=== PATIENT | male | born 1950 | race Caucasian/White ===

== ENCOUNTER → 2017-08-02 11:04 | Outpatient (CLI) | payer MEDICARE, OTHER, SELFPAY ==
--- NOTE | 2017-08-03 09:40 | PFT ---
INTRODUCTION: The patient is a 67-year-old male currently under the care of myself the presents for pulmonary function testing secondary to a diagnosis of COPD. Respiratory therapy reports good patient effort and reports no other concerns. Bronchodilators were used during testing. INTERPRETATION: Forced expiration spirometry demonstrates the presence of a mild large airways obstructive ventilatory defect. There was no significant response to aerosolized bronchodilators, based upon strict ATS criteria. Spirograms are of good quality and do not plateau indicating slow emptying of the lungs. Body plethysmography was performed and reveals lung volumes to be within normal limits. Diffusing capacity by single breath CO is within normal limits at 85% of predicted. There has been interval improvement in the patient's breathing test since they were last completed in 2016. IMPRESSION: These pulmonary function studies demonstrate the presence of an irreversible mild large airways obstructive ventilatory defect. There has been interval improvement the patient's PFTs since 2016.
== END ==
PROVIDERS: Family Provider Preventive Medicine Occupational Medicine; PCP Preventive Medicine Occupational Medicine; Visit Provider Internal Medicine Critical Care Medicine
DX: G47.33 Obstructive sleep apnea (adult) (pediatric) (principal); E66.9 Obesity, unspecified; J44.9 Chronic obstructive pulmonary disease, unspecified
CPT/HCPCS: 94060; 94726; 94729

== ENCOUNTER → 2017-08-30 09:55 | Outpatient (CLI) | payer MEDICARE, OTHER, SELFPAY ==
[2017-08-30 10:51] LABS: Microalbumin,Random Urine 24.4 mg/L (NO RANGE EST.)
[2017-08-30 10:56] LABS: Hemoglobin A1c 7.1 % (4.2-6.3)
[2017-08-30 11:10] LABS: ALB/GLOB Ratio 0.8 RATIO (0.9-2.4); AST(SGOT) 19 U/L (15-37); Alanine Aminotransfer ALT/SGPT 33 U/L (16-61); Albumin, Serum 3.4 g/dL (3.2-5.0); Alkaline Phosphatase 110 U/L (45-117); Anion Gap 11 (5-15); BUN 18 mg/dL (7-18); BUN/Creat Ratio 21.2 RATIO (10-20); Calcium,Total 8.6 mg/dL (8.5-10.1); Chloride 102 mmol/L (98-107); Cholesterol 87 mg/dL (200); Creatinine, Serum 0.85 mg/dL (0.70-1.30); EST Glomerular Filtration Rate 96 mL/min (>60); Est Glom Filt Rate - Afr Amer 116 mL/min (>60); Globulin 4.4 g/dL (2.2-4.2); Glucose 124 mg/dL (74-106); High Density Lipoprotein 33 mg/dL; Potassium 4.1 mmol/L (3.5-5.1); Protein, Total 7.8 g/dL (6.4-8.2); Sodium Level 140 mmol/L (136-145); Triglycerides 45 mg/dL; Very Low Density Lipoprotein 9 mg/dL (5-40)
== END ==
PROVIDERS: Family Provider Family Medicine; PCP Family Medicine; Visit Provider Internal Medicine Endocrinology, Diabetes & Metabolism
DX: E11.21 Type 2 diabetes mellitus with diabetic nephropathy (principal); E78.2 Mixed hyperlipidemia
CPT/HCPCS: 36415; 80053; 80061; 82043; 82570; 83036

== ENCOUNTER → 2017-12-07 09:43 | Outpatient (CLI) | payer MEDICARE, OTHER, SELFPAY ==
[2017-12-07 10:57] LABS: Hemoglobin A1c 6.6 % (4.2-6.3)
[2017-12-07 11:22] LABS: ALB/GLOB Ratio 0.7 RATIO (0.9-2.4); AST(SGOT) 20 U/L (15-37); Alanine Aminotransfer ALT/SGPT 36 U/L (16-61); Albumin, Serum 3.2 g/dL (3.2-5.0); Alkaline Phosphatase 99 U/L (45-117); Anion Gap 11 (5-15); BUN 21 mg/dL (7-18); BUN/Creat Ratio 23.3 RATIO (10-20); Calcium,Total 9.1 mg/dL (8.5-10.1); Chloride 101 mmol/L (98-107); EST Glomerular Filtration Rate 90 mL/min (>60); Est Glom Filt Rate - Afr Amer 108 mL/min (>60); Globulin 4.3 g/dL (2.2-4.2); Glucose 158 mg/dL (74-106); Protein, Total 7.5 g/dL (6.4-8.2); Sodium Level 140 mmol/L (136-145)
== END ==
PROVIDERS: Family Provider Family Medicine; PCP Family Medicine; Visit Provider Internal Medicine Endocrinology, Diabetes & Metabolism
DX: E11.42 Type 2 diabetes mellitus with diabetic polyneuropathy (principal)
CPT/HCPCS: 36415; 80053; 83036

== ENCOUNTER → 2018-01-10 12:32 | Outpatient (CLI) | payer MEDICARE, OTHER, SELFPAY ==
[2018-01-10 14:06] LABS: PSA,Total - Annual Screen 1.21 ng/mL (0.00-4.00)
== END ==
PROVIDERS: Family Provider Family Medicine; PCP Family Medicine; Visit Provider Family Medicine
DX: Z12.5 Encounter for screening for malignant neoplasm of prostate (principal); R39.11 Hesitancy of micturition
CPT/HCPCS: 36415; 84153; G0103

== ENCOUNTER → 2018-03-31 09:55 | Outpatient (CLI) | payer MEDICARE, OTHER, SELFPAY ==
[2018-02-20 14:47] VITALS: BMI 48.7
[2018-03-31 11:14] LABS: ALB/GLOB Ratio 0.8 RATIO (0.9-2.4); AST(SGOT) 20 U/L (15-37); Alanine Aminotransfer ALT/SGPT 42 U/L (16-61); Albumin, Serum 3.3 g/dL (3.2-5.0); Alkaline Phosphatase 118 U/L (45-117); Anion Gap 9 (5-15); BUN 18 mg/dL (7-18); BUN/Creat Ratio 18.4 RATIO (10-20); Calcium,Total 8.6 mg/dL (8.5-10.1); Chloride 101 mmol/L (98-107); Creatinine, Serum 0.98 mg/dL (0.70-1.30); EST Glomerular Filtration Rate 82 mL/min (>60); Est Glom Filt Rate - Afr Amer 99 mL/min (>60); Globulin 4.4 g/dL (2.2-4.2); Glucose 175 mg/dL (74-106); Protein, Total 7.7 g/dL (6.4-8.2); Sodium Level 137 mmol/L (136-145)
== END ==
PROVIDERS: Family Provider Family Medicine; PCP Family Medicine; Referring Provider Internal Medicine Endocrinology, Diabetes & Metabolism; Visit Provider Internal Medicine Endocrinology, Diabetes & Metabolism
DX: E11.21 Type 2 diabetes mellitus with diabetic nephropathy (principal)
CPT/HCPCS: 36415; 80053; 83036

== ENCOUNTER → 2018-06-29 09:50 | Outpatient (CLI) | payer MEDICARE, OTHER, SELFPAY ==
[2018-05-04 09:45] VITALS: BMI 48.9
[2018-06-29 11:06] LABS: ALB/GLOB Ratio 0.7 RATIO (0.9-2.4); AST(SGOT) 44 U/L (15-37); Alanine Aminotransfer ALT/SGPT 38 U/L (16-61); Albumin, Serum 3.1 g/dL (3.2-5.0); Alkaline Phosphatase 106 U/L (45-117); Anion Gap 5 (5-15); BUN 23 mg/dL (7-18); BUN/Creat Ratio 23.4 RATIO (10-20); Calcium,Total 8.6 mg/dL (8.5-10.1); Chloride 104 mmol/L (98-107); Creatinine, Serum 0.98 mg/dL (0.70-1.30); EST Glomerular Filtration Rate 81 mL/min (>60); Est Glom Filt Rate - Afr Amer 98 mL/min (>60); Globulin 4.7 g/dL (2.2-4.2); Glucose 167 mg/dL (74-106); Potassium 4.4 mmol/L (3.5-5.1); Protein, Total 7.8 g/dL (6.4-8.2); Sodium Level 134 mmol/L (136-145)
[2018-06-29 11:08] LABS: Hemoglobin A1c 7.8 % (4.2-6.3)
== END ==
PROVIDERS: Family Provider Family Medicine; PCP Family Medicine; Referring Provider Internal Medicine Endocrinology, Diabetes & Metabolism; Visit Provider Internal Medicine Endocrinology, Diabetes & Metabolism
DX: E11.21 Type 2 diabetes mellitus with diabetic nephropathy (principal)
CPT/HCPCS: 80053; 83036

== ENCOUNTER → 2018-07-03 16:07 | Outpatient (CLI) | payer MEDICARE, OTHER, SELFPAY ==
[2018-05-04 09:45] VITALS: BMI 48.9
--- NOTE | 2018-07-03 16:10 | MRI_ITS ---
STUDY: MRI RIGHT ANKLE WITHOUT CONTRAST REASON FOR EXAM: Chronic heel pain for years, evaluate for Achilles tendinitis. TECHNIQUE: Standardized fat and water weighted pulse sequences were obtained in all 3 orthogonal planes. COMPARISON: None. FINDINGS: There is edema in the subcutis adipose space. Normal posterior tibialis tendon. Normal flexor digitorum longus tendon. Normal flexor hallucis longus tendon. There is a longitudinal split of the perimalleolar peroneus brevis tendon (T1 axial images 13-17). Normal peroneus longus tendon. Normal tibialis anterior tendon. Normal extensor hallucis longus tendon. Normal extensor digitorum longus tendons. There is mild insertional Achilles tendinosis and a small low-grade partial tear of the anterior surface of the Achilles tendon insertion (inversion recovery sagittal images 13, 14) measuring 0.7 cm in length. There is very mild retrocalcaneal bursitis (inversion recovery axial series 10 image 20). There is a small posterior calcaneal enthesophyte (T1 sagittal image 13). Normal plantar fascia. There is a small plantar calcaneal enthesophyte. There is atrophy with fat replacement of the abductor digiti minimi muscle (T1 sagittal images 6-8). Normal distal tibiofibular syndesmotic ligamentous complex. There is a chronic tear of the anterior talofibular ligament (T2 axial image 15). Normal calcaneofibular and posterior talofibular ligaments. Normal subtalar ligaments and sinus tarsi. Normal deltoid ligamentous complexes. Normal plantar calcaneonavicular (spring) ligament. Normal tibiotalar articulation. Normal talar dome. Normal subtalar articulations. Normal talonavicular articulation. Normal calcaneocuboid articulation. Normal navicular-cuneiform articulations. There is a small subchondral cyst in the distal cuboid (inversion recovery sagittal image 8). MRI/Lower Ext Joint Only (Routine) IMPRESSION: Mild insertional Achilles tendinosis with small low-grade insertional Achilles tendon tear and very mild retrocalcaneal bursitis. Longitudinal split of the peroneus brevis tendon. Chronic tear of the anterior talofibular ligament. Atrophy of the abductor digiti minimi muscle. No calcaneal stress fracture. Electronically Signed: Eric Rey MD at 7:54 EDT Tel , Service support ,
== END ==
PROVIDERS: Family Provider Family Medicine; PCP Family Medicine; Referring Provider Podiatrist; Visit Provider Podiatrist
DX: M76.61 Achilles tendinitis, right leg (principal); M77.31 Calcaneal spur, right foot
CPT/HCPCS: 73721

== ENCOUNTER 2018-09-13 11:00 | Outpatient (RCR) | payer MEDICARE, OTHER, SELFPAY ==
[2018-05-04 09:45] VITALS: BMI 48.9
--- NOTE | 2018-08-16 14:02 | HP.PTEVAL ---
Patient's Visit Information CYN MARTINEZ Jr. is a 68 year old M referred to Physical Therapy by Alec Hicks DPM with a diagnosis of LEFT ACHILLLES ACHILLES TENDONITIS. Date of Evaluation: 08/16/18 Physical Therapist: Porfirio Sánchez PT, Cert MDT, OCS - Visit Plan Frequency: 2x /Week Duration: 4 Weeks Plan: INTERVENTIONS US /STM HAWK ,CALF STICK ,ESTIM/CP ,GRADED STRENGTHENING - Subjective Findings: This 68 y/o male presents to physical therapy left achilles tendonitis . Patient has had tendonitis several years. Patient had MRI showed spur ,partial teat. Patient tried PT in past. Patient also had EPAP 6 treatments.Patient location achilles tendon sharp pain. Aggraveting symptoms standing ,walking. Symptoms better with rest.Denies parathesia/ Patient has comorbities DM. Patient condition affects QOL. Patient symptoms worse with ADL'S and housework tasks. VOCATION: retired. SOCAIL: - Pain Left Ankle Pain Intensity (Out of 10): 8 Pain Intensity Range: 10 - Objective POSTURE: pes planus. NEURO: denies parathesia/tingling. PALAPTION: tender achilles tendon. GAIT: antalgic gait left side. AROM: DF 5 degrres,PF 65 degrees,inversion 45 degrees,10 eversion. MMT: anterior tibials 4/5 ,perneous/posterior tibials,4/5 G-S 4/5. PROPRIOCEPTION: impaired - Goals Goal 1:: Patient to be Independant with HEP Goal Time Frame: 4-6 Weeks Goal 2:: Patient to decrease lumbar pain by 50% or greater to improve function with walking. Goal Time Frame: 4-6 Weeks Goal 3:: Paatient improve LFES score 10 points to improve QOL. Goal Time Frame: 4-6 Weeks Goal 4:: Patient to increase strength G-S to 4/5 to improve gait. Goal Time Frame: 4-6 Weeks Goal 5:: Patient able to perform ADL'S and houswork tasks with min limitations with waalking/standing. Goal Time Frame: 4-6 Weeks - Rehabilitation Potential Physical Therapy Diagnosis: This patient has achilles tendon tendonitis impairs walking ,standing ,with weakness pain affect ADL'S and function . Rehabilitation Potential: Good - Anticipated Interventions Patient/Client Instruction: Educate patient on: Condition, Plan of Care For the Purpose of:: To decrease pain, To increase ROM, To improve muscle performance and motor function, To increase tolerance to activity/condition/position, To improve performance and independence with ADL's, To improve health of tissue, To decrease soft tissue restriction, To increase flexibility/ROM, To improve ability to perform tasks related to life management Therapeutic Exercise to Include: Strength training, Flexibilty training, Active ROM Comment: ANKLE For the Purpose of:: To decrease pain, To increase ROM, To improve muscle performance and motor function, To improve ability to perform ADL's, To increase tolerance to activity/condition/position, To improve ability of physical actions for home/community/work/leisure, To decrease soft tissue restriction, To increase flexibility/ROM, To improve endurance, To reduce risk of recurrence, To improve ability to perform tasks related to life management Manual Therapy Techniques to Include: Mobilization Comment: HAWK For the Purpose of:: To decrease pain, To increase ROM, To improve health of tissue, To decrease soft tissue restriction, To increase flexibility/ROM TENS: Yes IF ES: Yes Cryotherapy (ice pack, ice massage): Yes Thermo therapy (hot pack): Yes Ultrasound (thermal/non thermal): Yes For the Purpose of:: To decrease pain, To increase ROM, To improve nutrient delivery to tissue, To increase oxygenation perfusion Thank you for the opportunity to evaluate your patient. For Medicare and Medicare HMO plans, please review the plan of care and approve it. It will need to be FAXED BACK to us at [phone] for Medicare purposes. For Medicare only, by signing this I certify the plan of care. Please let me know if there are questions or concerns regarding this plan of care. Physician Signature: Date:
--- NOTE | 2018-09-13 11:34 | HP.PTDCSUM ---
HP - PT D/C Summary It has been my pleasure to treat CYN MARTINEZ Jr. under orders from Alec Hicks DPM, for the diagnosis of LEFT ACHILLLES ACHILLES TENDONITIS for a total of 8 visit(s). Discharge Date: Please see the following information for a summary of their discharge status. - Subjective Subjective: Doing alot better. walking and and ADL'S. Pain is less - Pain Left Ankle Pain Intensity (Out of 10): 1 back Pain Intensity (Out of 10): 0 - Overall Improvement % Improvement: 75 - Objective Objective/Function: POSTURE: MILD PES PLNAUS. PALPATION: unremarkable. AROM: ankle WFL. GAIT: normal austyn mild decrease stance time. MMT: 4/5 ankle - Goals Goal 1:: Patient to be Independant with HEP Goal Progress: Goal Met Goal 2:: Patient to decrease lumbar pain by 50% or greater to improve function with walking. Goal Progress: Goal Met Goal 3:: Paatient improve LFES score 10 points to improve QOL. Goal Progress: Goal Met Goal 4:: Patient to increase strength G-S to 4/5 to improve gait. Goal Progress: Goal Met Goal 5:: Patient able to perform ADL'S and houswork tasks with min limitations with waalking/standing. Goal Progress: Goal Met - Plan Plan: d/c to hep - D/C Information If there are questions or concerns regarding this patient's physical therapy, please feel free to call me at [phone]. Thank you for the referral of this patient. Sincerely, Porfirio Sánchez, PT, Cert MDT, OCS
== END 2018-09-13 19:00 | disposition home or self-care (01) ==
LOC: PT 11:00
PROVIDERS: Family Provider Family Medicine; PCP Family Medicine; Referring Provider Podiatrist; Visit Provider Podiatrist
DX: M76.62 Achilles tendinitis, left leg (principal)
CPT/HCPCS: 97035; 97110; 97140; 97162; 97530

== ENCOUNTER → 2018-09-27 09:12 | Outpatient (CLI) | payer MEDICARE, OTHER, SELFPAY ==
[2018-05-04 09:45] VITALS: BMI 48.9
[2018-09-27 11:00] LABS: Hemoglobin A1c 7.4 % (4.2-6.3)
[2018-09-27 11:05] LABS: Microalbumin,Random Urine 15.9 mg/L (NO RANGE EST.)
[2018-09-27 11:13] LABS: ALB/GLOB Ratio 0.7 RATIO (0.9-2.4); AST(SGOT) 21 U/L (15-37); Alanine Aminotransfer ALT/SGPT 35 U/L (16-61); Albumin, Serum 3.2 g/dL (3.2-5.0); Alkaline Phosphatase 112 U/L (45-117); Anion Gap 9 (5-15); BUN 17 mg/dL (7-18); BUN/Creat Ratio 17.8 RATIO (10-20); Calcium,Total 8.9 mg/dL (8.5-10.1); Chloride 101 mmol/L (98-107); Creatinine, Serum 0.96 mg/dL (0.70-1.30); EST Glomerular Filtration Rate 84 mL/min (>60); Est Glom Filt Rate - Afr Amer 101 mL/min (>60); Globulin 4.5 g/dL (2.2-4.2); Glucose 132 mg/dL (74-106); Potassium 3.7 mmol/L (3.5-5.1); Protein, Total 7.7 g/dL (6.4-8.2); Sodium Level 138 mmol/L (136-145)
== END ==
PROVIDERS: Family Provider Family Medicine; PCP Family Medicine; Referring Provider Internal Medicine Endocrinology, Diabetes & Metabolism; Visit Provider Internal Medicine Endocrinology, Diabetes & Metabolism
DX: E11.21 Type 2 diabetes mellitus with diabetic nephropathy (principal)
CPT/HCPCS: 36415; 80053; 82043; 82570; 83036

== ENCOUNTER → 2018-12-22 13:46 | Outpatient (CLI) | payer MEDICARE, OTHER, SELFPAY ==
[2018-10-31 06:35] VITALS: BMI 48.9
--- NOTE | 2018-12-22 13:55 | ECHOCS_ITS ---
Reason For Study: ABN EKG Procedure This was a 2D Doppler, Color Flow transthoracic echocardiogram. The study was technically difficult. Contrast injection was performed. Exam performed in department. Left Ventricle Normal LV size. 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 Left ventricular systolic function is normal. The estimated ejection fraction is 70 %. No evidence for diastolic dysfunction. No regional wall motion abnormalities noted. Right Ventricle Normal RV size. Normal systolic function. Atria The left atrium is mildly enlarged. No doppler evidence for ASD. Mitral Valve There is no mitral annular calcification. Normal mitral valve. Trivial mitral valve insufficiency. Tricuspid Valve Normal tricuspid valve. Trivial tricuspid valve insufficiency. Right ventricular systolic pressure estimated to be 22 mmHg. Aortic Valve Trisinus/trileaflet aortic valve. Mild focal aortic valve thickening. Mild focal aortic valve calcification. Pulmonic Valve The pulmonic valve is not well visualized. Great Vessels Normal sized aortic root. Pericardium/Pleural No pericardial effusion. Medication 22 gauge I.V. with prn adaptor inserted into right arm. Diluted definity 4ml given slow IV push to enhance endocardial definition. MMode/2D Measurements & Calculations RVDd: 4.3 cm LVOT diam: 2.2 cm Ao root diam: 3.6 cm LVOT area: 3.9 cm2 LAV(MOD-bp): 74.4 ml LA dimension(2D): 4.9 cm LA A4 area: 21.4 cm2 LAV(MOD-bp) Indexed: 29.2 ml/m2 LAV(MOD-sp2): 82.8 ml LAV(MOD-sp4): 58.2 ml RA A4 area: 18.4 cm2 Time Measurements MV dec time: 0.27 sec Doppler Measurements & Calculations MV E max brad: 84.6 cm/sec Lat Peak E' Brad: 17.2 cm/sec Med Peak E' Brad: 10.5 cm/sec MV A max brad: 107.6 cm/sec E/E' lat: 4.9 E/E' med: 8.0 MV E/A: 0.79 Ao V2 max: 210.7 cm/sec LV V1 max: 157.7 cm/sec SV(LVOT): 124.7 ml Ao max P.8 mmHg LV V1 max P.9 mmHg Ao V2 mean: 157.6 cm/sec LV V1 mean P.7 mmHg Ao mean P.9 mmHg LV V1 mean: 125.5 cm/sec Ao V2 VTI: 38.1 cm LV V1 VTI: 31.8 cm ANTWAN(I,D): 3.3 cm2 ANTWAN(V,D): 2.9 cm2 PA V2 max: 82.6 cm/sec TR max brad: 216.7 cm/sec TR max P.8 mmHg Interpretation Summary The study was technically difficult. Contrast injection was performed. 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 Left ventricular systolic function is normal. The estimated ejection fraction is 70 %. The left atrium is mildly enlarged. Trivial mitral valve insufficiency. Trivial tricuspid valve insufficiency. Mild focal aortic valve thickening. Mild focal aortic valve calcification. Right ventricular systolic pressure estimated to be 22 mmHg. No evidence for diastolic dysfunction. Ordering Physician: Leonel Booker Referring Physician: SOUMYA MCDANIEL Performed By: Kylie Johnson RDCS, RVT
== END ==
PROVIDERS: Family Provider Family Medicine; PCP Family Medicine; Referring Provider Internal Medicine Hematology & Oncology; Visit Provider Internal Medicine Hematology & Oncology
DX: R94.31 Abnormal electrocardiogram [ECG] [EKG] (principal); I42.9 Cardiomyopathy, unspecified
CPT/HCPCS: 93306; Q9957; A4216; C8929

== ENCOUNTER → 2019-01-20 09:11 | Outpatient (CLI) | payer MEDICARE, OTHER, SELFPAY ==
[2018-10-31 06:35] VITALS: BMI 48.9
[2019-01-20 10:57] LABS: Hemoglobin A1c 6.8 % (4.2-6.3)
[2019-01-20 11:15] LABS: ALB/GLOB Ratio 0.8 RATIO (0.9-2.4); AST(SGOT) 20 U/L (15-37); Alanine Aminotransfer ALT/SGPT 33 U/L (16-61); Albumin, Serum 3.3 g/dL (3.2-5.0); Alkaline Phosphatase 100 U/L (45-117); Anion Gap 8 (5-15); BUN 22 mg/dL (7-18); BUN/Creat Ratio 23.6 RATIO (10-20); Calcium,Total 8.7 mg/dL (8.5-10.1); Chloride 104 mmol/L (98-107); Cholesterol 86 mg/dL (200); Creatinine, Serum 0.93 mg/dL (0.70-1.30); EST Glomerular Filtration Rate 86 mL/min (>60); Est Glom Filt Rate - Afr Amer 104 mL/min (>60); Globulin 4.3 g/dL (2.2-4.2); Glucose 136 mg/dL (74-106); High Density Lipoprotein 32 mg/dL; Potassium 4.1 mmol/L (3.5-5.1); Protein, Total 7.6 g/dL (6.4-8.2); Sodium Level 140 mmol/L (136-145); Thyroid Stim Hormone (TSH) 1.33 uIU/mL (0.358-3.74); Triglycerides 56 mg/dL; Very Low Density Lipoprotein 11 mg/dL (5-40)
== END ==
PROVIDERS: Family Provider Family Medicine; PCP Family Medicine; Referring Provider Internal Medicine Endocrinology, Diabetes & Metabolism; Visit Provider Internal Medicine Endocrinology, Diabetes & Metabolism
DX: E11.21 Type 2 diabetes mellitus with diabetic nephropathy (principal); E78.2 Mixed hyperlipidemia; E04.9 Nontoxic goiter, unspecified
CPT/HCPCS: 36415; 80053; 80061; 83036; 84443

== ENCOUNTER → 2019-02-15 09:57 | Outpatient (CLI) | payer MEDICARE, OTHER, SELFPAY ==
[2018-10-31 06:35] VITALS: BMI 48.9
[2019-02-15 10:56] LABS: Anion Gap 6 (5-15); BUN 20 mg/dL (7-18); BUN/Creat Ratio 20.3 RATIO (10-20); Calcium,Total 8.9 mg/dL (8.5-10.1); Chloride 101 mmol/L (98-107); Creatinine, Serum 0.99 mg/dL (0.70-1.30); EST Glomerular Filtration Rate 80 mL/min (>60); Est Glom Filt Rate - Afr Amer 97 mL/min (>60); Glucose 134 mg/dL (74-106); Potassium 3.9 mmol/L (3.5-5.1); Sodium Level 137 mmol/L (136-145)
== END ==
PROVIDERS: Family Provider Family Medicine; PCP Family Medicine; Referring Provider Internal Medicine Endocrinology, Diabetes & Metabolism; Visit Provider Internal Medicine Endocrinology, Diabetes & Metabolism
DX: E11.42 Type 2 diabetes mellitus with diabetic polyneuropathy (principal)
CPT/HCPCS: 36415; 80048

== ENCOUNTER → 2019-04-30 11:11 | Outpatient (CLI) | payer MEDICARE, OTHER, SELFPAY ==
[2019-02-20 13:45] VITALS: BMI 47.4
[2019-04-30 13:23] LABS: Hemoglobin A1c 7.4 % (4.2-6.3)
[2019-04-30 13:25] LABS: ALB/GLOB Ratio 0.7 RATIO (0.9-2.4); AST(SGOT) 17 U/L (15-37); Alanine Aminotransfer ALT/SGPT 33 U/L (16-61); Albumin, Serum 3.3 g/dL (3.2-5.0); Alkaline Phosphatase 105 U/L (45-117); Anion Gap 4 (5-15); BUN 24 mg/dL (7-18); BUN/Creat Ratio 23.5 RATIO (10-20); Chloride 104 mmol/L (98-107); Creatinine, Serum 1.02 mg/dL (0.70-1.30); EST Glomerular Filtration Rate 77 mL/min (>60); Est Glom Filt Rate - Afr Amer 94 mL/min (>60); Globulin 4.5 g/dL (2.2-4.2); Glucose 119 mg/dL (74-106); Potassium 3.8 mmol/L (3.5-5.1); Protein, Total 7.8 g/dL (6.4-8.2); Sodium Level 137 mmol/L (136-145)
[2019-05-04 17:13] LABS: Thyroid Stim Hormone (TSH) 1.42 uIU/mL (0.358-3.74)
== END ==
PROVIDERS: Family Provider Family Medicine; PCP Family Medicine; Referring Provider Internal Medicine Endocrinology, Diabetes & Metabolism; Visit Provider Internal Medicine Endocrinology, Diabetes & Metabolism
DX: E11.42 Type 2 diabetes mellitus with diabetic polyneuropathy (principal)
CPT/HCPCS: 36415; 80053; 83036; 84443

== ENCOUNTER → 2019-05-04 15:30 | Outpatient (CLI) | payer MEDICARE, OTHER, SELFPAY ==
[2019-02-20 13:45] VITALS: BMI 47.4
== END ==
PROVIDERS: Family Provider Family Medicine; PCP Family Medicine
DX: E04.9 Nontoxic goiter, unspecified (principal)

== ENCOUNTER → 2019-05-23 15:36 | Outpatient (CLI) | payer MEDICARE, OTHER, SELFPAY ==
[2019-05-15 07:23] VITALS: BMI 47.7
--- NOTE | 2019-05-23 15:40 | RAD_ITS ---
STUDY: X-RAY - CERVICAL SPINE REASON FOR EXAM: Male, 69 years old. Chronic neck pain x 3 months. NKI. Shooting pain in Rt arm and numbness in Rt fingers. TECHNIQUE: 3 view(s) of the cervical spine were obtained. COMPARISON: None FINDINGS: Normal anterior atlantoaxial articulation. Normal odontoid process. There is reversal of the normal cervical lordosis. There is multi-level endplate spondylosis. There is multi-level degenerative disc disease with multilevel disc space narrowing. The soft tissue structures are unremarkable. There is no demonstrated fracture of the cervical spine. RAD/Cerv Spine 2 or 3 Views IMPRESSION: No acute abnormality. Multilevel moderate degenerative changes. Electronically Signed: Kelby To MD at 22:03 EST , Service support ,
--- NOTE | 2019-05-23 15:40 | RAD_ITS ---
STUDY: X-RAY - THORACIC SPINE REASON FOR EXAM: Male, 69 years old. Pain x 3 months. NKI. Shooting pain down Rt arm. TECHNIQUE: 3 view(s) of the thoracic spine were obtained. COMPARISON: None. FINDINGS: Normal kyphosis of the thoracic spine. There is mild levoconvex scoliosis. There is multilevel endplate spondylosis of the thoracic vertebrae. There is multilevel disc space narrowing of the thoracic spine. No fractures. No dislocations. The soft tissue structures are unremarkable. RAD/Thoracic Spine 3 Views IMPRESSION: Degenerative changes. No acute abnormality. Electronically Signed: Kelby To MD at 21:59 EST , Service support ,
== END ==
PROVIDERS: PCP Family Medicine; Referring Provider Nurse Practitioner Family; Visit Provider Nurse Practitioner Family
DX: M54.2 Cervicalgia (principal); M54.6 Pain in thoracic spine
CPT/HCPCS: 72040; 72072

== ENCOUNTER → 2019-06-05 16:12 | Outpatient (CLI) | payer MEDICARE, OTHER, SELFPAY ==
[2019-05-30 09:08] VITALS: BMI 47.7
--- NOTE | 2019-06-05 16:13 | MRI_ITS ---
STUDY: MRI CERVICAL SPINE WITHOUT CONTRAST REASON FOR EXAM: Male, 69 years old. Neck pain TECHNIQUE: Standardized fat and water weighted pulse sequences were obtained in the sagittal and axial planes. COMPARISON: 23 May 2019 FINDINGS: Examination is mildly degraded due to technical problems. There is severe elevation of image noise. Diagnostic information is available. Craniocervical junction is intact and aligned. There is mild reversal of cervical lordosis without subluxation. Marrow is normal. There is multilevel disc/endplate degenerative change. There is severe elevation of BMI and body habitus. There is focal accumulation subcutaneous fat in the dorsal cervical region. C2-C3 has right central disc osteophyte with mild right-sided cord compression. Foramina are patent bilaterally. C3-C4 has right central disc endplate osteophyte with mild right-sided cord compression. There is severe right foraminal stenosis with patent left foramen. C4-C5 has mild central spondylotic cord compression. Foramina are not seen. Remainder of the levels have patent thecal sac. Foramina are poorly evaluated. Spinal cord is normal in size and shape. Signal is not reliably evaluated. MRI/Spine Cervical (Routine) IMPRESSION: 1. Mild right sided cord compression at C2-C3, C3-C4, mild central compression at C4-C5. 2. Severe elevation of BMI. 3. Dorsal cervical lipodystrophy. This has a broad metabolic differential diagnosis and does not require further dedicated local imaging. Endocrinology referral is advised. Electronically Signed: Rukhsana Steward, at 17:59 EST Tel , Service support ,
== END ==
PROVIDERS: PCP Family Medicine; Referring Provider Family Medicine; Visit Provider Family Medicine
DX: M50.90 Cervical disc disorder, unspecified, unspecified cervical region (principal)
CPT/HCPCS: 72141

== ENCOUNTER 2019-07-09 13:00 | Outpatient (RCR) | payer MEDICARE, OTHER, SELFPAY ==
[2019-05-11 15:30] VITALS: BMI 47.4
[2019-05-15 07:23] VITALS: BMI 47.7
--- NOTE | 2019-05-21 15:12 | HP.PTEVAL ---
Patient's Visit Information CYN MARTINEZ Jr. is a 69 year old M referred to Physical Therapy by BLACK Knott with a diagnosis of LOW BACK PAIN. Date of Evaluation: 05/21/19 Physical Therapist: Kathi Duong, PT, Cert MDT - Visit Plan Frequency: 2-3x /Week Duration: 4-6 Weeks Plan: IF NEW ORDER REC'D FROM DR. MCDANIEL: CERVICAL ROM, STRENGTHENING AND ENDURANCE TRAINING. THORACIC ROM AND STRENGTHENING. POSTURE CORRECTION/STRENGTHENING, INSTRUCTION IN APPROPRIATE BODY MECHANICS AND ACTIVITY MODIFICATIONS. RUKHSANA UE ROM, STRETCHING AND STRENGTHENING. HEP INSTRUCTION. PATIENT IS AGREEABLE. - Subjective Findings: Work/Leisure: RETIRED. Disability: NO. Present symptoms: RIGHT NECK PAIN AND RIGHT MID BACK PAIN > LEFT. INTERMITTENT RIGHT RIB CAGE AREA PAIN. PATIENT DENIES RUKHSANA UE AND LE PAIN, NUMBNESS AND TINGLING. HE REPORTS HE DOES HAVE SOME LOW BACK PAIN BUT THE PAIN HE IS HERE FOR TODAY IS HIGHER UP. Present since: ABOUT 6 MONTHS AGO. Pain Scale: WORST 7/10, LEAST 5/10. Currently: 5/10 - WORSENING. Commenced as a result of: NO APPARENT REASON. Symptoms at onset: TIGHT BACK MUSCLES. Worse: LYING DOWN TO GO TO BED. GETTING IN AND OUT OF BED IS ABOUT THE WORST. STILL GOING TO [employer] AND WALKING ON [place] AND DOES OK. INCREASED PAIN WITH BIKE THOUGH. ALSO TOLERATING SOME LEG EX'S AT [employer]. 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 Disturbed sleep: YES. Previous history/Previous treatment: SEVERAL YEARS AGO WAS WORKING AT [employer] AND WENT THROUGH PT FOR LBP - WORKERS COMP. SEEMED TO RESLOLVE. FALL TEENAGER BUT RECOVERED. NO CHIRO. NO JOSSE'S. NO BACK SURGERY. Coughing/sneezing/straining: NEGATIVE. DEEP BREATHING: POSITIVE. Gait: NORMAL. Accidents: NO. AND PATIENT DENIES HAVING ANY FALLS. Unexplained weight loss: NO. Imaging: PATIENT REPORTS PET SCAN FOR CANCER DEC 2018 - NORMAL. FULL BODY X-RAYS - 20 + PICTURES - NORMAL. WAS HAVING PAIN BEFORE THE PET SCAN. PMH: DX OF SMOLDERING MYELOMA - ABNORMAL CELLS IN BONE MARROW BUT OTHER TESTING NEGATIVE SO FAR. FOLLOW UP WITH ONCOLOGIST PENDING MAY 2019. CURRENTLY DOES NOT HAVE A DX OF CANCER. IDDM. NEUROPATHY. COPD. SLEEP APNEA. HTN. Recent major surgery: NO - Objective GOES BY GRZEGORZ. Sitting/Standing Posture: POOR. FH AND ROUNDED SHOULDERS. NO TORTICOLLIS. Lordosis: REDUCED. Lateral shift: NO. Relevant shift: N/A. Active Correction of posture: BETTER. Other Observations: INDEP GAIT AND TRANSFERS. DECREASED CADANCE. Motor deficit: RUKHSANA UE'S AND LE'S WFL. Sensory deficit: RUKHSANA UE AND LE LIGHT TOUCH SENSATION IS SYMMETRICAL - NOT SPECIFICALLY TESTED FOR NEUROPATHY. ROM deficit: FULL RUKHSANA UE ROM AND ROM TESTING DOES NOT INCREASE PAIN. TIGHT RUKHSANA LE HS'S AND GASTROC SOLEUS COMPLEX'S. Reflexes: NT. Dural Signs: POSITIVE RIGHT UE. Lumbar/THORACIC mvmt loss. flex - MOD - GETS REAL TIGHT POINTING TO RIGHT MID BACK AND STATES LESS THAN LEFT. ext - MARIA TERESA - INCREASES MID BACK PAIN RIGHT > LEFT. R SG - MARIA TERESA - INCREASES MID BACK PAIN RIGHT > LEFT. L SG - MOD. THORACIC RIGHT ROT - MOD AND PAIN PROVOKING. THORACIC LEFT ROT - MOD AND PAIN PROVOKING. CERVICAL MVMT LOSS: FLEX - NIL. PRO - NIL. EXT - MOD - INCRASES RIGHT NECK AND RIGHT SCAP AREA PAIN. RET - MARIA TERESA - INCRASES RIGHT NECK AND RIGHT SCAP AREA PAIN. R ROT - MOD. L ROT - MOD AND PROVOKES RIGHT NECK PAIN. RIGHT SB - MOD. LEFT SB - MOD. Core strength: POOR. Palpation: NO ACUTE THORACIC OR LUMBAR REGION TENDERNESS. TREATMENT: NEUROMUSCULAR REEDUCATION - RETRAINING OF MVMT AND POSTURE FOR SITTING, LYING AND STANDING ACTIVITIES. THIS PT CALL DARRYN WONG CNP TO REQUEST AN ORDER TO EVALUATE AND TREAT THIS PATIENTS NECK AND UPPER BACK PAIN. - Goals Goal 1:: DECREASE C/O NECK AND MID BACK PAIN Goal Time Frame: 4-6 Weeks Goal 2:: IMPROVE PERSONAL CARE, LIFTING, BED TRANSFER, BED MOBILITY, AND HOMEMAKING (ESPECIALLY TWISTING) FUNCTION Goal Time Frame: 4-6 Weeks Goal 3:: INSTRUCT IN PROPHYLASIS Goal Time Frame: 4-6 Weeks - Rehabilitation Potential Rehabilitation Potential: Fair - Anticipated Interventions Patient/Client Instruction: Educate patient on: Condition, Plan of Care, Risk Factors, Benefits of Fitness Program For the Purpose of:: To improve self management Therapeutic Exercise to Include: Strength training, Endurance training, Body mechanics, Postural training, Flexibilty training, Dynamic Lumbar Stabilization, Scapular Strength/Stabilization For the Purpose of:: To decrease pain, To increase ROM, To improve muscle performance and motor function, To increase tolerance to activity/condition/position, To improve ability of physical actions for home/community/work/leisure Thank you for the opportunity to evaluate your patient. For Medicare and Medicare HMO plans, please review the plan of care and approve it. It will need to be FAXED BACK to us at [phone] for Medicare purposes. For Medicare only, by signing this I certify the plan of care. Please let me know if there are questions or concerns regarding this plan of care. Physician Signature: Date:
--- NOTE | 2019-07-02 13:58 | HP.PTREVAL_ITS ---
Baron Johnson, DARIUSZ-C, It has been my pleasure to treat CYN MARTINEZ Jr. over the last 5 visits for LOW BACK PAIN. Please see the progress note below for an update on the physical therapy plan of care! Subjective: PATIENT WAS REFERRED BACK TO PT 06/14/[address] MCDANIEL WITH A DX OF CERVICAL DISC DISORDER. PATIENT REPORTS HE WAS TOLD HE HAS A SLIPPED DISC AND A PINCHED NERVE. PATIENT REPORTS HE CONSULTED HIS SON - PA FOR A [facility]. PATIENT REPORTS THAT SINCE THE LAST TIME HE WAS HERE HIS ARM PAIN HAS GOT BETTER. HE HAS BEEN RESTING AND NOT DOING HIS HEP. PATIENT REPORTS HIS HAND KEEPS FEELING VERY VERY SWOLLEN THOUGH. THERE IS MORE PAIN IN THE MUSCLES IN THE FOREARM THOUGH BUT THE PAIN ISN'T INTENSE. PATIENT REPORTS DR. MCDANIEL DID NOT SAY ANYTHING TO HIM ABOUT WHEN TO FOLLOW BACK UP WITH HIM. PATIENT REPORTS THAT HIS UNDERSTANDING IS THAT IF PT DOESN'T WORK THEY WOULD SEND HIM TO TRY SHOTS. PATIENT REPORTS THAT HIS ARM AND HAND GET REALLY CRANKED/PAINFUL IN THE CAR WHETHER HE IS DRIVING OR NOT. THE PAIN COMES SPORATICALLY WHEN WORKING AROUND THE HOUSE. PATIENT REPORTS AT NIGHT HE HIS NECK GETS SORE ON THE LEFT AND HE GETS A STIFF NECK. MRI RESULTS: FINDINGS: Examination is mildly degraded due to technical problems. There is severe. elevation of image noise. Diagnostic information is available. Craniocervical junction is intact and aligned. There is mild reversal of. cervical lordosis without subluxation. Marrow is normal. There is. multilevel disc/endplate degenerative change. There is severe elevation of BMI and body habitus. There is focal. accumulation subcutaneous fat in the dorsal cervical region. C2-C3 has right central disc osteophyte with mild right-sided cord. compression. Foramina are patent bilaterally. C3-C4 has right central disc endplate osteophyte with mild right-sided cord. compression. There is severe right foraminal stenosis with patent left. foramen. C4-C5 has mild central spondylotic cord compression. Foramina are not. seen. Remainder of the levels have patent thecal sac. Foramina are poorly. evaluated. Spinal cord is normal in size and shape. Signal is not reliably evaluated. . MRI/Spine Cervical (Routine). IMPRESSION: 1. Mild right sided cord compression at C2-C3, C3-C4, mild central. compression at C4-C5. . 2. Severe elevation of BMI. . 3. Dorsal cervical lipodystrophy. This has a broad metabolic differential. diagnosis and does not require further dedicated local imaging. Endocrinology referral is advised. Objective/Function: PATIENT WAS SEEN TODAY FOR RE-ASSESSMENT OF PROGRESS TOWARD THE SET PT GOALS AND THE NEED FOR FURTHER PHYSICAL THERAPY VS READINESS FOR DISCHARGE. UPON EXAM TODAY: RUKHSANA UE LIGHT TOUCH SENSATION. THORACIC RIGHT ROT - MOD AND NO PAIN WITH TESTING BUT PULLING' RIGHT UE. THORACIC LEFT ROT - MOD AND PAIN PROVOKING. CERVICAL MVMT LOSS: FLEX - NIL. PRO - NIL. EXT - MARIA TERESA - INCRASES RIGHT NECK AND RIGHT SCAP AREA PAIN. RET - MARIA TERESA - INCRASES RIGHT NECK AND RIGHT SCAP AREA PAIN AND RIGHT UPPER ARM. R ROT - MOD - PROVOKES RIGHT SHLD, ARM AND FOREARM INCREASED PAIN. L ROT - MOD AND PROVOKES RIGHT NECK PAIN. RIGHT SB - MOD. LEFT SB - MOD. Postural Strength: POOR. 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 PATIENT TOLERATED EX WELL TODAY. EMPHASIZED INSTRUCTIONS TO PATIENT ABOUT AVOIDANCE OF PERIPHERALIZATION OF SX'S AND HOW HOW TO MONITOR FOR CORD COMPRESSION. Plan Plan: RESUME PT. TRIAL OF MECHANICAL CERVICAL TX. POSTURE CORRECTION/STRENGTHENING, INSTRUCTION IN APPROPRIATE BODY MECHANICS AND ACTIVITY MODIFICATIONS. RUKHSANA UE ROM, STRETCHING AND STRENGTHENING. HEP INSTRUCTION. Goals Goal 1:: DECREASE C/O NECK AND MID BACK PAIN Goal Time Frame: 4-6 Weeks Goal Progress: Progressing Goal 2:: IMPROVE PERSONAL CARE, LIFTING, BED TRANSFER, BED MOBILITY, AND HOMEMAKING (ESPECIALLY TWISTING) FUNCTION Goal Time Frame: 4-6 Weeks Goal Progress: Progressing Goal 3:: INSTRUCT IN PROPHYLASIS Goal Time Frame: 4-6 Weeks Goal Progress: Progressing Anticipated Interventions Patient/Client Instruction: Educate patient on: Condition, Plan of Care, Risk Factors, Benefits of Fitness Program For the Purpose of:: To improve self management Therapeutic Exercise to Include: Strength training, Endurance training, Body mechanics, Postural training, Flexibilty training, Dynamic Lumbar Stabilization, Scapular Strength/Stabilization For the Purpose of:: To decrease pain, To increase ROM, To improve muscle per formance and motor function, To increase tolerance to activity/condition/position, To improve ability of physical actions for home/community/work/leisure Please do not hesitate to contact me at [phone] by phone or if you have questions or concerns regarding this new plan of care! Sincerely, Kathi Duong, PT, Cert MDT
--- NOTE | 2019-11-06 13:31 | HP.PT.NRP ---
CYN HARRELLEMI De La Rosa was seen in my office for initial evaluation on 05/21/19. The following Plan of Care was established for this patient: Initial Frequency: 2-3x /Week Initial Duration: 4-6 Weeks Patient/Client Instruction: Educate patient on: Condition, Plan of Care, Risk Factors, Benefits of Fitness Program For the Purpose of:: To improve self management Therapeutic Exercise to Include: Strength training, Endurance training, Body mechanics, Postural training, Flexibilty training, Dynamic Lumbar Stabilization, Scapular Strength/Stabilization For the Purpose of:: To decrease pain, To increase ROM, To improve muscle performance and motor function, To increase tolerance to activity/condition/position, To improve ability of physical actions for home/community/work/leisure This patient was last seen in our office . Pertinent comments regarding their Physical therapy will appear below: This patient has not returned to Physical Therapy and is appropriate to return to MD for further follow-up as needed. At this point I will be discontinuing this patient from physical therapy. I would be happy to see this patient again in the future if found appropriate by the physician. Thank you! Kathi Duong, PT, Cert MDT
== END 2019-07-09 19:00 | disposition home or self-care (01) ==
LOC: PT 13:00
PROVIDERS: PCP Family Medicine; Visit Provider Nurse Practitioner Family
DX: M54.5 Low back pain (principal); G89.29 Other chronic pain; M50.90 Cervical disc disorder, unspecified, unspecified cervical region; M54.12 Radiculopathy, cervical region
CPT/HCPCS: 97012; 97110; 97112; 97162; 97164; 97530

== ENCOUNTER → 2020-01-04 10:50 | Outpatient (CLI) | payer MEDICARE, OTHER, SELFPAY ==
[2019-05-30 09:08] VITALS: BMI 47.7
[2020-01-04 11:31] LABS: Microalbumin,Random Urine 34.5 mg/L (NO RANGE EST.); Microalbumin:Creatinine Ratio 48.6 mg/g CRE (<30 mg/g CRE)
[2020-01-04 11:49] LABS: Hemoglobin A1c 7.5 % (3.8-5.6)
[2020-01-04 11:51] LABS: ALB/GLOB Ratio 0.8 RATIO (0.9-2.4); AST(SGOT) 20 U/L (15-37); Alanine Aminotransfer ALT/SGPT 39 U/L (16-61); Albumin, Serum 3.4 g/dL (3.2-5.0); Alkaline Phosphatase 120 U/L (45-117); Anion Gap 9 (5-15); BUN 21 mg/dL (7-18); Calcium,Total 8.9 mg/dL (8.5-10.1); Chloride 97 mmol/L (98-107); Cholesterol 103 mg/dL (200); EST Glomerular Filtration Rate 79 mL/min (>60); Est Glom Filt Rate - Afr Amer 96 mL/min (>60); Globulin 4.5 g/dL (2.2-4.2); Glucose 197 mg/dL (74-106); High Density Lipoprotein 32 mg/dL; Potassium 3.8 mmol/L (3.5-5.1); Protein, Total 7.9 g/dL (6.4-8.2); Sodium Level 135 mmol/L (136-145); Thyroid Stim Hormone (TSH) 1.19 uIU/mL (0.358-3.74); Triglycerides 76 mg/dL; Very Low Density Lipoprotein 15 mg/dL (5-40)
== END ==
PROVIDERS: PCP Family Medicine; Referring Provider Internal Medicine Endocrinology, Diabetes & Metabolism; Visit Provider Internal Medicine Endocrinology, Diabetes & Metabolism
DX: E11.65 Type 2 diabetes mellitus with hyperglycemia (principal); E78.2 Mixed hyperlipidemia; E04.9 Nontoxic goiter, unspecified
CPT/HCPCS: 36415; 80053; 80061; 82043; 82570; 83036; 84443

== ENCOUNTER → 2020-04-17 09:22 | Outpatient (CLI) | payer MEDICARE, OTHER, SELFPAY ==
[2020-01-08 16:34] VITALS: BMI 48.6
[2020-04-17 10:57] LABS: Microalbumin,Random Urine 62.7 mg/L (NO RANGE EST.); Microalbumin:Creatinine Ratio 65.7 mg/g CRE (<30 mg/g CRE)
[2020-04-17 10:58] LABS: Hemoglobin A1c 8.1 % (3.8-5.6)
[2020-04-17 11:07] LABS: ALB/GLOB Ratio 0.8 RATIO (0.9-2.4); AST(SGOT) 14 U/L (15-37); Alanine Aminotransfer ALT/SGPT 37 U/L (16-61); Albumin, Serum 3.3 g/dL (3.2-5.0); Alkaline Phosphatase 117 U/L (45-117); Anion Gap 5 (5-15); BUN 17 mg/dL (7-18); BUN/Creat Ratio 17.7 RATIO (10-20); Calcium,Total 8.8 mg/dL (8.5-10.1); Chloride 98 mmol/L (98-107); Creatinine, Serum 0.96 mg/dL (0.70-1.30); EST Glomerular Filtration Rate 83 mL/min (>60); Est Glom Filt Rate - Afr Amer 100 mL/min (>60); Globulin 4.2 g/dL (2.2-4.2); Glucose 183 mg/dL (74-106); Potassium 4.1 mmol/L (3.5-5.1); Protein, Total 7.5 g/dL (6.4-8.2); Sodium Level 134 mmol/L (136-145)
== END ==
PROVIDERS: PCP Family Medicine; Referring Provider Internal Medicine Endocrinology, Diabetes & Metabolism; Visit Provider Internal Medicine Endocrinology, Diabetes & Metabolism
DX: E11.65 Type 2 diabetes mellitus with hyperglycemia (principal)
CPT/HCPCS: 36415; 80053; 82043; 82570; 83036

== ENCOUNTER → 2020-05-29 10:23 | Outpatient (CLI) | payer MEDICARE, OTHER, SELFPAY ==
[2020-05-14 13:27] VITALS: BMI 47.7
[2020-05-29 11:38] LABS: Vitamin B12 642 pg/mL (211-911)
[2020-05-29 11:47] LABS: ALB/GLOB Ratio 0.8 RATIO (0.9-2.4); AST(SGOT) 22 U/L (15-37); Alanine Aminotransfer ALT/SGPT 42 U/L (16-61); Albumin, Serum 3.4 g/dL (3.2-5.0); Alkaline Phosphatase 122 U/L (45-117); Anion Gap 7 (5-15); BUN 22 mg/dL (7-18); BUN/Creat Ratio 20.2 RATIO (10-20); Calcium,Total 8.8 mg/dL (8.5-10.1); Chloride 100 mmol/L (98-107); Cholesterol 104 mg/dL (200); Creatinine, Serum 1.09 mg/dL (0.70-1.30); EST Glomerular Filtration Rate 72 mL/min (>60); Est Glom Filt Rate - Afr Amer 87 mL/min (>60); Globulin 4.1 g/dL (2.2-4.2); Glucose 167 mg/dL (74-106); High Density Lipoprotein 36 mg/dL; Potassium 3.7 mmol/L (3.5-5.1); Protein, Total 7.5 g/dL (6.4-8.2); Sodium Level 134 mmol/L (136-145); Triglycerides 83 mg/dL; Very Low Density Lipoprotein 17 mg/dL (5-40)
== END ==
PROVIDERS: PCP Family Medicine; Referring Provider Internal Medicine Endocrinology, Diabetes & Metabolism; Visit Provider Internal Medicine Endocrinology, Diabetes & Metabolism
DX: E11.65 Type 2 diabetes mellitus with hyperglycemia (principal); E78.2 Mixed hyperlipidemia; D51.3 Other dietary vitamin B12 deficiency anemia
CPT/HCPCS: 36415; 80053; 80061; 82607; 83036

== ENCOUNTER → 2020-06-12 14:30 | Outpatient (CLI) | payer MEDICARE, OTHER, SELFPAY ==
[2020-05-14 13:27] VITALS: BMI 47.7
== END ==
PROVIDERS: PCP Family Medicine; Referring Provider Nurse Practitioner Acute Care; Visit Provider Nurse Practitioner Acute Care
DX: R05 Cough (principal)
CPT/HCPCS: 87635; C9803; U0005; U0003

== ENCOUNTER 2020-06-17 11:58 | Outpatient (CLI) | payer MEDICARE, OTHER, SELFPAY ==
[2020-06-17 12:30] VITALS: BP 141/70; PULSE 79; RESP 16; TEMP 36.8; O2SAT 92; BMI 50.9
[2020-06-17 13:01] VITALS: BP 157/73; PULSE 77; RESP 18; TEMP 36.4; O2SAT 92
[2020-06-17 13:26] VITALS: BP 148/69; PULSE 78; RESP 16; TEMP 36.4; O2SAT 92
[2020-06-17 13:51] VITALS: BP 114/81; PULSE 82; RESP 16; TEMP 36.6; O2SAT 93
[2020-06-17 14:21] VITALS: BP 157/70; PULSE 77; RESP 16; TEMP 36.6; O2SAT 92
[2020-06-17 14:43] VITALS: PULSE 82; RESP 16; TEMP 36.8; O2SAT 93
== END 2020-06-17 15:15 | disposition home or self-care (01) ==
LOC: MS2OUT 11:59 → MS2 12:00
PROVIDERS: PCP Family Medicine; Referring Provider Nurse Practitioner Acute Care; Visit Provider Nurse Practitioner Acute Care
DX: U07.1 COVID-19 (principal)
CPT/HCPCS: J7050; M0239; Q0245

== ENCOUNTER → 2020-07-18 10:23 | Outpatient (CLI) | payer MEDICARE, OTHER, SELFPAY ==
[2020-07-18 11:29] LABS: ALB/GLOB Ratio 0.8 RATIO (0.9-2.4); AST(SGOT) 21 U/L (15-37); Alanine Aminotransfer ALT/SGPT 45 U/L (16-61); Albumin, Serum 3.3 g/dL (3.2-5.0); Alkaline Phosphatase 117 U/L (45-117); Anion Gap 7 (5-15); BUN 18 mg/dL (7-18); BUN/Creat Ratio 19.5 RATIO (10-20); Calcium,Total 8.7 mg/dL (8.5-10.1); Chloride 98 mmol/L (98-107); Cholesterol 104 mg/dL (200); Creatinine, Serum 0.92 mg/dL (0.70-1.30); EST Glomerular Filtration Rate 86 mL/min (>60); Est Glom Filt Rate - Afr Amer 105 mL/min (>60); Globulin 4.2 g/dL (2.2-4.2); Glucose 211 mg/dL (74-106); High Density Lipoprotein 33 mg/dL; PSA,Total- Diagnostic 1.07 ng/mL (0.0-4.0); Potassium 4.1 mmol/L (3.5-5.1); Protein, Total 7.5 g/dL (6.4-8.2); Sodium Level 134 mmol/L (136-145); Triglycerides 78 mg/dL; Very Low Density Lipoprotein 16 mg/dL (5-40)
[2020-07-18 11:33] LABS: Hemoglobin A1c 8.4 % (3.8-5.6)
== END ==
PROVIDERS: PCP Family Medicine; Referring Provider Internal Medicine Endocrinology, Diabetes & Metabolism; Visit Provider Internal Medicine Endocrinology, Diabetes & Metabolism
DX: E11.65 Type 2 diabetes mellitus with hyperglycemia (principal); E78.2 Mixed hyperlipidemia; N42.9 Disorder of prostate, unspecified
CPT/HCPCS: 36415; 80053; 80061; 83036; 84153

== ENCOUNTER → 2020-09-01 09:37 | Outpatient (CLI) | payer MEDICARE, OTHER, SELFPAY ==
[2020-09-01 10:56] LABS: Hemoglobin A1c 7.7 % (3.8-5.6)
[2020-09-01 11:02] LABS: ALB/GLOB Ratio 0.7 RATIO (0.9-2.4); AST(SGOT) 22 U/L (15-37); Alanine Aminotransfer ALT/SGPT 42 U/L (16-61); Albumin, Serum 3.2 g/dL (3.2-5.0); Alkaline Phosphatase 110 U/L (45-117); Anion Gap 5 (5-15); BUN 19 mg/dL (7-18); BUN/Creat Ratio 21.6 RATIO (10-20); Calcium,Total 8.5 mg/dL (8.5-10.1); Chloride 100 mmol/L (98-107); Creatinine, Serum 0.88 mg/dL (0.70-1.30); EST Glomerular Filtration Rate 91 mL/min (>60); Est Glom Filt Rate - Afr Amer 111 mL/min (>60); Globulin 4.5 g/dL (2.2-4.2); Glucose 195 mg/dL (74-106); Protein, Total 7.7 g/dL (6.4-8.2); Sodium Level 134 mmol/L (136-145); Thyroid Stim Hormone (TSH) 1.39 uIU/mL (0.358-3.74)
== END ==
PROVIDERS: PCP Family Medicine; Referring Provider Physician Assistant; Visit Provider Physician Assistant
DX: E11.65 Type 2 diabetes mellitus with hyperglycemia (principal); E04.9 Nontoxic goiter, unspecified
CPT/HCPCS: 36415; 80053; 83036; 84443

== ENCOUNTER 2020-09-18 09:33 | Outpatient (RCR) | payer MEDICARE, OTHER, SELFPAY | END 2020-10-23 23:59 | LOC: IMMUN 09:33 | PROVIDERS: PCP Family Medicine; Referring Provider Family Medicine; Visit Provider Family Medicine | DX: Z23 Encounter for immunization (principal) | CPT/HCPCS: 0001A; 0002A; 91300 ==

== ENCOUNTER → 2020-11-10 10:31 | Outpatient (CLI) | payer MEDICARE, OTHER, SELFPAY ==
[2020-11-10 12:01] LABS: ALB/GLOB Ratio 0.8 RATIO (0.9-2.4); AST(SGOT) 23 U/L (15-37); Alanine Aminotransfer ALT/SGPT 36 U/L (16-61); Albumin, Serum 3.1 g/dL (3.2-5.0); Alkaline Phosphatase 109 U/L (45-117); Anion Gap 6 (5-15); BUN 19 mg/dL (7-18); BUN/Creat Ratio 21.5 RATIO (10-20); Calcium,Total 8.2 mg/dL (8.5-10.1); Chloride 102 mmol/L (98-107); Creatinine, Serum 0.88 mg/dL (0.70-1.30); EST Glomerular Filtration Rate 91 mL/min (>60); Est Glom Filt Rate - Afr Amer 110 mL/min (>60); Globulin 4.1 g/dL (2.2-4.2); Glucose 197 mg/dL (74-106); Protein, Total 7.2 g/dL (6.4-8.2); Sodium Level 136 mmol/L (136-145)
[2020-11-10 12:15] LABS: Hemoglobin A1c 8.6 % (3.8-5.6)
== END ==
PROVIDERS: PCP Family Medicine; Referring Provider Internal Medicine Endocrinology, Diabetes & Metabolism; Visit Provider Internal Medicine Endocrinology, Diabetes & Metabolism
DX: E11.65 Type 2 diabetes mellitus with hyperglycemia (principal)
CPT/HCPCS: 36415; 80053; 83036

== ENCOUNTER → 2021-01-09 08:38 | Outpatient (CLI) | payer MEDICARE, OTHER, SELFPAY ==
[2021-01-09 12:29] LABS: ALB/GLOB Ratio 0.7 RATIO (0.9-2.4); AST(SGOT) 15 U/L (15-37); Alanine Aminotransfer ALT/SGPT 38 U/L (16-61); Alkaline Phosphatase 102 U/L (45-117); Anion Gap 5 (5-15); BUN 15 mg/dL (7-18); BUN/Creat Ratio 16.8 RATIO (10-20); Calcium,Total 8.3 mg/dL (8.5-10.1); Chloride 102 mmol/L (98-107); Creatinine, Serum 0.89 mg/dL (0.70-1.30); EST Glomerular Filtration Rate 90 mL/min (>60); Est Glom Filt Rate - Afr Amer 109 mL/min (>60); Globulin 4.5 g/dL (2.2-4.2); Glucose 205 mg/dL (74-106); Protein, Total 7.5 g/dL (6.4-8.2); Sodium Level 137 mmol/L (136-145)
== END ==
PROVIDERS: PCP Family Medicine; Referring Provider Internal Medicine Endocrinology, Diabetes & Metabolism; Visit Provider Internal Medicine Endocrinology, Diabetes & Metabolism
DX: E11.65 Type 2 diabetes mellitus with hyperglycemia (principal)
CPT/HCPCS: 36415; 80053

== ENCOUNTER → 2021-03-25 08:16 | Outpatient (CLI) | payer MEDICARE, OTHER, SELFPAY ==
[2021-03-25 10:52] LABS: Hemoglobin A1c 8.6 % (3.8-5.6)
[2021-03-25 10:57] LABS: Microalbumin,Random Urine 45.1 mg/L (NO RANGE EST.); Microalbumin:Creatinine Ratio 56.4 mg/g CRE (<30 mg/g CRE)
[2021-03-25 11:01] LABS: ALB/GLOB Ratio 0.7 RATIO (0.9-2.4); AST(SGOT) 18 U/L (15-37); Alanine Aminotransfer ALT/SGPT 35 U/L (16-61); Albumin, Serum 3.1 g/dL (3.2-5.0); Alkaline Phosphatase 118 U/L (45-117); Anion Gap 8 (5-15); BUN 20 mg/dL (7-18); BUN/Creat Ratio 21.3 RATIO (10-20); Calcium,Total 9.5 mg/dL (8.5-10.1); Chloride 97 mmol/L (98-107); Creatinine, Serum 0.94 mg/dL (0.70-1.30); EST Glomerular Filtration Rate 85 mL/min (>60); Est Glom Filt Rate - Afr Amer 103 mL/min (>60); Globulin 4.7 g/dL (2.2-4.2); Glucose 205 mg/dL (74-106); Potassium 3.6 mmol/L (3.5-5.1); Protein, Total 7.8 g/dL (6.4-8.2); Sodium Level 134 mmol/L (136-145)
== END ==
PROVIDERS: PCP Family Medicine; Referring Provider Internal Medicine Endocrinology, Diabetes & Metabolism; Visit Provider Internal Medicine Endocrinology, Diabetes & Metabolism
DX: E11.65 Type 2 diabetes mellitus with hyperglycemia (principal)
CPT/HCPCS: 36415; 80053; 82043; 82570; 83036

== ENCOUNTER → 2021-04-03 14:00 | Outpatient (CLI) | payer MEDICARE, OTHER, SELFPAY | PROVIDERS: PCP Family Medicine; Referring Provider Internal Medicine Critical Care Medicine; Visit Provider Internal Medicine Critical Care Medicine | DX: R06.02 Shortness of breath (principal) | CPT/HCPCS: 87633; 87798; C9803 ==

== ENCOUNTER 2021-06-09 10:39 | Outpatient (CLI) | payer MEDICARE, OTHER, SELFPAY ==
--- NOTE | 2021-06-09 12:49 | PFTCOMP_ITS ---
COMPLETE PULMONARY FUNCTION TEST INTERPRETATION Brief HPI: Patient is a 71 year old male, currently under the care of Dr. Lane, who presents to [facility] for complete pulmonary function tests secondary to diagnosis of COPD. Respiratory therapist reports good effort and reproducible results. Interpretation: Forced expiration spirometry shows a mild large airways obstructive ventilatory defect with an FEV1 of 80% predicted. There is a significant bronchodilator response in FEV1 by strict ATS criteria. Spirograms are of good quality and plateau slowly, indicating slowly emptying areas of the lungs. The respiratory flow volume loop shows decreased expiratory flow rates at all lung volumes consistent with airway obstruction. Lung volumes by body plethysmography show an elevated total lung capacity at 7.58 L, 121% predicted. FRC and RV are elevated out of proportion. Lung volume measurements are consistent with hyperinflation and air-trapping. Diffusion capacity by carbon monoxide is normal at 93% predicted. The airway resistance is normal. Compared to previous pulmonary function tests from 08/02/2017, there has been significant reduction in spirometric values with associated air trapping and hyperinflation. Impression: Partially reversible mild large airways obstructive ventilatory defect resulting in air trapping with hyperinflation, that has progressed since 2018
== END 2021-06-09 23:59 | disposition home or self-care (01) ==
PROVIDERS: PCP Family Medicine; Referring Provider Nurse Practitioner Acute Care; Visit Provider Nurse Practitioner Acute Care
DX: J44.9 Chronic obstructive pulmonary disease, unspecified (principal)
CPT/HCPCS: 94060; 94726; 94729

== ENCOUNTER 2021-07-01 08:28 | Outpatient (CLI) | payer MEDICARE, OTHER, SELFPAY ==
[2021-07-01 10:26] LABS: Hemoglobin A1c 7.7 % (3.8-5.6)
[2021-07-01 10:36] LABS: ALB/GLOB Ratio 0.7 RATIO (0.9-2.4); AST(SGOT) 14 U/L (15-37); Alanine Aminotransfer ALT/SGPT 29 U/L (16-61); Albumin, Serum 3.1 g/dL (3.2-5.0); Alkaline Phosphatase 99 U/L (45-117); Anion Gap 6 (5-15); BUN 21 mg/dL (7-18); BUN/Creat Ratio 23.1 RATIO (10-20); Calcium,Total 8.8 mg/dL (8.5-10.1); Chloride 97 mmol/L (98-107); Cholesterol 94 mg/dL (200); Creatinine, Serum 0.91 mg/dL (0.70-1.30); EST Glomerular Filtration Rate 88 mL/min (>60); Est Glom Filt Rate - Afr Amer 106 mL/min (>60); Globulin 4.4 g/dL (2.2-4.2); Glucose 136 mg/dL (74-106); High Density Lipoprotein 34 mg/dL; Potassium 3.9 mmol/L (3.5-5.1); Protein, Total 7.5 g/dL (6.4-8.2); Sodium Level 134 mmol/L (136-145); Triglycerides 53 mg/dL; Very Low Density Lipoprotein 11 mg/dL (5-40)
== END 2021-07-01 23:59 | disposition home or self-care (01) ==
LOC: BIMLAB 08:29
PROVIDERS: PCP Family Medicine; Referring Provider Internal Medicine Endocrinology, Diabetes & Metabolism; Visit Provider Internal Medicine Endocrinology, Diabetes & Metabolism
DX: E11.65 Type 2 diabetes mellitus with hyperglycemia (principal); E78.2 Mixed hyperlipidemia
CPT/HCPCS: 36415; 80053; 80061; 83036

== ENCOUNTER → 2021-10-01 | Outpatient (CLI) | payer MEDICARE, OTHER, SELFPAY ==
[2021-10-01 13:01] LABS: ALB/GLOB Ratio 0.7 RATIO (0.9-2.4); AST(SGOT) 19 U/L (15-37); Alanine Aminotransfer ALT/SGPT 31 U/L (16-61); Alkaline Phosphatase 105 U/L (45-117); Anion Gap 5 (5-15); BUN 18 mg/dL (7-18); BUN/Creat Ratio 21.1 RATIO (10-20); Chloride 102 mmol/L (98-107); Cholesterol 89 mg/dL (200); Creatinine, Serum 0.85 mg/dL (0.70-1.30); EST Glomerular Filtration Rate 95 mL/min (>60); Est Glom Filt Rate - Afr Amer 114 mL/min (>60); Globulin 4.3 g/dL (2.2-4.2); Glucose 117 mg/dL (74-106); High Density Lipoprotein 35 mg/dL; Protein, Total 7.3 g/dL (6.4-8.2); Sodium Level 135 mmol/L (136-145); Triglycerides 44 mg/dL
[2021-10-01 13:02] LABS: Thyroid Stim Hormone (TSH) 1.69 uIU/mL (0.358-3.74); Very Low Density Lipoprotein 9 mg/dL (5-40)
[2021-10-01 13:18] LABS: Hemoglobin A1c 6.9 % (3.8-5.6)
== END | disposition home or self-care (01) ==
LOC: BIMLAB 10:24
PROVIDERS: PCP Family Medicine; Visit Provider Internal Medicine Endocrinology, Diabetes & Metabolism
DX: E11.65 Type 2 diabetes mellitus with hyperglycemia (principal); E78.2 Mixed hyperlipidemia; E04.9 Nontoxic goiter, unspecified
CPT/HCPCS: 36415; 80053; 80061; 82043; 82570; 83036; 84443

== ENCOUNTER → 2021-12-18 | Outpatient (CLI) | payer MEDICARE, OTHER, SELFPAY ==
[2021-12-18 12:35] LABS: ALB/GLOB Ratio 0.6 RATIO (0.9-2.4); AST(SGOT) 21 U/L (15-37); Alanine Aminotransfer ALT/SGPT 28 U/L (16-61); Alkaline Phosphatase 99 U/L (45-117); Anion Gap 4 (5-15); BUN 23 mg/dL (7-18); BUN/Creat Ratio 23.4 RATIO (10-20); Calcium,Total 8.9 mg/dL (8.5-10.1); Chloride 101 mmol/L (98-107); Creatinine, Serum 0.98 mg/dL (0.70-1.30); EST Glomerular Filtration Rate 80 mL/min (>60); Est Glom Filt Rate - Afr Amer 97 mL/min (>60); Globulin 4.7 g/dL (2.2-4.2); Glucose 181 mg/dL (74-106); Potassium 4.3 mmol/L (3.5-5.1); Protein, Total 7.7 g/dL (6.4-8.2); Sodium Level 134 mmol/L (136-145)
[2021-12-18 13:01] LABS: Hemoglobin A1c 6.8 % (3.8-5.6)
== END | disposition home or self-care (01) ==
PROVIDERS: PCP Family Medicine; Referring Provider Internal Medicine Endocrinology, Diabetes & Metabolism; Visit Provider Internal Medicine Endocrinology, Diabetes & Metabolism
DX: E11.65 Type 2 diabetes mellitus with hyperglycemia (principal)
CPT/HCPCS: 36415; 80053; 83036

== ENCOUNTER → 2022-03-11 | Outpatient (CLI) | payer MEDICARE, OTHER, SELFPAY ==
[2022-03-11 12:52] LABS: ALB/GLOB Ratio 0.7 RATIO (0.9-2.4); AST(SGOT) 15 U/L (15-37); Alanine Aminotransfer ALT/SGPT 32 U/L (16-61); Alkaline Phosphatase 105 U/L (45-117); Anion Gap 5 (5-15); BUN 18 mg/dL (7-18); BUN/Creat Ratio 20.4 RATIO (10-20); Calcium,Total 8.8 mg/dL (8.5-10.1); Chloride 101 mmol/L (98-107); Cholesterol 89 mg/dL (200); Creatinine, Serum 0.88 mg/dL (0.70-1.30); EST Glomerular Filtration Rate 91 mL/min (>60); Est Glom Filt Rate - Afr Amer 110 mL/min (>60); Globulin 4.4 g/dL (2.2-4.2); Glucose 191 mg/dL (74-106); High Density Lipoprotein 39 mg/dL; Potassium 4.7 mmol/L (3.5-5.1); Protein, Total 7.4 g/dL (6.4-8.2); Sodium Level 136 mmol/L (136-145); Triglycerides 38 mg/dL; Very Low Density Lipoprotein 8 mg/dL (5-40)
[2022-03-11 14:53] LABS: Vitamin D,25 Hydroxy 28.6 ng/mL
== END | disposition home or self-care (01) ==
LOC: BIMLAB 08:54
PROVIDERS: PCP Family Medicine; Referring Provider Internal Medicine Endocrinology, Diabetes & Metabolism; Visit Provider Internal Medicine Endocrinology, Diabetes & Metabolism
DX: E11.42 Type 2 diabetes mellitus with diabetic polyneuropathy (principal); E78.2 Mixed hyperlipidemia; E55.9 Vitamin D deficiency, unspecified
CPT/HCPCS: 36415; 80053; 80061; 82306; 83036

== ENCOUNTER → 2022-05-11 | Outpatient (CLI) | payer MEDICARE, OTHER, SELFPAY ==
[2022-05-11 11:28] VITALS: PULSE 78; PULSE 80; PULSE 86; PULSE 89; PULSE 90; PULSE 93; O2SAT 88; O2SAT 89; O2SAT 90; O2SAT 91; O2SAT 92; O2SAT 93; O2SAT 94; O2SAT 95
--- NOTE | 2022-05-11 11:37 | CPS ---
Patient walked about 350ft in the first 3 minutes, SpO2 88% at the 3rd minute. Placed patient on 2 lpm O2 at that time, SpO2 recovered to 94%. Patient walked the remaining 3 minutes on 2 lpm O2 with an SpO2 92% or greater. Patient was also able to walk just under 500ft in the remaining 3 minutes.
--- NOTE | 2022-05-11 14:06 | PCM.PSN.6M ---
PSN 6 Minute Walk Test 6 Minute Walk Test 6 Minute Walk Test: 6 Minute Walk Test PSN:6-Minute Walk Test Start: 05/11/22 11:28 Freq: Status: Active Protocol: [id number].6MINW Document 05/11/22 11:28 NONAYANNI (Rec: 05/11/22 11:40 PEGGY [id number]) 6 Minute Walk Test Date Performed 05/11/22 Time Performed 11:00 Height 5 ft 9 in Weight: 136.078 kg Weight in Pounds 300.[address]: Tessy Trinh [employer] Assistive device used: None Pre-test Oxygen Delivery Method Room Air Pulse Ox (%) 91 Pulse Rate (60-100 beats/min) 78 Dyspnea Boris Scale (0-10) 0 Exertion Boris Scale (6-20) 6 1st minute Oxygen Delivery Method Room Air Pulse Ox (%) 90 Pulse Rate (60-100 beats/min) 86 2nd minute Oxygen Delivery Method Room Air Pulse Ox (%) 89 Pulse Rate (60-100 beats/min) 90 3rd minute Oxygen Delivery Method Room Air Pulse Ox (%) 88 Pulse Rate (60-100 beats/min) 93 Dyspnea Boris Scale (0-10) 3 4th minute Oxygen Flow Rate (L/min) (L/min) 2 Oxygen Delivery Method Nasal Cannula Pulse Ox (%) 94 Pulse Rate (60-100 beats/min) 89 5th minute Oxygen Flow Rate (L/min) (L/min) 2 Oxygen Delivery Method Nasal Cannula Pulse Ox (%) 93 Pulse Rate (60-100 beats/min) 90 6th minute Oxygen Flow Rate (L/min) (L/min) 2 Oxygen Delivery Method Nasal Cannula Pulse Ox (%) 92 Pulse Rate (60-100 beats/min) 93 Dyspnea Boris Scale (0-10) 1 Exertion Boris Scale (6-20) 12 Post-test Oxygen Flow Rate (L/min) (L/min) 2 Oxygen Delivery Method Nasal Cannula Pulse Ox (%) 95 Pulse Rate (60-100 beats/min) 80 Full Laps Walked 14 Partial Lap, Number of Tiles Walked 10 Total Distance Walked (ft) 836 05/11/22 11:37 Cardiopulmonary Services by Terrie Wang Patient walked about 350ft in the first 3 minutes, SpO2 88% at the 3rd minute. Placed patient on 2 lpm O2 at that time, SpO2 recovered to 94%. Patient walked the remaining 3 minutes on 2 lpm O2 with an SpO2 92% or greater. Patient was also able to walk just under 500ft in the remaining 3 minutes. Initialized on 05/11/22 11:37 - END OF NOTE Interpretation Interpretation: The patient was noted to be 91% on room air at rest. The patient did not begin ambulated and desaturated to 88% in the third minute. The patient was placed on 2 L nasal cannula with improvement to 94% and was able to maintain saturations throughout testing. No significant tachycardia was noted. In total, the patient traveled 836 feet over the course of 6 minutes with no assistive devices and 1 break. These findings are consistent with a respiratory limitation exercise tolerance. Recommendations Recommendations: The patient requires no supplemental oxygen at rest, but should be using 2 L nasal cannula with any exertion.
== END | disposition home or self-care (01) ==
LOC: PSN 10:53
PROVIDERS: PCP Family Medicine; Visit Provider Nurse Practitioner Acute Care
DX: J44.9 Chronic obstructive pulmonary disease, unspecified (principal)
CPT/HCPCS: 94618

== ENCOUNTER → 2022-05-28 | Outpatient (CLI) | payer MEDICARE, OTHER, SELFPAY | END | disposition home or self-care (01) | LOC: PSN 14:05 | PROVIDERS: PCP Family Medicine; Visit Provider Internal Medicine Cardiovascular Disease | DX: R94.31 Abnormal electrocardiogram [ECG] [EKG] (principal); I25.10 Atherosclerotic heart disease of native coronary artery without angina pectoris; I10 Essential (primary) hypertension; E78.2 Mixed hyperlipidemia | CPT/HCPCS: 93225; 93226 ==

== ENCOUNTER → 2022-06-01 | Outpatient (CLI) | payer MEDICARE, OTHER, SELFPAY ==
[2022-06-01 13:26] LABS: ALB/GLOB Ratio 0.7 RATIO (0.9-2.4); AST(SGOT) 18 U/L (15-37); Alanine Aminotransfer ALT/SGPT 27 U/L (16-61); Albumin, Serum 3.1 g/dL (3.2-5.0); Alkaline Phosphatase 104 U/L (45-117); Anion Gap 7 (5-15); BUN 20 mg/dL (7-18); BUN/Creat Ratio 23.5 RATIO (10-20); Calcium,Total 8.9 mg/dL (8.5-10.1); Chloride 101 mmol/L (98-107); Cholesterol 99 mg/dL (200); Creatinine, Serum 0.85 mg/dL (0.70-1.30); EST Glomerular Filtration Rate 95 mL/min (>60); Est Glom Filt Rate - Afr Amer 114 mL/min (>60); Globulin 4.4 g/dL (2.2-4.2); Glucose 176 mg/dL (74-106); High Density Lipoprotein 40 mg/dL; Potassium 4.9 mmol/L (3.5-5.1); Protein, Total 7.5 g/dL (6.4-8.2); Sodium Level 136 mmol/L (136-145); Thyroid Stim Hormone (TSH) 1.67 uIU/mL (0.358-3.74); Triglycerides 54 mg/dL; Very Low Density Lipoprotein 11 mg/dL (5-40)
[2022-06-01 14:10] LABS: Hemoglobin A1c 8.1 % (3.8-5.6)
== END | disposition home or self-care (01) ==
PROVIDERS: PCP Family Medicine; Referring Provider Internal Medicine Endocrinology, Diabetes & Metabolism; Visit Provider Internal Medicine Endocrinology, Diabetes & Metabolism
DX: E11.42 Type 2 diabetes mellitus with diabetic polyneuropathy (principal); E78.2 Mixed hyperlipidemia; E04.9 Nontoxic goiter, unspecified
CPT/HCPCS: 36415; 80053; 80061; 83036; 84443

== ENCOUNTER → 2022-06-10 | Outpatient (CLI) | payer MEDICARE, OTHER, SELFPAY ==
--- NOTE | 2022-06-10 07:29 | ECHOD_ITS ---
Reason For Study: ARRYTHMIA Procedure This was a 2D Doppler, Color Flow transthoracic echocardiogram. The study was technically difficult. Contrast injection was performed. Exam performed in department. Left Ventricle Normal LV size. Sigmoid septum. Left ventricular systolic function is hyperdynamic. The estimated ejection fraction is 75 %. Diastolic function is indeterminate. No regional wall motion abnormalities noted. Right Ventricle Normal RV size. Normal systolic function. Atria The left atrium is mildly enlarged. Normal right atrium. No doppler evidence for ASD. Mitral Valve There is no mitral annular calcification. Normal mitral valve. Mild (1+) mitral valve insufficiency. Tricuspid Valve Normal tricuspid valve. Mild tricuspid valve insufficiency. Right ventricular systolic pressure estimated to be 45 mmHg. Aortic Valve The aortic valve is not well visualized. Mild focal aortic valve thickening. Trivial aortic valve insufficiency. Pulmonic Valve The pulmonic valve is not well visualized. Great Vessels The aortic root is not well visualized. Pericardium/Pleural No pericardial effusion. Medication Diluted definity 2ml given slow IV push to enhance endocardial definition. MMode/2D Measurements & Calculations RVDd: 4.4 cm LAV(MOD-sp4): 113.9 ml LA A4 area: 31.1 cm2 LA dimension(2D): 5.0 cm RA A4 area: 19.7 cm2 Time Measurements MV dec time: 0.18 sec Doppler Measurements & Calculations MV E max favio: 89.1 cm/sec MV V2 max: 112.0 cm/sec MV A max favio: 113.9 cm/sec MV max P.0 mmHg MV dec slope: 500.9 cm/sec2 MV E/A: 0.78 MV V2 mean: 72.7 cm/sec MV mean P.4 mmHg MV V2 VTI: 29.5 cm Ao V2 max: 246.6 cm/sec TR max favio: 324.3 cm/sec Ao max P.3 mmHg TR max P.1 mmHg Ao V2 mean: 164.2 cm/sec Ao mean P.8 mmHg Ao V2 VTI: 45.4 cm ECHO/Echo Complete W/ Contrast Interpretation Summary The study was technically difficult. Contrast injection was performed. Left ventricular systolic function is hyperdynamic. The estimated ejection fraction is 75 %. Sigmoid septum. The left atrium is mildly enlarged. Mild (1+) mitral valve insufficiency. Mild tricuspid valve insufficiency. Mild focal aortic valve thickening. Trivial aortic valve insufficiency. Right ventricular systolic pressure estimated to be 45 mmHg. Diastolic function is indeterminate. Ordering Physician: Leonel Mae Referring Physician: Leonel Mae Performed By: Odalys Bustos RCS
--- NOTE | 2022-06-10 18:49 | STRESSREP ---
Stress Test Report Date: 06-10-2022 Procedure: Exercise tolerance test/imaging study Indications: Shortness of breath/dyspnea on exertion; CAD; cardiac ectopy/PACs/PVCs Consent: Per the patient Procedure: The patient exercised on a Demetri protocol for 4 minutes and 15 sec completing Stage I and 1 minute and 15 seconds of Stage II achieving a peak heart rate of 122 bpm (81% predicted maximal heart rate) with resting blood pressure of 150/66 mmHg and a peak blood pressure 184/60 mmHg and a peak MET capacity of 7 METs. The baseline ECG demonstrated normal sinus rhythm; first-degree AV block; poor R wave progression; T wave abnormality: Consider myocardial ischemia. The peak exercise ECG demonstrated no obvious ECG changes. There was a rare to occasional PVC during recovery. The functional capacity was considered decreased. There was no complaint of chest discomfort during exercise or recovery. The examination was discontinued secondary to dyspnea. Impression: 1. Technically inadequate (percent predicted maximal heart rate less than 85%) exercise tolerance test 2. Peak exercise ECG with no obvious ECG changes 3. There was a rare to occasional PVC during recovery 4. Nuclear images pending Myocardial perfusion imaging study: Technique: The patient was injected with 15.0 mCi of technetium 99m Cardiolite and subsequently rest SPECT Cardiolite nuclear imaging was obtained in the horizontal long, vertical long, and short axis views. The patient exercised on a Demetri protocol for 4 minutes and 15 sec completing Stage I and 1 minute and 15 seconds of Stage II achieving a peak heart rate of 122 bpm (81% predicted maximal heart rate) with resting blood pressure of 150/66 mmHg and a peak blood pressure 184/60 mmHg and a peak MET capacity of 7 METs. The patient was injected with 44.6 mCi of technetium 99m Cardiolite and subsequently stress SPECT Cardiolite nuclear imaging was obtained in the horizontal long, vertical long, and short axis views. A gated Cardiolite study at peak stress was obtained. Interpretation: Rest and stress SPECT Cardiolite nuclear imaging status post realignment, normalization, and attenuation correction, demonstrates the appearance of relative uniform tracer uptake and myocardial perfusion appearing within normal limits. There is end systolic thickening and brightening. The gated Cardiolite study demonstrates myocardial thickening and inward wall motion. The reported LVEF is 54%. Impression: 1. Rest and stress SPECT Cardiolite nuclear imaging demonstrate relative uniform tracer uptake and myocardial perfusion appearing within normal limits. 2. The gated Cardiolite study reports an LVEF of 54%. Comment: The patient was noted to have an O2 saturation on room air of 92% prior to initiation of exercise tolerance test. The patient was subsequently placed on 2 L nasal cannula. At peak exercise it appeared the patient's O2 saturation decreased to 89%. In recovery the patient's O2 saturation returned to 92% on 2 L nasal cannula. This note was generated with PowerMessage dictation software. It may contain incorrect words, spelling, and punctuation that were not noted in checking the note before signing.
== END | disposition home or self-care (01) ==
LOC: CVS 07:26
PROVIDERS: PCP Family Medicine; Referring Provider Internal Medicine Cardiovascular Disease; Visit Provider Internal Medicine Cardiovascular Disease
DX: I25.10 Atherosclerotic heart disease of native coronary artery without angina pectoris (principal); I10 Essential (primary) hypertension; E78.2 Mixed hyperlipidemia; R94.31 Abnormal electrocardiogram [ECG] [EKG]; G47.33 Obstructive sleep apnea (adult) (pediatric)
CPT/HCPCS: 78452; 93017; 93306; A9500; Q9957; A4216; C8929

== ENCOUNTER → 2022-08-03 | Outpatient (CLI) | payer MEDICARE, OTHER, SELFPAY ==
[2022-08-03 11:13] LABS: Absolute Lymphocyte Count 1.46 X10^3/uL (0.83-4.51); Absolute Neutrophil Count 7.8 X10^3/uL (2.0-7.7); Basophil# 0.07 X10^3/uL; Basophil% 0.7 % (0-1); Eosinophil# 0.23 X10^3/uL; Eosinophils% 2.2 % (0-5); Hematocrit 42.2 % (40-54); Lymphocyte # 1.46 X10^3/ul (0.83-4.51); Lymphocyte % 13.8 % (19-41); Mean Corp Hgb Conc 30.8 g/dL (32-36); Mean Corpuscular Hgb 25.4 pg (27.0-32.0); Mean Corpuscular Volume 82.4 fL (80-94); Mean Platelet Vol. 9.7 fl (6.2-12.0); Monocyte# 0.92 X10^3/uL; Monocyte% 8.7 % (0-10); NRBC Flagged by Analyzer 0 % (0-5); Neutrophil % 73.9 % (47-70); Platelet Count 393 K/mm3 (150-450); RBC Distribution Width CV 15.2 % (11.6-14.6); RBC Distribution Width SD 45.5 fl (35.1-43.9); Red Blood Count 5.12 M/mm3 (4.6-6.2); White Blood Count 10.6 K/mm3 (4.4-11.0)
[2022-08-05 19:07] LABS: Alternaria alternata <0.10 kU/L (Class 0); Bermuda Grass <0.10 kU/L (Class 0); Bluegrass, Kentucky <0.10 kU/L (Class 0); Cat Hair/Dander, Standard <0.10 kU/L (Class 0); D farinae Mite <0.10 kU/L (Class 0); D pteronyssinus <0.10 kU/L (Class 0); Dog Epithelia <0.10 kU/L (Class 0); Elm, American White <0.10 kU/L (Class 0); Oak, White <0.10 kU/L (Class 0); Plantain, English <0.10 kU/L (Class 0); Ragweed, Short/Common <0.10 kU/L (Class 0)
[2022-08-05 21:16] LABS: Mouse Urine <0.10 kU/L (Class 0)
[2022-08-06 18:07] LABS: Aspirgillus flavus Negative (Neg:<1:1); Aspirgillus fumigatus Negative (Neg:<1:1); Aspirgillus niger Negative (Neg:<1:1); Cytoplasmic Ab (C-ANCA) <1:20 titer (Neg:<1:20)
[2022-08-06 20:12] LABS: Immunoglobulin E 26 IU/mL (6-495); Perinuclear Ab (P-ANCA) <1:20 titer (Neg:<1:20)
== END | disposition home or self-care (01) ==
PROVIDERS: PCP Family Medicine; Referring Provider Nurse Practitioner Acute Care; Visit Provider Nurse Practitioner Acute Care
DX: R05.9 Cough, unspecified (principal); G47.33 Obstructive sleep apnea (adult) (pediatric)
CPT/HCPCS: 36415; 82785; 85025; 86003; 86256; 86606

== ENCOUNTER → 2022-09-01 | Outpatient (CLI) | payer MEDICARE, OTHER, SELFPAY ==
[2022-09-01 12:45] LABS: ALB/GLOB Ratio 0.6 RATIO (0.9-2.4); AST(SGOT) 18 U/L (15-37); Alanine Aminotransfer ALT/SGPT 27 U/L (16-61); Albumin, Serum 2.9 g/dL (3.2-5.0); Alkaline Phosphatase 113 U/L (45-117); Anion Gap 7 (5-15); BUN 19 mg/dL (7-18); BUN/Creat Ratio 22.2 RATIO (10-20); Calcium,Total 8.8 mg/dL (8.5-10.1); Chloride 102 mmol/L (98-107); Creatinine, Serum 0.86 mg/dL (0.70-1.30); EST Glomerular Filtration Rate 94 mL/min (>60); Est Glom Filt Rate - Afr Amer 114 mL/min (>60); Globulin 4.7 g/dL (2.2-4.2); Glucose 210 mg/dL (74-106); Potassium 4.6 mmol/L (3.5-5.1); Protein, Total 7.6 g/dL (6.4-8.2); Sodium Level 138 mmol/L (136-145)
[2022-09-01 13:12] LABS: Microalbumin:Creatinine Ratio 95.9 mg/g CRE (<30 mg/g CRE)
[2022-09-01 13:20] LABS: Hemoglobin A1c 7.7 % (3.8-5.6)
== END | disposition home or self-care (01) ==
LOC: BIMLAB 09:49
PROVIDERS: PCP Family Medicine; Referring Provider Family Medicine; Visit Provider Family Medicine
DX: E11.42 Type 2 diabetes mellitus with diabetic polyneuropathy (principal)
CPT/HCPCS: 36415; 80053; 82043; 82570; 83036

== ENCOUNTER → 2022-09-06 | Outpatient (CLI) | payer MEDICARE, OTHER, SELFPAY ==
--- NOTE | 2022-09-06 14:30 | PET_ITS ---
EXAMINATION: FDG PET-CT ? Head to Toe INDICATIONS: A 72-year-old male with history of multiple myeloma presenting for apparent initial staging examination. COMPARISON EXAMINATION: None available INDEX LESION SIZE SUV INTERPRETATION Axial skeleton, multifocal 4.2 (max) Fulfills quantitative criteria for viable neoplasm TECHNIQUE: Following the intravenous administration of 12.41 mCi of F-18 deoxyglucose via the right antecubital fossa, multiplanar image acquisitions of the head, neck, chest, abdomen and pelvis, lower extremities to the level of the bilateral feet, obtained at one hour post radiopharmaceutical administration contemporaneously interpreted with the current CT of the head, neck, chest, abdomen and pelvis, lower extremities to the level of the bilateral feet, dated 09/06/22 via coregistration reveals: BLOOD GLUCOSE LEVEL:?? 132 mg/dl?HEIGHT:?70 inches?WEIGHT: 334 lbs. FINDINGS: Head/Neck: There is no evidence of abnormal increased glucose metabolism in the pharyngeal mucosal space, parapharyngeal space, bilateral-lateral and anterior neck, hypopharynx and distribution of the laryngeal structures. Symmetric glucose metabolism is evident in the occipital, frontal, parietal and temporal lobes of the cerebral cortex, as well as normal visualization of the basal ganglia and cerebellar hemispheres. CHEST: There is no quantitative scintigraphic evidence of abnormal increased glucose metabolism within the context of the bilateral hemithorax pulmonary parenchyma, right and left hemithorax pleural interface, mediastinal structures and right-left thoracic perihilum. Pertinent chest CT findings are as follows. There is atherosclerotic calcification defined in the thoracic aorta without evidence of dilatation-aneurysm formation. Coronary arterial calcification is observed. Mediastinal and bilateral axillary soft tissue densities are ametabolic. There are no parenchymal densities-nodules defined in the right and left hemithorax with quantitatively significant increased FDG uptake. Abdomen/Pelvis: Normal physiologic distribution of the radiopharmaceutical is apparent in the hepatic (3.6) and splenic parenchyma, both renal units, bladder and visualized intestinal tract. Diffuse radiopharmaceutical concentration is noted in all four quadrants of the abdomen and pelvis. Pertinent abdomen and pelvis CT findings are as follows. There is atherosclerotic calcification defined in the abdominal aorta without evidence of dilatation-aneurysm formation. Pelvic arterial calcification is observed. Abdominal retroperitoneal soft tissue densities are non-glucose avid. Fat containing left inguinal hernia is noted. Right and left inguinal soft tissue densities are ametabolic. Skeletal: Scattered increased radiopharmaceutical concentration is noted in the thoracic and lumbar spine, the right iliac wing, posterior ilium, the left acetabulum. The calculated maximal standard uptake value is 4.2. PET/PET/CT Tumor WB Initial IMPRESSION: 1. ABNORMAL EXAMINATION INDICATIVE OF MALIGNANT VIABLE NEOPLASM. 2. Increased radiopharmaceutical concentration multifocally apparent in the axial skeletal structures fulfills quantitative criteria for viable osseous neoplasm. (Keily et al, Clinical Nuclear Medicine, 29:161, 2004). Electronic Signature Marcus Messina D.O. Accurate Quantification of SUVs for this report are calculated using the exclusive [employer]. ([place] Patent No. [id number] B2 [phone] [place] patent [phone]). Standardization and correction of the FDG SUV metric via [employer] technology allow for vendor non-specific objective quantitative examination comparison and optimization of the sensitivity and specificity of the FDG PET-CT examination. Electronically Signed: Marcus Msesina, at 22:47 EDT ,
== END | disposition home or self-care (01) ==
PROVIDERS: PCP Family Medicine; Referring Provider Internal Medicine Hematology & Oncology; Visit Provider Internal Medicine Hematology & Oncology
DX: C90.00 Multiple myeloma not having achieved remission (principal)
CPT/HCPCS: 78816; A9552

== ENCOUNTER 2022-11-02 15:50 | Emergency (ER) | payer MEDICARE, OTHER, SELFPAY ==
[2022-11-02 15:51] VITALS: BP 191/74; PULSE 88; RESP 16; TEMP 36.4; O2SAT 94; BMI 45.0
[2022-11-02 16:06] VITALS: O2SAT 94
--- NOTE | 2022-11-02 17:13 | CT_ITS ---
STUDY: CTA CHEST REASON FOR EXAM: Male, 72 years old. dypnea RADIATION DOSAGE (If Supplied By Facility): CTDIvol = ( 45.12 ) mGy, DLP = ( 837.30 ) mGycm TECHNIQUE: The examination was performed with the intravenous administration of IV 100mL Isovue-370. Post-processing of the angiographic images was performed, with multiplanar reformation and 3D reconstruction. Individualized dose optimization techniques were used for this CT. COMPARISON: PET scan 09/06/2022. FINDINGS: Normal enhancement of the main pulmonary artery and right and left pulmonary arteries. Normal enhancement of the bilateral peripheral pulmonary arteries. There is no demonstrated pulmonary embolism. Normal thoracic aorta and visualized great vessels. There is no demonstrated aortic dissection. Normal heart and pericardium. There are calcifications of the coronary arteries. Normal mediastinum. Normal hilar regions. Normal visualized trachea and bronchi. The lungs are hyper expanded, with flattening of the hemidiaphragms. Streaky densities suggestive of subsegmental atelectasis or scarring in both lower lobes worse on the right. No definite focal infiltrates. No effusions. 4 cm epididymal cyst in the anterior left thoracic wall. There are degenerative changes of thoracic spine. Normal visualized upper abdomen. CT/CTA Chest W/WO Contrast IMPRESSION: Normal CTA chest examination, without a demonstrated pulmonary embolism or arterial dissection. Probable chronic pulmonary disease. No definite acute chest disease. Electronically Signed: Kelby To MD at 19:34 EDT ,
--- NOTE | 2022-11-02 17:15 | EKG12_ITS ---
Test Reason : COUGH Blood Pressure : / mmHG Vent. Rate : 063 BPM Atrial Rate : 000 BPM P-R Int : 000 ms QRS Dur : 118 ms QT Int : 410 ms P-R-T Axes : 000 -16 197 degrees QTc Int : 419 ms Atrial fibrillation with a competing junctional pacemaker with premature ventricular or aberrantly co nducted complexes Septal infarct , age undetermined ST & T wave abnormality, consider inferolateral ischemia Abnormal ECG Confirmed by JUAN CARLOS BROWN, GOSIA ([id number]), marketing editor TATI PARKER ([id number]) on 11/03/2022 10:25:40 AM Referred By: Confirmed By:GOSIA RANGEL MD
--- NOTE | 2022-11-02 17:16 | EDS_ITS ---
HPI HPI - URI History of Present Illness Chief Complaint: Cough Narrative Narrative: 72-year-old male with history of multiple myeloma on chemotherapy with Dr. Booker. Patient states Dr. Booker sentiment to have a CTA of the chest because he is having shortness of breath and a cough. He denies any chest pain but has been having some upper back pain. No history of DVT/PE. Patient states he has no known cardiac disease that he knows of. He has hypertension, hyperlipidemia, obesity, COPD, CONCHA. No fevers or chills. He states his cough is actually better today. He feels well. ROS ROS ED Constitutional Constitutional ED: Denies chills, fever(s) or sweats Eyes Eyes: Denies blurry vision or change in vision ENT ENT ED: Denies ear pain or sore throat Cardiovascular Cardiovascular: Denies chest pain, palpitations or racing heartbeat Respiratory/Chest Respiratory/Chest: Reports cough; Denies dyspnea or sputum Gastrointestinal Gastrointestinal: Denies abdominal pain, constipation, diarrhea, nausea or vomiting Genitourinary Genitourinary ED: Denies dysuria, hematuria or urinary frequency Musculoskeletal Musculoskeletal: Reports back pain; Denies arthralgias, myalgias or neck pain Integumentary Denies abscess, Abrasions or rash Neurologic Neurologic: Denies headache(s), paresthesias or weakness Psychiatric Psychiatric: Denies anxiety, depression, suicidal ideation or suicidal thoughts Endocrine Endocrinology: Denies polydipsia or polyuria [facility] Medical History Abnormal electrocardiogram Atherosclerotic heart disease of [place] coronary artery without angina pectoris Chest pain Chicken pox COPD (chronic obstructive pulmonary disease) MESA (dyspnea on exertion) Erectile dysfunction Essential hypertension History of left heart catheterization (LHC) (~01/27/11) Measles Mixed hyperlipidemia Multiple myeloma Murmur Obesity CONCHA (obstructive sleep apnea) Palpitations Smoldering multiple myeloma SOB (shortness of breath) Type 2 diabetes mellitus Home Medications aspirin 81 mg tablet,delayed release (Adult Aspirin Regimen) 81 mg PO QDAY 08/19/17 [History Last Taken 06/17/20 10:00] atorvastatin 20 mg tablet (Lipitor) 20 mg PO QDAY 08/19/17 [History Last Taken 06/17/20 10:00] calcium carbonate 600 mg-vitamin D3 5 mcg (200 unit) tablet (Calcium 600 with Vitamin D3) 1 tab PO QDAY 08/19/17 [History Last Taken 06/17/20 10:00] magnesium 250 mg tablet 250 mg PO QDAY 08/19/17 [History Last Taken 06/17/20 10:00] metformin 1,000 mg tablet (Glucophage) 1,000 mg PO BID 08/19/17 [History Last Taken 06/17/20] multivitamin (Multiple Vitamins tablet) 1 tab PO QDAY 08/19/17 [History Last Taken 06/17/20 10:00] omega-3 fatty acids 1,000 mg capsule 1,000 mg PO QDAY 08/19/17 [History Last Taken 06/17/20 10:00] levomefolate Ca 3 mg-B6 35 mg-meB12 2 mg-algal oil 90.314 mg capsule (Metanx (algal oil)) 1 cap PO DAILY 12/16/17 [History Last Taken 06/17/20] albuterol sulfate 90 mcg/actuation aerosol inhaler (Ventolin HFA) 2 puff inhalation Q4H #18 grams 02/18/20 [Rx Last Taken Unknown] cholecalciferol (vitamin D3) 50 mcg (2,000 unit) tablet 50 mcg PO DAILY 05/14/22 [History Last Taken Unknown] diltiazem HCl 180 mg capsule,extended release 24 hr 180 mg PO DAILY 05/14/22 [History Last Taken Unknown] hydrochlorothiazide 25 mg tablet 25 mg PO DAILY 05/14/22 [History Last Taken Unknown] fluticasone fur. 200 mcg-umeclid 62.5 mcg-vilant 25 mcg inhalat.powder (Trelegy Ellipta) 1 inh inhalation DAILY #3 ea 06/25/22 [Rx Last Taken Unknown] dexamethasone 4 mg tablet 40 mg PO MONTHLY 10/12/22 [History Last Taken Unknown] Lactobacillus acidophilus 10 mg PO DAILY 10/14/22 [History Last Taken Unknown] acyclovir 400 mg tablet 400 mg PO BID 10/14/22 [History Last Taken Unknown] insulin aspart U-100 100 unit/mL (3 mL) subcutaneous pen (Novolog FlexPen U-100 Insulin aspart) 45 unit subcut QACDINNER 10/14/22 [History Last Taken Unknown] insulin aspart U-100 100 unit/mL (3 mL) subcutaneous pen (Novolog FlexPen U-100 Insulin aspart) 54 unit subcut QACLUNCH 10/14/22 [History Last Taken Unknown] insulin aspart U-100 [Novolog FlexPen U-100 Insulin] 34 unit subcut QACBREAK 10/14/22 [History Last Taken Unknown] insulin detemir U-100 [Levemir FlexTouch U100 Insulin] 78 unit subcut TIDWMEAL 10/14/22 [History Last Taken Unknown] irbesartan 300 mg-hydrochlorothiazide 12.5 mg tablet 1 tab PO DAILY 10/14/22 [History Last Taken Unknown] lenalidomide 25 mg capsule 25 mg PO .COMPLEX 10/14/22 [History Last Taken Unknown] omeprazole 40 mg capsule,delayed release 40 mg PO DAILY 10/14/22 [History Last Taken Unknown] ondansetron 8 mg disintegrating tablet 8 mg PO Q8H PRN nausea and vomiting 10/14/22 [History Last Taken Unknown] Allergy/AdvReac Type Severity Reaction Status Date / Time Penicillins Allergy Mild Rash Verified 11/02/22 16:06 Family History Father Myocardial infarction Mother Breast cancer Surgical History Bone spur removal History of cataract extraction Social History Smoking Status: Former smoker quit date: 04/25/02 pack-years: 31 alcohol intake: current alcohol intake frequency: holidays/special occasions only substance use type: does not use caffeine: Yes Type: coffee Number of servings: 5 EXAM Physical Exam Const Vital Signs: 11/02/22 15:51 11/02/22 16:06 11/02/22 17:47 Temperature 97.5 F L Temperature Source Temporal Pulse Rate 88 Respiratory Rate 16 Respiratory Effort Normal Non-Labored Respiratory Depth Normal Respiratory Pattern Normal Blood Pressure 191/74 H Blood Pressure Mean 113 Pulse Ox 94 91 Oxygen Delivery Method Room Air Room Air Room Air 11/02/22 19:55 11/02/22 19:55 Temperature Temperature Source Pulse Rate 75 75 Respiratory Rate 23 H 24 H Respiratory Effort Respiratory Depth Respiratory Pattern Blood Pressure 169/81 H 169/81 H Blood Pressure Mean 110 Pulse Ox 91 90 Oxygen Delivery Method Room Air Positive well nourished General Appearance ED: NAD HEENT Reports moist mucous membranes normocephalic and atraumatic Eyes PERRL and EOMs intact bilaterally Resp normal respiratory effort and clear to auscultation bilaterally Cardio Rate: regular rate Rhythm: regular rhythm GI non-tender Neuro oriented x3 and CN's II-XII intact bilaterally Sensorium / Orientation: alert Motor Exam: strength 5/5 throughout Psych mental status grossly normal Skin General Skin Exam: Negative for jaundice MDM MDM MDM Narrative Medical decision making narrative: 72-year-old male presenting for evaluation. He was told to come get a CTA of the chest by Dr. Booker out of concern for PE. Patient does have a history of PE or DVT. He states he had a cough which is actually improving. No fevers or chills. He does have a history of multiple myeloma and is on chemo. He is having some upper back pain which I believe was a concern for PE. No sharp pleuritic pain. CBC was obtained to assess white blood cell count, hemoglobin, platelets, differential. BMP to assess renal function and electrolytes. High-s ensitivity troponin and EKG to rule out cardiac ischemia. BNP to assess for CHF. Patient declined analgesia or antiemetics. CBC showed a leukocytosis of 12.7. Hemoglobin hematocrit are stable. Platelets normal at 323. Renal function and electrolytes unremarkable. High-sensitivity troponin 37. To 82.9. Chest x-ray was not obtained because he was getting his CTA. CTA was negative for PE or dissection and other acute process. Patient counseled on findings and I think she stable for discharge. Return precautions were discussed. Impression: 1. Upper back pain 2. Cough 3. Concern for PE Lab Data Labs: Laboratory Results - last 24 hr 11/02/22 17:45 WBC 12.7 H RBC 4.85 Hgb 11.9 L Hct 39.1 L MCV 80.6 MCH 24.5 L MCHC 30.4 L RDW Std Deviation 45.7 H RDW Coeff of Kavya 15.6 H Plt Count 323 MPV 10.5 Immature Gran % (Auto) 0.900 Neut % (Auto) 81.1 H Lymph % (Auto) 9.7 L [place] % (Auto) 5.7 Eos % (Auto) 2.4 Baso % (Auto) 0.2 Absolute Neuts (auto) 10.3 H Absolute Lymphs (auto) 1.24 Nucleated RBC % 0 Sodium 132 L Potassium 3.5 Chloride 95 L Carbon Dioxide 32.0 Anion Gap 5 BUN 14 Creatinine 0.92 Estim Creat Clear Calc 77.14 Est GFR (MDRD) Af Amer 105 Est GFR (MDRD) Non-Af 87 BUN/Creatinine Ratio 15.3 Glucose 118 H Calcium 8.6 Troponin I High Sens 37 B-Natriuretic Peptide 282.9 H Radiography Diagnostic Testing: Clinical Impression(s) from Imaging Studies Chest CTA 11/02/22 17:13 IMPRESSION: Normal CTA chest examination, without a demonstrated pulmonary embolism or arterial dissection. Probable chronic pulmonary disease. No definite acute chest disease. Electronically Signed: Kelby To MD at 19:34 EDT , Chest X-Ray 11/02/22 17:31 IMPRESSION: Possible mild atelectasis or infiltrate in the right lung base. Consider further evaluation with CT scan. Electronically Signed: Kelby To MD at 17:52 EDT , Discharge Plan Triage Chief Complaint: Cough ED Provider: Cesar Matos Dx/Rx/DC Orders Prescriptions: No Action calcium carbonate-vitamin D3 [Calcium 600 with Vitamin D3] 600 mg(1,500mg) - 200 unit tablet 1 tab PO QDAY magnesium 250 mg tablet 250 mg PO QDAY omega-3 fatty acids 1,000 mg capsule 1,000 mg PO QDAY multivitamin [Multiple Vitamins] tablet 1 tab PO QDAY aspirin [Adult Aspirin Regimen] 81 mg tablet,delayed release (DR/EC) 81 mg PO QDAY atorvastatin [Lipitor] 20 mg tablet 20 mg PO QDAY metformin [Glucophage] 1,000 mg tablet 1,000 mg PO BID insulin detemir U-100 [Levemir FlexTouch U100 Insulin] 78 unit SC TIDWMEAL insulin aspart U-100 [Novolog FlexPen U-100 Insulin] 34 unit SC QACBREAK [id number]-algal oil [Metanx (algal oil)] 3 mg-35 mg-2 mg -90.314 mg capsule 1 cap PO DAILY diltiazem HCl 180 mg capsule,extended release 24hr 180 mg PO DAILY hydrochlorothiazide 25 mg tablet 25 mg PO DAILY cholecalciferol (vitamin D3) 50 mcg (2,000 unit) tablet 50 mcg PO DAILY insulin aspart U-100 [Novolog FlexPen U-100 Insulin] 100 unit/mL (3 mL) insulin pen 54 unit subcut QACLUNCH insulin aspart U-100 [Novolog FlexPen U-100 Insulin] 100 unit/mL (3 mL) insulin pen 45 unit subcut QACDINNER acyclovir 400 mg tablet 400 mg PO BID irbesartan-hydrochlorothiazide 300-12.5 mg tablet 1 tab PO DAILY lenalidomide 25 mg capsule 25 mg PO .COMPLEX Rx Instructions: 25 mg orally; swallow whole with glass of water; do not open, crush, chew , break, or dissolve omeprazole 40 mg capsule,delayed release(DR/EC) 40 mg PO DAILY Lactobacillus acidophilus Capsule 10 mg PO DAILY dexamethasone 4 mg tablet 40 mg PO MONTHLY Rx Instructions: take 4 tabs with breakfast on day 22 of each cycle. ondansetron 8 mg tablet,disintegrating 8 mg PO Q8H PRN (Reason: nausea and vomiting) Ventolin HFA 90 mcg/actuation HFA aerosol inhaler 2 puff INHALATION Q4H Qty: 18 0RF Rx Instructions: administer with spacer Trelegy Ellipta 200-62.5-25 mcg blister with device 1 inh inhalation DAILY Qty: 3 3RF Primary Care Provider: Krishna Lane Referrals: Krishna Lane DO [Primary Care Provider] - Disposition Disposition: Home, Self Care Discharge Date/Time: 11/02/22 20:16
--- NOTE | 2022-11-02 17:20 | NURSING ---
NO OLD EKGS
--- NOTE | 2022-11-02 17:31 | RAD_ITS ---
STUDY: X-RAY CHEST REASON FOR EXAM: Male, 72 years old. chest pain TECHNIQUE: Single AP portable view of the chest. COMPARISON: None. FINDINGS: Normal lung volumes. Possible mild atelectasis or infiltrate in the right lung base. Consider further evaluation with CT scan. No gross effusions. Normal size heart. Normal mediastinum and mikhail. Normal visualized pulmonary arteries. Normal visualized aortic arch and descending thoracic aorta. There are diffuse degenerative changes of the visualized thoracic spine. Normal visualized ribs, clavicles, and shoulders. There is no demonstrated abnormality of the visualized soft tissue structures of the upper abdomen. RAD/Chest 1 View (Portable) IMPRESSION: Possible mild atelectasis or infiltrate in the right lung base. Consider further evaluation with CT scan. Electronically Signed: Kelby To MD at 17:52 EDT ,
[2022-11-02 17:47] VITALS: O2SAT 91
[2022-11-02 17:55] LABS: Absolute Lymphocyte Count 1.24 X10^3/uL (0.83-4.51); Absolute Neutrophil Count 10.3 X10^3/uL (2.0-7.7); Basophil# 0.03 X10^3/uL; Basophil% 0.2 % (0-1); Eosinophils% 2.4 % (0-5); Hematocrit 39.1 % (40-54); Hemoglobin 11.9 g/dL (13.0-16.5); Lymphocyte # 1.24 X10^3/ul (0.83-4.51); Lymphocyte % 9.7 % (19-41); Mean Corp Hgb Conc 30.4 g/dL (32-36); Mean Corpuscular Hgb 24.5 pg (27.0-32.0); Mean Corpuscular Volume 80.6 fL (80-94); Mean Platelet Vol. 10.5 fl (6.2-12.0); Monocyte# 0.72 X10^3/uL; Monocyte% 5.7 % (0-10); NRBC Flagged by Analyzer 0 % (0-5); Neutrophil # 10.31 X10^3/uL (2.7-7.7); Neutrophil % 81.1 % (47-70); Platelet Count 323 K/mm3 (150-450); RBC Distribution Width CV 15.6 % (11.6-14.6); RBC Distribution Width SD 45.7 fl (35.1-43.9); Red Blood Count 4.85 M/mm3 (4.6-6.2); White Blood Count 12.7 K/mm3 (4.4-11.0)
[2022-11-02 18:13] LABS: Anion Gap 5 (5-15); BUN 14 mg/dL (7-18); BUN/Creat Ratio 15.3 RATIO (10-20); Calcium,Total 8.6 mg/dL (8.5-10.1); Chloride 95 mmol/L (98-107); Creatinine, Serum 0.92 mg/dL (0.70-1.30); EST Glomerular Filtration Rate 87 mL/min (>60); Est Glom Filt Rate - Afr Amer 105 mL/min (>60); Estimated Creatinine Clearance 77.14 ml/min; Glucose 118 mg/dL (74-106); Potassium 3.5 mmol/L (3.5-5.1); Sodium Level 132 mmol/L (136-145); Troponin-I HS 37 pg/mL (3.0-78.0)
[2022-11-02 18:16] LABS: BNP,B-Type NATRIURETIC PEPTIDE 282.9 pg/mL (0-100)
[2022-11-02 19:55] VITALS: BP 169/81; PULSE 75; RESP 23; RESP 24; O2SAT 90; O2SAT 91
== END 2022-11-02 20:16 | disposition home or self-care (01) ==
PROVIDERS: Emergency Provider Student in an Organized Health Care Education/Training Program; PCP Family Medicine; Visit Provider Student in an Organized Health Care Education/Training Program
DX: M54.9 Dorsalgia, unspecified (principal); R05.9 Cough, unspecified; I25.10 Atherosclerotic heart disease of native coronary artery without angina pectoris; E66.9 Obesity, unspecified; G47.33 Obstructive sleep apnea (adult) (pediatric); Z87.891 Personal history of nicotine dependence
CPT/HCPCS: 71045; 71275; 80048; 83880; 84484; 85025; 93005; 99283; Q9967; A4216

== ENCOUNTER → 2022-12-01 | Outpatient (CLI) | payer MEDICARE, OTHER, SELFPAY ==
[2022-12-01 12:48] LABS: ALB/GLOB Ratio 0.6 RATIO (0.9-2.4); AST(SGOT) 12 U/L (15-37); Alanine Aminotransfer ALT/SGPT 36 U/L (16-61); Albumin, Serum 2.5 g/dL (3.2-5.0); Alkaline Phosphatase 97 U/L (45-117); Anion Gap 3 (5-15); BUN 13 mg/dL (7-18); BUN/Creat Ratio 17.3 RATIO (10-20); Calcium,Total 8.3 mg/dL (8.5-10.1); Chloride 99 mmol/L (98-107); Cholesterol 93 mg/dL (200); Creatinine, Serum 0.75 mg/dL (0.70-1.30); EST Glomerular Filtration Rate 109 mL/min (>60); Est Glom Filt Rate - Afr Amer 132 mL/min (>60); Globulin 4.1 g/dL (2.2-4.2); Glucose 71 mg/dL (74-106); High Density Lipoprotein 51 mg/dL; Potassium 4.2 mmol/L (3.5-5.1); Protein, Total 6.6 g/dL (6.4-8.2); Sodium Level 134 mmol/L (136-145); Triglycerides 53 mg/dL; Very Low Density Lipoprotein 11 mg/dL (5-40)
[2022-12-01 12:49] LABS: Hemoglobin A1c 8.5 % (3.8-5.6)
== END | disposition home or self-care (01) ==
LOC: BIMLAB 09:46
PROVIDERS: PCP Family Medicine; Referring Provider Internal Medicine Endocrinology, Diabetes & Metabolism; Visit Provider Internal Medicine Endocrinology, Diabetes & Metabolism
DX: E11.42 Type 2 diabetes mellitus with diabetic polyneuropathy (principal); E78.2 Mixed hyperlipidemia
CPT/HCPCS: 36415; 80053; 80061; 83036

== ENCOUNTER 2022-12-16 18:16 | Inpatient (IN) | payer MEDICARE, OTHER, SELFPAY ==
[2022-12-16 18:18] VITALS: BP 167/49; PULSE 85; RESP 22; TEMP 36.6; O2SAT 92; BMI 46.9
[2022-12-16 18:22] VITALS: BP 167/49; PULSE 78; RESP 22; TEMP 36.6; O2SAT 92
[2022-12-16 18:25] VITALS: O2SAT 92
--- NOTE | 2022-12-16 18:42 | ED.VIS.DYS ---
HPI History of Present Illness Chief Complaint: Shortness of Breath Informant: patient and spouse/S.O. Narrative Narrative: Patient presents with dyspnea. The patient has had progressive dyspnea over the last 2 weeks. He just got really bad today. They were going to drive in but he did not feel like he could walk from the car into the hospital. He does have a history of COPD. He has been given oxygen for some time but just to be used on as needed basis. But normally he has not used it. Over the last 2 weeks he has been starting to use it and uses it all day now. He does well at night but he states he puts CPAP on at night and that helps his breathing. He is also noticed a little bit of bilateral lower extremity edema which is not typical for him. But it does go away when he sleeps and elevates his legs. He is on some hydrochlorothiazide but no real history of congestive heart failure. He also is being treated from a myeloma. He has never had a PE or DVT. No family history. No travel. No asymmetry of leg swelling but both halves been swelling. He does see Dr. Lane for pulmonology and Dr. Booker for his multiple myeloma. He does not have much of a cough. No sputum production or blood. He is not having chest pain or pressure at any time. [facility] Medical History Abnormal electrocardiogram Atherosclerotic heart disease of [place] coronary artery without angina pectoris Chest pain Chicken pox COPD (chronic obstructive pulmonary disease) MESA (dyspnea on exertion) Erectile dysfunction Essential hypertension History of left heart catheterization (LHC) (~01/27/11) Measles Mixed hyperlipidemia Multiple myeloma Murmur Obesity CONCHA (obstructive sleep apnea) Palpitations Smoldering multiple myeloma SOB (shortness of breath) Type 2 diabetes mellitus Home Medications aspirin 81 mg tablet,delayed release (Adult Aspirin Regimen) 81 mg PO QDAY 08/19/17 [History Last Taken 06/17/20 10:00] atorvastatin 20 mg tablet (Lipitor) 20 mg PO QDAY 08/19/17 [History Last Taken 06/17/20 10:00] calcium carbonate 600 mg-vitamin D3 5 mcg (200 unit) tablet (Calcium 600 with Vitamin D3) 1 tab PO QDAY 08/19/17 [History Last Taken 06/17/20 10:00] magnesium 250 mg tablet 250 mg PO QDAY 08/19/17 [History Last Taken 06/17/20 10:00] metformin 1,000 mg tablet (Glucophage) 1,000 mg PO BID 08/19/17 [History Last Taken 06/17/20] multivitamin (Multiple Vitamins tablet) 1 tab PO QDAY 08/19/17 [History Last Taken 06/17/20 10:00] omega-3 fatty acids 1,000 mg capsule 1,000 mg PO QDAY 08/19/17 [History Last Taken 06/17/20 10:00] levomefolate Ca 3 mg-B6 35 mg-meB12 2 mg-algal oil 90.314 mg capsule (Metanx (algal oil)) 1 cap PO DAILY 12/16/17 [History Last Taken 06/17/20] cholecalciferol (vitamin D3) 50 mcg (2,000 unit) tablet 50 mcg PO DAILY 05/14/22 [History Last Taken Unknown] diltiazem HCl 180 mg capsule,extended release 24 hr 180 mg PO DAILY 05/14/22 [History Last Taken Unknown] hydrochlorothiazide 25 mg tablet 25 mg PO DAILY 05/14/22 [History Last Taken Unknown] dexamethasone 4 mg tablet 40 mg PO MONTHLY 10/12/22 [History Last Taken Unknown] Lactobacillus acidophilus 10 mg PO DAILY 10/14/22 [History Last Taken Unknown] acyclovir 400 mg tablet 400 mg PO BID 10/14/22 [History Last Taken Unknown] insulin aspart U-100 100 unit/mL (3 mL) subcutaneous pen (Novolog FlexPen U-100 Insulin aspart) 45 unit subcut QACDINNER 10/14/22 [History Last Taken Unknown] insulin aspart U-100 100 unit/mL (3 mL) subcutaneous pen (Novolog FlexPen U-100 Insulin aspart) 54 unit subcut QACLUNCH 10/14/22 [History Last Taken Unknown] insulin aspart U-100 [Novolog FlexPen U-100 Insulin] 34 unit subcut QACBREAK 10/14/22 [History Last Taken Unknown] insulin detemir U-100 [Levemir FlexTouch U100 Insulin] 78 unit subcut TIDWMEAL 10/14/22 [History Last Taken Unknown] irbesartan 300 mg-hydrochlorothiazide 12.5 mg tablet 1 tab PO DAILY 10/14/22 [History Last Taken Unknown] lenalidomide 25 mg capsule 25 mg PO .COMPLEX 10/14/22 [History Last Taken Unknown] omeprazole 40 mg capsule,delayed release 40 mg PO DAILY 10/14/22 [History Last Taken Unknown] ondansetron 8 mg disintegrating tablet 8 mg PO Q8H PRN nausea and vomiting 10/14/22 [History Last Taken Unknown] albuterol sulfate 90 mcg/actuation aerosol inhaler (Ventolin HFA) 2 puff inhalation Q4H #18 grams 12/07/22 [Rx Last Taken Unknown] umeclidinium 62.5 mcg-vilanterol 25 mcg/actuation powdr for inhalation (Anoro Ellipta) 1 inh inhalation QDAY #60 ea 12/09/22 [Rx Last Taken Unknown] Allergy/AdvReac Type Severity Reaction Status Date / Time Penicillins Allergy Mild Rash Verified 12/16/22 18:21 Family History Father Myocardial infarction Mother Breast cancer Surgical History Bone spur removal History of cataract extraction Social History Smoking Status: Former smoker quit date: 04/25/02 pack-years: 31 alcohol intake: current alcohol intake frequency: holidays/special occasions only substance use type: does not use caffeine: Yes Type: coffee Number of servings: 5 ROS ROS ED ROS Narrative A complete review of systems was performed and is negative except as documented in the history of present illness. Some specific details below. Constitutional: No recent fevers or chills. No real malaise but his energy level is down because he gets dyspneic. EYE: No discharge no change in vision. ENT: No difficulty swallowing. No swelling. No pain. No reflux symptoms. CV: Denies chest pain. He does state he has a history of an irregular heartbeat and that is longstanding and chronic for him. Respiratory: See history of present illness. GI: No abdominal pain. No nausea vomiting diarrhea. No blood in stool. : No frequency dysuria or hematuria. Musculoskeletal: No recent trauma. No pains. He has had new swelling over the last week or 2 in both legs. Skin: No rash. Nondiaphoretic. Neuro: No weakness or numbness. Endocrine: No polyuria or polydipsia. EXAM Physical Exam Narrative Exam Narrative: CONSTITUTIONAL: Patient is awake alert and appropriate. But he does have increased work of breathing. Not at all sleepy or lethargic though. HEENT: No notable trauma. Mucous membranes moist. EYES: No conjunctival injection. No pallor. NECK:No JVD. No stridor. CARDIOVASCULAR: Regular rate. Regular rhythm. No notable murmur. No JVD. Overall his rate is generally regular. But he does have extrasystoles. RESPIRATORY: Respiratory effort is increased. But I do not hear him cough while I am in the room. I do not hear rales or rhonchi. I really do not hear significant wheezing. He does appear to be moving air. But he does have a thick chest wall that does somewhat limit exam. But his auscultatory findings seem less than his symptoms. GASTROINTESTINAL: Obese but not distended. Bowel sounds are normal. No tenderness. No guarding. No rebound. No palpable mass. No bruit is heard. GENITOURINARY: No tenderness over the bladder. No CVA tenderness. MUSCULOSKELETAL: Atraumatic. He does have bilateral +1?2 pretibial edema. But no cord. No asymmetry. No distended veins. NEUROLOGICAL: Patient is alert and appropriate. No focal deficit noted. He is not sleepy or lethargic. No indication of CO2 retention clinically SKIN: No noted rashes. No diaphoresis. PSYCHIATRIC: Patient is calm. Mood is appropriate. Const Vital Signs: 12/16/22 18:18 12/16/22 18:22 12/16/22 18:25 Temperature 98 F 98 F Temperature Source Temporal Temporal Pulse Rate 85 78 Respiratory Rate 22 H 22 H Respiratory Effort Short of Breath Respiratory Depth Shallow Respiratory Pattern Tachypnea Blood Pressure 167/49 H 167/49 H Blood Pressure Mean 88 88 Pulse Ox 92 92 Oxygen Delivery Method Nasal Cannula Nasal Cannula Nasal Cannula Oxygen Flow Rate (L/min) 5 5 5 12/16/22 18:45 Temperature Temperature Source Pulse Rate 87 Respiratory Rate 18 Respiratory Effort Respiratory Depth Respiratory Pattern Normal Blood Pressure Blood Pressure Mean Pulse Ox Oxygen Delivery Method Oxygen Flow Rate (L/min) MDM MDM MDM Narrative Medical decision making narrative: I reviewed prior outpatient echocardiogram from June 10 of this year that showed an ejection fraction of 75%. After we get some results back patient's does now state that he had a rash that developed over the last couple days but seem to be getting better. It is lacy red blanches mostly across the lower abdomen a little bit on the right arm. Not vesicular. Not petechial or purpura. Patient CBC shows a mildly low hemoglobin but normal white count and platelets. Patient's electrolytes show no marked abnormalities. Patient's glucose was up a little bit at 224. His lactate is high at 3.5 likely due to hypoxia. He states even on oxygen sitting still he has been running 88 and 89 at home. Patient's troponin is negative at 30. Patient's BNP is elevated at 373. His CT a of the chest shows effusions. No definitive PE that I see. Final reading is similar. They do show some compressive atelectasis also. Patient's recheck. He does feel a little better with breathing treatment but he still not wheezing. He is moving good air. This patient has some low hemoglobin, low sodium, increased peripheral edema, bilateral effusions. I think this is likely pulmonary edema as a source of his symptoms. I am not seeing good indication of infectious etiology. With the rash I will send off viral studies. We will send off procalcitonin also. I think the patient's lactic acidosis is likely due to hypoxia but not infectious sepsis. He is not given IV fluids and antibiotics at this time as I think this would hurt the patient more than help. We discussed all these issues with the hospitalist. She plans to likely put the patient on a Lasix drip. We will hold off individual dosing now pending that. Lab Data Attestation: I reviewed the patient's lab results. Labs: Laboratory Results - last 24 hr 12/16/22 18:43 WBC 9.2 RBC 3.59 L Hgb 9.0 L Hct 29.0 L MCV 80.8 MCH 25.1 L MCHC 31.0 L RDW Std Deviation 58.4 H RDW Coeff of Kavya 20.6 H Plt Count 307 MPV 11.8 Immature Gran % (Auto) 2.700 H Neut % (Auto) 89.3 H Lymph % (Auto) 5.3 L [place] % (Auto) 1.9 Eos % (Auto) 0.5 Baso % (Auto) 0.3 Absolute Neuts (auto) 8.2 H Absolute Lymphs (auto) 0.49 L Nucleated RBC % 0 Differential Comment SEE COMMENT Platelet Estimate ADEQUATE RBC Morphology N CHROM Hypochromasia 1+ Anisocytosis 1+ Microcytosis 1+ Sodium 128 L Potassium 4.7 Chloride 93 L Carbon Dioxide 27.0 Anion Gap 8 BUN 28 H Creatinine 1.14 Estim Creat Clear Calc 62.26 Est GFR (MDRD) Af Amer 82 Est GFR (MDRD) Non-Af 67 BUN/Creatinine Ratio 24.6 H Glucose 224 H Lactic Acid 3.5 H* Calcium 8.2 L Troponin I High Sens 30 B-Natriuretic Peptide 373.4 H Radiography Diagnostic Testing: Clinical Impression(s) from Imaging Studies Chest CTA 12/16/22 20:00 IMPRESSION: No major central embolism but smaller peripheral emboli cannot be excluded due to bolus timing. Coronary artery disease and aortic valve disease. New moderate bilateral pleural effusions and bibasilar airspace disease. Electronically Signed: Aleks Vitale MD at 20:47 EDT Reading Location ID and State: [facility] / [place] Tel , Service support , EKG Initial EKG: Comments: My independent her potation the patient's EKG shows sinus with what does appear to be second-degree block. Occasional fusion beats. No acute ST elevation or depression. Overall rate is 78. DC interval varies. QRS duration is high normal at 07/24/2017 and QTc is long at 519 ms. But this EKG does look similar to a prior. Discharge Plan Dx/Rx/DC Orders Clinical Impression: Pulmonary edema, Acidosis, lactic, Respiratory failure with hypoxia, Hx of multiple myeloma, Acute hyponatremia Disposition Disposition: Acute Care [facility]
[2022-12-16 18:45] VITALS: PULSE 87; RESP 18
[2022-12-16] MEDS: Ipratropium/Albuterol Sulfate 3 ML AMPUL.NEB INHALATION (18:45)
[2022-12-16 18:55] LABS: Absolute Lymphocyte Count 0.49 X10^3/uL (0.83-4.51); Absolute Neutrophil Count 8.2 X10^3/uL (2.0-7.7); Basophil# 0.03 X10^3/uL; Basophil% 0.3 % (0-1); Eosinophil# 0.05 X10^3/uL; Eosinophils% 0.5 % (0-5); Lymphocyte # 0.49 X10^3/ul (0.83-4.51); Lymphocyte % 5.3 % (19-41); Mean Corpuscular Hgb 25.1 pg (27.0-32.0); Mean Corpuscular Volume 80.8 fL (80-94); Mean Platelet Vol. 11.8 fl (6.2-12.0); Monocyte# 0.18 X10^3/uL; Monocyte% 1.9 % (0-10); NRBC Flagged by Analyzer 0 % (0-5); Neutrophil # 8.24 X10^3/uL (2.7-7.7); Neutrophil % 89.3 % (47-70); POSITIVE DIFFERENTIAL YES; POSITIVE MORPHOLOGY YES; Platelet Count 307 K/mm3 (150-450); RBC Distribution Width CV 20.6 % (11.6-14.6); RBC Distribution Width SD 58.4 fl (35.1-43.9); Red Blood Count 3.59 M/mm3 (4.6-6.2); White Blood Count 9.2 K/mm3 (4.4-11.0)
[2022-12-16 19:23] LABS: Differential Indicated SCAN CRITERIA MET
[2022-12-16 19:25] LABS: Anisocytosis 1+; Hypochromasia 1+; Microcytosis 1+; Platelet Estimate ADEQUATE (ADEQ); Red Cell Morphology N CHROM NORMAL (NORM C&C)
[2022-12-16 19:33] LABS: Anion Gap 8 (5-15); BUN 28 mg/dL (7-18); BUN/Creat Ratio 24.6 RATIO (10-20); Calcium,Total 8.2 mg/dL (8.5-10.1); Chloride 93 mmol/L (98-107); Creatinine, Serum 1.14 mg/dL (0.70-1.30); EST Glomerular Filtration Rate 67 mL/min (>60); Est Glom Filt Rate - Afr Amer 82 mL/min (>60); Estimated Creatinine Clearance 62.26 ml/min; Glucose 224 mg/dL (74-106); Potassium 4.7 mmol/L (3.5-5.1); Sodium Level 128 mmol/L (136-145); Troponin-I HS 30 pg/mL (3.0-78.0)
[2022-12-16 19:38] LABS: BNP,B-Type NATRIURETIC PEPTIDE 373.4 pg/mL (0-100)
[2022-12-16 19:40] LABS: Lactic Acid 3.5 mmol/L (0.4-1.9)
--- NOTE | 2022-12-16 20:00 | CT_ITS ---
STUDY: CTA CHEST REASON FOR EXAM: Male, 72 years old. PE RADIATION DOSAGE (If Supplied By Facility): CTDIvol = ( 25.72 ) mGy, DLP = ( 580.22 ) mGycm TECHNIQUE: The examination was performed with the intravenous administration of IV 100mL Isovue-370. Post-processing of the angiographic images was performed, with multiplanar reformation and 3D reconstruction. Individualized dose optimization techniques were used for this CT. COMPARISON: CT chest November 02, 2022. Chest x-ray November 02, 2022.. FINDINGS: Normal enhancement of the main pulmonary artery and right and left pulmonary arteries. There is limited enhancement of the bilateral peripheral pulmonary arteries. No major central embolism but smaller peripheral emboli cannot be excluded due to poor opacification. Normal thoracic aorta and visualized great vessels. There is no demonstrated aortic dissection. Calcific coronary artery disease and calcific aortic valve disease. Borderline nonspecific mediastinal lymphadenopathy. Normal hilar regions. Normal visualized trachea and bronchi. Moderate bilateral pleural effusions and bibasilar airspace disease. Normal pulmonary parenchyma. Normal pleura. Well-circumscribed incidental 4 cm stable cystic lesion subcutaneous tissues left breast. Spondylosis. Normal visualized upper abdomen. CT/CTA Chest W/WO Contrast IMPRESSION: No major central embolism but smaller peripheral emboli cannot be excluded due to bolus timing. Coronary artery disease and aortic valve disease. New moderate bilateral pleural effusions and bibasilar airspace disease. Electronically Signed: Aleks Vitale MD at 20:47 EDT ,
--- NOTE | 2022-12-16 21:43 | HP.PCM.HOS_ITS ---
HPI - General General Date of Admission: 12/16/22 Date of Service: 12/16/22 Chief Complaint: Shortness of breath HPI Narrative CYN MARTINEZ, is a 72 M who presented to department at [facility] on 12/17/2022 with shortness of breath. The patient has had progressive dyspnea and lower extremity edema that has progressively gotten worse over the last 2 weeks. He has oxygen to utilize as needed at home but typically does not re quire oxygen however over the last 2 weeks he has been using it regularly throughout the day. He does wear CPAP at night and states that this helps his breathing. He also reports that he has had increased lower extremity edema that is worsening. Currently he has pitting edema up to his knees. He stated typically had been going away with elevation however recently it has not been. He is on hydrochlorothiazide at baseline but no Lasix and has no real history of congestive heart failure. He is being treated for myeloma at baseline and follows with Dr. Booker. He has a bit of a chronic cough but no change in his chronic cough and no sputum production. He has had no fever or chills and den ied any chest pain. Patient also reports that he is developed a mildly pruritic rash located on his abdomen/flank/back and arms. Vital signs on presentation showed a temperature of 98, blood pressure 167/49, respiratory rate was 22 and oxygen saturation was 92% on 5 L nasal cannula. Pulse ox on room air was not obtained however as noted above he does not typically wear oxygen. His CBC shows a acute on chronic anemia with a drop in his hemoglobin from 11.2-9.0 but normal white count and normal platelet count. He does have a bit of a left shift. His sodium is low at 128. BUN is 28 and serum creatinine is 1.14. His serum creatinine is very slightly above his baseline of 0.7-1.0. His glucose was 224. Initial lactate was 3.5 and I suspect this is related to his hypoxia. Initial troponin was 30. His BNP was markedly elevated at 373.7. Procalcitonin was low at 0.06. With his history of myeloma a CTA of his chest was performed and showed no central PE however contrast bolus was not great and peripheral emboli cannot be excluded. He also had new moderate bilateral effusions and bilateral compressive atelectasis. In the emergency department he was treated with antibiotics as there was some concern for pneumonia however with no cough, fever and a low procalcitonin with bilateral compressive atelectasis I think the risk for infection is low. He was also treated with diuresis. 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 Chest pain Chicken pox COPD (chronic obstructive pulmonary disease) MESA (dyspnea on exertion) Erectile dysfunction Essential hypertension History of left heart catheterization (LHC) (~01/27/11) Measles Mixed hyperlipidemia Multiple myeloma Murmur Obesity CONCHA (obstructive sleep apnea) Palpitations Smoldering multiple myeloma SOB (shortness of breath) Type 2 diabetes mellitus Home Medications aspirin 81 mg tablet,delayed release (Adult Aspirin Regimen) 81 mg PO QDAY 08/19/17 [History Last Taken 06/17/20 10:00] atorvastatin 20 mg tablet (Lipitor) 20 mg PO QDAY 08/19/17 [History Last Taken 06/17/20 10:00] calcium carbonate 600 mg-vitamin D3 5 mcg (200 unit) tablet (Calcium 600 with Vitamin D3) 1 tab PO QDAY 08/19/17 [History Last Taken 06/17/20 10:00] magnesium 250 mg tablet 250 mg PO QDAY 08/19/17 [History Last Taken 06/17/20 10:00] metformin 1,000 mg tablet (Glucophage) 1,000 mg PO BID 08/19/17 [History Last Taken 06/17/20] omega-3 fatty acids 1,000 mg capsule 1,000 mg PO QDAY 08/19/17 [History Last Taken 06/17/20 10:00] levomefolate Ca 3 mg-B6 35 mg-meB12 2 mg-algal oil 90.314 mg capsule (Metanx (algal oil)) 1 cap PO DAILY 12/16/17 [History Last Taken 06/17/20] cholecalciferol (vitamin D3) 50 mcg (2,000 unit) tablet 50 mcg PO DAILY 05/14/22 [History Last Taken Unknown] diltiazem HCl 180 mg capsule,extended release 24 hr 180 mg PO DAILY 05/14/22 [History Last Taken Unknown] hydrochlorothiazide 25 mg tablet 25 mg PO DAILY 05/14/22 [History Last Taken Unknown] dexamethasone 4 mg tablet 40 mg PO .weekly 10/12/22 [History Last Taken Unknown] acyclovir 400 mg tablet 400 mg PO BID 10/14/22 [History Last Taken Unknown] insulin aspart U-100 100 unit/mL (3 mL) subcutaneous pen (Novolog FlexPen U-100 Insulin aspart) 45 unit subcut QACDINNER 10/14/22 [History Last Taken Unknown] insulin aspart U-100 100 unit/mL (3 mL) subcutaneous pen (Novolog FlexPen U-100 Insulin aspart) 54 unit subcut QACLUNCH 10/14/22 [History Last Taken Unknown] insulin aspart U-100 [Novolog FlexPen U-100 Insulin] 34 unit subcut QACBREAK 10/14/22 [History Last Taken Unknown] insulin detemir U-100 [Levemir FlexTouch U100 Insulin] 78 unit subcut TIDWMEAL 10/14/22 [History Last Taken Unknown] irbesartan 300 mg-hydrochlorothiazide 12.5 mg tablet 1 tab PO DAILY 10/14/22 [History Last Taken Unknown] lenalidomide 25 mg capsule 25 mg PO .COMPLEX 10/14/22 [History Last Taken Unknown] omeprazole 40 mg capsule,delayed release 40 mg PO DAILY PRN nause 10/14/22 [History Last Taken Unknown] ondansetron 8 mg disintegrating tablet 8 mg PO Q8H PRN nausea and vomiting 10/14/22 [History Last Taken Unknown] albuterol sulfate 90 mcg/actuation aerosol inhaler (Ventolin HFA) 2 puff inhalation Q4H #18 grams 12/07/22 [Rx Last Taken Unknown] umeclidinium 62.5 mcg-vilanterol 25 mcg/actuation powdr for inhalation (Anoro Ellipta) 1 inh inhalation QDAY #60 ea 12/09/22 [Rx Last Taken Unknown] insulin aspart U-100 100 unit/mL subcutaneous solution (Novolog U-100 Insulin aspart) 45 unit subcut QHS diabetes 12/17/22 [History Last Taken Unknown] Allergy/AdvReac Type Severity Reaction Status Date / Time Penicillins Allergy Mild Rash Verified 12/16/22 18:21 Family History Father Myocardial infarction Mother Breast cancer Surgical History Bone spur removal History of cataract extraction Social History Smoking Status: Former smoker quit date: 04/25/02 pack-years: 31 alcohol intake: current alcohol intake frequency: holidays/special occasions only substance use type: does not use caffeine: Yes Type: coffee Number of servings: 5 ROS Constitutional Constitutional: Denies anorexia, change in weight, chills, fatigue, fever(s), malaise, night sweats, weakness or other Eyes Eyes: Denies blurry vision, change in eye color, change in vision, discharge from eye(s), double vision, erythema, eye pain, loss of vision or other ENT HEENT: Denies abnormal hearing, dysphagia, ear pain, epistaxis, headache(s), hearing loss, nasal congestion, nasal discharge, post nasal drip, sinus pressure, sore throat or other Cardiovascular Cardiovascular: Reports dyspnea on exertion and edema; Denies chest pain, cla udication, lightheadedness, orthopnea, palpitations, paroxysmal nocturnal dyspnea, rapid heart rate, syncope or other Respiratory/Chest Respiratory/Chest: Reports dyspnea, shortness of breath at rest and shortness of breath with exertion; Denies cough, excessive phlegm production, hemoptysis, productive cough, wheezing or other Gastrointestinal Gastrointestinal: Denies abdominal pain, coffee ground emesis, constipation, diarrhea, dyspepsia, hematemesis, hematochezia, loose stools, melena, nausea, vomiting or other Genitourinary Genitourinary: Denies burning urination, difficulty urinating, dysuria, hematuria, nocturia, urinary frequency, urinary hesitancy, urinary incontinence, urinary urgency or other Musculoskeletal Musculoskeletal: Denies arthralgias, back pain, joint pain, joint stiffness, joint swelling, myalgias, neck pain or other Neurologic Neurologic: Denies abnormal gait, abnormal speech, confusion, disequilibrium, dizziness, focal weakness, headache(s), numbness, paresthesias, seizure-like activity, seizures, syncope, tingling, tremor(s) or other Psychiatric Psychiatric: Denies anxiety, depression, homicidal ideation, suicidal ideation or other Endocrine Endocrinology: Denies change in body appearance, cold intolerance, excessive sweating, heat intolerance, polydipsia, polyuria or other Hematologic/Lymphatic Hematologic/Lymphatic: Denies anemia, easy bleeding, easy bruising, lymphadenopathy or other Allergic/Immunologic Allergic/Immunologic: Denies rhinitis, hives, eczemia, asthma or other Vital Signs Vital Signs Vital Signs: 12/16/22 18:18 12/16/22 18:22 12/16/22 18:25 Temperature 98 F 98 F Temperature Source Temporal Temporal Pulse Rate 85 78 Respiratory Rate 22 H 22 H Respiratory Effort Short of Breath Respiratory Depth Shallow Respiratory Pattern Tachypnea Blood Pressure 167/49 H 167/49 H Blood Pressure Mean 88 88 Pulse Ox 92 92 Oxygen Delivery Method Nasal Cannula Nasal Cannula Nasal Cannula Oxygen Flow Rate (L/min) 5 5 5 12/16/22 18:45 Temperature Temperature Source Pulse Rate 87 Respiratory Rate 18 Respiratory Effort Respiratory Depth Respiratory Pattern Normal Blood Pressure Blood Pressure Mean Pulse Ox Oxygen Delivery Method Oxygen Flow Rate (L/min) Weight Weight: 148.325 kg Body Mass Index (BMI) 46.9 Physical Exam Const alert, oriented x3 and no apparent distress Constitutional Narrative: Morbidly obese, pleasant, white male, sitting up in bed in the emergency department, at bedside, appears nontoxic, somewhat tachypneic with conversation however no signs of respiratory extremis General Appearance: cooperative HEENT normocephalic, head/scalp atraumatic, hearing grossly normal bilaterally and moist oral mucous membranes HEENT Narrative: Mallampati 3-4, no thrush Eyes PERRL, EOMs intact bilaterally and conjunctivae normal Eyes Narrative: No scleral icterus Neck supple Neck Narrative: Neck is short and thick, JVD present, trachea midline Resp no retractions, no use of accessory muscles and No clear to auscultation b ilaterally Resp Narrative: Diffusely diminished with few scattered end expiratory crackles at bilateral bases, mild tachypnea, exam is somewhat limited by body habitus Auscultation: crackles; Negative for rhonchi or wheezes Cardio regular rate, regular rhythm, S1 normal heart sound, S2 normal heart sound, no murmurs, no rub, no gallops and no clicks Cardio Narrative: Distant due to body habitus GI normal to inspection, nondistended, normoactive bowel sounds, soft to palpation and non-tender GI Narrative: Edema noted at distal abdomen with some pitting Extremity Extremity Narrative: 2+ bilateral lower extremity pitting edema that extends up to just below his knee joint, no clubbing or cyanosis Skin No no rashes or lesions noted, no wounds, skin turgor normal, no jaundice, no petechiae and no mottling Skin Narrative: Reticular rash noted on lower abdomen and back, upper bilateral arms Neuro oriented x3, CN's II-XII intact bilaterally, moves all extremities and no focal motor deficits Speech: speech normal Psych affect normal Psych Narrative: Extremely pleasant Results Lab / Micro Data 12/16/22 18:43 12/16/22 18:43 Labs: Laboratory Results - last 24 hr 12/16/22 18:43: WBC 9.2, RBC 3.59 L, Hgb 9.0 L, Hct 29.0 L, MCV 80.8, MCH 25.1 L , MCHC 31.0 L, RDW Std Deviation 58.4 H, RDW Coeff of Kavya 20.6 H, Plt Count 307, MPV 11.8, Immature Gran % (Auto) 2.700 H, Neut % (Auto) 89.3 H, Lymph % (Auto) 5.3 L, [place] % (Auto) 1.9, Eos % (Auto) 0.5, Baso % (Auto) 0.3, Absolute Neuts (auto) 8.2 H, Absolute Lymphs (auto) 0.49 L, Nucleated RBC % 0, Differential Comment SEE COMMENT, Platelet Estimate ADEQUATE, RBC Morphology N CHROM, Hypochromasia 1+, Anisocytosis 1+, Microcytosis 1+, Sodium 128 L, Potassium 4.7, Chloride 93 L, Carbon Dioxide 27.0, Anion Gap 8, BUN 28 H, Creatinine 1.14, Estim Creat Clear Calc 62.26, Est GFR (MDRD) Af Amer 82, Est GFR (MDRD) Non-Af 67, BUN/Creatinine Ratio 24.6 H, Glucose 224 H, Lactic Acid 3.5 H*, Calcium 8.2 L, Troponin I High Sens 30, B-Natriuretic Peptide 373.4 H Radiology Impression Chest CTA 12/16/22 20:00 IMPRESSION: No major central embolism but smaller peripheral emboli cannot be excluded due to bolus timing. Coronary artery disease and aortic valve disease. New moderate bilateral pleural effusions and bibasilar airspace disease. Electronically Signed: Aleks Vitale MD at 20:47 EDT , Assessment & Plan Assessment/Plan (1) Acute respiratory failure with hypoxia: (2) Hyponatremia: (3) Lactic acidosis: (4) Acute on chronic heart failure with preserved ejection fraction: (5) Bilateral pleural effusion: (6) Rash: PLAN: Plan Acute hypoxic respiratory failure secondary to acute on chronic heart failure with preserved ejection fraction -Last echo on 06/10/2022 shows EF of 75% with indeterminate diastolic function, sigmoid septum, mild left atrial enlargement, mild mitral valve and tricuspid valve insufficiency, trivial aortic valve insufficiency and right ventricular systolic pressure 45 mmHg. -We will repeat echocardiogram given new issues -Lasix drip -1500 cc fluid restriction -Daily weights -Sodium restriction -Cycle cardiac enzymes -Procalcitonin is low -Check respiratory viral panel especially given reticular rash -Check strep pneumo and Legionella antigens -We will hold off on empiric antibiotics for right now as I do feel that this is likely not infectious related -Continue supplemental oxygen currently requiring 6 L -Wean as tolerated Bilateral pleural effusions -Compression atelectasis noted bilaterally which is likely contributing to his hypoxia -Incentive spirometry ordered -Diuresis as above -Consider follow-up chest x-ray if respiratory status does not improve Lactic acidosis -Doubt acute infection or sepsis -Likely related to hypoxia -Repeat per protocol but I do anticipate that this will improve with continuously supplemental oxygen Acute hyponatremia -Likely related to volume overload -Start diuresis as noted above -Repeat BMP in a.m. -If does not improve with volume removal may need to consider further work-up Pulmonary hypertension -This seems to be worsening compared to previous echo -Repeat echo pending -Suspect who group 3 Rash -Patient and family state that it is overall improving -Respiratory viral panel is pending -As needed Benadryl and continue to monitor CONCHA -Continue CPAP 13 cm of water -At home unit Multiple myeloma -Continue home medication -Continue outpatient follow-up with Dr. Booker -Continue acyclovir DM-2 -Continue home insulin regimen -Patient takes odd dosing of basal insulin and I did confirm that this is accurate -Hold home metformin -Carb controlled diet -Monitor sugars on current regimen and add SSI if sugars are elevated -Continue outpatient endocrinology follow-up Vitamin D deficiency -Continue home supplement Hypertension -Hold hydrochlorothiazide -Continue verapamil -Patient is also documented to be on irbesartan/HCTZ--> will need to verify and if so hold HCTZ component and discontinue at discharge as he would then be on 2 separate doses and pills with HCTZ GERD -Continue PPI History of COPD -Continue home inhalers Morbid obesity -BMI is 48.4 -Recommend weight loss -Complicates treatment, prognosis, outcomes DVT prophylaxis -Lovenox 40 twice daily CODE STATUS -Full code is verified on admission Charges/Coding Visit Charges Inpatient E&M: 30318 Init Hosp L3
[2022-12-16 22:29] VITALS: BP 133/56; PULSE 73; RESP 24; TEMP 37.1; O2SAT 94
[2022-12-16 22:51] LABS: Reflex Lactate? Y
--- NOTE | 2022-12-16 23:27 | ECHOCS_ITS ---
Reason For Study: CHF Procedure This was a 2D Doppler, Color Flow transthoracic echocardiogram. The study was technically difficult. Contrast injection was performed. Exam performed portable in patient room. Left Ventricle Normal LV size. Left ventricular systolic function is hyperdynamic. The left ventricular ejection fraction is 70 %. Diastolic function is indeterminate. Right Ventricle The right ventricle is not well visualized. Atria The left atrium is severely enlarged. Normal right atrium. Mitral Valve Mild-Moderate (1-2+) mitral valve insufficiency. Tricuspid Valve The tricuspid valve is not well visualized. Trivial tricuspid valve insufficiency. Right ventricular systolic pressure estimated to be 53 mmHg. Aortic Valve The aortic valve is not well visualized. Mild aortic stenosis. Pulmonic Valve The pulmonic valve is not well visualized. Great Vessels The aortic root is not well visualized. Pericardium/Pleural No pericardial effusion. Medication Diluted definity 3ml given slow IV push to enhance endocardial definition. MMode/2D Measurements & Calculations RVDd: 5.1 cm LVOT diam: 2.0 cm Ao root diam: 3.6 cm LA dimension: 5.0 cm LVOT area: 3.1 cm2 LAV(MOD-bp): 119.0 ml LA A4 area: 26.3 cm2 RA A4 area: 22.3 cm2 LAV(MOD-bp) Indexed: 46.3 ml/m2 LAV(MOD-sp2): 114.4 ml LAV(MOD-sp4): 93.0 ml TAPSE: 2.2 cm Time Measurements MV dec time: 0.24 sec Doppler Measurements & Calculations MV E max brad: 130.5 cm/sec Lat Peak E' Brad: 12.7 cm/sec Med Peak E' Brad: 10.8 cm/sec MV A max brad: 128.2 cm/sec E/E' lat: 10.3 E/E' med: 12.1 MV E/A: 1.0 MV V2 max: 129.6 cm/sec MV P1/2t max brad: 127.5 cm/sec Ao V2 max: 270.1 cm/sec MV max P.8 mmHg MV P1/2t: 100.8 msec Ao max P.3 mmHg MV V2 mean: 82.2 cm/sec MV dec slope: 370.6 cm/sec2 Ao V2 mean: 192.6 cm/sec MV mean P.2 mmHg Ao mean P.2 mmHg MV V2 VTI: 32.8 cm MVA(P1/2t): 2.2 cm2 Ao V2 VTI: 52.5 cm MVA(VTI): 3.0 cm2 AV (velocity ratio): 0.62 ANTWAN(I,D): 1.9 cm2 ANTWAN(V,D): 1.6 cm2 LV V1 max: 143.7 cm/sec MR max brad: 523.0 cm/sec SV(LVOT): 99.8 ml LV V1 max P.3 mmHg MR max P.4 mmHg LV V1 mean P.7 mmHg MR mean brad: 404.6 cm/sec LV V1 mean: 113.2 cm/sec MR mean P.0 mmHg LV V1 VTI: 32.5 cm MR VTI: 139.1 cm PA V2 max: 105.1 cm/sec TR max brad: 308.8 cm/sec TR max P.2 mmHg ECHO/Echo Complete W/ Contrast Interpretation Summary The left ventricular ejection fraction is 70 %. Diastolic function is indeterminate. The left atrium is severely enlarged. Mild-Moderate (1-2+) mitral valve insufficiency. Right ventricular systolic pressure estimated to be 53 mmHg. Mild aortic stenosis. The study was technically difficult. Ordering Physician: Fernanda Staples Performed By: Reinier Rey RCS
[2022-12-16 23:42] VITALS: BP 158/73; PULSE 76; RESP 16; TEMP 36.5; O2SAT 98; BMI 48.4
[2022-12-17] VITALS (10 sets, daily range): BP systolic 141–172; BP diastolic 43–65; PULSE 78–90; RESP 16–22; TEMP 36.5–37.1; O2SAT 93–98; BMI 48.2
[2022-12-17] MEDS: Enoxaparin 40 MG/0.4 ML Syringe SC ×3 (00:15→20:14)
[2022-12-17] MEDS: Furosemide 40 MG/4 ML Vial IV (00:30)
[2022-12-17] MEDS: Furosemide 500 MG in Empty Viaflex 50 mL 1 EACH CONT INF (00:30)
[2022-12-17 00:39] LABS: Troponin-I HS 33 pg/mL (3.0-78.0)
[2022-12-17 00:44] LABS: Lactic Acid 2.2 mmol/L (0.4-1.9)
[2022-12-17 00:46] LABS: Procalcitonin 0.06 ng/mL (0.00-0.09)
[2022-12-17 00:55] LABS: Bedside Glucose 248 mg/dL (74-106)
[2022-12-17] MEDS: Insulin Lispro 100 UNIT/ML INSULN.PEN 45 UNIT SC ×4 (01:55→20:21)
[2022-12-17 02:33] LABS: Troponin-I HS 35 pg/mL (3.0-78.0)
[2022-12-17] MEDS: DiphenhydrAMINE 25 MG Capsule PO (02:38)
--- NOTE | 2022-12-17 03:33 | CPS ---
Pt brought own cpap in. Bled in 6L o2, ready for pt use.
[2022-12-17 05:38] LABS: Absolute Lymphocyte Count 0.44 X10^3/uL (0.83-4.51); Absolute Neutrophil Count 8.4 X10^3/uL (2.0-7.7); Basophil# 0.02 X10^3/uL; Basophil% 0.2 % (0-1); Eosinophil# 0.01 X10^3/uL; Eosinophils% 0.1 % (0-5); Hematocrit 27.3 % (40-54); Hemoglobin 8.5 g/dL (13.0-16.5); Lymphocyte # 0.44 X10^3/ul (0.83-4.51); Lymphocyte % 4.6 % (19-41); Mean Corp Hgb Conc 31.1 g/dL (32-36); Mean Corpuscular Hgb 25.2 pg (27.0-32.0); Mean Platelet Vol. 11.3 fl (6.2-12.0); Monocyte# 0.46 X10^3/uL; Monocyte% 4.8 % (0-10); NRBC Flagged by Analyzer 0 % (0-5); Neutrophil % 88.1 % (47-70); POSITIVE DIFFERENTIAL YES; POSITIVE MORPHOLOGY YES; Platelet Count 348 K/mm3 (150-450); RBC Distribution Width CV 20.8 % (11.6-14.6); RBC Distribution Width SD 59.6 fl (35.1-43.9); Red Blood Count 3.37 M/mm3 (4.6-6.2); White Blood Count 9.5 K/mm3 (4.4-11.0)
[2022-12-17 06:08] LABS: Differential Indicated SCAN CRITERIA MET
[2022-12-17 06:14] LABS: ALB/GLOB Ratio 0.7 RATIO (0.9-2.4); AST(SGOT) 10 U/L (15-37); Alanine Aminotransfer ALT/SGPT 44 U/L (16-61); Albumin, Serum 2.6 g/dL (3.2-5.0); Alkaline Phosphatase 102 U/L (45-117); Anion Gap 10 (5-15); BUN 26 mg/dL (7-18); BUN/Creat Ratio 22.4 RATIO (10-20); Calcium,Total 7.8 mg/dL (8.5-10.1); Chloride 94 mmol/L (98-107); Creatinine, Serum 1.16 mg/dL (0.70-1.30); EST Glomerular Filtration Rate 66 mL/min (>60); Est Glom Filt Rate - Afr Amer 80 mL/min (>60); Estimated Creatinine Clearance 59.26 ml/min; Globulin 3.9 g/dL (2.2-4.2); Glucose 209 mg/dL (74-106); Phosphorus 3.1 mg/dL (2.5-4.9); Potassium 3.9 mmol/L (3.5-5.1); Protein, Total 6.5 g/dL (6.4-8.2); Sodium Level 132 mmol/L (136-145); Thyroid Stim Hormone (TSH) 0.34 uIU/mL (0.358-3.74); Troponin-I HS 44 pg/mL (3.0-78.0)
--- NOTE | 2022-12-17 06:18 | PCM.HOSP.N ---
Hospitalist Note Hemoglobin dropped again from 9-8.5 despite diuresis. I am unclear how much she is diuresed however he is on a Lasix drip. We will check iron studies and guaiac stool.
[2022-12-17 06:22] LABS: Anisocytosis 2+; Basophilic Stippling 1+; Differential Comment SCANNED; Ovalocyte 1+; Platelet Morphology LARGE
[2022-12-17 07:08] LABS: Ferritin 183 ng/mL (26-388); Iron 53 ug/dL (65-175); Iron Binding Capacity,Total 322 ug/dL (250-450); PERCENT IRON SATURATION 16.5 % (15.0-55.0); T4 Free Direct 1.46 ng/dL (0.76-1.46)
[2022-12-17] MEDS: Budesonide Respules 0.5 MG/2 ML AMPUL.NEB. INHALATION ×2 (07:11→20:20)
[2022-12-17] MEDS: Albuterol 2.5 MG/3 ML VIAL.NEB. INHALATION ×3 (07:11→20:20)
[2022-12-17] MEDS: Insulin Lispro 100 UNIT/ML INSULN.PEN 34 UNIT SC (08:05)
[2022-12-17] MEDS: Glucerna Shake 120 ML LIQUID PO ×3 (08:11→16:34)
[2022-12-17] MEDS: Insulin Glargine-YFGN 100 UNIT/ML Pen 78 UNIT SC ×3 (08:11→16:36)
[2022-12-17 08:32] LABS: Bedside Glucose 273 mg/dL (74-106)
--- NOTE | 2022-12-17 08:48 | PCM.PN.HOSP ---
Reason for Visit Reason for Visit: Diagnoses Hypo-osmolality and hyponatremia (12/16/22) Acidosis, unspecified (12/16/22) Acute on chronic diastolic (congestive) heart failure (12/16/22) Pleural effusion, not elsewhere classified (12/16/22) Acute respiratory failure with hypoxia (12/16/22) Rash and other nonspecific skin eruption (12/16/22) Subjective Subjective Patient is a 72-year-old male admitted with progressive shortness of breath Objective Data Objective Data Vital Signs: Vital Signs Temp Pulse Resp BP Pulse Ox O2 Del Method O2 Flow Rate 98.8 F 82 18 141/59 H 95 Nasal Cannula 4 12/17/22 06:40 12/17/22 07:11 12/17/22 07:11 12/17/22 06:40 12/17/22 07:11 12/17/22 07:52 12/17/22 07:52 Oxygen Flow Rate (L/min) 4 Oxygen Delivery Method Nasal Cannula Weight: 147.6 kg Body Mass Index (BMI) 48.2 Intake & Output: Intake and Output for Last 24 Hours 12/15/22 12/16/22 12/17/22 23:59 23:59 23:59 Intake Total 250 / 250 Output Total 2200 / 2200 Balance -1950 / -1950 Lab / Micro Data 12/17/22 05:18 12/17/22 05:18 Labs: Laboratory Results - last 24 hr 12/16/22 18:43: WBC 9.2, RBC 3.59 L, Hgb 9.0 L, Hct 29.0 L, MCV 80.8, MCH 25.1 L, MCHC 31.0 L, RDW Std Deviation 58.4 H, RDW Coeff of Kavya 20.6 H, Plt Count 307, MPV 11.8, Immature Gran % (Auto) 2.700 H, Neut % (Auto) 89.3 H, Lymph % (Auto) 5.3 L, Mathews % (Auto) 1.9, Eos % (Auto) 0.5, Baso % (Auto) 0.3, Absolute Neuts (auto) 8.2 H, Absolute Lymphs (auto) 0.49 L, Nucleated RBC % 0, Differential Comment SEE COMMENT, Platelet Estimate ADEQUATE, RBC Morphology N CHROM, Hypochromasia 1+, Anisocytosis 1+, Microcytosis 1+, Sodium 128 L, Potassium 4.7, Chloride 93 L, Carbon Dioxide 27.0, Anion Gap 8, BUN 28 H, Creatinine 1.14, Estim Creat Clear Calc 62.26, Est GFR (MDRD) Af Amer 82, Est GFR (MDRD) Non-Af 67, BUN/Creatinine Ratio 24.6 H, Glucose 224 H, Lactic Acid 3.5 H*, Calcium 8.2 L, Troponin I High Sens 30, B-Natriuretic Peptide 373.4 H 12/17/22 00:05: Lactic Acid 2.2 H*, Troponin I High Sens 33, Procalcitonin 0.06 12/17/22 00:20: POC Glucose 248 H 12/17/22 02:05: Troponin I High Sens 35 12/17/22 05:18: WBC 9.5, RBC 3.37 L, Hgb 8.5 L, Hct 27.3 L, MCV 81.0, MCH 25.2 L, MCHC 31.1 L, RDW Std Deviation 59.6 H, RDW Coeff of Kavya 20.8 H, Plt Count 348, MPV 11.3, Immature Gran % (Auto) 2.200 H, Neut % (Auto) 88.1 H, Lymph % (Auto) 4.6 L, Mathews % (Auto) 4.8, Eos % (Auto) 0.1, Baso % (Auto) 0.2, Absolute Neuts (auto) 8.4 H, Absolute Lymphs (auto) 0.44 L, Nucleated RBC % 0, Differential Comment SCANNED, Plt Morphology Comment LARGE, Basophilic Stippling 1+, Anisocytosis 2+, Ovalocytes 1+, Sodium 132 L, Potassium 3.9, Chloride 94 L, Carbon Dioxide 28.0, Anion Gap 10, BUN 26 H, Creatinine 1.16, Estim Creat Clear Calc 59.26, Est GFR (MDRD) Af Amer 80, Est GFR (MDRD) Non-Af 66, BUN/Creatinine Ratio 22.4 H, Glucose 209 H, Calcium 7.8 L, Phosphorus 3.1, Magnesium 2.0, Iron 53 L, TIBC 322, Iron Saturation 16.5, Ferritin 183, Total Bilirubin 0.60, AST 10 L, ALT 44, Alkaline Phosphatase 102, Troponin I High Sens 44, Total Protein 6.5, Albumin 2.6 L, Globulin 3.9, Albumin/Globulin Ratio 0.7 L, TSH 0.34 L, Free T4 1.46 12/17/22 08:03: POC Glucose 273 H Micro: Microbiology 12/16/22 22:38 Mucosa - Nose Respiratory Panel (PCR) - Final 12/16/22 22:36 Urine, Clean Catch Legionella Antigen - Final 12/16/22 22:36 Urine, Clean Catch Streptococcus pneumoniae Antigen (M - Final Radiography Diagnostic Testing: Radiology Impression Chest CTA 12/16/22 20:00 IMPRESSION: No major central embolism but smaller peripheral emboli cannot be excluded due to bolus timing. Coronary artery disease and aortic valve disease. New moderate bilateral pleural effusions and bibasilar airspace disease. Electronically Signed: Aleks Vitale MD at 20:47 EDT Reading Location ID and State: [facility] / [place] Tel , Service support , Physical Exam Narrative GENERAL: cooperative HEENT: Atraumatic; normocephalic EYES; Anicteric, Normal Conjunctiva NECK; supple, normal thyroid, RESPIRATORY: Diminished to auscultation CARDIOVASCULAR: Regular S1 S2, GI: soft, normoactive bowel sounds, : No Renal angle tenderness; EXTREMITIES: edema, no clubbing, MUSCULOSKELETAL: no muscle wasting NEURO: Awake; no lateralizing signs. SKIN: No Rash PSYCH; Flat affect Assessment & Plan Assessment/Plan (1) Acute on chronic heart failure with preserved ejection fraction: PLAN: Plan Patient is a 72-year-old male admitted with progressive shortness of breath 1. Acute hypoxia ? Secondary to acute on chronic congestive heart failure with preserved ejection fraction, pulmonary hypertension, COPD as well as obstructive sleep apnea admitted to the regular nursing floor with treatment of underlying clinical condition with supplemental oxygen titrated to keep saturation greater than 90 2. Acute on chronic congestive heart failure with preserved ejection fraction ? Patient admitted to a monitored bed started on Lasix drip placed on fluid restriction, low-sodium diet, daily weights. Patient progressed being monitored with daily basic metabolic panel 3. Bilateral pleural effusion ? Secondary to above do expect improvement with diuresis 4. Lactic acidosis ? Secondary to increased work of breathing no evidence of infection or sepsis at this point 5. Hyponatremia ? Secondary to fluid overload status as well as patient being on HCTZ. Do expect improvement with diuresis 6. Class III obesity with BMI of 48.1 ? Complicating care weight loss advised 7. Anemia - Secondary to chronic disorder monitoring H&H and transfuse if patient becomes symptomatic or hemoglobin falls below 7 8. Dyslipidemia -Patient is on statin therapy, continued at home dose 9. Diabetes mellitus type 2 ? Patient is on long-acting insulin did continue home doses in addition to Accu-Cheks before meals and at bedtime with sliding scale coverage 10. Multiple myeloma ? Patient is on lenalidomide; outpatient follow-up with Dr. Booker 11. Obstructive sleep apnea ? Consistent use of CPAP encouraged 12. GERD ? On PPI 13. Vitamin B-12 deficiency ? Patient is on home supplement did continue 14. COPD ? Aerosol treatments as needed 15. DVT prophylaxis ? Lovenox 40 mg SC every 12 Time spent in the patient's overall evaluation,decision-making process, review of diagnostic data, adjustment of management, discussion with other providers, nursing nursing and ancillary staff involved in patient's care documentation, 50 Minutes Charges/Coding Visit Charges Inpatient E&M: 87839 Subs Hosp L3
[2022-12-17 10:09] LABS: Bedside Glucose 282 mg/dL (74-106)
[2022-12-17] MEDS: Acyclovir 200 MG Capsule 400 MG PO ×2 (10:26→20:15)
[2022-12-17] MEDS: Magnesium Chloride 64 MG Delay Rel.Tablet PO (10:26)
[2022-12-17] MEDS: Calcium Carb/Vitamin D 1 TABLET Tablet PO (10:26)
[2022-12-17] MEDS: dilTIAZem CD 180 MG Capsule PO (10:26)
[2022-12-17] MEDS: Cholecalciferol (VIT D3) 25 MCG TABLET (1,000 UNITS) 50 MCG PO (10:27)
[2022-12-17] MEDS: Aspirin E.C. 81 MG Tablet PO (10:27)
--- NOTE | 2022-12-17 11:38 | NURSING ---
Pt reports his blood sugar as 337 per pt's home shirin equipment.
--- NOTE | 2022-12-17 11:40 | CASEMGMT ---
RN SHEKHAR Face to Face with patient for initial transition planning/care coordination assessment. RN CM introduced self and role at [facility]. Patient sitting in chair, alert and oriented, at bedside. Patient willing to participate in assessment and is able to answer all questions appropriately. Care providers, pharmacy, and demographics verified. Patient wishes to discharge home, denies need for home health at this time. Patient states he has no further needs or concerns at this time. CM to follow for discharge planning needs that may arise. PCP: Domingo Specialists: Jhony, oncologist; Jahaira Lane, vp corporate development; Silvia, endocringologist; Jose, machine tender Preferred Pharmacy: [facility] Insurance: [facility], MMO Prescription Benefit: yes Living Will/HPOA: yes, Sheila James LNOK: Living Arrangements: Patient lives with in a 2 story home with bed and bath on first floor. Patient states he is independent at home. Transportation: DME/HHC: Patient has shower chair, raised toilet, grab bars, walker, cpap, pulse ox, glucometer, cpap, and home oxygen with portability through [facility] at 2lpm with exertion. Disposition Plan: Patient to discharge home with family support and follow-up plans in place. Eva DOZIER, RN, CM
[2022-12-17] MEDS: Insulin Lispro 100 UNIT/ML INSULN.PEN 54 UNIT SC (11:42)
[2022-12-17] MEDS: Atorvastatin Calcium 20 MG Tablet PO (20:14)
[2022-12-17] MEDS: Potassium Chloride Oral Tablet 20 MEQ 40 MEQ PO (20:44)
--- NOTE | 2022-12-17 22:14 | PCM.HOSP.N ---
Hospitalist Note Patient with hemoglobin drop overnight per previous note. We did obtain iron studies and his TIBC was normal at 322, iron saturation was 16.5, ferritin was 183. We did get a guaiac which was resulted positive this evening. We will discontinue subcu enoxaparin. Hold aspirin. Start Protonix IV twice daily and consult gastroenterology.--> Dr. Cid notified
[2022-12-18] VITALS (11 sets, daily range): BP systolic 119–156; BP diastolic 44–66; PULSE 66–86; RESP 16–20; TEMP 35.9–37.1; O2SAT 93–96; BMI 47.5
[2022-12-18] MEDS: Budesonide Respules 0.5 MG/2 ML AMPUL.NEB. INHALATION ×2 (07:31→19:57)
[2022-12-18] MEDS: Albuterol 2.5 MG/3 ML VIAL.NEB. INHALATION ×3 (07:31→19:57)
--- NOTE | 2022-12-18 08:03 | EX.PCM.CON.G ---
HPI Consult Data Date of Consult: 12/18/22 HPI Narrative Reason for Consultation: Anemia HPI Narrative: CYN MARTINEZ, is a 72 M who presented to [facility] with shortness of breath. The patient has had progressive dyspnea and lower extremity edema that has progressively gotten worse over the last 2 weeks. He has oxygen to utilize as needed at home , but typically does not require oxygen. He does wear CPAP at night and states that this helps his breathing. He also reports that he has had increased lower extremity edema that is worsening. Currently he has pitting edema up to his knees. He is being treated for myeloma at baseline and follows with Dr. Booker. Vital signs on presentation showed a temperature of 98, blood pressure 167/49, respiratory rate was 22 and oxygen saturation was 92% on 5 L nasal cannula. Pulse ox on room air was not obtained however as noted above he does not typically wear oxygen. His CBC shows a acute on chronic anemia with a drop in his hemoglobin from 11.2-9.0 but normal white count and normal platelet count. He does have a bit of a left shift. His sodium is low at 128. BUN is 28 and serum creatinine is 1.14. His serum creatinine is very slightly above his baseline of 0.7-1.0. His glucose was 224. Initial troponin was 30. His BNP was markedly elevated at 373.7. Procalcitonin was low at 0.06. With his history of myeloma a CTA of his chest was performed and showed no central PE however contrast bolus was not great and peripheral emboli cannot be excluded. He also had new moderate bilateral effusions and bilateral compressive atelectasis. I was consulted due to his decrease in hemoglobin along with his elevated BUN to creatinine ratio ,possibly indicating upper GI bleed. [facility] Medical History Abnormal electrocardiogram Atherosclerotic heart disease of [place] coronary artery without angina pectoris Chest pain Chicken pox COPD (chronic obstructive pulmonary disease) MESA (dyspnea on exertion) Erectile dysfunction Essential hypertension History of left heart catheterization (LHC) (~01/27/11) Measles Mixed hyperlipidemia Multiple myeloma Murmur Obesity CONCHA (obstructive sleep apnea) Palpitations Smoldering multiple myeloma SOB (shortness of breath) Type 2 diabetes mellitus Home Medications aspirin 81 mg tablet,delayed release (Adult Aspirin Regimen) 81 mg PO QDAY 08/19/17 [History Last Taken 06/17/20 10:00] atorvastatin 20 mg tablet (Lipitor) 20 mg PO QDAY 08/19/17 [History Last Taken 06/17/20 10:00] calcium carbonate 600 mg-vitamin D3 5 mcg (200 unit) tablet (Calcium 600 with Vitamin D3) 1 tab PO QDAY 08/19/17 [History Last Taken 06/17/20 10:00] magnesium 250 mg tablet 250 mg PO QDAY 08/19/17 [History Last Taken 06/17/20 10:00] metformin 1,000 mg tablet (Glucophage) 1,000 mg PO BID 08/19/17 [History Last Taken 06/17/20] omega-3 fatty acids 1,000 mg capsule 1,000 mg PO QDAY 08/19/17 [History Last Taken 06/17/20 10:00] levomefolate Ca 3 mg-B6 35 mg-meB12 2 mg-algal oil 90.314 mg capsule (Metanx (algal oil)) 1 cap PO DAILY 12/16/17 [History Last Taken 06/17/20] cholecalciferol (vitamin D3) 50 mcg (2,000 unit) tablet 50 mcg PO DAILY 05/14/22 [History Last Taken Unknown] diltiazem HCl 180 mg capsule,extended release 24 hr 180 mg PO DAILY 05/14/22 [History Last Taken Unknown] hydrochlorothiazide 25 mg tablet 25 mg PO DAILY 05/14/22 [History Last Taken Unknown] dexamethasone 4 mg tablet 40 mg PO .weekly 10/12/22 [History Last Taken Unknown] acyclovir 400 mg tablet 400 mg PO BID 10/14/22 [History Last Taken Unknown] insulin aspart U-100 100 unit/mL (3 mL) subcutaneous pen (Novolog FlexPen U-100 Insulin aspart) 45 unit subcut QACDINNER 10/14/22 [History Last Taken Unknown] insulin aspart U-100 100 unit/mL (3 mL) subcutaneous pen (Novolog FlexPen U-100 Insulin aspart) 54 unit subcut QACLUNCH 10/14/22 [History Last Taken Unknown] insulin aspart U-100 [Novolog FlexPen U-100 Insulin] 34 unit subcut QACBREAK 10/14/22 [History Last Taken Unknown] insulin detemir U-100 [Levemir FlexTouch U100 Insulin] 78 unit subcut TIDWMEAL 10/14/22 [History Last Taken Unknown] irbesartan 300 mg-hydrochlorothiazide 12.5 mg tablet 1 tab PO DAILY 10/14/22 [History Last Taken Unknown] lenalidomide 25 mg capsule 25 mg PO .COMPLEX 10/14/22 [History Last Taken Unknown] omeprazole 40 mg capsule,delayed release 40 mg PO DAILY PRN nause 10/14/22 [History Last Taken Unknown] ondansetron 8 mg disintegrating tablet 8 mg PO Q8H PRN nausea and vomiting 10/14/22 [History Last Taken Unknown] albuterol sulfate 90 mcg/actuation aerosol inhaler (Ventolin HFA) 2 puff inhalation Q4H #18 grams 12/07/22 [Rx Last Taken Unknown] umeclidinium 62.5 mcg-vilanterol 25 mcg/actuation powdr for inhalation (Anoro Ellipta) 1 inh inhalation QDAY #60 ea 12/09/22 [Rx Last Taken Unknown] ferrous sulfate 550 mg PO .every other day hgb 12/17/22 [History Last Taken Unknown] insulin aspart U-100 100 unit/mL subcutaneous solution (Novolog U-100 Insulin aspart) 45 unit subcut QHS diabetes 12/17/22 [History Last Taken Unknown] Allergy/AdvReac Type Severity Reaction Status Date / Time Penicillins Allergy Mild Rash Verified 12/16/22 18:21 Family History Father Myocardial infarction Mother Breast cancer Surgical History Bone spur removal History of cataract extraction Social History Smoking Status: Former smoker quit date: 04/25/02 pack-years: 31 alcohol intake: current alcohol intake frequency: holidays/special occasions only substance use type: does not use caffeine: Yes Type: coffee Number of servings: 5 ROS Constitutional Constitutional: Denies anorexia, change in weight, chills, fatigue, fever(s), malaise, night sweats, weakness or other Eyes Eyes: Denies blurry vision, change in eye color, change in vision, discharge from eye(s), double vision, erythema, eye pain, loss of vision or other ENT HEENT: Denies abnormal hearing, dysphagia, ear pain, epistaxis, headache(s), hearing loss, nasal congestion, nasal discharge, post nasal drip, sinus pressure, sore throat or other Cardiovascular Cardiovascular: Reports dyspnea on exertion and edema; Denies chest pain, claudication, lightheadedness, orthopnea, palpitations, paroxysmal nocturnal dyspnea, rapid heart rate, syncope or other Respiratory/Chest Respiratory/Chest: Reports dyspnea, shortness of breath at rest and shortness of breath with exertion; Denies cough, excessive phlegm production, hemoptysis, productive cough, wheezing or other Gastrointestinal Gastrointestinal: Denies abdominal pain, coffee ground emesis, constipation, diarrhea, dyspepsia, hematemesis, hematochezia, loose stools, melena, nausea, vomiting or other Genitourinary Genitourinary: Denies burning urination, difficulty urinating, dysuria, hematuria, nocturia, urinary frequency, urinary hesitancy, urinary incontinence, urinary urgency or other Musculoskeletal Musculoskeletal: Denies arthralgias, back pain, joint pain, joint stiffness, joint swelling, myalgias, neck pain or other Neurologic Neurologic: Denies abnormal gait, abnormal speech, confusion, disequilibrium, dizziness, focal weakness, headache(s), numbness, paresthesias, seizure-like activity, seizures, syncope, tingling, tremor(s) or other Psychiatric Psychiatric: Denies anxiety, depression, homicidal ideation, suicidal ideation or other Endocrine Endocrinology: Denies change in body appearance, cold intolerance, excessive sweating, heat intolerance, polydipsia, polyuria or other Hematologic/Lymphatic Hematologic/Lymphatic: Denies anemia, easy bleeding, easy bruising, lymphadenopathy or other Allergic/Immunologic Allergic/Immunologic: Denies rhinitis, hives, eczemia, asthma or other Physical Exam Narrative GENERAL: cooperative HEENT: Atraumatic; normocephalic EYES; Anicteric, Normal Conjunctiva NECK; supple, normal thyroid, RESPIRATORY: Diminished to auscultation CARDIOVASCULAR: Regular S1 S2, GI: soft, normoactive bowel sounds, : No Renal angle tenderness; EXTREMITIES: edema, no clubbing, MUSCULOSKELETAL: no muscle wasting NEURO: Awake; no lateralizing signs. SKIN: No Rash PSYCH; Flat affect Lab / Micro Data 12/18/22 07:30 12/18/22 07:30 Labs: Laboratory Results - last 24 hr 12/18/22 07:30: WBC 11.2 H, RBC 3.45 L, Hgb 8.6 L, Hct 27.7 L, MCV 80.3, MCH 24.9 L, MCHC 31.0 L, RDW Std Deviation 59.6 H, RDW Coeff of Kavya 21.0 H, Plt Count 410, MPV 11.4, Immature Gran % (Auto) 1.000 H, Neut % (Auto) 77.1 H, Lymph % (Auto) 5.7 L, [place] % (Auto) 15.6 H, Eos % (Auto) 0.4, Baso % (Auto) 0.2, Absolute Neuts (auto) 8.6 H, Absolute Lymphs (auto) 0.64 L, Nucleated RBC % 0, Differential Comment SCANNED, Diff Path Review May foll, Hypochromasia 1+, Poikilocytosis 1+, Anisocytosis 2+, Microcytosis 1+, Macrocytosis 1+, Ovalocytes 1+, Sodium 136, Potassium 3.2 L, Chloride 94 L, Carbon Dioxide 32.0, Anion Gap 10, BUN 32 H, Creatinine 1.04, Estim Creat Clear Calc 66.09, Est GFR (MDRD) Af Amer 91, Est GFR (MDRD) Non-Af 75, BUN/Creatinine Ratio 30.8 H, Glucose 43 L*, Calcium 7.5 L, Phosphorus 5.2 H, Magnesium 1.9 Assessment & Plan Assessment/Plan (1) Acute on chronic anemia: PLAN: Differential diagnosis was acute on chronic anemia could be worsening of his multiple myeloma, acute GI bleed, chronic GI, bone marrow suppression. He does have imaging possibly suggesting nonalcoholic steatohepatitis which could result in angiodysplasia, angiectasia and gastric antral vascular ectasia. He would benefit from an upper endoscopy now to be stable from a respiratory standpoint currently not requiring any supplemental oxygen. He was explained alternatives, risk, benefits include not withstanding bleeding, infection, sepsis, perforation, need for emergent surgery . He will have an ASA of 3. Charges/Coding Visit Charges Inpatient E&M: 94865 Init Hosp L3
[2022-12-18 08:17] LABS: Absolute Lymphocyte Count 0.64 X10^3/uL (0.83-4.51); Absolute Neutrophil Count 8.6 X10^3/uL (2.0-7.7); Basophil# 0.02 X10^3/uL; Basophil% 0.2 % (0-1); Eosinophil# 0.05 X10^3/uL; Eosinophils% 0.4 % (0-5); Hematocrit 27.7 % (40-54); Hemoglobin 8.6 g/dL (13.0-16.5); Lymphocyte # 0.64 X10^3/ul (0.83-4.51); Lymphocyte % 5.7 % (19-41); Mean Corpuscular Hgb 24.9 pg (27.0-32.0); Mean Corpuscular Volume 80.3 fL (80-94); Mean Platelet Vol. 11.4 fl (6.2-12.0); Monocyte# 1.74 X10^3/uL; Monocyte% 15.6 % (0-10); NRBC Flagged by Analyzer 0 % (0-5); Neutrophil # 8.59 X10^3/uL (2.7-7.7); Neutrophil % 77.1 % (47-70); POSITIVE DIFFERENTIAL YES; POSITIVE MORPHOLOGY YES; Platelet Count 410 K/mm3 (150-450); RBC Distribution Width SD 59.6 fl (35.1-43.9); Red Blood Count 3.45 M/mm3 (4.6-6.2); White Blood Count 11.2 K/mm3 (4.4-11.0)
[2022-12-18 08:23] LABS: Differential Indicated SCAN CRITERIA MET
--- NOTE | 2022-12-18 08:29 | PN.HOSP_ITS ---
Reason for Visit Reason for Visit: Diagnoses Hypo-osmolality and hyponatremia (12/16/22) Acidosis, unspecified (12/16/22) Acute on chronic diastolic (congestive) heart failure (12/16/22) Pleural effusion, not elsewhere classified (12/16/22) Acute respiratory failure with hypoxia (12/16/22) Rash and other nonspecific skin eruption (12/16/22) Subjective Subjective The echo demonstrated EF of 70%. Patient had a slight drop in hemoglobin level. Was apparently guaiac positive. Potassium down to 3.2. Patient had an episode of hypoglycemia this a.m. after he was kept n.p.o. Objective Data Objective Data Vital Signs: Vital Signs Temp Pulse Resp BP Pulse Ox O2 Del Method O2 Flow Rate 97.6 F L 80 18 156/66 H 94 Nasal Cannula 4 12/18/22 03:00 12/18/22 07:32 12/18/22 07:32 12/18/22 03:00 12/18/22 07:32 12/18/22 07:32 12/18/22 07:32 Oxygen Flow Rate (L/min) 4 Oxygen Delivery Method Nasal Cannula Weight: 146.1 kg Body Mass Index (BMI) 47.5 Intake & Output: Intake and Output for Last 24 Hours 12/16/22 12/17/22 12/18/22 23:59 23:59 23:59 Intake Total 1690 / 1690 0 / 0 Output Total 6075 / 6875 800 / 800 Balance -4385 / -5185 -800 / -800 Lab / Micro Data 12/18/22 07:30 12/18/22 07:30 Labs: Laboratory Results - last 24 hr 12/17/22 01:54: POC Glucose 282 H 12/17/22 08:03: POC Glucose 273 H 12/18/22 07:30: WBC 11.2 H, RBC 3.45 L, Hgb 8.6 L, Hct 27.7 L, MCV 80.3, MCH 24.9 L, MCHC 31.0 L, RDW Std Deviation 59.6 H, RDW Coeff of Kavya 21.0 H, Plt Count 410, MPV 11.4, Immature Gran % (Auto) 1.000 H, Neut % (Auto) 77.1 H, Lymph % (Auto) 5.7 L, [place] % (Auto) 15.6 H, Eos % (Auto) 0.4, Baso % (Auto) 0.2, Absolute Neuts (auto) 8.6 H, Absolute Lymphs (auto) 0.64 L, Nucleated RBC % 0 Micro: Microbiology 12/17/22 Unknown Stool Stool Occult Blood (NANCY) - Final Occult Blood Positive 12/16/22 22:38 Mucosa - Nose Respiratory Panel (PCR) - Final 12/16/22 22:36 Urine, Clean Catch Legionella Antigen - Final 12/16/22 22:36 Urine, Clean Catch Streptococcus pneumoniae Antigen (M - Final Radiography Diagnostic Testing: Radiology Impression Echocardiogram 12/16/22 23:27 Interpretation Summary The left ventricular ejection fraction is 70 %. Diastolic function is indeterminate. The left atrium is severely enlarged. Mild-Moderate (1-2+) mitral valve insufficiency. Right ventricular systolic pressure estimated to be 53 mmHg. Mild aortic stenosis. The study was technically difficult. Ordering Physician: Fernanda Staples Performed By: Reinier Rey RCS Physical Exam Narrative GENERAL: cooperative HEENT: Atraumatic; normocephalic EYES; Anicteric, Normal Conjunctiva NECK; supple, normal thyroid, RESPIRATORY: Diminished to auscultation CARDIOVASCULAR: Regular S1 S2, GI: soft, normoactive bowel sounds, : No Renal angle tenderness; EXTREMITIES: edema, no clubbing, MUSCULOSKELETAL: no muscle wasting NEURO: Awake; no lateralizing signs. SKIN: No Rash PSYCH; Flat affect Const alert, oriented x3 and no apparent distress Constitutional Narrative: Morbidly obese, pleasant, white male, sitting up in bed in the emergency department, at bedside, appears nontoxic, somewhat tachypneic with conversation however no signs of respiratory extremis General Appearance: cooperative HEENT normocephalic, head/scalp atraumatic, hearing grossly normal bilaterally and moist oral mucous membranes Eyes PERRL, EOMs intact bilaterally and conjunctivae normal Eyes Narrative: No scleral icterus Neck supple Neck Narrative: Neck is short and thick, JVD present, trachea midline Resp no retractions, no use of accessory muscles and No clear to auscultation bilaterally Resp Narrative: Diffusely diminished with few scattered end expiratory crackles at bilateral bases, mild tachypnea, exam is somewhat limited by body habitus Auscultation: crackles; Negative for rhonchi or wheezes Cardio regular rate, regular rhythm, S1 normal heart sound, S2 normal heart sound, no murmurs, no rub, no gallops and no clicks Cardio Narrative: Distant due to body habitus GI normal to inspection, nondistended, normoactive bowel sounds, soft to palpation and non-tender GI Narrative: Edema noted at distal abdomen with some pitting Extremity Extremity Narrative: 2+ bilateral lower extremity pitting edema that extends up to just below his knee joint, no clubbing or cyanosis Skin No no rashes or lesions noted, no wounds, skin turgor normal, no jaundice, no petechiae and no mottling Skin Narrative: Reticular rash noted on lower abdomen and back, upper bilateral arms Neuro oriented x3, CN's II-XII intact bilaterally, moves all extremities and no focal motor deficits Speech: speech normal Psych affect normal Psych Narrative: Extremely pleasant Assessment & Plan Assessment/Plan (1) Acute on chronic heart failure with preserved ejection fraction: PLAN: Plan Patient is a 72-year-old male admitted with progressive shortness of breath 1. Acute hypoxia ? Secondary to acute on chronic congestive heart failure with preserved ejection fraction, pulmonary hypertension, COPD as well as obstructive sleep apnea admitted to the regular nursing floor with treatment of underlying clinical condition with supplemental oxygen titrated to keep saturation greater than 90 2. Acute on chronic congestive heart failure with preserved ejection fraction ? Patient admitted to a monitored bed started on Lasix drip placed on fluid restriction, low-sodium diet, daily weights. Patient progressed being monitored with daily basic metabolic panel ? 12/18/2022; 2D echo demonstrated EF of 70%. 2019 negative fluid balance of 3.2 L. 3. Bilateral pleural effusion ? Secondary to above do expect improvement with diuresis 4. Lactic acidosis ? Secondary to increased work of breathing no evidence of infection or sepsis at this point 5. Hyponatremia ? Secondary to fluid overload status as well as patient being on HCTZ. Do expect improvement with diuresis ? 12/18/2022 sodium levels up to 136 6. Class III obesity with BMI of 48.1 ? Complicating care weight loss advised 7. Anemia - Secondary to chronic disorder monitoring H&H and transfuse if patient becomes symptomatic or hemoglobin falls below 7 ? Slight drop in hemoglobin level to 8.6. Patient was noted to be guaiac positive. Consult placed to GI 8. Dyslipidemia -Patient is on statin therapy, continued at home dose 9. Diabetes mellitus type 2 ? Patient is on long-acting insulin did continue home doses in addition to Accu- Cheks before meals and at bedtime with sliding scale coverage ? 12/18/2022. Patient did develop hypoglycemia after he was kept NPO. Subsequent adjustment made to his insulin regimen both long and short acting 10. Multiple myeloma ? Patient is on lenalidomide; outpatient follow-up with Dr. Booker 11. Obstructive sleep apnea ? Consistent use of CPAP encouraged 12. GERD ? On PPI 13. Vitamin B-12 deficiency ? Patient is on home supplement did continue 14. COPD ? Aerosol treatments as needed 15. DVT prophylaxis ? Lovenox 40 mg SC every 12 16. Hypokalemia -Corrected per protocol Time spent in the patient's overall evaluation,decision-making process, review of diagnostic data, adjustment of management, discussion with other providers, nursing nursing and ancillary staff involved in patient's care documentation, 50 Minutes Charges/Coding Visit Charges Inpatient E&M: 35884 Subs Hosp L3
--- NOTE | 2022-12-18 08:30 | NURSING ---
Patient glucose, per patients Brett, was 57 and symptomatic at 0830. Patient admits to feeling shaky. Dr. Carson notified, 1 amp D50 given. Repeat glucose 141 at 0910.
[2022-12-18 08:35] LABS: Anion Gap 10 (5-15); BUN 32 mg/dL (7-18); BUN/Creat Ratio 30.8 RATIO (10-20); Calcium,Total 7.5 mg/dL (8.5-10.1); Chloride 94 mmol/L (98-107); Creatinine, Serum 1.04 mg/dL (0.70-1.30); EST Glomerular Filtration Rate 75 mL/min (>60); Est Glom Filt Rate - Afr Amer 91 mL/min (>60); Estimated Creatinine Clearance 66.09 ml/min; Glucose 43 mg/dL (74-106); Magnesium 1.9 mg/dL (1.6-2.6); Phosphorus 5.2 mg/dL (2.5-4.9); Potassium 3.2 mmol/L (3.5-5.1); Sodium Level 136 mmol/L (136-145)
[2022-12-18] MEDS: Dextrose 50%-Water 25 GM/50 ML DISP.SYRIN IV (08:45)
[2022-12-18] MEDS: Furosemide 500 MG in Empty Viaflex 50 mL 1 EACH CONT INF (09:00)
[2022-12-18 11:08] LABS: Anisocytosis 2+; Differential Comment SCANNED; Hypochromasia 1+; Macrocytosis 1+; Microcytosis 1+; Ovalocyte 1+; Poikilocytosis 1+
[2022-12-18] MEDS: dilTIAZem CD 180 MG Capsule PO (12:56)
[2022-12-18] MEDS: Ferrous Sulfate 325 MG Tablet PO (12:56)
[2022-12-18] MEDS: Potassium Chloride Oral Tablet 20 MEQ PO ×2 (12:57→17:28)
--- NOTE | 2022-12-18 13:00 | NURSING ---
Blood glucose 75- per patients Brett glucose monitor
[2022-12-18] MEDS: Glucerna Shake 120 ML LIQUID PO ×2 (13:04→17:33)
--- NOTE | 2022-12-18 13:30 | NURSING ---
Patient blood sugar 78 after eating lunch, lispro [address] Carson notified.
--- NOTE | 2022-12-18 17:00 | NURSING ---
Per patients Brett, glucose 221 before dinner. Insulin given as ordered.
[2022-12-18] MEDS: Insulin Lispro 100 UNIT/ML INSULN.PEN SC (17:21)
[2022-12-18] MEDS: Insulin Lispro 100 UNIT/ML INSULN.PEN 20 UNIT SC (17:21)
[2022-12-18] MEDS: Insulin Glargine-YFGN 100 UNIT/ML Pen 50 UNIT SC (17:24)
[2022-12-18] MEDS: Acyclovir 200 MG Capsule 400 MG PO (21:40)
[2022-12-18] MEDS: Atorvastatin Calcium 20 MG Tablet PO (21:40)
[2022-12-19] VITALS (15 sets, daily range): BP systolic 116–148; BP diastolic 49–70; PULSE 67–92; RESP 16–18; TEMP 36.3–36.9; O2SAT 93–98
--- NOTE | 2022-12-19 06:10 | IMM_PTH ---
PATIENT: CYN MARTINEZ Jr. LOC: [facility] U#:[id number] AGE/SX: 72/M ROOM: [facility] RE12/16/[address]: Dr. Jackie Rose MD : 1950 BED: 1 DIS: 12/20/2022 SPEC #: [id number] RECD: 12/20/22 14:31 STATUS: KRISTI REQ #: [id number] LISBET: 12/19/22 06:[address]: Dudley Cid DEPT: IMMUNOHISTOCHEMISTRY RECD BY: Ioana Sinclair ENTERED: 12/20/22 14:32 SP TYPE: IMMUNO OTHR DR: DO Dr. Raj Garcia MD Dr. Kathryn Lee, DO Dr. Jackie Rose MD Tissues: A - Stomach, NOS Procedures: H Pylori (initial) PHYSICIAN & INSTITUTION [place] [id number] SPECIMEN INFORMATION: Tissue Source: A - Gastric body Clinical Info: GI bleed Specimen Number: [id number] CPT code: 88693 METHODOLOGY: Deparaffinized sections of prefer/formalin-fixed tissue or PAP/DQ stained slides are incubated with monoclonal/polyclonal antibodies/oligonucleotide probes. Localization is made via biotin free immunoperoxidase method. Appropriate controls are performed and reacted as expected. Results on target cell population are indicated in the following table: RESULTS: ANTIBODY / CLONE RESULT Block A H Pylori (polyclonal) negative These tests were developed and their performance characteristics determined by [facility]. They may not have been cleared or approved by the U.S. Food and Drug Administration. The FDA has determined that such clearance or approval is not necessary. The above immunohistochemical/dualISH markers are ordered and reviewed by the Pathologist. INTERPRETATION: A. Gastric body, biopsy: Negative for Helicobacter pylori organisms. SJ:osbaldo 12/21/2022
--- NOTE | 2022-12-19 06:10 | EGD_PTH ---
PATIENT: CYN MARTINEZ Jr. LOC: [facility] U#:[id number] AGE/SX: 72/M ROOM: [facility] RE12/16/[address]: Dr. Jackie Rose MD : 1950 BED: 1 DIS: 12/20/2022 SPEC #: [id number] RECD: 12/20/22 08:13 STATUS: KRISTI REAurelio #: [id number] LISBET: 12/19/22 06:[address]: Dudley Cid DEPT: SURGICAL PATHOLOGY RECD BY: Tracee Aguilar ENTERED: 12/20/22 11:12 SP TYPE: EGD BIOPSY OTHR DR: Dr. Krishna Lane, MD Dr. Fernanda Salinas Dr., DO Dr. Jackie Rose MD Tissues: A - Gastric mucous membrane B - Duodenum, NOS Procedures: Surgery Specimen Level IV Comments: @ Ordering doctor for SUIV edited from to @ by DIXONOD at 12/21/22 08 @ Submitting doctor edited from to @ by RGOOD at 12/21/22 08 HEADER OPERATION: EGD with biopsies PRE-OP DIAGNOSIS: GI bleed TISSUE SUBMITTED: A - Gastric body biopsy, B - Duodenum biopsy MICROSCOPIC DIAGNOSIS A. Gastric body, biopsy: Mild gastritis. See microscopic description and comment. B. Duodenum, biopsy: Fragments of duodenal mucosa, no pathologic diagnosis. SJ:osbaldo 12/21/2022 COMMENT A. The results of immunohistochemistry for Helicobacter pylori will be reported separately ([id number]). MICROSCOPIC DESCRIPTION Slides are reviewed. A. The specimen shows fragments of gastric mucosa with chronic inflammatory cell infiltrates in the lamina propria consisting of lymphocytes and plasma cells, consistent with mild chronic gastritis. GROSS DESCRIPTION A - Received in fixative is one container labeled with the patient's name and designated gastric body biopsy. The specimen consists of two irregular fragments of light vaughn soft tissue that in aggregate measure 0.6 x 0.4 x 0.1 cm. The specimen is totally submitted in one cassette. B - Received in fixative is one container labeled with the patient's name and designated duodenum biopsy. The specimen consists of multiple irregular fragments of light vaughn soft tissue that in aggregate measure 0.6 x 0.5 x 0.1 cm. The specimen is totally submitted in one cassette. / SJ:rg 12/20/2022 TC:3 CPT: 91237 x2
[2022-12-19] MEDS: Budesonide Respules 0.5 MG/2 ML AMPUL.NEB. INHALATION ×2 (07:19→21:32)
[2022-12-19] MEDS: Albuterol 2.5 MG/3 ML VIAL.NEB. INHALATION ×3 (07:19→21:32)
[2022-12-19] MEDS: Dextrose 50%-Water 25 GM/50 ML DISP.SYRIN IV (07:44)
[2022-12-19] MEDS: 0.9% Saline Lock 10 ML Syringe IV ×3 (07:45→21:48)
--- NOTE | 2022-12-19 07:47 | PCM.PN.HOSP ---
Reason for Visit Reason for Visit: Diagnoses Hypo-osmolality and hyponatremia (12/16/22) Acidosis, unspecified (12/16/22) Acute on chronic diastolic (congestive) heart failure (12/16/22) Pleural effusion, not elsewhere classified (12/16/22) Acute respiratory failure with hypoxia (12/16/22) Rash and other nonspecific skin eruption (12/16/22) Objective Data Objective Data Vital Signs: Vital Signs Temp Pulse Resp BP Pulse Ox O2 Del Method O2 Flow Rate 97.7 F L 67 18 148/51 H 97 Nasal Cannula 4 12/19/22 07:43 12/19/22 07:43 12/19/22 07:43 12/19/22 07:43 12/19/22 07:43 12/19/22 07:43 12/19/22 07:43 Oxygen Flow Rate (L/min) 4 Oxygen Delivery Method Nasal Cannula Weight: 146.1 kg Body Mass Index (BMI) 47.5 Intake & Output: Intake and Output for Last 24 Hours 12/17/22 12/18/22 12/19/22 23:59 23:59 23:59 Intake Total 1690 / 1690 452.5 / 452.5 220 / 220 Output Total 6075 / 6875 4800 / 4800 600 / 600 Balance -4385 / -5185 -4347.5 / -4347.5 -380 / -380 Lab / Micro Data 12/18/22 07:30 12/18/22 07:30 Labs: Laboratory Results - last 24 hr 12/18/22 07:30: WBC 11.2 H, RBC 3.45 L, Hgb 8.6 L, Hct 27.7 L, MCV 80.3, MCH 24.9 L, MCHC 31.0 L, RDW Std Deviation 59.6 H, RDW Coeff of Kavya 21.0 H, Plt Count 410, MPV 11.4, Immature Gran % (Auto) 1.000 H, Neut % (Auto) 77.1 H, Lymph % (Auto) 5.7 L, [place] % (Auto) 15.6 H, Eos % (Auto) 0.4, Baso % (Auto) 0.2, Absolute Neuts (auto) 8.6 H, Absolute Lymphs (auto) 0.64 L, Nucleated RBC % 0, Differential Comment SCANNED, Diff Path Review May foll, Hypochromasia 1+, Poikilocytosis 1+, Anisocytosis 2+, Microcytosis 1+, Macrocytosis 1+, Ovalocytes 1+, Sodium 136, Potassium 3.2 L, Chloride 94 L, Carbon Dioxide 32.0, Anion Gap 10, BUN 32 H, Creatinine 1.04, Estim Creat Clear Calc 66.09, Est GFR (MDRD) Af Amer 91, Est GFR (MDRD) Non-Af 75, BUN/Creatinine Ratio 30.8 H, Glucose 43 L*, Calcium 7.5 L, Phosphorus 5.2 H, Magnesium 1.9 Micro: Microbiology 12/17/22 Unknown Stool Stool Occult Blood (NANCY) - Final Occult Blood Positive 12/16/22 22:38 Mucosa - Nose Respiratory Panel (PCR) - Final 12/16/22 22:36 Urine, Clean Catch Legionella Antigen - Final 12/16/22 22:36 Urine, Clean Catch Streptococcus pneumoniae Antigen (M - Final Physical Exam Narrative GENERAL: cooperative HEENT: Atraumatic; normocephalic EYES; Anicteric, Normal Conjunctiva NECK; supple, normal thyroid, RESPIRATORY: Diminished to auscultation CARDIOVASCULAR: Regular S1 S2, GI: soft, normoactive bowel sounds, : No Renal angle tenderness; EXTREMITIES: edema, no clubbing, MUSCULOSKELETAL: no muscle wasting NEURO: Awake; no lateralizing signs. SKIN: No Rash PSYCH; Flat affect Assessment & Plan Assessment/Plan (1) Acute on chronic heart failure with preserved ejection fraction: PLAN: Plan Patient is a 72-year-old male admitted with progressive shortness of breath 1. Acute hypoxia ? Secondary to acute on chronic congestive heart failure with preserved ejection fraction, pulmonary hypertension, COPD as well as obstructive sleep apnea admitted to the regular nursing floor with treatment of underlying clinical condition with supplemental oxygen titrated to keep saturation greater than 90 2. Acute on chronic congestive heart failure with preserved ejection fraction ? Patient admitted to a monitored bed started on Lasix drip placed on fluid restriction, low-sodium diet, daily weights. Patient progressed being monitored with daily basic metabolic panel ? 12/18/2022; 2D echo demonstrated EF of 70%. Patient in negative fluid balance of 3.2 L. ? 12/20/2019; patient Lasix drip discontinued. 3. Bilateral pleural effusion ? Secondary to above do expect improvement with diuresis 4. Lactic acidosis ? Secondary to increased work of breathing no evidence of infection or sepsis at this point 5. Hyponatremia ? Secondary to fluid overload status as well as patient being on HCTZ. Do expect improvement with diuresis ? 12/18/2022 sodium levels up to 136 6. Class III obesity with BMI of 48.1 ? Complicating care weight loss advised 7. Anemia - Secondary to chronic disorder monitoring H&H and transfuse if patient becomes symptomatic or hemoglobin falls below 7 ? Slight drop in hemoglobin level to 8.6. Patient was noted to be guaiac positive. Consult placed to GI ?12/19/2022; patient underwent EGD by Dr. Cid recommendations and Findings as below -Impression: - Normal esophagus. - Erythematous mucosa in the gastric body. Biopsied. - Two bleeding angiodysplastic lesions in the stomach. Treated with a heater probe. - Duodenitis. Biopsied. Recommendation: - [facility]. - Resume regular diet. - Use Protonix (pantoprazole) 40 mg PO BID. - Check celiac disease labs - Continue present medications. 8. Dyslipidemia -Patient is on statin therapy, continued at home dose 9. Diabetes mellitus type 2 ? Patient is on long-acting insulin did continue home doses in addition to Accu-Cheks before meals and at bedtime with sliding scale coverage ? 12/18/2022. Patient did develop hypoglycemia after he was kept NPO. Subsequent adjustment made to his insulin regimen both long and short acting 10. Multiple myeloma ? Patient is on lenalidomide; outpatient follow-up with Dr. Booker 11. Obstructive sleep apnea ? Consistent use of CPAP encouraged 12. GERD ? On PPI 13. Vitamin B-12 deficiency ? Patient is on home supplement did continue 14. COPD ? Aerosol treatments as needed 15. DVT prophylaxis ? Lovenox 40 mg SC every 12 ? 12/19/2022 Lovenox discontinued given above findings 16. Hypokalemia -Corrected per protocol Time spent in the patient's overall evaluation,decision-making process, review of diagnostic data, adjustment of management, discussion with other providers, nursing nursing and ancillary staff involved in patient's care documentation, 50 Minutes Charges/Coding Visit Charges Inpatient E&M: 90325 Subs Hosp L3
--- NOTE | 2022-12-19 08:27 | OP.EGD_ITS ---
Patient Name: Chacorta James Procedure Date: 12/19/2022 7:45 AM Date of : 1950 Age: 72 Procedure: Upper GI endoscopy Indications: Iron deficiency anemia Providers: Dudley Cid DO Medicines: Monitored Anesthesia Care Patient Profile: This is a 72 year old male. Refer to note in patient chart for documentation of history and physical. Patient has symptoms of acute cough and acute nausea. Complications: No immediate complications. Procedure: Pre-Anesthesia Assessment: - Prior to the procedure, a History and Physical was performed, and patient medications and allergies were reviewed. The risks and benefits of the procedure and the sedation options and risks were discussed with the patient. All questions were answered and informed consent was obtained. Patient identification and proposed procedure were verified by the physician in the pre-procedure area. Mental Status Examination: alert and oriented. Airway Examination: normal oropharyngeal airway and neck mobility. Respiratory Examination: clear to auscultation. CV Examination: normal. Prophylactic Antibiotics: The patient does not require prophylactic antibiotics. Prior Anticoagulants: The patient has taken no anticoagulant or antiplatelet agents. ASA Grade Assessment: III - A patient with severe systemic disease. After reviewing the risks and benefits, the patient was deemed in satisfactory condition to undergo the procedure. The anesthesia plan was to use monitored anesthesia care (MAC). Immediately prior to administration of medications, the patient was re-assessed for adequacy to receive sedatives. The heart rate, respiratory rate, oxygen saturations, blood pressure, adequacy of pulmonary ventilation, and response to care were monitored throughout the procedure. The physical status of the patient was re-assessed after the procedure. After obtaining informed consent, the endoscope was passed under direct vision. Throughout the procedure, the patient's blood pressure, pulse, and oxygen saturations were monitored continuously. The gastroscope was introduced through the mouth, and advanced to the second part of duodenum. The upper GI endoscopy was accomplished without difficulty. The patient tolerated the procedure well. Scope In: 8:13:59 AM Scope Out: 8:17:12 AM Total Procedure Duration Time 0 hours 3 minutes 13 seconds Findings: The examined esophagus was normal. Patchy mildly erythematous mucosa without bleeding was found in the gastric body. Biopsies were taken with a cold forceps for Helicobacter pylori testing. Verification of patient identification for the specimen was done. Estimated blood loss was minimal. Two 5 mm angiodysplastic lesions with bleeding were found on the greater curvature of the stomach. Coagulation for hemostasis using heater probe was successful. Estimated blood loss was minimal. Patchy moderate inflammation characterized by congestion (edema) and erosions was found in the duodenal bulb, in the first portion of the duodenum and in the second portion of the duodenum. Biopsies for histology were taken with a cold forceps for evaluation of celiac disease. Verification of patient identification for the specimen was done. Biopsies were taken with a cold forceps for Helicobacter pylori testing. Verification of patient identification for the specimen was done. Estimated blood loss was minimal. Impression: - Normal esophagus. - Erythematous mucosa in the gastric body. Biopsied. - Two bleeding angiodysplastic lesions in the stomach. Treated with a heater probe. - Duodenitis. Biopsied. Recommendation: - [facility]. - Resume regular diet. - Use Protonix (pantoprazole) 40 mg PO BID. - Check celiac disease labs - Continue present medications. Procedure Code(s): --- Professional --- 47195, 59, Esophagogastroduodenoscopy, flexible, transoral; with control of bleeding, any method 86287, 51, Esophagogastroduodenoscopy, flexible, transoral; with biopsy, single or multiple CPT copyright 2021 [employer]. All rights reserved. The codes documented in this report are preliminary and upon enrollment management manager review may be revised to meet current compliance requirements. Dudley Cid DO 12/19/2022 8:26:28 AM This report has been signed electronically. Number of Addenda: 0 Note Initiated On: 12/19/2022 7:45 AM
--- NOTE | 2022-12-19 08:27 | OP.CCLET_ITS ---
12/19/[address] Re : Upper GI endoscopy procedure for Chacorta Jamse Dear Dr. Lane This procedure was performed on Monday, December 19, 2022. My impressions and recommendations are as follows: Impressions : - Normal esophagus. - Erythematous mucosa in the gastric body. Biopsied. - Two bleeding angiodysplastic lesions in the stomach. Treated with a heater probe. - Duodenitis. Biopsied. Recommendations : - [facility] to [facility]. - Resume regular diet. - Use Protonix (pantoprazole) 40 mg PO BID. - Check celiac disease labs - Continue present medications. My findings are described in the full procedure note, which is enclosed. If I can be of further assistance, please feel free to contact me at . Sincerely, Dudley Cid, 12/19/2022 8:26:28 AM This report has been signed electronically.
[2022-12-19 09:07] LABS: Bedside Glucose 91 mg/dL (74-106)
[2022-12-19] MEDS: Cholecalciferol (VIT D3) 25 MCG TABLET (1,000 UNITS) 50 MCG PO (09:47)
[2022-12-19] MEDS: Potassium Chloride Oral Tablet 20 MEQ PO ×2 (09:48→17:14)
[2022-12-19] MEDS: Calcium Carb/Vitamin D 1 TABLET Tablet PO (09:48)
[2022-12-19] MEDS: dilTIAZem CD 180 MG Capsule PO (09:49)
[2022-12-19] MEDS: Acyclovir 200 MG Capsule 400 MG PO ×2 (09:49→21:49)
[2022-12-19] MEDS: Magnesium Chloride 64 MG Delay Rel.Tablet PO (09:49)
[2022-12-19 10:51] LABS: Anion Gap 9 (5-15); BUN 26 mg/dL (7-18); BUN/Creat Ratio 22.2 RATIO (10-20); Calcium,Total 7.4 mg/dL (8.5-10.1); Chloride 90 mmol/L (98-107); Creatinine, Serum 1.17 mg/dL (0.70-1.30); EST Glomerular Filtration Rate 65 mL/min (>60); Est Glom Filt Rate - Afr Amer 79 mL/min (>60); Estimated Creatinine Clearance 58.75 ml/min; Glucose 83 mg/dL (74-106); Magnesium 1.9 mg/dL (1.6-2.6); Phosphorus 4.9 mg/dL (2.5-4.9); Potassium 3.1 mmol/L (3.5-5.1); Sodium Level 137 mmol/L (136-145)
[2022-12-19 10:52] LABS: Absolute Lymphocyte Count 1.01 X10^3/uL (0.83-4.51); Absolute Neutrophil Count 7.3 X10^3/uL (2.0-7.7); Basophil# 0.02 X10^3/uL; Basophil% 0.2 % (0-1); Eosinophil# 0.36 X10^3/uL; Eosinophils% 3.4 % (0-5); Hematocrit 30.5 % (40-54); Hemoglobin 9.5 g/dL (13.0-16.5); Lymphocyte # 1.01 X10^3/ul (0.83-4.51); Lymphocyte % 9.4 % (19-41); Mean Corp Hgb Conc 31.1 g/dL (32-36); Mean Corpuscular Hgb 25.7 pg (27.0-32.0); Mean Corpuscular Volume 82.4 fL (80-94); Mean Platelet Vol. 10.4 fl (6.2-12.0); Monocyte# 1.94 X10^3/uL; Monocyte% 18.1 % (0-10); NRBC Flagged by Analyzer 0 % (0-5); Neutrophil # 7.33 X10^3/uL (2.7-7.7); Neutrophil % 68.2 % (47-70); POSITIVE DIFFERENTIAL YES; POSITIVE MORPHOLOGY YES; Platelet Count 500 K/mm3 (150-450); RBC Distribution Width SD 61.8 fl (35.1-43.9); White Blood Count 10.7 K/mm3 (4.4-11.0)
[2022-12-19 10:55] LABS: Differential Indicated SCAN CRITERIA MET
[2022-12-19 11:39] LABS: Differential Comment SCANNED
[2022-12-19 11:40] LABS: Anisocytosis 2+; Macrocytosis 1+; Microcytosis 1+
[2022-12-19] MEDS: Glucerna Shake 120 ML LIQUID PO ×2 (12:00→17:12)
[2022-12-19] MEDS: BENZOCAINE/MENTHOL 1 LOZENGE 2 LOZENGE MUCOUS MEM (12:02)
[2022-12-19] MEDS: Insulin Lispro 100 UNIT/ML INSULN.PEN 20 UNIT SC (12:03)
[2022-12-19] MEDS: Furosemide 100 MG/10 ML Vial 60 MG IV ×2 (15:06→21:49)
[2022-12-19] MEDS: Insulin Glargine-YFGN 100 UNIT/ML Pen 50 UNIT SC (17:12)
--- NOTE | 2022-12-19 21:40 | NURSING ---
BS 185 tonight per pt own nilton machine.
[2022-12-19] MEDS: Insulin Lispro 100 UNIT/ML INSULN.PEN SC (21:48)
[2022-12-19] MEDS: Senna/Docusate Sodium 1 Tablet 2 TABLET PO (21:49)
[2022-12-19] MEDS: Atorvastatin Calcium 20 MG Tablet PO (21:50)
[2022-12-20 03:38] VITALS: BP 126/54; PULSE 61; RESP 18; TEMP 36.4; O2SAT 95
[2022-12-20 05:34] VITALS: BP 130/59; PULSE 70
[2022-12-20] MEDS: Furosemide 100 MG/10 ML Vial 60 MG IV (05:37)
[2022-12-20] MEDS: 0.9% Saline Lock 10 ML Syringe IV ×2 (05:37→11:19)
[2022-12-20 06:27] LABS: Hematocrit 28.3 % (40-54); Hemoglobin 8.8 g/dL (13.0-16.5); Mean Corp Hgb Conc 31.1 g/dL (32-36); Mean Corpuscular Hgb 25.6 pg (27.0-32.0); Mean Corpuscular Volume 82.3 fL (80-94); Mean Platelet Vol. 10.2 fl (6.2-12.0); POSITIVE MORPHOLOGY YES; Platelet Count 460 K/mm3 (150-450); RBC Distribution Width CV 20.8 % (11.6-14.6); RBC Distribution Width SD 61.2 fl (35.1-43.9); Red Blood Count 3.44 M/mm3 (4.6-6.2); White Blood Count 9.6 K/mm3 (4.4-11.0)
[2022-12-20 06:59] LABS: Anion Gap 6 (5-15); BUN 28 mg/dL (7-18); BUN/Creat Ratio 26.7 RATIO (10-20); Calcium,Total 7.3 mg/dL (8.5-10.1); Chloride 90 mmol/L (98-107); Creatinine, Serum 1.05 mg/dL (0.70-1.30); EST Glomerular Filtration Rate 74 mL/min (>60); Est Glom Filt Rate - Afr Amer 90 mL/min (>60); Estimated Creatinine Clearance 65.46 ml/min; Glucose 108 mg/dL (74-106); Potassium 2.9 mmol/L (3.5-5.1); Sodium Level 134 mmol/L (136-145)
[2022-12-20 07:02] LABS: Scan Indicated on CBC? Y/N YES- FLAGS NOTED
[2022-12-20] MEDS: Albuterol 2.5 MG/3 ML VIAL.NEB. INHALATION (08:00)
[2022-12-20 08:05] VITALS: PULSE 60; RESP 18; O2SAT 96
[2022-12-20] MEDS: Budesonide Respules 0.5 MG/2 ML AMPUL.NEB. INHALATION (08:15)
[2022-12-20 09:33] VITALS: BP 125/42; PULSE 76; RESP 17; TEMP 36.7; O2SAT 94
[2022-12-20] MEDS: Glucerna Shake 120 ML LIQUID PO (09:36)
[2022-12-20] MEDS: Insulin Glargine-YFGN 100 UNIT/ML Pen 50 UNIT SC (09:36)
[2022-12-20] MEDS: Calcium Carb/Vitamin D 1 TABLET Tablet PO (09:38)
[2022-12-20] MEDS: Potassium Chloride Oral Tablet 20 MEQ PO (09:38)
[2022-12-20] MEDS: dilTIAZem CD 180 MG Capsule PO (09:39)
[2022-12-20] MEDS: Magnesium Chloride 64 MG Delay Rel.Tablet PO (09:39)
[2022-12-20] MEDS: Cholecalciferol (VIT D3) 25 MCG TABLET (1,000 UNITS) 50 MCG PO (09:39)
[2022-12-20] MEDS: Acyclovir 200 MG Capsule 400 MG PO (09:40)
[2022-12-20] MEDS: Potassium Chloride 10mEq/100mL 10 MEQ/100 ML IV.SOLN. 100 MEQ IV BOLUS (09:44)
[2022-12-20] MEDS: Potassium Chloride Oral Tablet 20 MEQ 60 MEQ PO (11:19)
[2022-12-20] MEDS: Ferrous Sulfate 325 MG Tablet PO (11:20)
[2022-12-20 12:04] VITALS: O2SAT 88; O2SAT 91; O2SAT 94
[2022-12-20] MEDS: Insulin Lispro 100 UNIT/ML INSULN.PEN SC (13:44)
[2022-12-20] MEDS: Insulin Lispro 100 UNIT/ML INSULN.PEN 20 UNIT SC (13:45)
[2022-12-20 14:21] LABS: Potassium 3.6 mmol/L (3.5-5.1)
[2022-12-20 15:56] VITALS: BP 122/58; PULSE 78; RESP 17; TEMP 36.7; O2SAT 94
--- NOTE | 2022-12-20 16:48 | CASEMGMT ---
RN CM notified that patient with need 2lpm continuous with home oxygen. Script received. Updated script sent to Jennifer via 2sms. CHUCHO CM in to update patient and . Patient denied further needs at this time. Patient had no further questions or concerns at this time.
--- NOTE | 2022-12-20 16:51 | DS.PCM_ITS ---
Providers Date of Admission: 12/16/22 Date of Discharge: 12/20/22 Primary Care Physician: Dr. Krishna Lane, DO Consultations 12/17/22 22:16 Consult: Gastroenterology Routine Consulting Provider: Mikaela G[facility] Reason for Consult: anemia with heme + stool EMERGENT Consult: No MD Notified: Yes Date Notified: 12/17/22 Time Notified: 22:16 Method of Notification: Text Reason For Visit: ACUTE HYPOXIC RESPIRATORY FAILURE/CHRONIC Diagnosis Discharge Diagnosis (1) Acute on chronic heart failure with preserved ejection fraction: Status: Acute Code(s): I50.33 - Acute on chronic diastolic (congestive) heart failure Medications at Discharge Home Medications aspirin 81 mg tablet,delayed release (Adult Aspirin Regimen) 81 mg PO QDAY heart health 08/19/17 atorvastatin 20 mg tablet (Lipitor) 20 mg PO QDAY cholesterol 08/19/17 calcium carbonate 600 mg-vitamin D3 5 mcg (200 unit) tablet (Calcium 600 with Vitamin D3) 1 tab PO QDAY supplement 08/19/17 magnesium 250 mg tablet 250 mg PO QDAY supplement 08/19/17 metformin 1,000 mg tablet (Glucophage) 1,000 mg PO BID diabetes 08/19/17 omega-3 fatty acids 1,000 mg capsule 1,000 mg PO QDAY supplement 08/19/17 levomefolate Ca 3 mg-B6 35 mg-meB12 2 mg-algal oil 90.314 mg capsule (Metanx (algal oil)) 1 cap PO DAILY 12/16/17 cholecalciferol (vitamin D3) 50 mcg (2,000 unit) tablet 50 mcg PO DAILY supplement 05/14/22 diltiazem HCl 180 mg capsule,extended release 24 hr 180 mg PO DAILY heart rate 05/14/22 dexamethasone 4 mg tablet 40 mg PO .weekly inflammation 10/12/22 acyclovir 400 mg tablet 400 mg PO BID anti viral 10/14/22 insulin aspart U-100 34 unit subcut QACBREAK diabetes 10/14/22 insulin aspart U-100 100 unit/mL (3 mL) subcutaneous pen (Novolog FlexPen U-100 Insulin aspart) 45 unit subcut QACDINNER diabetes 10/14/22 insulin aspart U-100 100 unit/mL (3 mL) subcutaneous pen (Novolog FlexPen U-100 Insulin aspart) 54 unit subcut QACLUNCH diabetes 10/14/22 insulin detemir U-100 78 unit subcut TIDWMEAL diabetes 10/14/22 lenalidomide 25 mg capsule 25 mg PO .COMPLEX 10/14/22 ondansetron 8 mg disintegrating tablet 8 mg PO Q8H PRN nausea and vomiting 10/14 albuterol sulfate 90 mcg/actuation aerosol inhaler (Ventolin HFA) 2 puff inhalation Q4H breathing #18 grams 12/07/22 umeclidinium 62.5 mcg-vilanterol 25 mcg/actuation powdr for inhalation (Anoro Ellipta) 1 inh inhalation QDAY breathing #60 ea 12/09/22 ferrous sulfate 550 mg PO .every other day supplement 12/17/22 insulin aspart U-100 100 unit/mL subcutaneous solution (Novolog U-100 Insulin aspart) 45 unit subcut QHS diabetes 12/17/22 furosemide 40 mg tablet 40 mg PO DAILY #30 tabs 12/20/22 losartan 50 mg tablet 50 mg PO DAILY #30 tabs 12/20/22 pantoprazole 40 mg tablet,delayed release 40 mg PO BID #60 tabs 12/20/22 potassium chloride 20 mEq tablet,extended release 20 meq PO DAILY #30 tabs 12/20/22 Hospital Course Operations None Procedures 2-D Echocardiogram and EGD Summary of Care Provided Minutes Spent on Discharge: 45 Hospital Course: Patient is a 72-year-old male with a past medical history as outlined who was admitted through the ED on 12/16/2022 with a complaint of shortness of breath which have been going on for about 2 weeks and worsening. He had assisted lower extremity edema. He had oxygen that he used at home with 2 L with exertion. However he had been using it more regularly during the day. Patient was not on Lasix but had been taking hydrochlorothiazide. On admission BNP was elevated at 373.7. Lactic acid was initially also elevated. He was saturating at 92% on [address] of the chest done showed no evidence of PE. He was also noted to have new moderate bilateral effusions and bilateral compressive atelectasis. He was admitted and managed for acute hypoxic respiratory failure due to acute on chronic heart failure preserved ejection fraction. Was placed on Lasix drip initially. Urine for strep and Legionella were negative. Respiratory panel was also negative. 2D echo done showed EF of 70%. His shortness of breath improved and was weaned down on oxygen. Patient was noted to be anemic and stool for occult blood was positive. He had EGD which showed severe erosive gastritis and 2 bleeding angiodysplastic lesions in the stomach which were treated with a he ater probe. He also had duodenitis which was biopsied. He was placed on p.o. pantoprazole 40 mg twice daily. Shortness of breath improved and he was weaned down to 2 L of oxygen. He remained stable and was discharged home on 12/20/2022. He was discharged on p.o. Lasix as well as p.o. potassium as well as p.o. pantoprazole 40 mg twice daily. He is follow-up with his primary care doctor and is follow-up with GI. Patient seen and examined prior to discharge. He had no complaints and had an u neventful night. Review of systems otherwise negative. Potassium was 2.9 and was replaced and had come up to 3.6 prior to discharge. Physical Exam Const General Appearance: cooperative, comfortable and well kempt HEENT normocephalic, head/scalp atraumatic, hearing grossly normal bilaterally, moist oral mucous membranes and oropharynx normal Mouth: oral and palatal mucosa normal Eyes PERRL, EOMs intact bilaterally and conjunctivae normal Neck no lymphadenopathy and supple Resp Resp Narrative: Mildly diminished breath sounds bibasally. No wheezes or crackles. On 2 L of oxygen by nasal cannula. Cardio regular rate, regular rhythm, S1 normal heart sound, S2 normal heart sound and no murmurs GI normal to inspection, nondistended, normoactive bowel sounds, soft to palpation, non-tender and non-distended Extremity normal to inspection, full ROM and no clubbing, cyanosis or edema Skin no rashes or lesions noted, no wounds and skin turgor normal Neuro oriented x3, CN's II-XII intact bilaterally, moves all extremities and no focal motor deficits Sensorium / Orientation: awake and alert Motor Exam: strength 5/5 throughout Psych affect normal Weight / BMI Weight Weight: 322 lb 1.526 oz Body Mass Index (BMI) 47.5 ABG / Lab / Microbiology Data 12/20/22 05:30 12/20/22 13:53 Laboratory: Laboratory Results - last 24 hr 12/20/22 05:30: WBC 9.6, RBC 3.44 L, Hgb 8.8 L, Hct 28.3 L, MCV 82.3, MCH 25.6 L , MCHC 31.1 L, RDW Std Deviation 61.2 H, RDW Coeff of Kavya 20.8 H, Plt Count 460 H, MPV 10.2, Sodium 134 L, Potassium 2.9 L, Chloride 90 L, Carbon Dioxide 38.0 H , Anion Gap 6, BUN 28 H, Creatinine 1.05, Estim Creat Clear Calc 65.46, Est GFR (MDRD) Af Amer 90, Est GFR (MDRD) Non-Af 74, BUN/Creatinine Ratio 26.7 H, Glucose 108 H, Calcium 7.3 L 12/20/22 13:53: Potassium 3.6 Microbiology: Microbiology 12/17/22 Unknown Stool Stool Occult Blood (NANCY) - Final Occult Blood Positive 12/16/22 22:38 Mucosa - Nose Respiratory Panel (PCR) - Final 12/16/22 22:36 Urine, Clean Catch Legionella Antigen - Final 12/16/22 22:36 Urine, Clean Catch Streptococcus pneumoniae Antigen (M - F inal D/C Instructions Discharge Diet: Low fat / Low cholesterol Discharge Activity: Return to Normal Activity Weight Bearing Status: Weight bearing as tolerated Call your doctor if you observe: Fever of 101 or Higher, Shortness of breath, Dizziness, Swelling in the ankles and Chest pain Meaningful Use Info Meaningful Use Diagnoses (Choose all that apply): CHF CHF GLENNA/ARB ordered at discharge?: No Reason GLENNA/ARB not ordered?: Not indicated Documented LVEF (%): 70 Discharge Plan Admission Admit Date/Time: 12/16/22 21:47 Primary Reason for Your Visit: acute on chronic HFpEF Attending Provider: Jackie Rose Primary Care Provider: Krishna Lane Consulting Providers: Fernanda Staples; Raj Carson Instructions Patient Instructions: Anemia, Coping with Heart Failure Discharge Orders/Prescriptions Prescriptions: New pantoprazole 40 mg tablet,delayed release (DR/EC) 40 mg PO BID Qty: 60 2RF furosemide 40 mg tablet 40 mg PO DAILY Qty: 30 2RF potassium chloride 20 mEq tablet extended release 20 meq PO DAILY Qty: 30 2RF losartan 50 mg tablet 50 mg PO DAILY Qty: 30 2RF Continued calcium carbonate-vitamin D3 [Calcium 600 with Vitamin D3] 600 mg(1,500mg) - 200 unit tablet 1 tab PO QDAY magnesium 250 mg tablet 250 mg PO QDAY omega-3 fatty acids 1,000 mg capsule 1,000 mg PO QDAY aspirin [Adult Aspirin Regimen] 81 mg tablet,delayed release (DR/EC) 81 mg PO QDAY atorvastatin [Lipitor] 20 mg tablet 20 mg PO QDAY metformin [Glucophage] 1,000 mg tablet 1,000 mg PO BID insulin detemir U-100 [Levemir FlexTouch U100 Insulin] 78 unit SC TIDWMEAL insulin aspart U-100 [Novolog FlexPen U-100 Insulin] 34 unit SC QACBREAK [id number]-algal oil [Metanx (algal oil)] 3 mg-35 mg-2 mg -90.314 mg capsule 1 cap PO DAILY diltiazem HCl 180 mg capsule,extended release 24hr 180 mg PO DAILY cholecalciferol (vitamin D3) 50 mcg (2,000 unit) tablet 50 mcg PO DAILY insulin aspart U-100 [Novolog FlexPen U-100 Insulin] 100 unit/mL (3 mL) insulin pen 54 unit subcut QACLUNCH insulin aspart U-100 [Novolog FlexPen U-100 Insulin] 100 unit/mL (3 mL) insulin pen 45 unit subcut QACDINNER acyclovir 400 mg tablet 400 mg PO BID lenalidomide 25 mg capsule 25 mg PO .COMPLEX Rx Instructions: 25 mg orally; swallow whole with glass of water; do not open, crush, chew , break, or dissolve dexamethasone 4 mg tablet 40 mg PO .weekly Rx Instructions: every ondansetron 8 mg tablet,disintegrating 8 mg PO Q8H PRN (Reason: nausea and vomiting) insulin aspart U-100 [Novolog U-100 Insulin aspart] 100 unit/mL solution 45 unit subcut QHS ferrous sulfate [Iron (ferrous sulfate)] 550 mg PO .every other day albuterol sulfate [Ventolin HFA] 90 mcg/actuation HFA aerosol inhaler 2 puff INHALATION Q4H Qty: 18 11RF Rx Instructions: administer with spacer Anoro Ellipta 62.5-25 mcg/actuation blister with device 1 inh inhalation QDAY Qty: 60 11RF Discontinued hydrochlorothiazide 25 mg tablet 25 mg PO DAILY irbesartan-hydrochlorothiazide 300-12.5 mg tablet 1 tab PO DAILY omeprazole 40 mg capsule,delayed release(DR/EC) 40 mg PO DAILY PRN (Reason: nause) Referrals / Follow Up: Krishna Lane DO [Primary Care Provider] - 01/18/23 11:30 am FriendDudley DO [Med Staff - Active Staff] - 06/14/23 10:15 am (This was the first appt the office had available if they have any sooner appts become available the office will call you. ) Disposition Disposition (needs filled in before D/C Order can be placed): Home, Self Care Charges/Coding Visit Charges Inpatient E&M: 53943 Disch Hosp >30min
[2022-12-21 12:29] LABS: Pathologist Review Reviewed
[2022-12-21 16:09] LABS: Deamidated Gliadin IgA 6 units (0-19); Deamidated Gliadin IgG 2 units (0-19); Endomysial Antibody IgA Negative (Negative); Immunoglobulin A 266 mg/dL (61-437); t-Transglutaminase IgA 4 U/mL (0-3)
== END 2022-12-20 17:26 | disposition home or self-care (01) | DRG 291 ==
LOC: ED 22:05 → PCU 23:05
PROVIDERS: Internal Medicine; Internal Medicine Gastroenterology; Admitting Provider Internal Medicine; Emergency Provider Emergency Medicine; PCP Family Medicine; Visit Provider Student in an Organized Health Care Education/Training Program
PROC: 0DJ08ZZ Inspection of Upper Intestinal Tract, Via Natural or Artificial Opening Endoscopic (ICD-10-PCS; CPT 43235; principal; 2022-12-19 06:05)
DX: I11.0 Hypertensive heart disease with heart failure (principal); I50.33 Acute on chronic diastolic (congestive) heart failure; K31.811 Angiodysplasia of stomach and duodenum with bleeding; K29.71 Gastritis, unspecified, with bleeding; K29.81 Duodenitis with bleeding; E87.1 Hypo-osmolality and hyponatremia; C90.00 Multiple myeloma not having achieved remission; Z68.42 Body mass index [BMI] 45.0-49.9, adult; J90 Pleural effusion, not elsewhere classified; E11.649 Type 2 diabetes mellitus with hypoglycemia without coma; K21.9 Gastro-esophageal reflux disease without esophagitis; I27.20 Pulmonary hypertension, unspecified; J44.9 Chronic obstructive pulmonary disease, unspecified; Z79.4 Long term (current) use of insulin; E66.01 Morbid (severe) obesity due to excess calories; D50.9 Iron deficiency anemia, unspecified; E78.2 Mixed hyperlipidemia; G47.33 Obstructive sleep apnea (adult) (pediatric); E55.9 Vitamin D deficiency, unspecified; E87.6 Hypokalemia; I25.10 Atherosclerotic heart disease of native coronary artery without angina pectoris; R09.02 Hypoxemia; R21 Rash and other nonspecific skin eruption; Z79.82 Long term (current) use of aspirin; Z79.84 Long term (current) use of oral hypoglycemic drugs; Z79.899 Other long term (current) drug therapy; Z87.891 Personal history of nicotine dependence
CPT/HCPCS: 36415; 71275; 80048; 80053; 82274; 82728; 82784; 82962; 83516; 83540; 83550; 83605; 83735; 83880; 84100; 84132; 84145; 84439; 84443; 84484; 85025; 85027; 86255; 87449; 87633; 88305; 88342; 93005; 93306; 94640; 97116; 97162; 97530; 97802; 99252; 99285; Q9957; Q9967; A4216; C8929; G0463; J1940

== ENCOUNTER 2022-12-24 11:46 | Emergency (ER) | payer MEDICARE, OTHER, SELFPAY ==
[2022-12-24 11:46] VITALS: BP 166/62; PULSE 94; RESP 20; TEMP 36.2; O2SAT 94; BMI 47.2
[2022-12-24 13:00] LABS: Bacteria 0 SEEN /hpf (None Seen); Mucous, Urine 0 SEEN /hpf (<or=2+); Red Blood Cells-Urine 0 SEEN /hpf (0-5); Squamous Epithelial Cells - UA 0 SEEN /hpf (0-5); White Blood Cells 0 SEEN /hpf (0-5)
[2022-12-24 13:12] LABS: Color, Urine Yellow (Yellow); Glucose, Dipstick 250 mg/dl (Normal); Ketone-Dipstick Negative (Negative); Leukocyte Esterase-Dipstick Negative /ul (Negative); Nitrite-Dipstick Negative (Negative); Occult Blood-Urine Negative /ul (Negative); Protein-Dipstick 15 mg/dl (Negative); Urine Bilirubin Dipstick Negative (Negative); Urine Clarity Clear (Clear); Urine Urobilinogen 1 mg/dl (Normal)
--- NOTE | 2022-12-24 15:24 | EX.ED.DYSGE1 ---
HPI History of Present Illness Chief Complaint: Complaint Informant: patient and spouse/S.O. Narrative Narrative: 9-year-old male presenting to the emergency room difficulty urinating. Patient was recently admitted for congestive heart failure and while he was in the hospital had an EGD performed. He is unsure of what type of anesthesia he had. He states that since Tuesday he has had difficulty urinating. He notes he is able to get small amounts at a time but feels a lot of pressure and discomfort in the pelvis/penis. He denies any new bigf-tyf-iehzhbo medications. He states he did have some new medications while in the hospital but did not bring his list with him. He denies any known prostate issues. No fever. [facility] Medical History Abnormal electrocardiogram Atherosclerotic heart disease of [place] coronary artery without angina pectoris Chest pain Chicken pox COPD (chronic obstructive pulmonary disease) MESA (dyspnea on exertion) Erectile dysfunction Essential hypertension History of left heart catheterization (LHC) (~01/27/11) Measles Mixed hyperlipidemia Multiple myeloma Murmur Obesity CONCHA (obstructive sleep apnea) Palpitations Smoldering multiple myeloma SOB (shortness of breath) Type 2 diabetes mellitus Home Medications aspirin 81 mg tablet,delayed release (Adult Aspirin Regimen) 81 mg PO QDAY heart health 08/19/17 [History Last Taken 06/17/20 10:00] atorvastatin 20 mg tablet (Lipitor) 20 mg PO QDAY cholesterol 08/19/17 [History Last Taken 06/17/20 10:00] calcium carbonate 600 mg-vitamin D3 5 mcg (200 unit) tablet (Calcium 600 with Vitamin D3) 1 tab PO QDAY supplement 08/19/17 [History Last Taken 06/17/20 10:00] magnesium 250 mg tablet 250 mg PO QDAY supplement 08/19/17 [History Last Taken 06/17/20 10:00] metformin 1,000 mg tablet (Glucophage) 1,000 mg PO BID diabetes 08/19/17 [History Last Taken 06/17/20] omega-3 fatty acids 1,000 mg capsule 1,000 mg PO QDAY supplement 08/19/17 [History Last Taken 06/17/20 10:00] levomefolate Ca 3 mg-B6 35 mg-meB12 2 mg-algal oil 90.314 mg capsule (Metanx (algal oil)) 1 cap PO DAILY 12/16/17 [History Last Taken 06/17/20] cholecalciferol (vitamin D3) 50 mcg (2,000 unit) tablet 50 mcg PO DAILY supplement 05/14/22 [History Last Taken Unknown] diltiazem HCl 180 mg capsule,extended release 24 hr 180 mg PO DAILY heart rate 05/14/22 [History Last Taken Unknown] dexamethasone 4 mg tablet 40 mg PO .weekly inflammation 10/12/22 [History Last Taken Unknown] acyclovir 400 mg tablet 400 mg PO BID anti viral 10/14/22 [History Last Taken Unknown] insulin aspart U-100 34 unit subcut QACBREAK diabetes 10/14/22 [History Last Taken Unknown] insulin aspart U-100 100 unit/mL (3 mL) subcutaneous pen (Novolog FlexPen U-100 Insulin aspart) 45 unit subcut QACDINNER diabetes 10/14/22 [History Last Taken Unknown] insulin aspart U-100 100 unit/mL (3 mL) subcutaneous pen (Novolog FlexPen U-100 Insulin aspart) 54 unit subcut QACLUNCH diabetes 10/14/22 [History Last Taken Unknown] insulin detemir U-100 78 unit subcut TIDWMEAL diabetes 10/14/22 [History Last Taken Unknown] lenalidomide 25 mg capsule 25 mg PO .COMPLEX 10/14/22 [History Last Taken Unknown] ondansetron 8 mg disintegrating tablet 8 mg PO Q8H PRN nausea and vomiting 10/14/22 [History Last Taken Unknown] albuterol sulfate 90 mcg/actuation aerosol inhaler (Ventolin HFA) 2 puff inhalation Q4H breathing #18 grams 12/07/22 [Rx Last Taken Unknown] umeclidinium 62.5 mcg-vilanterol 25 mcg/actuation powdr for inhalation (Anoro Ellipta) 1 inh inhalation QDAY breathing #60 ea 12/09/22 [Rx Last Taken Unknown] ferrous sulfate 550 mg PO .every other day supplement 12/17/22 [History Last Taken Unknown] insulin aspart U-100 100 unit/mL subcutaneous solution (Novolog U-100 Insulin aspart) 45 unit subcut QHS diabetes 12/17/22 [History Last Taken Unknown] furosemide 40 mg tablet 40 mg PO DAILY #30 tabs 12/20/22 [Rx Last Taken Unknown] losartan 50 mg tablet 50 mg PO DAILY #30 tabs 12/20/22 [Rx Last Taken Unknown] pantoprazole 40 mg tablet,delayed release 40 mg PO BID #60 tabs 12/20/22 [Rx Last Taken Unknown] potassium chloride 20 mEq tablet,extended release 20 meq PO DAILY #30 tabs 12/20/22 [Rx Last Taken Unknown] Allergy/AdvReac Type Severity Reaction Status Date / Time Penicillins Allergy Mild Rash Verified 12/24/22 11:48 Family History Father Myocardial infarction Mother Breast cancer Surgical History Bone spur removal History of cataract extraction Social History Smoking Status: Former smoker quit date: 04/25/02 pack-years: 31 alcohol intake: current alcohol intake frequency: holidays/special occasions only substance use type: does not use caffeine: Yes Type: coffee Number of servings: 5 ROS ROS ED Constitutional Constitutional ED: Denies chills or weight loss Eyes Eyes: Denies change in vision or diplopia ENT ENT ED: Denies ear pain, rhinorrhea or sore throat Cardiovascular Cardiovascular: Denies chest pain, orthopnea, palpitations or racing heartbeat Respiratory/Chest Respiratory/Chest: Denies cough, dyspnea or orthopnea Gastrointestinal Gastrointestinal: Denies abdominal pain, diarrhea, nausea or vomiting Genitourinary Genitourinary ED: Reports other Details: Urinary frequency with small amounts. Pelvic pressure. ; Denies dysuria, hematuria or urinary frequency Musculoskeletal Musculoskeletal: Denies arthralgias or myalgias Integumentary Denies abscess or rash Neurologic Neurologic: Denies headache(s) or weakness Psychiatric Psychiatric: Denies anxiety, depression, suicidal ideation or suicidal thoughts Endocrine Endocrinology: Denies polydipsia, polyphagia or polyuria Allergic/Immunologic Allergic/Immunologic ED: Denies mouth swelling, tongue swelling or urticaria EXAM Physical Exam Const Vital Signs: 12/24/22 11:46 Temperature 97.1 F L Temperature Source Temporal Pulse Rate 94 Respiratory Rate 20 H Blood Pressure 166/62 H Blood Pressure Mean 96 Pulse Ox 94 Oxygen Delivery Method Nasal Cannula Oxygen Flow Rate (L/min) 2 Positive well nourished, well developed and obese General Appearance ED: well developed Nutritional Appearance: obese HEENT Reports normocephalic, head/scalp atraumatic and moist mucous membranes Eyes PERRL and EOMs intact bilaterally Neck no lymphadenopathy, supple and no JVD Resp normal respiratory effort and clear to auscultation bilaterally Cardio regular rate, regular rhythm and no murmurs GI normal to inspection, nondistended, normoactive bowel sounds and non-tender GI Narrative: Full cough and examination limited by body habitus Palpation: soft Narrative: There is a palpable distended bladder. Back/Spine no CVA tenderness and normal ROM Extremity normal to inspection General Extremety ED: Negative for edema General Extremity: Negative for edema Neuro oriented x3 and CN's II-XII intact bilaterally Sensorium / Orientation: alert Motor Exam: strength 5/5 throughout Psych mental status grossly normal Mood & Affect: Negative for depressed or tearful Skin no rashes or lesions noted and no wounds MDM MDM MDM Narrative Medical decision making narrative: Bedside ultrasound performed by this physician demonstrates a distended bladder of greater than 1500 cc. Mckeon catheter was placed with 1800+ cc removed. Nursing notes that there was no difficulty passing Mckeon past prostate. Patient was observed no blood clots or bleeding noted. Urinalysis shows no overt infection. Today is Tuesday on holiday weekend we will have the patient follow-up with urology next week. Should he not be able to follow-up with urology he should call his primary care provider. If need be he can return to the emergency department. Home care fully discussed. Lab Data Labs: Laboratory Results - last 24 hr 12/24/22 12:40 Urine Color Yellow Urine Clarity Clear Urine pH 7.0 Ur Specific [place] 1.010 Urine Protein 15 H Urine Glucose (UA) 250 H Urine Ketones Negative Urine Occult Blood Negative Urine Nitrite Negative Urine Bilirubin Negative Urine Urobilinogen 1 H Ur Leukocyte Esterase Negative Urine RBC 0 SEEN Urine WBC 0 SEEN Ur Squamous Epith Cells 0 SEEN Urine Bacteria 0 SEEN Urine Mucus 0 SEEN Discharge Plan Triage Chief Complaint: Complaint ED Provider: Jus Ramon Dx/Rx/DC Orders Clinical Impression: Acute urinary retention Instructions: ED Mckeon Catheter, Care, ED Urinary Retention, Male Prescriptions: No Action calcium carbonate-vitamin D3 [Calcium 600 with Vitamin D3] 600 mg(1,500mg) -200 unit tablet 1 tab PO QDAY magnesium 250 mg tablet 250 mg PO QDAY omega-3 fatty acids 1,000 mg capsule 1,000 mg PO QDAY aspirin [Adult Aspirin Regimen] 81 mg tablet,delayed release (DR/EC) 81 mg PO QDAY atorvastatin [Lipitor] 20 mg tablet 20 mg PO QDAY metformin [Glucophage] 1,000 mg tablet 1,000 mg PO BID insulin detemir U-100 [Levemir FlexTouch U100 Insulin] 78 unit SC TIDWMEAL insulin aspart U-100 [Novolog FlexPen U-100 Insulin] 34 unit SC QACBREAK [id number]-algal oil [Metanx (algal oil)] 3 mg-35 mg-2 mg -90.314 mg capsule 1 cap PO DAILY diltiazem HCl 180 mg capsule,extended release 24hr 180 mg PO DAILY cholecalciferol (vitamin D3) 50 mcg (2,000 unit) tablet 50 mcg PO DAILY insulin aspart U-100 [Novolog FlexPen U-100 Insulin] 100 unit/mL (3 mL) insulin pen 54 unit subcut QACLUNCH insulin aspart U-100 [Novolog FlexPen U-100 Insulin] 100 unit/mL (3 mL) insulin pen 45 unit subcut QACDINNER acyclovir 400 mg tablet 400 mg PO BID lenalidomide 25 mg capsule 25 mg PO .COMPLEX Rx Instructions: 25 mg orally; swallow whole with glass of water; do not open, crush, chew , break, or dissolve dexamethasone 4 mg tablet 40 mg PO .weekly Rx Instructions: every ondansetron 8 mg tablet,disintegrating 8 mg PO Q8H PRN (Reason: nausea and vomiting) insulin aspart U-100 [Novolog U-100 Insulin aspart] 100 unit/mL solution 45 unit subcut QHS ferrous sulfate [Iron (ferrous sulfate)] 550 mg PO .every other day pantoprazole 40 mg tablet,delayed release (DR/EC) 40 mg PO BID Qty: 60 2RF furosemide 40 mg tablet 40 mg PO DAILY Qty: 30 2RF potassium chloride 20 mEq tablet extended release 20 meq PO DAILY Qty: 30 2RF losartan 50 mg tablet 50 mg PO DAILY Qty: 30 2RF albuterol sulfate [Ventolin HFA] 90 mcg/actuation HFA aerosol inhaler 2 puff INHALATION Q4H Qty: 18 11RF Rx Instructions: administer with spacer Anoro Ellipta 62.5-25 mcg/actuation blister with device 1 inh inhalation QDAY Qty: 60 11RF Primary Care Provider: Krishna Lane Referrals: Krishna Lane, [Primary Care Provider] - Arvind Haynes MD [Med Staff - Active Staff] - As soon as possible Disposition Disposition: Home, Self Care
== END 2022-12-24 15:56 | disposition home or self-care (01) ==
PROVIDERS: Emergency Provider Emergency Medicine; PCP Family Medicine; Visit Provider Emergency Medicine
DX: R33.9 Retention of urine, unspecified (principal); I25.10 Atherosclerotic heart disease of native coronary artery without angina pectoris; Z87.891 Personal history of nicotine dependence
CPT/HCPCS: 51702; 81001; 99283

== ENCOUNTER → 2023-01-03 | Outpatient (CLI) | payer MEDICARE, OTHER, SELFPAY | END | disposition home or self-care (01) | PROVIDERS: PCP Family Medicine; Referring Provider Nurse Practitioner; Visit Provider Urology | DX: R31.9 Hematuria, unspecified (principal); Z12.5 Encounter for screening for malignant neoplasm of prostate | CPT/HCPCS: 36415; 84153; 87086; 87186; G0103 ==

== ENCOUNTER → 2023-02-01 | Outpatient (CLI) | payer MEDICARE, OTHER, SELFPAY ==
[2023-02-01 15:35] LABS: Hematocrit 34.2 % (40-54); Hemoglobin 10.1 g/dL (13.0-16.5); Mean Corp Hgb Conc 29.5 g/dL (32-36); Mean Corpuscular Hgb 25.9 pg (27.0-32.0); Mean Corpuscular Volume 87.7 fL (80-94); Mean Platelet Vol. 10.2 fl (6.2-12.0); Platelet Count 412 K/mm3 (150-450); RBC Distribution Width CV 19.1 % (11.6-14.6); RBC Distribution Width SD 61.4 fl (35.1-43.9); White Blood Count 12.6 K/mm3 (4.4-11.0)
[2023-02-01 16:03] LABS: Anion Gap 8 (5-15); BUN 13 mg/dL (7-18); BUN/Creat Ratio 13.2 RATIO (10-20); Calcium,Total 8.8 mg/dL (8.5-10.1); Chloride 100 mmol/L (98-107); Creatinine, Serum 0.99 mg/dL (0.70-1.30); EST Glomerular Filtration Rate 79 mL/min (>60); Est Glom Filt Rate - Afr Amer 96 mL/min (>60); Glucose 214 mg/dL (74-106); Potassium 3.5 mmol/L (3.5-5.1); Sodium Level 135 mmol/L (136-145)
[2023-02-01 16:13] LABS: Hemoglobin A1c 6.9 % (3.8-5.6)
== END | disposition home or self-care (01) ==
LOC: BIMLAB 13:20
PROVIDERS: PCP Family Medicine; Visit Provider Anesthesiology
DX: Z01.818 Encounter for other preprocedural examination (principal); E11.9 Type 2 diabetes mellitus without complications
CPT/HCPCS: 36415; 80048; 83036; 85027

== ENCOUNTER 2023-02-02 11:33 | Observation (INO) | payer MEDICARE, OTHER, SELFPAY ==
[2023-02-02] VITALS (11 sets, daily range): BP systolic 132–177; BP diastolic 47–89; PULSE 72–91; RESP 16–30; TEMP 36.6–37.2; O2SAT 92–97; BMI 44.2; BMI 46.0
[2023-02-02] MEDS: Lactated Ringers 1,000 ML 15 ML IV (09:37)
[2023-02-02 10:08] LABS: Bedside Glucose 259 mg/dL (74-106)
--- NOTE | 2023-02-02 11:05 | HP.PCM_ITS ---
HPI - General General Date of Admission: 02/02/23 Chief Complaint: Retention of urine HPI Narrative CYN MARTINEZ, is a 72 M who presents for transurethral resection of the prostate for retention of urine patient is understand that unfortunate there is no guarantees that surgery will work and that he will be able to urinate afterwards in the normal fashion there was a risk of incontinence and bleeding with the surgery this was explained to the patient but he wishes to proceed to improve his chances of being able to urinate normally without a catheter [facility] Medical History (Updated 02/01/23 @ 09:44 by Isamar Garcia) Abnormal electrocardiogram Alcohol use Anemia Atherosclerotic heart disease of [place] coronary artery without angina pectoris Cancer Cardiology follow-up encounter Chest pain Chicken pox COPD (chronic obstructive pulmonary disease) CPAP (continuous positive airway pressure) dependence MESA (dyspnea on exertion) Erectile dysfunction Essential hypertension Former smoker High cholesterol History of atrial fibrillation History of CHF (congestive heart failure) History of echocardiogram History of edema History of Holter monitoring History of irregular heartbeat History of left heart catheterization (LHC) (~01/27/11) History of steroid therapy History of stress test Hx of multiple myeloma Insulin dependent diabetes mellitus Measles Mixed hyperlipidemia Multiple myeloma Murmur Obesity On home oxygen therapy CONCHA (obstructive sleep apnea) Palpitations Rash Shortness of breath on exertion Sleep apnea Smoldering multiple myeloma SOB (shortness of breath) Type 2 diabetes mellitus Wears glasses Wears hearing aid Home Medications atorvastatin 20 mg tablet (Lipitor) 20 mg PO QDAY cholesterol 08/19/17 [History Last Taken 02/01/23] calcium carbonate 600 mg-vitamin D3 5 mcg (200 unit) tablet (Calcium 600 with Vitamin D3) 1 tab PO QDAY supplement 08/19/17 [History Last Taken 06/17/20 10:00] magnesium 250 mg tablet 500 mg PO QDAY supplement 08/19/17 [History Last Taken 02/01/23] metformin 1,000 mg tablet (Glucophage) 1,000 mg PO BID diabetes 08/19/17 [History Last Taken 02/01/23] omega-3 fatty acids 1,000 mg capsule 1,000 mg PO QDAY supplement 08/19/17 [History Last Taken 01/25/23] levomefolate Ca 3 mg-B6 35 mg-meB12 2 mg-algal oil 90.314 mg capsule (Metanx (algal oil)) 1 cap PO BID 12/16/17 [History Last Taken 02/01/23] cholecalciferol (vitamin D3) 50 mcg (2,000 unit) tablet 50 mcg PO DAILY supplement 05/14/22 [History Last Taken Unknown] diltiazem HCl 180 mg capsule,extended release 24 hr 180 mg PO DAILY heart rate 05/14/22 [History Last Taken 02/02/23 07:45] acyclovir 400 mg tablet 400 mg PO BID anti viral 10/14/22 [History Last Taken 02/01/23] insulin aspart U-100 34 unit subcut QACBREAK diabetes 10/14/22 [History Last Taken 02/01/23] insulin aspart U-100 100 unit/mL (3 mL) subcutaneous pen (Novolog FlexPen U-100 Insulin aspart) 50 unit subcut QACDINNER diabetes 10/14/22 [History Last Taken 02/01/23] insulin aspart U-100 100 unit/mL (3 mL) subcutaneous pen (Novolog FlexPen U-100 Insulin aspart) 58 unit subcut QACLUNCH diabetes 10/14/22 [History Last Taken 02/01/23] insulin detemir U-100 78 unit subcut TIDWMEAL diabetes 10/14/22 [History Last Taken 02/01/23] ondansetron 8 mg disintegrating tablet 8 mg PO Q8H PRN nausea and vomiting 10/14/22 [History Last Taken Unknown] albuterol sulfate 90 mcg/actuation aerosol inhaler (Ventolin HFA) 2 puff inhalation Q4H breathing #18 grams 12/07/22 [Rx Last Taken 02/01/23] insulin aspart U-100 100 unit/mL subcutaneous solution (Novolog U-100 Insulin aspart) 45 unit subcut QHS diabetes 12/17/22 [History Last Taken 02/01/23] handicap placard #1 ea 01/18/23 [Rx Last Taken Unknown] losartan 50 mg tablet 50 mg PO DAILY #90 tabs 01/18/23 [Rx Last Taken 02/01/23] pantoprazole 40 mg tablet,delayed release 40 mg PO BID #60 tabs 01/18/23 [Rx Last Taken 02/02/23] tamsulosin 0.4 mg capsule 0.4 mg PO DAILY 01/18/23 [History Last Taken 02/02/23] torsemide 10 mg tablet 10 mg PO QAM #30 tabs 01/18/23 [Rx Last Taken 02/01/23] fluticasone fur. 200 mcg-umeclid 62.5 mcg-vilant 25 mcg inhalat.powder (Trelegy Ellipta) 1 inh inhalation DAILY 02/01/23 [History Last Taken 02/02/23] Allergy/AdvReac Type Severity Reaction Status Date / Time Penicillins Allergy Mild Rash Verified 02/02/23 09:24 Family History Father Myocardial infarction Mother Breast cancer Surgical History (Updated 02/01/23 @ 09:44 by Isamar Garcia) Bone spur removal History of cataract extraction Hx of bilateral cataract extraction Hx of esophagogastroduodenoscopy Social History Smoking Status: Former smoker quit date: 04/25/02 pack-years: 31 alcohol intake: current alcohol intake frequency: holidays/special occasions only substance use type: does not use caffeine: Yes Type: coffee Number of servings: 5 Vital Signs Vital Signs Vital Signs: 02/02/23 09:29 02/02/23 09:29 Temperature 98.9 F Temperature Source Temporal Pulse Rate 91 Respiratory Rate 16 Respiratory Pattern Normal Blood Pressure 165/75 H Blood Pressure Mean 105 Blood Pressure Source Monitor Blood Pressure Position Semi-Fowlers Blood Pressure Location Left Arm Pulse Ox 92 Oxygen Delivery Method Nasal Cannula Oxygen Flow Rate (L/min) 2 Weight Weight: 136 kg Body Mass Index (BMI) 44.2 Results Lab / Micro Data Labs: Laboratory Results - last 24 hr 02/02/23 09:33: POC Glucose 259 H
--- NOTE | 2023-02-02 11:15 | PROS_PTH ---
PATIENT: CYN MARTINEZ Jr. LOC: [facility] [place] U#:[id number] AGE/SX: 72/M ROOM: [facility] RE02/02/[address]: Dr. Arvind Haynes MD : 1950 BED: 1 DIS: 02/03/2023 SPEC #: [id number] RECD: 02/02/23 15:13 STATUS: KRISTI LYAurelio #: [id number] LISBET: 02/02/23 11:[address]: Arvind Haynes DEPT: SURGICAL PATHOLOGY RECD BY: Tracee Aguilar ENTERED: 02/03/23 08:45 SP TYPE: TURP OTHR DR: DO Dr. Krishna Mathur DO Tissues: Prostate, NOS Procedures: Surgery Specimen Level IV HEADER OPERATION: Transurethral resection of prostate with Olympus PRE-OP DIAGNOSIS: BPH with obstruction TISSUE SUBMITTED: Prostate tissue MICROSCOPIC DIAGNOSIS Prostate, transurethral resection: Benign nodular hyperplasia, glandular and stromal types. Chronic inflammation. AM:osbaldo 02/04/2023 MICROSCOPIC DESCRIPTION Slides are reviewed. GROSS DESCRIPTION Received is one container labeled with the patient's name and designated prostate tissue. The specimen consists of multiple irregular fragments of pink-vaughn, rubbery, soft tissue that in aggregate weigh 9.2 gm and measure in aggregate 8.5 x 5.5 x 0.2 cm. The entire specimen is submitted in six cassettes. / AM:osbaldo 02/03/2023 TC:3 CPT: 48317
[2023-02-02] MEDS: Cefazolin 2 GM in 0.9% Normal Saline (100mL Bag) 100 ML IV (11:25)
--- NOTE | 2023-02-02 12:26 | DCINST_ITS ---
Discharge Instructions Diet Discharge Diet: No restrictions Activity Discharge Activity: Return to Normal Activity and May Not Drive (while taking narcotic pain medications.) Dressing / Incision Call your doctor if you observe: Fever of 101 or Higher Follow Up Care Please Follow Up With: Arvnid Haynes MD When: Call [phone] for an appointment Test Results: Test results from this visit will be discussed in further detail at your follow- up appointment, if applicable. Discharge Plan Admission Primary Reason for Your Visit: turp Attending Provider: Arvind Haynes Primary Care Provider: Krishna Lane Discharge Orders/Prescriptions Prescriptions: New finasteride [Proscar] 5 mg tablet 5 mg PO DAILY Qty: 90 3RF ciprofloxacin HCl 500 mg tablet 500 mg PO BID Qty: 10 0RF Continued calcium carbonate-vitamin D3 [Calcium 600 with Vitamin D3] 600 mg(1,500mg) - 200 unit tablet 1 tab PO QDAY magnesium 250 mg tablet 500 mg PO QDAY omega-3 fatty acids 1,000 mg capsule 1,000 mg PO QDAY atorvastatin [Lipitor] 20 mg tablet 20 mg PO QDAY metformin [Glucophage] 1,000 mg tablet 1,000 mg PO BID insulin detemir U-100 [Levemir FlexTouch U100 Insulin] 78 unit SC TIDWMEAL insulin aspart U-100 [Novolog FlexPen U-100 Insulin] 34 unit SC QACBREAK [id number] oil [Metanx (algal oil)] 3 mg-35 mg-2 mg -90.314 mg capsule 1 cap PO BID diltiazem HCl 180 mg capsule,extended release 24hr 180 mg PO DAILY cholecalciferol (vitamin D3) 50 mcg (2,000 unit) tablet 50 mcg PO DAILY insulin aspart U-100 [Novolog FlexPen U-100 Insulin] 100 unit/mL (3 mL) insulin pen 58 unit subcut QACLUNCH insulin aspart U-100 [Novolog FlexPen U-100 Insulin] 100 unit/mL (3 mL) insulin pen 50 unit subcut QACDINNER acyclovir 400 mg tablet 400 mg PO BID ondansetron 8 mg tablet,disintegrating 8 mg PO Q8H PRN (Reason: nausea and vomiting) tamsulosin 0.4 mg capsule 0.4 mg PO DAILY Patient Comments: TAKE 1 CAPSULE BY MOUTH EVERYDAY AT BEDTIME pantoprazole 40 mg tablet,delayed release (DR/EC) 40 mg PO BID Qty: 60 2RF losartan 50 mg tablet 50 mg PO DAILY Qty: 90 2RF torsemide 10 mg tablet 10 mg PO QAM Qty: 30 2RF (DME) handicap placard See Rx Instructions .Route .MEDSUPPLY Qty: 1 0RF Rx Instructions: Duration for 5 years Trelegy Ellipta 200-62.5-25 mcg blister with device 1 inh inhalation DAILY insulin aspart U-100 [Novolog U-100 Insulin aspart] 100 unit/mL solution 45 unit subcut QHS albuterol sulfate [Ventolin HFA] 90 mcg/actuation HFA aerosol inhaler 2 puff INHALATION Q4H Qty: 18 11RF Rx Instructions: administer with spacer Referrals / Follow Up: Krishna Lane DO [Primary Care Provider] - Arvind Haynes MD [Med Staff - Active Staff] - Disposition Disposition (needs filled in before D/C Order can be placed): Home, Self Care
--- NOTE | 2023-02-02 12:26 | PCM.OPRPT ---
Report of Operation Date of Procedure: 02/02/23 Pre-Operative Diagnosis: BPH with a obstruction retention of urine Post-Operative Diagnosis: The same Surgery/Procedure Performed:: Transurethral section of prostate Description of Surgical Findings:: Patient was taken back to the operating room at the smooth induction of general anesthesia he was placed in dorsolithotomy position the penis and testicles were prepped and draped in usual fashion the Mckeon had been removed. Then after general anesthesia was secured I went into the bladder with a 26 Yoruba continuous-flow Olympus resectoscope I marked out the length of the resection he had a short length but obstructive channel with bilateral hypertrophy and a median lobe I then marked out in front of the verumontanum at the 6:00 3:00 and 12 o'clock position in the prostatic urethra I then started resection at the 12 o'clock position to resect the anterior apical tissue first and then once I got the nicely resected then I worked my way laterally down from the top down start going first from the 12:00 to 3:00 and then the 12:00 to the 9:00 in the prostate and then finally I did from the 3:00 to 6:00 and the 9:00 to the 6:00 on the prostate laterally on the left and right side I then resected down back down to the verumontanum resected the median lobe got all the chips Ellik out I then switched over to the button and smooth out the resection we did a flow test had a nice wide open flow sphincter looked nice and intact resection was wide open I think he will get good results from what I see today cauterized extensively got good hemostasis patient's anesthetic was reversed and taken back to the PACU in good condition with continuous bladder irrigation we placed a 22 Yoruba three-way catheter in the bladder. At the end of the case I inspected the bladder and the left and right ureteral orifice were intact and uninjured. Surgeon: Arvind Haynes Type of Anesthesia: General Drains: 22fr [address] way Admit VTE Documentation VTE Present on Admission: No VTE Mechan Device Prophylaxis: SCD's VTE Pharm Prophylaxis ordered?: No
[2023-02-02 13:09] LABS: Bedside Glucose 256 mg/dL (74-106)
[2023-02-02] MEDS: HYDROcodone Bitartrate/Apap 5/325 Tablet PO (15:42)
[2023-02-02] MEDS: 0.9% Normal Saline (1000mL) 1,000 ML 125 ML IV (15:46)
[2023-02-02 15:56] LABS: Bedside Glucose 239 mg/dL (74-106)
[2023-02-02] MEDS: Insulin Lispro 100 UNIT/ML INSULN.PEN 50 UNIT SC (17:10)
[2023-02-02] MEDS: Insulin Glargine-YFGN 100 UNIT/ML Pen 74 UNIT SC (17:11)
--- NOTE | 2023-02-02 18:11 | PCM.PN.HOSP ---
Subjective Subjective 72 old male with hypertension and type II diet presents to the hospital with an elective transurethral prostate resection. He is doing well postoperatively with the continuous bladder irrigation. He says that his medical history is stable at the moment with no recent medication changes Objective Data Objective Data Vital Signs: Vital Signs Temp Pulse Resp BP Pulse Ox O2 Del Method O2 Flow Rate 98.4 F 75 18 154/76 H 94 Nasal Cannula 2 02/02/23 16:57 02/02/23 16:57 02/02/23 16:57 02/02/23 16:57 02/02/23 16:57 02/02/23 16:57 02/02/23 16:57 Oxygen Flow Rate (L/min) 2 Oxygen Delivery Method Nasal Cannula Weight: 312 lb Body Mass Index (BMI) 46.0 Intake & Output: Intake and Output for Last 24 Hours 02/01/23 02/02/23 02/03/23 03:59 03:59 03:59 Intake Total 110 / 110 Output Total 6100 / 6100 Balance -5990 / -5990 Lab / Micro Data Labs: Laboratory Results - last 24 hr 02/02/23 09:33: POC Glucose 259 H 02/02/23 12:49: POC Glucose 256 H 02/02/23 15:07: POC Glucose 239 H Physical Exam Const alert, oriented x3 and no apparent distress General Appearance: cooperative HEENT normocephalic and moist oral mucous membranes Eyes PERRL, EOMs intact bilaterally and conjunctivae normal Neck supple and no JVD Resp normal respiratory effort, no retractions, no use of accessory muscles and clear to auscultation bilaterally Auscultation: Negative for crackles, rales, rhonchi or wheezes Cardio regular rate, regular rhythm, S1 normal heart sound, S2 normal heart sound and no murmurs GI soft to palpation, non-tender and non-distended; Negative for hepatosplenomegaly Extremity no clubbing, cyanosis or edema Skin no rashes or lesions noted Neuro no focal motor deficits and no sensory deficits noted Psych affect normal Appearance: appropriate Assessment & Plan Assessment/Plan (1) Status post recent transurethral resection of prostate: PLAN: Plan 1. Status post transurethral resection of prostate on 02/02/2023 ? Pain management per primary ? Continue with continuous bladder irrigation ? Discharge planning per primary 2. HTN/HLD/diastolic CHF with pulmonary hypertension with chronic respiratory failure compounded by obstructive sleep apnea ? Continue with his home blood pressure medications, will monitor and make adjustments as necessary ? He is on chronic 2 L of oxygen during the day and wears CPAP at night I requested that his bring in his CPAP for tonight ? We will recheck labs in the morning ? She is on IV fluids postprocedure this appears to be only for 1 L with should be okay with his pulmonary hypertension and diastolic CHF can resume Lasix in the morning 3. IDDM 2 ? We will resume all of his home insulin ? Accu-Cheks ACHS ? We will monitor and make adjustments as necessary 4. GERD ? Stable ? Continue with PPI DVT: Ambulation Charges/Coding Visit Charges Office Visits / Consults: 44352 OV L3 New
[2023-02-02] MEDS: Ketorolac 15 MG/ML Vial IV (18:52)
[2023-02-02] MEDS: Budesonide Respules 0.5 MG/2 ML AMPUL.NEB. INHALATION (19:14)
[2023-02-02] MEDS: Ipratropium/Albuterol Sulfate 3 ML AMPUL.NEB INHALATION (19:14)
[2023-02-02] MEDS: Docusate Sodium 100 MG Capsule 200 MG PO (21:35)
[2023-02-02] MEDS: Pantoprazole Sodium 40 MG Tablet PO (21:37)
[2023-02-02] MEDS: Acyclovir 200 MG Capsule 400 MG PO (21:37)
[2023-02-02] MEDS: Insulin Lispro 100 UNIT/ML INSULN.PEN 45 UNIT SC (21:38)
[2023-02-02] MEDS: Ciprofloxacin 400 MG/200 ML BAG 200 MG IV (21:50)
[2023-02-02 22:03] LABS: Bedside Glucose 218 mg/dL (74-106)
[2023-02-03] MEDS: 0.9% Normal Saline (1000mL) 1,000 ML 125 ML IV (00:22)
[2023-02-03] MEDS: Ketorolac 15 MG/ML Vial IV (01:04)
[2023-02-03 03:00] VITALS: PULSE 68; RESP 18; O2SAT 92
[2023-02-03 04:07] VITALS: BP 136/58; PULSE 68; RESP 18; TEMP 36.7; O2SAT 92
[2023-02-03 06:45] LABS: Absolute Lymphocyte Count 1.11 X10^3/uL (0.83-4.51); Absolute Neutrophil Count 11.8 X10^3/uL (2.0-7.7); Basophil# 0.02 X10^3/uL; Basophil% 0.1 % (0-1); Eosinophil# 0.04 X10^3/uL; Eosinophils% 0.3 % (0-5); Hematocrit 30.5 % (40-54); Hemoglobin 9.2 g/dL (13.0-16.5); Lymphocyte # 1.11 X10^3/ul (0.83-4.51); Mean Corp Hgb Conc 30.2 g/dL (32-36); Mean Corpuscular Hgb 26.5 pg (27.0-32.0); Mean Corpuscular Volume 87.9 fL (80-94); Mean Platelet Vol. 9.9 fl (6.2-12.0); Monocyte# 0.93 X10^3/uL; Monocyte% 6.7 % (0-10); NRBC Flagged by Analyzer 0 % (0-5); Neutrophil # 11.78 X10^3/uL (2.7-7.7); Neutrophil % 84.3 % (47-70); Platelet Count 336 K/mm3 (150-450); RBC Distribution Width CV 18.2 % (11.6-14.6); Red Blood Count 3.47 M/mm3 (4.6-6.2)
--- NOTE | 2023-02-03 06:55 | PN.URO_ITS ---
Subjective Subjective Status post transurethral section of the prostate, we can remove the catheter this morning patient can go home after he voids Objective Data Objective Data Vital Signs: Vital Signs Temp Pulse Resp BP Pulse Ox O2 Del Method O2 Flow Rate 98.0 F 68 18 136/58 H 92 Room Air 2 02/03/23 04:07 02/03/23 04:07 02/03/23 04:07 02/03/23 04:07 02/03/23 04:07 02/03/23 04:07 02/02/23 22:11 Oxygen Flow Rate (L/min) 2 Oxygen Delivery Method Room Air Weight: 141.521 kg Body Mass Index (BMI) 46.0 Intake & Output: Intake and Output for Last 24 Hours 02/01/23 02/02/23 02/03/23 23:59 23:59 23:59 Intake Total 310 / 310 1000 / 1000 Output Total 9650 / 9650 6000 / 6000 Balance -9340 / -9340 -5000 / -5000 Lab / Micro Data 02/03/23 06:24 02/03/23 06:24 Labs: Laboratory Results - last 24 hr 02/02/23 09:33: POC Glucose 259 H 02/02/23 12:49: POC Glucose 256 H 02/02/23 15:07: POC Glucose 239 H 02/02/23 21:42: POC Glucose 218 H 02/03/23 06:24: WBC 14.0 H, RBC 3.47 L, Hgb 9.2 L, Hct 30.5 L, MCV 87.9, MCH 26.5 L, MCHC 30.2 L, RDW Std Deviation 59.0 H, RDW Coeff of Kavya 18.2 H, Plt Count 336, MPV 9.9, Immature Gran % (Auto) 0.600, Neut % (Auto) 84.3 H, Lymph % (Auto) 8.0 L, [place] % (Auto) 6.7, Eos % (Auto) 0.3, Baso % (Auto) 0.1, Absolute Neuts (auto) 11.8 H, Absolute Lymphs (auto) 1.11, Nucleated RBC % 0
[2023-02-03 07:17] LABS: Anion Gap 5 (5-15); BUN 14 mg/dL (7-18); BUN/Creat Ratio 17.2 RATIO (10-20); Calcium,Total 8.2 mg/dL (8.5-10.1); Chloride 102 mmol/L (98-107); Creatinine, Serum 0.82 mg/dL (0.70-1.30); EST Glomerular Filtration Rate 99 mL/min (>60); Est Glom Filt Rate - Afr Amer 120 mL/min (>60); Estimated Creatinine Clearance 83.82 ml/min; Glucose 123 mg/dL (74-106); Potassium 3.8 mmol/L (3.5-5.1); Sodium Level 134 mmol/L (136-145)
[2023-02-03] MEDS: Budesonide Respules 0.5 MG/2 ML AMPUL.NEB. INHALATION (07:51)
[2023-02-03 07:52] VITALS: PULSE 75; RESP 18
[2023-02-03] MEDS: Ipratropium/Albuterol Sulfate 3 ML AMPUL.NEB INHALATION (07:52)
[2023-02-03] MEDS: Insulin Glargine-YFGN 100 UNIT/ML Pen 74 UNIT SC (08:21)
[2023-02-03] MEDS: Magnesium Chloride 64 MG Delay Rel.Tablet 128 MG PO (08:24)
[2023-02-03] MEDS: Acyclovir 200 MG Capsule 400 MG PO (08:24)
[2023-02-03] MEDS: Atorvastatin Calcium 20 MG Tablet PO (08:24)
[2023-02-03] MEDS: Losartan Potassium 50 MG Tablet PO (08:24)
[2023-02-03] MEDS: dilTIAZem CD 180 MG Capsule PO (08:25)
[2023-02-03] MEDS: Pantoprazole Sodium 40 MG Tablet PO (08:25)
[2023-02-03] MEDS: Furosemide 20 MG Tablet PO (08:25)
[2023-02-03] MEDS: Tamsulosin HCl 0.4 MG Capsule PO (08:25)
[2023-02-03 08:48] LABS: Bedside Glucose 150 mg/dL (74-106)
[2023-02-03 10:00] VITALS: BP 136/69; PULSE 82; RESP 16; TEMP 36.6; O2SAT 96
--- NOTE | 2023-02-03 10:14 | PN.HOSP_ITS ---
Reason for Visit Reason for Visit: Diagnoses Encounter for other preprocedural examination (02/02/23) Other specified postprocedural states (02/02/23) Subjective Subjective Feels well. Catheter removed this AM. Objective Data Objective Data Vital Signs: Vital Signs Temp Pulse Resp BP Pulse Ox O2 Del Method O2 Flow Rate 36.6 C 82 16 136/69 H 96 Nasal Cannula 2 02/03/23 10:00 02/03/23 10:00 02/03/23 10:00 02/03/23 10:00 02/03/23 10:00 02/03/23 10:00 02/03/23 10:00 Oxygen Flow Rate (L/min) 2 Oxygen Delivery Method Nasal Cannula Weight: 141.521 kg Body Mass Index (BMI) 46.0 Intake & Output: Intake and Output for Last 24 Hours 02/01/23 02/02/23 02/03/23 23:59 23:59 23:59 Intake Total 310 / 310 2000 / 2000 Output Total 9650 / 9650 6000 / 6000 Balance -9340 / -9340 -4000 / -4000 Lab / Micro Data 02/03/23 06:24 02/03/23 06:24 Labs: Laboratory Results - last 24 hr 02/02/23 12:49: POC Glucose 256 H 02/02/23 15:07: POC Glucose 239 H 02/02/23 21:42: POC Glucose 218 H 02/03/23 06:24: WBC 14.0 H, RBC 3.47 L, Hgb 9.2 L, Hct 30.5 L, MCV 87.9, MCH 26.5 L, MCHC 30.2 L, RDW Std Deviation 59.0 H, RDW Coeff of Kavya 18.2 H, Plt Count 336, MPV 9.9, Immature Gran % (Auto) 0.600, Neut % (Auto) 84.3 H, Lymph % (Auto) 8.0 L, [place] % (Auto) 6.7, Eos % (Auto) 0.3, Baso % (Auto) 0.1, Absolute Neuts (auto) 11.8 H, Absolute Lymphs (auto) 1.11, Nucleated RBC % 0, Sodium 134 L, Potassium 3.8, Chloride 102, Carbon Dioxide 27.0, Anion Gap 5, BUN 14, Creatinine 0.82, Estim Creat Clear Calc 83.82, Est GFR (MDRD) Af Amer 120, Est GFR (MDRD) Non-Af 99, BUN/Creatinine Ratio 17.2, Glucose 123 H, Calcium 8.2 L 02/03/23 08:19: POC Glucose 150 H Physical Exam Const alert and no apparent distress HEENT head/scalp atraumatic and moist oral mucous membranes Neuro Sensorium / Orientation: awake and alert Psych affect normal Assessment & Plan Assessment/Plan (1) Status post recent transurethral resection of prostate: PLAN: Plan S/P TURP on 02/02 Catheter removed Mgmt per HTN: Stable Continue losartan DM2: Insulin-dependent On Metformin, continue basal and prandial insulin. GERD: continue pantoprazole HFpEF chronic. stable. continue torsemide, losartan medically stable for discharge. Charges/Coding Visit Charges Inpatient E&M: 06338 Subs Hosp L1
--- NOTE | 2023-02-03 11:30 | PHA.DC_ITS ---
Pharmacy [facility] has performed discharge medication reconciliation and counseling for this patient. The patient was counseled on the following discharge medications and changes in medications for homegoing were reviewed. 1. FINASTERIDE 2. CIPROFLOXACIN The Reason for Use, instructions for use, and potential side effects were r eviewed for all new medications. The patient's questions regarding all of their medications were answered. The patient was able to verbally demonstrate an understanding of their discharge medications. The patient's discharge medication list was reviewed for discrepancies and discrepancies were resolved. Medications at Discharge Home Medications atorvastatin 20 mg tablet (Lipitor) 20 mg PO QDAY cholesterol 08/19/17 calcium carbonate 600 mg-vitamin D3 5 mcg (200 unit) tablet (Calcium 600 with Vitamin D3) 1 tab PO QDAY supplement 08/19/17 magnesium 250 mg tablet 500 mg PO QDAY supplement 08/19/17 metformin 1,000 mg tablet (Glucophage) 1,000 mg PO BID diabetes 08/19/17 omega-3 fatty acids 1,000 mg capsule 1,000 mg PO QDAY supplement 08/19/17 levomefolate Ca 3 mg-B6 35 mg-meB12 2 mg-algal oil 90.314 mg capsule (Metanx (algal oil)) 1 cap PO BID 12/16/17 cholecalciferol (vitamin D3) 50 mcg (2,000 unit) tablet 50 mcg PO DAILY supplement 05/14/22 diltiazem HCl 180 mg capsule,extended release 24 hr 180 mg PO DAILY heart rate 05/14/22 acyclovir 400 mg tablet 400 mg PO BID anti viral 10/14/22 insulin aspart U-100 34 unit subcut QACBREAK diabetes 10/14/22 insulin aspart U-100 100 unit/mL (3 mL) subcutaneous pen (Novolog FlexPen U-100 Insulin aspart) 50 unit subcut QACDINNER diabetes 10/14/22 insulin aspart U-100 100 unit/mL (3 mL) subcutaneous pen (Novolog FlexPen U-100 Insulin aspart) 58 unit subcut QACLUNCH diabetes 10/14/22 insulin detemir U-100 78 unit subcut TIDWMEAL diabetes 10/14/22 ondansetron 8 mg disintegrating tablet 8 mg PO Q8H PRN nausea and vomiting 10/14/22 albuterol sulfate 90 mcg/actuation aerosol inhaler (Ventolin HFA) 2 puff inhalation Q4H breathing #18 grams 12/07/22 insulin aspart U-100 100 unit/mL subcutaneous solution (Novolog U-100 Insulin aspart) 45 unit subcut QHS diabetes 12/17/22 handicap placard #1 ea 01/18/23 losartan 50 mg tablet 50 mg PO DAILY #90 tabs 01/18/23 pantoprazole 40 mg tablet,delayed release 40 mg PO BID #60 tabs 01/18/23 tamsulosin 0.4 mg capsule 0.4 mg PO DAILY 01/18/23 torsemide 10 mg tablet 10 mg PO QAM #30 tabs 01/18/23 fluticasone fur. 200 mcg-umeclid 62.5 mcg-vilant 25 mcg inhalat.powder (Trelegy Ellipta) 1 inh inhalation DAILY 02/01/23 ciprofloxacin HCl 500 mg tablet 500 mg PO BID #10 tabs 02/02/23 finasteride 5 mg tablet (Proscar) 5 mg PO DAILY #90 tabs 02/02/23
== END 2023-02-03 11:27 | disposition home or self-care (01) ==
LOC: SDC 12:56 → MS3 12:56
PROVIDERS: Family Medicine; Admitting Provider Urology; PCP Family Medicine; Referring Provider Urology; Visit Provider Urology
PROC: (CPT 52601; principal; 2023-02-02 11:05)
DX: I11.0 Hypertensive heart disease with heart failure (principal); J44.9 Chronic obstructive pulmonary disease, unspecified; I50.9 Heart failure, unspecified; I48.91 Unspecified atrial fibrillation; Z79.4 Long term (current) use of insulin; E11.9 Type 2 diabetes mellitus without complications; Z79.51 Long term (current) use of inhaled steroids; E78.2 Mixed hyperlipidemia; Z87.891 Personal history of nicotine dependence; R33.8 Other retention of urine; Z79.84 Long term (current) use of oral hypoglycemic drugs; I25.10 Atherosclerotic heart disease of native coronary artery without angina pectoris; N40.1 Benign prostatic hyperplasia with lower urinary tract symptoms; Z79.899 Other long term (current) drug therapy
CPT/HCPCS: 52601; 00914; 36415; 80048; 82962; 85025; 88305; 94640; 94668; 94762; 96361; 96365; 96366; 96375; 96376; 99221; J7030; J7120; G0378; J0744; J2405

== ENCOUNTER 2023-02-25 11:10 | Emergency (ER) | payer MEDICARE, OTHER, SELFPAY ==
[2023-02-25 11:11] VITALS: BP 188/84; PULSE 79; RESP 16; TEMP 36.6; O2SAT 95
--- NOTE | 2023-02-25 11:54 | CT_ITS ---
STUDY: CT ABDOMEN AND PELVIS WITHOUT CONTRAST REASON FOR EXAM: Male, 72 years old. Right-sided flank pain RADIATION DOSAGE (If Supplied By Facility): CTDIvol = ( 22.95 ) mGy, DLP = ( 1181.09 ) mGycm TECHNIQUE: Transaxial images were obtained from the dome of the diaphragm to the symphysis pubis without oral contrast, and without intravenous contrast. Sagittal and coronal images were reconstructed. Individualized dose optimization techniques were used for this CT. COMPARISON: None. FINDINGS: Stable 4.1 cm x 2.6 cm cystic nodule in the subcutaneous fat along the anterior lower chest wall. This is unchanged. Increased markings at the right lung base with bronchiectasis. Since prior examination, the right pleural effusion and right basilar consolidation has almost completely cleared. Minimal residual changes persist in the posterior medial segment of the right lower lobe. Coronary artery calcification. Normal liver. Normal gallbladder and extrahepatic biliary system. Normal spleen. Normal pancreas. Normal bilateral adrenal glands. Normal right kidney. Normal left kidney. No ureteral obstruction is seen. Normal visualized stomach. Normal small intestine. There is a 6.2 cm x 4.6 cm soft tissue mass in the region of the sigmoid colon. A neoplastic process should be ruled out. Scattered sigmoid diverticula. The appendix is visualized and appears normal. There is scattered atherosclerotic calcification of the abdominal aorta, without a demonstrated aneurysm. Normal inferior vena cava. Normal retroperitoneum. Normal urinary bladder. Mild enlargement of the prostate gland. Normal abdominal wall. There are diffuse degenerative changes of the visualized lumbar spine. CT/Abdomen/Pelvis without Cont IMPRESSION: 6.2 cm x 4.6 cm soft tissue mass in the region of the sigmoid colon. A neoplastic process should be ruled out. No evidence of ureteral obstruction. Mild enlargement of the prostate gland. Electronically Signed: Adán Espinosa MD at 13:30 EDT ,
--- NOTE | 2023-02-25 12:01 | EDS_ITS ---
HPI History of Present Illness Chief Complaint: Complaint Informant: patient Narrative Narrative: Patient was referred in here for positive urine culture with Pseudomonas only sensitive to IV antibiotics. This patient was having some pain in his back about 4 weeks ago. But he states now it is in a different spot. It is in his upper lumbar area. It is more on the right than the left. It does go down to the lower lumbar area. There is some motion component to it but no trauma or injury. He denies any significant urinary symptoms to me. He states when he urinates he gets a slight burning at the very end only. But he is urinating normal amounts. He is drinking more water as he was told to do. He does not have fevers or chills. No abdominal pain. He states he actually feels pretty well. This patient has history of multiple myeloma. He also had a TURP about 3 weeks ago. He states he has done well with that. He was placed on Bactrim afterwards. But he only took this for about 5 days because it was causing diarrhea. The diarrhea has since resolved. But the concern is that this patient does have some immune suppression with a resistant bacteria. But he is having minimal urinary symptoms. The question is is the back pain a stone py elonephritis or mechanical. He was sent in here for further evaluation. [facility] Medical History Abnormal electrocardiogram Alcohol use Anemia Atherosclerotic heart disease of jena coronary artery without angina pectoris Cancer Cardiology follow-up encounter Chest pain Chicken pox COPD (chronic obstructive pulmonary disease) CPAP (continuous positive airway pressure) dependence MESA (dyspnea on exertion) Erectile dysfunction Essential hypertension Former smoker High cholesterol History of atrial fibrillation History of CHF (congestive heart failure) History of echocardiogram History of edema History of Holter monitoring History of irregular heartbeat History of left heart catheterization (LHC) (~01/27/11) History of steroid therapy History of stress test Hx of multiple myeloma Insulin dependent diabetes mellitus Measles Mixed hyperlipidemia Multiple myeloma Murmur Obesity On home oxygen therapy CONCHA (obstructive sleep apnea) Palpitations Rash Shortness of breath on exertion Sleep apnea Smoldering multiple myeloma SOB (shortness of breath) Type 2 diabetes mellitus Wears glasses Wears hearing aid Home Medications atorvastatin 20 mg tablet (Lipitor) 20 mg PO QDAY cholesterol 08/19/17 [History Last Taken 02/01/23] calcium carbonate 600 mg-vitamin D3 5 mcg (200 unit) tablet (Calcium 600 with Vitamin D3) 1 tab PO QDAY supplement 08/19/17 [History Last Taken 06/17/20 10:00] magnesium 250 mg tablet 500 mg PO QDAY supplement 08/19/17 [History Last Taken 02/01/23] metformin 1,000 mg tablet (Glucophage) 1,000 mg PO BID diabetes 08/19/17 [History Last Taken 02/01/23] omega-3 fatty acids 1,000 mg capsule 1,000 mg PO QDAY supplement 08/19/17 [History Last Taken 01/25/23] levomefolate Ca 3 mg-B6 35 mg-meB12 2 mg-algal oil 90.314 mg capsule (Metanx (algal oil)) 1 cap PO BID 12/16/17 [History Last Taken 02/01/23] cholecalciferol (vitamin D3) 50 mcg (2,000 unit) tablet 50 mcg PO DAILY supplement 05/14/22 [History Last Taken Unknown] diltiazem HCl 180 mg capsule,extended release 24 hr 180 mg PO DAILY heart rate 05/14/22 [History Last Taken 02/02/23 07:45] acyclovir 400 mg tablet 400 mg PO BID anti viral 10/14/22 [History Last Taken 02/01/23] ondansetron 8 mg disintegrating tablet 8 mg PO Q8H PRN nausea and vomiting 10/14/22 [History Last Taken Unknown] albuterol sulfate 90 mcg/actuation aerosol inhaler (Ventolin HFA) 2 puff inhalation Q4H breathing #18 grams 12/07/22 [Rx Last Taken 02/01/23] handicap placard #1 ea 01/18/23 [Rx Last Taken Unknown] losartan 50 mg tablet 50 mg PO DAILY #90 tabs 01/18/23 [Rx Last Taken 02/01/23] torsemide 10 mg tablet 10 mg PO QAM #30 tabs 01/18/23 [Rx Last Taken 02/01/23] fluticasone fur. 200 mcg-umeclid 62.5 mcg-vilant 25 mcg inhalat.powder (Trelegy Ellipta) 1 inh inhalation DAILY 02/01/23 [History Last Taken 02/02/23] dexamethasone 4 mg tablet 8 mg PO .QTHURS 02/23/23 [History Last Taken Unknown] empagliflozin 10 mg tablet (Jardiance) 10 mg PO DAILY 02/23/23 [History Last Taken Unknown] insulin aspart U-100 100 unit/mL (3 mL) subcutaneous pen (Novolog FlexPen U-100 Insulin aspart) 46 unit subcut QACDINNER diabetes 02/23/23 [History Last Taken Unknown] insulin aspart U-100 100 unit/mL (3 mL) subcutaneous pen (Novolog FlexPen U-100 Insulin aspart) 52 unit subcut QACLUNCH diabetes 02/23/23 [History Last Taken Unknown] insulin aspart U-100 [Novolog FlexPen U-100 Insulin] 32 unit subcut QACBREAK diabetes 02/23/23 [History Last Taken Unknown] insulin detemir U-100 [Levemir FlexTouch U100 Insulin] 74 unit subcut TIDWMEAL diabetes 02/23/23 [History Last Taken Unknown] lenalidomide 15 mg capsule 15 mg PO DAILY 02/23/23 [History Last Taken Unknown] pantoprazole 40 mg tablet,delayed release 40 mg PO QAM #60 tabs 02/23/23 [Rx Last Taken Unknown] Allergy/AdvReac Type Severity Reaction Status Date / Time Penicillins Allergy Mild Rash Verified 02/25/23 11:21 Family History Father Myocardial infarction Mother Breast cancer Surgical History Bone spur removal History of cataract extraction Hx of bilateral cataract extraction Hx of esophagogastroduodenoscopy Status post recent transurethral resection of prostate Social History Smoking Status: Former smoker quit date: 04/25/02 pack-years: 31 alcohol intake: current alcohol intake frequency: holidays/special occasions only substance use type: does not use caffeine: Yes Type: coffee Number of servings: 5 ROS ROS ED Constitutional Constitutional ED: Denies chills, fever(s), subjective or sweats Eyes Eyes: Denies change in vision Cardiovascular Cardiovascular: Denies chest pain or palpitations Respiratory/Chest Respiratory/Chest: Denies cough or dyspnea Gastrointestinal Gastrointestinal: Denies abdominal pain, diarrhea, nausea or vomiting Genitourinary Genitourinary ED: Reports dysuria; Denies hematuria or urinary frequency Musculoskeletal Musculoskeletal: Reports back pain; Denies arthralgias, myalgias or neck pain Integumentary Denies rash Neurologic Neurologic: Denies headache(s) Endocrine Endocrinology: Denies polydipsia or polyuria Allergic/Immunologic Allergic/Immunologic ED: Denies urticaria EXAM Physical Exam Narrative Exam Narrative: CONSTITUTIONAL: Patient is nontoxic in appearance. The patient looks comfortable. He is very nontoxic in appearance. HEENT: No notable trauma. Mucous membranes moist. EYES: No conjunctival injection. CARDIOVASCULAR: Regular rate. Regular rhythm. No notable murmur. No JVD. RESPIRATORY: No respiratory distress. Breathing is unlabored. No wheezes. No rhonchi. No rales. No pain with a deep breath. GASTROINTESTINAL: His abdomen is obese but not distended. Bowel sounds are normal. No tenderness. No guarding. No rebound. No palpable mass. No bruit. Overall abdomen is quite benign. GENITOURINARY: No tenderness over the bladder. He does have some tenderness along the right paraspinal muscles and some very mild CVA tenderness. But this is hard to separate if this is truly CVA or just muscular tenderness. I do not see any skin changes there. I still feel no mass. He really does not have symptoms on the left on exam. MUSCULOSKELETAL: Atraumatic. NEUROLOGICAL: Patient is alert and appropriate. No focal deficit noted. SKIN: No noted rashes. No diaphoresis. PSYCHIATRIC: Patient is calm. Mood is appropriate. Const Vital Signs: 02/25/23 11:11 Temperature 97.8 F Temperature Source Temporal Pulse Rate 79 Respiratory Rate 16 Blood Pressure 188/84 H Blood Pressure Mean 118 Pulse Ox 95 Oxygen Delivery Method Room Air MDM MDM MDM Narrative Medical decision making narrative: Patient CBC shows mild elevation white count of 13.3. Mild anemia. Platelets were asked dated adequate. Patient's glucose is slightly up at 249 but remainder of electrolytes are overall normal. Patient's urine does show 25-50 white cells and positive leukocyte Estrace. 1+ bacteria. My independent interpretation of the patient's CT of the abdomen shows no acute bony lesion. Kidneys look normal. There is a mass noted in the sigmoid colon that was also noted by radiology read. I talked with the patient about this. He states he has had some soreness down in that area off and on for a while. He was set to have a colonoscopy last year or so. But this was before he was on oxygen. He went to have the test and his oxygen level was lower than 95% so they could not do the colonoscopy and it just has not occurred again. I I was able to discuss the case also with Dr. Booker. He will make sure the mass in the colon is followed up. I was trying to write for outpatient antibiotics for this patient. We then called the infusion center. They states that an ER physician cannot do this. It has to go through outpatient physician. We called back Dr. Haynes and he will help set up outpatient therapy but will probably not be until Tuesday because we are over the weekend. We will give her ertapenem here as its once a day. I am recommending that the patient comes back each day to get IV therapy here. He feels well and really does not want to come in the hospital. I think this is the best solution to a challenging problem. Lab Data Attestation: I reviewed the patient's lab results. Labs: Laboratory Results - last 24 hr 02/25/23 02/25/23 12:10 12:17 WBC 13.3 H RBC 3.90 L Hgb 10.3 L Hct 34.4 L MCV 88.2 MCH 26.4 L MCHC 29.9 L RDW Std Deviation 52.6 H RDW Coeff of Kavya 16.4 H Plt Count Immature Gran % (Auto) 1.300 H Neut % (Auto) 81.0 H Lymph % (Auto) 10.2 L [place] % (Auto) 7.2 Eos % (Auto) 0.1 Baso % (Auto) 0.2 Absolute Neuts (auto) 10.7 H Absolute Lymphs (auto) 1.35 Nucleated RBC % 0 Differential Comment SCANNED Platelet Estimate ADEQUATE Sodium 139 Potassium 4.2 Chloride 105 Carbon Dioxide 28.0 Anion Gap 6 BUN 21 H Creatinine 0.85 Est GFR (MDRD) Af Amer 115 Est GFR (MDRD) Non-Af 95 BUN/Creatinine Ratio 24.8 H Glucose 249 H Calcium 9.3 Urine Color Yellow Urine Clarity Clear Urine pH 6.0 Ur Specific [place] 1.010 Urine Protein 30 H Urine Glucose (UA) 1000 H Urine Ketones Negative Urine Occult Blood 150 H Urine Nitrite Negative Urine Bilirubin Negative Urine Urobilinogen Normal Ur Leukocyte Esterase 500 H Urine RBC 0 SEEN Urine WBC 25-50 SEEN Ur Squamous Epith Cells 0 SEEN Urine Bacteria 1+ Urine Mucus 0 SEEN Radiography Diagnostic Testing: Clinical Impression(s) from Imaging Studies Abdomen/Pelvis CT 02/25/23 11:54 IMPRESSION: 6.2 cm x 4.6 cm soft tissue mass in the region of the sigmoid colon. A neoplastic process should be ruled out. No evidence of ureteral obstruction. Mild enlargement of the prostate gland. Electronically Signed: Adán Espinosa MD at 13:30 EDT , Discharge Plan Triage Chief Complaint: Complaint ED Provider: Dru Mayfield Dx/Rx/DC Orders Clinical Impression: Colonic mass, Agent resistant to multiple antibiotics, Acute UTI Instructions: Urinary Tract Infections in Men Prescriptions: No Action calcium carbonate-vitamin D3 [Calcium 600 with Vitamin D3] 600 mg(1,500mg) - 200 unit tablet 1 tab PO QDAY magnesium 250 mg tablet 500 mg PO QDAY omega-3 fatty acids 1,000 mg capsule 1,000 mg PO QDAY atorvastatin [Lipitor] 20 mg tablet 20 mg PO QDAY metformin [Glucophage] 1,000 mg tablet 1,000 mg PO BID insulin detemir U-100 [Levemir FlexTouch U100 Insulin] 74 unit SC TIDWMEAL insulin aspart U-100 [Novolog FlexPen U-100 Insulin] 32 unit SC QACBREAK [id number]-algal oil [Metanx (algal oil)] 3 mg-35 mg-2 mg -90.314 mg capsule 1 cap PO BID diltiazem HCl 180 mg capsule,extended release 24hr 180 mg PO DAILY cholecalciferol (vitamin D3) 50 mcg (2,000 unit) tablet 50 mcg PO DAILY insulin aspart U-100 [Novolog FlexPen U-100 Insulin] 100 unit/mL (3 mL) insulin pen 52 unit subcut QACLUNCH insulin aspart U-100 [Novolog FlexPen U-100 Insulin] 100 unit/mL (3 mL) insulin pen 46 unit subcut QACDINNER acyclovir 400 mg tablet 400 mg PO BID ondansetron 8 mg tablet,disintegrating 8 mg PO Q8H PRN (Reason: nausea and vomiting) losartan 50 mg tablet 50 mg PO DAILY Qty: 90 2RF torsemide 10 mg tablet 10 mg PO QAM Qty: 30 2RF (DME) handicap placard See Rx Instructions .Route .MEDSUPPLY Qty: 1 0RF Rx Instructions: Duration for 5 years dexamethasone 4 mg tablet 8 mg PO .QTHURS lenalidomide 15 mg capsule 15 mg PO DAILY Rx Instructions: swallow whole with glass of water; do not open, crush, chew , break, or dissolve TAKE DAILY FOR 21 DAYS, THEN OFF 7 DAYS; REPEAT Jardiance 10 mg tablet 10 mg PO DAILY pantoprazole 40 mg tablet,delayed release (DR/EC) 40 mg PO QAM Qty: 60 2RF Trelegy Ellipta 200-62.5-25 mcg blister with device 1 inh inhalation DAILY albuterol sulfate [Ventolin HFA] 90 mcg/actuation HFA aerosol inhaler 2 puff INHALATION Q4H Qty: 18 11RF Rx Instructions: administer with spacer Primary Care Provider: Krishna Lane Referrals: Krishna Lane DO [Primary Care Provider] - Arvind Haynes MD [Med Staff - Active Staff] - 2 Days (Call first thing Tuesday morning to arrange further IV therapy.) Leonel Booker DO [Med Staff - Active Staff] - As soon as possible Activity Restrictions/Additional Instructions: Read turn to ED Tuesday and Tuesday at approximately this time for repeat doses of ertapenem antibiotic Disposition Disposition: Home, Self Care
[2023-02-25 12:38] LABS: Mucous, Urine 0 SEEN /hpf (<or=2+); Red Blood Cells-Urine 0 SEEN /hpf (0-5); Squamous Epithelial Cells - UA 0 SEEN /hpf (0-5)
[2023-02-25 12:49] LABS: Absolute Lymphocyte Count 1.35 X10^3/uL (0.83-4.51); Absolute Neutrophil Count 10.7 X10^3/uL (2.0-7.7); Basophil# 0.02 X10^3/uL; Basophil% 0.2 % (0-1); Eosinophil# 0.01 X10^3/uL; Eosinophils% 0.1 % (0-5); Hematocrit 34.4 % (40-54); Hemoglobin 10.3 g/dL (13.0-16.5); Lymphocyte # 1.35 X10^3/ul (0.83-4.51); Lymphocyte % 10.2 % (19-41); Mean Corp Hgb Conc 29.9 g/dL (32-36); Mean Corpuscular Hgb 26.4 pg (27.0-32.0); Mean Corpuscular Volume 88.2 fL (80-94); Monocyte# 0.96 X10^3/uL; Monocyte% 7.2 % (0-10); NRBC Flagged by Analyzer 0 % (0-5); Neutrophil # 10.74 X10^3/uL (2.7-7.7); POSITIVE COUNT YES; RBC Distribution Width CV 16.4 % (11.6-14.6); RBC Distribution Width SD 52.6 fl (35.1-43.9); White Blood Count 13.3 K/mm3 (4.4-11.0)
[2023-02-25 12:57] LABS: Anion Gap 6 (5-15); BUN 21 mg/dL (7-18); BUN/Creat Ratio 24.8 RATIO (10-20); Calcium,Total 9.3 mg/dL (8.5-10.1); Chloride 105 mmol/L (98-107); Creatinine, Serum 0.85 mg/dL (0.70-1.30); EST Glomerular Filtration Rate 95 mL/min (>60); Est Glom Filt Rate - Afr Amer 115 mL/min (>60); Glucose 249 mg/dL (74-106); Potassium 4.2 mmol/L (3.5-5.1); Sodium Level 139 mmol/L (136-145)
[2023-02-25 13:09] LABS: Color, Urine Yellow (Yellow); Glucose, Dipstick 1000 mg/dl (Normal); Ketone-Dipstick Negative (Negative); Leukocyte Esterase-Dipstick 500 /ul (Negative); Nitrite-Dipstick Negative (Negative); Occult Blood-Urine 150 /ul (Negative); Protein-Dipstick 30 mg/dl (Negative); Urine Bilirubin Dipstick Negative (Negative); Urine Clarity Clear (Clear); Urine Urobilinogen Normal (Normal)
[2023-02-25 13:22] LABS: Differential Indicated SCAN CRITERIA MET
[2023-02-25 13:23] LABS: Differential Comment SCANNED; Platelet Estimate ADEQUATE (ADEQ)
[2023-02-25 13:27] LABS: Bacteria 1+ /hpf (None Seen); White Blood Cells 25-50 SEEN /hpf (0-5)
[2023-02-25 15:10] VITALS: BP 144/73; PULSE 73; RESP 14; O2SAT 97
[2023-02-25] MEDS: FOSFOMYCIN TROMETHAMINE 3 GM PACKET PO (16:42)
== END 2023-02-25 16:54 | disposition home or self-care (01) ==
PROVIDERS: Emergency Provider Emergency Medicine; PCP Family Medicine; Visit Provider Emergency Medicine
DX: K63.9 Disease of intestine, unspecified (principal); I50.9 Heart failure, unspecified; E11.9 Type 2 diabetes mellitus without complications; N39.0 Urinary tract infection, site not specified; I25.10 Atherosclerotic heart disease of native coronary artery without angina pectoris; G47.33 Obstructive sleep apnea (adult) (pediatric); Z99.81 Dependence on supplemental oxygen; Z87.891 Personal history of nicotine dependence; Z16.24 Resistance to multiple antibiotics
CPT/HCPCS: 74176; 80048; 81001; 85025; 87077; 87086; 87088; 87186; 99282

== ENCOUNTER → 2023-03-08 | Outpatient (CLI) | payer MEDICARE, OTHER, SELFPAY | END | disposition home or self-care (01) | LOC: LABSPEC 12:43 | PROVIDERS: PCP Family Medicine; Referring Provider Internal Medicine Hematology & Oncology; Visit Provider Internal Medicine Hematology & Oncology | DX: C90.00 Multiple myeloma not having achieved remission (principal) | CPT/HCPCS: 86850; 86900; 86901 ==

== ENCOUNTER → 2023-03-18 | Outpatient (CLI) | payer MEDICARE, OTHER, SELFPAY ==
[2023-03-18 15:27] LABS: Microalbumin,Random Urine 37.3 mg/L (NO RANGE EST.); Microalbumin:Creatinine Ratio 173.5 mg/g CRE (<30 mg/g CRE)
[2023-03-18 15:30] LABS: ALB/GLOB Ratio 0.7 RATIO (0.9-2.4); AST(SGOT) 12 U/L (15-37); Alanine Aminotransfer ALT/SGPT 21 U/L (16-61); Albumin, Serum 2.9 g/dL (3.2-5.0); Alkaline Phosphatase 106 U/L (45-117); Anion Gap 7 (5-15); BUN 15 mg/dL (7-18); BUN/Creat Ratio 18.6 RATIO (10-20); Calcium,Total 8.6 mg/dL (8.5-10.1); Chloride 101 mmol/L (98-107); Creatinine, Serum 0.81 mg/dL (0.70-1.30); EST Glomerular Filtration Rate 100 mL/min (>60); Est Glom Filt Rate - Afr Amer 121 mL/min (>60); Globulin 3.9 g/dL (2.2-4.2); Glucose 128 mg/dL (74-106); Protein, Total 6.8 g/dL (6.4-8.2); Sodium Level 139 mmol/L (136-145)
[2023-03-18 15:32] LABS: Hemoglobin A1c 7.4 % (3.8-5.6)
== END | disposition home or self-care (01) ==
LOC: LAB 14:18
PROVIDERS: PCP Family Medicine; Visit Provider Internal Medicine Endocrinology, Diabetes & Metabolism
DX: E11.65 Type 2 diabetes mellitus with hyperglycemia (principal)
CPT/HCPCS: 36415; 80053; 82043; 82570; 83036

== ENCOUNTER → 2023-03-21 | Outpatient (CLI) | payer MEDICARE, OTHER, SELFPAY ==
[2023-03-21 13:54] LABS: Anion Gap 4 (5-15); BUN 12 mg/dL (7-18); BUN/Creat Ratio 13.3 RATIO (10-20); Calcium,Total 8.6 mg/dL (8.5-10.1); Chloride 100 mmol/L (98-107); EST Glomerular Filtration Rate 89 mL/min (>60); Est Glom Filt Rate - Afr Amer 107 mL/min (>60); Glucose 179 mg/dL (74-106); Potassium 3.2 mmol/L (3.5-5.1); Sodium Level 136 mmol/L (136-145)
[2023-03-24 15:07] LABS: PROEL- Alpha-1 Globulin 0.4 g/dL (0.0-0.4); PROEL- Gamma Globulin 0.7 g/dL (0.4-1.8); PROEL- Globulin, Total 3.1 g/dL (2.2-3.9); PROEL- TOTAL PROTEIN 6.1 g/dL (6.0-8.5); PROEL-M-Spike Comment: g/dL (Not Observed); PROELU- Albumin, Urine 27.6 % (.); PROELU- Alpha-1-Globulin,Ur 11.8 % (.); PROELU- Alpha-2-Globulin,Ur 19.3 % (.); PROELU- Beta Globulin, Ur 28.2 % (.); PROELU- Gamma Globulin, Ur 13.1 % (.); Total Protein, Ur 11.1 mg/dL (Not Estab.)
== END | disposition home or self-care (01) ==
PROVIDERS: PCP Family Medicine; Referring Provider Internal Medicine Endocrinology, Diabetes & Metabolism; Visit Provider Internal Medicine Endocrinology, Diabetes & Metabolism
DX: E11.65 Type 2 diabetes mellitus with hyperglycemia (principal)
CPT/HCPCS: 36415; 80048; 84165; 84166

== ENCOUNTER → 2023-06-06 | Outpatient (CLI) | payer MEDICARE, OTHER, SELFPAY ==
[2023-06-06 14:54] LABS: Anion Gap 6 (5-15); BUN 12 mg/dL (7-18); BUN/Creat Ratio 15.5 RATIO (10-20); Calcium,Total 9.7 mg/dL (8.5-10.1); Chloride 105 mmol/L (98-107); Creatinine, Serum 0.78 mg/dL (0.70-1.30); EST Glomerular Filtration Rate 105 mL/min (>60); Est Glom Filt Rate - Afr Amer 127 mL/min (>60); Glucose 77 mg/dL (74-106); PSA,Total- Diagnostic 3.27 ng/mL (0.0-4.0); Sodium Level 140 mmol/L (136-145)
== END | disposition home or self-care (01) ==
LOC: LAB 13:31
PROVIDERS: Nurse Practitioner; PCP Family Medicine; Referring Provider Nurse Practitioner; Visit Provider Nurse Practitioner
DX: R97.20 Elevated prostate specific antigen [PSA] (principal)
CPT/HCPCS: 36415; 80048; 84153

== ENCOUNTER → 2023-06-22 | Outpatient (CLI) | payer MEDICARE, OTHER, SELFPAY ==
[2023-06-22 12:45] LABS: Microalbumin,Random Urine 40.3 mg/L (NO RANGE EST.); Microalbumin:Creatinine Ratio 42.3 mg/g CRE (<30 mg/g CRE)
[2023-06-22 13:09] LABS: ALB/GLOB Ratio 1.1 RATIO (0.9-2.4); AST(SGOT) 14 U/L (15-37); Alanine Aminotransfer ALT/SGPT 20 U/L (16-61); Albumin, Serum 3.5 g/dL (3.2-5.0); Alkaline Phosphatase 145 U/L (45-117); Anion Gap 9 (5-15); BUN 18 mg/dL (7-18); Calcium,Total 8.9 mg/dL (8.5-10.1); Chloride 102 mmol/L (98-107); Cholesterol 144 mg/dL (200); EST Glomerular Filtration Rate 88 mL/min (>60); Est Glom Filt Rate - Afr Amer 107 mL/min (>60); Globulin 3.3 g/dL (2.2-4.2); Glucose 137 mg/dL (74-106); High Density Lipoprotein 48 mg/dL; Potassium 4.3 mmol/L (3.5-5.1); Protein, Total 6.8 g/dL (6.4-8.2); Sodium Level 137 mmol/L (136-145); Thyroid Stim Hormone (TSH) 1.28 uIU/mL (0.358-3.74); Triglycerides 85 mg/dL; Very Low Density Lipoprotein 17 mg/dL (5-40)
[2023-06-22 13:12] LABS: Hemoglobin A1c 6.4 % (3.8-5.6)
== END | disposition home or self-care (01) ==
LOC: BIMLAB 11:11
PROVIDERS: PCP Family Medicine; Referring Provider Internal Medicine Endocrinology, Diabetes & Metabolism; Visit Provider Internal Medicine Endocrinology, Diabetes & Metabolism
DX: E11.65 Type 2 diabetes mellitus with hyperglycemia (principal); E78.2 Mixed hyperlipidemia; E04.2 Nontoxic multinodular goiter
CPT/HCPCS: 36415; 80053; 80061; 82043; 82570; 83036; 84443

== ENCOUNTER → 2023-09-27 | Outpatient (CLI) | payer MEDICARE, OTHER, SELFPAY ==
[2023-09-27 16:18] LABS: ALB/GLOB Ratio 0.9 RATIO (0.9-2.4); AST(SGOT) 17 U/L (15-37); Alanine Aminotransfer ALT/SGPT 23 U/L (16-61); Albumin, Serum 3.1 g/dL (3.2-5.0); Alkaline Phosphatase 116 U/L (45-117); Anion Gap 8 (5-15); BUN 18 mg/dL (7-18); BUN/Creat Ratio 22.4 RATIO (10-20); Calcium,Total 9.2 mg/dL (8.5-10.1); Chloride 104 mmol/L (98-107); EST Glomerular Filtration Rate 101 mL/min (>60); Est Glom Filt Rate - Afr Amer 122 mL/min (>60); Globulin 3.6 g/dL (2.2-4.2); Glucose 167 mg/dL (74-106); Potassium 4.6 mmol/L (3.5-5.1); Protein, Total 6.7 g/dL (6.4-8.2); Sodium Level 138 mmol/L (136-145)
[2023-09-27 17:06] LABS: Vitamin D,25 Hydroxy 33.7 ng/mL
[2023-09-27 17:18] LABS: Hemoglobin A1c 7.9 % (3.8-5.6)
== END | disposition home or self-care (01) ==
LOC: BIMLAB 11:30
PROVIDERS: PCP Family Medicine; Referring Provider Family Medicine; Visit Provider Family Medicine
DX: E11.65 Type 2 diabetes mellitus with hyperglycemia (principal); E55.9 Vitamin D deficiency, unspecified
CPT/HCPCS: 36415; 80053; 82306; 83036

== ENCOUNTER 2023-10-13 14:00 | Outpatient (RCR) | payer MEDICARE, OTHER, SELFPAY ==
--- NOTE | 2023-09-08 11:53 | HP.PTEVAL_ITS ---
Patient's Visit Information Visit Information Visit Information: CYN MARTINEZ Jr. is a 73 year old M referred to Physical Therapy by Dr. Krishna Lane DO with a diagnosis of Chronic low back pain, M54.50. Date of Evaluation: 09/08/23 Physical Therapist: Janes Britton Visit Plan Frequency: 2x /Week Duration: 6 Weeks Plan: Continue with improving LE flexibility especially hamstring flexibility, core, and back strengthening. Educate on proper lifting mechanics. Use manual therapy and modalities as needed for pain control. Subjective Subjective: Pt. is a 73 y.o. male who has been having back pain for several of years but has had increased in the last month after he fell when he tripped on the edge of the door and landed on his right side. He has not had any recent imaging. Pt. denies any radicular symptoms in his legs. He will occasionally have some numbness in his feet due to diabetic neuropathy. Pt. denies any unexplained weight loss. He has difficulty with going from sit to stand, walking, lifting things, pushing/pulling, bowling, housework, and yard work. Pt. is retired and worked at [employer] previously. His goal with physical therapy is to decrease his back pain. He has had previous physical therapy for his neck and ankle. Pt. denies any back pain currently, at worst 10/10 and describes the pain as pulling and tight. His PMH includes diabetes, multiple myeloma, colon surgery, TURP procedure, and left foot surgery. Pt. lives with his in a two story home. His hobbies include fishing and bowling. Objective Objective: Observation- Good posture in standing Palpation- No tenderness to palpation Lumbar AROM flexion- min restriction and no pain, extension- mod restriction and mild low back pain; SB to left- WNL and no pain; SB to right- WNL and no pain; lumbar rotation- WNL and no pain Hip PROM- WNL bilaterally Mild tight hamstrings bilaterally Core strength- 4/5 Left LE strength grossly 5/5 for all motions Right LE strength grossly 5/5 for all motions Special tests- Straight leg raise [-], Well's leg raise [-] Gait- Pt. ambulates with no gait deviations. Balance/Special Test Scores Oswestry Low Back Score: 8 Goals Goal 1:: Pt. will be independent home exercise program. Goal Time Frame: 4-6 Weeks Goal 2:: Pt. will have no back pain with sit to stand transition. Goal Time Frame: 4-6 Weeks Goal 3:: Pt. will be able to lift at least 30# with proper body mechanics and no back pain. Goal Time Frame: 4-6 Weeks Goal 4:: Pt. will be able to walk at least 15 minutes with back pain < 3/10. Goal Time Frame: 4-6 Weeks Goal 5:: Pt. will rate back pain at worst at 3/10 with ADL's. Goal Time Frame: 4-6 Weeks Goal 6:: Pt. will improve modified Oswestry disability index < 10% disability in order to improve ADL's. Goal Time Frame: 4-6 Weeks Rehabilitation Potential Physical Therapy Diagnosis: Core/back weakness, difficulty walking, and pain Rehabilitation Potential: Good Anticipated Interventions Patient/Client Instruction: Educate patient on: Condition, Plan of Care and Benefits of Fitness Program For the Purpose of:: To decrease pain, To improve ability to perform ADL's, To improve performance and independence with ADL's, To increase flexibility/ROM and To improve tolerance to ADL's Therapeutic Exercise to Include: Strength training, Body mechanics, Flexibilty training, Active ROM, Dynamic Lumbar Stabilization and Chuy Exercises Comment: Continue to work on improving LE flexibility especially hamstring flexibility, core, and back strength. Educate on proper lifting mechanics. For the Purpose of:: To decrease pain, To improve ability to perform ADL's, To improve performance and independence with ADL's, To increase flexibility/ROM, To assume or resume ADL's and To improve tolerance to ADL's Functional Training to Include: ADL Training and Functional home training For the Purpose of:: To decrease pain, To improve ability to perform ADL's, To improve performance and independence with ADL's, To increase flexibility/ROM, To assume or resume ADL's and To improve tolerance to ADL's Manual Therapy Techniques to Include: Mobilization and Soft tissue mobilization For the Purpose of:: To decrease pain, To decrease swelling/inflammation, To increase ROM, To improve ability to perform ADL's, To improve performance and independence with ADL's, To increase flexibility/ROM and To improve tolerance to ADL's TENS: Yes IF ES: Yes Cryotherapy (ice pack, ice massage): Yes Thermo therapy (hot pack): Yes For the Purpose of:: To decrease pain, To increase ROM, To improve ability to perform ADL's, To improve performance and independence with ADL's, To increase flexibility/ROM, To assume or resume ADL's and To improve tolerance to ADL's Text: Thank you for the opportunity to evaluate your patient. For Medicare and Medicare HMO plans, please review the plan of care and approve it. It will need to be FAXED BACK to us at [phone] for Medicare purposes. For Medicare only, by signing this I certify the plan of care. Please let me know if there are questions or concerns regarding this plan of care. Physician Signature: Date:
--- NOTE | 2023-10-13 16:19 | HP.PTDCSUM_ITS ---
Discharge Summary D/C summary: It has been my pleasure to treat CYN MARTINEZ Jr. referred by Dr. Krishna Lane DO, with the diagnosis of Chronic low back pain, M54.50 for a total of 11 visit(s). Discharge Date: Please see the following information for a summary of their discharge status. Subjective Subjective: Patient reports that he saw his PCP yesterday who thinks that he should go see Dr. Rhodes. He still has the pain that catches him when he rolls over. He does not feel that the pain has decreased in intensity. Pain Bilateral Back: Pain Intensity (Out of 10): 7 Overall Improvement % Improvement: 5 Objective Objective/Function: No significant changes since IE- appropriate to follow PCP p long to see debt collection specialist. Goals Goal 1:: Pt. will be independent home exercise program. Goal Progress: Goal Met Goal 2:: Pt. will have no back pain with sit to stand transition. Goal Progress: Not Progressing Goal 3:: Pt. will be able to lift at least 30# with proper body mechanics and no back pain. Goal Progress: Not Progressing Goal 4:: Pt. will be able to walk at least 15 minutes with back pain < 3/10. Goal Progress: Not Progressing Goal 5:: Pt. will rate back pain at worst at 3/10 with ADL's. Goal Progress: Not Progressing Goal 6:: Pt. will improve modified Oswestry disability index < 10% disability in order to improve ADL's. Plan Plan: Discharge to follow up with debt collection specialist D/C Information d/c sentence: If there are questions or concerns regarding this patient's physical therapy, please feel free to call me at [phone]. Thank you for the referral of this patient. Sincerely, Olga Hendrix, DPT Balance/Gait/Functional tests Balance/Special Test Scores Oswestry Low Back Score: 27 Improvement % Improvement: 5
== END 2023-10-13 19:00 | disposition home or self-care (01) ==
LOC: PT 14:00
PROVIDERS: PCP Family Medicine; Referring Provider Family Medicine; Visit Provider Family Medicine
DX: M54.50 Low back pain, unspecified (principal); G89.29 Other chronic pain
CPT/HCPCS: 97110; 97161

== ENCOUNTER → 2023-10-13 | Outpatient (CLI) | payer MEDICARE, OTHER, SELFPAY | END | disposition home or self-care (01) | LOC: BIMLAB 07:45 | PROVIDERS: PCP Family Medicine; Referring Provider Family Medicine; Visit Provider Family Medicine | DX: R30.0 Dysuria (principal) | CPT/HCPCS: 87077; 87086; 87088; 87186 ==

== ENCOUNTER → 2023-11-30 | Outpatient (CLI) | payer MEDICARE, OTHER, SELFPAY ==
[2023-11-30 12:54] LABS: AST(SGOT) 13 U/L (15-37); Alanine Aminotransfer ALT/SGPT 23 U/L (16-61); Albumin, Serum 3.2 g/dL (3.2-5.0); Alkaline Phosphatase 121 U/L (45-117); Anion Gap 5 (5-15); BUN 18 mg/dL (7-18); BUN/Creat Ratio 22.4 RATIO (10-20); Calcium,Total 8.8 mg/dL (8.5-10.1); Chloride 108 mmol/L (98-107); Cholesterol 127 mg/dL (200); EST Glomerular Filtration Rate 101 mL/min (>60); Est Glom Filt Rate - Afr Amer 122 mL/min (>60); Globulin 3.1 g/dL (2.2-4.2); Glucose 106 mg/dL (74-106); High Density Lipoprotein 46 mg/dL; Potassium 4.1 mmol/L (3.5-5.1); Protein, Total 6.3 g/dL (6.4-8.2); Sodium Level 141 mmol/L (136-145); Triglycerides 46 mg/dL; Very Low Density Lipoprotein 9 mg/dL (5-40)
[2023-11-30 13:00] LABS: Microalbumin,Random Urine 21.8 mg/L (NO RANGE EST.); Microalbumin:Creatinine Ratio 26.2 mg/g CRE (<30 mg/g CRE)
[2023-11-30 13:25] LABS: Hemoglobin A1c 6.6 % (3.8-5.6)
== END | disposition home or self-care (01) ==
LOC: BIMLAB 10:12
PROVIDERS: PCP Family Medicine; Referring Provider Internal Medicine Endocrinology, Diabetes & Metabolism; Visit Provider Internal Medicine Endocrinology, Diabetes & Metabolism
DX: E11.65 Type 2 diabetes mellitus with hyperglycemia (principal); E78.2 Mixed hyperlipidemia
CPT/HCPCS: 36415; 80053; 80061; 82043; 82570; 83036

== ENCOUNTER → 2024-02-02 | Outpatient (CLI) | payer MEDICARE, OTHER, SELFPAY ==
[2024-02-02 12:49] LABS: Microalbumin:Creatinine Ratio 68.8 mg/g CRE (<30 mg/g CRE)
[2024-02-02 12:54] LABS: ALB/GLOB Ratio 1.1 RATIO (0.9-2.4); AST(SGOT) 16 U/L (15-37); Alanine Aminotransfer ALT/SGPT 28 U/L (16-61); Albumin, Serum 3.3 g/dL (3.2-5.0); Alkaline Phosphatase 120 U/L (45-117); Anion Gap 3 (5-15); BUN 16 mg/dL (7-18); BUN/Creat Ratio 23.3 RATIO (10-20); Calcium,Total 8.9 mg/dL (8.5-10.1); Chloride 105 mmol/L (98-107); Cholesterol 123 mg/dL (200); Creatinine, Serum 0.69 mg/dL (0.70-1.30); EST Glomerular Filtration Rate 120 mL/min (>60); Est Glom Filt Rate - Afr Amer 146 mL/min (>60); Globulin 3.1 g/dL (2.2-4.2); Glucose 135 mg/dL (74-106); High Density Lipoprotein 46 mg/dL; Potassium 4.1 mmol/L (3.5-5.1); Protein, Total 6.4 g/dL (6.4-8.2); Sodium Level 138 mmol/L (136-145); Triglycerides 69 mg/dL; Very Low Density Lipoprotein 14 mg/dL (5-40)
[2024-02-02 13:38] LABS: Hemoglobin A1c 6.9 % (3.8-5.6)
== END | disposition home or self-care (01) ==
LOC: BIMLAB 09:17
PROVIDERS: PCP Family Medicine; Referring Provider Internal Medicine Endocrinology, Diabetes & Metabolism; Visit Provider Internal Medicine Endocrinology, Diabetes & Metabolism
DX: E11.65 Type 2 diabetes mellitus with hyperglycemia (principal); E78.2 Mixed hyperlipidemia
CPT/HCPCS: 36415; 80053; 80061; 82043; 82570; 83036

== ENCOUNTER → 2024-05-01 | Outpatient (CLI) | payer MEDICARE, OTHER, SELFPAY ==
[2024-05-01 12:25] LABS: Vitamin B12 615 pg/mL (211-911)
[2024-05-01 12:32] LABS: AST(SGOT) 8 U/L (15-37); Alanine Aminotransfer ALT/SGPT 20 U/L (16-61); Albumin, Serum 3.3 g/dL (3.2-5.0); Alkaline Phosphatase 121 U/L (45-117); Anion Gap 3 (5-15); BUN 18 mg/dL (7-18); BUN/Creat Ratio 23.2 RATIO (10-20); Calcium,Total 9.3 mg/dL (8.5-10.1); Chloride 108 mmol/L (98-107); Creatinine, Serum 0.78 mg/dL (0.70-1.30); EST Glomerular Filtration Rate 105 mL/min (>60); Est Glom Filt Rate - Afr Amer 127 mL/min (>60); Globulin 3.2 g/dL (2.2-4.2); Glucose 78 mg/dL (74-106); Potassium 4.1 mmol/L (3.5-5.1); Protein, Total 6.5 g/dL (6.4-8.2); Sodium Level 141 mmol/L (136-145)
[2024-05-01 12:34] LABS: Hemoglobin A1c 7.2 % (3.8-5.6)
== END | disposition home or self-care (01) ==
PROVIDERS: PCP Family Medicine; Referring Provider Physician Assistant; Visit Provider Physician Assistant
DX: E11.21 Type 2 diabetes mellitus with diabetic nephropathy (principal); E04.9 Nontoxic goiter, unspecified; D51.3 Other dietary vitamin B12 deficiency anemia
CPT/HCPCS: 36415; 80053; 82607; 83036; 84443

== ENCOUNTER 2024-05-17 13:06 | Inpatient (IN) | payer MEDICARE, OTHER, SELFPAY ==
[2024-05-17] VITALS (12 sets, daily range): BP systolic 124–169; BP diastolic 51–88; PULSE 65–81; RESP 14–24; TEMP 36.4–37.1; O2SAT 88–98; BMI 45.8
--- NOTE | 2024-05-17 13:20 | EKG12_ITS ---
Test Reason : SOB Blood Pressure : */* mmHG Vent. Rate : 69 BPM Atrial Rate : * BPM P-R Int : * ms QRS Dur : 114 ms QT Int : 416 ms P-R-T Axes : * 6 167 degrees QTcB Int : 445 ms Atrial fibrillation with premature ventricular or aberrantly conducted complexes Septal infarct (cited on or before 02-Nov-2022) ST & T wave abnormality, consider lateral ischemia Abnormal ECG Confirmed by KETTY BROWN, ELIZABETH ([id number]), research editor RONNY HENDERSON ([id number]) on 05/22/2024 7:14:31 AM Referred By: Brian Sanchez Confirmed By: ELIZABETH HDEZ MD
--- NOTE | 2024-05-17 13:30 | RAD_ITS ---
STUDY: X-RAY CHEST REASON FOR EXAM: Male, 74 years old. Shortness of breath. TECHNIQUE: Single AP portable view of the chest. COMPARISON: None. FINDINGS: EKG electrodes are seen. Breast congestion and CHF. Blunting of the left costophrenic angle with atelectasis and/or infiltrate at the left lung base. There is moderate cardiac enlargement. Normal mediastinum and mikhail. Normal visualized pulmonary arteries. Normal visualized aortic arch and descending thoracic aorta. Normal visualized thoracic spine. Normal visualized ribs, clavicles, and shoulders. There is no demonstrated abnormality of the visualized soft tissue structures of the upper abdomen. RAD/Chest 1 View (Portable) IMPRESSION: Cardiomegaly. CHF with blunting of the left costophrenic angle and left basilar atelectasis and/or infiltrate. Electronically Signed: Adán Espinosa MD at 13:48 EST ,
[2024-05-17 13:47] LABS: Absolute Neutrophil Count 10.5 X10^3/uL (2.0-7.7); Basophil# 0.02 X10^3/uL; Basophil% 0.2 % (0-1); Eosinophil# 0.11 X10^3/uL; Eosinophils% 0.8 % (0-5); Hemoglobin 11.2 g/dL (13.0-16.5); Lymphocyte % 6.8 % (19-41); Mean Corp Hgb Conc 30.3 g/dL (32-36); Mean Corpuscular Hgb 23.8 pg (27.0-32.0); Mean Corpuscular Volume 78.6 fL (80-94); Mean Platelet Vol. 10.3 fl (6.2-12.0); Monocyte# 1.58 X10^3/uL; Neutrophil # 10.54 X10^3/uL (2.7-7.7); Neutrophil % 79.7 % (47-70); Platelet Count 372 K/mm3 (150-450); RBC Distribution Width CV 16.6 % (11.6-14.6); RBC Distribution Width SD 47.5 fl (35.1-43.9); Red Blood Count 4.71 M/mm3 (4.6-6.2); White Blood Count 13.2 K/mm3 (4.4-11.0)
[2024-05-17 14:07] LABS: ALB/GLOB Ratio 0.8 RATIO (0.9-2.4); AST(SGOT) 10 U/L (15-37); Alanine Aminotransfer ALT/SGPT 22 U/L (16-61); Albumin, Serum 2.9 g/dL (3.2-5.0); Alkaline Phosphatase 123 U/L (45-117); Anion Gap 4 (5-15); BUN 15 mg/dL (7-18); BUN/Creat Ratio 18.9 RATIO (10-20); Calcium,Total 8.6 mg/dL (8.5-10.1); Chloride 109 mmol/L (98-107); EST Glomerular Filtration Rate 102 mL/min (>60); Est Glom Filt Rate - Afr Amer 123 mL/min (>60); Globulin 3.5 g/dL (2.2-4.2); Glucose 80 mg/dL (74-106); Potassium 3.7 mmol/L (3.5-5.1); Protein, Total 6.4 g/dL (6.4-8.2); Sodium Level 140 mmol/L (136-145)
[2024-05-17 14:12] LABS: Platelet Estimate ADEQUATE (ADEQ); Red Cell Morphology NORM C+C NORMAL (NORM C&C)
[2024-05-17 14:13] LABS: POSITIVE DIFFERENTIAL NO
[2024-05-17 14:15] LABS: BNP,B-Type NATRIURETIC PEPTIDE 199.6 pg/mL (0-100)
[2024-05-17 14:16] LABS: D-Dimer Quantitative (DVT/PE) 1.08 FEU/ug/m (0.27-0.49)
--- NOTE | 2024-05-17 14:21 | CT_ITS ---
STUDY: CTA CHEST REASON FOR EXAM: Male, 74 years old. sob, elevated dimer, multiple myeloma RADIATION DOSAGE (If Supplied By Facility): CTDIvol = ( 20.89 ) mGy, DLP = ( 591.4 ) mGycm TECHNIQUE: The examination was performed with the intravenous administration of IV 100mL Isovue-370. Post-processing of the angiographic images was performed, with multiplanar reformation and 3D reconstruction. Individualized dose optimization techniques were used for this CT. COMPARISON: Prior study dated: 05/03/2023 FINDINGS: PULMONARY ARTERIES: Normal enhancement of the main pulmonary artery and right and left pulmonary arteries. Normal enhancement of the bilateral peripheral pulmonary arteries. There is no demonstrated pulmonary embolism. AORTA: Normal thoracic aorta and visualized great vessels. There is no demonstrated aortic dissection. MEDIASTINUM: Normal heart and pericardium. Coronary artery calcifications are seen. No mediastinal lymphadenopathy. Normal hilar regions. LUNGS/PLEURA: The central airways are patent. Bronchial wall thickening noted. Small bilateral pleural effusions with atelectasis. Mild patchy tree-in-bud nodular opacities of the left upper lobe. Additional patchy opacities in the left lower lobe. These findings are new from prior imaging. No pulmonary mass. No pneumothorax. CHEST WALL: Unchanged 4.3 cm subcutaneous cyst in the left chest wall anteriorly. No axillary lymphadenopathy. UPPER ABDOMEN: Normal visualized upper abdomen. OSSEOUS STRUCTURES: No acute or suspicious osseous abnormality. Multilevel degenerative changes of the spine. CT/CTA Chest W/WO Contrast IMPRESSION: No pulmonary embolism. Bronchial wall thickening can be seen with a small airways process such as asthma or atypical/viral infection. Associated infectious/inflammatory process of the left upper and lower lobes. Small bilateral pleural effusions. Electronically Signed: Skinny Viera MD at 15:42 EST ,
--- NOTE | 2024-05-17 14:25 | ED.VIS.DYS ---
HPI History of Present Illness Chief Complaint: Shortness of Breath Informant: patient and spouse/S.O. Narrative Narrative: Presents by private vehicle with spouse increasing dyspnea for the last 5 days productive sputum starting yesterday. No fevers or chills. No myalgias. History of COPD and sleep apnea. He wears a CPAP at night with no oxygen at night. He states he stopped needing oxygen last spring. Remote tobacco. He states for last 5 days has placed himself back on oxygen of 3 L due to worsening dyspnea. Denies chest tightness. Denies pain. Intermittent wheezing. History of diabetes. Denies any coronary disease history. Heart failure history preserved ejection fraction. History of multiple myeloma currently on treatment. No history of PE or DVT. Prior similar symptoms: Yes PFSH FOR[facility]LY [facility] Medical History Colon cancer Wears hearing aid Wears glasses Cancer Alcohol use History of steroid therapy Insulin dependent diabetes mellitus Anemia High cholesterol Former smoker CPAP (continuous positive airway pressure) dependence Sleep apnea On home oxygen therapy Shortness of breath on exertion History of edema History of Holter monitoring History of echocardiogram History of stress test Cardiology follow-up encounter History of CHF (congestive heart failure) History of atrial fibrillation History of irregular heartbeat Rash Hx of multiple myeloma Multiple myeloma Type 2 diabetes mellitus History of left heart catheterization (LHC) (~01/27/11) Mixed hyperlipidemia Essential hypertension Smoldering multiple myeloma Measles Chicken pox Erectile dysfunction Palpitations Murmur Chest pain Abnormal electrocardiogram Atherosclerotic heart disease of [place] coronary artery without angina pectoris SOB (shortness of breath) COPD (chronic obstructive pulmonary disease) Obesity MESA (dyspnea on exertion) CONCHA (obstructive sleep apnea) Home Medications ?Medication ?Instructions ?Recorded ?Last Taken ?Type atorvastatin 20 mg tablet (Lipitor) 20 mg PO QDAY cholesterol 08/19/17 05/17/24 History magnesium 250 mg tablet 250 mg PO QDAY supplement 08/19/17 05/17/24 History omega-3 fatty acids 1,000 mg 1,000 mg PO QDAY supplement 08/19/17 05/17/24 History capsule cholecalciferol (vitamin D3) 50 50 mcg PO DAILY supplement 05/14/22 05/17/24 History mcg (2,000 unit) tablet handicap placard #1 ea 01/18/23 Unknown Rx losartan 50 mg tablet 50 mg PO DAILY #90 tabs 01/18/23 05/17/24 Rx empagliflozin 10 mg tablet 10 mg PO DAILY 02/23/23 05/17/24 History (Jardiance) daratumumab 20 mg/mL intravenous mg .Route 12/06/23 05/09/24 History solution (Darzalex) potassium chloride 20 mEq 20 meq PO DAILY 12/06/23 05/17/24 History tablet,extended release semaglutide 0.25 mg or 0.5 mg (2 0.25 mg subcut WE 12/06/23 05/16/24 History mg/3 mL) subcutaneous pen injector (Ozempic) acyclovir 400 mg tablet 400 mg PO BID 12/12/23 05/17/24 History dexamethasone 4 mg tablet 4 mg PO DAILY 12/12/23 05/09/24 History insulin aspart U-100 100 unit/mL 36 unit subcut QACLUNCH diabetes 12/12/23 05/16/24 History (3 mL) subcutaneous pen (Novolog FlexPen U-100 Insulin aspart) insulin aspart U-100 100 unit/mL 54 unit subcut QACDINNER diabetes 12/12/23 05/16/24 History (3 mL) subcutaneous pen (Novolog FlexPen U-100 Insulin aspart) pantoprazole 40 mg tablet,delayed 40 mg PO QAM #90 tabs 01/04/24 05/17/24 Rx release fluticasone fur. 200 mcg-umeclid 1 inh inhalation DAILY #90 days 02/09/24 05/17/24 Rx 62.5 mcg-vilant 25 mcg inhalat.powder (Trelegy Ellipta) albuterol sulfate 90 mcg/actuation 2 puff inhalation Q4H PRN breathing 02/28/24 Unknown History aerosol inhaler (Ventolin HFA) insulin degludec 100 unit/mL 60 unit subcut DAILY 02/28/24 05/17/24 History subcutaneous solution (Tresiba U-100 Insulin) ondansetron HCl 8 mg tablet 8 mg PO Q8H PRN nausea and vomiting 02/28/24 Unknown History diltiazem HCl 240 mg 240 mg PO DAILY 05/17/24 05/17/24 History capsule,extended release 24 hr insulin aspart U-100 100 unit/mL 22 unit subcut DAILY 05/17/24 05/17/24 History (3 mL) subcutaneous pen (Novolog FlexPen U-100 Insulin aspart) insulin degludec 100 unit/mL (3 42 unit subcut DINNER 05/17/24 05/16/24 History mL) subcutaneous pen (Tresiba FlexTouch U-100 insulin) insulin degludec 100 unit/mL (3 60 unit subcut 1200 05/17/24 05/16/24 History mL) subcutaneous pen (Tresiba FlexTouch U-100 insulin) metformin 1,000 mg tablet 1,000 mg PO BIDAC 05/17/24 05/17/24 History naproxen 375 mg tablet 375 mg PO BID 05/17/24 05/17/24 History tizanidine 4 mg tablet 4 - 6 mg PO TID PRN muscle 05/17/24 Unknown History spasticity Allergy/AdvReac Type Severity Reaction Status Date / Time Penicillins Allergy Mild Rash Verified 02/28/24 13:02 Family History Father Myocardial infarction Mother Breast cancer Surgical History Status post recent transurethral resection of prostate (~02/02/23) Hx of bilateral cataract extraction Hx of esophagogastroduodenoscopy History of cataract extraction Bone spur removal Social History Smoking Status: Former smoker quit date: 04/25/02 pack-years: 31 alcohol intake: current alcohol intake frequency: holidays/special occasions only substance use type: does not use caffeine: Yes Type: coffee Number of servings: 5 ROS ROS ED Constitutional Constitutional ED: Denies chills, fever(s) or sweats ENT ENT ED: Denies sore throat Cardiovascular Cardiovascular: Reports leg edema; Denies chest pain, palpitations or racing heartbeat Respiratory/Chest Respiratory/Chest: Reports cough and dyspnea; Denies dyspnea on exertion Gastrointestinal Gastrointestinal: Denies abdominal pain, diarrhea, nausea or vomiting Genitourinary Genitourinary ED: Denies dysuria, hematuria or urinary frequency Musculoskeletal Musculoskeletal: Denies back pain, extremity pain or neck pain Integumentary Denies rash or wounds Neurologic Neurologic: Denies headache(s), paresthesias or weakness EXAM Physical Exam Const Vital Signs: 05/17/24 13:06 05/17/24 13:08 05/17/24 13:08 Temperature 97.8 F 98 F Temperature Source Temporal Oral Pulse Rate 81 78 Respiratory Rate 24 H 18 Respiratory Effort Respiratory Depth Respiratory Pattern Blood Pressure 149/59 H 159/61 H Blood Pressure Mean 89 93 Pulse Ox 88 94 93 Oxygen Delivery Method Nasal Cannula Nasal Cannula Nasal Cannula Oxygen Flow Rate (L/min) 3 3 4 05/17/24 13:20 05/17/24 13:50 05/17/24 14:08 Temperature 97.6 F L Temperature Source Oral Pulse Rate 71 Respiratory Rate 15 Respiratory Effort Short of Breath Respiratory Depth Normal Respiratory Pattern Normal Blood Pressure 139/88 H Blood Pressure Mean 105 Pulse Ox 98 Oxygen Delivery Method Nasal Cannula Room Air Oxygen Flow Rate (L/min) 3 05/17/24 14:09 05/17/24 15:00 Temperature 97.6 F L Temperature Source Oral Pulse Rate 65 71 Respiratory Rate 19 H 16 Respiratory Effort Respiratory Depth Respiratory Pattern Blood Pressure 139/51 H 139/88 H Blood Pressure Mean 80 105 Pulse Ox 94 96 Oxygen Delivery Method Nasal Cannula Oxygen Flow Rate (L/min) 4 Positive well nourished and well developed Constitutional Narrative: 4 L nasal cannula, no respiratory distress speaking in full sentences. General Appearance ED: well developed and NAD HEENT Reports moist mucous membranes normocephalic and atraumatic Eyes General Eye ED: Yes normal appearance of both eyes Neck full ROM Chest Wall Chest: Negative for tenderness Resp normal respiratory effort and normal air movement Effort and Inspection: symmetric chest movement; Negative for respiratory distress Cardio regular rate and no murmurs Rhythm: abnormal rhythm Peripheral Pulses: pulses 2+ throughout GI normal to inspection, nondistended, normoactive bowel sounds and non-tender Palpation: Negative for guarding or rebound tenderness present Extremity normal to inspection Extremity Narrative: Minimal lower extremity edema no calf tenderness. General Extremety ED: Yes edema; Negative for tenderness General Extremity: edema Neuro oriented x3 and no sensory deficits noted Sensorium / Orientation: awake and alert MDM MDM MDM Narrative Medical decision making narrative: Interventions / MDM: Differential diagnosis: Diagnosis considered but do not suspect: N/A My EKG interpretation: Narrow complex irregular rhythm with PVCs. No ST changes. Heart rate 69, return for possible atrial fibrillation.. Previous EKG November 2022 concerns for second-degree AV block however in October 2022 reported atrial fibrillation. Imaging independently reviewed and interpreted by myself: 1 view chest x-ray: Blunting left costal angle. CTA chest: No PE, pleural effusions with infiltrates. Also read by radiology. External documents reviewed: November 2022: Echocardiogram EF of 70%. Test considered but not ordered:N/A ED course: Patient requiring oxygen again the last 5 days he is on 4 L no respiratory distress. Coughing started yesterday. Minimal lower extremity edema. Will check chest x-ray labs including BNP. D-dimer with his history of multiple myeloma history current treatment and dyspnea. 1430: D-dimer elevated. Chest x-ray blunting left costophrenic angle. Questionable infiltrate per radiology. White count 13.2. Hemoglobin 9.2. Creatinine is 0.8. BNP 199. CT angiogram chest ordered for further evaluation. 1600: CT negative for PE pleural effusions with infiltrates. He is currently on 4 L 91% on room air. Rocephin and Zithromax ordered. Will discuss with hospitalist for admission. I discussed with hospitalist Dr. Casey for admission. Re-evaluation: stable Disposition discussed with patient/family/significant other: Patient and family Case discussed with consulting clinician: Hospitalist This note was generated with 3VR dictation software. It may contain incorrect words, spelling, and punctuation that were not noted in checking the note before signing. Lab Data Attestation: I reviewed the patient's lab results. Labs: Laboratory Results - last 24 hr 05/17/24 13:26 WBC 13.2 H RBC 4.71 Hgb 11.2 L Hct 37.0 L MCV 78.6 L MCH 23.8 L MCHC 30.3 L RDW Std Deviation 47.5 H RDW Coeff of Kavya 16.6 H Plt Count 372 MPV 10.3 Immature Gran % (Auto) 0.500 Neut % (Auto) 79.7 H Lymph % (Auto) 6.8 L [place] % (Auto) 12.0 H Eos % (Auto) 0.8 Baso % (Auto) 0.2 Absolute Neuts (auto) 10.5 H Absolute Lymphs (auto) 0.90 Diff Path Review May foll Platelet Estimate ADEQUATE RBC Morphology NORM C+C D-Dimer Quant (PE/DVT) 1.08 H* Sodium 140 Potassium 3.7 Chloride 109 H Carbon Dioxide 27.0 Anion Gap 4 L BUN 15 Creatinine 0.80 Est GFR (MDRD) Af Amer 123 Est GFR (MDRD) Non-Af 102 BUN/Creatinine Ratio 18.9 Glucose 80 Calcium 8.6 Total Bilirubin 0.90 AST 10 L ALT 22 Alkaline Phosphatase 123 H B-Natriuretic Peptide 199.6 H Total Protein 6.4 Albumin 2.9 L Globulin 3.5 Albumin/Globulin Ratio 0.8 L Radiography Diagnostic Testing: Clinical Impression(s) from Imaging Studies Chest X-Ray 05/17/24 13:30 IMPRESSION: Cardiomegaly. CHF with blunting of the left costophrenic angle and left basilar atelectasis and/or infiltrate. Electronically Signed: Adán Espinosa MD at 13:48 EST , Chest CTA 05/17/24 14:21 IMPRESSION: No pulmonary embolism. Bronchial wall thickening can be seen with a small airways process such as asthma or atypical/viral infection. Associated infectious/inflammatory process of the left upper and lower lobes. Small bilateral pleural effusions. Electronically Signed: Skinny Viera MD at 15:42 EST , Discharge Plan Dx/Rx/DC Orders Clinical Impression: Community acquired pneumonia, Multiple myeloma, COPD (chronic obstructive pulmonary disease), Hypoxia, Pleural effusion, bilateral Disposition Disposition: Acute Care [facility]
[2024-05-17] MEDS: Ceftriaxone 1 GM/50 ML BAG IV (16:07)
--- NOTE | 2024-05-17 16:18 | PCM.HP.STD ---
[facility] - General General Date of Admission: 05/17/24 Date of Service: 05/17/24 Chief Complaint: Shortness of breath HPI Narrative CYN MARTINEZ, is a 74 M with a significant history of hypertension; type 2 diabetes mellitus on insulin; COPD; colon cancer status post colectomy; and multiple myeloma on monthly treatments who presents with 5-day history of progressively worsening shortness of breath. Associated with his symptom is a dry cough. Also patient reports intermittent wheezing. Although he has stopped using home oxygen with his recent symptoms he put himself back on 3 L nasal cannula oxygen. In emergency department patient required 4 L nasal [place] to maintain appropriate oxygenation. Imaging of the emergency department showed infiltrates. BNP was mildly elevated. FORMERLY [facility] Medical History Colon cancer Wears hearing aid Wears glasses Cancer Alcohol use History of steroid therapy Insulin dependent diabetes mellitus Anemia High cholesterol Former smoker CPAP (continuous positive airway pressure) dependence Sleep apnea On home oxygen therapy Shortness of breath on exertion History of edema History of Holter monitoring History of echocardiogram History of stress test Cardiology follow-up encounter History of CHF (congestive heart failure) History of atrial fibrillation History of irregular heartbeat Rash Hx of multiple myeloma Multiple myeloma Type 2 diabetes mellitus History of left heart catheterization (LHC) (~01/27/11) Mixed hyperlipidemia Essential hypertension Smoldering multiple myeloma Measles Chicken pox Erectile dysfunction Palpitations Murmur Chest pain Abnormal electrocardiogram Atherosclerotic heart disease of [place] coronary artery without angina pectoris SOB (shortness of breath) COPD (chronic obstructive pulmonary disease) Obesity MESA (dyspnea on exertion) CONCHA (obstructive sleep apnea) Home Medications ?Medication ?Instructions ?Recorded ?Last Taken ?Type atorvastatin 20 mg tablet (Lipitor) 20 mg PO QDAY cholesterol 08/19/17 05/17/24 History magnesium 250 mg tablet 250 mg PO QDAY supplement 08/19/17 05/17/24 History omega-3 fatty acids 1,000 mg 1,000 mg PO QDAY supplement 08/19/17 05/17/24 History capsule cholecalciferol (vitamin D3) 50 50 mcg PO DAILY supplement 05/14/22 05/17/24 History mcg (2,000 unit) tablet handicap placard #1 ea 01/18/23 Unknown Rx losartan 50 mg tablet 50 mg PO DAILY #90 tabs 01/18/23 05/17/24 Rx empagliflozin 10 mg tablet 10 mg PO DAILY 02/23/23 05/17/24 History (Jardiance) daratumumab 20 mg/mL intravenous mg .Route 12/06/23 05/09/24 History solution (Darzalex) potassium chloride 20 mEq 20 meq PO DAILY 12/06/23 05/17/24 History tablet,extended release semaglutide 0.25 mg or 0.5 mg (2 0.25 mg subcut WE 12/06/23 05/16/24 History mg/3 mL) subcutaneous pen injector (Ozempic) acyclovir 400 mg tablet 400 mg PO BID 12/12/23 05/17/24 History dexamethasone 4 mg tablet 4 mg PO DAILY 12/12/23 05/09/24 History insulin aspart U-100 100 unit/mL 36 unit subcut QACLUNCH diabetes 12/12/23 05/16/24 History (3 mL) subcutaneous pen (Novolog FlexPen U-100 Insulin aspart) insulin aspart U-100 100 unit/mL 54 unit subcut QACDINNER diabetes 12/12/23 05/16/24 History (3 mL) subcutaneous pen (Novolog FlexPen U-100 Insulin aspart) pantoprazole 40 mg tablet,delayed 40 mg PO QAM #90 tabs 01/04/24 05/17/24 Rx release fluticasone fur. 200 mcg-umeclid 1 inh inhalation DAILY #90 days 02/09/24 05/17/24 Rx 62.5 mcg-vilant 25 mcg inhalat.powder (Trelegy Ellipta) albuterol sulfate 90 mcg/actuation 2 puff inhalation Q4H PRN breathing 02/28/24 Unknown History aerosol inhaler (Ventolin HFA) insulin degludec 100 unit/mL 60 unit subcut DAILY 02/28/24 05/17/24 History subcutaneous solution (Tresiba U-100 Insulin) ondansetron HCl 8 mg tablet 8 mg PO Q8H PRN nausea and vomiting 02/28/24 Unknown History diltiazem HCl 240 mg 240 mg PO DAILY 05/17/24 05/17/24 History capsule,extended release 24 hr insulin aspart U-100 100 unit/mL 22 unit subcut DAILY 05/17/24 05/17/24 History (3 mL) subcutaneous pen (Novolog FlexPen U-100 Insulin aspart) insulin degludec 100 unit/mL (3 42 unit subcut DINNER 05/17/24 05/16/24 History mL) subcutaneous pen (Tresiba FlexTouch U-100 insulin) insulin degludec 100 unit/mL (3 60 unit subcut 1200 05/17/24 05/16/24 History mL) subcutaneous pen (Tresiba FlexTouch U-100 insulin) metformin 1,000 mg tablet 1,000 mg PO BIDAC 05/17/24 05/17/24 History naproxen 375 mg tablet 375 mg PO BID 05/17/24 05/17/24 History tizanidine 4 mg tablet 4 - 6 mg PO TID PRN muscle 05/17/24 Unknown History spasticity Allergy/AdvReac Type Severity Reaction Status Date / Time Penicillins Allergy Mild Rash Verified 02/28/24 13:02 Family History Father Myocardial infarction Mother Breast cancer Surgical History Status post recent transurethral resection of prostate (~02/02/23) Hx of bilateral cataract extraction Hx of esophagogastroduodenoscopy History of cataract extraction Bone spur removal Social History Smoking Status: Former smoker quit date: 04/25/02 pack-years: 31 alcohol intake: current alcohol intake frequency: holidays/special occasions only substance use type: does not use caffeine: Yes Type: coffee Number of servings: 5 ROS ROS Narrative Complete review of system is negative except as stated in HPI Vital Signs Vital Signs Vital Signs: 05/17/24 13:06 05/17/24 13:08 05/17/24 13:08 Temperature 97.8 F 98 F Temperature Source Temporal Oral Pulse Rate 81 78 Respiratory Rate 24 H 18 Respiratory Effort Respiratory Depth Respiratory Pattern Blood Pressure 149/59 H 159/61 H Blood Pressure Mean 89 93 Pulse Ox 88 94 93 Oxygen Delivery Method Nasal Cannula Nasal Cannula Nasal Cannula Oxygen Flow Rate (L/min) 3 3 4 05/17/24 13:20 05/17/24 13:50 05/17/24 14:08 Temperature 97.6 F L Temperature Source Oral Pulse Rate 71 Respiratory Rate 15 Respiratory Effort Short of Breath Respiratory Depth Normal Respiratory Pattern Normal Blood Pressure 139/88 H Blood Pressure Mean 105 Pulse Ox 98 Oxygen Delivery Method Nasal Cannula Room Air Oxygen Flow Rate (L/min) 3 05/17/24 14:09 05/17/24 15:00 Temperature 97.6 F L Temperature Source Oral Pulse Rate 65 71 Respiratory Rate 19 H 16 Respiratory Effort Respiratory Depth Respiratory Pattern Blood Pressure 139/51 H 139/88 H Blood Pressure Mean 80 105 Pulse Ox 94 96 Oxygen Delivery Method Nasal Cannula Oxygen Flow Rate (L/min) 4 Physical Exam Narrative Physical exam: General: Well-nourished, well-developed. Head: Normocephalic, atraumatic, no tenderness Eyes: Vision is grossly intact. EOMI ENT, no trauma, moist mucous membranes, no rhinorrhea Neck: Nontender, No thyromegaly. CVS: Irregularly irregular rate and rhythm; murmur (reportedly chronic); S1-S2 present Respiratory : clear to auscultation bilaterally, chest wall nontender; faint wheeze right posterior lower lung feels Abdomen: Soft, nontender, nondistended, normal bowel sounds, no masses : Deferred Back: Nontender, no CVA tenderness, no midline spinal tenderness, deformities, step-offs Extremities: Nontender full range of motion, no trauma Skin: Normal color, no trauma, abrasions Neuro: Alert, oriented, cranial nerves II through XII grossly intact. Psychiatry: Normal mood. Normal affect. Not depressed. Not anxious. Results Lab / Micro Data 05/17/24 13:26 05/17/24 13:26 Labs: Laboratory Results - last 24 hr 05/17/24 13:26: WBC 13.2 H, RBC 4.71, Hgb 11.2 L, Hct 37.0 L, MCV 78.6 L, MCH 23.8 L, MCHC 30.3 L, RDW Std Deviation 47.5 H, RDW Coeff of Kavya 16.6 H, Plt Count 372, MPV 10.3, Immature Gran % (Auto) 0.500, Neut % (Auto) 79.7 H, Lymph % (Auto) 6.8 L, [place] % (Auto) 12.0 H, Eos % (Auto) 0.8, Baso % (Auto) 0.2, Absolute Neuts (auto) 10.5 H, Absolute Lymphs (auto) 0.90, Diff Path Review May foll, Platelet Estimate ADEQUATE, RBC Morphology NORM C+C, D-Dimer Quant (PE/DVT) 1.08 H*, Sodium 140, Potassium 3.7, Chloride 109 H, Carbon Dioxide 27.0, Anion Gap 4 L, BUN 15, Creatinine 0.80, Est GFR (MDRD) Af Amer 123, Est GFR (MDRD) Non-Af 102, BUN/Creatinine Ratio 18.9, Glucose 80, Calcium 8.6, Total Bilirubin 0.90, AST 10 L, ALT 22, Alkaline Phosphatase 123 H, B-Natriuretic Peptide 199.6 H, Total Protein 6.4, Albumin 2.9 L, Globulin 3.5, Albumin/Globulin Ratio 0.8 L Micro: Microbiology 05/17/24 13:26 Mucosa - Nose SARS-CoV-2, Influenza & RSV (PCR) - Final Imaging Radiology Impression Chest X-Ray 05/17/24 13:30 IMPRESSION: Cardiomegaly. CHF with blunting of the left costophrenic angle and left basilar atelectasis and/or infiltrate. Electronically Signed: Adán Espinosa MD at 13:48 EST , Chest CTA 05/17/24 14:21 IMPRESSION: No pulmonary embolism. Bronchial wall thickening can be seen with a small airways process such as asthma or atypical/viral infection. Associated infectious/inflammatory process of the left upper and lower lobes. Small bilateral pleural effusions. Electronically Signed: Skinny Viera MD at 15:42 EST , Assessment & Plan Assessment/Plan (1) COPD (chronic obstructive pulmonary disease): QUALIFIERS: COPD type: COPD with acute exacerbation Qualified Code(s): J44.1 - Chronic obstructive pulmonary disease with (acute) exacerbation (2) Hypoxia: (3) Community acquired pneumonia: QUALIFIERS: Laterality: left Lung location: unspecified part of lung Qualified Code(s): J18.9 - Pneumonia, unspecified organism (4) Pleural effusion, bilateral: (5) Chronic low back pain: QUALIFIERS: Back pain laterality: unspecified Sciatica presence: unspecified whether sciatica present Qualified Code(s): M54.50 - Low back pain, unspecified; G89.29 - Other chronic pain (6) Type 2 diabetes mellitus: QUALIFIERS: Diabetes mellitus complication status: without complication Diabetes mellitus care home insulin use: with care home use Qualified Code(s): E11.9 - Type 2 diabetes mellitus without complications; Z79.4 - intermediate (current) use of insulin (7) Atrial fibrillation: QUALIFIERS: Atrial fibrillation type: paroxysmal Qualified Code(s): I48.0 - Paroxysmal atrial fibrillation (8) Bilateral lower extremity edema: PLAN: Plan Pneumonia??DuoNeb scheduled. Albuterol as needed Legionella antigen screen and Strep antigen ordered Ceftriaxone and azithromycin ordered prnTessalon Perles ordered Newly diagnosed A-fib?controlled rate. [id number] 2 score is high. Get echocardiogram. Check magnesium and TSH level Blood glucose is soft at 80. Hold home basal and prandial insulin. Accu-Chek correction scale insulin ordered. COPD with mild agitation?hold off steroids at this time. Scheduled DuoNeb and as needed albuterol ordered. Obstructive sleep apnea?previously with oxygen bled in but oxygen later weaned off. With any shortness of breath a pressure put him back on oxygen. CPAP ordered. Please oxygenation as necessary. Chronic back pain?Home tizanidine as needed continue. Adjust as necessary. Offload at home patient is on 4 to 6 mg ordered but reportedly takes 4 mg as needed. Bilateral lower extremity edema?echocardiogram as above. Elevate bilateral lower extremities. Advance care plan Advance care planning: Discussed with patient and family advanced directives as well as CODE STATUS. Explained various CODE STATUS: FULL CODE, DNR CCA, DNR CCA with no intubation, and DNR CC- and what each meant. Patient elected to be a full code with CPR and intubation if warranted. Patient's is surrogate decision maker. Order was placed. Time spent on discussion 16 minutes. Time spent in the patient's overall evaluation,decision-making process, review of diagnostic data, adjustment of management, discussion with other providers, nursing and ancillary staff involved in patient's care documentation, 60 minutes.
[2024-05-17] MEDS: Azithromycin 500 MG in 0.9% Normal Saline (250mL Bag) 250 ML 255 MG IV (16:58)
--- NOTE | 2024-05-17 17:28 | ECHOCS_ITS ---
Reason For Study: AFIB Procedure This was a 2D Doppler, Color Flow transthoracic echocardiogram. The study was technically difficult. Contrast injection was performed. Exam performed portable in patient room. Left Ventricle Normal LV size. The estimated ejection fraction is 70 %. Unable to assess diastolic dysfunction. No regional wall motion abnormalities noted. Right Ventricle Normal RV size. Normal systolic function. Atria The left atrium is mildly enlarged. Normal right atrium. No doppler evidence for ASD. Mitral Valve There is no mitral valve stenosis. Mild (1+) mitral valve insufficiency. Tricuspid Valve There is no tricuspid stenosis. Mild tricuspid valve insufficiency. Unable to estimate RV systolic pressure due to insufficient tricuspid regurgitant envelope. Aortic Valve Moderate diffuse aortic valve thickening. Mild to moderate aortic stenosis. Mild (1+) aortic valve insufficiency. Pulmonic Valve There is no pulmonic valvular stenosis. No pulmonic valve insufficiency. Great Vessels Normal aortic root. Pericardium/Pleural No pericardial effusion. Medication Diluted definity 2ml given slow IV push to enhance endocardial definition. MMode/2D Measurements & Calculations RVDd: 4.8 cm LAV(MOD-sp4): 148.9 ml LA A4 area: 36.6 cm2 LA dimension(2D): 4.7 cm RA A4 area: 20.7 cm2 Doppler Measurements & Calculations MV E max favio: 126.7 cm/sec Ao V2 max: 294.0 cm/sec LV V1 max: 150.5 cm/sec Ao max P.6 mmHg LV V1 max P.1 mmHg Ao V2 mean: 221.7 cm/sec LV V1 mean P.0 mmHg Ao mean P.7 mmHg LV V1 mean: 116.3 cm/sec Ao V2 VTI: 59.3 cm LV V1 VTI: 34.3 cm AV (velocity ratio): 0.58 PA V2 max: 115.6 cm/sec TR max favio: 385.0 cm/sec PA V2 mean: 82.0 cm/sec TR max P.3 mmHg ECHO/Echo Complete W/ Contrast Interpretation Summary The estimated ejection fraction is 70 %. The left atrium is mildly enlarged. Mild (1+) mitral valve insufficiency. Mild to moderate aortic stenosis. Mild (1+) aortic valve insufficiency. Ordering Physician: Jose Casey Referring Physician: Brian Sanchez Performed By: Odalys Bustos RCS
[2024-05-17] MEDS: NYSTATIN 500,000 UNIT/5 ML UDC 500000 UNIT PO ×2 (18:49→21:41)
[2024-05-17] MEDS: Enoxaparin 150 MG/ML Syringe 140 MG SC (18:49)
[2024-05-17] MEDS: Budesonide Respules 0.5 MG/2 ML AMPUL.NEB. INHALATION (21:17)
[2024-05-17] MEDS: Ipratropium/Albuterol Sulfate 3 ML AMPUL.NEB INHALATION (21:17)
[2024-05-17] MEDS: Naproxen 375 MG Tablet PO (21:41)
[2024-05-17] MEDS: Acyclovir 200 MG Capsule 400 MG PO (21:42)
[2024-05-17 23:42] LABS: Bedside Glucose 104 mg/dL (74-106)
[2024-05-18] VITALS (9 sets, daily range): BP systolic 142–165; BP diastolic 56–76; PULSE 65–90; RESP 16–20; TEMP 36.6–37.2; O2SAT 91–95
[2024-05-18 05:48] LABS: Absolute Lymphocyte Count 0.94 X10^3/uL (0.83-4.51); Absolute Neutrophil Count 8.9 X10^3/uL (2.0-7.7); Basophil# 0.06 X10^3/uL; Basophil% 0.5 % (0-1); Eosinophil# 0.13 X10^3/uL; Eosinophils% 1.1 % (0-5); Lymphocyte # 0.94 X10^3/ul (0.83-4.51); Lymphocyte % 8.1 % (19-41); Mean Corp Hgb Conc 28.9 g/dL (32-36); Mean Corpuscular Hgb 23.2 pg (27.0-32.0); Monocyte# 1.49 X10^3/uL; Monocyte% 12.8 % (0-10); NRBC Flagged by Analyzer 0 % (0-5); Neutrophil # 8.93 X10^3/uL (2.7-7.7); Neutrophil % 76.8 % (47-70); Platelet Count 345 K/mm3 (150-450); RBC Distribution Width CV 16.5 % (11.6-14.6); Red Blood Count 4.75 M/mm3 (4.6-6.2); White Blood Count 11.6 K/mm3 (4.4-11.0)
[2024-05-18] MEDS: Enoxaparin 150 MG/ML Syringe 140 MG SC (06:35)
[2024-05-18 06:44] LABS: Bedside Glucose 81 mg/dL (74-106)
[2024-05-18 06:45] LABS: Anion Gap 7 (5-15); BUN 16 mg/dL (7-18); BUN/Creat Ratio 21.9 RATIO (10-20); Calcium,Total 8.5 mg/dL (8.5-10.1); Chloride 107 mmol/L (98-107); Creatinine, Serum 0.73 mg/dL (0.70-1.30); EST Glomerular Filtration Rate 112 mL/min (>60); Est Glom Filt Rate - Afr Amer 136 mL/min (>60); Estimated Creatinine Clearance 116.48 ml/min; Glucose 83 mg/dL (74-106); Potassium 3.8 mmol/L (3.5-5.1); Sodium Level 138 mmol/L (136-145); Thyroid Stim Hormone (TSH) 0.602 uIU/mL (0.358-3.740)
[2024-05-18] MEDS: Budesonide Respules 0.5 MG/2 ML AMPUL.NEB. INHALATION ×2 (07:28→19:22)
[2024-05-18] MEDS: Ipratropium/Albuterol Sulfate 3 ML AMPUL.NEB INHALATION ×4 (07:28→19:22)
[2024-05-18] MEDS: Naproxen 375 MG Tablet PO ×2 (07:59→21:31)
[2024-05-18 10:21] LABS: Hemoglobin A1c 6.8 % (3.8-5.6)
[2024-05-18] MEDS: dilTIAZem CD 240 MG Capsule PO (10:47)
[2024-05-18] MEDS: Empagliflozin 10 MG Tablet PO (10:48)
[2024-05-18] MEDS: Pantoprazole Sodium 40 MG Tablet PO (10:48)
[2024-05-18] MEDS: NYSTATIN 500,000 UNIT/5 ML UDC 500000 UNIT PO ×4 (10:48→21:32)
[2024-05-18] MEDS: Potassium Chloride Oral Tablet 20 MEQ PO (10:48)
[2024-05-18] MEDS: Atorvastatin Calcium 20 MG Tablet PO (10:48)
[2024-05-18] MEDS: Omega-3 Acid Ethyl Esters 1 GM Capsule PO (10:48)
[2024-05-18] MEDS: Magnesium Chloride 64 MG Delay Rel.Tablet PO (10:48)
[2024-05-18] MEDS: Losartan Potassium 50 MG Tablet PO (10:48)
[2024-05-18] MEDS: Acyclovir 200 MG Capsule 400 MG PO ×2 (10:49→21:32)
[2024-05-18] MEDS: Cholecalciferol (VIT D3) 25 MCG TABLET (1,000 UNITS) 50 MCG PO (10:49)
[2024-05-18] MEDS: Azithromycin 500 MG in 0.9% Normal Saline (250mL Bag) 250 ML 255 MG IV (10:55)
--- NOTE | 2024-05-18 12:06 | CPS ---
CPAP machine set-up for use [employer]. Machine set at 13 as at home and O2 bleed in at 4lpm (not at home).
[2024-05-18] MEDS: Ceftriaxone 1 GM/50 ML BAG IV (12:15)
[2024-05-18 12:36] LABS: Bedside Glucose 133 mg/dL (74-106)
--- NOTE | 2024-05-18 13:00 | CASEMGMT ---
CHUCHO CORRIGAN Assessment: RN CM to room to meet with patient for initial transition planning/care coordination assessment. RN CM introduced self and role at [facility]. Patient sitting in chair, alert and oriented. Daughter, Louann, at bedside and pt agreeable to her being present during assessment. Patient willing to participate in assessment and is able to answer all questions appropriately. Care providers, pharmacy, and demographics verified. PCP: Dr Krishna Lane Specialists: Dr Booker, oncologist; Dr Kristian Lane, daycare teacher; Dr Vega, endocringologist; Dr Garcia, cat hooker; Dr Oconnor, pain mgnt [facility] Insurance: [employer], [employer] Prescription Benefit: yes LNOK: , Sheila. Dtr, Louann. Pt has 3 other children. Living Arrangements: Patient lives with in a 2 story home with bed and bath on first floor and 1 threshold step to enter. Patient states he is independent at home w/ADL's. Pt and share home mgnt tasks. Transportation: DME: Patient has a built-in shower seat, raised toilet, grab bars, walker, CPAP, pulse ox, functioning glucometer w/supplies, CGM/Brett 2 (not currently using), and home oxygen with portability through [facility] at 2lpm with exertion, although he has not worn it for awhile until recent illness. Pt has a portable O2 in his room @ [facility] that he can go home on. Pt states he has all needed insulin and needles @ home. He has a walker available, but does not use it. HHC/SNF: No hx of either. He has done OP therapy @ [facility] in the past. Pt denies need for HHC or OP therapy. Also discussed [facility], but he is not interested in this, either. Patient wishes to discharge home, denies need for home health at this time. Patient states he has no further needs or concerns at this time. CM to follow for discharge planning needs that may arise. Plan: Home w/family support and discharge plans in place. Follow for possible increase in home O2 needs. Home amb O2 testing to be completed prior to discharge. Green sheet placed on chart w/instructions. Veronika DOZIER RN, CM
--- NOTE | 2024-05-18 13:53 | PN_ITS ---
Subjective Subjective Patient seen and examined. He complained of coughing still. He denies any chest pain, palpitations, dizziness, nausea, vomiting or any other symptoms. Review of systems is otherwise negative. He is on 4L of oxygen by nasal canula. He says he usually wears 2-3L at home. Review of systems is otherwise negative. Objective Data Objective Data Vital Signs: Vital Signs Temp Pulse Resp BP Pulse Ox O2 Del Method O2 Flow Rate 98.2 F 71 18 151/56 H 94 Nasal Cannula 4 05/18/24 10:45 05/18/24 10:45 05/18/24 10:45 05/18/24 12:25 05/18/24 12:25 05/18/24 12:05/18/24 12:25 Oxygen Flow Rate (L/min) 4 Oxygen Delivery Method Nasal Cannula Weight: 310 lb Body Mass Index (BMI) 45.8 Intake & Output: Intake and Output for Last 24 Hours 05/16/24 05/17/24 05/18/24 23:59 23:59 23:59 Intake Total 305 / 605 555 / 555 Output Total 1000 / 1000 Balance 305 / -195 -445 / -445 Lab / Micro Data 05/18/24 05:16 05/18/24 05:16 Labs: Laboratory Results - last 24 hr 05/17/24 13:26: WBC 13.2 H, RBC 4.71, Hgb 11.2 L, Hct 37.0 L, MCV 78.6 L, MCH 23.8 L, MCHC 30.3 L, RDW Std Deviation 47.5 H, RDW Coeff of Kavya 16.6 H, Plt Count 372, MPV 10.3, Immature Gran % (Auto) 0.500, Neut % (Auto) 79.7 H, Lymph % (Auto) 6.8 L, [place] % (Auto) 12.0 H, Eos % (Auto) 0.8, Baso % (Auto) 0.2, A bsolute Neuts (auto) 10.5 H, Absolute Lymphs (auto) 0.90, Diff Path Review August, Platelet Estimate ADEQUATE, RBC Morphology NORM C+C, D-Dimer Quant (PE/DVT) 1.08 H*, Sodium 140, Potassium 3.7, Chloride 109 H, Carbon Dioxide 27.0, Anion Gap 4 L, BUN 15, Creatinine 0.80, Est GFR (MDRD) Af Amer 123, Est GFR (MDRD) Non-Af 102, BUN/Creatinine Ratio 18.9, Glucose 80, Calcium 8.6, Total Bilirubin 0.90, AST 10 L, ALT 22, Alkaline Phosphatase 123 H, B-Natriuretic Peptide 199.6 H, Total Protein 6.4, Albumin 2.9 L, Globulin 3.5, A lbumin/Globulin Ratio 0.8 L 05/17/24 19:41: Magnesium 2.0 05/17/24 23:21: POC Glucose 104 05/18/24 05:16: WBC 11.6 H, RBC 4.75, Hgb 11.0 L, Hct 38.0 L, MCV 80.0, MCH 23.2 L, MCHC 28.9 L, RDW Std Deviation 48.0 H, RDW Coeff of Kavya 16.5 H, Plt Count 345, MPV 10.0, Immature Gran % (Auto) 0.700, Neut % (Auto) 76.8 H, Lymph % (Auto) 8.1 L, [place] % (Auto) 12.8 H, Eos % (Auto) 1.1, Baso % (Auto) 0.5, A bsolute Neuts (auto) 8.9 H, Absolute Lymphs (auto) 0.94, Nucleated RBC % 0, Sodium 138, Potassium 3.8, Chloride 107, Carbon Dioxide 24.0, Anion Gap 7, BUN 16, Creatinine 0.73, Estim Creat Clear Calc 116.48, Est GFR (MDRD) Af Amer 136, Est GFR (MDRD) Non-Af 112, BUN/Creatinine Ratio 21.9 H, Glucose 83, Hemoglobin A1c 6.8 H, Calcium 8.5, TSH 0.602 05/18/24 06:26: POC Glucose 81 05/18/24 12:05: POC Glucose 133 H Micro: Microbiology 05/18/24 02:20 Urine, Clean Catch Legionella Antigen - Final 05/18/24 02:20 Urine, Clean Catch Streptococcus pneumoniae Antigen (M - Final 05/17/24 13:26 Mucosa - Nose SARS-CoV-2, Influenza & RSV (PCR) - Final Radiography Diagnostic Testing: Radiology Impression Chest CTA 05/17/24 14:21 IMPRESSION: No pulmonary embolism. Bronchial wall thickening can be seen with a small airways process such as asthma or atypical/viral infection. Associated infectious/inflammatory process of the left upper and lower lobes. Small bilateral pleural effusions. Electronically Signed: Skinny Viera MD at 15:42 EST , Echocardiogram 05/17/24 17:28 Interpretation Summary The estimated ejection fraction is 70 %. The left atrium is mildly enlarged. Mild (1+) mitral valve insufficiency. Mild to moderate aortic stenosis. Mild (1+) aortic valve insufficiency. Ordering Physician: Jose Casey Referring Physician: Brian Sanchez Performed By: Odalys Bustos RCS Physical Exam Const alert, oriented x3 and no apparent distress Constitutional Narrative: obese General Appearance: cooperative HEENT normocephalic, head/scalp atraumatic and moist oral mucous membranes Eyes PERRL and EOMs intact bilaterally Neck no lymphadenopathy and supple Lymph Lymphatic: no lymphadenopathy noted and no lymphedema noted Resp Resp Narrative: diminished breath sounds bibasally, bilateral crackles. On 4L of oxygen by nasal canula. Cardio regular rate, regular rhythm, S1 normal heart sound, S2 normal heart sound and no murmurs GI normal to inspection, nondistended, normoactive bowel sounds, soft to palpation, non-tender and non-distended Extremity normal capillary refill, no clubbing, cyanosis or edema and no calf tenderness General Extremity: no tenderness to palpation of joints or extremities Skin General Skin Exam: no breakdown Neuro CN's II-XII intact bilaterally, no focal motor deficits and no sensory deficits noted Motor Exam: strength 5/5 throughout and general weakness Psych thought process normal and cooperative Appearance: appropriate Assessment & Plan Assessment/Plan (1) Atrial fibrillation: QUALIFIERS: Atrial fibrillation type: paroxysmal Qualified Code(s): I48.0 - Paroxysmal atrial fibrillation (2) Pleural effusion, bilateral: (3) Bilateral lower extremity edema: (4) Hypoxia: PLAN: Plan #Hypoxia due to COPD exacerbation and community acquired pneumonia * on 4L of oxygen * On IV ceftriaxone and azithromycin. * breathing treatment with bronchodilators. * urine for strep and legionella * CTA chest showed no evidence of PE and showed bronchial wall thickening and small bilateral pleural effusions. * #New onset afib * rate controlled. * * echocardiogram ordered. * TSH pending. * magnesium WNL * On Cardizem and therapeutic Lovenox. Will switch to Eliquis 5 mg twice daily * #Diabetes mellitus * blood sugar was low. Lantus and prandial insulin on hold due to hypoglycemia * ISS. Accuchecks ACHS * A1C is 6.8. continue holding lantus * #Heart failure preserved ejection fraction * 2D echo shows EF of 70% with left atrium mildly enlarged and mild to moderate aortic stenosis and unable to assess diastolic dysfunction. No regional wall motion abnormalities noted. * Will start on Lasix as he has lower extremity edema. * BNP was 199.6. He is morbidly obese with a BMI of 45.8 so this may cause falsely low BNP * #COPD: on breathing treatment with bronchodilators. 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
[2024-05-18 14:28] LABS: Pathologist Review Reviewed
--- NOTE | 2024-05-18 14:46 | CHAPLAIN ---
Type of Pastoral Visit _x__ Initial Visit ___ Follow-up Visit ___ On-call Visit ___ General Patient Visit ___ Spiritual Assessment ___ Family Conference ___ Bereavement ___ Rapid Response ___ Code Blue ___ Other (describe below) Pastoral Care Referral From _x__ Patient ___ Family ___ Nurse ___ Physician ___ Fermentation Manager ___ Planning Associate ___ Other (describe below) Sacrament/Intervention _x__ Active listening ___ Anointing ___ Jewish ___ Bereavement ___ Communion _x__ Batsheva exploration ___ _x__ Life review _x__ Prayer ___ Reconciliation ___ Sacrament of Sick _x__ Supportive presence ___ Wedding ___ Other (describe below) Pastoral Comments patient is very welcoming and identifies self as a believer and active druze attender; daughter is in the room; pt gives explanation of his health need and speaks of not being afraid of ; pt has had a daughter twenty years ago; pt speaks of family and also of his batsheva beliefs and practices; pt is open to presence and prayer for support today; no other needs identified
[2024-05-18] MEDS: Furosemide 40 MG/4 ML Vial IV (15:06)
[2024-05-18] MEDS: Insulin Lispro 100 UNIT/ML INSULN.PEN SC ×2 (16:35→21:27)
[2024-05-18 16:57] LABS: Bedside Glucose 181 mg/dL (74-106)
[2024-05-18] MEDS: APIXABAN 5 MG TABLET PO (21:31)
[2024-05-19] VITALS (15 sets, daily range): BP systolic 154–166; BP diastolic 49–73; PULSE 60–86; RESP 18–22; TEMP 36.6–36.9; O2SAT 91–95; BMI 45.8
[2024-05-19 00:50] LABS: Bedside Glucose 190 mg/dL (74-106)
[2024-05-19 06:48] LABS: Bedside Glucose 122 mg/dL (74-106)
[2024-05-19] MEDS: Ipratropium/Albuterol Sulfate 3 ML AMPUL.NEB INHALATION ×4 (07:06→18:40)
[2024-05-19] MEDS: Budesonide Respules 0.5 MG/2 ML AMPUL.NEB. INHALATION ×2 (07:06→18:40)
[2024-05-19 07:17] LABS: Absolute Lymphocyte Count 0.81 X10^3/uL (0.83-4.51); Absolute Neutrophil Count 8.3 X10^3/uL (2.0-7.7); Basophil# 0.05 X10^3/uL; Basophil% 0.5 % (0-1); Eosinophil# 0.12 X10^3/uL; Eosinophils% 1.1 % (0-5); Hematocrit 38.1 % (40-54); Hemoglobin 11.2 g/dL (13.0-16.5); Lymphocyte # 0.81 X10^3/ul (0.83-4.51); Lymphocyte % 7.7 % (19-41); Mean Corp Hgb Conc 29.4 g/dL (32-36); Mean Corpuscular Hgb 23.1 pg (27.0-32.0); Mean Corpuscular Volume 78.7 fL (80-94); Mean Platelet Vol. 10.1 fl (6.2-12.0); Monocyte# 1.17 X10^3/uL; Monocyte% 11.1 % (0-10); NRBC Flagged by Analyzer 0 % (0-5); Neutrophil # 8.28 X10^3/uL (2.7-7.7); Neutrophil % 78.8 % (47-70); Platelet Count 371 K/mm3 (150-450); RBC Distribution Width CV 16.5 % (11.6-14.6); RBC Distribution Width SD 47.2 fl (35.1-43.9); Red Blood Count 4.84 M/mm3 (4.6-6.2); White Blood Count 10.5 K/mm3 (4.4-11.0)
[2024-05-19 09:39] LABS: Anion Gap 8 (5-15); BUN 17 mg/dL (7-18); BUN/Creat Ratio 26.2 RATIO (10-20); Calcium,Total 8.8 mg/dL (8.5-10.1); Chloride 105 mmol/L (98-107); Creatinine, Serum 0.65 mg/dL (0.70-1.30); EST Glomerular Filtration Rate 129 mL/min (>60); Est Glom Filt Rate - Afr Amer 156 mL/min (>60); Estimated Creatinine Clearance 116.47 ml/min; Glucose 134 mg/dL (74-106); Potassium 3.9 mmol/L (3.5-5.1); Sodium Level 138 mmol/L (136-145)
[2024-05-19] MEDS: Losartan Potassium 50 MG Tablet PO (11:04)
[2024-05-19] MEDS: Furosemide 40 MG/4 ML Vial IV (11:04)
[2024-05-19] MEDS: NYSTATIN 500,000 UNIT/5 ML UDC 500000 UNIT PO ×4 (11:05→21:02)
[2024-05-19] MEDS: Pantoprazole Sodium 40 MG Tablet PO (11:05)
[2024-05-19] MEDS: Potassium Chloride Oral Tablet 20 MEQ PO (11:05)
[2024-05-19] MEDS: Cholecalciferol (VIT D3) 25 MCG TABLET (1,000 UNITS) 50 MCG PO (11:05)
[2024-05-19] MEDS: dilTIAZem CD 240 MG Capsule PO (11:06)
[2024-05-19] MEDS: APIXABAN 5 MG TABLET PO ×2 (11:06→21:02)
[2024-05-19] MEDS: Magnesium Chloride 64 MG Delay Rel.Tablet PO (11:06)
[2024-05-19] MEDS: Naproxen 375 MG Tablet PO ×2 (11:06→21:02)
[2024-05-19] MEDS: Acyclovir 200 MG Capsule 400 MG PO ×2 (11:06→21:02)
[2024-05-19] MEDS: Omega-3 Acid Ethyl Esters 1 GM Capsule PO (11:07)
[2024-05-19] MEDS: Atorvastatin Calcium 20 MG Tablet PO (11:07)
[2024-05-19] MEDS: Empagliflozin 10 MG Tablet PO (11:09)
[2024-05-19] MEDS: Ceftriaxone 1 GM/50 ML BAG IV (11:33)
--- NOTE | 2024-05-19 12:10 | PN_ITS ---
Subjective Subjective Patient seen and examined. He had no complaints and said he felt much better. He had an uneventful night. He feels his breathing has improved. Review of systems otherwise negative. Objective Data Objective Data Vital Signs: Vital Signs Temp Pulse Resp BP Pulse Ox O2 Del Method O2 Flow Rate 98.0 F 78 20 H 160/54 H 95 Nasal Cannula 4 05/19/24 08:50 05/19/24 11:08 05/19/24 11:08 05/19/24 08:50 05/19/24 08:50 05/19/24 09:44 05/19/24 09:44 Oxygen Flow Rate (L/min) 4 Oxygen Delivery Method Nasal Cannula Weight: 309 lb 15.519 oz Body Mass Index (BMI) 45.8 Intake & Output: Intake and Output for Last 24 Hours 05/17/24 05/18/24 05/19/24 23:59 23:59 23:59 Intake Total 305 / 605 605 / 805 1100 / 1100 Output Total 2650 / 3250 1400 / 1400 Balance 305 / -195 -2045 / -2445 -300 / -300 Lab / Micro Data 05/19/24 07:06 05/19/24 07:06 Labs: Laboratory Results - last 24 hr 05/17/24 13:26: Diff Path Review Reviewed 05/18/24 12:05: POC Glucose 133 H 05/18/24 16:32: POC Glucose 181 H 05/18/24 21:26: POC Glucose 190 H 05/19/24 06:14: POC Glucose 122 H 05/19/24 07:06: WBC 10.5, RBC 4.84, Hgb 11.2 L, Hct 38.1 L, MCV 78.7 L, MCH 23.1 L, MCHC 29.4 L, RDW Std Deviation 47.2 H, RDW Coeff of Kavya 16.5 H, Plt Count 371, MPV 10.1, Immature Gran % (Auto) 0.800, Neut % (Auto) 78.8 H, Lymph % (Auto) 7.7 L, [place] % (Auto) 11.1 H, Eos % (Auto) 1.1, Baso % (Auto) 0.5, A bsolute Neuts (auto) 8.3 H, Absolute Lymphs (auto) 0.81 L, Nucleated RBC % 0, Sodium 138, Potassium 3.9, Chloride 105, Carbon Dioxide 25.0, Anion Gap 8, BUN 17, Creatinine 0.65 L, Estim Creat Clear Calc 116.47, Est GFR (MDRD) Af Amer 156, Est GFR (MDRD) Non-Af 129, BUN/Creatinine Ratio 26.2 H, Glucose 134 H, Calcium 8.8 Micro: Microbiology 05/18/24 02:20 Urine, Clean Catch Legionella Antigen - Final 05/18/24 02:20 Urine, Clean Catch Streptococcus pneumoniae Antigen (M - Final 05/17/24 13:26 Mucosa - Nose SARS-CoV-2, Influenza & RSV (PCR) - Final Radiography Diagnostic Testing: Radiology Impression Echocardiogram 05/17/24 17:28 Interpretation Summary The estimated ejection fraction is 70 %. The left atrium is mildly enlarged. Mild (1+) mitral valve insufficiency. Mild to moderate aortic stenosis. Mild (1+) aortic valve insufficiency. Ordering Physician: Jose Casey Referring Physician: Brian Sanchez Performed By: Odalys Bustos RCS Physical Exam Const alert, oriented x3 and no apparent distress Constitutional Narrative: obese General Appearance: cooperative and well developed HEENT normocephalic, head/scalp atraumatic and moist oral mucous membranes Eyes PERRL and EOMs intact bilaterally Neck no lymphadenopathy and supple Lymph Lymphatic: no lymphadenopathy noted and no lymphedema noted Resp Resp Narrative: diminished breath sounds bibasally, bilateral crackles. On 4L of oxygen by nasal canula. Cardio regular rate, regular rhythm, S1 normal heart sound, S2 normal heart sound and no murmurs GI normal to inspection, nondistended, normoactive bowel sounds, soft to palpation, non-tender and non-distended Extremity normal capillary refill, no clubbing, cyanosis or edema and no calf tenderness General Extremity: no tenderness to palpation of joints or extremities Skin General Skin Exam: no breakdown Neuro CN's II-XII intact bilaterally, no focal motor deficits and no sensory deficits noted Motor Exam: strength 5/5 throughout and general weakness Psych thought process normal and cooperative Appearance: appropriate Assessment & Plan Assessment/Plan (1) Atrial fibrillation: QUALIFIERS: Atrial fibrillation type: paroxysmal Qualified Code(s): I48.0 - Paroxysmal atrial fibrillation (2) Pleural effusion, bilateral: (3) Bilateral lower extremity edema: (4) Hypoxia: PLAN: Plan #Hypoxia due to COPD exacerbation and community acquired pneumonia * still on 4L of oxygen * On IV ceftriaxone and azithromycin. * breathing treatment with bronchodilators. * urine for strep and legionella * CTA chest showed no evidence of PE and showed bronchial wall thickening and small bilateral pleural effusions. * #New onset afib * rate controlled. * echocardiogram showed EF of 70% and unable to assess diastolic dysfunction with no regional wall motion abnormalities noted. Mild to moderate aortic valve stenosis and mild mitral and aortic valve insufficiency.. * TSH is normal at 0.602. * magnesium WNL * On Eliquis 5 mg twice daily * On Cardizem * #Diabetes mellitus * blood sugar was low. Lantus and prandial insulin on hold due to hypoglycemia * ISS. Accuchecks ACHS * A1C is 6.8. continue holding lantus * #Heart failure preserved ejection fraction * 2D echo shows EF of 70% with left atrium mildly enlarged and mild to moderate aortic stenosis and unable to assess diastolic dysfunction. No regional wall motion abnormalities noted. * Started on IV Lasix yesterday. Patient requesting switch from IV Lasix to p.o. Lasix to IV Lasix drip as he states that IV Lasix push makes him urinate more frequently. Will switch patient to p.o. Lasix 40 mg daily. * BNP was 199.6. He is morbidly obese with a BMI of 45.8 so this may cause falsely low BNP * #COPD: on breathing treatment with bronchodilators. 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
[2024-05-19] MEDS: Azithromycin 500 MG in 0.9% Normal Saline (250mL Bag) 250 ML 255 MG IV (12:19)
[2024-05-19] MEDS: Insulin Lispro 100 UNIT/ML INSULN.PEN SC ×3 (12:20→21:03)
[2024-05-19 13:47] LABS: Bedside Glucose 199 mg/dL (74-106)
[2024-05-19 13:50] LABS: Magnesium 2.1 mg/dL (1.6-2.6)
[2024-05-19] MEDS: Potassium Chloride Oral Tablet 20 MEQ 40 MEQ PO (14:38)
[2024-05-19 16:48] LABS: Bedside Glucose 150 mg/dL (74-106)
[2024-05-20] VITALS (15 sets, daily range): BP systolic 140–177; BP diastolic 52–64; PULSE 62–89; RESP 18–22; TEMP 36.6–36.8; O2SAT 87–97
[2024-05-20] LABS: Bedside Glucose 209 mg/dL (74-106)
[2024-05-20] MEDS: Insulin Lispro 100 UNIT/ML INSULN.PEN SC ×4 (06:44→21:27)
[2024-05-20] MEDS: Budesonide Respules 0.5 MG/2 ML AMPUL.NEB. INHALATION ×2 (06:55→19:19)
[2024-05-20] MEDS: Ipratropium/Albuterol Sulfate 3 ML AMPUL.NEB INHALATION ×4 (06:55→19:19)
[2024-05-20 07:04] LABS: Bedside Glucose 154 mg/dL (74-106)
[2024-05-20 07:31] LABS: Absolute Lymphocyte Count 0.93 X10^3/uL (0.83-4.51); Absolute Neutrophil Count 8.7 X10^3/uL (2.0-7.7); Basophil# 0.07 X10^3/uL; Basophil% 0.6 % (0-1); Eosinophil# 0.13 X10^3/uL; Eosinophils% 1.2 % (0-5); Hematocrit 39.2 % (40-54); Hemoglobin 11.5 g/dL (13.0-16.5); Lymphocyte # 0.93 X10^3/ul (0.83-4.51); Lymphocyte % 8.4 % (19-41); Mean Corp Hgb Conc 29.3 g/dL (32-36); Mean Corpuscular Hgb 23.1 pg (27.0-32.0); Mean Corpuscular Volume 78.9 fL (80-94); Mean Platelet Vol. 10.1 fl (6.2-12.0); Monocyte# 1.13 X10^3/uL; Monocyte% 10.2 % (0-10); NRBC Flagged by Analyzer 0 % (0-5); Neutrophil # 8.68 X10^3/uL (2.7-7.7); Neutrophil % 78.3 % (47-70); Platelet Count 385 K/mm3 (150-450); RBC Distribution Width CV 16.4 % (11.6-14.6); RBC Distribution Width SD 46.7 fl (35.1-43.9); Red Blood Count 4.97 M/mm3 (4.6-6.2); White Blood Count 11.1 K/mm3 (4.4-11.0)
[2024-05-20 07:58] LABS: Anion Gap 6 (5-15); BUN 17 mg/dL (7-18); Calcium,Total 8.7 mg/dL (8.5-10.1); Chloride 102 mmol/L (98-107); Creatinine, Serum 0.71 mg/dL (0.70-1.30); EST Glomerular Filtration Rate 116 mL/min (>60); Est Glom Filt Rate - Afr Amer 140 mL/min (>60); Estimated Creatinine Clearance 116.47 ml/min; Glucose 153 mg/dL (74-106); Sodium Level 138 mmol/L (136-145)
[2024-05-20] MEDS: Furosemide 40 MG Tablet PO (10:06)
[2024-05-20] MEDS: NYSTATIN 500,000 UNIT/5 ML UDC 500000 UNIT PO ×4 (10:06→21:26)
[2024-05-20] MEDS: Cholecalciferol (VIT D3) 25 MCG TABLET (1,000 UNITS) 50 MCG PO (10:07)
[2024-05-20] MEDS: Pantoprazole Sodium 40 MG Tablet PO (10:07)
[2024-05-20] MEDS: Naproxen 375 MG Tablet PO ×2 (10:07→21:26)
[2024-05-20] MEDS: Acyclovir 200 MG Capsule 400 MG PO ×2 (10:07→21:26)
[2024-05-20] MEDS: APIXABAN 5 MG TABLET PO ×2 (10:08→21:27)
[2024-05-20] MEDS: Losartan Potassium 50 MG Tablet PO (10:08)
[2024-05-20] MEDS: Magnesium Chloride 64 MG Delay Rel.Tablet PO (10:08)
[2024-05-20] MEDS: Empagliflozin 10 MG Tablet PO (10:08)
[2024-05-20] MEDS: Potassium Chloride Oral Tablet 20 MEQ PO (10:08)
[2024-05-20] MEDS: Omega-3 Acid Ethyl Esters 1 GM Capsule PO (10:08)
[2024-05-20] MEDS: Atorvastatin Calcium 20 MG Tablet PO (10:08)
[2024-05-20] MEDS: dilTIAZem CD 240 MG Capsule PO (10:08)
[2024-05-20] MEDS: Ceftriaxone 1 GM/50 ML BAG IV (11:14)
[2024-05-20 11:28] LABS: Bedside Glucose 211 mg/dL (74-106)
[2024-05-20] MEDS: Azithromycin 500 MG in 0.9% Normal Saline (250mL Bag) 250 ML 255 MG IV (11:58)
--- NOTE | 2024-05-20 14:04 | PN_ITS ---
Subjective Subjective Patient seen and examined. He said he felt better today and had no complaints. He was hoping for discharge. Review of symptoms otherwise negative. However he had walking pulse ox which showed that he had increased oxygen requirements up to 3 L. He does not even wear oxygen at home. The decision therefore made to keep patient 1 more day. Review systems otherwise negative. Objective Data Objective Data Vital Signs: Vital Signs Temp Pulse Resp BP Pulse Ox O2 Del Method O2 Flow Rate 98.3 F 88 20 H 177/52 H 93 Nasal Cannula 2 05/20/24 09:00 05/20/24 11:03 05/20/24 11:03 05/20/24 09:00 05/20/24 09:00 05/20/24 09:00 05/20/24 09:00 Oxygen Flow Rate (L/min) 2 Oxygen Delivery Method Nasal Cannula Weight: 309 lb 15.519 oz Body Mass Index (BMI) 45.8 Intake & Output: Intake and Output for Last 24 Hours 05/18/24 05/19/24 05/20/24 23:59 23:59 23:59 Intake Total 605 / 805 3605 / 3605 350 / 350 Output Total 2650 / 3250 3225 / 3225 525 / 525 Balance -2045 / -2445 380 / 380 -175 / -175 Lab / Micro Data 05/20/24 06:54 05/20/24 06:54 Labs: Laboratory Results - last 24 hr 05/19/24 16:27: POC Glucose 150 H 05/19/24 20:58: POC Glucose 209 H 05/20/24 06:42: POC Glucose 154 H 05/20/24 06:54: WBC 11.1 H, RBC 4.97, Hgb 11.5 L, Hct 39.2 L, MCV 78.9 L, MCH 23.1 L, MCHC 29.3 L, RDW Std Deviation 46.7 H, RDW Coeff of Kavya 16.4 H, Plt Count 385, MPV 10.1, Immature Gran % (Auto) 1.300 H, Neut % (Auto) 78.3 H, Lymph % (Auto) 8.4 L, [place] % (Auto) 10.2 H, Eos % (Auto) 1.2, Baso % (Auto) 0.6, A bsolute Neuts (auto) 8.7 H, Absolute Lymphs (auto) 0.93, Nucleated RBC % 0, Sodium 138, Potassium 4.0, Chloride 102, Carbon Dioxide 31.0, Anion Gap 6, BUN 17, Creatinine 0.71, Estim Creat Clear Calc 116.47, Est GFR (MDRD) Af Amer 140, Est GFR (MDRD) Non-Af 116, BUN/Creatinine Ratio 24.0 H, Glucose 153 H, Calcium 8.7 05/20/24 11:07: POC Glucose 211 H Micro: Microbiology 05/18/24 02:20 Urine, Clean Catch Legionella Antigen - Final 05/18/24 02:20 Urine, Clean Catch Streptococcus pneumoniae Antigen (M - Final 05/17/24 13:26 Mucosa - Nose SARS-CoV-2, Influenza & RSV (PCR) - Final Physical Exam Const alert, oriented x3 and no apparent distress Constitutional Narrative: obese General Appearance: cooperative and well developed HEENT normocephalic, head/scalp atraumatic and moist oral mucous membranes Eyes PERRL and EOMs intact bilaterally Neck no lymphadenopathy and supple Lymph Lymphatic: no lymphadenopathy noted and no lymphedema noted Resp Resp Narrative: diminished breath sounds bibasally, bilateral crackles. On 2L of oxygen by nasal canula. Cardio regular rate, regular rhythm, S1 normal heart sound, S2 normal heart sound and no murmurs GI normal to inspection, nondistended, normoactive bowel sounds, soft to palpation, non-tender and non-distended Extremity normal capillary refill, no clubbing, cyanosis or edema and no calf tenderness General Extremity: no tenderness to palpation of joints or extremities Skin General Skin Exam: no breakdown Neuro CN's II-XII intact bilaterally, no focal motor deficits and no sensory deficits noted Motor Exam: strength 5/5 throughout and general weakness Psych thought process normal and cooperative Appearance: appropriate Assessment & Plan Assessment/Plan (1) Atrial fibrillation: QUALIFIERS: Atrial fibrillation type: paroxysmal Qualified Code(s): I48.0 - Paroxysmal atrial fibrillation (2) Pleural effusion, bilateral: (3) Bilateral lower extremity edema: (4) Hypoxia: PLAN: Plan #Hypoxia due to COPD exacerbation and community acquired pneumonia * Now on 2 L of oxygen. However he desaturated with walking pulse ox this morning and required 3 L of oxygen. He does not even wear oxygen at home. * On IV ceftriaxone and azithromycin. * breathing treatment with bronchodilators. * urine for strep and legionella * CTA chest showed no evidence of PE and showed bronchial wall thickening and small bilateral pleural effusions. * Will watch 1 more day to further optimize him. * #Afib * rate controlled. * echocardiogram showed EF of 70% and unable to assess diastolic dysfunction with no regional wall motion abnormalities noted. Mild to moderate aortic valve stenosis and mild mitral and aortic valve insufficiency.. * TSH is normal at 0.602. * magnesium WNL * On Eliquis 5 mg twice daily * On Cardizem * #Diabetes mellitus * blood sugar was low. Lantus and prandial insulin on hold due to hypoglycemia * ISS. Accuchecks ACHS * A1C is 6.8. continue holding lantus * #Mild exacerbation of Heart failure preserved ejection fraction * 2D echo shows EF of 70% with left atrium mildly enlarged and mild to moderate aortic stenosis and unable to assess diastolic dysfunction. No regional wall motion abnormalities noted. * now on PO lasix 40mg daily * BNP was 199.6. He is morbidly obese with a BMI of 45.8 so this may cause falsely low BNP * #COPD: on breathing treatment with bronchodilators. Titrate oxygen to maintain sats> 90% #Bilateral lower extremity edema * on lasix * #Hypertension: On losartan and Cardizem. 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 Charges/Coding Visit Charges Inpatient E&M: 38259 Subs Hosp L2
[2024-05-20 16:37] LABS: Bedside Glucose 158 mg/dL (74-106)
[2024-05-20] MEDS: hydrALAZINE 20 MG/ML Vial 10 MG IV (20:01)
[2024-05-20] MEDS: tiZANidine HCl 2 MG Tablet 4 MG PO (21:35)
[2024-05-20 21:49] LABS: Bedside Glucose 172 mg/dL (74-106)
[2024-05-21] VITALS (10 sets, daily range): BP systolic 155–158; BP diastolic 55–71; PULSE 66–71; RESP 17–20; TEMP 36.1–36.8; O2SAT 87–99
[2024-05-21 06:04] LABS: Absolute Lymphocyte Count 0.88 X10^3/uL (0.83-4.51); Basophil# 0.06 X10^3/uL; Basophil% 0.6 % (0-1); Eosinophil# 0.12 X10^3/uL; Eosinophils% 1.2 % (0-5); Hematocrit 37.5 % (40-54); Hemoglobin 11.2 g/dL (13.0-16.5); Lymphocyte # 0.88 X10^3/ul (0.83-4.51); Lymphocyte % 8.7 % (19-41); Mean Corp Hgb Conc 29.9 g/dL (32-36); Mean Corpuscular Hgb 23.3 pg (27.0-32.0); Mean Corpuscular Volume 78.1 fL (80-94); Mean Platelet Vol. 9.9 fl (6.2-12.0); Monocyte# 0.88 X10^3/uL; Monocyte% 8.7 % (0-10); NRBC Flagged by Analyzer 0 % (0-5); Neutrophil % 79.5 % (47-70); Platelet Count 373 K/mm3 (150-450); RBC Distribution Width CV 16.4 % (11.6-14.6); RBC Distribution Width SD 46.2 fl (35.1-43.9); White Blood Count 10.1 K/mm3 (4.4-11.0)
[2024-05-21 06:32] LABS: Anion Gap 7 (5-15); BUN 15 mg/dL (7-18); BUN/Creat Ratio 24.1 RATIO (10-20); Calcium,Total 8.7 mg/dL (8.5-10.1); Chloride 101 mmol/L (98-107); Creatinine, Serum 0.62 mg/dL (0.70-1.30); EST Glomerular Filtration Rate 135 mL/min (>60); Est Glom Filt Rate - Afr Amer 163 mL/min (>60); Estimated Creatinine Clearance 116.47 ml/min; Glucose 154 mg/dL (74-106); Potassium 3.8 mmol/L (3.5-5.1); Sodium Level 135 mmol/L (136-145)
[2024-05-21] MEDS: Ipratropium/Albuterol Sulfate 3 ML AMPUL.NEB INHALATION ×2 (07:15→11:30)
[2024-05-21] MEDS: Budesonide Respules 0.5 MG/2 ML AMPUL.NEB. INHALATION (07:15)
[2024-05-21] MEDS: NYSTATIN 500,000 UNIT/5 ML UDC 500000 UNIT PO (09:28)
[2024-05-21] MEDS: APIXABAN 5 MG TABLET PO (09:29)
[2024-05-21] MEDS: Furosemide 40 MG Tablet PO (09:29)
[2024-05-21] MEDS: dilTIAZem CD 240 MG Capsule PO (09:29)
[2024-05-21] MEDS: Empagliflozin 10 MG Tablet PO (09:29)
[2024-05-21] MEDS: Omega-3 Acid Ethyl Esters 1 GM Capsule PO (09:29)
[2024-05-21] MEDS: Naproxen 375 MG Tablet PO (09:29)
[2024-05-21] MEDS: Acyclovir 200 MG Capsule 400 MG PO (09:29)
[2024-05-21] MEDS: Magnesium Chloride 64 MG Delay Rel.Tablet PO (09:29)
[2024-05-21] MEDS: Atorvastatin Calcium 20 MG Tablet PO (09:29)
[2024-05-21] MEDS: Pantoprazole Sodium 40 MG Tablet PO (09:29)
[2024-05-21] MEDS: Potassium Chloride Oral Tablet 20 MEQ PO (09:29)
[2024-05-21] MEDS: Losartan Potassium 50 MG Tablet PO (09:29)
[2024-05-21] MEDS: Cholecalciferol (VIT D3) 25 MCG TABLET (1,000 UNITS) 50 MCG PO (09:29)
[2024-05-21] MEDS: Benzonatate 100 MG Capsule PO (09:37)
[2024-05-21] MEDS: Ceftriaxone 1 GM/50 ML BAG IV (09:41)
[2024-05-21] MEDS: Azithromycin 500 MG in 0.9% Normal Saline (250mL Bag) 250 ML 255 MG IV (10:22)
--- NOTE | 2024-05-21 11:06 | DCINST_ITS ---
Discharge Instructions Diet Discharge Diet: 1800 Calorie Control Diet DC O2, CPAP, BIPAP needs RN Home O2 Qualification: Home O2 Qualification: Is the patient on home oxygen No 05/21/24 12:15 Home O2 Qualification: AT REST 1- Pulse Ox at rest 88 05/21/24 12:15 2- Pulse Ox at rest 94 05/21/24 12:15 2- Oxygen Flow Rate at rest 2 05/21/24 12:15 Home O2 Qualification: WITH AMBULATION 1- Pulse Ox with ambulation 90 05/21/24 12:15 1- Oxygen Flow Rate with 2 05/21/24 12:15 ambulation 2- Pulse Ox with ambulation 92 05/20/24 10:15 2- Oxygen Flow Rate with 3 05/20/24 10:15 ambulation Home O2 Discharge instructions: Yes Type of respiratory needs?: Oxygen Oxygen frequency: Continuous Continuous oxygen liters per minute: 2 L Dressing / Incision Discharge Activity: Return to Normal Activity Weight Bearing Status: Full weight bearing Follow Up Care Test Results: Test results from this visit will be discussed in further detail at your follow- up appointment, if applicable. Discharge Plan Admission Admit Date/Time: 05/17/24 16:07 Primary Reason for Your Visit: exacerbation of COPD, pneumonia Attending Provider: Baron Dhillon Primary Care Provider: Krishna Lane Consulting Providers: Jose Casey; Jackie Rose Instructions Additional Instructions / Restrictions: Do not take Alleve, Ibuprofen, or Naprosyn Take Tylenol only for pain Discharge Orders/Prescriptions Prescriptions: New furosemide 40 mg Tablet 40 mg PO DAILY Qty: 30 0RF Eliquis 5 mg Tablet 5 mg PO BID Qty: 60 0RF levofloxacin 500 mg tablet 500 mg PO DAILY Qty: 3 0RF Rx Instructions: start on 05/22/23 Continued magnesium 250 mg tablet 250 mg PO QDAY omega-3 fatty acids 1,000 mg capsule 1,000 mg PO QDAY atorvastatin [Lipitor] 20 mg tablet 20 mg PO QDAY cholecalciferol (vitamin D3) 50 mcg (2,000 unit) tablet 50 mcg PO DAILY insulin aspart U-100 [Novolog FlexPen U-100 Insulin] 100 unit/mL (3 mL) insulin pen 36 unit subcut QACLUNCH insulin aspart U-100 [Novolog FlexPen U-100 Insulin] 100 unit/mL (3 mL) insulin pen 54 unit subcut QACDINNER potassium chloride 20 mEq tablet extended release 20 meq PO DAILY Ozempic 0.25 mg or 0.5 mg (2 mg/3 mL) pen injector 0.25 mg subcut WE Rx Instructions: for 4 weeks Darzalex 20 mg/mL solution .Route Rx Instructions: Given at [facility] once a month acyclovir 400 mg tablet 400 mg PO BID losartan 50 mg tablet 50 mg PO DAILY Qty: 90 2RF (DME) handicap placard See Rx Instructions .Route .MEDSUPPLY Qty: 1 0RF Rx Instructions: Duration for 5 years Jardiance 10 mg tablet 10 mg PO DAILY albuterol sulfate [Ventolin HFA] 90 mcg/actuation HFA aerosol inhaler 2 puff INHALATION Q4H PRN (Reason: breathing) Rx Instructions: administer with spacer insulin degludec [Tresiba U-100 Insulin] 100 unit/mL solution 60 unit subcut DAILY ondansetron HCl 8 mg tablet 8 mg PO Q8H PRN (Reason: nausea and vomiting) diltiazem HCl 240 mg capsule,extended release 24hr 240 mg PO DAILY insulin aspart U-100 [Novolog FlexPen U-100 Insulin] 100 unit/mL (3 mL) insulin pen 22 unit subcut DAILY insulin degludec [Tresiba FlexTouch U-100] 100 unit/mL (3 mL) insulin pen 60 unit subcut 1200 insulin degludec [Tresiba FlexTouch U-100] 100 unit/mL (3 mL) insulin pen 42 unit subcut DINNER metformin 1,000 mg tablet 1,000 mg PO BIDAC tizanidine 4 mg tablet 4 - 6 mg PO TID PRN (Reason: muscle spasticity) Patient Comments: [NO ORIGINAL SIG] pantoprazole 40 mg tablet,delayed release (DR/EC) 40 mg PO QAM Qty: 90 1RF Trelegy Ellipta 200-62.5-25 mcg blister with device 1 inh inhalation DAILY Qty: 90 3RF Discontinued dexamethasone 4 mg tablet 4 mg PO DAILY Patient Comments: TAKE 2 TABLETS MORNING OF DAZALEX TREATMENT naproxen 375 mg tablet 375 mg PO BID Referrals / Follow Up: Krishna Lane DO [Primary Care Provider] - Within 2 Weeks Disposition Disposition (needs filled in before D/C Order can be placed): Home, Self Care
[2024-05-21] MEDS: Insulin Lispro 100 UNIT/ML INSULN.PEN SC (11:31)
[2024-05-21 11:51] LABS: Bedside Glucose 161 mg/dL (74-106)
--- NOTE | 2024-05-21 13:36 | DS.PCM_ITS ---
Providers Date of Admission: 05/17/24 Date of Discharge: 05/21/24 Primary Care Physician: Dr. Krishna Lane DO Reason For Visit: PNEUMONIA, UNSPECIFIED ORGANISM Diagnosis Discharge Diagnosis (1) Atrial fibrillation: Status: Acute Code(s): I48.91 - Unspecified atrial fibrillation Qualifiers: Atrial fibrillation type: paroxysmal Qualified Code(s): I48.0 - Paroxysmal atrial fibrillation (2) Pleural effusion, bilateral: Status: Acute Code(s): J90 - Pleural effusion, not elsewhere classified (3) Bilateral lower extremity edema: Status: Acute Code(s): R60.0 - Localized edema (4) Hypoxia: Status: Acute Code(s): R09.02 - Hypoxemia Plan 1. Acute exacerbation of COPD #2 community-acquired pneumonia-felt to be bacterial in nature #3 new onset atrial fibrillation #4 type 2 diabetes #5 hypoxia secondary to #1 #6 acute on chronic congestive heart failure with preserved ejection fraction Medications at Discharge Home Medications atorvastatin 20 mg tablet (Lipitor) 20 mg PO QDAY cholesterol 08/19/17 magnesium 250 mg tablet 250 mg PO QDAY supplement 08/19/17 omega-3 fatty acids 1,000 mg capsule 1,000 mg PO QDAY supplement 08/19/17 cholecalciferol (vitamin D3) 50 mcg (2,000 unit) tablet 50 mcg PO DAILY supplement 05/14/22 handicap placard #1 ea 01/18/23 losartan 50 mg tablet 50 mg PO DAILY #90 tabs 01/18/23 empagliflozin 10 mg tablet (Jardiance) 10 mg PO DAILY 02/23/23 daratumumab 20 mg/mL intravenous solution (Darzalex) mg .Route 12/06/23 potassium chloride 20 mEq tablet,extended release 20 meq PO DAILY 12/06/23 semaglutide 0.25 mg or 0.5 mg (2 mg/3 mL) subcutaneous pen injector (Ozempic) 0.25 mg subcut WE 12/06/23 acyclovir 400 mg tablet 400 mg PO BID 12/12/23 insulin aspart U-100 100 unit/mL (3 mL) subcutaneous pen (Novolog FlexPen U-100 Insulin aspart) 36 unit subcut QACLUNCH diabetes 12/12/23 insulin aspart U-100 100 unit/mL (3 mL) subcutaneous pen (Novolog FlexPen U-100 Insulin aspart) 54 unit subcut QACDINNER diabetes 12/12/23 pantoprazole 40 mg tablet,delayed release 40 mg PO QAM #90 tabs 01/04/24 fluticasone fur. 200 mcg-umeclid 62.5 mcg-vilant 25 mcg inhalat.powder (Trelegy Ellipta) 1 inh inhalation DAILY #90 days 02/09/24 albuterol sulfate 90 mcg/actuation aerosol inhaler (Ventolin HFA) 2 puff inhalation Q4H PRN breathing 02/28/24 insulin degludec 100 unit/mL subcutaneous solution (Tresiba U-100 Insulin) 60 unit subcut DAILY 02/28/24 ondansetron HCl 8 mg tablet 8 mg PO Q8H PRN nausea and vomiting 02/28/24 diltiazem HCl 240 mg capsule,extended release 24 hr 240 mg PO DAILY 05/17/24 insulin aspart U-100 100 unit/mL (3 mL) subcutaneous pen (Novolog FlexPen U-100 Insulin aspart) 22 unit subcut DAILY 05/17/24 insulin degludec 100 unit/mL (3 mL) subcutaneous pen (Tresiba FlexTouch U-100 insulin) 42 unit subcut DINNER 05/17/24 insulin degludec 100 unit/mL (3 mL) subcutaneous pen (Tresiba FlexTouch U-100 insulin) 60 unit subcut 1200 05/17/24 metformin 1,000 mg tablet 1,000 mg PO BIDAC 05/17/24 tizanidine 4 mg tablet 4 - 6 mg PO TID PRN muscle spasticity 05/17/24 apixaban 5 mg tablet (Eliquis) 5 mg PO BID #60 tabs 05/21/24 furosemide 40 mg tablet 40 mg PO DAILY #30 tabs 05/21/24 levofloxacin 500 mg tablet 500 mg PO DAILY #3 tabs 05/21/24 Hospital Course Operations None Procedures 2-D Echocardiogram Summary of Care Provided Minutes Spent on Discharge: 31 Hospital Course: This 74-year-old white male was seen in the emergency room at [facility] with complaints of increasing dyspnea for 5 days. He also complained of discolored sputum production over the past several days. Patient had an oxygen concentrator at home and had been using it over the last several days due to worsening dyspnea, patient stated he was taken off oxygen last year. Workup in the emergency room included an EKG which showed an irregular rhythm with PVCs. CBC showed an elevated white blood cell count at 13.2, hemoglobin was 11.2, chemistry panel was unremarkable, beta natruretic peptide was elevated at 199.6. Chest x-ray showed cardiomegaly with congestive heart failure and blunting of the left costophrenic angle and left basilar atelectasis and/or infiltrate, chest CTA was performed which showed no pulmonary embolism, there was noted to be bronchial wall thickening indicative of possible asthma or atypical/viral infection with associated infectious/inflammatory process of the left upper and lower lobes. Patient was admitted to PCU, he was placed on IV antibiotics and given diuretics for CHF, echocardiogram was obtained which showed a normal ejection fraction and mild to moderate aortic stenosis. Patient required supplemental oxygen during his hospital stay and at the time of discharge home, he required oxygen at 2 L/min during ambulation and at rest. Patient was placed on Eliquis. On 05/21/2024, patient was seen and examined: On examination he appeared in good health and spirits. Vital signs as documented. Skin warm and dry and without overt rashes. Neck without JVD, neck was supple, trachea midline, thyroid was normal. Lungs clear bilaterally, normal air movement was noted. Heart exam notable for irregular rhythm, normal sounds and absence of murmurs, rubs or gallops. Abdomen unremarkable and without evidence of organomegaly, masses, or abdominal aortic enlargement. Bowel sounds are present, abdomen is not distended. Extremities nonedematous, no cyanosis was noted, no clubbing was noted. Neuro: Cranial nerves II through XII are grossly intact, no focal motor deficits were noted, sensation to light touch and pinprick intact, motor exam 5/5 throughout. Psych: Patient is alert and oriented x3, he does not appear anxious or depressed, he does not appear agitated. Weight / BMI Weight Weight: 140.6 kg Body Mass Index (BMI) 45.8 ABG / Lab / Microbiology Data 05/21/24 05:41 05/21/24 05:41 Laboratory: Laboratory Results - last 24 hr 05/20/24 21:25: POC Glucose 172 H 05/21/24 05:41: WBC 10.1, RBC 4.80, Hgb 11.2 L, Hct 37.5 L, MCV 78.1 L, MCH 23.3 L, MCHC 29.9 L, RDW Std Deviation 46.2 H, RDW Coeff of Kavya 16.4 H, Plt Count 373, MPV 9.9, Immature Gran % (Auto) 1.300 H, Neut % (Auto) 79.5 H, Lymph % (Auto) 8.7 L, Karnes % (Auto) 8.7, Eos % (Auto) 1.2, Baso % (Auto) 0.6, Absolute Neuts (auto) 8.0 H, Absolute Lymphs (auto) 0.88, Nucleated RBC % 0, Sodium 135 L , Potassium 3.8, Chloride 101, Carbon Dioxide 27.0, Anion Gap 7, BUN 15, C reatinine 0.62 L, Estim Creat Clear Calc 116.47, Est GFR (MDRD) Af Amer 163, Est GFR (MDRD) Non-Af 135, BUN/Creatinine Ratio 24.1 H, Glucose 154 H, Calcium 8.7 05/21/24 11:28: POC Glucose 161 H Microbiology: Microbiology 05/18/24 02:20 Urine, Clean Catch Legionella Antigen - Final 05/18/24 02:20 Urine, Clean Catch Streptococcus pneumoniae Antigen (M - Final 05/17/24 13:26 Mucosa - Nose SARS-CoV-2, Influenza & RSV (PCR) - Final D/C Instructions Discharge Diet: 1800 Calorie Control Diet Weight Bearing Status: Full weight bearing DC O2, CPAP, BIPAP Needs RN Home O2 Qualification: Home O2 Qualification: Is the patient on home oxygen No 05/21/24 12:15 Home O2 Qualification: AT REST 1- Pulse Ox at rest 88 05/21/24 12:15 2- Pulse Ox at rest 94 05/21/24 12:15 2- Oxygen Flow Rate at rest 2 05/21/24 12:15 Home O2 Qualification: WITH AMBULATION 1- Pulse Ox with ambulation 90 05/21/24 12:15 1- Oxygen Flow Rate with 2 05/21/24 12:15 ambulation 2- Pulse Ox with ambulation 92 05/20/24 10:15 2- Oxygen Flow Rate with 3 05/20/24 10:15 ambulation PSN CPAP & BiPAP: BiPAP & CPAP Settings per PSN Mode CPAP 05/21/24 02:00 Bipap Delivery Device Nasal Pillows 05/21/24 02:00 BiPAP Expiratory Pressure 13 05/21/24 02:00 Total Flow Rate 4 05/21/24 02:00 Home O2 Discharge instructions: Yes Type of respiratory needs?: Oxygen Oxygen frequency: Continuous Continuous oxygen liters per minute: 2 L DC home with Oxygen: Yes Home O2 MD Review: I have reviewed the oxygen testing, and the patient qualifies for home oxygen equipment and portability. The patient is mobile in the home and the community. Meaningful Use Info Meaningful Use Meaningful Use Diagnoses (Choose all that apply): CHF CHF GLENNA/ARB ordered at discharge?: Yes Documented LVEF (%): 70 Ischemic Stroke Statin Dosing Therapy Reference: STATIN DOSE THERAPY REFERENCE: * Patients > 75 years receive moderate or high dose statin therapy. * Patients 75 years or YOUNGER should receive HIGH intensity statin dose unless contraindicated. You will be required to document reason for non-treatment if statin daily dose does not meet guidelines. HIGH DOSE STATIN THERAPY DAILY Atorvastatin > than or = to 40 mg Rosuvastatin > than or = to 20 mg Amlodipine + Atorvastatin > than or = to 2.5/40 mg Ezetimibe + Simvastatin 10/80 mg Simvastatin 80mg Discharge Plan Admission Admit Date/Time: 05/17/24 16:07 Primary Reason for Your Visit: exacerbation of COPD, pneumonia Attending Provider: Baron Dhillon Primary Care Provider: Krishna Lane Consulting Providers: Jose Casey; Jackie Rose Instructions Additional Instructions / Restrictions: Do not take Alleve, Ibuprofen, or Naprosyn Take Tylenol only for pain Discharge Orders/Prescriptions Prescriptions: New furosemide 40 mg Tablet 40 mg PO DAILY Qty: 30 0RF Eliquis 5 mg Tablet 5 mg PO BID Qty: 60 0RF levofloxacin 500 mg tablet 500 mg PO DAILY Qty: 3 0RF Rx Instructions: start on 05/22/23 Continued magnesium 250 mg tablet 250 mg PO QDAY omega-3 fatty acids 1,000 mg capsule 1,000 mg PO QDAY atorvastatin [Lipitor] 20 mg tablet 20 mg PO QDAY cholecalciferol (vitamin D3) 50 mcg (2,000 unit) tablet 50 mcg PO DAILY insulin aspart U-100 [Novolog FlexPen U-100 Insulin] 100 unit/mL (3 mL) insulin pen 36 unit subcut QACLUNCH insulin aspart U-100 [Novolog FlexPen U-100 Insulin] 100 unit/mL (3 mL) insulin pen 54 unit subcut QACDINNER potassium chloride 20 mEq tablet extended release 20 meq PO DAILY Ozempic 0.25 mg or 0.5 mg (2 mg/3 mL) pen injector 0.25 mg subcut WE Rx Instructions: for 4 weeks Darzalex 20 mg/mL solution .Route Rx Instructions: Given at [facility] once a month acyclovir 400 mg tablet 400 mg PO BID losartan 50 mg tablet 50 mg PO DAILY Qty: 90 2RF (DME) handicap placard See Rx Instructions .Route .MEDSUPPLY Qty: 1 0RF Rx Instructions: Duration for 5 years Jardiance 10 mg tablet 10 mg PO DAILY albuterol sulfate [Ventolin HFA] 90 mcg/actuation HFA aerosol inhaler 2 puff INHALATION Q4H PRN (Reason: breathing) Rx Instructions: administer with spacer insulin degludec [Tresiba U-100 Insulin] 100 unit/mL solution 60 unit subcut DAILY ondansetron HCl 8 mg tablet 8 mg PO Q8H PRN (Reason: nausea and vomiting) diltiazem HCl 240 mg capsule,extended release 24hr 240 mg PO DAILY insulin aspart U-100 [Novolog FlexPen U-100 Insulin] 100 unit/mL (3 mL) insulin pen 22 unit subcut DAILY insulin degludec [Tresiba FlexTouch U-100] 100 unit/mL (3 mL) insulin pen 60 unit subcut 1200 insulin degludec [Tresiba FlexTouch U-100] 100 unit/mL (3 mL) insulin pen 42 unit subcut DINNER metformin 1,000 mg tablet 1,000 mg PO BIDAC tizanidine 4 mg tablet 4 - 6 mg PO TID PRN (Reason: muscle spasticity) Patient Comments: [NO ORIGINAL SIG] pantoprazole 40 mg tablet,delayed release (DR/EC) 40 mg PO QAM Qty: 90 1RF Trelegy Ellipta 200-62.5-25 mcg blister with device 1 inh inhalation DAILY Qty: 90 3RF Discontinued dexamethasone 4 mg tablet 4 mg PO DAILY Patient Comments: TAKE 2 TABLETS MORNING OF DAZALEX TREATMENT naproxen 375 mg tablet 375 mg PO BID Referrals / Follow Up: Krishna Lane DO [Primary Care Provider] - 06/01/24 12:30 pm Disposition Disposition (needs filled in before D/C Order can be placed): Home, Self Care Charges/Coding Visit Charges Inpatient E&M: 79360 Disch Hosp >30min
--- NOTE | 2024-05-21 14:12 | CASEMGMT ---
Patient has order for discharge. Patient is requiring increase in home oxygen. Script received and referral sent to [facility] via [facility]. Patient is discharging on Eliquis, [employer] called [facility], copay is $523.54. RN CM in to discuss needs at discharge, at bedside. RN CM updated patient regarding Eliquis copay, patient has deductible to meet. RN CM provided patient with Eliquis 30day savings card. RN CM updated patient regarding increase in home oxygen, patient has oxygen tank for at discharge. Patient denies needs or help at discharge. Patient had no further questions or concerns. Discharge plan updated.
--- NOTE | 2024-05-21 14:50 | PHA.DC_ITS ---
Pharmacy [facility] has performed discharge medication reconciliation and counseling for this patient. 1. APIXABAN 5MG PO BID 2. FUROSEMIDE 40MG PO DAILY 3. LEVOFLOXACIN 500MG PO DAILY X 3 DAYS The patient's discharge medication list was reviewed for discrepancies and discrepancies were resolved. The patient was counseled on the following discharge medications and changes in medications for homegoing were reviewed. The Reason for Use, instructions for use, and potential side effects were reviewed for all new medications. The patient's questions regarding all of their medications were answered. The patient was able to verbally demonstrate an understanding of their discharge medications. Medications at Discharge Home Medications atorvastatin 20 mg tablet (Lipitor) 20 mg PO QDAY cholesterol 08/19/17 magnesium 250 mg tablet 250 mg PO QDAY supplement 08/19/17 omega-3 fatty acids 1,000 mg capsule 1,000 mg PO QDAY supplement 08/19/17 cholecalciferol (vitamin D3) 50 mcg (2,000 unit) tablet 50 mcg PO DAILY supplement 05/14/22 handicap placard #1 ea 01/18/23 losartan 50 mg tablet 50 mg PO DAILY #90 tabs 01/18/23 empagliflozin 10 mg tablet (Jardiance) 10 mg PO DAILY 02/23/23 daratumumab 20 mg/mL intravenous solution (Darzalex) mg .Route 12/06/23 potassium chloride 20 mEq tablet,extended release 20 meq PO DAILY 12/06/23 semaglutide 0.25 mg or 0.5 mg (2 mg/3 mL) subcutaneous pen injector (Ozempic) 0.25 mg subcut WE 12/06/23 acyclovir 400 mg tablet 400 mg PO BID 12/12/23 insulin aspart U-100 100 unit/mL (3 mL) subcutaneous pen (Novolog FlexPen U-100 Insulin aspart) 36 unit subcut QACLUNCH diabetes 12/12/23 insulin aspart U-100 100 unit/mL (3 mL) subcutaneous pen (Novolog FlexPen U-100 Insulin aspart) 54 unit subcut QACDINNER diabetes 12/12/23 pantoprazole 40 mg tablet,delayed release 40 mg PO QAM #90 tabs 01/04/24 fluticasone fur. 200 mcg-umeclid 62.5 mcg-vilant 25 mcg inhalat.powder (Trelegy Ellipta) 1 inh inhalation DAILY #90 days 02/09/24 albuterol sulfate 90 mcg/actuation aerosol inhaler (Ventolin HFA) 2 puff inhalation Q4H PRN breathing 02/28/24 insulin degludec 100 unit/mL subcutaneous solution (Tresiba U-100 Insulin) 60 unit subcut DAILY 02/28/24 ondansetron HCl 8 mg tablet 8 mg PO Q8H PRN nausea and vomiting 02/28/24 diltiazem HCl 240 mg capsule,extended release 24 hr 240 mg PO DAILY 05/17/24 insulin aspart U-100 100 unit/mL (3 mL) subcutaneous pen (Novolog FlexPen U-100 Insulin aspart) 22 unit subcut DAILY 05/17/24 insulin degludec 100 unit/mL (3 mL) subcutaneous pen (Tresiba FlexTouch U-100 insulin) 42 unit subcut DINNER 05/17/24 insulin degludec 100 unit/mL (3 mL) subcutaneous pen (Tresiba FlexTouch U-100 insulin) 60 unit subcut 1200 05/17/24 metformin 1,000 mg tablet 1,000 mg PO BIDAC 05/17/24 tizanidine 4 mg tablet 4 - 6 mg PO TID PRN muscle spasticity 05/17/24 apixaban 5 mg tablet (Eliquis) 5 mg PO BID #60 tabs 05/21/24 furosemide 40 mg tablet 40 mg PO DAILY #30 tabs 05/21/24 levofloxacin 500 mg tablet 500 mg PO DAILY #3 tabs 05/21/24
--- NOTE | 2024-05-21 17:16 | PCM.HOSP.N ---
Hospitalist Note Oxygen testing reviewed, patient is ambulatory in the home and community and requires home oxygen with portability
== END 2024-05-21 15:36 | disposition home or self-care (01) | DRG 193 ==
LOC: ED 16:09 → PCU 16:48
PROVIDERS: Student in an Organized Health Care Education/Training Program; Admitting Provider Hospitalist; Emergency Provider Emergency Medicine; PCP Family Medicine; Referring Provider Emergency Medicine; Visit Provider Internal Medicine
DX: J18.9 Pneumonia, unspecified organism (principal); I50.33 Acute on chronic diastolic (congestive) heart failure; C90.00 Multiple myeloma not having achieved remission; J44.0 Chronic obstructive pulmonary disease with (acute) lower respiratory infection; Z68.42 Body mass index [BMI] 45.0-49.9, adult; J44.1 Chronic obstructive pulmonary disease with (acute) exacerbation; E11.9 Type 2 diabetes mellitus without complications; I11.0 Hypertensive heart disease with heart failure; I35.0 Nonrheumatic aortic (valve) stenosis; I48.0 Paroxysmal atrial fibrillation; Z79.4 Long term (current) use of insulin; E66.01 Morbid (severe) obesity due to excess calories; I25.10 Atherosclerotic heart disease of native coronary artery without angina pectoris; G47.33 Obstructive sleep apnea (adult) (pediatric); Z79.84 Long term (current) use of oral hypoglycemic drugs; Z79.85 Long-term (current) use of injectable non-insulin antidiabetic drugs; Z79.51 Long term (current) use of inhaled steroids; Z87.891 Personal history of nicotine dependence; Z79.899 Other long term (current) drug therapy
CPT/HCPCS: 36415; 71045; 71275; 80048; 80053; 82962; 83036; 83735; 83880; 84443; 85025; 85379; 87449; 87631; 93005; 93306; 94640; 94660; 94668; 99285; Q9957; Q9967; A4216; C8929; J1940

== ENCOUNTER → 2024-05-28 | Outpatient (CLI) | payer MEDICARE, OTHER, SELFPAY ==
--- NOTE | 2024-05-28 11:30 | RAD_ITS ---
EXAM: XR Thoracic Spine, 2 Views CLINICAL INDICATION: TECHNIQUE: Frontal and lateral views of the thoracic spine. COMPARISON: No relevant prior studies available. FINDINGS: VERTEBRAE: Unremarkable. No acute fracture. Normal alignment. DISC SPACES: No acute findings. No significant narrowing. SOFT TISSUES: Unremarkable. RAD/Thoracic Spine 2 Views IMPRESSION: No acute fracture. Reading [facility]
== END | disposition home or self-care (01) ==
PROVIDERS: PCP Family Medicine; Referring Provider Anesthesiology; Visit Provider Anesthesiology
DX: M47.9 Spondylosis, unspecified (principal)
CPT/HCPCS: 72070

== ENCOUNTER → 2024-06-20 | Outpatient (CLI) | payer MEDICARE, OTHER, SELFPAY | END | disposition home or self-care (01) | LOC: PSN 11:54 | PROVIDERS: PCP Family Medicine; Referring Provider Physician Assistant Medical; Visit Provider Physician Assistant Medical | DX: I48.0 Paroxysmal atrial fibrillation (principal) | CPT/HCPCS: 93225; 93226 ==

== ENCOUNTER → 2024-06-25 | Outpatient (CLI) | payer MEDICARE, OTHER, SELFPAY | END | disposition home or self-care (01) | LOC: SL 20:15 | PROVIDERS: PCP Family Medicine; Visit Provider Nurse Practitioner Acute Care | DX: G47.33 Obstructive sleep apnea (adult) (pediatric) (principal) | CPT/HCPCS: 95811 ==

== ENCOUNTER → 2024-07-03 | Outpatient (CLI) | payer MEDICARE, OTHER, SELFPAY ==
--- NOTE | 2024-07-03 | PET_ITS ---
EXAM: PET/CT TUMOR BASE -THIGH SUBS CLINICAL HISTORY: HEMATOLOGIC MALIGNANCY; MONITOR COMPARISON: PET-CT of 09/06/2022. TECHNIQUE: F-18 FDG PET-CT, from the skull base to the mid thighs. Dose: 13.89 mCi F-18 FDG intravenous. FINDINGS: Neck: No focus of abnormal hypermetabolic activity is seen. Chest: Small bilateral pleural effusions are noted. Compressive atelectasis adjacent to the right pleural effusion is seen, dependent. Abdomen pelvis: No concerning area of abnormal hypermetabolic activity is seen. Bones: No concerning area of abnormal hypermetabolic activity is seen. Additional: Prominent degenerative changes of the spine are seen. PET/PET/CT Tumor Base -Thigh Subs IMPRESSION: 1. Small bilateral pleural effusions, with compressive atelectasis adjacent to the right pleural fluid collection. 2. No concerning area of abnormal hypermetabolic activity is seen. Reading Location: [address]
== END | disposition home or self-care (01) ==
LOC: ONC 08:41
PROVIDERS: PCP Family Medicine; Referring Provider Internal Medicine Hematology & Oncology; Visit Provider Internal Medicine Hematology & Oncology
DX: C18.7 Malignant neoplasm of sigmoid colon (principal); C90.00 Multiple myeloma not having achieved remission; R07.81 Pleurodynia
CPT/HCPCS: 78815; A9552

== ENCOUNTER → 2024-07-06 | Outpatient (CLI) | payer MEDICARE, OTHER, SELFPAY | END | disposition home or self-care (01) | LOC: PSN 10:45 | PROVIDERS: PCP Family Medicine; Referring Provider Nurse Practitioner Acute Care; Visit Provider Nurse Practitioner Acute Care | DX: J44.9 Chronic obstructive pulmonary disease, unspecified (principal) | CPT/HCPCS: 94060; 94726; 94729 ==

== ENCOUNTER → 2024-07-27 | Outpatient (CLI) | payer MEDICARE, OTHER, SELFPAY ==
[2024-07-27 12:49] LABS: Hemoglobin A1c 6.7 % (<=5.6)
[2024-07-27 13:20] LABS: ALB/GLOB Ratio 1.6 RATIO (0.9-2.4); AST(SGOT) 17 U/L (<=37); Alanine Aminotransfer ALT/SGPT 11 U/L (<=46); Albumin, Serum 4.1 g/dL (3.4-4.8); Alkaline Phosphatase 127 U/L (40-129); Anion Gap 12 (5-15); BUN 14 mg/dL (4-19); BUN/Creat Ratio 17.5 RATIO (10-20); Calcium,Total 9.1 mg/dL (7.6-11.0); Carbon Dioxide 26.7 mmol/L (21.0-32.0); Chloride 104 mmol/L (98-108); Cholesterol 113 mg/dL (<=200); Creatinine, Serum 0.77 mg/dL (0.70-1.20); EST Glomerular Filtration Rate 95 (>60); Globulin 2.5 g/dL (2.2-4.2); Glucose 124 mg/dL (70-99); High Density Lipoprotein 39 mg/dL; Low Density Lipoprotein Calc. 61 mg/dL; Potassium 4.6 mmol/L (3.3-5.1); Protein, Total 6.6 g/dL (5.9-8.4); Sodium Level 142 mmol/L (133-145); Total Bilirubin 0.75 mg/dL (0.00-1.30); Triglycerides 62 mg/dL; Very Low Density Lipoprotein 12 mg/dL (5-40); cholesterol:hdl ratio screen 2.88
== END | disposition home or self-care (01) ==
LOC: BIMLAB 11:24
PROVIDERS: PCP Family Medicine; Referring Provider Physician Assistant; Visit Provider Physician Assistant
DX: E11.65 Type 2 diabetes mellitus with hyperglycemia (principal); E78.2 Mixed hyperlipidemia
CPT/HCPCS: 36415; 80053; 80061; 83036

== ENCOUNTER 2024-08-01 11:40 | Inpatient (IN) | payer MEDICARE, OTHER, SELFPAY ==
[2024-08-01] VITALS (12 sets, daily range): BP systolic 120–174; BP diastolic 49–110; PULSE 71–96; RESP 16–20; TEMP 36.6–37.2; O2SAT 79–98; BMI 39.7; BMI 39.9
--- NOTE | 2024-08-01 11:57 | ED.VIS.DYS ---
HPI History of Present Illness Chief Complaint: Shortness of Breath Informant: patient Onset/Context/Timing Onset: Days Context: gradual Timing: Continuous Quality: Positive for Dyspnea on exertion Current Severity: Mild Maximum Severity: Mild Worsened by: Exertion Relieved by: Oxygen Associated Symptoms Negative for cough Chest Pain: Positive for None Narrative Narrative: 74-year-old male complaining shortness of breath. Constantly on 3 L of oxygen at home. History of COPD, A-fib on Eliquis, anemia, CHF, diabetes and multiple myeloma. Today was seen by his oncologist and sent to the emergency department due to shortness of breath. He denies any chest pain. He denies any fever. He denies any new cough. PE Risk Factors: Positive for Cancer and Prior DVT or PE; Negative for Recent immobilization, Recent surgery or Recent travel Prior similar symptoms: Yes Recent Illness/Hospitalization: No PFSH PFSH Medical History Hypoxia PAF (paroxysmal atrial fibrillation) Bilateral lower extremity edema Atrial fibrillation Pleural effusion, bilateral Colon cancer Wears hearing aid Wears glasses Cancer Alcohol use History of steroid therapy Insulin dependent diabetes mellitus Anemia High cholesterol Former smoker CPAP (continuous positive airway pressure) dependence Sleep apnea On home oxygen therapy Shortness of breath on exertion History of edema History of Holter monitoring History of echocardiogram History of stress test Cardiology follow-up encounter History of CHF (congestive heart failure) History of atrial fibrillation History of irregular heartbeat Rash Hx of multiple myeloma Multiple myeloma Type 2 diabetes mellitus History of left heart catheterization (LHC) (~01/27/11) Mixed hyperlipidemia Essential hypertension Smoldering multiple myeloma Measles Chicken pox Erectile dysfunction Palpitations Murmur Chest pain Abnormal electrocardiogram Atherosclerotic heart disease of [place] coronary artery without angina pectoris SOB (shortness of breath) COPD (chronic obstructive pulmonary disease) Obesity MESA (dyspnea on exertion) CONCHA (obstructive sleep apnea) Home Medications ?Medication ?Instructions ?Recorded ?Last Taken ?Type atorvastatin 20 mg tablet (Lipitor) 20 mg PO QDAY cholesterol 08/19/17 07/31/24 History magnesium 250 mg tablet 250 mg PO QDAY supplement 08/19/17 07/31/24 History omega-3 fatty acids 1,000 mg 1,000 mg PO QDAY supplement 08/19/17 07/31/24 History capsule cholecalciferol (vitamin D3) 50 50 mcg PO DAILY supplement 05/14/22 07/31/24 History mcg (2,000 unit) tablet handicap placard #1 ea 01/18/23 Unknown Rx losartan 50 mg tablet 50 mg PO DAILY #90 tabs 01/18/23 07/31/24 Rx empagliflozin 10 mg tablet 10 mg PO DAILY 02/23/23 07/31/24 History (Jardiance) daratumumab 20 mg/mL intravenous mg .Route QMONTH 12/06/23 07/02/24 History solution (Darzalex) potassium chloride 20 mEq 20 meq PO DAILY 12/06/23 07/31/24 History tablet,extended release acyclovir 400 mg tablet 400 mg PO BID 12/12/23 07/31/24 History insulin aspart U-100 100 unit/mL 36 unit subcut QACLUNCH diabetes 12/12/23 07/31/24 History (3 mL) subcutaneous pen (Novolog FlexPen U-100 Insulin aspart) insulin aspart U-100 100 unit/mL 54 unit subcut QACDINNER diabetes 12/12/23 07/31/24 History (3 mL) subcutaneous pen (Novolog FlexPen U-100 Insulin aspart) fluticasone fur. 200 mcg-umeclid 1 inh inhalation DAILY #90 days 02/09/24 07/31/24 Rx 62.5 mcg-vilant 25 mcg inhalat.powder (Trelegy Ellipta) insulin degludec 100 unit/mL 60 unit subcut DAILY 02/28/24 07/31/24 History subcutaneous solution (Tresiba U-100 Insulin) ondansetron HCl 8 mg tablet 8 mg PO Q8H PRN nausea and vomiting 02/28/24 08/01/24 History insulin aspart U-100 100 unit/mL 22 unit subcut DAILY 05/17/24 07/31/24 History (3 mL) subcutaneous pen (Novolog FlexPen U-100 Insulin aspart) insulin degludec 100 unit/mL (3 54 unit subcut DINNER 05/17/24 07/31/24 History mL) subcutaneous pen (Tresiba FlexTouch U-100 insulin) insulin degludec 100 unit/mL (3 60 unit subcut 1200 05/17/24 07/31/24 History mL) subcutaneous pen (Tresiba FlexTouch U-100 insulin) metformin 1,000 mg tablet 1,000 mg PO BIDAC 05/17/24 07/31/24 History tizanidine 4 mg tablet 4 - 6 mg PO TID PRN muscle 05/17/24 Unknown History spasticity zoledronic acid 4 mg/5 mL See Rx Instructions .Route .COMPLEX 06/01/24 06/25/24 History intravenous solution dexamethasone 4 mg tablet 8 mg PO .COMPLEX 06/07/24 08/01/24 History apixaban 5 mg tablet (Eliquis) 5 mg PO BID #180 tabs 06/19/24 07/31/24 Rx torsemide 10 mg tablet 10 mg PO QAM #30 tabs 06/20/24 07/31/24 Rx diltiazem HCl 240 mg 240 mg PO DAILY #90 caps 06/26/24 07/31/24 Rx capsule,extended release 24 hr albuterol sulfate 90 mcg/actuation 1 puff inhalation Q4H PRN 06/28/24 07/31/24 Rx aerosol inhaler (Ventolin HFA) breathing #8.5 grams pantoprazole 40 mg tablet,delayed 40 mg PO QAM #90 tabs 07/24/24 07/31/24 Rx release acetaminophen 500 mg capsule 500 mg PO Q6H PRN fever or pain 08/01/24 08/01/24 History diphenhydramine HCl 25 mg capsule 25 mg PO .COMPLEX 08/01/24 08/01/24 History (Aler-Cap) famotidine 20 mg tablet (Acid 20 mg PO DAILY 08/01/24 08/01/24 History Controller) Allergy/AdvReac Type Severity Reaction Status Date / Time Penicillins Allergy Mild Rash Verified 08/01/24 11:42 Family History Father Myocardial infarction Mother Breast cancer Surgical History Status post recent transurethral resection of prostate (~02/02/23) Hx of bilateral cataract extraction Hx of esophagogastroduodenoscopy History of cataract extraction Bone spur removal Social History Smoking Status: Former smoker quit date: 04/25/02 pack-years: 31 alcohol intake: current alcohol intake frequency: holidays/special occasions only substance use type: does not use caffeine: Yes Type: coffee Number of servings: 5 ROS ROS ED ROS Narrative Shortness of breath. Constitutional Constitutional ED: Denies chills or fever(s) Eyes Eyes: Denies blurry vision ENT ENT ED: Denies ear pain Cardiovascular Cardiovascular: Denies chest pain Respiratory/Chest Respiratory/Chest: Reports dyspnea and dyspnea on exertion Gastrointestinal Gastrointestinal: Denies abdominal pain Genitourinary Genitourinary ED: Denies dysuria or hematuria Musculoskeletal Musculoskeletal: Denies arthralgias Integumentary Denies abscess Neurologic Neurologic: Denies headache(s) Psychiatric Psychiatric: Denies anxiety or depression Endocrine Endocrinology: Denies cold intolerance Hematologic/Lymphatic Hematologic/Lymphatic: Denies easy bleeding, easy bruising or lymphadenopathy Allergic/Immunologic Allergic/Immunologic ED: Denies mouth swelling, tongue swelling or urticaria EXAM Physical Exam Narrative Exam Narrative: 74-year-old male vital signs are stable. On 3 L of oxygen his pulse ox is in the low 80s. He does not look septic or toxic. He is sitting upright in bed. present in the room. H EENT exam pupils round reactive light. Moist mucous membranes. Neck nontender no JVD. No lymphadenopathy. Lungs clear to auscultation bilaterally. Heart A-fib rate in the 70s. Abdomen soft nontender. Moving all 4 extremities. 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 Dorsi plantarflexion intact. Normal strength. Calves are nontender without edema or cords. Back nontender. Neurologically is awake alert answering questions and following commands. Const Vital Signs: 08/01/24 11:41 08/01/24 11:43 08/01/24 11:44 Temperature 98.7 F 98.7 F Temperature Source Oral Oral Pulse Rate 73 73 Respiratory Rate 20 H 20 H Respiratory Effort Respiratory Pattern Blood Pressure 161/64 H 161/64 H Blood Pressure Mean 96 96 Pulse Ox 79 90 79 Oxygen Delivery Method Nasal Cannula Nasal Cannula Nasal Cannula Oxygen Flow Rate (L/min) 3 6 3 08/01/24 12:05 08/01/24 12:08 08/01/24 12:09 Temperature Temperature Source Pulse Rate 71 Respiratory Rate 16 Respiratory Effort Short of Breath Respiratory Pattern Normal Tachypnea Blood Pressure Blood Pressure Mean Pulse Ox 90 Oxygen Delivery Method Nasal Cannula Oxygen Flow Rate (L/min) 6 08/01/24 12:44 08/01/24 12:44 Temperature 98.6 F Temperature Source Oral Pulse Rate 96 89 Respiratory Rate 18 16 Respiratory Effort Respiratory Pattern Blood Pressure 144/49 H 120/86 H Blood Pressure Mean 80 97 Pulse Ox 93 98 Oxygen Delivery Method Room Air Room Air Oxygen Flow Rate (L/min) Positive well nourished and well developed; Negative for cachectic, contractures or unkempt General Appearance ED: well developed and NAD; Negative for unkempt, cachectic, contractures or pallor Nutritional Appearance: Negative for cachectic HEENT Reports moist mucous membranes atraumatic; Negative for trauma or tenderness Eyes PERRL and EOMs intact bilaterally Neck no lymphadenopathy, supple, no meningeal signs and no JVD General: Negative for tenderness Lymph Lymphatic: Negative for other Resp normal respiratory effort and clear to auscultation bilaterally Auscultation: Negative for rales, rhonchi, wheezes or diminished lung sounds Cardio regular rate, S1 normal heart sound, S2 normal heart sound and no murmurs; Negative for regular rhythm Cardio Narrative: A-fib rate in the 70s. Rhythm: abnormal rhythm GI non-tender, non-distended and no masses Palpation: soft; Negative for tender, guarding or rebound tenderness present Back/Spine no CVA tenderness and normal to inspection Extremity normal to inspection General Extremety ED: Negative for edema or tenderness General Extremity: Negative for edema Neuro oriented x3 and CN's II-XII intact bilaterally Sensorium / Orientation: alert, oriented to person, oriented to place and oriented to time; Negative for orientation impaired, confused, lethargic or stuporous Speech: speech normal Sensory Exam: sensory level loss detected Motor Exam: strength 5/5 throughout Psych mental status grossly normal Appearance: Negative for unkempt Attitude: No agitated Mood & Affect: Negative for depressed, anxious or tearful Thought Process: normal thought process Skin no wounds and skin turgor normal General Skin Exam: Negative for jaundice or pallor Lesions: no lesions Rashes: no rashes Trauma: Negative for abrasion, laceration or puncture MDM MDM MDM Narrative Medical decision making narrative: 74-year-old male with shortness of breath. Chronically on 3 L at home. No cough. No fever. No chest pain. Known history of A-fib on the blood thinner Eliquis. Known history of COPD currently not wheezing. Differential would include COPD rule pneumonia ruled CHF versus other etiologies. Cardiac workup with a BNP and a chest x-ray. He had labs done recently at the [facility] which he showed me works are pretty much his baseline. Repeat exam patient is doing well at 1:05 PM. Given his chest x-ray and his labs I think is secondary to pulmonary edema. Patient be given Lasix. Clinically he has pneumonia. No fever. No cough. I will discuss with the hospitalist about admission. History & Record Review Discussion w/independent historian: Patient and Family Additional record(s) reviewed:: Prior inpatient record, Prior outpatient record, Prior ED visit and Prior labs Lab Data Attestation: I reviewed the patient's lab results. Lab results narrative: CBC shows white count 13.4. H&H 10.1 and 34.5. Platelets 395. Chemistries show a gap of 11. Normal BUN of 14 creatinine 0.73. Glucose 168. Initial troponin 39. BT REINSTATEMENT CLERK is 1,468. Chest x-ray is consistent with CHF. Labs: Laboratory Results - last 24 hr 08/01/24 12:04 WBC 13.4 H RBC 4.49 L Hgb 10.1 L Hct 34.5 L MCV 76.8 L MCH 22.5 L MCHC 29.3 L RDW Std Deviation 48.9 H RDW Coeff of Kavya 17.8 H Plt Count 395 MPV 10.2 Immature Gran % (Auto) 0.800 Neut % (Auto) 92.2 H Lymph % (Auto) 3.3 L [place] % (Auto) 2.5 Eos % (Auto) 0.7 Baso % (Auto) 0.5 Absolute Neuts (auto) 12.3 H Absolute Lymphs (auto) 0.44 L Nucleated RBC % 0 Sodium 139 Potassium 4.5 Chloride 104 Carbon Dioxide 24.3 Anion Gap 11 BUN 14 Creatinine 0.73 Est GFR (MDRD) Non-Af 97 BUN/Creatinine Ratio 19.1 Glucose 168 H Calcium 8.8 Troponin T High Sens 39 H NT pro BNP II 1468 H Radiography Chest X-Ray - ED: 2 View, Read by ED Physician and Read by Radiologist Diagnostic Testing: Clinical Impression(s) from Imaging Studies Chest X-Ray 08/01/24 12:18 IMPRESSION: Suspicion of left lower lobe infiltrate. Mild cardiac enlargement. Blunting of the lateral costophrenic angles due to pleural fluid and or thickening. Reading Location: [place] [address] Chest x-ray, 2 views, AP and lateral, interpreted by myself and the radiologist. I see bilateral vascular congestion consistent with CHF and with his history. And exam. Radiologist is concerned for a possible left lower lobe infiltrate. Patient has no fever and no cough. Rhythm Strip Rhythm Strip: A-fib Rate: 63 Ectopy: None EKG Initial EKG: Attestation: I personally reviewed and interpreted this EKG as follows: Interpretation: Atrial Fibrillation Comments: A-fib rate is 63. No acute ST elevation or pression. Inverted T waves in V4 through V6. Discharge Plan Dx/Rx/DC Orders Clinical Impression: Acute dyspnea, Hypoxia, CHF (congestive heart failure), History of COPD, Elevated troponin, Chronic a-fib, Chronic anticoagulation, History of multiple myeloma Disposition Disposition: [facility]
--- NOTE | 2024-08-01 12:00 | EKG12_ITS ---
Test Reason : SOB Blood Pressure : */* mmHG Vent. Rate : 63 BPM Atrial Rate : * BPM P-R Int : * ms QRS Dur : 106 ms QT Int : 424 ms P-R-T Axes : * 4 164 degrees QTcB Int : 433 ms Atrial fibrillation Septal infarct , age undetermined T wave abnormality, consider lateral ischemia Abnormal ECG Confirmed by JUAN CARLOS BROWN, GOSIA ([id number]), editorial specialist TATI PARKER ([id number]) on 08/02/2024 8:36:57 AM Referred By: Confirmed By: GOSIA RANGEL MD
[2024-08-01] MEDS: Ipratropium/Albuterol Sulfate 3 ML AMPUL.NEB INHALATION (12:02)
[2024-08-01 12:12] LABS: Absolute Lymphocyte Count 0.44 X10^3/uL (0.83-4.51); Absolute Neutrophil Count 12.3 X10^3/uL (2.0-7.7); Basophil# 0.07 X10^3/uL; Basophil% 0.5 % (0-1); Eosinophil# 0.09 X10^3/uL; Eosinophils% 0.7 % (0-5); Hematocrit 34.5 % (40-54); Hemoglobin 10.1 g/dL (13.0-16.5); Lymphocyte # 0.44 X10^3/ul (0.83-4.51); Lymphocyte % 3.3 % (19-41); Mean Corp Hgb Conc 29.3 g/dL (32-36); Mean Corpuscular Hgb 22.5 pg (27.0-32.0); Mean Corpuscular Volume 76.8 fL (80-94); Mean Platelet Vol. 10.2 fl (6.2-12.0); Monocyte# 0.34 X10^3/uL; Monocyte% 2.5 % (0-10); NRBC Flagged by Analyzer 0 % (0-5); Neutrophil # 12.34 X10^3/uL (2.7-7.7); Neutrophil % 92.2 % (47-70); POSITIVE DIFFERENTIAL YES; Platelet Count 395 K/mm3 (150-450); RBC Distribution Width CV 17.8 % (11.6-14.6); RBC Distribution Width SD 48.9 fl (35.1-43.9); Red Blood Count 4.49 M/mm3 (4.6-6.2); White Blood Count 13.4 K/mm3 (4.4-11.0)
--- NOTE | 2024-08-01 12:18 | RAD_ITS ---
PROCEDURE: CHEST PA AND LATERAL 08/01/2024 REASON FOR EXAM: CHEST PAIN TECHNIQUE: Frontal and lateral views of the chest. COMPARISON: CT chest dated 05/17/2024 FINDINGS: Lungs: Prominent markings in the left lower lobe concerning for infiltrate. Pleura: Blunting of the lateral costophrenic angles. Heart: Mild cardiac enlargement Mediastinum/Ana: Unremarkable. Great vessels: Atherosclerotic aorta Bones/soft tissues: Multilevel spondylosis. Cardiac monitoring leads overlie the chest wall RAD/Chest PA and Lateral IMPRESSION: Suspicion of left lower lobe infiltrate. Mild cardiac enlargement. Blunting of the lateral costophrenic angles due to pleural fluid and or thicken ing. Reading Location: [place] [address]
[2024-08-01 12:38] LABS: Pro- Brain NATRIURETIC PEPTIDE 1468 pg/mL (<=900); Troponin T High Sensitivity 39 ng/L (<=22)
[2024-08-01 12:43] LABS: Anion Gap 11 (5-15); Calcium,Total 8.8 mg/dL (7.6-11.0); Carbon Dioxide 24.3 mmol/L (21.0-32.0); Chloride 104 mmol/L (98-108); Creatinine, Serum 0.73 mg/dL (0.70-1.20); EST Glomerular Filtration Rate 97 (>60); Glucose 168 mg/dL (70-99); Potassium 4.5 mmol/L (3.3-5.1); Sodium Level 139 mmol/L (133-145)
[2024-08-01 12:56] LABS: BUN 14 mg/dL (4-19); BUN/Creat Ratio 19.1 RATIO (10-20)
[2024-08-01] MEDS: Furosemide 20 MG/2 ML VIAL IV (13:38)
--- NOTE | 2024-08-01 14:24 | PCM.HP.STD ---
[facility] - General General Date of Admission: 08/01/24 HPI Narrative CYN MARTINEZ, is a 74 M who presents to the hospital from his oncologist office with acute on chronic hypoxic respiratory insufficiency. Since his episode of pneumonia in April he has been wearing 2 L of oxygen continuously. Though he was told that if he was feeling short of breath he could bump it up to 3 which is what has been wearing for the last couple of weeks because he did not see a reason to go back down. He receives monthly chemo infusions for his multiple myeloma and was at his oncologist office today when he was in the 70s on his normal oxygen requirement. He denies any weight gain, no fevers, no chills, no productive cough. Chest x-ray shows fluffy infiltrates and there was a concern for left lower lobe consolidation and he does have a leukocytosis of 13.4 but no other signs of pneumonia. His BNP elevated in the setting of his chronic diastolic CHF. He did have an echo back in April 2024 with an EF of 70% and mild to moderate aortic stenosis. He was given a dose of Lasix in the ER. He does state that he has not been taking his torsemide regularly because he has been watching his great [employer] and they only have 1 bathroom in the house, also while he does follow a low-sodium diet he has not been following any kind of fluid restriction. [facility] Medical History Hypoxia PAF (paroxysmal atrial fibrillation) Bilateral lower extremity edema Atrial fibrillation Pleural effusion, bilateral Colon cancer Wears hearing aid Wears glasses Cancer Alcohol use History of steroid therapy Insulin dependent diabetes mellitus Anemia High cholesterol Former smoker CPAP (continuous positive airway pressure) dependence Sleep apnea On home oxygen therapy Shortness of breath on exertion History of edema History of Holter monitoring History of echocardiogram History of stress test Cardiology follow-up encounter History of CHF (congestive heart failure) History of atrial fibrillation History of irregular heartbeat Rash Hx of multiple myeloma Multiple myeloma Type 2 diabetes mellitus History of left heart catheterization (LHC) (~01/27/11) Mixed hyperlipidemia Essential hypertension Smoldering multiple myeloma Measles Chicken pox Erectile dysfunction Palpitations Murmur Chest pain Abnormal electrocardiogram Atherosclerotic heart disease of [place] coronary artery without angina pectoris SOB (shortness of breath) COPD (chronic obstructive pulmonary disease) Obesity MESA (dyspnea on exertion) CONCHA (obstructive sleep apnea) Home Medications ?Medication ?Instructions ?Recorded ?Last Taken ?Type atorvastatin 20 mg tablet (Lipitor) 20 mg PO QDAY cholesterol 08/19/17 07/31/24 History magnesium 250 mg tablet 250 mg PO QDAY supplement 08/19/17 07/31/24 History omega-3 fatty acids 1,000 mg 1,000 mg PO QDAY supplement 08/19/17 07/31/24 History capsule cholecalciferol (vitamin D3) 50 50 mcg PO DAILY supplement 05/14/22 07/31/24 History mcg (2,000 unit) tablet handicap placard #1 ea 01/18/23 Unknown Rx losartan 50 mg tablet 50 mg PO DAILY #90 tabs 01/18/23 07/31/24 Rx empagliflozin 10 mg tablet 10 mg PO DAILY 02/23/23 07/31/24 History (Jardiance) daratumumab 20 mg/mL intravenous mg .Route QMONTH 12/06/23 07/02/24 History solution (Darzalex) potassium chloride 20 mEq 20 meq PO DAILY 12/06/23 07/31/24 History tablet,extended release acyclovir 400 mg tablet 400 mg PO BID 12/12/23 07/31/24 History insulin aspart U-100 100 unit/mL 36 unit subcut QACLUNCH diabetes 12/12/23 07/31/24 History (3 mL) subcutaneous pen (Novolog FlexPen U-100 Insulin aspart) insulin aspart U-100 100 unit/mL 54 unit subcut QACDINNER diabetes 12/12/23 07/31/24 History (3 mL) subcutaneous pen (Novolog FlexPen U-100 Insulin aspart) fluticasone fur. 200 mcg-umeclid 1 inh inhalation DAILY #90 days 02/09/24 07/31/24 Rx 62.5 mcg-vilant 25 mcg inhalat.powder (Trelegy Ellipta) insulin degludec 100 unit/mL 60 unit subcut DAILY 02/28/24 07/31/24 History subcutaneous solution (Tresiba U-100 Insulin) ondansetron HCl 8 mg tablet 8 mg PO Q8H PRN nausea and vomiting 02/28/24 08/01/24 History insulin aspart U-100 100 unit/mL 22 unit subcut DAILY 05/17/24 07/31/24 History (3 mL) subcutaneous pen (Novolog FlexPen U-100 Insulin aspart) insulin degludec 100 unit/mL (3 54 unit subcut DINNER 05/17/24 07/31/24 History mL) subcutaneous pen (Tresiba FlexTouch U-100 insulin) insulin degludec 100 unit/mL (3 60 unit subcut 1200 05/17/24 07/31/24 History mL) subcutaneous pen (Tresiba FlexTouch U-100 insulin) metformin 1,000 mg tablet 1,000 mg PO BIDAC 05/17/24 07/31/24 History tizanidine 4 mg tablet 4 - 6 mg PO TID PRN muscle 05/17/24 Unknown History spasticity zoledronic acid 4 mg/5 mL See Rx Instructions .Route .COMPLEX 06/01/24 06/25/24 History intravenous solution dexamethasone 4 mg tablet 8 mg PO .COMPLEX 06/07/24 08/01/24 History apixaban 5 mg tablet (Eliquis) 5 mg PO BID #180 tabs 06/19/24 07/31/24 Rx torsemide 10 mg tablet 10 mg PO QAM #30 tabs 06/20/24 07/31/24 Rx diltiazem HCl 240 mg 240 mg PO DAILY #90 caps 06/26/24 07/31/24 Rx capsule,extended release 24 hr albuterol sulfate 90 mcg/actuation 1 puff inhalation Q4H PRN 06/28/24 07/31/24 Rx aerosol inhaler (Ventolin HFA) breathing #8.5 grams pantoprazole 40 mg tablet,delayed 40 mg PO QAM #90 tabs 07/24/24 07/31/24 Rx release acetaminophen 500 mg capsule 500 mg PO Q6H PRN fever or pain 08/01/24 08/01/24 History diphenhydramine HCl 25 mg capsule 25 mg PO .COMPLEX 08/01/24 08/01/24 History (Aler-Cap) famotidine 20 mg tablet (Acid 20 mg PO DAILY 08/01/24 08/01/24 History Controller) Allergy/AdvReac Type Severity Reaction Status Date / Time Penicillins Allergy Mild Rash Verified 08/01/24 11:42 Family History Father Myocardial infarction Mother Breast cancer Surgical History Status post recent transurethral resection of prostate (~02/02/23) Hx of bilateral cataract extraction Hx of esophagogastroduodenoscopy History of cataract extraction Bone spur removal Social History Smoking Status: Former smoker quit date: 04/25/02 pack-years: 31 alcohol intake: current alcohol intake frequency: holidays/special occasions only substance use type: does not use caffeine: Yes Type: coffee Number of servings: 5 ROS Constitutional Constitutional: Denies chills, fatigue, fever(s) or malaise Eyes Eyes: Denies blurry vision ENT HEENT: Denies headache(s) or nasal discharge Cardiovascular Cardiovascular: Reports edema; Denies chest pain, dyspnea on exertion, orthopnea or syncope Respiratory/Chest Respiratory/Chest: Reports shortness of breath at rest and shortness of breath with exertion; Denies cough Gastrointestinal Gastrointestinal: Denies constipation, diarrhea, nausea or vomiting Genitourinary Genitourinary: Denies dysuria Neurologic Neurologic: Denies focal weakness, numbness or tremor(s) Psychiatric Psychiatric: Denies anxiety or depression Vital Signs Vital Signs Vital Signs: 08/01/24 11:41 08/01/24 11:43 08/01/24 11:44 Temperature 98.7 F 98.7 F Temperature Source Oral Oral Pulse Rate 73 73 Respiratory Rate 20 H 20 H Respiratory Effort Respiratory Pattern Blood Pressure 161/64 H 161/64 H Blood Pressure Mean 96 96 Pulse Ox 79 90 79 Oxygen Delivery Method Nasal Cannula Nasal Cannula Nasal Cannula Oxygen Flow Rate (L/min) 3 6 3 08/01/24 12:05 08/01/24 12:08 08/01/24 12:09 Temperature Temperature Source Pulse Rate 71 Respiratory Rate 16 Respiratory Effort Short of Breath Respiratory Pattern Normal Tachypnea Blood Pressure Blood Pressure Mean Pulse Ox 90 Oxygen Delivery Method Nasal Cannula Oxygen Flow Rate (L/min) 6 08/01/24 12:44 08/01/24 12:44 08/01/24 14:00 Temperature 98.6 F 98.9 F Temperature Source Oral Oral Pulse Rate 96 89 89 Respiratory Rate 18 16 16 Respiratory Effort Respiratory Pattern Blood Pressure 144/49 H 120/86 H 156/75 H Blood Pressure Mean 80 97 102 Pulse Ox 93 98 94 Oxygen Delivery Method Room Air Room Air Nasal Cannula Oxygen Flow Rate (L/min) 2 Physical Exam Narrative General: Alert, Oriented x3, Cooperative, No apparent distress HEENT: Atraumatic, PERRLA, EOMI, Normocephalic Oral: Moist Mucosa Neck: Supple, No JVD Lungs: Diminished, Normal air movement, No rhonchi, No wheeze, No rales Cardiovascular: Regular rate, Regular Rhythm, Normal S1, Normal S2, No murmurs Abdomen: Soft, Non Tender, Non-Distended, No Hepato-splenomegaly Extremities: Edema, Capillary Refill Less than 3 Seconds Skin: No rashes, No breakdown Musculoskeletal: No Tenderness to Palpation of Joints or Extremities Neurological: No focal neurological deficits, Motor Exam 5/5 strength throughout, Sensory exam intact to light touch and pain Psych/Mental Status: Normal Affect, Appropriate Results Lab / Micro Data 08/01/24 12:04 08/01/24 12:04 Labs: Laboratory Results - last 24 hr 08/01/24 12:04: WBC 13.4 H, RBC 4.49 L, Hgb 10.1 L, Hct 34.5 L, MCV 76.8 L, MCH 22.5 L, MCHC 29.3 L, RDW Std Deviation 48.9 H, RDW Coeff of Kavya 17.8 H, Plt Count 395, MPV 10.2, Immature Gran % (Auto) 0.800, Neut % (Auto) 92.2 H, Lymph % (Auto) 3.3 L, [place] % (Auto) 2.5, Eos % (Auto) 0.7, Baso % (Auto) 0.5, Absolute Neuts (auto) 12.3 H, Absolute Lymphs (auto) 0.44 L, Nucleated RBC % 0, Sodium 139, Potassium 4.5, Chloride 104, Carbon Dioxide 24.3, Anion Gap 11, BUN 14, Creatinine 0.73, Est GFR (MDRD) Non-Af 97, BUN/Creatinine Ratio 19.1, Glucose 168 H, Calcium 8.8, Troponin T High Sens 39 H, NT pro BNP II 1468 H Rhythm Strip Rhythm Strip: A-fib Rate: 63 Ectopy: None Imaging Radiology Impression Chest X-Ray 08/01/24 12:18 IMPRESSION: Suspicion of left lower lobe infiltrate. Mild cardiac enlargement. Blunting of the lateral costophrenic angles due to pleural fluid and or thickening. Reading Location: [place] [address] Assessment & Plan Assessment/Plan (1) Hypoxia: PLAN: Plan 1. Acute on chronic hypoxic respiratory insufficiency secondary to acute on chronic diastolic CHF/A-fib/HLD/essential HTN/leukocytosis ? Will continue with diuresis ? Wean his oxygen as able back to his 2 L at baseline ? Will provide him with an 1800 cc fluid restriction and daily weights ? Unclear if he has pneumonia or not given his lack of symptoms other than his elevated white blood cell count, will monitor and if it worsens can start him on antibiotics then ? Can resume his Eliquis and his home blood pressure medications ? Continue with Lipitor 2. DM2 ? Unclear as to what his insulin regimen is based on fill dates in the computer ? Continue with this on his home insulin ? Accu-Cheks ACHS ? Will monitor and make adjustments as necessary ? Continue with Jardiance but hold metformin 3. Multiple myeloma with a history of right-sided colon cancer ? PET scan recently was negative for any metastatic illness and he states that he had significant lymph nodes removed during his partial colectomy which were negative ? He was supposed to get chemotherapy for his multiple myeloma today, this can be rescheduled 4. GERD ? Stable ? Continue with PPI DVT: Eliquis 75 minutes was spent on direct patient care, including documentation as well as chart review and collaboration with colleagues Charges/Coding Visit Charges Inpatient E&M: 88182 Init Hosp L3
[2024-08-01] MEDS: 0.9% Saline Lock 10 ML Syringe IV ×2 (18:01→21:24)
[2024-08-01] MEDS: Furosemide 40 MG/4 ML Vial IV (18:01)
[2024-08-01] MEDS: Insulin Glargine-YFGN 100 UNIT/ML Pen 27 UNIT SC (18:07)
[2024-08-01] MEDS: Insulin Lispro 100 UNIT/ML INSULN.PEN 54 UNIT SC (18:11)
[2024-08-01 18:42] LABS: Bedside Glucose 233 mg/dL (74-106)
[2024-08-01] MEDS: APIXABAN 5 MG TABLET PO (21:21)
[2024-08-01] MEDS: Acyclovir 200 MG Capsule 400 MG PO (21:22)
[2024-08-01 22:42] LABS: Bedside Glucose 265 mg/dL (74-106)
[2024-08-02] VITALS (10 sets, daily range): BP systolic 124–144; BP diastolic 52–64; PULSE 56–65; RESP 14–18; TEMP 36.5–36.8; O2SAT 90–97; BMI 42.7
--- NOTE | 2024-08-02 07:14 | PN.HOSP_ITS ---
Reason for Visit Reason for Visit: Shortness of breath Subjective Subjective Patient states he is feeling a lot better than yesterday. Does wear 3 L of oxygen at baseline and is back to his baseline. Asks if we think we will be able to discharge him tomorrow and I did tell him that that would be likely as long as he continues to do well. We discussed diet, fluid intake and checking his daily weights with the option for increasing his diuretics. Objective Data Objective Data Vital Signs: Vital Signs Temp Pulse Resp BP Pulse Ox O2 Del Method O2 Flow Rate 98.3 F 64 17 136/52 H 96 Nasal Cannula 6 08/02/24 03:52 08/02/24 03:52 08/02/24 03:52 08/02/24 03:52 08/02/24 03:52 08/02/24 03:55 08/02/24 03:55 Oxygen Flow Rate (L/min) 6 Oxygen Delivery Method Nasal Cannula Weight: 131 kg Body Mass Index (BMI) 42.7 Intake & Output: Intake and Output for Last 24 Hours 07/31/24 08/01/24 08/02/24 23:59 23:59 23:59 Intake Total 450 / 450 800 / 800 Output Total 800 / 800 3000 / 3000 Balance -350 / -350 -2200 / -2200 Lab / Micro Data 08/02/24 07:10 08/02/24 07:10 Labs: Laboratory Results - last 24 hr 08/01/24 12:04: WBC 13.4 H, RBC 4.49 L, Hgb 10.1 L, Hct 34.5 L, MCV 76.8 L, MCH 22.5 L, MCHC 29.3 L, RDW Std Deviation 48.9 H, RDW Coeff of Kavya 17.8 H, Plt Count 395, MPV 10.2, Immature Gran % (Auto) 0.800, Neut % (Auto) 92.2 H, Lymph % (Auto) 3.3 L, [place] % (Auto) 2.5, Eos % (Auto) 0.7, Baso % (Auto) 0.5, Absolute Neuts (auto) 12.3 H, Absolute Lymphs (auto) 0.44 L, Nucleated RBC % 0, Sodium 139, Potassium 4.5, Chloride 104, Carbon Dioxide 24.3, Anion Gap 11, BUN 14, Creatinine 0.73, Est GFR (MDRD) Non-Af 97, BUN/Creatinine Ratio 19.1, Glucose 168 H, Calcium 8.8, Troponin T High Sens 39 H, NT pro BNP II 1468 H 08/01/24 18:04: POC Glucose 233 H 08/01/24 21:17: POC Glucose 265 H Radiography Diagnostic Testing: Radiology Impression Chest X-Ray 08/01/24 12:18 IMPRESSION: Suspicion of left lower lobe infiltrate. Mild cardiac enlargement. Blunting of the lateral costophrenic angles due to pleural fluid and or thickening. Reading Location: [place] [address] Rhythm Strip Rhythm Strip: A-fib Rate: 63 Ectopy: None Physical Exam Const alert, oriented x3, no apparent distress and well nourished; Negative for average body habitus or healthy appearing Constitutional Narrative: Older, morbidly obese, white male, sitting up in a chair at the bedside watching television, appears comfortable, nontoxic HEENT head/scalp atraumatic and moist oral mucous membranes Head and Scalp: normocephalic Resp normal respiratory effort, no retractions, no use of accessory muscles and clear to auscultation bilaterally Resp Narrative: Diminished but clear Auscultation: Negative for rales, rhonchi or wheezes Cardio regular rate, regular rhythm, S1 normal heart sound, S2 normal heart sound, no murmurs, no rub, no gallops and no clicks GI normal to inspection, nondistended, normoactive bowel sounds, soft to palpation and non-tender Extremity no clubbing, cyanosis or edema Extremity Narrative: Pedal and radial pulses are 2+ Neuro oriented x3, moves all extremities and no focal motor deficits Speech: speech normal Psych affect normal Psych Narrative: Very pleasant, interacts appropriately Assessment & Plan Assessment/Plan (1) Hypoxia: (2) Acute on chronic heart failure with preserved ejection fraction: (3) Leukocytosis: (4) Microcytic anemia: PLAN: Plan Acute on chronic hypoxic respiratory failure secondary to acute on chronic heart failure with preserved ejection fraction -at baseline patient wears 3 L continuously- -Continue fluid restriction -Continue sodium restriction -We discussed pursuing daily weights at discharge -Patient is only on torsemide 10 mg a day and he is not taking it consistently at home due to some social issues currently -Will check ambulatory pulse ox prior to discharge however I do anticipate patient will be ready tomorrow -CT of the chest was performed patient does not have PE which I did not anticipate with him being on Eliquis and there is pleural effusions with no consolidation -COVID and respiratory viral panel are negative Microcytic anemia -No signs of bleeding -Patient is anticoagulated chronically -Will monitor -Repeat CBC in a.m. DM-2 -Will continue current insulin regimen -Continue Accu-Cheks as ordered -Continue Jardiance for heart failure and diabetes -Can restart metformin at discharge History of multiple myeloma -Chemotherapy was to be performed on the day of admission and currently is on hold until discharge -Patient plans to reschedule after discharge History of right-sided colon cancer -Had surgical care Leukocytosis -Suspect reactive -Patient with no signs of infectious etiology and clinically much better -Viral etiologies were ruled out GERD -Continue home PPI PAF -Continue home diltiazem -Continue home Eliquis COPD -Restart home inhalers -Does not seem to be an acute flare at this time CONCHA -Continue home CPAP at discharge -Patient declined CPAP while he is hospitalized Morbid obesity -BMI is 42.6 -Recommend weight loss -complicates treatment, prognosis, outcomes DVT prophylaxis -Continue apixaban CODE STATUS Full code is verified Charges/Coding Visit Charges Inpatient E&M: 60751 Subs Hosp L2
[2024-08-02 07:45] LABS: Absolute Neutrophil Count 8.5 X10^3/uL (2.0-7.7); Basophil# 0.01 X10^3/uL; Basophil% 0.1 % (0-1); Hematocrit 34.2 % (40-54); Hemoglobin 9.8 g/dL (13.0-16.5); Lymphocyte % 6.9 % (19-41); Mean Corp Hgb Conc 28.7 g/dL (32-36); Mean Corpuscular Hgb 21.9 pg (27.0-32.0); Mean Corpuscular Volume 76.5 fL (80-94); Mean Platelet Vol. 10.6 fl (6.2-12.0); Monocyte% 8.9 % (0-10); NRBC Flagged by Analyzer 0 % (0-5); Neutrophil % 83.6 % (47-70); Platelet Count 421 K/mm3 (150-450); RBC Distribution Width CV 17.4 % (11.6-14.6); RBC Distribution Width SD 48.2 fl (35.1-43.9); Red Blood Count 4.47 M/mm3 (4.6-6.2); White Blood Count 10.2 K/mm3 (4.4-11.0)
[2024-08-02 08:27] LABS: Anion Gap 13 (5-15); BUN 20 mg/dL (4-19); BUN/Creat Ratio 23.9 RATIO (10-20); Calcium,Total 8.8 mg/dL (7.6-11.0); Carbon Dioxide 26.2 mmol/L (21.0-32.0); Chloride 100 mmol/L (98-108); Creatinine, Serum 0.85 mg/dL (0.70-1.20); EST Glomerular Filtration Rate 92 (>60); Estimated Creatinine Clearance 105.36 ml/min (50-250); Glucose 158 mg/dL (70-99); Sodium Level 139 mmol/L (133-145)
--- NOTE | 2024-08-02 09:11 | CT_ITS ---
EXAM: CT Angiography Chest Without and With Intravenous Contrast CLINICAL INDICATION: HYPOXIA TECHNIQUE: Axial computed tomographic angiography images of the chest without and with intravenous contrast. This CT exam was performed using one or more of the following dose reduction techniques: automated exposure control, adjustment of the mA and/or kV according to patient size, and/or use of iterative reconstruction technique. MIP reconstructed images were created and reviewed. COMPARISON: No relevant prior studies available. FINDINGS: LIMITATIONS: Suboptimal opacification of the pulmonary arteries. PULMONARY ARTERIES: No pulmonary embolism is identified. Some of the distal pulmonary arteries cannot be evaluated due to suboptimal opacification. AORTA: No acute findings. No thoracic aortic aneurysm. LUNGS AND PLEURAL SPACES: Bilateral pleural effusions with compressive atelectasis. No mass. No pneumothorax. HEART: Unremarkable. No cardiomegaly. No significant pericardial effusion. No evidence of RV dysfunction. BONES/JOINTS: No acute fracture. No dislocation. SOFT TISSUES: Unremarkable. LYMPH NODES: Unremarkable. No enlarged lymph nodes. CT/CTA Chest W/WO Contrast IMPRESSION: 1. No pulmonary embolism is identified. Some of the distal pulmonary arteries cannot be evaluated due to suboptimal opacification. 2. Bilateral pleural effusions with compressive atelectasis. Reading Location: [facility]
[2024-08-02] MEDS: Atorvastatin Calcium 20 MG Tablet PO (09:17)
[2024-08-02] MEDS: Acyclovir 200 MG Capsule 400 MG PO ×2 (09:17→21:54)
[2024-08-02] MEDS: dilTIAZem CD 240 MG Capsule PO (09:17)
[2024-08-02] MEDS: Pantoprazole Sodium 40 MG Tablet PO (09:18)
[2024-08-02] MEDS: APIXABAN 5 MG TABLET PO ×2 (09:18→21:54)
[2024-08-02] MEDS: Empagliflozin 10 MG Tablet PO (09:18)
[2024-08-02] MEDS: Losartan Potassium 50 MG Tablet PO (09:18)
[2024-08-02] MEDS: Insulin Lispro 100 UNIT/ML INSULN.PEN 22 UNIT SC (09:19)
[2024-08-02] MEDS: Furosemide 40 MG/4 ML Vial IV ×2 (09:59→18:53)
[2024-08-02] MEDS: 0.9% Saline Lock 10 ML Syringe IV ×3 (10:00→21:55)
--- NOTE | 2024-08-02 11:45 | CASEMGMT ---
RN CM Face to Face with patient for initial transition planning/care coordination assessment. RN CM introduced self and role at [facility]. Patient sitting in chair, alert and oriented. Patient willing to participate in assessment and is able to answer all questions appropriately. Care providers, pharmacy, and demographics verified. Strata: 3 PCP: Krishna Lane Specialists: Silvia, Construction Management Instructor; Jhony, oncologist; Jose, pordiatrist; Jahaira Lane, gypsum calciner; YAHAIRA, learning and development administrator; Preferred Pharmacy: [facility] Insurance: [facility], [facility] Prescription Benefit: yes Living Will/HPOA: yes, Sheila James LNOK: Living Arrangements: Patient lives with in a 2 story home with bed and bath on first floor, 2-3 steps to enter the home. Patient is independent and able to ambulate stairs. Transportation: DME/HHC: Patient has shower chair, raised toilet, cane, walker, grab bars, cpap, pulse ox, glucometer, and home oxygen with portability through [facility]. No previous HHC or SNF Patient wishes to discharge home, denies need for home health at this time. Patient states he has no further needs or concerns at this time. CM to follow for discharge planning needs that may arise. Disposition Plan: Patient to discharge home with family support and follow-up plans in place. Eva DOZIER, RN, CM
[2024-08-02 12:35] LABS: Bedside Glucose 191 mg/dL (74-106)
[2024-08-02] MEDS: Insulin Lispro 100 UNIT/ML INSULN.PEN 36 UNIT SC (13:16)
[2024-08-02 17:12] LABS: Bedside Glucose 66 mg/dL (74-106)
[2024-08-02] MEDS: Insulin Glargine-YFGN 100 UNIT/ML Pen 27 UNIT SC (18:54)
[2024-08-02] MEDS: Ipratropium/Albuterol Sulfate 3 ML AMPUL.NEB INHALATION (20:50)
[2024-08-02] MEDS: Budesonide Respules 0.5 MG/2 ML AMPUL.NEB. INHALATION (20:50)
[2024-08-03 00:01] LABS: Bedside Glucose 174 mg/dL (74-106)
[2024-08-03 03:45] VITALS: BP 133/67; PULSE 57; RESP 18; TEMP 36.8; O2SAT 94
[2024-08-03 06:00] VITALS: BMI 44.2
[2024-08-03 06:04] LABS: Hematocrit 33.8 % (40-54); Hemoglobin 9.8 g/dL (13.0-16.5); Mean Corpuscular Hgb 22.2 pg (27.0-32.0); Mean Corpuscular Volume 76.5 fL (80-94); Mean Platelet Vol. 10.5 fl (6.2-12.0); Platelet Count 403 K/mm3 (150-450); RBC Distribution Width CV 17.5 % (11.6-14.6); RBC Distribution Width SD 48.4 fl (35.1-43.9); Red Blood Count 4.42 M/mm3 (4.6-6.2)
[2024-08-03 06:23] LABS: Anion Gap 14 (5-15); BUN 24 mg/dL (4-19); BUN/Creat Ratio 27.9 RATIO (10-20); Calcium,Total 8.5 mg/dL (7.6-11.0); Carbon Dioxide 27.7 mmol/L (21.0-32.0); Chloride 98 mmol/L (98-108); Creatinine, Serum 0.87 mg/dL (0.70-1.20); EST Glomerular Filtration Rate 92 (>60); Estimated Creatinine Clearance 102.93 ml/min (50-250); Glucose 133 mg/dL (70-99); Magnesium 2.2 mg/dL (1.5-2.2); Phosphorus 5.1 mg/dL (2.7-4.5); Potassium 3.6 mmol/L (3.3-5.1); Sodium Level 140 mmol/L (133-145)
[2024-08-03 07:08] VITALS: PULSE 59; RESP 20; O2SAT 95
[2024-08-03] MEDS: Ipratropium/Albuterol Sulfate 3 ML AMPUL.NEB INHALATION (07:08)
[2024-08-03] MEDS: Budesonide Respules 0.5 MG/2 ML AMPUL.NEB. INHALATION (07:08)
[2024-08-03] MEDS: Losartan Potassium 50 MG Tablet PO (08:47)
[2024-08-03] MEDS: Empagliflozin 10 MG Tablet PO (08:47)
[2024-08-03] MEDS: APIXABAN 5 MG TABLET PO (08:47)
[2024-08-03] MEDS: dilTIAZem CD 240 MG Capsule PO (08:47)
[2024-08-03] MEDS: Furosemide 40 MG/4 ML Vial IV (08:48)
[2024-08-03] MEDS: Atorvastatin Calcium 20 MG Tablet PO (08:48)
[2024-08-03] MEDS: Pantoprazole Sodium 40 MG Tablet PO (08:48)
[2024-08-03] MEDS: Acyclovir 200 MG Capsule 400 MG PO (08:48)
[2024-08-03] MEDS: Cholecalciferol (VIT D3) 25 MCG TABLET (1,000 UNITS) 50 MCG PO (08:50)
[2024-08-03] MEDS: 0.9% Saline Lock 10 ML Syringe IV (08:52)
[2024-08-03] MEDS: Insulin Lispro 100 UNIT/ML INSULN.PEN 22 UNIT SC (08:52)
[2024-08-03 09:01] VITALS: BP 142/62; PULSE 66; RESP 18; TEMP 36.7; O2SAT 96
[2024-08-03 09:20] LABS: Bedside Glucose 156 mg/dL (74-106)
[2024-08-03 11:43] VITALS: O2SAT 89; O2SAT 95
--- NOTE | 2024-08-03 12:11 | PCM.DC.SUM ---
Providers Date of Admission: 08/01/24 Date of Discharge: 08/03/24 Primary Care Physician: Dr. Krishna Lane DO Reason For Visit: CHF EXACERBATION Diagnosis Discharge Diagnosis (1) Hypoxia: Status: Acute Code(s): R09.02 - Hypoxemia (2) Acute on chronic heart failure with preserved ejection fraction: Status: Acute Code(s): I50.33 - Acute on chronic diastolic (congestive) heart failure (3) Leukocytosis: Status: Acute Code(s): D72.829 - Elevated white blood cell count, unspecified (4) Microcytic anemia: Status: Acute Code(s): D50.9 - Iron deficiency anemia, unspecified Medications at Discharge Home Medications atorvastatin 20 mg tablet (Lipitor) 20 mg PO QDAY cholesterol 08/19/17 magnesium 250 mg tablet 250 mg PO QDAY supplement 08/19/17 omega-3 fatty acids 1,000 mg capsule 1,000 mg PO QDAY supplement 08/19/17 cholecalciferol (vitamin D3) 50 mcg (2,000 unit) tablet 50 mcg PO DAILY supplement 05/14/22 handicap placard #1 ea 01/18/23 losartan 50 mg tablet 50 mg PO DAILY blood pressure #90 tabs 01/18/23 empagliflozin 10 mg tablet (Jardiance) 10 mg PO DAILY diabetes 02/23/23 daratumumab 20 mg/mL intravenous solution (Darzalex) 20 mg IV QMONTH chemo 12/06/23 potassium chloride 20 mEq tablet,extended release 20 meq PO DAILY supplimnet 12/06/23 acyclovir 400 mg tablet 400 mg PO BID infection 12/12/23 insulin aspart U-100 100 unit/mL (3 mL) subcutaneous pen (Novolog FlexPen U-100 Insulin aspart) 36 unit subcut QACLUNCH diabetes 12/12/23 insulin aspart U-100 100 unit/mL (3 mL) subcutaneous pen (Novolog FlexPen U-100 Insulin aspart) 54 unit subcut QACDINNER diabetes 12/12/23 fluticasone fur. 200 mcg-umeclid 62.5 mcg-vilant 25 mcg inhalat.powder (Trelegy Ellipta) 1 inh inhalation DAILY copd #90 days 02/09/24 insulin degludec 100 unit/mL subcutaneous solution (Tresiba U-100 Insulin) 60 unit subcut BREAKFAST diabetes 02/28/24 ondansetron HCl 8 mg tablet 8 mg PO Q8H PRN nausea and vomiting 02/28/24 insulin aspart U-100 100 unit/mL (3 mL) subcutaneous pen (Novolog FlexPen U-100 Insulin aspart) 22 unit subcut DAILY 05/17/24 insulin degludec 100 unit/mL (3 mL) subcutaneous pen (Tresiba FlexTouch U-100 insulin) 54 unit subcut DINNER 05/17/24 insulin degludec 100 unit/mL (3 mL) subcutaneous pen (Tresiba FlexTouch U-100 insulin) 60 unit subcut 1200 05/17/24 metformin 1,000 mg tablet 1,000 mg PO BIDAC diabetes 05/17/24 tizanidine 4 mg tablet 4 - 6 mg PO TID PRN muscle spasticity 05/17/24 zoledronic acid 4 mg/5 mL intravenous solution See Rx Instructions .Route .COMPLEX bones 06/01/24 dexamethasone 4 mg tablet 8 mg PO .COMPLEX steroid 06/07/24 apixaban 5 mg tablet (Eliquis) 5 mg PO BID blood thinner #180 tabs 06/19/24 torsemide 10 mg tablet 10 mg PO QAM chf #30 tabs 06/20/24 diltiazem HCl 240 mg capsule,extended release 24 hr 240 mg PO DAILY heart #90 caps 06/26/24 albuterol sulfate 90 mcg/actuation aerosol inhaler (Ventolin HFA) 1 puff inhalation Q4H PRN breathing #8.5 grams 06/28/24 pantoprazole 40 mg tablet,delayed release 40 mg PO QAM stomach #90 tabs 07/24/24 acetaminophen 500 mg capsule 500 mg PO Q6H PRN fever or pain 08/01/24 diphenhydramine HCl 25 mg capsule (Aler-Cap) 25 mg PO .COMPLEX 08/01/24 famotidine 20 mg tablet (Acid Controller) 20 mg PO PRN stomach 08/01/24 Hospital Course Operations None Procedures EKG and - (Chest x-ray/CTA chest) Summary of Care Provided Minutes Spent on Discharge: 38 Hospital Course: Patient is a 74-year-old white male with a history of chronic hypoxic respiratory failure on 2 L of oxygen with ambulation who presented to the emergency department at [facility] on 08/01/2024 with a chief complaint of shortness of breath. Patient reported that since his episode of pneumonia he been wearing 2 L of oxygen continuously but then told me 3 L. He reported that if he was feeling short of breath he could bump it up to 3 L which he had been doing. He is on chemo for multiple myeloma and was at his oncologist office on the day of presentation when oxygen saturation was found to be 70% on his normal oxygen requirement. Patient denied weight gain, fever, chills, cough but chest x-ray on presentation showed fluffy bilateral infiltrates versus airspace disease. He does have a known history of heart failure with preserved ejection fraction. Vital signs on presentation showed temperature of 98.7, heart rate 73, respiratory rate 20, blood pressure was 161/64 pulse ox was 79% on 3 L nasal cannula so oxygen was increased to 6 L nasal cannula which improved his sats to about 90%. CBC showed a leukocytosis with a white count of 13.4, chronic stable anemia and he did have a left shift which appears to be chronic for him. Chemistry panel was overtly unremarkable other than hyperglycemia with a blood sugar of 168. Patient did indicate he just took his steroids for his chemo. His troponin was 39 and a BNP was 1468. Patient had no chest pain. He had a recent echocardiogram which showed an EF of 70%, mildly enlarged left atrium and mild mitral valve insufficiency with mild to moderate aortic valve stenosis with 1+ aortic valve insufficiency. That study was done in April 2024. We did obtain a CTA of his chest which showed no PE, and bilateral pleural effusions with compressive atelectasis. He was admitted and place on fluid restriction, sodium restriction, and IV diuretics. He quickly improved and we were able to wean his oxygen to 3 L in 24 hrs and then the following day we were able to wean him from 3 L to RA at rest and he needed 3 L with exertion. Ambulatory pulse ox did reveal that he will need 3 L with exertion only but no oxygen at rest. He is to continue to wear his PAP at night. We did discuss diet with regards to fluid intake and sodium restriction. We also discussed that he needs to weigh himself on a daily basis. He will maintain his baseline torsemide but we did instruct him to weigh himself in the morning without close on and if he gains more than 2 to 3 pounds in 24 hours he is to take an extra dose of his torsemide. He had some issues with compliance at the time of admission as he had family in town and there was only 1 bathroom to utilize so he not been taking his medication consistently. Given this, we did not increase his dose at the time of discharge. Discharge diagnoses: Acute on chronic hypoxic respiratory failure secondary to acute on chronic heart failure with preserved ejection fraction Troponin elevation-secondary to acute decompensated heart failure Microcytic anemia-stable DM-2 History of multiple myeloma History of right-sided colon cancer Leukocytosis-patient was just given steroids for his chemo GERD PAF COPD CONCHA Morbid obesity Physical Exam Const alert, oriented x3, no apparent distress, no limitations and well nourished; Negative for average body habitus or healthy appearing Constitutional Narrative: Older, morbidly obese, white male, sitting up in a chair at the bedside, appears comfortable, nontoxic, at bedside General Appearance: cooperative, comfortable, well kempt and well developed Exam Limitations: no limitations Nutritional Appearance: morbidly obese HEENT normocephalic, head/scalp atraumatic and moist oral mucous membranes HEENT Narrative: Mallampati 3, no thrush Eyes EOMs intact bilaterally and conjunctivae normal Eyes Narrative: no scleral icterus Neck no lymphadenopathy and supple Neck Narrative: neck is short and thick Resp normal respiratory effort, no retractions, no use of accessory muscles and clear to auscultation bilaterally Resp Narrative: Diminished but clear Auscultation: Negative for rales, rhonchi or wheezes Cardio regular rate, regular rhythm, S1 normal heart sound, S2 normal heart sound, no murmurs, no rub, no gallops and no clicks GI normal to inspection, nondistended, normoactive bowel sounds, soft to palpation and non-tender Extremity no clubbing, cyanosis or edema Extremity Narrative: Pedal and radial pulses are 2+ Skin skin turgor normal, no jaundice, no petechiae and no mottling Neuro oriented x3, CN's II-XII intact bilaterally, moves all extremities and no focal motor deficits Speech: speech normal Psych affect normal Psych Narrative: Very pleasant, interacts appropriately Weight / BMI Weight Weight: 135.896 kg Body Mass Index (BMI) 44.2 ABG / Lab / Microbiology Data 08/03/24 05:38 08/03/24 05:38 Laboratory: Laboratory Results - last 24 hr 08/02/24 16:50: POC Glucose 66 L 08/02/24 21:50: POC Glucose 174 H 08/03/24 05:38: WBC 14.0 H, RBC 4.42 L, Hgb 9.8 L, Hct 33.8 L, MCV 76.5 L, MCH 22.2 L, MCHC 29.0 L, RDW Std Deviation 48.4 H, RDW Coeff of Kavya 17.5 H, Plt Count 403, MPV 10.5, Sodium 140, Potassium 3.6, Chloride 98, Carbon Dioxide 27.7, Anion Gap 14, BUN 24 H, Creatinine 0.87, Estim Creat Clear Calc 102.93, Est GFR (MDRD) Non-Af 92, BUN/Creatinine Ratio 27.9 H, Glucose 133 H, Calcium 8.5, Phosphorus 5.1 H, Magnesium 2.2 08/03/24 08:51: POC Glucose 156 H 08/03/24 12:16: POC Glucose 154 H Microbiology: Microbiology 08/02/24 10:40 Mucosa - Nasopharyngeal Respiratory Panel (PCR) - Final 08/02/24 10:15 Mucosa - Nose Coronavirus COVID-19 PCR - Final D/C Instructions Discharge Diet: Low fat / Low cholesterol (Sodium restrictions 2 to 3 g daily/fluid restriction 2 L daily) and 1800 Calorie Control Diet Discharge Activity: Return to Normal Activity DC O2, CPAP, BIPAP Needs Home O2 Discharge instructions: Yes Type of respiratory needs?: Oxygen Oxygen frequency: At rest and With Ambulation Oxygen liters per minute during Ambulation: 3 DC home with Oxygen: Yes Home O2 MD Review: I have reviewed the oxygen testing, and the patient qualifies for home oxygen equipment and portability. The patient is mobile in the home and the community. Meaningful Use Info Meaningful Use Meaningful Use Diagnoses (Choose all that apply): None applicable Ischemic Stroke Statin Dosing Therapy Reference: STATIN DOSE THERAPY REFERENCE: * Patients > 75 years receive moderate or high dose statin therapy. * Patients 75 years or YOUNGER should receive HIGH intensity statin dose unless contraindicated. You will be required to document reason for non-treatment if statin daily dose does not meet guidelines. HIGH DOSE STATIN THERAPY DAILY Atorvastatin > than or = to 40 mg Rosuvastatin > than or = to 20 mg Amlodipine + Atorvastatin > than or = to 2.5/40 mg Ezetimibe + Simvastatin 10/80 mg Simvastatin 80mg Discharge Plan Admission Admit Date/Time: 08/01/24 14:07 Primary Reason for Your Visit: Shortness of breath Attending Provider: Fernanda Staples Primary Care Provider: Krishna Lane Consulting Providers: Janes Pennington Instructions Additional Instructions / Restrictions: 1. Please weigh yourself daily in the morning without close on on the same scale and keep track. If you gain more than 2 to 3 pounds in a 24-hour period please take an extra dose of your torsemide. 2. Please limit your salt intake to no more than 3 g daily 3. Please limit your fluid intake to about 2 L a day Discharge Orders/Prescriptions Prescriptions: Continued magnesium 250 mg tablet 250 mg PO QDAY omega-3 fatty acids 1,000 mg capsule 1,000 mg PO QDAY atorvastatin [Lipitor] 20 mg tablet 20 mg PO QDAY cholecalciferol (vitamin D3) 50 mcg (2,000 unit) tablet 50 mcg PO DAILY insulin aspart U-100 [Novolog FlexPen U-100 Insulin] 100 unit/mL (3 mL) insulin pen 36 unit subcut QACLUNCH insulin aspart U-100 [Novolog FlexPen U-100 Insulin] 100 unit/mL (3 mL) insulin pen 54 unit subcut QACDINNER potassium chloride 20 mEq tablet extended release 20 meq PO DAILY Darzalex 20 mg/mL solution 20 mg IV QMONTH Patient Comments: not sure of dosing Rx Instructions: intravenously every month; Given at [facility] once a month acyclovir 400 mg tablet 400 mg PO BID losartan 50 mg tablet 50 mg PO DAILY Qty: 90 2RF (DME) handicap placard See Rx Instructions .Route .MEDSUPPLY Qty: 1 0RF Rx Instructions: Duration for 5 years Jardiance 10 mg tablet 10 mg PO DAILY insulin degludec [Tresiba U-100 Insulin] 100 unit/mL solution 60 unit subcut BREAKFAST ondansetron HCl 8 mg tablet 8 mg PO Q8H PRN (Reason: nausea and vomiting) zoledronic acid 4 mg/5 mL solution See Rx Instructions .ROUTE .COMPLEX Rx Instructions: every 3 months; once monthly dexamethasone 4 mg tablet 8 mg PO .COMPLEX Patient Comments: [NO ORIGINAL SIG] Rx Instructions: 8 mg orally prior to chemo; insulin aspart U-100 [Novolog FlexPen U-100 Insulin] 100 unit/mL (3 mL) insulin pen 22 unit subcut DAILY Rx Instructions: am insulin degludec [Tresiba FlexTouch U-100] 100 unit/mL (3 mL) insulin pen 60 unit subcut 1200 insulin degludec [Tresiba FlexTouch U-100] 100 unit/mL (3 mL) insulin pen 54 unit subcut DINNER metformin 1,000 mg tablet 1,000 mg PO BIDAC tizanidine 4 mg tablet 4 - 6 mg PO TID PRN (Reason: muscle spasticity) Patient Comments: [NO ORIGINAL SIG] famotidine [Acid Controller] 20 mg tablet 20 mg PO PRN Patient Comments: takes prior to chemo diphenhydramine HCl [Aler-Cap] 25 mg capsule 25 mg PO .COMPLEX Rx Instructions: 25 mg orally prior to chemo; acetaminophen 500 mg capsule 500 mg PO Q6H PRN (Reason: fever or pain) Trelegy Ellipta 200-62.5-25 mcg blister with device 1 inh inhalation DAILY Qty: 90 3RF Eliquis 5 mg tablet 5 mg PO BID Qty: 180 3RF torsemide 10 mg tablet 10 mg PO QAM Qty: 30 2RF diltiazem HCl 240 mg capsule,extended release 24hr 240 mg PO DAILY Qty: 90 1RF albuterol sulfate [Ventolin HFA] 90 mcg/actuation HFA aerosol inhaler 1 puff INHALATION Q4H PRN (Reason: breathing) Qty: 8.5 11RF Rx Instructions: administer with spacer pantoprazole 40 mg tablet,delayed release (DR/EC) 40 mg PO QAM Qty: 90 1RF Referrals / Follow Up: Krishna Lane DO [Primary Care Provider] - In 1 Week Disposition Disposition (needs filled in before D/C Order can be placed): Home, Self Care Charges/Coding Visit Charges Inpatient E&M: 20503 Disch Hosp >30min
[2024-08-03 12:12] VITALS: O2SAT 84; O2SAT 87; O2SAT 89; O2SAT 92
[2024-08-03] MEDS: Insulin Lispro 100 UNIT/ML INSULN.PEN 36 UNIT SC (12:17)
[2024-08-03 12:38] LABS: Bedside Glucose 154 mg/dL (74-106)
[2024-08-03 13:13] VITALS: BP 150/55; PULSE 63; RESP 18; TEMP 36.3; O2SAT 94
--- NOTE | 2024-08-03 13:42 | PHA.DC.MR.R ---
Pharmacy [place] Med Reconciliation Pharmacy Service has performed discharge medication reconciliation for this patient. The patient's discharge medication list was reviewed for discrepancies and discrepancies were resolved. Medications at Discharge Home Medications atorvastatin 20 mg tablet (Lipitor) 20 mg PO QDAY cholesterol 08/19/17 magnesium 250 mg tablet 250 mg PO QDAY supplement 08/19/17 omega-3 fatty acids 1,000 mg capsule 1,000 mg PO QDAY supplement 08/19/17 cholecalciferol (vitamin D3) 50 mcg (2,000 unit) tablet 50 mcg PO DAILY supplement 05/14/22 handicap placard #1 ea 01/18/23 losartan 50 mg tablet 50 mg PO DAILY blood pressure #90 tabs 01/18/23 empagliflozin 10 mg tablet (Jardiance) 10 mg PO DAILY diabetes 02/23/23 daratumumab 20 mg/mL intravenous solution (Darzalex) 20 mg IV QMONTH chemo 12/06/23 potassium chloride 20 mEq tablet,extended release 20 meq PO DAILY supplimnet 12/06/23 acyclovir 400 mg tablet 400 mg PO BID infection 12/12/23 insulin aspart U-100 100 unit/mL (3 mL) subcutaneous pen (Novolog FlexPen U-100 Insulin aspart) 36 unit subcut QACLUNCH diabetes 12/12/23 insulin aspart U-100 100 unit/mL (3 mL) subcutaneous pen (Novolog FlexPen U-100 Insulin aspart) 54 unit subcut QACDINNER diabetes 12/12/23 fluticasone fur. 200 mcg-umeclid 62.5 mcg-vilant 25 mcg inhalat.powder (Trelegy Ellipta) 1 inh inhalation DAILY copd #90 days 02/09/24 insulin degludec 100 unit/mL subcutaneous solution (Tresiba U-100 Insulin) 60 unit subcut BREAKFAST diabetes 02/28/24 ondansetron HCl 8 mg tablet 8 mg PO Q8H PRN nausea and vomiting 02/28/24 insulin aspart U-100 100 unit/mL (3 mL) subcutaneous pen (Novolog FlexPen U-100 Insulin aspart) 22 unit subcut DAILY 05/17/24 insulin degludec 100 unit/mL (3 mL) subcutaneous pen (Tresiba FlexTouch U-100 insulin) 54 unit subcut DINNER 05/17/24 insulin degludec 100 unit/mL (3 mL) subcutaneous pen (Tresiba FlexTouch U-100 insulin) 60 unit subcut 1200 05/17/24 metformin 1,000 mg tablet 1,000 mg PO BIDAC diabetes 05/17/24 tizanidine 4 mg tablet 4 - 6 mg PO TID PRN muscle spasticity 05/17/24 zoledronic acid 4 mg/5 mL intravenous solution See Rx Instructions .Route .COMPLEX bones 06/01/24 dexamethasone 4 mg tablet 8 mg PO .COMPLEX steroid 06/07/24 apixaban 5 mg tablet (Eliquis) 5 mg PO BID blood thinner #180 tabs 06/19/24 torsemide 10 mg tablet 10 mg PO QAM chf #30 tabs 06/20/24 diltiazem HCl 240 mg capsule,extended release 24 hr 240 mg PO DAILY heart #90 caps 06/26/24 albuterol sulfate 90 mcg/actuation aerosol inhaler (Ventolin HFA) 1 puff inhalation Q4H PRN breathing #8.5 grams 06/28/24 pantoprazole 40 mg tablet,delayed release 40 mg PO QAM stomach #90 tabs 07/24/24 acetaminophen 500 mg capsule 500 mg PO Q6H PRN fever or pain 08/01/24 diphenhydramine HCl 25 mg capsule (Aler-Cap) 25 mg PO .COMPLEX 08/01/24 famotidine 20 mg tablet (Acid Controller) 20 mg PO PRN stomach 08/01/24
--- NOTE | 2024-08-03 14:29 | CASEMGMT ---
Patient has order for discharge. Patient is requiring increase in home oxygen, updated script received. RN CM updated discharge plan and [facility] RN CM in to discuss needs at discharge. Patient has portable tank for at discharge. Patient denies needs or help at discharge. Patient had no further questions or concerns.
== END 2024-08-03 15:56 | disposition home or self-care (01) | DRG 291 ==
LOC: ED 14:02 → PCU 14:34
PROVIDERS: Admitting Provider Family Medicine; Emergency Provider Emergency Medicine; PCP Family Medicine; Visit Provider Internal Medicine
DX: I11.0 Hypertensive heart disease with heart failure (principal); I50.33 Acute on chronic diastolic (congestive) heart failure; J96.21 Acute and chronic respiratory failure with hypoxia; C90.00 Multiple myeloma not having achieved remission; Z68.41 Body mass index [BMI] 40.0-44.9, adult; E11.9 Type 2 diabetes mellitus without complications; D50.9 Iron deficiency anemia, unspecified; E66.01 Morbid (severe) obesity due to excess calories; Z79.01 Long term (current) use of anticoagulants; J44.9 Chronic obstructive pulmonary disease, unspecified; I48.0 Paroxysmal atrial fibrillation; I25.10 Atherosclerotic heart disease of native coronary artery without angina pectoris; K21.9 Gastro-esophageal reflux disease without esophagitis; G47.33 Obstructive sleep apnea (adult) (pediatric); Z79.84 Long term (current) use of oral hypoglycemic drugs; Z87.891 Personal history of nicotine dependence; Z79.51 Long term (current) use of inhaled steroids; Z79.899 Other long term (current) drug therapy
CPT/HCPCS: 36415; 71046; 71275; 80048; 82962; 83735; 83880; 84100; 84484; 85025; 85027; 87633; 87635; 93005; 94640; 97802; 99285; Q9967; A4216; J1940

== ENCOUNTER → 2024-08-14 | Outpatient (CLI) | payer MEDICARE, OTHER, SELFPAY ==
[2024-08-14 16:32] LABS: Pro- Brain NATRIURETIC PEPTIDE 1092 pg/mL (<=900)
== END | disposition home or self-care (01) ==
LOC: BIMLAB 14:12
PROVIDERS: PCP Family Medicine; Referring Provider Family Medicine; Visit Provider Family Medicine
DX: I50.30 Unspecified diastolic (congestive) heart failure (principal)
CPT/HCPCS: 36415; 83880

== ENCOUNTER → 2024-09-04 | Outpatient (CLI) | payer MEDICARE, OTHER, SELFPAY ==
--- NOTE | 2024-09-04 13:49 | RAD_ITS ---
PROCEDURE: CHEST PA AND LATERAL 09/04/2024 REASON FOR EXAM: SHORTNESS OF BREATH TECHNIQUE: Frontal and lateral views of the chest. COMPARISON: 08/01/2024 FINDINGS: Small bilateral pleural effusions and basilar atelectasis again noted. Pulmonary vascularity not significantly changed in appearance. The cardiac and mediastinal contours appear unchanged. Atherosclerotic change of the aortic arch again noted. The visualized osseous structures appear within limits. RAD/Chest PA and Lateral IMPRESSION: No significant interval change in appearance of the chest. Small bilateral ple ural effusions and basilar atelectasis again noted. Mild pulmonary vascular congestion again suggested. Reading Location: [id number]
[2024-09-04 15:49] LABS: Anion Gap 10 (5-15); BUN 18 mg/dL (4-19); BUN/Creat Ratio 21.6 RATIO (10-20); Calcium,Total 9.8 mg/dL (7.6-11.0); Carbon Dioxide 28.7 mmol/L (21.0-32.0); Chloride 101 mmol/L (98-108); Creatinine, Serum 0.82 mg/dL (0.70-1.20); EST Glomerular Filtration Rate 93 (>60); Glucose 119 mg/dL (70-99); Potassium 4.3 mmol/L (3.3-5.1); Pro- Brain NATRIURETIC PEPTIDE 2705 pg/mL (<=900); Sodium Level 140 mmol/L (133-145)
== END | disposition home or self-care (01) ==
LOC: RAD 13:34
PROVIDERS: PCP Family Medicine; Referring Provider Nurse Practitioner Acute Care; Visit Provider Nurse Practitioner Acute Care
DX: R06.09 Other forms of dyspnea (principal)
CPT/HCPCS: 71046; 80048; 83880

== ENCOUNTER → 2024-09-18 | Outpatient (CLI) | payer MEDICARE, OTHER, SELFPAY ==
[2024-09-18 17:26] LABS: Anion Gap 13 (5-15); BUN 15 mg/dL (4-19); BUN/Creat Ratio 16.1 RATIO (10-20); Calcium,Total 9.1 mg/dL (7.6-11.0); Carbon Dioxide 26.3 mmol/L (21.0-32.0); Chloride 103 mmol/L (98-108); Creatinine, Serum 0.91 mg/dL (0.70-1.20); EST Glomerular Filtration Rate 90 (>60); Glucose 169 mg/dL (70-99); Potassium 3.9 mmol/L (3.3-5.1); Sodium Level 142 mmol/L (133-145)
== END | disposition home or self-care (01) ==
LOC: BIMLAB 14:54
PROVIDERS: PCP Family Medicine; Referring Provider Student in an Organized Health Care Education/Training Program; Visit Provider Student in an Organized Health Care Education/Training Program
DX: Z51.81 Encounter for therapeutic drug level monitoring (principal); Z79.899 Other long term (current) drug therapy
CPT/HCPCS: 36415; 80048

== ENCOUNTER → 2024-10-04 | Outpatient (CLI) | payer MEDICARE, OTHER, SELFPAY ==
[2024-10-04 15:56] LABS: Absolute Lymphocyte Count 1.05 X10^3/uL (0.83-4.51); Absolute Neutrophil Count 9.2 X10^3/uL (2.0-7.7); Basophil# 0.05 X10^3/uL; Basophil% 0.4 % (0-1); Eosinophils% 0.9 % (0-5); Hematocrit 37.5 % (40-54); Hemoglobin 10.8 g/dL (13.0-16.5); Lymphocyte # 1.05 X10^3/ul (0.83-4.51); Mean Corp Hgb Conc 28.8 g/dL (32-36); Mean Corpuscular Hgb 22.5 pg (27.0-32.0); Mean Platelet Vol. 10.7 fl (6.2-12.0); Monocyte% 10.3 % (0-10); NRBC Flagged by Analyzer 0 % (0-5); Neutrophil # 9.23 X10^3/uL (2.7-7.7); POSITIVE MORPHOLOGY YES; Platelet Count 372 K/mm3 (150-450); RBC Distribution Width CV 24.2 % (11.6-14.6); RBC Distribution Width SD 66.7 fl (35.1-43.9); Red Blood Count 4.81 M/mm3 (4.6-6.2); White Blood Count 11.7 K/mm3 (4.4-11.0)
[2024-10-04 16:06] LABS: Differential Indicated SCAN CRITERIA MET
[2024-10-04 16:09] LABS: Anion Gap 12 (5-15); BUN 18 mg/dL (4-19); BUN/Creat Ratio 22.8 RATIO (10-20); Calcium,Total 9.2 mg/dL (7.6-11.0); Carbon Dioxide 25.7 mmol/L (21.0-32.0); Chloride 103 mmol/L (98-108); Creatinine, Serum 0.79 mg/dL (0.70-1.20); EST Glomerular Filtration Rate 95 (>60); Glucose 85 mg/dL (70-99); Potassium 4.1 mmol/L (3.3-5.1); Sodium Level 141 mmol/L (133-145)
[2024-10-04 19:02] LABS: Differential Comment SCANNED; Platelet Estimate ADEQUATE (ADEQ)
[2024-10-04 19:03] LABS: Anisocytosis 1+; Polychromasia 1+
== END | disposition home or self-care (01) ==
LOC: BIMLAB 13:04
PROVIDERS: PCP Family Medicine; Referring Provider Student in an Organized Health Care Education/Training Program; Visit Provider Student in an Organized Health Care Education/Training Program
DX: I48.0 Paroxysmal atrial fibrillation (principal); I10 Essential (primary) hypertension; Z51.81 Encounter for therapeutic drug level monitoring; Z79.899 Other long term (current) drug therapy
CPT/HCPCS: 36415; 80048; 85025

== ENCOUNTER → 2024-10-22 | Outpatient (CLI) | payer MEDICARE, OTHER, SELFPAY ==
[2024-10-22 15:12] LABS: Absolute Neutrophil Count 7.8 X10^3/uL (2.0-7.7); Basophil# 0.04 X10^3/uL; Basophil% 0.4 % (0-1); Hematocrit 37.9 % (40-54); Hemoglobin 11.1 g/dL (13.0-16.5); Mean Corp Hgb Conc 29.3 g/dL (32-36); Mean Corpuscular Hgb 23.1 pg (27.0-32.0); Mean Corpuscular Volume 78.8 fL (80-94); Mean Platelet Vol. 10.2 fl (6.2-12.0); Monocyte# 1.07 X10^3/uL; Monocyte% 10.7 % (0-10); NRBC Flagged by Analyzer 0 % (0-5); Neutrophil # 7.76 X10^3/uL (2.7-7.7); Neutrophil % 77.6 % (47-70); POSITIVE MORPHOLOGY YES; Platelet Count 340 K/mm3 (150-450); RBC Distribution Width CV 22.5 % (11.6-14.6); RBC Distribution Width SD 62.9 fl (35.1-43.9); Red Blood Count 4.81 M/mm3 (4.6-6.2)
[2024-10-22 15:14] LABS: Differential Indicated SCAN CRITERIA MET
[2024-10-22 15:55] LABS: Anion Gap 12 (5-15); BUN 14 mg/dL (4-19); BUN/Creat Ratio 16.5 RATIO (10-20); Calcium,Total 9.4 mg/dL (7.6-11.0); Carbon Dioxide 26.1 mmol/L (21.0-32.0); Chloride 105 mmol/L (98-108); Creatinine, Serum 0.88 mg/dL (0.70-1.20); EST Glomerular Filtration Rate 92 (>60); Glucose 121 mg/dL (70-99); Magnesium 1.8 mg/dL (1.5-2.2); Potassium 4.2 mmol/L (3.3-5.1); Sodium Level 142 mmol/L (133-145); Thyroid Stim Hormone (TSH) 0.978 uIU/mL (0.300-4.200)
[2024-10-22 17:17] LABS: Anisocytosis 2+; Differential Comment SCANNED; Hypochromasia 1+; Ovalocyte 1+
== END | disposition home or self-care (01) ==
LOC: LAB 14:30
PROVIDERS: PCP Family Medicine; Referring Provider Student in an Organized Health Care Education/Training Program; Visit Provider Student in an Organized Health Care Education/Training Program
DX: D64.9 Anemia, unspecified (principal); I48.0 Paroxysmal atrial fibrillation; Z51.81 Encounter for therapeutic drug level monitoring; Z79.899 Other long term (current) drug therapy
CPT/HCPCS: 36415; 80048; 83735; 84443; 85025

== ENCOUNTER → 2024-10-31 | Outpatient (CLI) | payer MEDICARE, OTHER, SELFPAY ==
[2024-10-31 13:30] LABS: AST(SGOT) 14 U/L (<=37); Alanine Aminotransfer ALT/SGPT 14 U/L (<=46); Albumin, Serum 3.8 g/dL (3.4-4.8); Alkaline Phosphatase 129 U/L (40-129); Anion Gap 11 (5-15); BUN 18 mg/dL (4-19); BUN/Creat Ratio 21.3 RATIO (10-20); Calcium,Total 8.8 mg/dL (7.6-11.0); Carbon Dioxide 25.8 mmol/L (21.0-32.0); Chloride 105 mmol/L (98-108); Globulin 2.2 g/dL (2.2-4.2); Glucose 114 mg/dL (70-99); Potassium 4.0 mmol/L (3.3-5.1)
[2024-10-31 17:06] LABS: Creatinine, Urine (random) 53.70 mg/dL (39.00-259.00)
[2024-10-31 17:10] LABS: Microalbumin,Random Urine 86.6 mg/L (NO RANGE EST.)
== END | disposition home or self-care (01) ==
LOC: BIMLAB 10:59
PROVIDERS: PCP Family Medicine; Referring Provider Nurse Practitioner Adult Health; Visit Provider Nurse Practitioner Adult Health
DX: E11.65 Type 2 diabetes mellitus with hyperglycemia (principal)
CPT/HCPCS: 36415; 80053; 82043; 82570; 83036

== ENCOUNTER → 2024-11-20 | Outpatient (CLI) | payer MEDICARE, OTHER, SELFPAY ==
--- NOTE | 2024-11-20 07:11 | ECHOD_ITS ---
Reason For Study Reason For Study: CHF, Fluid Overload, Procedure This was a 2D Doppler, Color Flow transthoracic echocardiogram. Myocardial strain analysis was performed in this exam to aid in the assessment of cardiac function. Exam performed in department. Left Ventricle Normal LV size. Moderate concentric left ventricular hypertrophy. The global longitudinal strain = -15% (abnormal). The LV ejection fraction is 70 %. At least grade 2 diastolic dysfunction. Right Ventricle Normal right ventricle. Atria There is severe biatrial dilatation. Mitral Valve Mild-Moderate (1-2+) mitral valve insufficiency. Tricuspid Valve Mild tricuspid valve insufficiency. RVSP estimated at 95 mmHg. Severe pulmonary hypertension. Aortic Valve Mild to moderately calcified aortic valve. Mild aortic valve stenosis with mean peak gradient 15 mmHg. Mild to moderate aortic valve regurgitation. Pulmonic Valve The pulmonic valve is not well visualized. Trivial pulmonic valve insufficiency. Great Vessels Normal sized aortic root. Pericardium/Pleural No pericardial effusion. MMode/2D Measurements & Calculations LVIDd: 5.4 cm IVSd: 1.6 cm LVOT diam: 2.0 cm LVIDs: 3.1 cm LVPWd: 1.6 cm LVOT area: 3.3 cm2 RVDd: 5.4 cm FS: 42.0 % Ao root diam: 3.5 cm LAV(MOD-bp): 119.8 ml LVAd ap4: 34.1 cm2 LA dimension: 5.7 cm LAV(MOD-bp) Indexed: 49.2 ml/m2 LVLd ap4: 8.4 cm LAV(MOD-sp2): 104.5 ml EDV(MOD-sp4): 116.6 ml LAV(MOD-sp4): 128.0 ml EDV(sp4-el): 117.8 ml LVAs ap4: 15.4 cm2 LVLs ap4: 6.5 cm ESV(MOD-sp4): 31.5 ml ESV(sp4-el): 30.9 ml EF(MOD-sp4): 73.0 % EF(sp4-el): 73.8 % SV(MOD-sp4): 85.1 ml SV(sp4-el): 86.9 ml LA A4 area: 33.9 cm2 SI(MOD-sp4): 35.0 ml/m2 LA dimension(2D): 5.7 cm RA A4 area: 21.8 cm2 TAPSE: 2.7 cm Doppler Measurements & Calculations MV E max brad: 120.7 cm/sec Lat Peak E' Brad: 10.2 cm/sec Med Peak E' Brad: 6.6 cm/sec E/E' lat: 11.8 E/E' med: 18.4 Ao V2 max: 262.6 cm/sec AI max brad: 340.6 cm/sec LV V1 max: 150.4 cm/sec Ao max P.9 mmHg AI max P.7 mmHg LV V1 max P.1 mmHg Ao V2 mean: 182.5 cm/sec LV V1 mean P.9 mmHg Ao mean P.5 mmHg AI dec slope: 126.8 cm/sec2 LV V1 mean: 117.1 cm/sec Ao V2 VTI: 54.8 cm AI P1/2t: 786.8 msec LV V1 VTI: 33.9 cm AV (velocity ratio): 0.62 ANTWAN(I,D): 2.0 cm2 ANTWAN(V,D): 1.9 cm2 SV(LVOT): 111.0 ml PA V2 max: 105.5 cm/sec TR max brad: 447.7 cm/sec TR max P.2 mmHg ECHO/Echo Complete Interpretation Summary Moderate concentric left ventricular hypertrophy. The LV ejection fraction is 70 %. The global longitudinal strain = -15% (abnormal). At least grade 2 diastolic dysfunction. There is severe biatrial dilatation. Mild-Moderate (1-2+) mitral valve insufficiency. Mild tricuspid valve insufficiency. RVSP estimated at 95 mmHg. Severe pulmonary hypertension. Mild to moderately calcified aortic valve. Mild aortic valve stenosis with mean peak gradient 15 mmHg. Mild to moderate aortic valve regurgitation. Ordering Physician: Zeus Swanson Referring Physician: Krishna Lane Performed By: Blanca Louise, ERROL, RVT
--- OUTSIDE RECORDS SUMMARY | 2024-11-20 07:27 | XMS RPT_ITS | CCD ---
Author Organization [facility] Care Team Providers Care Cruise Coordinator Name Role Phone Lisette Wright LPN Unavailable Unavaila ble Krishna Mcdaniel DO Primary Care Provider Dr. Krishna Mcdaniel Primary Care Provider [phone] Gayathri EDUCATIONAL PARAPROFESSIONAL, EDUCATIONAL PARAPROFESSIONAL-C Tessy Referring Provider Gayathri EDUCATIONAL PARAPROFESSIONAL, EDUCATIONAL PARAPROFESSIONAL-C Tessy Other Provider Dr. Demetri Cisse Attending Provider Dr. Krishna Mcdaniel Referring Provider [phone] Dr. Kristian Mcdaniel Attending Provider [phone] Gayathri EDUCATIONAL PARAPROFESSIONAL, EDUCATIONAL PARAPROFESSIONAL-C Tessy Attending Provider [phone] Krishna Mcdaniel DO Primary Care Provider Krishna Mcdaniel DO Primary Care Provider KATEY BOOKER Referring Unavailable KRISHNA MCDANIEL Primary Care Unavailable Dr. Krishna Mcdaniel Primary Care Provider [phone] Dr. Krishna Mcdaniel Referring Provider Dr. Kristian Mcdaniel Attending Provider Gayathri EDUCATIONAL PARAPROFESSIONAL, EDUCATIONAL PARAPROFESSIONAL-C Tessy Attending Provider [phone] Gayathri EDUCATIONAL PARAPROFESSIONAL, EDUCATIONAL PARAPROFESSIONAL-C Tessy Referring Provider [phone] Gayathri EDUCATIONAL PARAPROFESSIONAL, EDUCATIONAL PARAPROFESSIONAL-C Tessy Other Provider Dr. Demetri Cisse Attending Provider Liliana Ng Attending Provider Unavailable Dr. Katey Mae Attending Provider Dr. Krishna Mcdaniel Primary Care Provider [phone] Dr. Krishna Mcdaniel Referring Provider Krishna Mcdaniel DO Primary Care Provider Dr. Krishna Mcdaniel Primary Care Provider Dr. Krishna Mcdaniel Referring Provider Gayathri EDUCATIONAL PARAPROFESSIONAL, EDUCATIONAL PARAPROFESSIONAL-C Tessy Attending Provider Gayathri EDUCATIONAL PARAPROFESSIONAL, EDUCATIONAL PARAPROFESSIONAL-C Tessy Referring Provider Gayathri EDUCATIONAL PARAPROFESSIONAL, EDUCATIONAL PARAPROFESSIONAL-C Tessy Other Provider Dr. Demerti Cisse Attending Provider Liliana Ng Attending Provider Unavailable Dr. Katey Mae Attending Provider Dr. Katey Mae Referring Provider Cha Bautista RN Unavailable Unavailable Dr. Krishna Mcdaniel Primary Care Provider Dr. Krishna Mcdaniel Referring Provider Gayathri EDUCATIONAL PARAPROFESSIONAL, EDUCATIONAL PARAPROFESSIONAL-C Tessy Attending Provider Dr. Kristian Mcdaniel Attending Provider Roof EDUCATIONAL PARAPROFESSIONAL, EDUCATIONAL PARAPROFESSIONAL-C Skyler Acosta Attending Provider Katey Booker DO Unavailable Dr. Krishna Mcdaniel Primary Care Provider Dr. Krishna Mcdaniel Referring Provider Gayathri EDUCATIONAL PARAPROFESSIONAL, EDUCATIONAL PARAPROFESSIONAL-C Tessy Attending Provider [phone] Cha Bautista RN Unavailable Unavailable Dr. Dru Mayfield Emergency Provider Dr. Fernanda Staples Admit Provider Dr. Fernanda Staples Attending Provider Dr. Fernanda Staples Other Provider Dr. Makenna Kerr Attending Provider Dr. Preston Carson Other Provider Unavailable Dr. Dudley Cid Attending Provider Dr. Preston Carson Attending Provider Unavailable Dr. Jackie Rose Attending Provider Dr. Jackie Rose Other Provider Kristian Mcdaniel Unavailable Skyler Louise Unavailable Dr. Preston Carson Attending Provider Unavailable Cirilo, Dr. Mensah Referring Provider Arvind Haynes MD Unavailable Dr. Krishna Mcdaniel Primary Care Provider Dr. Krishna Mcdaniel Referring Provider Dr. Jackie Rose Referring Provider Dr. Krishna Mcdaniel Attending Provider [place] EDUCATIONAL PARAPROFESSIONAL, EDUCATIONAL PARAPROFESSIONAL-C Skyler Acosta Attending Provider Dr. Arvind Haynes Admit Provider Dr. Arvind Haynes Referring Provider Dr. Arvind Haynes Other Provider Dr. Janes Pennington Attending Provider Dr. Janes Pennington Other Provider Dr. Clif Everett Other Provider Dr. Rafat Everett Attending Provider Dr. Krishna Mcdaniel Primary Care Provider Dr. Krishna Mcdaniel Referring Provider Gayathri EDUCATIONAL PARAPROFESSIONAL, EDUCATIONAL PARAPROFESSIONAL-Truong Still Attending Provider Dr. Dru Mayfield Emergency Provider Dr. Fernanda Staples Admit Provider Dr. Fernanda Staples Other Provider Dr. Preston Carson Attending Provider Unavailable Cirilo, Dr. Mensah Attending Provider Dr. Makenna Kerr Referring Provider Dr. Preston Carson Other Provider Unavailable Dr. Dudley Cid Attending Provider Rose, Dr. Jackie Burroughs Referring Provider Rose, Dr. Jackie Burroughs Attending Provider Koram, Dr. Jackie Burroughs Other Provider Dr. Krishna Mcdaniel Attending Provider [facility] EDUCATIONAL PARAPROFESSIONAL, EDUCATIONAL PARAPROFESSIONAL-C Skyler Acosta Attending Provider [place], Dr. Arvind Molina Admit Provider [place], Dr. Arvind Molina Referring Provider [place], Dr. Arvind Molina Other Provider Dr. Janes Pennington Attending Provider Dr. Janes Pennington Other Provider Dr. Clif Everett Other Provider Dr. Rafat Everett Attending Provider JOEL VALIENTE DO Primary Care Physician DR MANFRED LO MD Attending Unavailabl e JOEL VALIENTE DO Primary Care Unavailable Manfred Lo MD Unavailable Dr. Krishna Mcdaniel Primary Care Provider Dr. Krishna Mcdaniel Referring Provider [facility] EDUCATIONAL PARAPROFESSIONAL, EDUCATIONAL PARAPROFESSIONAL-C Tessy Attending Provider Dr. Dru Mayfield Emergency Provider Dr. Fernanda Staples Admit Provider Dr. Fernanda Staples Other Provider Dr. Preston Carson Attending Provider Unavailable Dr. Makenna Kerr Attending Provider Dr. Makenna Kerr Referring Provider Dr. Preston Carson Other Provider Unavailable Dr. Dudley Cid Attending Provider [phone] Rose, Dr. Jackie Burroughs Referring Provider Dr. Jackie Rose Attending Provider Rose, Dr. Jackie Burroughs Other Provider Dr. Krishna Mcdaniel Attending Provider Roof EDUCATIONAL PARAPROFESSIONAL, EDUCATIONAL PARAPROFESSIONAL-C Skyler Acosta Attending Provider [place], Dr. Arvind Molina Admit Provider [place], Dr. Arvind Molina Referring Provider [place], Dr. Arvind Molina Other Provider Dr. Janes Pennington Attending Provider Dr. Janes Pennington Other Provider Dr. Clif Everett Other Provider Dr. Rafat Everett Attending Provider Dolores BROWN, Trina Unavailable Dr. Krishna Mcdaniel Primary Care Provider Dr. Krishna Mcdaniel Attending Provider Dr. Krishna Mcdaniel Referring Provider Roof EDUCATIONAL PARAPROFESSIONAL, EDUCATIONAL PARAPROFESSIONAL-Truong Acosta Attending Provider Roof PEDIATRIC SOCIAL WORKER.Skyler CAMACHO Unavailable Dr. Krishna Mcdaniel Primary Care Provider Dr. Krishna Mcdaniel Referring Provider Krishna Mcdaniel DO Primary Care Provider Roof PEDIATRIC SOCIAL WORKER.Skyler CAMACHO Unavailable Dolores BROWN, Trina Matt Unavailable Dr. Krishna Mcdaniel DO Primary Care Provider Jessenia Flores Attending Provider Jessenia Flores Referring Provider Dr. Brian Sanchez DO Referring Provider [phone] Brian Sanchez DO Emergency Provider [phone] Carmela BROWN, Dr. Garcia Admit Provider Carmela BROWN, Dr. Garcia Other Provider Alejo SCOTT, Dr. Draper Attending Provider Rose BROWN, Dr. Jackie Burroughs Other Provider Carmela BROWN, Dr. Garcia Attending Provider Bharat BROWN, Dr. Colon Attending Provider Rose BROWN, Dr. Jackie Burroughs Attending Provider Alejo SCOTT, Dr. Draper Other Provider Elvin BROWN, Dr. Marrero Attending Provider Elvin BROWN, Dr. Marrero Referring Provider Dr. Krishna Mcdaniel DO Referring Provider Liliana Reyes Attending Provider Gayathri ARZOLA-CTessy Attending Provider Joaquin Deluna Attending Provider Liliana Reyes Referring Provider Dr. Blair Maza MD Attending Provider Dr. Katey Booker DO Attending Provider Jhony SCOTT, Dr. Castaneda Referring Provider Gayathri ARZOLA-CTessy Referring Provider Dr. Krishna Mcdaniel DO Attending Provider Manuel BROWN, Dr. Vazquez Emergency Provider [phone] Manuel BROWN, Dr. aVzquez Emergency Provider Aditi BROWN, Dr. Janes Jaime Admit Provider Aditi BROWN, Dr. Janes Jaime Attending Provider Aditi BROWN, Dr. Janes Jaime Other Provider Dr. Krishna Mcdaniel DO Primary Care Provider Jessenia Flores Attending Provider Jessenia Flores Referring Provider Laura SCOTT, Dr. Torres Referring Provider Laura SCOTT, Dr. Torres Emergency Provider Carmela BROWN, Dr. Garcia Admit Provider Carmela BROWN, Dr. Garcia Other Provider Alejo SCOTT, Dr. Draper Attending Provider Rose BROWN, Dr. Jackie Burroughs Other Provider Carmela BROWN, Dr. Garcia Attending Provider [phone] Bharat BROWN, Dr. Colon Attending Provider Rose BROWN, Dr. Jackie Burroughs Attending Provider Alejo SCOTT, Dr. Draper Other Provider Elvin BROWN, Dr. Marrero Attending Provider Elvin BROWN, Dr. Marrero Referring Provider Dr. Krishna Mcdaniel DO Referring Provider [phone] Liliana Reyes Attending Provider Gayathri ARZOLA-CTessy Attending Provider Joaquin Deluna Attending Provider Liliana Reyes Referring Provider Dr. Blair Maza MD Attending Provider Dr. Katey Booker DO Attending Provider [phone] Katey Booker DO Referring Provider [phone] Tessy Gabriel Referring Provider Dr. Krishna Mcdaniel DO Attending Provider [phone] Manuel BROWN, Dr. Vazquez Emergency Provider [phone] Aditi BROWN, Dr. Janes Jaime Admit Provider Aditi BROWN, Dr. Janes Jaime Other Provider Dr. Fernanda Staples DO Attending Provider Aditi BROWN, Dr. Janes Jaime Attending Provider Dr. Fernanda Staples DO Other Provider Dr. Krishna Mcdaniel DO Primary Care Provider Paresh KWON, Jessenia Attending Provider Paresh KWON, Jessenia Referring Provider Dr. Krishna Mcdaniel DO Primary Care Provider Paresh KWON, Jessenia Attending Provider Paresh KWON, Jessenia Referring Provider Aditi BROWN, Dr. Janes Jaime Other Provider Jhoan SCOTT, Dr. Michael Attending Provider Aditi BROWN, Dr. Janes Jamie Attending Provider Jhoan SCOTT, Dr. Michael Other Provider Zeus Beckett Attending Provider Zeus Beckett Referring Provider Dr. Krishna Mcdaniel DO Primary Care Provider [phone] Dr. Krishna Mcdaniel DO Referring Provider Liliana Reyes Attending Provider Gayathri ARZOLA-Tessy Guerin Attending Provider LYN RAYGOAZ Attending Unavailable JOSEPHINE SUTTON Referring Unavailable KRISHNA MCDANIEL Primary Care Unavailable Dr. Krishna Mcdaniel DO Primary Care Provider [phone] Dr. Kristian Mcdaniel DO Attending Provider Dr. Krishna Mcdaniel DO Referring Provider [phone] Dr. Krishna Mcdaniel DO Primary Care Provider [phone] Tessy Gabriel Attending Provider Dr. Kristian Mcdaniel DO Attending Provider Dr. Krishna Mcdaniel DO Referring Provider [phone] Zeus Beckett Attending Provider Zeus Beckett Referring Provider MASCI, KATEY Buckley Referring Unavailable BROWN, KRISHNA R Primary Care Unavailable MASCI, KATEY Buckley Referring Unavailable BROWN, KRISHNA R Primary Care Unavailable MASCI, KATEY Buckley Referring Unavailable BROWN, KRISHNA R Primary Care Unavailable MASCI, KATEY Buckley Attending Unavailable MASCI, KATEY Buckley Referring Unavailable BROWN, KRISHNA R Primary Care Unavailable MASCI, KATEY Buckley Referring Unavailable BROWN, KRISHNA R Primary Care Unavailable MASCI, KATEY Buckley Attending Unavailable MASCI, KATEY Buckley Referring Unavailable BROWN, KRISHNA R Primary Care Unavailable MASCI, KATEY Buckley Referring Unavailable BROWN, KRISHNA R Primary Care Unavailable MASCI, KATEY Buckley Referring Unavailable BROWN, KRISHNA R Primary Care Unavailable MASCI, KATEY Buckley Referring Unavailable BROWN, KRISHNA R Primary Care Unavailable MASCI, KATEY Buckley Referring Unavailable BROWN, KRISHNA R Primary Care Unavailable MASCI, KATEY Buckley Referring Unavailable BROWN, KRISHNA R Primary Care Unavailable MASCI, KATEY Buckley Referring Unavailable BROWN, KRISHNA R Primary Care Unavailable MASCI, KATEY Buckley Attending Unavailable MASCI, KATEY Buckley Referring Unavailable BROWN, KRISHNA R Primary Care Unavailable DAVID MCKINNEY Referring Unavailable BROWN, KRISHNA R Primary Care Unavailable MASCI, KATEY Buckley Referring Unavailable BROWN, KRISHNA R Primary Care Unavailable MASCI, KATEY Buckley Attending Unavailable MASCI, KATEY Buckley Referring Unavailable BROWN, KRISHNA R Primary Care Unavailable MASCI, KATEY Buckley Referring Unavailable BROWN, KRISHNA R Primary Care Unavailable MASCI, KATEY Buckley Referring Unavailable BROWN, KRISHNA R Primary Care Unavailable MASCI, KATEY Buckley Referring Unavailable BROWN, KRISHNA R Primary Care Unavailable MASCI, KATEY Buckley Referring Unavailable BROWN, KRISHNA R Primary Care Unavailable MASCI, KATEY Buckley Referring Unavailable BROWN, KRISHNA R Primary Care Unavailable MASCI, KATEY Buckley Referring Unavailable BROWN, KRISHNA R Primary Care Unavailable MASCI, KATEY Buckley Referring Unavailable BROWN, KRISHNA R Primary Care Unavailable BROWN, KRISHNA R Primary Care Unavailable ALEC VILLELA Referring Unavailable BROWN, KRISHNA R Primary Care Unavailable MASCI, KATEY Buckley Referring Unavailable BROWN, KRISHNA R Primary Care Unavailable MASCI, KATEY Buckley Attending Unavailable MASCI, KATEY Buckley Referring Unavailable BROWN, KRISHNA R Primary Care Unavailable MASCI, KATEY Buckley Referring Unavailable BROWN, KRISHNA R Primary Care Unavailable MASCI, KATEY Buckley Attending Unavailable MASCI, KATEY Buckley Referring Unavailable BROWN, KRISHNA R Primary Care Unavailable MASCI, KATEY Buckley Referring Unavailable BROWN, KRISHNA R Primary Care Unavailable MCKINNEY, DAVID Referring Unavailable BROWN, KRISHNA R Primary Care Unavailable MASCI, KATEY Buckley Attending Unavailable MASCI, KATEY Buckley Referring Unavailable BROWN, KRISHNA R Primary Care Unavailable JOSEPHINE SUTTON Attending Unavailable MASCI, KATEY Buckley Referring Unavailable BROWN, KRISHNA R Primary Care Unavailable MASCI, KATEY Buckley Referring Unavailable BROWN, KRISHNA R Primary Care Unavailable MCKINNEY, DAVID Referring Unavailable BROWN, KRISHNA R Primary Care Unavailable SUSAN AGUSTIN Attending Unavailable MASCI, KATEY Buckley Referring Unavailable BROWN, KRISHNA R Primary Care Unavailable JOSEPHINE SUTTON Referring Unavailable BROWN, KRISHNA R Primary Care Unavailable MASCI, KATEY Buckley Referring Unavailable BROWN, KRISHNA R Primary Care Unavailable MASCI, KATEY Buckley Referring Unavailable BROWN, KRISHNA R Primary Care Unavailable MASCI, KATEY Buckley Referring Unavailable BROWN, KRISHNA R Primary Care Unavailable TIARRA, DAVID Attending Unavailable MASCI, KATEY Buckley Referring Unavailable BROWN, KRISHNA R Primary Care Unavailable MASCI, KATEY Buckley Referring Unavailable BROWN, KRISHNA R Primary Care Unavailable BROWN, KRISHNA R Primary Care Unavailable MASCI, KATEY Buckley Referring Unavailable BROWN, KRISHNA R Primary Care Unavailable TIARRA, DAVID Attending Unavailable MASCI, KATEY Buckley Referring Unavailable BROWN, KRISHNA R Primary Care Unavailable MASCI, KATEY Buckley Referring Unavailable BROWN, KRISHNA R Primary Care Unavailable MASCI, KATEY Buckley Attending Unavailable MASCI, KATEY Buckley Referring Unavailable BROWN, KRISHNA R Primary Care Unavailable MASCI, KATEY Buckley Referring Unavailable BROWN, KRISHNA R Primary Care Unavailable MASCI, KATEY Buckley Referring Unavailable BROWN, KRISHNA R Primary Care Unavailable MASCI, KATEY Buckley Referring Unavailable BROWN, KRISHNA R Primary Care Unavailable MASCI, KATEY Buckley Referring Unavailable BROWN, KRISHNA R Primary Care Unavailable MCKINNEY, DAVID Attending Unavailable MASCI, KATEY Buckley Referring Unavailable BROWN, KRISHNA R Primary Care Unavailable MASCI, KATEY Buckley Referring Unavailable BROWN, KRISHNA R Primary Care Unavailable MASCI, KATEY Buckley Attending Unavailable MASCI, KATEY Buckley Referring Unavailable BROWN, KRISHNA R Primary Care Unavailable MASCI, KATEY Buckley Referring Unavailable BROWN, KRISHNA R Primary Care Unavailable MASCI, KATEY Buckley Referring Unavailable BROWN, KRISHNA R Primary Care Unavailable MASCI, KATEY Buckley Referring Unavailable BROWN, KRISHNA R Primary Care Unavailable ISABELLA TRAORE Referring Unavailable BROWN, KRISHNA R Primary Care Unavailable MASCI, KATEY Buckley Referring Unavailable BROWN, KRISHNA R Primary Care Unavailable Dr. Krishna Mcdaniel DO Primary Care Provider Gayathri EDUCATIONAL PARAPROFESSIONAL-C, Tessy Attending Provider Gayathri EDUCATIONAL PARAPROFESSIONAL-C, Tessy Referring Provider SHELLEY EDUCATIONAL PARAPROFESSIONAL-C, DANGELO Attending Provider SHELLEY EDUCATIONAL PARAPROFESSIONAL-C, DANGELO Referring Provider Makenna Kerr Attending Unavailable Demiter, Zeus Referring Unavailable Brown, Krishna R Primary Care Unavailable Jessenia Flores Attending Unavailable Jessenia Flores Referring Unavailable Brown, Krishna R Primary Care Unavailable Demiter, Zeus Attending Unavailable Demiter, Zeus Referring Unavailable Brown, Krishna R Primary Care Unavailable Gayathri EDUCATIONAL PARAPROFESSIONALTessy Attending Unavailable Gayathri EDUCATIONAL PARAPROFESSIONAL, Tessy Referring Unavailable Brown, Krishna R Primary Care Unavailable DANGELO ROSA Attending Unavailable SHELLEY, DANGELO Referring Unavailable Brown, Krishna R Primary Care Unavailable Aleks Vega Attending Unavailable Aleks Vega Referring Unavailable Brown, Krishna R Primary Care Unavailable Demiter, Zeus Attending Unavailable Demiter, Zeus Referring Unavailable Brown, Krishna R Primary Care Unavailable Brown, Krishna R Primary Care Unavailable Brian Sanchez Referring Unavailable Jose Casey Admitting Unavailable Jose Casey Consulting Unavailable Baron Dhillon Attending Unavailable Jackie Rose Consulting Unavailable Demiter, Zeus Attending Unavailable Demiter, Zeus Referring Unavailable Brown, Krishna R Primary Care Unavailable Liliana Reyes Attending Unavail able Liliana Reyes Referring Unavail able Brown, Krishna R Primary Care Unavailable Tessy Trinh NP Attending Unavailable Brown, Krishna R Primary Care Unavailable Janes Oconnor Attending Unavailable Janes Oconnor Referring Unavailable Brown, Krishna R Primary Care Unavailable Jessenia Flores Attending Unavailable Jessenia Flores Referring Unavailable Brown, Krishna R Primary Care Unavailable Brown, Krishna R Attending Unavailable Brown, Krishna R Referring Unavailable Brown, Krishna R Primary Care Unavailable Gayathri EDUCATIONAL PARAPROFESSIONALTessy Attending Unavailable Gayathri EDUCATIONAL PARAPROFESSIONAL, Tessy Referring Unavailable Brown, Krishna R Primary Care Unavailable Katey Booker Attending Unavailable Katey Booker Referring Unavailable Brown, Krishna R Primary Care Unavailable Aleks Vega Attending Unavailable Aleks Vega Referring Unavailable Brown, Krishna R Primary Care Unavailable Zeus Swanson Attending Unavailable Brown, Krishna R Referring Unavailable Brown, Krishna R Primary Care Unavailable Gayathri ARZOLA, Tessy Attending Unavailable Brown, Krishna R Referring Unavailable Brown, Krishna R Primary Care Unavailable Brown, Krishna R Attending Unavailable Brown, Krishna R Referring Unavailable Brown, Krishna R Primary Care Unavailable Brown, Krishna R Primary Care Unavailable Janes Pennington Admitting Unavailable Fernanda Staples Attending Unavailable Janes Pennington Consulting Unavailable Zeus Swanson Attending Unavailable Demiter, Zeus Referring Unavailable Brown, Krishna R Primary Care Unavailable Brown, Krishna R Attending Unavailable Brown, Krishna R Referring Unavailable Brown, Krishna R Primary Care Unavailable DemZeus davis Attending Unavailable Demiter, Zeus Referring Unavailable Brown, Krishna R Primary Care Unavailable Gayathri ARZOLA, Tessy Attending Unavailable Brown, Krishna R Referring Unavailable Brown, Krishna R Primary Care Unavailable Liliana Reyes Attending Unavail able Brown, Krishna R Referring Unavailable Brown, Krishna R Primary Care Unavailable Isaiah Nicholson Attending Unavailabl e Brown, Krishna R Primary Care Unavailable Blair Mzaa Attending Unavailable Liliana Reyes Referring Unavail able Brown, Krishna R Primary Care Unavailable Kristian Mcdaniel Attending Unavailable Tessy Trinh NP Referring Unavailable Brown, Krishna R Primary Care Unavailable Janes Pennington Admitting Unavailable Fernanda Staples Attending Unavailable Brown, Krishna R Primary Care Unavailable Janes Pennington Consulting Unavailable Fernanda Staples Consulting Unavailable Jose Casey Admitting Unavailable Jose Casey Attending Unavailable Brian Sanchez Referring Unavailable Brown, Krishna R Primary Care Unavailable Jose Casey Consulting Unavailable Jackie Rose Attending Unavailable Jackie Rose Consulting Unavailable Baron Dhillon Attending Unavailable Baron Dhillon Consulting Unavailable Janes Pennington Attending Unavailable Joaquin Deluna Attending Unavailable Brown, Krishna R Referring Unavailable Brown, Krishna R Primary Care Unavailable Tessy Trinh NP Attending Unavailable Brown, Krishna R Referring Unavailable Brown, Krishna R Primary Care Unavailable Brown, Krishna R Attending Unavailable Brown, Krishna R Referring Unavailable Brown, Krishna R Primary Care Unavailable Tavia Veloz NP Attending Unavailable Brown, Krishna R Referring Unavailable Domingo Krishna R Primary Care Unavailable Zeus Swanson Attending Unavailable Krishna Mcdaniel R Referring Unavailable Krishna Mcdaniel R Primary Care Unavailable Tessy Trinh NP Attending Unavailable Krishna Mcdaniel R Referring Unavailable Krishna Mcdaniel R Primary Care Unavailable Allergies Allergy Classification Reported Allergen(s) Allergy Type Date of Onset Reaction(s) Facility Penicillins (antibiotic) (2 sources) Penicillins Drug Allergy 5 Rash, Swelling [facility] (2 sources) penicillin; 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: [Penicillin -class of antibiotic- (substance)] Drug Allergy 2 Weal (disorder) [facility] Work Phone: (1 source) penicillin v Drug Allergy 2 Rash Pulmonary Medicine [facility] Work Phone: (11 sources) Penicillins; 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: [PENICILLINS] Drug Allergy 5 Rash, Swelling [facility] (20 sources) Penicillins Allergy to substance 2 Rash [facility] (20 sources) Penicillins Drug Allergy 5 Rash, Swelling [facility] (18 sources) Penicillins Drug Allergy 5 Rash, Swelling [facility] (1 source) Penicillins Drug allergy (disorder) 5 [facility] Repository Medications Current Medications Medication Drug Class(es) Dates Sig (Normalized) Sig (Original) atorvastatin 20 mg oral tablet (20 sources) HMG-CoA Reductase Inhibitor Start: 05-28-2014 Comment on above: Take 20 mg by mouth once daily. benzonatate 100 mg oral capsule (20 sources) Non-narcotic Antitussive Start: 03-21-2024 End: 03-28-2024 take 1 capsule by mouth every eight hours as needed benzonatate (TESSALON PERLE) 100 mg capsule Take 1 capsule by mouth three times a day as needed for cough for up to 7 days. 21 capsule 03/21/2024 03/28/2024 Active Start: 06-20-2020 End: 05-14-2022 Calcium Carbonate / vitamin D3 (20 sources) take 1 tablet by eddi th once daily calcium carbonate/vitamin D3 (CALCIUM + D ORAL) Take 1 tablet by mouth once daily. Active take 1 tablet by mouth once judit y CALCIUM CARBONATE/VITAMIN D3 (CALCIUM + D ORAL) Take 1 tablet by mouth once daily. 0 Active Comment on above: Take 1 tablet by [facility] once daily. cholecalciferol 0.05 mg oral tablet (20 sources) Vitamin D Start: 05-14-2022 take 1 tablet by mouth once judit y cholecalciferol (VITAMIN D-3) 50 mcg (2,000 unit) tablet Take 2,000 Units by mouth once daily. Active Comment on above: Take 2,000 Units by mouth once daily. clindamycin 300 mg oral capsule (3 sources) Lincosamide Antibacterial Start: 07-08-19 End: 07-18-19 take 1 capsule by mouth three times daily clindamycin (CLEOCIN) 300 mg capsule Take 1 capsule by mouth three times a day for 10 days. 30 capsule 0 07/08/2023 07/18/2023 Active Comment on above: Take 1 capsule by [facility] three times a day for 10 days. 5 ml daratumumab 20 mg/ml injection (15 sources) [id number] Cytolytic Antibody Start: 12-06-19 DilTIAZem (Eqv-Cardizem CD) 180 mg/24 hours oral capsule, extended release (1 source) Start: 03-14-20 DilTIAZem (Eqv-Cardizem CD) 180 mg/24 hours oral capsule, extended release 0 Refill(s) Start Date: 03/14/23 Status: Ordered doxycycline hyclate 100 mg oral tablet (6 sources) Tetracycline-class Drug Start: 03-12-20 End: 03-19-20 take 1 tablet by mouth twice daily doxycycline (VIBRA-TABS) 100 mg tablet Indications: Rhinosinusitis Take 1 tablet by mouth two times a day for 7 days. 14 tablet 03/12/2024 03/19/2024 Active Start: 11-11-2022 End: 11-21-2022 take 1 capsule by mouth twice daily doxycycline monohydrate (MONODOX) 100 mg capsule Take 1 capsule by mouth twice daily for 10 days. 20 capsule 0 11/11/2022 11/21/2022 Comment on above: Take 1 capsule by [facility] twice daily for 10 days. empagliflozin 10 mg oral tablet (20 sources) Sodium-Glucose Cotransporter 2 Inhibitor Start: 02-23-2023 Comment on above: Take 10 mg by mouth once daily. enteric contrast (will be provided with radiology test) (20 sources) Start: 05-09-2024 End: 05-10-2024 enteric contrast (will be provided with radiology test) Indications: Malignant neoplasm of sigmoid colon (HCC) For CT CHESTABD/PEL W IVCON Routine order Administer, As Directed One Time Only, via Oral, Rectal, both Oral and Rectal, Enteric Tube, Stoma or Indwelling Catheter, Enteric Contrast as designated per enteric contrast guidelines 1 Each 05/09/2024 05/10/2024 Active Start: 11-23-[address] (will be provided with radiology test) Indications: Multiple myeloma not having achieved remission (HCC) , Cancer of sigmoid colon (HCC) For CT ABD/PEL W IVCON Routine order Administer, As Directed One Time Only, via Oral, Rectal, both Oral and Rectal, Enteric Tube, Stoma or Indwelling Catheter, Enteric Contrast as designated per enteric contrast guidelines 1 Each 11/23/2023 Active Start: 11-23-[address] (will be provided with radiology test) Indications: Multiple myeloma not having achieved remission (HCC) , Cancer of sigmoid colon (HCC) For CT ABD/PEL W IVCON Routine order Administer, As Directed One Time Only, via Oral, Rectal, both Oral and Rectal, Enteric Tube, Stoma or Indwelling Catheter, Enteric Contrast as designated per enteric contrast guidelines 1 Each 0 11/23/2023 Active Start: 03-23-2023 End: 03-24-2023 enteric contrast (will be pr ovided with radiology test) For CT CHESTABD/PEL W IVCON Routine order Administer, As Directed One Time Only, via Oral, Rectal, both Oral and Rectal, Enteric Tube, Stoma or Indwelling Catheter, Enteric Contrast as designated per enteric contrast guidelines 1 Each 0 03/23/2023 03/24/2023 Active Comment on above: For CT CHESTABD/PEL W IVCON Routine order Administer, As Directed One Time Only, via Oral, Rectal, both Oral and Rectal, Enteric Tube, Stoma or Indwelling Catheter, Enteric Contrast as designated per enteric contrast guidelines famotidine 20 mg oral tablet (17 sources) Histamine-2 Receptor Antagonist Start: 08-01-2024 End: 09-26-2024 Start: 12-07-2023 End: 12-07-2023 famotidine 20 mg tab(s) (PEP MELONIE) Start: 08-31-2023 End: 08-31-2023 famotidine 20 mg tab(s) (PEP MELONIE) Start: 08-24-2023 End: 08-24-2023 famotidine 20 mg tab(s) (PEP MELONIE) Start: 08-17-2023 End: 08-17-2023 famotidine 20 mg tab(s) (PEP MELONIE) ferrous sulfate (2 sources) Start: 12-17-2022 take 550 mg by mouth every other day ferrous sulfate Active 550 MG PO .every other day December 17, 2022 12:00am Fluticasone-Umeclidin- Vilanter (20 sources) Start: 02-09-2024 Fluticasone-Um eclidin-Vi lanter (Trelegy Ellipta) 200-62.5-25 mcg blister with device Active 1 NMA INHALATION DAILY February 09, 2024 10:02am copd Start: 02-09-2024 Start: 02-09-2024 Fluticasone-Um eclidin-Vilanter (Trelegy Ellipta) 200-62.5-25 mcg blister with device Active 1 NMA INHALATION DAILY February 09, 2024 10:02am Start: 02-01-2023 End: 02-09-2024 Start: 02-01-2023 End: 02-09-2024 Almduhtlpcp-Zvxxqflbn-Spuhqa er (Trelegy Ellipta) 200-62.5-25 mcg blister with device Discontinued 1 NMA INHALATION DAILY February 01, 2023 12:00am February 09, 2024 10:04am Start: 02-01-2023 Start: 02-01-2023 Fluticasone-Um eclidin-Vilanter (Trelegy Ellipta) 200-62.5-25 mcg blister with device Active 1 INH INHALATION DAILY January 31, 2023 11:00pm Start: 02-01-2023 Fluticasone-Um eclidin-Vilanter (Trelegy Ellipta) 200-62.5-25 mcg blister with device Active 1 INH INHALATION DAILY February 01, 2023 12:00am Start: 06-25-2022 End: 11-24-2022 Byvcqgfutnj-Tibziufjw-Fxvwpq er (Trelegy Ellipta) 200-62.5-25 mcg blister with device Discontinued 1 NMA INHALATION DAILY 3 June 25, 2022 3:37pm November 24, 2022 2:10pm Start: 06-25-2022 End: 11-24-2022 Emxiqiamvyc-Etniqykna-Nfqcjc er (Trelegy Ellipta) 200-62.5-25 mcg blister with device Discontinued 1 NMA INHALATION DAILY June 25, 2022 3:37pm November 24, 2022 2:10pm Start: 06-25-2022 End: 11-24-2022 Start: 06-25-2022 End: 11-24-2022 Jbqueqtorkl-Fdhamkgng-Rzhvjo er (Trelegy Ellipta) 200-62.5-25 mcg blister with device Discontinued 1 INH INHALATION DAILY June 25, 2022 2:37pm November 24, 2022 1:10pm Start: 06-25-2022 End: 11-24-2022 Mmdmgqdnirv-Mtzdzqpud-Zckulo er (Trelegy Ellipta) 200-62.5-25 mcg blister with device Discontinued 1 INH INHALATION DAILY June 25, 2022 3:37pm November 24, 2022 2:10pm Start: 06-25-2022 Fluticasone-Um eclidin-Vilanter (Trelegy Ellipta) 200-62.5-25 mcg blister with device Active 1 INH INHALATION DAILY June 25, 2022 3:37pm Start: 08-07-2021 Fluticasone-Um eclidin-Vilanter (Trelegy Ellipta) 200-62.5-25 mcg blister with device Active 1 INH INHALATION DAILY August 07, 2021 10:37am Start: 08-07-2021 End: 06-25-2022 Kavxuismqqa-Lyjyrhspq-Qgahqu er (Trelegy Ellipta) 200-62.5-25 mcg blister with device Discontinued 1 NMA INHALATION DAILY 3 August 07, 2021 12:00am June 25, 2022 3:37pm Start: 08-07-2021 End: 06-25-2022 Znodceblyly-Gcyakhuoi-Mqznyw er (Trelegy Ellipta) 200-62.5-25 mcg blister with device Discontinued 1 NMA INHALATION DAILY August 07, 2021 12:00am June 25, 2022 3:37pm Start: 08-07-2021 End: 06-25-2022 Start: 08-07-2021 End: 06-25-2022 Vsfxlqeswyn-Tzdlxphgh-Rdxdxi er (Trelegy Ellipta) 200-62.5-25 mcg blister with device Discontinued 1 INH INHALATION DAILY August 06, 2021 11:00pm June 25, 2022 2:37pm Start: 08-07-2021 End: 06-25-2022 Woeevohlfao-Drelstdpy-Ihozxh er (Trelegy Ellipta) 200-62.5-25 mcg blister with device Discontinued 1 INH INHALATION DAILY August 07, 2021 12:00am June 25, 2022 3:37pm Start: 08-07-2021 Fluticasone-Um eclidin-Vilanter (Trelegy Ellipta) 200-62.5-25 mcg blister with device Active 1 INH INHALATION DAILY August 06, 2021 11:00pm Start: 08-07-2021 Fluticasone-Um eclidin-Vilanter (Trelegy Ellipta) 200-62.5-25 mcg blister with device Active 1 INH INHALATION DAILY August 07, 2021 12:00am wsiiayayoel-apesffbcu-jrmfyg er (TRELEGY ELLIPTA) 200-62.5-25 mcg inhalation powder (20 sources) take 1 puff(s) by inhalation once daily trikageunzs-pmlhumjry-zqdlbkyq (TRELEGY ELLIPTA) 200-62.5-25 mcg inhalation powder Inhale 1 Puff as instructed once daily. Active End: 08-03-2023 take 1 puff(s) by inhalation once daily feyswmhzcka-probeebxe-ubhzdgkq (TRELEGY ELLIPTA) 200-62.5-25 mcg inhalation powder Inhale 1 Puff as instructed once daily. 0 08/03/2023 Discontinued take 1 puff(s) by inhalation once daily kyljfwgvxnh-rsjfdcmqs-rvawbwjl (TRELEGY ELLIPTA) 200-62.5-25 mcg inhalation powder Inhale 1 Puff as instructed once daily. 0 Active Comment on above: Inhale 1 Puff as ins tructed once daily. 12 hr guaiFENesin 600 mg extended release oral tablet (20 sources) Start: End: take 1 tablet by mouth twice daily as needed guaiFENesin (MUCINEX) 600 mg 12 hr tablet Take 1 tablet by mouth two times a day as needed for cold/allergy symptoms (cough) for up to 7 days. 14 tablet 03/21/2024 03/28/2024 Active Start: 07-05-2022 End: 10-14-2022 handicap placard (20 sources) Start: 01-18-[address] Active 0 .Route .MEDSUPPLY 1 0 January 18, 2023 12:10pm CHF with PEF Duration for 5 years Start: 01-18-[address] Active 0 .Route .MEDSUPPLY January 18, 2023 11:10am Duration for 5 years Start: 01-18-[address] Active 0 .Route .MEDSUPPLY 1 January 18, 2023 12:10pm Duration for 5 years Start: 01-18-2023 End: 01-18-2023 handicap placard Discontinue d 0 .Route .MEDSUPPLY 1 0 January 18, 2023 12:00am January 18, 2023 12:10pm CHF with PEF Duration for 5 years Start: 01-18-2023 End: 01-18-2023 handicap placard Discontinue d 0 .Route .MEDSUPPLY 1 January 17, 2023 11:00pm January 18, 2023 11:10am Duration for 5 years Start: 01-18-2023 End: 01-18-2023 [address] placard Discontinue d 0 .Route .MEDSUPPLY 1 January 18, 2023 12:00am January 18, 2023 12:10pm Duration for 5 years homatropine methylbromide 0.3 mg/ml / HYDROcodone bitartrate 1 mg/ml oral solution (1 source) Opioid Agonist, Cholinergic Muscarinic Agonist Start: 03-13-2024 End: 03-18-2024 HYDROcodone-homatropine (HYCODAN) 5-1.5 mg/5 mL (5 mL) oral liquid Indications: Multiple myeloma not having achieved remission (HCC) , Acute bronchitis due to Rhinovirus Take 5 mL by mouth every 6 hours as needed (for cough) for up to 5 days. 100 mL 03/13/2024 03/18/2024 Active Insulin Degludec (Tresiba Flextouch U-100) 100 unit/mL (3 mL) insulin pen (18 sources) Start: 05-17-2024 Insulin Degludec (Tresiba Flextouch U-100) 100 unit/mL (3 mL) insulin pen Active 54 U SC WITH DINNER May 17, 2024 1:00am Start: 05-17-2024 Insulin Deglud ec (Tresiba Flextouch U-100) 100 unit/mL (3 mL) insulin pen Active 60 U SC 1200 May 17, 2024 1:00am Start: 05-17-2024 Insulin Deglud ec (Tresiba Flextouch U-100) 100 unit/mL (3 mL) insulin pen Active 42 U SC WITH DINNER May 17, 2024 1:00am Insulin Degludec (Tresiba U- 100 Insulin) 100 unit/mL solution (9 sources) Start: 02-28-2024 Insulin Deglud ec (Tresiba U-100 Insulin) 100 unit/mL solution Active 60 U SC WITH BREAKFAST February 28, 2024 2:04pm diabetes Start: 02-28-2024 Insulin Deglud ec (Tresiba U-100 Insulin) 100 unit/mL solution Active 60 U SC WITH BREAKFAST February 28, 2024 2:04pm Start: 02-28-2024 Insulin Deglud ec (Tresiba U-100 Insulin) 100 unit/mL solution Active 60 U SC DAILY February 28, 2024 2:04pm insulin glargine,hum.rec.anlog (BASAGLAR KWIKPEN U-100 INSULIN SUBCUTANEOUS) (20 sources) inject 60 [IU] by subcutaneous injection at breakfast insulin glargine,hum.rec.anlog (BASAGLAR KWIKPEN U-100 INSULIN SUBCUTANEOUS) Inject subcutaneously. 60 units with breakfast 60 units with dinner 42 units at bedtime Active 3 ml insulin lispro 100 unt/ml pen injector (20 sources) Insulin Analog Star t: 10-08-12 HUMALOG KWIKPEN INSULIN 100 unit/mL 28 units with breakfast, 34 units with lunch, 46 units with dinner. 02/16/2024 Active Start: 05-28-2014 HumaLOG 100 un its/mL subcutaneous solution Subcutaneous, TIDAC Start Date: 05/28/14 Status: Ordered 3 ml insulin aspart, human 100 unt/ml pen injector (20 sources) Insulin Analogue Start: 09-21-2024 Insulin Aspar t U-100 (Novolog Flexpen U-100 Insulin) 100 unit/mL (3 mL) insulin pen Active 20 U SC DAILY September 21, 2024 2:06pm am Start: 05-17-2024 End: 09-21-2024 Insulin Aspart U-100 (Novolo g Flexpen U-100 Insulin) 100 unit/mL (3 mL) insulin pen Discontinued 22 U SC DAILY May 17, 2024 1:00am September 21, 2024 2:09pm am Start: 02-28-2024 End: 05-17-2024 insulin aspart U-100 (Novolo g FlexPen U-100 Insulin) Discontinued 28 U SC once daily before breakfast February 28, 2024 2:03pm May 17, 2024 4:12pm diabetes Start: 02-28-2024 End: 05-17-2024 insulin aspart U-100 (Novolo g FlexPen U-100 Insulin) Discontinued 28 U SC once daily before breakfast February 28, 2024 2:03pm May 17, 2024 4:12pm Start: 12-12-2023 Insulin Aspart U-100 (Novolog Flexpen U-100 Insulin) 100 unit/mL (3 mL) insulin pen Active 54 U SC once daily before dinner December 12, 2023 1:55pm diabetes Start: 12-12-2023 Insulin Aspart U-100 (Novolog Flexpen U-100 Insulin) 100 unit/mL (3 mL) insulin pen Active 36 U SC once daily before lunch December 12, 2023 1:54pm diabetes Start: 12-12-2023 End: 02-28-2024 insulin aspart U-100 (Novolo g FlexPen U-100 Insulin) Discontinued 30 U SC once daily before breakfast December 12, 2023 1:54pm February 28, 2024 2:05pm diabetes Start: 12-12-2023 End: 02-28-2024 insulin aspart U-100 (Novolo g FlexPen U-100 Insulin) Discontinued 30 U SC once daily before breakfast December 12, 2023 1:54pm February 28, 2024 2:05pm Start: 11-18-2023 End: 09-26-2024 FIASP FLEXTOUCH U-100 INSULI N 100 unit/mL (3 mL) pen 22 units with breakfast, 36 units with lunch, 54 units with dinner. 11/18/2023 09/26/2024 Discontinued (Other) Start: 11-18-2023 FIASP FLEXTOUC H U-100 INSULIN 100 unit/mL (3 mL) pen 28 units with breakfast, 34 units with lunch, 46 units with dinner. 11/18/2023 Active Start: 11-18-2023 FIASP FLEXTOUC H U-100 INSULIN 100 unit/mL (3 mL) pen 30 units with breakfast, 42 units with lunch, 50 units with dinner. 11/18/2023 Active Start: 02-23-2023 End: 12-12-2023 Insulin Aspart U-100 (Novolo g Flexpen U-100 Insulin) 100 unit/mL (3 mL) insulin pen Discontinued 46 U SC once daily before dinner February 23, 2023 1:33pm December 12, 2023 1:58pm diabetes Start: 02-23-2023 End: 12-12-2023 Insulin Aspart U-100 (Novolo g Flexpen U-100 Insulin) 100 unit/mL (3 mL) insulin pen Discontinued 52 U SC once daily before lunch February 23, 2023 1:33pm December 12, 2023 1:58pm diabetes Start: 02-23-2023 End: 12-12-2023 insulin aspart U-100 (Novolo g FlexPen U-100 Insulin) Discontinued 32 U SC once daily before breakfast February 23, 2023 1:33pm December 12, 2023 1:58pm diabetes Start: 02-23-2023 End: 12-12-2023 insulin aspart U-100 (Novolo g FlexPen U-100 Insulin) Discontinued 32 U SC once daily before breakfast February 23, 2023 1:33pm December 12, 2023 1:58pm Start: 02-23-2023 insulin aspart U-100 (Novolog FlexPen U-100 Insulin) Active 32 UNIT SC once daily before breakfast February 23, 2023 12:33pm Start: 02-23-2023 insulin aspart U-100 (Novolog FlexPen U-100 Insulin) Active 32 UNIT SC once daily before breakfast February 23, 2023 1:33pm Start: 12-17-2022 End: 02-23-2023 Start: 12-17-2022 End: 02-23-2023 Insulin Aspart U-100 (Novolo g U-100 Insulin Aspart) 100 unit/mL solution Discontinued 45 U SC AT BEDTIME December 17, 2022 12:00am February 23, 2023 1:34pm diabetes Start: 12-17-2022 End: 02-23-2023 Start: 10-14-2022 End: 02-23-2023 Insulin Aspart U-100 (Novolo g Flexpen U-100 Insulin) 100 unit/mL (3 mL) insulin pen Discontinued 50 U SC once daily before dinner October 14, 2022 10:17am February 23, 2023 1:36pm diabetes Start: 10-14-2022 Insulin Aspart U-100 (Novolog Flexpen U-100 Insulin) 100 unit/mL (3 mL) insulin pen Active 45 UNIT SC once daily before dinner October 14, 2022 10:17am Start: 10-14-2022 End: 02-23-2023 Insulin Aspart U-100 (Novolo g Flexpen U-100 Insulin) 100 unit/mL (3 mL) insulin pen Discontinued 58 U SC once daily before lunch October 14, 2022 10:16am February 23, 2023 1:36pm diabetes Start: 10-14-2022 Insulin Aspart U-100 (Novolog Flexpen U-100 Insulin) 100 unit/mL (3 mL) insulin pen Active 54 UNIT SC once daily before lunch October 14, 2022 10:16am Start: 10-14-2022 End: 02-23-2023 insulin aspart U-100 Discont inued 34 U SC once daily before breakfast October 14, 2022 10:16am February 23, 2023 1:36pm diabetes Start: 10-14-2022 End: 02-23-2023 insulin aspart U-100 Discont inued 34 U SC once daily before breakfast October 14, 2022 10:16am February 23, 2023 1:36pm Start: 10-14-2022 End: 02-23-2023 insulin aspart U-100 Discont inued 34 UNIT SC once daily before breakfast October 14, 2022 9:16am February 23, 2023 12:36pm Start: 10-14-2022 End: 02-23-2023 insulin aspart U-100 Discont inued 34 UNIT SC once daily before breakfast October 14, 2022 10:16am February 23, 2023 1:36pm Start: 10-14-2022 insulin aspart U-100 Active 34 UNIT SC once daily before breakfast October 14, 2022 10:16am Start: 10-14-2022 insulin aspart U-100 (Novolog FlexPen U-100 Insulin) Active 34 UNIT SC once daily before breakfast October 14, 2022 10:16am Start: 05-14-2022 End: 10-14-2022 insulin aspart U-100 (Novolo g FlexPen U-100 Insulin) Discontinued 32 U SC once daily before breakfast May 14, 2022 2:03pm October 14, 2022 10:19am Start: 05-14-2022 End: 10-14-2022 insulin aspart U-100 (Novolo g FlexPen U-100 Insulin) Discontinued 32 UNIT SC once daily before breakfast May 14, 2022 1:03pm October 14, 2022 9:19am Start: 05-14-2022 End: 10-14-2022 insulin aspart U-100 (Novolo g FlexPen U-100 Insulin) Discontinued 32 UNIT SC once daily before breakfast May 14, 2022 2:03pm October 14, 2022 10:19am Start: 05-14-2022 insulin aspart U-100 (Novolog FlexPen U-100 Insulin) Active 32 UNIT SC once daily before breakfast May 14, 2022 2:03pm Start: 05-14-2022 insulin aspart U-100 (Novolog FlexPen U-100 Insulin) Active 32 UNIT SC once daily before breakfast May 14, 2022 1:03pm Start: 05-14-2022 End: 09-21-2024 Start: 05-14-2022 End: 10-14-2022 Insulin Aspart U-100 (Novolo g Flexpen U-100 Insulin) 100 unit/mL (3 mL) insulin pen Discontinued 64 U SC once daily before lunch May 14, 2022 1:00am October 14, 2022 10:19am Start: 05-14-2022 End: 02-23-2023 Start: 08-19-2017 insulin aspart U-100 (Novolog Flexpen U-100 Insulin) Active [place] August 19, 2017 8:09am Start: 08-19-2017 End: 05-14-2022 insulin aspart U-100 (Novolo g FlexPen U-100 Insulin) Discontinued [place] August 19, 2017 12:00am May 14, 2022 2:10pm Start: 08-19-2017 End: 05-14-2022 insulin aspart U-100 (Novolo g FlexPen U-100 Insulin) Discontinued [place] August 18, 2017 11:00pm May 14, 2022 1:10pm Start: 08-19-2017 insulin aspart U-100 (Novolog Flexpen U-100 Insulin) Active [place] August 18, 2017 11:00pm Start: 08-19-2017 insulin aspart U-100 (Novolog Flexpen U-100 Insulin) Active [place] August 19, 2017 12:00am Start: 06-14-2011 NOVOLOG 100 UN IT/ML SOLN take as directed INSULIN ASPART [id number] Myrna Casillas End: 09-26-2024 insulin aspart U-100 (NOVOLO G U-100 INSULIN ASPART) 100 unit/mL soln Indications: IgA monoclonal gammopathy Take 26 units with breakfast, 42 units at lunch, 46 units at dinner, zero at bedtime 09/26/2024 Discontinued (Other) insulin aspart U -100 (NOVOLOG U-100 INSULIN ASPART) 100 unit/mL soln Indications: IgA monoclonal gammopathy Take 28 units with breakfast, 50 units at lunch, 48 units at dinner, 48 units at bedtime. 0 Active insulin aspart U -100 (NOVOLOG U-100 INSULIN ASPART) 100 unit/mL soln Indications: IgA monoclonal gammopathy Take 32 units with breakfast, 52 units at lunch, 46 units at dinner, 45 units at bedtime. 0 Active insulin aspart U -100 (NOVOLOG U-100 INSULIN ASPART) 100 unit/mL soln Indications: IgA monoclonal gammopathy Takes 34 units with breakfast, 58 units at lunch, 50 units at dinner, 45 units before bed. 0 Active insulin aspart U -100 (NOVOLOG U-100 INSULIN ASPART) 100 unit/mL soln Indications: IgA monoclonal gammopathy Takes 22 units with breakfast, 40 units at lunch, 38 units at dinner, 38 units before bed. 0 Active Comment on above: Takes 22 units with breakfast, 40 units at lunch, 38 units at dinner, 38 units before bed. Takes 34 units with breakfast, 58 units at lunch, 50 units at dinner, 45 units before bed. Takes 32 units with breakfast, 54 units at lunch, 45 units at dinner, 45 units before bed. Takes 34 units with breakfast, 54 units at lunch, 45 units at dinner, 45 units before bed. Take 32 units with b reakfast, 52 units at lunch, 46 units at dinner, 45 units at bedtime. Take 28 units with b reakfast, 50 units at lunch, 48 units at dinner, 48 units at bedtime. Take 26 units with b reakfast, 48 units at lunch, 45 units at dinner iv contrast (will be provided with radiology test) (20 sources) Start: 05-09-2024 End: 05-10-2024 iv contrast (will be provided with radiology test) Indications: Malignant neoplasm of sigmoid colon (HCC) CT Chest ABD/PEL-Inject, intravenously, once for 1 dose.No IV access, insert saline lock prior to the beginning of sedation, infusion, injection of imaging exam. Discontinue saline lock post exam. If Pt. has a central line or IVAD, may access for administration according to line specific nursing protocol. Once exam is complete flush line and de-access according to line specific nursing protocol in the CT contrast administration guidelines link. 1 Each 05/09/2024 05/10/2024 Active Start: 11-23-2023 iv contrast (w ill be provided with radiology test) Indications: Multiple myeloma not having achieved remission (HCC) , Cancer of sigmoid colon (HCC) CT Chest W -Inject, intravenously, once for 1 dose.No IV access, insert saline lock prior to the beginning of sedation, infusion, injection of imaging exam. Discontinue saline lock post exam. If Pt. has a central line or IVAD, may access for administration according to line specific nursing protocol. Once exam is complete flush line and de-access according to line specific nursing protocol in the CT contrast administration guidelines link. 1 Each 11/23/2023 Active Start: 11-23-2023 iv contrast (w ill be provided with radiology test) Indications: Multiple myeloma not having achieved remission (HCC) , Cancer of sigmoid colon (HCC) CT ABD/PEL -Inject, intravenously, once for 1 dose.No IV access, insert saline lock prior to the beginning of sedation, infusion, injection of imaging exam. Discontinue saline lock post exam. If Pt. has a central line or IVAD, may access for administration according to line specific nursing protocol. Once exam is complete flush line and de-access according to line specific nursing protocol in the CT contrast administration guidelines link. 1 Each 11/23/2023 Active Start: 11-23-2023 iv contrast (w ill be provided with radiology test) Indications: Multiple myeloma not having achieved remission (HCC) , Cancer of sigmoid colon (HCC) CT Chest W -Inject, intravenously, once for 1 dose.No IV access, insert saline lock prior to the beginning of sedation, infusion, injection of imaging exam. Discontinue saline lock post exam. If Pt. has a central line or IVAD, may access for administration according to line specific nursing protocol. Once exam is complete flush line and de-access according to line specific nursing protocol in the CT contrast administration guidelines link. 1 Each 0 11/23/2023 Active Start: 11-23-2023 iv contrast (w ill be provided with radiology test) Indications: Multiple myeloma not having achieved remission (HCC) , Cancer of sigmoid colon (HCC) CT ABD/PEL -Inject, intravenously, once for 1 dose.No IV access, insert saline lock prior to the beginning of sedation, infusion, injection of imaging exam. Discontinue saline lock post exam. If Pt. has a central line or IVAD, may access for administration according to line specific nursing protocol. Once exam is complete flush line and de-access according to line specific nursing protocol in the CT contrast administration guidelines link. 1 Each 0 11/23/2023 Active Start: 09-28-2023 End: 09-29-2023 iv contrast (will be provide d with radiology test) Indications: Acute low back pain, unspecified back pain laterality, unspecified whether sciatica present , Multiple myeloma not having achieved remission (HCC) MRI LSP Inject, intravenously, once for 1 dose. No IV access, insert saline lock prior to the beginning of sedation, infusion, injection of imaging exam. Discontinue saline lock post exam. If Pt. has a central line or IVAD, may access for administration according to line specific nursing protocol. Once exam is complete flush line and de-access according to line specific nursing protocol in the MR contrast administration guidelines link. 1 Each 0 09/28/2023 09/29/2023 Active Start: 03-23-2023 End: 03-24-2023 iv contrast (will be provide d with radiology test) CT Chest ABD/PEL-Inject, intravenously, once for 1 dose.No IV access, insert saline lock prior to the beginning of sedation, infusion, injection of imaging exam. Discontinue saline lock post exam. If Pt. has a central line or IVAD, may access for administration according to line specific nursing protocol. Once exam is complete flush line and de-access according to line specific nursing protocol in the CT contrast administration guidelines link. 1 Each 0 03/23/2023 03/24/2023 Active Comment on above: CT Chest ABD/PEL-Inj ect, intravenously, once for 1 dose.No IV access, insert saline lock prior to the beginning of sedation, infusion, injection of imaging exam. Discontinue saline lock post exam. If Pt. has a central line or IVAD, may access for administration according to line specific nursing protocol. Once exam is complete flush line and de-access according to line specific nursing protocol in the [place] contrast administration guidelines link. Smptemjmf-[id number] 2-Algal Oil (Metanx (Algal Oil)) 3 mg-35 mg-2 mg -90.314 mg capsule (20 sources) Start: 12-16-2017 take 1 capsule by mouth once daily Wcnqdlxgz-D5-Hnr 12-Algal Oil (Metanx (Algal Oil)) 3 mg-35 mg-2 mg -90.314 mg capsule Active 1 CAP PO DAILY December 16, 2017 3:57pm Start: 12-16-2017 End: 08-30-2023 take 1 capsule by mouth twice daily Esbdlilbj-W0-Fxz81-Algal Oil (Metanx (Algal Oil)) 3 mg-35 mg-2 mg -90.314 mg capsule Discontinued 1 NMA PO TWICE A DAY 0 December 16, 2017 12:00am August 30, 2023 1:06pm Start: 12-16-2017 End: 08-30-2023 take 1 capsule by mouth twice daily Wynnhyzoa-Q7-Tda45-Algal Oil (Metanx (Algal Oil)) 3 mg-35 mg-2 mg -90.314 mg capsule Discontinued 1 NMA PO TWICE A DAY December 16, 2017 12:00am August 30, 2023 1:06pm Start: 12-16-2017 take 1 capsule by mo uth twice daily Sbkbwjggb-P8-Scq05-Algal Oil (Metanx (Algal Oil)) 3 mg-35 mg-2 mg -90.314 mg capsule Active 1 CAP PO TWICE A DAY December 15, 2017 11:00pm Start: 12-16-2017 take 1 capsule by mo uth twice daily Oxmvtbuun-B5-Qky06-Algal Oil (Metanx (Algal Oil)) 3 mg-35 mg-2 mg -90.314 mg capsule Active 1 CAP PO TWICE A DAY December 16, 2017 12:00am Start: 12-16-2017 take 1 capsule by mo uth once daily Celaxepwd-E6-Yij85-Algal Oil (Metanx (Algal Oil)) 3 mg-35 mg-2 mg -90.314 mg capsule Active 1 CAP PO DAILY December 15, 2017 11:00pm Start: 12-16-2017 take 1 capsule by mo uth once daily Zayfjvknn-U0-Vkn87-Algal Oil (Metanx (Algal Oil)) 3 mg-35 mg-2 mg -90.314 mg capsule Active 1 CAP PO DAILY December 16, 2017 12:00am losartan potassium 50 mg ora l tablet (20 sources) Angiotensin 2 Receptor Malick Start: 12-20-2022 End: 01-18-2023 Start: 05-28-2014 losartan 100 m g oral tablet (NF) Dose : 100 mg = 1 tab(s), Oral, qDay, # 30 tab(s) Start Date: 05/28/14 Status: Ordered Comment on above: Take 50 mg by mouth once daily. magnesium (20 sources) Start: 08-19-2017 take 250 mg by mouth once daily Magnesium Active 250 MG PO daily August 19, 2017 8:06am Start: 08-19-2017 End: 09-21-2024 take 1 tablet by mouth once daily Magnesium 250 mg tablet Discontinued 250 mg PO daily August 19, 2017 12:00am September 21, 2024 2:07pm supplement Start: 08-19-2017 End: 09-21-2024 take 1 tablet by mouth once daily Magnesium 250 mg tablet Discontinued 250 mg PO daily August 19, 2017 12:00am September 21, 2024 2:07pm Start: 08-19-2017 take 1 tablet by eddi th once daily Magnesium 250 mg tablet Active 250 mg PO daily August 19, 2017 12:00am Start: 08-19-2017 take 500 mg by mouth once judit y Magnesium Active 500 MG PO daily August 18, 2017 11:00pm Start: 08-19-2017 take 500 mg by mouth once judit y Magnesium Active 500 MG PO daily August 19, 2017 12:00am Start: 08-19-2017 take 250 mg by mouth once judit y Magnesium Active 250 MG PO daily August 18, 2017 11:00pm Start: 08-19-2017 take 250 mg by mouth once judit y Magnesium Active 250 MG PO daily August 19, 2017 12:00am Start: 01-15-2016 take 1 tablet by eddi th once daily MAGNESIUM CAPS One tablet by mouth daily MAGNESIUM CAPS [id number] Katey Mae MD magnesium oxide 500 mg oral tablet (8 sources) Start: 09-21-2024 Start: 06-14-2011 End: 01-15-2016 take 1 tablet by mouth once daily MAGNESIUM OXIDE 400 MG TABS One tablet by mouth daily MAGNESIUM OXIDE [id number] Katey Mae MD Magnesium Oxide-Mg Amino Aci d Chelate 300 mg cap (20 sources) Start: 01-15-2016 Magnesium Oxid e-Mg Amino Acid Chelate 300 mg cap Take 250 mg by mouth two times a day. 0 01/15/2016 Active Start: 01-15-2016 Magnesium Oxid e-Mg Amino Acid Chelate 300 mg cap Take 250 mg by mouth once daily. 0 01/15/2016 Active Start: 01-15-2016 take 1 capsule by mo [facility] once daily Magnesium Oxide-Mg Amino Acid Chelate 300 mg cap Take 1 capsule by mouth once daily. 0 01/15/2016 Active Comment on above: Take 1 capsule by mo [facility] once daily. Take 250 mg by mouth once daily. Take 250 mg by mouth two times a day. magnesium oxide/magnesium (MAGNESIUM OXIDE-MG AA CHELATE ORAL) (20 sources) Start: 01-15-2016 take 250 mg by mouth once daily magnesium oxide/magnesium (MAGNESIUM OXIDE-MG AA CHELATE ORAL) Take 250 mg by mouth once daily. 01/15/2016 Active Start: 01-15-2016 take 500 mg by mouth once daily magnesium oxide/magnesium (MAGNESIUM OXIDE-MG AA CHELATE ORAL) Take 500 mg by mouth once daily. 01/15/2016 Active Start: 01-15-2016 take 500 mg by mouth once daily magnesium oxide/magnesium (MAGNESIUM OXIDE-MG AA CHELATE ORAL) Take 500 mg by mouth once daily. 0 01/15/2016 Active Start: 01-15-2016 take 500 mg by mouth once daily at bedtime magnesium oxide/magnesium (MAGNESIUM OXIDE-MG AA CHELATE ORAL) Take 500 mg by mouth once daily. At bedtime 0 01/15/2016 Active Multivitamin (Multiple Vitamins) tablet (20 sources) Start: 08-19-2017 take 1 tablet by mouth once daily Multivitamin (Multiple Vitamins) tablet Active 1 TABLET PO daily August 19, 2017 8:07am Start: 08-19-2017 End: 12-16-2022 Multivitamin (Multiple Vitam ins) tablet Discontinued 1 {tbl} PO daily August 19, 2017 12:00am December 16, 2022 10:27pm Start: 08-19-2017 End: 12-16-2022 take 1 tablet by mouth once daily Multivitamin (Multiple Vitamins) tablet Discontinued 1 TABLET PO daily August 18, 2017 11:00pm December 16, 2022 9:27pm Start: 08-19-2017 End: 12-16-2022 take 1 tablet by mouth once daily Multivitamin (Multiple Vitamins) tablet Discontinued 1 TABLET PO daily August 19, 2017 12:00am December 16, 2022 10:27pm Start: 08-19-2017 take 1 tablet by eddi th once daily Multivitamin (Multiple Vitamins) tablet Active 1 TABLET PO daily August 18, 2017 11:00pm Start: 08-19-2017 take 1 tablet by eddi th once daily Multivitamin (Multiple Vitamins) tablet Active 1 TABLET PO daily August 19, 2017 12:00am nitrofurantoin, macrocrystals 25 mg / nitrofurantoin, monohydrate 75 mg oral capsule (4 sources) Nitrofuran Antibacterial Start: 10-13-2023 End: 10-18-2023 take 1 capsule by mouth twice daily nitrofurantoin monohydrate and macrocrystal (MACROBID) 100 mg capsule Take 1 capsule by mouth two times a day for 5 days. 10 capsule 0 10/13/2023 10/18/2023 Active Start: 12-21-2022 End: 12-28-2022 take 1 capsule by mouth twice daily nitrofurantoin monohydrate and macrocrystal (MACROBID) 100 mg capsule Take 1 capsule by mouth twice daily for 7 days. 14 capsule 0 12/21/2022 12/28/2022 Active Comment on above: Take 1 capsule by mo [facility] twice daily for 7 days. Edison-3 Fatty Acids (18 sources) Start: 08-19-2017 take 1000 mg by mouth once daily Edison-3 Fatty Acids Active 1000 MG PO daily August 19, 2017 8:06am Start: 08-19-2017 take 1000 mg by mouth once juliocesar ly Edison-3 Fatty Acids Active 1000 MG PO daily August 18, 2017 11:00pm Start: 08-19-2017 take 1000 mg by mouth once juliocesar ly Edison-3 Fatty Acids Active 1000 MG PO daily August 19, 2017 12:00am Edison-3 Fatty Acids 1,000 mg capsule (9 sources) Start: 08-19-2017 take 1 capsule by mouth once daily Edison-3 Fatty Acids 1,000 mg capsule Active 1000 mg PO daily August 19, 2017 12:00am supplement Start: 08-19-2017 take 1 capsule by mouth once d aily Edison-3 Fatty Acids 1,000 mg capsule Active 1000 mg PO daily August 19, 2017 12:00am OMEGA-3 FATTY ACIDS ORAL (20 sources) Start: 08-19-2017 take 1 tablet by mouth once daily OMEGA-3 FATTY ACIDS ORAL Take 1 tablet by mouth once daily. 08/19/2017 Active Start: 08-19-2017 [facility] OMEGA-3 FATTY ACIDS ORAL Take 1 tablet by mouth once daily. 0 08/19/2017 Active Start: 08-19-2017 take 1 capsule by mo [facility] once daily OMEGA-3 FATTY ACIDS ORAL Take 1 capsule by mouth once daily. 0 08/19/2017 Active Start: 08-19-2017 take 1 capsule by mo [facility] once daily OMEGA-3 FATTY ACIDS ORAL 1 capsule once daily. 0 08/19/2017 Active Comment on above: 1 capsule once daily . Take 1 capsule by mo [facility] once daily. Take 1 tablet by eddi once daily. spironolactone 25 mg oral ta blet (20 sources) Aldosterone Antagonist Start: 09-21-2024 Start: 01-18-2023 End: 01-18-2023 sulfamethoxazole 800 mg / trimethoprim 160 mg oral tablet (8 sources) Dihydrofolate Reductase Inhibitor Antibacterial, Sulfonamide Antimicrobial Start: 06-13-2023 End: 06-20-2023 take 1 tablet by mouth twice daily sulfamethoxazole-trimethoprim (BACTRIM DS) 800-160 mg per tablet Take 1 tablet by mouth two times a day for 7 days. 14 tablet 0 06/13/2023 06/20/2023 Active Start: 05-27-2023 End: 06-03-2023 take 1 tablet by mouth twice daily sulfamethoxazole-trimethoprim (BACTRIM D S) 800-160 mg per tablet Take 1 tablet by mouth two times a day for 7 days. 14 tablet 0 05/27/2023 06/03/2023 Active Comment on above: Take 1 tablet by eddi two times a day for 7 days. tamsulosin hydrochloride 0.4 mg oral capsule (20 sources) alpha-Adrenergic Malick Start: 03-14-2023 tamsulosin 0.4 mg oral capsule Dose : 0.4 mg = 1 cap(s), 0 Refill(s) Start Date: 03/14/23 Status: Ordered Start: 01-18-2023 End: 02-23-2023 Comment on above: Take 0.4 mg by mouth once daily. tiZANidine 4 mg oral tablet (20 sources) Central alpha-2 Adrenergic Agonist Start: 05-17-2024 Start: 05-07-2024 take 1 tablet by eddi every eight hours as needed tiZANidine (ZANAFLEX) 4 mg tablet Take 4 mg by mouth every 8 hours as needed. 05/07/2024 Active torsemide 20 mg oral tablet (20 sources) Loop Diuretic Start: 09-21-2024 Start: 06-20-2024 End: 10-22-2024 Start: 06-20-2024 End: 09-21-2024 take 1 tablet by mouth once daily in the morning Torsemide 10 mg tablet Discontinued 10 mg PO EVERY MORNING 30 2 August 28, 2024 8:12am September 21, 2024 3:04pm chf Start: 12-06-2023 End: 05-17-2024 Start: 12-06-2023 End: 05-17-2024 take 1 tablet by mouth once daily Torsemide 10 mg tablet Discontinued 10 mg PO DAILY December 06, 2023 12:00am May 17, 2024 4:18pm Start: 01-18-2023 End: 08-30-2023 Start: 01-18-2023 End: 08-30-2023 take 1 tablet by mouth once daily in the morning Torsemide 10 mg tablet Discontinued 10 mg PO EVERY MORNING 90 0 May 16, 2023 5:54pm August 30, 2023 1:05pm Comment on above: Take 10 mg by mouth once daily. Completed/Discontinued Medications Medication Drug Class(es) Dates Sig (Normalized) Sig (Original) acetaminophen 500 mg oral tablet (20 sources) Start: 09-26-2024 End: 09-26-2024 take 1 dose by mouth once, then take 4000 mg by mouth once daily 1,000 mg, ORAL, ONCE, 1 dose, On Tue09/26/24 at 1230, No more than 4000 mg of acetaminophen should be given per day (FROM ALL SOURCES) Start: 08-01-2024 Start: 12-07-2023 End: 12-07-2023 acetaminophen 1,000 mg tab(s ) (TYLENOL) take 3 tablets by mo [facility] every eight hours as needed acetaminophen (TYLENOL EXTRA STRENGTH) 500 mg tablet Take 1,500 mg by mouth every 8 hours as needed. Active Comment on above: Take 1,500 mg by eddi every 8 hours as needed. acyclovir 400 mg oral tablet (20 sources) Herpesvirus Nucleoside Analog DNA Polymerase Inhibitor, Herpes Simplex Virus Nucleoside Analog DNA Polymerase Inhibitor, Herpes Zoster Virus Nucleoside Analog DNA Polymerase Inhibitor Start: 09-25-2022 End: 08-20-2024 Comment on above: Take 1 tablet by eddi th twice daily. Take 1 tablet by eddi th two times a day. [id number] 200 actuat albuter ol 0.09 mg/actuat metered dose inhaler (20 sources) beta2-Adrenergic Agonist Start: 02-18-2020 End: 06-28-2024 Start: 02-18-2020 End: 06-28-2024 Albuterol Sulfate (Ventolin Hfa) 90 mcg/actuation HFA aerosol inhaler Discontinued 2 NMA INHALATION Q4H 18 December 07, 2022 9:35am February 28, 2024 2:05pm breathing administer with spacer Start: 02-18-2020 End: 12-07-2022 take 1 puff(s) by inhalation every four hours Albuterol Sulfate (Ventolin Hfa) 90 mcg/actuation HFA aerosol inhaler Active 2 PUFF INHALATION Q4H December 07, 2022 8:35am administer with spacer Start: 02-18-2020 End: 12-07-2022 Start: 02-20-2018 End: 02-18-2020 take 1 puff(s) by inhalation every four hours Albuterol Sulfate (Ventolin Hfa) 90 mcg/actuation HFA aerosol inhaler Discontinued 2 PUFF INHALATION Q4H February 20, 2018 3:10pm February 18, 2020 8:10am administer with spacer Start: 02-20-2018 End: 02-20-2018 take 1 puff(s) by inhalation every four hours Albuterol Sulfate (Ventolin Hfa) 90 mcg/actuation HFA aerosol inhaler Discontinued 2 PUFF INHALATION Q4H February 20, 2018 3:02pm February 20, 2018 3:12pm administer with spacer Start: 02-20-2018 End: 05-04-2018 take 1 puff(s) by inhalation every four hours Albuterol Sulfate (Proair Hfa) 90 mcg/actuation HFA aerosol inhaler Discontinued 2 PUFF INHALATION Q4H February 20, 2018 2:52pm May 04, 2018 10:49am Start: 02-20-2018 End: 05-04-2018 Start: 02-20-2018 End: 02-18-2020 Start: 02-20-2018 End: 05-04-2018 Albuterol Sulfate (Proair Hf a) 90 mcg/actuation HFA aerosol inhaler Discontinued 2 NMA INHALATION Q4H as needed February 20, 2018 12:00am May 04, 2018 10:49am Start: 02-20-2018 End: 02-18-2020 Albuterol Sulfate (Ventolin Hfa) 90 mcg/actuation HFA aerosol inhaler Discontinued 2 NMA INHALATION Q4H 18 0 February 20, 2018 3:10pm February 18, 2020 8:10am administer with spacer Start: 02-20-2018 End: 05-04-2018 take 1 puff(s) by inhalation every four hours Albuterol Sulfate (Proair Hfa) 90 mcg/actuation HFA aerosol inhaler Discontinued 2 PUFF INHALATION Q4H February 19, 2018 11:00pm May 04, 2018 9:49am Start: 02-20-2018 End: 02-18-2020 take 1 puff(s) by inhalation every four hours Albuterol Sulfate (Ventolin Hfa) 90 mcg/actuation HFA aerosol inhaler Discontinued 2 PUFF INHALATION Q4H 18 February 20, 2018 2:10pm February 18, 2020 7:10am administer with spacer Start: 02-20-2018 End: 05-04-2018 Start: 02-20-2018 End: 02-18-2020 Start: 08-19-2017 End: 12-16-2017 Start: 08-19-2017 End: 12-16-2017 Albuterol Sulfate (Proair Hf a) 90 mcg/actuation HFA aerosol inhaler Discontinued 2 NMA INHALATION EVERY 6 HOURS as needed August 19, 2017 12:00am December 16, 2017 3:54pm Start: 08-19-2017 End: 12-16-2017 take 1 puff(s) by inhalation every six hours Albuterol Sulfate (Proair Hfa) 90 mcg/actuation HFA aerosol inhaler Discontinued 2 PUFF INHALATION EVERY 6 HOURS August 18, 2017 11:00pm December 16, 2017 2:54pm Start: 08-19-2017 End: 12-16-2017 Start: 02-23-2016 take 2 puff(s) by in halation every four to six hours as needed PROAIR HFA 108 (90 Base) MCG/ACT AERS 2 puffs INH q 4-6 hours PRN SOB ALBUTEROL SULFATE [id number] Kristian Mcdaniel DO albuterol HFA (P ROVENTIL HFA, VENTOLIN HFA) 90 mcg/actuation inhaler Inhale 1 Puff as instructed as needed. Active Comment on above: Inhale 1 Puff as ins tructed as needed. Albuterol-Budesonide (Airsupra) 90-80 mcg/actuation HFA aerosol inhaler (6 sources) Start: 07-18-2024 End: 08-01-2024 Albuterol-Budesonide (Airsupra) 90-80 mcg/actuation HFA aerosol inhaler Discontinued 2 NMA INHALATION ONCE 10.7 0 July 18, 2024 12:00am August 01, 2024 1:07pm as a single dose; may repeat up to 6 doses per day (12 inhalations) Start: 07-18-2024 End: 08-01-2024 Albuterol-Budesonide (Airsup ra) 90-80 mcg/actuation HFA aerosol inhaler Discontinued 2 NMA INHALATION ONCE 10.July 18, 2024 12:00am August 01, 2024 1:07pm as a single dose; may repeat up to 6 doses per day (12 inhalations) apixaban 5 mg oral tablet (20 sources) Factor Xa Inhibitor Start: 05-21-2024 End: 06-19-2024 ascorbic acid 500 mg oral ca psule (20 sources) Start: 08-19-2017 End: 10-14-2022 Start: 01-15-2016 End: 10-21-2022 take 1 tablet by mouth once daily VITAMIN C 500 MG TABS One tablet by mouth daily ASCORBIC ACID [id number] Katey Mae MD Comment on above: Take 500 mg by mouth once daily. aspirin 81 mg delayed releas e oral tablet (20 sources) Nonsteroidal Anti-inflammatory Drug Start: 01-15-2016 End: 01-18-2023 Comment on above: Take 81 mg by mouth once daily. azithromycin 250 mg oral tab let (20 sources) Macrolide Antimicrobial Start: 08-03-2022 End: 10-12-2022 Start: 04-01-2021 End: 05-25-2021 Start: 02-20-2018 End: 05-04-2018 B-complex with vitamin C (VITAMIN B COMPLEX-C ORAL) (20 sources) take 1 tablet by mouth once daily B-complex with vitamin C (VITAMIN B COMPLEX-C ORAL) Take 1 tablet by mouth once daily. 0 Active Comment on above: Take 1 tablet by eddi once daily. calcium carbonate 1500 mg / cholecalciferol 200 unt oral tablet (20 sources) Vitamin D Start: 08-19-2017 End: 03-04-2023 Start: 08-19-2017 End: 03-04-2023 take 1 tablet by mouth once daily Calcium Carbonate-Vitamin D3 (Calcium 600 With Vitamin D3) 600 mg(1,500mg) -200 unit tablet Discontinued 1 TABLET PO daily August 18, 2017 11:00pm March 04, 2023 10:20am calcium chloride 0.0014 meq/ml / potassium chloride 0.004 meq/ml / sodium chloride 0.103 meq/ml / sodium lactate 0.028 meq/ml injectable solution (1 source) Start: 10-17-2024 End: 10-17-2024 take 30 mL intravenously every hour 30 mL/hr, INTRAVENOUS, CONTINUOUS, Starting on Tue10/17/24 at 1000, Until Tue10/17/24 at 1058, Preprocedure calcium citrate (1 source) Start: 01-15-2016 take 1 tablet by mouth once daily CALCIUM CITRATE + D TABS One tablet by mouth daily CALCIUM CITRATE-VITAMIN D TABS [id number] Katey Mae MD capecitabine 500 mg oral tablet (4 sources) Nucleoside Metabolic Inhibitor Start: 06-21-2023 End: 06-29-2023 capecitabine (XELODA) 500 mg tablet Indications: Cancer of sigmoid colon (HCC) Take 5 tablets (2,500 mg) by mouth two times a day. for 14 days. Then off 1 week. 140 tablet 5 06/21/2023 06/29/2023 Discontinued Comment on above: Take 5 tablets (2,50 0 mg) by mouth two times a day. for 14 days. Then off 1 week. ciprofloxacin 500 mg oral tablet (20 sources) Quinolone Antimicrobial Start: 10-15-2023 End: 12-06-2023 Start: 03-04-2023 End: 08-30-2023 Start: 03-04-2023 End: 08-30-2023 take 1 tablet by mouth twice daily Ciprofloxacin Hcl 500 mg tablet Discontinued 500 mg PO TWICE A DAY March 04, 2023 1:00am August 30, 2023 1:01pm Start: 02-24-2023 End: 03-03-2023 take 1 tablet by mouth twice daily ciprofloxacin HCl (CIPRO) 250 mg tablet Take 1 tablet by mouth two times a day for 7 days. 14 tablet 0 02/24/2023 03/03/2023 Active Start: 02-02-2023 End: 02-23-2023 Start: 02-02-2023 End: 02-23-2023 take 1 tablet by mouth twice daily Ciprofloxacin Hcl 500 mg tablet Discontinued 500 mg PO TWICE A DAY February 02, 2023 12:00am February 23, 2023 1:35pm Comment on above: Take 1 tablet by eddi two times a day for 7 days. cyclobenzaprine hydrochlorid e 10 mg oral tablet (20 sources) Muscle Relaxant Start: 09-28-2023 End: 06-06-2024 Start: 02-20-2019 End: 01-08-2020 15 ml daratumumab-fihj 120 mg/ml / hyaluronidase-fihj 2000 unt/ml injection (20 sources) Endoglycosidase, [id number] Cytolytic Antibody Start: 10-24-2024 End: 10-24-2024 1,800 mg, SUBCUTANEOUS, ONCE, 1 dose, On Tue10/24/24 at 1030, ++FOR SUBCUTANEOUS ADMINISTRATION ONLY++ Expires: 10/28/24 @ 1030 EXP: Protect From Light. Inject subcutaneously into subcutaneous tissue on the abdomen approximately 3 inches to the right or left of the navel over 3 to 5 minutes. Start: 09-26-2024 End: 09-26-2024 1,800 mg, SUBCUTANEOUS, ONCE , 1 dose, On Tue09/26/24 at 1200, ++FOR SUBCUTANEOUS ADMINISTRATION ONLY++ exp 92910/05/24 (refrigerated) EXP: Protect From Light. Inject subcutaneously into subcutaneous tissue on the abdomen approximately 3 inches to the right or left of the navel over 3 to 5 minutes. Start: 08-29-2024 End: 08-29-2024 1,800 mg, SUBCUTANEOUS, ONCE , 1 dose, On Tue08/29/24 at 1100, ++FOR SUBCUTANEOUS ADMINISTRATION ONLY++ Expires: 09/02/24 @ 1040 EXP: Protect From Light. Inject subcutaneously into subcutaneous tissue on the abdomen approximately 3 inches to the right or left of the navel over 3 to 5 minutes. Start: 07-04-2024 End: 07-04-2024 1,800 mg, SUBCUTANEOUS, ONCE , 1 dose, On Tue07/04/24 at 1030, ++FOR SUBCUTANEOUS ADMINISTRATION ONLY++ exp 0907/14/24 (refrigerated) EXP: Protect From Light. Inject subcutaneously into subcutaneous tissue on the abdomen approximately 3 inches to the right or left of the navel over 3 to 5 minutes. Start: 06-06-2024 End: 06-06-2024 1,800 mg, SUBCUTANEOUS, ONCE , 1 dose, On Tue06/06/24 at 1030, ++FOR SUBCUTANEOUS ADMINISTRATION ONLY++ exp 89906/16/24 (refrigerated) EXP: Protect From Light. Inject subcutaneously into subcutaneous tissue on the abdomen approximately 3 inches to the right or left of the navel over 3 to 5 minutes. Start: 05-09-2024 End: 05-09-2024 1,800 mg, SUBCUTANEOUS, ONCE , 1 dose, On Tue05/09/24 at 1100, ++FOR SUBCUTANEOUS ADMINISTRATION ONLY++ EXP: Protect From Light. Inject subcutaneously into subcutaneous tissue on the abdomen approximately 3 inches to the right or left of the navel over 3 to 5 minutes. Start: 04-11-2024 End: 04-11-2024 1,800 mg, SUBCUTANEOUS, ONCE , 1 dose, On Tue04/11/24 at 1130, ++FOR SUBCUTANEOUS ADMINISTRATION ONLY++ EXP: Protect From Light. Inject subcutaneously into subcutaneous tissue on the abdomen approximately 3 inches to the right or left of the navel over 3 to 5 minutes. Start: 03-13-2024 End: 03-13-2024 1,800 mg, SUBCUTANEOUS, ONCE , 1 dose, On Tu03/13/24 at 1130, ++FOR SUBCUTANEOUS ADMINISTRATION ONLY++ Expires: 03/23/24 @ (refrigerated and protect from light) EXP: Protect From Light. Inject subcutaneously into subcutaneous tissue on the abdomen approximately 3 inches to the right or left of the navel over 3 to 5 minutes. Start: 02-15-2024 End: 02-15-2024 1,800 mg, SUBCUTANEOUS, ONCE , 1 dose, On Tue02/15/24 at 1130, ++FOR SUBCUTANEOUS ADMINISTRATION ONLY++ EXP 02/25/24 (Fridge) EXP: Protect From Light. Inject subcutaneously into subcutaneous tissue on the abdomen approximately 3 inches to the right or left of the navel over 3 to 5 minutes. Start: 01-18-2024 End: 01-18-2024 1,800 mg, SUBCUTANEOUS, ONCE , 1 dose, On Tue01/18/24 at 1130, ++FOR SUBCUTANEOUS ADMINISTRATION ONLY++ exp 89901/27/24 (refrigerated) EXP: Protect From Light. Inject subcutaneously into subcutaneous tissue on the abdomen approximately 3 inches to the right or left of the navel over 3 to 5 minutes. Start: 12-21-2023 End: 12-21-2023 1,800 mg, SUBCUTANEOUS, ONCE , 1 dose, On Tue12/21/23 at 1130, ++FOR SUBCUTANEOUS ADMINISTRATION ONLY++ Expires: 12/22/23 @ 1130 EXP: Protect From Light. Inject subcutaneously into subcutaneous tissue on the abdomen approximately 3 inches to the right or left of the navel over 3 to 5 minutes. Start: 12-07-2023 End: 12-07-2023 daratumumab 1,800 mg - hyalu ronidase-fihj 30,000 units 1,800 mg injection (DARZALEX FASPRO) Start: 11-23-2023 End: 11-23-2023 daratumumab 1,800 mg - hyalu ronidase-fihj 30,000 units 1,800 mg injection (DARZALEX FASPRO) Start: 11-09-2023 End: 11-09-2023 daratumumab 1,800 mg - hyalu ronidase-fihj 30,000 units 1,800 mg injection (DARZALEX FASPRO) Start: 10-26-2023 End: 10-26-2023 daratumumab 1,800 mg - hyalu ronidase-fihj 30,000 units 1,800 mg injection (DARZALEX FASPRO) Start: 10-12-2023 End: 10-12-2023 daratumumab 1,800 mg - hyalu ronidase-fihj 30,000 units 1,800 mg injection (DARZALEX FASPRO) Start: 09-28-2023 End: 09-28-2023 daratumumab 1,800 mg - hyalu ronidase-fihj 30,000 units 1,800 mg injection (DARZALEX FASPRO) Start: 09-14-2023 End: 09-14-2023 daratumumab 1,800 mg - hyalu ronidase-fihj 30,000 units 1,800 mg injection (DARZALEX FASPRO) Start: 08-31-2023 End: 08-31-2023 daratumumab 1,800 mg - hyalu ronidase-fihj 30,000 units 1,800 mg injection (DARZALEX FASPRO) Start: 08-24-2023 End: 08-24-2023 daratumumab 1,800 mg - hyalu ronidase-fihj 30,000 units 1,800 mg injection (DARZALEX FASPRO) Start: 08-17-2023 End: 08-17-2023 daratumumab 1,800 mg - hyalu ronidase-fihj 30,000 units 1,800 mg injection (DARZALEX FASPRO) dexamethasone 4 mg oral tablet (20 sources) Corticosteroid Start: 09-26-2024 End: 09-26-2024 take 1 dose by mouth once 12 mg, ORAL, ONCE, 1 dose, On Tue09/26/24 at 1230 Start: 06-07-2024 Start: 06-07-2024 Dexamethasone 4 mg tablet Active 8 mg PO .COMPLEX June 07, 2024 1:00am steroid 8 mg orally prior to chemo; Start: 03-13-2024 End: 03-13-2024 take 1 dose by mouth once 8 mg, ORAL, ONCE, 1 dose, On Tue03/13/24 at 1130 Start: 12-12-2023 End: 05-21-2024 Start: 12-07-2023 End: 12-07-2023 dexAMETHasone 20 mg tab(s) ( DECADRON) Start: 03-04-2023 Dexamethasone Active [facility] March 04, 2023 10:17am Start: 02-23-2023 End: 08-30-2023 Start: 02-23-2023 End: 08-30-2023 dexAMETHasone (DECADRON) 4 m g tablet Take 5 tablets with breakfast on day of each daratumuamb treatment. 60 tablet 2 06/29/2023 Active Start: 02-23-2023 End: 03-04-2023 Dexamethasone 4 mg tablet Discontinued 8 mg PO .QTRS February 23, 2023 12:00am March 04, 2023 11:21am Start: 02-23-2023 End: 03-04-2023 Dex[facility] February 22, 2023 11:00pm March 04, 2023 10:21am Start: 10-12-2022 End: 01-18-2023 Start: 10-12-2022 End: 01-18-2023 Dexamethasone 4 mg tablet Discontinued 40 mg PO .weekly October 12, 2022 12:00am January 18, 2023 11:36am inflammation every Start: 10-12-2022 End: 01-18-2023 take 40 mg by mouth every week Dexamethasone Discontin ued 40 MG PO .weekly October 11, 2022 11:00pm January 18, 2023 10:36am every Start: 10-12-2022 Dexamethasone Active 40 MG PO MONTHLY October 12, 2022 12:00am take 4 tabs with breakfast on day 22 of each cycle. Start: 09-25-2022 End: 12-22-2022 take 1 tablet by mouth every week dexAMETHasone (DECADRON) 4 mg tablet Take 1 tablet by mouth one time a week. 5 tablets with breakfast on day 22 of each cycle 0 12/22/2022 Active Start: 09-25-2022 End: 09-25-2022 dexAMETHasone (DECADRON) 4 m g tablet Take 10 tablets by mouth one time only for 1 dose. with breakfast on day 22 of each cycle of therapy. 40 tablet 5 09/25/2022 09/25/2022 Active Comment on above: Take 10 tablets by m outh one time only for 1 dose. with breakfast on day 22 of each cycle of therapy. Take 4 mg by mouth. 10 tablets with breakfast on day 22 of each cycle Take 1 tablet by [facility] one time a week. 5 tablets with breakfast on day 22 of each cycle Take 5 tablets with breakfast on day of each daratumuamb treatment. diclofenac sodium 75 mg onur yed release oral tablet (20 sources) Nonsteroidal Anti-inflammatory Drug Start: 05-30-2019 End: 05-14-2022 dicyclomine hydrochloride 20 mg oral tablet (20 sources) Anticholinergic Start: 01-08-2020 End: 05-14-2022 24 hr dilTIAZem hydrochlorid e 240 mg extended release oral capsule (20 sources) Calcium Channel Malick Start: 05-03-2023 End: 06-26-2024 Start: 05-14-2022 End: 05-17-2024 Start: 01-15-2016 End: 05-14-2022 Comment on above: Take 180 mg by mouth once daily. Take 240 mg by mouth once daily. Take 1 capsule by [facility] once daily. diphenhydrAMINE hydrochlorid e 25 mg oral capsule (14 sources) Histamine-1 Receptor Antagonist Start: 09-26-2024 End: 09-26-2024 50 mg, ORAL, NOW, 1 dose, On Tue09/26/24 at 1300 Start: 08-01-2024 Start: 08-01-2024 Diphenhydramin e Hcl (Aler-Cap) 25 mg capsule Active 25 mg PO .COMPLEX August 01, 2024 12:00am 25 mg orally prior to chemo; Start: 12-07-2023 End: 12-07-2023 diphenhydrAMINE 50 mg capsul e (BENADRYL) DULoxetine 60 mg delayed release oral capsule (2 sources) Serotonin and Norepinephrine Reuptake Inhibitor Start: 06-14-2011 End: 01-15-2016 take 1 tablet by mouth once daily as needed CYMBALTA 60 MG CPEP One tablet by mouth daily as needed DULOXETINE HCL [id number] Katey Mae MD finasteride 5 mg oral tablet (20 sources) 5-alpha Reductase Inhibitor Start: 02-02-2023 End: 02-23-2023 fluticasone propionate 0.05 mg/actuat metered dose nasal spray (20 sources) Corticosteroid Start: 02-28-2024 End: 05-17-2024 fluticasone/umecl idin/vilanter (TRELEGY ELLIPTA INHALATION) (20 sources) End: 08-03-2023 take 1 puff(s) by inhalation once daily fluticasone/umecl idin/vilanter (TRELEGY ELLIPTA INHALATION) Inhale 1 Puff as instructed once daily. 0 08/03/2023 Discontinued take 1 puff(s) by in halation once daily fluticasone/umeclidin/vilanter (TRELEGY ELLIPTA INHALATION) Inhale 1 Puff as instructed once daily. 0 Active Comment on above: Inhale 1 Puff as ins tructed once daily. fosfomycin 3000 mg powder fo r oral solution (20 sources) Start: 02-25-2023 End: 10-15-2023 Start: 02-25-2023 End: 10-15-2023 Fosfomycin Tromethamine 3 gr am packet Discontinued 1 NMA PO EVERY OTHER DAY 2 February 25, 2023 12:00am October 15, 2023 5:47pm Take 1 dose Tuesday afternoon (eb) and a second dose afternoon (9 ). Start: 02-25-2023 Fosfomycin Tro methamine Active 1 PACKET PO EVERY OTHER DAY February 24, 2023 11:00pm Take 1 dose Tuesday afternoon () and a second dose afternoon (9 ). furosemide 40 mg oral tablet (20 sources) Loop Diuretic Start: 05-21-2024 End: 08-29-2024 Start: 12-20-2022 End: 01-18-2023 Comment on above: Take 40 mg by mouth once daily. gabapentin 300 mg oral capsu le (20 sources) Anti-epileptic Agent Start: 12-12-2023 End: 06-06-2024 hydroCHLOROthiazide 25 mg or al tablet (20 sources) Thiazide Diuretic Start: 06-18-2020 End: 12-22-2022 Comment on above: 1 tablet once daily. Take 25 mg by mouth once daily. hydroCHLOROthiazide 12.5 mg / irbesartan 300 mg oral tablet (20 sources) Thiazide Diuretic, Angiotensin 2 Receptor Malick Start: 10-14-2022 End: 12-20-2022 Start: 10-14-2022 End: 12-22-2022 Irbesartan-Hydrochlorothiazi de 300-12.5 mg tablet Discontinued 1 {tbl} PO DAILY October 14, 2022 12:00am December 20, 2022 4:58pm blood pressure Start: 10-14-2022 End: 12-20-2022 take 1 tablet by mouth once daily Irbesartan-Hydrochlorothiazide Discontin ued 1 TABLET PO DAILY October 13, 2022 11:00pm December 20, 2022 3:58pm Start: 10-14-2022 End: 12-20-2022 take 1 tablet by eddi th once daily Irbesartan-Hydrochlorothiazide 150-12.5 mg per tablet Take 1 tablet by mouth once daily. 0 Active Comment on above: Take 1 tablet by eddi th once daily. hydroCHLOROthiazide 25 mg / losartan potassium 100 mg oral tablet (20 sources) Thiazide Diuretic, Angiotensin 2 Receptor Malick Start: 08-19-2017 End: 05-14-2022 Start: 08-19-2017 End: 05-14-2022 Start: 01-15-2016 End: 12-22-2022 Losartan-Hydrochlorothiazide (Hyzaar) 100-25 mg tablet Discontinued 1 {tbl} PO daily August 19, 2017 12:00am May 14, 2022 2:08pm Comment on above: Take 1 tablet by eddi th once daily. ibuprofen 200 mg oral capsule (20 sources) Nonsteroidal Anti-inflammatory Drug End: 08-30-2023 Ibuprofen 200 mg cap Take by mouth every 6 hours as needed. 0 08/30/2023 Discontinued Comment on above: Take by mouth every 6 hours as needed. insulin degludec 100 unt/ml injectable solution (20 sources) Insulin Analog Start: 12-12-2023 End: 02-28-2024 Start: 12-12-2023 End: 02-28-2024 Insulin Degludec (Tresiba U- 100 Insulin) 100 unit/mL solution Discontinued 0 SC .COMPLEX December 12, 2023 12:00am February 28, 2024 2:05pm subcutaneously; 70 units breakfast, 66 dinner, 60 @ HS Start: 11-18-2023 End: 08-29-2024 TRESIBA U-100 INSULIN 100 un it/mL injection 60 units with breakfast, 60 units with dinner, 54 units at bedtime. 11/18/2023 08/29/2024 Discontinued Start: 11-18-2023 TRESIBA U-100 INSULIN 100 unit/mL injection 66 units with breakfast, 66 units with dinner, 64 units at bedtime. 11/18/2023 Active Start: 11-18-2023 TRESIBA U-100 INSULIN 100 unit/mL injection 70 units with breakfast, 60 units with dinner, 54 units at bedtime. 11/18/2023 Active insulin detemir (20 sources) Insulin Analogue Start: 12-06-2023 End: 02-28-2024 insulin detemir U-100 (Levem ir FlexTouch U100 Insulin) Discontinued 74 U SC 3 times per day with meals December 06, 2023 2:44pm February 28, 2024 2:05pm diabetes 70 units at break, 60 units at lunch, 60 units at HS Start: 12-06-2023 End: 02-28-2024 insulin detemir U-100 (Levem ir FlexTouch U100 Insulin) Discontinued 74 U SC 3 times per day with meals December 06, 2023 2:44pm February 28, 2024 2:05pm 70 units at break, 60 units at lunch, 60 units at HS Start: 02-23-2023 End: 12-06-2023 insulin detemir U-100 (Levem ir FlexTouch U100 Insulin) Discontinued 74 U SC 3 times per day with meals February 23, 2023 1:32pm December 06, 2023 2:46pm diabetes Start: 02-23-2023 End: 12-06-2023 insulin detemir U-100 (Levem ir FlexTouch U100 Insulin) Discontinued 74 U SC 3 times per day with meals February 23, 2023 1:32pm December 06, 2023 2:46pm Start: 02-23-2023 insulin detemi r U-100 (Levemir FlexTouch U100 Insulin) Active 74 UNIT SC 3 times per day with meals February 23, 2023 12:32pm Start: 02-23-2023 insulin detemi r U-100 (Levemir FlexTouch U100 Insulin) Active 74 UNIT SC 3 times per day with meals February 23, 2023 1:32pm Start: 10-14-2022 End: 02-23-2023 insulin detemir U-100 Discon tinued 78 U SC 3 times per day with meals October 14, 2022 10:12am February 23, 2023 1:36pm diabetes Start: 10-14-2022 End: 02-23-2023 insulin detemir U-100 Discon tinued 78 U SC 3 times per day with meals October 14, 2022 10:12am February 23, 2023 1:36pm Start: 10-14-2022 End: 02-23-2023 insulin detemir U-100 Discon tinued 78 UNIT SC 3 times per day with meals October 14, 2022 9:12am February 23, 2023 12:36pm Start: 10-14-2022 End: 02-23-2023 insulin detemir U-100 Discon tinued 78 UNIT SC 3 times per day with meals October 14, 2022 10:12am February 23, 2023 1:36pm Start: 10-14-2022 insulin detemi r U-100 Active 78 UNIT SC 3 times per day with meals October 14, 2022 10:12am Start: 10-14-2022 insulin detemi r U-100 (Levemir FlexTouch U100 Insulin) Active 78 UNIT SC 3 times per day with meals October 14, 2022 10:12am Start: 05-14-2022 End: 10-14-2022 insulin detemir U-100 (Levem ir FlexTouch U100 Insulin) Discontinued 84 U SC 3 times per day with meals May 14, 2022 2:05pm October 14, 2022 10:19am Start: 05-14-2022 End: 10-14-2022 insulin detemir U-100 (Levem ir FlexTouch U100 Insulin) Discontinued 84 UNIT SC 3 times per day with meals May 14, 2022 1:05pm October 14, 2022 9:19am Start: 05-14-2022 End: 10-14-2022 insulin detemir U-100 (Levem ir FlexTouch U100 Insulin) Discontinued 84 UNIT SC 3 times per day with meals May 14, 2022 2:05pm October 14, 2022 10:19am Start: 05-14-2022 insulin detemi r U-100 (Levemir FlexTouch U100 Insulin) Active 84 UNIT SC 3 times per day with meals May 14, 2022 2:05pm Start: 05-14-2022 insulin detemi r U-100 (Levemir FlexTouch U-100 Insuln) Active 84 UNIT SC 3 times per day with meals May 14, 2022 2:05pm Start: 05-14-2022 insulin detemi r U-100 (Levemir FlexTouch U-100 Insuln) Active 84 UNIT SC 3 times per day with meals May 14, 2022 1:05pm Start: 08-19-2017 insulin detemi r U-100 (Levemir FlexTouch U-100 Insuln) Active [place] August 19, 2017 8:09am Start: 08-19-2017 End: 05-14-2022 insulin detemir U-100 (Levem ir FlexTouch U100 Insulin) Discontinued [place] August 18, 2017 11:00pm May 14, 2022 1:10pm Start: 08-19-2017 End: 05-14-2022 insulin detemir U-100 (Levem ir FlexTouch U100 Insulin) Discontinued [place] August 19, 2017 12:00am May 14, 2022 2:10pm Start: 08-19-2017 End: 05-14-2022 insulin detemir U-100 (Levem ir FlexTouch U-100 Insuln) Discontinued [place] August 19, 2017 12:00am May 14, 2022 2:10pm Start: 08-19-2017 End: 05-14-2022 insulin detemir U-100 (Levem ir FlexTouch U-100 Insuln) Discontinued [place] August 18, 2017 11:00pm May 14, 2022 1:10pm Start: 08-19-2017 insulin detemi r U-100 (Levemir FlexTouch U-100 Insuln) Active [place] August 18, 2017 11:00pm Start: 08-19-2017 insulin detemi r U-100 (Levemir FlexTouch U-100 Insuln) Active [place] August 19, 2017 12:00am Start: 05-28-2014 Levemir Subcut aneous, BID Start Date: 05/28/14 Status: Ordered Start: 06-14-2011 End: 09-26-2024 LEVEMIR 100 UNIT/ML SOLN Mike e as directed INSULIN DETEMIR [id number] Myrna Casillas inject 74 [IU] by solorzano bcutaneous injection three times daily insulin detemir U-100 (LEVEMIR) 100 unit/mL injection Indications: IgA monoclonal gammopathy Inject 74 Units subcutaneously three times a day. 0 Active insulin detemir U-100 (LEVEMIR) 100 unit/mL injection Indications: IgA monoclonal gammopathy Injects 84 units at breakfast, 84 units at dinner, 84 units at bedtime. 0 Active Comment on above: Injects 84 units at breakfast, 84 units at dinner, 84 units at bedtime. Inject 78 Units subc utaneously three times daily. Injects 78 units Inject 74 Units subc utaneously three times a day. 70 breakfast, 70 evelyn ch, and 74 bedtime. irbesartan 300 mg oral tablet (20 sources) Angiotensin 2 Receptor Malick Start: 05-14-2022 End: 10-14-2022 10 ml iron sucrose 20 mg/ml injection (3 sources) Parenteral Iron Replacement Start: 09-19-2024 End: 09-19-2024 200 mg, INTRAVENOUS, ONCE, 1 dose, On Tue09/19/24 at 0930, Please conduct a 30 minute post dose observation. Start: 09-10-2024 End: 09-10-2024 200 mg, INTRAVENOUS, ONCE, 1 dose, On 09/10/24 at 1000, Please conduct a 30 minute post dose observation. Start: 09-06-2024 End: 09-06-2024 200 mg, INTRAVENOUS, ONCE, 1 dose, On Bhavana 09/06/24 at 1530, Please conduct a 30 minute post dose observation. L.acidophilus-L.rhamnosus (PROBIOTIC) 15 billion cell capsule (20 sources) take 1 capsule by mouth once daily L.acidophilus-L.rhamnosus (PROBIOTIC) 15 billion cell capsule Take 1 capsule by mouth once daily. 0 Active Comment on above: Take 1 capsule by [facility] once daily. lactobacillus acidophilus 10 mg oral tablet (18 sources) Sta rt: 3 End : 3 take 1 capsule by mouth once daily Lactobacillus Acidophilus capsule Discontinued 10 mg PO DAILY October 14, 2022 12:00am December 16, 2022 10:26pm lenalidomide 15 mg oral capsule (20 sources) Thalidomide Analog Sta rt: 3 End : 4 Lenalidomide 15 mg capsule Discontinued 15 mg PO DAILY February 23, 2023 12:00am December 06, 2023 2:32pm swallow whole with glass of water; do not open, crush, chew , break, or dissolve TAKE DAILY FOR 21 DAYS, THEN OFF 7 DAYS; REPEAT Start: 01-26-2023 End: 02-21-2023 lenalidomide (REVLIMID) 15 m g capsule Indications: Multiple myeloma not having achieved remission (HCC) TAKE 1 CAPSULE BY MOUTH 1 TIME A DAY FOR 21 DAYS ON THEN 7 DAYS OFF 21 capsule 0 02/21/2023 Active Start: 09-24-2022 End: 01-26-2023 Lenalidomide 25 mg capsule D iscontinued 25 mg PO .COMPLEX October 14, 2022 12:00am January 20, 2023 1:52pm 25 mg orally; swallow whole with glass of water; do not open, crush, chew , break, or dissolve Comment on above: Take 1 capsule by mo [facility] once daily. for 21 days. Then off 1 week. TAKE 1 CAPSULE BY MO RUST 1 TIME A DAY FOR 21 DAYS ON THEN 7 DAYS OFF Take 1 capsule by mo [facility] once daily. For 21 days then off 1 week. levoFLOXacin 500 mg oral tablet (15 sources) Quinolone Antimicrobial Start: 05-21-19 End: 06-01-19 25 lisinopril 10 mg oral tablet (2 sources) Angiotensin Converting Enzyme Inhibitor Start: 06-14-19 12 End: 01-15-20 16 take 1 tablet by mouth once daily LISINOPRIL 10 MG TABS One tablet by mouth daily LISINOPRIL [id number] Katey Mae MD Magnesium Oxide-Mg Amino Acid Chelate (MAGNESIUM) 300 mg cap (3 sources) Start: 01-15-20 16 take 1 capsule by mouth once daily Magnesium Oxide-Mg Amino Acid Chelate (MAGNESIUM) 300 mg cap Take 1 capsule by mouth once daily. 0 01/15/2016 Active Comment on above: Take 1 capsule by mo ut once daily. mecobalamin/L-mefolat e/B6 phos (METANX ORAL) (20 sources) End: 04-10-20 24 take 1 tablet by mouth twice daily mecobalamin/L-mefola te/B6 phos (METANX ORAL) Take 1 tablet by mouth two times a day. 0 08/03/2023 Discontinued take 1 tablet by eddi th twice daily mecobalamin/L-mefolate/B6 phos (METANX O RAL) Take 1 tablet by mouth two times a day. 0 Active take 1 tablet by eddi th twice daily mecobalamin/L-mefolate/B6 phos (METANX O RAL) Take 1 tablet by mouth twice daily. 0 Active Comment on above: Take 1 tablet by eddi th twice daily. Take 1 tablet by eddi th two times a day. metaxalone 800 mg oral tablet (2 sources) Start: 2023 End: 2023 take 1 tablet by mouth every eight hours as needed metaxalone (SKELAXIN) 800 mg tablet Take 1 tablet by mouth three times a day as needed (Back spasms.). 90 tablet 0 09/28/2023 09/28/2023 Discontinued metFORMIN hydrochloride 1000 mg oral tablet (20 sources) Biguanide Start: 2011 End: 2024 Comment on above: Take 1,000 mg by eddi th twice daily with meals. Methylprednisolone (20 sources) Corticosteroid Start: 2018 End: 2019 take 1 tablet by mouth once Methylprednisolone (Medrol (Jarad)) 4 mg tablets,dose pack Discontinued 0 PO per package directions 21 February 20, 2019 12:00am May 11, 2019 3:34pm PO PER PKG DIR Start: 02-20-2019 End: 05-11-2019 milk thistle extract 250 mg oral capsule (2 sources) Start: 01-15-2016 End: 06-17-2016 take 1 tablet by mouth once daily MILK THISTLE 250 MG CAPS One tablet by mouth daily MILK THISTLE [id number] Lisette Wright LPN MULTIPLE VITAMIN (1 source) Start: 01-15-2016 take 1 tablet by mouth once daily MULTIVITAMINS TABS One tablet by mouth daily MULTIPLE VITAMIN Katey Mae MD Multivitamin capsule (20 sources) take 1 capsule by mouth once daily Multivitamin capsule Indications: IgA monoclonal gammopathy Take 1 capsule by mouth once daily. 0 Active Comment on above: Take 1 capsule by [facility] once daily. naproxen 375 mg oral tablet (15 sources) Nonsteroidal Anti-inflammatory Drug Start: 05-17-2024 End: 05-21-2024 Tiotropium-Olodater ol (20 sources) Anticholinergic, beta2-Adrenergic Agonist Start: 08-19-2017 End: 12-16-2017 Start: 08-19-2017 End: 12-16-2017 Tiotropium-Olodaterol (Stiol to Respimat) 2.5-2.5 mcg/actuation mist Discontinued 2 NMA INHALATION Q24H August 19, 2017 12:00am December 16, 2017 3:56pm Start: 08-19-2017 End: 12-16-2017 Tiotropium-Olodaterol (Stiol to Respimat) 2.5-2.5 mcg/actuation mist Discontinued 2 PUFF INHALATION Q24H August 18, 2017 11:00pm December 16, 2017 2:56pm Start: 08-19-2017 End: 12-16-2017 Start: 03-26-2016 STIOLTO RESPIM AT 2.5-2.5 MCG/ACT AERS 2 puffs daily TIOTROPIUM BROMIDE-OLODATEROL [id number] Tessy Trinh CNP OMEGA-3 FATTY ACIDS CPDR (1 source) Start: 01-15-2016 take 1 tablet by mouth once daily OMEGA 3 CPDR One tablet by mouth daily OMEGA-3 FATTY ACIDS CPDR [id number] Katey Mae MD omeprazole 40 mg delayed release oral capsule (20 sources) Proton Pump Inhibitor Start: 09-25-2022 End: 12-20-2022 Comment on above: Take 1 capsule by [facility] once daily. ondansetron 8 mg disintegrating oral tablet (20 sources) Serotonin-3 Receptor Antagonist Start: 09-26-2024 End: 09-26-2024 8 mg, ORAL, NOW, 1 dose, On Tue09/26/24 at 1230, Place tablet on tongue and allow to dissolve; do not chew. Open packaging using dry hands; do not push tablet through packaging. Start: 12-12-2023 End: 02-28-2024 Start: 10-12-2022 End: 08-30-2023 Start: 10-12-2022 End: 08-30-2023 take 1 tablet by mouth every eight hours as needed for nausea and vomiting Ondansetron 8 mg tablet,disintegrating Discontinued 8 mg PO Q8H as needed for nausea and vomiting October 14, 2022 10:17am August 30, 2023 1:01pm Start: 09-25-2022 End: 02-28-2024 take 1 tablet by mouth every eight hours as needed for nausea ondansetron (ZOFRAN) 8 mg tablet Indications: Multiple myeloma not having achieved remission (HCC) Take 1 tablet by mouth every 8 hours as needed for nausea/vomiting. 30 tablet 2 05/26/2023 Active Comment on above: Take 1 tablet by eddi th every 8 hours as needed for nausea/vomiting. OTC PRODUCT (20 sources) OTC PRODUCT Take by mouth once daily. Prost-metto 0 Active Comment on above: Take by mouth once d aily. Prost-metto OXYGEN, HOME THERAPY, (20 sources) End: 08-30-2023 OXYGEN, HOME THERAPY, 2 L/min by Nasal Cannula route as directed. 0 08/30/2023 Discontinued OXYGEN, HOME THE RAPY, 2 L/min by Nasal Cannula route as directed. 0 Active OXYGEN, HOME THE RAPY, by Nasal Cannula route as directed. 0 Active Comment on above: by Nasal Cannula rou te as directed. 2 L/min by Nasal Can nula route as directed. pantoprazole 40 mg delayed release oral tablet (20 sources) Proton Pump Inhibitor Start: 12-20-2022 End: 07-24-2024 Start: 12-20-2022 End: 02-23-2023 take 1 tablet by mouth twice daily Pantoprazole 40 mg tablet,delayed release (DR/EC) Discontinued 40 mg PO TWICE A DAY 60 2 January 18, 2023 11:44am February 23, 2023 1:52pm Comment on above: Take 40 mg by mouth twice daily. polyethylene glycol 3350 [id number] mg / potassium chloride 2970 mg / sodium bicarbonate 6740 mg / sodium chloride 5860 mg / sodium sulfate 08448 mg powder for oral solution (2 sources) Osmotic Laxative Start: 07-17-19 End: 07-17-19 peg 3350-Electrolytes (GOLYTELY) 236-22.74-6.74 -5.86 gram suspension Indications: History of colon cancer Take 4,000 mL by mouth one time only for 1 dose. Refer to printed prep instructions from your provider. 4000 mL 07/16/2024 07/16/2024 microencapsulated potassium chloride 20 meq extended release oral tablet (20 sources) Start: 01-23-20 End: 08-07-19 take 1 tablet by mouth once daily potassium chloride ER (KLOR-CON) 20 mEq tablet Indications: Hypokalemia Take 1 tablet by mouth once daily. 90 tablet 1 01/23/2024 08/06/2024 Discontinued Start: 12-06-2023 End: 09-21-2024 Start: 05-30-2023 End: 01-23-2024 take 1 tablet by mouth twice daily potassium chloride ER (KLOR-CON) 20 mEq tablet Indications: Hypokalemia Take 1 tablet by mouth two times a day. 60 tablet 2 05/30/2023 01/23/2024 Discontinued Start: 03-15-2023 End: 05-30-2023 take 15 mL by mouth twice daily potassium chloride 20 mEq/15 mL solution Indications: Multiple myeloma not having achieved remission (HCC) Take 15 mL by mouth two times a day. 2838 mL 1 05/26/2023 05/30/2023 Discontinued Start: 12-20-2022 End: 01-18-2023 Start: 12-16-2022 End: 03-15-2023 take 1 tablet by mouth once daily KLOR-CON M20 20 mEq tablet take 1 tablet by mouth every day 30 tablet 2 01/11/2023 03/15/2023 Discontinued Comment on above: Take 1 tablet by eddi th once daily. Take 20 mEq by mouth once daily. take 1 tablet by eddi th every day Take 15 mL by mouth two times a day. Take 1 tablet by edid th two times a day. pravastatin sodium 10 mg oral tablet (2 sources) HMG-CoA Reductase Inhibitor Start: 2 End: 6 take 1 tablet by mouth at bedtime PRAVASTATIN SODIUM 10 MG TABS One tablet by mouth at bedtime. PRAVASTATIN SODIUM [id number] Katey Mae MD predniSONE 20 mg oral tablet (20 sources) Start: 3 End: 3 take 2 tablets by mouth once daily, then take 1 tablet by mouth once daily, then take 0.5 tablet by mouth once daily predniSONE (DELTASONE) 20 mg tablet Take 2 tablets by mouth once daily for 3 days, THEN 1 tablet once daily for 3 days, THEN 0.5 tablets once daily for 3 days. 11 tablet 0 11/11/2022 11/20/2022 Start: 03-21-2022 End: 03-31-2022 Start: 04-01-2021 End: 04-06-2021 Start: 04-01-2021 End: 04-06-2021 take 40 mg by mouth once daily Prednisone Discontinued 40 MG PO DAILY 01 27April 01, 2021 12:00am April 06, 2021 12:01am Start: 05-11-2019 End: 05-14-2020 Comment on above: Take 2 tablets by mo uth once daily for 3 days, THEN 1 tablet once daily for 3 days, THEN 0.5 tablets once daily for 3 days. 0.25 mg, 0.5 mg dose 1.5 ml semaglutide 1.34 mg/ml pen injector (20 sources) End: 09-19-2024 INV SEMAGLUTIDE, OZEMPIC,, 2 MG/1.5 ML, PEN (IRB 20-853) Inject 0.5 mg subcutaneously one time a week. For Investigation Drug Use Only. PI: Dr. Aleks Finn 09/19/2024 Discontinued INV SEMAGLUTIDE, OZEMPIC,, 2 MG/1.5 ML, PEN (IRB 20-853) Inject 0.25 mg subcutaneously one time a week. For Investigation Drug Use Only. PI: Dr. Aleks Finn 0 Active Semaglutide (20 sources) Start: 06-01-2024 End: 08-01-2024 Start: 06-01-2024 End: 08-01-2024 Semaglutide (Ozempic) 0.25 m g or 0.5 mg (2 mg/3 mL) pen injector Discontinued 0.5 mg SC WE June 01, 2024 4:37pm August 01, 2024 1:11pm for 4 weeks Start: 06-01-2024 Semaglutide (O zempic) 0.25 mg or 0.5 mg (2 mg/3 mL) pen injector Active 0.5 mg SC WE June 01, 2024 4:37pm for 4 weeks Start: 12-06-2023 End: 06-01-2024 Start: 12-06-2023 End: 06-01-2024 Semaglutide (Ozempic) 0.25 m g or 0.5 mg (2 mg/3 mL) pen injector Discontinued 0.25 mg SC December 06, 2023 12:00am June 01, 2024 4:39pm for 4 weeks sucralfate 1000 mg oral tablet (3 sources) Aluminum Complex Start: 07-22-2023 End: 08-03-2023 take 1 tablet by mouth four times daily sucralfate (CARAFATE) 1 gram tablet Take 1 tablet by mouth four times daily. (mixed with a little bit of water to make a slurry). 120 tablet 5 07/22/2023 08/03/2023 Discontinued Comment on above: Take 1 tablet by eddi four times daily. (mixed with a little bit of water to make a slurry). Sulfamethoxazole (7 sources) Sulfonamide Antimicrobial End: 02-24-2023 SULFAMETHOXAZOLE ORAL Take by mouth two times a day. 0 02/24/2023 Discontinued SULFAMETHOXAZOLE ORAL Take by mouth two times a day. 0 Active Comment on above: Take by mouth two ti mes a day. traMADol hydrochloride 50 mg oral tablet (20 sources) Opioid Agonist Start: 05-25-2019 End: 01-08-2020 7 actuat umeclidinium 0.0625 mg/actuat / vilanterol 0.025 mg/actuat dry powder inhaler (20 sources) Anticholinergic, beta2-Adrenergic Agonist Start: 07-15-2023 End: 12-12-2023 Start: 07-15-2023 End: 12-12-2023 Umeclidinium-Vilanterol (Ano ro Ellipta) 62.5-25 mcg/actuation blister with device Discontinued 1 NMA INHALATION daily 60 3 July 15, 2023 12:00am December 12, 2023 1:56pm Start: 12-09-2022 Umeclidinium-V ilanterol (Anoro Ellipta) 62.5-25 mcg/actuation blister with device Active 1 INH INHALATION daily 60 December 09, 2022 12:00am Start: 04-01-2021 End: 08-07-2021 Umeclidinium-Vilanterol (Ano ro Ellipta) 62.5-25 mcg/actuation blister with device Discontinued 1 INH INHALATION Q24H 60 April 01, 2021 3:41pm August 07, 2021 10:38am Start: 04-01-2021 End: 08-07-2021 Umeclidinium-Vilanterol (Ano ro Ellipta) 62.5-25 mcg/actuation blister with device Discontinued 1 NMA INHALATION Q24H 60 3 April 01, 2021 1:00am August 07, 2021 10:38am Start: 04-01-2021 End: 08-07-2021 Umeclidinium-Vilanterol (Ano ro Ellipta) 62.5-25 mcg/actuation blister with device Discontinued 1 NMA INHALATION Q24H 60 April 01, 2021 1:00am August 07, 2021 10:38am Start: 04-01-2021 End: 08-07-2021 Start: 04-01-2021 End: 08-07-2021 Umeclidinium-Vilanterol (Ano ro Ellipta) 62.5-25 mcg/actuation blister with device Discontinued 1 INH INHALATION Q24H 60 April 01, 2021 12:00am August 07, 2021 9:38am Start: 04-01-2021 End: 08-07-2021 Umeclidinium-Vilanterol (Ano ro Ellipta) 62.5-25 mcg/actuation blister with device Discontinued 1 INH INHALATION Q24H 60 April 01, 2021 1:00am August 07, 2021 10:38am Start: 11-01-2018 End: 08-30-2023 take 1 puff(s) by inhalation once daily as needed ANORO ELLIPTA 62.5-25 mcg/actuation inhaler Inhale 1 Puff as instructed once daily as needed. 0 11/01/2018 02/17/2022 Discontinued Start: 05-04-2018 End: 02-18-2020 Start: 05-04-2018 End: 02-18-2020 Umeclidinium-Vilanterol (Ano ro Ellipta) 62.5-25 mcg/actuation blister with device Discontinued 1 NMA INHALATION Q24H 3 3 October 31, 2018 12:00am February 18, 2020 8:11am Start: 05-04-2018 End: 02-18-2020 Umeclidinium-Vilanterol (Ano ro Ellipta) 62.5-25 mcg/actuation blister with device Discontinued 1 INH INHALATION Q24H 3 October 30, 2018 11:00pm February 18, 2020 7:11am Start: 05-04-2018 End: 02-18-2020 Start: 11-03-2017 End: 02-20-2018 Start: 11-03-2017 End: 02-20-2018 Umeclidinium-Vilanterol (Ano ro Ellipta) 62.5-25 mcg/actuation blister with device Discontinued 1 NMA INHALATION Q24H 3 3 November 03, 2017 1:26pm February 20, 2018 3:03pm Chronic obstructive pulmonary disease, unspecified Start: 11-03-2017 End: 02-20-2018 Umeclidinium-Vilanterol (Ano ro Ellipta) 62.5-25 mcg/actuation blister with device Discontinued 1 INH INHALATION Q24H 3 November 03, 2017 12:26pm February 20, 2018 2:03pm Start: 11-03-2017 End: 02-20-2018 Start: 03-25-2016 End: 06-17-2016 take 1 puff(s) by inhalation once daily ANORO ELLIPTA 62.5-25 MCG/INH AEPB 1 puff INH daily UMECLIDINIUM-VILANTEROL [id number] Lisette Wright LPN Comment on above: Inhale 1 Puff as ins tructed once daily as needed. Inhale 1 Puff as ins tructed once daily. vardenafil 10 mg oral tablet (2 sources) Phosphodiesterase 5 Inhibitor Start: 06-14-2011 End: 01-15-2016 LEVITRA 10 MG TABS Take as directed VARDENAFIL HCL [id number] Myrna Casillas vitamin b12 0.5 mg oral tablet (20 sources) Vitamin B12 Start: 08-19-2017 End: 12-16-2017 Start: 01-15-2016 take 1 tablet by eddi th once daily B-12 1000 MCG CR-TABS One half tablet by mouth daily CYANOCOBALAMIN [id number] Katey Mae MD 100 ml zoledronic acid 0.04 mg/ml injection (20 sources) Bisphosphonate Start: 09-26-2024 End: 09-26-2024 4 mg, INTRAVENOUS, Administer over 15 Minutes, ONCE, 1 dose, On Tue09/26/24 at 1230, Hazardous Potential Reproductive Risk Drug: Use appropriate PPE. Start: 07-04-2024 End: 07-04-2024 4 mg, INTRAVENOUS, Administe r over 15 Minutes, ONCE, 1 dose, On Tue07/04/24 at 1130, Hazardous Potential Reproductive Risk Drug: Use appropriate PPE. Start: 06-01-2024 Start: 06-01-2024 Zoledronic Aci d 4 mg/5 mL solution Active 0 mg .ROUTE .COMPLEX June 01, 2024 1:00am bones every 3 months; once monthly Start: 06-01-2024 Zoledronic Aci d 4 mg/5 mL solution Active mg .Route June 01, 2024 1:00am once monthly Start: 04-11-2024 End: 04-11-2024 4 mg, INTRAVENOUS, Administe r over 15 Minutes, ONCE, 1 dose, On Tue04/11/24 at 1130, Hazardous Potential Reproductive Risk Drug: Use appropriate PPE. Start: 03-13-2024 End: 03-13-2024 4 mg, INTRAVENOUS, Administe r over 15 Minutes, ONCE, 1 dose, On Tue03/13/24 at 1130, Hazardous Potential Reproductive Risk Drug: Use appropriate PPE. Start: 01-18-2024 End: 01-18-2024 4 mg, INTRAVENOUS, Administe r over 15 Minutes, ONCE, 1 dose, On Tue01/18/24 at 1200, Hazardous Potential Reproductive Risk Drug: Use appropriate PPE. Start: 12-07-2023 End: 12-07-2023 zoledronic kz-neytifmv-5.9Na Cl 4 mg iv piggyback 100 mL (ZOMETA) Start: 11-09-2023 End: 11-09-2023 zoledronic ks-cbktmpyw-5.9Na Cl 4 mg iv piggyback 100 mL (ZOMETA) Start: 09-14-2023 End: 09-14-2023 zoledronic vp-zjglftif-6.9Na Cl 4 mg iv piggyback 100 mL (ZOMETA) (20 sources) Start: 07-18-2024 End: 08-01-2024 Start: 05-17-2024 Start: 02-28-2024 Start: 02-28-2024 End: 05-17-2024 Start: 12-12-2023 End: 02-28-2024 Start: 12-06-2023 End: 02-28-2024 Start: 02-23-2023 End: 12-12-2023 Start: 02-23-2023 Start: 02-23-2023 End: 12-06-2023 Start: 02-23-2023 Start: 02-23-2023 End: 12-06-2023 Start: 02-23-2023 Start: 01-18-2023 Start: 01-18-2023 End: 01-18-2023 Start: 10-14-2022 End: 02-23-2023 Start: 10-14-2022 End: 02-23-2023 Start: 10-14-2022 End: 01-20-2023 Start: 10-14-2022 End: 12-16-2022 Start: 05-14-2022 End: 10-14-2022 Start: 05-14-2022 End: 10-14-2022 Start: 12-16-2017 End: 08-30-2023 Start: 12-16-2017 Start: 08-19-2017 End: 09-21-2024 Start: 08-19-2017 Start: 08-19-2017 End: 12-16-2022 Start: 08-19-2017 End: 05-14-2022 Problems Active Problems Problem Classification Problem Date Documented Da te Episodic/Chronic Abdominal pain (1 source) Flank pain; 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: [Unspecified abdominal pain] 02-23-2023 Episodic Acute bronchitis (1 source) Acute bronchitis due to rhinovirus; 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: [Acute bronchitis due to rhinovirus] 03-13-2024 Episodic Administrative/social admission (1 source) Patient encounter status; 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: [Counseling, unspecified] Episodic Bacterial infection; unspecified site (20 sources) Drug resistance to antibacterial agent; 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: [Resistance to multiple antibiotics] 02-25-2023 Episodic Cancer of colon (20 sources) Malignant tumor of ascending colon; 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: [Malignant neoplasm of ascending colon] Onset: 4 03-16-2023 Chronic Cancer of prostate (1 source) Malignant tumor of prostate; 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: [Malignant neoplasm of prostate] 03-01-2023 Chronic Cardiac dysrhythmias (20 sources) Cardiac rhythm AND/OR rate finding; 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: [Atrial fibrillation] Onset: 5 05-11-2022 Chronic Cardiac dysrhythmias (20 sources) Palpitations; 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: [Palpitations] Onset: 2 06-14-2011 Episodic Chronic obstructive pulmonary disease and bronchiectasis (20 sources) Chronic obstructive lung disease; 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: [Chronic obstructive pulmonary disease, unspecified] Onset: 6 02-23-2016 Chronic Comment on above: mild, 94% FEV1 moderate FEV 70% and not reversible. Congestive heart failure; nonhypertensive (20 sources) Acute exacerbation of chronic congestive heart failure; 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: [Acute on chronic diastolic (congestive) heart failure] Onset: 4 12-16-2022 Chronic Coronary atherosclerosis and other heart disease (20 sources) Atherosclerotic heart disease of [place] coronary artery without angina pectoris; 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: [Coronary arteriosclerosis] Onset: 6 04-09-2016 Chronic Deficiency and other anemia (20 sources) Iron deficiency anemia due to blood loss; 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: [Iron deficiency anemia secondary to blood loss (chronic)] Onset: 3 12-30-2022 Chronic Deficiency and other anemia (1 source) Iron deficiency anemia secondary to blood loss (chronic); 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: [Iron deficiency anemia due to chronic blood loss] Onset: 3 Chronic Deficiency and other anemia (20 sources) Chronic anemia; 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: [Anemia, unspecified] 12-19-2022 Episodic Deficiency and other anemia (7 sources) Anemia, unspecified; 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: [Anemia, unspecified] Onset: 5 12-20-2022 Episodic Deficiency and other anemia (20 sources) Microcytic anemia; 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: [Iron deficiency anemia, unspecified] 08-02-2024 Episodic Deficiency and other anemia (2 sources) Iron deficiency anemia; 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: [Iron deficiency anemia, unspecified] 10-17-2024 Episodic Diabetes mellitus with complications (2 sources) Type 2 diabetes mellitus with hyperglycemia; 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: [Type 2 diabetes mellitus with diabetic nephropathy] Onset: 5 Chronic Diabetes mellitus without complication (20 sources) Type 1 diabetes mellitus without complications; 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: [Diabetes mellitus] Onset: 2 06-14-2011 Chronic Comment on above: He has diabetes is b eing managed by endocrinology. Diseases of white blood cells (20 sources) Leukocytosis; 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: [Elevated white blood cell count, unspecified] Onset: 4 05-03-2023 Chronic Disorders of lipid metabolism (20 sources) Hyperlipidemia; 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: [Hyperlipidemia, unspecified] Onset: 2 06-14-2011 Chronic Esophageal disorders (20 sources) Gastroesophageal reflux disease; 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: [Gastro-esophageal reflux disease without esophagitis] Onset: 4 05-12-2023 Chronic Essential hypertension (20 sources) Hypertensive disorder; 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: [Essential (primary) hypertension] Onset: 2 06-14-2011 Chronic Fluid and electrolyte disorders (20 sources) Hyponatremia; 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: [Hypo-osmolality and hyponatremia] Onset: 4 Resolved: 4 12-16-2022 Episodic Genitourinary symptoms and ill-defined conditions (15 sources) Urge incontinence of urine; 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: [Urge incontinence] 08-30-2023 Chronic Genitourinary symptoms and ill-defined conditions (20 sources) Delay when starting to pass urine; 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: [Hesitancy of micturition] Onset: 4 12-16-2017 Episodic Heart valve disorders (20 sources) Heart murmur; 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: [Cardiac murmur, unspecified] Onset: 2 06-14-2011 Episodic Hyperplasia of prostate (20 sources) Benign prostatic hyperplasia; 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: [Benign prostatic hyperplasia without lower urinary tract symptoms] 01-18-2023 Chronic Hypertension with complications and secondary hypertension (1 source) Hypertensive heart disease with heart failure; 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: [Hypertensive heart disease with heart failure] Onset: 5 Chronic Multiple myeloma (20 sources) Multiple myeloma; 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: [Multiple myeloma not having achieved remission] Onset: 2 Chronic Neoplasms of unspecified nature or uncertain behavior (20 sources) Smoldering myeloma; 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] Onset: 5 Chronic Non-Hodgkin`s lymphoma (20 sources) History of multiple myeloma; 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: [Personal history of other malignant neoplasms of lymphoid, hematopoietic and related tissues] 12-16-2022 Episodic Nonspecific chest pain (20 sources) Chest pain, unspecified; 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: [Chest pain] Onset: 2 06-14-2011 Episodic Open wounds of head; neck; and trunk (3 sources) Open wound of abdomen; 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: [Unspecified open wound of abdominal wall, unspecified quadrant without penetration into peritoneal cavity, initial encounter] 05-26-2023 Episodic Other acquired deformities (20 sources) Lumbar spondylolisthesis; 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: [Spondylolisthesis, lumbar region] 11-15-2023 Episodic Other aftercare (3 sources) Surgical follow-up; 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: [Encounter for follow-up examination after completed treatment for conditions other than malignant neoplasm] 05-27-2023 Episodic Other aftercare (20 sources) Long-term current use of anticoagulant; 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: [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] 08-01-2024 Episodic Other aftercare (7 sources) Long-term current use of diuretic; 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: [Encounter for therapeutic drug level monitoring] 09-12-2024 Episodic Other aftercare (1 source) Encounter for therapeutic drug level monitoring; 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: [Encounter for therapeutic drug level monitoring] Onset: 5 Episodic Other aftercare (1 source) Other assisted (current) drug therapy; 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: [Other assisted (current) drug therapy] Onset: 5 Episodic Other connective tissue disease (1 source) Swelling of lower limb; 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: [Other specified soft tissue disorders] 01-26-2023 Episodic Other gastrointestinal disorders (20 sources) Malabsorption - iron; 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: [Intestinal malabsorption, unspecified] Onset: 3 12-30-2022 Chronic Other gastrointestinal disorders (1 source) Intestinal malabsorption, unspecified; 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: [Iron malabsorption (HCC)] Onset: 3 Chronic Other gastrointestinal disorders (1 source) Diarrhea of presumed infectious origin; 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: [Diarrhea, unspecified] 02-23-2023 Episodic Other gastrointestinal disorders (20 sources) Mass of colon; 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: [Other specified diseases of intestine] 02-25-2023 Episodic Other gastrointestinal disorders (2 sources) Disease of intestine, unspecified; 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: [Disease of intestine, unspecified] Onset: 3 Episodic Other gastrointestinal disorders (6 sources) History of gastritis; 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: [Personal history of other diseases of the digestive system] Onset: 5 10-04-2024 Episodic Other gastrointestinal disorders (2 sources) Occult blood in stools; 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: [Other fecal abnormalities] 10-17-2024 Episodic Other gastrointestinal disorders (1 source) Other fecal abnormalities; 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: [Occult blood positive stool] Onset: 5 Episodic Other lower respiratory disease (20 sources) Pulmonary edema; 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: [Chronic pulmonary edema] 12-16-2022 Chronic Other lower respiratory disease (7 sources) Chronic pulmonary edema; 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: [Pulmonary congestion and hypostasis] 12-16-2022 Chronic Other lower respiratory disease (20 sources) Dyspnea on exertion; 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: [Dyspnea] Onset: 6 02-23-2016 Episodic Other lower respiratory disease (20 sources) Dyspnea; 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: [Shortness of breath] 04-01-2021 Episodic Other lower respiratory disease (12 sources) Other forms of dyspnea; 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: [Other respiratory abnormalities] Onset: 5 05-14-2022 Episodic Other lower respiratory disease (11 sources) Cough; 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: [Cough] 07-05-2022 Episodic Other lower respiratory disease (20 sources) Hypoxia; 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: [Hypoxemia] 08-03-2022 Episodic Other lower respiratory disease (10 sources) Shortness of breath; 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: [Shortness of breath] Onset: 5 11-24-2022 Episodic Other lower respiratory disease (4 sources) Cough; 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: [Acute cough] 03-12-2024 Episodic Other lower respiratory disease (3 sources) Rib pain; 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: [Pleurodynia] 06-06-2024 Episodic Other lower respiratory disease (20 sources) History of chronic obstructive airway disease; 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: [Personal history of other diseases of the respiratory system] 08-01-2024 Episodic Other lower respiratory disease (10 sources) Wheezing; 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: [Wheezing] 09-04-2024 Episodic Other lower respiratory disease (1 source) Wheezing; 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: [Wheezing] Onset: 5 Episodic Other male genital disorders (20 sources) Male erectile dysfunction, unspecified; 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: [Erectile dysfunction] 02-20-2019 Chronic Other nervous system disorders (1 source) Other chronic pain; 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: [Other chronic pain] Onset: 5 Chronic Other nutritional; endocrine; and metabolic disorders (20 sources) Obesity; 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: [Obesity, unspecified] Onset: 6 02-23-2016 Chronic Other nutritional; endocrine; and metabolic disorders (17 sources) Obesity, unspecified; 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: [Obesity, unspecified] Chronic Other nutritional; endocrine; and metabolic disorders (20 sources) Body mass index 40+ - severely obese; 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: [Morbid (severe) obesity due to excess calories] Onset: 4 05-12-2023 Chronic Other nutritional; endocrine; and metabolic disorders (1 source) Morbid obesity; 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: [Morbid (severe) obesity due to excess calories] 07-16-2024 Chronic Other nutritional; endocrine; and metabolic disorders (1 source) Morbid (severe) obesity due to excess calories; 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: [Morbid obesity (HCC)] Onset: 5 Chronic Other skin disorders (20 sources) Eruption; 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: [Rash and other nonspecific skin eruption] 12-16-2022 Episodic Other skin disorders (2 sources) Rash and other nonspecific skin eruption; 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: [Rash and other nonspecific skin eruption] 12-16-2022 Episodic Other upper respiratory infections (1 source) Chronic sinusitis, unspecified; 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: [Unspecified sinusitis (chronic)] 03-12-2024 Chronic Otitis media and related conditions (15 sources) Acute non-suppurative otitis media - serous; 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: [Acute serous otitis media, left ear] 02-28-2024 Episodic Residual codes; unclassified (14 sources) Obstructive sleep apnea (adult) (pediatric); 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: [Obstructive sleep apnea (adult)(pediatric)] Onset: 5 Chronic Residual codes; unclassified (4 sources) Other specified postprocedural states; 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: [Other postprocedural status] Onset: 3 02-03-2023 Episodic Residual codes; unclassified (20 sources) Bilateral lower limb edema; 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: [Localized edema] 05-29-2024 Episodic Respiratory failure; insufficiency; arrest (adult) (20 sources) Dependence on supplemental oxygen; 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: [Dependence on supplemental oxygen] Onset: 4 05-12-2023 Chronic Comment on above: CONT O2 @ 2L Respiratory failure; insufficiency; arrest (adult) (20 sources) Hypoxemic respiratory failure; 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: [Respiratory failure, unspecified with hypoxia] 12-16-2022 Episodic Spondylosis; intervertebral disc disorders; other back problems (20 sources) Cervical disc disorder; 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: [Cervical disc disorder, unspecified, unspecified cervical region] Onset: 5 05-30-2019 Chronic Spondylosis; intervertebral disc disorders; other back problems (20 sources) Acute low back pain; 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: [Acute low back pain, unspecified back pain laterality, unspecified whether sciatica present] 09-28-2023 Episodic Unclassified (20 sources) Obstructive sleep apnea syndrome; 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: [Obstructive sleep apnea (adult) (pediatric)] Onset: 6 02-23-2016 Chronic Comment on above: CPAP 11 cm of water 2 L/min supplemental oxygen bleed Unclassified (20 sources) Electrocardiogram abnormal; 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: [Abnormal electrocardiogram [ECG] [EKG]] Onset: 2 06-14-2011 Episodic Unclassified (20 sources) Cardiac rhythm AND/OR rate finding; 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: [Regular cardiac rate and rhythm] 05-11-2022 Unclassified (1 source) Cholesterol (substance) 05-28-2014 Unclassified (4 sources) Earliest they could get patient in is 08/14 Unclassified (1 source) Consult Onset: 5 Unclassified (1 source) Acute cough; 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: [Acute cough] Onset: 4 Unclassified (1 source) Low back pain, unspecified; 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: [Low back pain, unspecified] Onset: 5 Urinary tract infections (20 sources) Acute urinary tract infection; 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: [Urinary tract infection, site not specified] 02-25-2023 Episodic Viral infection (20 sources) Measles; 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: [Measles without complication] 05-13-2022 Episodic Past or Other Problems Problem Classification Problem Date Documented Date Episodic/Chronic Cancer of colon (6 sources) History of malignant neoplasm of colon; 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: [Personal history of other malignant neoplasm of large intestine] Onset: 07-16-2024 07-17-2024 Episodic Deficiency and other anemia (20 sources) Anemia; 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: [Anemia, unspecified] Onset: 05-03-2023 03-25-2023 Episodic Deficiency and other anemia (2 sources) Iron deficiency anemia, unspecified; 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: [Iron deficiency anemia, unspecified iron deficiency anemia type] Onset: 05-11-2023 Episodic Immunizations and screening for infectious disease (20 sources) Blood group antibody titer - finding; 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: [Other specified abnormal immunological findings in serum] Onset: 05-04-2023 05-04-2023 Episodic Other aftercare (1 source) 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; 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: [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] Onset: 05-21-2024 Episodic Other lower respiratory disease (5 sources) Hypoxemia; 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: [Hypoxemia] Onset: 08-07-2024 08-03-2022 Episodic Other nervous system disorders (20 sources) Postoperative pain ; 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: [Other acute postprocedural pain] Onset: 05-03-2023 05-12-2023 Episodic Other nutritional; endocrine; and metabolic disorders (20 sources) Hypomagnesemia; 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: [Hypomagnesemia] Onset: 05-11-2023 Resolved: 05-12-2023 05-12-2023 Chronic Other nutritional; endocrine; and metabolic disorders (20 sources) Hypophosphatemia; 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: [Other disorders of phosphorus metabolism] Onset: 05-12-2023 Resolved: 05-12-2023 05-12-2023 Chronic Pleurisy; pneumothorax; pulmonary collapse (20 sources) Bilateral pleural effusion; 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: [Pleural effusion, not elsewhere classified] Onset: 05-21-2024 12-16-2022 Episodic Pneumonia (except that caused by tuberculosis or sexually transmitted disease) (20 sources) Community acquired pneumonia; 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: [Pneumonia, unspecified organism] Onset: 05-21-2024 05-17-2024 Episodic Residual codes; unclassified (20 sources) History of cardiac catheterization; 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: [Other specified postprocedural states] Onset: 01-23-2011 05-13-2022 Episodic Comment on above: Minimal Atherosclero tic Disease per cardiac cath Dr. Mae 01/27/11 Residual codes; unclassified (1 source) Localized edema; 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: [Localized edema] Onset: 05-21-2024 Episodic Substance-related disorders (20 sources) Marijuana user; 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: [Cannabis use, unspecified, uncomplicated] Onset: 05-03-2023 05-03-2023 Episodic Unclassified (1 source) Family history of ischemic heart disease; 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: [Family history of ischemic heart disease and other diseases of the circulatory system] Onset: 06-14-2011 06-14-2011 Episodic Unclassified (20 sources) Bone spur removal 05-13-2022 Comment on above: L heel Results Test Name Value Interpretation Reference Range Facility Pulmonary Visit Reporton Pulmonary Visit Report Normal [facility] Anion gap in Serum or Plasma Ordered By: DANGELO ROSA on 10-31-2024 Anion gap [Moles/Vol] 11 mmol/L 5-15 [facility] BUN/creatinine ratioOrdered By: DANGELO ROSA on 10-31-2024 Urea nitrogen/Creatinine [Mass ratio] 21.3 mg/mg High 10-20 [facility] Bilirubin, totalOrdered By: DANGELO ROSA on 10-31-2024 Bilirubin [Mass/Vol] 0.73 mg/dL Normal 0.00-1.30 [facility] Comment on above: Performed By: #### L [id number], [id number] ####[facility] [id number] [place], [address] Carbon dioxide, total [Moles /volume] in Central venous bloodOrdered By: DANGELO ROSA on 10-31-2024 CO2 [Moles/Vol] 25.8 mmol/L Normal 21.0-32.0 [facility] Comment on above: Performed By: #### L [id number], [id number] ####[facility] [id number] [place], [address] Chloride assayOrdered By: ME ROBBIE ROSA on 10-31-2024 Chloride [Moles/Vol] 105 mmol/L Normal 98-108 [facility] Comment on above: Performed By: #### L [id number], [id number] ####[facility] [id number] [place], [address] Comprehensive Metabolic Prof rafa 10-31-2024 ALK PHOS 129 U/L Normal 40-129 [facility] Comment on above: Performed By: #### L [id number], [id number] ####[facility] [id number] [place], [address] AST [Catalytic activity/Vol] 14 U/L Normal <=37 [facility] Comment on above: Performed By: #### L [id number], [id number] ####[facility] [id number] [place], [address] BUN/CRE 21.3 RATIO High 10-20 [facility] Comment on above: Performed By: #### L [id number], [id number] ####[facility] [id number] [place], [address] GAP 11 Normal 5-15 [facility] Comment on above: Performed By: #### L [id number], [id number] ####[facility] [address] [place], [address] Potassium [Moles/Vol] 4.0 mmol/L Normal 3.3-5.1 [facility] Comment on above: Performed By: #### L 501.9985, L500.4050 ####[facility] [address] [place], [address] T PROT 6.0 g/dL Normal 5.9-8.4 [facility] Comment on above: Performed By: #### L 501.9985, L500.4050 ####[facility] [address] [place], [address] Glomerular filtration rate ( GFR) estimation/1.73 sq m using serum, plasma, or whole bOrdered By: DANGELO ROSA on 10-31-2024 GFR/1.73 sq M.predicted among non-blacks MDRD (S/P/Bld) [Vol rate/Area] 93 mL/min/{1.73_m2} Normal >60 [facility] Comment on above: Result Comment: mL/m in/1.73m2 CKD-EPI Creatinine Equation (2020) Performed By: #### L 501.9985, L500.4050 ####[facility] [address] [place], [address] Hemoglobin A1c percentageOrd ered By: DANGELO ROSA on 10-31-2024 HbA1c (Bld) [Mass fraction] 6.9 % High <=5.6 [facility] Comment on above: Result Comment: Norm al < 5.7 % Prediabetic 5.7 - 6.4 % Diabetic >or= 6.5 % Please note range changes. Performed By: #### L 501.9985, L500.4050 ####[facility] [address] [place], [address] Microalb:Creat Ratio,Random URon 10-31-2024 MALB:CREAT 161.3 mg/g CRE Normal [facility] Comment on above: Performed By: #### L 502.0250 ####[facility] [address] [place], [address] MICROALBUMIN,UR 86.6 mg/L Normal NO RANGE EST. [facility] Comment on above: Performed By: #### L 502.0250 ####[facility] [address] [place], [address] No Panel InformationOrdered By: DANGELO ROSA on 10-31-2024 14 U/L <38 [facility] Potassium measurement (mass/ volume)Ordered By: DANGELO ROSA on 10-31-2024 Potassium (Unsp spec) [Mass/Vol] 4.0 mmol/L 3.3-5.1 [facility] Random urine creatinine yvonne urement (mass/volume)Ordered By: DANGELONINOSKA ROSA on 10-31-2024 Creatinine Unsp time (U) [Mass/Vol] 53.70 mg/dL 39.00-259.0 0 [facility] Serum creatinine measurement (mass/volume)Ordered By: DANGELO SHELLEY on 10-31-2024 Creatinine [Mass/Vol] 0.84 mg/dL Normal 0.70-1.20 [facility] Comment on above: Performed By: #### L 501.9985, L500.4050 ####[facility] [address] [place], [address] Serum globulin measurementOr dered By: DANGELO ROSA on 10-31-2024 Globulin (S) [Mass/Vol] 2.2 g/dL Normal 2.2-4.2 [facility] Comment on above: Performed By: #### L 501.9985, L500.4050 ####[facility] [address] [place], [address] Serum glucose measurement (m ass/volume)Ordered By: DANGELO ROSA on 10-31-2024 Glucose [Mass/Vol] 114 mg/dL High 70-99 [facility] Comment on above: Performed By: #### L 501.9985, L500.4050 ####[facility] [address] [place] [place], [address] Serum or plasma alanine blank otransferase (ALT) measurementOrdered By: DANGELO ROSA on 10-31-2024 ALT [Catalytic activity/Vol] 14 U/L Normal <=46 [facility] Comment on above: Performed By: #### L 501.9985, L500.4050 ####[facility] [address] [place], [address] Serum or plasma albumin yvonne urement (mass/volume)Ordered By: DANGELO ROSA on 10-31-2024 Albumin [Mass/Vol] 3.8 g/dL Normal 3.4-4.8 [facility] Comment on above: Performed By: #### L 501.9985, L500.4050 ####[facility] [address] [place], [address] Serum or plasma albumin/glob ulin mass ratioOrdered By: DANGELO ROSA on 10-31-2024 Albumin/Globulin [Mass ratio] 1.8 {ratio} Normal 0.9-2.4 [facility] Comment on above: Performed By: #### L 501.9985, L500.4050 ####[facility] [address] [place], [address] Serum or plasma alkaline page sphatase measurementOrdered By: DANGELO ROSA on 10-31-2024 ALP [Catalytic activity/Vol] 129 U/L 40-129 [facility] Serum or plasma calcium yvonne urement (mass/volume)Ordered By: DANGELO ROSA on 10-31-2024 Calcium [Mass/Vol] 8.8 mg/dL Normal 7.6-11.0 [facility] Comment on above: Performed By: #### L 501.9985, L500.4050 ####[facility] [address] [place], [address] Serum or plasma urea nitroge n measurement (mass/volume)Ordered By: DANGELO ROSA on 10-31-2024 Urea nitrogen [Mass/Vol] 18 mg/dL Normal 4-19 [facility] Comment on above: Performed By: #### L 501.9985, L500.4050 ####[facility] [address] [place], [address] Sodium levelOrdered By: KEKE ROSA on 10-31-2024 Sodium [Moles/Vol] 142 mmol/L Normal 133-145 [facility] Comment on above: Performed By: #### L 501.9985, L500.4050 ####[facility] [address] [place], [address] Total proteinOrdered By: GUNNAR ROSA on 10-31-2024 Protein [Mass/Vol] 6.0 g/dL 5.9-8.4 [facility] Urine albumin measurement [facility] detection limit of 20 mg/L or less (mass/volume)Ordered By: DANGELO ROSA on 10-31-2024 Albumin DL <= 20 mg/L (U) [Mass/Vol] 86.6 mg/L NO RANGE EST. [facility] B2 Microglob SerPl-mCncon Kpdt-2-Qifhcqgmrqvrn [Mass/Vol] 2.9 ug/mL Normal <3.1 [facility] Comment on above: Order Comment: Speci men Type: BLOOD SPECIMENOrdering Facility: [facility] Address: [address] [place] [address] Result Comment: Beta -2 Microglobulin test is performed using the [employer] immunoturbidimetric method. Results obtained with different methods or kits cannot be used interchangeably. Performed By: #### 1 952-1, 2885-2 ####[facility] LABCLIA [id number] [place] [address] [place] CBC W Auto Differential pane l (Bld)on 10-24-2024 Basophils (Bld) [#/Vol] 0.05 10*3/uL Normal <0.11 [facility] Comment on above: Order Comment: Speci men Type: BLOOD SPECIMENOrdering Facility: [facility] Address: [address] [place] [address] Performed By: #### 5 7021-8 ####[facility] [id number] [place] [address] [place] Basophils/100 WBC (Bld) 0.5 % Normal [facility] Comment on above: Order Comment: Speci men Type: BLOOD SPECIMENOrdering Facility: [facility] Address: [address] [place] [address] Performed By: #### 5 7021-8 ####[facility] [id number] [place] [address] [place] Differential cell count method Nom (Bld) Auto Normal [facility] Comment on above: Order Comment: Speci men Type: BLOOD SPECIMENOrdering Facility: [facility] Address: [address] [place] [address] Performed By: #### 5 7021-8 ####[facility] [id number] [place] [address] [place] Eosinophils (Bld) [#/Vol] 0.07 10*3/uL Normal <0.46 [facility] Comment on above: Order Comment: Speci men Type: BLOOD SPECIMENOrdering Facility: [facility] Address: [address] [place] [address] Performed By: #### 5 7021-8 ####[facility] [id number] [place] [address] [place] Eosinophils/100 WBC (Bld) 0.7 % Normal [facility] Comment on above: Order Comment: Speci men Type: BLOOD SPECIMENOrdering Facility: [facility] Address: [address] [place] [address] Performed By: #### 5 7021-8 ####[facility] [id number] [place] [address] [place] Erythrocyte distribution width (RBC) [Ratio] 22.3 % High 11.5-15.0 [facility] Comment on above: Order Comment: Speci men Type: BLOOD SPECIMENOrdering Facility: [facility] Address: [address] [place] [address] Performed By: #### 5 7021-8 ####[facility] [id number] [place] [address] [place] Hematocrit (Bld) [Volume fraction] 38.1 % Low 39.0-51.0 [facility] Comment on above: Order Comment: Speci men Type: BLOOD SPECIMENOrdering Facility: [facility] Address: [address] [place] [address] Performed By: #### 5 7021-8 ####[facility]TON[facility] BEACHWNCLIA [id number] [place] [address] [place] Hemoglobin (Bld) [Mass/Vol] 11.4 g/dL Low 13.0-17.0 [facility] Comment on above: Order Comment: Speci men Type: BLOOD SPECIMENOrdering Facility: [facility] Address: [address] [place] [address] Performed By: #### 5 7021-8 ####[facility]CL[facility] [id number] [place] [address] [place] Immature granulocytes (Bld) [#/Vol] 10*3/uL Normal <0.10 [facility] Comment on above: Order Comment: Speci men Type: BLOOD SPECIMENOrdering Facility: [facility] Address: [address] [place] [address] Performed By: #### 5 7021-8 ####[facility]ITALLIA [id number] [place] [address] [place] Immature granulocytes/100 WBC (Bld) 0.2 % Normal [facility] Comment on above: Order Comment: Speci men Type: BLOOD SPECIMENOrdering Facility: [facility] Address: [address] [place] [address] Performed By: #### 5 7021-8 ####[facility]ITALL[facility] [id number] [place] [address] [place] Lymphocytes (Bld) [#/Vol] 0.43 10*3/uL Low 1.00-4.0 0 [facility] Comment on above: Order Comment: Speci men Type: BLOOD SPECIMENOrdering Facility: [facility] Address: [address] [place] [address] Performed By: #### 5 7021-8 ####[facility] [id number] [place] [address] [place] Lymphocytes/100 WBC (Bld) 4.1 % Normal [facility] Comment on above: Order Comment: Speci men Type: BLOOD SPECIMENOrdering Facility: [facility] Address: [address] [place] [address] Performed By: #### 5 7021-8 ####[facility]IALEL[facility] [id number] [place] [address] [place] MCH (RBC) [Entitic mass] 23.3 pg Low 26.0-34.0 [facility] Comment on above: Order Comment: Speci men Type: BLOOD SPECIMENOrdering Facility: [facility] Address: [address] [place] [address] Performed By: #### 5 7021-8 ####[facility] [id number] [place] [address] [place] MCHC (RBC) [Mass/Vol] 29.9 g/dL Low 30.5-36.0 [facility] Comment on above: Order Comment: Speci men Type: BLOOD SPECIMENOrdering Facility: [facility] Address: [address] [place] [address] Performed By: #### 5 7021-8 ####[facility] [id number] [place] [address] [place] MCV (RBC) [Entitic vol] 77.8 fL Low 80.0-100.0 [facility] Comment on above: Order Comment: Speci men Type: BLOOD SPECIMENOrdering Facility: [facility] Address: [address] [place] [address] Performed By: #### 5 7021-8 ####[facility] HOSPITALFARAZ [id number] [place] [address] [place] Monocytes (Bld) [#/Vol] 0.36 10*3/uL Normal <0.87 [facility] Comment on above: Order Comment: Speci men Type: BLOOD SPECIMENOrdering Facility: [facility] Address: [address] [place] [address] Performed By: #### 5 7021-8 ####[facility]ITALL[facility] [id number] [place] [address] [place] Monocytes/100 WBC (Bld) 3.4 % Normal [facility] Comment on above: Order Comment: Speci men Type: BLOOD SPECIMENOrdering Facility: [facility] Address: [address] [place] [address] Performed By: #### 5 7021-8 ####[facility] [id number] [place] [address] [place] Neutrophils (Bld) [#/Vol] 9.56 10*3/uL High 1.45-7.5 0 [facility] Comment on above: Order Comment: Speci men Type: BLOOD SPECIMENOrdering Facility: [facility] Address: [address] [place] [address] Performed By: #### 5 7021-8 ####[facility] [id number] [place] [address] [place] Neutrophils/100 WBC (Bld) 91.1 % Normal [facility] Comment on above: Order Comment: Speci men Type: BLOOD SPECIMENOrdering Facility: [facility] Address: [address] [place] [address] Performed By: #### 5 7021-8 ####[facility] [id number] [place] [address] [place] Nucleated RBC (Bld) [#/Vol] 10*3/uL Normal <0.01 [facility] Comment on above: Order Comment: Speci men Type: BLOOD SPECIMENOrdering Facility: [facility] Address: [address] [place] [address] Performed By: #### 5 7021-8 ####[facility] BONCLIA [id number] [place] [address] [place] Nucleated RBC/100 WBC (Bld) [Ratio] 0.0 /100 WBC Normal [facility] Comment on above: Order Comment: Speci men Type: BLOOD SPECIMENOrdering Facility: [facility] Address: [address] [place] [address] Performed By: #### 5 7021-8 ####[facility]IALNCLIA [id number] [place] [address] [place] Platelet mean volume (Bld) [Entitic vol] 9.6 fL Normal 9.0-12.7 [facility] Comment on above: Order Comment: Speci men Type: BLOOD SPECIMENOrdering Facility: [facility] Address: [address] [place] [address] Performed By: #### 5 7021-8 ####[facility]IALNCLIA [id number] [place] [address] [place] Platelets (Bld) [#/Vol] 303 10*3/uL Normal 150-400 [facility] Comment on above: Order Comment: Speci men Type: BLOOD SPECIMENOrdering Facility: [facility] Address: [address] [place] [address] Performed By: #### 5 7021-8 ####[facility]IALNCL[facility] [id number] [place] [address] [place] RBC (Bld) [#/Vol] 4.90 10*6/uL Normal 4.20-6.00 [facility] Comment on above: Order Comment: Speci men Type: BLOOD SPECIMENOrdering Facility: [facility] Address: [address] [place] [address] Performed By: #### 5 7021-8 ####[facility]NCRIV[facility] [id number] [place] [address] [place] WBC (Bld) [#/Vol] 10.49 10*3/uL Normal 3.70-11.00 [facility] Comment on above: Order Comment: Speci men Type: BLOOD SPECIMENOrdering Facility: [facility] Address: [address] [place] [address] Performed By: #### 5 7021-8 ####[facility]ITALLIA [id number] [place] [address] [place] Comprehensive metabolic 2000 panelon 10-24-2024 Albumin [Mass/Vol] 4.1 g/dL Normal 3.9-4.9 [facility] Comment on above: Order Comment: Speci men Type: BLOOD SPECIMENOrdering Facility: [facility] Address: [address] [place] [address] Performed By: #### 2 4323-8, 2532-0 ####[facility] [id number] [place] [address] [place] ALP [Catalytic activity/Vol] 146 U/L High 38-113 [facility] Comment on above: Order Comment: Speci men Type: BLOOD SPECIMENOrdering Facility: [facility] Address: [address] [place] [address] Performed By: #### 2 4323-8, 2532-0 ####[facility]ALL[facility] [id number] [place] [address] [place] ALT [Catalytic activity/Vol] 10 U/L Normal 10-54 [facility] Comment on above: Order Comment: Speci men Type: BLOOD SPECIMENOrdering Facility: [facility] Address: [address] [place] [address] Performed By: #### 2 4323-8, 2532-0 ####[facility]IALNCSUMI [id number] [place] [address] [place] Anion gap [Moles/Vol] 13 mmol/L Normal 8-15 [facility] Comment on above: Order Comment: Speci men Type: BLOOD SPECIMENOrdering Facility: [facility] Address: [address] [place] [address] Performed By: #### 2 4323-8, 2532-0 ####[facility] MILLTOWRONAKLIA [id number] [place] [address] [place] AST [Catalytic activity/Vol] 12 U/L Low 14-40 [facility] Comment on above: Order Comment: Speci men Type: BLOOD SPECIMENOrdering Facility: [facility] Address: [address] [place] [address] Performed By: #### 2 4323-8, 2-0 ####[facility]IALRONAKLIA [id number] [place] [address] [place] Bilirubin [Mass/Vol] 0.6 mg/dL Normal 0.2-1.3 [facility] Comment on above: Order Comment: Speci men Type: BLOOD SPECIMENOrdering Facility: [facility] Address: [address] [place] [address] Performed By: #### 2 4323-8, 2532-0 ####[facility] BEACHWRONAKLIA [id number] [place] [address] [place] Calcium [Mass/Vol] 9.0 mg/dL Normal 8.5-10.2 [facility] Comment on above: Order Comment: Speci men Type: BLOOD SPECIMENOrdering Facility: [facility] Address: [address] [place] [address] Performed By: #### 2 4323-8, 2532-0 ####[facility] BEACHWNCLIA [id number] [place] [address] [place] Chloride [Moles/Vol] 103 mmol/L Normal 98-107 [facility] Comment on above: Order Comment: Speci men Type: BLOOD SPECIMENOrdering Facility: [facility] Address: [address] [place] [address] Performed By: #### 2 4323-8, 2531-0 ####[facility] [id number] [place] [address] [place] CO2 [Moles/Vol] 25 mmol/L Normal 22-30 [facility] Comment on above: Order Comment: Speci men Type: BLOOD SPECIMENOrdering Facility: [facility] Address: [address] [place] [address] Performed By: #### 2 4323-8, 2531-0 ####[facility] [id number] [place] [address] [place] Creatinine [Mass/Vol] 0.88 mg/dL Normal 0.73-1.22 [facility] Comment on above: Order Comment: Speci men Type: BLOOD SPECIMENOrdering Facility: [facility] Address: [address] [place] [address] Performed By: #### 2 4323-8, 0 ####[facility] [id number] [address] STATES OF [facility] Creatinine and Glomerular filtration rate.predicted panel (S/P/Bld) 91 mL/min/1.73m??? Normal >=60 [facility] Comment on above: Order Comment: Speci men Type: BLOOD SPECIMENOrdering Facility: [facility] Address: [address] [place] [address] Result Comment: Kimberley mated Glomerular Filtration Rate (eGFR) is calculated using the 2020 CKD-EPI creatinine equation. This equation utilizes serum creatinine, sex, and age as parameters. The creatinine assay has traceable calibration to isotope dilution-mass spectrometry. Refer to KDIGO guidelines for clinical interpretation. In patients with unstable renal function, e.g. those with acute kidney injury, the eGFR may not accurately reflect actual GFR. Performed By: #### 2 4323-8, 0 ####[facility] BEACHWNCLIA [id number] [place] [address] [place] Glucose [Mass/Vol] 118 mg/dL High 74-99 [facility] Comment on above: Order Comment: Speci men Type: BLOOD SPECIMENOrdering Facility: [facility] Address: [address] [place] [address] Result Comment: The [place] [employer] (ADA) provides guidance for cutoff values for fasting glucose and random glucose. The ADA defines fasting as no caloric intake for at least 8 hours. Fasting plasma glucose results between 100 to 125 mg/dL indicate increased risk for diabetes (prediabetes).Fasting plasma glucose results greater than or equal to 126 mg/dL meet the criteria for diagnosis of diabetes. In the absence of unequivocal hyperglycemia, results should be confirmed by repeat testing. In a patient with classic symptoms of hyperglycemia or hyperglycemic crisis, random plasma glucose results greater than or equal to 200 mg/dL meet the criteria for diagnosis of diabetes.Reference: Standards of Medical Care in Diabetes 2016, [place] [employer]. Diabetes Care. 2016.39(Suppl 1). Performed By: #### 2 4323-8, ####[facility] [id number] [place] [address] [place] Potassium [Moles/Vol] 4.0 mmol/L Normal 3.7-5.1 [facility] Comment on above: Order Comment: Speci men Type: BLOOD SPECIMENOrdering Facility: [facility] Address: [address] [place] [address] Performed By: #### 2 4323-8, 0 ####[facility]IALNCA [id number] [place] [address] [place] Protein [Mass/Vol] 6.1 g/dL Low 6.3-8.0 [facility] Comment on above: Order Comment: Speci men Type: BLOOD SPECIMENOrdering Facility: [facility] Address: [address] [place] [id number] Performed By: #### 2 4323-8, 2532-0 ####[facility]IALNCLIA [id number] [address] Sodium [Moles/Vol] 141 mmol/L Normal 136-144 [facility] Comment on above: Order Comment: Speci men Type: BLOOD SPECIMENOrdering Facility: [facility] Address: [address] [place] [address] Performed By: #### 2 4323-8, 2-0 ####[facility]IALNCLIA [id number] [address] [place] Urea nitrogen [Mass/Vol] 21 mg/dL Normal 9-24 [facility] Comment on above: Order Comment: Speci men Type: BLOOD SPECIMENOrdering Facility: [facility] Address: [address] [place] [address] Performed By: #### 2 4323-8, 2531-0 ####[facility] HOSPITALLIA [id number] [address] IMMUNOFIXATION SCREEN, SERUM on 10-24-2024 MPA RESULT No M protein is identified. Normal No M protein is identified. [facility] Comment on above: Order Comment: Speci men Type: BLOOD SPECIMENOrdering Facility: [facility] Address: [address] [place] [address] Performed By: #### I FESC ####[facility] LABCLIA [id number] [address] [place] STAFF REVIEW (MPA) Reviewed by Bianka Rdz MD [facility] Comment on above: Order Comment: Speci men Type: BLOOD SPECIMENOrdering Facility: [facility] Address: [address] [place] [address] Performed By: #### I FESC ####[facility] LABCLIA [id number] [place] [address] [place] IMMUNOGLOBULINS,IGG,IGA,IGMo n 10-24-2024 IgA [Mass/Vol] 60 mg/dL Low 70-400 [facility] Comment on above: Order Comment: Speci men Type: BLOOD SPECIMENOrdering Facility: [facility] Address: [address] [place] [address] Performed By: #### S ERIMM ####[facility] LABCLIA [id number] [place] [address] [place] IgG [Mass/Vol] 620 mg/dL Low 700-1600 [facility] Comment on above: Order Comment: Speci men Type: BLOOD SPECIMENOrdering Facility: [facility] Address: [address] [place] [address] Performed By: #### S ERIMM ####[facility] [facility] [id number] [place] IgM [Mass/Vol] 17 mg/dL Low 40-230 [facility] Comment on above: Order Comment: Speci men Type: BLOOD SPECIMENOrdering Facility: [facility] Address: [address] [place] [address] Performed By: #### S ERIMM ####[facility] LABCLIA [id number] [place] [address] [place] KAPPA/RAMIREZ,FREE,SERon 2024 Immunoglobulin light chains.kappa.free (S) [Mass/Vol] 7.2 mg/L Normal 3.3-19.4 [facility] Comment on above: Order Comment: Speci men Type: BLOOD SPECIMENOrdering Facility: [facility] Address: [address] [place] [address] Result Comment: Rare ly, increased serum free light chains levels may not be detected or accurately quantified due to prozone phenomenon or in high viscosity samples using this immunoturbidimetric assay. Correlation with other laboratory results and clinical findings is recommended.The [place] Free Light Chain was performed using the Binding Site Optilite immunoturbidimetric method. Result obtained with different assay methods or kits cannot be used interchangeably. Performed By: #### K LFRS ####[facility] LABIA [id number] [place] [address] [place] Immunoglobulin light chains.kappa/Immunoglobuli n light chains.lambda (S) [Mass ratio] 1.18 Normal 0.26-1.65 [facility] Comment on above: Order Comment: Speci men Type: BLOOD SPECIMENOrdering Facility: [facility] Address: [address] [place] [address] Performed By: #### K LFRS ####[facility] [id number] [place] [address] [place] Immunoglobulin light chains.lambda.free [Mass/Vol] 6.1 mg/L Normal 5.7-26.3 [facility] Comment on above: Order Comment: Speci men Type: BLOOD SPECIMENOrdering Facility: [facility] Address: [address] [place] [address] Result Comment: Rare ly, increased serum free light chains levels may not be detected or accurately quantified due to prozone phenomenon or in high viscosity samples using this immunoturbidimetric assay. Correlation with other laboratory results and clinical findings is recommended.The Lambda Free Light Chain was performed using the Binding Site Optilite immunoturbidimetric method. Result obtained with different assay methods or kits cannot be used interchangeably. Performed By: #### K LFRS ####[facility] LABIA [id number] [place] [address] [place] LDH SerPl-cCncon 10-24-2024 LDH [Catalytic activity/Vol] 192 U/L Normal 135-225 [facility] Comment on above: Order Comment: Speci men Type: BLOOD SPECIMENOrdering Facility: [facility] Address: [address] [place] [address] Performed By: #### 2 4323-8, 2532-0 ####[facility] M[facility]OWN[facility] [id number] [place] [address] [place] MONOCLONAL PROT UR W/INTERPo n 10-24-2024 STAFF REVIEW ([facility]) Reviewed by Bianka Rdz MD [facility] Comment on above: Order Comment: Speci men Type: URINE SPECIMENOrdering Facility: [facility] Address: [address] [place] [address] Performed By: #### U RMPA ####[facility] [id number] [address] [place] UMPA RESULT No M protein is identified. Normal No M protein is identified. [facility] Comment on above: Order Comment: Speci men Type: URINE SPECIMENOrdering Facility: [facility] Address: [address] [place] [address] Performed By: #### U RMPA ####[facility] [id number] [address] [facility] PROTEIN ELECTROPHORESIS SERU M (P)on 10-24-2024 Albumin [Mass/Vol] 3.83 g/dL Normal 3.43-5.41 [facility] Comment on above: Order Comment: Speci men Type: BLOOD SPECIMENOrdering Facility: [facility] Address: [address] [place] [address] Performed By: #### L [id number] ####[facility] LABIA [id number] [place] [address] [place] Alpha 1 globulin Elph [Mass/Vol] 0.32 g/dL Normal 0.18-0.43 [facility] Comment on above: Order Comment: Speci men Type: BLOOD SPECIMENOrdering Facility: [facility] Address: [address] [place] [address] Performed By: #### L [id number] ####[facility] LABIA [id number] [place] [address] [place] Alpha 2 globulin Elph [Mass/Vol] 0.71 g/dL Normal 0.42-0.98 [facility] Comment on above: Order Comment: Speci men Type: BLOOD SPECIMENOrdering Facility: [facility] Address: [address] [place] [address] Performed By: #### L [id number] ####[facility] LABCLIA [id number] [place] [address] [place] Beta globulin Elph [Mass/Vol] 0.65 g/dL Normal 0.61-1.17 [facility] Comment on above: Order Comment: Speci men Type: BLOOD SPECIMENOrdering Facility: [facility] Address: [address] [place] [address] Performed By: #### L [id number] ####[facility] LABIA [id number] [place] [address] [place] Gamma globulin Elph [Mass/Vol] 0.47 g/dL Low 0.53-1.51 [facility] Comment on above: Order Comment: Speci men Type: BLOOD SPECIMENOrdering Facility: [facility] Address: [address] [place] [address] Performed By: #### L [id number] ####[facility] LABIA [id number] [place] [address] [place] INTERPRETATION COMMENT FOR PROTEIN ELECTROPHORESIS Hypogammaglobulinemia is present, which can be seen in the setting of monoclonal gammopathy. If clinically indicated, monoclonal protein analysis and serum free light chain analysis are suggested to evaluate further for monoclonal gammopathy. Normal [facility] Comment on above: Order Comment: Speci men Type: BLOOD SPECIMENOrdering Facility: [facility] Address: [address] [place] [address] Performed By: #### L [id number] ####[facility] LABIA [id number] [place] [id number] [place] M-PROTEIN LOCATION Normal [facility] Comment on above: Order Comment: Speci men Type: BLOOD SPECIMENOrdering Facility: [facility] Address: [address] [place] [address] Result Comment: Not Applicable. Performed By: #### L [id number] ####[facility] [id number] [address] [address] [place] Protein Fractions [Interp] No definitive M protein is identified on protein electrophoresis. Normal No definitive M protein is identified on protein electrophor esis. [facility] Comment on above: Order Comment: Speci men Type: BLOOD SPECIMENOrdering Facility: [facility] Address: [address] [place] [address] Performed By: #### L [id number] ####[facility] [id number] [place] [address] [place] Protein.monoclonal Elph [Mass/Vol] 0.00 g/dL Normal <=0.00 [facility] Comment on above: Order Comment: Speci men Type: BLOOD SPECIMENOrdering Facility: [facility] Address: [address] [place] [address] Performed By: #### L [id number] ####[facility] [id number] [place] [address] [place] SPE STAFF REVIEW Reviewed by Bianka Rdz MD [facility] Comment on above: Order Comment: Speci men Type: BLOOD SPECIMENOrdering Facility: [facility] Address: [address] [place] [address] Performed By: #### L [id number] ####[facility] [id number] [place] [id number] [place] Prot SerPl-mCncon 10-24-2024 Protein [Mass/Vol] 6.0 g/dL Low 6.3-8.0 [facility] Comment on above: Order Comment: Speci men Type: BLOOD SPECIMENOrdering Facility: [facility] Address: [address] [place] [address] Performed By: #### 1 952-1, 2885-2 ####[facility] LABIA [id number] [place] [address] [place] Prot Ur-mCncon 10-24-2024 Protein (U) [Mass/Vol] 62 mg/dL High 0-20 [facility] Comment on above: Order Comment: Speci men Type: URINE SPECIMENOrdering Facility: [facility] Address: [address] [place] [address] Performed By: #### 2 888-6 ####[facility] LABIA [id number] [place] [address] [place] URINE PROTEIN ELECTROPHORESI S RANDOM (P)on 10-24-2024 Albumin Elph (U) [Mass fraction] 69.44 % Normal [facility] Comment on above: Order Comment: Speci men Type: URINE SPECIMENOrdering Facility: [facility] Address: [address] [place] [address] Performed By: #### L [id number] ####[facility] LABIA [id number] [place] [address] [place] Alpha 1 globulin Elph (U) [Mass fraction] 2.27 % Normal [facility] Comment on above: Order Comment: Speci men Type: URINE SPECIMENOrdering Facility: [facility] Address: [address] [place] [address] Performed By: #### L [id number] ####[facility] LABIA [id number] [place] [address] [place] Alpha 2 globulin Elph (U) [Mass fraction] 10.63 % Normal [facility] Comment on above: Order Comment: Speci men Type: URINE SPECIMENOrdering Facility: [facility] Address: [address] [place] [address] Performed By: #### L [id number] ####[facility] LABIA [id number] [place] [id number] [place] Beta globulin Elph (U) [Mass fraction] 9.98 % Normal [facility] Comment on above: Order Comment: Speci men Type: URINE SPECIMENOrdering Facility: [facility] Address: [address] [place] [address] Performed By: #### L [id number] ####[facility] LABCLIA [id number] [place] [address] [place] Gamma globulin Elph (U) [Mass fraction] 7.68 % Normal [facility] Comment on above: Order Comment: Speci men Type: URINE SPECIMENOrdering Facility: [facility] Address: [address] [place] [address] Performed By: #### L [id number] ####[facility] LABCLIA [id number] [place] [address] [place] Protein Fractions Elph Shalom (U) [Interp] No definitive M protein is identified on protein electrophoresis. Normal No definitive M protein is identified on protein electrophor esis. [facility] Comment on above: Order Comment: Speci men Type: URINE SPECIMENOrdering Facility: [facility] Address: [address] [place] [address] Performed By: #### L [id number] ####[facility] LABCLIA [id number] [place] [address] [place] STAFF REVIEW (URINE ELECTRO) Reviewed by Bianka Rdz MD Normal [facility] Comment on above: Order Comment: Speci men Type: URINE SPECIMENOrdering Facility: [facility] Address: [address] [place] [address] Performed By: #### L [id number] ####[facility] LABCLIA [id number] [place] [address] [place] Absolute lymphocyte countOrd ered By: Zeus Swanson on 10-22-2024 Lymphocytes Auto (Unsp spec) [#/Vol] 1.00 10*3/uL 0.83-4.51 [facility] Anion gap in Serum or Plasma Ordered By: Zeus Swanson on 10-22-2024 Anion gap [Moles/Vol] 12 mmol/L 5-15 [facility] Automated lymphocyte count a s percentage of total leukocytesOrdered By: Zeus Swanson on 10-22-2024 Lymphocytes/100 WBC Auto (Unsp spec) 10.0 % Low 19-41 [facility] BUN/creatinine ratioOrdered By: Zeus Swanson on 10-22-2024 Urea nitrogen/Creatinine [Mass ratio] 16.5 mg/mg - [facility] Basic Metabolic Profile (BMP )on 10-22-2024 BUN/CRE 16.5 RATIO Normal - [facility] Comment on above: Performed By: #### L 501.9520, L500.2500, L501.5200, L100.0100 ####[facility] [address] [place], [address] Calcium [Mass/Vol] 9.4 mg/dL Normal 7.6-11.0 [facility] Comment on above: Performed By: #### L 501.9520, L500.2500, L501.5200, L100.0100 ####[facility] [address] [place], [address] Chloride [Moles/Vol] 105 mmol/L Normal 98-108 [facility] Comment on above: Performed By: #### L 501.9520, L500.2500, L501.5200, L100.0100 ####[facility] [address] [place], [address] CO2 [Moles/Vol] 26.1 mmol/L Normal 21.0-32.0 [facility] Comment on above: Performed By: #### L 501.9520, L500.2500, L501.5200, L100.0100 ####[facility] [address] [place], [address] Creatinine [Mass/Vol] 0.88 mg/dL Normal 0.70-1.20 [facility] Comment on above: Performed By: #### L 501.9520, L500.2500, L501.5200, L100.0100 ####[facility] [address] [place], [address] GAP 12 Normal 5-15 [facility] Comment on above: Performed By: #### L 501.9520, L500.2500, L501.5200, L100.0100 ####[facility] [address] [place], [address] GFR/1.73 sq M.predicted among non-blacks MDRD (S/P/Bld) [Vol rate/Area] 92 mL/min/{1.73_m2} Normal >60 [facility] Comment on above: Result Comment: mL/m in/1.73m2 CKD-EPI Creatinine Equation (2020) Performed By: #### L 501.9520, L500.2500, L501.5200, L100.0100 ####[facility] [address] [place], [address] Glucose [Mass/Vol] 121 mg/dL High 70-99 [facility] Comment on above: Performed By: #### L 501.9520, L500.2500, L501.5200, L100.0100 ####[facility] [address] [place], [address] Potassium [Moles/Vol] 4.2 mmol/L Normal 3.3-5.1 [facility] Comment on above: Performed By: #### L 501.9520, L500.2500, L501.5200, L100.0100 ####[facility] [address] [place], [address] Sodium [Moles/Vol] 142 mmol/L Normal 133-145 [facility] Comment on above: Performed By: #### L 501.9520, L500.2500, L501.5200, L100.0100 ####[facility] [address] [place], [address] Urea nitrogen [Mass/Vol] 14 mg/dL Normal 4-19 [facility] Comment on above: Performed By: #### L 501.9520, L500.2500, L501.5200, L100.0100 ####[facility] [address] [place], [address] Basophil percentageOrdered B y: Zeus Swanson on 10-22-2024 Basophils/100 WBC (Bld) 0.4 % 0-1 [facility] Blood manual differential co mment interpretation (narrative result)Ordered By: Zeus Swanson on 10-22-2024 Manual differential comment Shalom (Bld) [Interp] SCANNED [facility] CBC W/Diff, Automatedon 09-25 Anisocytosis Ql (Bld) 2+ Normal [facility] Comment on above: Performed By: #### L 501.9520, L500.2500, L501.5200, L100.0100 ####[facility] [address] [place], [address] HYPOCHROMASIA 1+ Normal [facility] Comment on above: Performed By: #### L 501.9520, L500.2500, L501.5200, L100.0100 ####[facility] [address] [place], [address] OVALOCYTE 1+ Normal [facility] Comment on above: Performed By: #### L 501.9520, L500.2500, L501.5200, L100.0100 ####[facility] [address] [place], [address] SMEAR COMMENT SCANNED Normal [facility] Comment on above: Performed By: #### L 501.9520, L500.2500, L501.5200, L100.0100 ####[facility] [address] [place], [address] Carbon dioxide, total [Moles /volume] in Central venous bloodOrdered By: Zeus Swanson on 10-22-2024 CO2 [Moles/Vol] 26.1 mmol/L 21.0-32.0 [facility] Cardiology Visit Reporton Cardiology Visit Report Normal [facility] Chloride assayOrdered By: Flakita Swanson on 10-22-2024 Chloride [Moles/Vol] 105 mmol/L 98-108 [facility] Eosinophil percentageOrdered By: Zeus Swanson on 10-22-2024 Eosinophils/100 WBC (Bld) 1.0 % 0-5 [facility] Erythrocyte distribution wid th ratioOrdered By: Zeus Swanson on 10-22-2024 Erythrocyte distribution width (RBC) [Ratio] 22.5 % High 11.6-14.6 [facility] Erythrocyte distribution wid th standard deviationOrdered By: Zeus Swanson on 10-22-2024 Erythrocyte distribution width (RBC) [Ratio] 62.9 fl High 35.1-43.9 [facility] Glomerular filtration rate ( GFR) estimation/1.73 sq m using serum, plasma, or whole bOrdered By: Zeus Swanson on 10-22-2024 GFR/1.73 sq M.predicted among non-blacks MDRD (S/P/Bld) [Vol rate/Area] 92 mL/min/{1.73_m2} >60 [facility] Hematocrit Auto (Bld) [Volum e fraction]Ordered By: Zeus Swanson on 10-22-2024 Hematocrit (Bld) [Volume fraction] 37.9 % Low 40-54 [facility] Hemoglobin measurementOrdere d By: Zeus Swanson on 10-22-2024 Hemoglobin (Bld) [Mass/Vol] 11.1 g/dL Low 13.0-16.5 [facility] Hypochromatic red blood cell detectionOrdered By: Zeus Swanson on 10-22-2024 Hypochromia Ql (Bld) 1+ [facility] Immature granulocytes/100 WB C Auto (Bld)Ordered By: Zeus Swanson on 10-22-2024 Immature granulocytes/100 WBC (Bld) 0.300 % 0.0-0.9 [facility] MCV (mean corpuscular volume ) determinationOrdered By: Zeus Swanson on 10-22-2024 MCV (RBC) [Entitic vol] 78.8 fL Low 80-94 [facility] Magnesiumon 10-22-2024 Magnesium [Mass/Vol] 1.8 mg/dL Normal 1.5-2.2 [facility] Comment on above: Performed By: #### L 501.9520, L500.2500, L501.5200, L100.0100 ####[facility] [address] [place], [place], [id number] Magnesium measurement (mass/ volume)Ordered By: Zeus Swanson on 10-22-2024 Magnesium (Unsp spec) [Mass/Vol] 1.8 mg/dL 1.5-2.2 [facility] Mean corpuscular hemoglobin (MCH) determinationOrdered By: Zeus Swanson on 10-22-2024 MCH (RBC) [Entitic mass] 23.1 pg Low 27.0-32.0 [facility] Monocyte percentageOrdered B y: Zeus Swanson on 10-22-2024 Monocytes/100 WBC (Bld) 10.7 % High 0-10 [facility] Neutrophil percentageOrdered By: Zeus Swanson on 10-22-2024 Neutrophils/100 WBC (Bld) 77.6 % High 47-70 [facility] No Panel InformationOrdered By: Zeus Swanson on 10-22-2024 2+ [facility] Ovalocyte detectionOrdered B y: Zeus Swanson on 10-22-2024 Ovalocytes LM Ql (Bld) 1+ [facility] Platelet countOrdered By: Flakita Swanson on 10-22-2024 Platelets (Bld) [#/Vol] 340 10*3/uL 150-450 [facility] Potassium measurement (mass/ volume)Ordered By: Zeus Swanson on 10-22-2024 Potassium (Unsp spec) [Mass/Vol] 4.2 mmol/L 3.3-5.1 [facility] RBC Auto (Bld) [#/Vol]Ordere d By: Zeus Swanson on 10-22-2024 RBC (Bld) [#/Vol] 4.81 10*6/uL 4.6-6.[address] [facility] Serum creatinine measurement (mass/volume)Ordered By: Zeuslata Swanson on 10-22-2024 Creatinine [Mass/Vol] 0.88 mg/dL 0.70-1.20 [facility] Serum glucose measurement (m ass/volume)Ordered By: Zeuslata Swanson on 10-22-2024 Glucose [Mass/Vol] 121 mg/dL High 70-99 [facility] Serum or plasma calcium yvonne urement (mass/volume)Ordered By: [facility] Kiki on 10-22-2024 Calcium [Mass/Vol] 9.4 mg/dL 7.6-11.0 [facility] Serum or plasma urea nitroge n measurement (mass/volume)Ordered By: Zeus Kiki on 10-22-2024 Urea nitrogen [Mass/Vol] 14 mg/dL 4-19 [facility] Sodium levelOrdered By: [facility] Kiki on 10-22-2024 Sodium [Moles/Vol] 142 mmol/L 133-145 [facility] TSH DL <= 0.005 mIU/L QnOrde red By: Zeus Swanson on 10-22-2024 TSH Qn 0.978 uIU/mL 0.300-4.200 [facility] Thyroid Stim Hormone (TSH)on 10-22-2024 TSH 0.978 uIU/mL Normal 0.300-4.200 [facility] Comment on above: Performed By: #### L 501.9520, L500.2500, L501.5200, L100.0100 ####[facility] [address] [place], [place], [id number] White blood cell (WBC) count Ordered By: Zeus Swanson on 10-22-2024 WBC (Bld) [#/Vol] 10.0 10*3/uL 4.4-11.[address] [facility] ANES POSTPROC EVALon 025 ANES POSTPROC EVAL HNO ID: [id number] Author: LYN RAYGOZA DO Service: Anesthesiology Author Type: Anesthesiologist Type: Anesthesia Postprocedure Evaluation Filed: 10/17/2024 12:10 Note Text: POST ANESTHESIA EVALUATION NOTE : 1950 Procedure Summary Date: 10/17/24 Room / Location: [facility] Endoscopy Anesthesia Start: 1011 Anesthesia Stop: 1057 Procedures: COLONOSCOPY SCREENING EGD DIAGNOSTIC Diagnosis: History of colon cancer Iron deficiency anemia, unspecified iron deficiency anemia type Occult blood positive stool Gastroesophageal reflux disease, unspecified whether esophagitis present (High risk colon cancer surveillance: Personal history of colon cancer) (Iron deficiency anemia) Scheduled Providers: Josephine Sutton MD; Hina Rousseau APRN.[employer]NAGER [employer]ET[employer]; Lyn Raygoza DO Responsible Provider: Lyn Raygoza DO Anesthesia Type: MAC ASA Status: 4 Anesthesia Type: MAC Last Vitals Vitals Value Taken Time BP 141/65 10/17/24 1200 Temp 36.6 ?C (97.9 ?F) 10/17/24 1100 Pulse 56 10/17/24 1200 Resp 18 10/17/24 1200 SpO2 93 % 10/17/24 1200 Post Anesthesia Patient Status Patient Evaluation: PACU. PACU/ICU Patient Condition: stable. Anticipated Disposition: phase 2 then home. Neurological Status: aware and responsive. Pulmonary Status: breathing comfortably on room air Airway Control: returned to baseline unsupported. Cardiovascular Status: stable. Pain Management: clinically adequate Postoperative Hydration: acceptable. Intraoperative Events: no significant anesthesia events Post Operative Nausea/Vomiting Status: no significant post operative nausea or vomiting Recommendation: continue current plan of care and further care per PACU/ICU/floor team. Anesthesia Observations No Documentation SIGNATURE: Lyn Raygoza DO PATIENT NAME: Cyn James JR DATE: October 17, 2024 TIME: 12:10 PM CSN: [id number] Normal [facility] ANES PRE-OPon 10-17-2024 ANES PRE-OP HNO ID: [id number] Author: LYN RAYGOZA DO Service: Anesthesiology Author Type: Anesthesiologist Type: Anesthesia Preprocedure Evaluation Filed: 10/17/2024 10:01 Note Text: ANESTHESIOLOGY DAY OF SURGERY NOTE : 1950 Procedure Information Date/Time: 10/17/24 1045 Scheduled providers: Josephine Sutton MD; Hina Rousseau APRN.[employer]; Lyn Raygoza DO Procedures: COLONOSCOPY SCREENING EGD DIAGNOSTIC Location: [facility] Endoscopy Estimated body mass index is 45.71 kg/m? as calculated from the following: Height as of 10/04/24: 172.7 cm (5' 8). Weight as of 10/04/24: 136.4 kg (300 lb 9.6 oz). Most recent hematocrit and potassium results: Hematocrit 37.5 09/26/2024 Potassium 4.0 09/26/2024 Relevant Problems ANESTHESIA (+) CONCHA (obstructive sleep apnea) CARDIO (+) CHF (congestive heart failure) (HCC) (+) HTN (hypertension) (+) Paroxysmal A-fib (HCC) ENDO (+) Diabetes mellitus, type 2 (HCC) GI (+) GERD (gastroesophageal reflux disease) NEURO-PSYCH (+) History of gastritis PULMONARY (+) COPD (chronic obstructive pulmonary disease) (HCC) (+) CONCHA (obstructive sleep apnea) I - PHYSICAL EVALUATION AIRWAY Patient intubated: No. Tracheostomy tube not present Mallampati: II. TM distance: >3 FB. Neck ROM: full ROM without neurological symptoms. Mouth opening: adequate. Short neck: no. Thick neck: no DENTAL Dental findings: teeth intact. II - ANESTHESIA PLAN ASA Score: 4 Anesthetic Plan: MAC NPO Status: adequate Beta Malick Monitoring Plan Monitoring plan: standard ASA. Post Procedure Analgesic Plan Postoperative analgesic plan: parenteral or oral opioids. Informed Consent Anesthetic risks, benefits, alternatives, personnel and consent discussed: yes. Patient / Responsible Green Party agrees to proceed: yes Patient / Surrogate agrees to blood products: Yes DNR status not reviewed with patient and/or family prior to surgery. Significant changes in the patient condition since the History and Physical, not otherwise documented in primary service progress note: no. Potential Anesthesia issues that may suggest increased risk of complications or contraindication to planned procedure: none. Vitals Value Taken Time BP 165/70 10/17/24 0938 Pulse Resp 18 10/17/24 0938 Temp 36.7 ?C (98.1 ?F) 10/17/24 0938 SpO2 94 % 10/17/24 0938 Outpatient Medications as of 10/17/2024 Medication Sig acyclovir (ZOVIRAX) 400 mg tablet Take 1 tablet by mouth two times a day. tiZANidine (ZANAFLEX) 4 mg tablet Take 4 mg by mouth every 8 hours as needed. insulin glargine,hum.rec.anlog (BASAGLAR KWIKPEN U-100 INSULIN SUBCUTANEOUS) Inject subcutaneously. 60 units with breakfast 60 units with dinner 42 units at bedtime HUMALOG KWIKPEN INSULIN 100 unit/mL 28 units with breakfast, 34 units with lunch, 46 units with dinner. fluticasone-umeclidin- vilanter (TRELEGY ELLIPTA) 200-62.5-25 mcg inhalation powder Inhale 1 Puff as instructed once daily. dilTIAZem CD (CARDIZEM CD, CARTIA XT) 240 mg 24 hr capsule Take 1 capsule by mouth once daily. acetaminophen (TYLENOL EXTRA STRENGTH) 500 mg tablet Take 1,500 mg by mouth every 8 hours as needed. torsemide (DEMADEX) 10 mg tablet Take 10 mg by mouth once daily as needed. losartan (COZAAR) 50 mg tablet Take 50 mg by mouth once daily. pantoprazole DR (PROTONIX) 40 mg tablet Take 40 mg by mouth once daily. metFORMIN (GLUCOPHAGE) 1,000 mg tablet Take 1,000 mg by mouth twice daily with meals. atorvastatin (LIPITOR) 20 mg tablet Take 20 mg by mouth once daily. potassium chloride ER (KLOR-CON) 20 mEq tablet Take 1 tablet by mouth once daily. apixaban (ELIQUIS) 5 mg tab(s) Take 5 mg by mouth two times a day. calcium carbonate/vitamin D3 (CALCIUM + D ORAL) Take 1 tablet by mouth once daily. iv contrast (will be provided with radiology test) CT Chest W -Inject, intravenously, once for 1 dose.No IV access, insert saline lock prior to the beginning of sedation, infusion, injection of imaging exam. Discontinue saline lock post exam. If Pt. has a central line or IVAD, may access for administration according to line specific nursing protocol. Once exam is complete flush line and de-access according to line specific nursing protocol in the CT contrast administration guidelines link. iv contrast (will be provided with radiology test) CT ABD/PEL -Inject, intravenously, once for 1 dose.No IV access, insert saline lock prior to the beginning of sedation, infusion, injection of imaging exam. Discontinue saline lock post exam. If Pt. has a central line or IVAD, may access for administration according to line specific nursing protocol. Once exam is complete flush line and de-access according to line specific nursing protocol in the CT contrast administration guidelines link. enteric contrast (will be provided with radiology test) For CT ABD/PEL W IVCON Routine order Administer, As Directed One Time Only, via (more content not included)... Normal [facility] Colonoscopyon 10-17-2024 Colonoscopy [facility] Gastrointestinal Endoscopy Patient Name: Cyn James Procedure Date: 10/17/2024 10:23 AM Date of : 1950 Admit Type: Outpatient Age: 74 Room: [facility] Room B Gender: Male Note Status: Finalized Attending MD: Josephine Sutton MD, [id number] Procedure: Colonoscopy - screening high risk Indications: High risk colon cancer surveillance: Personal history of colon cancer s/p colectomy Providers: Josephine Sutton MD Patient Profile: Refer to note in patient chart for documentation of history and physical. Last Colonoscopy: 2023. Referring Physician: Medicines: See the Anesthesia note for documentation of the administered medications Complications: No immediate complications. Requesting Provider: Procedure: Pre-Anesthesia Assessment: - Monitored anesthesia care under the supervision of a MANAGER MARKETING was determined to be medically necessary for this procedure based on review of the patient's medical history, medications, and prior anesthesia history. After I obtained informed consent, the scope was passed under direct vision. Throughout the procedure, the patient's blood pressure, pulse, and oxygen saturations were monitored continuously. The Colonoscope was introduced through the anus and advanced to the cecum, identified by the appendiceal orifice, ileocecal valve and palpation. The colonoscopy was performed without difficulty. The patient tolerated the procedure well. The quality of the bowel preparation was adequate. The appendiceal orifice was photographed. Scope Withdrawal Time: 0 hours 14 minutes 36 seconds Moderate Sedation: MAC anesthesia was administered by the anesthesia team. Total Procedure Duration: 0 hours 19 minutes 58 seconds Findings: The perianal and digital rectal examinations were normal. Non-bleeding external and internal hemorrhoids were found during retroflexion. A 3 to 6 mm polyp was found in the hepatic flexure. The polyp was sessile. The polyp was removed with a hot snare. Resection and retrieval were complete. Verification of patient identification for the specimen was done by the nurse. Estimated blood loss was minimal. A 4 to 6 mm polyp was found in the sigmoid colon. The polyp was sessile. The polyp was removed with a hot snare. Resection and retrieval were complete. Verification of patient identification for the specimen was done by the nurse. Estimated blood loss was minimal. An 8 to 11 mm polyp was found in the rectum. The polyp was sessile. The polyp was removed with a hot snare. Resection and retrieval were complete. Verification of patient identification for the specimen was done by the nurse. Estimated blood loss was minimal. Impression: - Non-bleeding external and internal hemorrhoids. - One 3 to 6 mm polyp at the hepatic flexure, removed with a hot snare. Resected and retrieved. - One 4 to 6 mm polyp in the sigmoid colon, removed with a hot snare. Resected and retrieved. - One 8 to 11 mm polyp in the rectum, removed with a hot snare. Resected and retrieved. Recommendation: - Repeat colonoscopy in 1 - 2 year for surveillance. - Return to primary care physician PRN. - Await pathology results. - - Follow up with Kamilla Hathaway NP, , may be via televisit for discussion of pathology results and determination of timing of future endoscopies - Patient has a contact number available for emergencies. The signs and symptoms of potential delayed complications were discussed with the patient. Return to normal activities tomorrow. Written discharge instructions were provided to the patient. - Continue present medications. - Resume previous diet. Procedure Code(s): --- Professional --- 45845, Colonoscopy, flexible; with removal of tumor(s), polyp(s), or other lesion(s) by snare technique Diagnosis Code(s): --- Professional --- D12.8, Benign neoplasm of rectum D12.5, Benign neoplasm of sigmoid colon D12.3, Benign neoplasm of transverse colon (hepatic flexure or splenic flexure) K64.8, Other hemorrhoids Z85.038, Personal history of other malignant neoplasm of large intestine Z12.11, Encounter for screening for malignant neoplasm of colon CPT copyright 2020 [employer]. All rights reserved. The codes documented in this report are preliminary and upon machine operator picker review may be revised to meet current compliance requirements. Attending Participation: I personally performed the entire procedure. Scope In: 10:27:15 AM Scope Out: 10:47:13 AM MD Josephine Wilhelm MD 10/17/2024 10:51:40 AM This report has been signed electronically by Josephine Sutton MD Number of Addenda: 0 Note Initiated On: 10/17/2024 10:23 AM Estimated Blood Loss: Estimated blood loss was minimal. Normal [facility] Colonoscopy Study observatio non 10-17-2024 [facility] Gastrointestinal Endoscopy Patient Name: Cyn James Procedure Date: 10/17/2024 10:23 AM Date of : 1950 Admit Type: Outpatient Age: 74 Room: [facility] Room B Gender: Male Note Status: Finalized Attending MD: Josephine Sutton MD, [id number] Procedure: Colonoscopy - screening high risk Indications: High risk colon cancer surveillance: Personal history of colon cancer s/p colectomy Providers: Josephine Sutton MD Patient Profile: Refer to note in patient chart for documentation of history and physical. Last Colonoscopy: 2023. Referring Physician: Medicines: See the Anesthesia note for documentation of the administered medications Complications: No immediate complications. Requesting Provider: Procedure: Pre-Anesthesia Assessment: - Monitored anesthesia care under the supervision of a MANAGER MARKETING was determined to be medically necessary for this procedure based on review of the patient's medical history, medications, and prior anesthesia history. After I obtained informed consent, the scope was passed under direct vision. Throughout the procedure, the patient's blood pressure, pulse, and oxygen saturations were monitored continuously. The Colonoscope was introduced through the anus and advanced to the cecum, identified by the appendiceal orifice, ileocecal valve and palpation. The colonoscopy was performed without difficulty. The patient tolerated the procedure well. The quality of the bowel preparation was adequate. The appendiceal orifice was photographed. Scope Withdrawal Time: 0 hours 14 minutes 36 seconds Moderate Sedation: MAC anesthesia was administered by the anesthesia team. Total Procedure Duration: 0 hours 19 minutes 58 seconds Findings: The perianal and digital rectal examinations were normal. Non-bleeding external and internal hemorrhoids were found during retroflexion. A 3 to 6 mm polyp was found in the hepatic flexure. The polyp was sessile. The polyp was removed with a hot snare. Resection and retrieval were complete. Verification of patient identification for the specimen was done by the nurse. Estimated blood loss was minimal. A 4 to 6 mm polyp was found in the sigmoid colon. The polyp was sessile. The polyp was removed with a hot snare. Resection and retrieval were complete. Verification of patient identification for the specimen was done by the nurse. Estimated blood loss was minimal. An 8 to 11 mm polyp was found in the rectum. The polyp was sessile. The polyp was removed with a hot snare. Resection and retrieval were complete. Verification of patient identification for the specimen was done by the nurse. Estimated blood loss was minimal. Impression: - Non-bleeding external and internal hemorrhoids. - One 3 to 6 mm polyp at the hepatic flexure, removed with a hot snare. Resected and retrieved. - One 4 to 6 mm polyp in the sigmoid colon, removed with a hot snare. Resected and retrieved. - One 8 to 11 mm polyp in the rectum, removed with a hot snare. Resected and retrieved. Recommendation: - Repeat colonoscopy in 1 - 2 year for surveillance. - Return to primary care physician PRN. - Await pathology results. - - Follow up with Kamilla Hathaway NP, , may be via televisit for discussion of pathology results and determination of timing of future endoscopies - Patient has a contact number available for emergencies. The signs and symptoms of potential delayed complications were discussed with the patient. Return to normal activities tomorrow. Written discharge instructions were provided to the patient. - Continue present medications. - Resume previous diet. Procedure Code(s): --- Professional --- 32797, Colonoscopy, flexible; with removal of tumor(s), polyp(s), or other lesion(s) by snare technique Diag (more content not included)... [facility] [place] [facility] Radiology Study observation (narrative) [facility] EGD Study observation Narrat noah 10-17-2024 [facility] Gastrointestinal Endoscopy Patient Name: Cyn James Procedure Date: 10/17/2024 10:01 AM Date of : 1950 Admit Type: Outpatient Age: 74 Room: [facility] Room B Gender: Male Note Status: Finalized Attending MD: Josephine Sutton MD, [id number] Procedure: Upper GI endoscopy Indications: Iron deficiency anemia Providers: Josephine Sutton MD Patient Profile: Refer to note in patient chart for documentation of history and physical. Referring Physician: Medicines: See the Anesthesia note for documentation of the administered medications Complications: No immediate complications. Requesting Provider: Procedure: Pre-Anesthesia Assessment: - Monitored anesthesia care under the supervision of a MANAGER MARKETING was determined to be medically necessary for this procedure based on review of the patient's medical history, medications, and prior anesthesia history. After obtaining informed consent, the endoscope was passed under direct vision. Throughout the procedure, the patient's blood pressure, pulse, and oxygen saturations were monitored continuously. The was introduced through the mouth, and advanced to the second part of duodenum. The upper GI endoscopy was accomplished without difficulty. The patient tolerated the procedure well. Moderate Sedation: MAC anesthesia was administered by the anesthesia team. Total Procedure Duration: 0 hours 5 minutes 18 seconds Findings: The duodenal bulb, first portion of the duodenum and second portion of the duodenum were normal. Localized mildly radial erythematous mucosa without bleeding was found in the gastric antrum. Retained bile noted in stomach. Biopsies were taken with a cold forceps for Helicobacter pylori testing. Verification of patient identification for the specimen was done by the nurse. Estimated blood loss was minimal. The examined esophagus was normal, no hiatal hernia noted. Impression: - Normal duodenal bulb, first portion of the duodenum and second portion of the duodenum. - Erythematous mucosa in the antrum. Biopsied. - Normal esophagus. Recommendation: - Discharge patient to home (ambulatory). - Resume previous diet. - Continue present medications. - Await pathology results. - - Follow up with Kamilla Hathaway NP, , may be via televisit for discussion of pathology results Procedure Code(s): --- Professional --- 84141, Esophagogastroduodenos copy, flexible, transoral; with biopsy, single or multiple Diagnosis Code(s): --- Professional --- D50.9, Iron deficiency anemia, unspecified K31.89, Other diseases of stomach and duodenum CPT copyright 2020 [employer]. All rights reserved. The codes documented in this report are preliminary and upon machine operator picker review may be revised to meet current compliance requirements. Attending Participation: I personally performed the entire procedure. Scope In: 10:17:30 AM Scope Out: 10:22:48 AM MD Josephine Wilhelm MD 10/17/2024 10:26:25 AM This report has been signed electronically by Josephine Sutton MD Number of Addenda: 0 Note Initiated On: 10/17/2024 10:01 AM Estimated Blood Loss: Estimated blood loss was minimal. [facility] [place] [facility] Radiology Study observation (narrative) [facility] GLUCOSE, BLOOD (POC)on 10-17 Glucose [Mass/Vol] 124 mg/dL Abnormal 74 - 99 mg/dL [facility] [place] [facility] Comment on above: Location:[facility], [facility] [place], [place], [facility] The Accu-Chek Inform II glucose meter has not been approved for testing on patients receiving intensive medical intervention or therapy and results from this point of care glucose test should not be used for patient management decisions in these cases. Inaccurate results may also occur from other interfering factors, such as N-acetylcysteine (blood concentrations of greater than 5mg/dL), galactose, extremes of hematocrit (<10 or >65), or high doses of ascorbic acid (vitamin C) greater than 3mg/dL. Consider alternate testing mechanisms (e.g. core lab, blood gas instrument) in the above situations. Interpretation and review of laboratory results Abnormal [facility] Glucose [Mass/Vol] 128 mg/dL Abnormal 74 - 99 mg/dL [facility] [place] [facility] Comment on above: Location:[facility], [facility] [place], [place], [facility] The Accu-Chek Inform II glucose meter has not been approved for testing on patients receiving intensive medical intervention or therapy and results from this point of care glucose test should not be used for patient management decisions in these cases. Inaccurate results may also occur from other interfering factors, such as N-acetylcysteine (blood concentrations of greater than 5mg/dL), galactose, extremes of hematocrit (<10 or >65), or high doses of ascorbic acid (vitamin C) greater than 3mg/dL. Consider alternate testing mechanisms (e.g. core lab, blood gas instrument) in the above situations. Interpretation and review of laboratory results Abnormal [facility] HISTORY PHYSICALon HISTORY PHYSICAL HNO ID: [id number] Author: JOSEPHINE SUTTON MD Service: General Surgery Author Type: Physician Type: H&P Filed: 10/17/2024 09:05 Note Text: HISTORY AND PHYSICAL Cyn James 1950 REFERRING PHYSICIAN: Katey Bokoer DO CHIEF COMPLAINT: Consult (colonoscopy with history of colon cancer) HPI: The patient is a 74 year old male referred for endoscopy. Cyn notes history of colon cancer. 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 He had presented to [facility] and diagnosed with pneumonia and discharged on home supplemental oxygen. He denies blood in his stools. He denies chronic abdominal pain. He denies chest pain; denies history of [place]. Found to have anemia. 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 Leukocytosis 05/03/2023 Marijuana user 05/03/2023 Mixed hyperlipidemia Morbid obesity (HCC) 05/03/2023 Multiple myeloma not having achieved remission ([facility]) 09/24/2022 On home O2 05/03/2023 CONCHA (obstructive sleep apnea) 05/03/2023 Peripheral sensory neuropathy Psoriasis 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 tiZANidine (ZANAFLEX) 4 mg tablet Take 4 mg by mouth every 8 hours as needed. apixaban (ELIQUIS) 5 mg tab(s) Take 5 mg by mouth two times a day. insulin glargine,hum.rec.anlog (BASAGLAR KWIKPEN U-100 INSULIN SUBCUTANEOUS) Inject subcutaneously. 60 units with breakfast 60 units with dinner 42 units at bedtime HUMALOG KWIKPEN INSULIN 100 unit/mL 28 units with breakfast, 34 units with lunch, 46 units with dinner. calcium carbonate/vitamin D3 (CALCIUM + D ORAL) Take 1 tablet by mouth once daily. potassium chloride ER (KLOR-CON) 20 mEq tablet Take 1 tablet by mouth once daily. fluticasone-umeclidin- vilanter (TRELEGY ELLIPTA) 200-62.5-25 mcg inhalation powder Inhale 1 Puff as instructed once daily. dexAMETHasone (DECADRON) 4 mg tablet Take 5 tablets with breakfast on day of each daratumuamb treatment. ondansetron (ZOFRAN) 8 mg tablet Take 1 tablet by mouth every 8 hours as needed for nausea/vomiting. dilTIAZem CD (CARDIZEM CD, CARTIA XT) 240 mg 24 hr capsule Take 1 capsule by mouth once daily. empagliflozin (JARDIANCE) 10 mg tablet Take 10 mg by mouth once daily. acetaminophen (TYLENOL EXTRA STRENGTH) 500 mg tablet Take 1,500 mg by mouth every 8 hours as needed. torsemide (DEMADEX) 10 mg tablet Take 10 mg by mouth once daily as needed. losartan (COZAAR) 50 mg tablet Take 50 mg by mouth once daily. pantoprazole DR (PROTONIX) 40 mg tablet Take 40 mg by mouth once daily. cholecalciferol (VITAMIN D-3) 50 mcg (2,000 unit) tablet Take 2,000 Units by mouth once daily. OMEGA-3 FATTY ACIDS ORAL Take 1 tablet by mouth once daily. magnesium oxide/magnesium (MAGNESIUM OXIDE-MG AA CHELATE ORAL) Take 250 mg by mouth once daily. albuterol HFA (PROVENTIL HFA, VENTOLIN HFA) 90 mcg/actuation inhaler Inhale 1 Puff as instructed as needed. metFORMIN (GLUCOPHAGE) 1,000 mg tablet Take 1,000 mg by mouth twice daily with meals. atorvastatin (LIPITOR) 20 mg tablet Take 20 mg by mouth once daily. furosemide (LASIX) 40 mg tablet Take 40 mg by mouth once daily. (Patient not taking: Reported on 07/04/2024) FIASP FLEXTOUCH U-100 INSULIN 100 unit/mL (3 mL) pen 22 units with breakfast, 36 units with lunch, 54 units with dinner. TRESIBA U-100 INSULIN 100 unit/mL injection 60 units with breakfast, 60 units with dinner, 54 units at bedtime. (Patient not taking: Reported on 06/06/2024) iv contrast (will be provided with radiology test) CT Chest W -Inject, intravenously, once for 1 dose.No IV access, insert saline lock prior to the beginning of sedation, infusion, injection of imaging exam. Discontinue saline lock post exam. If Pt. has a central line or IVAD, may access for administration according to line specific nursing protocol. Once exam is complete flush line and de-access according to line specific nursing protocol in the CT contrast administration guidelines link. iv contrast (will be provided with radiology test) CT ABD/PEL - (more content not included)... [facility] Pathology biopsy report Shalom (Tiss)on 10-17-2024 AP DISCLAIMER [facility] Comment on above: Order Comment: Speci men Type: TISSUE SPECIMEN Ordering Facility: [facility] Address: [address] [place] [address] Result Comment: January hernández Developed Test (LDT) Disclaimer: Performance characteristics of immunohistochemical, immunofluorescent, and chromogenic in-situ hybridization tests have been determined by the performing laboratory within [facility] [place] [facility]'s [facility] Pathology and Laboratory Medicine Department ([facility], [facility], [facility], [facility], [facility], [facility], or [facility]) in a manner consistent with CLIA requirements. One or more of these tests may not have been cleared or approved by the FDA. [facility] is regulated under CLIA as qualified to perform high-complexity testing. These tests are used for clinical purposes. These should not be regarded as investigational or for research. Positive and negative controls stain appropriately. Performed By: #### 6 6121-5 #### [facility] CLIA [id number] [address] [place] [address] [place] [address] [place] CASE REPORT Normal [facility] Comment on above: Order Comment: Speci men Type: TISSUE SPECIMEN Ordering Facility: [facility] Address: [address] [place] [address] Result Comment: Surg ical Pathology Report Case: [id number] Authorizing Provider: Josephine Sutton MD Collected: 10/17/2024 10:20 AM Ordering Location: [facility] Endoscopy Received: 10/17/2024 11:06 AM Pathologist: Luis Manuel Allan MD, PhD Specimens: A) - Stomach, Biopsy, hp B) - Colon, Hepatic Flexure, Polyp C) - Colon, Sigmoid, Polyp D) - Rectum, Polyp Performed By: #### 6 6121-5 #### [facility] CLIA [id number] [address] [place] [address] FINAL DIAGNOSIS Normal [facility] Comment on above: Order Comment: Speci men Type: TISSUE SPECIMEN Ordering Facility: [facility] Address: [address] [place] [address] Result Comment: A. S tomach, Biopsy: - Minimal chronic inactive gastritis and reactive change in antral mucosa. - Negative for intestinal metaplasia or dysplasia. - No H. pylori on routine stain. B. Colon, Hepatic Flexure, Polyp, polypectomy: - Inflammatory-type polyp. C. Colon, Sigmoid, Polyp, polypectomy: - Tubular adenoma. D. Rectum, Polyp, polypectomy: - Tubular adenoma. at 1402 EDT Performed By: #### 6 6121-5 #### [facility] CLIA [id number] [address] [place] [address] FINAL PERFORMING LAB Normal [facility] Comment on above: Order Comment: Speci men Type: TISSUE SPECIMEN Ordering Facility: [facility] Address: [address] [place] [address] Result Comment: Diag nostic interpretation performed at: [facility], [address] [place] [address] CLIA# [id number] Cutter Aluminum Sheet: Bc Bhakta MD Performed By: #### 6 6121-5 #### [facility] CLIA [id number] [address] [place] [address] STATES OF [facility] GROSS DESCRIPTION Normal [facility] Comment on above: Order Comment: Speci men Type: TISSUE SPECIMEN Ordering Facility: [facility] Address: [address] [place] [address] Result Comment: A. S tomach, Biopsy Received in formalin is one piece of vaughn, soft tissue measuring 0.3 x 0.3 x 0.1 cm. Totally submitted in one cassette. B. Colon, Hepatic Flexure, Polyp Received in formalin is one piece of vaughn-red, soft tissue measuring 0.4 x 0.3 x 0.2 cm. Totally submitted in one cassette. C. Colon, Sigmoid, Polyp Received in formalin is one piece of vauhgn, soft tissue measuring 0.5 x 0.3 x 0.3 cm. Totally submitted in one cassette. AJB October 17, 2024 2:50 PM Gross examination performed at [facility], [address] [place] [address] D. Rectum, Polyp Received in formalin is a pink polypoid segment of tissue measuring 0.6 x 0.5 x 0.4 cm. No stalk is noted. The apparent line of resection is noted. The specimen is bisected. Totally submitted in one cassette. CL October 17, 2024 3:29 PM Gross examination performed at [facility], [address] [place] [address] Performed By: #### 6 6121-5 #### [facility] CLIA [id number] [address] [place] [address] [place] Upper GI endoscopy 06-25-2 025 Upper GI endoscopy [facility] Gastrointestinal Endoscopy Patient Name: Cyn James Procedure Date: 10/17/2024 10:01 AM Date of : 1950 Admit Type: Outpatient Age: 74 Room: [facility] Room B Gender: Male Note Status: Finalized Attending MD: Josephine Sutton MD, [id number] Procedure: Upper GI endoscopy Indications: Iron deficiency anemia Providers: Josephine Sutton MD Patient Profile: Refer to note in patient chart for documentation of history and physical. Referring Physician: Medicines: See the Anesthesia note for documentation of the administered medications Complications: No immediate complications. Requesting Provider: Procedure: Pre-Anesthesia Assessment: - Monitored anesthesia care under the supervision of a MANAGER MARKETING was determined to be medically necessary for this procedure based on review of the patient's medical history, medications, and prior anesthesia history. After obtaining informed consent, the endoscope was passed under direct vision. Throughout the procedure, the patient's blood pressure, pulse, and oxygen saturations were monitored continuously. The was introduced through the mouth, and advanced to the second part of duodenum. The upper GI endoscopy was accomplished without difficulty. The patient tolerated the procedure well. Moderate Sedation: MAC anesthesia was administered by the anesthesia team. Total Procedure Duration: 0 hours 5 minutes 18 seconds Findings: The duodenal bulb, first portion of the duodenum and second portion of the duodenum were normal. Localized mildly radial erythematous mucosa without bleeding was found in the gastric antrum. Retained bile noted in stomach. Biopsies were taken with a cold forceps for Helicobacter pylori testing. Verification of patient identification for the specimen was done by the nurse. Estimated blood loss was minimal. The examined esophagus was normal, no hiatal hernia noted. Impression: - Normal duodenal bulb, first portion of the duodenum and second portion of the duodenum. - Erythematous mucosa in the antrum. Biopsied. - Normal esophagus. Recommendation: - Discharge patient to home (ambulatory). - Resume previous diet. - Continue present medications. - Await pathology results. - - Follow up with Kamilla Hathaway NP, , may be via televisit for discussion of pathology results Procedure Code(s): --- Professional --- 56790, Esophagogastroduodenos copy, flexible, transoral; with biopsy, single or multiple Diagnosis Code(s): --- Professional --- D50.9, Iron deficiency anemia, unspecified K31.89, Other diseases of stomach and duodenum CPT copyright 2020 [employer]. All rights reserved. The codes documented in this report are preliminary and upon machine operator picker review may be revised to meet current compliance requirements. Attending Participation: I personally performed the entire procedure. Scope In: 10:17:30 AM Scope Out: 10:22:48 AM MD Josephine Wilhelm MD 10/17/2024 10:26:25 AM This report has been signed electronically by Josephine Sutton MD Number of Addenda: 0 Note Initiated On: 10/17/2024 10:01 AM Estimated Blood Loss: Estimated blood loss was minimal. Normal [facility] Absolute lymphocyte countOrd ered By: Zeus Swanson on 10-04-2024 Lymphocytes Auto (Unsp spec) [#/Vol] 1.05 10*3/uL 0.83-4.51 [facility] Absolute neutrophil countOrd ered By: Zeus Swanson on 10-04-2024 Neutrophils (Bld) [#/Vol] 9.2 10*3/uL High 2.0-7.7 [facility] Anion gap in Serum or Plasma Ordered By: Zeuslata Swanson on 10-04-2024 Anion gap [Moles/Vol] 12 mmol/L 5-15 [facility] Automated lymphocyte count a s percentage of total leukocytesOrdered By: Zeus Swanson on 10-04-2024 Lymphocytes/100 WBC Auto (Unsp spec) 9.0 % Low 19-41 [facility] BUN/creatinine ratioOrdered By: Zeuslata Swanson on 10-04-2024 Urea nitrogen/Creatinine [Mass ratio] 22.8 mg/mg High 10-20 [facility] Basic Metabolic Profile (BMP )on 10-04-2024 BUN/CRE 22.8 RATIO High 10-20 [facility] Comment on above: Performed By: #### L 500.2500, L100.0100 ####[facility] [address] [place], [address] Calcium [Mass/Vol] 9.2 mg/dL Normal 7.6-11.0 [facility] Comment on above: Performed By: #### L 500.2500, L100.0100 ####[facility] [address] [place], [address] Chloride [Moles/Vol] 103 mmol/L Normal 98-108 [facility] Comment on above: Performed By: #### L 500.2500, L100.0100 ####[facility] [address] [place], [address] CO2 [Moles/Vol] 25.7 mmol/L Normal 21.0-32.0 [facility] Comment on above: Performed By: #### L 500.2500, L100.0100 ####[facility] [address] [place], [address] Creatinine [Mass/Vol] 0.79 mg/dL Normal 0.70-1.20 [facility] Comment on above: Performed By: #### L 500.2500, L100.0100 ####[facility] [address] [place], [address] GAP 12 Normal 5-15 [facility] Comment on above: Performed By: #### L 500.2500, L100.0100 ####[facility] [address] [place], [address] GFR/1.73 sq M.predicted among non-blacks MDRD (S/P/Bld) [Vol rate/Area] 95 mL/min/{1.73_m2} Normal >60 [facility] Comment on above: Result Comment: mL/m in/1.73m2 CKD-EPI Creatinine Equation (2020) Performed By: #### L 500.2500, L100.0100 ####[facility] [address] [place], [address] Glucose [Mass/Vol] 85 mg/dL Normal 70-99 [facility] Comment on above: Performed By: #### L 500.2500, L100.0100 ####[facility] [address] [place], [address] Potassium [Moles/Vol] 4.1 mmol/L Normal 3.3-5.1 [facility] Comment on above: Performed By: #### L 500.2500, L100.0100 ####[facility] [address] [place], [address] Sodium [Moles/Vol] 141 mmol/L Normal 133-145 [facility] Comment on above: Performed By: #### L 500.2500, L100.0100 ####[facility] [address] [place], [address] Urea nitrogen [Mass/Vol] 18 mg/dL Normal 4-19 [facility] Comment on above: Performed By: #### L 500.2500, L100.0100 ####[facility] [address] [place], [address] Basophil percentageOrdered B y: Zeus Lingiter on 10-04-2024 Basophils/100 WBC (Bld) 0.4 % 0-1 [facility] Blood manual differential co mment interpretation (narrative result)Ordered By: Zeus Kiki on 10-04-2024 Manual differential comment Shalom (Bld) [Interp] SCANNED [facility] Blood polychromasia detectio n by light microscopyOrdered By: Zeus Swanson on 10-04-2024 Polychromasia LM Ql (Bld) 1+ [facility] CBC W/Diff, Automatedon 09-23 Anisocytosis Ql (Bld) 1+ Normal [facility] Comment on above: Performed By: #### L 500.2500, L100.0100 ####[facility] [address] [place], [address] POLYCHROMASIA 1+ Normal [facility] Comment on above: Performed By: #### L 500.2500, L100.0100 ####[facility] [address] [place], [address] PLT EST ADEQUATE Normal ADEQ [facility] Comment on above: Performed By: #### L 500.2500, L100.0100 ####[facility] [address] [place], [address] SMEAR COMMENT SCANNED Normal [facility] Comment on above: Performed By: #### L 500.2500, L100.0100 ####[facility] [address] [place], [address] Carbon dioxide, total [Moles /volume] in Central venous bloodOrdered By: Zeus Swanson on 10-04-2024 CO2 [Moles/Vol] 25.7 mmol/L 21.0-32.0 [facility] Chloride assayOrdered By: Flakita Swanson on 10-04-2024 Chloride [Moles/Vol] 103 mmol/L 98-108 [facility] Eosinophil percentageOrdered By: Zeus Swanson on 10-04-2024 Eosinophils/100 WBC (Bld) 0.9 % 0-5 [facility] Erythrocyte distribution wid th ratioOrdered By: Zeus Swanson on 10-04-2024 Erythrocyte distribution width (RBC) [Ratio] 24.2 % High 11.6-14.6 [facility] Erythrocyte distribution wid th standard deviationOrdered By: Zeus Swanson on 10-04-2024 Erythrocyte distribution width (RBC) [Ratio] 66.7 fl High 35.1-43.9 [facility] Glomerular filtration rate ( GFR) estimation/1.73 sq m using serum, plasma, or whole bOrdered By: Zeus Swanson on 10-04-2024 GFR/1.73 sq M.predicted among non-blacks MDRD (S/P/Bld) [Vol rate/Area] 95 mL/min/{1.73_m2} >60 [facility] Comment on above: mL/min/1.73m2 CKD-EP I Creatinine Equation (2020) HISTORY PHYSICALon HISTORY PHYSICAL Normal [facility] Hematocrit Auto (Bld) [Volum e fraction]Ordered By: Zeus Swanson on 10-04-2024 Hematocrit (Bld) [Volume fraction] 37.5 % Low 40-54 [facility] Hemoglobin measurementOrdere d By: Zeus Swanson on 10-04-2024 Hemoglobin (Bld) [Mass/Vol] 10.8 g/dL Low 13.0-16.5 [facility] Immature granulocytes/100 WB C Auto (Bld)Ordered By: Zeus Swanson on 10-04-2024 Immature granulocytes/100 WBC (Bld) 0.400 % 0.0-0.9 [facility] Comment on above: IG% - Immature Granu locytes (promyelocytes, myelocytes and metamyelocytes) > 1% indicates that a LEFT SHIFT is Present. Laboratory - Hematology and Cell countsOrdered By: Zeus Swanson on 10-04-2024 Anisocytosis Ql (Bld) 1+ [facility] MCV (mean corpuscular volume ) determinationOrdered By: Zeus Swanson on 10-04-2024 MCV (RBC) [Entitic vol] 78.0 fL Low 80-94 [facility] Mean corpuscular hemoglobin (MCH) determinationOrdered By: Zeus Swanson on 10-04-2024 MCH (RBC) [Entitic mass] 22.5 pg Low 27.0-32.0 [facility] Mean corpuscular hemoglobin concentration (MCHC) determinationOrdered By: Zeus Swanson on 10-04-2024 MCHC (RBC) [Mass/Vol] 28.8 g/dL Low 32-36 [facility] Mean platelet volume determi nationOrdered By: Zeus Swanson on 10-04-2024 Platelet mean volume (Bld) [Entitic vol] 10.7 fL 6.2-12.0 [facility] Monocyte percentageOrdered B y: Zeus Swanson on 10-04-2024 Monocytes/100 WBC (Bld) 10.3 % High 0-10 [facility] Neutrophil percentageOrdered By: Zeus Swanson on 10-04-2024 Neutrophils/100 WBC (Bld) 79.0 % High 47-70 [facility] No Panel InformationOrdered By: Zeus Swanson on 10-04-2024 1+ [facility] Nucleated red blood cell per centageOrdered By: Zeus Swanson on 10-04-2024 Nucleated RBC/100 WBC (Bld) [Ratio] 0 % 0-5 [facility] Platelet countOrdered By: Flakita Swanson on 10-04-2024 Platelets (Bld) [#/Vol] 372 10*3/uL 150-450 [facility] Platelet estimateOrdered By: Zeus Swanson on 10-04-2024 Platelets LM Ql (Bld) ADEQUATE ADEQ [facility] Potassium measurement (mass/ volume)Ordered By: Zeus Swanson on 10-04-2024 Potassium (Unsp spec) [Mass/Vol] 4.1 mmol/L 3.3-5.1 [facility] RBC Auto (Bld) [#/Vol]Ordere d By: Zeus Swanson on 10-04-2024 RBC (Bld) [#/Vol] 4.81 10*6/uL 4.6-6.[address] [facility] Serum creatinine measurement (mass/volume)Ordered By: Zeus Swanson on 10-04-2024 Creatinine [Mass/Vol] 0.79 mg/dL 0.70-1.20 [facility] Serum glucose measurement (m ass/volume)Ordered By: Zeus Swanson on 10-04-2024 Glucose [Mass/Vol] 85 mg/dL 70-99 [facility] Serum or plasma calcium yvonne urement (mass/volume)Ordered By: Zeuslata Swanson on 10-04-2024 Calcium [Mass/Vol] 9.2 mg/dL 7.6-11.0 [facility] Serum or plasma urea nitroge n measurement (mass/volume)Ordered By: Zeuslata Swanson on 10-04-2024 Urea nitrogen [Mass/Vol] 18 mg/dL 4-19 [facility] Sodium levelOrdered By: [facility] Kiki on 10-04-2024 Sodium [Moles/Vol] 141 mmol/L 133-145 [facility] White blood cell (WBC) count Ordered By: Zeus Swanson on 10-04-2024 WBC (Bld) [#/Vol] 11.7 10*3/uL High 4.4-11.[address] [facility] CNPNon 10-02-2024 JANICEN Telephone (MEPRAD) CYN JAMES JR ([id number]) 1950 M Date Time Provider Department 10/02/24 ROSALBA MIX During your visit today, we recorded the following information about you: Rosalba Mix PA-C 10/02/2024 5:34 PM Signed TELEPHONE ENCOUNTER Cyn James JR's medication list was reviewed and patient was noted to be taking Jardiance per patient chart. The patient was contacted via telephone and it was discussed that the patient hold their medication 3 day(s) prior to their date of surgery. Patient confirmed understanding. Patient was also informed to reach out to their surgeon's office if they have any further questions or concerns, patient indicated understanding. SIGNATURE: Rosalba Mix PA-C PATIENT NAME: Cyn James JR DATE: October 02, 2024 Allergies As of Date: 10/02/2024 Noted Allergy Reaction PENICILLINS 10/30/2014 2 - Rash 7 - Swelling Date Reviewed: 09/26/2024 Reviewed by: Zulay Rasmussen RN - Fully Assessed Prescriptions as of 10/02/2024 - acyclovir (ZOVIRAX) 400 mg tablet Take 1 tablet by mouth two times a day. - potassium chloride ER (KLOR-CON) 20 mEq tablet Take 1 tablet by mouth once daily. - tiZANidine (ZANAFLEX) 4 mg tablet Take 4 mg by mouth every 8 hours as needed. - apixaban (ELIQUIS) 5 mg tab(s) Take 5 mg by mouth two times a day. - insulin glargine,hum.rec.anlog (BASAGLAR KWIKPEN U-100 INSULIN SUBCUTANEOUS) Inject subcutaneously. 60 units with breakfast 60 units with dinner 42 units at bedtime - HUMALOG KWIKPEN INSULIN 100 unit/mL 28 units with breakfast, 34 units with lunch, 46 units with dinner. - calcium carbonate/vitamin D3 (CALCIUM + D ORAL) Take 1 tablet by mouth once daily. - iv contrast (will be provided with radiology test) CT Chest W -Inject, intravenously, once for 1 dose.No IV access, insert saline lock prior to the beginning of sedation, infusion, injection of imaging exam. Discontinue saline lock post exam. If Pt. has a central line or IVAD, may access for administration according to line specific nursing protocol. Once exam is complete flush line and de-access according to line specific nursing protocol in the CT contrast administration guidelines link. - iv contrast (will be provided with radiology test) CT ABD/PEL -Inject, intravenously, once for 1 dose.No IV access, insert saline lock prior to the beginning of sedation, infusion, injection of imaging exam. Discontinue saline lock post exam. If Pt. has a central line or IVAD, may access for administration according to line specific nursing protocol. Once exam is complete flush line and de-access according to line specific nursing protocol in the CT contrast administration guidelines link. - enteric contrast (will be provided with radiology test) For CT ABD/PEL W IVCON Routine order Administer, As Directed One Time Only, via Oral, Rectal, both Oral and Rectal, Enteric Tube, Stoma or Indwelling Catheter, Enteric Contrast as designated per enteric contrast guidelines - fluticasone-umeclidin- vilanter (TRELEGY ELLIPTA) 200-62.5-25 mcg inhalation powder Inhale 1 Puff as instructed once daily. - dexAMETHasone (DECADRON) 4 mg tablet Take 5 tablets with breakfast on day of each daratumuamb treatment. - ondansetron (ZOFRAN) 8 mg tablet Take 1 tablet by mouth every 8 hours as needed for nausea/vomiting. - dilTIAZem CD (CARDIZEM CD, CARTIA XT) 240 mg 24 hr capsule Take 1 capsule by mouth once daily. - empagliflozin (JARDIANCE) 10 mg tablet Take 10 mg by mouth once daily. - acetaminophen (TYLENOL EXTRA STRENGTH) 500 mg tablet Take 1,500 mg by mouth every 8 hours as needed. - torsemide (DEMADEX) 10 mg tablet Take 10 mg by mouth once daily as needed. - losartan (COZAAR) 50 mg tablet Take 50 mg by mouth once daily. - pantoprazole DR (PROTONIX) 40 mg tablet Take 40 mg by mouth once daily. - cholecalciferol (VITAMIN D-3) 50 mcg (2,000 unit) tablet Take 2,000 Units by mouth once daily. - OMEGA-3 FATTY ACIDS ORAL Take 1 tablet by mouth once daily. - magnesium oxide/magnesium (MAGNESIUM OXIDE-MG AA CHELATE ORAL) Take 250 mg by mouth once daily. - albuterol HFA (PROVENTIL HFA, VENTOLIN HFA) 90 mcg/actuation inhaler Inhale 1 Puff as instructed as needed. - metFORMIN (GLUCOPHAGE) 1,000 mg tablet Take 1,000 mg by mouth twice daily with meals. - atorvastatin (LIPITOR) 20 mg tablet Take 20 mg by mouth once daily. 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 Normal [facility] B2 Microglob [facility] Igva-1-Hdjmxxdnncxah [Mass/Vol] 2.8 ug/mL Normal <3.1 [facility] Comment on above: Order Comment: Speccipriano pichardo Type: BLOOD SPECIMENOrdering Facility: [facility] Address: [address] [place] [address] Result Comment: Beta -2 Microglobulin test is performed using the [employer] immunoturbidimetric method. Results obtained with different methods or kits cannot be used interchangeably. Performed By: #### 1 952-1, 2885-2 ####[facility] LABCLIA [id number] [place] [address] [place] CBC W Auto Differential pane l (Bld)on 09-26-2024 Basophils (Bld) [#/Vol] 0.05 10*3/uL Normal <0.11 [facility] Comment on above: Order Comment: Mila pichardo Type: BLOOD SPECIMENOrdering Facility: [facility] Address: [address] [place] [address] Performed By: #### 5 7021-8 ####[facility] H[facility]PITALMarcio [id number] [place] [address] [place] Basophils/100 WBC (Bld) 0.5 % Normal [facility] Comment on above: Order Comment: Citlalyi marino Type: BLOOD SPECIMENOrdering Facility: [facility] Address: [address] [place] [address] Performed By: #### 5 7021-8 ####[facility] YANDELEATONNCLIA [id number] [place] [address] [place] Differential cell count method Nom (Bld) Auto Normal [facility] Comment on above: Order Comment: Speci men Type: BLOOD SPECIMENOrdering Facility: [facility] Address: [address] [place] [address] Performed By: #### 5 7021-8 ####[facility] [id number] [place] [address] [place] Eosinophils (Bld) [#/Vol] 0.08 10*3/uL Normal <0.46 [facility] Comment on above: Order Comment: Speci men Type: BLOOD SPECIMENOrdering Facility: [facility] Address: [address] [place] [address] Performed By: #### 5 7021-8 ####[facility] [id number] [place] [address] [place] Eosinophils/100 WBC (Bld) 0.9 % Normal [facility] Comment on above: Order Comment: Speci men Type: BLOOD SPECIMENOrdering Facility: [facility] Address: [address] [place] [address] Performed By: #### 5 7021-8 ####[facility]IT[facility] [id number] [place] [address] [place] Erythrocyte distribution width (RBC) [Ratio] 24.3 % High 11.5-15.0 [facility] Comment on above: Order Comment: Speci men Type: BLOOD SPECIMENOrdering Facility: [facility] Address: [address] [place] [address] Performed By: #### 5 7021-8 ####[facility] [id number] [place] [address] [place] Hematocrit (Bld) [Volume fraction] 37.5 % Low 39.0-51.0 [facility] Comment on above: Order Comment: Speci men Type: BLOOD SPECIMENOrdering Facility: [facility] Address: [address] [place] [address] Performed By: #### 5 7021-8 ####[facility] [id number] [place] [address] [place] Hemoglobin (Bld) [Mass/Vol] 10.7 g/dL Low 13.0-17.0 [facility] Comment on above: Order Comment: Speci men Type: BLOOD SPECIMENOrdering Facility: [facility] Address: [address] [place] [address] Performed By: #### 5 7021-8 ####[facility] [id number] [place] [address] [place] Immature granulocytes (Bld) [#/Vol] 10*3/uL Normal <0.10 [facility] Comment on above: Order Comment: Speci men Type: BLOOD SPECIMENOrdering Facility: [facility] Address: [address] [place] [address] Performed By: #### 5 7021-8 ####[facility] HOSPITALSUMI [id number] [place] [address] [place] Immature granulocytes/100 WBC (Bld) 0.2 % Normal [facility] Comment on above: Order Comment: Speci men Type: BLOOD SPECIMENOrdering Facility: [facility] Address: [address] [place] [address] Performed By: #### 5 7021-8 ####[facility] [id number] [place] [address] [place] Lymphocytes (Bld) [#/Vol] 0.83 10*3/uL Low 1.00-4.0 0 [facility] Comment on above: Order Comment: Speci men Type: BLOOD SPECIMENOrdering Facility: [facility] Address: [address] [place] [address] Performed By: #### 5 7021-8 ####[facility] [id number] [place] [address] [place] Lymphocytes/100 WBC (Bld) 9.1 % Normal [facility] Comment on above: Order Comment: Speci men Type: BLOOD SPECIMENOrdering Facility: [facility] Address: [address] [place] [address] Performed By: #### 5 7021-8 ####[facility] [id number] [place] [address] [place] MCH (RBC) [Entitic mass] 22.3 pg Low 26.0-34.0 [facility] Comment on above: Order Comment: Speci men Type: BLOOD SPECIMENOrdering Facility: [facility] Address: [address] [place] [address] Performed By: #### 5 7021-8 ####[facility] [id number] [place] [address] [place] MCHC (RBC) [Mass/Vol] 28.5 g/dL Low 30.5-36.0 [facility] Comment on above: Order Comment: Speci men Type: BLOOD SPECIMENOrdering Facility: [facility] Address: [address] [place] [address] Performed By: #### 5 7021-8 ####[facility] [id number] [place] [address] [place] MCV (RBC) [Entitic vol] 78.3 fL Low 80.0-100.0 [facility] Comment on above: Order Comment: Speci men Type: BLOOD SPECIMENOrdering Facility: [facility] Address: [address] [place] [address] Performed By: #### 5 7021-8 ####[facility] MILLWNCLIA [id number] [place] [address] [place] Monocytes (Bld) [#/Vol] 0.92 10*3/uL High <0.87 [facility] Comment on above: Order Comment: Speci men Type: BLOOD SPECIMENOrdering Facility: [facility] Address: [address] [place] [address] Performed By: #### 5 7021-8 ####[facility] BEACHWNCLIA [id number] [place] [address] [place] Monocytes/100 WBC (Bld) 10.1 % Normal [facility] Comment on above: Order Comment: Speci men Type: BLOOD SPECIMENOrdering Facility: [facility] Address: [address] [place] [address] Performed By: #### 5 7021-8 ####[facility]IAL[facility]CL[facility] [id number] [place] [address] [place] Neutrophils (Bld) [#/Vol] 7.22 10*3/uL Normal 1.45-7.5 0 [facility] Comment on above: Order Comment: Speci men Type: BLOOD SPECIMENOrdering Facility: [facility] Address: [address] [place] [address] Performed By: #### 5 7021-8 ####[facility] MILLWNCLIA [id number] [place] [address] [place] Neutrophils/100 WBC (Bld) 79.2 % Normal [facility] Comment on above: Order Comment: Speci men Type: BLOOD SPECIMENOrdering Facility: [facility] Address: [address] [place] [address] Performed By: #### 5 7021-8 ####[facility] MILLST. VINCENT JENNINGS HOSPITALLIA [id number] [place] [address] [place] Nucleated RBC (Bld) [#/Vol] 10*3/uL Normal <0.01 [facility] Comment on above: Order Comment: Speci men Type: BLOOD SPECIMENOrdering Facility: [facility] Address: [address] [place] [address] Performed By: #### 5 7021-8 ####[facility] YANDELEATONELSI [id number] [place] [address] [place] Nucleated RBC/100 WBC (Bld) [Ratio] 0.0 /100 WBC Normal [facility] Comment on above: Order Comment: Speci men Type: BLOOD SPECIMENOrdering Facility: [facility] Address: [address] [place] [address] Performed By: #### 5 7021-8 ####[facility]IALNCFARAZ [id number] [place] [address] [place] Platelet mean volume (Bld) [Entitic vol] 9.9 fL Normal 9.0-12.7 [facility] Comment on above: Order Comment: Speci men Type: BLOOD SPECIMENOrdering Facility: [facility] Address: [address] [place] [address] Performed By: #### 5 7021-8 ####[facility] MEMORIALMARCEMarcio [id number] [place] [address] [place] Platelets (Bld) [#/Vol] 406 10*3/uL High 150-400 [facility] Comment on above: Order Comment: Speci men Type: BLOOD SPECIMENOrdering Facility: [facility] Address: [address] [place] [address] Performed By: #### 5 7021-8 ####[facility]IALNCLIA [id number] [place] [address] [place] RBC (Bld) [#/Vol] 4.79 10*6/uL Normal 4.20-6.00 [facility] Comment on above: Order Comment: Speci men Type: BLOOD SPECIMENOrdering Facility: [facility] Address: [address] [place] [address] Performed By: #### 5 7021-8 ####[facility] MILLVIRGINIAWNCLIA [id number] [place] [address] [place] WBC (Bld) [#/Vol] 9.12 10*3/uL Normal 3.70-11.00 [facility] Comment on above: Order Comment: Speci men Type: BLOOD SPECIMENOrdering Facility: [facility] Address: [address] [place] [address] Performed By: #### 5 7021-8 ####[facility] MEMORIALMARCEA [id number] [place] [address] [place] CNOVSPon 09-26-2024 CNOVSP Normal [facility] CNPNon 09-26-2024 CNPN Normal [facility] Comprehensive metabolic 2000 panelon 09-26-2024 Albumin [Mass/Vol] 4.0 g/dL Normal 3.9-4.9 [facility] Comment on above: Order Comment: Speci men Type: BLOOD SPECIMENOrdering Facility: [facility] Address: [address] [place] [address] Performed By: #### 2 532-0, 74111-6 ####[facility]IALMARCEA [id number] [place] [address] [place] ALP [Catalytic activity/Vol] 145 U/L High 38-113 [facility] Comment on above: Order Comment: Speci men Type: BLOOD SPECIMENOrdering Facility: [facility] Address: [address] [place] [address] Performed By: #### 2 532-0, 89653-3 ####[facility]STONNCF[facility] [id number] [place] [address] [place] ALT [Catalytic activity/Vol] 15 U/L Normal 10-54 [facility] Comment on above: Order Comment: Speci men Type: BLOOD SPECIMENOrdering Facility: [facility] Address: [address] [place] [address] Performed By: #### 2 532-0, 93213-0 ####[facility] MILLTOWNCLIA [id number] [place] [address] [place] Anion gap [Moles/Vol] 12 mmol/L Normal 8-15 [facility] Comment on above: Order Comment: Speci men Type: BLOOD SPECIMENOrdering Facility: [facility] Address: [address] [place] [address] Performed By: #### 2 532-0, 02941-2 ####[facility] MILLWNCLIA [id number] [place] [address] [place] AST [Catalytic activity/Vol] 19 U/L Normal 14-40 [facility] Comment on above: Order Comment: Speci men Type: BLOOD SPECIMENOrdering Facility: [facility] Address: [address] [place] [address] Performed By: #### 2 532-0, 33983-5 ####[facility]IALNCLIA [id number] [place] [address] [place] Bilirubin [Mass/Vol] 0.7 mg/dL Normal 0.2-1.3 [facility] Comment on above: Order Comment: Speci men Type: BLOOD SPECIMENOrdering Facility: [facility] Address: [address] [place] [address] Performed By: #### 2 532-0, 91977-6 ####[facility] MILLTOWNCLIA [id number] [place] [address] [place] Calcium [Mass/Vol] 9.2 mg/dL Normal 8.5-10.2 [facility] Comment on above: Order Comment: Speci men Type: BLOOD SPECIMENOrdering Facility: [facility] Address: [address] [place] [address] Performed By: #### 2 532-0, 63863-1 ####[facility] YANDELJaylenNCFARAZ [id number] [place] [address] [place] Chloride [Moles/Vol] 99 mmol/L Normal 98-107 [facility] Comment on above: Order Comment: Speci men Type: BLOOD SPECIMENOrdering Facility: [facility] Address: [address] [place] [address] Performed By: #### 2 532-0, 72142-3 ####[facility] MEM[facility]IALNCFARAZ [id number] [place] [address] [place] CO2 [Moles/Vol] 26 mmol/L Normal 22-30 [facility] Comment on above: Order Comment: Speci men Type: BLOOD SPECIMENOrdering Facility: [facility] Address: [address] [place] [address] Performed By: #### 2 532-0, 61218-1 ####[facility] MEMORIALNCSUMIA [id number] [place] [address] [place] Creatinine [Mass/Vol] 0.83 mg/dL Normal 0.73-1.22 [facility] Comment on above: Order Comment: Speci men Type: BLOOD SPECIMENOrdering Facility: [facility] Address: [address] [place] [address] Performed By: #### 2 532-0, 59014-5 ####[facility] MEMORIALNCLIA [id number] [place] [address] [place] Creatinine and Glomerular filtration rate.predicted panel (S/P/Bld) 93 mL/min/1.73m??? Normal >=60 [facility] Comment on above: Order Comment: Speci men Type: BLOOD SPECIMENOrdering Facility: [facility] Address: [address] [place] [address] Result Comment: Kimberley mated Glomerular Filtration Rate (eGFR) is calculated using the 2020 CKD-EPI creatinine equation. This equation utilizes serum creatinine, sex, and age as parameters. The creatinine assay has traceable calibration to isotope dilution-mass spectrometry. Refer to KDIGO guidelines for clinical interpretation. In patients with unstable renal function, e.g. those with acute kidney injury, the eGFR may not accurately reflect actual GFR. Performed By: #### 2 532-0, 28496-2 ####[facility] [id number] [place] [address] [place] Glucose [Mass/Vol] 181 mg/dL High 74-99 [facility] Comment on above: Order Comment: Speccipriano men Type: BLOOD SPECIMENOrdering Facility: [facility] Address: [address] [place] [address] Result Comment: The [place] [employer] Association (ADA) provides guidance for cutoff values for fasting glucose and random glucose. The ADA defines fasting as no caloric intake for at least 8 hours. Fasting plasma glucose results between 100 to 125 mg/dL indicate increased risk for diabetes (prediabetes).Fasting plasma glucose results greater than or equal to 126 mg/dL meet the criteria for diagnosis of diabetes. In the absence of unequivocal hyperglycemia, results should be confirmed by repeat testing. In a patient with classic symptoms of hyperglycemia or hyperglycemic crisis, random plasma glucose results greater than or equal to 200 mg/dL meet the criteria for diagnosis of diabetes.Reference: Standards of Medical Care in Diabetes 2016, [place] [employer]. Diabetes Care. 2016.39(Suppl 1). Performed By: #### 2 532-0, 75038-2 ####[facility] [id number] [place] [address] [place] Potassium [Moles/Vol] 4.0 mmol/L Normal 3.7-5.1 [facility] Comment on above: Order Comment: Speccipriano men Type: BLOOD SPECIMENOrdering Facility: [facility] Address: [address] [place] [address] Performed By: #### 2 532-0, 94704-3 ####[facility] MILLTOWNCLIA [id number] [place] [address] [place] Protein [Mass/Vol] 6.3 g/dL Normal 6.3-8.0 [facility] Comment on above: Order Comment: Speci men Type: BLOOD SPECIMENOrdering Facility: [facility] Address: [address] [place] [address] Performed By: #### 2 532-0, 51090-3 ####[facility] MEMORIALNCLIA [id number] [place] [address] [place] Sodium [Moles/Vol] 137 mmol/L Normal 136-144 [facility] Comment on above: Order Comment: Speci men Type: BLOOD SPECIMENOrdering Facility: [facility] Address: [address] [place] [address] Performed By: #### 2 532-0, 01621-7 ####[facility]IALNCLIA [id number] [place] [address] [place] Urea nitrogen [Mass/Vol] 18 mg/dL Normal 9-24 [facility] Comment on above: Order Comment: Speci men Type: BLOOD SPECIMENOrdering Facility: [facility] Address: [address] [place] [address] Performed By: #### 2 532-0, 25253-2 ####[facility] MEMORIALNCLIA [id number] [place] [address] [place] IMMUNOFIXATION SCREEN, SERUM on 09-26-2024 MPA RESULT No M protein is identified. Normal No M protein is identified. [facility] Comment on above: Order Comment: Speci men Type: BLOOD SPECIMENOrdering Facility: [facility] Address: [address] [place] [address] Performed By: #### I [facility] ####[facility] LABCLIA [id number] [place] STAFF REVIEW ([facility]) Reviewed by Venkata Schrader MD, Ph.D ([id number]) Normal [facility] Comment on above: Order Comment: Speci men Type: BLOOD SPECIMENOrdering Facility: [facility] Address: [address] [place] [address] Performed By: #### I FES ####[facility] LABCLIA [id number] [place] [address] [place] IMMUNOGLOBULINS,IGG,IGA,IGMo n 09-26-2024 IgA [Mass/Vol] 68 mg/dL Low 70-400 [facility] Comment on above: Order Comment: Speci men Type: BLOOD SPECIMENOrdering Facility: [facility] Address: [address] [place] [address] Performed By: #### S ERIMM ####[facility] LABIA [id number] [address] [place] IgG [Mass/Vol] 582 mg/dL Low 700-1600 [facility] Comment on above: Order Comment: Speci men Type: BLOOD SPECIMENOrdering Facility: [facility] Address: [address] [place] [address] Performed By: #### S ERIMM ####[facility] LABCLIA [id number] [address] [place] IgM [Mass/Vol] 20 mg/dL Low 40-230 [facility] Comment on above: Order Comment: Speci men Type: BLOOD SPECIMENOrdering Facility: [facility] Address: [address] [place] [address] Performed By: #### S ERIMM ####[facility] LABCLIA [id number] [place] [address] [place] KAPPA/RAMIREZ,FREE,SERon 2024 Immunoglobulin light chains.kappa.free (S) [Mass/Vol] 9.7 mg/L Normal 3.3-19.4 [facility] Comment on above: Order Comment: Speci men Type: BLOOD SPECIMENOrdering Facility: [facility] Address: [address] [place] [address] Result Comment: Rare ly, increased serum free light chains levels may not be detected or accurately quantified due to prozone phenomenon or in high viscosity samples using this immunoturbidimetric assay. Correlation with other laboratory results and clinical findings is recommended.The [place] Free Light Chain was performed using the Binding Site Optilite immunoturbidimetric method. Result obtained with different assay methods or kits cannot be used interchangeably. Performed By: #### K LFRS ####[facility] LABCLIA [id number] [place] [address] [place] Immunoglobulin light chains.kappa/Immunoglobuli n light chains.lambda (S) [Mass ratio] 1.33 Normal 0.26-1.65 [facility] Comment on above: Order Comment: Speci men Type: BLOOD SPECIMENOrdering Facility: [facility] Address: [address] [place] [address] Performed By: #### K LFRS ####[facility] LABCLIA [id number] [place] [address] [place] Immunoglobulin light chains.lambda.free [Mass/Vol] 7.3 mg/L Normal 5.7-26.3 [facility] Comment on above: Order Comment: Speci men Type: BLOOD SPECIMENOrdering Facility: [facility] Address: [address] [place] [address] Result Comment: Rare ly, increased serum free light chains levels may not be detected or accurately quantified due to prozone phenomenon or in high viscosity samples using this immunoturbidimetric assay. Correlation with other laboratory results and clinical findings is recommended.The Lambda Free Light Chain was performed using the Binding Site Optilite immunoturbidimetric method. Result obtained with different assay methods or kits cannot be used interchangeably. Performed By: #### K LFRS ####[facility] LABCLIA [id number] [place] [address] [place] LDH SerPl-cCncon 09-26-2024 LDH [Catalytic activity/Vol] 202 U/L Normal 135-225 [facility] Comment on above: Order Comment: Speci men Type: BLOOD SPECIMENOrdering Facility: [facility] Address: [address] [place] [address] Performed By: #### 2 532-0, 47175-0 ####[facility] [id number] [place] [address] [place] MONOCLONAL PROT UR W/INTERPo n 09-26-2024 STAFF REVIEW ([facility]) Reviewed by Venkata Schrader MD, Ph.D ([id number]) Normal [facility] Comment on above: Order Comment: Speci men Type: URINE SPECIMENOrdering Facility: [facility] Address: [address] [place] [address] Performed By: #### U RMPA ####[facility] LABIA [id number] [place] [address] [place] UMPA RESULT No M protein is identified. Normal No M protein is identified. [facility] Comment on above: Order Comment: Speci men Type: URINE SPECIMENOrdering Facility: [facility] Address: [address] [place] [address] Performed By: #### U RMPA ####[facility] LABCLIA [id number] [place] [address] [place] PROTEIN ELECTROPHORESIS SERU M (P)on 09-26-2024 Albumin [Mass/Vol] 3.75 g/dL Normal 3.43-5.41 [facility] Comment on above: Order Comment: Speci men Type: BLOOD SPECIMENOrdering Facility: [facility] Address: [address] [place] [address] Performed By: #### L [id number] ####[facility] LABCLIA [id number] [place] [address] [place] Alpha 1 globulin Elph [Mass/Vol] 0.36 g/dL Normal 0.18-0.43 [facility] Comment on above: Order Comment: Speci men Type: BLOOD SPECIMENOrdering Facility: [facility] Address: [address] [place] [address] Performed By: #### L [id number] ####[facility] LABIA [id number] [place] [address] [place] Alpha 2 globulin Elph [Mass/Vol] 0.78 g/dL Normal 0.42-0.98 [facility] Comment on above: Order Comment: Speci men Type: BLOOD SPECIMENOrdering Facility: [facility] Address: [address] [place] [address] Performed By: #### L [id number] ####[facility] LABIA [id number] [place] Beta globulin Elph [Mass/Vol] 0.67 g/dL Normal 0.61-1.17 [facility] Comment on above: Order Comment: Speci men Type: BLOOD SPECIMENOrdering Facility: [facility] Address: [address] [place] [address] Performed By: #### L [id number] ####[facility] LABIA [id number] [place] [address] [place] Gamma globulin Elph [Mass/Vol] 0.44 g/dL Low 0.53-1.51 [facility] Comment on above: Order Comment: Speci men Type: BLOOD SPECIMENOrdering Facility: [facility] Address: [address] [place] [address] Performed By: #### L [id number] ####[facility] LABIA [id number] [place] [address] [place] INTERPRETATION COMMENT FOR PROTEIN ELECTROPHORESIS Hypogammaglobulinemia is present, which can be seen in the setting of monoclonal gammopathy. If clinically indicated, monoclonal protein analysis and serum free light chain analysis are suggested to evaluate further for monoclonal gammopathy. Normal [facility] Comment on above: Order Comment: Speci men Type: BLOOD SPECIMENOrdering Facility: [facility] Address: [address] [place] [address] Performed By: #### L [id number] ####[facility] LABIA [id number] [place] [id number] [place] M-PROTEIN LOCATION Normal [facility] Comment on above: Order Comment: Speci men Type: BLOOD SPECIMENOrdering Facility: [facility] Address: [address] [place] [address] Result Comment: Not Applicable. Performed By: #### L [id number] ####[facility] LABIA [id number] [place] [address] [place] Protein Fractions [Interp] No definitive M protein is identified on protein electrophoresis. Normal No definitive M protein is identified on protein electrophor esis. [facility] Comment on above: Order Comment: Speci men Type: BLOOD SPECIMENOrdering Facility: [facility] Address: [address] [place] [address] Performed By: #### L [id number] ####[facility] LABIA [id number] [place] [address] [place] Protein.monoclonal Elph [Mass/Vol] 0.00 g/dL Normal <=0.00 [facility] Comment on above: Order Comment: Speci men Type: BLOOD SPECIMENOrdering Facility: [facility] Address: [address] [place] [address] Performed By: #### L [id number] ####[facility] LABIA [id number] [place] [id number] [place] SPE STAFF REVIEW Reviewed by Venkata Schrader MD, Ph.D ([id number]) Normal [facility] Comment on above: Order Comment: Speci men Type: BLOOD SPECIMENOrdering Facility: [facility] Address: [address] [place] [address] Performed By: #### L [id number] ####[facility] LABIA [id number] [place] [address] [place] Prot SerPl-mCncon 09-26-2024 Protein [Mass/Vol] 6.0 g/dL Low 6.3-8.0 [facility] Comment on above: Order Comment: Speci men Type: BLOOD SPECIMENOrdering Facility: [facility] Address: [address] [place] [address] Performed By: #### 1 952-1, 2885-2 ####[facility] [facility] [id number] [place] [address] [place] Prot Ur-mCncon 09-26-2024 Protein (U) [Mass/Vol] 12 mg/dL Normal 0-[address] [facility] Comment on above: Order Comment: Speci men Type: URINE SPECIMENOrdering Facility: [facility] Address: [address] [place] [address] Performed By: #### 2 888-6 ####[facility] [id number] [place] [address] [place] URINE PROTEIN ELECTROPHORESI S RANDOM (P)on 09-26-2024 Albumin Elph (U) [Mass fraction] 54.73 % Normal [facility] Comment on above: Order Comment: Speci men Type: URINE SPECIMENOrdering Facility: [facility] Address: [address] [place] [address] Performed By: #### L [id number] ####[facility] LABIA [id number] [place] [address] [place] Alpha 1 globulin Elph (U) [Mass fraction] 6.59 % Normal [facility] Comment on above: Order Comment: Speci men Type: URINE SPECIMENOrdering Facility: [facility] Address: [address] [place] [address] Performed By: #### L [id number] ####[facility] LABCLIA [id number] [address] [place] [address] [place] Alpha 2 globulin Elph (U) [Mass fraction] 15.87 % Normal [facility] Comment on above: Order Comment: Speci men Type: URINE SPECIMENOrdering Facility: [facility] Address: [address] [place] [address] Performed By: #### L [id number] ####[facility] LABCLIA [id number] [address] [place] [address] [place] Beta globulin Elph (U) [Mass fraction] 17.30 % Normal [facility] Comment on above: Order Comment: Speci men Type: URINE SPECIMENOrdering Facility: [facility] Address: [address] [place] [address] Performed By: #### L [id number] ####[facility] LABIA [id number] [address] [place] Gamma globulin Elph (U) [Mass fraction] 5.51 % Normal [facility] Comment on above: Order Comment: Speci men Type: URINE SPECIMENOrdering Facility: [facility] Address: [address] [place] [address] Performed By: #### L [id number] ####[facility] LABCLIA [id number] [address], [facility]95 [place] Protein Fractions Elph Shalom (U) [Interp] No definitive M protein is identified on protein electrophoresis. Normal No definitive M protein is identified on protein electrophor esis. [facility] Comment on above: Order Comment: Speci men Type: URINE SPECIMENOrdering Facility: [facility] Address: [address] [place] [address] Performed By: #### L [id number] ####[facility] LABCLIA [id number] [address], [facility]95 [place] STAFF REVIEW (URINE ELECTRO) Reviewed by Venkata Schrader MD, Ph.D ([id number]) Normal [facility] Comment on above: Order Comment: Speci men Type: URINE SPECIMENOrdering Facility: [facility] Address: [address] [place] [address] Performed By: #### L [id number] ####[facility] LABCLIA [id number] [address] [id number], [place] [address] [place] Cardiology Visit Reporton Cardiology Visit Report Normal [facility] CNPNon 09-19-2024 CNPN Normal [facility] Anion gap in Serum or Plasma Ordered By: Zeus Swanson on 09-18-2024 Anion gap [Moles/Vol] 13 mmol/L 09-06 [facility] BUN/creatinine ratioOrdered By: Zeus Swanson on 09-18-2024 Urea nitrogen/Creatinine [Mass ratio] 16.1 mg/mg 02-11 [facility] Basic Metabolic Profile (BMP )on 09-18-2024 BUN/CRE 16.1 RATIO Normal 02-11 [facility] Comment on above: Performed By: #### L 500.2500 ####[facility] [address] [place], [address] Calcium [Mass/Vol] 9.1 mg/dL Normal 7.6-11.0 [facility] Comment on above: Performed By: #### L 500.2500 ####[facility] [address] [place], [address] Chloride [Moles/Vol] 103 mmol/L Normal 98-108 [facility] Comment on above: Performed By: #### L 500.2500 ####[facility] [address] [place], [address] CO2 [Moles/Vol] 26.3 mmol/L Normal 21.0-32.0 [facility] Comment on above: Performed By: #### L 500.2500 ####[facility] [address] [place], [address] Creatinine [Mass/Vol] 0.91 mg/dL Normal 0.70-1.20 [facility] Comment on above: Performed By: #### L 500.2500 ####[facility] [address] [place], [address] GAP 13 Normal 5-15 [facility] Comment on above: Performed By: #### L 500.2500 ####[facility] [address] [place], [address] GFR/1.73 sq M.predicted among non-blacks MDRD (S/P/Bld) [Vol rate/Area] 90 mL/min/{1.73_m2} Normal >60 [facility] Comment on above: Result Comment: mL/m in/1.73m2 CKD-EPI Creatinine Equation (2020) Performed By: #### L 500.2500 ####[facility] [address] [place], [address] Glucose [Mass/Vol] 169 mg/dL High 70-99 [facility] Comment on above: Performed By: #### L 500.2500 ####[facility] [address] [place], [address] Potassium [Moles/Vol] 3.9 mmol/L Normal 3.3-5.1 [facility] Comment on above: Performed By: #### L 500.2500 ####[facility] [address] [place], [address] Sodium [Moles/Vol] 142 mmol/L Normal 133-145 [facility] Comment on above: Performed By: #### L 500.2500 ####[facility] [address] [place], [address] Urea nitrogen [Mass/Vol] 15 mg/dL Normal 4-19 [facility] Comment on above: Performed By: #### L 500.2500 ####[facility] [address] [place], [address] Carbon dioxide, total [Moles /volume] in Central venous bloodOrdered By: Zeus Swanson on 09-18-2024 CO2 [Moles/Vol] 26.3 mmol/L 21.0-32.0 [facility] Chloride assayOrdered By: Flakita Swanson on 09-18-2024 Chloride [Moles/Vol] 103 mmol/L 98-108 [facility] Glomerular filtration rate ( GFR) estimation/1.73 sq m using serum, plasma, or whole bOrdered By: Zeus Swanson on 09-18-2024 GFR/1.73 sq M.predicted among non-blacks MDRD (S/P/Bld) [Vol rate/Area] 90 mL/min/{1.73_m2} >60 [facility] Comment on above: mL/min/1.73m2 CKD-EP I Creatinine Equation (2020) Potassium measurement (mass/ volume)Ordered By: Zeus Swanson on 09-18-2024 Potassium (Unsp spec) [Mass/Vol] 3.9 mmol/L 3.3-5.1 [facility] Serum creatinine measurement (mass/volume)Ordered By: Zeus Swanson on 09-18-2024 Creatinine [Mass/Vol] 0.91 mg/dL 0.70-1.20 [facility] Serum glucose measurement (m ass/volume)Ordered By: Zeus Swanson on 09-18-2024 Glucose [Mass/Vol] 169 mg/dL High 70-99 [facility] Serum or plasma calcium yvonne urement (mass/volume)Ordered By: Zeus Swanson on 09-18-2024 Calcium [Mass/Vol] 9.1 mg/dL 7.6-11.0 [facility] Serum or plasma urea nitroge n measurement (mass/volume)Ordered By: Zeus Swanson on 09-18-2024 Urea nitrogen [Mass/Vol] 15 mg/dL 4-19 [facility] Sodium levelOrdered By: Julien Swanson on 09-18-2024 Sodium [Moles/Vol] 142 mmol/L 133-145 [facility] OCCULT BLD EXAM-DIAGon 09-17 OCCULT BLD EXAM-DIAG Positive [facility] Comment on above: Performed By: #### O BDX ####[facility] LABCLIA [id number] [address] [address] [place] OCCULT BLD EXAM-DIAG Negative Normal [facility] Comment on above: Performed By: #### O BDX ####[facility] LABCLIA [id number] [address] [address] [place] CNPNon 09-10-2024 CNPN Normal [facility] Anion gap in Serum or Plasma Ordered By: Tessy Trinh on 09-04-2024 Anion gap [Moles/Vol] 10 mmol/L - [facility] BUN/creatinine ratioOrdered By: Tessy Trinh on 09-04-2024 Urea nitrogen/Creatinine [Mass ratio] 21.6 mg/mg High - [facility] Basic Metabolic Profile (BMP )on 09-04-2024 BUN/CRE 21.6 RATIO High 02-11 [facility] Comment on above: Performed By: #### L 503.7505, L500.2500 ####[facility] [address] [place], [address] Calcium [Mass/Vol] 9.8 mg/dL Normal 7.6-11.0 [facility] Comment on above: Performed By: #### L 503.7505, L500.2500 ####[facility] [address] [place], [address] Chloride [Moles/Vol] 101 mmol/L Normal 98-108 [facility] Comment on above: Performed By: #### L 503.7505, L500.2500 ####[facility] [address] [place], [address] CO2 [Moles/Vol] 28.7 mmol/L Normal 21.0-32.0 [facility] Comment on above: Performed By: #### L 503.7505, L500.2500 ####[facility] [address] [place], [address] Creatinine [Mass/Vol] 0.82 mg/dL Normal 0.70-1.20 [facility] Comment on above: Performed By: #### L 503.7505, L500.2500 ####[facility] [address] [place], [address] GAP 10 Normal 5-15 [facility] Comment on above: Performed By: #### L 503.7505, L500.2500 ####[facility] [address] [place], [address] GFR/1.73 sq M.predicted among non-blacks MDRD (S/P/Bld) [Vol rate/Area] 93 mL/min/{1.73_m2} Normal >60 [facility] Comment on above: Result Comment: mL/m in/1.73m2 CKD-EPI Creatinine Equation (2020) Performed By: #### L 503.7505, L500.2500 ####[facility] [address] [place], [address] Glucose [Mass/Vol] 119 mg/dL High 70-99 [facility] Comment on above: Performed By: #### L 503.7505, L500.2500 ####[facility] [address] [place], [address] Potassium [Moles/Vol] 4.3 mmol/L Normal 3.3-5.1 [facility] Comment on above: Performed By: #### L 503.7505, L500.2500 ####[facility] [address] [place], [address] Sodium [Moles/Vol] 140 mmol/L Normal 133-145 [facility] Comment on above: Performed By: #### L 503.7505, L500.2500 ####[facility] [address] [place], [address] Urea nitrogen [Mass/Vol] 18 mg/dL Normal 4-19 [facility] Comment on above: Performed By: #### L 503.7505, L500.2500 ####[facility] [address] [place], [place], [address] Carbon dioxide, total [Moles /volume] in Central venous bloodOrdered By: Tessy Trinh on 09-04-2024 CO2 [Moles/Vol] 28.7 mmol/L 21.0-32.0 [facility] Chest PA and Lateralon 09-04 Chest PA and Lateral Normal [facility] Chloride assayOrdered By: Arben Trinh on 09-04-2024 Chloride [Moles/Vol] 101 mmol/L 98-108 [facility] Glomerular filtration rate ( GFR) estimation/1.73 sq m using serum, plasma, or whole bOrdered By: Tessy Trinh on 09-04-2024 GFR/1.73 sq M.predicted among non-blacks MDRD (S/P/Bld) [Vol rate/Area] 93 mL/min/{1.73_m2} >60 [facility] Comment on above: mL/min/1.73m2 CKD-EP I Creatinine Equation (2020) L503.7505on 09-04-2024 Natriuretic peptide B (Bld) [Mass/Vol] 2705 pg/mL High <=900 [facility] Comment on above: Result Comment: Hear t Failure Unlikely: < 300 pg/mLHeart Failure Likely< 50 Years: > 450 pg/mL50-75 Years: > 900 pg/mL>75 Years: > 1800 pg/mL Performed By: #### L 503.7505, L500.2500 ####[facility] [address] [place], [place], [address] Natriuretic peptide.B prohor lor N-Terminal [Mass/volume] in Serum or PlasmaOrdered By: Tessy Trinh on 09-04-2024 Natriuretic peptide.B prohormone N-Terminal [Mass/Vol] 2705 pg/mL High <900 [facility] Comment on above: Heart Failure Unlike ly: < 300 pg/mLHeart Failure Likely< 50 Years: > 450 pg/mL50-75 Years: > 900 pg/mL>75 Years: > 1800 pg/mL Potassium measurement (mass/ volume)Ordered By: Tessy Trinh on 09-04-2024 Potassium (Unsp spec) [Mass/Vol] 4.3 mmol/L 3.3-5.1 [facility] Pulmonary Visit Reporton Pulmonary Visit Report Normal [facility] Serum creatinine measurement (mass/volume)Ordered By: Tessy Trinh on 09-04-2024 Creatinine [Mass/Vol] 0.82 mg/dL 0.70-1.20 [facility] Serum glucose measurement (m ass/volume)Ordered By: Tessy Trinh on 09-04-2024 Glucose [Mass/Vol] 119 mg/dL High 70-99 [facility] Serum or plasma calcium yvonne urement (mass/volume)Ordered By: Tessy Trinh on 09-04-2024 Calcium [Mass/Vol] 9.8 mg/dL 7.6-11.0 [facility] Serum or plasma urea nitroge n measurement (mass/volume)Ordered By: Tessy Trinh on 09-04-2024 Urea nitrogen [Mass/Vol] 18 mg/dL 4-19 [facility] Sodium levelOrdered By: Belinda Trinh on 09-04-2024 Sodium [Moles/Vol] 140 mmol/L 133-145 [facility] CBC W Auto Differential pane l (Bld)on 08-29-2024 Basophils (Bld) [#/Vol] 0.06 10*3/uL Normal <0.11 [facility] Comment on above: Order Comment: Speci men Type: BLOOD SPECIMENOrdering Facility: [facility] Address: [address] [place] [address] Performed By: #### 5 7021-8 ####[facility] [id number] [place] [address] [place] Basophils/100 WBC (Bld) 0.4 % [facility] Comment on above: Order Comment: Speci men Type: BLOOD SPECIMENOrdering Facility: [facility] Address: [address] [place] [address] Performed By: #### 5 7021-8 ####[facility] [id number] [place] [address] [place] Differential cell count method Nom (Bld) Auto Normal [facility] Comment on above: Order Comment: Speci men Type: BLOOD SPECIMENOrdering Facility: [facility] Address: [address] [place] [address] Performed By: #### 5 7021-8 ####[facility] [id number] [place] [address] [place] Eosinophils (Bld) [#/Vol] 0.11 10*3/uL Normal <0.46 [facility] Comment on above: Order Comment: Speci men Type: BLOOD SPECIMENOrdering Facility: [facility] Address: [address] [place] [address] Performed By: #### 5 7021-8 ####[facility] [id number] [place] [address] [place] Eosinophils/100 WBC (Bld) 0.8 % Normal [facility] Comment on above: Order Comment: Speci men Type: BLOOD SPECIMENOrdering Facility: [facility] Address: [address] [place] [address] Performed By: #### 5 7021-8 ####[facility] [id number] [place] [address] [place] Erythrocyte distribution width (RBC) [Ratio] 17.7 % High 11.5-15.0 [facility] Comment on above: Order Comment: Speci men Type: BLOOD SPECIMENOrdering Facility: [facility] Address: [address] [place] [address] Performed By: #### 5 7021-8 ####[facility] [id number] [place] [address] [place] Hematocrit (Bld) [Volume fraction] 34.3 % Low 39.0-51.0 [facility] Comment on above: Order Comment: Speci men Type: BLOOD SPECIMENOrdering Facility: [facility] Address: [address] [place] [address] Performed By: #### 5 7021-8 ####[facility] [id number] [place] [address] [place] Hemoglobin (Bld) [Mass/Vol] 9.9 g/dL Low 13.0-17.0 [facility] Comment on above: Order Comment: Speci men Type: BLOOD SPECIMENOrdering Facility: [facility] Address: [address] [place] [address] Performed By: #### 5 7021-8 ####[facility] [id number] [place] [address] [place] Immature granulocytes (Bld) [#/Vol] 0.06 10*3/uL Normal <0.10 [facility] Comment on above: Order Comment: Speci men Type: BLOOD SPECIMENOrdering Facility: [facility] Address: [address] [place] [address] Performed By: #### 5 7021-8 ####[facility] [id number] [place] [address] [place] Immature granulocytes/100 WBC (Bld) 0.4 % Normal [facility] Comment on above: Order Comment: Speci men Type: BLOOD SPECIMENOrdering Facility: [facility] Address: [address] [place] [address] Performed By: #### 5 7021-8 ####[facility] [id number] [place] [address] [place] Lymphocytes (Bld) [#/Vol] 0.83 10*3/uL Low 1.00-4.0 0 [facility] Comment on above: Order Comment: Speci men Type: BLOOD SPECIMENOrdering Facility: [facility] Address: [address] [place] [address] Performed By: #### 5 7021-8 ####[facility] YANDELSTEWART [id number] [place] [address] [place] Lymphocytes/100 WBC (Bld) 6.0 % Normal [facility] Comment on above: Order Comment: Speci men Type: BLOOD SPECIMENOrdering Facility: [facility] Address: [address] [place] [address] Performed By: #### 5 7021-8 ####[facility]IALNCSUMI [id number] [place] [address] [place] MCH (RBC) [Entitic mass] 21.2 pg Low 26.0-34.0 [facility] Comment on above: Order Comment: Speci men Type: BLOOD SPECIMENOrdering Facility: [facility] Address: [address] [place] [address] Performed By: #### 5 7021-8 ####[facility]CL[facility] [id number] [place] [address] [place] MCHC (RBC) [Mass/Vol] 28.9 g/dL Low 30.5-36.0 [facility] Comment on above: Order Comment: Speci men Type: BLOOD SPECIMENOrdering Facility: [facility] Address: [address] [place] [address] Performed By: #### 5 7021-8 ####[facility]IALNCLI [id number] [place] [address] [place] MCV (RBC) [Entitic vol] 73.3 fL Low 80.0-100.0 [facility] Comment on above: Order Comment: Speci men Type: BLOOD SPECIMENOrdering Facility: [facility] Address: [address] [place] [address] Performed By: #### 5 7021-8 ####[facility] MILLTOWNCLIA [id number] [place] [address] [place] Monocytes (Bld) [#/Vol] 0.77 10*3/uL Normal <0.87 [facility] Comment on above: Order Comment: Speci men Type: BLOOD SPECIMENOrdering Facility: [facility] Address: [address] [place] [address] Performed By: #### 5 7021-8 ####[facility]TONA BEACHWNCLIA [id number] [place] [address] [place] Monocytes/100 WBC (Bld) 5.6 % Normal [facility] Comment on above: Order Comment: Speci men Type: BLOOD SPECIMENOrdering Facility: [facility] Address: [address] [place] [address] Performed By: #### 5 7021-8 ####[facility]CL[facility] [id number] [place] [address] [place] Neutrophils (Bld) [#/Vol] 11.89 10*3/uL High 1.45-7. 50 [facility] Comment on above: Order Comment: Speci men Type: BLOOD SPECIMENOrdering Facility: [facility] Address: [address] [place] [address] Performed By: #### 5 7021-8 ####[facility]CL[facility] [id number] [place] [address] [place] Neutrophils/100 WBC (Bld) 86.8 % Normal [facility] Comment on above: Order Comment: Speci men Type: BLOOD SPECIMENOrdering Facility: [facility] Address: [address] [place] [address] Performed By: #### 5 7021-8 ####[facility]CL[facility] [id number] [place] [address] [place] Nucleated RBC (Bld) [#/Vol] 10*3/uL Normal <0.01 [facility] Comment on above: Order Comment: Speci men Type: BLOOD SPECIMENOrdering Facility: [facility] Address: [address] [place] [address] Performed By: #### 5 7021-8 ####[facility] [id number] [place] [address] [place] Nucleated RBC/100 WBC (Bld) [Ratio] 0.0 /100 WBC Normal [facility] Comment on above: Order Comment: Speci men Type: BLOOD SPECIMENOrdering Facility: [facility] Address: [address] [place] [address] Performed By: #### 5 7021-8 ####[facility] [id number] [place] [address] [place] Platelet mean volume (Bld) [Entitic vol] 10.0 fL Normal 9.0-12.7 [facility] Comment on above: Order Comment: Speci men Type: BLOOD SPECIMENOrdering Facility: [facility] Address: [address] [place] [address] Performed By: #### 5 7021-8 ####[facility] [id number] [place] [address] [place] Platelets (Bld) [#/Vol] 428 10*3/uL High 150-400 [facility] Comment on above: Order Comment: Speci men Type: BLOOD SPECIMENOrdering Facility: [facility] Address: [address] [place] [address] Performed By: #### 5 7021-8 ####[facility]IALNCL[facility] [id number] [place] [address] [place] RBC (Bld) [#/Vol] 4.68 10*6/uL Normal 4.20-6.00 [facility] Comment on above: Order Comment: Speci men Type: BLOOD SPECIMENOrdering Facility: [facility] Address: [address] [place] [address] Performed By: #### 5 7021-8 ####[facility] BEACHWNCLIA [id number] [place] [address] [place] WBC (Bld) [#/Vol] 13.72 10*3/uL High 3.70-11.00 [facility] Comment on above: Order Comment: Speci men Type: BLOOD SPECIMENOrdering Facility: [facility] Address: [address] [place] [address] Performed By: #### 5 7021-8 ####[facility]CL[facility] [id number] [place] [address] [place] CNOVSPon 08-29-2024 CNOVSP Normal [facility] Comprehensive metabolic 2000 panelon 08-29-2024 Albumin [Mass/Vol] 3.8 g/dL Low 3.9-4.9 [facility] Comment on above: Order Comment: Speci men Type: BLOOD SPECIMENOrdering Facility: [facility] Address: [address] [place] [address] Performed By: #### 2 4323-8 ####[facility]IALNCLIA [id number] [place] [address] [place] ALP [Catalytic activity/Vol] 131 U/L High 38-113 [facility] Comment on above: Order Comment: Speci men Type: BLOOD SPECIMENOrdering Facility: [facility] Address: [address] [place] [address] Performed By: #### 2 4323-8 ####[facility]IAL[facility]CL[facility] [id number] [place] [address] [place] ALT [Catalytic activity/Vol] 12 U/L Normal 10-54 [facility] Comment on above: Order Comment: Speci men Type: BLOOD SPECIMENOrdering Facility: [facility] Address: [address] [place] [address] Performed By: #### 2 4323-8 ####[facility] MILLTOWNCLIA [id number] [place] [address] [place] Anion gap [Moles/Vol] 8 mmol/L Normal 8-15 [facility] Comment on above: Order Comment: Speci men Type: BLOOD SPECIMENOrdering Facility: [facility] Address: [address] [place] [address] Performed By: #### 2 4323-8 ####[facility] MILLWNCLIA [id number] [place] [address] [place] AST [Catalytic activity/Vol] 17 U/L Normal 14-40 [facility] Comment on above: Order Comment: Speci men Type: BLOOD SPECIMENOrdering Facility: [facility] Address: [address] [place] [address] Performed By: #### 2 4323-8 ####[facility] MILLWNCLIA [id number] [place] [address] [place] Bilirubin [Mass/Vol] 0.6 mg/dL Normal 0.2-1.3 [facility] Comment on above: Order Comment: Speci men Type: BLOOD SPECIMENOrdering Facility: [facility] Address: [address] [place] [address] Performed By: #### 2 4323-8 ####[facility] MILLTOWNCLIA [id number] [place] [address] [place] Calcium [Mass/Vol] 8.9 mg/dL Normal 8.5-10.2 [facility] Comment on above: Order Comment: Speci men Type: BLOOD SPECIMENOrdering Facility: [facility] Address: [address] [place] [address] Performed By: #### 2 4323-8 ####[facility] [id number] [place] [address] [place] Chloride [Moles/Vol] 102 mmol/L Normal 98-107 [facility] Comment on above: Order Comment: Speci men Type: BLOOD SPECIMENOrdering Facility: [facility] Address: [address] [place] [address] Performed By: #### 2 4323-8 ####[facility]ITALLIA [id number] [place] [address] [place] CO2 [Moles/Vol] 28 mmol/L Normal 22-30 [facility] Comment on above: Order Comment: Speci men Type: BLOOD SPECIMENOrdering Facility: [facility] Address: [address] [place] [address] Performed By: #### 2 4323-8 ####[facility] [id number] [place] [address] [place] Creatinine [Mass/Vol] 0.83 mg/dL Normal 0.73-1.22 [facility] Comment on above: Order Comment: Speci men Type: BLOOD SPECIMENOrdering Facility: [facility] Address: [address] [place] [address] Performed By: #### 2 4323-8 ####[facility]OSPITALLIA [id number] [place] [address] [place] [facility] Creatinine and Glomerular filtration rate.predicted panel (S/P/Bld) 93 mL/min/1.73m??? Normal >=60 [facility] Comment on above: Order Comment: Speci men Type: BLOOD SPECIMENOrdering Facility: [facility] Address: [address] [place] [address] Result Comment: Kimberley mated Glomerular Filtration Rate (eGFR) is calculated using the 2020 CKD-EPI creatinine equation. This equation utilizes serum creatinine, sex, and age as parameters. The creatinine assay has traceable calibration to isotope dilution-mass spectrometry. Refer to KDIGO guidelines for clinical interpretation. In patients with unstable renal function, e.g. those with acute kidney injury, the eGFR may not accurately reflect actual GFR. Performed By: #### 2 4323-8 ####[facility]IALNCLI [id number] [place] [address] [place] Glucose [Mass/Vol] 151 mg/dL High 74-99 [facility] Comment on above: Order Comment: Speci men Type: BLOOD SPECIMENOrdering Facility: [facility] Address: [address] [place] [id number] Result Comment: The [place] [employer] (ADA) provides guidance for cutoff values for fasting glucose and random glucose. The ADA defines fasting as no caloric intake for at least 8 hours. Fasting plasma glucose results between 100 to 125 mg/dL indicate increased risk for diabetes (prediabetes).Fasting plasma glucose results greater than or equal to 126 mg/dL meet the criteria for diagnosis of diabetes. In the absence of unequivocal hyperglycemia, results should be confirmed by repeat testing. In a patient with classic symptoms of hyperglycemia or hyperglycemic crisis, random plasma glucose results greater than or equal to 200 mg/dL meet the criteria for diagnosis of diabetes.Reference: Standards of Medical Care in Diabetes 2016, [place] [employer]. Diabetes Care. 2016.39(Suppl 1). Performed By: #### 2 4323-8 ####[facility] [id number] [place] [address] [place] Potassium [Moles/Vol] 4.1 mmol/L Normal 3.7-5.1 [facility] Comment on above: Order Comment: Speci men Type: BLOOD SPECIMENOrdering Facility: [facility] Address: [address] [place] [address] Performed By: #### 2 4323-8 ####[facility] [id number] [place] [address] [place] Protein [Mass/Vol] 6.2 g/dL Low 6.3-8.0 [facility] Comment on above: Order Comment: Speci men Type: BLOOD SPECIMENOrdering Facility: [facility] Address: [address] [place], [place] [id number] Performed By: #### 2 4323-8 ####[facility] YANDELWNCLIA [id number] [address] [place] Sodium [Moles/Vol] 138 mmol/L Normal 136-144 [facility] Comment on above: Order Comment: Speci men Type: BLOOD SPECIMENOrdering Facility: [facility] Address: [address] [place] [address] Performed By: #### 2 4323-8 ####[facility]IAL[facility]CL[facility] [id number] [address] [place] Urea nitrogen [Mass/Vol] 17 mg/dL Normal 9-24 [facility] Comment on above: Order Comment: Speci men Type: BLOOD SPECIMENOrdering Facility: [facility] Address: [address] [place] [address] Performed By: #### 2 4323-8 ####[facility] YANDELWNCLIA [id number] [place] [address] [place] Internal Medicine Office Vis iton 08-14-2024 Internal Medicine Office Visit Normal [facility] Natriuretic peptide.B prohor lor N-Terminal [Mass/volume] in Serum or PlasmaOrdered By: Krishna Mcdaniel on 08-14-2024 Natriuretic peptide.B prohormone N-Terminal [Mass/Vol] 1092 pg/mL High <900 [facility] Comment on above: Heart Failure Unlike ly: < 300 pg/mLHeart Failure Likely< 50 Years: > 450 pg/mL50-75 Years: > 900 pg/mL>75 Years: > 1800 pg/mL CNPNon 08-06-2024 CNPN Normal [facility] Anion gap [Moles/Vol]Ordered By: Fernanda Staples on 08-03-2024 Anion gap in Serum or Plasma 14 5-15 [facility] Anion gap in Serum or Plasma Ordered By: Fernanda Staples on 08-03-2024 Anion gap [Moles/Vol] 14 mmol/L 5-15 [facility] BUN/creatinine ratioOrdered By: Fernanda Staples on 08-03-2024 Urea nitrogen/Creatinine [Mass ratio] 27.9 mg/mg High 10-20 [facility] BUN/creatinine ratio 27.9 RATIO High 10-20 [facility] Basic Metabolic Profile (BMP )on 08-03-2024 BUN/CRE 27.9 RATIO High 10-20 [facility] Comment on above: Performed By: #### L 501.5200, L501.2300, L500.2500, L100.0500 ####[facility] [address] [place], [address] Calcium [Mass/Vol] 8.5 mg/dL Normal 7.6-11.0 [facility] Comment on above: Performed By: #### L 501.5200, L501.2300, L500.2500, L100.0500 ####[facility] [address] [place], [address] Chloride [Moles/Vol] 98 mmol/L Normal 98-108 [facility] Comment on above: Performed By: #### L 501.5200, L501.2300, L500.2500, L100.0500 ####[facility] [address] [place], [address] CO2 [Moles/Vol] 27.7 mmol/L Normal 21.0-32.0 [facility] Comment on above: Performed By: #### L 501.5200, L501.2300, L500.2500, L100.0500 ####[facility] [address] [place], [address] Creatinine [Mass/Vol] 0.87 mg/dL Normal 0.70-1.20 [facility] Comment on above: Performed By: #### L 501.5200, L501.2300, L500.2500, L100.0500 ####[facility] [address] [place], [address] ECRCL 102.93 ml/min Normal 50-250 [facility] Comment on above: Performed By: #### L 501.5200, L501.2300, L500.2500, L100.0500 ####[facility] [address] [place], [address] GAP 14 Normal 5-15 [facility] Comment on above: Performed By: #### L 501.5200, L501.2300, L500.2500, L100.0500 ####[facility] [address] [place], [address] GFR/1.73 sq M.predicted among non-blacks MDRD (S/P/Bld) [Vol rate/Area] 92 mL/min/{1.73_m2} Normal >60 [facility] Comment on above: Result Comment: mL/m in/1.73m2 CKD-EPI Creatinine Equation (2020) Performed By: #### L 501.5200, L501.2300, L500.2500, L100.0500 ####[facility] [address] [place], [address] Glucose [Mass/Vol] 133 mg/dL High 70-99 [facility] Comment on above: Performed By: #### L 501.5200, L501.2300, L500.2500, L100.0500 ####[facility] [address] [place], [address] Potassium [Moles/Vol] 3.6 mmol/L Normal 3.3-5.1 [facility] Comment on above: Performed By: #### L 501.5200, L501.2300, L500.2500, L100.0500 ####[facility] [address] [place], [address] Sodium [Moles/Vol] 140 mmol/L Normal 133-145 [facility] Comment on above: Performed By: #### L 501.5200, L501.2300, L500.2500, L100.0500 ####[facility] [address] [place], [address] Urea nitrogen [Mass/Vol] 24 mg/dL High 4-19 [facility] Comment on above: Performed By: #### L 501.5200, L501.2300, L500.2500, L100.0500 ####[facility] [address] [place], [address] Bedside Glucoseon 08-03-2024 FINGERSTICK GLU 154 mg/dL High 74-106 [facility] Comment on above: Result Comment: JOYCE GEMENT OF PATIENT CARE PER NURSING PROTOCOL Performed By: #### L 501.080 ####[facility] [address] [place], [address] FINGERSTICK GLU 156 mg/dL High 74-106 [facility] Comment on above: Result Comment: JOYCE GEMENT OF PATIENT CARE PER NURSING PROTOCOL Performed By: #### L 501.080 ####[facility] [address] [place], [address] FINGERSTICK GLU 174 mg/dL High 74-106 [facility] Comment on above: Result Comment: JOYCE GEMENT OF PATIENT CARE PER NURSING PROTOCOL Performed By: #### L 501.080 ####[facility] [address] [place], [address] CBC-Complete Blood Cnt No Di ffon 08-03-2024 Erythrocyte distribution width (RBC) [Ratio] 17.5 % High 11.6-14.6 [facility] Comment on above: Performed By: #### L 501.5200, L501.2300, L500.2500, L100.0500 ####[facility] [address] [place], [address] Hematocrit (Bld) [Volume fraction] 33.8 % Low 40-54 [facility] Comment on above: Performed By: #### L 501.5200, L501.2300, L500.2500, L100.0500 ####[facility] [address] [place], [address] Hemoglobin (Bld) [Mass/Vol] 9.8 g/dL Low 13.0-16.5 [facility] Comment on above: Performed By: #### L 501.5200, L501.2300, L500.2500, L100.0500 ####[facility] [address] [place], [address] MCH (RBC) [Entitic mass] 22.2 pg Low 27.0-32.0 [facility] Comment on above: Performed By: #### L 501.5200, L501.2300, L500.2500, L100.0500 ####[facility] [address] [place], [address] MCHC (RBC) [Mass/Vol] 29.0 g/dL Low 32-36 [facility] Comment on above: Performed By: #### L 501.5200, L501.2300, L500.2500, L100.0500 ####[facility] [address] [place], [address] MCV (RBC) [Entitic vol] 76.5 fL Low 80-94 [facility] Comment on above: Performed By: #### L 501.5200, L501.2300, L500.2500, L100.0500 ####[facility] [address] [place], [address] Platelet mean volume (Bld) [Entitic vol] 10.5 fL Normal 6.2-12.0 [facility] Comment on above: Performed By: #### L 501.5200, L501.2300, L500.2500, L100.0500 ####[facility] [address] [place], [address] Platelets (Bld) [#/Vol] 403 10*3/uL Normal 150-450 [facility] Comment on above: Performed By: #### L 501.5200, L501.2300, L500.2500, L100.0500 ####[facility] [address] [place], [address] RBC (Bld) [#/Vol] 4.42 10*6/uL Low 4.6-6.[address] [facility] Comment on above: Performed By: #### L 501.5200, L501.2300, L500.2500, L100.0500 ####[facility] [address] [place], [address] RDW SD 48.4 fl High 35.1-43.9 [facility] Comment on above: Performed By: #### L 501.5200, L501.2300, L500.2500, L100.0500 ####[facility] [address] [place], [address] WBC (Bld) [#/Vol] 14.0 10*3/uL High 4.4-11.[address] [facility] Comment on above: Performed By: #### L 501.5200, L501.2300, L500.2500, L100.0500 ####[facility] [address] [place], [address] Calcium [Mass/Vol]Ordered By : Fernanda Staples on 08-03-2024 Serum or plasma calcium measurement (mass/volume) 8.5 mg/dL 7.6-11.0 [facility] Carbon dioxide, total [Moles /volume] in Central venous bloodOrdered By: Fernanda Staples on 08-03-2024 CO2 [Moles/Vol] 27.7 mmol/L 21.0-32.0 [facility] Carbon dioxide, total [Moles/volume] in Central venous blood 27.7 mmol/L 21.0-32.0 [facility] Chloride assayOrdered By: Reynaldo Staples on 08-03-2024 Chloride [Moles/Vol] 98 mmol/L 98-108 [facility] Chloride assay 98 mmol/L 98-108 [facility] Creatinine [Mass/Vol]Ordered By: Fernanda Staples on 08-03-2024 Serum creatinine measurement (mass/volume) 0.87 mg/dL 0.70-1.20 [facility] Erythrocyte distribution wid th (RBC) [Ratio]Ordered By: Fernanda Staples on 08-03-2024 Erythrocyte distribution width ratio 17.5 % High 11.6-14.6 [facility] Erythrocyte distribution width standard deviation 48.4 fl High 35.1-43.9 [facility] Erythrocyte distribution wid th ratioOrdered By: Fernanda Staples on 08-03-2024 Erythrocyte distribution width (RBC) [Ratio] 17.5 % High 11.6-14.6 [facility] Erythrocyte distribution wid th standard deviationOrdered By: Fernanda Staples on 08-03-2024 Erythrocyte distribution width (RBC) [Ratio] 48.4 fl High 35.1-43.9 [facility] Estimation of creatinine peyman aranceOrdered By: Fernanda Staples on 08-03-2024 Estimation of creatinine clearance 102.93 ml/min 50-250 [facility] GFR/1.73 sq M.predicted anibal g non-blacks MDRD (S/P/Bld) [Vol rate/Area]Ordered By: Fernanda Staples on 08-03-2024 Glomerular filtration rate (GFR) estimation/1.73 sq m using serum, plasma, or whole b 92 >60 [facility] Glomerular filtration rate ( GFR) estimation/1.73 sq m using serum, plasma, or whole bOrdered By: Fernanda Staples on 08-03-2024 GFR/1.73 sq M.predicted among non-blacks MDRD (S/P/Bld) [Vol rate/Area] 92 mL/min/{1.73_m2} >60 [facility] Comment on above: mL/min/1.73m2 CKD-EP I Creatinine Equation (2020) Glucose [Mass/Vol]Ordered By : Fernanda Staples on 08-03-2024 Serum glucose measurement (mass/volume) 133 mg/dL High 70-99 [facility] Glucose measurement at bedsi deOrdered By: Fernanda Staples on 08-03-2024 Glucose [Mass/Vol] 154 mg/dL High 74-106 [facility] Comment on above: MANAGEMENT OF PATIEN T CARE PER NURSING PROTOCOL Glucose measurement at bedside 154 mg/dL High 74-106 [facility] Hematocrit Auto (Bld) [Volum e fraction]Ordered By: Fernanda Staples on 08-03-2024 Hematocrit (Bld) [Volume fraction] 33.8 % Low 40-54 [facility] Automated blood hematocrit (percentage) 33.8 % Low 40-54 [facility] Hemoglobin measurementOrdere d By: Fernanda Staples on 08-03-2024 Hemoglobin (Bld) [Mass/Vol] 9.8 g/dL Low 13.0-16.5 [facility] Hemoglobin measurement 9.8 g/dL Low 13.0-16.5 [facility] MCV (RBC) [Entitic vol]Order ed By: Fernanda Staples on 08-03-2024 MCV (mean corpuscular volume) determination 76.5 fL Low 80-94 [facility] MCV (mean corpuscular volume ) determinationOrdered By: Fernanda Staples on 08-03-2024 MCV (RBC) [Entitic vol] 76.5 fL Low 80-94 [facility] Magnesiumon 08-03-2024 Magnesium [Mass/Vol] 2.2 mg/dL Normal 1.5-2.2 [facility] Comment on above: Performed By: #### L 501.5200, L501.2300, L500.2500, L100.0500 ####[facility] [address] [facility] [place], [address] Magnesium (Unsp spec) [Mass/ Vol]Ordered By: Fernanda Staples on 08-03-2024 Magnesium measurement (mass/volume) 2.2 mg/dL 1.5-2.2 [facility] Magnesium measurement (mass/ volume)Ordered By: Fernanda Staples on 08-03-2024 Magnesium (Unsp spec) [Mass/Vol] 2.2 mg/dL 1.5-2.2 [facility] Mean corpuscular hemoglobin (MCH) determinationOrdered By: Fernanda Staples on 08-03-2024 MCH (RBC) [Entitic mass] 22.2 pg Low 27.0-32.0 [facility] Mean corpuscular hemoglobin (MCH) determination 22.2 pg Low 27.0-32.0 [facility] Mean corpuscular hemoglobin concentration (MCHC) determinationOrdered By: Fernanda Staples on 08-03-2024 MCHC (RBC) [Mass/Vol] 29.0 g/dL Low 32-36 [facility] Mean corpuscular hemoglobin concentration (MCHC) determination 29.0 g/dL Low 32-36 [facility] Mean platelet volume determi nationOrdered By: Fernanda Staples on 08-03-2024 Platelet mean volume (Bld) [Entitic vol] 10.5 fL 6.2-12.0 [facility] Mean platelet volume determination 10.5 fl 6.2-12.0 [facility] Phosphoruson 08-03-2024 Phosphate [Mass/Vol] 5.1 mg/dL High 2.7-4.5 [facility] Comment on above: Performed By: #### L 501.5200, L501.2300, L500.2500, L100.0500 ####[facility] [address] [place], [address] Platelet countOrdered By: Reynaldo Staples on 08-03-2024 Platelets (Bld) [#/Vol] 403 10*3/uL 150-450 [facility] Platelet count 403 K/mm3 150-450 [facility] Potassium (Unsp spec) [Mass/ Vol]Ordered By: Fernanda Staples on 08-03-2024 Potassium measurement (mass/volume) 3.6 mmol/L 3.3-5.1 [facility] Potassium measurement (mass/ volume)Ordered By: Fernanda Staples on 08-03-2024 Potassium (Unsp spec) [Mass/Vol] 3.6 mmol/L 3.3-5.1 [facility] RBC Auto (Bld) [#/Vol]Ordere d By: Fernanda Staples on 08-03-2024 RBC (Bld) [#/Vol] 4.42 10*6/uL Low 4.6-6.[address] [facility] Automated blood erythrocyte count 4.42 M/mm3 Low 4.6-6.2 [facility] Serum creatinine measurement (mass/volume)Ordered By: Fernanda Staples on 08-03-2024 Creatinine [Mass/Vol] 0.87 mg/dL 0.70-1.20 [facility] Serum glucose measurement (m ass/volume)Ordered By: Fernanda Staples on 08-03-2024 Glucose [Mass/Vol] 133 mg/dL High 70-99 [facility] Serum or plasma calcium yvonne urement (mass/volume)Ordered By: Fernanda Staples on 08-03-2024 Calcium [Mass/Vol] 8.5 mg/dL 7.6-11.0 [facility] Serum or plasma urea nitroge n measurement (mass/volume)Ordered By: Fernanda Staples on 08-03-2024 Urea nitrogen [Mass/Vol] 24 mg/dL High 4-19 [facility] Serum phosphorus measurement Ordered By: Fernanda Staples on 08-03-2024 Serum phosphorus measurement 5.1 mg/dL High 2.7-4.5 [facility] Sodium levelOrdered By: Nelia Staples on 08-03-2024 Sodium [Moles/Vol] 140 mmol/L 133-145 [facility] Sodium level 140 mmol/L 133-145 [facility] Urea nitrogen [Mass/Vol]Orde red By: Fernanda Staples on 08-03-2024 Serum or plasma urea nitrogen measurement (mass/volume) 24 mg/dL High 4-19 [facility] White blood cell (WBC) count Ordered By: Fernanda Staples on 08-03-2024 WBC (Bld) [#/Vol] 14.0 10*3/uL High 4.4-11.[address] [facility] White blood cell (WBC) count 14.0 K/mm3 High 4.4-11.0 [facility] Absolute lymphocyte countOrd ered By: Janes Pennington on 08-02-2024 Lymphocytes Auto (Unsp spec) [#/Vol] 0.70 10*3/uL Low 0.83-4.51 [facility] Absolute neutrophil countOrd ered By: Janes Pennington on 08-02-2024 Neutrophils (Bld) [#/Vol] 8.5 10*3/uL High 2.0-7.7 [facility] Absolute neutrophil count 8.5 X10^3/uL High 2.0-7.7 [facility] Automated lymphocyte count a s percentage of total leukocytesOrdered By: Janes Pennington on 08-02-2024 Lymphocytes/100 WBC Auto (Unsp spec) 6.9 % Low 19-41 [facility] Basic Metabolic Profile (BMP )on 08-02-2024 BUN/CRE 23.9 RATIO High 10-20 [facility] Comment on above: Performed By: #### L 100.0100, L500.2500 ####[facility] [address] [place], [address] Calcium [Mass/Vol] 8.8 mg/dL Normal 7.6-11.0 [facility] Comment on above: Performed By: #### L 100.0100, L500.2500 ####[facility] [address] [place], [address] Chloride [Moles/Vol] 100 mmol/L Normal 98-108 [facility] Comment on above: Performed By: #### L 100.0100, L500.2500 ####[facility] [address] [place], [address] CO2 [Moles/Vol] 26.2 mmol/L Normal 21.0-32.0 [facility] Comment on above: Performed By: #### L 100.0100, L500.2500 ####[facility] [address] [place], [address] Creatinine [Mass/Vol] 0.85 mg/dL Normal 0.70-1.20 [facility] Comment on above: Performed By: #### L 100.0100, L500.2500 ####[facility] [address] [place], [address] ECRCL 105.36 ml/min Normal 50-250 [facility] Comment on above: Performed By: #### L 100.0100, L500.2500 ####[facility] [address] [place], [address] GAP 13 Normal 5-15 [facility] Comment on above: Performed By: #### L 100.0100, L500.2500 ####[facility] [address] [place], [address] GFR/1.73 sq M.predicted among non-blacks MDRD (S/P/Bld) [Vol rate/Area] 92 mL/min/{1.73_m2} Normal >60 [facility] Comment on above: Result Comment: mL/m in/1.73m2 CKD-EPI Creatinine Equation (2020) Performed By: #### L 100.0100, L500.2500 ####[facility] [address] [place], [address] Glucose [Mass/Vol] 158 mg/dL High 70-99 [facility] Comment on above: Performed By: #### L 100.0100, L500.2500 ####[facility] [address] [place], [address] Potassium [Moles/Vol] 4.0 mmol/L Normal 3.3-5.1 [facility] Comment on above: Performed By: #### L 100.0100, L500.2500 ####[facility] [address] [place], [address] Sodium [Moles/Vol] 139 mmol/L Normal 133-145 [facility] Comment on above: Performed By: #### L 100.0100, L500.2500 ####[facility] [address] [place], [address] Urea nitrogen [Mass/Vol] 20 mg/dL High 4-19 [facility] Comment on above: Performed By: #### L 100.0100, L500.2500 ####[facility] [address] [place], [address] Basophil percentageOrdered B y: Janes Pennington on 08-02-2024 Basophils/100 WBC (Bld) 0.1 % 0-1 [facility] Basophil percentage 0.1 % 0-[address] [facility] Bedside Glucoseon 08-02-2024 FINGERSTICK GLU 66 mg/dL Low 74-106 [facility] Comment on above: Result Comment: JOYCE GEMENT OF PATIENT CARE PER NURSING PROTOCOL Performed By: #### L 501.080 ####[facility] [address] [place], [address] FINGERSTICK GLU 191 mg/dL High 74-106 [facility] Comment on above: Result Comment: JOYCE GEMENT OF PATIENT CARE PER NURSING PROTOCOL Performed By: #### L 501.080 ####[facility] [address] [place], [address] CBC W/Diff, Automatedon 07-24 Absolute Lymph 0.70 X10 3/uL Low 0.83-4.51 [facility] Comment on above: Performed By: #### L 100.0100, L500.2500 ####[facility] [address] [place], [address] Absolute Neut 8.5 X10 3/uL High 2.0-7.7 [facility] Comment on above: Performed By: #### L 100.0100, L500.2500 ####[facility] [address] [place], [address] Basophils/100 WBC (Bld) 0.1 % Normal 0-1 [facility] Comment on above: Performed By: #### L 100.0100, L500.2500 ####[facility] [address] [place], [address] Eosinophils/100 WBC (Bld) 0.0 % Normal 0-5 [facility] Comment on above: Performed By: #### L 100.0100, L500.2500 ####[facility] [address] [place], [address] Erythrocyte distribution width (RBC) [Ratio] 17.4 % High 11.6-14.6 [facility] Comment on above: Performed By: #### L 100.0100, L500.2500 ####[facility] [address] [place], [address] Hematocrit (Bld) [Volume fraction] 34.2 % Low 40-54 [facility] Comment on above: Performed By: #### L 100.0100, L500.2500 ####[facility] [address] [place], [address] Hemoglobin (Bld) [Mass/Vol] 9.8 g/dL Low 13.0-16.5 [facility] Comment on above: Performed By: #### L 100.0100, L500.2500 ####[facility] [address] [place], [address] IG% 0.500 Normal 0.0-0.9 [facility] Comment on above: Result Comment: IG% - Immature Granulocytes (promyelocytes, myelocytes andmetamyelocytes) > 1% indicates that a LEFT SHIFT is Present. Performed By: #### L 100.0100, L500.2500 ####[facility] [address] [place], [address] Lymphocytes/100 WBC (Bld) 6.9 % Low 19-41 [facility] Comment on above: Performed By: #### L 100.0100, L500.2500 ####[facility] [address] [place], [address] MCH (RBC) [Entitic mass] 21.9 pg Low 27.0-32.0 [facility] Comment on above: Performed By: #### L 100.0100, L500.2500 ####[facility] [address] [place], [address] MCHC (RBC) [Mass/Vol] 28.7 g/dL Low 32-36 [facility] Comment on above: Performed By: #### L 100.0100, L500.2500 ####[facility] [address] [place], [address] MCV (RBC) [Entitic vol] 76.5 fL Low 80-94 [facility] Comment on above: Performed By: #### L 100.0100, L500.2500 ####[facility] [address] [place], [address] Monocytes/100 WBC (Bld) 8.9 % Normal 0-10 [facility] Comment on above: Performed By: #### L 100.0100, L500.2500 ####[facility] [address] [place], [address] Neutrophils/100 WBC (Bld) 83.6 % High 47-70 [facility] Comment on above: Performed By: #### L 100.0100, L500.2500 ####[facility] [address] [place], [address] Nucleated RBC (Bld) [#/Vol] 0 10*3/uL Normal 0-5 [facility] Comment on above: Performed By: #### L 100.0100, L500.2500 ####[facility] [address] [place], [address] Platelet mean volume (Bld) [Entitic vol] 10.6 fL Normal 6.2-12.0 [facility] Comment on above: Performed By: #### L 100.0100, L500.2500 ####[facility] [address] [place], [address] Platelets (Bld) [#/Vol] 421 10*3/uL Normal 150-450 [facility] Comment on above: Performed By: #### L 100.0100, L500.2500 ####[facility] [address] [place], [address] RBC (Bld) [#/Vol] 4.47 10*6/uL Low 4.6-6.[address] [facility] Comment on above: Performed By: #### L 100.0100, L500.2500 ####[facility] [address] [place], [address] RDW SD 48.2 fl High 35.1-43.9 [facility] Comment on above: Performed By: #### L 100.0100, L500.2500 ####[facility] [address] [place], [address] WBC (Bld) [#/Vol] 10.2 10*3/uL Normal 4.4-11.[address] [facility] Comment on above: Performed By: #### L 100.0100, L500.2500 ####[facility] [address] [place], [address] CTA Chest W/WO Contraston CTA Chest W/WO Contrast Normal [facility] Electrocardiogram reportOrde red By: Shree Palomares on 08-02-2024 EKG study [facility] Other Phone: Eosinophil percentageOrdered By: Janes Pennington on 08-02-2024 Eosinophils/100 WBC (Bld) 0.0 % 0-5 [facility] Eosinophil percentage 0.0 % 0-5 [facility] Immature granulocytes/100 WB C Auto (Bld)Ordered By: Janes Pennington on 08-02-2024 Immature granulocytes/100 WBC (Bld) 0.500 % 0.0-0.9 [facility] Comment on above: IG% - Immature Granu locytes (promyelocytes, myelocytes and metamyelocytes) > 1% indicates that a LEFT SHIFT is Present. Automated immature granulocyte percentage 0.500 % 0.0-0.9 [facility] Lymphocytes Auto (Unsp spec) [#/Vol]Ordered By: Janes Pennington on 08-02-2024 Absolute lymphocyte count 0.70 X10^3/uL Low 0.83-4. 51 [facility] Lymphocytes/100 WBC Auto (Un sp spec)Ordered By: Janes Pennington on 08-02-2024 Automated lymphocyte count as percentage of total leukocytes 6.9 % Low 19-41 [facility] M100.019on 08-02-2024 M100.019 Negative Normal [facility] Comment on above: Performed By: #### M 100.019 ####[facility] [address] [facility] [place], [place], [address] Monocyte percentageOrdered B y: Janes Pennington on 08-02-2024 Monocytes/100 WBC (Bld) 8.9 % 0-10 [facility] Monocyte percentage 8.9 % 0-[address] [facility] Neutrophil percentageOrdered By: Janes Pennington on 08-02-2024 Neutrophils/100 WBC (Bld) 83.6 % High 47-70 [facility] Neutrophil percentage 83.6 % High 47-70 [facility] Nucleated red blood cell per centageOrdered By: Janes Pennington on 08-02-2024 Nucleated RBC/100 WBC (Bld) [Ratio] 0 % 0-5 [facility] Nucleated red blood cell percentage 0 % 0-5 [facility] RESPIRATORY PANEL MOLECULARo n 08-02-2024 RP PANEL Normal [facility] Comment on above: Performed By: #### M 100.638 ####[facility] [address] [facility] [place], [place], [id number] Respiratory pathogens detect ion panel by molecular detection methodOrdered By: Fernanda Staples on 08-02-2024 Respiratory pathogens DNA and RNA panel ARYAN+probe (Resp) [facility] Suai-bcf-1Ltwlthw By: Kelsey Staples on 08-02-2024 SARS-CoV-2 (COVID-19) RNA ARYAN+probe Ql (Unsp spec) [facility] 12 Lead EKGon 08-01-2024 12 Lead EKG Normal [facility] Absolute neutrophil countOrd ered By: George Jackson on 08-01-2024 Neutrophils (Bld) [#/Vol] 12.3 10*3/uL High 2.0-7.7 [facility] Anion gap in Serum or Plasma Ordered By: George Jackson on 08-01-2024 Anion gap [Moles/Vol] 11 mmol/L - [facility] BUN/creatinine ratioOrdered By: George Jackson on 08-01-2024 Urea nitrogen/Creatinine [Mass ratio] 19.1 mg/mg - [facility] Basic Metabolic Profile (BMP )on 08-01-2024 BUN/CRE 19.1 RATIO Normal 02-11 [facility] Comment on above: Performed By: #### L 500.2500, L503.7505, L100.0100, L501.4021 ####[facility] [address] [place], [address] Urea nitrogen [Mass/Vol] 14 mg/dL Normal 08-11 [facility] Comment on above: Performed By: #### L 500.2500, L503.7505, L100.0100, L501.4021 ####[facility] [address] [place], [address] Basophil percentageOrdered B y: George Jackson on 08-01-2024 Basophils/100 WBC (Bld) 0.5 % 0-1 [facility] Bedside Glucoseon 08-01-2024 FINGERSTICK GLU 265 mg/dL High 74-106 [facility] Comment on above: Result Comment: JOYCE NARAYAN OF PATIENT CARE PER NURSING PROTOCOL Performed By: #### L 501.080 ####[facility] [address] [place], [address] FINGERSTICK GLU 233 mg/dL High 74-106 [facility] Comment on above: Result Comment: JOYCE NARAYAN OF PATIENT CARE PER NURSING PROTOCOL Performed By: #### L 501.080 ####[facility] [address] [place], [address] CBC W Auto Differential pane l (Bld)on 08-01-2024 Basophils (Bld) [#/Vol] 0.05 10*3/uL Normal <0.11 [facility] Comment on above: Order Comment: Speci men Type: BLOOD SPECIMENOrdering Facility: [facility] Address: [address] [place] [address] Performed By: #### 5 7021-8 ####[facility] MILLWRONAKLIA [id number] [place] [address] [place] Basophils/100 WBC (Bld) 0.4 % Normal [facility] Comment on above: Order Comment: Speci men Type: BLOOD SPECIMENOrdering Facility: [facility] Address: [address] [place] [address] Performed By: #### 5 7021-8 ####[facility] BEACHWRONAKLIA [id number] [place] [address] [place] Differential cell count method Nom (Bld) Auto Normal [facility] Comment on above: Order Comment: Speci men Type: BLOOD SPECIMENOrdering Facility: [facility] Address: [address] [place] [address] Performed By: #### 5 7021-8 ####[facility] MILLWNCLIA [id number] [place] [address] [place] Eosinophils (Bld) [#/Vol] 0.16 10*3/uL Normal <0.46 [facility] Comment on above: Order Comment: Speci men Type: BLOOD SPECIMENOrdering Facility: [facility] Address: [address] [place] [address] Performed By: #### 5 7021-8 ####[facility] MILLTOWNCLIA [id number] [place] [address] [place] Eosinophils/100 WBC (Bld) 1.3 % Normal [facility] Comment on above: Order Comment: Speci men Type: BLOOD SPECIMENOrdering Facility: [facility] Address: [address] [place] [address] Performed By: #### 5 7021-8 ####[facility] [id number] [place] [address] [place] Erythrocyte distribution width (RBC) [Ratio] 17.8 % High 11.5-15.0 [facility] Comment on above: Order Comment: Speci men Type: BLOOD SPECIMENOrdering Facility: [facility] Address: [address] [place] [address] Performed By: #### 5 7021-8 ####[facility]RONAKMarcio [id number] [place] [address] [place] Hematocrit (Bld) [Volume fraction] 35.3 % Low 39.0-51.0 [facility] Comment on above: Order Comment: Speci men Type: BLOOD SPECIMENOrdering Facility: [facility] Address: [address] [place] [address] Performed By: #### 5 7021-8 ####[facility]IALELSI [id number] [place] [address] [place] Hemoglobin (Bld) [Mass/Vol] 10.1 g/dL Low 13.0-17.0 [facility] Comment on above: Order Comment: Speci men Type: BLOOD SPECIMENOrdering Facility: [facility] Address: [address] [place] [address] Performed By: #### 5 7021-8 ####[facility]IALNCLI [id number] [place] [address] [place] Immature granulocytes (Bld) [#/Vol] 0.06 10*3/uL Normal <0.10 [facility] Comment on above: Order Comment: Speci men Type: BLOOD SPECIMENOrdering Facility: [facility] Address: [address] [place] [address] Performed By: #### 5 7021-8 ####[facility] [id number] [place] [address] [place] Immature granulocytes/100 WBC (Bld) 0.5 % Normal [facility] Comment on above: Order Comment: Speci men Type: BLOOD SPECIMENOrdering Facility: [facility] Address: [address] [place] [address] Performed By: #### 5 7021-8 ####[facility] [id number] [place] [address] [place] Lymphocytes (Bld) [#/Vol] 0.95 10*3/uL Low 1.00-4.0 0 [facility] Comment on above: Order Comment: Speci men Type: BLOOD SPECIMENOrdering Facility: [facility] Address: [address] [place] [address] Performed By: #### 5 7021-8 ####[facility] [id number] [place] [address] [place] Lymphocytes/100 WBC (Bld) 7.7 % Normal [facility] Comment on above: Order Comment: Speci men Type: BLOOD SPECIMENOrdering Facility: [facility] Address: [address] [place] [address] Performed By: #### 5 7021-8 ####[facility] [id number] [place] [address] [place] MCH (RBC) [Entitic mass] 21.8 pg Low 26.0-34.0 [facility] Comment on above: Order Comment: Speci men Type: BLOOD SPECIMENOrdering Facility: [facility] Address: [address] [place], [place] [address] Performed By: #### 5 7021-8 ####[facility]IALNCLIA [id number] [place] [address] [place] MCHC (RBC) [Mass/Vol] 28.6 g/dL Low 30.5-36.0 [facility] Comment on above: Order Comment: Speci men Type: BLOOD SPECIMENOrdering Facility: [facility] Address: [address] [place] [address] Performed By: #### 5 7021-8 ####[facility] MEMORIALNCA [id number] [place] [address] [place] MCV (RBC) [Entitic vol] 76.2 fL Low 80.0-100.0 C [facility] Comment on above: Order Comment: Speci men Type: BLOOD SPECIMENOrdering Facility: [facility] Address: [address] [place] [address] Performed By: #### 5 7021-8 ####[facility] [id number] [place] [address] [place] Monocytes (Bld) [#/Vol] 0.98 10*3/uL High <0.87 [facility] Comment on above: Order Comment: Speci men Type: BLOOD SPECIMENOrdering Facility: [facility] Address: [address] [place] [address] Performed By: #### 5 7021-8 ####[facility] HOSPITALLIA [id number] [place] [address] [place] Monocytes/100 WBC (Bld) 7.9 % Normal C [facility] Comment on above: Order Comment: Speci men Type: BLOOD SPECIMENOrdering Facility: [facility] Address: [address] [place] [address] Performed By: #### 5 7021-8 ####[facility] [id number] [place] [address] [place] Neutrophils (Bld) [#/Vol] 10.19 10*3/uL High 1.45-7. 50 [facility] Comment on above: Order Comment: Speci men Type: BLOOD SPECIMENOrdering Facility: [facility] Address: [address] [place] [address] Performed By: #### 5 7021-8 ####[facility] [id number] [place] [address] [place] Neutrophils/100 WBC (Bld) 82.2 % Normal [facility] Comment on above: Order Comment: Speci men Type: BLOOD SPECIMENOrdering Facility: [facility] Address: [address] [place] [address] Performed By: #### 5 7021-8 ####[facility] [id number] [place] [address] [place] Nucleated RBC (Bld) [#/Vol] 10*3/uL Normal <0.01 [facility] Comment on above: Order Comment: Speci men Type: BLOOD SPECIMENOrdering Facility: [facility] Address: [address] [place] [address] Performed By: #### 5 7021-8 ####[facility]IALNCLI [id number] [place] [address] [place] Nucleated RBC/100 WBC (Bld) [Ratio] 0.0 /100 WBC Normal [facility] Comment on above: Order Comment: Speci men Type: BLOOD SPECIMENOrdering Facility: [facility] Address: [address] [place] [address] Performed By: #### 5 7021-8 ####[facility]CL[facility] [id number] [place] [address] [place] Platelet mean volume (Bld) [Entitic vol] 9.5 fL Normal 9.0-12.7 [facility] Comment on above: Order Comment: Speci men Type: BLOOD SPECIMENOrdering Facility: [facility] Address: [address] [place] [address] Performed By: #### 5 7021-8 ####[facility] MEMORIALNCSUMIA [id number] [place] [address] [place] Platelets (Bld) [#/Vol] 377 10*3/uL Normal 150-400 [facility] Comment on above: Order Comment: Speci men Type: BLOOD SPECIMENOrdering Facility: [facility] Address: [address] [place] [address] Performed By: #### 5 7021-8 ####[facility] [id number] [place] [address] [place] RBC (Bld) [#/Vol] 4.63 10*6/uL Normal 4.20-6.00 [facility] Comment on above: Order Comment: Speci men Type: BLOOD SPECIMENOrdering Facility: [facility] Address: [address] [place] [address] Performed By: #### 5 7021-8 ####[facility] MEMORIALNCA [id number] [place] [address] [place] WBC (Bld) [#/Vol] 12.39 10*3/uL High 3.70-11.00 [facility] Comment on above: Order Comment: Speci men Type: BLOOD SPECIMENOrdering Facility: [facility] Address: [address] [place] [address] Performed By: #### 5 7021-8 ####[facility] HOS[facility]ITALLIA [id number] [place] [address] [place] CBC W/Diff, Automatedon 04-0 -2024 Absolute Lymph 0.44 X10 3/uL Low 0.83-4.51 [facility] Comment on above: Performed By: #### L 500.2500, L503.7505, L100.0100, L501.4021 ####[facility] [address] [place], [address] Absolute Neut 12.3 X10 3/uL High 2.0-7.7 [facility] Comment on above: Performed By: #### L 500.2500, L503.7505, L100.0100, L501.4021 ####[facility] [address] [place], [address] Basophils/100 WBC (Bld) 0.5 % Normal 0-1 [facility] Comment on above: Performed By: #### L 500.2500, L503.7505, L100.0100, L501.4021 ####[facility] [address] [place], [address] Eosinophils/100 WBC (Bld) 0.7 % Normal 0-5 [facility] Comment on above: Performed By: #### L 500.2500, L503.7505, L100.0100, L501.4021 ####[facility] [address] [place], [address] Erythrocyte distribution width (RBC) [Ratio] 17.8 % High 11.6-14.6 [facility] Comment on above: Performed By: #### L 500.2500, L503.7505, L100.0100, L501.4021 ####[facility] [address] [place], [address] Hematocrit (Bld) [Volume fraction] 34.5 % Low 40-54 [facility] Comment on above: Performed By: #### L 500.2500, L503.7505, L100.0100, L501.4021 ####[facility] [address] [place], [address] Hemoglobin (Bld) [Mass/Vol] 10.1 g/dL Low 13.0-16.5 [facility] Comment on above: Performed By: #### L 500.2500, L503.7505, L100.0100, L501.4021 ####[facility] [address] [place], [address] IG% 0.800 Normal 0.0-0.9 [facility] Comment on above: Result Comment: IG% - Immature Granulocytes (promyelocytes, myelocytes andmetamyelocytes) > 1% indicates that a LEFT SHIFT is Present. Performed By: #### L 500.2500, L503.7505, L100.0100, L501.4021 ####[facility] [address] [place], [address] Lymphocytes/100 WBC (Bld) 3.3 % Low 19-41 [facility] Comment on above: Performed By: #### L 500.2500, L503.7505, L100.0100, L501.4021 ####[facility] [address] [place], [address] MCH (RBC) [Entitic mass] 22.5 pg Low 27.0-32.0 [facility] Comment on above: Performed By: #### L 500.2500, L503.7505, L100.0100, L501.4021 ####[facility] [address] [place], [address] MCHC (RBC) [Mass/Vol] 29.3 g/dL Low 32-36 [facility] Comment on above: Performed By: #### L 500.2500, L503.7505, L100.0100, L501.4021 ####[facility] [address] [place], [address] MCV (RBC) [Entitic vol] 76.8 fL Low 80-94 [facility] Comment on above: Performed By: #### L 500.2500, L503.7505, L100.0100, L501.4021 ####[facility] [address] [place], [address] Monocytes/100 WBC (Bld) 2.5 % Normal 0-10 [facility] Comment on above: Performed By: #### L 500.2500, L503.7505, L100.0100, L501.4021 ####[facility] [address] [place], [address] Neutrophils/100 WBC (Bld) 92.2 % High 47-70 [facility] Comment on above: Performed By: #### L 500.2500, L503.7505, L100.0100, L501.4021 ####[facility] [address] [place], [address] Nucleated RBC (Bld) [#/Vol] 0 10*3/uL Normal 0-5 [facility] Comment on above: Performed By: #### L 500.2500, L503.7505, L100.0100, L501.4021 ####[facility] [address] [place], [address] Platelet mean volume (Bld) [Entitic vol] 10.2 fL Normal 6.2-12.0 [facility] Comment on above: Performed By: #### L 500.2500, L503.7505, L100.0100, L501.4021 ####[facility] [address] [place], [address] Platelets (Bld) [#/Vol] 395 10*3/uL Normal 150-450 [facility] Comment on above: Performed By: #### L 500.2500, L503.7505, L100.0100, L501.4021 ####[facility] [address] [place], [address] RBC (Bld) [#/Vol] 4.49 10*6/uL Low 4.6-6.[address] [facility] Comment on above: Performed By: #### L 500.2500, L503.7505, L100.0100, L501.4021 ####[facility] [address] [place], [address] RDW SD 48.9 fl High 35.1-43.9 [facility] Comment on above: Performed By: #### L 500.2500, L503.7505, L100.0100, L501.4021 ####[facility] [address] [place], [address] WBC (Bld) [#/Vol] 13.4 10*3/uL High 4.4-11.[address] [facility] Comment on above: Performed By: #### L 500.2500, L503.7505, L100.0100, L501.4021 ####[facility] [address] [place], [address] CNOVSPon 08-01-2024 CNOVSP Normal [facility] Carbon dioxide, total [Moles /volume] in Central venous bloodOrdered By: George Jackson on 08-01-2024 CO2 [Moles/Vol] 24.3 mmol/L 21.0-32.0 [facility] Chest PA and Lateralon 08-01 Chest PA and Lateral Normal [facility] Chloride assayOrdered By: Edmundo Jackson on 08-01-2024 Chloride [Moles/Vol] 104 mmol/L 98-108 [facility] Comprehensive metabolic 2000 panelon 08-01-2024 Albumin [Mass/Vol] 4.1 g/dL Normal 3.9-4.9 [facility] Comment on above: Order Comment: Speci men Type: BLOOD SPECIMENOrdering Facility: [facility] Address: [address] [place] [address] Performed By: #### 2 4323-8 ####[facility] [id number] [place] [address] [place] ALP [Catalytic activity/Vol] 133 U/L High 38-113 [facility] Comment on above: Order Comment: Speci men Type: BLOOD SPECIMENOrdering Facility: [facility] Address: [address] [place] [address] Performed By: #### 2 4323-8 ####[facility] [id number] [place] [address] [place] ALT [Catalytic activity/Vol] 11 U/L Normal 10-54 [facility] Comment on above: Order Comment: Speci men Type: BLOOD SPECIMENOrdering Facility: [facility] Address: [address] [place] [address] Performed By: #### 2 4323-8 ####[facility] [id number] [place] [address] [place] Anion gap [Moles/Vol] 8 mmol/L Normal 8-15 [facility] Comment on above: Order Comment: Speci men Type: BLOOD SPECIMENOrdering Facility: [facility] Address: [address] [place] [address] Performed By: #### 2 4323-8 ####[facility] [id number] [place] [address] [place] AST [Catalytic activity/Vol] 11 U/L Low 14-40 [facility] Comment on above: Order Comment: Speci men Type: BLOOD SPECIMENOrdering Facility: [facility] Address: [address] [place] [address] Performed By: #### 2 4323-8 ####[facility] [id number] [place] [address] [place] Bilirubin [Mass/Vol] 0.8 mg/dL Normal 0.2-1.3 [facility] Comment on above: Order Comment: Speci men Type: BLOOD SPECIMENOrdering Facility: [facility] Address: [address] [id number] Performed By: #### 2 4323-8 ####[facility] MILLTOWNCLIA [id number] [place] [address] [place] Calcium [Mass/Vol] 9.4 mg/dL Normal 8.5-10.2 [facility] Comment on above: Order Comment: Speci men Type: BLOOD SPECIMENOrdering Facility: [facility] Address: [address] [place] [address] Performed By: #### 2 4323-8 ####[facility] MILLTOWNCLIA [id number] [place] [address] [place] Chloride [Moles/Vol] 103 mmol/L Normal 98-107 [facility] Comment on above: Order Comment: Speci men Type: BLOOD SPECIMENOrdering Facility: [facility] Address: [address] [place] [address] Performed By: #### 2 4323-8 ####[facility] MILLWNCLIA [id number] [place] [address] [place] CO2 [Moles/Vol] 28 mmol/L Normal 22-30 [facility] Comment on above: Order Comment: Speci men Type: BLOOD SPECIMENOrdering Facility: [facility] Address: [address] [place] [address] Performed By: #### 2 4323-8 ####[facility] MILLTOWNCLIA [id number] [place] [address] [place] Creatinine [Mass/Vol] 0.81 mg/dL Normal 0.73-1.22 [facility] Comment on above: Order Comment: Speci men Type: BLOOD SPECIMENOrdering Facility: [facility] Address: [address] [place] [address] Performed By: #### 2 4323-8 ####[facility] MILLTOWNCLIA [id number] [place] [address] [place] Creatinine and Glomerular filtration rate.predicted panel (S/P/Bld) 94 mL/min/1.73m??? Normal >=60 [facility] Comment on above: Order Comment: Mila pichardo Type: BLOOD SPECIMENOrdering Facility: [facility] Address: [address] [place] [address] Result Comment: Kimberley mated Glomerular Filtration Rate (eGFR) is calculated using the 2020 CKD-EPI creatinine equation. This equation utilizes serum creatinine, sex, and age as parameters. The creatinine assay has traceable calibration to isotope dilution-mass spectrometry. Refer to KDIGO guidelines for clinical interpretation. In patients with unstable renal function, e.g. those with acute kidney injury, the eGFR may not accurately reflect actual GFR. Performed By: #### 2 4323-8 ####[facility] [id number] [place] [address] [place] Glucose [Mass/Vol] 164 mg/dL High 74-99 [facility] Comment on above: Order Comment: Mila pichardo Type: BLOOD SPECIMENOrdering Facility: [facility] Address: [address] [place] [address] Result Comment: The [place] Diabetes Association (ADA) provides guidance for cutoff values for fasting glucose and random glucose. The ADA defines fasting as no caloric intake for at least 8 hours. Fasting plasma glucose results between 100 to 125 mg/dL indicate increased risk for diabetes (prediabetes).Fasting plasma glucose results greater than or equal to 126 mg/dL meet the criteria for diagnosis of diabetes. In the absence of unequivocal hyperglycemia, results should be confirmed by repeat testing. In a patient with classic symptoms of hyperglycemia or hyperglycemic crisis, random plasma glucose results greater than or equal to 200 mg/dL meet the criteria for diagnosis of diabetes.Reference: Standards of Medical Care in Diabetes 2016, [place] [employer]. Diabetes Care. 2016.39(Suppl 1). Performed By: #### 2 4323-8 ####[facility] [id number] [place] [address] [place] Potassium [Moles/Vol] 4.0 mmol/L Normal 3.7-5.1 [facility] Comment on above: Order Comment: Speci men Type: BLOOD SPECIMENOrdering Facility: [facility] Address: [address] [place] [address] Performed By: #### 2 4323-8 ####[facility] BEACHWNCLIA [id number] [place] [address] [place] Protein [Mass/Vol] 6.3 g/dL Normal 6.3-8.0 [facility] Comment on above: Order Comment: Speci men Type: BLOOD SPECIMENOrdering Facility: [facility] Address: [address] [place] [address] Performed By: #### 2 4323-8 ####[facility] [id number] [place] [address] [place] Sodium [Moles/Vol] 139 mmol/L Normal 136-144 [facility] Comment on above: Order Comment: Speci men Type: BLOOD SPECIMENOrdering Facility: [facility] Address: [address] [place] [address] Performed By: #### 2 4323-8 ####[facility] [id number] [place] [address] [place] Urea nitrogen [Mass/Vol] 14 mg/dL Normal 9-24 [facility] Comment on above: Order Comment: Speci men Type: BLOOD SPECIMENOrdering Facility: [facility] Address: [address] [place] [address] Performed By: #### 2 4323-8 ####[facility] [id number] [place] [address] [place] Emergency Department Summary on 08-01-2024 Emergency Department Summary Normal [facility] Eosinophil percentageOrdered By: George Jackson on 08-01-2024 Eosinophils/100 WBC (Bld) 0.7 % 0-5 [facility] Erythrocyte distribution wid th (RBC) [Ratio]Ordered By: George Jackson on 08-01-2024 Erythrocyte distribution width (RBC) [Entitic vol] 48.9 fL High 35.1-43.9 [facility] Erythrocyte distribution wid th ratioOrdered By: George Jackson on 08-01-2024 Erythrocyte distribution width (RBC) [Ratio] 17.8 % High 11.6-14.6 [facility] GFR/1.73 sq M.predicted anibal g non-blacks MDRD (S/P/Bld) [Vol rate/Area]Ordered By: George Jackson on 08-01-2024 Estimated GFR (MDRD) Non-Af Amer 97 >60 [facility] Comment on above: mL/min/1.73m2 CKD-EP I Creatinine Equation (2020) H AND P Exam - Hospitaliston 08-01-2024 H&P Exam - Hospitalist Normal [facility] Hematocrit Auto (Bld) [Volum e fraction]Ordered By: George Jackson on 08-01-2024 Hematocrit (Bld) [Volume fraction] 34.5 % Low 40-54 [facility] Hemoglobin measurementOrdere d By: George Jackson on 08-01-2024 Hemoglobin (Bld) [Mass/Vol] 10.1 g/dL Low 13.0-16.5 [facility] Immature granulocytes/100 WB C Auto (Bld)Ordered By: George Jackson on 08-01-2024 Immature granulocytes/100 WBC (Bld) 0.800 % 0.0-0.9 [facility] Comment on above: IG% - Immature Granu locytes (promyelocytes, myelocytes and metamyelocytes) > 1% indicates that a LEFT SHIFT is Present. L501.4021on 08-01-2024 Trop T High Sen 39 ng/L High <=22 [facility] Comment on above: Performed By: #### L 500.2500, L503.7505, L100.0100, L501.4021 ####[facility] [address] [place], [address] L503.7505on 08-01-2024 Natriuretic peptide B (Bld) [Mass/Vol] 1468 pg/mL High <=900 [facility] Comment on above: Result Comment: Hear t Failure Unlikely: < 300 pg/mLHeart Failure Likely< 50 Years: > 450 pg/mL50-75 Years: > 900 pg/mL>75 Years: > 1800 pg/mL Performed By: #### L 500.2500, L503.7505, L100.0100, L501.4021 ####[facility] [address] [place], [address] Lymphocytes Auto (Unsp spec) [#/Vol]Ordered By: George Jackson on 08-01-2024 Lymphocytes (Bld) [#/Vol] 0.44 10*3/uL Low 0.83-4.5 1 [facility] Lymphocytes/100 WBC Auto (Un sp spec)Ordered By: George Jackson on 08-01-2024 Lymphocytes/100 WBC (Bld) 3.3 % Low 19-41 [facility] MCV (mean corpuscular volume ) determinationOrdered By: George Jackson on 08-01-2024 MCV (RBC) [Entitic vol] 76.8 fL Low 80-94 [facility] Mean corpuscular hemoglobin (MCH) determinationOrdered By: George Jackson on 08-01-2024 MCH (RBC) [Entitic mass] 22.5 pg Low 27.0-32.0 [facility] Mean corpuscular hemoglobin concentration (MCHC) determinationOrdered By: George Jackson on 08-01-2024 MCHC (RBC) [Mass/Vol] 29.3 g/dL Low 32-36 [facility] Mean platelet volume determi nationOrdered By: George Jackson on 08-01-2024 Platelet mean volume (Bld) [Entitic vol] 10.2 fL 6.2-12.0 [facility] Monocyte percentageOrdered B y: George Jackson on 08-01-2024 Monocytes/100 WBC (Bld) 2.5 % 0-10 [facility] Natriuretic peptide.B prohor lor N-Terminal [Mass/Vol]Ordered By: George Jackson on 08-01-2024 Natriuretic peptide B (Bld) [Mass/Vol] 1468 pg/mL High <900 [facility] Comment on above: Heart Failure Unlike ly: < 300 pg/mLHeart Failure Likely< 50 Years: > 450 pg/mL50-75 Years: > 900 pg/mL>75 Years: > 1800 pg/mL Natriuretic peptide.B prohormone N-Terminal [Mass/volume] in Serum or Plasma 1468 pg/mL High <900 [facility] Natriuretic peptide.B prohor lor N-Terminal [Mass/volume] in Serum or PlasmaOrdered By: George Jackson on 08-01-2024 Natriuretic peptide.B prohormone N-Terminal [Mass/Vol] 1468 pg/mL High <900 [facility] Comment on above: Heart Failure Unlike ly: < 300 pg/mLHeart Failure Likely< 50 Years: > 450 pg/mL50-75 Years: > 900 pg/mL>75 Years: > 1800 pg/mL Neutrophil percentageOrdered By: George Jackson on 08-01-2024 Neutrophils/100 WBC (Bld) 92.2 % High 47-70 [facility] Nucleated red blood cell per centageOrdered By: George Jackson on 08-01-2024 Nucleated RBC/100 WBC (Bld) [Ratio] 0 % 0-5 [facility] Platelet countOrdered By: Edmundo Jackson on 08-01-2024 Platelets (Bld) [#/Vol] 395 10*3/uL 150-450 [facility] Potassium (Unsp spec) [Mass/ Vol]Ordered By: George Jackson on 08-01-2024 Potassium [Moles/Vol] 4.5 mmol/L 3.3-5.1 [facility] RBC Auto (Bld) [#/Vol]Ordere d By: George Jackson on 08-01-2024 RBC (Bld) [#/Vol] 4.49 10*6/uL Low 4.6-6.[address] [facility] Serum creatinine measurement (mass/volume)Ordered By: George Jackson on 08-01-2024 Creatinine [Mass/Vol] 0.73 mg/dL 0.70-1.20 [facility] Serum glucose measurement (m ass/volume)Ordered By: George Jackson on 08-01-2024 Glucose [Mass/Vol] 168 mg/dL High 70-99 [facility] Serum or plasma calcium yvonne urement (mass/volume)Ordered By: George Jackson on 08-01-2024 Calcium [Mass/Vol] 8.8 mg/dL 7.6-11.0 [facility] Serum or plasma urea nitroge n measurement (mass/volume)Ordered By: George Jackson on 08-01-2024 Urea nitrogen [Mass/Vol] 14 mg/dL 4-19 [facility] Sodium levelOrdered By: George Jackson on 08-01-2024 Sodium [Moles/Vol] 139 mmol/L 133-145 [facility] Troponin T.cardiac High sens itivity method [Mass/Vol]Ordered By: George Jackson on 08-01-2024 Troponin T High Sensitivity 39 ng/L High <22 [facility] Troponin T.cardiac [Mass/volume] in Serum or Plasma by High sensitivity method 39 ng/L High <22 [facility] Troponin T.cardiac [Mass/vol ume] in Serum or Plasma by High sensitivity methodOrdered By: George Jackson on 08-01-2024 Troponin T.cardiac High sensitivity method [Mass/Vol] 39 ng/L High <22 [facility] White blood cell (WBC) count Ordered By: George Jackson on 08-01-2024 WBC (Bld) [#/Vol] 13.4 10*3/uL High 4.4-11.[address] [facility] XR CHEST 2V FRONTAL/LATon XR CHEST 2V FRONTAL/LAT Normal [facility] XR Chest PA and Lateralon IMPRESSION: Interval development of bilateral pleural fluid collections and basal atelectasis Probable developing left lower lobe pneumonia Cardiomegaly. Follow-up recommended Wheel Adjuster: AWAIS Transcribe Date/Time: Aug 01 2024 3:01P Dictated by : KAMI THOMAS MD This examination was interpreted and the report reviewed and electronically signed by: KAMI THOMAS MD on Aug 01 2024 3:03PM [facility] DIVISION OF RADIOLOGY * * *Final Report* * * DATE OF EXAM: Aug 01 2024 10:55AM [id number] - XR CHEST 2V FRONTAL/LAT / PROCEDURE REASON: Multiple myeloma not having achieved remission (HCC) * * * * Physician Interpretation * * * * EXAMINATION: CHEST RADIOGRAPH (2 VIEW FRONTAL & LATERAL) CLINICAL HISTORY: Multiple myeloma not having achieved remission (HCC) MQ: XC2_6 EXAM DATE/TIME: 08/01/2024 10:55 AM COMPARISON: 03/11/2024 RESULT: Lines, tubes, and devices: None. Lungs and pleura: Mild prominence of the central bronchovascular markings. Interval development of small bilateral pleural fluid collections and basal atelectasis. Retrocardiac density on the left likely represents developing left lower lobe pneumonia. No pneumothorax. No significant collapse. Cardiomediastinal silhouette: Mildly enlarged cardiomediastinal silhouette. Bones and soft tissues: Unremarkable. DIVISION [facility] RADIOLOGY [facility] * * *Final Report* * * DATE OF EXAM: Aug 01 2024 10:55AM [id number] - XR CHEST 2V FRONTAL/LAT / PROCEDURE REASON: Multiple myeloma not having achieved remission (HCC) * * * * Physician Interpretation * * * * EXAMINATION: CHEST RADIOGRAPH (2 VIEW FRONTAL & LATERAL) CLINICAL HISTORY: Multiple myeloma not having achieved remission (HCC) MQ: XC2_6 EXAM DATE/TIME: 08/01/2024 10:55 AM COMPARISON: 03/11/2024 RESULT: Lines, tubes, and devices: None. Lungs and pleura: Mild prominence of the central bronchovascular markings. Interval development of small bilateral pleural fluid collections and basal atelectasis. Retrocardiac density on the left likely represents developing left lower lobe pneumonia. No pneumothorax. No significant collapse. Cardiomediastinal silhouette: Mildly enlarged cardiomediastinal silhouette. Bones and soft tissues: Unremarkable. IMPRESSION IMPRESSION: Interval development of bilateral pleural fluid collections and basal atelectasis Probable developing left lower lobe pneumonia Cardiomegaly. Follow-up recommended Wheel Adjuster: PSCB Transcribe Date/Time: Aug 01 2024 3:01P Dictated by : KAMI THOMAS MD This examination was interpreted and the report reviewed and electronically signed by: KAMI THOMAS MD on Aug 01 2024 3:03PM EST [facility] Radiology Study observation (narrative) Natalie Damon XR Chest PA and LateralOrder ed By: [facility] Provider on 08-01-2024 [facility] ALP [Catalytic activity/Vol] Ordered By: Jessenia Yoder on 07-27-2024 Serum or plasma alkaline phosphatase measurement 127 U/L 40-129 [facility] ALT [Catalytic activity/Vol] Ordered By: Jessenia Yoder on 07-27-2024 Serum or plasma alanine aminotransferase (ALT) measurement 11 U/L <47 [facility] Albumin [Mass/Vol]Ordered By : Jessenia Yoder on 07-27-2024 Serum or plasma albumin measurement (mass/volume) 4.1 g/dL 3.4-4.8 [facility] Albumin/Globulin [Mass ratio ]Ordered By: Jessenia Yoder 07-27-2024 Serum or plasma albumin/globulin mass ratio 1.6 RATIO 0.9-2.4 [facility] Anion gap [Moles/Vol]Ordered By: Jessenia Yoder 07-27-2024 Anion gap in Serum or Plasma 12 5-15 [facility] Anion gap in Serum or Plasma Ordered By: Jessenia Yoder 07-27-2024 Anion gap [Moles/Vol] 12 mmol/L 5- [facility] BUN/creatinine ratioOrdered By: Jessenia Yoder 07-27-2024 Urea nitrogen/Creatinine [Mass ratio] 17.5 mg/mg 10-20 [facility] BUN/creatinine ratio 17.5 RATIO 10-20 [facility] Bilirubin, totalOrdered By: Jessenia Yoder 07-27-2024 Bilirubin [Mass/Vol] 0.75 mg/dL 0.00-1.30 [facility] Bilirubin, total 0.75 mg/dL 0.00-1.30 [facility] Calcium [Mass/Vol]Ordered By : Jessenia Yoder 07-27-2024 Serum or plasma calcium measurement (mass/volume) 9.1 mg/dL 7.6-11.0 [facility] Calculated very low density lipoprotein (VLDL) cholesterol measurementOrdered By: Jessenia Yoder 07-27-2024 Calculated very low density lipoprotein (VLDL) cholesterol measurement 12 mg/dL - [facility] VLDL Cholesterol 12 mg/dL -40 [facility] Calculated very low density lipoprotein (VLDL) cholesterol measurement 12 mg/dL [facility] Carbon dioxide, total [Moles /volume] in Central venous bloodOrdered By: Jessenia Yoder 07-27-2024 CO2 [Moles/Vol] 26.7 mmol/L 21.0-32.0 [facility] Carbon dioxide, total [Moles/volume] in Central venous blood 26.7 mmol/L 21.0-32.0 [facility] Chloride assayOrdered By: Amanda Yoder on 07-27-2024 Chloride [Moles/Vol] 104 mmol/L 98-108 [facility] Chloride assay 104 mmol/L 98-108 [facility] Cholesterol [Mass/Vol]Ordere d By: Jessenia Yoder on 07-27-2024 Serum or plasma cholesterol measurement (mass/volume) 113 mg/dL <201 [facility] Cholesterol in HDL [Mass/Vol ]Ordered By: Jessenia Yoder on 07-27-2024 Serum or plasma cholesterol in HDL measurement (mass/volume) 39 mg/dL Low >40 [facility] Comprehensive Metabolic Prof ilon 07-27-2024 Albumin [Mass/Vol] 4.1 g/dL Normal 3.4-4.8 [facility] Comment on above: Performed By: #### L 500.4050, L501.9985, L500.4100 ####[facility] [address] [place], [address] Albumin/Globulin [Mass ratio] 1.6 {ratio} Normal 0.9-2.4 [facility] Comment on above: Performed By: #### L 500.4050, L501.9985, L500.4100 ####[facility] [address] [place], [address] ALK PHOS 127 U/L Normal 40-129 [facility] Comment on above: Performed By: #### L 500.4050, L501.9985, L500.4100 ####[facility] [address] [place], [address] ALT [Catalytic activity/Vol] 11 U/L Normal <=46 [facility] Comment on above: Performed By: #### L 500.4050, L501.9985, L500.4100 ####[facility] [address] [place], [address] AST [Catalytic activity/Vol] 17 U/L Normal <=37 [facility] Comment on above: Performed By: #### L 500.4050, L501.9985, L500.4100 ####[facility] [address] [place], [address] Bilirubin [Mass/Vol] 0.75 mg/dL Normal 0.00-1.30 [facility] Comment on above: Performed By: #### L 500.4050, L501.9985, L500.4100 ####[facility] [address] [place], [address] BUN/CRE 17.5 RATIO Normal 10-20 [facility] Comment on above: Performed By: #### L 500.4050, L501.9985, L500.4100 ####[facility] [address] [place], [address] Calcium [Mass/Vol] 9.1 mg/dL Normal 7.6-11.0 [facility] Comment on above: Performed By: #### L 500.4050, L501.9985, L500.4100 ####[facility] [address] [place], [address] Chloride [Moles/Vol] 104 mmol/L Normal 98-108 [facility] Comment on above: Performed By: #### L 500.4050, L501.9985, L500.4100 ####[facility] [address] [place], [address] CO2 [Moles/Vol] 26.7 mmol/L Normal 21.0-32.0 [facility] Comment on above: Performed By: #### L 500.4050, L501.9985, L500.4100 ####[facility] [address] [place], [address] Creatinine [Mass/Vol] 0.77 mg/dL Normal 0.70-1.20 [facility] Comment on above: Performed By: #### L 500.4050, L501.9985, L500.4100 ####[facility] [address] [place], [address] GAP 12 Normal 5-15 [facility] Comment on above: Performed By: #### L 500.4050, L501.9985, L500.4100 ####[facility] [address] [place], [address] GFR/1.73 sq M.predicted among non-blacks MDRD (S/P/Bld) [Vol rate/Area] 95 mL/min/{1.73_m2} Normal >60 [facility] Comment on above: Result Comment: mL/m in/1.73m2 CKD-EPI Creatinine Equation (2020) Performed By: #### L 500.4050, L501.9985, L500.4100 ####[facility] [address] [place], [address] Globulin (S) [Mass/Vol] 2.5 g/dL Normal 2.2-4.2 [facility] Comment on above: Performed By: #### L 500.4050, L501.9985, L500.4100 ####[facility] [address] [place], [address] Glucose [Mass/Vol] 124 mg/dL High 70-99 [facility] Comment on above: Performed By: #### L 500.4050, L501.9985, L500.4100 ####[facility] [address] [place], [address] Potassium [Moles/Vol] 4.6 mmol/L Normal 3.3-5.1 [facility] Comment on above: Performed By: #### L 500.4050, L501.9985, L500.4100 ####[facility] [address] [place], [address] Sodium [Moles/Vol] 142 mmol/L Normal 133-145 [facility] Comment on above: Performed By: #### L 500.4050, L501.9985, L500.4100 ####[facility] [address] [place], [address] T PROT 6.6 g/dL Normal 5.9-8.4 [facility] Comment on above: Performed By: #### L 500.4050, L501.9985, L500.4100 ####[facility] [address] [place], [address] Urea nitrogen [Mass/Vol] 14 mg/dL Normal 4-19 [facility] Comment on above: Performed By: #### L 500.4050, L501.9985, L500.4100 ####[facility] [address] [place], [address] Creatinine [Mass/Vol]Ordered By: Jessenia Yoder on 07-27-2024 Serum creatinine measurement (mass/volume) 0.77 mg/dL 0.70-1.20 [facility] GFR/1.73 sq M.predicted anibal g non-blacks MDRD (S/P/Bld) [Vol rate/Area]Ordered By: Jessenia Yoder on 07-27-2024 Estimated GFR (MDRD) Non-Af Amer 95 >60 [facility] Comment on above: mL/min/1.73m2 CKD-EP I Creatinine Equation (2020) Glomerular filtration rate (GFR) estimation/1.73 sq m using serum, plasma, or whole b 95 >60 [facility] Glomerular filtration rate ( GFR) estimation/1.73 sq m using serum, plasma, or whole bOrdered By: Jessenia Yoder on 07-27-2024 GFR/1.73 sq M.predicted among non-blacks MDRD (S/P/Bld) [Vol rate/Area] 95 mL/min/{1.73_m2} >60 [facility] Comment on above: mL/min/1.73m2 CKD-EP I Creatinine Equation (2020) Glucose [Mass/Vol]Ordered By : Jessenia Yoder on 07-27-2024 Serum glucose measurement (mass/volume) 124 mg/dL High 70-99 [facility] HbA1c (Bld) [Mass fraction]O rdered By: Jessenia Yoder on 07-27-2024 Hemoglobin A1c percentage 6.7 % >5.7 [facility] Hemoglobin A1con 07-27-2024 HbA1c (Bld) [Mass fraction] 6.7 % Normal <=5.6 [facility] Comment on above: Performed By: #### L 500.4050, L501.9985, L500.4100 ####[facility] [address] [place], [address] Hemoglobin A1c percentageOrd ered By: Jessenia Yoder on 07-27-2024 HbA1c (Bld) [Mass fraction] 6.7 % >5.7 [facility] LDL calc ser/plasOrdered By: Jessenia Yoder on 07-27-2024 Cholesterol in LDL [Mass/Vol] 61 mg/dL [facility] Comment on above: Goaqhnuffz=674-167 m g/dL & Higher Byyg=798 mg/dL or greater LDL Cholesterol, Calculated 61 mg/dL [facility] Comment on above: Vpcugxcwyt=912-678 m g/dL & Higher Ckbu=614 mg/dL or greater LDL calc ser/plas 61 mg/dL [facility] Laboratory - Chemistry and C hemistry - challengeOrdered By: Jessenia Yoder on 07-27-2024 AST [Catalytic activity/Vol] 17 U/L <38 [facility] Lipid Profileon 07-27-2024 CHOL:HDL 2.88 Normal [facility] Comment on above: Performed By: #### L 500.4050, L501.9985, L500.4100 ####[facility] [address] [place], [address] Cholesterol [Mass/Vol] 113 mg/dL Normal <=200 [facility] Comment on above: Result Comment: Chol esterol level, Desirable <200 mg/dLBorderline high cholesterol 200-239 mg/dLHigh cholesterol >=240 mg/dLRecommendations of the NCEP Adult Treatment Panel for thefollowing risk-cutoff thresholds for the [place] [facility]. Performed By: #### L 500.4050, L501.9985, L500.4100 ####[facility] [address] [place], [address] Cholesterol in HDL [Mass/Vol] 39 mg/dL Low [facility] Comment on above: Result Comment: Rachna onal Cholesterol Education Program (NCEP) guidelines:<40 mg/dL: Low HDL-cholesterol (major risk factor for CHD)>= 60 mg/dL: High HDL-cholesterol (negative risk factor forCHD)HDL-cholesterol is affected by a number of factors, e.g.smoking, exercise, hormones, sex and age. Performed By: #### L 500.4050, L501.9985, L500.4100 ####[facility] [address] [place], [address] Cholesterol in LDL [Mass/Vol] 61 mg/dL Normal [facility] Comment on above: Result Comment: Bord nzhyvv=181-218 mg/dL Higher Smes=496 mg/dL or greater Performed By: #### L 500.4050, L501.9985, L500.4100 ####[facility] [address] [place], [address] Cholesterol in VLDL [Mass/Vol] 12 mg/dL Normal 5-40 [facility] Comment on above: Performed By: #### L 500.4050, L501.9985, L500.4100 ####[facility] [address] [place], [address] Triglyceride [Mass/Vol] 62 mg/dL Normal [facility] Comment on above: Result Comment: The drugs N-Acetylcysteine and Metamizole may falselydepress this assay.Normal range: <150 mg/dLBorderline High: 150-199 mg/dLHigh: 200-499 mg/dLVery High: >500 mg/dL Performed By: #### L 500.4050, L501.9985, L500.4100 ####[facility] [address] [place], [address] No Panel InformationOrdered By: Jessenia Yoder on 07-27-2024 17 U/L <38 [facility] Potassium (Unsp spec) [Mass/ Vol]Ordered By: Jessenia Yoder on 07-27-2024 Potassium [Moles/Vol] 4.6 mmol/L 3.3-5.1 [facility] Potassium measurement (mass/volume) 4.6 mmol/L 3.3-5.1 [facility] Potassium measurement (mass/ volume)Ordered By: Jessenia Yoder on 07-27-2024 Potassium (Unsp spec) [Mass/Vol] 4.6 mmol/L 3.3-5.1 [facility] Screening total cholesterol/ high density lipoprotein (HDL) cholesterol ratioOrdered By: Jessenia Yoder on 07-27-2024 Cholesterol.total/Choleste rol in HDL [Mass ratio] 2.88 {ratio} [facility] Screening total cholesterol/high density lipoprotein (HDL) cholesterol ratio 2.88 [facility] Serum creatinine measurement (mass/volume)Ordered By: Jessenia Yoder on 07-27-2024 Creatinine [Mass/Vol] 0.77 mg/dL 0.70-1.20 [facility] Serum globulin measurementOr dered By: Jessenia Yoder on 07-27-2024 Globulin (S) [Mass/Vol] 2.5 g/dL 2.2-4.2 [facility] Serum globulin measurement 2.5 g/dL 2.2-4.2 [facility] Serum glucose measurement (m ass/volume)Ordered By: Jessenia Yoder on 07-27-2024 Glucose [Mass/Vol] 124 mg/dL High 70-99 [facility] Serum or plasma alanine blank otransferase (ALT) measurementOrdered By: Jessenia Yoder 07-27-2024 ALT [Catalytic activity/Vol] 11 U/L <47 [facility] Serum or plasma albumin yvonne urement (mass/volume)Ordered By: Jessenia Yoder 07-27-2024 Albumin [Mass/Vol] 4.1 g/dL 3.4-4.8 [facility] Serum or plasma albumin/glob ulin mass ratioOrdered By: Jessenia Yoder 07-27-2024 Albumin/Globulin [Mass ratio] 1.6 {ratio} 0.9-2.4 [facility] Serum or plasma alkaline page sphatase measurementOrdered By: Jessenia Yoder on 07-27-2024 ALP [Catalytic activity/Vol] 127 U/L 40-129 [facility] Serum or plasma calcium yvonne urement (mass/volume)Ordered By: Jessenia Yoder 07-27-2024 Calcium [Mass/Vol] 9.1 mg/dL 7.6-11.0 [facility] Serum or plasma cholesterol in HDL measurement (mass/volume)Ordered By: Jessenia Yoder on 07-27-2024 Cholesterol in HDL [Mass/Vol] 39 mg/dL Low >40 [facility] Comment on above: National Cholesterol Education Program (NCEP) guidelines:<40 mg/dL: Low HDL-cholesterol (major risk factor for CHD)>= 60 mg/dL: High HDL-cholesterol (negative risk factor for CHD)HDL-cholesterol is affected by a number of factors, e.g. smoking, exercise, hormones, sex and age. Serum or plasma cholesterol measurement (mass/volume)Ordered By: Jessenia Yoder on 07-27-2024 Cholesterol [Mass/Vol] 113 mg/dL <201 [facility] Comment on above: Cholesterol level, D esirable <200 mg/dLBorderline high cholesterol 200-239 mg/dLHigh cholesterol >=240 mg/dLRecommendations of the NCEP Adult Treatment Panel for the following risk-cutoff thresholds for the [place] population. Serum or plasma urea nitroge n measurement (mass/volume)Ordered By: Jessenia Yoder 07-27-2024 Urea nitrogen [Mass/Vol] 14 mg/dL 4-19 [facility] Sodium levelOrdered By: Anh Yoder on 07-27-2024 Sodium [Moles/Vol] 142 mmol/L 133-145 [facility] Sodium level 142 mmol/L 133-145 [facility] Total proteinOrdered By: Carina Yoder on 07-27-2024 Protein [Mass/Vol] 6.6 g/dL 5.9-8.4 [facility] Total protein 6.6 g/dL 5.9-8.4 [facility] Triglycerides measurementOrd ered By: Jessenia Yoder on 07-27-2024 Triglyceride [Mass/Vol] 62 mg/dL <199 [facility] Comment on above: The drugs N-Acetylcy steine and Metamizole may falsely depress this assay. Normal range: <150 mg/dLBorderline High: 150-199 mg/dLHigh: 200-499 mg/dLVery High: >500 mg/dL Triglycerides measurement 62 mg/dL <199 [facility] Urea nitrogen [Mass/Vol]Orde red By: Jessenia Yoder on 07-27-2024 Serum or plasma urea nitrogen measurement (mass/volume) 14 mg/dL 08-11 [facility] Internal Medicine Office Vis iton 07-18-2024 Internal Medicine Office Visit Normal [facility] CNOVon 07-16-2024 CNOV Normal [facility] CNPNon 07-16-2024 CNPN Normal [facility] Positron emission tomography scan reportOrdered By: Preston Hung on 07-05-2024 PT Unspecified body region [facility] [address] [place], [place] [address] PET/CT Tumor Base -Thigh Subs MR#: [id number] Acct: [id number] Name: CYN JAMES JrShannon Rep #: [id number] : 1950 M 74 From: Karthik Hung MD PCP: Dr. Krishna Mcdaniel, DO Status: RE G CLI Study:PET/CT Tumor Base -Thigh Subs Date of E xam: 07/03/24 Exam# [id number] Ordering Dr: Cher Booker DO EXAM: PET/CT TUMOR BASE -THIGH SUBS CLINICAL HISTORY: HEMATOLOGIC MALIGNANCY; MONITOR COMPARISON: PET-CT of 09/06/2022. TECHNIQUE: F-18 FDG PET-CT, from the skull base to the mid thighs. Dose: 13.89 mCi F-18 FDG intravenous. FINDINGS: Neck: No focus of abnormal hypermetabolic activity is seen. Chest: Small bilateral pleural effusions are noted. Compressive atelectasis adjacent to the right pleural effusion is seen, dependent. Abdomen pelvis: No concerning area of abnormal hypermetabolic activity is seen. Bones: No concerning area of abnormal hypermetabolic activity is seen. Additional: Prominent degenerative changes of the spine are seen. PET/PET/CT Tumor Base -Thigh Subs IMPRESSION: 1. Small bilateral pleural effusions, with compressive atelectasis adjacent to the right pleural fluid collection. 2. No concerning area of abnormal hypermetabolic activity is seen. Reading Location: [address] CC: Dr. Krishna Mcdaniel, DO; Dr. Katey Booker, DO ~ Wheel Adjuster: Signed [facility] B2 Microglob SerPl-mCncon Ppbs-5-Uvpajugsnalrn [Mass/Vol] 2.8 ug/mL Normal <3.1 [facility] Comment on above: Order Comment: Speci men Type: BLOOD SPECIMENOrdering Facility: [facility] Address: [address] [place] [address] Result Comment: Beta -2 Microglobulin test is performed using the [employer] immunoturbidimetric method. Results obtained with different methods or kits cannot be used interchangeably. Performed By: #### 1 952-1, 2885-2 ####[facility] LABCLIA [id number] [place] [address] [place] CBC W Auto Differential pane l (Bld)on 07-04-2024 Basophils (Bld) [#/Vol] 0.06 10*3/uL Normal <0.11 [facility] Comment on above: Order Comment: Speci men Type: BLOOD SPECIMENOrdering Facility: [facility] Address: [address] [place] [address] Performed By: #### 5 7021-8 ####[facility] [id number] [place] [address] [place] Basophils/100 WBC (Bld) 0.5 % Normal [facility] Comment on above: Order Comment: Speci men Type: BLOOD SPECIMENOrdering Facility: [facility] Address: [address] [place] [address] Performed By: #### 5 7021-8 ####[facility] [id number] [place] [address] [place] Differential cell count method Nom (Bld) Auto Normal [facility] Comment on above: Order Comment: Speci men Type: BLOOD SPECIMENOrdering Facility: [facility] Address: [address] [place] [address] Performed By: #### 5 7021-8 ####[facility] [id number] [place] [address] [place] Eosinophils (Bld) [#/Vol] 0.10 10*3/uL Normal <0.46 [facility] Comment on above: Order Comment: Speci men Type: BLOOD SPECIMENOrdering Facility: [facility] Address: [address] [place] [address] Performed By: #### 5 7021-8 ####[facility] [id number] [place] [address] [place] Eosinophils/100 WBC (Bld) 0.8 % Normal [facility] Comment on above: Order Comment: Speci men Type: BLOOD SPECIMENOrdering Facility: [facility] Address: [address] [place] [address] Performed By: #### 5 7021-8 ####[facility] [id number] [place] [address] [place] Erythrocyte distribution width (RBC) [Ratio] 17.5 % High 11.5-15.0 [facility] Comment on above: Order Comment: Speci men Type: BLOOD SPECIMENOrdering Facility: [facility] Address: [address] [place] [address] Performed By: #### 5 7021-8 ####[facility] [id number] [place] [address] [place] Hematocrit (Bld) [Volume fraction] 38.3 % Low 39.0-51.0 [facility] Comment on above: Order Comment: Speci men Type: BLOOD SPECIMENOrdering Facility: [facility] Address: [address] [place] [address] Performed By: #### 5 7021-8 ####[facility] [id number] [place] [address] [place] Hemoglobin (Bld) [Mass/Vol] 11.3 g/dL Low 13.0-17.0 [facility] Comment on above: Order Comment: Speci men Type: BLOOD SPECIMENOrdering Facility: [facility] Address: [address] [place] [address] Performed By: #### 5 7021-8 ####[facility] [id number] [place] [address] [place] Immature granulocytes (Bld) [#/Vol] 0.06 10*3/uL Normal <0.10 [facility] Comment on above: Order Comment: Speci men Type: BLOOD SPECIMENOrdering Facility: [facility] Address: [address] [place] [address] Performed By: #### 5 7021-8 ####[facility] [id number] [place] [address] [place] Immature granulocytes/100 WBC (Bld) 0.5 % Normal [facility] Comment on above: Order Comment: Speci men Type: BLOOD SPECIMENOrdering Facility: [facility] Address: [address] [place] [address] Performed By: #### 5 7021-8 ####[facility] [id number] [place] [address] [place] Lymphocytes (Bld) [#/Vol] 0.63 10*3/uL Low 1.00-4.0 0 [facility] Comment on above: Order Comment: Speci men Type: BLOOD SPECIMENOrdering Facility: [facility] Address: [address] [place] [address] Performed By: #### 5 7021-8 ####[facility] [id number] [place] [address] [place] Lymphocytes/100 WBC (Bld) 4.8 % Normal [facility] Comment on above: Order Comment: Speci men Type: BLOOD SPECIMENOrdering Facility: [facility] Address: [address] [place] [address] Performed By: #### 5 7021-8 ####[facility]ALSUMI [id number] [place] [address] [place] MCH (RBC) [Entitic mass] 23.3 pg Low 26.0-34.0 [facility] Comment on above: Order Comment: Speci men Type: BLOOD SPECIMENOrdering Facility: [facility] Address: [address] [place] [address] Performed By: #### 5 7021-8 ####[facility] [id number] [place] [address] [place] MCHC (RBC) [Mass/Vol] 29.5 g/dL Low 30.5-36.0 [facility] Comment on above: Order Comment: Speci men Type: BLOOD SPECIMENOrdering Facility: [facility] Address: [address] [place] [address] Performed By: #### 5 7021-8 ####[facility] [id number] [place] [address] [place] MCV (RBC) [Entitic vol] 79.0 fL Low 80.0-100.0 [facility] Comment on above: Order Comment: Speci men Type: BLOOD SPECIMENOrdering Facility: [facility] Address: [address] [place], [place] [address] Performed By: #### 5 7021-8 ####[facility] [id number] [place] [address] [place] Monocytes (Bld) [#/Vol] 0.61 10*3/uL Normal <0.87 [facility] Comment on above: Order Comment: Speci men Type: BLOOD SPECIMENOrdering Facility: [facility] Address: [address] [place] [address] Performed By: #### 5 7021-8 ####[facility] [id number] [place] [address] [place] Monocytes/100 WBC (Bld) 4.7 % Normal [facility] Comment on above: Order Comment: Speci men Type: BLOOD SPECIMENOrdering Facility: [facility] Address: [address] [place] [address] Performed By: #### 5 7021-8 ####[facility] [id number] [place] [address] [place] Neutrophils (Bld) [#/Vol] 11.54 10*3/uL High 1.45-7. 50 [facility] Comment on above: Order Comment: Speci men Type: BLOOD SPECIMENOrdering Facility: [facility] Address: [address] [place] [address] Performed By: #### 5 7021-8 ####[facility] [id number] [place] [address] [place] Neutrophils/100 WBC (Bld) 88.7 % Normal [facility] Comment on above: Order Comment: Speci men Type: BLOOD SPECIMENOrdering Facility: [facility] Address: [address] [place] [address] Performed By: #### 5 7021-8 ####[facility] [id number] [place] [address] [place] Nucleated RBC (Bld) [#/Vol] 10*3/uL Normal <0.01 [facility] Comment on above: Order Comment: Speci men Type: BLOOD SPECIMENOrdering Facility: [facility] Address: [address] [place] [address] Performed By: #### 5 7021-8 ####[facility] JENIFER [id number] [place] [address] [place] Nucleated RBC/100 WBC (Bld) [Ratio] 0.0 /100 WBC Normal [facility] Comment on above: Order Comment: Speci men Type: BLOOD SPECIMENOrdering Facility: [facility] Address: [address] [place] [address] Performed By: #### 5 7021-8 ####[facility] YANDELJaylenNCFARAZ [id number] [place] [address] [place] Platelet mean volume (Bld) [Entitic vol] 10.0 fL Normal 9.0-12.7 [facility] Comment on above: Order Comment: Speci men Type: BLOOD SPECIMENOrdering Facility: [facility] Address: [address] [place] [address] Performed By: #### 5 7021-8 ####[facility] YANDELEATONELSI [id number] [place] [address] [place] Platelets (Bld) [#/Vol] 468 10*3/uL High 150-400 [facility] Comment on above: Order Comment: Speci men Type: BLOOD SPECIMENOrdering Facility: [facility] Address: [address] [place] [address] Performed By: #### 5 7021-8 ####[facility] [id number] [place] [address] [place] RBC (Bld) [#/Vol] 4.85 10*6/uL Normal 4.20-6.00 [facility] Comment on above: Order Comment: Speci men Type: BLOOD SPECIMENOrdering Facility: [facility] Address: [address] [place] [address] Performed By: #### 5 7021-8 ####[facility]TON[facility] BEACHWNCLIA [id number] [place] [address] [place] WBC (Bld) [#/Vol] 13.00 10*3/uL High 3.70-11.00 [facility] Comment on above: Order Comment: Speci men Type: BLOOD SPECIMENOrdering Facility: [facility] Address: [address] [place] [address] Performed By: #### 5 7021-8 ####[facility] [id number] [place] [address] [place] CNOVSPon 07-04-2024 CNOVSP Normal [facility] CNPNon 07-04-2024 CNPN Normal [facility] Comprehensive metabolic 2000 panelon 07-04-2024 Albumin [Mass/Vol] 4.3 g/dL Normal 3.9-4.9 [facility] Comment on above: Order Comment: Speci men Type: BLOOD SPECIMENOrdering Facility: [facility] Address: [address] [place] [address] Performed By: #### 2 4323-8, 2532-0 ####[facility] [id number] [place] [address] [place]#### 47246-7, 2276-4 ####[facility] LABCLIA [id number] [place] [address] [place] ALP [Catalytic activity/Vol] 131 U/L High 38-113 [facility] Comment on above: Order Comment: Speci men Type: BLOOD SPECIMENOrdering Facility: [facility] Address: [address] [place] [address] Performed By: #### 2 4323-8, 2532-0 ####[facility]IAL[facility] [id number] [address] [place]#### 87141-3, 2275-4 ####[facility] LABCLIA [id number] [place] [address] [place] ALT [Catalytic activity/Vol] 12 U/L Normal 10-54 [facility] Comment on above: Order Comment: Speci men Type: BLOOD SPECIMENOrdering Facility: [facility] Address: [facility] [place] [address] Performed By: #### 2 4323-8, 2-0 ####[facility] MILLTOWNCLIA [id number] [place] [address] [place]#### 77909-9, 2275- ####[facility] LABCLIA [id number] [place] [id number] [place] Anion gap [Moles/Vol] 10 mmol/L Normal 8-15 [facility] Comment on above: Order Comment: Speci men Type: BLOOD SPECIMENOrdering Facility: [facility] Address: [address] [place] [address] Performed By: #### 2 4323-8, 2531-0 ####[facility] MILLTOWNCLIA [id number] [place] [address] [place]#### 50574-3, 2275- ####[facility] LABCLIA [id number] [place] [id number] [place] AST [Catalytic activity/Vol] 14 U/L Normal 14-40 [facility] Comment on above: Order Comment: Speci men Type: BLOOD SPECIMENOrdering Facility: [facility] Address: [address] [place] [address] Performed By: #### 2 4323-8, 2532-0 ####[facility] MILLTOWNCLIA [id number] [place] [address] [place]#### 00255-8, 2275-4 ####[facility] LABCLIA [id number] [place] [address] [place] Bilirubin [Mass/Vol] 0.8 mg/dL Normal 0.2-1.3 [facility] Comment on above: Order Comment: Speci men Type: BLOOD SPECIMENOrdering Facility: [facility] Address: [address] [place] [address] Performed By: #### 2 4323-8, 2531-0 ####[facility] MILLTOWNCLIA [id number] [place] [address] [place]#### 71795-1, 2275-07 ####[facility] LABCLIA [id number] [place] [id number] [place] Calcium [Mass/Vol] 9.3 mg/dL Normal 8.5-10.2 [facility] Comment on above: Order Comment: Speci men Type: BLOOD SPECIMENOrdering Facility: [facility] Address: [address] [place], [place] [address] Performed By: #### 2 432-8, 2531-0 ####[facility]IAL[facility]CL[facility] [id number] [place] [address] [place]#### 49847-5, 2275-07 ####[facility] LABCLIA [id number] [place] [id number] [place] [place] Chloride [Moles/Vol] 100 mmol/L Normal 98-107 [facility] Comment on above: Order Comment: Speci men Type: BLOOD SPECIMENOrdering Facility: [facility] Address: [address] [id number] Performed By: #### 2 4323-8, 2-0 ####[facility] MILLTOWNCLIA [id number] [place] [address] [place]#### 95375-3, 2275-4 ####[facility] LABCLIA [id number] [place] [address] [place] CO2 [Moles/Vol] 28 mmol/L Normal 22-30 [facility] Comment on above: Order Comment: Speci men Type: BLOOD SPECIMENOrdering Facility: [facility] Address: [address] [place] [address] Performed By: #### 2 4323-8, 2532-0 ####[facility] [id number] [place] [address] [place]#### 65924-5, 2275-4 ####[facility] LABIA [id number] [place] [address] [place] Creatinine [Mass/Vol] 0.82 mg/dL Normal 0.73-1.22 [facility] Comment on above: Order Comment: Speci men Type: BLOOD SPECIMENOrdering Facility: [facility] Address: [address] [place] [address] Performed By: #### 2 4323-8, 2532-0 ####[facility] [id number] [place] [address] [place] [facility] OF [place]#### 32901-7, 2275-4 ####[facility] LABIA [id number] [address] [place] Creatinine and Glomerular filtration rate.predicted panel (S/P/Bld) 93 mL/min/1.73m??? Normal >=60 [facility] Comment on above: Order Comment: Speci men Type: BLOOD SPECIMENOrdering Facility: [facility] Address: [address] [place] [address] Result Comment: Kimberley mated Glomerular Filtration Rate (eGFR) is calculated using the 2020 CKD-EPI creatinine equation. This equation utilizes serum creatinine, sex, and age as parameters. The creatinine assay has traceable calibration to isotope dilution-mass spectrometry. Refer to KDIGO guidelines for clinical interpretation. In patients with unstable renal function, e.g. those with acute kidney injury, the eGFR may not accurately reflect actual GFR. Performed By: #### 2 4323-8, 2531-0 ####[facility] [id number] [place] [address] [place]#### 78197-4, 2275-4 ####[facility] LABIA [id number] [place] [address] [place] Glucose [Mass/Vol] 162 mg/dL High 74-99 [facility] Comment on above: Order Comment: Speci men Type: BLOOD SPECIMENOrdering Facility: [facility] Address: [address] [place] [address] Result Comment: The [place] Diabetes Association (ADA) provides guidance for cutoff values for fasting glucose and random glucose. The ADA defines fasting as no caloric intake for at least 8 hours. Fasting plasma glucose results between 100 to 125 mg/dL indicate increased risk for diabetes (prediabetes).Fasting plasma glucose results greater than or equal to 126 mg/dL meet the criteria for diagnosis of diabetes. In the absence of unequivocal hyperglycemia, results should be confirmed by repeat testing. In a patient with classic symptoms of hyperglycemia or hyperglycemic crisis, random plasma glucose results greater than or equal to 200 mg/dL meet the criteria for diagnosis of diabetes.Reference: Standards of Medical Care in Diabetes 2016, [place] [employer] Association. Diabetes Care. 2016.39(Suppl 1). Performed By: #### 2 43238, 0 ####[facility] [id number] [place] [address] [place]#### 57890-9, 2275-07 ####[facility] LABIA [id number] [address] [address] [place] Potassium [Moles/Vol] 3.9 mmol/L Normal 3.7-5.1 [facility] Comment on above: Order Comment: Speci men Type: BLOOD SPECIMENOrdering Facility: [facility] Address: [facility] [place] [address] Performed By: #### 2 4323-8, 2-0 ####[facility] BEACHWNCLIA [id number] [place] [address] [place]#### 00386-2, 2275-4 ####[facility] LABCLIA [id number] [address] [address] [place] Protein [Mass/Vol] 6.8 g/dL Normal 6.3-8.0 [facility] Comment on above: Order Comment: Speci men Type: BLOOD SPECIMENOrdering Facility: [facility] Address: [address] [place] [address] Performed By: #### 2 4323-8, 2531-0 ####[facility] [id number] [place] [address] [place]#### 59799-3, 2275-07 ####[facility] LABCLIA [id number] [address] [address] [place] Sodium [Moles/Vol] 138 mmol/L Normal 136-144 [facility] Comment on above: Order Comment: Speci men Type: BLOOD SPECIMENOrdering Facility: [facility] Address: [address] [place], [place] [address] Performed By: #### 2 4323-8, 2531-0 ####[facility] MILLWNCLIA [id number] [place] [address] [place]#### 16420-2, 2275- ####[facility] LABCLIA [id number] [address] [address] [place] Urea nitrogen [Mass/Vol] 25 mg/dL High 9-24 [facility] Comment on above: Order Comment: Speci men Type: BLOOD SPECIMENOrdering Facility: [facility] Address: [address] [place] [address] Performed By: #### 2 4323-8, 2532-0 ####[facility] [id number] [place] [address] [place]#### 42491-0, 6-4 ####[facility] LABCLIA [id number] [address] [address] [place] Ferritin SerPl-mCncon 2024 Ferritin [Mass/Vol] 32.9 ng/mL Normal 30.3-565.7 [facility] Comment on above: Order Comment: Speci men Type: BLOOD SPECIMENOrdering Facility: [facility] Address: [address] [place] [address] Performed By: #### 2 4323-8, 2532-0 ####[facility] [id number] [place] [address] [place]#### 78814-1, 6-4 ####[facility] LABCLIA [id number] [address] [address] [place] IMMUNOFIXATION SCREEN, SERUM on 07-04-2024 INTERPRETATION (MPA) Normal [facility] Comment on above: Order Comment: Speci men Type: BLOOD SPECIMENOrdering Facility: [facility] Address: [address] [place] [address] Performed By: #### I [facility] ####[facility] LABCLIA [id number] [address] [address] [place] MPA RESULT M protein is present. Abnormal No M protein is identified. [facility] Comment on above: Order Comment: Speci men Type: BLOOD SPECIMENOrdering Facility: [facility] Address: [address] [place] [address] Performed By: #### I FESC ####[facility] LABCLIA [id number] [address] OF [facility] STAFF REVIEW (MPA) Reviewed by Leonila Olmedo MD Normal [facility] Comment on above: Order Comment: Speci men Type: BLOOD SPECIMENOrdering Facility: [facility] Address: [address] [place] [address] Performed By: #### I FESC ####[facility] LABCLIA [id number] [place] [address] [place] IMMUNOGLOBULINS,IGG,IGA,IGMo n 07-04-2024 IgA [Mass/Vol] 56 mg/dL Low 70-400 [facility] Comment on above: Order Comment: Speci men Type: BLOOD SPECIMENOrdering Facility: [facility] Address: [address] [place] [address] Performed By: #### S ERIMM ####[facility] LABIA [id number] [place] [address] [place] IgG [Mass/Vol] 509 mg/dL Low 700-1600 [facility] Comment on above: Order Comment: Speci men Type: BLOOD SPECIMENOrdering Facility: [facility] Address: [address] [place] [address] Performed By: #### S ERIMM ####[facility] LABCLIA [id number] [place] [address] [place] IgM [Mass/Vol] 19 mg/dL Low 40-230 [facility] Comment on above: Order Comment: Speci men Type: BLOOD SPECIMENOrdering Facility: [facility] Address: [address] [place] [address] Performed By: #### S ERIMM ####[facility] LABCLIA [id number] [address] [address] [place] Iron and Iron binding capaci ty panelon 07-04-2024 Iron [Mass/Vol] 30 ug/dL Low 41-186 [facility] Comment on above: Order Comment: Speci men Type: BLOOD SPECIMENOrdering Facility: [facility] Address: [address] [place] [address] Performed By: #### 2 4323-8, 2-0 ####[facility] MILLTOWNCLIA [id number] [place] [address] [place]#### 18027-3, 2275- ####[facility] LABCLIA [id number] [place] [address] [place] Iron binding capacity [Mass/Vol] 403 ug/dL High 232-386 [facility] Comment on above: Order Comment: Speci men Type: BLOOD SPECIMENOrdering Facility: [facility] Address: [address] [place] [address] Performed By: #### 2 4323-8, 2531-0 ####[facility] MILLWNCLIA [id number] [place] [address] [place]#### 76415-5, 2275-07 ####[facility] LABCLIA [id number] [place] [address] [place] Iron/TIBC [Molar ratio] 7.4 % Low 15.0-57.0 [facility] Comment on above: Order Comment: Speci men Type: BLOOD SPECIMENOrdering Facility: [facility] Address: [address] [place] [address] Performed By: #### 2 4323-8, 2531-0 ####[facility] MILLTOWNCLIA [id number] [place] [address] [place]#### 18149-6, 2275- ####[facility] LABCLIA [id number] [place] [address] [place] KAPPA/RAMIREZ,FREE,SERon 2024 Immunoglobulin light chains.kappa.free (S) [Mass/Vol] 7.6 mg/L Normal 3.3-19.4 [facility] Comment on above: Order Comment: Speci men Type: BLOOD SPECIMENOrdering Facility: [facility] Address: [address] [place] [address] Result Comment: Rare ly, increased serum free light chains levels may not be detected or accurately quantified due to prozone phenomenon or in high viscosity samples using this immunoturbidimetric assay. Correlation with other laboratory results and clinical findings is recommended.The [place] Free Light Chain was performed using the Binding Site [employer] immunoturbidimetric method. Result obtained with different assay methods or kits cannot be used interchangeably. Performed By: #### K LFRS ####[facility] LABCLIA [id number] [place] [address] [place] Immunoglobulin light chains.kappa/Immunoglobuli n light chains.lambda (S) [Mass ratio] 1.31 Normal 0.26-1.65 [facility] Comment on above: Order Comment: Speci men Type: BLOOD SPECIMENOrdering Facility: [facility] Address: [address] [place] [address] Performed By: #### K LFRS ####[facility] [id number] [place] [address] [place] Immunoglobulin light chains.lambda.free [Mass/Vol] 5.8 mg/L Normal 5.7-26.3 [facility] Comment on above: Order Comment: Speci men Type: BLOOD SPECIMENOrdering Facility: [facility] Address: [address] [place] [address] Result Comment: Rare ly, increased serum free light chains levels may not be detected or accurately quantified due to prozone phenomenon or in high viscosity samples using this immunoturbidimetric assay. Correlation with other laboratory results and clinical findings is recommended.The Lambda Free Light Chain was performed using the Binding Site [employer]il[employer] immunoturbidimetric method. Result obtained with different assay methods or kits cannot be used interchangeably. Performed By: #### K LFRS ####[facility] LABCLIA [id number] [address] [id number] [place] LDH SerPl-cCncon 07-04-2024 LDH [Catalytic activity/Vol] 209 U/L Normal 135-225 [facility] Comment on above: Order Comment: Speci men Type: BLOOD SPECIMENOrdering Facility: [facility] Address: [address] [place] [address] Performed By: #### 2 4323-8, 2532-0 ####[facility] [id number] [place] [address] [place]#### 55762-6, 2276-4 ####[facility] LABIA [id number] [place] [address] [place] MONOCLONAL PROT UR W/INTERPo n 07-04-2024 STAFF REVIEW (UMPA) Reviewed by Leonila Olmedo MD [facility] Comment on above: Order Comment: Speci men Type: URINE SPECIMENOrdering Facility: [facility] Address: [address] [place] [address] Performed By: #### U RMPA ####[facility] [id number] [address] [place] UMPA RESULT No M protein is identified. Normal No M protein is identified. [facility] Comment on above: Order Comment: Speci men Type: URINE SPECIMENOrdering Facility: [facility] Address: [address] [place] [address] Performed By: #### U RMPA ####[facility] LABIA [id number] [address] [id number] [place] [facility] PROTEIN ELECTROPHORESIS SERU M (P)on 07-04-2024 Albumin [Mass/Vol] 3.98 g/dL Normal 3.43-5.41 [facility] Comment on above: Order Comment: Speci men Type: BLOOD SPECIMENOrdering Facility: [facility] Address: [address] [place] [address] Performed By: #### L [id number] ####[facility] LABIA [id number] [place] [address] [place] Alpha 1 globulin Elph [Mass/Vol] 0.38 g/dL Normal 0.18-0.43 [facility] Comment on above: Order Comment: Speci men Type: BLOOD SPECIMENOrdering Facility: [facility] Address: [address] [place] [address] Performed By: #### L [id number] ####[facility] [id number] [place] [address] [place] Alpha 2 globulin Elph [Mass/Vol] 0.90 g/dL Normal 0.42-0.98 [facility] Comment on above: Order Comment: Speci men Type: BLOOD SPECIMENOrdering Facility: [facility] Address: [address] [place] [address] Performed By: #### L [id number] ####[facility] [id number] [place] [address] [place] Beta globulin Elph [Mass/Vol] 0.73 g/dL Normal 0.61-1.17 [facility] Comment on above: Order Comment: Speci men Type: BLOOD SPECIMENOrdering Facility: [facility] Address: [address] [place] [address] Performed By: #### L [id number] ####[facility] LABIA [id number] [place] [address] [place] Gamma globulin Elph [Mass/Vol] 0.41 g/dL Low 0.53-1.51 [facility] Comment on above: Order Comment: Speci men Type: BLOOD SPECIMENOrdering Facility: [facility] Address: [address] [place] [address] Performed By: #### L [id number] ####[facility] LABCLIA [id number] [address] [address] [place] INTERPRETATION COMMENT FOR PROTEIN ELECTROPHORESIS Normal [facility] Comment on above: Order Comment: Speci men Type: BLOOD SPECIMENOrdering Facility: [facility] Address: [address] [place] [address] Performed By: #### L [id number] ####[facility] LABCLIA [id number] [address] [address] [place] M-PROTEIN LOCATION Normal [facility] Comment on above: Order Comment: Speci men Type: BLOOD SPECIMENOrdering Facility: [facility] Address: [address] [place] [address] Result Comment: Not Applicable. Performed By: #### L [id number] ####[facility] LABCLIA [id number] [place] [address] [place] Protein Fractions [Interp] An atypical r egion of restricted mobility is identified on protein electrophoresis. Abnormal No definitive M protein is identified on protein electrophor esis. [facility] Comment on above: Order Comment: Speci men Type: BLOOD SPECIMENOrdering Facility: [facility] Address: [address] [place] [address] Performed By: #### L [id number] ####[facility] LABCLIA [id number] [place] [address] [place] Protein.monoclonal Elph [Mass/Vol] 0.00 g/dL Normal <=0.00 [facility] Comment on above: Order Comment: Speci men Type: BLOOD SPECIMENOrdering Facility: [facility] Address: [address] [place] [address] Performed By: #### L [id number] ####[facility] LABCLIA [id number] [address] [address] [place] SPE STAFF REVIEW Reviewed by Leonila Olmedo MD Normal [facility] Comment on above: Order Comment: Speci men Type: BLOOD SPECIMENOrdering Facility: [facility] Address: [address] [place] [address] Performed By: #### L [id number] ####[facility] [id number] [place] [address] [place] Prot SerPl-mCncon 07-04-2024 Protein [Mass/Vol] 6.4 g/dL Normal 6.3-8.0 [facility] Comment on above: Order Comment: Speci men Type: BLOOD SPECIMENOrdering Facility: [facility] Address: [address] [place] [address] Performed By: #### 1 952-1, 2885-2 ####[facility] [id number] [place] [address] [place] Prot Ur-mCncon 07-04-2024 Protein (U) [Mass/Vol] 44 mg/dL High 0-20 Cl [facility] Comment on above: Order Comment: Speci men Type: URINE SPECIMENOrdering Facility: [facility] Address: [address] [place] [address] Performed By: #### 2 888-6 ####[facility] [id number] [place] [address] [place] URINE PROTEIN ELECTROPHORESI S RANDOM (P)on 07-04-2024 Albumin Elph (U) [Mass fraction] 68.14 % Normal [facility] Comment on above: Order Comment: Speci men Type: URINE SPECIMENOrdering Facility: [facility] Address: [address] [place] [address] Performed By: #### L [id number] ####[facility] [id number] [place] [address] [place] Alpha 1 globulin Elph (U) [Mass fraction] 2.53 % Normal [facility] Comment on above: Order Comment: Speci men Type: URINE SPECIMENOrdering Facility: [facility] Address: [address] [place] [address] Performed By: #### L [id number] ####[facility] LABCLIA [id number] [address] [address] [place] Alpha 2 globulin Elph (U) [Mass fraction] 12.72 % Normal [facility] Comment on above: Order Comment: Speci men Type: URINE SPECIMENOrdering Facility: [facility] Address: [address] [place] [address] Performed By: #### L [id number] ####[facility] LABIA [id number] [place] [address] [place] Beta globulin Elph (U) [Mass fraction] 12.73 % Normal [facility] Comment on above: Order Comment: Speci men Type: URINE SPECIMENOrdering Facility: [facility] Address: [address] [place] [address] Performed By: #### L [id number] ####[facility] LABIA [id number] [address] [address] [place] Gamma globulin Elph (U) [Mass fraction] 3.88 % Normal [facility] Comment on above: Order Comment: Speci men Type: URINE SPECIMENOrdering Facility: [facility] Address: [address] [place] [address] Performed By: #### L [id number] ####[facility] LABCLIA [id number] [address] [place] [address] [place] Protein Fractions Elph Shalom (U) [Interp] No definitive M protein is identified on protein electrophoresis. Normal No definitive M protein is identified on protein electrophor esis. [facility] Comment on above: Order Comment: Speci men Type: URINE SPECIMENOrdering Facility: [facility] Address: [address] [place] [address] Performed By: #### L [id number] ####[facility] LABCLIA [id number] [place] [address] [place] STAFF REVIEW (URINE ELECTRO) Reviewed by Leonila Olmedo MD Normal [facility] Comment on above: Order Comment: Speci men Type: URINE SPECIMENOrdering Facility: [facility] Address: [address] [place] [address] Performed By: #### L [id number] ####[facility] LABIA [id number] [place] [address] [place] PET/CT Tumor Base -Thigh Sub son 07-03-2024 PET/CT Tumor Base -Thigh Subs Normal [facility] CNPNon 06-21-2024 CNPN Normal [facility] Internal Medicine Office Vis iton 06-13-2024 Internal Medicine Office Visit Normal [facility] CT ABD/PEL W IVCONon 025 CT ABD/PEL W IVCON Normal [facility] Pulmonary Visit Reporton Pulmonary Visit Report Normal [facility] B2 Microglob SerPl-mCncon Ohgl-7-Hyrtujstzdbpe [Mass/Vol] 2.8 ug/mL Normal <3.1 [facility] Comment on above: Order Comment: Speci men Type: BLOOD SPECIMENOrdering Facility: [facility] Address: [address] [place] [address] Result Comment: Beta -2 Microglobulin test is performed using the [employer] immunoturbidimetric method. Results obtained with different methods or kits cannot be used interchangeably. Performed By: #### 1 952-1, 2885-2 ####[facility] LABCLIA [id number] [place] [address] [place] CBC W Auto Differential pane l (Bld)on 06-06-2024 Basophils (Bld) [#/Vol] 0.04 10*3/uL Normal <0.11 [facility] Comment on above: Order Comment: Speci men Type: BLOOD SPECIMENOrdering Facility: [facility] Address: [address] [place] [address] Performed By: #### 5 7021-8 ####[facility] YANDELWNCLIA [id number] [place] [address] [place] Basophils/100 WBC (Bld) 0.3 % Normal [facility] Comment on above: Order Comment: Speci men Type: BLOOD SPECIMENOrdering Facility: [facility] Address: [address] [place] [address] Performed By: #### 5 7021-8 ####[facility] [id number] [place] [address] [place] Differential cell count method Nom (Bld) Auto Normal [facility] Comment on above: Order Comment: Speci men Type: BLOOD SPECIMENOrdering Facility: [facility] Address: [address] [place] [address] Performed By: #### 5 7021-8 ####[facility] [id number] [place] [address] [place] Eosinophils (Bld) [#/Vol] 0.12 10*3/uL Normal <0.46 [facility] Comment on above: Order Comment: Speci men Type: BLOOD SPECIMENOrdering Facility: [facility] Address: [address] [place] [address] Performed By: #### 5 7021-8 ####[facility] [id number] [address] STATES OF [place] Eosinophils/100 WBC (Bld) 0.9 % Normal [facility] Comment on above: Order Comment: Speci men Type: BLOOD SPECIMENOrdering Facility: [facility] Address: [address] [place] [address] Performed By: #### 5 7021-8 ####[facility] [id number] [place] [address] [place] Erythrocyte distribution width (RBC) [Ratio] 17.2 % High 11.5-15.0 [facility] Comment on above: Order Comment: Speci men Type: BLOOD SPECIMENOrdering Facility: [facility] Address: [address] [place] [address] Performed By: #### 5 7021-8 ####[facility] [id number] [place] [address] [place] Hematocrit (Bld) [Volume fraction] 37.8 % Low 39.0-51.0 [facility] Comment on above: Order Comment: Speci men Type: BLOOD SPECIMENOrdering Facility: [facility] Address: [address] [place] [address] Performed By: #### 5 7021-8 ####[facility] [id number] [place] [address] [place] Hemoglobin (Bld) [Mass/Vol] 11.3 g/dL Low 13.0-17.0 [facility] Comment on above: Order Comment: Speci men Type: BLOOD SPECIMENOrdering Facility: [facility] Address: [address] [place] [address] Performed By: #### 5 7021-8 ####[facility] [id number] [place] [address] [place] Immature granulocytes (Bld) [#/Vol] 0.07 10*3/uL Normal <0.10 [facility] Comment on above: Order Comment: Speci men Type: BLOOD SPECIMENOrdering Facility: [facility] Address: [address] [place] [address] Performed By: #### 5 7021-8 ####[facility] [id number] [place] [address] [place] Immature granulocytes/100 WBC (Bld) 0.5 % Normal [facility] Comment on above: Order Comment: Speci men Type: BLOOD SPECIMENOrdering Facility: [facility] Address: [address] [place] [address] Performed By: #### 5 7021-8 ####[facility]IAL[facility]CL[facility] [id number] [place] [address] [place] Lymphocytes (Bld) [#/Vol] 0.91 10*3/uL Low 1.00-4.0 0 [facility] Comment on above: Order Comment: Speci men Type: BLOOD SPECIMENOrdering Facility: [facility] Address: [address] [place] [address] Performed By: #### 5 7021-8 ####[facility] [id number] [place] [address] [place] Lymphocytes/100 WBC (Bld) 6.9 % Normal [facility] Comment on above: Order Comment: Speci men Type: BLOOD SPECIMENOrdering Facility: [facility] Address: [address] [place] [address] Performed By: #### 5 7021-8 ####[facility] [id number] [place] [address] [place] MCH (RBC) [Entitic mass] 23.6 pg Low 26.0-34.0 [facility] Comment on above: Order Comment: Speci men Type: BLOOD SPECIMENOrdering Facility: [facility] Address: [address] [place] [address] Performed By: #### 5 7021-8 ####[facility]IAL[facility]CL[facility] [id number] [place] [address] [place] MCHC (RBC) [Mass/Vol] 29.9 g/dL Low 30.5-36.0 [facility] Comment on above: Order Comment: Speci men Type: BLOOD SPECIMENOrdering Facility: [facility] Address: [address] [place] [address] Performed By: #### 5 7021-8 ####[facility] [id number] [place] [address] [place] MCV (RBC) [Entitic vol] 79.1 fL Low 80.0-100.0 [facility] Comment on above: Order Comment: Speci men Type: BLOOD SPECIMENOrdering Facility: [facility] Address: [address] [place] [address] Performed By: #### 5 7021-8 ####[facility] [id number] [place] [address] [place] Monocytes (Bld) [#/Vol] 0.94 10*3/uL High <0.87 [facility] Comment on above: Order Comment: Speci men Type: BLOOD SPECIMENOrdering Facility: [facility] Address: [address] [place] [address] Performed By: #### 5 7021-8 ####[facility] [id number] [place] [address] [place] Monocytes/100 WBC (Bld) 7.1 % [facility] Comment on above: Order Comment: Speci men Type: BLOOD SPECIMENOrdering Facility: [facility] Address: [address] [place] [address] Performed By: #### 5 7021-8 ####[facility] [id number] [place] [address] [place] Neutrophils (Bld) [#/Vol] 11.10 10*3/uL High 1.45-7. 50 [facility] Comment on above: Order Comment: Speci men Type: BLOOD SPECIMENOrdering Facility: [facility] Address: [address] [place] [address] Performed By: #### 5 7021-8 ####[facility]IALNCLI [id number] [place] [address] [place] Neutrophils/100 WBC (Bld) 84.3 % Normal [facility] Comment on above: Order Comment: Speci men Type: BLOOD SPECIMENOrdering Facility: [facility] Address: [address] [place] [address] Performed By: #### 5 7021-8 ####[facility] [id number] [place] [address] [place] Nucleated RBC (Bld) [#/Vol] 10*3/uL Normal <0.01 [facility] Comment on above: Order Comment: Speci men Type: BLOOD SPECIMENOrdering Facility: [facility] Address: [address] [place] [address] Performed By: #### 5 7021-8 ####[facility] [id number] [place] [address] [place] Nucleated RBC/100 WBC (Bld) [Ratio] 0.0 /100 WBC Normal [facility] Comment on above: Order Comment: Speci men Type: BLOOD SPECIMENOrdering Facility: [facility] Address: [address] [place] [address] Performed By: #### 5 7021-8 ####[facility] [id number] [place] [address] [place] Platelet mean volume (Bld) [Entitic vol] 9.3 fL Normal 9.0-12.7 [facility] Comment on above: Order Comment: Speci men Type: BLOOD SPECIMENOrdering Facility: [facility] Address: [address] [place] [address] Performed By: #### 5 7021-8 ####[facility] [id number] [place] [address] [place] Platelets (Bld) [#/Vol] 423 10*3/uL High 150-400 [facility] Comment on above: Order Comment: Speci men Type: BLOOD SPECIMENOrdering Facility: [facility] Address: [address] [place], [place] [address] Performed By: #### 5 7021-8 ####[facility] SORIANOMARCEMarcio [id number] [place] [address] [place] RBC (Bld) [#/Vol] 4.78 10*6/uL Normal 4.20-6.00 [facility] Comment on above: Order Comment: Speci men Type: BLOOD SPECIMENOrdering Facility: [facility] Address: [address] [place] [address] Performed By: #### 5 7021-8 ####[facility] DAYTONA BEACHJaylenELSI [id number] [place] [address] [place] WBC (Bld) [#/Vol] 13.18 10*3/uL High 3.70-11.00 [facility] Comment on above: Order Comment: Speci men Type: BLOOD SPECIMENOrdering Facility: [facility] Address: [address] [place] [address] Performed By: #### 5 7021-8 ####[facility]IALMARCEA [id number] [place] [address] [place] CNOVSPon 06-06-2024 CNOVSP Normal [facility] Comprehensive metabolic 2000 panelon 06-06-2024 Albumin [Mass/Vol] 4.1 g/dL Normal 3.9-4.9 [facility] Comment on above: Order Comment: Speci men Type: BLOOD SPECIMENOrdering Facility: [facility] Address: [address] [place] [address] Performed By: #### 2 4323-8, 2532-0 ####[facility]IALNCLIA [id number] [place] [address] [place] ALP [Catalytic activity/Vol] 134 U/L High 38-113 [facility] Comment on above: Order Comment: Speci men Type: BLOOD SPECIMENOrdering Facility: [facility] Address: [address] [place], [place] [address] Performed By: #### 2 4323-8, 2531-0 ####[facility] YANDELSTEWART [id number] [place] [address] [place] ALT [Catalytic activity/Vol] 12 U/L Normal 10-54 [facility] Comment on above: Order Comment: Speci men Type: BLOOD SPECIMENOrdering Facility: [facility] Address: [address] [place] [address] Performed By: #### 2 4323-8, 2-0 ####[facility] YANDELEATONMARCEMarcio [id number] [place] [address] [place] Anion gap [Moles/Vol] 8 mmol/L Normal 8-15 [facility] Comment on above: Order Comment: Speci men Type: BLOOD SPECIMENOrdering Facility: [facility] Address: [address] [place] [address] Performed By: #### 2 4323-8, 2531-0 ####[facility]IALRONAKA [id number] [place] [address] [place] AST [Catalytic activity/Vol] 12 U/L Low 14-40 [facility] Comment on above: Order Comment: Speci men Type: BLOOD SPECIMENOrdering Facility: [facility] Address: [address] [place] [address] Performed By: #### 2 4323-8, 2-0 ####[facility]IALNCL[facility] [id number] [place] [address] [place] Bilirubin [Mass/Vol] 0.6 mg/dL Normal 0.2-1.3 [facility] Comment on above: Order Comment: Speci men Type: BLOOD SPECIMENOrdering Facility: [facility] Address: [address] [place] [address] Performed By: #### 2 4328, 2531-0 ####[facility] MILLTOWNCLIA [id number] [place] [address] [place] Calcium [Mass/Vol] 9.2 mg/dL Normal 8.5-10.2 [facility] Comment on above: Order Comment: Speci men Type: BLOOD SPECIMENOrdering Facility: [facility] Address: [address] [place] [address] Performed By: #### 2 4328, 2531-0 ####[facility] MILLTOWNCLIA [id number] [place] [address] [place] Chloride [Moles/Vol] 103 mmol/L Normal 98-107 [facility] Comment on above: Order Comment: Speci men Type: BLOOD SPECIMENOrdering Facility: [facility] Address: [address] [place] [address] Performed By: #### 2 4328, 0 ####[facility] MILLWNCLIA [id number] [place] [address] [place] CO2 [Moles/Vol] 28 mmol/L Normal 22-30 [facility] Comment on above: Order Comment: Speci men Type: BLOOD SPECIMENOrdering Facility: [facility] Address: [address] [place] [address] Performed By: #### 2 4328, 0 ####[facility] MILLTOWNCLIA [id number] [place] [address] [place] Creatinine [Mass/Vol] 0.72 mg/dL Low 0.73-1.22 [facility] Comment on above: Order Comment: Speci men Type: BLOOD SPECIMENOrdering Facility: [facility] Address: [address] [place] [address] Performed By: #### 2 43238, 2531-0 ####[facility] MILLTOWNCLIA [id number] [place] [address] [place] Creatinine and Glomerular filtration rate.predicted panel (S/P/Bld) 97 mL/min/1.73m??? Normal >=60 [facility] Comment on above: Order Comment: Mila pichardo Type: BLOOD SPECIMENOrdering Facility: [facility] Address: [address] [place] [address] Result Comment: Kimberley mated Glomerular Filtration Rate (eGFR) is calculated using the 2020 CKD-EPI creatinine equation. This equation utilizes serum creatinine, sex, and age as parameters. The creatinine assay has traceable calibration to isotope dilution-mass spectrometry. Refer to KDIGO guidelines for clinical interpretation. In patients with unstable renal function, e.g. those with acute kidney injury, the eGFR may not accurately reflect actual GFR. Performed By: #### 2 4323-8, 2532-0 ####[facility] [id number] [place] [address] [place] Glucose [Mass/Vol] 165 mg/dL High 74-99 [facility] Comment on above: Order Comment: Mila pichardo Type: BLOOD SPECIMENOrdering Facility: [facility] Address: [address] [place] [address] Result Comment: The [place] Diabetes Association (ADA) provides guidance for cutoff values for fasting glucose and random glucose. The ADA defines fasting as no caloric intake for at least 8 hours. Fasting plasma glucose results between 100 to 125 mg/dL indicate increased risk for diabetes (prediabetes).Fasting plasma glucose results greater than or equal to 126 mg/dL meet the criteria for diagnosis of diabetes. In the absence of unequivocal hyperglycemia, results should be confirmed by repeat testing. In a patient with classic symptoms of hyperglycemia or hyperglycemic crisis, random plasma glucose results greater than or equal to 200 mg/dL meet the criteria for diagnosis of diabetes.Reference: Standards of Medical Care in Diabetes 2016, [place] [employer]. Diabetes Care. 2016.39(Suppl 1). Performed By: #### 2 4323-8, 2532-0 ####[facility] HOSPITALLIA [id number] [place] [address] [place] Potassium [Moles/Vol] 4.1 mmol/L Normal 3.7-5.1 [facility] Comment on above: Order Comment: Speci men Type: BLOOD SPECIMENOrdering Facility: [facility] Address: [address] [place] [address] Performed By: #### 2 4323-8, 2532-0 ####[facility] MILLVIRGINIAWRONAKLIA [id number] [place] [address] [place] Protein [Mass/Vol] 6.4 g/dL Normal 6.3-8.0 [facility] Comment on above: Order Comment: Speci men Type: BLOOD SPECIMENOrdering Facility: [facility] Address: [address] [place] [address] Performed By: #### 2 4323-8, 2532-0 ####[facility] BEACHSTEWART [id number] [place] [address] [place] Sodium [Moles/Vol] 139 mmol/L Normal 136-144 [facility] Comment on above: Order Comment: Speci men Type: BLOOD SPECIMENOrdering Facility: [facility] Address: [address] [place] [address] Performed By: #### 2 4323-8, 2532-0 ####[facility] BEACHCARINEA [id number] [place] [address] [place] Urea nitrogen [Mass/Vol] 17 mg/dL Normal 9-24 [facility] Comment on above: Order Comment: Speci men Type: BLOOD SPECIMENOrdering Facility: [facility] Address: [address] [place] [address] Performed By: #### 2 4323-8, 2532-0 ####[facility]IALNCLIA [id number] [place] [address] [place] IMMUNOFIXATION SCREEN, SERUM on 06-06-2024 MPA RESULT No M protein is identified. Normal No M protein is identified. [facility] Comment on above: Order Comment: Speci men Type: BLOOD SPECIMENOrdering Facility: [facility] Address: [address] [place] [address] Performed By: #### I FESC ####[facility] LABCLIA [id number] [place] [id number] [place] STAFF REVIEW (MPA) Reviewed by Bianka Rdz MD [facility] Comment on above: Order Comment: Speci men Type: BLOOD SPECIMENOrdering Facility: [facility] Address: [address] [place] [address] Performed By: #### I FES ####[facility] LABIA [id number] [place] [address] [place] IMMUNOGLOBULINS,IGG,IGA,IGMo n 06-06-2024 IgA [Mass/Vol] 57 mg/dL Low 70-400 [facility] Comment on above: Order Comment: Speci men Type: BLOOD SPECIMENOrdering Facility: [facility] Address: [address] [place] [address] Performed By: #### S ERIMM ####[facility] LABIA [id number] [place] [address] [place] IgG [Mass/Vol] 470 mg/dL Low 700-1600 [facility] Comment on above: Order Comment: Speci men Type: BLOOD SPECIMENOrdering Facility: [facility] Address: [address] [place] [address] Performed By: #### S ERIMM ####[facility] LABCLIA [id number] [place] [id number] [place] IgM [Mass/Vol] 21 mg/dL Low 40-230 [facility] Comment on above: Order Comment: Speci men Type: BLOOD SPECIMENOrdering Facility: [facility] Address: [address] [place] [address] Performed By: #### S ERIMM ####[facility] LABCLIA [id number] [place] [address] [place] KAPPA/RAMIREZ,FREE,SERon 2024 Immunoglobulin light chains.kappa.free (S) [Mass/Vol] 7.8 mg/L Normal 3.3-19.4 [facility] Comment on above: Order Comment: Speci men Type: BLOOD SPECIMENOrdering Facility: [facility] Address: [address] [place] [address] Result Comment: Rare ly, increased serum free light chains levels may not be detected or accurately quantified due to prozone phenomenon or in high viscosity samples using this immunoturbidimetric assay. Correlation with other laboratory results and clinical findings is recommended.The [place] Free Light Chain was performed using the Binding Site Optilite immunoturbidimetric method. Result obtained with different assay methods or kits cannot be used interchangeably. Performed By: #### K LFRS ####[facility] LABIA [id number] [place] [address] [place] Immunoglobulin light chains.kappa/Immunoglobuli n light chains.lambda (S) [Mass ratio] 1.39 Normal 0.26-1.65 [facility] Comment on above: Order Comment: Speci men Type: BLOOD SPECIMENOrdering Facility: [facility] Address: [address] [place] [address] Performed By: #### K LFRS ####[facility] LABIA [id number] [place] [address] [place] Immunoglobulin light chains.lambda.free [Mass/Vol] 5.6 mg/L Low 5.7-26.3 [facility] Comment on above: Order Comment: Speci men Type: BLOOD SPECIMENOrdering Facility: [facility] Address: [address] [place] [address] Result Comment: Rare ly, increased serum free light chains levels may not be detected or accurately quantified due to prozone phenomenon or in high viscosity samples using this immunoturbidimetric assay. Correlation with other laboratory results and clinical findings is recommended.The Lambda Free Light Chain was performed using the Binding Site Optilite immunoturbidimetric method. Result obtained with different assay methods or kits cannot be used interchangeably. Performed By: #### K LFRS ####[facility] LABCLIA [id number] [place] [address] [place] LDH SerPl-cCncon 06-06-2024 LDH [Catalytic activity/Vol] 195 U/L Normal 135-225 [facility] Comment on above: Order Comment: Speci men Type: BLOOD SPECIMENOrdering Facility: [facility] Address: [address] [place] [address] Performed By: #### 2 4323-8, 2532-0 ####[facility] [id number] [place] [address] [place] MONOCLONAL PROT UR W/INTERPo n 06-06-2024 STAFF REVIEW (UMPA) Reviewed by Bianka Rdz MD Normal [facility] Comment on above: Order Comment: Speci men Type: URINE SPECIMENOrdering Facility: [facility] Address: [address] [place] [address] Performed By: #### U RMPA ####[facility]PITALIA [id number] [address] [place] UMPA RESULT No M protein is identified. Normal No M protein is identified. [facility] Comment on above: Order Comment: Speci men Type: URINE SPECIMENOrdering Facility: [facility] Address: [address] [place] [address] Performed By: #### U RMPA ####[facility] LABIA [id number] [place] [address] [place] PROTEIN ELECTROPHORESIS SERU M (P)on 06-06-2024 Albumin [Mass/Vol] 3.64 g/dL Normal 3.43-5.41 [facility] Comment on above: Order Comment: Speci men Type: BLOOD SPECIMENOrdering Facility: [facility] Address: [address] [place] [address] Performed By: #### L [id number] ####[facility] LABCLIA [id number] [place] [address] [place] Alpha 1 globulin Elph [Mass/Vol] 0.38 g/dL Normal 0.18-0.43 [facility] Comment on above: Order Comment: Speci men Type: BLOOD SPECIMENOrdering Facility: [facility] Address: [address] [place] [address] Performed By: #### L [id number] ####[facility] LABIA [id number] [place] [address] [place] Alpha 2 globulin Elph [Mass/Vol] 0.87 g/dL Normal 0.42-0.98 [facility] Comment on above: Order Comment: Speci men Type: BLOOD SPECIMENOrdering Facility: [facility] Address: [address] [place] [address] Performed By: #### L [id number] ####[facility] LABIA [id number] [place] [address] [place] Beta globulin Elph [Mass/Vol] 0.74 g/dL Normal 0.61-1.17 [facility] Comment on above: Order Comment: Speci men Type: BLOOD SPECIMENOrdering Facility: [facility] Address: [address] [place] [address] Performed By: #### L [id number] ####[facility] LABCLIA [id number] [place] [address] [place] Gamma globulin Elph [Mass/Vol] 0.37 g/dL Low 0.53-1.51 [facility] Comment on above: Order Comment: Speci men Type: BLOOD SPECIMENOrdering Facility: [facility] Address: [address] [place] [address] Performed By: #### L [id number] ####[facility] LABCLIA [id number] [address] [place] INTERPRETATION COMMENT FOR PROTEIN ELECTROPHORESIS Hypogammaglobulinemia is present, which can be seen in the setting of monoclonal gammopathy. If clinically indicated, monoclonal protein analysis and serum free light chain analysis are suggested to evaluate further for monoclonal gammopathy. Normal [facility] Comment on above: Order Comment: Speci men Type: BLOOD SPECIMENOrdering Facility: [facility] Address: [address] [place] [address] Performed By: #### L [id number] ####[facility] LABIA [id number] [address] [place] M-PROTEIN LOCATION Normal [facility] Comment on above: Order Comment: Citlalyi marino Type: BLOOD SPECIMENOrdering Facility: [facility] Address: [address] [place] [address] Result Comment: Not Applicable. Performed By: #### L [id number] ####[facility] LABIA [id number] [address] [place] Protein Fractions [Interp] No definitive M protein is identified on protein electrophoresis. Normal No definitive M protein is identified on protein electrophor esis. [facility] Comment on above: Order Comment: Citlalyi marino Type: BLOOD SPECIMENOrdering Facility: [facility] Address: [address] [place] [address] Performed By: #### L [id number] ####[facility] LABCLIA [id number] [address] [place] Protein.monoclonal Elph [Mass/Vol] 0.00 g/dL Normal <=0.00 [facility] Comment on above: Order Comment: Speci men Type: BLOOD SPECIMENOrdering Facility: [facility] Address: [address] [place] [address] Performed By: #### L [id number] ####[facility] LABCLIA [id number] [place] [address] [place] SPE STAFF REVIEW Reviewed by Bianka Rdz MD Normal [facility] Comment on above: Order Comment: Speci men Type: BLOOD SPECIMENOrdering Facility: [facility] Address: [address] [place] [address] Performed By: #### L [id number] ####[facility] LABIA [id number] [place] [address] [place] Prot SerPl-mCncon 06-06-2024 Protein [Mass/Vol] 6.0 g/dL Low 6.3-8.0 [facility] Comment on above: Order Comment: Speci men Type: BLOOD SPECIMENOrdering Facility: [facility] Address: [address] [place] [address] Performed By: #### 1 952-1, 2885-2 ####[facility] [id number] [place] [address] [place] Prot Ur-mCncon 06-06-2024 Protein (U) [Mass/Vol] 22 mg/dL High 0-[address] [facility] Comment on above: Order Comment: Speci men Type: URINE SPECIMENOrdering Facility: [facility] Address: [address] [place] [address] Performed By: #### 2 888-6 ####[facility] [id number] [place] [address] [place] URINE PROTEIN ELECTROPHORESI S RANDOM (P)on 06-06-2024 Albumin Elph (U) [Mass fraction] 61.05 % Normal [facility] Comment on above: Order Comment: Speci men Type: URINE SPECIMENOrdering Facility: [facility] Address: [address] [place] [address] Performed By: #### L [id number] ####[facility] LABIA [id number] [place] [address] [place] Alpha 1 globulin Elph (U) [Mass fraction] 4.87 % Normal [facility] Comment on above: Order Comment: Speci men Type: URINE SPECIMENOrdering Facility: [facility] Address: [address] [place] [address] Performed By: #### L [id number] ####[facility] LABCLIA [id number] [place] [address] [place] Alpha 2 globulin Elph (U) [Mass fraction] 12.30 % Normal [facility] Comment on above: Order Comment: Speci men Type: URINE SPECIMENOrdering Facility: [facility] Address: [address] [place] [address] Performed By: #### L [id number] ####[facility] LABIA [id number] [place] [address] [place] Beta globulin Elph (U) [Mass fraction] 16.14 % Normal [facility] Comment on above: Order Comment: Speci men Type: URINE SPECIMENOrdering Facility: [facility] Address: [address] [place] [address] Performed By: #### L [id number] ####[facility] LABIA [id number] [place] [address] [place] Gamma globulin Elph (U) [Mass fraction] 5.65 % Normal [facility] Comment on above: Order Comment: Speci men Type: URINE SPECIMENOrdering Facility: [facility] Address: [address] [place] [address] Performed By: #### L [id number] ####[facility] LABCLIA [id number] [place] [id number] [place] Protein Fractions Elph Shalom (U) [Interp] No definitive M protein is identified on protein electrophoresis. Normal No definitive M protein is identified on protein electrophor esis. [facility] Comment on above: Order Comment: Speci men Type: URINE SPECIMENOrdering Facility: [facility] Address: [address] [place] [address] Performed By: #### L [id number] ####[facility] LABCLIA [id number] [address] [address] [facility] OF [place] STAFF REVIEW (URINE ELECTRO) Reviewed by Bianka Rdz MD Normal [facility] Comment on above: Order Comment: Speci men Type: URINE SPECIMENOrdering Facility: [facility] Address: [address] [place] [address] Performed By: #### L [id number] ####[facility] LABCLIA [id number] [address] [address] [place] Cardiology Visit Reporton Cardiology Visit Report Normal [facility] Thoracic Spine 2 Viewson Thoracic Spine [address] [facility] Basic Metabolic Profile (BMP )on 05-26-2024 BUN Normal 7-18 [facility] Comment on above: Result Comment: Canc elled via OM: Order cancelled - Patient discharged Performed By: #### L 500.2500, L100.0100 ####[facility] [address] [place], [address] BUN/CRE Normal 10-20 [facility] Comment on above: Result Comment: Canc elled via OM: Order cancelled - Patient discharged Performed By: #### L 500.2500, L100.0100 ####[facility] [address] [place], [address] [place],Total Normal 8.5-10.1 [facility] Comment on above: Result Comment: Canc elled via OM: Order cancelled - Patient discharged Performed By: #### L 500.2500, L100.0100 ####[facility] [address] [place], [address] CL Normal 98-107 [facility] Comment on above: Result Comment: Canc elled via OM: Order cancelled - Patient discharged Performed By: #### L 500.2500, L100.0100 ####[facility] [address] [place], [address] CO2 Normal 21.0-32.0 [facility] Comment on above: Result Comment: Canc elled via OM: Order cancelled - Patient discharged Performed By: #### L 500.2500, L100.0100 ####[facility] [address] [place], [address] CREAT,SERUM Normal 0.70-1.30 [facility] Comment on above: Result Comment: Canc elled via OM: Order cancelled - Patient discharged Performed By: #### L 500.2500, L100.0100 ####[facility] [address] [place], [address] EST GFR Normal >60 [facility] Comment on above: Result Comment: Canc elled via OM: Order cancelled - Patient discharged Performed By: #### L 500.2500, L100.0100 ####[facility] [address] [place], [address] EST GFR - AA Normal >60 [facility] Comment on above: Result Comment: Canc elled via OM: Order cancelled - Patient discharged Performed By: #### L 500.2500, L100.0100 ####[facility] [address] [place], [address] GAP Normal 5-15 [facility] Comment on above: Result Comment: Canc elled via OM: Order cancelled - Patient discharged Performed By: #### L 500.2500, L100.0100 ####[facility] [address] [place], [address] GLU Normal 74-106 [facility] Comment on above: Result Comment: Canc elled via OM: Order cancelled - Patient discharged Performed By: #### L 500.2500, L100.0100 ####[facility] [address] [place], [address] Potassium Normal 3.5-5.1 [facility] Comment on above: Result Comment: Canc elled via OM: Order cancelled - Patient discharged Performed By: #### L 500.2500, L100.0100 ####[facility] [address] [place], [address] Basic Metabolic Profile (BMP) Normal 136-145 [facility] Comment on above: Result Comment: Canc elled via OM: Order cancelled - Patient discharged Performed By: #### L 500.2500, L100.0100 ####[facility] [address] [place], [address] CBC W/Diff, Automatedon 02-0 Absolute Neut Normal 2.0-7.7 [facility] Comment on above: Result Comment: Canc elled via OM: Order cancelled - Patient discharged Performed By: #### L 500.2500, L100.0100 ####[facility] [address] [place], [address] HCT Normal 40-54 [facility] Comment on above: Result Comment: Canc elled via OM: Order cancelled - Patient discharged Performed By: #### L 500.2500, L100.0100 ####[facility] [address] [place], [address] HGB Normal 13.0-16.5 [facility] Comment on above: Result Comment: Canc elled via OM: Order cancelled - Patient discharged Performed By: #### L 500.2500, L100.0100 ####[facility] [address] [place], [address] MCH Normal 27.0-32.0 [facility] Comment on above: Result Comment: Canc elled via OM: Order cancelled - Patient discharged Performed By: #### L 500.2500, L100.0100 ####[facility] [address] [place], [address] MCHC Normal 32-36 [facility] Comment on above: Result Comment: Canc elled via OM: Order cancelled - Patient discharged Performed By: #### L 500.2500, L100.0100 ####[facility] [address] [place], [address] MCV Normal 80-94 [facility] Comment on above: Result Comment: Canc elled via OM: Order cancelled - Patient discharged Performed By: #### L 500.2500, L100.0100 ####[facility] [address] [place], [address] NEUT% Normal 47-70 [facility] Comment on above: Result Comment: Canc elled via OM: Order cancelled - Patient discharged Performed By: #### L 500.2500, L100.0100 ####[facility] [address] [place], [address] PLT Normal 150-450 [facility] Comment on above: Result Comment: Canc elled via OM: Order cancelled - Patient discharged Performed By: #### L 500.2500, L100.0100 ####[facility] [address] [place], [address] RBC Normal 4.6-6.2 [facility] Comment on above: Result Comment: Canc elled via OM: Order cancelled - Patient discharged Performed By: #### L 500.2500, L100.0100 ####[facility] [address] [place], [address] RDW CV Normal 11.6-14.6 [facility] Comment on above: Result Comment: Canc elled via OM: Order cancelled - Patient discharged Performed By: #### L 500.2500, L100.0100 ####[facility] [address] [place], [address] RDW SD Normal 35.1-43.9 [facility] Comment on above: Result Comment: Canc elled via OM: Order cancelled - Patient discharged Performed By: #### L 500.2500, L100.0100 ####[facility] [address] [place], [address] WBC Normal 4.4-11.0 [facility] Comment on above: Result Comment: Canc elled via OM: Order cancelled - Patient discharged Performed By: #### L 500.2500, L100.0100 ####[facility] [address] [place], [address] Basic Metabolic Profile (BMP )on 05-25-2024 BUN Normal 7-18 [facility] Comment on above: Result Comment: Canc elled via OM: Order cancelled - Patient discharged Performed By: #### L 100.0100, L500.2500 ####[facility] [address] [place], [address] BUN/CRE Normal 10-20 [facility] Comment on above: Result Comment: Canc elled via OM: Order cancelled - Patient discharged Performed By: #### L 100.0100, L500.2500 ####[facility] [address] [place], [address] CA,Total Normal 8.5-10.1 [facility] Comment on above: Result Comment: Canc elled via OM: Order cancelled - Patient discharged Performed By: #### L 100.0100, L500.2500 ####[facility] [address] [place], [address] CL Normal 98-107 [facility] Comment on above: Result Comment: Canc elled via OM: Order cancelled - Patient discharged Performed By: #### L 100.0100, L500.2500 ####[facility] [address] [place], [address] CO2 Normal 21.0-32.0 [facility] Comment on above: Result Comment: Canc elled via OM: Order cancelled - Patient discharged Performed By: #### L 100.0100, L500.2500 ####[facility] [address] [place], [address] CREAT,SERUM Normal 0.70-1.30 [facility] Comment on above: Result Comment: Canc elled via OM: Order cancelled - Patient discharged Performed By: #### L 100.0100, L500.2500 ####[facility] [address] [place], [address] EST GFR Normal >60 [facility] Comment on above: Result Comment: Canc elled via OM: Order cancelled - Patient discharged Performed By: #### L 100.0100, L500.2500 ####[facility] [address] [place], [address] EST GFR - AA Normal >60 [facility] Comment on above: Result Comment: Canc elled via OM: Order cancelled - Patient discharged Performed By: #### L 100.0100, L500.2500 ####[facility] [address] [place], [address] GAP Normal 5-15 [facility] Comment on above: Result Comment: Canc elled via OM: Order cancelled - Patient discharged Performed By: #### L 100.0100, L500.2500 ####[facility] [address] [place], [address] GLU Normal 74-106 [facility] Comment on above: Result Comment: Canc elled via OM: Order cancelled - Patient discharged Performed By: #### L 100.0100, L500.2500 ####[facility] [address] [place], [address] Potassium Normal 3.5-5.1 [facility] Comment on above: Result Comment: Canc elled via OM: Order cancelled - Patient discharged Performed By: #### L 100.0100, L500.2500 ####[facility] [address] [place], [address] Basic Metabolic Profile (BMP) Normal 136-145 [facility] Comment on above: Result Comment: Canc elled via OM: Order cancelled - Patient discharged Performed By: #### L 100.0100, L500.2500 ####[facility] [address] [place], [address] CBC W/Diff, Automatedon 01-3 Absolute Neut Normal 2.0-7.7 [facility] Comment on above: Result Comment: Canc elled via OM: Order cancelled - Patient discharged Performed By: #### L 100.0100, L500.2500 ####[facility] [address] [place], [address] HCT Normal 40-54 [facility] Comment on above: Result Comment: Canc elled via OM: Order cancelled - Patient discharged Performed By: #### L 100.0100, L500.2500 ####[facility] [address] [place], [address] HGB Normal 13.0-16.5 [facility] Comment on above: Result Comment: Canc elled via OM: Order cancelled - Patient discharged Performed By: #### L 100.0100, L500.2500 ####[facility] [address] [place], [address] MCH Normal 27.0-32.0 [facility] Comment on above: Result Comment: Canc elled via OM: Order cancelled - Patient discharged Performed By: #### L 100.0100, L500.2500 ####[facility] [address] [place], [address] MCHC Normal 32-36 [facility] Comment on above: Result Comment: Canc elled via OM: Order cancelled - Patient discharged Performed By: #### L 100.0100, L500.2500 ####[facility] [address] [place], [address] MCV Normal 80-94 [facility] Comment on above: Result Comment: Canc elled via OM: Order cancelled - Patient discharged Performed By: #### L 100.0100, L500.2500 ####[facility] [address] [place], [address] NEUT% Normal 47-70 [facility] Comment on above: Result Comment: Canc elled via OM: Order cancelled - Patient discharged Performed By: #### L 100.0100, L500.2500 ####[facility] [address] [place], [address] PLT Normal 150-450 [facility] Comment on above: Result Comment: Canc elled via OM: Order cancelled - Patient discharged Performed By: #### L 100.0100, L500.2500 ####[facility] [address] [place], [address] RBC Normal 4.6-6.2 [facility] Comment on above: Result Comment: Canc elled via OM: Order cancelled - Patient discharged Performed By: #### L 100.0100, L500.2500 ####[facility] [address] [place], [address] RDW CV Normal 11.6-14.6 [facility] Comment on above: Result Comment: Canc elled via OM: Order cancelled - Patient discharged Performed By: #### L 100.0100, L500.2500 ####[facility] [address] [place], [address] RDW SD Normal 35.1-43.9 [facility] Comment on above: Result Comment: Canc elled via OM: Order cancelled - Patient discharged Performed By: #### L 100.0100, L500.2500 ####[facility] [address] [place], [address] WBC Normal 4.4-11.0 [facility] Comment on above: Result Comment: Canc elled via OM: Order cancelled - Patient discharged Performed By: #### L 100.0100, L500.2500 ####[facility] [address] [place], [address] Basic Metabolic Profile (BMP )on 05-24-2024 BUN Normal 7-18 [facility] Comment on above: Result Comment: Canc elled via OM: Order cancelled - Patient discharged Performed By: #### L 500.2500, L100.0100 ####[facility] [address] [place], [address] BUN/CRE Normal 10-20 [facility] Comment on above: Result Comment: Canc elled via OM: Order cancelled - Patient discharged Performed By: #### L 500.2500, L100.0100 ####[facility] [address] [place], [address] CA,Total Normal 8.5-10.1 [facility] Comment on above: Result Comment: Canc elled via OM: Order cancelled - Patient discharged Performed By: #### L 500.2500, L100.0100 ####[facility] [address] [place], [address] CL Normal 98-107 [facility] Comment on above: Result Comment: Canc elled via OM: Order cancelled - Patient discharged Performed By: #### L 500.2500, L100.0100 ####[facility] [address] [place], [address] CO2 Normal 21.0-32.0 [facility] Comment on above: Result Comment: Canc elled via OM: Order cancelled - Patient discharged Performed By: #### L 500.2500, L100.0100 ####[facility] [address] [place], [address] CREAT,SERUM Normal 0.70-1.30 [facility] Comment on above: Result Comment: Canc elled via OM: Order cancelled - Patient discharged Performed By: #### L 500.2500, L100.0100 ####[facility] [address] [place], [address] EST GFR Normal >60 [facility] Comment on above: Result Comment: Canc elled via OM: Order cancelled - Patient discharged Performed By: #### L 500.2500, L100.0100 ####[facility] [address] [place], [address] EST GFR - AA Normal >60 [facility] Comment on above: Result Comment: Canc elled via OM: Order cancelled - Patient discharged Performed By: #### L 500.2500, L100.0100 ####[facility] [address] [place], [address] GAP Normal 5-15 [facility] Comment on above: Result Comment: Canc elled via OM: Order cancelled - Patient discharged Performed By: #### L 500.2500, L100.0100 ####[facility] [address] [place], [address] GLU Normal 74-106 [facility] Comment on above: Result Comment: Canc elled via OM: Order cancelled - Patient discharged Performed By: #### L 500.2500, L100.0100 ####[facility] [address] [place], [address] Potassium Normal 3.5-5.1 [facility] Comment on above: Result Comment: Canc elled via OM: Order cancelled - Patient discharged Performed By: #### L 500.2500, L100.0100 ####[facility] [address] [place], [address] Basic Metabolic Profile (BMP) Normal 136-145 [facility] Comment on above: Result Comment: Canc elled via OM: Order cancelled - Patient discharged Performed By: #### L 500.2500, L100.0100 ####[facility] [address] [place], [address] CBC W/Diff, Automatedon 01-3 0-2024 Absolute Neut Normal 2.0-7.7 [facility] Comment on above: Result Comment: Canc elled via OM: Order cancelled - Patient discharged Performed By: #### L 500.2500, L100.0100 ####[facility] [address] [place], [address] HCT Normal 40-54 [facility] Comment on above: Result Comment: Canc elled via OM: Order cancelled - Patient discharged Performed By: #### L 500.2500, L100.0100 ####[facility] [address] [place], [address] HGB Normal 13.0-16.5 [facility] Comment on above: Result Comment: Canc elled via OM: Order cancelled - Patient discharged Performed By: #### L 500.2500, L100.0100 ####[facility] [address] [place], [address] MCH Normal 27.0-32.0 [facility] Comment on above: Result Comment: Canc elled via OM: Order cancelled - Patient discharged Performed By: #### L 500.2500, L100.0100 ####[facility] [address] [place], [address] MCHC Normal 32-36 [facility] Comment on above: Result Comment: Canc elled via OM: Order cancelled - Patient discharged Performed By: #### L 500.2500, L100.0100 ####[facility] [address] [place], [address] MCV Normal 80-94 [facility] Comment on above: Result Comment: Canc elled via OM: Order cancelled - Patient discharged Performed By: #### L 500.2500, L100.0100 ####[facility] [address] [place], [address] NEUT% Normal 47-70 [facility] Comment on above: Result Comment: Canc elled via OM: Order cancelled - Patient discharged Performed By: #### L 500.2500, L100.0100 ####[facility] [address] [place], [address] PLT Normal 150-450 [facility] Comment on above: Result Comment: Canc elled via OM: Order cancelled - Patient discharged Performed By: #### L 500.2500, L100.0100 ####[facility] [address] [place], [address] RBC Normal 4.6-6.2 [facility] Comment on above: Result Comment: Canc elled via OM: Order cancelled - Patient discharged Performed By: #### L 500.2500, L100.0100 ####[facility] [address] [place], [address] RDW CV Normal 11.6-14.6 [facility] Comment on above: Result Comment: Canc elled via OM: Order cancelled - Patient discharged Performed By: #### L 500.2500, L100.0100 ####[facility] [address] [place], [address] RDW SD Normal 35.1-43.9 [facility] Comment on above: Result Comment: Canc elled via OM: Order cancelled - Patient discharged Performed By: #### L 500.2500, L100.0100 ####[facility] [address] [place], [address] WBC Normal 4.4-11.0 [facility] Comment on above: Result Comment: Canc elled via OM: Order cancelled - Patient discharged Performed By: #### L 500.2500, L100.0100 ####[facility] [address] [place], [address] Basic Metabolic Profile (BMP )on 05-23-2024 BUN Normal 7-18 [facility] Comment on above: Result Comment: Canc elled via OM: Order cancelled - Patient discharged Performed By: #### L 500.2500, L100.0100 ####[facility] [address] [place], [address] BUN/CRE Normal 10-20 [facility] Comment on above: Result Comment: Canc elled via OM: Order cancelled - Patient discharged Performed By: #### L 500.2500, L100.0100 ####[facility] [address] [place], [address] CA,Total Normal 8.5-10.1 [facility] Comment on above: Result Comment: Canc elled via OM: Order cancelled - Patient discharged Performed By: #### L 500.2500, L100.0100 ####[facility] [address] [place], [address] CL Normal 98-107 [facility] Comment on above: Result Comment: Canc elled via OM: Order cancelled - Patient discharged Performed By: #### L 500.2500, L100.0100 ####[facility] [address] [place], [address] CO2 Normal 21.0-32.0 [facility] Comment on above: Result Comment: Canc elled via OM: Order cancelled - Patient discharged Performed By: #### L 500.2500, L100.0100 ####[facility] [address] [place], [address] CREAT,SERUM Normal 0.70-1.30 [facility] Comment on above: Result Comment: Canc elled via OM: Order cancelled - Patient discharged Performed By: #### L 500.2500, L100.0100 ####[facility] [address] [place], [address] EST GFR Normal >60 [facility] Comment on above: Result Comment: Canc elled via OM: Order cancelled - Patient discharged Performed By: #### L 500.2500, L100.0100 ####[facility] [address] [place], [address] EST GFR - AA Normal >60 [facility] Comment on above: Result Comment: Canc elled via OM: Order cancelled - Patient discharged Performed By: #### L 500.2500, L100.0100 ####[facility] [address] [place], [address] GAP Normal 5-15 [facility] Comment on above: Result Comment: Canc elled via OM: Order cancelled - Patient discharged Performed By: #### L 500.2500, L100.0100 ####[facility] [address] [place], [address] GLU Normal 74-106 [facility] Comment on above: Result Comment: Canc elled via OM: Order cancelled - Patient discharged Performed By: #### L 500.2500, L100.0100 ####[facility] [address] [place], [address] Potassium Normal 3.5-5.1 [facility] Comment on above: Result Comment: Canc elled via OM: Order cancelled - Patient discharged Performed By: #### L 500.2500, L100.0100 ####[facility] [address] [place], [address] Basic Metabolic Profile (BMP) Normal 136-145 [facility] Comment on above: Result Comment: Canc elled via OM: Order cancelled - Patient discharged Performed By: #### L 500.2500, L100.0100 ####[facility] [address] [place], [address] CBC W/Diff, Automatedon 01-2 Absolute Neut Normal 2.0-7.7 [facility] Comment on above: Result Comment: Canc elled via OM: Order cancelled - Patient discharged Performed By: #### L 500.2500, L100.0100 ####[facility] [address] [place], [address] HCT Normal 40-54 [facility] Comment on above: Result Comment: Canc elled via OM: Order cancelled - Patient discharged Performed By: #### L 500.2500, L100.0100 ####[facility] [address] [place], [address] HGB Normal 13.0-16.5 [facility] Comment on above: Result Comment: Canc elled via OM: Order cancelled - Patient discharged Performed By: #### L 500.2500, L100.0100 ####[facility] [address] [place], [address] MCH Normal 27.0-32.0 [facility] Comment on above: Result Comment: Canc elled via OM: Order cancelled - Patient discharged Performed By: #### L 500.2500, L100.0100 ####[facility] [address] [place], [address] MCHC Normal 32-36 [facility] Comment on above: Result Comment: Canc elled via OM: Order cancelled - Patient discharged Performed By: #### L 500.2500, L100.0100 ####[facility] [address] [place], [address] MCV Normal 80-94 [facility] Comment on above: Result Comment: Canc elled via OM: Order cancelled - Patient discharged Performed By: #### L 500.2500, L100.0100 ####[facility] [address] [place], [address] NEUT% Normal 47-70 [facility] Comment on above: Result Comment: Canc elled via OM: Order cancelled - Patient discharged Performed By: #### L 500.2500, L100.0100 ####[facility] [address] [place], [address] PLT Normal 150-450 [facility] Comment on above: Result Comment: Canc elled via OM: Order cancelled - Patient discharged Performed By: #### L 500.2500, L100.0100 ####[facility] [address] [place], [address] RBC Normal 4.6-6.2 [facility] Comment on above: Result Comment: Canc elled via OM: Order cancelled - Patient discharged Performed By: #### L 500.2500, L100.0100 ####[facility] [address] [place], [address] RDW CV Normal 11.6-14.6 [facility] Comment on above: Result Comment: Canc elled via OM: Order cancelled - Patient discharged Performed By: #### L 500.2500, L100.0100 ####[facility] [address] [place], [address] RDW SD Normal 35.1-43.9 [facility] Comment on above: Result Comment: Canc elled via OM: Order cancelled - Patient discharged Performed By: #### L 500.2500, L100.0100 ####[facility] [address] [place], [address] WBC Normal 4.4-11.0 [facility] Comment on above: Result Comment: Canc elled via OM: Order cancelled - Patient discharged Performed By: #### L 500.2500, L100.0100 ####[facility] [address] [place], [address] CNPNon 05-23-2024 CNPN Normal [facility] Basic Metabolic Profile (BMP )on 05-22-2024 BUN Normal 7-18 [facility] Comment on above: Result Comment: Canc elled via OM: Order cancelled - Patient discharged Performed By: #### L 100.0100, L500.2500 ####[facility] [address] [place], [address] BUN/CRE Normal 10-20 [facility] Comment on above: Result Comment: Canc elled via OM: Order cancelled - Patient discharged Performed By: #### L 100.0100, L500.2500 ####[facility] [address] [place], [address] CA,Total Normal 8.5-10.1 [facility] Comment on above: Result Comment: Canc elled via OM: Order cancelled - Patient discharged Performed By: #### L 100.0100, L500.2500 ####[facility] [address] [place], [address] CL Normal 98-107 [facility] Comment on above: Result Comment: Canc elled via OM: Order cancelled - Patient discharged Performed By: #### L 100.0100, L500.2500 ####[facility] [address] [place], [address] CO2 Normal 21.0-32.0 [facility] Comment on above: Result Comment: Canc elled via OM: Order cancelled - Patient discharged Performed By: #### L 100.0100, L500.2500 ####[facility] [address] [place], [address] CREAT,SERUM Normal 0.70-1.30 [facility] Comment on above: Result Comment: Canc elled via OM: Order cancelled - Patient discharged Performed By: #### L 100.0100, L500.2500 ####[facility] [address] [place], [address] EST GFR Normal >60 [facility] Comment on above: Result Comment: Canc elled via OM: Order cancelled - Patient discharged Performed By: #### L 100.0100, L500.2500 ####[facility] [address] [place], [address] EST GFR - AA Normal >60 [facility] Comment on above: Result Comment: Canc elled via OM: Order cancelled - Patient discharged Performed By: #### L 100.0100, L500.2500 ####[facility] [address] [place], [address] GAP Normal 5-15 [facility] Comment on above: Result Comment: Canc elled via OM: Order cancelled - Patient discharged Performed By: #### L 100.0100, L500.2500 ####[facility] [address] [place], [address] GLU Normal 74-106 [facility] Comment on above: Result Comment: Canc elled via OM: Order cancelled - Patient discharged Performed By: #### L 100.0100, L500.2500 ####[facility] [address] [place], [address] Potassium Normal 3.5-5.1 [facility] Comment on above: Result Comment: Canc elled via OM: Order cancelled - Patient discharged Performed By: #### L 100.0100, L500.2500 ####[facility] [address] [place], [address] Basic Metabolic Profile (BMP) Normal 136-145 [facility] Comment on above: Result Comment: Canc elled via OM: Order cancelled - Patient discharged Performed By: #### L 100.0100, L500.2500 ####[facility] [address] [place], [address] CBC W/Diff, Automatedon -2 Absolute Neut Normal 2.0-7.7 [facility] Comment on above: Result Comment: Canc elled via OM: Order cancelled - Patient discharged Performed By: #### L 100.0100, L500.2500 ####[facility] [address] [place], [address] HCT Normal 40-54 [facility] Comment on above: Result Comment: Canc elled via OM: Order cancelled - Patient discharged Performed By: #### L 100.0100, L500.2500 ####[facility] [address] [place], [address] HGB Normal 13.0-16.5 [facility] Comment on above: Result Comment: Canc elled via OM: Order cancelled - Patient discharged Performed By: #### L 100.0100, L500.2500 ####[facility] [address] [place], [address] MCH Normal 27.0-32.0 [facility] Comment on above: Result Comment: Canc elled via OM: Order cancelled - Patient discharged Performed By: #### L 100.0100, L500.2500 ####[facility] [address] [place], [address] MCHC Normal 32-36 [facility] Comment on above: Result Comment: Canc elled via OM: Order cancelled - Patient discharged Performed By: #### L 100.0100, L500.2500 ####[facility] [address] [place], [address] MCV Normal 80-94 [facility] Comment on above: Result Comment: Canc elled via OM: Order cancelled - Patient discharged Performed By: #### L 100.0100, L500.2500 ####[facility] [address] [place], [address] NEUT% Normal 47-70 [facility] Comment on above: Result Comment: Canc elled via OM: Order cancelled - Patient discharged Performed By: #### L 100.0100, L500.2500 ####[facility] [address] [place], [address] PLT Normal 150-450 [facility] Comment on above: Result Comment: Canc elled via OM: Order cancelled - Patient discharged Performed By: #### L 100.0100, L500.2500 ####[facility] [address] [place], [address] RBC Normal 4.6-6.2 [facility] Comment on above: Result Comment: Canc elled via OM: Order cancelled - Patient discharged Performed By: #### L 100.0100, L500.2500 ####[facility] [address] [place], [address] RDW CV Normal 11.6-14.6 [facility] Comment on above: Result Comment: Canc elled via OM: Order cancelled - Patient discharged Performed By: #### L 100.0100, L500.2500 ####[facility] [address] [place], [address] RDW SD Normal 35.1-43.9 [facility] Comment on above: Result Comment: Canc elled via OM: Order cancelled - Patient discharged Performed By: #### L 100.0100, L500.2500 ####[facility] [address] [place], [address] WBC Normal 4.4-11.0 [facility] Comment on above: Result Comment: Canc elled via OM: Order cancelled - Patient discharged Performed By: #### L 100.0100, L500.2500 ####[facility] [address] [place], [address] Absolute lymphocyte countOrd ered By: Jackie Rose on 05-21-2024 Lymphocytes Auto (Unsp spec) [#/Vol] 0.88 10*3/uL 0.83-4.51 [facility] Absolute neutrophil countOrd ered By: Jackie Rose on 05-21-2024 Neutrophils (Bld) [#/Vol] 8.0 10*3/uL High 2.0-7.7 [facility] Absolute neutrophil count 8.0 X10^3/uL High 2.0-7.7 [facility] Automated lymphocyte count a s percentage of total leukocytesOrdered By: Jackie Rose on 05-21-2024 Lymphocytes/100 WBC Auto (Unsp spec) 8.7 % Low 19-41 [facility] Automated lymphocyte count as percentage of total leukocytes 8.7 % 0-10 [facility] Basic Metabolic Profile (BMP )on 05-21-2024 BUN/CRE 24.1 RATIO High 10-20 [facility] Comment on above: Performed By: #### L 100.0100, L500.2500 ####[facility] [address] [place], [address] CA,Total 8.7 mg/dL Normal 8.5-10.1 [facility] Comment on above: Performed By: #### L 100.0100, L500.2500 ####[facility] [address] [place], [address] Chloride [Moles/Vol] 101 mmol/L Normal 98-107 [facility] Comment on above: Performed By: #### L 100.0100, L500.2500 ####[facility] [address] [place], [address] CO2 [Moles/Vol] 27.0 mmol/L Normal 21.0-32.0 [facility] Comment on above: Performed By: #### L 100.0100, L500.2500 ####[facility] [address] [place], [address] Creatinine [Mass/Vol] 0.62 mg/dL Low 0.70-1.30 [facility] Comment on above: Result Comment: The validity of the calculated GFR GFRAA in patients over70 years has not been determined. Clinical correlation isessential. Performed By: #### L 100.0100, L500.2500 ####[facility] [address] [place], [address] ECRCL 116.47 ml/min Normal [facility] Comment on above: Performed By: #### L 100.0100, L500.2500 ####[facility] [address] [place], [address] EST GFR - AA 163 mL/min Normal >60 [facility] Comment on above: Result Comment: Afri can [place] GFR Calc Performed By: #### L 100.0100, L500.2500 ####[facility] [address] [place], [address] GAP 7 Normal 5-15 [facility] Comment on above: Performed By: #### L 100.0100, L500.2500 ####[facility] [address] [place], [address] GFR/1.73 sq M.predicted among non-blacks MDRD (S/P/Bld) [Vol rate/Area] 135 mL/min/{1.73_m2} Normal >60 [facility] Comment on above: Result Comment: Non- GFR Calc Performed By: #### L 100.0100, L500.2500 ####[facility] [address] [place], [address] Glucose [Mass/Vol] 154 mg/dL High 74-106 [facility] Comment on above: Result Comment: Fast ing Glucose result greater than or equal to 126 mg/dLsuggests DIABETES MELLITUS per A.D.A. criteria. Performed By: #### L 100.0100, L500.2500 ####[facility] [address] [place], [address] Potassium [Moles/Vol] 3.8 mmol/L Normal 3.5-5.1 [facility] Comment on above: Performed By: #### L 100.0100, L500.2500 ####[facility] [address] [place], [address] Sodium [Moles/Vol] 135 mmol/L Low 136-145 [facility] Comment on above: Performed By: #### L 100.0100, L500.2500 ####[facility] [address] [place], [address] Urea nitrogen [Mass/Vol] 15 mg/dL Normal 7-18 [facility] Comment on above: Performed By: #### L 100.0100, L500.2500 ####[facility] [address] [place], [address] Basophil percentageOrdered B y: Jackie Hammhéctor on 05-21-2024 Basophils/100 WBC (Bld) 0.6 % 0-1 [facility] Basophil percentage 0.6 % 0-[address] [facility] Bedside Glucoseon 05-21-2024 FINGERSTICK GLU 161 mg/dL High 74-106 [facility] Comment on above: Result Comment: JOYCE NARAYAN OF PATIENT CARE PER NURSING PROTOCOL Performed By: #### L 501.080 ####[facility] [address] [place], [address] Blood urea nitrogen (BUN)/cr eatinine ratioOrdered By: Jackie Rose on 05-21-2024 Urea nitrogen/Creatinine [Mass ratio] 24.1 mg/mg High 10-20 [facility] Blood urea nitrogen (BUN)/creatinine ratio 24.1 RATIO High 10-20 [facility] CBC W/Diff, Automatedon 04-26 Absolute Lymph 0.88 X10 3/uL Normal 0.83-4.51 [facility] Comment on above: Performed By: #### L 100.0100, L500.2500 ####[facility] [address] [place], [address] Absolute Neut 8.0 X10 3/uL High 2.0-7.7 [facility] Comment on above: Performed By: #### L 100.0100, L500.2500 ####[facility] [address] [place], [address] Basophils/100 WBC (Bld) 0.6 % Normal 0-1 [facility] Comment on above: Performed By: #### L 100.0100, L500.2500 ####[facility] [address] [place], [address] Eosinophils/100 WBC (Bld) 1.2 % Normal 0-5 [facility] Comment on above: Performed By: #### L 100.0100, L500.2500 ####[facility] [address] [place], [address] Erythrocyte distribution width (RBC) [Ratio] 16.4 % High 11.6-14.6 [facility] Comment on above: Performed By: #### L 100.0100, L500.2500 ####[facility] [address] [place], [address] Hematocrit (Bld) [Volume fraction] 37.5 % Low 40-54 [facility] Comment on above: Performed By: #### L 100.0100, L500.2500 ####[facility] [address] [place], [address] Hemoglobin (Bld) [Mass/Vol] 11.2 g/dL Low 13.0-16.5 [facility] Comment on above: Performed By: #### L 100.0100, L500.2500 ####[facility] [address] [place], [address] IG% 1.300 High 0.0-0.9 [facility] Comment on above: Result Comment: IG% - Immature Granulocytes (promyelocytes, myelocytes andmetamyelocytes) > 1% indicates that a LEFT SHIFT is Present. Performed By: #### L 100.0100, L500.2500 ####[facility] [address] [place], [address] Lymphocytes/100 WBC (Bld) 8.7 % Low 19-41 [facility] Comment on above: Performed By: #### L 100.0100, L500.2500 ####[facility] [address] [place], [address] MCH (RBC) [Entitic mass] 23.3 pg Low 27.0-32.0 [facility] Comment on above: Performed By: #### L 100.0100, L500.2500 ####[facility] [address] [place], [address] MCHC (RBC) [Mass/Vol] 29.9 g/dL Low 32-36 [facility] Comment on above: Performed By: #### L 100.0100, L500.2500 ####[facility] [address] [place], [address] MCV (RBC) [Entitic vol] 78.1 fL Low 80-94 [facility] Comment on above: Performed By: #### L 100.0100, L500.2500 ####[facility] [address] [place], [address] Monocytes/100 WBC (Bld) 8.7 % Normal 0-10 [facility] Comment on above: Performed By: #### L 100.0100, L500.2500 ####[facility] [address] [place], [address] Neutrophils/100 WBC (Bld) 79.5 % High 47-70 [facility] Comment on above: Performed By: #### L 100.0100, L500.2500 ####[facility] [address] [place], [address] Nucleated RBC (Bld) [#/Vol] 0 10*3/uL Normal 0-5 [facility] Comment on above: Performed By: #### L 100.0100, L500.2500 ####[facility] [address] [place], [address] Platelet mean volume (Bld) [Entitic vol] 9.9 fL Normal 6.2-12.0 [facility] Comment on above: Performed By: #### L 100.0100, L500.2500 ####[facility] [address] [place], [address] Platelets (Bld) [#/Vol] 373 10*3/uL Normal 150-450 [facility] Comment on above: Performed By: #### L 100.0100, L500.2500 ####[facility] [address] [place], [address] RBC (Bld) [#/Vol] 4.80 10*6/uL Normal 4.6-6.[address] [facility] Comment on above: Performed By: #### L 100.0100, L500.2500 ####[facility] [address] [place], [address] RDW SD 46.2 fl High 35.1-43.9 [facility] Comment on above: Performed By: #### L 100.0100, L500.2500 ####[facility] [address] [place], [address] WBC (Bld) [#/Vol] 10.1 10*3/uL Normal 4.4-11.[address] [facility] Comment on above: Performed By: #### L 100.0100, L500.2500 ####[facility] [address] [place], [address] Calcium [Mass/Vol]Ordered By : Jackie Rose on 05-21-2024 Serum or plasma calcium measurement (mass/volume) 8.7 mg/dL 8.5-10.1 [facility] Carbon dioxide measurementOr dered By: Jackie Rose on 05-21-2024 CO2 [Moles/Vol] 27.0 mmol/L 21.0-32.0 [facility] Carbon dioxide measurement 27.0 mmol/L 21.0-32. 0 [facility] Chloride measurementOrdered By: Jackie Rose on 05-21-2024 Chloride [Moles/Vol] 101 mmol/L 98-107 [facility] Chloride measurement 101 mmol/L 98-107 [facility] Creatinine [Mass/Vol]Ordered By: Jackie Rose on 05-21-2024 Serum or plasma creatinine measurement (mass/volume) 0.62 mg/dL Low 0.70-1.30 [facility] Discharge Instructionon 04-26 Discharge Instruction Normal [facility] Eosinophil percentageOrdered By: Jackie Rose on 05-21-2024 Eosinophils/100 WBC (Bld) 1.2 % 0-5 [facility] Eosinophil percentage 1.2 % 0-5 [facility] Erythrocyte distribution wid th (RBC) [Ratio]Ordered By: Jackie Rose on 05-21-2024 Erythrocyte distribution width ratio 16.4 % High 11.6-14.6 [facility] Erythrocyte distribution width standard deviation 46.2 fl High 35.1-43.9 [facility] Erythrocyte distribution wid th ratioOrdered By: Jackie Rose on 05-21-2024 Erythrocyte distribution width (RBC) [Ratio] 16.4 % High 11.6-14.6 [facility] Erythrocyte distribution wid th standard deviationOrdered By: Jackie Rose on 05-21-2024 Erythrocyte distribution width (RBC) [Entitic vol] 46.2 fL High 35.1-43.9 [facility] Erythrocyte distribution width (RBC) [Ratio] 46.2 fl High 35.1-43.9 [facility] Estimated glomerular filtrat ion rate (GFR) AmericanOrdered By: Jackie Rose on 05-21-2024 Estimated GFR (MDRD) Amer 163 mL/min >60 [facility] Comment on above: GFR Calc Estimated glomerular filtration rate (GFR) 163 mL/min >60 [facility] Estimation of creatinine peyman aranceOrdered By: Jackie Rose on 05-21-2024 Estimated Creatinine Clearance Calc 116.47 ml/min [facility] Estimation of creatinine clearance 116.47 ml/min [facility] Glomerular filtration rate ( GFR) estimationOrdered By: Jackie Rose on 05-21-2024 Estimated GFR (MDRD) Non-Af Amer 135 mL/min >60 [facility] Comment on above: Non- GFR Calc GFR/1.73 sq M.predicted among non-blacks MDRD (S/P/Bld) [Vol rate/Area] 135 mL/min/{1.73_m2} >60 [facility] Glomerular filtration rate (GFR) estimation 135 mL/min >60 [facility] Glucose measurementOrdered B y: Jackie Rose on 05-21-2024 Glucose [Mass/Vol] 154 mg/dL High 74-106 [facility] Comment on above: Fasting Glucose resu lt greater than or equal to 126 mg/dL suggests DIABETES MELLITUS per A.D.A. criteria. Glucose measurement 154 mg/dL [address] [facility] deOrdered By: Baron Dhillon on 05-21-2024 Bedside Glucose (Misc Panel) 161 mg/dL [place] [address] [facility] Comment on above: MANAGEMENT OF PATIEN T CARE PER NURSING PROTOCOL Glucose [Mass/Vol] 161 mg/dL High 74-106 [facility] Glucose measurement at bedside 161 mg/dL [place] [address] [facility] Hematocrit Auto (Bld) [Volum e fraction]Ordered By: Jackie Rose on 05-21-2024 Hematocrit (Bld) [Volume fraction] 37.5 % Low 40-54 [facility] Automated blood hematocrit (percentage) 37.5 % Low 40-54 [facility] Hemoglobin measurementOrdere d By: Jackie Rose on 05-21-2024 Hemoglobin (Bld) [Mass/Vol] 11.2 g/dL Low 13.0-16.5 [facility] Hemoglobin measurement 11.2 g/dL Low 13.0-16.5 [facility] Immature granulocytes/100 WB C Auto (Bld)Ordered By: Jackie Rose on 05-21-2024 Immature granulocytes/100 WBC (Bld) 1.300 % High 0.0-0.9 [facility] Comment on above: IG% - Immature Granu locytes (promyelocytes, myelocytes and metamyelocytes) > 1% indicates that a LEFT SHIFT is Present. Automated immature granulocyte percentage 1.300 % High 0.0-0.9 [facility] Lymphocytes Auto (Unsp spec) [#/Vol]Ordered By: Jackie Rose on 05-21-2024 Lymphocytes (Bld) [#/Vol] 0.88 10*3/uL 0.83-4.5 1 [facility] Absolute lymphocyte count 0.88 X10^3/uL 0.83-4. 51 [facility] Lymphocytes/100 WBC Auto (Un sp spec)Ordered By: Jackie Rose on 05-21-2024 Lymphocytes/100 WBC (Bld) 8.7 % Low 19-41 [facility] MCV (RBC) [Entitic vol]Order ed By: Jackie Rose on 05-21-2024 MCV (mean corpuscular volume) determination 78.1 fL Low 80-94 [facility] MCV (mean corpuscular volume ) determinationOrdered By: Jackie Rose on 05-21-2024 MCV (RBC) [Entitic vol] 78.1 fL Low 80-94 [facility] Mean corpuscular hemoglobin (MCH) determinationOrdered By: Jackie Rose on 05-21-2024 MCH (RBC) [Entitic mass] 23.3 pg Low 27.0-32.0 [facility] Mean corpuscular hemoglobin (MCH) determination 23.3 pg Low 27.0-32.0 [facility] Mean corpuscular hemoglobin concentration (MCHC) determinationOrdered By: Jackie Rose on 05-21-2024 MCHC (RBC) [Mass/Vol] 29.9 g/dL Low 32-36 [facility] Mean corpuscular hemoglobin concentration (MCHC) determination 29.9 g/dL Low 32-36 [facility] Mean platelet volume determi nationOrdered By: Jackie Rose on 05-21-2024 Platelet mean volume (Bld) [Entitic vol] 9.9 fL 6.2-12.0 [facility] Mean platelet volume determination 9.9 fl 6.2-12.0 [facility] Monocyte percentageOrdered B y: Jackie Rose on 05-21-2024 Monocytes/100 WBC (Bld) 8.7 % 0-10 [facility] Neutrophil percentageOrdered By: Jackie Rose on 05-21-2024 Neutrophils/100 WBC (Bld) 79.5 % High 47-70 [facility] Neutrophil percentage 79.5 % High 47-70 [facility] Nucleated red blood cell per centageOrdered By: Jackie Rose on 05-21-2024 Nucleated RBC/100 WBC (Bld) [Ratio] 0 % 0-5 [facility] Nucleated red blood cell percentage 0 % 0-5 [facility] Platelet countOrdered By: Ngozi Rose on 05-21-2024 Platelets (Bld) [#/Vol] 373 10*3/uL 150-450 [facility] Platelet count 373 K/mm3 150-450 [facility] Potassium measurementOrdered By: Jackie Rose on 05-21-2024 Potassium [Moles/Vol] 3.8 mmol/L 3.5-5.1 [facility] Potassium measurement 3.8 mmol/L 3.5-5.1 [facility] RBC Auto (Bld) [#/Vol]Ordere d By: Jackie Rose on 05-21-2024 RBC (Bld) [#/Vol] 4.80 10*6/uL 4.6-6.[address] [facility] Automated blood erythrocyte count 4.80 M/mm3 4.6-6.2 [facility] Serum anion gap measurementO rdered By: Jackie Rose on 05-21-2024 Anion gap [Moles/Vol] 7 mmol/L 5-15 [facility] Serum anion gap measurement 7 5-15 [facility] Serum or plasma calcium yvonne urement (mass/volume)Ordered By: Jackie Rose on 05-21-2024 Calcium [Mass/Vol] 8.7 mg/dL 8.5-10.1 [facility] Serum or plasma creatinine m easurement (mass/volume)Ordered By: Jackie Rose on 05-21-2024 Creatinine [Mass/Vol] 0.62 mg/dL Low 0.70-1.30 [facility] Comment on above: The validity of the calculated GFR & GFRAA in patients over 70 years has not been determined. Clinical correlation is essential. Serum or plasma urea nitroge n measurement (mass/volume)Ordered By: Jackie Rose on 05-21-2024 Urea nitrogen [Mass/Vol] 15 mg/dL 7-18 [facility] Sodium levelOrdered By: Jackie Rose on 05-21-2024 Sodium [Moles/Vol] 135 mmol/L Low 136-145 [facility] Sodium level 135 mmol/L Low 136-145 [facility] Urea nitrogen [Mass/Vol]Orde red By: Jackie Rose on 05-21-2024 Serum or plasma urea nitrogen measurement (mass/volume) 15 mg/dL 7-18 [facility] White blood cell (WBC) count Ordered By: Jackie Rose on 05-21-2024 WBC (Bld) [#/Vol] 10.1 10*3/uL 4.4-11.[address] [facility] White blood cell (WBC) count 10.1 K/mm3 4.4-11.0 [facility] Basic Metabolic Profile (BMP )on 05-20-2024 BUN/CRE 24.0 RATIO High 10-20 [facility] Comment on above: Performed By: #### L 500.2500, L100.0100 ####[facility] [address] [place], [address] CA,Total 8.7 mg/dL Normal 8.5-10.1 [facility] Comment on above: Performed By: #### L 500.2500, L100.0100 ####[facility] [address] [place], [address] Chloride [Moles/Vol] 102 mmol/L Normal 98-107 [facility] Comment on above: Performed By: #### L 500.2500, L100.0100 ####[facility] [address] [place], [address] CO2 [Moles/Vol] 31.0 mmol/L Normal 21.0-32.0 [facility] Comment on above: Performed By: #### L 500.2500, L100.0100 ####[facility] [address] [place], [address] Creatinine [Mass/Vol] 0.71 mg/dL Normal 0.70-1.30 [facility] Comment on above: Result Comment: The validity of the calculated GFR GFRAA in patients over70 years has not been determined. Clinical correlation isessential. Performed By: #### L 500.2500, L100.0100 ####[facility] [address] [place], [address] ECRCL 116.47 ml/min Normal [facility] Comment on above: Performed By: #### L 500.2500, L100.0100 ####[facility] [address] [place], [address] EST GFR - AA 140 mL/min Normal >60 [facility] Comment on above: Result Comment: Afri can [place]ican GFR Calc Performed By: #### L 500.2500, L100.0100 ####[facility] [address] [place], [address] GAP 6 Normal 5-15 [facility] Comment on above: Performed By: #### L 500.2500, L100.0100 ####[facility] [address] [place], [address] GFR/1.73 sq M.predicted among non-blacks MDRD (S/P/Bld) [Vol rate/Area] 116 mL/min/{1.73_m2} Normal >60 [facility] Comment on above: Result Comment: Non- GFR Calc Performed By: #### L 500.2500, L100.0100 ####[facility] [address] [place], [address] Glucose [Mass/Vol] 153 mg/dL High 74-106 [facility] Comment on above: Result Comment: Fast ing Glucose result greater than or equal to 126 mg/dLsuggests DIABETES MELLITUS per A.D.A. criteria. Performed By: #### L 500.2500, L100.0100 ####[facility] [address] [place], [address] Potassium [Moles/Vol] 4.0 mmol/L Normal 3.5-5.1 [facility] Comment on above: Performed By: #### L 500.2500, L100.0100 ####[facility] [address] [place], [address] Sodium [Moles/Vol] 138 mmol/L Normal 136-145 [facility] Comment on above: Performed By: #### L 500.2500, L100.0100 ####[facility] [address] [place], [address] Urea nitrogen [Mass/Vol] 17 mg/dL Normal 7-18 [facility] Comment on above: Performed By: #### L 500.2500, L100.0100 ####[facility] [address] [place], [address] Bedside Glucoseon 05-20-2024 FINGERSTICK GLU 172 mg/dL High 74-106 [facility] Comment on above: Result Comment: JOYCE GEMENT OF PATIENT CARE PER NURSING PROTOCOL Performed By: #### L 501.080 ####[facility] [address] [place], [address] FINGERSTICK GLU 158 mg/dL High 74-106 [facility] Comment on above: Result Comment: JOYCE GEMENT OF PATIENT CARE PER NURSING PROTOCOL Performed By: #### L 501.080 ####[facility] [address] [place], [address] FINGERSTICK GLU 211 mg/dL High 74-106 [facility] Comment on above: Result Comment: JOYCE GEMENT OF PATIENT CARE PER NURSING PROTOCOL Performed By: #### L 501.080 ####[facility] [address] [place], [address] FINGERSTICK GLU 154 mg/dL High 74-106 [facility] Comment on above: Result Comment: JOYCE GEMENT OF PATIENT CARE PER NURSING PROTOCOL Performed By: #### L 501.080 ####[facility] [address] [place], [address] FINGERSTICK GLU 209 mg/dL High 74-106 [facility] Comment on above: Result Comment: JOYCE NARAYAN OF PATIENT CARE PER NURSING PROTOCOL Performed By: #### L 501.080 ####[facility] [address] [place], [address] CBC W/Diff, Automatedon 04-26 Absolute Lymph 0.93 X10 3/uL Normal 0.83-4.51 [facility] Comment on above: Performed By: #### L 500.2500, L100.0100 ####[facility] [address] [place], [address] Absolute Neut 8.7 X10 3/uL High 2.0-7.7 [facility] Comment on above: Performed By: #### L 500.2500, L100.0100 ####[facility] [address] [place], [address] Basophils/100 WBC (Bld) 0.6 % Normal 0-1 [facility] Comment on above: Performed By: #### L 500.2500, L100.0100 ####[facility] [address] [place], [address] Eosinophils/100 WBC (Bld) 1.2 % Normal 0-5 [facility] Comment on above: Performed By: #### L 500.2500, L100.0100 ####[facility] [address] [place], [address] Erythrocyte distribution width (RBC) [Ratio] 16.4 % High 11.6-14.6 [facility] Comment on above: Performed By: #### L 500.2500, L100.0100 ####[facility] [address] [place], [address] Hematocrit (Bld) [Volume fraction] 39.2 % Low 40-54 [facility] Comment on above: Performed By: #### L 500.2500, L100.0100 ####[facility] [address] [place], [address] Hemoglobin (Bld) [Mass/Vol] 11.5 g/dL Low 13.0-16.5 [facility] Comment on above: Performed By: #### L 500.2500, L100.0100 ####[facility] [address] [place], [address] IG% 1.300 High 0.0-0.9 [facility] Comment on above: Result Comment: IG% - Immature Granulocytes (promyelocytes, myelocytes andmetamyelocytes) > 1% indicates that a LEFT SHIFT is Present. Performed By: #### L 500.2500, L100.0100 ####[facility] [address] [place], [address] Lymphocytes/100 WBC (Bld) 8.4 % Low 19-41 [facility] Comment on above: Performed By: #### L 500.2500, L100.0100 ####[facility] [address] [place], [address] MCH (RBC) [Entitic mass] 23.1 pg Low 27.0-32.0 [facility] Comment on above: Performed By: #### L 500.2500, L100.0100 ####[facility] [address] [place], [address] MCHC (RBC) [Mass/Vol] 29.3 g/dL Low 32-36 [facility] Comment on above: Performed By: #### L 500.2500, L100.0100 ####[facility] [address] [place], [address] MCV (RBC) [Entitic vol] 78.9 fL Low 80-94 [facility] Comment on above: Performed By: #### L 500.2500, L100.0100 ####[facility] [address] [place], [address] Monocytes/100 WBC (Bld) 10.2 % High 0-10 [facility] Comment on above: Performed By: #### L 500.2500, L100.0100 ####[facility] [address] [place], [address] Neutrophils/100 WBC (Bld) 78.3 % High 47-70 [facility] Comment on above: Performed By: #### L 500.2500, L100.0100 ####[facility] [address] [place], [address] Nucleated RBC (Bld) [#/Vol] 0 10*3/uL Normal 0-5 [facility] Comment on above: Performed By: #### L 500.2500, L100.0100 ####[facility] [address] [place], [address] Platelet mean volume (Bld) [Entitic vol] 10.1 fL Normal 6.2-12.0 [facility] Comment on above: Performed By: #### L 500.2500, L100.0100 ####[facility] [address] [place], [address] Platelets (Bld) [#/Vol] 385 10*3/uL Normal 150-450 [facility] Comment on above: Performed By: #### L 500.2500, L100.0100 ####[facility] [address] [place], [address] RBC (Bld) [#/Vol] 4.97 10*6/uL Normal 4.6-6.[address] [facility] Comment on above: Performed By: #### L 500.2500, L100.0100 ####[facility] [address] [place], [address] RDW SD 46.7 fl High 35.1-43.9 [facility] Comment on above: Performed By: #### L 500.2500, L100.0100 ####[facility] [address] [place], [address] WBC (Bld) [#/Vol] 11.1 10*3/uL High 4.4-11.[address] [facility] Comment on above: Performed By: #### L 500.2500, L100.0100 ####[facility] [address] [place], [address] Basic Metabolic Profile (BMP )on 05-19-2024 BUN/CRE 26.2 RATIO High 10-20 [facility] Comment on above: Performed By: #### L 100.0100, L500.2500 ####[facility] [address] [place], [address] CA,Total 8.8 mg/dL Normal 8.5-10.1 [facility] Comment on above: Performed By: #### L 100.0100, L500.2500 ####[facility] [address] [place], [address] Chloride [Moles/Vol] 105 mmol/L Normal 98-107 [facility] Comment on above: Performed By: #### L 100.0100, L500.2500 ####[facility] [address] [place], [address] CO2 [Moles/Vol] 25.0 mmol/L Normal 21.0-32.0 [facility] Comment on above: Performed By: #### L 100.0100, L500.2500 ####[facility] [address] [place], [address] Creatinine [Mass/Vol] 0.65 mg/dL Low 0.70-1.30 [facility] Comment on above: Result Comment: The validity of the calculated GFR GFRAA in patients over70 years has not been determined. Clinical correlation isessential. Performed By: #### L 100.0100, L500.2500 ####[facility] [address] [place], [address] ECRCL 116.47 ml/min Normal [facility] Comment on above: Performed By: #### L 100.0100, L500.2500 ####[facility] [address] [place], [address] EST GFR - AA 156 mL/min Normal >60 [facility] Comment on above: Result Comment: Afri can [place] GFR Calc Performed By: #### L 100.0100, L500.2500 ####[facility] [address] [place], [address] GAP 8 Normal 5-15 [facility] Comment on above: Performed By: #### L 100.0100, L500.2500 ####[facility] [address] [place], [address] GFR/1.73 sq M.predicted among non-blacks MDRD (S/P/Bld) [Vol rate/Area] 129 mL/min/{1.73_m2} Normal >60 [facility] Comment on above: Result Comment: Non- GFR Calc Performed By: #### L 100.0100, L500.2500 ####[facility] [address] [place], [address] Glucose [Mass/Vol] 134 mg/dL High 74-106 [facility] Comment on above: Result Comment: Fast ing Glucose result greater than or equal to 126 mg/dLsuggests DIABETES MELLITUS per A.D.A. criteria. Performed By: #### L 100.0100, L500.2500 ####[facility] [address] [place], [address] Potassium [Moles/Vol] 3.9 mmol/L Normal 3.5-5.1 [facility] Comment on above: Performed By: #### L 100.0100, L500.2500 ####[facility] [address] [place], [address] Sodium [Moles/Vol] 138 mmol/L Normal 136-145 [facility] Comment on above: Performed By: #### L 100.0100, L500.2500 ####[facility] [address] [place], [address] Urea nitrogen [Mass/Vol] 17 mg/dL Normal 7-18 [facility] Comment on above: Performed By: #### L 100.0100, L500.2500 ####[facility] [address] [place], [address] Bedside Glucoseon 05-19-2024 FINGERSTICK GLU 150 mg/dL High [address] [place] [address] Comment on above: Result Comment: JOYCE GEMENT OF PATIENT CARE PER NURSING PROTOCOL Performed By: #### L 501.080 ####[facility] [address] [place], [address] FINGERSTICK GLU 199 mg/dL High [facility]106 [facility] Comment on above: Result Comment: JOYCE GEMENT OF PATIENT CARE PER NURSING PROTOCOL Performed By: #### L 501.080 ####[facility] [address] [place], [address] FINGERSTICK GLU 122 mg/dL High -[address] [place] [address] Comment on above: Result Comment: JOYCE GEMENT OF PATIENT CARE PER NURSING PROTOCOL Performed By: #### L 501.080 ####[facility] [address] [place], [address] FINGERSTICK GLU 190 mg/dL High -[address] [place] [address] Comment on above: Result Comment: JOYCE GEMENT OF PATIENT CARE PER NURSING PROTOCOL Performed By: #### L 501.080 ####[facility] [address] [place], [address] CBC W/Diff, Automatedon 01-2 5-2024 Absolute Lymph 0.81 X10 3/uL Low 0.83-4.51 [facility] Comment on above: Performed By: #### L 100.0100, L500.2500 ####[facility] [address] [place], [address] Absolute Neut 8.3 X10 3/uL High 2.0-7.7 [facility] Comment on above: Performed By: #### L 100.0100, L500.2500 ####[facility] [address] [place], [address] Basophils/100 WBC (Bld) 0.5 % Normal 0-1 [facility] Comment on above: Performed By: #### L 100.0100, L500.2500 ####[facility] [address] [place], [address] Eosinophils/100 WBC (Bld) 1.1 % Normal 0-5 [facility] Comment on above: Performed By: #### L 100.0100, L500.2500 ####[facility] [address] [place], [address] Erythrocyte distribution width (RBC) [Ratio] 16.5 % High 11.6-14.6 [facility] Comment on above: Performed By: #### L 100.0100, L500.2500 ####[facility] [address] [place], [address] Hematocrit (Bld) [Volume fraction] 38.1 % Low 40-54 [facility] Comment on above: Performed By: #### L 100.0100, L500.2500 ####[facility] [address] [place], [address] Hemoglobin (Bld) [Mass/Vol] 11.2 g/dL Low 13.0-16.5 [facility] Comment on above: Performed By: #### L 100.0100, L500.2500 ####[facility] [address] [place], [address] IG% 0.800 Normal 0.0-0.9 [facility] Comment on above: Result Comment: IG% - Immature Granulocytes (promyelocytes, myelocytes andmetamyelocytes) > 1% indicates that a LEFT SHIFT is Present. Performed By: #### L 100.0100, L500.2500 ####[facility] [address] [place], [address] Lymphocytes/100 WBC (Bld) 7.7 % Low 19-41 [facility] Comment on above: Performed By: #### L 100.0100, L500.2500 ####[facility] [address] [place], [address] MCH (RBC) [Entitic mass] 23.1 pg Low 27.0-32.0 [facility] Comment on above: Performed By: #### L 100.0100, L500.2500 ####[facility] [address] [place], [address] MCHC (RBC) [Mass/Vol] 29.4 g/dL Low 32-36 [facility] Comment on above: Performed By: #### L 100.0100, L500.2500 ####[facility] [address] [place], [address] MCV (RBC) [Entitic vol] 78.7 fL Low 80-94 [facility] Comment on above: Performed By: #### L 100.0100, L500.2500 ####[facility] [address] [place], [address] Monocytes/100 WBC (Bld) 11.1 % High 0-10 [facility] Comment on above: Performed By: #### L 100.0100, L500.2500 ####[facility] [address] [place], [address] Neutrophils/100 WBC (Bld) 78.8 % High 47-70 [facility] Comment on above: Performed By: #### L 100.0100, L500.2500 ####[facility] [address] [place], [address] Nucleated RBC (Bld) [#/Vol] 0 10*3/uL Normal 0-5 [facility] Comment on above: Performed By: #### L 100.0100, L500.2500 ####[facility] [address] [place], [address] Platelet mean volume (Bld) [Entitic vol] 10.1 fL Normal 6.2-12.0 [facility] Comment on above: Performed By: #### L 100.0100, L500.2500 ####[facility] [address] [place], [address] Platelets (Bld) [#/Vol] 371 10*3/uL Normal 150-450 [facility] Comment on above: Performed By: #### L 100.0100, L500.2500 ####[facility] [address] [place], [address] RBC (Bld) [#/Vol] 4.84 10*6/uL Normal 4.6-6.[address] [facility] Comment on above: Performed By: #### L 100.0100, L500.2500 ####[facility] [address] [place], [address] RDW SD 47.2 fl High 35.1-43.9 [facility] Comment on above: Performed By: #### L 100.0100, L500.2500 ####[facility] [address] [place], [address] WBC (Bld) [#/Vol] 10.5 10*3/uL Normal 4.4-11.[address] [facility] Comment on above: Performed By: #### L 100.0100, L500.2500 ####[facility] [address] [place], [address] Magnesiumon 05-19-2024 Magnesium [Mass/Vol] 2.1 mg/dL Normal 1.6-2.6 [facility] Comment on above: Performed By: #### L 501.5200 ####[facility] [address] [place], [address] Magnesium measurementOrdered By: Jackie Rose on 05-19-2024 Magnesium [Mass/Vol] 2.1 mg/dL 1.6-2.6 [facility] Magnesium measurement 2.1 mg/dL 1.6-2.6 [facility] Basic Metabolic Profile (BMP )on 05-18-2024 BUN/CRE 21.9 RATIO High 10-20 [facility] Comment on above: Performed By: #### L 501.9520, L500.2500, L501.9985, L100.0100 ####[facility] [address] [place], [address] CA,Total 8.5 mg/dL Normal 8.5-10.1 [facility] Comment on above: Performed By: #### L 501.9520, L500.2500, L501.9985, L100.0100 ####[facility] [address] [place], [address] Chloride [Moles/Vol] 107 mmol/L Normal 98-107 [facility] Comment on above: Performed By: #### L 501.9520, L500.2500, L501.9985, L100.0100 ####[facility] [address] [place], [address] CO2 [Moles/Vol] 24.0 mmol/L Normal 21.0-32.0 [facility] Comment on above: Performed By: #### L 501.9520, L500.2500, L501.9985, L100.0100 ####[facility] [address] [place], [address] Creatinine [Mass/Vol] 0.73 mg/dL Normal 0.70-1.30 [facility] Comment on above: Result Comment: The validity of the calculated GFR GFRAA in patients over70 years has not been determined. Clinical correlation isessential. Performed By: #### L 501.9520, L500.2500, L501.9985, L100.0100 ####[facility] [address] [place], [address] ECRCL 116.48 ml/min Normal [facility] Comment on above: Performed By: #### L 501.9520, L500.2500, L501.9985, L100.0100 ####[facility] [address] [place], [address] EST GFR - AA 136 mL/min Normal >60 [facility] Comment on above: Result Comment: Afri can [place] GFR Calc Performed By: #### L 501.9520, L500.2500, L501.9985, L100.0100 ####[facility] [address] [place], [address] GAP 7 Normal 5-15 [facility] Comment on above: Performed By: #### L 501.9520, L500.2500, L501.9985, L100.0100 ####[facility] [address] [place], [address] GFR/1.73 sq M.predicted among non-blacks MDRD (S/P/Bld) [Vol rate/Area] 112 mL/min/{1.73_m2} Normal >60 [facility] Comment on above: Result Comment: Non- GFR Calc Performed By: #### L 501.9520, L500.2500, L501.9985, L100.0100 ####[facility] [address] [place], [address] Glucose [Mass/Vol] 83 mg/dL Normal 74-106 [facility] Comment on above: Performed By: #### L 501.9520, L500.2500, L501.9985, L100.0100 ####[facility] [address] [place], [address] Potassium [Moles/Vol] 3.8 mmol/L Normal 3.5-5.1 [facility] Comment on above: Performed By: #### L 501.9520, L500.2500, L501.9985, L100.0100 ####[facility] [address] [place], [address] Sodium [Moles/Vol] 138 mmol/L Normal 136-145 [facility] Comment on above: Performed By: #### L 501.9520, L500.2500, L501.9985, L100.0100 ####[facility] [address] [place], [address] Urea nitrogen [Mass/Vol] 16 mg/dL Normal 7-18 [facility] Comment on above: Performed By: #### L 501.9520, L500.2500, L501.9985, L100.0100 ####[facility] [address] [place], [address] Bedside Glucoseon 05-18-2024 FINGERSTICK GLU 181 mg/dL High 74-106 [facility] Comment on above: Result Comment: JOYCE GEMENT OF PATIENT CARE PER NURSING PROTOCOL Performed By: #### L 501.080 ####[facility] [address] [place], [address] FINGERSTICK GLU 133 mg/dL High 74-106 [facility] Comment on above: Result Comment: JOYCE GEMENT OF PATIENT CARE PER NURSING PROTOCOL Performed By: #### L 501.080 ####[facility] [address] [place], [address] FINGERSTICK GLU 81 mg/dL Normal 74-106 [facility] Comment on above: Result Comment: JOYCE NARAYAN OF PATIENT CARE PER NURSING PROTOCOL Performed By: #### L 501.080 ####[facility] [address] [place], [address] CBC W/Diff, Automatedon 04-26 PATH REV Reviewed Normal [facility] Comment on above: Result Comment: Neut rophilic leukocytosis.Microcytic anemia.Clinical correlation necessary.John Ludwig M.D. 05/18/24 AMENDED REPORT 05/18/24 1428 PATH REV previously reported as: August Performed By: #### L 503.6620, L300.8000, L500.4050, L100.0100 ####[facility] [address] [place], [address] Absolute Lymph 0.94 X10 3/uL Normal 0.83-4.51 [facility] Comment on above: Performed By: #### L 501.9520, L500.2500, L501.9985, L100.0100 ####[facility] [address] [place], [address] Absolute Neut 8.9 X10 3/uL High 2.0-7.7 [facility] Comment on above: Performed By: #### L 501.9520, L500.2500, L501.9985, L100.0100 ####[facility] [address] [place], [address] Basophils/100 WBC (Bld) 0.5 % Normal 0-1 [facility] Comment on above: Performed By: #### L 501.9520, L500.2500, L501.9985, L100.0100 ####[facility] [address] [place], [address] Eosinophils/100 WBC (Bld) 1.1 % Normal 0-5 [facility] Comment on above: Performed By: #### L 501.9520, L500.2500, L501.9985, L100.0100 ####[facility] [address] [place], [address] Erythrocyte distribution width (RBC) [Ratio] 16.5 % High 11.6-14.6 [facility] Comment on above: Performed By: #### L 501.9520, L500.2500, L501.9985, L100.0100 ####[facility] [address] [place], [address] Hematocrit (Bld) [Volume fraction] 38.0 % Low 40-54 [facility] Comment on above: Performed By: #### L 501.9520, L500.2500, L501.9985, L100.0100 ####[facility] [address] [place], [address] Hemoglobin (Bld) [Mass/Vol] 11.0 g/dL Low 13.0-16.5 [facility] Comment on above: Performed By: #### L 501.9520, L500.2500, L501.9985, L100.0100 ####[facility] [address] [place], [address] IG% 0.700 Normal 0.0-0.9 [facility] Comment on above: Result Comment: IG% - Immature Granulocytes (promyelocytes, myelocytes andmetamyelocytes) > 1% indicates that a LEFT SHIFT is Present. Performed By: #### L 501.9520, L500.2500, L501.9985, L100.0100 ####[facility] [address] [place], [address] Lymphocytes/100 WBC (Bld) 8.1 % Low 19-41 [facility] Comment on above: Performed By: #### L 501.9520, L500.2500, L501.9985, L100.0100 ####[facility] [address] [place], [address] MCH (RBC) [Entitic mass] 23.2 pg Low 27.0-32.0 [facility] Comment on above: Performed By: #### L 501.9520, L500.2500, L501.9985, L100.0100 ####[facility] [address] [place], [address] MCHC (RBC) [Mass/Vol] 28.9 g/dL Low 32-36 [facility] Comment on above: Performed By: #### L 501.9520, L500.2500, L501.9985, L100.0100 ####[facility] [address] [place], [address] MCV (RBC) [Entitic vol] 80.0 fL Normal 80-94 [facility] Comment on above: Performed By: #### L 501.9520, L500.2500, L501.9985, L100.0100 ####[facility] [address] [place], [address] Monocytes/100 WBC (Bld) 12.8 % High 0-10 [facility] Comment on above: Performed By: #### L 501.9520, L500.2500, L501.9985, L100.0100 ####[facility] [address] [place], [address] Neutrophils/100 WBC (Bld) 76.8 % High 47-70 [facility] Comment on above: Performed By: #### L 501.9520, L500.2500, L501.9985, L100.0100 ####[facility] [address] [place], [address] Nucleated RBC (Bld) [#/Vol] 0 10*3/uL Normal 0-5 [facility] Comment on above: Performed By: #### L 501.9520, L500.2500, L501.9985, L100.0100 ####[facility] [address] [place], [address] Platelet mean volume (Bld) [Entitic vol] 10.0 fL Normal 6.2-12.0 [facility] Comment on above: Performed By: #### L 501.9520, L500.2500, L501.9985, L100.0100 ####[facility] [address] [place], [address] Platelets (Bld) [#/Vol] 345 10*3/uL Normal 150-450 [facility] Comment on above: Performed By: #### L 501.9520, L500.2500, L501.9985, L100.0100 ####[facility] [address] [place], [address] RBC (Bld) [#/Vol] 4.75 10*6/uL Normal 4.6-6.[address] [facility] Comment on above: Performed By: #### L 501.9520, L500.2500, L501.9985, L100.0100 ####[facility] [address] [place], [address] RDW SD 48.0 fl High 35.1-43.9 [facility] Comment on above: Performed By: #### L 501.9520, L500.2500, L501.9985, L100.0100 ####[facility] [address] [place], [address] WBC (Bld) [#/Vol] 11.6 10*3/uL High 4.4-11.[address] [facility] Comment on above: Performed By: #### L 501.9520, L500.2500, L501.9985, L100.0100 ####[facility] [address] [place], [place], [address] HbA1c (Bld) [Mass fraction]O rdered By: Jose Casey on 05-18-2024 Hemoglobin A1c percentage 6.8 % High 3.8-5.6 [facility] Hemoglobin A1con 05-18-2024 HbA1c (Bld) [Mass fraction] 6.8 % High 3.8-5.6 [facility] Comment on above: Result Comment: Norm al < 5.7 % Prediabetic 5.7 - 6.4 % Diabetic >or= 6.5 % Please note range changes. Performed By: #### L 501.9520, L500.2500, L501.9985, L100.0100 ####[facility] [address] [place], [place], [address] Hemoglobin A1c percentageOrd ered By: Jose Casey on 05-18-2024 HbA1c (Bld) [Mass fraction] 6.8 % High 3.8-5.6 [facility] Comment on above: Normal < 5.7 % Predi abetic 5.7 - 6.4 % Diabetic >or= 6.5 % Please note range changes. L. pneumophila Ag Ql (U)Orde red By: Jose Casey on 05-18-2024 Legionella Antigen [facility] Legionella Antigen Urineon 0 05-18-2024 LEGU Normal [facility] Comment on above: Performed By: #### M 300.4600, M300.4500 ####[facility] [address] [place], [place], [address] Serum or plasma thyroid stim ulating hormone (TSH) measurement (units/volume)Ordered By: Jose Casey on 05-18-2024 TSH Qn 0.602 uIU/mL 0.358-3.740 [facility] Strep pneumoniae Antig(UR,CS F)on 05-18-2024 STPAG Normal [facility] Comment on above: Performed By: #### M 300.4600, M300.4500 ####[facility] [address] [place], [place], [address] Streptococcus pneumoniae ant igen assayOrdered By: Jose Casey on 05-18-2024 Streptococcus pneumoniae Antigen (M [facility] TSH QnOrdered By: Jose de los santos on 05-18-2024 Thyroid Stimulating Hormone (TSH) 0.602 uIU/mL 0.358-3.740 [facility] Serum or plasma thyroid stimulating hormone (TSH) measurement (units/volume) 0.602 uIU/mL 0.358-3.[address] [facility] Thyroid Stim Hormone (TSH)on 05-18-2024 TSH 0.602 uIU/mL Normal 0.358-3.740 [facility] Comment on above: Performed By: #### L 501.9520, L500.2500, L501.9985, L100.0100 ####[facility] [address] [place], [place], [id number] Urine Legionella pneumophila antigen detectionOrdered By: Jose Casey on 05-18-2024 L. pneumophila Ag Ql (U) [facility] 12 Lead EKGon 05-17-2024 12 Lead EKG Normal [facility] ALP [Catalytic activity/Vol] Ordered By: Brian Sanchez on 05-17-2024 Serum or plasma alkaline phosphatase measurement 123 U/L High 45-117 [facility] ALT [Catalytic activity/Vol] Ordered By: Brian Sanchez on 05-17-2024 Serum or plasma alanine aminotransferase (ALT) measurement 22 U/L 16-61 [facility] Albumin [Mass/Vol]Ordered By : Brian Sanchez on 05-17-2024 Serum or plasma albumin measurement (mass/volume) 2.9 g/dL Low 3.2-5.0 [facility] Albumin to globulin ratioOrd ered By: Brian Sanchez on 05-17-2024 Albumin/Globulin [Mass ratio] 0.8 {ratio} Low 0.9-2.4 [facility] Albumin to globulin ratio 0.8 RATIO Low 0.9-2.4 [facility] BNP (brain natriuretic pepti de measurement)Ordered By: Brian Sanchez on 05-17-2024 Natriuretic peptide B (Bld) [Mass/Vol] 199.6 pg/mL High 0-100 [facility] BNP (brain natriuretic peptide measurement) 199.6 pg/mL High 0-100 [facility] BNP,B-Type NATRIURETIC PEPTI Soheila 05-17-2024 Natriuretic peptide B (Bld) [Mass/Vol] 199.6 pg/mL High 0-100 [facility] Comment on above: Performed By: #### L 503.6620, L300.8000, L500.4050, L100.0100 ####[facility] [address] [place], [address] Bedside Glucoseon 05-17-2024 FINGERSTICK GLU 104 mg/dL Normal 74-106 [facility] Comment on above: Result Comment: JOYCE NARAYAN OF PATIENT CARE PER NURSING PROTOCOL Performed By: #### L 501.080 ####[facility] [address] [place], [address] Bilirubin, totalOrdered By: Brian Sanchez on 05-17-2024 Bilirubin [Mass/Vol] 0.90 mg/dL 0.20-1.00 [facility] Comment on above: For patients on eltr ombopag therapy, use of Dimension [place] TBIL is not recommended. Bilirubin, total 0.90 mg/dL 0.20-1.00 [facility] CTA Chest W/WO Contraston CTA Chest W/WO Contrast Normal [facility] Chest 1 View (Portable)on Chest 1 View (Portable) Normal [facility] Comprehensive Metabolic Prof ilon 05-17-2024 Albumin [Mass/Vol] 2.9 g/dL Low 3.2-5.0 [facility] Comment on above: Performed By: #### L 503.6620, L300.8000, L500.4050, L100.0100 ####[facility] [address] [place], [address] Albumin/Globulin [Mass ratio] 0.8 {ratio} Low 0.9-2.4 [facility] Comment on above: Performed By: #### L 503.6620, L300.8000, L500.4050, L100.0100 ####[facility] [address] [place], [address] ALK P 123 U/L High 45-117 [facility] Comment on above: Performed By: #### L 503.6620, L300.8000, L500.4050, L100.0100 ####[facility] [address] [place], [address] ALT [Catalytic activity/Vol] 22 U/L Normal 16-61 [facility] Comment on above: Performed By: #### L 503.6620, L300.8000, L500.4050, L100.0100 ####[facility] [address] [place], [address] AST [Catalytic activity/Vol] 10 U/L Low 15-37 [facility] Comment on above: Performed By: #### L 503.6620, L300.8000, L500.4050, L100.0100 ####[facility] [address] [place], [address] Bilirubin [Mass/Vol] 0.90 mg/dL Normal 0.20-1.00 [facility] Comment on above: Result Comment: For patients on eltrombopag therapy, use of Dimension [place] TBIL is not recommended. Performed By: #### L 503.6620, L300.8000, L500.4050, L100.0100 ####[facility] [address] [place], [address] BUN/CRE 18.9 RATIO Normal 10-20 [facility] Comment on above: Performed By: #### L 503.6620, L300.8000, L500.4050, L100.0100 ####[facility] [address] [place], [address] CA,Total 8.6 mg/dL Normal 8.5-10.1 [facility] Comment on above: Performed By: #### L 503.6620, L300.8000, L500.4050, L100.0100 ####[facility] [address] [place], [address] Chloride [Moles/Vol] 109 mmol/L High 98-107 [facility] Comment on above: Performed By: #### L 503.6620, L300.8000, L500.4050, L100.0100 ####[facility] [address] [place], [address] CO2 [Moles/Vol] 27.0 mmol/L Normal 21.0-32.0 [facility] Comment on above: Performed By: #### L 503.6620, L300.8000, L500.4050, L100.0100 ####[facility] [address] [place], [address] Creatinine [Mass/Vol] 0.80 mg/dL Normal 0.70-1.30 [facility] Comment on above: Result Comment: The validity of the calculated GFR GFRAA in patients over70 years has not been determined. Clinical correlation isessential. Performed By: #### L 503.6620, L300.8000, L500.4050, L100.0100 ####[facility] [address] [place], [address] EST GFR - AA 123 mL/min Normal >60 [facility] Comment on above: Result Comment: Afri can [place] GFR Calc Performed By: #### L 503.6620, L300.8000, L500.4050, L100.0100 ####[facility] [address] [place], [address] GAP 4 Low 5-15 [facility] Comment on above: Performed By: #### L 503.6620, L300.8000, L500.4050, L100.0100 ####[facility] [address] [place], [address] GFR/1.73 sq M.predicted among non-blacks MDRD (S/P/Bld) [Vol rate/Area] 102 mL/min/{1.73_m2} Normal >60 [facility] Comment on above: Result Comment: Non- GFR Calc Performed By: #### L 503.6620, L300.8000, L500.4050, L100.0100 ####[facility] [address] [place], [address] Globulin (S) [Mass/Vol] 3.5 g/dL Normal 2.2-4.2 [facility] Comment on above: Performed By: #### L 503.6620, L300.8000, L500.4050, L100.0100 ####[facility] [address] [place], [address] Glucose [Mass/Vol] 80 mg/dL Normal 74-106 [facility] Comment on above: Performed By: #### L 503.6620, L300.8000, L500.4050, L100.0100 ####[facility] [address] [place], [address] Potassium [Moles/Vol] 3.7 mmol/L Normal 3.5-5.1 [facility] Comment on above: Performed By: #### L 503.6620, L300.8000, L500.4050, L100.0100 ####[facility] [address] [place], [address] Sodium [Moles/Vol] 140 mmol/L Normal 136-145 [facility] Comment on above: Performed By: #### L 503.6620, L300.8000, L500.4050, L100.0100 ####[facility] [address] [place], [address] T PROT 6.4 g/dL Normal 6.4-8.2 [facility] Comment on above: Performed By: #### L 503.6620, L300.8000, L500.4050, L100.0100 ####[facility] [address] [place], [address] Urea nitrogen [Mass/Vol] 15 mg/dL Normal 7-18 [facility] Comment on above: Performed By: #### L 503.6620, L300.8000, L500.4050, L100.0100 ####[facility] [address] [place], [address] D-Dimer Quantitative (DVT/PE )on 05-17-2024 D-DIMER QUANT 1.08 FEU/ug/m Invalid Interpretation Code 0.27-0.49 [facility] Comment on above: Order Comment: CRITI DALTON VALUE CALLED TO ALFREDA SIDDIQUI05/17/24 Diomedes Barahona.RESULTS READ BACK BY SAME. Result Comment: D-Di constantin ELEVATED (>0.49): Additional studies and clinicalassessments are indicated to conclude diagnosis of:Deep Vein Thrombosis (DVT) or Pulmonary Embolism (PE) Performed By: #### L 503.6620, L300.8000, L500.4050, L100.0100 ####[facility] [address] [place], [place], [address] D-dimer measurement for deep venous thrombosisOrdered By: Brian Sanchez on 05-17-2024 D-Dimer Quantitative (PE/DVT) 1.08 FEU/ug/m High 0.27-0.49 [facility] Comment on above: D-Dimer ELEVATED (>0 .49): Additional studies and clinicalassessments are indicated to conclude diagnosis of:Deep Vein Thrombosis (DVT) or Pulmonary Embolism (PE) D-dimer measurement for deep venous thrombosis 1.08 FEU/ug/m High 0.27-0.49 [facility] Echo Complete W/ Contraston 05-17-2024 Echo Complete W/ Contrast Normal [facility] Emergency Department Summary on 05-17-2024 Emergency Department Summary Normal [facility] Erythrocyte morphology asses smentOrdered By: Brian Sanchez on 05-17-2024 RBC morphology finding Nom (Bld) NORM C+C NORMAL NORM C&C [facility] H AND P Exam - Hospitaliston 05-17-2024 H&P Exam - Hospitalist Normal [facility] Influenza virus A and B and SARS-CoV-2 (COVID-19) and Respiratory syncytial virus RNAOrdered By: Brian Sanchez on 05-17-2024 SARS-CoV-2 (COVID-19) RNA ARYAN+probe Ql (Unsp spec) [facility] Laboratory - Chemistry and C hemistry - challengeOrdered By: Brian Sanchez on 05-17-2024 AST [Catalytic activity/Vol] 10 U/L Low [facility] M100.678on 05-17-2024 M100.678 Pending SARS-CoV-2 (COVID 19) Negative INFLUENZA A Negative INFLUENZA B Negative RSV PCR Negative Normal [facility] Comment on above: Performed By: #### M 100.678 ####[facility] [address] [place], [place], [address] Magnesiumon 05-17-2024 Magnesium [Mass/Vol] 2.0 mg/dL Normal 1.6-2.6 [facility] Comment on above: Order Comment: Comme nts: Add on lab Performed By: #### L 501.5200 ####[facility] [address] [place], [address] No Panel InformationOrdered By: Brian Sanchez on 05-17-2024 10 U/L Low [address] [place] [address] Pathologist review Shalom (Unsp spec) [Interp]Ordered By: Brian Sanchez on 05-17-2024 Differential Pathologist's Review Reviewed [facility] Comment on above: Previous reported re sult: Sammie zayas Edited by: SUNDAY on 05/18/24:1428Neutrophilic leukocytosis.Microcytic anemia.Clinical correlation necessary.John Ludwig M.D. 05/18/24 AMENDED REPORT 05/18/24 1428 PATH REV previously reported as: Sammie zayas Review by pathologist Reviewed [facility] Platelet estimateOrdered By: Brian Sanchez on 05-17-2024 Platelets LM Ql (Bld) ADEQUATE ADEQ [facility] Platelets LM Ql (Bld)Ordered By: Brian Sanchez on 05-17-2024 Platelet Estimate ADEQUATE ADEQ [facility] Platelet estimate ADEQUATE ADEQ [facility] RBC morphology finding Nom ( Bld)Ordered By: Brian Sanchez on 05-17-2024 Red Blood Cell Morphology NORM C+C NORMAL NORM C&C [facility] Erythrocyte morphology assessment NORM C+C NORMAL NORM C&C [facility] Review by pathologistOrdered By: Brian Sanchez on 05-17-2024 Pathologist review Shalom (Unsp spec) [Interp] Reviewed [facility] Serum globulin measurementOr dered By: Brian Sanchez on 05-17-2024 Globulin (S) [Mass/Vol] 3.5 g/dL 2.2-4.2 [facility] Serum globulin measurement 3.5 g/dL 2.2-4.2 [facility] Serum or plasma alanine blank otransferase (ALT) measurementOrdered By: Brian Sanchez on 05-17-2024 ALT [Catalytic activity/Vol] 22 U/L 16-61 [facility] Serum or plasma albumin yvonne urement (mass/volume)Ordered By: Brian Sanchez on 05-17-2024 Albumin [Mass/Vol] 2.9 g/dL Low 3.2-5.0 [facility] Serum or plasma alkaline page sphatase measurementOrdered By: Brian Sanchez on 05-17-2024 ALP [Catalytic activity/Vol] 123 U/L High 45-117 [facility] Total proteinOrdered By: Madhu Sanchez on 05-17-2024 Protein [Mass/Vol] 6.4 g/dL 6.4-8.2 [facility] Total protein 6.4 g/dL 6.4-8.2 [facility] B2 Microglob SerPl-mCncon Shkc-6-Vrneryxutkjje [Mass/Vol] 2.4 ug/mL Normal <3.1 [facility] Comment on above: Order Comment: Speci men Type: BLOOD SPECIMENOrdering Facility: [facility] Address: [address] [place] [address] Result Comment: Beta -2 Microglobulin test is performed using the [employer] immunoturbidimetric method. Results obtained with different methods or kits cannot be used interchangeably. Performed By: #### 2 885-2, 19505-26 ####[facility] LABCLIA [id number] [facility] [id number] [place] [address] [place] CBC W Auto Differential pane l (Bld)on 05-09-2024 Basophils (Bld) [#/Vol] 0.06 10*3/uL Normal <0.11 [facility] Comment on above: Order Comment: Speci men Type: BLOOD SPECIMENOrdering Facility: [facility] Address: [address] [place] [address] Performed By: #### 5 7021-8 ####[facility] [id number] [place] [address] [place] Basophils/100 WBC (Bld) 0.5 % Normal [facility] Comment on above: Order Comment: Speci men Type: BLOOD SPECIMENOrdering Facility: [facility] Address: [address] [place] [address] Performed By: #### 5 7021-8 ####[facility] [id number] [place] [address] [place] Differential cell count method Nom (Bld) Auto Normal [facility] Comment on above: Order Comment: Speci men Type: BLOOD SPECIMENOrdering Facility: [facility] Address: [address] [place] [address] Performed By: #### 5 7021-8 ####[facility] [id number] [place] [address] [place] Eosinophils (Bld) [#/Vol] 0.18 10*3/uL Normal <0.46 [facility] Comment on above: Order Comment: Speci men Type: BLOOD SPECIMENOrdering Facility: [facility] Address: [address] [place] [address] Performed By: #### 5 7021-8 ####[facility] MILLVIRGINIAWNCLIA [id number] [place] [address] [place] Eosinophils/100 WBC (Bld) 1.4 % Normal [facility] Comment on above: Order Comment: Speci men Type: BLOOD SPECIMENOrdering Facility: [facility] Address: [address] [place] [address] Performed By: #### 5 7021-8 ####[facility] YANDELWNCLIA [id number] [place] [address] [place] Erythrocyte distribution width (RBC) [Ratio] 16.9 % High 11.5-15.0 [facility] Comment on above: Order Comment: Speci men Type: BLOOD SPECIMENOrdering Facility: [facility] Address: [address] [place] [address] Performed By: #### 5 7021-8 ####[facility]IALNCLIA [id number] [place] [address] [place] Hematocrit (Bld) [Volume fraction] 43.1 % Normal 39.0-51.0 [facility] Comment on above: Order Comment: Speci men Type: BLOOD SPECIMENOrdering Facility: [facility] Address: [address] [place] [address] Performed By: #### 5 7021-8 ####[facility] YANDELWNCLIA [id number] [place] [address] [place] Hemoglobin (Bld) [Mass/Vol] 13.0 g/dL Normal 13.0-17.0 [facility] Comment on above: Order Comment: Speci men Type: BLOOD SPECIMENOrdering Facility: [facility] Address: [address] [place] [address] Performed By: #### 5 7021-8 ####[facility]IALRONAKLIA [id number] [place] [address] [place] Immature granulocytes (Bld) [#/Vol] 0.03 10*3/uL Normal <0.10 [facility] Comment on above: Order Comment: Speci men Type: BLOOD SPECIMENOrdering Facility: [facility] Address: [address] [place] [address] Performed By: #### 5 7021-8 ####[facility] [id number] [place] [address] [place] Immature granulocytes/100 WBC (Bld) 0.2 % Normal [facility] Comment on above: Order Comment: Speci men Type: BLOOD SPECIMENOrdering Facility: [facility] Address: [address] [place] [address] Performed By: #### 5 7021-8 ####[facility] [id number] [place] [address] [place] Lymphocytes (Bld) [#/Vol] 1.36 10*3/uL Normal 1.00-4.0 0 [facility] Comment on above: Order Comment: Speci men Type: BLOOD SPECIMENOrdering Facility: [facility] Address: [address] [place] [address] Performed By: #### 5 7021-8 ####[facility] [id number] [place] [address] [place] Lymphocytes/100 WBC (Bld) 10.8 % Normal [facility] Comment on above: Order Comment: Speci men Type: BLOOD SPECIMENOrdering Facility: [facility] Address: [address] [place] [address] Performed By: #### 5 7021-8 ####[facility] HOSPITALLI [id number] [place] [address] [place] MCH (RBC) [Entitic mass] 24.1 pg Low 26.0-34.0 [facility] Comment on above: Order Comment: Speci men Type: BLOOD SPECIMENOrdering Facility: [facility] Address: [address] [place] [address] Performed By: #### 5 7021-8 ####[facility] [id number] [place] [address] [place] MCHC (RBC) [Mass/Vol] 30.2 g/dL Low 30.5-36.0 [facility] Comment on above: Order Comment: Speci men Type: BLOOD SPECIMENOrdering Facility: [facility] Address: [address] [place] [address] Performed By: #### 5 7021-8 ####[facility] [id number] [place] [address] [place] MCV (RBC) [Entitic vol] 80.0 fL Normal 80.0-100.0 [facility] Comment on above: Order Comment: Speci men Type: BLOOD SPECIMENOrdering Facility: [facility] Address: [address] [place] [address] Performed By: #### 5 7021-8 ####[facility] [id number] [place] [address] [place] Monocytes (Bld) [#/Vol] 1.07 10*3/uL High <0.87 [facility] Comment on above: Order Comment: Speci men Type: BLOOD SPECIMENOrdering Facility: [facility] Address: [address] [place] [address] Performed By: #### 5 7021-8 ####[facility] [id number] [place] [address] [place] Monocytes/100 WBC (Bld) 8.5 % Normal [facility] Comment on above: Order Comment: Speci men Type: BLOOD SPECIMENOrdering Facility: [facility] Address: [address] [place] [address] Performed By: #### 5 7021-8 ####[facility] MILLTOWNCLIA [id number] [place] [address] [place] Neutrophils (Bld) [#/Vol] 9.90 10*3/uL High 1.45-7.5 0 [facility] Comment on above: Order Comment: Speci men Type: BLOOD SPECIMENOrdering Facility: [facility] Address: [address] [place] [address] Performed By: #### 5 7021-8 ####[facility] MILLWNCLIA [id number] [place] [address] [place] Neutrophils/100 WBC (Bld) 78.6 % Normal [facility] Comment on above: Order Comment: Speci men Type: BLOOD SPECIMENOrdering Facility: [facility] Address: [address] [place] [address] Performed By: #### 5 7021-8 ####[facility]IALNCLIA [id number] [place] [address] [place] Nucleated RBC (Bld) [#/Vol] 10*3/uL Normal <0.01 [facility] Comment on above: Order Comment: Speci men Type: BLOOD SPECIMENOrdering Facility: [facility] Address: [address] [place] [address] Performed By: #### 5 7021-8 ####[facility] MILLTOWNCLIA [id number] [place] [address] [place] Nucleated RBC/100 WBC (Bld) [Ratio] 0.0 /100 WBC Normal [facility] Comment on above: Order Comment: Speci men Type: BLOOD SPECIMENOrdering Facility: [facility] Address: [address] [place] [address] Performed By: #### 5 7021-8 ####[facility] MILLEATONNCLIA [id number] [place] [address] [place] Platelet mean volume (Bld) [Entitic vol] 9.5 fL Normal 9.0-12.7 [facility] Comment on above: Order Comment: Speci men Type: BLOOD SPECIMENOrdering Facility: [facility] Address: [address] [place] [address] Performed By: #### 5 7021-8 ####[facility]ITALA [id number] [place] [address] [place] Platelets (Bld) [#/Vol] 368 10*3/uL Normal 150-400 [facility] Comment on above: Order Comment: Speci men Type: BLOOD SPECIMENOrdering Facility: [facility] Address: [address] [place] [address] Performed By: #### 5 7021-8 ####[facility] [id number] [place] [address] [place] RBC (Bld) [#/Vol] 5.39 10*6/uL Normal 4.20-6.00 [facility] Comment on above: Order Comment: Speci men Type: BLOOD SPECIMENOrdering Facility: [facility] Address: [address] [place] [address] Performed By: #### 5 7021-8 ####[facility] HOSPITALLIA [id number] [place] [address] [place] WBC (Bld) [#/Vol] 12.60 10*3/uL High 3.70-11.00 [facility] Comment on above: Order Comment: Speci men Type: BLOOD SPECIMENOrdering Facility: [facility] Address: [address] [place] [address] Performed By: #### 5 7021-8 ####[facility]IALNCLIA [id number] [place] [address] [place] CNOVSPon 05-09-2024 CNOVSP Normal [facility] Comprehensive metabolic 2000 panelon 05-09-2024 Albumin [Mass/Vol] 4.2 g/dL Normal 3.9-4.9 [facility] Comment on above: Order Comment: Speci men Type: BLOOD SPECIMENOrdering Facility: [facility] Address: [address] [place] [address] Performed By: #### 2 4323-8, 2531-0 ####[facility] MILLWNCLIA [id number] [place] [address] [place] ALP [Catalytic activity/Vol] 122 U/L High 38-113 [facility] Comment on above: Order Comment: Speci men Type: BLOOD SPECIMENOrdering Facility: [facility] Address: [address] [place] [address] Performed By: #### 2 432-8, 2531-0 ####[facility]IALRONAKLIA [id number] [place] [address] [place] ALT [Catalytic activity/Vol] 13 U/L Normal 10-54 [facility] Comment on above: Order Comment: Speci men Type: BLOOD SPECIMENOrdering Facility: [facility] Address: [address] [place] [address] Performed By: #### 2 4323-8, 2531-0 ####[facility]A BEACHWRONAKLIA [id number] [place] [address] [place] Anion gap [Moles/Vol] 8 mmol/L Normal 8-15 [facility] Comment on above: Order Comment: Speci men Type: BLOOD SPECIMENOrdering Facility: [facility] Address: [address] [place] [address] Performed By: #### 2 4323-8, 2532-0 ####[facility] MEMORIALNCLIA [id number] [place] [address] [place] AST [Catalytic activity/Vol] 14 U/L Normal 14-40 [facility] Comment on above: Order Comment: Speci men Type: BLOOD SPECIMENOrdering Facility: [facility] Address: [address] [place] [address] Performed By: #### 2 4323-8, 2531-0 ####[facility] BEACHWNCLIA [id number] [place] [address] [place] Bilirubin [Mass/Vol] 0.7 mg/dL Normal 0.2-1.3 [facility] Comment on above: Order Comment: Speci men Type: BLOOD SPECIMENOrdering Facility: [facility] Address: [address] [place] [address] Performed By: #### 2 4323-8, 2531-0 ####[facility] [id number] [place] [address] [place] Calcium [Mass/Vol] 9.4 mg/dL Normal 8.5-10.2 [facility] Comment on above: Order Comment: Speci men Type: BLOOD SPECIMENOrdering Facility: [facility] Address: [address] [place] [address] Performed By: #### 2 4323-8, 0 ####[facility] HOSPITALSUMIA [id number] [place] [address] [place] Chloride [Moles/Vol] 104 mmol/L Normal 98-107 [facility] Comment on above: Order Comment: Speci men Type: BLOOD SPECIMENOrdering Facility: [facility] Address: [address] [place] [address] Performed By: #### 2 4323-8, 2531-0 ####[facility] MEMORIALNCLIA [id number] [place] [address] [place] CO2 [Moles/Vol] 26 mmol/L Normal 22-30 [facility] Comment on above: Order Comment: Speci men Type: BLOOD SPECIMENOrdering Facility: [facility] Address: [address] [place], [place] [address] Performed By: #### 2 4323-8, ####[facility] YANDELEATONNCSUMIA [id number] [place] [address] [place] Creatinine [Mass/Vol] 0.76 mg/dL Normal 0.73-1.22 [facility] Comment on above: Order Comment: Speci men Type: BLOOD SPECIMENOrdering Facility: [facility] Address: [address] [place] [address] Performed By: #### 2 43238, ####[facility] MEMORIALNCLIA [id number] [place] [address] [place] Creatinine and Glomerular filtration rate.predicted panel (S/P/Bld) 95 mL/min/1.73m??? Normal >=60 [facility] Comment on above: Order Comment: Speci men Type: BLOOD SPECIMENOrdering Facility: [facility] Address: [address] [place] [address] Result Comment: Kimberley mated Glomerular Filtration Rate (eGFR) is calculated using the 2020 CKD-EPI creatinine equation. This equation utilizes serum creatinine, sex, and age as parameters. The creatinine assay has traceable calibration to isotope dilution-mass spectrometry. Refer to KDIGO guidelines for clinical interpretation. In patients with unstable renal function, e.g. those with acute kidney injury, the eGFR may not accurately reflect actual GFR. Performed By: #### 2 4323-8, 0 ####[facility]PITALA [id number] [place] [address] [place] Glucose [Mass/Vol] 142 mg/dL High 74-99 [facility] Comment on above: Order Comment: Speci men Type: BLOOD SPECIMENOrdering Facility: [facility] Address: [address] [place] [address] Result Comment: The [place] Diabetes Association (ADA) provides guidance for cutoff values for fasting glucose and random glucose. The ADA defines fasting as no caloric intake for at least 8 hours. Fasting plasma glucose results between 100 to 125 mg/dL indicate increased risk for diabetes (prediabetes).Fasting plasma glucose results greater than or equal to 126 mg/dL meet the criteria for diagnosis of diabetes. In the absence of unequivocal hyperglycemia, results should be confirmed by repeat testing. In a patient with classic symptoms of hyperglycemia or hyperglycemic crisis, random plasma glucose results greater than or equal to 200 mg/dL meet the criteria for diagnosis of diabetes.Reference: Standards of Medical Care in Diabetes 2016, [place] [employer] Association. Diabetes Care. 2016.39(Suppl 1). Performed By: #### 2 4323-8, 2531-0 ####[facility] BEACHSTEWART [id number] [place] [address] [place] Potassium [Moles/Vol] 4.1 mmol/L Normal 3.7-5.1 [facility] Comment on above: Order Comment: Speci men Type: BLOOD SPECIMENOrdering Facility: [facility] Address: [address] [place] [address] Performed By: #### 2 4323-8, 0 ####[facility] MEM[facility]IALRONAKMarcio [id number] [place] [address] [place] Protein [Mass/Vol] 6.6 g/dL Normal 6.3-8.0 [facility] Comment on above: Order Comment: Speci men Type: BLOOD SPECIMENOrdering Facility: [facility] Address: [address] [id number] Performed By: #### 2 4323-8, 2531-0 ####[facility] MEMORIALELSI [id number] [place] [address] [place] Sodium [Moles/Vol] 138 mmol/L Normal 136-144 [facility] Comment on above: Order Comment: Speci men Type: BLOOD SPECIMENOrdering Facility: [facility] Address: [address] [place] [address] Performed By: #### 2 4323-8, 2532-0 ####[facility] MEMORIALNCLIA [id number] [place] [address] [place] Urea nitrogen [Mass/Vol] 20 mg/dL Normal 9-24 [facility] Comment on above: Order Comment: Speci men Type: BLOOD SPECIMENOrdering Facility: [facility] Address: [address] [place] [address] Performed By: #### 2 4323-8, 2532-0 ####[facility]IALNCLIA [id number] [place] [address] [place] HBV core Ab Ser Qlon 025 HBV core Ab Ql (S) Negative Normal Negative [facility] Comment on above: Order Comment: Speci men Type: BLOOD SPECIMENOrdering Facility: [facility] Address: [address] [place] [address] Result Comment: No e vidence of current or past infection with Hepatitis B virus. Should recent infection be suspected, repeat testing may be considered 3-4 weeks after this draw. Performed By: #### 2 2322-2, 5195-3, 48084-8 ####[facility] LABCLIA [id number] [place] [address] [place] HBV surface Ab Ql (S)on 04-25 HBV surface Ab Qn (S) <8.00 Normal [facility] Comment on above: Order Comment: Speci men Type: BLOOD SPECIMENOrdering Facility: [facility] Address: [address] [place] [address] Result Comment: <8 m IU/mL: No serological evidence of immunity to Hepatitis B Virus.>/= 8 to <12 mIU/mL: No serological evidence of immunity to Hepatitis B Virus.>/= 12 mIU/mL: Consistent with serological evidence of immunity to Hepatitis B Virus. Performed By: #### 2 2322-2, 5195-3, 17514-6 ####[facility] LABCLIA [id number] [place] [address] [place] HBV surface Ab Ser Qlon 04-25 HBV surface Ab Ql (S) Negative Normal [facility] Comment on above: Order Comment: Speci men Type: BLOOD SPECIMENOrdering Facility: [facility] Address: [address] [place] [address] Result Comment: No s erological evidence of immunity to Hepatitis B Virus. Performed By: #### 2 2322-2, 5195-3, 73561-8 ####[facility] LABIA [id number] [place] [address] [place] HBV surface Ag Ser Qlon 04-25 HBV surface Ag Ql (S) Negative Normal Negative [facility] Comment on above: Order Comment: Speci men Type: BLOOD SPECIMENOrdering Facility: [facility] Address: [address] [place] [address] Performed By: #### 2 2322-2, 5195-3, 23729-6 ####[facility] LABIA [id number] [place] [address] [place] HCV Ab Ser Qlon 05-09-2024 HCV Ab Ql (S) Negative Normal Negative [facility] Comment on above: Order Comment: Speci men Type: BLOOD SPECIMENOrdering Facility: [facility] Address: [address] [place] [address] Result Comment: The result suggests no evidence of active infection with Hepatitis C virus. Should recent infection be suspected, repeat testing may be considered 4-6 weeks after this draw. Performed By: #### 1 6128-1 ####[facility] LABVERM[facility] [id number] [address] [place] IMMUNOFIXATION SCREEN, SERUM on 05-09-2024 MPA RESULT No M protein is identified. Normal No M protein is identified. [facility] Comment on above: Order Comment: Speci men Type: BLOOD SPECIMENOrdering Facility: [facility] Address: [address] [place] [address] Performed By: #### I FES ####[facility] LABCLIA [id number] [place] [address] [place] STAFF REVIEW (MPA) Reviewed by Dr. Esme Rocha MD Normal [facility] Comment on above: Order Comment: Speci men Type: BLOOD SPECIMENOrdering Facility: [facility] Address: [address] [place] [address] Performed By: #### I [facility] ####[facility] LABCLIA [id number] [place] [address] [place] IMMUNOGLOBULINS,IGG,IGA,IGMo n 05-09-2024 IgA [Mass/Vol] 57 mg/dL Low 70-400 [facility] Comment on above: Order Comment: Speci men Type: BLOOD SPECIMENOrdering Facility: [facility] Address: [address] [place] [address] Performed By: #### S ERIMM ####[facility] LABCLIA [id number] [place] [address] [place] IgG [Mass/Vol] 480 mg/dL Low 700-1600 [facility] Comment on above: Order Comment: Speci men Type: BLOOD SPECIMENOrdering Facility: [facility] Address: [address] [place] [address] Performed By: #### S ERIMM ####[facility] LABCLIA [id number] [place] [address] [place] IgM [Mass/Vol] 22 mg/dL Low 40-230 [facility] Comment on above: Order Comment: Speci men Type: BLOOD SPECIMENOrdering Facility: [facility] Address: [address] [place] [address] Performed By: #### S ERIMM ####[facility] LABCLIA [id number] [place] [address] [place] KAPPA/RAMIREZ,FREE,SERon 2024 Immunoglobulin light chains.kappa.free (S) [Mass/Vol] 4.6 mg/L Normal 3.3-19.4 [facility] Comment on above: Order Comment: Speci men Type: BLOOD SPECIMENOrdering Facility: [facility] Address: [address] [place] [address] Result Comment: Rare ly, increased serum free light chains levels may not be detected or accurately quantified due to prozone phenomenon or in high viscosity samples using this immunoturbidimetric assay. Correlation with other laboratory results and clinical findings is recommended.The [place] Free Light Chain was performed using the Binding Site Optilite immunoturbidimetric method. Result obtained with different assay methods or kits cannot be used interchangeably. Performed By: #### K LFRS ####[facility] LABCLIA [id number] [place] [address] [place] Immunoglobulin light chains.kappa/Immunoglobuli n light chains.lambda (S) [Mass ratio] 0.72 Normal 0.26-1.65 [facility] Comment on above: Order Comment: Speci [facility] Type: BLOOD SPECIMENOrdering Facility: [facility] Address: [address] [place] [address] Performed By: #### K LFRS ####[facility] LABCLIA [id number] [place] [address] [place] Immunoglobulin light chains.lambda.free [Mass/Vol] 6.4 mg/L Normal 5.7-26.3 [facility] Comment on above: Order Comment: Speci men Type: BLOOD SPECIMENOrdering Facility: [facility] Address: [address] [place] [address] Result Comment: Rare ly, increased serum free light chains levels may not be detected or accurately quantified due to prozone phenomenon or in high viscosity samples using this immunoturbidimetric assay. Correlation with other laboratory results and clinical findings is recommended.The L[place] Free Light Chain was performed using the Binding Site Optilite immunoturbidimetric method. Result obtained with different assay methods or kits cannot be used interchangeably. Performed By: #### K LFRS ####[facility] LABCLIA [id number] [place] [id number] [place] LDH SerPl-cCncon 05-09-2024 LDH [Catalytic activity/Vol] 231 U/L High 135-225 [facility] Comment on above: Order Comment: Speci men Type: BLOOD SPECIMENOrdering Facility: [facility] Address: [address] [place] [address] Performed By: #### 2 4323-8, 2532-0 ####[facility] [id number] [place] [address] [place] MONOCLONAL PROT UR W/INTERPo n 05-09-2024 STAFF REVIEW (UMPA) Reviewed by Dr. Esme Rocha MD [facility] Comment on above: Order Comment: Speci men Type: URINE SPECIMENOrdering Facility: [facility] Address: [address] [place] [address] Performed By: #### U RMPA ####[facility] LABCLIA [id number] [place] [address] [place] UMPA RESULT No M protein is identified. Normal No M protein is identified. [facility] Comment on above: Order Comment: Speci men Type: URINE SPECIMENOrdering Facility: [facility] Address: [address] [place] [address] Performed By: #### U RMPA ####[facility] LABCLIA [id number] [place] [id number] [place] [facility] PROTEIN ELECTROPHORESIS SERU M (P)on 05-09-2024 Albumin [Mass/Vol] 4.08 g/dL Normal 3.43-5.41 [facility] Comment on above: Order Comment: Speci men Type: BLOOD SPECIMENOrdering Facility: [facility] Address: [address] [place] [address] Performed By: #### L [id number] ####[facility] LABCLIA [id number] [place] [address] [place] Alpha 1 globulin Elph [Mass/Vol] 0.38 g/dL Normal 0.18-0.43 [facility] Comment on above: Order Comment: Speci men Type: BLOOD SPECIMENOrdering Facility: [facility] Address: [address] [place] [address] Performed By: #### L [id number] ####[facility] LABCLIA [id number] [place] [address] [place] Alpha 2 globulin Elph [Mass/Vol] 0.93 g/dL Normal 0.42-0.98 [facility] Comment on above: Order Comment: Speci men Type: BLOOD SPECIMENOrdering Facility: [facility] Address: [address] [place] [address] Performed By: #### L [id number] ####[facility] LABCLIA [id number] [place] [address] [place] Beta globulin Elph [Mass/Vol] 0.79 g/dL Normal 0.61-1.17 [facility] Comment on above: Order Comment: Speci men Type: BLOOD SPECIMENOrdering Facility: [facility] Address: [address] [place] [address] Performed By: #### L [id number] ####[facility] LABCLIA [id number] [place] [address] [place] Gamma globulin Elph [Mass/Vol] 0.42 g/dL Low 0.53-1.51 [facility] Comment on above: Order Comment: Speci men Type: BLOOD SPECIMENOrdering Facility: [facility] Address: [address] [place] [address] Performed By: #### L [id number] ####[facility] LABCLIA [id number] [place] [address] [place] INTERPRETATION COMMENT FOR PROTEIN ELECTROPHORESIS Hypogammaglobulinemia is present, which can be seen in the setting of monoclonal gammopathy. If clinically indicated, monoclonal protein analysis and serum free light chain analysis are suggested to evaluate further for monoclonal gammopathy. Normal [facility] Comment on above: Order Comment: Speci men Type: BLOOD SPECIMENOrdering Facility: [facility] Address: [address] [place] [address] Performed By: #### L [id number] ####[facility] LABCLIA [id number] [place] [address] [place] M-PROTEIN LOCATION Normal [facility] Comment on above: Order Comment: Speci men Type: BLOOD SPECIMENOrdering Facility: [facility] Address: [address] [place] [address] Result Comment: Not Applicable. Performed By: #### L [id number] ####[facility] LABCLIA [id number] [place] [address] [place] Protein Fractions [Interp] No definitive M protein is identified on protein electrophoresis. Normal No definitive M protein is identified on protein electrophor esis. [facility] Comment on above: Order Comment: Speci men Type: BLOOD SPECIMENOrdering Facility: [facility] Address: [address] [place] [address] Performed By: #### L [id number] ####[facility] LABCLIA [id number] [place] [address] [place] Protein.monoclonal Elph [Mass/Vol] 0.00 g/dL Normal <=0.00 [facility] Comment on above: Order Comment: Speci men Type: BLOOD SPECIMENOrdering Facility: [facility] Address: [address] [place] [address] Performed By: #### L [id number] ####[facility] LABCLIA [id number] [place] [id number] [place] SPE STAFF REVIEW Reviewed by Dr. Esme Rocha MD Normal [facility] Comment on above: Order Comment: Speci men Type: BLOOD SPECIMENOrdering Facility: [facility] Address: [address] [place] [address] Performed By: #### L [id number] ####[facility] [id number] [place] [address] [place] Prot SerPl-mCncon 05-09-2024 Protein [Mass/Vol] 6.3 g/dL Normal 6.3-8.0 [facility] Comment on above: Order Comment: Speci men Type: BLOOD SPECIMENOrdering Facility: [facility] Address: [address] [place] [address] Performed By: #### 2 885-2, 19505-26 ####[facility] [id number] [place] [address] [place] Prot Ur-mCncon 05-09-2024 Protein (U) [Mass/Vol] 35 mg/dL High 0-20 [facility] Comment on above: Order Comment: Speci men Type: URINE SPECIMENOrdering Facility: [facility] Address: [address] [place] [address] Performed By: #### 2 888-6 ####[facility] [id number] [place] [address] [place] URINE PROTEIN ELECTROPHORESI S RANDOM (P)on 05-09-2024 Albumin Elph (U) [Mass fraction] 62.39 % Normal [facility] Comment on above: Order Comment: Speci men Type: URINE SPECIMENOrdering Facility: [facility] Address: [address] [place] [address] Performed By: #### L [id number] ####[facility] [id number] [place] [address] [place] Alpha 1 globulin Elph (U) [Mass fraction] 1.99 % Normal [facility] Comment on above: Order Comment: Speci men Type: URINE SPECIMENOrdering Facility: [facility] Address: [address] [place] [address] Performed By: #### L [id number] ####[facility] LABIA [id number] [place] [address] [place] Alpha 2 globulin Elph (U) [Mass fraction] 14.77 % Normal [facility] Comment on above: Order Comment: Speci men Type: URINE SPECIMENOrdering Facility: [facility] Address: [address] [place] [address] Performed By: #### L [id number] ####[facility] LABIA [id number] [place] [address] [place] Beta globulin Elph (U) [Mass fraction] 15.38 % Normal [facility] Comment on above: Order Comment: Speci men Type: URINE SPECIMENOrdering Facility: [facility] Address: [address] [place] [address] Performed By: #### L [id number] ####[facility] [id number] [address] [place] [facility] Gamma globulin Elph (U) [Mass fraction] 5.47 % Normal [facility] Comment on above: Order Comment: Speci men Type: URINE SPECIMENOrdering Facility: [facility] Address: [address] [place] [address] Performed By: #### L [id number] ####[facility] [id number] [place] [address] [place] Protein Fractions Elph Shalom (U) [Interp] No definitive M protein is identified on protein electrophoresis. Normal No definitive M protein is identified on protein electrophor esis. [facility] Comment on above: Order Comment: Speci men Type: URINE SPECIMENOrdering Facility: [facility] Address: [address] [place] [address] Performed By: #### L [id number] ####[facility] LABIA [id number] [place] [address] [place] STAFF REVIEW (URINE ELECTRO) Reviewed by Dr. Danielle Rocha MD [facility] Comment on above: Order Comment: Speci men Type: URINE SPECIMENOrdering Facility: [facility] Address: [address] [place] [address] Performed By: #### L [id number] ####[facility] LABCLIA [id number] [place] [place] [address] [place] ALP [Catalytic activity/Vol] Ordered By: Jessenia Yoder on 05-01-2024 Serum or plasma alkaline phosphatase measurement 121 U/L High 45-117 [facility] ALT [Catalytic activity/Vol] Ordered By: Jessenia Yoder on 05-01-2024 Serum or plasma alanine aminotransferase (ALT) measurement 20 U/L 16-61 [facility] Albumin [Mass/Vol]Ordered By : Jessenia Yoder on 05-01-2024 Serum or plasma albumin measurement (mass/volume) 3.3 g/dL 3.2-5.0 [facility] Albumin to globulin ratioOrd ered By: Jessenia Yoder on 05-01-2024 Albumin/Globulin [Mass ratio] 1.0 {ratio} 0.9-2.4 [facility] Albumin to globulin ratio 1.0 RATIO 0.9-2.4 [facility] Bilirubin, totalOrdered By: Jessenia Yoder on 05-01-2024 Bilirubin [Mass/Vol] 0.50 mg/dL 0.20-1.00 [facility] Comment on above: For patients on eltr ombopag therapy, use of Dimension [place] TBIL is not recommended. Bilirubin, total 0.50 mg/dL 0.20-1.00 [facility] Blood urea nitrogen (BUN)/cr eatinine ratioOrdered By: Jessenia Yoder on 05-01-2024 Urea nitrogen/Creatinine [Mass ratio] 23.2 mg/mg High 10-20 [facility] Blood urea nitrogen (BUN)/creatinine ratio 23.2 RATIO High 10-20 [facility] Calcium [Mass/Vol]Ordered By : Jessenia Yoder on 05-01-2024 Serum or plasma calcium measurement (mass/volume) 9.3 mg/dL 8.5-10.1 [facility] Carbon dioxide measurementOr dered By: Jessenia Yoder on 05-01-2024 CO2 [Moles/Vol] 31.0 mmol/L 21.0-32.0 [facility] Carbon dioxide measurement 31.0 mmol/L 21.0-32. 0 [facility] Chloride measurementOrdered By: Jessenia Yoder on 05-01-2024 Chloride [Moles/Vol] 108 mmol/L High 98-107 [facility] Chloride measurement 108 mmol/L High 98-107 [facility] Comprehensive Metabolic Prof ilon 05-01-2024 Albumin [Mass/Vol] 3.3 g/dL Normal 3.2-5.0 [facility] Comment on above: Performed By: #### L [id number], L500.4050, L501.9985, L503.0105 ####[facility] [address] [place], [address] Albumin/Globulin [Mass ratio] 1.0 {ratio} Normal 0.9-2.4 [facility] Comment on above: Performed By: #### L [id number], L500.4050, L501.9985, L503.0105 ####[facility] [address] [place], [address] ALK P 121 U/L High 45-117 [facility] Comment on above: Performed By: #### L [id number], L500.4050, L501.9985, L503.0105 ####[facility] [address] [place], [address] ALT [Catalytic activity/Vol] 20 U/L Normal 16-61 [facility] Comment on above: Performed By: #### L [id number], L500.4050, L501.9985, L503.0105 ####[facility] [address] [place], [address] AST [Catalytic activity/Vol] 8 U/L Low 15-37 [facility] Comment on above: Performed By: #### L 501.9520, L500.4050, L501.9985, L503.0105 ####[facility] [address] [place], [address] Bilirubin [Mass/Vol] 0.50 mg/dL Normal 0.20-1.00 [facility] Comment on above: Result Comment: For patients on eltrombopag therapy, use of Dimension [place] TBIL is not recommended. Performed By: #### L 501.9520, L500.4050, L501.9985, L503.0105 ####[facility] [address] [place], [address] BUN/CRE 23.2 RATIO High 10-20 [facility] Comment on above: Performed By: #### L 501.9520, L500.4050, L501.9985, L503.0105 ####[facility] [address] [place], [address] CA,Total 9.3 mg/dL Normal 8.5-10.1 [facility] Comment on above: Performed By: #### L 501.9520, L500.4050, L501.9985, L503.0105 ####[facility] [address] [place], [address] Chloride [Moles/Vol] 108 mmol/L High 98-107 [facility] Comment on above: Performed By: #### L 501.9520, L500.4050, L501.9985, L503.0105 ####[facility] [address] [place], [address] CO2 [Moles/Vol] 31.0 mmol/L Normal 21.0-32.0 [facility] Comment on above: Performed By: #### L 501.9520, L500.4050, L501.9985, L503.0105 ####[facility] [address] [place], [address] Creatinine [Mass/Vol] 0.78 mg/dL Normal 0.70-1.30 [facility] Comment on above: Result Comment: The validity of the calculated GFR GFRAA in patients over70 years has not been determined. Clinical correlation isessential. Performed By: #### L 501.9520, L500.4050, L501.9985, L503.0105 ####[facility] [address] [place], [address] EST GFR - AA 127 mL/min Normal >60 [facility] Comment on above: Result Comment: Afri can [place] GFR Calc Performed By: #### L 501.9520, L500.4050, L501.9985, L503.0105 ####[facility] [address] [place], [address] GAP 3 Low 5-15 [facility] Comment on above: Performed By: #### L 501.9520, L500.4050, L501.9985, L503.0105 ####[facility] [address] [place], [address] GFR/1.73 sq M.predicted among non-blacks MDRD (S/P/Bld) [Vol rate/Area] 105 mL/min/{1.73_m2} Normal >60 [facility] Comment on above: Result Comment: Non- GFR Calc Performed By: #### L 501.9520, L500.4050, L501.9985, L503.0105 ####[facility] [address] [place], [address] Globulin (S) [Mass/Vol] 3.2 g/dL Normal 2.2-4.2 [facility] Comment on above: Performed By: #### L 501.9520, L500.4050, L501.9985, L503.0105 ####[facility] [address] [place], [address] Glucose [Mass/Vol] 78 mg/dL Normal 74-106 [facility] Comment on above: Performed By: #### L 501.9520, L500.4050, L501.9985, L503.0105 ####[facility] [address] [place], [address] Potassium [Moles/Vol] 4.1 mmol/L Normal 3.5-5.1 [facility] Comment on above: Performed By: #### L 501.9520, L500.4050, L501.9985, L503.0105 ####[facility] [address] [place], [address] Sodium [Moles/Vol] 141 mmol/L Normal 136-145 [facility] Comment on above: Performed By: #### L 501.9520, L500.4050, L501.9985, L503.0105 ####[facility] [address] [place], [address] T PROT 6.5 g/dL Normal 6.4-8.2 [facility] Comment on above: Performed By: #### L 501.9520, L500.4050, L501.9985, L503.0105 ####[facility] [address] [place], [address] Urea nitrogen [Mass/Vol] 18 mg/dL Normal 7-18 [facility] Comment on above: Performed By: #### L 501.9520, L500.4050, L501.9985, L503.0105 ####[facility] [address] [place], [address] Creatinine [Mass/Vol]Ordered By: Jessenia Yoder on 05-01-2024 Serum or plasma creatinine measurement (mass/volume) 0.78 mg/dL 0.70-1.30 [facility] Estimated glomerular filtrat ion rate (GFR) AmericanOrdered By: Jessenia Yoder on 05-01-2024 Estimated GFR (MDRD) Amer 127 mL/min >60 [facility] Comment on above: GFR Calc Estimated glomerular filtration rate (GFR) 127 mL/min >60 [facility] Glomerular filtration rate ( GFR) estimationOrdered By: Jessenia Yoder on 05-01-2024 Estimated GFR (MDRD) Non-Af Amer 105 mL/min >60 [facility] Comment on above: Non- GFR Calc Glomerular filtration rate (GFR) estimation 105 mL/min >60 [facility] Glucose measurementOrdered B y: Jessenia Yoder on 05-01-2024 Glucose [Mass/Vol] 78 mg/dL 74-106 [facility] Glucose measurement 78 mg/dL 74-[address] [facility] HbA1c (Bld) [Mass fraction]O rdered By: Jessenia Ydoer on 05-01-2024 Hemoglobin A1c percentage 7.2 % High 3.8-5.6 [facility] Hemoglobin A1con 05-01-2024 HbA1c (Bld) [Mass fraction] 7.2 % High 3.8-5.6 [facility] Comment on above: Result Comment: Norm al < 5.7 % Prediabetic 5.7 - 6.4 % Diabetic >or= 6.5 % Please note range changes. Performed By: #### L 501.9520, L500.4050, L501.9985, L503.0105 ####[facility] [address] [place], [address] Hemoglobin A1c percentageOrd ered By: Jessenia Yoder on 05-01-2024 HbA1c (Bld) [Mass fraction] 7.2 % High 3.8-5.6 [facility] Comment on above: Normal < 5.7 % Predi abetic 5.7 - 6.4 % Diabetic >or= 6.5 % Please note range changes. Laboratory - Chemistry and C hemistry - challengeOrdered By: Jessenia Yoder on 05-01-2024 AST [Catalytic activity/Vol] 8 U/L Low 15-37 [facility] No Panel InformationOrdered By: Jessenia Yoder on 05-01-2024 8 U/L Low -37 [facility] Potassium measurementOrdered By: Jessenia Yoder on 05-01-2024 Potassium [Moles/Vol] 4.1 mmol/L 3.5-5.1 [facility] Potassium measurement 4.1 mmol/L 3.5-5.1 [facility] Serum anion gap measurementO rdered By: Jessenia Yoder on 05-01-2024 Anion gap [Moles/Vol] 3 mmol/L Low 5-15 [facility] Serum anion gap measurement 3 Low 5-15 [facility] Serum globulin measurementOr dered By: Jessenia Yoder on 05-01-2024 Globulin (S) [Mass/Vol] 3.2 g/dL 2.2-4.2 [facility] Serum globulin measurement 3.2 g/dL 2.2-4.2 [facility] Serum or plasma alanine blank otransferase (ALT) measurementOrdered By: Jessenia Yoder on 05-01-2024 ALT [Catalytic activity/Vol] 20 U/L 16-61 [facility] Serum or plasma albumin yvonne urement (mass/volume)Ordered By: Jessenia Yoder on 05-01-2024 Albumin [Mass/Vol] 3.3 g/dL 3.2-5.0 [facility] Serum or plasma alkaline page sphatase measurementOrdered By: Jessenia Yoder on 05-01-2024 ALP [Catalytic activity/Vol] 121 U/L High 45-117 [facility] Serum or plasma calcium yvonne urement (mass/volume)Ordered By: Jessenia Yoder on 05-01-2024 Calcium [Mass/Vol] 9.3 mg/dL 8.5-10.1 [facility] Serum or plasma creatinine m easurement (mass/volume)Ordered By: Jessenia Yoder on 05-01-2024 Creatinine [Mass/Vol] 0.78 mg/dL 0.70-1.30 [facility] Comment on above: The validity of the calculated GFR & GFRAA in patients over 70 years has not been determined. Clinical correlation is essential. Serum or plasma urea nitroge n measurement (mass/volume)Ordered By: Jessenia Yoder on 05-01-2024 Urea nitrogen [Mass/Vol] 18 mg/dL 7-18 [facility] Sodium levelOrdered By: Anh Yoder on 05-01-2024 Sodium [Moles/Vol] 141 mmol/L 136-145 [facility] Sodium level 141 mmol/L 136-145 [facility] TSH QnOrdered By: Jessenia benítez on 05-01-2024 Thyroid Stimulating Hormone (TSH) 1.320 uIU/mL 0.358-3.740 [facility] Serum or plasma thyroid stimulating hormone (TSH) measurement (units/volume) 1.320 uIU/mL 0.358-3.[address] [facility] Thyroid Stim Hormone (TSH)on 05-01-2024 TSH 1.320 uIU/mL Normal 0.358-3.740 [facility] Comment on above: Performed By: #### L 501.9520, L500.4050, L501.9985, L503.0105 ####[facility] [address] [place], [address] Total proteinOrdered By: Carina Yoder on 05-01-2024 Protein [Mass/Vol] 6.5 g/dL 6.4-8.2 [facility] Total protein 6.5 g/dL 6.4-8.2 [facility] Urea nitrogen [Mass/Vol]Orde red By: Jessenia Yoder on 05-01-2024 Serum or plasma urea nitrogen measurement (mass/volume) 18 mg/dL 11-09 [facility] Vitamin B12on 05-01-2024 Cobalamin (Vitamin B12) [Mass/Vol] 615 pg/mL Normal [facility] Comment on above: Performed By: #### L 501.9520, L500.4050, L501.9985, L503.0105 ####[facility] [address] [place], [address] Vitamin B12 measurementOrder ed By: Jessenia Yoder on 05-01-2024 Cobalamin (Vitamin B12) [Mass/Vol] 615 pg/mL [facility] Vitamin B12 measurement 615 pg/mL [facility] B2 Microglob SerPl-mCncon Ukmt-9-Xchdhmrdveixb [Mass/Vol] 2.4 ug/mL Normal <3.1 [facility] Comment on above: Order Comment: Speci men Type: BLOOD SPECIMENOrdering Facility: [facility] Address: [address] [place] [address] Result Comment: Beta -2 Microglobulin test is performed using the [employer] immunoturbidimetric method. Results obtained with different methods or kits cannot be used interchangeably. Performed By: #### 1 952-1, 2885-2 ####[facility] LABCLIA [id number] [facility] [place] [address] [place] CBC W Auto Differential pane l (Bld)on 04-11-2024 Basophils (Bld) [#/Vol] 0.05 10*3/uL Normal <0.11 [facility] Comment on above: Order Comment: Speci men Type: BLOOD SPECIMENOrdering Facility: [facility] Address: [address] [place] [address] Performed By: #### 5 7021-8 ####[facility] [id number] [place] [address] [place] Basophils/100 WBC (Bld) 0.4 % Normal [facility] Comment on above: Order Comment: Speci men Type: BLOOD SPECIMENOrdering Facility: [facility] Address: [address] [place] [address] Performed By: #### 5 7021-8 ####[facility] [id number] [place] [address] [place] Differential cell count method Nom (Bld) Auto Normal [facility] Comment on above: Order Comment: Speci men Type: BLOOD SPECIMENOrdering Facility: [facility] Address: [address] [place] [address] Performed By: #### 5 7021-8 ####[facility] [id number] [place] [address] [place] Eosinophils (Bld) [#/Vol] 0.15 10*3/uL Normal <0.46 [facility] Comment on above: Order Comment: Speci men Type: BLOOD SPECIMENOrdering Facility: [facility] Address: [address] [place] [address] Performed By: #### 5 7021-8 ####[facility] HUMBERTOWNCLIA [id number] [place] [address] [place] Eosinophils/100 WBC (Bld) 1.3 % Normal [facility] Comment on above: Order Comment: Speci men Type: BLOOD SPECIMENOrdering Facility: [facility] Address: [address] [place] [address] Performed By: #### 5 7021-8 ####[facility] YANDELEATONNCLIA [id number] [place] [address] [place] Erythrocyte distribution width (RBC) [Ratio] 17.1 % High 11.5-15.0 [facility] Comment on above: Order Comment: Speci men Type: BLOOD SPECIMENOrdering Facility: [facility] Address: [address] [place] [address] Performed By: #### 5 7021-8 ####[facility] [id number] [place] [address] [place] Hematocrit (Bld) [Volume fraction] 40.9 % Normal 39.0-51.0 [facility] Comment on above: Order Comment: Speci men Type: BLOOD SPECIMENOrdering Facility: [facility] Address: [address] [place] [address] Performed By: #### 5 7021-8 ####[facility] [id number] [place] [address] [place] Hemoglobin (Bld) [Mass/Vol] 12.6 g/dL Low 13.0-17.0 [facility] Comment on above: Order Comment: Speci men Type: BLOOD SPECIMENOrdering Facility: [facility] Address: [address] [place] [address] Performed By: #### 5 7021-8 ####[facility] [id number] [place] [address] [place] Immature granulocytes (Bld) [#/Vol] 0.06 10*3/uL Normal <0.10 [facility] Comment on above: Order Comment: Speci men Type: BLOOD SPECIMENOrdering Facility: [facility] Address: [address] [place] [address] Performed By: #### 5 7021-8 ####[facility] [id number] [place] [address] [place] Immature granulocytes/100 WBC (Bld) 0.5 % Normal [facility] Comment on above: Order Comment: Speci men Type: BLOOD SPECIMENOrdering Facility: [facility] Address: [address] [place] [address] Performed By: #### 5 7021-8 ####[facility] [id number] [place] [address] [place] Lymphocytes (Bld) [#/Vol] 1.13 10*3/uL Normal 1.00-4.0 0 [facility] Comment on above: Order Comment: Speci men Type: BLOOD SPECIMENOrdering Facility: [facility] Address: [address] [place] [address] Performed By: #### 5 7021-8 ####[facility] [id number] [place] [address] [place] Lymphocytes/100 WBC (Bld) 10.1 % Normal [facility] Comment on above: Order Comment: Speci men Type: BLOOD SPECIMENOrdering Facility: [facility] Address: [address] [place] [address] Performed By: #### 5 7021-8 ####[facility] [id number] [place] [address] [place] MCH (RBC) [Entitic mass] 24.6 pg Low 26.0-34.0 [facility] Comment on above: Order Comment: Speci men Type: BLOOD SPECIMENOrdering Facility: [facility] Address: [address] [place] [address] Performed By: #### 5 7021-8 ####[facility] [id number] [place] [address] [place] MCHC (RBC) [Mass/Vol] 30.8 g/dL Normal 30.5-36.0 [facility] Comment on above: Order Comment: Speci men Type: BLOOD SPECIMENOrdering Facility: [facility] Address: [address] [place] [address] Performed By: #### 5 7021-8 ####[facility] [id number] [place] [address] [place] MCV (RBC) [Entitic vol] 79.9 fL Low 80.0-100.0 [facility] Comment on above: Order Comment: Speci men Type: BLOOD SPECIMENOrdering Facility: [facility] Address: [address] [place] [address] Performed By: #### 5 7021-8 ####[facility]IAL[facility]CL[facility] [id number] [place] [address] [place] Monocytes (Bld) [#/Vol] 0.74 10*3/uL Normal <0.87 [facility] Comment on above: Order Comment: Speci men Type: BLOOD SPECIMENOrdering Facility: [facility] Address: [address] [place] [address] Performed By: #### 5 7021-8 ####[facility]NCLI [id number] [place] [address] [place] Monocytes/100 WBC (Bld) 6.6 % Normal [facility] Comment on above: Order Comment: Speci men Type: BLOOD SPECIMENOrdering Facility: [facility] Address: [address] [place] [address] Performed By: #### 5 7021-8 ####[facility] MILLWNCLIA [id number] [place] [address] [place] Neutrophils (Bld) [#/Vol] 9.07 10*3/uL High 1.45-7.5 0 [facility] Comment on above: Order Comment: Speci men Type: BLOOD SPECIMENOrdering Facility: [facility] Address: [address] [place] [address] Performed By: #### 5 7021-8 ####[facility] BEACHWNCLIA [id number] [place] [address] [place] Neutrophils/100 WBC (Bld) 81.1 % Normal [facility] Comment on above: Order Comment: Speci men Type: BLOOD SPECIMENOrdering Facility: [facility] Address: [address] [place] [address] Performed By: #### 5 7021-8 ####[facility]CL[facility] [id number] [place] [address] [place] Nucleated RBC (Bld) [#/Vol] 10*3/uL Normal <0.01 [facility] Comment on above: Order Comment: Speci men Type: BLOOD SPECIMENOrdering Facility: [facility] Address: [address] [place] [address] Performed By: #### 5 7021-8 ####[facility] MILLWNCLIA [id number] [place] [address] [place] Nucleated RBC/100 WBC (Bld) [Ratio] 0.0 /100 WBC Normal [facility] Comment on above: Order Comment: Speci men Type: BLOOD SPECIMENOrdering Facility: [facility] Address: [address] [place] [address] Performed By: #### 5 7021-8 ####[facility] MILLEATONNCLIA [id number] [place] [address] [place] Platelet mean volume (Bld) [Entitic vol] 9.7 fL Normal 9.0-12.7 [facility] Comment on above: Order Comment: Speci men Type: BLOOD SPECIMENOrdering Facility: [facility] Address: [address] [place] [address] Performed By: #### 5 7021-8 ####[facility] HOSPITALLIA [id number] [place] [address] [place] Platelets (Bld) [#/Vol] 300 10*3/uL Normal 150-400 [facility] Comment on above: Order Comment: Speci men Type: BLOOD SPECIMENOrdering Facility: [facility] Address: [address] [place] [address] Performed By: #### 5 7021-8 ####[facility]CL[facility] [id number] [place] [address] [place] RBC (Bld) [#/Vol] 5.12 10*6/uL Normal 4.20-6.00 [facility] Comment on above: Order Comment: Speci men Type: BLOOD SPECIMENOrdering Facility: [facility] Address: [address] [place] [address] Performed By: #### 5 7021-8 ####[facility] HOSPITALLIA [id number] [place] [address] [place] WBC (Bld) [#/Vol] 11.20 10*3/uL High 3.70-11.00 [facility] Comment on above: Order Comment: Speci men Type: BLOOD SPECIMENOrdering Facility: [facility] Address: [address] [place] [address] Performed By: #### 5 7021-8 ####[facility]CL[facility] [id number] [place] [address] [place] CNOVSPon 04-11-2024 CNOVSP Normal [facility] Comprehensive metabolic 2000 panelon 04-11-2024 Albumin [Mass/Vol] 3.9 g/dL Normal 3.9-4.9 [facility] Comment on above: Order Comment: Speci men Type: BLOOD SPECIMENOrdering Facility: [facility] Address: [address] [place] [address] Performed By: #### 2 532-0, 67397-8 ####[facility] MEM[facility]IALRONAKLIA [id number] [place] [address] [place] ALP [Catalytic activity/Vol] 129 U/L High 38-113 [facility] Comment on above: Order Comment: Speci men Type: BLOOD SPECIMENOrdering Facility: [facility] Address: [address] [place] [address] Performed By: #### 2 532-0, 04934-2 ####[facility] HOSPITALLIA [id number] [place] [address] [place] ALT [Catalytic activity/Vol] 16 U/L Normal 10-54 [facility] Comment on above: Order Comment: Speci men Type: BLOOD SPECIMENOrdering Facility: [facility] Address: [address] [place] [address] Performed By: #### 2 532-0, 43447-8 ####[facility] HOS[facility]ITALLIA [id number] [place] [address] [place] Anion gap [Moles/Vol] 12 mmol/L Normal 8-15 [facility] Comment on above: Order Comment: Speci men Type: BLOOD SPECIMENOrdering Facility: [facility] Address: [address] [place] [address] Performed By: #### 2 532-0, 53281-2 ####[facility]IALNCLIA [id number] [place] [address] [place] AST [Catalytic activity/Vol] 13 U/L Low 14-40 [facility] Comment on above: Order Comment: Speci men Type: BLOOD SPECIMENOrdering Facility: [facility] Address: [address] [place] [address] Performed By: #### 2 532-0, 79720-8 ####[facility]IALNCLIA [id number] [place] [address] [place] Bilirubin [Mass/Vol] 0.4 mg/dL Normal 0.2-1.3 [facility] Comment on above: Order Comment: Speci men Type: BLOOD SPECIMENOrdering Facility: [facility] Address: [address] [place] [address] Performed By: #### 2 532-0, 51900-1 ####[facility] [id number] [place] [address] [place] Calcium [Mass/Vol] 9.1 mg/dL Normal 8.5-10.2 [facility] Comment on above: Order Comment: Speci men Type: BLOOD SPECIMENOrdering Facility: [facility] Address: [address] [place] [address] Performed By: #### 2 532-0, 66867-9 ####[facility] MEMORIALNCSUMIA [id number] [place] [address] [place] Chloride [Moles/Vol] 103 mmol/L Normal 98-107 [facility] Comment on above: Order Comment: Speci men Type: BLOOD SPECIMENOrdering Facility: [facility] Address: [address] [place] [address] Performed By: #### 2 532-0, 04370-5 ####[facility]IALNCLIA [id number] [place] [address] [place] CO2 [Moles/Vol] 25 mmol/L Normal 22-30 [facility] Comment on above: Order Comment: Speci men Type: BLOOD SPECIMENOrdering Facility: [facility] Address: [address] [place] [address] Performed By: #### 2 532-0, 49847-9 ####[facility] [id number] [place] [address] [place] Creatinine [Mass/Vol] 0.77 mg/dL Normal 0.73-1.22 [facility] Comment on above: Order Comment: Speci men Type: BLOOD SPECIMENOrdering Facility: [facility] Address: [address] [place] [address] Performed By: #### 2 532-0, 23186-1 ####[facility] [id number] [place] [address] [place] Creatinine and Glomerular filtration rate.predicted panel (S/P/Bld) 95 mL/min/1.73m??? Normal >=60 [facility] Comment on above: Order Comment: Speci men Type: BLOOD SPECIMENOrdering Facility: [facility] Address: [address] [place] [address] Result Comment: Kimberley mated Glomerular Filtration Rate (eGFR) is calculated using the 2020 CKD-EPI creatinine equation. This equation utilizes serum creatinine, sex, and age as parameters. The creatinine assay has traceable calibration to isotope dilution-mass spectrometry. Refer to KDIGO guidelines for clinical interpretation. In patients with unstable renal function, e.g. those with acute kidney injury, the eGFR may not accurately reflect actual GFR. Performed By: #### 2 532-0, 69948-3 ####[facility] HOSPITALLIA [id number] [place] [address] [place] Glucose [Mass/Vol] 324 mg/dL High 74-99 [facility] Comment on above: Order Comment: Speci men Type: BLOOD SPECIMENOrdering Facility: [facility] Address: [address] [place] [address] Result Comment: The [place] Diabetes Association (ADA) provides guidance for cutoff values for fasting glucose and random glucose. The ADA defines fasting as no caloric intake for at least 8 hours. Fasting plasma glucose results between 100 to 125 mg/dL indicate increased risk for diabetes (prediabetes).Fasting plasma glucose results greater than or equal to 126 mg/dL meet the criteria for diagnosis of diabetes. In the absence of unequivocal hyperglycemia, results should be confirmed by repeat testing. In a patient with classic symptoms of hyperglycemia or hyperglycemic crisis, random plasma glucose results greater than or equal to 200 mg/dL meet the criteria for diagnosis of diabetes.Reference: Standards of Medical Care in Diabetes 2016, [place] [employer]. Diabetes Care. 2016.39(Suppl 1). Performed By: #### 2 532-0, 92260-1 ####[facility] [id number] [place] [address] [place] Potassium [Moles/Vol] 4.6 mmol/L Normal 3.7-5.1 [facility] Comment on above: Order Comment: Speci men Type: BLOOD SPECIMENOrdering Facility: [facility] Address: [address] [place] [address] Performed By: #### 2 532-0, 80604-2 ####[facility] [id number] [place] [address] [place] Protein [Mass/Vol] 5.8 g/dL Low 6.3-8.0 [facility] Comment on above: Order Comment: Speci men Type: BLOOD SPECIMENOrdering Facility: [facility] Address: [address] [place] [address] Performed By: #### 2 532-0, 74192-6 ####[facility] [id number] [place] [address] [place] Sodium [Moles/Vol] 140 mmol/L Normal 136-144 [facility] Comment on above: Order Comment: Speci men Type: BLOOD SPECIMENOrdering Facility: [facility] Address: [address] [place] [address] Performed By: #### 2 532-0, 62224-1 ####[facility]OS[facility]ITALL[facility] [id number] [place] [address] [place] Urea nitrogen [Mass/Vol] 21 mg/dL Normal 9-24 [facility] Comment on above: Order Comment: Speci men Type: BLOOD SPECIMENOrdering Facility: [facility] Address: [address] [place] [address] Performed By: #### 2 532-0, 98359-4 ####[facility] [id number] [place] [address] [place] IMMUNOFIXATION SCREEN, SERUM on 04-11-2024 MPA RESULT No M protein is identified. Normal No M protein is identified. [facility] Comment on above: Order Comment: Speci men Type: BLOOD SPECIMENOrdering Facility: [facility] Address: [address] [place] [address] Performed By: #### I FES ####[facility] LABCLIA [id number] [place] [address] [place] STAFF REVIEW (MPA) Reviewed by Bianka Rdz MD [facility] Comment on above: Order Comment: Speci men Type: BLOOD SPECIMENOrdering Facility: [facility] Address: [address] [place] [address] Performed By: #### I FES ####[facility] LABCLIA [id number] [place] [address] [place] IMMUNOGLOBULINS,IGG,IGA,IGMo n 04-11-2024 IgA [Mass/Vol] 46 mg/dL Low 70-400 [facility] Comment on above: Order Comment: Speci men Type: BLOOD SPECIMENOrdering Facility: [facility] Address: [address] [place] [address] Performed By: #### S ERIMM ####[facility] LABCLIA [id number] [place] [address] [place] IgG [Mass/Vol] 420 mg/dL Low 700-1600 [facility] Comment on above: Order Comment: Speci men Type: BLOOD SPECIMENOrdering Facility: [facility] Address: [address] [place] [address] Performed By: #### S ERIMM ####[facility] LABCLIA [id number] [place] [address] [place] IgM [Mass/Vol] 20 mg/dL Low 40-230 [facility] Comment on above: Order Comment: Speci men Type: BLOOD SPECIMENOrdering Facility: [facility] Address: [address] [place] [address] Performed By: #### S ERIMM ####[facility] LABCLIA [id number] [place] [address] [place] KAPPA/RAMIREZ,FREE,SERon 2023 Immunoglobulin light chains.kappa.free (S) [Mass/Vol] 4.5 mg/L Normal 3.3-19.4 [facility] Comment on above: Order Comment: Speci men Type: BLOOD SPECIMENOrdering Facility: [facility] Address: [address] [place] [address] Result Comment: Rare ly, increased serum free light chains levels may not be detected or accurately quantified due to prozone phenomenon or in high viscosity samples using this immunoturbidimetric assay. Correlation with other laboratory results and clinical findings is recommended.The [place] Free Light Chain was performed using the Binding Site Optilite immunoturbidimetric method. Result obtained with different assay methods or kits cannot be used interchangeably. Performed By: #### K LFRS ####[facility] LABCLIA [id number] [place] [address] [place] Immunoglobulin light chains.kappa/Immunoglobuli n light chains.lambda (S) [Mass ratio] 0.76 Normal 0.26-1.65 [facility] Comment on above: Order Comment: Speci men Type: BLOOD SPECIMENOrdering Facility: [facility] Address: [address] [place] [address] Performed By: #### K LFRS ####[facility] LABCLIA [id number] [place] [address] [place] Immunoglobulin light chains.lambda.free [Mass/Vol] 5.9 mg/L Normal 5.7-26.3 [facility] Comment on above: Order Comment: Speci men Type: BLOOD SPECIMENOrdering Facility: [facility] Address: [address] [place] [address] Result Comment: Rare ly, increased serum free light chains levels may not be detected or accurately quantified due to prozone phenomenon or in high viscosity samples using this immunoturbidimetric assay. Correlation with other laboratory results and clinical findings is recommended.The Lambda Free Light Chain was performed using the Binding Site Optilite immunoturbidimetric method. Result obtained with different assay methods or kits cannot be used interchangeably. Performed By: #### K LFRS ####[facility] LABIA [id number] [place] [address] [place] LDH SerPl-cCncon 04-11-2024 LDH [Catalytic activity/Vol] 193 U/L Normal 135-225 [facility] Comment on above: Order Comment: Speci men Type: BLOOD SPECIMENOrdering Facility: [facility] Address: [address] [place] [address] Performed By: #### 2 532-0, 25214-4 ####[facility] [id number] [place] [address] [place] MONOCLONAL PROT UR W/INTERPo n 04-11-2024 STAFF REVIEW (PA) Reviewed by Bianka Rdz MD [facility] Comment on above: Order Comment: Speci men Type: URINE SPECIMENOrdering Facility: [facility] Address: [address] [place] [address] Performed By: #### U RMPA ####[facility] LABIA [id number] [place] [address] [place] UMPA RESULT No M protein is identified. Normal No M protein is identified. [facility] Comment on above: Order Comment: Speci men Type: URINE SPECIMENOrdering Facility: [facility] Address: [address] [place] [address] Performed By: #### U RMPA ####[facility] LABCLIA [id number] [place] [address] [place] PROTEIN ELECTROPHORESIS SERU M (P)on 04-11-2024 Albumin [Mass/Vol] 3.52 g/dL Normal 3.43-5.41 [facility] Comment on above: Order Comment: Speci men Type: BLOOD SPECIMENOrdering Facility: [facility] Address: [address] [place] [address] Performed By: #### L [id number] ####[facility] LABIA [id number] [place] [address] [place] Alpha 1 globulin Elph [Mass/Vol] 0.30 g/dL Normal 0.18-0.43 [facility] Comment on above: Order Comment: Speci men Type: BLOOD SPECIMENOrdering Facility: [facility] Address: [address] [place] [address] Performed By: #### L [id number] ####[facility] LABCLIA [id number] [place] [address] [place] Alpha 2 globulin Elph [Mass/Vol] 0.80 g/dL Normal 0.42-0.98 [facility] Comment on above: Order Comment: Speci men Type: BLOOD SPECIMENOrdering Facility: [facility] Address: [address] [place] [address] Performed By: #### L [id number] ####[facility] LABIA [id number] [place] [address] [place] Beta globulin Elph [Mass/Vol] 0.64 g/dL Normal 0.61-1.17 [facility] Comment on above: Order Comment: Speci men Type: BLOOD SPECIMENOrdering Facility: [facility] Address: [address] [place] [address] Performed By: #### L [id number] ####[facility] LABIA [id number] [place] [address] [place] Gamma globulin Elph [Mass/Vol] 0.34 g/dL Low 0.53-1.51 [facility] Comment on above: Order Comment: Speci men Type: BLOOD SPECIMENOrdering Facility: [facility] Address: [address] [place] [address] Performed By: #### L [id number] ####[facility] LABIA [id number] [place] [address] [place] INTERPRETATION COMMENT FOR PROTEIN ELECTROPHORESIS Hypogammaglobulinemia is present, which can be seen in the setting of monoclonal gammopathy. If clinically indicated, monoclonal protein analysis and serum free light chain analysis are suggested to evaluate further for monoclonal gammopathy. Normal [facility] Comment on above: Order Comment: Speci men Type: BLOOD SPECIMENOrdering Facility: [facility] Address: [address] [place] [address] Performed By: #### L [id number] ####[facility] LABIA [id number] [address] [place] M-PROTEIN LOCATION Normal [facility] Comment on above: Order Comment: Speci men Type: BLOOD SPECIMENOrdering Facility: [facility] Address: [address] [place] [address] Result Comment: Not Applicable. Performed By: #### L [id number] ####[facility] LABIA [id number] [place] [address] [place] Protein Fractions [Interp] No definitive M protein is identified on protein electrophoresis. Normal No definitive M protein is identified on protein electrophor esis. [facility] Comment on above: Order Comment: Speci men Type: BLOOD SPECIMENOrdering Facility: [facility] Address: [address] [place] [address] Performed By: #### L [id number] ####[facility] LABCLIA [id number] [place] [address] [place] Protein.monoclonal Elph [Mass/Vol] 0.00 g/dL Normal <=0.00 [facility] Comment on above: Order Comment: Speci men Type: BLOOD SPECIMENOrdering Facility: [facility] Address: [address] [place] [address] Performed By: #### L [id number] ####[facility] LABIA [id number] [place] [address] [place] SPE STAFF REVIEW Reviewed by Bianka Rdz MD [facility] Comment on above: Order Comment: Speci men Type: BLOOD SPECIMENOrdering Facility: [facility] Address: [address] [place] [address] Performed By: #### L [id number] ####[facility] LABIA [id number] [place] [address] [place] Prot SerPl-mCncon 04-11-2024 Protein [Mass/Vol] 5.6 g/dL Low 6.3-8.0 [facility] Comment on above: Order Comment: Speci men Type: BLOOD SPECIMENOrdering Facility: [facility] Address: [address] [place] [address] Performed By: #### 1 952-1, 2885-2 ####[facility] LABIA [id number] [place] [address] [place] Prot Ur-mCncon 04-11-2024 Protein (U) [Mass/Vol] mg/dL Normal 0-[address] [facility] Comment on above: Order Comment: Speci men Type: URINE SPECIMENOrdering Facility: [facility] Address: [address] [place] [address] Performed By: #### 2 888-6 ####[facility] [id number] [place] [address] [place] URINE PROTEIN ELECTROPHORESI S RANDOM (P)on 04-11-2024 Albumin Elph (U) [Mass fraction] 56.16 % Normal [facility] Comment on above: Order Comment: Speci men Type: URINE SPECIMENOrdering Facility: [facility] Address: [address] [place] [address] Performed By: #### L [id number] ####[facility] LABIA [id number] [place] [address] [place] Alpha 1 globulin Elph (U) [Mass fraction] 5.78 % Normal [facility] Comment on above: Order Comment: Speci men Type: URINE SPECIMENOrdering Facility: [facility] Address: [address] [place] [address] Performed By: #### L [id number] ####[facility] LABIA [id number] [place] [address] [place] Alpha 2 globulin Elph (U) [Mass fraction] 16.98 % Normal [facility] Comment on above: Order Comment: Speci men Type: URINE SPECIMENOrdering Facility: [facility] Address: [address] [place] [address] Performed By: #### L [id number] ####[facility] LABIA [id number] [place] [address] [place] Beta globulin Elph (U) [Mass fraction] 14.04 % Normal [facility] Comment on above: Order Comment: Speci men Type: URINE SPECIMENOrdering Facility: [facility] Address: [address] [place] [address] Performed By: #### L [id number] ####[facility] LABIA [id number] [place] [address] [place] Gamma globulin Elph (U) [Mass fraction] 7.05 % Normal [facility] Comment on above: Order Comment: Speci men Type: URINE SPECIMENOrdering Facility: [facility] Address: [address] [place] [address] Performed By: #### L [id number] ####[facility] [id number] [place] [address] [place] Protein Fractions Elph Shalom (U) [Interp] No definitive M protein is identified on protein electrophoresis. Normal No definitive M protein is identified on protein electrophor esis. [facility] Comment on above: Order Comment: Speci men Type: URINE SPECIMENOrdering Facility: [facility] Address: [address] [place] [address] Performed By: #### L [id number] ####[facility] [id number] [address] [place] STAFF REVIEW (URINE ELECTRO) Reviewed by Bianka Rdz MD Normal [facility] Comment on above: Order Comment: Speci men Type: URINE SPECIMENOrdering Facility: [facility] Address: [address] [place] [address] Performed By: #### L [id number] ####[facility] [id number] [place] [address] [place] CNOVon 03-21-2024 CNOV Normal [facility] XR CHEST 2V FRONTAL/LATon XR CHEST 2V FRONTAL/LAT Normal C [facility] XR Chest PA and Lateralon IMPRESSION: No acute radiographic abnormality. Wheel Adjuster: [facility] Transcribe Date/Time: Mar 21 2024 8:51A Dictated by : SKYLER NEWMAN MD This examination was interpreted and the report reviewed and electronically signed by: SKYLER NEWMAN MD on Mar 21 2024 8:52AM [facility] DIVISION OF RADIOLOGY * * *Final Report* * * DATE OF EXAM: Mar 21 2024 8:45AM WOX 5291 - XR CHEST 2V FRONTAL/LAT / PROCEDURE REASON: Acute cough * * * * Physician Interpretation * * * * EXAMINATION: CHEST RADIOGRAPH (2 VIEW FRONTAL & LATERAL) CLINICAL HISTORY: Acute cough MQ: XC2_6 EXAM DATE/TIME: 03/21/2024 8:45 AM COMPARISON: 03/12/2024 RESULT: Lines, tubes, and devices: None. Lungs and pleura: No consolidation. No lung mass. No pleural effusion. No pneumothorax. Cardiomediastinal silhouette: Normal cardiomediastinal silhouette. Bones and soft tissues: Unremarkable. DIVISION OF RADIOLOGY Provider, [facility] - 03/21/2024 * * *Final Report* * * DATE OF EXAM: Mar 21 2024 8:45AM WOX 5291 - XR CHEST 2V FRONTAL/LAT / PROCEDURE REASON: Acute cough * * * * Physician Interpretation * * * * EXAMINATION: CHEST RADIOGRAPH (2 VIEW FRONTAL & LATERAL) CLINICAL HISTORY: Acute cough MQ: XC2_6 EXAM DATE/TIME: 03/21/2024 8:45 AM COMPARISON: 03/12/2024 RESULT: Lines, tubes, and devices: None. Lungs and pleura: No consolidation. No lung mass. No pleural effusion. No pneumothorax. Cardiomediastinal silhouette: Normal cardiomediastinal silhouette. Bones and soft tissues: Unremarkable. IMPRESSION IMPRESSION: No acute radiographic abnormality. Wheel Adjuster: PSCB Transcribe Date/Time: Mar 21 2024 8:51A Dictated by : SKYLER NEWMAN MD This examination was interpreted and the report reviewed and electronically signed by: SKYLER NEWMAN MD on Mar 21 2024 8:52AM EST [facility] Radiology Study observation (narrative) Natalie Damon XR Chest PA and LateralOrder ed By: Ccf Provider on 03-21-2024 [facility] B2 Microglob SerPl-mCncon [id number]-[id number]-[id number] [Mass/Vol] 2.9 ug/mL Normal <3.1 [facility] Comment on above: Order Comment: Speci men Type: BLOOD SPECIMENOrdering Facility: [facility] Address: [address] [place] [address] [place] [address] Result Comment: Beta -2 Microglobulin test is performed using the [employer] immunoturbidimetric method. Results obtained with different methods or kits cannot be used interchangeably. Performed By: #### 2 [id number] ####[facility] LABCLIA [id number] [facility] [id number] [address] [place] CBC W Auto Differential pane l (Bld)on 03-13-2024 Basophils (Bld) [#/Vol] 10*3/uL Normal <0.11 C [facility] Comment on above: Order Comment: Speci men Type: BLOOD SPECIMENOrdering Facility: [facility] Address: [address] [place] [address] Performed By: #### 5 7021-8 ####[facility] [id number] [place] [address] [place] Basophils/100 WBC (Bld) 0.3 % Normal [facility] Comment on above: Order Comment: Speci men Type: BLOOD SPECIMENOrdering Facility: [facility] Address: [address] [place] [address] Performed By: #### 5 7021-8 ####[facility] [id number] [place] [address] [place] Differential cell count method Nom (Bld) Auto Normal [facility] Comment on above: Order Comment: Speci men Type: BLOOD SPECIMENOrdering Facility: [facility] Address: [address] [place] [address] Performed By: #### 5 7021-8 ####[facility] [id number] [place] [address] [place] Eosinophils (Bld) [#/Vol] 0.12 10*3/uL Normal <0.46 [facility] Comment on above: Order Comment: Speci men Type: BLOOD SPECIMENOrdering Facility: [facility] Address: [address] [place] [address] Performed By: #### 5 7021-8 ####[facility] [id number] [place] [address] [place] Eosinophils/100 WBC (Bld) 1.7 % Normal [facility] Comment on above: Order Comment: Speci men Type: BLOOD SPECIMENOrdering Facility: [facility] Address: [address] [place] [address] Performed By: #### 5 7021-8 ####[facility] [id number] [place] [address] [place] Erythrocyte distribution width (RBC) [Ratio] 17.9 % High 11.5-15.0 [facility] Comment on above: Order Comment: Speci men Type: BLOOD SPECIMENOrdering Facility: [facility] Address: [address] [place] [address] Performed By: #### 5 7021-8 ####[facility] [id number] [address] [place] Hematocrit (Bld) [Volume fraction] 43.7 % Normal 39.0-51.0 [facility] Comment on above: Order Comment: Speci men Type: BLOOD SPECIMENOrdering Facility: [facility] Address: [address] [place] [address] Performed By: #### 5 7021-8 ####[facility] [id number] [place] [address] [place] Hemoglobin (Bld) [Mass/Vol] 13.5 g/dL Normal 13.0-17.0 [facility] Comment on above: Order Comment: Speci men Type: BLOOD SPECIMENOrdering Facility: [facility] Address: [address] [place] [address] Performed By: #### 5 7021-8 ####[facility] [id number] [place] [address] [place] Immature granulocytes (Bld) [#/Vol] 0.04 10*3/uL Normal <0.10 [facility] Comment on above: Order Comment: Speci men Type: BLOOD SPECIMENOrdering Facility: [facility] Address: [address] [place] [address] Performed By: #### 5 7021-8 ####[facility] [id number] [place] [address] [place] [facility] Immature granulocytes/100 WBC (Bld) 0.6 % Normal [facility] Comment on above: Order Comment: Speci men Type: BLOOD SPECIMENOrdering Facility: [facility] Address: [address] [place] [address] Performed By: #### 5 7021-8 ####[facility] [id number] [place] [address] [place] Lymphocytes (Bld) [#/Vol] 0.89 10*3/uL Low 1.00-4.0 0 [facility] Comment on above: Order Comment: Speci men Type: BLOOD SPECIMENOrdering Facility: [facility] Address: [address] [place] [address] Performed By: #### 5 7021-8 ####[facility] [id number] [address] [place] Lymphocytes/100 WBC (Bld) 12.8 % Normal [facility] Comment on above: Order Comment: Speci men Type: BLOOD SPECIMENOrdering Facility: [facility] Address: [address] [place] [address] Performed By: #### 5 7021-8 ####[facility] [id number] [place] [address] [place] MCH (RBC) [Entitic mass] 24.8 pg Low 26.0-34.0 [facility] Comment on above: Order Comment: Speci men Type: BLOOD SPECIMENOrdering Facility: [facility] Address: [address] [place] [address] Performed By: #### 5 7021-8 ####[facility] [id number] [place] [address] [place] MCHC (RBC) [Mass/Vol] 30.9 g/dL Normal 30.5-36.0 [facility] Comment on above: Order Comment: Speci men Type: BLOOD SPECIMENOrdering Facility: [facility] Address: [address] [place] [address] Performed By: #### 5 7021-8 ####[facility] [id number] [place] [address] [place] MCV (RBC) [Entitic vol] 80.3 fL Normal 80.0-100.0 [facility] Comment on above: Order Comment: Speci men Type: BLOOD SPECIMENOrdering Facility: [facility] Address: [address] [place] [address] Performed By: #### 5 7021-8 ####[facility] [id number] [place] [address] [place] Monocytes (Bld) [#/Vol] 0.64 10*3/uL Normal <0.87 [facility] Comment on above: Order Comment: Speci men Type: BLOOD SPECIMENOrdering Facility: [facility] Address: [address] [place] [address] Performed By: #### 5 7021-8 ####[facility] [id number] [place] [address] [place] Monocytes/100 WBC (Bld) 9.2 % Normal [facility] Comment on above: Order Comment: Speci men Type: BLOOD SPECIMENOrdering Facility: [facility] Address: [address] [place] [address] Performed By: #### 5 7021-8 ####[facility] [id number] [place] [address] [place] Neutrophils (Bld) [#/Vol] 5.25 10*3/uL Normal 1.45-7.5 0 [facility] Comment on above: Order Comment: Speci men Type: BLOOD SPECIMENOrdering Facility: [facility] Address: [address] [place] [address] Performed By: #### 5 7021-8 ####[facility] [id number] [place] [address] [place] Neutrophils/100 WBC (Bld) 75.4 % Normal [facility] Comment on above: Order Comment: Speci men Type: BLOOD SPECIMENOrdering Facility: [facility] Address: [address] [place] [address] Performed By: #### 5 7021-8 ####[facility] [id number] [place] [address] [place] Nucleated RBC (Bld) [#/Vol] 10*3/uL Normal <0.01 [facility] Comment on above: Order Comment: Speci men Type: BLOOD SPECIMENOrdering Facility: [facility] Address: [address] [place] [address] Performed By: #### 5 7021-8 ####[facility] [id number] [place] [address] [place] Nucleated RBC/100 WBC (Bld) [Ratio] 0.0 /100 WBC Normal [facility] Comment on above: Order Comment: Speci men Type: BLOOD SPECIMENOrdering Facility: [facility] Address: [address] [place] [address] Performed By: #### 5 7021-8 ####[facility] [id number] [place] [address] [place] Platelet mean volume (Bld) [Entitic vol] 9.7 fL Normal 9.0-12.7 [facility] Comment on above: Order Comment: Speci men Type: BLOOD SPECIMENOrdering Facility: [facility] Address: [address] [place] [address] Performed By: #### 5 7021-8 ####[facility] BONCLIA [id number] [place] [address] [place] Platelets (Bld) [#/Vol] 260 10*3/uL Normal 150-400 [facility] Comment on above: Order Comment: Speci men Type: BLOOD SPECIMENOrdering Facility: [facility] Address: [address] [place] [address] Performed By: #### 5 7021-8 ####[facility] YANDELEATONNCLIA [id number] [place] [address] [place] RBC (Bld) [#/Vol] 5.44 10*6/uL Normal 4.20-6.00 [facility] Comment on above: Order Comment: Speci men Type: BLOOD SPECIMENOrdering Facility: [facility] Address: [address] [place] [address] Performed By: #### 5 7021-8 ####[facility] YANDELEATONNCSUMIA [id number] [place] [address] [place] WBC (Bld) [#/Vol] 6.96 10*3/uL Normal 3.70-11.00 [facility] Comment on above: Order Comment: Speci men Type: BLOOD SPECIMENOrdering Facility: [facility] Address: [address] [place] [address] Performed By: #### 5 7021-8 ####[facility] [id number] [place] [address] [place] CNOVSPon 03-13-2024 CNOVSP Normal [facility] metabolic 2000 panelon 03-13-2024 Albumin [Mass/Vol] 4.0 g/dL Normal 3.9-4.9 [facility] Comment on above: Order Comment: Speci men Type: BLOOD SPECIMENOrdering Facility: [facility] Address: [address] [place] [address] Performed By: #### 2 4323-8, 2531-0 ####[facility] SORIANORONAKFARAZ [id number] [place] [address] [place] ALP [Catalytic activity/Vol] 154 U/L High 38-113 [facility] Comment on above: Order Comment: Speci men Type: BLOOD SPECIMENOrdering Facility: [facility] Address: [address] [place] [address] Performed By: #### 2 4323-8, 2531-0 ####[facility] YANDELTEJAL [id number] [place] [address] [place] ALT [Catalytic activity/Vol] 17 U/L Normal 10-54 [facility] Comment on above: Order Comment: Speci men Type: BLOOD SPECIMENOrdering Facility: [facility] Address: [address] [place] [address] Performed By: #### 2 4323-8, 2531-0 ####[facility] YANDELVIRGINIAELSI [id number] [place] [address] [place] Anion gap [Moles/Vol] 10 mmol/L Normal 8-15 [facility] Comment on above: Order Comment: Speci men Type: BLOOD SPECIMENOrdering Facility: [facility] Address: [address] [place] [address] Performed By: #### 2 4323-8, 2532-0 ####[facility] YANDELJELENAA [id number] [place] [address] [place] AST [Catalytic activity/Vol] 14 U/L Normal 14-40 [facility] Comment on above: Order Comment: Speci men Type: BLOOD SPECIMENOrdering Facility: [facility] Address: [address] [place] [address] Performed By: #### 2 4323-8, 2531-0 ####[facility] MILLTOWNCLIA [id number] [place] [address] [place] Bilirubin [Mass/Vol] 0.4 mg/dL Normal 0.2-1.3 [facility] Comment on above: Order Comment: Speci men Type: BLOOD SPECIMENOrdering Facility: [facility] Address: [address] [place] [address] Performed By: #### 2 4328, 2531-0 ####[facility] MILLTOWNCLIA [id number] [place] [address] [place] Calcium [Mass/Vol] 9.3 mg/dL Normal 8.5-10.2 [facility] Comment on above: Order Comment: Speci men Type: BLOOD SPECIMENOrdering Facility: [facility] Address: [address] [place] [address] Performed By: #### 2 4328, 2531-0 ####[facility] MILLTOWNCLIA [id number] [place] [address] [place] Chloride [Moles/Vol] 108 mmol/L High 98-107 [facility] Comment on above: Order Comment: Speci men Type: BLOOD SPECIMENOrdering Facility: [facility] Address: [address] [place] [address] Performed By: #### 2 4328, 2531-0 ####[facility] MILLTOWNCLIA [id number] [place] [address] [place] CO2 [Moles/Vol] 23 mmol/L Normal 22-30 [facility] Comment on above: Order Comment: Speci men Type: BLOOD SPECIMENOrdering Facility: [facility] Address: [address] [place] [address] Performed By: #### 2 4323-8, 2531-0 ####[facility] [id number] [place] [address] [place] Creatinine [Mass/Vol] 0.74 mg/dL Normal 0.73-1.22 [facility] Comment on above: Order Comment: Mila pichardo Type: BLOOD SPECIMENOrdering Facility: [facility] Address: [address] [place] [address] Performed By: #### 2 4323-8, 0 ####[facility] [id number] [place] [address] [place] Creatinine and Glomerular filtration rate.predicted panel (S/P/Bld) 97 mL/min/1.73m??? Normal >=60 [facility] Comment on above: Order Comment: Mila pichardo Type: BLOOD SPECIMENOrdering Facility: [facility] Address: [address] [place] [address] Result Comment: Kimberley mated Glomerular Filtration Rate (eGFR) is calculated using the 2020 CKD-EPI creatinine equation. This equation utilizes serum creatinine, sex, and age as parameters. The creatinine assay has traceable calibration to isotope dilution-mass spectrometry. Refer to KDIGO guidelines for clinical interpretation. In patients with unstable renal function, e.g. those with acute kidney injury, the eGFR may not accurately reflect actual GFR. Performed By: #### 2 4323-8, 0 ####[facility] [id number] [place] [address] [place] Glucose [Mass/Vol] 154 mg/dL High 74-99 [facility] Comment on above: Order Comment: Mila marino Type: BLOOD SPECIMENOrdering Facility: [facility] Address: [address] [place] [address] Result Comment: The [place] [employer] (ADA) provides guidance for cutoff values for fasting glucose and random glucose. The ADA defines fasting as no caloric intake for at least 8 hours. Fasting plasma glucose results between 100 to 125 mg/dL indicate increased risk for diabetes (prediabetes).Fasting plasma glucose results greater than or equal to 126 mg/dL meet the criteria for diagnosis of diabetes. In the absence of unequivocal hyperglycemia, results should be confirmed by repeat testing. In a patient with classic symptoms of hyperglycemia or hyperglycemic crisis, random plasma glucose results greater than or equal to 200 mg/dL meet the criteria for diagnosis of diabetes.Reference: Standards of Medical Care in Diabetes 2016, [place] [employer]. Diabetes Care. 2016.39(Suppl 1). Performed By: #### 2 4323-8, 0 ####[facility] MILLWRONAKLIA [id number] [place] [address] [place] Potassium [Moles/Vol] 4.0 mmol/L Normal 3.7-5.1 [facility] Comment on above: Order Comment: Speci men Type: BLOOD SPECIMENOrdering Facility: [facility] Address: [address] [place] [address] Performed By: #### 2 4323-8, 0 ####[facility]IAL[facility] [id number] [place] [address] [place] Protein [Mass/Vol] 6.3 g/dL Normal 6.3-8.0 [facility] Comment on above: Order Comment: Speci men Type: BLOOD SPECIMENOrdering Facility: [facility] Address: [address] [place] [address] Performed By: #### 2 4323-8, 0 ####[facility]OSPITALFARAZ [id number] [place] [address] [place] Sodium [Moles/Vol] 141 mmol/L Normal 136-144 [facility] Comment on above: Order Comment: Speci men Type: BLOOD SPECIMENOrdering Facility: [facility] Address: [address] [place] [address] Performed By: #### 2 4323-8, 0 ####[facility]IALRONAKLIA [id number] [place] [address] [place] Urea nitrogen [Mass/Vol] 19 mg/dL Normal 9-24 [facility] Comment on above: Order Comment: Speci men Type: BLOOD SPECIMENOrdering Facility: [facility] Address: [address] [place] [address] Performed By: #### 2 4323-8, 2532-0 ####[facility] [id number] [place] [address] [place] IMMUNOFIXATION SCREEN, SERUM on 03-13-2024 INTERPRETATION (MPA) Normal [facility] Comment on above: Order Comment: Speci men Type: BLOOD SPECIMENOrdering Facility: [facility] Address: [address] [place] [address] Performed By: #### I FESC ####[facility] LABCLIA [id number] [place] [address] [place] MPA RESULT M protein is present. Abnormal No M protein is identified. [facility] Comment on above: Order Comment: Speci men Type: BLOOD SPECIMENOrdering Facility: [facility] Address: [address] [place] [address] Performed By: #### I FES ####[facility] LABCLIA [id number] [address] [place] STAFF REVIEW ([facility]) Reviewed by Venkata Schrader MD, Ph.D ([id number]) Normal [facility] Comment on above: Order Comment: Speci men Type: BLOOD SPECIMENOrdering Facility: [facility] Address: [address] [place] [address] Performed By: #### I FESC ####[facility] LABCLIA [id number] [place] [id number] [place] IMMUNOGLOBULINS,IGG,IGA,IGMo n 03-13-2024 IgA [Mass/Vol] 46 mg/dL Low 70-400 [facility] Comment on above: Order Comment: Speci men Type: BLOOD SPECIMENOrdering Facility: [facility] Address: [address] [place] [address] Performed By: #### S ERIMM ####[facility] LABCLIA [id number] [place] [address] [place] IgG [Mass/Vol] 434 mg/dL Low 700-1600 [facility] Comment on above: Order Comment: Speci men Type: BLOOD SPECIMENOrdering Facility: [facility] Address: [address] [place] [address] Performed By: #### S ERIMM ####[facility] LABCLIA [id number] [place] [address] [place] IgM [Mass/Vol] 21 mg/dL Low 40-230 [facility] Comment on above: Order Comment: Speci men Type: BLOOD SPECIMENOrdering Facility: [facility] Address: [address] [place] [address] Performed By: #### S ERIMM ####[facility] LABCLIA [id number] [place] [address] [place] KAPPA/RAMIREZ,FREE,SERon 2023 Immunoglobulin light chains.kappa.free (S) [Mass/Vol] 3.6 mg/L Normal 3.3-19.4 [facility] Comment on above: Order Comment: Speci men Type: BLOOD SPECIMENOrdering Facility: [facility] Address: [address] [place] [address] Result Comment: Rare ly, increased serum free light chains levels may not be detected or accurately quantified due to prozone phenomenon or in high viscosity samples using this immunoturbidimetric assay. Correlation with other laboratory results and clinical findings is recommended.The [place] Free Light Chain was performed using the Binding Site [employer] immunoturbidimetric method. Result obtained with different assay methods or kits cannot be used interchangeably. Performed By: #### K LFRS ####[facility] LABCLIA [id number] [place] [address] [place] Immunoglobulin light chains.kappa/Immunoglobuli n light chains.lambda (S) [Mass ratio] 0.92 Normal 0.26-1.65 [facility] Comment on above: Order Comment: Speci marino Type: BLOOD SPECIMENOrdering Facility: [facility] Address: [address] [place] [address] Performed By: #### K LFRS ####[facility] LABCLIA [id number] [place] [address] [place] Immunoglobulin light chains.lambda.free [Mass/Vol] 3.9 mg/L Low 5.7-26.3 [facility] Comment on above: Order Comment: Speci men Type: BLOOD SPECIMENOrdering Facility: [facility] Address: [address] [place] [address] Result Comment: Rare ly, increased serum free light chains levels may not be detected or accurately quantified due to prozone phenomenon or in high viscosity samples using this immunoturbidimetric assay. Correlation with other laboratory results and clinical findings is recommended.The Lambda Free Light Chain was performed using the Binding Site [employer]il[employer] immunoturbidimetric method. Result obtained with different assay methods or kits cannot be used interchangeably. Performed By: #### K LFRS ####[facility] LABCLIA [id number] [place] [address] [place] LDH SerPl-cCncon 03-13-2024 LDH [Catalytic activity/Vol] 222 U/L Normal 135-225 [facility] Comment on above: Order Comment: Speci marino Type: BLOOD SPECIMENOrdering Facility: [facility] Address: [address] [place] [address] Result Comment: Hemo lysis present. The origin of the hemolysis, in vitro versus an in vivo hemolytic process, cannot be distinguished via this assay alone. In vitro hemolysis may lead to non-physiological (spurious) elevation in lactate dehydrogenase (LDH) results. Theresult should be interpreted in context of the clinical setting and other test results. Suggest reorder as clinically indicated. Performed By: #### 2 4323-8, 2532-0 ####[facility] [id number] [place] [address] [place] MONOCLONAL PROT UR W/INTERPo n 03-13-2024 STAFF REVIEW ([facility]) Reviewed by Venkata Schrader MD, Ph.D ([id number]) Normal [facility] Comment on above: Order Comment: Speci men Type: URINE SPECIMENOrdering Facility: [facility] Address: [address] [place] [address] Performed By: #### U RMPA ####[facility] LABIA [id number] [address] [place] UMPA RESULT No M protein is identified. Normal No M protein is identified. [facility] Comment on above: Order Comment: Speci men Type: URINE SPECIMENOrdering Facility: [facility] Address: [address] [place] [address] Performed By: #### U RMPA ####[facility] LABIA [id number] [address] [place] PROTEIN ELECTROPHORESIS SERU M (P)on 03-13-2024 Albumin [Mass/Vol] 3.56 g/dL Normal 3.43-5.41 [facility] Comment on above: Order Comment: Speci men Type: BLOOD SPECIMENOrdering Facility: [facility] Address: [address] [place] [address] Performed By: #### L [id number] ####[facility] LABIA [id number] [place] [address] [place] Alpha 1 globulin Elph [Mass/Vol] 0.32 g/dL Normal 0.18-0.43 [facility] Comment on above: Order Comment: Speci men Type: BLOOD SPECIMENOrdering Facility: [facility] Address: [address] [place] [address] Performed By: #### L [id number] ####[facility] LABIA [id number] [place] [address] [place] Alpha 2 globulin Elph [Mass/Vol] 0.79 g/dL Normal 0.42-0.98 [facility] Comment on above: Order Comment: Speci men Type: BLOOD SPECIMENOrdering Facility: [facility] Address: [address] [place] [address] Performed By: #### L [id number] ####[facility] LABCLIA [id number] [place] [address] [place] Beta globulin Elph [Mass/Vol] 0.63 g/dL Normal 0.61-1.17 [facility] Comment on above: Order Comment: Speci men Type: BLOOD SPECIMENOrdering Facility: [facility] Address: [address] [place] [address] Performed By: #### L [id number] ####[facility] LABIA [id number] [place] [address] [place] Gamma globulin Elph [Mass/Vol] 0.29 g/dL Low 0.53-1.51 [facility] Comment on above: Order Comment: Speci men Type: BLOOD SPECIMENOrdering Facility: [facility] Address: [address] [place] [address] Performed By: #### L [id number] ####[facility] LABIA [id number] [place] [address] [place] INTERPRETATION COMMENT FOR PROTEIN ELECTROPHORESIS See separate immunofixation report for characterization of monoclonal gammopathy. Normal [facility] Comment on above: Order Comment: Speci men Type: BLOOD SPECIMENOrdering Facility: [facility] Address: [address] [place] [address] Performed By: #### L [id number] ####[facility] LABIA [id number] [place] [address] [place] M-PROTEIN LOCATION Gamma Fraction 1 Normal [facility] Comment on above: Order Comment: Speci men Type: BLOOD SPECIMENOrdering Facility: [facility] Address: [address] [place] [address] Performed By: #### L [id number] ####[facility] LABIA [id number] [place] [address] [place] Protein Fractions [Interp] An M protein is identified on protein electrophoresis. Abnormal No definitive M protein is identified on protein electrophor esis. [facility] Comment on above: Order Comment: Speci men Type: BLOOD SPECIMENOrdering Facility: [facility] Address: [address] [place] [address] Performed By: #### L [id number] ####[facility] [id number] [place] [address] [place] Protein.monoclonal Elph [Mass/Vol] 0.10 g/dL High <=0.00 [facility] Comment on above: Order Comment: Speci men Type: BLOOD SPECIMENOrdering Facility: [facility] Address: [address] [place] [address] Performed By: #### L [id number] ####[facility] [id number] [place] [address] [place] SPE STAFF REVIEW Reviewed by Venkata Schrader MD, Ph.D ([id number]) Normal [facility] Comment on above: Order Comment: Speci men Type: BLOOD SPECIMENOrdering Facility: [facility] Address: [address] [place] [address] Performed By: #### L [id number] ####[facility]ITALIA [id number] [place] [address] [place] Prot SerPl-mCncon 03-13-2024 Protein [Mass/Vol] 5.6 g/dL Low 6.3-8.0 [facility] Comment on above: Order Comment: Speci men Type: BLOOD SPECIMENOrdering Facility: [facility] Address: [address] [place] [address] Performed By: #### 2 885-2, 1951-04 ####[facility] LABIA [id number] [place] [address] [place] Prot Ur-mCncon 03-13-2024 Protein (U) [Mass/Vol] 9 mg/dL Normal 0-20 Cl [facility] Comment on above: Order Comment: Speci men Type: URINE SPECIMENOrdering Facility: [facility] Address: [address] [place] [address] Performed By: #### 2 888-6 ####[facility] LABIA [id number] [place] [address] [place] URINE PROTEIN ELECTROPHORESI S RANDOM (P)on 03-13-2024 Albumin Elph (U) [Mass fraction] 51.25 % Normal [facility] Comment on above: Order Comment: Speci men Type: URINE SPECIMENOrdering Facility: [facility] Address: [address] [place] [address] Performed By: #### L [id number] ####[facility] LABIA [id number] [place] [address] [place] Alpha 1 globulin Elph (U) [Mass fraction] 4.69 % Normal [facility] Comment on above: Order Comment: Speci men Type: URINE SPECIMENOrdering Facility: [facility] Address: [address] [place] [address] Performed By: #### L [id number] ####[facility] LABIA [id number] [place] [address] [place] Alpha 2 globulin Elph (U) [Mass fraction] 21.08 % Normal [facility] Comment on above: Order Comment: Speci men Type: URINE SPECIMENOrdering Facility: [facility] Address: [address] [place] [address] Performed By: #### L [id number] ####[facility] LABIA [id number] [place] [address] [place] Beta globulin Elph (U) [Mass fraction] 16.62 % Normal [facility] Comment on above: Order Comment: Speci men Type: URINE SPECIMENOrdering Facility: [facility] Address: [address] [place] [address] Performed By: #### L [id number] ####[facility] LABIA [id number] [place] [address] [place] Gamma globulin Elph (U) [Mass fraction] 6.36 % Normal [facility] Comment on above: Order Comment: Speci men Type: URINE SPECIMENOrdering Facility: [facility] Address: [address] [place] [address] Performed By: #### L [id number] ####[facility]ITALIA [id number] [place] [address] [place] Protein Fractions Elph Shalom (U) [Interp] No definitive M protein is identified on protein electrophoresis. Normal No definitive M protein is identified on protein electrophor esis. [facility] Comment on above: Order Comment: Speci men Type: URINE SPECIMENOrdering Facility: [facility] Address: [address] [place] [address] Performed By: #### L [id number] ####[facility]ITALIA [id number] [place] [address] [place] STAFF REVIEW (URINE ELECTRO) Reviewed by Venkata Schrader MD, Ph.D ([id number]) Normal [facility] Comment on above: Order Comment: Speci men Type: URINE SPECIMENOrdering Facility: [facility] Address: [address] [place] [address] Performed By: #### L [id number] ####[facility] HOSPITALIA [id number] [place] [id number] [place] CNOVon 03-12-2024 CNOV Normal [facility] CNPNon 03-12-2024 CNPN Normal [facility] XR CHEST 2V FRONTAL/LATon XR CHEST 2V FRONTAL/LAT Normal [facility] XR Chest PA and Lateralon Radiology Study observation (narrative) [facility] IMPRESSION: No acute radiographic abnormality. Wheel Adjuster: AWAIS Transcribe Date/Time: Mar 12 2024 2:08P Dictated by : BOB MARCH MD This examination was interpreted and the report reviewed and electronically signed by: BOB MARCH MD on Mar 12 2024 2:10PM [facility] DIVISION OF RADIOLOGY * * *Final Report* * * DATE OF EXAM: Mar 12 2024 2:02PM WOX [id number] - XR CHEST 2V FRONTAL/LAT / PROCEDURE REASON: Acute cough * * * * Physician Interpretation * * * * EXAMINATION: CHEST RADIOGRAPH (2 VIEW FRONTAL & LATERAL) CLINICAL HISTORY: Acute cough MQ: XC2_6 EXAM DATE/TIME: 03/12/2024 2:02 PM COMPARISON: Chest x-ray dated 05/03/2023 RESULT: Lines, tubes, and devices: None. Lungs and pleura: No consolidation. No lung mass. No pleural effusion. No pneumothorax. Cardiomediastinal silhouette: Stable cardiomediastinal silhouette. Bones and soft tissues: Degenerative changes are present within the thoracic spine. DIVISION OF RADIOLOGY Provider, [facility] - 03/12/2024 * * *Final Report* * * DATE OF EXAM: Mar 12 2024 2:02PM WOX [id number] - XR CHEST 2V FRONTAL/LAT / PROCEDURE REASON: Acute cough * * * * Physician Interpretation * * * * EXAMINATION: CHEST RADIOGRAPH (2 VIEW FRONTAL & LATERAL) CLINICAL HISTORY: Acute cough MQ: XC2_6 EXAM DATE/TIME: 03/12/2024 2:02 PM COMPARISON: Chest x-ray dated 05/03/2023 RESULT: Lines, tubes, and devices: None. Lungs and pleura: No consolidation. No lung mass. No pleural effusion. No pneumothorax. Cardiomediastinal silhouette: Stable cardiomediastinal silhouette. Bones and soft tissues: Degenerative changes are present within the thoracic spine. IMPRESSION IMPRESSION: No acute radiographic abnormality. Wheel Adjuster: AWAIS Transcribe Date/Time: Mar 12 2024 2:08P Dictated by : BOB MARCH MD This examination was interpreted and the report reviewed and electronically signed by: BOB MARCH MD on Mar 12 2024 2:10PM EST [facility] XR Chest PA and LateralOrder ed By: [facility] Provider on 03-12-2024 [facility] Internal Medicine Office Vis johana 02-28-2024 Internal Medicine Office Visit Normal [facility] B2 Microglob SerPl-mCncon Qcku-2-Lnrndihfrkcyd [Mass/Vol] 2.3 ug/mL Normal <3.1 [facility] Comment on above: Order Comment: Speci men Type: BLOOD SPECIMENOrdering Facility: [facility] Address: [address] [place] [address] Result Comment: Beta -2 Microglobulin test is performed using the [employer] immunoturbidimetric method. Results obtained with different methods or kits cannot be used interchangeably. Performed By: #### 2 885-2, 1952-1 ####[facility] LABCLIA [id number] [facility] [id number] [address] [place] CBC W Auto Differential pane l (Bld)on 02-15-2024 Basophils (Bld) [#/Vol] 0.06 10*3/uL Normal <0.11 [facility] Comment on above: Order Comment: Speci men Type: BLOOD SPECIMENOrdering Facility: [facility] Address: [address] [place] [address] Performed By: #### 5 7021-8 ####[facility] [id number] [place] [address] [place] Basophils/100 WBC (Bld) 0.6 % Normal [facility] Comment on above: Order Comment: Speci men Type: BLOOD SPECIMENOrdering Facility: [facility] Address: [address] [place] [address] Performed By: #### 5 7021-8 ####[facility] [id number] [place] [address] [place] Differential cell count method Nom (Bld) Auto Normal [facility] Comment on above: Order Comment: Speci men Type: BLOOD SPECIMENOrdering Facility: [facility] Address: [address] [place] [address] Performed By: #### 5 7021-8 ####[facility] AYUSHSUMIMarcio [id number] [place] [address] [place] Eosinophils (Bld) [#/Vol] 0.18 10*3/uL Normal <0.46 [facility] Comment on above: Order Comment: Speci men Type: BLOOD SPECIMENOrdering Facility: [facility] Address: [address] [place] [address] Performed By: #### 5 7021-8 ####[facility] [id number] [place] [address] [place] Eosinophils/100 WBC (Bld) 1.9 % Normal [facility] Comment on above: Order Comment: Speci men Type: BLOOD SPECIMENOrdering Facility: [facility] Address: [address] [place] [address] Performed By: #### 5 7021-8 ####[facility]IALNCFAR[facility] [id number] [place] [address] [place] Erythrocyte distribution width (RBC) [Ratio] 16.0 % High 11.5-15.0 [facility] Comment on above: Order Comment: Speci men Type: BLOOD SPECIMENOrdering Facility: [facility] Address: [address] [place] [address] Performed By: #### 5 7021-8 ####[facility]ITALLIA [id number] [place] [address] [place] Hematocrit (Bld) [Volume fraction] 43.6 % Normal 39.0-51.0 [facility] Comment on above: Order Comment: Speci men Type: BLOOD SPECIMENOrdering Facility: [facility] Address: [address] [place] [address] Performed By: #### 5 7021-8 ####[facility] [id number] [place] [address] [place] Hemoglobin (Bld) [Mass/Vol] 13.3 g/dL Normal 13.0-17.0 [facility] Comment on above: Order Comment: Speci men Type: BLOOD SPECIMENOrdering Facility: [facility] Address: [address] [place], [place] [address] Performed By: #### 5 7021-8 ####[facility] [id number] [place] [address] [place] Immature granulocytes (Bld) [#/Vol] 0.05 10*3/uL Normal <0.10 [facility] Comment on above: Order Comment: Speci men Type: BLOOD SPECIMENOrdering Facility: [facility] Address: [address] [place] [address] Performed By: #### 5 7021-8 ####[facility] [id number] [place] [address] [place] Immature granulocytes/100 WBC (Bld) 0.5 % Normal [facility] Comment on above: Order Comment: Speci men Type: BLOOD SPECIMENOrdering Facility: [facility] Address: [address] [place], [place] [address] Performed By: #### 5 7021-8 ####[facility] [id number] [place] [address] [place] Lymphocytes (Bld) [#/Vol] 1.51 10*3/uL Normal 1.00-4.0 0 [facility] Comment on above: Order Comment: Speci men Type: BLOOD SPECIMENOrdering Facility: [facility] Address: [address] [place], [place] [address] Performed By: #### 5 7021-8 ####[facility] [id number] [place] [address] [place] Lymphocytes/100 WBC (Bld) 16.0 % Normal [facility] Comment on above: Order Comment: Speci men Type: BLOOD SPECIMENOrdering Facility: [facility] Address: [address] [place] [address] Performed By: #### 5 7021-8 ####[facility] [id number] [place] [address] [place] MCH (RBC) [Entitic mass] 24.2 pg Low 26.0-34.0 [facility] Comment on above: Order Comment: Speci men Type: BLOOD SPECIMENOrdering Facility: [facility] Address: [address] [place] [address] Performed By: #### 5 7021-8 ####[facility] [id number] [place] [address] [place] MCHC (RBC) [Mass/Vol] 30.5 g/dL Normal 30.5-36.0 [facility] Comment on above: Order Comment: Speci men Type: BLOOD SPECIMENOrdering Facility: [facility] Address: [address] [place] [address] Performed By: #### 5 7021-8 ####[facility] [id number] [place] [address] [place] MCV (RBC) [Entitic vol] 79.4 fL Low 80.0-100.0 [facility] Comment on above: Order Comment: Speci men Type: BLOOD SPECIMENOrdering Facility: [facility] Address: [address] [place] [address] Performed By: #### 5 7021-8 ####[facility]IAL[facility]CL[facility] [id number] [place] [address] [place] Monocytes (Bld) [#/Vol] 0.84 10*3/uL Normal <0.87 [facility] Comment on above: Order Comment: Speci men Type: BLOOD SPECIMENOrdering Facility: [facility] Address: [address] [place] [address] Performed By: #### 5 7021-8 ####[facility] BEACHWMDLIA [id number] [place] [address] [place] Monocytes/100 WBC (Bld) 8.9 % Normal [facility] Comment on above: Order Comment: Speci men Type: BLOOD SPECIMENOrdering Facility: [facility] Address: [address] [place] [address] Performed By: #### 5 7021-8 ####[facility] [id number] [place] [address] [place] Neutrophils (Bld) [#/Vol] 6.81 10*3/uL Normal 1.45-7.5 0 [facility] Comment on above: Order Comment: Speci men Type: BLOOD SPECIMENOrdering Facility: [facility] Address: [address] [place] [address] Performed By: #### 5 7021-8 ####[facility] [id number] [place] [address] [place] Neutrophils/100 WBC (Bld) 72.1 % Normal [facility] Comment on above: Order Comment: Speci men Type: BLOOD SPECIMENOrdering Facility: [facility] Address: [address] [place] [address] Performed By: #### 5 7021-8 ####[facility]ITALLIA [id number] [place] [address] [place] Nucleated RBC (Bld) [#/Vol] 10*3/uL Normal <0.01 [facility] Comment on above: Order Comment: Speci men Type: BLOOD SPECIMENOrdering Facility: [facility] Address: [address] [place] [address] Performed By: #### 5 7021-8 ####[facility] YANDELEATONRONAKLIA [id number] [place] [address] [place] Nucleated RBC/100 WBC (Bld) [Ratio] 0.0 /100 WBC Normal [facility] Comment on above: Order Comment: Speci men Type: BLOOD SPECIMENOrdering Facility: [facility] Address: [address] [place] [address] Performed By: #### 5 7021-8 ####[facility]RON[facility]LIA [id number] [place] [address] [place] Platelet mean volume (Bld) [Entitic vol] 9.6 fL Normal 9.0-12.7 [facility] Comment on above: Order Comment: Speci men Type: BLOOD SPECIMENOrdering Facility: [facility] Address: [address] [place] [address] Performed By: #### 5 7021-8 ####[facility] [id number] [place] [address] [place] Platelets (Bld) [#/Vol] 346 10*3/uL Normal 150-400 [facility] Comment on above: Order Comment: Speci men Type: BLOOD SPECIMENOrdering Facility: [facility] Address: [address] [place] [address] Performed By: #### 5 7021-8 ####[facility]ITALLIA [id number] [place] [address] [place] RBC (Bld) [#/Vol] 5.49 10*6/uL Normal 4.20-6.00 [facility] Comment on above: Order Comment: Speci men Type: BLOOD SPECIMENOrdering Facility: [facility] Address: [address] [place] [address] Performed By: #### 5 7021-8 ####[facility] [id number] [place] [address] [place] WBC (Bld) [#/Vol] 9.45 10*3/uL Normal 3.70-11.00 [facility] Comment on above: Order Comment: Speci men Type: BLOOD SPECIMENOrdering Facility: [facility] Address: [address] [place] [address] Performed By: #### 5 7021-8 ####[facility] MEMORIALNCLIA [id number] [place] [address] [place] CNOVSPon 02-15-2024 CNOVSP Normal [facility] metabolic 2000 panelon 02-15-2024 Albumin [Mass/Vol] 4.0 g/dL Normal 3.9-4.9 [facility] Comment on above: Order Comment: Speci men Type: BLOOD SPECIMENOrdering Facility: [facility] Address: [address] [place] [address] Performed By: #### 2 4323-8 ####[facility]ITALL[facility] [id number] [place] [address] [place]#### 2532-0 ####[facility] LABCLIA [id number] [place] [address] [place] ALP [Catalytic activity/Vol] 151 U/L High 38-113 [facility] Comment on above: Order Comment: Speci men Type: BLOOD SPECIMENOrdering Facility: [facility] Address: [address] [place] [address] Performed By: #### 2 4323-8 ####[facility] BEACHWNCLIA [id number] [place] [address] [place]#### 2532-0 ####[facility] LABCLIA [id number] [facility] [place] [address] [place] ALT [Catalytic activity/Vol] 17 U/L Normal 10-54 [facility] Comment on above: Order Comment: Speci men Type: BLOOD SPECIMENOrdering Facility: [facility] Address: [address] [place] [address] Performed By: #### 2 4323-8 ####[facility] MILLTOWNCLIA [id number] [place] [address] [place]#### 2532-0 ####[facility] LABCLIA [id number] [place] [address] [place] Anion gap [Moles/Vol] 12 mmol/L Normal 8-15 [facility] Comment on above: Order Comment: Speci men Type: BLOOD SPECIMENOrdering Facility: [facility] Address: [address] [place] [address] Performed By: #### 2 4323-8 ####[facility] MILLWNCLIA [id number] [place] [address] [place]#### 2532-0 ####[facility] LABCLIA [id number] [place] [address] [place] AST [Catalytic activity/Vol] 15 U/L Normal 14-40 [facility] Comment on above: Order Comment: Speci men Type: BLOOD SPECIMENOrdering Facility: [facility] Address: [address] [place] [address] Performed By: #### 2 4323-8 ####[facility] MILLTOWNCLIA [id number] [place] [address] [place]#### 2532-0 ####[facility] LABCLIA [id number] [place] [address] [place] Bilirubin [Mass/Vol] 0.4 mg/dL Normal 0.2-1.3 [facility] Comment on above: Order Comment: Speci men Type: BLOOD SPECIMENOrdering Facility: [facility] Address: [address] [place] [address] Performed By: #### 2 4323-8 ####[facility] MILLWNCLIA [id number] [place] [address] [place]#### 2532-0 ####[facility] LABCLIA [id number] [place] [address] [place] Calcium [Mass/Vol] 9.1 mg/dL Normal 8.5-10.2 [facility] Comment on above: Order Comment: Speci men Type: BLOOD SPECIMENOrdering Facility: [facility] Address: [address] [place] [address] Performed By: #### 2 4323-8 ####[facility]OS[facility]ITALLIA [id number] [place] [address] [place]#### 2532-0 ####[facility] LABCLIA [id number] [place] [address] [place] Chloride [Moles/Vol] 104 mmol/L Normal 98-107 [facility] Comment on above: Order Comment: Speci men Type: BLOOD SPECIMENOrdering Facility: [facility] Address: [address] [place] [address] Performed By: #### 2 4323-8 ####[facility] MILLTOWNCLIA [id number] [place] [address] [place]#### 2532-0 ####[facility] LABCLIA [id number] [place] [address] [place] CO2 [Moles/Vol] 23 mmol/L Normal 22-30 [facility] Comment on above: Order Comment: Speci men Type: BLOOD SPECIMENOrdering Facility: [facility] Address: [address] [place] [address] Performed By: #### 2 4323-8 ####[facility] BEACHWNCLIA [id number] [place] [address] [place]#### 2532-0 ####[facility] LABCLIA [id number] [place] [address] [place] Creatinine [Mass/Vol] 0.82 mg/dL Normal 0.73-1.22 [facility] Comment on above: Order Comment: Speci men Type: BLOOD SPECIMENOrdering Facility: [facility] Address: [address] [place] [address] Performed By: #### 2 4323-8 ####[facility] [id number] [place] [address] [place]#### 2532-0 ####[facility] LABCLIA [id number] [address] Creatinine and Glomerular filtration rate.predicted panel (S/P/Bld) 94 mL/min/1.73m??? Normal >=60 [facility] Comment on above: Order Comment: Speci men Type: BLOOD SPECIMENOrdering Facility: [facility] Address: [address] [place] [address] Result Comment: Kimberley mated Glomerular Filtration Rate (eGFR) is calculated using the 2020 CKD-EPI creatinine equation. This equation utilizes serum creatinine, sex, and age as parameters. The creatinine assay has traceable calibration to isotope dilution-mass spectrometry. Refer to KDIGO guidelines for clinical interpretation. In patients with unstable renal function, e.g. those with acute kidney injury, the eGFR may not accurately reflect actual GFR. Performed By: #### 2 4323-8 ####[facility] BEACHWNCLIA [id number] [place] [address] [place]#### 2532-0 ####[facility] LABCLIA [id number] [place] [address] [place] Glucose [Mass/Vol] 299 mg/dL High 74-99 [facility] Comment on above: Order Comment: Mila pichardo Type: BLOOD SPECIMENOrdering Facility: [facility] Address: [address] [place] [address] Result Comment: The [place] Diabetes Association (ADA) provides guidance for cutoff values for fasting glucose and random glucose. The ADA defines fasting as no caloric intake for at least 8 hours. Fasting plasma glucose results between 100 to 125 mg/dL indicate increased risk for diabetes (prediabetes).Fasting plasma glucose results greater than or equal to 126 mg/dL meet the criteria for diagnosis of diabetes. In the absence of unequivocal hyperglycemia, results should be confirmed by repeat testing. In a patient with classic symptoms of hyperglycemia or hyperglycemic crisis, random plasma glucose results greater than or equal to 200 mg/dL meet the criteria for diagnosis of diabetes.Reference: Standards of Medical Care in Diabetes 2016, [place] [employer]. Diabetes Care. 2016.39(Suppl 1). Performed By: #### 2 4323-8 ####[facility] MILLTOWNCLIA [id number] [place] [address] [place]#### 2532-0 ####[facility] LABCLIA [id number] [place] [address] [place] Potassium [Moles/Vol] 4.5 mmol/L Normal 3.7-5.1 [facility] Comment on above: Order Comment: Mila men Type: BLOOD SPECIMENOrdering Facility: [facility] Address: [address] [place] [address] Performed By: #### 2 4323-8 ####[facility] MILLTOWNCLIA [id number] [place] [address] [place]#### 2532-0 ####[facility] LABCLIA [id number] [place] [address] [place] Protein [Mass/Vol] 6.2 g/dL Low 6.3-8.0 [facility] Comment on above: Order Comment: Speci men Type: BLOOD SPECIMENOrdering Facility: [facility] Address: [address] [place] [address] Performed By: #### 2 4323-8 ####[facility] MILLTOWNCLIA [id number] [place] [address] [place]#### 2532-0 ####[facility] LABCLIA [id number] [place] [address] [place] Sodium [Moles/Vol] 139 mmol/L Normal 136-144 [facility] Comment on above: Order Comment: Speci men Type: BLOOD SPECIMENOrdering Facility: [facility] Address: [address] [place] [address] Performed By: #### 2 4323-8 ####[facility] MILLWNCLIA [id number] [place] [address] [place]#### 2532-0 ####[facility] LABCLIA [id number] [place] [address] [place] Urea nitrogen [Mass/Vol] 21 mg/dL Normal 9-24 [facility] Comment on above: Order Comment: Speci men Type: BLOOD SPECIMENOrdering Facility: [facility] Address: [address] [place] [address] Performed By: #### 2 4323-8 ####[facility] MILLTOWNCLIA [id number] [place] [address] [place]#### 2532-0 ####[facility] LABCLIA [id number] [place] [address] [place] IMMUNOFIXATION SCREEN, SERUM on 02-15-2024 INTERPRETATION (MPA) Normal [facility] Comment on above: Order Comment: Speci men Type: BLOOD SPECIMENOrdering Facility: [facility] Address: [address] [place] [address] Result Comment: Ther e is an atypical restricted band present in the IgG and kappa regions. The location of the IgG kappa band suggests the presence of daratumumab, although one cannot rule out the possibility that this band represents a disease-related monoclonal protein. If clinically required, specific testing for daratumumab may be ordered to confirm the presence of the drug in this patient.Poorly defined region of restricted mobility in IgA and lambda lanes. Pattern is less well defined or fainter than typically seen in monoclonal gammopathy. This could represent either an atypical presentation of polyclonal immunoglobulins or the presence of a low level IgA lambda monoclonal gammopathy. If clinically indicated, urine monoclonal protein analysis and serum free light chain measurements are recommended to evaluate further for monoclonal gammopathy. Clinical correlation is necessary. Performed By: #### I FESC ####[facility] LABCLIA [id number] [address] [place] MPA RESULT M protein is present. Abnormal No M protein is identified. [facility] Comment on above: Order Comment: Speci men Type: BLOOD SPECIMENOrdering Facility: [facility] Address: [address] [place] [address] Performed By: #### I FESC ####[facility] LABCLIA [id number] [address] STAFF REVIEW (MPA) Reviewed by Dr. Esme Rocha MD Normal [facility] Comment on above: Order Comment: Speci marino Type: BLOOD SPECIMENOrdering Facility: [facility] Address: [address] [place] [address] Performed By: #### I FESC ####[facility] LABIA [id number] [place] [address] [place] IMMUNOGLOBULINS,IGG,IGA,IGMo n 02-15-2024 IgA [Mass/Vol] 53 mg/dL Low 70-400 [facility] Comment on above: Order Comment: Speci men Type: BLOOD SPECIMENOrdering Facility: [facility] Address: [address] [place] [address] Performed By: #### S ERIMM ####[facility] LABCLIA [id number] [place] [address] [place] IgG [Mass/Vol] 421 mg/dL Low 700-1600 [facility] Comment on above: Order Comment: Speci men Type: BLOOD SPECIMENOrdering Facility: [facility] Address: [address] [place] [address] Performed By: #### S ERIMM ####[facility] LABCLIA [id number] [place] [address] [place] IgM [Mass/Vol] 28 mg/dL Low 40-230 [facility] Comment on above: Order Comment: Speci men Type: BLOOD SPECIMENOrdering Facility: [facility] Address: [address] [place] [address] Performed By: #### S ERIMM ####[facility] LABCLIA [id number] [place] [address] [place] KAPPA/RAMIREZ,FREE,SERon 2023 Immunoglobulin light chains.kappa.free (S) [Mass/Vol] 6.2 mg/L Normal 3.3-19.4 [facility] Comment on above: Order Comment: Speci men Type: BLOOD SPECIMENOrdering Facility: [facility] Address: [address] [place] [address] Result Comment: Rare ly, increased serum free light chains levels may not be detected or accurately quantified due to prozone phenomenon or in high viscosity samples using this immunoturbidimetric assay. Correlation with other laboratory results and clinical findings is recommended.The [place] Free Light Chain was performed using the Binding Site Optilite immunoturbidimetric method. Result obtained with different assay methods or kits cannot be used interchangeably. Performed By: #### K LFRS ####[facility] LABCLIA [id number] [place] [address] [place] Immunoglobulin light chains.kappa/Immunoglobuli n light chains.lambda (S) [Mass ratio] 1.07 Normal 0.26-1.65 [facility] Comment on above: Order Comment: Speci men Type: BLOOD SPECIMENOrdering Facility: [facility] Address: [address] [place] [address] Performed By: #### K LFRS ####[facility] LABCLIA [id number] [place] [address] [place] Immunoglobulin light chains.lambda.free [Mass/Vol] 5.8 mg/L Normal 5.7-26.3 [facility] Comment on above: Order Comment: Speci men Type: BLOOD SPECIMENOrdering Facility: [facility] Address: [address] [place] [address] Result Comment: Rare ly, increased serum free light chains levels may not be detected or accurately quantified due to prozone phenomenon or in high viscosity samples using this immunoturbidimetric assay. Correlation with other laboratory results and clinical findings is recommended.The Lambda Free Light Chain was performed using the Binding Site Optilite immunoturbidimetric method. Result obtained with different assay methods or kits cannot be used interchangeably. Performed By: #### K LFRS ####[facility] LABIA [id number] [place] [address] [place] LDH SerPl-cCncon 02-15-2024 LDH [Catalytic activity/Vol] 330 U/L High 135-225 [facility] Comment on above: Order Comment: Speci men Type: BLOOD SPECIMENOrdering Facility: [facility] Address: [address] [place] [address] Performed By: #### 2 4323-8 ####[facility] [id number] [place] [address] [place]#### 2532-0 ####[facility] LABCLIA [id number] [place] [address] [place] MONOCLONAL PROT UR W/INTERPo n 02-15-2024 STAFF REVIEW ([facility]) Reviewed by Dr. [facility]ocha [facility] Comment on above: Order Comment: Speci men Type: URINE SPECIMENOrdering Facility: [facility] Address: [address] [place] [address] Performed By: #### U RMPA ####[facility] LABIA [id number] [place] [address] [place] UMPA RESULT No M protein is identified. Normal No M protein is identified. [facility] Comment on above: Order Comment: Speci men Type: URINE SPECIMENOrdering Facility: [facility] Address: [address] [place] [address] Performed By: #### U RMPA ####[facility] [id number] [place] [address] [place] PROTEIN ELECTROPHORESIS SERU M (P)on 02-15-2024 Albumin [Mass/Vol] 3.61 g/dL Normal 3.43-5.41 [facility] Comment on above: Order Comment: Speci men Type: BLOOD SPECIMENOrdering Facility: [facility] Address: [address] [place] [address] Performed By: #### L [id number] ####[facility] [id number] [place] [address] [place] Alpha 1 globulin Elph [Mass/Vol] 0.31 g/dL Normal 0.18-0.43 [facility] Comment on above: Order Comment: Speci men Type: BLOOD SPECIMENOrdering Facility: [facility] Address: [address] [place] [address] Performed By: #### L [id number] ####[facility] LABIA [id number] [place] [address] [place] Alpha 2 globulin Elph [Mass/Vol] 0.84 g/dL Normal 0.42-0.98 [facility] Comment on above: Order Comment: Speci men Type: BLOOD SPECIMENOrdering Facility: [facility] Address: [address] [place], [place] [address] Performed By: #### L [id number] ####[facility] LABCLIA [id number] [place] [address] [place] Beta globulin Elph [Mass/Vol] 0.71 g/dL Normal 0.61-1.17 [facility] Comment on above: Order Comment: Speci men Type: BLOOD SPECIMENOrdering Facility: [facility] Address: [address] [place] [address] Performed By: #### L [id number] ####[facility] LABCLIA [id number] [place] [address] [place] Gamma globulin Elph [Mass/Vol] 0.33 g/dL Low 0.53-1.51 [facility] Comment on above: Order Comment: Speci men Type: BLOOD SPECIMENOrdering Facility: [facility] Address: [address] [place] [address] Performed By: #### L [id number] ####[facility] LABCLIA [id number] [address] STATES OF [facility] INTERPRETATION COMMENT FOR PROTEIN ELECTROPHORESIS See separate immunofixation report for characterization of monoclonal gammopathy. Normal [facility] Comment on above: Order Comment: Speci men Type: BLOOD SPECIMENOrdering Facility: [facility] Address: [address] [place] [address] Performed By: #### L [id number] ####[facility] LABIA [id number] [address] [place] M SPIKE CONCENTRATION 2 0.10 g/dL High <=0.00 C [facility] Comment on above: Order Comment: Speci men Type: BLOOD SPECIMENOrdering Facility: [facility] Address: [address] [place] [address] Performed By: #### L [id number] ####[facility] LABIA [id number] [address] [place] M-PROTEIN LOCATION Gamma Fraction 1 Normal [facility] Comment on above: Order Comment: Speci men Type: BLOOD SPECIMENOrdering Facility: [facility] Address: [address] [place] [id number] Performed By: #### L [id number] ####[facility] LABCLIA [id number] [place] [id number] [place] M-PROTEIN LOCATION 2 Gamma Fraction 2 Normal [facility] Comment on above: Order Comment: Speci men Type: BLOOD SPECIMENOrdering Facility: [facility] Address: [address] [place] [id number] Performed By: #### L [id number] ####[facility] [id number] [address] [place] Protein Fractions [Interp] An M protein is identified on protein electrophoresis. Abnormal No definitive M protein is identified on protein electrophor esis. [facility] Comment on above: Order Comment: Speci men Type: BLOOD SPECIMENOrdering Facility: [facility] Address: [address] [place], [place] [address] Performed By: #### L [id number] ####[facility] LABIA [id number] [address] [place] Protein.monoclonal Elph [Mass/Vol] 0.08 g/dL High <=0.00 [facility] Comment on above: Order Comment: Speci men Type: BLOOD SPECIMENOrdering Facility: [facility] Address: [address] [place] [id number] Performed By: #### L [id number] ####[facility] LABIA [id number] [place] [id number] [place] SPE STAFF REVIEW Reviewed by Dr. Esme Rocha MD Normal [facility] Comment on above: Order Comment: Speci men Type: BLOOD SPECIMENOrdering Facility: [facility] Address: [address] [place], [place] [id number] Performed By: #### L [id number] ####[facility] LABIA [id number] [place] [address] [place] Prot SerPl-mCncon 02-15-2024 Protein [Mass/Vol] 5.8 g/dL Low 6.3-8.0 [facility] Comment on above: Order Comment: Speci men Type: BLOOD SPECIMENOrdering Facility: [facility] Address: [address] [place] [address] Performed By: #### 2 885-2, 1951-04 ####[facility] LABIA [id number] [place] [address] [place] Prot Ur-mCncon 02-15-2024 Protein (U) [Mass/Vol] 7 mg/dL Normal 0-[address] [facility] Comment on above: Order Comment: Speci men Type: URINE SPECIMENOrdering Facility: [facility] Address: [address] [place] [address] Performed By: #### 2 888-6 ####[facility] [id number] [place] [address] [place] URINE PROTEIN ELECTROPHORESI S RANDOM (P)on 02-15-2024 Albumin Elph (U) [Mass fraction] 51.74 % Normal [facility] Comment on above: Order Comment: Speci men Type: URINE SPECIMENOrdering Facility: [facility] Address: [address] [place] [address] Performed By: #### L [id number] ####[facility] LABIA [id number] [place] [address] [place] Alpha 1 globulin Elph (U) [Mass fraction] 2.68 % Normal [facility] Comment on above: Order Comment: Speci men Type: URINE SPECIMENOrdering Facility: [facility] Address: [address] [place] [address] Performed By: #### L [id number] ####[facility] LABIA [id number] [place] [address] [place] Alpha 2 globulin Elph (U) [Mass fraction] 21.10 % Normal [facility] Comment on above: Order Comment: Speci men Type: URINE SPECIMENOrdering Facility: [facility] Address: [address] [place] [address] Performed By: #### L [id number] ####[facility] LABCLIA [id number] [place] [address] [place] Beta globulin Elph (U) [Mass fraction] 17.21 % Normal [facility] Comment on above: Order Comment: Speci men Type: URINE SPECIMENOrdering Facility: [facility] Address: [address] [place] [address] Performed By: #### L [id number] ####[facility] LABIA [id number] [place] [address] [place] Gamma globulin Elph (U) [Mass fraction] 7.27 % Normal [facility] Comment on above: Order Comment: Speci men Type: URINE SPECIMENOrdering Facility: [facility] Address: [address] [place] [address] Performed By: #### L [id number] ####[facility] LABIA [id number] [place] [address] [place] Protein Fractions Elph Shalom (U) [Interp] No definitive M protein is identified on protein electrophoresis. Normal No definitive M protein is identified on protein electrophor esis. [facility] Comment on above: Order Comment: Speci men Type: URINE SPECIMENOrdering Facility: [facility] Address: [address] [place] [address] Performed By: #### L [id number] ####[facility] LABIA [id number] [place] [address] [place] STAFF REVIEW (URINE ELECTRO) Reviewed by Dr. Danielle Rocha MD Normal [facility] Comment on above: Order Comment: Speci men Type: URINE SPECIMENOrdering Facility: [facility] Address: [address] [place] [address] Performed By: #### L [id number] ####[facility] LABCLIA [id number] KAREEN [place]ACARI[place] [address] [facility] Metabolic Prof ilon 02-02-2024 Albumin [Mass/Vol] 3.3 g/dL Normal 3.2-5.0 [facility] Comment on above: Performed By: #### L 500.4100, L502.0250, L500.4050, L501.9985 ####[facility] [address] [place], [address] Albumin/Globulin [Mass ratio] 1.1 {ratio} Normal 0.9-2.4 [facility] Comment on above: Performed By: #### L 500.4100, L502.0250, L500.4050, L501.9985 ####[facility] [address] [place], [address] ALK P 120 U/L High 45-117 [facility] Comment on above: Performed By: #### L 500.4100, L502.0250, L500.4050, L501.9985 ####[facility] [address] [place], [address] ALT [Catalytic activity/Vol] 28 U/L Normal 16-61 [facility] Comment on above: Performed By: #### L 500.4100, L502.0250, L500.4050, L501.9985 ####[facility] [address] [place], [address] AST [Catalytic activity/Vol] 16 U/L Normal 15-37 [facility] Comment on above: Performed By: #### L 500.4100, L502.0250, L500.4050, L501.9985 ####[facility] [address] [place], [address] Bilirubin [Mass/Vol] 0.50 mg/dL Normal 0.20-1.00 [facility] Comment on above: Result Comment: For patients on eltrombopag therapy, use of Dimension [place] TBIL is not recommended. Performed By: #### L 500.4100, L502.0250, L500.4050, L501.9985 ####[facility] [address] [place], [address] BUN/CRE 23.3 RATIO High 10-20 [facility] Comment on above: Performed By: #### L 500.4100, L502.0250, L500.4050, L501.9985 ####[facility] [address] [place], [address] CA,Total 8.9 mg/dL Normal 8.5-10.1 [facility] Comment on above: Performed By: #### L 500.4100, L502.0250, L500.4050, L501.9985 ####[facility] [address] [place], [address] Chloride [Moles/Vol] 105 mmol/L Normal 98-107 [facility] Comment on above: Performed By: #### L 500.4100, L502.0250, L500.4050, L501.9985 ####[facility] [address] [place], [address] CO2 [Moles/Vol] 30.0 mmol/L Normal 21.0-32.0 [facility] Comment on above: Performed By: #### L 500.4100, L502.0250, L500.4050, L501.9985 ####[facility] [address] [place], [address] Creatinine [Mass/Vol] 0.69 mg/dL Low 0.70-1.30 [facility] Comment on above: Result Comment: The validity of the calculated GFR GFRAA in patients over70 years has not been determined. Clinical correlation isessential. Performed By: #### L 500.4100, L502.0250, L500.4050, L501.9985 ####[facility] [address] [place], [address] EST GFR - AA 146 mL/min Normal >60 [facility] Comment on above: Result Comment: Afri can [place] GFR Calc Performed By: #### L 500.4100, L502.0250, L500.4050, L501.9985 ####[facility] [address] [place], [address] GAP 3 Low 5-15 [facility] Comment on above: Performed By: #### L 500.4100, L502.0250, L500.4050, L501.9985 ####[facility] [address] [place], [address] GFR/1.73 sq M.predicted among non-blacks MDRD (S/P/Bld) [Vol rate/Area] 120 mL/min/{1.73_m2} Normal >60 [facility] Comment on above: Result Comment: Non- GFR Calc Performed By: #### L 500.4100, L502.0250, L500.4050, L501.9985 ####[facility] [address] [place], [address] Globulin (S) [Mass/Vol] 3.1 g/dL Normal 2.2-4.2 [facility] Comment on above: Performed By: #### L 500.4100, L502.0250, L500.4050, L501.9985 ####[facility] [address] [place], [address] Glucose [Mass/Vol] 135 mg/dL High 74-106 [facility] Comment on above: Result Comment: Fast ing Glucose result greater than or equal to 126 mg/dLsuggests DIABETES MELLITUS per A.D.A. criteria. Performed By: #### L 500.4100, L502.0250, L500.4050, L501.9985 ####[facility] [address] [place], [address] Potassium [Moles/Vol] 4.1 mmol/L Normal 3.5-5.1 [facility] Comment on above: Performed By: #### L 500.4100, L502.0250, L500.4050, L501.9985 ####[facility] [address] [place], [address] Sodium [Moles/Vol] 138 mmol/L Normal 136-145 [facility] Comment on above: Performed By: #### L 500.4100, L502.0250, L500.4050, L501.9985 ####[facility] [address] [place], [address] T PROT 6.4 g/dL Normal 6.4-8.2 [facility] Comment on above: Performed By: #### L 500.4100, L502.0250, L500.4050, L501.9985 ####[facility] [address] [place], [address] Urea nitrogen [Mass/Vol] 16 mg/dL Normal 7-18 [facility] Comment on above: Performed By: #### L 500.4100, L502.0250, L500.4050, L501.9985 ####[facility] [address] [place], [address] Hemoglobin A1con 02-02-2024 HbA1c (Bld) [Mass fraction] 6.9 % High 3.8-5.6 [facility] Comment on above: Result Comment: Norm al < 5.7 % Prediabetic 5.7 - 6.4 % Diabetic >or= 6.5 % Please note range changes. Performed By: #### L 500.4100, L502.0250, L500.4050, L501.9985 ####[facility] [address] [place], [address] Lipid Profileon 02-02-2024 Cholesterol [Mass/Vol] 123 mg/dL Normal [address] [facility] Comment on above: Result Comment: <200 mg/dL Desirable 200-240 mg/dL Borderline >240 mg/dL High Risk Performed By: #### L 500.4100, L502.0250, L500.4050, L501.9985 ####[facility] [address] [place], [address] Cholesterol in HDL [Mass/Vol] 46 mg/dL Normal [facility] Comment on above: Result Comment: The drugs N-Acetylcysteine and Metamizole may falselydepress this assay. Reference Range HDL <40 mg/dL Low HDL Cholesterol HDL >or= 60 mg/dL High HDL Cholesterol Performed By: #### L 500.4100, L502.0250, L500.4050, L501.9985 ####[facility] [address] [place], [address] Cholesterol in LDL [Mass/Vol] 63 mg/dL Normal 0-130 [facility] Comment on above: Performed By: #### L 500.4100, L502.0250, L500.4050, L501.9985 ####[facility] [address] [place], [address] Cholesterol in VLDL [Mass/Vol] 14 mg/dL Normal 5-40 [facility] Comment on above: Performed By: #### L 500.4100, L502.0250, L500.4050, L501.9985 ####[facility] [address] [place], [address] Triglyceride [Mass/Vol] 69 mg/dL Normal [facility] Comment on above: Result Comment: The drugs N-Acetylcysteine and Metamizole may falselydepress this assay.Serum Triglycerides Reference Interval Normal <150 mg/dL Borderline high 150 - 199 mg/dL High 200 - 499 mg/dL Very High > or = 500 mg/dL Performed By: #### L 500.4100, L502.0250, L500.4050, L501.9985 ####[facility] [address] [place], [address] Microalb:Creat Ratio,Random URon 02-02-2024 Creatinine [Mass/Vol] 109.00 mg/dL Normal NO RAN GE EST. [facility] Comment on above: Performed By: #### L 500.4100, L502.0250, L500.4050, L501.9985 ####[facility] [address] [place], [address] MALB:CRE 68.8 mg/g CRE High <30 mg/g CRE [facility] Comment on above: Performed By: #### L 500.4100, L502.0250, L500.4050, L501.9985 ####[facility] [address] [place], [address] MICROALBUMIN,UR 75.0 mg/L Normal NO RANGE EST. [facility] Comment on above: Performed By: #### L 500.4100, L502.0250, L500.4050, L501.9985 ####[facility] [address] [place], [address] CNPNon 01-30-2024 CNPN Normal [facility] CNPNon 01-20-2024 CNPN Normal [facility] B2 Microglob SerPl-mCncon Nqjn-5-Ygszqkuaajvis [Mass/Vol] 2.3 ug/mL Normal <3.1 [facility] Comment on above: Order Comment: Speci men Type: BLOOD SPECIMENOrdering Facility: [facility] Address: [address] [place] [address] Result Comment: Beta -2 Microglobulin test is performed using the [employer] immunoturbidimetric method. Results obtained with different methods or kits cannot be used interchangeably. Performed By: #### 1 952-1, 2885-2 ####[facility] LABCLIA [id number] [facility] [place] [address] [place] CBC W Auto Differential pane l (Bld)on 01-18-2024 Basophils (Bld) [#/Vol] 0.06 10*3/uL Normal <0.11 [facility] Comment on above: Order Comment: Speci men Type: BLOOD SPECIMENOrdering Facility: [facility] Address: [address] [place] [address] Performed By: #### 5 7021-8 ####[facility] [id number] [place] [address] [place] Basophils/100 WBC (Bld) 0.5 % Normal [facility] Comment on above: Order Comment: Speci men Type: BLOOD SPECIMENOrdering Facility: [facility] Address: [address] [place] [address] Performed By: #### 5 7021-8 ####[facility] [id number] [place] [address] [place] Differential cell count method Nom (Bld) Auto Normal [facility] Comment on above: Order Comment: Speci men Type: BLOOD SPECIMENOrdering Facility: [facility] Address: [address] [place] [address] Performed By: #### 5 7021-8 ####[facility] [id number] [place] [address] [place] Eosinophils (Bld) [#/Vol] 0.10 10*3/uL Normal <0.46 [facility] Comment on above: Order Comment: Speci men Type: BLOOD SPECIMENOrdering Facility: [facility] Address: [address] [place] [address] Performed By: #### 5 7021-8 ####[facility] MILLWNCLIA [id number] [place] [address] [place] Eosinophils/100 WBC (Bld) 0.9 % Normal [facility] Comment on above: Order Comment: Speci men Type: BLOOD SPECIMENOrdering Facility: [facility] Address: [address] [place] [address] Performed By: #### 5 7021-8 ####[facility] [id number] [place] [address] [place] Erythrocyte distribution width (RBC) [Ratio] 15.9 % High 11.5-15.0 [facility] Comment on above: Order Comment: Speci men Type: BLOOD SPECIMENOrdering Facility: [facility] Address: [address] [place] [address] Performed By: #### 5 7021-8 ####[facility] [id number] [place] [address] [place] Hematocrit (Bld) [Volume fraction] 42.9 % Normal 39.0-51.0 [facility] Comment on above: Order Comment: Speci men Type: BLOOD SPECIMENOrdering Facility: [facility] Address: [address] [place] [address] Performed By: #### 5 7021-8 ####[facility] [id number] [place] [address] [place] Hemoglobin (Bld) [Mass/Vol] 13.5 g/dL Normal 13.0-17.0 [facility] Comment on above: Order Comment: Speci men Type: BLOOD SPECIMENOrdering Facility: [facility] Address: [address] [place] [address] Performed By: #### 5 7021-8 ####[facility] [id number] [place] [address] [place] Immature granulocytes (Bld) [#/Vol] 0.05 10*3/uL Normal <0.10 [facility] Comment on above: Order Comment: Speci men Type: BLOOD SPECIMENOrdering Facility: [facility] Address: [address] [place] [address] Performed By: #### 5 7021-8 ####[facility] [id number] [place] [address] [place] Immature granulocytes/100 WBC (Bld) 0.4 % Normal [facility] Comment on above: Order Comment: Speci men Type: BLOOD SPECIMENOrdering Facility: [facility] Address: [address] [place] [address] Performed By: #### 5 7021-8 ####[facility] [id number] [place] [address] [place] Lymphocytes (Bld) [#/Vol] 1.07 10*3/uL Normal 1.00-4.0 0 [facility] Comment on above: Order Comment: Speci men Type: BLOOD SPECIMENOrdering Facility: [facility] Address: [address] [place] [address] Performed By: #### 5 7021-8 ####[facility] [id number] [place] [address] [place] Lymphocytes/100 WBC (Bld) 9.3 % Normal [facility] Comment on above: Order Comment: Speci men Type: BLOOD SPECIMENOrdering Facility: [facility] Address: [address] [place] [address] Performed By: #### 5 7021-8 ####[facility] [id number] [place] [address] [place] MCH (RBC) [Entitic mass] 24.5 pg Low 26.0-34.0 [facility] Comment on above: Order Comment: Speci men Type: BLOOD SPECIMENOrdering Facility: [facility] Address: [address] [place] [address] Performed By: #### 5 7021-8 ####[facility] JENIFER [id number] [place] [address] [place] MCHC (RBC) [Mass/Vol] 31.5 g/dL Normal 30.5-36.0 [facility] Comment on above: Order Comment: Speci men Type: BLOOD SPECIMENOrdering Facility: [facility] Address: [address] [place] [address] Performed By: #### 5 7021-8 ####[facility]RONAKSUMIMarcio [id number] [place] [address] [place] MCV (RBC) [Entitic vol] 78.0 fL Low 80.0-100.0 [facility] Comment on above: Order Comment: Speci men Type: BLOOD SPECIMENOrdering Facility: [facility] Address: [address] [place] [address] Performed By: #### 5 7021-8 ####[facility]AKMarcio [id number] [place] [address] [place] Monocytes (Bld) [#/Vol] 0.93 10*3/uL High <0.87 [facility] Comment on above: Order Comment: Speci men Type: BLOOD SPECIMENOrdering Facility: [facility] Address: [address] [place] [address] Performed By: #### 5 7021-8 ####[facility]A [id number] [place] [address] [place] Monocytes/100 WBC (Bld) 8.1 % Normal [facility] Comment on above: Order Comment: Speci men Type: BLOOD SPECIMENOrdering Facility: [facility] Address: [address] [place] [address] Performed By: #### 5 7021-8 ####[facility] MILLWNCLIA [id number] [place] [address] [place] Neutrophils (Bld) [#/Vol] 9.34 10*3/uL High 1.45-7.5 0 [facility] Comment on above: Order Comment: Speci men Type: BLOOD SPECIMENOrdering Facility: [facility] Address: [address] [place] [address] Performed By: #### 5 7021-8 ####[facility]ITALLIA [id number] [place] [address] [place] Neutrophils/100 WBC (Bld) 80.8 % Normal [facility] Comment on above: Order Comment: Speci men Type: BLOOD SPECIMENOrdering Facility: [facility] Address: [address] [place] [address] Performed By: #### 5 7021-8 ####[facility]ITALLIA [id number] [place] [address] [place] Nucleated RBC (Bld) [#/Vol] 10*3/uL Normal <0.01 [facility] Comment on above: Order Comment: Speci men Type: BLOOD SPECIMENOrdering Facility: [facility] Address: [address] [place] [address] Performed By: #### 5 7021-8 ####[facility]ITALL[facility] [id number] [place] [address] [place] Nucleated RBC/100 WBC (Bld) [Ratio] 0.0 /100 WBC Normal [facility] Comment on above: Order Comment: Speci men Type: BLOOD SPECIMENOrdering Facility: [facility] Address: [address] [place] [address] Performed By: #### 5 7021-8 ####[facility]IALNCLIA [id number] [place] [address] [place] Platelet mean volume (Bld) [Entitic vol] 9.4 fL Normal 9.0-12.7 [facility] Comment on above: Order Comment: Speci men Type: BLOOD SPECIMENOrdering Facility: [facility] Address: [address] [place] [address] Performed By: #### 5 7021-8 ####[facility]ORIALNCSUMIA [id number] [place] [address] [place] Platelets (Bld) [#/Vol] 359 10*3/uL Normal 150-400 [facility] Comment on above: Order Comment: Speci men Type: BLOOD SPECIMENOrdering Facility: [facility] Address: [address] [place] [address] Performed By: #### 5 7021-8 ####[facility]IAL[facility]CL[facility] [id number] [place] [address] [place] RBC (Bld) [#/Vol] 5.50 10*6/uL Normal 4.20-6.00 [facility] Comment on above: Order Comment: Speci men Type: BLOOD SPECIMENOrdering Facility: [facility] Address: [address] [place] [address] Performed By: #### 5 7021-8 ####[facility]IAL[facility]CL[facility] [id number] [place] [address] [place] WBC (Bld) [#/Vol] 11.55 10*3/uL High 3.70-11.00 [facility] Comment on above: Order Comment: Speci men Type: BLOOD SPECIMENOrdering Facility: [facility] Address: [address] [place] [address] Performed By: #### 5 7021-8 ####[facility]CL[facility] [id number] [place] [address] [place] CNOVSPon 09-25-2024 CNOVSP Normal [facility] Comprehensive metabolic 2000 panelon 01-18-2024 Albumin [Mass/Vol] 4.1 g/dL Normal 3.9-4.9 [facility] Comment on above: Order Comment: Speci men Type: BLOOD SPECIMENOrdering Facility: [facility] Address: [address] [place] [address] Performed By: #### 2 4323-8, 2532-0 ####[facility] MILLWRONAKLIA [id number] [place] [address] [place] ALP [Catalytic activity/Vol] 123 U/L High 38-113 [facility] Comment on above: Order Comment: Speci men Type: BLOOD SPECIMENOrdering Facility: [facility] Address: [address] [place] [address] Performed By: #### 2 4323-8, 2-0 ####[facility] [id number] [place] [address] [place] ALT [Catalytic activity/Vol] 16 U/L Normal 10-54 [facility] Comment on above: Order Comment: Speci men Type: BLOOD SPECIMENOrdering Facility: [facility] Address: [address] [place] [address] Performed By: #### 2 4323-8, 2-0 ####[facility] [id number] [place] [address] [place] Anion gap [Moles/Vol] 10 mmol/L Normal 8-15 [facility] Comment on above: Order Comment: Speci men Type: BLOOD SPECIMENOrdering Facility: [facility] Address: [address] [place] [address] Performed By: #### 2 4323-8, 2532-0 ####[facility]CL[facility] [id number] [place] [address] [place] AST [Catalytic activity/Vol] 11 U/L Low 14-40 [facility] Comment on above: Order Comment: Speci men Type: BLOOD SPECIMENOrdering Facility: [facility] Address: [address] [place] [address] Performed By: #### 2 4323-8, 2531-0 ####[facility] [id number] [place] [address] [place] Bilirubin [Mass/Vol] 0.5 mg/dL Normal 0.2-1.3 [facility] Comment on above: Order Comment: Speci men Type: BLOOD SPECIMENOrdering Facility: [facility] Address: [address] [place] [address] Performed By: #### 2 4323-8, 0 ####[facility] [id number] [place] [address] [place] Calcium [Mass/Vol] 8.8 mg/dL Normal 8.5-10.2 [facility] Comment on above: Order Comment: Speci men Type: BLOOD SPECIMENOrdering Facility: [facility] Address: [address] [place] [address] Performed By: #### 2 4323-8, 0 ####[facility] [id number] [place] [address] [place] Chloride [Moles/Vol] 103 mmol/L Normal 98-107 [facility] Comment on above: Order Comment: Speci men Type: BLOOD SPECIMENOrdering Facility: [facility] Address: [address] [place] [address] Performed By: #### 2 4323-8, 2531-0 ####[facility] [id number] [place] [address] [place] CO2 [Moles/Vol] 24 mmol/L Normal 22-30 [facility] Comment on above: Order Comment: Speci men Type: BLOOD SPECIMENOrdering Facility: [facility] Address: [address] [place] [address] Performed By: #### 2 4323-8, 2531-0 ####[facility] [id number] [place] [address] [place] Creatinine [Mass/Vol] 0.79 mg/dL Normal 0.73-1.22 [facility] Comment on above: Order Comment: Speci men Type: BLOOD SPECIMENOrdering Facility: [facility] Address: [address] [place] [address] Performed By: #### 2 4323-8, 2531-0 ####[facility] [id number] [place] [address] [place] Creatinine and Glomerular filtration rate.predicted panel (S/P/Bld) 95 mL/min/1.73m??? Normal >=60 [facility] Comment on above: Order Comment: Citlalyi men Type: BLOOD SPECIMENOrdering Facility: [facility] Address: [address] [place] [address] Result Comment: Kimberley mated Glomerular Filtration Rate (eGFR) is calculated using the 2020 CKD-EPI creatinine equation. This equation utilizes serum creatinine, sex, and age as parameters. The creatinine assay has traceable calibration to isotope dilution-mass spectrometry. Refer to KDIGO guidelines for clinical interpretation. In patients with unstable renal function, e.g. those with acute kidney injury, the eGFR may not accurately reflect actual GFR. Performed By: #### 2 4323-8, 0 ####[facility] [id number] [place] [address] [place] Glucose [Mass/Vol] 163 mg/dL High 74-99 [facility] Comment on above: Order Comment: Citlalyi men Type: BLOOD SPECIMENOrdering Facility: [facility] Address: [address] [place] [address] Result Comment: The [place] Diabetes Association (ADA) provides guidance for cutoff values for fasting glucose and random glucose. The ADA defines fasting as no caloric intake for at least 8 hours. Fasting plasma glucose results between 100 to 125 mg/dL indicate increased risk for diabetes (prediabetes).Fasting plasma glucose results greater than or equal to 126 mg/dL meet the criteria for diagnosis of diabetes. In the absence of unequivocal hyperglycemia, results should be confirmed by repeat testing. In a patient with classic symptoms of hyperglycemia or hyperglycemic crisis, random plasma glucose results greater than or equal to 200 mg/dL meet the criteria for diagnosis of diabetes.Reference: Standards of Medical Care in Diabetes 2016, [place] [employer]. Diabetes Care. 2016.39(Suppl 1). Performed By: #### 2 43238, 0 ####[facility] [id number] [place] [address] [place] Potassium [Moles/Vol] 4.2 mmol/L Normal 3.7-5.1 [facility] Comment on above: Order Comment: Speci men Type: BLOOD SPECIMENOrdering Facility: [facility] Address: [address] [place] [address] Performed By: #### 2 4328, 0 ####[facility] [id number] [place] [address] [place] Protein [Mass/Vol] 6.4 g/dL Normal 6.3-8.0 [facility] Comment on above: Order Comment: Speci men Type: BLOOD SPECIMENOrdering Facility: [facility] Address: [address] [place] [address] Performed By: #### 2 4328, 0 ####[facility] [id number] [place] [address] [place] Sodium [Moles/Vol] 137 mmol/L Normal 136-144 [facility] Comment on above: Order Comment: Speci men Type: BLOOD SPECIMENOrdering Facility: [facility] Address: [address] [place] [address] Performed By: #### 2 4328, 2532-0 ####[facility] YANDELEATONNCLIA [id number] [place] [address] [place] Urea nitrogen [Mass/Vol] 19 mg/dL Normal 9-24 [facility] Comment on above: Order Comment: Speci men Type: BLOOD SPECIMENOrdering Facility: [facility] Address: [address] [place] [address] Performed By: #### 2 4323-8, 2531-0 ####[facility] [id number] [address] [place] IMMUNOFIXATION SCREEN, SERUM on 01-18-2024 INTERPRETATION (MPA) Normal [facility] Comment on above: Order Comment: Speci men Type: BLOOD SPECIMENOrdering Facility: [facility] Address: [address] [place] [address] Result Comment: Rica on of restricted mobility in IgA rene without matching region in light chain lanes, consistent with an IgA containing monoclonal gammopathy. The absence of a visible light chain could be due to lack of analytical sensitivity or could indicate that the patient has heavy chain disease, a rare form of monoclonal gammopathy. Suggest urine monoclonal protein analysis and/or serum free light chain measurement to further evaluate for a possible monoclonal gammopathy.There is an atypical restricted band present in the IgG and kappa regions. The location of the IgG kappa band suggests the presence of daratumumab, although one cannot rule out the possibility that this band represents a disease-related monoclonal protein. If clinically required, specific testing for daratumumab may be ordered to confirm the presence of the drug in this patient. Performed By: #### I FESC ####[facility] LABCLIA [id number] [address] OF [facility] MPA RESULT M protein is present. Abnormal No M protein is identified. [facility] Comment on above: Order Comment: Speci men Type: BLOOD SPECIMENOrdering Facility: [facility] Address: [address] [place] [address] Performed By: #### I FESC ####[facility] LABCLIA [id number] [place] [address] [place] STAFF REVIEW (MPA) Reviewed by David Moore M.D. Normal [facility] Comment on above: Order Comment: Speci men Type: BLOOD SPECIMENOrdering Facility: [facility] Address: [address] [place] [address] Performed By: #### I FES ####[facility] LABCLIA [id number] [place] [address] [place] IMMUNOGLOBULINS,IGG,IGA,IGMo n 01-18-2024 IgA [Mass/Vol] 43 mg/dL Low 70-400 [facility] Comment on above: Order Comment: Speci men Type: BLOOD SPECIMENOrdering Facility: [facility] Address: [address] [place] [address] Performed By: #### S ERIMM ####[facility] LABIA [id number] [place] [address] [place] IgG [Mass/Vol] 414 mg/dL Low 700-1600 [facility] Comment on above: Order Comment: Speci men Type: BLOOD SPECIMENOrdering Facility: [facility] Address: [address] [place] [address] Performed By: #### S ERIMM ####[facility] LABIA [id number] [place] [address] [place] IgM [Mass/Vol] 21 mg/dL Low 40-230 [facility] Comment on above: Order Comment: Speci men Type: BLOOD SPECIMENOrdering Facility: [facility] Address: [address] [place] [address] Performed By: #### S ERIMM ####[facility] LABIA [id number] [place] [address] [place] KAPPA/RAMIREZ,FREE,SERon 2023 Immunoglobulin light chains.kappa.free (S) [Mass/Vol] 5.0 mg/L Normal 3.3-19.4 [facility] Comment on above: Order Comment: Speci men Type: BLOOD SPECIMENOrdering Facility: [facility] Address: [address] [place] [address] Result Comment: Rare ly, increased serum free light chains levels may not be detected or accurately quantified due to prozone phenomenon or in high viscosity samples using this immunoturbidimetric assay. Correlation with other laboratory results and clinical findings is recommended.The [place] Free Light Chain was performed using the Binding Site [employer] immunoturbidimetric method. Result obtained with different assay methods or kits cannot be used interchangeably. Performed By: #### K LFRS ####[facility] LABCLIA [id number] [place] [address] [place] Immunoglobulin light chains.kappa/Immunoglobuli n light chains.lambda (S) [Mass ratio] 1.43 Normal 0.26-1.65 [facility] Comment on above: Order Comment: Speci men Type: BLOOD SPECIMENOrdering Facility: [facility] Address: [address] [place] [address] Performed By: #### K LFRS ####[facility] LABCLIA [id number] [place] [address] [place] Immunoglobulin light chains.lambda.free [Mass/Vol] 3.5 mg/L Low 5.7-26.3 [facility] Comment on above: Order Comment: Speci men Type: BLOOD SPECIMENOrdering Facility: [facility] Address: [address] [place] [address] Result Comment: Rare ly, increased serum free light chains levels may not be detected or accurately quantified due to prozone phenomenon or in high viscosity samples using this immunoturbidimetric assay. Correlation with other laboratory results and clinical findings is recommended.The Lambda Free Light Chain was performed using the Binding Site [employer] immunoturbidimetric method. Result obtained with different assay methods or kits cannot be used interchangeably. Performed By: #### K LFRS ####[facility] LABCLIA [id number] [place] [address] [place] LDH SerPl-cCncon 01-18-2024 LDH [Catalytic activity/Vol] 178 U/L Normal 135-225 [facility] Comment on above: Order Comment: Speci men Type: BLOOD SPECIMENOrdering Facility: [facility] Address: [address] [place] [address] Performed By: #### 2 4323-8, 2532-0 ####[facility] [id number] [place] [address] [place] MONOCLONAL PROT UR W/INTERPo n 01-18-2024 STAFF REVIEW (UMPA) Reviewed by David Moore M.D. Normal [facility] Comment on above: Order Comment: Speci men Type: URINE SPECIMENOrdering Facility: [facility] Address: [address] [place] [address] Performed By: #### U RMPA ####[facility] LABCLIA [id number] [place] [address] [place] UMPA RESULT No M protein is identified. Normal No M protein is identified. [facility] Comment on above: Order Comment: Speci men Type: URINE SPECIMENOrdering Facility: [facility] Address: [address] [place] [address] Performed By: #### U RMPA ####[facility] LABCLIA [id number] [place] [address] [place] PROTEIN ELECTROPHORESIS SERU M (P)on 01-18-2024 Albumin [Mass/Vol] 3.78 g/dL Normal 3.43-5.41 [facility] Comment on above: Order Comment: Speci men Type: BLOOD SPECIMENOrdering Facility: [facility] Address: [address] [place] [address] Performed By: #### L [id number] ####[facility] LABCLIA [id number] [place] [address] [place] Alpha 1 globulin Elph [Mass/Vol] 0.32 g/dL Normal 0.18-0.43 [facility] Comment on above: Order Comment: Speci men Type: BLOOD SPECIMENOrdering Facility: [facility] Address: [address] [place] [address] Performed By: #### L [id number] ####[facility] LABIA [id number] [place] [address] [place] Alpha 2 globulin Elph [Mass/Vol] 0.88 g/dL Normal 0.42-0.98 [facility] Comment on above: Order Comment: Speci men Type: BLOOD SPECIMENOrdering Facility: [facility] Address: [address] [place] [address] Performed By: #### L [id number] ####[facility] LABIA [id number] [place] [address] [place] Beta globulin Elph [Mass/Vol] 0.70 g/dL Normal 0.61-1.17 [facility] Comment on above: Order Comment: Speci men Type: BLOOD SPECIMENOrdering Facility: [facility] Address: [address] [place] [address] Performed By: #### L [id number] ####[facility] LABIA [id number] [place] [address] [place] Gamma globulin Elph [Mass/Vol] 0.33 g/dL Low 0.53-1.51 [facility] Comment on above: Order Comment: Speci men Type: BLOOD SPECIMENOrdering Facility: [facility] Address: [address] [place] [address] Performed By: #### L [id number] ####[facility] LABIA [id number] [place] [address] [place] INTERPRETATION COMMENT FOR PROTEIN ELECTROPHORESIS Normal [facility] Comment on above: Order Comment: Speci men Type: BLOOD SPECIMENOrdering Facility: [facility] Address: [address] [place] [address] Performed By: #### L [id number] ####[facility] LABCLIA [id number] [place] [address] [place] M-PROTEIN LOCATION Normal [facility] Comment on above: Order Comment: Speci men Type: BLOOD SPECIMENOrdering Facility: [facility] Address: [address] [place] [address] Result Comment: Not Applicable. Performed By: #### L [id number] ####[facility] LABIA [id number] [place] [address] [place] Protein Fractions [Interp] An atypical r egion of restricted mobility is identified on protein electrophoresis. Abnormal No definitive M protein is identified on protein electrophor esis. [facility] Comment on above: Order Comment: Speci men Type: BLOOD SPECIMENOrdering Facility: [facility] Address: [address] [place] [address] Performed By: #### L [id number] ####[facility] LABIA [id number] [place] [address] [place] Protein.monoclonal Elph [Mass/Vol] 0.00 g/dL Normal <=0.00 [facility] Comment on above: Order Comment: Speci men Type: BLOOD SPECIMENOrdering Facility: [facility] Address: [address] [place] [address] Performed By: #### L [id number] ####[facility] LABIA [id number] [place] [address] [place] SPE STAFF REVIEW Reviewed by David Moore M.D. Normal [facility] Comment on above: Order Comment: Speci men Type: BLOOD SPECIMENOrdering Facility: [facility] Address: [address] [place] [address] Performed By: #### L [id number] ####[facility] LABIA [id number] [place] [address] [place] Prot SerPl-mCncon 09-25-2024 Protein [Mass/Vol] 6.0 g/dL Low 6.3-8.0 [facility] Comment on above: Order Comment: Speci men Type: BLOOD SPECIMENOrdering Facility: [facility] Address: [address] [place] [address] Performed By: #### 1 952-1, 2885-2 ####[facility] LABIA [id number] [place] [address] [place] Prot Ur-mCncon 01-18-2024 Protein (U) [Mass/Vol] 9 mg/dL Normal 0-[address] [facility] Comment on above: Order Comment: Speci men Type: URINE SPECIMENOrdering Facility: [facility] Address: [address] [place] [address] Performed By: #### 2 888-6 ####[facility]ITAL[facility] [id number] [place] [address] [place] URINE PROTEIN ELECTROPHORESI S RANDOM (P)on 01-18-2024 Albumin Elph (U) [Mass fraction] 55.13 % Normal [facility] Comment on above: Order Comment: Speci men Type: URINE SPECIMENOrdering Facility: [facility] Address: [address] [place] [address] Performed By: #### L [id number] ####[facility] LABIA [id number] [place] [address] [place] Alpha 1 globulin Elph (U) [Mass fraction] 4.98 % Normal [facility] Comment on above: Order Comment: Speci men Type: URINE SPECIMENOrdering Facility: [facility] Address: [address] [place] [address] Performed By: #### L [id number] ####[facility] LABIA [id number] [place] [address] [place] Alpha 2 globulin Elph (U) [Mass fraction] 17.42 % Normal [facility] Comment on above: Order Comment: Speci men Type: URINE SPECIMENOrdering Facility: [facility] Address: [address] [place] [address] Performed By: #### L [id number] ####[facility] LABCLIA [id number] [place] [id number] [place] Beta globulin Elph (U) [Mass fraction] 16.35 % Normal [facility] Comment on above: Order Comment: Speci men Type: URINE SPECIMENOrdering Facility: [facility] Address: [address] [place] [address] Performed By: #### L [id number] ####[facility] LABCLIA [id number] [address] [place] Gamma globulin Elph (U) [Mass fraction] 6.12 % Normal [facility] Comment on above: Order Comment: Speci men Type: URINE SPECIMENOrdering Facility: [facility] Address: [address] [place] [address] Performed By: #### L [id number] ####[facility] LABCLIA [id number] [place] [address] [place] INTERPRETATION COMMENT FOR PROTEIN ELECTROPHORESIS Normal [facility] Comment on above: Order Comment: Speci men Type: URINE SPECIMENOrdering Facility: [facility] Address: [address] [place] [address] Performed By: #### L [id number] ####[facility] LABCLIA [id number] [place] [id number] [place] Protein Fractions Elph Shalom (U) [Interp] No definitive M protein is identified on protein electrophoresis. Normal No definitive M protein is identified on protein electrophor esis. [facility] Comment on above: Order Comment: Speci men Type: URINE SPECIMENOrdering Facility: [facility] Address: [address] [place], [place] [address] Performed By: #### L [id number] ####[facility] LABCLIA [id number] [place] [id number] [place] STAFF REVIEW (URINE ELECTRO) Reviewed by David Moore M.D. Normal [facility] Comment on above: Order Comment: Speci men Type: URINE SPECIMENOrdering Facility: [facility] Address: [address] [place] [address] Performed By: #### L [id number] ####[facility]ITAL[facility] [id number] [place] [id number] [place] CNPNon 01-05-2024 CNPN Normal [facility] B2 Microglob SerPl-mCncon Lewt-1-Urlgvyinbdgis [Mass/Vol] 1.7 ug/mL Normal <3.1 [facility] Comment on above: Order Comment: Speci men Type: BLOOD SPECIMENOrdering Facility: [facility] Address: [address] [place] [address] Result Comment: Beta -2 Microglobulin test is performed using the [employer] immunoturbidimetric method. Results obtained with different methods or kits cannot be used interchangeably. Performed By: #### 1 952-1, 2885-2 ####[facility] [id number] [place] [id number] [place] CBC W Auto Differential pane l (Bld)on 12-21-2023 Basophils (Bld) [#/Vol] 0.05 10*3/uL Normal <0.11 [facility] Comment on above: Order Comment: Speci men Type: BLOOD SPECIMENOrdering Facility: [facility] Address: [address] [place] [address] Performed By: #### 5 7021-8 ####[facility] HOSPITALMarcio [id number] [place] [address] [place] Basophils/100 WBC (Bld) 0.3 % Normal [facility] Comment on above: Order Comment: Speci men Type: BLOOD SPECIMENOrdering Facility: [facility] Address: [address] [place] [address] Performed By: #### 5 7021-8 ####[facility]IALNCA [id number] [place] [address] [place] Differential cell count method Nom (Bld) Auto Normal [facility] Comment on above: Order Comment: Speci men Type: BLOOD SPECIMENOrdering Facility: [facility] Address: [address] [place] [address] Performed By: #### 5 7021-8 ####[facility] [id number] [place] [address] [place] Eosinophils (Bld) [#/Vol] 0.14 10*3/uL Normal <0.46 [facility] Comment on above: Order Comment: Speci men Type: BLOOD SPECIMENOrdering Facility: [facility] Address: [address] [place] [address] Performed By: #### 5 7021-8 ####[facility]IALNCLIA [id number] [place] [address] [place] Eosinophils/100 WBC (Bld) 0.9 % Normal [facility] Comment on above: Order Comment: Speci men Type: BLOOD SPECIMENOrdering Facility: [facility] Address: [address] [place] [address] Performed By: #### 5 7021-8 ####[facility]IALNCLI [id number] [place] [address] [place] Erythrocyte distribution width (RBC) [Ratio] 15.8 % High 11.5-15.0 [facility] Comment on above: Order Comment: Speci men Type: BLOOD SPECIMENOrdering Facility: [facility] Address: [address] [place] [address] Performed By: #### 5 7021-8 ####[facility]IALNCL[facility] [id number] [place] [address] [place] Hematocrit (Bld) [Volume fraction] 43.6 % Normal 39.0-51.0 [facility] Comment on above: Order Comment: Speci men Type: BLOOD SPECIMENOrdering Facility: [facility] Address: [address] [place] [address] Performed By: #### 5 7021-8 ####[facility] YANDELEATONELSI [id number] [place] [address] [place] Hemoglobin (Bld) [Mass/Vol] 13.5 g/dL Normal 13.0-17.0 [facility] Comment on above: Order Comment: Speci men Type: BLOOD SPECIMENOrdering Facility: [facility] Address: [address] [place] [address] Performed By: #### 5 7021-8 ####[facility]IALEL[facility] [id number] [place] [address] [place] Immature granulocytes (Bld) [#/Vol] 0.06 10*3/uL Normal <0.10 [facility] Comment on above: Order Comment: Speci men Type: BLOOD SPECIMENOrdering Facility: [facility] Address: [address] [place] [address] Performed By: #### 5 7021-8 ####[facility] MEMORIALELSI [id number] [place] [address] [place] Immature granulocytes/100 WBC (Bld) 0.4 % Normal [facility] Comment on above: Order Comment: Speci men Type: BLOOD SPECIMENOrdering Facility: [facility] Address: [address] [place] [address] Performed By: #### 5 7021-8 ####[facility] MEMORIALNCLIA [id number] [place] [address] [place] Lymphocytes (Bld) [#/Vol] 1.36 10*3/uL Normal 1.00-4.0 0 [facility] Comment on above: Order Comment: Speci men Type: BLOOD SPECIMENOrdering Facility: [facility] Address: [address] [place] [address] Performed By: #### 5 7021-8 ####[facility] [id number] [place] [address] [place] Lymphocytes/100 WBC (Bld) 9.1 % Normal [facility] Comment on above: Order Comment: Speci men Type: BLOOD SPECIMENOrdering Facility: [facility] Address: [address] [place] [address] Performed By: #### 5 7021-8 ####[facility] [id number] [place] [address] [place] MCH (RBC) [Entitic mass] 24.7 pg Low 26.0-34.0 [facility] Comment on above: Order Comment: Speci men Type: BLOOD SPECIMENOrdering Facility: [facility] Address: [address] [place] [address] Performed By: #### 5 7021-8 ####[facility] [id number] [place] [address] [place] MCHC (RBC) [Mass/Vol] 31.0 g/dL Normal 30.5-36.0 [facility] Comment on above: Order Comment: Speci men Type: BLOOD SPECIMENOrdering Facility: [facility] Address: [address] [place] [address] Performed By: #### 5 7021-8 ####[facility] MEMORIALNCLI [id number] [place] [address] [place] MCV (RBC) [Entitic vol] 79.7 fL Low 80.0-100.0 [facility] Comment on above: Order Comment: Speci men Type: BLOOD SPECIMENOrdering Facility: [facility] Address: [address] [place] [address] Performed By: #### 5 7021-8 ####[facility] MILLTOWNCLIA [id number] [place] [address] [place] Monocytes (Bld) [#/Vol] 1.07 10*3/uL High <0.87 [facility] Comment on above: Order Comment: Speci men Type: BLOOD SPECIMENOrdering Facility: [facility] Address: [address] [place] [address] Performed By: #### 5 7021-8 ####[facility] MILLWNCLIA [id number] [place] [address] [place] Monocytes/100 WBC (Bld) 7.2 % Normal [facility] Comment on above: Order Comment: Speci men Type: BLOOD SPECIMENOrdering Facility: [facility] Address: [address] [place] [address] Performed By: #### 5 7021-8 ####[facility]IALNCLIA [id number] [place] [address] [place] Neutrophils (Bld) [#/Vol] 12.23 10*3/uL High 1.45-7. 50 [facility] Comment on above: Order Comment: Speci men Type: BLOOD SPECIMENOrdering Facility: [facility] Address: [address] [place] [address] Performed By: #### 5 7021-8 ####[facility] MILLTOWNCLIA [id number] [place] [address] [place] Neutrophils/100 WBC (Bld) 82.1 % Normal [facility] Comment on above: Order Comment: Speci men Type: BLOOD SPECIMENOrdering Facility: [facility] Address: [address] [place] [address] Performed By: #### 5 7021-8 ####[facility] MILLTOWNCLIA [id number] [place] [address] [place] Nucleated RBC (Bld) [#/Vol] 10*3/uL Normal <0.01 [facility] Comment on above: Order Comment: Speci men Type: BLOOD SPECIMENOrdering Facility: [facility] Address: [address] [place] [address] Performed By: #### 5 7021-8 ####[facility] MEMORIALRONAKSUMI [id number] [place] [address] [place] Nucleated RBC/100 WBC (Bld) [Ratio] 0.0 /100 WBC Normal [facility] Comment on above: Order Comment: Speci men Type: BLOOD SPECIMENOrdering Facility: [facility] Address: [address] [place] [address] Performed By: #### 5 7021-8 ####[facility] MEMORIALNCFARAZ [id number] [place] [address] [place] Platelet mean volume (Bld) [Entitic vol] 9.7 fL Normal 9.0-12.7 [facility] Comment on above: Order Comment: Speci men Type: BLOOD SPECIMENOrdering Facility: [facility] Address: [address] [place] [address] Performed By: #### 5 7021-8 ####[facility]IALELSI [id number] [place] [address] [place] Platelets (Bld) [#/Vol] 356 10*3/uL Normal 150-400 [facility] Comment on above: Order Comment: Speci men Type: BLOOD SPECIMENOrdering Facility: [facility] Address: [address] [place] [address] Performed By: #### 5 7021-8 ####[facility] MEMORIALNCLIA [id number] [place] [address] [place] RBC (Bld) [#/Vol] 5.47 10*6/uL Normal 4.20-6.00 [facility] Comment on above: Order Comment: Speci men Type: BLOOD SPECIMENOrdering Facility: [facility] Address: [address] [place] [address] Performed By: #### 5 7021-8 ####[facility] MEMORIALNCLIA [id number] [place] [address] [place] WBC (Bld) [#/Vol] 14.91 10*3/uL High 3.70-11.00 [facility] Comment on above: Order Comment: Speci men Type: BLOOD SPECIMENOrdering Facility: [facility] Address: [address] [place] [address] Performed By: #### 5 7021-8 ####[facility] [id number] [place] [address] [place] CNOVSPon 12-21-2023 CNOVSP Normal [facility] Comprehensive metabolic 2000 panelon 12-21-2023 Albumin [Mass/Vol] 4.2 g/dL Normal 3.9-4.9 [facility] Comment on above: Order Comment: Speci men Type: BLOOD SPECIMENOrdering Facility: [facility] Address: [address] [place] [address] Performed By: #### 2 4323-8, 2532-0 ####[facility] [id number] [place] [address] [place] ALP [Catalytic activity/Vol] 122 U/L High 38-113 [facility] Comment on above: Order Comment: Speci men Type: BLOOD SPECIMENOrdering Facility: [facility] Address: [address] [place] [address] Performed By: #### 2 4323-8, 2532-0 ####[facility] MEMORIALNCLIA [id number] [place] [address] [place] ALT [Catalytic activity/Vol] 15 U/L Normal 10-54 [facility] Comment on above: Order Comment: Speci men Type: BLOOD SPECIMENOrdering Facility: [facility] Address: [address] [place] [address] Performed By: #### 2 4323-8, 2531-0 ####[facility] [id number] [place] [address] [place] Anion gap [Moles/Vol] 11 mmol/L Normal 8-15 [facility] Comment on above: Order Comment: Speci men Type: BLOOD SPECIMENOrdering Facility: [facility] Address: [address] [place] [address] Performed By: #### 2 4323-8, 2531-0 ####[facility] [id number] [place] [address] [place] AST [Catalytic activity/Vol] 10 U/L Low 14-40 [facility] Comment on above: Order Comment: Speci men Type: BLOOD SPECIMENOrdering Facility: [facility] Address: [address] [place] [address] Performed By: #### 2 4323-8, 0 ####[facility] [id number] [place] [address] [place] Bilirubin [Mass/Vol] 0.3 mg/dL Normal 0.2-1.3 [facility] Comment on above: Order Comment: Speci men Type: BLOOD SPECIMENOrdering Facility: [facility] Address: [address] [place] [address] Performed By: #### 2 4323-8, 2531-0 ####[facility] [id number] [place] [address] [place] Calcium [Mass/Vol] 9.6 mg/dL Normal 8.5-10.2 [facility] Comment on above: Order Comment: Speci men Type: BLOOD SPECIMENOrdering Facility: [facility] Address: [address] [place] [address] Performed By: #### 2 4323-8, 2531-0 ####[facility] YANDELJaylenRONAKFARAZ [id number] [place] [address] [place] Chloride [Moles/Vol] 103 mmol/L Normal 98-107 [facility] Comment on above: Order Comment: Speci men Type: BLOOD SPECIMENOrdering Facility: [facility] Address: [address] [place] [address] Performed By: #### 2 4323-8, 2531-0 ####[facility] MEMORIALRONAKMarcio [id number] [place] [address] [place] CO2 [Moles/Vol] 24 mmol/L Normal 22-30 [facility] Comment on above: Order Comment: Speci men Type: BLOOD SPECIMENOrdering Facility: [facility] Address: [address] [place] [address] Performed By: #### 2 4323-8, 2531-0 ####[facility] MEMORIALMARCEA [id number] [place] [address] [place] Creatinine [Mass/Vol] 0.77 mg/dL Normal 0.73-1.22 [facility] Comment on above: Order Comment: Speci men Type: BLOOD SPECIMENOrdering Facility: [facility] Address: [address] [place] [address] Performed By: #### 2 4323-8, 2-0 ####[facility] MEMORIALMARCEA [id number] [place] [address] [place] Creatinine and Glomerular filtration rate.predicted panel (S/P/Bld) 96 mL/min/1.73m??? Normal >=60 [facility] Comment on above: Order Comment: Speci men Type: BLOOD SPECIMENOrdering Facility: [facility] Address: [address] [place] [address] Result Comment: Kimberley mated Glomerular Filtration Rate (eGFR) is calculated using the 2020 CKD-EPI creatinine equation. This equation utilizes serum creatinine, sex, and age as parameters. The creatinine assay has traceable calibration to isotope dilution-mass spectrometry. Refer to KDIGO guidelines for clinical interpretation. In patients with unstable renal function, e.g. those with acute kidney injury, the eGFR may not accurately reflect actual GFR. Performed By: #### 2 4323-8, 0 ####[facility] [id number] [place] [address] [place] Glucose [Mass/Vol] 181 mg/dL High 74-99 [facility] Comment on above: Order Comment: Speccipriano pichardo Type: BLOOD SPECIMENOrdering Facility: [facility] Address: [address] [place] [address] Result Comment: The [place] [employer] (ADA) provides guidance for cutoff values for fasting glucose and random glucose. The ADA defines fasting as no caloric intake for at least 8 hours. Fasting plasma glucose results between 100 to 125 mg/dL indicate increased risk for diabetes (prediabetes).Fasting plasma glucose results greater than or equal to 126 mg/dL meet the criteria for diagnosis of diabetes. In the absence of unequivocal hyperglycemia, results should be confirmed by repeat testing. In a patient with classic symptoms of hyperglycemia or hyperglycemic crisis, random plasma glucose results greater than or equal to 200 mg/dL meet the criteria for diagnosis of diabetes.Reference: Standards of Medical Care in Diabetes 2016, [place] [employer]. Diabetes Care. 2016.39(Suppl 1). Performed By: #### 2 4323-8, ####[facility] [id number] [place] [address] [place] Potassium [Moles/Vol] 4.1 mmol/L Normal 3.7-5.1 [facility] Comment on above: Order Comment: Speccipriano men Type: BLOOD SPECIMENOrdering Facility: [facility] Address: [address] [place] [address] Performed By: #### 2 4323-8, ####[facility]TONA BEACHWNCLIA [id number] [place] [address] [place] Protein [Mass/Vol] 6.5 g/dL Normal 6.3-8.0 [facility] Comment on above: Order Comment: Speci men Type: BLOOD SPECIMENOrdering Facility: [facility] Address: [address] [place] [address] Performed By: #### 2 4323-8, 2531-0 ####[facility] HOSPITALLIA [id number] [place] [address] [place] Sodium [Moles/Vol] 138 mmol/L Normal 136-144 [facility] Comment on above: Order Comment: Speci men Type: BLOOD SPECIMENOrdering Facility: [facility] Address: [address] [place] [address] Performed By: #### 2 43238, 0 ####[facility] [id number] [place] [address] [place] Urea nitrogen [Mass/Vol] 16 mg/dL Normal 9-24 [facility] Comment on above: Order Comment: Speci men Type: BLOOD SPECIMENOrdering Facility: [facility] Address: [address] [place] [address] Performed By: #### 2 4323-8, 0 ####[facility] [id number] [place] [address] [place] IMMUNOFIXATION SCREEN, SERUM on 12-21-2023 INTERPRETATION (MPA) Normal [facility] Comment on above: Order Comment: Speci men Type: BLOOD SPECIMENOrdering Facility: [facility] Address: [address] [place] [address] Result Comment: Ther e is an atypical restricted band present in the IgG and kappa regions. The location of the IgG kappa band suggests the presence of daratumumab, although one cannot rule out the possibility that this band represents a disease-related monoclonal protein. If clinically required, specific testing for daratumumab may be ordered to confirm the presence of the drug in this patient.Region of restricted mobility in IgA rene without matching region in light chain lanes, consistent with an IgA containing monoclonal gammopathy. The absence of a visible light chain could be due to lack of analytical sensitivity or could indicate that the patient has heavy chain disease, a rare form of monoclonal gammopathy. Suggest urine monoclonal protein analysis and/or serum free light chain measurement to further evaluate for a possible monoclonal gammopathy. Performed By: #### I FESC ####[facility] LABCLIA [id number] [address] MPA RESULT M protein is present. Abnormal No M protein is identified. [facility] Comment on above: Order Comment: Speci marino Type: BLOOD SPECIMENOrdering Facility: [facility] Address: [address] [place] [address] Performed By: #### I FESC ####[facility] LABIA [id number] [address] STAFF REVIEW ([facility]) Reviewed by Venkata Schrader MD, Ph.D ([id number]) Normal [facility] Comment on above: Order Comment: Citlalyi marino Type: BLOOD SPECIMENOrdering Facility: [facility] Address: [address] [place] [address] Performed By: #### I FESC ####[facility] LABIA [id number] [place] [address] [place] IMMUNOGLOBULINS,IGG,IGA,IGMo n 12-21-2023 IgA [Mass/Vol] 45 mg/dL Low 70-400 [facility] Comment on above: Order Comment: Citlalyi men Type: BLOOD SPECIMENOrdering Facility: [facility] Address: [address] [place] [address] Performed By: #### S ERIMM ####[facility] LABIA [id number] [address] [id number] [address] [place] IgG [Mass/Vol] 479 mg/dL Low 700-1600 [facility] Comment on above: Order Comment: Speci men Type: BLOOD SPECIMENOrdering Facility: [facility] Address: [address] [place] [address] Performed By: #### S ERIMM ####[facility] LABCLIA [id number] [place] [address] [place] IgM [Mass/Vol] 18 mg/dL Low 40-230 [facility] Comment on above: Order Comment: Speci men Type: BLOOD SPECIMENOrdering Facility: [facility] Address: [address] [place] [address] Performed By: #### S ERIMM ####[facility] LABCLIA [id number] [place] [address] [place] KAPPA/RAMIREZ,FREE,SERon 2023 Immunoglobulin light chains.kappa.free (S) [Mass/Vol] 4.6 mg/L Normal 3.3-19.4 [facility] Comment on above: Order Comment: Speci men Type: BLOOD SPECIMENOrdering Facility: [facility] Address: [address] [place] [address] Result Comment: Rare ly, increased serum free light chains levels may not be detected or accurately quantified due to prozone phenomenon or in high viscosity samples using this immunoturbidimetric assay. Correlation with other laboratory results and clinical findings is recommended.The [place] Free Light Chain was performed using the Binding Site Optilite immunoturbidimetric method. Result obtained with different assay methods or kits cannot be used interchangeably. Performed By: #### K LFRS ####[facility] LABCLIA [id number] [place] [address] [place] Immunoglobulin light chains.kappa/Immunoglobuli n light chains.lambda (S) [Mass ratio] 1.24 Normal 0.26-1.65 [facility] Comment on above: Order Comment: Speci men Type: BLOOD SPECIMENOrdering Facility: [facility] Address: [address] [place] [address] Performed By: #### K LFRS ####[facility] LABCLIA [id number] [place] [address] [place] Immunoglobulin light chains.lambda.free [Mass/Vol] 3.7 mg/L Low 5.7-26.3 [facility] Comment on above: Order Comment: Speci men Type: BLOOD SPECIMENOrdering Facility: [facility] Address: [address] [place] [address] Result Comment: Rare ly, increased serum free light chains levels may not be detected or accurately quantified due to prozone phenomenon or in high viscosity samples using this immunoturbidimetric assay. Correlation with other laboratory results and clinical findings is recommended.The Lambda Free Light Chain was performed using the Binding Site Optilite immunoturbidimetric method. Result obtained with different assay methods or kits cannot be used interchangeably. Performed By: #### K LFRS ####[facility] LABIA [id number] [place] [address] [place] LDH SerPl-cCncon 12-21-2023 LDH [Catalytic activity/Vol] 177 U/L Normal 135-225 [facility] Comment on above: Order Comment: Speci men Type: BLOOD SPECIMENOrdering Facility: [facility] Address: [address] [place] [address] Performed By: #### 2 4323-8, 2532-0 ####[facility] [id number] [place] [address] [place] MONOCLONAL PROT UR W/INTERPo n 12-21-2023 STAFF REVIEW ([facility]) Reviewed by Venkaat Schrader MD, Ph.D ([id number]) Normal [facility] Comment on above: Order Comment: Speci men Type: URINE SPECIMENOrdering Facility: [facility] Address: [address] [place] [address] Performed By: #### U RMPA ####[facility] LABIA [id number] [place] [id number] [place] UMPA RESULT No M protein is identified. Normal No M protein is identified. [facility] Comment on above: Order Comment: Speci men Type: URINE SPECIMENOrdering Facility: [facility] Address: [address] [place] [address] Performed By: #### U RMPA ####[facility] LABCLIA [id number] [place] [address] [place] PROTEIN ELECTROPHORESIS SERU M (P)on 12-21-2023 Albumin [Mass/Vol] 4.22 g/dL Normal 3.43-5.41 [facility] Comment on above: Order Comment: Speci men Type: BLOOD SPECIMENOrdering Facility: [facility] Address: [address] [place] [address] Performed By: #### L [id number] ####[facility] LABCLIA [id number] [place] [address] [place] Alpha 1 globulin Elph [Mass/Vol] 0.30 g/dL Normal 0.18-0.43 [facility] Comment on above: Order Comment: Speci men Type: BLOOD SPECIMENOrdering Facility: [facility] Address: [address] [place] [address] Performed By: #### L [id number] ####[facility] LABCLIA [id number] [place] [address] [place] Alpha 2 globulin Elph [Mass/Vol] 0.91 g/dL Normal 0.42-0.98 [facility] Comment on above: Order Comment: Speci men Type: BLOOD SPECIMENOrdering Facility: [facility] Address: [address] [place] [address] Performed By: #### L [id number] ####[facility] LABCLIA [id number] [place] [address] [place] Beta globulin Elph [Mass/Vol] 0.66 g/dL Normal 0.61-1.17 [facility] Comment on above: Order Comment: Speci men Type: BLOOD SPECIMENOrdering Facility: [facility] Address: [address] [place], [place] [address] Performed By: #### L [id number] ####[facility] LABCLIA [id number] [address] [address] [place] Gamma globulin Elph [Mass/Vol] 0.31 g/dL Low 0.53-1.51 [facility] Comment on above: Order Comment: Speci men Type: BLOOD SPECIMENOrdering Facility: [facility] Address: [address] [place], [place] [address] Performed By: #### L [id number] ####[facility] LABCLIA [id number] [place] [address] [place] INTERPRETATION COMMENT FOR PROTEIN ELECTROPHORESIS See separate immunofixation report for characterization of monoclonal gammopathy. Normal [facility] Comment on above: Order Comment: Speci men Type: BLOOD SPECIMENOrdering Facility: [facility] Address: [address] [place] [address] Performed By: #### L [id number] ####[facility] LABCLIA [id number] [place] [address] [place] M-PROTEIN LOCATION Gamma Fraction 1 Normal [facility] Comment on above: Order Comment: Speci men Type: BLOOD SPECIMENOrdering Facility: [facility] Address: [address] [place], [place] [address] Performed By: #### L [id number] ####[facility] LABCLIA [id number] [address] [address] [place] Protein Fractions [Interp] An M protein is identified on protein electrophoresis. Abnormal No definitive M protein is identified on protein electrophor esis. [facility] Comment on above: Order Comment: Speci men Type: BLOOD SPECIMENOrdering Facility: [facility] Address: [address] [place], [place] [address] Performed By: #### L [id number] ####[facility] LABCLIA [id number] [place] [address] [place] Protein.monoclonal Elph [Mass/Vol] 0.15 g/dL High <=0.00 [facility] Comment on above: Order Comment: Speci men Type: BLOOD SPECIMENOrdering Facility: [facility] Address: [address] [place] [address] Performed By: #### L [id number] ####[facility] HOSPITALIA [id number] [place] [address] [place] SPE STAFF REVIEW Reviewed by Venkata Schrader MD, Ph.D ([id number]) Normal [facility] Comment on above: Order Comment: Speci men Type: BLOOD SPECIMENOrdering Facility: [facility] Address: [address] [place] [address] Performed By: #### L [id number] ####[facility] HOSPITALIA [id number] [place] [address] [place] Prot SerPl-mCncon 12-21-2023 Protein [Mass/Vol] 6.4 g/dL Normal 6.3-8.0 [facility] Comment on above: Order Comment: Speci men Type: BLOOD SPECIMENOrdering Facility: [facility] Address: [address] [place] [address] Performed By: #### 1 952-1, 2885-2 ####[facility] LABIA [id number] [place] [address] [place] Prot Ur-mCncon 12-21-2023 Protein (U) [Mass/Vol] 9 mg/dL Normal 0-[address] [facility] Comment on above: Order Comment: Speci men Type: URINE SPECIMENOrdering Facility: [facility] Address: [address] [place] [address] Performed By: #### 2 888-6 ####[facility] LABIA [id number] [place] [address] [place] URINE PROTEIN ELECTROPHORESI S RANDOM (P)on 12-21-2023 Albumin Elph (U) [Mass fraction] 47.93 % Normal [facility] Comment on above: Order Comment: Speci men Type: URINE SPECIMENOrdering Facility: [facility] Address: [address] [place] [address] Performed By: #### L [id number] ####[facility] LABCLIA [id number] [place] [address] [place] Alpha 1 globulin Elph (U) [Mass fraction] 5.24 % Normal [facility] Comment on above: Order Comment: Speci men Type: URINE SPECIMENOrdering Facility: [facility] Address: [address] [place] [address] Performed By: #### L [id number] ####[facility] LABCLIA [id number] [address] [place] Alpha 2 globulin Elph (U) [Mass fraction] 25.33 % Normal [facility] Comment on above: Order Comment: Speci men Type: URINE SPECIMENOrdering Facility: [facility] Address: [address] [place] [address] Performed By: #### L [id number] ####[facility] LABCLIA [id number] [place] [address] [place] Beta globulin Elph (U) [Mass fraction] 15.56 % Normal [facility] Comment on above: Order Comment: Speci men Type: URINE SPECIMENOrdering Facility: [facility] Address: [address] [place] [address] Performed By: #### L [id number] ####[facility] LABCLIA [id number] [place] [address] [place] Gamma globulin Elph (U) [Mass fraction] 5.94 % Normal [facility] Comment on above: Order Comment: Speci men Type: URINE SPECIMENOrdering Facility: [facility] Address: [address] [place] [address] Performed By: #### L [id number] ####[facility]ITALIA [id number] [place] [address] [place] INTERPRETATION COMMENT FOR PROTEIN ELECTROPHORESIS The atypical region did not stain on accompanying immunofixation and therefore is unlikely to be a monoclonal immunoglobulin. Normal [facility] Comment on above: Order Comment: Speci men Type: URINE SPECIMENOrdering Facility: [facility] Address: [address] [place] [address] Performed By: #### L [id number] ####[facility] [id number] [place] [address] [place] Protein Fractions Elph Shalom (U) [Interp] An atypical region of restricted mobility is identified on protein electrophoresis. Abnormal No definitive M protein is identified on protein electrophor esis. [facility] Comment on above: Order Comment: Speci men Type: URINE SPECIMENOrdering Facility: [facility] Address: [address] [place] [address] Performed By: #### L [id number] ####[facility] [id number] [place] [address] [place] STAFF REVIEW (URINE ELECTRO) Reviewed by Venkata Schrader MD, Ph.D ([id number]) Normal [facility] Comment on above: Order Comment: Speci men Type: URINE SPECIMENOrdering Facility: [facility] Address: [address] [place] [address] Performed By: #### L [id number] ####[facility] [id number] [place] [id number] [place] CNPNon 12-19-2023 CNPN Normal [facility] CT ABD/PEL W IVCONon 024 CT ABD/PEL W IVCON Normal [facility] CT CHEST W IVCONon 4 CT CHEST W IVCON Normal [facility] Pulmonary Visit Reporton Pulmonary Visit Report Normal [facility] CBC W Auto Differential pane l (Bld)on 12-07-2023 Basophils (Bld) [#/Vol] 0.03 10*3/uL Normal <0.11 [facility] Comment on above: Order Comment: Speci men Type: BLOOD SPECIMENOrdering Facility: [facility] Address: [address] [place] [address] Performed By: #### 5 7021-8 ####[facility] HOSPITALLIA [id number] [place] [address] [place] Basophils/100 WBC (Bld) 0.3 % Normal [facility] Comment on above: Order Comment: Speci men Type: BLOOD SPECIMENOrdering Facility: [facility] Address: [address] [place] [address] Performed By: #### 5 7021-8 ####[facility] [id number] [place] [address] [place] Differential cell count method Nom (Bld) Auto Normal [facility] Comment on above: Order Comment: Speci men Type: BLOOD SPECIMENOrdering Facility: [facility] Address: [address] [place] [address] Performed By: #### 5 7021-8 ####[facility]ITALLIA [id number] [place] [address] [place] Eosinophils (Bld) [#/Vol] 0.11 10*3/uL Normal <0.46 [facility] Comment on above: Order Comment: Speci men Type: BLOOD SPECIMENOrdering Facility: [facility] Address: [address] [place] [address] Performed By: #### 5 7021-8 ####[facility] H[facility]ITALLIA [id number] [place] [address] [place] Eosinophils/100 WBC (Bld) 1.2 % Normal [facility] Comment on above: Order Comment: Speci men Type: BLOOD SPECIMENOrdering Facility: [facility] Address: [address] [place] [address] Performed By: #### 5 7021-8 ####[facility] BONCFARAZ [id number] [place] [address] [place] Erythrocyte distribution width (RBC) [Ratio] 16.2 % High 11.5-15.0 [facility] Comment on above: Order Comment: Speci men Type: BLOOD SPECIMENOrdering Facility: [facility] Address: [address] [place] [address] Performed By: #### 5 7021-8 ####[facility]IALNCLIA [id number] [place] [address] [place] Hematocrit (Bld) [Volume fraction] 41.8 % Normal 39.0-51.0 [facility] Comment on above: Order Comment: Speci men Type: BLOOD SPECIMENOrdering Facility: [facility] Address: [address] [place] [address] Performed By: #### 5 7021-8 ####[facility]IALNCLIA [id number] [place] [address] [place] Hemoglobin (Bld) [Mass/Vol] 12.8 g/dL Low 13.0-17.0 [facility] Comment on above: Order Comment: Speci men Type: BLOOD SPECIMENOrdering Facility: [facility] Address: [address] [place] [address] Performed By: #### 5 7021-8 ####[facility]IALNCLIA [id number] [place] [address] [place] Immature granulocytes (Bld) [#/Vol] 0.04 10*3/uL Normal <0.10 [facility] Comment on above: Order Comment: Speci men Type: BLOOD SPECIMENOrdering Facility: [facility] Address: [address] [place] [address] Performed By: #### 5 7021-8 ####[facility] YANDELEATONRONAKLIA [id number] [address] [place] [facility] Immature granulocytes/100 WBC (Bld) 0.4 % Normal [facility] Comment on above: Order Comment: Speci men Type: BLOOD SPECIMENOrdering Facility: [facility] Address: [address] [place] [address] Performed By: #### 5 7021-8 ####[facility]CLIA [id number] [place] [address] [place] Lymphocytes (Bld) [#/Vol] 1.21 10*3/uL Normal 1.00-4.0 0 [facility] Comment on above: Order Comment: Speci men Type: BLOOD SPECIMENOrdering Facility: [facility] Address: [address] [place] [address] Performed By: #### 5 7021-8 ####[facility] [id number] [place] [address] [place] Lymphocytes/100 WBC (Bld) 12.8 % Normal [facility] Comment on above: Order Comment: Speci men Type: BLOOD SPECIMENOrdering Facility: [facility] Address: [address] [place] [address] Performed By: #### 5 7021-8 ####[facility] [id number] [place] [address] [place] MCH (RBC) [Entitic mass] 24.9 pg Low 26.0-34.0 [facility] Comment on above: Order Comment: Speci men Type: BLOOD SPECIMENOrdering Facility: [facility] Address: [address] [place] [address] Performed By: #### 5 7021-8 ####[facility] [id number] [place] [address] [place] MCHC (RBC) [Mass/Vol] 30.6 g/dL Normal 30.5-36.0 [facility] Comment on above: Order Comment: Speci men Type: BLOOD SPECIMENOrdering Facility: [facility] Address: [address] [place] [address] Performed By: #### 5 7021-8 ####[facility] YANDELEATONMARCEA [id number] [place] [address] [place] MCV (RBC) [Entitic vol] 81.3 fL Normal 80.0-100.0 [facility] Comment on above: Order Comment: Speci men Type: BLOOD SPECIMENOrdering Facility: [facility] Address: [address] [place] [address] Performed By: #### 5 7021-8 ####[facility]IALNCSUMIA [id number] [place] [address] [place] Monocytes (Bld) [#/Vol] 0.62 10*3/uL Normal <0.87 [facility] Comment on above: Order Comment: Speci men Type: BLOOD SPECIMENOrdering Facility: [facility] Address: [address] [place] [address] Performed By: #### 5 7021-8 ####[facility]MARCEA [id number] [place] [address] [place] Monocytes/100 WBC (Bld) 6.5 % Normal [facility] Comment on above: Order Comment: Speci men Type: BLOOD SPECIMENOrdering Facility: [facility] Address: [address] [place] [address] Performed By: #### 5 7021-8 ####[facility]IALNCLIA [id number] [place] [address] [place] Neutrophils (Bld) [#/Vol] 7.47 10*3/uL Normal 1.45-7.5 0 [facility] Comment on above: Order Comment: Speci men Type: BLOOD SPECIMENOrdering Facility: [facility] Address: [address] [place] [address] Performed By: #### 5 7021-8 ####[facility] [id number] [place] [address] [place] Neutrophils/100 WBC (Bld) 78.8 % Normal [facility] Comment on above: Order Comment: Speci men Type: BLOOD SPECIMENOrdering Facility: [facility] Address: [address] [place] [address] Performed By: #### 5 7021-8 ####[facility] [id number] [place] [address] [place] Nucleated RBC (Bld) [#/Vol] 10*3/uL Normal <0.01 [facility] Comment on above: Order Comment: Speci men Type: BLOOD SPECIMENOrdering Facility: [facility] Address: [address] [place] [address] Performed By: #### 5 7021-8 ####[facility] [id number] [place] [address] [place] Nucleated RBC/100 WBC (Bld) [Ratio] 0.0 /100 WBC Normal [facility] Comment on above: Order Comment: Speci men Type: BLOOD SPECIMENOrdering Facility: [facility] Address: [address] [place] [address] Performed By: #### 5 7021-8 ####[facility] [id number] [place] [address] [place] Platelet mean volume (Bld) [Entitic vol] 9.5 fL Normal 9.0-12.7 [facility] Comment on above: Order Comment: Speci men Type: BLOOD SPECIMENOrdering Facility: [facility] Address: [address] [place] [address] Performed By: #### 5 7021-8 ####[facility] HUMBERTOWNCLIA [id number] [place] [address] [place] Platelets (Bld) [#/Vol] 312 10*3/uL Normal 150-400 [facility] Comment on above: Order Comment: Speci men Type: BLOOD SPECIMENOrdering Facility: [facility] Address: [facility] [place] [address] Performed By: #### 5 7021-8 ####[facility]IALNCLIA [id number] [place] [address] [place] [facility] RBC (Bld) [#/Vol] 5.14 10*6/uL Normal 4.20-6.00 [facility] Comment on above: Order Comment: Speci men Type: BLOOD SPECIMENOrdering Facility: [facility] Address: [address] [place], [place] [address] Performed By: #### 5 7021-8 ####[facility]IALNCLIA [id number] [place] [address] [place] WBC (Bld) [#/Vol] 9.48 10*3/uL Normal 3.70-11.00 [facility] Comment on above: Order Comment: Speci men Type: BLOOD SPECIMENOrdering Facility: [facility] Address: [address] [place], [place] [address] Performed By: #### 5 7021-8 ####[facility]IALNCLIA [id number] [place] [address] [place] [facility] [place] Comprehensive metabolic 2000 panelOrdered By: Estefanía Collins on 12-07-2023 Albumin [Mass/Vol] 3.8 g/dL Low 3.9 - 4.9 g/dL [facility] ALP [Catalytic activity/Vol] 104 U/L 38 - 113 U/L [facility] ALT [Catalytic activity/Vol] 15 U/L 10 - 54 U/L [facility] Anion gap [Moles/Vol] 11 mmol/L 8 - 15 mmol/L [facility] AST [Catalytic activity/Vol] 15 U/L 14 - 40 U/L [facility] Bilirubin [Mass/Vol] 0.4 mg/dL 0.2 - 1 .3 mg/dL [facility] Calcium [Mass/Vol] 8.7 mg/dL 8.5 - 10. 2 mg/dL [facility] Chloride [Moles/Vol] 106 mmol/L 98 - 10 7 mmol/L [facility] CO2 [Moles/Vol] 23 mmol/L 22 - 30 mmol/L [facility] Creatinine [Mass/Vol] 0.66 mg/dL Low 0.73 - 1.22 mg/dL [facility] GFR/1.73 sq M.predicted among non-blacks MDRD (S/P/Bld) [Vol rate/Area] 100 mL/min/{1.73_m2} - [facility] Comment on above: Estimated Glomerular Filtration Rate (eGFR) is calculated using the 2020 CKD-EPI creatinine equation. This equation utilizes serum creatinine, sex, and age as parameters. The creatinine assay has traceable calibration to isotope dilution-mass spectrometry. Refer to KDIGO guidelines for clinical interpretation. In patients with unstable renal function, e.g. those with acute kidney injury, the eGFR may not accurately reflect actual GFR. Glucose [Mass/Vol] 85 mg/dL 74 - 99 mg/dL [facility] Comment on above: The [place] Diab[employer] [place] Association (ADA) provides guidance for cutoff values for fasting glucose and random glucose. The ADA defines fasting as no caloric intake for at least 8 hours. Fasting plasma glucose results between 100 to 125 mg/dL indicate increased risk for diabetes (prediabetes). Fasting plasma glucose results greater than or equal to 126 mg/dL meet the criteria for diagnosis of diabetes. In the absence of unequivocal hyperglycemia, results should be confirmed by repeat testing. In a patient with classic symptoms of hyperglycemia or hyperglycemic crisis, random plasma glucose results greater than or equal to 200 mg/dL meet the criteria for diagnosis of diabetes. Reference: Standards of Medical Care in Diabetes 2016, [place] Diabetes Association. Diabetes Care. 2016.39(Suppl 1). Interpretation and review of laboratory results Abnormal [facility] Potassium [Moles/Vol] 3.5 mmol/L Low 3.7 - 5.1 mmol/L [facility] Protein [Mass/Vol] 5.7 g/dL Low 6.3 - 8.0 g/dL [facility] Sodium [Moles/Vol] 140 mmol/L 136 - 144 mmol/L [facility] Urea nitrogen [Mass/Vol] 16 mg/dL 9 - 24 mg/dL [facility] Comprehensive metabolic 2000 panelon 12-07-2023 Albumin [Mass/Vol] 3.8 g/dL Low 3.9-4.9 [facility] Comment on above: Order Comment: Speci men Type: BLOOD SPECIMENOrdering Facility: [facility] Address: [address] [place] [address] Performed By: #### 2 4323-8 ####[facility] MILLWRONKALIA [id number] [place] [address] [place] ALP [Catalytic activity/Vol] 104 U/L Normal 38-113 [facility] Comment on above: Order Comment: Speci men Type: BLOOD SPECIMENOrdering Facility: [facility] Address: [address] [place] [address] Performed By: #### 2 4323-8 ####[facility]MAR[facility] [id number] [place] [address] [place] ALT [Catalytic activity/Vol] 15 U/L Normal 10-54 [facility] Comment on above: Order Comment: Speci men Type: BLOOD SPECIMENOrdering Facility: [facility] Address: [address] [place] [address] Performed By: #### 2 4323-8 ####[facility] MILLWNCLIA [id number] [place] [address] [place] Anion gap [Moles/Vol] 11 mmol/L Normal 8-15 [facility] Comment on above: Order Comment: Speci men Type: BLOOD SPECIMENOrdering Facility: [facility] Address: [address] [place] [address] Performed By: #### 2 4323-8 ####[facility] MEMORIALRONAKLIA [id number] [place] [address] [place] AST [Catalytic activity/Vol] 15 U/L Normal 14-40 [facility] Comment on above: Order Comment: Speci men Type: BLOOD SPECIMENOrdering Facility: [facility] Address: [address] [place] [address] Performed By: #### 2 4323-8 ####[facility]TON[facility] BEACHWNCLIA [id number] [place] [address] [place] Bilirubin [Mass/Vol] 0.4 mg/dL Normal 0.2-1.3 [facility] Comment on above: Order Comment: Speci men Type: BLOOD SPECIMENOrdering Facility: [facility] Address: [address] [place] [address] Performed By: #### 2 4323-8 ####[facility] BEACHWNCLIA [id number] [place] [address] [place] Calcium [Mass/Vol] 8.7 mg/dL Normal 8.5-10.2 [facility] Comment on above: Order Comment: Speci men Type: BLOOD SPECIMENOrdering Facility: [facility] Address: [address] [place] [address] Performed By: #### 2 4323-8 ####[facility]IALNCLIA [id number] [place] [address] [place] Chloride [Moles/Vol] 106 mmol/L Normal 98-107 [facility] Comment on above: Order Comment: Speci men Type: BLOOD SPECIMENOrdering Facility: [facility] Address: [address] [place] [address] Performed By: #### 2 4323-8 ####[facility] BEACHWNCLIA [id number] [place] [address] [place] CO2 [Moles/Vol] 23 mmol/L Normal 22-30 [facility] Comment on above: Order Comment: Speci men Type: BLOOD SPECIMENOrdering Facility: [facility] Address: [address] [place] [address] Performed By: #### 2 4323-8 ####[facility] YANDELEATONNCLI [id number] [place] [address] [place] Creatinine [Mass/Vol] 0.66 mg/dL Low 0.73-1.22 [facility] Comment on above: Order Comment: Speci men Type: BLOOD SPECIMENOrdering Facility: [facility] Address: [address] [place] [address] Performed By: #### 2 4323-8 ####[facility] [id number] [place] [address] [place] Creatinine and Glomerular filtration rate.predicted panel (S/P/Bld) 100 mL/min/1.73m??? Normal >=60 [facility] Comment on above: Order Comment: Speci men Type: BLOOD SPECIMENOrdering Facility: [facility] Address: [address] [place] [address] Result Comment: Kimberley mated Glomerular Filtration Rate (eGFR) is calculated using the 2020 CKD-EPI creatinine equation. This equation utilizes serum creatinine, sex, and age as parameters. The creatinine assay has traceable calibration to isotope dilution-mass spectrometry. Refer to KDIGO guidelines for clinical interpretation. In patients with unstable renal function, e.g. those with acute kidney injury, the eGFR may not accurately reflect actual GFR. Performed By: #### 2 4323-8 ####[facility]IALNCL[facility] [id number] [place] [address] [place] Glucose [Mass/Vol] 85 mg/dL Normal 74-99 [facility] Comment on above: Order Comment: Speci men Type: BLOOD SPECIMENOrdering Facility: [facility] Address: [address] [place] [address] Result Comment: The [place] Diabetes Association (ADA) provides guidance for cutoff values for fasting glucose and random glucose. The ADA defines fasting as no caloric intake for at least 8 hours. Fasting plasma glucose results between 100 to 125 mg/dL indicate increased risk for diabetes (prediabetes).Fasting plasma glucose results greater than or equal to 126 mg/dL meet the criteria for diagnosis of diabetes. In the absence of unequivocal hyperglycemia, results should be confirmed by repeat testing. In a patient with classic symptoms of hyperglycemia or hyperglycemic crisis, random plasma glucose results greater than or equal to 200 mg/dL meet the criteria for diagnosis of diabetes.Reference: Standards of Medical Care in Diabetes 2016, [place] [employer]. Diabetes Care. 2016.39(Suppl 1). Performed By: #### 2 4323-8 ####[facility] [id number] [place] [address] [place] Potassium [Moles/Vol] 3.5 mmol/L Low 3.7-5.1 [facility] Comment on above: Order Comment: Speci men Type: BLOOD SPECIMENOrdering Facility: [facility] Address: [address] [place] [address] Performed By: #### 2 4323-8 ####[facility] [id number] [place] [address] [place] Protein [Mass/Vol] 5.7 g/dL Low 6.3-8.0 [facility] Comment on above: Order Comment: Speci men Type: BLOOD SPECIMENOrdering Facility: [facility] Address: [address] [place] [address] Performed By: #### 2 4323-8 ####[facility] [id number] [place] [address] [place] Sodium [Moles/Vol] 140 mmol/L Normal 136-144 [facility] Comment on above: Order Comment: Speci men Type: BLOOD SPECIMENOrdering Facility: [facility] Address: [address] [place] [address] Performed By: #### 2 4323-8 ####[facility]IALNCLIA [id number] [place] [address] [place] Urea nitrogen [Mass/Vol] 16 mg/dL Normal 9-24 [facility] Comment on above: Order Comment: Speci men Type: BLOOD SPECIMENOrdering Facility: [facility] Address: [address] [place], [place] [address] Performed By: #### 2 4323-8 ####[facility] CAMPUSSALONI HUMPHRIESWNCLIA [id number] [place] [address] [place] Cardiology Visit Reporton Cardiology Visit Report Normal [facility] Comprehensive Metabolic Prof ilon 11-30-2023 Albumin [Mass/Vol] 3.2 g/dL Normal 3.2-5.0 [facility] Comment on above: Performed By: #### L 502.0250, L500.4050, L500.4100, L501.9985 ####[facility] [address] [place], [address] Albumin/Globulin [Mass ratio] 1.0 {ratio} Normal 0.9-2.4 [facility] Comment on above: Performed By: #### L 502.0250, L500.4050, L500.4100, L501.9985 ####[facility] [address] [place], [address] ALK P 121 U/L High 45-117 [facility] Comment on above: Performed By: #### L 502.0250, L500.4050, L500.4100, L501.9985 ####[facility] [address] [place], [address] ALT [Catalytic activity/Vol] 23 U/L Normal 16-61 [facility] Comment on above: Performed By: #### L 502.0250, L500.4050, L500.4100, L501.9985 ####[facility] [address] [place], [address] AST [Catalytic activity/Vol] 13 U/L Low 15-37 [facility] Comment on above: Performed By: #### L 502.0250, L500.4050, L500.4100, L501.9985 ####[facility] [address] [place], [address] Bilirubin [Mass/Vol] 0.40 mg/dL Normal 0.20-1.00 [facility] Comment on above: Result Comment: For patients on eltrombopag therapy, use of Dimension [place] TBIL is not recommended. Performed By: #### L 502.0250, L500.4050, L500.4100, L501.9985 ####[facility] [address] [place], [address] BUN/CRE 22.4 RATIO High 10-20 [facility] Comment on above: Performed By: #### L 502.0250, L500.4050, L500.4100, L501.9985 ####[facility] [address] [place], [address] CA,Total 8.8 mg/dL Normal 8.5-10.1 [facility] Comment on above: Performed By: #### L 502.0250, L500.4050, L500.4100, L501.9985 ####[facility] [address] [place], [address] Chloride [Moles/Vol] 108 mmol/L High 98-107 [facility] Comment on above: Performed By: #### L 502.0250, L500.4050, L500.4100, L501.9985 ####[facility] [address] [place], [address] CO2 [Moles/Vol] 28.0 mmol/L Normal 21.0-32.0 [facility] Comment on above: Performed By: #### L 502.0250, L500.4050, L500.4100, L501.9985 ####[facility] [address] [place], [address] Creatinine [Mass/Vol] 0.80 mg/dL Normal 0.70-1.30 [facility] Comment on above: Result Comment: The validity of the calculated GFR GFRAA in patients over70 years has not been determined. Clinical correlation isessential. Performed By: #### L 502.0250, L500.4050, L500.4100, L501.9985 ####[facility] [address] [place], [address] EST GFR - AA 122 mL/min Normal >60 [facility] Comment on above: Result Comment: Afri can [place] GFR Calc Performed By: #### L 502.0250, L500.4050, L500.4100, L501.9985 ####[facility] [address] [place], [address] GAP 5 Normal 5-15 [facility] Comment on above: Performed By: #### L 502.0250, L500.4050, L500.4100, L501.9985 ####[facility] [address] [place], [address] GFR/1.73 sq M.predicted among non-blacks MDRD (S/P/Bld) [Vol rate/Area] 101 mL/min/{1.73_m2} Normal >60 [facility] Comment on above: Result Comment: Non- GFR Calc Performed By: #### L 502.0250, L500.4050, L500.4100, L501.9985 ####[facility] [address] [place], [address] Globulin (S) [Mass/Vol] 3.1 g/dL Normal 2.2-4.2 [facility] Comment on above: Performed By: #### L 502.0250, L500.4050, L500.4100, L501.9985 ####[facility] [address] [place], [address] Glucose [Mass/Vol] 106 mg/dL Normal 74-106 [facility] Comment on above: Result Comment: Fast ing Glucose result from 100 to 125 mg/dLsuggests IMPAIRED HOMEOSTASIS per A.D.A. criteria. Performed By: #### L 502.0250, L500.4050, L500.4100, L501.9985 ####[facility] [address] [place], [address] Potassium [Moles/Vol] 4.1 mmol/L Normal 3.5-5.1 [facility] Comment on above: Performed By: #### L 502.0250, L500.4050, L500.4100, L501.9985 ####[facility] [address] [place], [address] Sodium [Moles/Vol] 141 mmol/L Normal 136-145 [facility] Comment on above: Performed By: #### L 502.0250, L500.4050, L500.4100, L501.9985 ####[facility] [address] [place], [address] T PROT 6.3 g/dL Low 6.4-8.2 [facility] Comment on above: Performed By: #### L 502.0250, L500.4050, L500.4100, L501.9985 ####[facility] [address] [place], [address] Urea nitrogen [Mass/Vol] 18 mg/dL Normal 7-18 [facility] Comment on above: Performed By: #### L 502.0250, L500.4050, L500.4100, L501.9985 ####[facility] [address] [place], [address] Hemoglobin A1con 11-30-2023 HbA1c (Bld) [Mass fraction] 6.6 % High 3.8-5.6 [facility] Comment on above: Result Comment: Norm al < 5.7 % Prediabetic 5.7 - 6.4 % Diabetic >or= 6.5 % Please note range changes. Performed By: #### L 502.0250, L500.4050, L500.4100, L501.9985 ####[facility] [address] [place], [address] Lipid Profileon 11-30-2023 Cholesterol [Mass/Vol] 127 mg/dL Normal [address] [facility] Comment on above: Result Comment: <200 mg/dL Desirable 200-240 mg/dL Borderline >240 mg/dL High Risk Performed By: #### L 502.0250, L500.4050, L500.4100, L501.9985 ####[facility] [address] [place], [address] Cholesterol in HDL [Mass/Vol] 46 mg/dL Normal [facility] Comment on above: Result Comment: The drugs N-Acetylcysteine and Metamizole may falselydepress this assay. Reference Range HDL <40 mg/dL Low HDL Cholesterol HDL >or= 60 mg/dL High HDL Cholesterol Performed By: #### L 502.0250, L500.4050, L500.4100, L501.9985 ####[facility] [address] [place], [address] Cholesterol in LDL [Mass/Vol] 72 mg/dL Normal 0-130 [facility] Comment on above: Performed By: #### L 502.0250, L500.4050, L500.4100, L501.9985 ####[facility] [address] [place], [address] Cholesterol in VLDL [Mass/Vol] 9 mg/dL Normal 5-40 [facility] Comment on above: Performed By: #### L 502.0250, L500.4050, L500.4100, L501.9985 ####[facility] [address] [place], [address] Triglyceride [Mass/Vol] 46 mg/dL Normal [facility] Comment on above: Result Comment: The drugs N-Acetylcysteine and Metamizole may falselydepress this assay.Serum Triglycerides Reference Interval Normal <150 mg/dL Borderline high 150 - 199 mg/dL High 200 - 499 mg/dL Very High > or = 500 mg/dL Performed By: #### L 502.0250, L500.4050, L500.4100, L501.9985 ####[facility] [address] [place], [address] Microalb:Creat Ratio,Random URon 11-30-2023 Creatinine [Mass/Vol] 83.30 mg/dL Normal NO RAN GE EST. [facility] Comment on above: Performed By: #### L 502.0250, L500.4050, L500.4100, L501.9985 ####[facility] [address] [place], [address] MALB:CRE 26.2 mg/g CRE Normal <30 mg/g CRE [facility] Comment on above: Performed By: #### L 502.0250, L500.4050, L500.4100, L501.9985 ####[facility] [address] [place], [address] MICROALBUMIN,UR 21.8 mg/L Normal NO RANGE EST. [facility] Comment on above: Performed By: #### L 502.0250, L500.4050, L500.4100, L501.9985 ####[facility] [address] [place], [address] B2 Microglob SerPl-mCncon Awas-8-Ayuxtqtmyiatj [Mass/Vol] 2.2 ug/mL Normal <3.1 [facility] Comment on above: Order Comment: Speci men Type: BLOOD SPECIMENOrdering Facility: [facility] Address: [address] [place] [address] Result Comment: Beta -2 Microglobulin test is performed using the [employer] immunoturbidimetric method. Results obtained with different methods or kits cannot be used interchangeably. Performed By: #### 2 885-2, 1952-1 ####[facility] LABCLIA [id number] [id number] [place] [address] [place] CBC W Auto Differential pane l (Bld)on 11-23-2023 Basophils (Bld) [#/Vol] 0.04 10*3/uL Normal <0.11 [facility] Comment on above: Order Comment: Speci men Type: BLOOD SPECIMENOrdering Facility: [facility] Address: [address] [place] [address] Performed By: #### 5 7021-8 ####[facility] [id number] [place] [address] [place] Basophils/100 WBC (Bld) 0.4 % Normal [facility] Comment on above: Order Comment: Speci men Type: BLOOD SPECIMENOrdering Facility: [facility] Address: [address] [place] [address] Performed By: #### 5 7021-8 ####[facility] [id number] [place] [address] [place] Differential cell count method Nom (Bld) Auto Normal [facility] Comment on above: Order Comment: Speci men Type: BLOOD SPECIMENOrdering Facility: [facility] Address: [address] [place] [address] Performed By: #### 5 7021-8 ####[facility] [id number] [place] [address] [place] Eosinophils (Bld) [#/Vol] 0.13 10*3/uL Normal <0.46 [facility] Comment on above: Order Comment: Speci men Type: BLOOD SPECIMENOrdering Facility: [facility] Address: [address] [place] [address] Performed By: #### 5 7021-8 ####[facility] [id number] [place] [address] [place] Eosinophils/100 WBC (Bld) 1.2 % Normal [facility] Comment on above: Order Comment: Speci men Type: BLOOD SPECIMENOrdering Facility: [facility] Address: [address] [place] [address] Performed By: #### 5 7021-8 ####[facility] [id number] [place] [address] [place] Erythrocyte distribution width (RBC) [Ratio] 16.6 % High 11.5-15.0 [facility] Comment on above: Order Comment: Speci men Type: BLOOD SPECIMENOrdering Facility: [facility] Address: [address] [place] [address] Performed By: #### 5 7021-8 ####[facility] [id number] [place] [address] [place] Hematocrit (Bld) [Volume fraction] 41.7 % Normal 39.0-51.0 [facility] Comment on above: Order Comment: Speci men Type: BLOOD SPECIMENOrdering Facility: [facility] Address: [address] [place] [address] Performed By: #### 5 7021-8 ####[facility] [id number] [place] [address] [place] Hemoglobin (Bld) [Mass/Vol] 13.0 g/dL Normal 13.0-17.0 [facility] Comment on above: Order Comment: Speci men Type: BLOOD SPECIMENOrdering Facility: [facility] Address: [address] [place] [address] Performed By: #### 5 7021-8 ####[facility] MILLTOWNCLIA [id number] [place] [address] [place] Immature granulocytes (Bld) [#/Vol] 0.05 10*3/uL Normal <0.10 [facility] Comment on above: Order Comment: Speci men Type: BLOOD SPECIMENOrdering Facility: [facility] Address: [address] [place] [address] Performed By: #### 5 7021-8 ####[facility] MILLTOWNCLIA [id number] [place] [address] [place] Immature granulocytes/100 WBC (Bld) 0.5 % Normal [facility] Comment on above: Order Comment: Speci men Type: BLOOD SPECIMENOrdering Facility: [facility] Address: [address] [place] [address] Performed By: #### 5 7021-8 ####[facility] BEACHWNCLIA [id number] [place] [address] [place] Lymphocytes (Bld) [#/Vol] 1.23 10*3/uL Normal 1.00-4.0 0 [facility] Comment on above: Order Comment: Speci men Type: BLOOD SPECIMENOrdering Facility: [facility] Address: [address] [place] [address] Performed By: #### 5 7021-8 ####[facility] MILLTOWNCLIA [id number] [place] [address] [place] Lymphocytes/100 WBC (Bld) 11.6 % Normal [facility] Comment on above: Order Comment: Speci men Type: BLOOD SPECIMENOrdering Facility: [facility] Address: [address] [place] [address] Performed By: #### 5 7021-8 ####[facility] MILLTOWNCLIA [id number] [place] [address] [place] MCH (RBC) [Entitic mass] 25.2 pg Low 26.0-34.0 [facility] Comment on above: Order Comment: Speci men Type: BLOOD SPECIMENOrdering Facility: [facility] Address: [address] [place] [address] Performed By: #### 5 7021-8 ####[facility] [id number] [place] MCHC (RBC) [Mass/Vol] 31.2 g/dL Normal 30.5-36.0 [facility] Comment on above: Order Comment: Speci men Type: BLOOD SPECIMENOrdering Facility: [facility] Address: [address] [place] [address] Performed By: #### 5 7021-8 ####[facility] [id number] [address] [place] MCV (RBC) [Entitic vol] 81.0 fL Normal 80.0-100.0 [facility] Comment on above: Order Comment: Speci men Type: BLOOD SPECIMENOrdering Facility: [facility] Address: [address] [place] [address] Performed By: #### 5 7021-8 ####[facility]OSPITALMarcio [id number] [place] [address] [place] Monocytes (Bld) [#/Vol] 0.88 10*3/uL High <0.87 [facility] Comment on above: Order Comment: Speci men Type: BLOOD SPECIMENOrdering Facility: [facility] Address: [address] [place] [address] Performed By: #### 5 7021-8 ####[facility] [id number] [address] [place] Monocytes/100 WBC (Bld) 8.3 % Normal C [facility] Comment on above: Order Comment: Speci men Type: BLOOD SPECIMENOrdering Facility: [facility] Address: [address] [place] [address] Performed By: #### 5 7021-8 ####[facility] BEACHWMDLIA [id number] [place] [address] [place] Neutrophils (Bld) [#/Vol] 8.25 10*3/uL High 1.45-7.5 0 [facility] Comment on above: Order Comment: Speci men Type: BLOOD SPECIMENOrdering Facility: [facility] Address: [address] [place] [address] Performed By: #### 5 7021-8 ####[facility] [id number] [place] [address] [place] Neutrophils/100 WBC (Bld) 78.0 % Normal [facility] Comment on above: Order Comment: Speci men Type: BLOOD SPECIMENOrdering Facility: [facility] Address: [address] [place] [address] Performed By: #### 5 7021-8 ####[facility] [id number] [place] [address] [place] Nucleated RBC (Bld) [#/Vol] 10*3/uL Normal <0.01 [facility] Comment on above: Order Comment: Speci men Type: BLOOD SPECIMENOrdering Facility: [facility] Address: [address] [place] [address] Performed By: #### 5 7021-8 ####[facility] [id number] [place] [address] [place] Nucleated RBC/100 WBC (Bld) [Ratio] 0.0 /100 WBC Normal [facility] Comment on above: Order Comment: Speci men Type: BLOOD SPECIMENOrdering Facility: [facility] Address: [address] [place], [place] [address] Performed By: #### 5 7021-8 ####[facility] YANDELEATONNCSUMIA [id number] [place] [address] [place] Platelet mean volume (Bld) [Entitic vol] 10.4 fL Normal 9.0-12.7 [facility] Comment on above: Order Comment: Speci men Type: BLOOD SPECIMENOrdering Facility: [facility] Address: [address] [place], [place] [address] Performed By: #### 5 7021-8 ####[facility] [id number] [place] [address] [place] Platelets (Bld) [#/Vol] 350 10*3/uL Normal 150-400 [facility] Comment on above: Order Comment: Speci men Type: BLOOD SPECIMENOrdering Facility: [facility] Address: [address] [place], [place] [address] Performed By: #### 5 7021-8 ####[facility] [id number] [place] [address] [place] RBC (Bld) [#/Vol] 5.15 10*6/uL Normal 4.20-6.00 [facility] Comment on above: Order Comment: Speci men Type: BLOOD SPECIMENOrdering Facility: [facility] Address: [address] [place], [place] [address] Performed By: #### 5 7021-8 ####[facility]CL[facility] [id number] [place] [address] [place] WBC (Bld) [#/Vol] 10.58 10*3/uL Normal 3.70-11.00 [facility] Comment on above: Order Comment: Speci men Type: BLOOD SPECIMENOrdering Facility: [facility] Address: [address] [place], [place] [address] Performed By: #### 5 7021-8 ####[facility] BEACHWNCLIA [id number] [place] [address] [place] CNOVSPon 11-23-2023 CNOVSP Normal [facility] CNPNon 11-23-2023 CNPN Normal [facility] Comprehensive metabolic 2000 panelon 11-23-2023 Albumin [Mass/Vol] 3.7 g/dL Low 3.9-4.9 [facility] Comment on above: Order Comment: Speci men Type: BLOOD SPECIMENOrdering Facility: [facility] Address: [address] [place] [address] Performed By: #### 2 4323-8, 2532-0 ####[facility] [id number] [place] [address] [place] ALP [Catalytic activity/Vol] 113 U/L Normal 38-113 [facility] Comment on above: Order Comment: Speci men Type: BLOOD SPECIMENOrdering Facility: [facility] Address: [address] [place] [address] Performed By: #### 2 4323-8, 2532-0 ####[facility]IALRONAKLIA [id number] [place] [address] [place] ALT [Catalytic activity/Vol] 17 U/L Normal 10-54 [facility] Comment on above: Order Comment: Speci men Type: BLOOD SPECIMENOrdering Facility: [facility] Address: [address] [place] [address] Performed By: #### 2 4323-8, 2532-0 ####[facility]IALRONAKLIA [id number] [place] [address] [place] Anion gap [Moles/Vol] 11 mmol/L Normal 8-15 [facility] Comment on above: Order Comment: Speci men Type: BLOOD SPECIMENOrdering Facility: [facility] Address: [address] [place] [address] Performed By: #### 2 4323-8, 2531-0 ####[facility] MILLTOWNCLIA [id number] [place] [address] [place] AST [Catalytic activity/Vol] 15 U/L Normal 14-40 [facility] Comment on above: Order Comment: Speci men Type: BLOOD SPECIMENOrdering Facility: [facility] Address: [address] [place] [address] Performed By: #### 2 432-8, 2531-0 ####[facility] MILLTOWNCLIA [id number] [place] [address] [place] Bilirubin [Mass/Vol] 0.4 mg/dL Normal 0.2-1.3 [facility] Comment on above: Order Comment: Speci men Type: BLOOD SPECIMENOrdering Facility: [facility] Address: [address] [place] [address] Performed By: #### 2 4328, 2531-0 ####[facility] MILLTOWNCLIA [id number] [place] [address] [place] Calcium [Mass/Vol] 9.2 mg/dL Normal 8.5-10.2 [facility] Comment on above: Order Comment: Speci men Type: BLOOD SPECIMENOrdering Facility: [facility] Address: [address] [place] [address] Performed By: #### 2 4323-8, 2531-0 ####[facility] MILLTOWNCLIA [id number] [place] [address] [place] Chloride [Moles/Vol] 102 mmol/L Normal 98-107 [facility] Comment on above: Order Comment: Speci men Type: BLOOD SPECIMENOrdering Facility: [facility] Address: [address] [place] [address] Performed By: #### 2 4323-8, 2531-0 ####[facility] MILLTOWNCLIA [id number] [place] [address] [place] CO2 [Moles/Vol] 26 mmol/L Normal 22-30 [facility] Comment on above: Order Comment: Speci men Type: BLOOD SPECIMENOrdering Facility: [facility] Address: [address] [place] [address] Performed By: #### 2 4323-8, 2531-0 ####[facility] [id number] [place] [address] [place] Creatinine [Mass/Vol] 0.79 mg/dL Normal 0.73-1.22 [facility] Comment on above: Order Comment: Speci men Type: BLOOD SPECIMENOrdering Facility: [facility] Address: [address] [place] [address] Performed By: #### 2 4323-8, 0 ####[facility] [id number] [place] [address] [place] Creatinine and Glomerular filtration rate.predicted panel (S/P/Bld) 95 mL/min/1.73m??? Normal >=60 [facility] Comment on above: Order Comment: Speci men Type: BLOOD SPECIMENOrdering Facility: [facility] Address: [address] [place] [address] Result Comment: Kimberley mated Glomerular Filtration Rate (eGFR) is calculated using the 2020 CKD-EPI creatinine equation. This equation utilizes serum creatinine, sex, and age as parameters. The creatinine assay has traceable calibration to isotope dilution-mass spectrometry. Refer to KDIGO guidelines for clinical interpretation. In patients with unstable renal function, e.g. those with acute kidney injury, the eGFR may not accurately reflect actual GFR. Performed By: #### 2 4323-8, 2531-0 ####[facility] [id number] [place] [address] [place] Glucose [Mass/Vol] 147 mg/dL High 74-99 [facility] Comment on above: Order Comment: Mila pichardo Type: BLOOD SPECIMENOrdering Facility: [facility] Address: [address] [place], [place] [id number] Result Comment: The [place] [employer] (ADA) provides guidance for cutoff values for fasting glucose and random glucose. The ADA defines fasting as no caloric intake for at least 8 hours. Fasting plasma glucose results between 100 to 125 mg/dL indicate increased risk for diabetes (prediabetes).Fasting plasma glucose results greater than or equal to 126 mg/dL meet the criteria for diagnosis of diabetes. In the absence of unequivocal hyperglycemia, results should be confirmed by repeat testing. In a patient with classic symptoms of hyperglycemia or hyperglycemic crisis, random plasma glucose results greater than or equal to 200 mg/dL meet the criteria for diagnosis of diabetes.Reference: Standards of Medical Care in Diabetes 2016, [place] [employer]. Diabetes Care. 2016.39(Suppl 1). Performed By: #### 2 4323-8, 2532-0 ####[facility] [id number] [place] [address] [place] Potassium [Moles/Vol] 4.3 mmol/L Normal 3.7-5.1 [facility] Comment on above: Order Comment: Mila pichardo Type: BLOOD SPECIMENOrdering Facility: [facility] Address: [address] [place] [address] Performed By: #### 2 4323-8, 253-0 ####[facility] MEM[facility]IALELSI [id number] [place] [address] [place] Protein [Mass/Vol] 6.1 g/dL Low 6.3-8.0 [facility] Comment on above: Order Comment: Mila pichardo Type: BLOOD SPECIMENOrdering Facility: [facility] Address: [address] [place], [place] [address] Performed By: #### 2 4323-8, 2532-0 ####[facility] [id number] [place] [address] [place] Sodium [Moles/Vol] 139 mmol/L Normal 136-144 [facility] Comment on above: Order Comment: Speci men Type: BLOOD SPECIMENOrdering Facility: [facility] Address: [address] [place] [address] Performed By: #### 2 4323-8, 0 ####[facility] [id number] [address] [place] Urea nitrogen [Mass/Vol] 20 mg/dL Normal 9-24 [facility] Comment on above: Order Comment: Speci men Type: BLOOD SPECIMENOrdering Facility: [facility] Address: [address] [place] [address] Performed By: #### 2 4323-8, 0 ####[facility] [id number] [place] [address] [place] IMMUNOFIXATION SCREEN, SERUM on 11-23-2023 INTERPRETATION (MPA) Normal [facility] Comment on above: Order Comment: Speci men Type: BLOOD SPECIMENOrdering Facility: [facility] Address: [address] [place] [address] Result Comment: Two sets of atypical restricted bands are present in the specimen, one in the IgA and lambda lanes and the other in the IgG and kappa lanes. 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 The location of the IgG kappa band suggests the presence of daratumumab, although one cannot rule out the possibility that this band represents a disease-related monoclonal protein. If clinically required, specific testing for daratumumab may be ordered to confirm the presence of the drug in this patient. Performed By: #### I [facility] ####[facility] LABCLIA [id number] [address] [place] MPA RESULT M protein is present. Abnormal No M protein is identified. [facility] Comment on above: Order Comment: Speci men Type: BLOOD SPECIMENOrdering Facility: [facility] Address: [address] [place] [address] Performed By: #### I FES ####[facility] LABCLIA [id number] [place] [address] [place] STAFF REVIEW (MPA) Reviewed by Bianka Rdz MD Normal [facility] Comment on above: Order Comment: Speci men Type: BLOOD SPECIMENOrdering Facility: [facility] Address: [address] [place] [address] Performed By: #### I [facility] ####[facility] LABCLIA [id number] [place] [address] [place] IMMUNOGLOBULINS,IGG,IGA,IGMo n 11-23-2023 IgA [Mass/Vol] 44 mg/dL Low 70-400 [facility] Comment on above: Order Comment: Speci men Type: BLOOD SPECIMENOrdering Facility: [facility] Address: [address] [place] [address] Performed By: #### S ERIMM ####[facility] LABCLIA [id number] [place] [address] [place] IgG [Mass/Vol] 432 mg/dL Low 700-1600 [facility] Comment on above: Order Comment: Speci men Type: BLOOD SPECIMENOrdering Facility: [facility] Address: [address] [place] [address] Performed By: #### S ERIMM ####[facility] LABCLIA [id number] [place] [address] [place] IgM [Mass/Vol] 18 mg/dL Low 40-230 [facility] Comment on above: Order Comment: Speci men Type: BLOOD SPECIMENOrdering Facility: [facility] Address: [address] [place] [address] Performed By: #### S ERIMM ####[facility] LABCLIA [id number] [place] [address] [place] KAPPA/RAMIREZ,FREE,SERon 2023 Immunoglobulin light chains.kappa.free (S) [Mass/Vol] 5.4 mg/L Normal 3.3-19.4 [facility] Comment on above: Order Comment: Speci marino Type: BLOOD SPECIMENOrdering Facility: [facility] Address: [address] [place] [address] Result Comment: Rare ly, increased serum free light chains levels may not be detected or accurately quantified due to prozone phenomenon or in high viscosity samples using this immunoturbidimetric assay. Correlation with other laboratory results and clinical findings is recommended.The [place] Free Light Chain was performed using the Binding Site Optilite immunoturbidimetric method. Result obtained with different assay methods or kits cannot be used interchangeably. Performed By: #### K LFRS ####[facility] LABCLIA [id number] [place] [address] [place] Immunoglobulin light chains.kappa/Immunoglobuli n light chains.lambda (S) [Mass ratio] 0.96 Normal 0.26-1.65 [facility] Comment on above: Order Comment: Speci marino Type: BLOOD SPECIMENOrdering Facility: [facility] Address: [address] [place] [address] Performed By: #### K LFRS ####[facility] LABCLIA [id number] [place] [address] [place] Immunoglobulin light chains.lambda.free [Mass/Vol] 5.6 mg/L Low 5.7-26.3 [facility] Comment on above: Order Comment: Mila pichardo Type: BLOOD SPECIMENOrdering Facility: [facility] Address: [address] [place] [address] Result Comment: Rare ly, increased serum free light chains levels may not be detected or accurately quantified due to prozone phenomenon or in high viscosity samples using this immunoturbidimetric assay. Correlation with other laboratory results and clinical findings is recommended.The Lambda Free Light Chain was performed using the Binding Site Optilite immunoturbidimetric method. Result obtained with different assay methods or kits cannot be used interchangeably. Performed By: #### K LFRS ####[facility] LABCLIA [id number] [place] [address] [place] LDH SerPl-cCncon 11-23-2023 LDH [Catalytic activity/Vol] 193 U/L Normal 135-225 [facility] Comment on above: Order Comment: Speci men Type: BLOOD SPECIMENOrdering Facility: [facility] Address: [address] [place] [address] Result Comment: Hemo lysis present. The origin of the hemolysis, in vitro versus an in vivo hemolytic process, cannot be distinguished via this assay alone. In vitro hemolysis may lead to non-physiological (spurious) elevation in lactate dehydrogenase (LDH) results. Theresult should be interpreted in context of the clinical setting and other test results. Suggest reorder as clinically indicated. Performed By: #### 2 4323-8, 2532-0 ####[facility] [id number] [place] [address] [place] MONOCLONAL PROT UR W/INTERPo n 11-23-2023 STAFF REVIEW (UMPA) Reviewed by Bianka Rdz MD [facility] Comment on above: Order Comment: Speci men Type: URINE SPECIMENOrdering Facility: [facility] Address: [address] [place] [address] Performed By: #### U RMPA ####[facility]ITAL[facility] [id number] [place] [address] [place] UMPA RESULT No M protein is identified. Normal No M protein is identified. [facility] Comment on above: Order Comment: Speci men Type: URINE SPECIMENOrdering Facility: [facility] Address: [address] [place] [address] Performed By: #### U RMPA ####[facility]ITALIA [id number] [place] [address] [place] PROTEIN ELECTROPHORESIS SERU M (P)on 11-23-2023 Albumin [Mass/Vol] 3.58 g/dL Normal 3.43-5.41 [facility] Comment on above: Order Comment: Speci men Type: BLOOD SPECIMENOrdering Facility: [facility] Address: [address] [place] [address] Performed By: #### L [id number] ####[facility] LABIA [id number] [place] [address] [place] Alpha 1 globulin Elph [Mass/Vol] 0.33 g/dL Normal 0.18-0.43 [facility] Comment on above: Order Comment: Speci men Type: BLOOD SPECIMENOrdering Facility: [facility] Address: [address] [place] [address] Performed By: #### L [id number] ####[facility] LABIA [id number] [place] [address] [place] Alpha 2 globulin Elph [Mass/Vol] 0.83 g/dL Normal 0.42-0.98 [facility] Comment on above: Order Comment: Speci men Type: BLOOD SPECIMENOrdering Facility: [facility] Address: [address] [place] [address] Performed By: #### L [id number] ####[facility] LABIA [id number] [place] [address] [place] Beta globulin Elph [Mass/Vol] 0.71 g/dL Normal 0.61-1.17 [facility] Comment on above: Order Comment: Speci men Type: BLOOD SPECIMENOrdering Facility: [facility] Address: [address] [place] [address] Performed By: #### L [id number] ####[facility] LABIA [id number] [place] [address] [place] Gamma globulin Elph [Mass/Vol] 0.34 g/dL Low 0.53-1.51 [facility] Comment on above: Order Comment: Speci men Type: BLOOD SPECIMENOrdering Facility: [facility] Address: [address] [place] [address] Performed By: #### L [id number] ####[facility] LABCLIA [id number] [place] [address] [place] INTERPRETATION COMMENT FOR PROTEIN ELECTROPHORESIS See separate immunofixation report for characterization of monoclonal gammopathy. Normal [facility] Comment on above: Order Comment: Speci men Type: BLOOD SPECIMENOrdering Facility: [facility] Address: [address] [place] [address] Performed By: #### L [id number] ####[facility] LABIA [id number] [place] [address] [place] M-PROTEIN LOCATION Gamma Fraction 1 Normal [facility] Comment on above: Order Comment: Speci men Type: BLOOD SPECIMENOrdering Facility: [facility] Address: [address] [place] [address] Performed By: #### L [id number] ####[facility] [id number] [place] [address] [place] Protein Fractions [Interp] An M protein is identified on protein electrophoresis. Abnormal No definitive M protein is identified on protein electrophor esis. [facility] Comment on above: Order Comment: Speci men Type: BLOOD SPECIMENOrdering Facility: [facility] Address: [address] [place] [address] Performed By: #### L [id number] ####[facility] LABIA [id number] [place] [address] [place] Protein.monoclonal Elph [Mass/Vol] 0.11 g/dL High <=0.00 [facility] Comment on above: Order Comment: Speci men Type: BLOOD SPECIMENOrdering Facility: [facility] Address: [address] [place] [address] Performed By: #### L [id number] ####[facility] LABIA [id number] [place] [address] [place] SPE STAFF REVIEW Reviewed by Bianka Rdz MD Normal [facility] Comment on above: Order Comment: Speci men Type: BLOOD SPECIMENOrdering Facility: [facility] Address: [address] [place] [address] Performed By: #### L [id number] ####[facility] LABIA [id number] [place] [address] [place] Prot SerPl-mCncon 11-23-2023 Protein [Mass/Vol] 5.8 g/dL Low 6.3-8.0 [facility] Comment on above: Order Comment: Speci men Type: BLOOD SPECIMENOrdering Facility: [facility] Address: [address] [place] [address] Performed By: #### 2 885-2, 1951-04 ####[facility] [id number] [place] [address] [place] Prot Ur-mCncon 11-23-2023 Protein (U) [Mass/Vol] 8 mg/dL Normal 0-20 Cl [facility] Comment on above: Order Comment: Speci men Type: URINE SPECIMENOrdering Facility: [facility] Address: [address] [place] [address] Performed By: #### 2 888-6 ####[facility] [id number] [place] [address] [place] URINE PROTEIN ELECTROPHORESI S RANDOM (P)on 11-23-2023 Albumin Elph (U) [Mass fraction] 47.82 % Normal [facility] Comment on above: Order Comment: Speci men Type: URINE SPECIMENOrdering Facility: [facility] Address: [address] [place] [address] Performed By: #### L [id number] ####[facility] LABIA [id number] [place] [address] [place] Alpha 1 globulin Elph (U) [Mass fraction] 2.76 % Normal [facility] Comment on above: Order Comment: Speci men Type: URINE SPECIMENOrdering Facility: [facility] Address: [address] [place] [address] Performed By: #### L [id number] ####[facility] LABCLIA [id number] [place] [address] [place] Alpha 2 globulin Elph (U) [Mass fraction] 20.55 % Normal [facility] Comment on above: Order Comment: Speci men Type: URINE SPECIMENOrdering Facility: [facility] Address: [address] [place] [address] Performed By: #### L [id number] ####[facility] LABIA [id number] [place] [address] [place] Beta globulin Elph (U) [Mass fraction] 19.94 % Normal [facility] Comment on above: Order Comment: Speci men Type: URINE SPECIMENOrdering Facility: [facility] Address: [address] [place] [address] Performed By: #### L [id number] ####[facility] LABIA [id number] [place] [address] [place] Gamma globulin Elph (U) [Mass fraction] 8.93 % Normal [facility] Comment on above: Order Comment: Speci men Type: URINE SPECIMENOrdering Facility: [facility] Address: [address] [place] [address] Performed By: #### L [id number] ####[facility] LABIA [id number] [place] [address] [place] Protein Fractions Elph Shalom (U) [Interp] No definitive M protein is identified on protein electrophoresis. Normal No definitive M protein is identified on protein electrophor esis. [facility] Comment on above: Order Comment: Speci men Type: URINE SPECIMENOrdering Facility: [facility] Address: [address] [place] [address] Performed By: #### L [id number] ####[facility] LABCLIA [id number] [place] [address] [place] STAFF REVIEW (URINE ELECTRO) Reviewed by Bianka Rdz MD Normal [facility] Comment on above: Order Comment: Speci men Type: URINE SPECIMENOrdering Facility: [facility] Address: [address] [place] [address] Performed By: #### L [id number] ####[facility] LABIA [id number] [place] [address] [place] Urinalysis complete panel (U )on 11-23-2023 Bacteria LM.HPF (Urine sed) [#/Area] Negative Normal Negative [facility] Comment on above: Order Comment: Speci men Type: URINE SPECIMENOrdering Facility: [facility] Address: [address] [place] [address] Performed By: #### 2 4356-8 ####[facility] LABIA [id number] [place] [address] [place] Bilirubin Ql (U) Negative Normal Negative [facility] Comment on above: Order Comment: Speci men Type: URINE SPECIMENOrdering Facility: [facility] Address: [address] [place] [address] Performed By: #### 2 4356-8 ####[facility] LABIA [id number] [place] [address] [place] Clarity (Unsp spec) Clear Normal Clear [facility] Comment on above: Order Comment: Speci men Type: URINE SPECIMENOrdering Facility: [facility] Address: [address] [place] [address] Performed By: #### 2 4356-8 ####[facility] LABIA [id number] [place] [address] [place] Color (U) Yellow Normal Yellow [facility] Comment on above: Order Comment: Speci men Type: URINE SPECIMENOrdering Facility: [facility] Address: [address] [place] [address] Performed By: #### 2 4356-8 ####[facility] LABCLIA [id number] [place] [address] [place] Epithelial cells LM.HPF (Urine sed) [#/Area] None Seen Normal [facility] Comment on above: Order Comment: Speci men Type: URINE SPECIMENOrdering Facility: [facility] Address: [address] [place] [address] Performed By: #### 2 4356-8 ####[facility] LABCLIA [id number] [place] [address] [place] Glucose Test strip (U) [Mass/Vol] 3+ Abnormal Negative [facility] Comment on above: Order Comment: Speci men Type: URINE SPECIMENOrdering Facility: [facility] Address: [address] [place] [address] Performed By: #### 2 4356-8 ####[facility] LABCLIA [id number] [place] [address] [place] Hemoglobin Ql (U) Negative Normal Negative [facility] Comment on above: Order Comment: Speci men Type: URINE SPECIMENOrdering Facility: [facility] Address: [address] [place] [address] Performed By: #### 2 4356-8 ####[facility] LABCLIA [id number] [place] [address] [place] Hyaline casts (Urine sed) [#/Area] 1-3 /LPF Abnormal 0 /LPF [facility] Comment on above: Order Comment: Speci men Type: URINE SPECIMENOrdering Facility: [facility] Address: [address] [place] [address] Performed By: #### 2 4356-8 ####[facility] LABCLIA [id number] [place] [address] [place] Ketones Ql (U) Negative Normal Negative [facility] Comment on above: Order Comment: Speci men Type: URINE SPECIMENOrdering Facility: [facility] Address: [address] [place] [address] Performed By: #### 2 4356-8 ####[facility] LABCLIA [id number] [place] [address] [place] Leukocyte esterase Test strip Ql (U) Negative Normal Negative [facility] Comment on above: Order Comment: Speci men Type: URINE SPECIMENOrdering Facility: [facility] Address: [address] [place] [address] Performed By: #### 2 4356-8 ####[facility] LABCLIA [id number] [place] [address] [place] Nitrite Ql (U) Negative Normal Negative [facility] Comment on above: Order Comment: Speci men Type: URINE SPECIMENOrdering Facility: [facility] Address: [address] [place] [address] Performed By: #### 2 4356-8 ####[facility] LABCLIA [id number] [place] [address] [place] pH (U) 5.5 [pH] Normal <8.5 [facility] Comment on above: Order Comment: Speci men Type: URINE SPECIMENOrdering Facility: [facility] Address: [address] [place] [address] Performed By: #### 2 4356-8 ####[facility] LABCLIA [id number] [place] [address] [place] Protein (U) [Mass/Vol] Negative Normal Negative [facility] Comment on above: Order Comment: Speci men Type: URINE SPECIMENOrdering Facility: [facility] Address: [address] [place] [address] Performed By: #### 2 4356-8 ####[facility] LABCLIA [id number] [place] [address] [place] RBC LM.HPF (Urine sed) [#/Area] 0-2 /HPF Normal 0-2 /HPF [facility] Comment on above: Order Comment: Speci men Type: URINE SPECIMENOrdering Facility: [facility] Address: [address] [place] [address] Performed By: #### 2 4356-8 ####[facility] LABIA [id number] [place] [address] [place] Specific gravity (U) [Rel density] 1.035 High 1.005-1.030 [facility] Comment on above: Order Comment: Speci men Type: URINE SPECIMENOrdering Facility: [facility] Address: [address] [place] [address] Performed By: #### 2 4356-8 ####[facility] [id number] [place] [address] [place] Urobilinogen Ql (U) 0.2 EU/dL Normal 0.2-1.0 EU/dL [facility] Comment on above: Order Comment: Speci men Type: URINE SPECIMENOrdering Facility: [facility] Address: [address] [place] [address] Performed By: #### 2 4356-8 ####[facility] [id number] [place] [address] [place] WBC LM.HPF (Urine sed) [#/Area] 0-5 /HPF Normal 0-5 /HPF [facility] Comment on above: Order Comment: Speci men Type: URINE SPECIMENOrdering Facility: [facility] Address: [address] [place] [address] Performed By: #### 2 4356-8 ####[facility] LABIA [id number] [place] [address] [place] CBC W Auto Differential pane l (Bld)on 11-09-2023 Basophils (Bld) [#/Vol] 0.05 10*3/uL Normal <0.11 [facility] Comment on above: Order Comment: Speci men Type: BLOOD SPECIMENOrdering Facility: [facility] Address: [address] [place] [address] Performed By: #### 5 7021-8 ####[facility]TONA BEACHWNCLIA [id number] [place] [address] [place] Basophils/100 WBC (Bld) 0.5 % Normal [facility] Comment on above: Order Comment: Speci men Type: BLOOD SPECIMENOrdering Facility: [facility] Address: [address] [place] [address] Performed By: #### 5 7021-8 ####[facility] [id number] [place] [address] [place] Differential cell count method Nom (Bld) Auto Normal [facility] Comment on above: Order Comment: Speci men Type: BLOOD SPECIMENOrdering Facility: [facility] Address: [address] [place] [address] Performed By: #### 5 7021-8 ####[facility] [id number] [place] [address] [place] Eosinophils (Bld) [#/Vol] 0.15 10*3/uL Normal <0.46 [facility] Comment on above: Order Comment: Speci men Type: BLOOD SPECIMENOrdering Facility: [facility] Address: [address] [place] [address] Performed By: #### 5 7021-8 ####[facility] [id number] [place] [id number] [place] Eosinophils/100 WBC (Bld) 1.5 % Normal [facility] Comment on above: Order Comment: Speci men Type: BLOOD SPECIMENOrdering Facility: [facility] Address: [address] [place] [address] Performed By: #### 5 7021-8 ####[facility] [id number] [place] [address] [place] Erythrocyte distribution width (RBC) [Ratio] 16.5 % High 11.5-15.0 [facility] Comment on above: Order Comment: Speci men Type: BLOOD SPECIMENOrdering Facility: [facility] Address: [address] [place] [address] Performed By: #### 5 7021-8 ####[facility] [id number] [place] [address] [place] Hematocrit (Bld) [Volume fraction] 43.7 % Normal 39.0-51.0 [facility] Comment on above: Order Comment: Speci men Type: BLOOD SPECIMENOrdering Facility: [facility] Address: [address] [place] [address] Performed By: #### 5 7021-8 ####[facility] [id number] [place] [address] [place] Hemoglobin (Bld) [Mass/Vol] 13.4 g/dL Normal 13.0-17.0 [facility] Comment on above: Order Comment: Speci men Type: BLOOD SPECIMENOrdering Facility: [facility] Address: [address] [place] [address] Performed By: #### 5 7021-8 ####[facility] [id number] [place] [address] [place] Immature granulocytes (Bld) [#/Vol] 0.04 10*3/uL Normal <0.10 [facility] Comment on above: Order Comment: Speci men Type: BLOOD SPECIMENOrdering Facility: [facility] Address: [address] [place] [address] Performed By: #### 5 7021-8 ####[facility] [id number] [place] [address] [place] Immature granulocytes/100 WBC (Bld) 0.4 % Normal [facility] Comment on above: Order Comment: Speci men Type: BLOOD SPECIMENOrdering Facility: [facility] Address: [address] [place] [address] Performed By: #### 5 7021-8 ####[facility] [id number] [place] [address] [place] Lymphocytes (Bld) [#/Vol] 1.75 10*3/uL Normal 1.00-4.0 0 [facility] Comment on above: Order Comment: Speci men Type: BLOOD SPECIMENOrdering Facility: [facility] Address: [address] [place] [address] Performed By: #### 5 7021-8 ####[facility] [id number] [place] [address] [place] Lymphocytes/100 WBC (Bld) 17.0 % Normal [facility] Comment on above: Order Comment: Speci men Type: BLOOD SPECIMENOrdering Facility: [facility] Address: [address] [place] [address] Performed By: #### 5 7021-8 ####[facility]IALNCLI [id number] [place] [address] [place] MCH (RBC) [Entitic mass] 24.9 pg Low 26.0-34.0 [facility] Comment on above: Order Comment: Speci men Type: BLOOD SPECIMENOrdering Facility: [facility] Address: [address] [place] [address] Performed By: #### 5 7021-8 ####[facility] [id number] [place] [address] [place] MCHC (RBC) [Mass/Vol] 30.7 g/dL Normal 30.5-36.0 [facility] Comment on above: Order Comment: Speci men Type: BLOOD SPECIMENOrdering Facility: [facility] Address: [address] [place] [address] Performed By: #### 5 7021-8 ####[facility] YANDELSTEWART [id number] [place] [address] [place] MCV (RBC) [Entitic vol] 81.2 fL Normal 80.0-100.0 [facility] Comment on above: Order Comment: Speci men Type: BLOOD SPECIMENOrdering Facility: [facility] Address: [address] [place] [address] Performed By: #### 5 7021-8 ####[facility] [id number] [place] [address] [place] Monocytes (Bld) [#/Vol] 1.11 10*3/uL High <0.87 [facility] Comment on above: Order Comment: Speci men Type: BLOOD SPECIMENOrdering Facility: [facility] Address: [address] [place] [address] Performed By: #### 5 7021-8 ####[facility] [id number] [place] [address] [place] Monocytes/100 WBC (Bld) 10.8 % Normal [facility] Comment on above: Order Comment: Speci men Type: BLOOD SPECIMENOrdering Facility: [facility] Address: [address] [place] [address] Performed By: #### 5 7021-8 ####[facility]IALNCL[facility] [id number] [place] [address] [place] Neutrophils (Bld) [#/Vol] 7.22 10*3/uL Normal 1.45-7.5 0 [facility] Comment on above: Order Comment: Speci men Type: BLOOD SPECIMENOrdering Facility: [facility] Address: [address] [place], [place] [address] Performed By: #### 5 7021-8 ####[facility] BEACHWRONAKLIA [id number] [place] [address] [place] Neutrophils/100 WBC (Bld) 69.8 % Normal [facility] Comment on above: Order Comment: Speci men Type: BLOOD SPECIMENOrdering Facility: [facility] Address: [address] [place] [address] Performed By: #### 5 7021-8 ####[facility] HOSPITALLIA [id number] [place] [address] [place] Nucleated RBC (Bld) [#/Vol] 10*3/uL Normal <0.01 [facility] Comment on above: Order Comment: Speci men Type: BLOOD SPECIMENOrdering Facility: [facility] Address: [address] [place] [address] Performed By: #### 5 7021-8 ####[facility] [id number] [place] [address] [place] Nucleated RBC/100 WBC (Bld) [Ratio] 0.0 /100 WBC Normal [facility] Comment on above: Order Comment: Speci men Type: BLOOD SPECIMENOrdering Facility: [facility] Address: [address] [place] [address] Performed By: #### 5 7021-8 ####[facility] [id number] [place] [address] [place] Platelet mean volume (Bld) [Entitic vol] 9.6 fL Normal 9.0-12.7 [facility] Comment on above: Order Comment: Speci men Type: BLOOD SPECIMENOrdering Facility: [facility] Address: [address] [place] [address] Performed By: #### 5 7021-8 ####[facility]OS[facility]ITALLI [id number] [place] [address] [place] Platelets (Bld) [#/Vol] 340 10*3/uL Normal 150-400 [facility] Comment on above: Order Comment: Speci men Type: BLOOD SPECIMENOrdering Facility: [facility] Address: [address] [place] [address] Performed By: #### 5 7021-8 ####[facility] MEMORIALNCSUMIA [id number] [place] [address] [place] RBC (Bld) [#/Vol] 5.38 10*6/uL Normal 4.20-6.00 [facility] Comment on above: Order Comment: Speci men Type: BLOOD SPECIMENOrdering Facility: [facility] Address: [address] [place] [address] Performed By: #### 5 7021-8 ####[facility]IALNCL[facility] [id number] [place] [address] [place] WBC (Bld) [#/Vol] 10.32 10*3/uL Normal 3.70-11.00 [facility] Comment on above: Order Comment: Speci men Type: BLOOD SPECIMENOrdering Facility: [facility] Address: [address] [place] [address] Performed By: #### 5 7021-8 ####[facility]IALNCL[facility] [id number] [place] [address] [place] Comprehensive metabolic 2000 panelOrdered By: Radha Jesus on 11-09-2023 Albumin [Mass/Vol] 4.2 g/dL 3.9 - 4.9 g/dL [facility] ALP [Catalytic activity/Vol] 117 U/L High 38 - 113 U/L [facility] ALT [Catalytic activity/Vol] 15 U/L 10 - 54 U/L [facility] Anion gap [Moles/Vol] 14 mmol/L 8 - 15 mmol/L [facility] AST [Catalytic activity/Vol] 14 U/L 14 - 40 U/L [facility] Bilirubin [Mass/Vol] 0.6 mg/dL 0.2 - 1 .3 mg/dL [facility] Calcium [Mass/Vol] 9.0 mg/dL 8.5 - 10. 2 mg/dL [facility] Chloride [Moles/Vol] 102 mmol/L 98 - 10 7 mmol/L [facility] CO2 [Moles/Vol] 28 mmol/L 22 - 30 mmol/L [facility] Creatinine [Mass/Vol] 0.77 mg/dL 0.73 - 1.22 mg/dL [facility] GFR/1.73 sq M.predicted among non-blacks MDRD (S/P/Bld) [Vol rate/Area] 96 mL/min/{1.73_m2} - PINF [facility] Comment on above: Estimated Glomerular Filtration Rate (eGFR) is calculated using the 2020 CKD-EPI creatinine equation. This equation utilizes serum creatinine, sex, and age as parameters. The creatinine assay has traceable calibration to isotope dilution-mass spectrometry. Refer to KDIGO guidelines for clinical interpretation. In patients with unstable renal function, e.g. those with acute kidney injury, the eGFR may not accurately reflect actual GFR. Glucose [Mass/Vol] 79 mg/dL 74 - 99 mg/dL [facility] Comment on above: The [place] Diab[employer] s Association (ADA) provides guidance for cutoff values for fasting glucose and random glucose. The ADA defines fasting as no caloric intake for at least 8 hours. Fasting plasma glucose results between 100 to 125 mg/dL indicate increased risk for diabetes (prediabetes). Fasting plasma glucose results greater than or equal to 126 mg/dL meet the criteria for diagnosis of diabetes. In the absence of unequivocal hyperglycemia, results should be confirmed by repeat testing. In a patient with classic symptoms of hyperglycemia or hyperglycemic crisis, random plasma glucose results greater than or equal to 200 mg/dL meet the criteria for diagnosis of diabetes. Reference: Standards of Medical Care in Diabetes 2016, [place] Diabetes Association. Diabetes Care. 2016.39(Suppl 1). Interpretation and review of laboratory results Abnormal [facility] Potassium [Moles/Vol] 3.9 mmol/L 3.7 - 5.1 mmol/L [facility] Protein [Mass/Vol] 6.4 g/dL 6.3 - 8.0 g/dL [facility] Sodium [Moles/Vol] 144 mmol/L 136 - 144 mmol/L [facility] Urea nitrogen [Mass/Vol] 16 mg/dL 9 - 24 mg/dL [facility] Comprehensive metabolic 2000 panelon 11-09-2023 Albumin [Mass/Vol] 4.2 g/dL Normal 3.9-4.9 [facility] Comment on above: Order Comment: Speci men Type: BLOOD SPECIMENOrdering Facility: [facility] Address: [address] [place] [address] Performed By: #### 2 4323-8 ####[facility] MILLTOWNCLIA [id number] [place] [address] [place] ALP [Catalytic activity/Vol] 117 U/L High 38-113 [facility] Comment on above: Order Comment: Speci men Type: BLOOD SPECIMENOrdering Facility: [facility] Address: [address] [place] [address] Performed By: #### 2 4323-8 ####[facility] BEACHWNCLIA [id number] [place] [address] [place] ALT [Catalytic activity/Vol] 15 U/L Normal 10-54 [facility] Comment on above: Order Comment: Speci men Type: BLOOD SPECIMENOrdering Facility: [facility] Address: [address] [place] [address] Performed By: #### 2 4323-8 ####[facility]IALNCLIA [id number] [place] [address] [place] Anion gap [Moles/Vol] 14 mmol/L Normal 8-15 [facility] Comment on above: Order Comment: Speci men Type: BLOOD SPECIMENOrdering Facility: [facility] Address: [address] [place] [address] Performed By: #### 2 4323-8 ####[facility] BEACHWNCLIA [id number] [place] [address] [place] AST [Catalytic activity/Vol] 14 U/L Normal 14-40 [facility] Comment on above: Order Comment: Speci men Type: BLOOD SPECIMENOrdering Facility: [facility] Address: [address] [place] [address] Performed By: #### 2 4323-8 ####[facility] YANDELSERGEYLIA [id number] [place] [address] [place] Bilirubin [Mass/Vol] 0.6 mg/dL Normal 0.2-1.3 [facility] Comment on above: Order Comment: Speci men Type: BLOOD SPECIMENOrdering Facility: [facility] Address: [address] [place] [address] Performed By: #### 2 4323-8 ####[facility] MEMORIALMARCEA [id number] [place] [address] [place] Calcium [Mass/Vol] 9.0 mg/dL Normal 8.5-10.2 [facility] Comment on above: Order Comment: Speci men Type: BLOOD SPECIMENOrdering Facility: [facility] Address: [address] [place] [address] Performed By: #### 2 4323-8 ####[facility] MEMORIALELSI [id number] [place] [address] [place] Chloride [Moles/Vol] 102 mmol/L Normal 98-107 [facility] Comment on above: Order Comment: Speci men Type: BLOOD SPECIMENOrdering Facility: [facility] Address: [address] [place] [address] Performed By: #### 2 4323-8 ####[facility]IALNCLIA [id number] [place] [address] [place] CO2 [Moles/Vol] 28 mmol/L Normal 22-30 [facility] Comment on above: Order Comment: Speci men Type: BLOOD SPECIMENOrdering Facility: [facility] Address: [address] [place] [address] Performed By: #### 2 4323-8 ####[facility]IALNCLIA [id number] [place] [address] [place] Creatinine [Mass/Vol] 0.77 mg/dL Normal 0.73-1.22 [facility] Comment on above: Order Comment: Speci men Type: BLOOD SPECIMENOrdering Facility: [facility] Address: [address] [place] [address] Performed By: #### 2 4323-8 ####[facility] [id number] [place] [address] [place] Creatinine and Glomerular filtration rate.predicted panel (S/P/Bld) 96 mL/min/1.73m??? Normal >=60 [facility] Comment on above: Order Comment: Mila pichardo Type: BLOOD SPECIMENOrdering Facility: [facility] Address: [address] [place] [address] Result Comment: Kimberley mated Glomerular Filtration Rate (eGFR) is calculated using the 2020 CKD-EPI creatinine equation. This equation utilizes serum creatinine, sex, and age as parameters. The creatinine assay has traceable calibration to isotope dilution-mass spectrometry. Refer to KDIGO guidelines for clinical interpretation. In patients with unstable renal function, e.g. those with acute kidney injury, the eGFR may not accurately reflect actual GFR. Performed By: #### 2 4323-8 ####[facility] HOSPITALLI [id number] [place] [address] [place] Glucose [Mass/Vol] 79 mg/dL Normal 74-99 [facility] Comment on above: Order Comment: Citlalyi marino Type: BLOOD SPECIMENOrdering Facility: [facility] Address: [address] [place] [address] Result Comment: The [place] Diabetes Association (ADA) provides guidance for cutoff values for fasting glucose and random glucose. The ADA defines fasting as no caloric intake for at least 8 hours. Fasting plasma glucose results between 100 to 125 mg/dL indicate increased risk for diabetes (prediabetes).Fasting plasma glucose results greater than or equal to 126 mg/dL meet the criteria for diagnosis of diabetes. In the absence of unequivocal hyperglycemia, results should be confirmed by repeat testing. In a patient with classic symptoms of hyperglycemia or hyperglycemic crisis, random plasma glucose results greater than or equal to 200 mg/dL meet the criteria for diagnosis of diabetes.Reference: Standards of Medical Care in Diabetes 2016, [place] Diabetes Association. Diabetes Care. 2016.39(Suppl 1). Performed By: #### 2 4323-8 ####[facility] MILLWNCLIA [id number] [place] [address] [place] Potassium [Moles/Vol] 3.9 mmol/L Normal 3.7-5.1 [facility] Comment on above: Order Comment: Speci men Type: BLOOD SPECIMENOrdering Facility: [facility] Address: [address] [place] [address] Performed By: #### 2 4323-8 ####[facility] BEACHWMDLIA [id number] [place] [address] [place] Protein [Mass/Vol] 6.4 g/dL Normal 6.3-8.0 [facility] Comment on above: Order Comment: Citlalyi men Type: BLOOD SPECIMENOrdering Facility: [facility] Address: [address] [place] [address] Performed By: #### 2 4323-8 ####[facility] HOSPITALLIA [id number] [place] [address] [place] Sodium [Moles/Vol] 144 mmol/L Normal 136-144 [facility] Comment on above: Order Comment: Speci men Type: BLOOD SPECIMENOrdering Facility: [facility] Address: [address] [place] [address] Performed By: #### 2 4323-8 ####[facility]IALNCLIA [id number] [place] [address] [place] Urea nitrogen [Mass/Vol] 16 mg/dL Normal 9-24 [facility] Comment on above: Order Comment: Speci men Type: BLOOD SPECIMENOrdering Facility: [facility] Address: [facility] [place] [address] Performed By: #### 2 4323-8 ####[facility] HUMPHRIESST[facility]ENNINGS HOSPITALFARAZ [id number] [place] [address] [place] Urinalysis complete panel (U )on 10-12-2023 Bacteria uL uL High Negative uL [facility] Bilirubin Ql (U) Negative Negative [facility] Clarity (Unsp spec) Cloudy Abnormal Clear [facility] Color (U) Yellow Yellow [facility] Epithelial cells LM.HPF (Urine sed) [#/Area] None Seen /HPF [facility] Glucose Test strip (U) [Mass/Vol] 3+ Abnormal Negative [facility] Hemoglobin Ql (U) Trace Abnormal Negative [facility] Hyaline casts (Urine sed) [#/Area] 0 /[LPF] 0 /LPF [facility] Interpretation and review of laboratory results Abnormal [facility] Ketones Ql (U) Negative Negative [facility] Leukocyte esterase Test strip Ql (U) 1+ Abnormal Negative [facility] Nitrite Ql (U) Negative Negative [facility] pH (U) 6.0 [pH] NINF - 8.5 [facility] Protein (U) [Mass/Vol] Trace Abnormal Negative Cl [facility] RBC LM.HPF (Urine sed) [#/Area] 0-2 /HPF 0-2 /HPF [facility] Specific gravity (U) [Rel density] 1.036 High 1.005 - 1.030 [facility] Urobilinogen Ql (U) 0.2 EU/dL 0.2-1.0 EU/dL [facility] WBC LM.HPF (Urine sed) [#/Area] /[HPF] Abnormal 0-5 /HPF [facility] This test was developed and its performance characteristics determined by [facility]'s Joel Lkue [facility] Pathology and Laboratory [address] ([facility]). It has not been cleared or approved by the FDA. [facility] is regulated under CLIA as qualified to perform high-complexity testing. This test is used for clinical purposes. It should not be regarded as investigational or for research. [facility] MR Lumbar spine WO and W con trast Kody 10-10-2023 IMPRESSION: Multilevel degenerative changes as detailed. No high-grade spinal canal stenosis, no high-grade neuroforaminal stenosis, and no apparent nerve root impingement otherwise. No apparent pathologic marrow replacement. Anatomic Thoracic/Lumbar Variant: None. L4-5 is considered the level of the iliac crest and assume there are 5 lumbar-type vertebrae. Wheel Adjuster: PSCB Transcribe Date/Time: Oct 10 2023 12:10P Dictated by : PRESTON BALDWIN MD This examination was interpreted and the report reviewed and electronically signed by: PRESTON BALDWIN MD on Oct 10 2023 12:22PM [facility] DIVISION OF RADIOLOGY * * *Final Report* * * DATE OF EXAM: Oct 10 2023 10:08AM [facility] 0304 - MRI LUMBAR SPINE WO/W IVCON / PROCEDURE REASON: multiple diagnoses * * * * Physician Interpretation * * * * EXAMINATION: MRI LUMBAR SPINE WO/W IVCON Clinical history: As provided by the ordering clinician via order question entries: Metastases: meningeal & bony. Low back pain, cancer suspected. Acute low back pain, unspecified back pain laterality, unspecified whether sciatica present Multiple myeloma not having achieved remission. Stated history: NKI. No sx hx mult. myeloma, pain low back rt side, spasms. TECHNIQUE: Routine lumbosacral spine MR protocol without and with intravenous gadolinium. MQ: [id number] Contrast: IV 20 ml of Dotarem Comparison: 05/03/2023 contrast-enhanced abdomen and pelvis CT RESULT: Counting reference: Lumbosacral junction. For the purposes of this report, L4-5 is considered the level of the iliac crest and there are 5 lumbar-type vertebrae. Anatomic Variants: None. Alignment: Minimal grade 1 anterolisthesis of L3 on L4 and slight retrolisthesis of L5 on S1. Minimal levocurvature centered at L2-L3. Multilevel degenerative disc height loss, most pronounced and moderate to advanced at L5-S1. Bone marrow signal/fracture: Scattered small Schmorl's node type endplate deformities. No evidence of pathologic marrow infiltration or abnormal enhancement. No findings to suggest sequelae of acute or chronic fracture. Conus: Normal in signal and morphology terminating at the level of the upper to mid L1 vertebral body. No abnormal enhancement of the conus or cauda equina nerve roots. Soft tissues: The dorsal paraspinal soft tissues are within normal limits. The paravertebral soft tissues are unremarkable. Imaged portions of the intra-abdominal intrapelvic contents demonstrate no significant findings. T11-T12: Canal and foramina are patent. T12-L1: Canal and foramina are patent. L1-L2: Right central and subarticular disc protrusion with only slight narrowing of the right-sided subarticular zone and no more than mild spinal canal narrowing. Patent neural foramina. L2-L3: Canal and foramina are patent. L3-L4: Minimal anterolisthesis, diffuse disc bulge, and mild bilateral hypertrophic facet arthropathy with ligamentum flavum thickening contributing to mild spinal canal stenosis with bilateral subarticular zone narrowing, but no apparent nerve root impingement, and mild bilateral foraminal stenosis. L4-L5: Disc bulge with superimposed central protrusion with mild bilateral facet arthropathy and ligamentum flavum hypertrophy with no more than mild spinal canal narrowing, bilateral subarticular zone narrowing without apparent nerve root impingement, and no more than mild right and no substantial left foraminal narrowing. L5-S1: Retrolisthesis, disc bulge, endplate osteophyte formation, and facet arthropathy contributing to slightly right subarticular zone narrowing without apparent nerve root impingement, no substantial spinal canal narrowing, and mild left and no substantial right foraminal narrowing. Sacrum and iliac wings: The visualized sacrum and iliac wings are within normal limits. Incidental small mid, left paramedian S2 vertebral body T1-T2 hyperintense, STIR hypointense hemangioma. The presacral soft tissues are normal in appearance. Localizer images: Noncontributory DIVISION OF RADIOLOGY Provider, [facility] - 10/10/2023 * * *Final Report* * * DATE OF EXAM: Oct 10 2023 10:08AM [facility] 0304 - MRI LUMBAR SPINE WO/W IVCON / PROCEDURE REASON: multiple diagnoses * * * * Physician Interpretation * * * * EXAMINATION: MRI LUMBAR SPINE WO/W IVCON Clinical history: As provided by the ordering clinician via order question entries: Metastases: meningeal & bony. Low back pain, cancer suspected. Acute low back pain, unspecified back pain laterality, unspecified whether sciatica present Multiple myeloma not having achieved remission. Stated history: NKI. No sx hx mult. myeloma, pain low back rt side, spasms. TECHNIQUE: Routine lumbosacral spine MR protocol without and with intravenous gadolinium. MQ: [id number] Contrast: IV 20 ml of Dotarem Comparison: 05/03/2023 contrast-enhanced abdomen and pelvis CT RESULT: Counting reference: Lumbosacral junction. For the purposes of this report, L4-5 is considered the level of the iliac crest and there are 5 lumbar-type vertebrae. Anatomic Variants: None. Alignment: Minimal grade 1 anterolisthesis of L3 on L4 and slight retrolisthesis of L5 on S1. Minimal levocurvature centered at L2-L3. Multilevel degenerative disc height loss, most pronounced and moderate to advanced at L5-S1. Bone marrow signal/fracture: Scattered small Schmorl's node type endplate deformities. No evidence of pathologic marrow infiltration or abnormal enhancement. No findings to suggest sequelae of acute or chronic fracture. Conus: Normal in signal and morphology terminating at the level of the upper to mid L1 vertebral body. No abnormal enhancement of the conus or cauda equina nerve roots. Soft tissues: The dorsal paraspinal soft tissues are within normal limits. The paravertebral soft tissues are unremarkable. Imaged portions of the intra-abdominal intrapelvic contents demonstrate no significant findings. T11-T12: Canal and foramina are patent. T12-L1: Canal and foramina are patent. L1-L2: Right central and subarticular disc protrusion with only slight narrowing of the right-sided subarticular zone and no more than mild spinal canal narrowing. Patent neural foramina. L2-L3: Canal and foramina are patent. L3-L4: Minimal anterolisthesis, diffuse disc bulge, and mild bilateral hypertrophic facet arthropathy with ligamentum flavum thickening contributing to mild spinal canal stenosis with bilateral subarticular zone narrowing, but no apparent nerve root impingement, and mild bilateral foraminal stenosis. L4-L5: Disc bulge with superimposed central protrusion with mild bilateral facet arthropathy and ligamentum flavum hypertrophy with no more than mild spinal canal narrowing, bilateral subarticular zone narrowing without apparent nerve root impingement, and no more than mild right and no substantial left foraminal narrowing. L5-S1: Retrolisthesis, disc bulge, endplate osteophyte formation, and facet arthropathy contributing to slightly right subarticular zone narrowing without apparent nerve root impingement, no substantial spinal canal narrowing, and mild left and no substantial right foraminal narrowing. Sacrum and iliac wings: The visualized sacrum and iliac wings are within normal limits. Incidental small mid, left paramedian S2 vertebral body T1-T2 hyperintense, STIR hypointense hemangioma. The presacral soft tissues are normal in appearance. Localizer images: Noncontributory IMPRESSION IMPRESSION: Multilevel degenerative changes as detailed. No high-grade spinal canal stenosis, no high-grade neuroforaminal stenosis, and no apparent nerve root impingement otherwise. No apparent pathologic marrow replacement. Anatomic Thoracic/Lumbar Variant: None. L4-5 is considered the level of the iliac crest and assume there are 5 lumbar-type vertebrae. Wheel Adjuster: AWAIS Transcribe Date/Time: Oct 10 2023 12:10P Dictated by : PRESTON BALDWIN MD This examination was interpreted and the report reviewed and electronically signed by: PRESTON BALDWIN MD on Oct 10 2023 12:22PM EST [facility] Radiology Study observation (narrative) [facility] MR Lumbar spine WO and W con trast IVOrdered By: Ccf Provider on 10-10-2023 [facility] HBV core Ab Ql (S)on Interpretation and review of laboratory results Normal [facility] HBV surface Ab Ql (S)Ordered By: Otoniel Earl on 09-14-2023 HBV surface Ab Qn (S) mIU/mL [facility] Comment on above: <8 mIU/mL: No serolo gical evidence of immunity to Hepatitis B Virus. >/= 8 to <12 mIU/mL: No serological evidence of immunity to Hepatitis B Virus. >/= 12 mIU/mL: Consistent with serological evidence of immunity to Hepatitis B Virus. [facility] HBV surface Ag Ql (S)on 08-24 Interpretation and review of laboratory results Normal [facility] HCV Ab Ql (S)on 09-14-2023 Interpretation and review of laboratory results Normal [facility] HEPATITIS B CORE ANTIBODY TO Deandre 09-14-2023 HBV core Ab Ql (S) Negative Negative [facility] Comment on above: No evidence of curre nt or past infection with Hepatitis B virus. Should recent infection be suspected, repeat testing may be considered 3-4 weeks after this draw. HEPATITIS B SURFACE ANTIBODY Ordered By: Otoniel Earl on 09-14-2023 HBV surface Ab Ql (S) Negative [facility] Comment on above: No serological evide nce of immunity to Hepatitis B Virus. HEPATITIS B SURFACE ANTIGENo n 09-14-2023 HBV surface Ag Ql (S) Negative Negative [facility] HEPATITIS C ANTIBODY IA WITH CONFIRMATIONon 09-14-2023 HCV Ab Ql (S) Negative Negative [facility] Comment on above: The result suggests no evidence of active infection with Hepatitis C virus. Should recent infection be suspected, repeat testing may be considered 4-6 weeks after this draw. Comprehensive metabolic 2000 panelon 07-13-2023 Albumin [Mass/Vol] 3.5 g/dL Low 3.9 - 4.9 g/dL [facility] ALP [Catalytic activity/Vol] 119 U/L High 38 - 113 U/L [facility] ALT [Catalytic activity/Vol] 19 U/L 10 - 54 U/L [facility] Anion gap [Moles/Vol] 10 mmol/L 9 - 18 mmol/L [facility] AST [Catalytic activity/Vol] [facility] Bilirubin [Mass/Vol] 0.3 mg/dL 0.2 - 1 .3 mg/dL [facility] Calcium [Mass/Vol] 8.6 mg/dL 8.5 - 10. 2 mg/dL [facility] Chloride [Moles/Vol] 100 mmol/L 97 - 10 5 mmol/L [facility] CO2 [Moles/Vol] 22 mmol/L 22 - 30 mmol/L [facility] Creatinine [Mass/Vol] 0.62 mg/dL Low 0.73 - 1.22 mg/dL [facility] Estimated Glomerular Filtration Rate 102 mL/min/1.73m >=60 mL/min/1.73 m [facility] Glucose [Mass/Vol] 340 mg/dL High 74 - 99 mg/dL [facility] Potassium [Moles/Vol] 4.8 mmol/L 3.7 - 5.1 mmol/L [facility] Protein [Mass/Vol] 5.7 g/dL Low 6.3 - 8.0 g/dL [facility] Sodium [Moles/Vol] 132 mmol/L Low 136 - 144 mmol/L [facility] Urea nitrogen [Mass/Vol] 20 mg/dL 9 - 24 mg/dL [facility] Basophil percentageOrdered B y: Aleks Silvia on 06-22-2023 Bilirubin [Mass/Vol] 0.60 mg/dL 0.20-1.00 [facility] Comment on above: For patients on eltr ombopag therapy, use of Dimension [place] TBIL is not recommended. Chloride [Moles/Vol] 102 mmol/L 98-107 [facility] Cholesterol [Mass/Vol] 144 mg/dL <200 [facility] Comment on above: <200 mg/dL Desirable 200-240 mg/dL Borderline >240 mg/dL High Risk Glucose [Mass/Vol] 137 mg/dL 74-106 [facility] Comment on above: Fasting Glucose resu lt greater than or equal to 126 mg/dL suggests DIABETES MELLITUS per A.D.A. criteria. Potassium [Moles/Vol] 4.3 mmol/L 3.5-5.1 [facility] Protein [Mass/Vol] 6.8 g/dL 6.4-8.2 [facility] Sodium [Moles/Vol] 137 mmol/L 136-145 [facility] Triglyceride [Mass/Vol] 85 mg/dL <199 [facility] Comment on above: The drugs N-Acetylcy steine and Metamizole may falsely depress this assay.Serum Triglycerides Reference Interval Normal <150 mg/dL Borderline high 150 - 199 mg/dL High 200 - 499 mg/dL Very High > or = 500 mg/dL Laboratory - Chemistry and C hemistry - challengeOrdered By: Aleks Vega on 06-22-2023 Albumin/Globulin [Mass ratio] 1.1 {ratio} 0.9-2.4 [facility] ALP [Catalytic activity/Vol] 145 U/L 45-117 [facility] ALT [Catalytic activity/Vol] 20 U/L 16-61 [facility] Cholesterol in HDL [Mass/Vol] 48 mg/dL >40 [facility] Comment on above: The drugs N-Acetylcy steine and Metamizole may falsely depress this assay. Reference Range HDL <40 mg/dL Low HDL Cholesterol HDL >or= 60 mg/dL High HDL Cholesterol Cholesterol in LDL [Mass/Vol] 79 mg/dL 0-130 [facility] CO2 [Moles/Vol] 26.0 mmol/L 21.0-32.0 [facility] Globulin (S) [Mass/Vol] 3.3 g/dL 2.2-4.2 [facility] Urea nitrogen/Creatinine [Mass ratio] 20.0 mg/mg 10-20 [facility] No Panel InformationOrdered By: Aleks Vega on 06-22-2023 Estimated GFR (MDRD) Amer 107 mL/min >60 [facility] Comment on above: GFR Calc Estimated GFR (MDRD) Non-Af Amer 88 mL/min >60 [facility] Comment on above: Non- GFR Calc Urine Microalbumin/Creatinine Ratio 42.3 mg/g CRE <30 [facility] VLDL Cholesterol 17 mg/dL 5-40 [facility] Serum or plasma calcium yvonne urement (mass/volume)Ordered By: Aleks Vega on 06-22-2023 Calcium [Mass/Vol] 8.9 mg/dL 8.5-10.1 [facility] Serum or plasma creatinine m easurement (mass/volume)Ordered By: Aleks Vega on 06-22-2023 Creatinine [Mass/Vol] 0.90 mg/dL 0.70-1.30 [facility] Comment on above: The validity of the calculated GFR & GFRAA in patients over 70 years has not been determined. Clinical correlation is essential. Serum or plasma thyroid stim ulating hormone (TSH) measurement (units/volume)Ordered By: Aleks Vega on 06-22-2023 TSH Qn 1.28 uIU/mL 0.358-3.74 [facility] Serum or plasma urea nitroge n measurement (mass/volume)Ordered By: Aleks Vega on 06-22-2023 Urea nitrogen [Mass/Vol] 18 mg/dL 7-18 [facility] Thin prep Papanicolaou smear with manual screeningOrdered By: Aleks Vega on 06-22-2023 Thin prep Papanicolaou smear with manual screening 3.5 g/dL 3.2-5.0 [facility] Thin prep Papanicolaou smear with manual screening 14 U/L 15-37 [facility] Thin prep Papanicolaou smear with manual screening 9 5-15 [facility] Thin prep Papanicolaou smear with manual screening 40.3 mg/L NO RANGE EST. [facility] Urine creatinine measurement (mass/volume)Ordered By: Aleks Vega on 06-22-2023 Creatinine (U) [Mass/Vol] 95.30 mg/dL NO RANGE EST. [facility] Whole blood hemoglobin A1c/t otal hemoglobin ratio (mass fraction)Ordered By: Aleks Vega on 06-22-2023 HbA1c (Bld) [Mass fraction] 6.4 % 3.8-5.6 [facility] Comment on above: Normal < 5.7 % Predi abetic 5.7 - 6.4 % Diabetic >or= 6.5 % Please note range changes. Basophil percentageOrdered B y: Leigha Guardado on 06-06-2023 Basophil percentage 3.27 ng/mL 0.0-4.[address] [facility] Comment on above: This test was perfor med using the TPSA assay method for the[employer] chemistry system. Values obtained with differentassay methods cannot be used interchangably.When changing PSA assays in the course of monitoring apatient, additional sequential testing should be carriedout to confirm baseline values. Chloride [Moles/Vol] 105 mmol/L 98-107 [facility] Glucose [Mass/Vol] 77 mg/dL 74-106 [facility] Potassium [Moles/Vol] 4.0 mmol/L 3.5-5.1 [facility] Sodium [Moles/Vol] 140 mmol/L 136-145 [facility] Laboratory - Chemistry and C hemistry - challengeOrdered By: Leigha Guardado on 06-06-2023 CO2 [Moles/Vol] 29.0 mmol/L 21.0-32.0 [facility] Urea nitrogen/Creatinine [Mass ratio] 15.5 mg/mg 10-20 [facility] No Panel InformationOrdered By: Leigha Guardado on 06-06-2023 Estimated GFR (MDRD) Amer 127 mL/min >60 [facility] Comment on above: GFR Calc Estimated GFR (MDRD) Non-Af Amer 105 mL/min >60 [facility] Comment on above: Non- GFR Calc Serum or plasma calcium yvonne urement (mass/volume)Ordered By: Leigha Guardado on 06-06-2023 Calcium [Mass/Vol] 9.7 mg/dL 8.5-10.1 [facility] Serum or plasma creatinine m easurement (mass/volume)Ordered By: Leigha Guardado on 06-06-2023 Creatinine [Mass/Vol] 0.78 mg/dL 0.70-1.30 [facility] Comment on above: The validity of the calculated GFR & GFRAA in patients over 70 years has not been determined. Clinical correlation is essential. Serum or plasma urea nitroge n measurement (mass/volume)Ordered By: Leigha Guardado on 06-06-2023 Urea nitrogen [Mass/Vol] 12 mg/dL 7-18 [facility] Thin prep Papanicolaou smear with manual screeningOrdered By: Leigha Guardado on 06-06-2023 Thin prep Papanicolaou smear with manual screening 6 5-15 [facility] FERRITIN BLDon 05-24-2023 Ferritin [Mass/Vol] 57.8 ng/mL 30.3 - 565.7 ng/mL [facility] Iron and Iron binding capaci ty panelon 05-24-2023 Iron [Mass/Vol] 36 ug/dL Low 41 - 186 ug/dL [facility] Iron binding capacity [Mass/Vol] 313 ug/dL 232 - 386 ug/dL [facility] Iron/TIBC [Molar ratio] 11.5 % Low 15.0 - 57.0 % [facility] 24 hour urine alpha 2 globul in/total protein ratio by electrophoresis (mass fraction)Ordered By: Aleks Vega on 03-21-2023 Alpha 2 globulin Elph (24H U) [Mass fraction] 19.3 % . [facility] 24 hour urine beta globulin/ total protein ratio by electrophoresis (mass fraction)Ordered By: Aleks Vega on 03-21-2023 Beta globulin Elph (24H U) [Mass fraction] 28.2 % . [facility] 24 hour urine gamma globulin /total protein ratio by electrophoresis (mass fraction)Ordered By: Aleks Vega on 03-21-2023 Gamma globulin Elph (24H U) [Mass fraction] 13.1 % . [facility] Basophil percentageOrdered B y: Aleks Vega on 03-21-2023 Basophil percentage 179 mg/dL 74-[address] [facility] Basophil percentage 136 mmol/L 136-[address] [facility] Basophil percentage 3.2 mmol/L 3.5-5.[address] [facility] Basophil percentage 100 mmol/L 98-[address] [facility] Chloride [Moles/Vol] 100 mmol/L 98-107 [facility] Glucose [Mass/Vol] 179 mg/dL 74-106 [facility] Comment on above: Fasting Glucose resu lt greater than or equal to 126 mg/dL suggests DIABETES MELLITUS per A.D.A. criteria. Potassium [Moles/Vol] 3.2 mmol/L 3.5-5.1 [facility] Sodium [Moles/Vol] 136 mmol/L 136-145 [facility] Laboratory - Chemistry and C hemistry - challengeOrdered By: Aleks Vega on 03-21-2023 Albumin [Mass/Vol] 3.0 g/dL 2.9-4.4 [facility] CO2 [Moles/Vol] 32.0 mmol/L 21.0-32.0 [facility] Urea nitrogen/Creatinine [Mass ratio] 13.3 mg/mg 10- [facility] No Panel InformationOrdered By: Aleks Vega on 03-21-2023 Addendum Document Comment . [facility] Comment on above: Faint band in gamma region suspicious for monoclonalimmunoglobulin. This band may represent a benign spike asseen in older people or could be a paraprotein as seen inMultiple Myeloma, Waldenstrom's Macroglobulinemia orLymphoma. Depending on clinical circumstances, furtherdiagnostic studies may include serum immunofixation orserum free light chain quantitation. Fedln-4-Tmggraeso 0.4 g/dL 0.0-0.4 [facility] Nmszk-7-Fyukjnhhz 1.0 g/dL 0.4-1.0 [facility] Estimated GFR (MDRD) Amer 107 mL/min >60 [facility] Comment on above: GFR Calc Estimated GFR (MDRD) Non-Af Amer 89 mL/min >60 [facility] Comment on above: Non- GFR Calc Gamma Globulins 0.7 g/dL 0.4-1.8 [facility] 89 mL/min >60 [facility] 107 mL/min >60 [facility] 13.3 RATIO 10-20 [facility] 32.0 mmol/L 21.0-32.0 [facility] Protein Fractions Elph [Inte rp]Ordered By: Aleks Vega on 03-21-2023 Protein Fractions [Interp] Comment . [facility] Comment on above: Protein electrophore sis scan will follow via computer,mail, or commercial portfolio manager delivery. Serum albumin to globulin ra albert by protein electrophoresisOrdered By: Aleks Vega on 03-21-2023 Albumin/Globulin Elph [Mass ratio] 1.0 0.7-1.7 [facility] Serum globulin measurement ( mass/volume)Ordered By: Aleks Vega on 03-21-2023 Globulin (S) [Mass/Vol] 3.1 g/dL 2.2-3.9 [facility] Serum or plasma beta globuli n measurement by electrophoresis (mass/volume)Ordered By: Aleks Vega on 03-21-2023 Beta globulin Elph [Mass/Vol] 1.0 g/dL 0.7-1.3 [facility] Serum or plasma calcium yvonne urement (mass/volume)Ordered By: Aleks Vega on 03-21-2023 Calcium [Mass/Vol] 8.6 mg/dL 8.5-10.1 [facility] Serum or plasma creatinine m easurement (mass/volume)Ordered By: Aleks Vega on 03-21-2023 Creatinine [Mass/Vol] 0.90 mg/dL 0.70-1.30 [facility] Comment on above: The validity of the calculated GFR & GFRAA in patients over 70 years has not been determined. Clinical correlation is essential. Serum or plasma protein mono clonal measurement by electrophoresis (mass/volume)Ordered By: Aleks Vega on 03-21-2023 Protein.monoclonal Elph [Mass/Vol] Comment: g/dL Not Observed [facility] Comment on above: SPE shows asymmetric al gamma. Serum or plasma urea nitroge n measurement (mass/volume)Ordered By: Aleks Vgea on 03-21-2023 Urea nitrogen [Mass/Vol] 12 mg/dL 7-18 [facility] Thin prep Papanicolaou smear with manual screeningOrdered By: Aleks Vega on 03-21-2023 Thin prep Papanicolaou smear with manual screening 4 5-15 [facility] Total protein bloodOrdered B y: Aleks Vega on 03-21-2023 Protein [Mass/Vol] 6.1 g/dL 6.0-8.5 [facility] Urine albumin/total protein mass ratio by electrophoresisOrdered By: Aleks Vega on 03-21-2023 Albumin Elph (U) [Mass fraction] 27.6 % . [facility] Urine alpha 1 globulin/total protein ratio by electrophoresis (mass fraction)Ordered By: Aleks Vega on 03-21-2023 Alpha 1 globulin Elph (U) [Mass fraction] 11.8 % . [facility] Urine monoclonal protein/tot al protein mass ratio by electrophoresisOrdered By: Aleksjose a Vega on 03-21-2023 Protein.monoclonal Elph (U) [Mass fraction] See comment [facility] Comment on above: NOT OBSERVED Urine protein measurement (m ass/volume)Ordered By: Aleks Vega on 03-21-2023 Protein (U) [Mass/Vol] 11.1 mg/dL Not Estab. [facility] Basophil percentageOrdered B y: Aleks Vega on 03-18-2023 Basophil percentage 128 mg/dL 74-[address] [facility] Basophil percentage 6.8 g/dL 6.4-8.[address] [facility] Basophil percentage 0.40 mg/dL 0.20-1.[address] [facility] Basophil percentage 139 mmol/L 136-[address] [facility] Basophil percentage 3.0 mmol/L 3.5-5.[address] [facility] Basophil percentage 101 mmol/L 98-[address] [facility] Bilirubin [Mass/Vol] 0.40 mg/dL 0.20-1.00 [facility] Comment on above: For patients on eltr ombopag therapy, use of Dimension [place] TBIL is not recommended. Chloride [Moles/Vol] 101 mmol/L 98-107 [facility] Glucose [Mass/Vol] 128 mg/dL 74-106 [facility] Comment on above: Fasting Glucose resu lt greater than or equal to 126 mg/dL suggests DIABETES MELLITUS per A.D.A. criteria. Potassium [Moles/Vol] 3.0 mmol/L 3.5-5.1 [facility] Protein [Mass/Vol] 6.8 g/dL 6.4-8.2 [facility] Sodium [Moles/Vol] 139 mmol/L 136-145 [facility] Final Surgical Pathology Rep andressa 03-18-2023 Final Surgical Pathology Report . Pathology Reports Accession: Collected Date/Time: Received Date/Time: Pathologist: [id number] 03/14/2023 11:09 EST 03/15/2023 07:48 EST NAVYA CALL MD Final Surgical Pathology Report DIAGNOSIS: SIGMOID MASS, BIOPSY: - ADENOCARCINOMA, COLONIC TYPE, AT LEAST INTRAMUCOSAL - MMR PENDING CLINICAL INFORMATION: CHANGE IN BOWELS; ABDOMINAL PAIN Procedure: COLONOSCOPY Preoperative diagnosis: CHANGE IN BOWELS; ABDOMINAL PAIN Postoperative diagnosis: CHANGE IN BOWELS; ABDOMINAL PAIN SPECIMEN: A SIGMOID MASS R/O CARCINOMA; 40 CM GROSS DESCRIPTION: All parts labelled with patient name and [id number] Received in formalin labeled sigmoid mass are multiple vaughn tissue fragments aggregating 0.6 x 0.2 x 0.1 cm. The smallest fragments may not survive processing. TS-1 Verona Dozier, Grossing Information Technology Project Manager/ Dr. Navya Call, Pathologist Dictated by Verona Dozier MICROSCOPIC DESCRIPTION: The microscopic examination is performed, except in the case of Gross Only. Electronically Signed by Pathology Report verified by [facility] NAVYA CALL Sign out Date: 03/18/2023 12:19 Performing Lab: [facility], [address] [place] [address] Pathology Dept Disclaimer If ancillary studies were utilized, the following Laboratory Developed Test (LDT) disclaimer will apply: Under CLIA requirements, [facility] Pathology Laboratory is qualified to perform high complexity testing. For all ancillary stains, positive and negative controls stain appropriately. Performance characteristics of immunohistochemical and chromogenic in-situ hybridization tests have been determined by [facility]ology Laboratory. These tests are used for clinical purposes, They should not be regarded as investigational or for research. Normal On [facility] Laboratory - Chemistry and C hemistry - challengeOrdered By: Aleks Vega on 03-18-2023 ALP [Catalytic activity/Vol] 106 U/L 45-117 [facility] ALT [Catalytic activity/Vol] 21 U/L 16-61 [facility] CO2 [Moles/Vol] 31.0 mmol/L 21.0-32.0 [facility] Globulin (S) [Mass/Vol] 3.9 g/dL 2.2-4.2 [facility] Urea nitrogen/Creatinine [Mass ratio] 18.6 mg/mg 10-20 [facility] No Panel InformationOrdered By: Aleks Vega on 03-18-2023 Estimated GFR (MDRD) Amer 121 mL/min >60 [facility] Comment on above: GFR Calc Estimated GFR (MDRD) Non-Af Amer 100 mL/min >60 [facility] Comment on above: Non- GFR Calc Urine Microalbumin/Creatinine Ratio 173.5 mg/g CRE <30 [facility] 100 mL/min >60 [facility] 121 mL/min >60 [facility] 18.6 RATIO 10-20 [facility] 3.9 g/dL 2.2-4.2 [facility] 106 U/L 45-117 [facility] 21 U/L 16-61 [facility] 31.0 mmol/L 21.0-32.0 [facility] 173.5 mg/g CRE <30 [facility] Serum or plasma albumin yvonne urement (mass/volume)Ordered By: Aleks Vega on 03-18-2023 Albumin [Mass/Vol] 2.9 g/dL 3.2-5.0 [facility] Serum or plasma albumin/glob ulin mass ratioOrdered By: Aleks Vega on 03-18-2023 Albumin/Globulin [Mass ratio] 0.7 {ratio} 0.9-2.4 [facility] Serum or plasma calcium yvonne urement (mass/volume)Ordered By: Aleks Vega on 03-18-2023 Calcium [Mass/Vol] 8.6 mg/dL 8.5-10.1 [facility] Serum or plasma creatinine m easurement (mass/volume)Ordered By: Aleks Vega on 03-18-2023 Creatinine [Mass/Vol] 0.81 mg/dL 0.70-1.30 [facility] Comment on above: The validity of the calculated GFR & GFRAA in patients over 70 years has not been determined. Clinical correlation is essential. Serum or plasma urea nitroge n measurement (mass/volume)Ordered By: Aleks Vega on 03-18-2023 Urea nitrogen [Mass/Vol] 15 mg/dL 7-18 [facility] Thin prep Papanicolaou smear with manual screeningOrdered By: Aleks Vega on 03-18-2023 Thin prep Papanicolaou smear with manual screening 12 U/L 15-37 [facility] Thin prep Papanicolaou smear with manual screening 7 5-15 [facility] Thin prep Papanicolaou smear with manual screening 37.3 mg/L NO RANGE EST. [facility] Urine creatinine measurement (mass/volume)Ordered By: Aleks Vega on 03-18-2023 Creatinine (U) [Mass/Vol] 21.50 mg/dL NO RANGE EST. [facility] Whole blood hemoglobin A1c/t otal hemoglobin ratio (mass fraction)Ordered By: Aleks Vega on 03-18-2023 HbA1c (Bld) [Mass fraction] 7.4 % 3.8-5.6 [facility] Comment on above: Normal < 5.7 % Predi abetic 5.7 - 6.4 % Diabetic >or= 6.5 % Please note range changes. LABORATORYOrdered By: Mendy Hart on 03-14-2023 Glucose [Mass/Vol] 165 mg/dL High 82 - 115 mg/dL [facility] Work Phone: Absolute lymphocyte countOrd ered By: Dru Mayfield on 02-25-2023 Lymphocytes Auto (Unsp spec) [#/Vol] 1.35 10*3/uL 0.83-4.51 [facility] Bacteria identified Cx Nom ( U)Ordered By: Dru Mayfield on 02-25-2023 Culture, urine Pseudomonas aeruginosa [facility] Basophil percentageOrdered B y: Dru Mayfield on 02-25-2023 Basophil percentage 249 mg/dL 74-[address] [facility] Basophil percentage 139 mmol/L 136-[address] [facility] Basophil percentage 4.2 mmol/L 3.5-5.[address] [facility] Basophil percentage 105 mmol/L 98-[address] [facility] Basophils (Bld) [#/Vol] 13.3 10*3/uL 4.4-11.0 [facility] Basophils (Bld) [#/Vol] 10.7 10*3/uL 2.0-7.7 [facility] Basophils/100 WBC (Bld) 0.2 % 0-1 [facility] Basophils/100 WBC (Bld) 81.0 % 47-70 [facility] Basophils/100 WBC (Bld) 0.1 % 0-5 [facility] Chloride [Moles/Vol] 105 mmol/L 98-107 [facility] Eosinophils/100 WBC (Bld) 0.1 % 0-5 [facility] Glucose [Mass/Vol] 249 mg/dL 74-106 [facility] Comment on above: Glucose result great er than or equal to 200 mg/dLsuggests DIABETES MELLITUS per A.D.A. criteria. Neutrophils (Bld) [#/Vol] 10.7 10*3/uL 2.0-7.7 [facility] Neutrophils/100 WBC (Bld) 81.0 % 47-70 [facility] Potassium [Moles/Vol] 4.2 mmol/L 3.5-5.1 [facility] Comment on above: Slight Hemolysis, Re sult may be falsely increased. Sodium [Moles/Vol] 139 mmol/L 136-145 [facility] WBC (Bld) [#/Vol] 13.3 10*3/uL 4.4-11.[address] [facility] Basophil percentage 25-50 SEEN /hpf 0-5 [facility] Bilirubin Test strip Ql (U)O rdered By: Dru Mayfield on 02-25-2023 Bilirubin Ql (U) Negative Negative [facility] Blood erythrocytes count (nu mber/volume)Ordered By: Dru Mayfield on 02-25-2023 RBC (Bld) [#/Vol] 3.90 10*6/uL 4.6-6.[address] [facility] Blood hemoglobin measurement (mass/volume)Ordered By: Dru Mayfield on 02-25-2023 Hemoglobin (Bld) [Mass/Vol] 10.3 g/dL 13.0-16.5 [facility] Blood lymphocytes/100 leukoc ytesOrdered By: Dru Mayfield on 02-25-2023 Lymphocytes/100 WBC (Bld) 10.2 % 19-41 [facility] Blood manual differential co mment interpretation (narrative result)Ordered By: Dru Mayfield on 02-25-2023 Manual differential comment Shalom (Bld) [Interp] SCANNED [facility] Blood monocytes/100 leukocyt esOrdered By: Dru Mayfield on 02-25-2023 Monocytes/100 WBC (Bld) 7.2 % 0-10 [facility] Blood platelet adequacy dete ction by light microscopyOrdered By: Dru Mayfield on 02-25-2023 Platelets LM Ql (Bld) ADEQUATE ADEQ [facility] Culture, urineOrdered By: Devyn Russell on 02-25-2023 Bacteria identified Cx Nom (U) Pseudomonas aeruginosa [facility] Determination of erythrocyte mean corpuscular volume (MCV)Ordered By: Dru Mayfield on 02-25-2023 MCV (RBC) [Entitic vol] 88.2 fL 80-94 [facility] Hematocrit Auto (Bld) [Volum e fraction]Ordered By: Dru Mayfield on 02-25-2023 Hematocrit (Bld) [Volume fraction] 34.4 % 40-54 [facility] Ketones Test strip Ql (U)Ord ered By: Dru Mayfield on 02-25-2023 Ketones Ql (U) Negative Negative [facility] Laboratory - Chemistry and C hemistry - challengeOrdered By: Dru Mayfield on 02-25-2023 CO2 [Moles/Vol] 28.0 mmol/L 21.0-32.0 [facility] Urea nitrogen/Creatinine [Mass ratio] 24.8 mg/mg 10-20 [facility] Laboratory - Hematology and Cell countsOrdered By: Dru Mayfield on 02-25-2023 Erythrocyte distribution width (RBC) [Entitic vol] 52.6 fL 35.1-43.9 [facility] Erythrocyte distribution width (RBC) [Ratio] 16.4 % 11.6-14.6 [facility] Immature granulocytes/100 WBC (Bld) 1.300 % 0.0-0.9 [facility] Comment on above: IG% - Immature Granu locytes (promyelocytes, myelocytes and metamyelocytes) > 1% indicates that a LEFT SHIFT is Present. MCH (RBC) [Entitic mass] 26.4 pg 27.0-32.0 [facility] Nucleated RBC/100 WBC (Bld) [Ratio] 0 % 0-5 [facility] MCHC Auto (RBC) [Mass/Vol]Or dered By: Dru Mayfield on 02-25-2023 MCHC (RBC) [Mass/Vol] 29.9 g/dL 32-36 [facility] Mucus LM Ql (Urine sed)Order ed By: Dru Mayfield on 02-25-2023 Mucus Ql (Urine sed) 0 SEEN /hpf [facility] Nitrite Test strip Ql (U)Ord ered By: Dru Mayfield on 02-25-2023 Nitrite Ql (U) Negative Negative [facility] No Panel InformationOrdered By: Dru Mayfield on 02-25-2023 Estimated GFR (MDRD) Amer 115 mL/min >60 [facility] Comment on above: GFR Calc Estimated GFR (MDRD) Non-Af Amer 95 mL/min >60 [facility] Comment on above: Non- GFR Calc 26.4 pg 27.0-32.0 [facility] 16.4 % 11.6-14.6 [facility] 52.6 fl 35.1-43.9 [facility] 1.300 % 0.0-0.9 [facility] 0 % 0-5 [facility] 95 mL/min >60 [facility] 115 mL/min >60 [facility] 24.8 RATIO 10-20 [facility] 28.0 mmol/L 21.0-32.0 [facility] Platelets bldOrdered By: Neyda Mayfield on 02-25-2023 Platelets (Bld) [#/Vol] See comment 150-450 [facility] Comment on above: Please note: For thi s sample, a platelet estimate is provided rather than a platelet count due to platelet clumping. Other parameters associated with this sample are not affected by platelet clumping. If a more accurate platelet count is required, a redraw of the patient will be necessary. Protein Test strip Ql (U)Ord ered By: Dru Mayfield on 02-25-2023 Protein Ql (U) 30 mg/dl Negative [facility] Serum or plasma calcium yvonne urement (mass/volume)Ordered By: Dru Mayfield on 02-25-2023 Calcium [Mass/Vol] 9.3 mg/dL 8.5-10.1 [facility] Serum or plasma creatinine m easurement (mass/volume)Ordered By: Dru Mayfield on 02-25-2023 Creatinine [Mass/Vol] 0.85 mg/dL 0.70-1.30 [facility] Comment on above: The validity of the calculated GFR & GFRAA in patients over 70 years has not been determined. Clinical correlation is essential. Serum or plasma urea nitroge n measurement (mass/volume)Ordered By: Dru Mayfield on 02-25-2023 Urea nitrogen [Mass/Vol] 21 mg/dL 7-18 [facility] Squamous epithelial cells de tection in urine sediment by light microscopyOrdered By: Dru Mayfield on 02-25-2023 Epithelial cells.squamous LM Ql (Urine sed) 0 SEEN /hpf 0-5 [facility] Thin prep Papanicolaou smear with manual screeningOrdered By: Dru Mayfield on 02-25-2023 Thin prep Papanicolaou smear with manual screening 6 5-15 [facility] Urine blood detectionOrdered By: Dru Mayfield on 02-25-2023 RBC Ql (U) 150 /ul Negative [facility] RBC Ql (U) 0 SEEN /hpf 0-5 [facility] Urine clarityOrdered By: Neyda Mayfield on 02-25-2023 Clarity (U) Clear Clear [facility] Urine color determinationOrd ered By: Dru Mayfield on 02-25-2023 Color (U) Yellow Yellow [facility] Urine glucose detectionOrder ed By: Dru Mayfield on 02-25-2023 Glucose Ql (U) 1000 mg/dl Normal [facility] Urine leukocyte esterase det ection by dipstickOrdered By: Dru Mayfield on 02-25-2023 Leukocyte esterase Test strip Ql (U) 500 /ul Negative [facility] Urine pHOrdered By: Dru palomino on 02-25-2023 pH (U) 6.0 [pH] 5.0 - 8.0 [facility] Urine sediment bacteria coun t by microscopy (number/high power field)Ordered By: Dru Mayfield on 02-25-2023 Bacteria LM.HPF (Urine sed) [#/Area] 1 /[HPF] None Seen [facility] Urine specific gravity measu rementOrdered By: Dru Mayfield on 02-25-2023 Specific gravity (U) [Rel density] 1.010 1.002-1.030 [facility] Urobilinogen Auto test strip Ql (U)Ordered By: Dru Mayfield on 02-25-2023 Urobilinogen Ql (U) Normal mg/dl Normal [facility] Urinalysis complete panel (U )on 02-24-2023 Bacteria LM.HPF (Urine sed) [#/Area] Negative Negative /HPF [facility] Bilirubin Ql (U) Negative Negative [facility] Clarity (Unsp spec) Cloudy Abnormal Clear [facility] Color (U) Yellow Yellow [facility] Epithelial cells LM.HPF (Urine sed) [#/Area] None Seen [facility] Glucose Test strip (U) [Mass/Vol] 3+ Abnormal Negative [facility] Hemoglobin Ql (U) 2+ Abnormal Negative [facility] Hyaline casts (Urine sed) [#/Area] 0 /[LPF] 0 /LPF [facility] Ketones Ql (U) Negative Negative [facility] Leukocyte esterase Test strip Ql (U) 1+ Abnormal Negative [facility] Nitrite Ql (U) Negative Negative [facility] pH (U) 5.5 [pH] <8.5 [facility] Protein (U) [Mass/Vol] 1+ Abnormal Negative Cl [facility] RBC LM.HPF (Urine sed) [#/Area] 11-20 /HPF Abnormal 0-2 /HPF [facility] Specific gravity (U) [Rel density] 1.038 High 1.005 - 1.030 [facility] Urobilinogen Ql (U) 0.2 EU/dL 0.2-1.0 EU/dL [facility] WBC LM.HPF (Urine sed) [#/Area] /[HPF] Abnormal 0-5 /HPF [facility] Absolute lymphocyte countOrd ered By: Janes Pennington on 02-03-2023 Lymphocytes Auto (Unsp spec) [#/Vol] 1.11 10*3/uL 0.83-4.51 [facility] Basophil percentageOrdered B y: Janes Pennington on 02-03-2023 Basophil percentage 123 mg/dL 74-[address] [facility] Basophil percentage 134 mmol/L 136-[address] [facility] Basophil percentage 3.8 mmol/L 3.5-5.[address] [facility] Basophil percentage 102 mmol/L 98-[address] [facility] Basophils (Bld) [#/Vol] 14.0 10*3/uL 4.4-11.0 [facility] Basophils (Bld) [#/Vol] 11.8 10*3/uL 2.0-7.7 [facility] Basophils/100 WBC (Bld) 0.1 % 0-1 [facility] Basophils/100 WBC (Bld) 84.3 % 47-70 [facility] Basophils/100 WBC (Bld) 0.3 % 0-5 [facility] Chloride [Moles/Vol] 102 mmol/L 98-107 [facility] Eosinophils/100 WBC (Bld) 0.3 % 0-5 [facility] Glucose [Mass/Vol] 123 mg/dL 74-106 [facility] Comment on above: Fasting Glucose resu lt from 100 to 125 mg/dL suggests IMPAIRED HOMEOSTASIS per A.D.A. criteria. Neutrophils (Bld) [#/Vol] 11.8 10*3/uL 2.0-7.7 [facility] Neutrophils/100 WBC (Bld) 84.3 % 47-70 [facility] Potassium [Moles/Vol] 3.8 mmol/L 3.5-5.1 [facility] Sodium [Moles/Vol] 134 mmol/L 136-145 [facility] WBC (Bld) [#/Vol] 14.0 10*3/uL 4.4-11.[address] [facility] Blood erythrocytes count (nu mber/volume)Ordered By: Janes Pennington on 02-03-2023 RBC (Bld) [#/Vol] 3.47 10*6/uL 4.6-6.[address] [facility] Blood hemoglobin measurement (mass/volume)Ordered By: Janes Pennington on 02-03-2023 Hemoglobin (Bld) [Mass/Vol] 9.2 g/dL 13.0-16.5 [facility] Blood lymphocytes/100 leukoc ytesOrdered By: Janes Pennington on 02-03-2023 Lymphocytes/100 WBC (Bld) 8.0 % 19-41 [facility] Blood monocytes/100 leukocyt esOrdered By: Janes Pennington on 02-03-2023 Monocytes/100 WBC (Bld) 6.7 % 0-10 [facility] Blood platelet mean volumeOr dered By: Janes Pennington on 02-03-2023 Platelet mean volume (Bld) [Entitic vol] 9.9 fL 6.2-12.0 [facility] Determination of erythrocyte mean corpuscular volume (MCV)Ordered By: Janes Pennington on 02-03-2023 MCV (RBC) [Entitic vol] 87.9 fL 80-94 [facility] Glucose Glucometer (BldC) [M ass/Vol]Ordered By: Arvind Haynes on 02-03-2023 Glucose [Mass/Vol] 150 mg/dL 74-106 [facility] Comment on above: MANAGEMENT OF PATIEN T CARE PER NURSING PROTOCOL Hematocrit Auto (Bld) [Volum e fraction]Ordered By: Janes Pennington on 02-03-2023 Hematocrit (Bld) [Volume fraction] 30.5 % 40-54 [facility] Laboratory - Chemistry and C hemistry - challengeOrdered By: Janes Pennington on 02-03-2023 CO2 [Moles/Vol] 27.0 mmol/L 21.0-32.0 [facility] Urea nitrogen/Creatinine [Mass ratio] 17.2 mg/mg 10-20 [facility] Laboratory - Hematology and Cell countsOrdered By: Janes Pennington on 02-03-2023 Erythrocyte distribution width (RBC) [Entitic vol] 59.0 fL 35.1-43.9 [facility] Erythrocyte distribution width (RBC) [Ratio] 18.2 % 11.6-14.6 [facility] Immature granulocytes/100 WBC (Bld) 0.600 % 0.0-0.9 [facility] Comment on above: IG% - Immature Granu locytes (promyelocytes, myelocytes and metamyelocytes) > 1% indicates that a LEFT SHIFT is Present. MCH (RBC) [Entitic mass] 26.5 pg 27.0-32.0 [facility] Nucleated RBC/100 WBC (Bld) [Ratio] 0 % 0-5 [facility] MCHC Auto (RBC) [Mass/Vol]Or dered By: Janes Pennington on 02-03-2023 MCHC (RBC) [Mass/Vol] 30.2 g/dL 32-36 [facility] No Panel InformationOrdered By: Janes Pennington on 02-03-2023 Estimated Creatinine Clearance Calc 83.82 ml/min [facility] Estimated GFR (MDRD) Amer 120 mL/min >60 [facility] Comment on above: GFR Calc Estimated GFR (MDRD) Non-Af Amer 99 mL/min >60 [facility] Comment on above: Non- GFR Calc 26.5 pg 27.0-32.0 [facility] 18.2 % 11.6-14.6 [facility] 59.0 fl 35.1-43.9 [facility] 0.600 % 0.0-0.9 [facility] 0 % 0-5 [facility] 99 mL/min >60 [facility] 120 mL/min >60 [facility] 83.82 ml/min [facility] 17.2 RATIO 10-20 [facility] 27.0 mmol/L 21.0-32.0 [facility] Platelets bldOrdered By: Jeb Pennington on 02-03-2023 Platelets (Bld) [#/Vol] 336 10*3/uL 150-450 [facility] Serum or plasma calcium yvonne urement (mass/volume)Ordered By: Janes Pennington on 02-03-2023 Calcium [Mass/Vol] 8.2 mg/dL 8.5-10.1 [facility] Serum or plasma creatinine m easurement (mass/volume)Ordered By: Janes Pennington on 02-03-2023 Creatinine [Mass/Vol] 0.82 mg/dL 0.70-1.30 [facility] Comment on above: The validity of the calculated GFR & GFRAA in patients over 70 years has not been determined. Clinical correlation is essential. Serum or plasma urea nitroge n measurement (mass/volume)Ordered By: Janes Pennington on 02-03-2023 Urea nitrogen [Mass/Vol] 14 mg/dL 7-18 [facility] Thin prep Papanicolaou smear with manual screeningOrdered By: Janes Pennington on 02-03-2023 Thin prep Papanicolaou smear with manual screening 5 5-15 [facility] Basophil percentageOrdered B y: Omid Beckman on 02-01-2023 Basophil percentage 214 mg/dL 74-[address] [facility] Basophil percentage 135 mmol/L 136-[address] [facility] Basophil percentage 3.5 mmol/L 3.5-5.[address] [facility] Basophil percentage 100 mmol/L 98-[address] [facility] Basophils (Bld) [#/Vol] 12.6 10*3/uL 4.4-11.0 [facility] Chloride [Moles/Vol] 100 mmol/L 98-107 [facility] Glucose [Mass/Vol] 214 mg/dL 74-106 [facility] Comment on above: Glucose result great er than or equal to 200 mg/dLsuggests DIABETES MELLITUS per A.D.A. criteria. Potassium [Moles/Vol] 3.5 mmol/L 3.5-5.1 [facility] Sodium [Moles/Vol] 135 mmol/L 136-145 [facility] WBC (Bld) [#/Vol] 12.6 10*3/uL 4.4-11.[address] [facility] Blood erythrocytes count (nu mber/volume)Ordered By: Omid Beckman on 02-01-2023 RBC (Bld) [#/Vol] 3.90 10*6/uL 4.6-6.[address] [facility] Blood hemoglobin measurement (mass/volume)Ordered By: Omid Beckman on 02-01-2023 Hemoglobin (Bld) [Mass/Vol] 10.1 g/dL 13.0-16.5 [facility] Blood platelet mean volumeOr dered By: Omid Beckman on 02-01-2023 Platelet mean volume (Bld) [Entitic vol] 10.2 fL 6.2-12.0 [facility] Determination of erythrocyte mean corpuscular volume (MCV)Ordered By: Omid Beckman on 02-01-2023 MCV (RBC) [Entitic vol] 87.7 fL 80-94 [facility] Hematocrit Auto (Bld) [Volum e fraction]Ordered By: Omid Beckman on 02-01-2023 Hematocrit (Bld) [Volume fraction] 34.2 % 40-54 [facility] Laboratory - Chemistry and C hemistry - challengeOrdered By: Omid Beckman on 02-01-2023 CO2 [Moles/Vol] 27.0 mmol/L 21.0-32.0 [facility] Urea nitrogen/Creatinine [Mass ratio] 13.2 mg/mg 02-11 [facility] Laboratory - Hematology and Cell countsOrdered By: Omid Beckman on 02-01-2023 Erythrocyte distribution width (RBC) [Entitic vol] 61.4 fL 35.1-43.9 [facility] Erythrocyte distribution width (RBC) [Ratio] 19.1 % 11.6-14.6 [facility] MCH (RBC) [Entitic mass] 25.9 pg 27.0-32.0 [facility] MCHC Auto (RBC) [Mass/Vol]Or dered By: Omid Beckman on 02-01-2023 MCHC (RBC) [Mass/Vol] 29.5 g/dL 32-36 [facility] No Panel InformationOrdered By: Omid Beckman on 02-01-2023 Estimated GFR (MDRD) Amer 96 mL/min >60 [facility] Comment on above: GFR Calc Estimated GFR (MDRD) Non-Af Amer 79 mL/min >60 [facility] Comment on above: Non- GFR Calc 25.9 pg 27.0-32.0 [facility] 19.1 % 11.6-14.6 [facility] 61.4 fl 35.1-43.9 [facility] 79 mL/min >60 [facility] 96 mL/min >60 [facility] 13.2 RATIO 02-11 [facility] 27.0 mmol/L 21.0-32.0 [facility] Platelets bldOrdered By: Omid Beckman on 02-01-2023 Platelets (Bld) [#/Vol] 412 10*3/uL 150-450 [facility] Serum or plasma calcium yvonne urement (mass/volume)Ordered By: Omid Beckman on 02-01-2023 Calcium [Mass/Vol] 8.8 mg/dL 8.5-10.1 [facility] Serum or plasma creatinine m easurement (mass/volume)Ordered By: Omid Beckman on 02-01-2023 Creatinine [Mass/Vol] 0.99 mg/dL 0.70-1.30 [facility] Comment on above: The validity of the calculated GFR & GFRAA in patients over 70 years has not been determined. Clinical correlation is essential. Serum or plasma urea nitroge n measurement (mass/volume)Ordered By: Omid Beckman on 02-01-2023 Urea nitrogen [Mass/Vol] 13 mg/dL 7-18 [facility] Thin prep Papanicolaou smear with manual screeningOrdered By: Omid Beckman on 02-01-2023 Thin prep Papanicolaou smear with manual screening 8 5-15 [facility] Whole blood hemoglobin A1c/t otal hemoglobin ratio (mass fraction)Ordered By: Omid Beckman on 02-01-2023 HbA1c (Bld) [Mass fraction] 6.9 % 3.8-5.6 [facility] Comment on above: Normal < 5.7 % Predi abetic 5.7 - 6.4 % Diabetic >or= 6.5 % Please note range changes. Bacteria identified Cx Nom ( U)Ordered By: Arvind Haynes on 01-04-2023 Culture, urine Acinetobacter baumannii [facility] Culture, urineOrdered By: Tere Haynes on 01-04-2023 Bacteria identified Cx Nom (U) Acinetobacter baumannii [facility] Culture, urineOrdered By: Tere Haynes on 01-03-2023 Bacteria identified Cx Nom (U) Acinetobacter baumannii [facility] No Panel InformationOrdered By: Arvind Haynes on 01-03-2023 Prostate Specific Antigen Screen 22.50 ng/mL 0.00-4.00 [facility] Comment on above: This test was perfor med using the TPSA assay method for the[employer] chemistry system. Values obtained with differentassay methods cannot be used interchangably.When changing PSA assays in the course of monitoring apatient, additional sequential testing should be carriedout to confirm baseline values. 22.50 ng/mL 0.00-4.00 [facility] Iron and Iron binding capaci ty panelon 12-31-2022 Iron [Mass/Vol] 26 ug/dL Low 41 - 186 ug/dL [facility] Iron binding capacity [Mass/Vol] 304 ug/dL 232 - 386 ug/dL [facility] Iron/TIBC [Molar ratio] 8.6 % Low 15.0 - 57.0 % [facility] FERRITIN BLDon 12-30-2022 Ferritin [Mass/Vol] 102.0 ng/mL 30.3 - 565.7 ng/mL [facility] Basophil percentageOrdered B y: ED PROVIDER on 12-24-2022 Basophil percentage 0 SEEN /hpf 0-5 [facility] Bilirubin Test strip Ql (U)O rdered By: ED PROVIDER on 12-24-2022 Bilirubin Ql (U) Negative Negative [facility] Ketones Test strip Ql (U)Ord ered By: ED PROVIDER on 12-24-2022 Ketones Ql (U) Negative Negative [facility] Mucus LM Ql (Urine sed)Order ed By: ED PROVIDER on 12-24-2022 Mucus Ql (Urine sed) 0 SEEN /hpf [facility] Nitrite Test strip Ql (U)Ord ered By: ED PROVIDER on 12-24-2022 Nitrite Ql (U) Negative Negative [facility] Protein Test strip Ql (U)Ord ered By: ED PROVIDER on 12-24-2022 Protein Ql (U) 15 mg/dl Negative [facility] Squamous epithelial cells de tection in urine sediment by light microscopyOrdered By: ED PROVIDER on 12-24-2022 Epithelial cells.squamous LM Ql (Urine sed) 0 SEEN /hpf 0-5 [facility] Urine blood detectionOrdered By: ED PROVIDER on 12-24-2022 RBC Ql (U) Negative Negative [facility] RBC Ql (U) 0 SEEN /hpf 0-5 [facility] Urine clarityOrdered By: ED PROVIDER on 12-24-2022 Clarity (U) Clear Clear [facility] Urine color determinationOrd ered By: ED PROVIDER on 12-24-2022 Color (U) Yellow Yellow [facility] Urine glucose detectionOrder ed By: ED PROVIDER on 12-24-2022 Glucose Ql (U) 250 mg/dl Normal [facility] Urine leukocyte esterase det ection by dipstickOrdered By: ED PROVIDER on 12-24-2022 Leukocyte esterase Test strip Ql (U) Negative Negative [facility] Urine pHOrdered By: ED PROVI DARÍO on 12-24-2022 pH (U) 7.0 [pH] 5.0 - 8.0 [facility] Urine sediment bacteria coun t by microscopy (number/high power field)Ordered By: ED PROVIDER on 12-24-2022 Bacteria LM.HPF (Urine sed) [#/Area] 0 /[HPF] None Seen [facility] Urine specific gravity measu rementOrdered By: ED PROVIDER on 12-24-2022 Specific gravity (U) [Rel density] 1.010 1.002-1.030 [facility] [facility] Urobilinogen Auto test strip Ql (U)Ordered By: ED PROVIDER on 12-24-2022 Urobilinogen Ql (U) 1 mg/dl Normal [facility] Basophil percentageOrdered B y: Jackie Rose on 12-20-2022 Basophil percentage 3.6 mmol/L 3.5-5.[address] [facility] Potassium [Moles/Vol] 3.6 mmol/L 3.5-5.1 [facility] Basophil percentageOrdered B y: Preston Fernandovirginialv on 12-20-2022 Basophil percentage 108 mg/dL 74-[address] [facility] Basophil percentage 134 mmol/L 136-[address] [facility] Basophil percentage 90 mmol/L 98-[address] [facility] Basophils (Bld) [#/Vol] 9.6 10*3/uL 4.4-11.0 [facility] Chloride [Moles/Vol] 90 mmol/L 98-107 [facility] Glucose [Mass/Vol] 108 mg/dL 74-106 [facility] Comment on above: Fasting Glucose resu lt from 100 to 125 mg/dL suggests IMPAIRED HOMEOSTASIS per A.D.A. criteria. Sodium [Moles/Vol] 134 mmol/L 136-145 [facility] WBC (Bld) [#/Vol] 9.6 10*3/uL 4.4-11.0 [facility] Blood erythrocytes count (nu mber/volume)Ordered By: Preston Carson on 12-20-2022 RBC (Bld) [#/Vol] 3.44 10*6/uL 4.6-6.[address] [facility] Blood hemoglobin measurement (mass/volume)Ordered By: Preston Carson on 12-20-2022 Hemoglobin (Bld) [Mass/Vol] 8.8 g/dL 13.0-16.5 [facility] Blood platelet mean volumeOr dered By: Preston Carson on 12-20-2022 Platelet mean volume (Bld) [Entitic vol] 10.2 fL 6.2-12.0 [facility] Determination of erythrocyte mean corpuscular volume (MCV)Ordered By: Preston Carson on 12-20-2022 MCV (RBC) [Entitic vol] 82.3 fL 80-94 [facility] Hematocrit Auto (Bld) [Volum e fraction]Ordered By: Preston Carson on 12-20-2022 Hematocrit (Bld) [Volume fraction] 28.3 % 40-54 [facility] Laboratory - Chemistry and C hemistry - challengeOrdered By: Preston Carson on 12-20-2022 CO2 [Moles/Vol] 38.0 mmol/L 21.0-32.0 [facility] Urea nitrogen/Creatinine [Mass ratio] 26.7 mg/mg 10-20 [facility] Laboratory - Hematology and Cell countsOrdered By: Preston Carson on 12-20-2022 Erythrocyte distribution width (RBC) [Entitic vol] 61.2 fL 35.1-43.9 [facility] Erythrocyte distribution width (RBC) [Ratio] 20.8 % 11.6-14.6 [facility] MCH (RBC) [Entitic mass] 25.6 pg 27.0-32.0 [facility] MCHC Auto (RBC) [Mass/Vol]Or dered By: Preston Carson on 12-20-2022 MCHC (RBC) [Mass/Vol] 31.1 g/dL 32-36 [facility] No Panel InformationOrdered By: Preston Carson on 12-20-2022 Estimated Creatinine Clearance Calc 65.46 ml/min [facility] Estimated GFR (MDRD) Amer 90 mL/min >60 [facility] Comment on above: GFR Calc Estimated GFR (MDRD) Non-Af Amer 74 mL/min >60 [facility] Comment on above: Non- GFR Calc 25.6 pg 27.0-32.0 [facility] 20.8 % 11.6-14.6 [facility] 61.2 fl 35.1-43.9 [facility] 74 mL/min >60 [facility] 90 mL/min >60 [facility] 65.46 ml/min [facility] 26.7 RATIO 10-20 [facility] 38.0 mmol/L 21.0-32.0 [facility] Platelets bldOrdered By: Karthik Carson on 12-20-2022 Platelets (Bld) [#/Vol] 460 10*3/uL 150-450 [facility] Serum or plasma calcium yvonne urement (mass/volume)Ordered By: Preston Carson on 12-20-2022 Calcium [Mass/Vol] 7.3 mg/dL 8.5-10.1 [facility] Serum or plasma creatinine m easurement (mass/volume)Ordered By: Preston Carson on 12-20-2022 Creatinine [Mass/Vol] 1.05 mg/dL 0.70-1.30 [facility] Comment on above: The validity of the calculated GFR & GFRAA in patients over 70 years has not been determined. Clinical correlation is essential. Serum or plasma urea nitroge n measurement (mass/volume)Ordered By: Preston Carson on 12-20-2022 Urea nitrogen [Mass/Vol] 28 mg/dL 7-18 [facility] Thin prep Papanicolaou smear with manual screeningOrdered By: Preston Carson on 12-20-2022 Thin prep Papanicolaou smear with manual screening 6 5-15 [facility] Absolute lymphocyte countOrd ered By: Preston Carson on 12-19-2022 Lymphocytes Auto (Unsp spec) [#/Vol] 1.01 10*3/uL 0.83-4.51 [facility] Basophil percentageOrdered B y: Preston Carson on 12-19-2022 Basophil percentage 4.9 mg/dL 2.5-4.[address] [facility] Basophils (Bld) [#/Vol] 7.3 10*3/uL 2.0-7.7 [facility] Basophils/100 WBC (Bld) 0.2 % 0-1 [facility] Basophils/100 WBC (Bld) 68.2 % 47-70 [facility] Basophils/100 WBC (Bld) 3.4 % 0-5 [facility] Eosinophils/100 WBC (Bld) 3.4 % 0-5 [facility] Neutrophils (Bld) [#/Vol] 7.3 10*3/uL 2.0-7.7 [facility] Neutrophils/100 WBC (Bld) 68.2 % 47-70 [facility] Blood lymphocytes/100 leukoc ytesOrdered By: Preston Carson on 12-19-2022 Lymphocytes/100 WBC (Bld) 9.4 % 19-41 [facility] Blood manual differential co mment interpretation (narrative result)Ordered By: Preston Carson on 12-19-2022 Manual differential comment Shalom (Bld) [Interp] SCANNED [facility] Blood monocytes/100 leukocyt esOrdered By: Preston Carson on 12-19-2022 Monocytes/100 WBC (Bld) 18.1 % 0-10 [facility] Glucose Glucometer (BldC) [M ass/Vol]Ordered By: Preston Carson on 12-19-2022 Glucose [Mass/Vol] 91 mg/dL 74-106 [facility] Comment on above: MANAGEMENT OF PATIEN T CARE PER NURSING PROTOCOL Laboratory - Chemistry and C hemistry - challengeOrdered By: Preston Carson on 12-19-2022 Magnesium [Mass/Vol] 1.9 mg/dL 1.6-2.6 [facility] Laboratory - Hematology and Cell countsOrdered By: Preston Carson on 12-19-2022 Anisocytosis Ql (Bld) 2+ [facility] Immature granulocytes/100 WBC (Bld) 0.700 % 0.0-0.9 [facility] Comment on above: IG% - Immature Granu locytes (promyelocytes, myelocytes and metamyelocytes) > 1% indicates that a LEFT SHIFT is Present. Nucleated RBC/100 WBC (Bld) [Ratio] 0 % 0-5 [facility] Macrocytes detectionOrdered By: Preston Carson on 12-19-2022 Macrocytes Ql (Bld) 1+ [facility] No Panel InformationOrdered By: Preston Carson on 12-19-2022 0.700 % 0.0-0.9 [facility] 0 % 0-5 [facility] 2+ [facility] 1.9 mg/dL 1.6-2.6 [facility] Thin prep Papanicolaou smear with manual screeningOrdered By: Preston Carson on 12-19-2022 Thin prep Papanicolaou smear with manual screening 1+ [facility] Blood poikilocytosis detecti on by light microscopyOrdered By: Fernanda Staples on 12-18-2022 Poikilocytosis LM Ql (Bld) 1+ [facility] Hypochromatic red blood cell detectionOrdered By: Fernanda Staples on 12-18-2022 Hypochromia Ql (Bld) 1+ [facility] Lower GI hemoglobin IA Ql (S tl)Ordered By: Fernanda Staples on 12-18-2022 Stool Occult Blood (NANCY) Positive [facility] Stool gastrointestinal hemoglobin detection by immunologic method Positive [facility] Ovalocyte detectionOrdered B y: Fernanda Staples on 12-18-2022 Ovalocytes LM Ql (Bld) 1+ [facility] Review by pathologistOrdered By: Fernanda Staples on 12-18-2022 Pathologist review Shalom (Unsp spec) [Interp] Sammie zayas [facility] Pathologist review Shalom (Unsp spec) [Interp] Reviewed [facility] Comment on above: Previous reported re sult: Sammie zayas Edited by: RGOOD on 12/21/22:1229Neutrophilic leukocytosis.Normocytic anemia.Clinical correlation necessary.John Ludwig M.D. 12/21/22 AMENDED REPORT 12/21/22 1229 PATH REV previously reported as: Sammie zayas Basophil percentageOrdered B y: Fernanda Staples on 12-17-2022 Basophil percentage 6.5 g/dL 6.4-8.[address] [facility] Basophil percentage 0.60 mg/dL 0.20-1.[address] [facility] Bilirubin [Mass/Vol] 0.60 mg/dL 0.20-1.00 [facility] Comment on above: For patients on eltr ombopag therapy, use of Dimension [place] TBIL is not recommended. Protein [Mass/Vol] 6.5 g/dL 6.4-8.2 [facility] Basophil percentageOrdered B y: Dru Mayfield on 12-17-2022 Basophil percentage 2.2 mmol/L 0.4-2.[address] [facility] Lactate [Moles/Vol] 2.2 mmol/L 0.4-2.[address] [facility] Comment on above: Critical Result(s) C alled at: 00:43:29 12/17/2022 by: Frank Mota to Marcio Douglas RN PCU. Results read back by same. Blood platelet morphology de termination (nominal result)Ordered By: Fernanda Staples on 12-17-2022 Platelet morphology finding Nom (Bld) LARGE [facility] Erythrocyte basophilic stipp ling detectionOrdered By: Fernanda Staples on 12-17-2022 Basophilic stippling LM Ql (Bld) 1+ [facility] Iron measurement (mass/mass) Ordered By: Fernanda Staples on 12-17-2022 Iron (Unsp spec) [Mass/Mass] 53 ug/dL 65-175 [facility] Laboratory - Chemistry and C hemistry - challengeOrdered By: Fernanda Staples on 12-17-2022 ALP [Catalytic activity/Vol] 102 U/L 45-117 [facility] ALT [Catalytic activity/Vol] 44 U/L 16-61 [facility] Free T4 [Mass/Vol] 1.46 ng/dL 0.76-1.46 [facility] Globulin (S) [Mass/Vol] 3.9 g/dL 2.2-4.2 [facility] Lower GI hemoglobin IA Ql (S tl)Ordered By: Fernanda Staples on 12-17-2022 Stool Occult Blood (NANCY) Positive [facility] No Panel InformationOrdered By: Fernanda Staples on 12-17-2022 Thyroid Stimulating Hormone (TSH) 0.34 uIU/mL 0.358-3.74 [facility] Total Iron Binding Capacity 322 ug/dL 250-450 [facility] Troponin I High Sensitivity 44 pg/mL 3.0-78.0 [facility] Comment on above: Please Note: New Denise t Units and Gender Specific Reference Ranges. For more information see Policy Stat Procedure [place] High Sensitivity Troponin (TNIH) and attachments. 3.9 g/dL 2.2-4.2 [facility] 44 pg/mL 3.0-78.0 [facility] 102 U/L 45-117 [facility] 44 U/L 16-61 [facility] 0.34 uIU/mL 0.358-3.74 [facility] 322 ug/dL 250-450 [facility] 1.46 ng/dL 0.76-1.46 [facility] No Panel InformationOrdered By: Dudley Cid on 12-17-2022 Anti-Gliadin IgA Antibody 6 units 0-19 [facility] Comment on above: Negative 0 - 19 Weak Positive 20 - 30 Moderate to Strong Positive >30 Anti-Gliadin IgG Antibody 2 units 0-19 [facility] Comment on above: Negative 0 - 19 Weak Positive 20 - 30 Moderate to Strong Positive >30 Endomysial IgA Antibody Negative Negative [facility] Tissue Transglutaminase IgG Ab <2 U/mL 0-5 [facility] Comment on above: Negative 0 - 5 Weak Positive 6 - 9 Positive >9 6 units 0-19 [facility] 2 units 0-19 [facility] <2 U/mL 0-5 [facility] Negative Negative [facility] Serum IgA measurement (units /volume)Ordered By: Dudlye Cid on 12-17-2022 IgA Qn (S) 266 mg/dL 61-437 [facility] Comment on above: Performed at: [facility] [address] [id number] Director: Manfred Tello PhD, Phone: [phone] Serum or plasma albumin yvonne urement (mass/volume)Ordered By: Fernanda Staples on 12-17-2022 Albumin [Mass/Vol] 2.6 g/dL 3.2-5.0 [facility] Serum or plasma albumin/glob ulin mass ratioOrdered By: Fernanda Staples on 12-17-2022 Albumin/Globulin [Mass ratio] 0.7 {ratio} 0.9-2.4 [facility] Serum or plasma ferritin gloria surement (mass/volume)Ordered By: Fernanda Staples on 12-17-2022 Ferritin [Mass/Vol] 183 ng/mL 26-[address] [facility] Serum or plasma iron saturat ion measurement (mass fraction)Ordered By: Fernanda Staples on 12-17-2022 Iron saturation [Mass fraction] 16.5 % 15.0-55.0 [facility] Serum procalcitonin measurem entOrdered By: Dru Mayfield on 12-17-2022 Procalcitonin [Mass/Vol] 0.06 ng/mL 0.00-0.09 [facility] Comment on above: A procalcitonin (PCT ) level above 2.0 ng/mL on the first day of ICU admission is associated with a high risk for progression to severe sepsis and/or septic shock. A PCT level below 0.5 ng/mL on the first day of ICU admission is associated with a low risk for progression to severe and/or septic shock. Note: Concentrations <0.5 ng/mL do not exclude an infection on account of localized infections (without systemic signs) which can be associated with such low concentrations, or a systemic infection in its initial stages (<6 hours). Furthermore, increased procalcitonin can occur without infection. PCT concentrations between 0.5 and 2.0 ng/mL should be interpreted taking into account the patient's history. It is recommended to retest PCT within 6-24 hours if any concentrations <2 ng/mL are obtained. Serum tissue transglutaminas e IgA antibody assay (units/volume)Ordered By: Dudley Cid on 12-17-2022 tTG IgA Qn (S) 4 U/mL 0-3 [facility] Comment on above: Negative 0 - 3 Weak Positive 4 - 10 Positive >10 Tissue Transglutaminase (tTG) has been identified as the endomysial antigen. Studies have demonstr- ated that endomysial IgA antibodies have over 99% specificity for gluten sensitive enteropathy. Thin prep Papanicolaou smear with manual screeningOrdered By: Fernanda Staples on 12-17-2022 Thin prep Papanicolaou smear with manual screening 10 U/L 15-37 [facility] Absolute lymphocyte countOrd ered By: Dru Mayfield on 12-16-2022 Lymphocytes Auto (Unsp spec) [#/Vol] 0.49 10*3/uL 0.83-4.51 [facility] Basophil percentageOrdered B y: Dru Mayfield on 12-16-2022 Basophils/100 WBC (Bld) 0.3 % 0-1 [facility] Chloride [Moles/Vol] 93 mmol/L 98-107 [facility] Eosinophils/100 WBC (Bld) 0.5 % 0-5 [facility] Glucose [Mass/Vol] 224 mg/dL 74-106 [facility] Comment on above: Glucose result great er than or equal to 200 mg/dLsuggests DIABETES MELLITUS per A.D.A. criteria. Lactate [Moles/Vol] 3.5 mmol/L 0.4-2.[address] [facility] Comment on above: Critical Result(s) C alled at: 19:39:29 12/16/2022 by: David Magana to [place] [id number]. Results read back by same. Neutrophils (Bld) [#/Vol] 8.2 10*3/uL 2.0-7.7 [facility] Neutrophils/100 WBC (Bld) 89.3 % 47-70 [facility] Potassium [Moles/Vol] 4.7 mmol/L 3.5-5.1 [facility] Comment on above: Moderate Hemolysis, Result may be falsely increased. Sodium [Moles/Vol] 128 mmol/L 136-145 [facility] WBC (Bld) [#/Vol] 9.2 10*3/uL 4.4-11.0 [facility] Blood erythrocytes count (nu mber/volume)Ordered By: Dru Mayfield on 12-16-2022 RBC (Bld) [#/Vol] 3.59 10*6/uL 4.6-6.[address] [facility] Blood hemoglobin measurement (mass/volume)Ordered By: Dru Mayfield on 12-16-2022 Hemoglobin (Bld) [Mass/Vol] 9.0 g/dL 13.0-16.5 [facility] Blood lymphocytes/100 leukoc ytesOrdered By: Dru Mayfield on 12-16-2022 Lymphocytes/100 WBC (Bld) 5.3 % 19-41 [facility] Blood manual differential co mment interpretation (narrative result)Ordered By: Dru Mayfield on 12-16-2022 Manual differential comment Shalom (Bld) [Interp] [facility] Comment on above: LYMPHOPENIA NOTED Blood monocytes/100 leukocyt esOrdered By: Dru Mayfield on 12-16-2022 Monocytes/100 WBC (Bld) 1.9 % 0-10 [facility] Blood platelet adequacy dete ction by light microscopyOrdered By: Dru Mayfield on 12-16-2022 Platelets LM Ql (Bld) ADEQUATE ADEQ [facility] Blood platelet mean volumeOr dered By: Dru Mayfield on 12-16-2022 Platelet mean volume (Bld) [Entitic vol] 11.8 fL 6.2-12.0 [facility] Determination of erythrocyte mean corpuscular volume (MCV)Ordered By: Dru Mayfield on 12-16-2022 MCV (RBC) [Entitic vol] 80.8 fL 80-94 [facility] Hematocrit Auto (Bld) [Volum e fraction]Ordered By: Dru Mayfield on 12-16-2022 Hematocrit (Bld) [Volume fraction] 29.0 % 40-54 [facility] Hypochromatic red blood cell detectionOrdered By: Dru Mayfield on 12-16-2022 Hypochromia Ql (Bld) 1+ [facility] Laboratory - Chemistry and C hemistry - challengeOrdered By: Dru Mayfield on 12-16-2022 CO2 [Moles/Vol] 27.0 mmol/L 21.0-32.0 [facility] Natriuretic peptide B (Bld) [Mass/Vol] 373.4 pg/mL 0-100 [facility] Urea nitrogen/Creatinine [Mass ratio] 24.6 mg/mg 10-20 [facility] Laboratory - Hematology and Cell countsOrdered By: Dru Mayfield on 12-16-2022 Anisocytosis Ql (Bld) 1+ [facility] Erythrocyte distribution width (RBC) [Entitic vol] 58.4 fL 35.1-43.9 [facility] Erythrocyte distribution width (RBC) [Ratio] 20.6 % 11.6-14.6 [facility] Immature granulocytes/100 WBC (Bld) 2.700 % 0.0-0.9 [facility] Comment on above: IG% - Immature Granu locytes (promyelocytes, myelocytes and metamyelocytes) > 1% indicates that a LEFT SHIFT is Present. MCH (RBC) [Entitic mass] 25.1 pg 27.0-32.0 [facility] Nucleated RBC/100 WBC (Bld) [Ratio] 0 % 0-5 [facility] MCHC Auto (RBC) [Mass/Vol]Or dered By: Dru Mayfield on 12-16-2022 MCHC (RBC) [Mass/Vol] 31.0 g/dL 32-36 [facility] No Panel InformationOrdered By: Fernanda Staples on 12-16-2022 Streptococcus pneumoniae Antigen (M [facility] Streptococcus pneumoniae Antigen ([facility] No Panel InformationOrdered By: Dru Mayfield on 12-16-2022 Estimated Creatinine Clearance Calc 62.26 ml/min [facility] Estimated GFR (MDRD) Amer 82 mL/min >60 [facility] Comment on above: GFR Calc Estimated GFR (MDRD) Non-Af Amer 67 mL/min >60 [facility] Comment on above: Non- GFR Calc Troponin I High Sensitivity 30 pg/mL 3.0-78.0 [facility] Comment on above: Please Note: New Denise t Units and Gender Specific Reference Ranges. For more information see Policy Stat Procedure [place] High Sensitivity Troponin (TNIH) and attachments. 373.4 pg/mL 0-100 [facility] Platelets bldOrdered By: Pet markos Mayfield on 12-16-2022 Platelets (Bld) [#/Vol] 307 10*3/uL 150-450 [facility] RBC morphologyOrdered By: Devyn Russell on 12-16-2022 RBC morphology finding Nom (Bld) N CHROM NORMAL NORM C&C [facility] Respiratory pathogens detect ion panel by molecular detection methodOrdered By: Dru Mayfield on 12-16-2022 Respiratory pathogens DNA and RNA panel ARYAN+probe (Resp) [facility] Respiratory pathogens DNA and RNA panel ARYAN+probe (Resp) [facility] Serum or plasma calcium yvonne urement (mass/volume)Ordered By: Dru Mayfield on 12-16-2022 Calcium [Mass/Vol] 8.2 mg/dL 8.5-10.1 [facility] Serum or plasma creatinine m easurement (mass/volume)Ordered By: Dru Mayfield on 12-16-2022 Creatinine [Mass/Vol] 1.14 mg/dL 0.70-1.30 [facility] Comment on above: The validity of the calculated GFR & GFRAA in patients over 70 years has not been determined. Clinical correlation is essential. Serum or plasma urea nitroge n measurement (mass/volume)Ordered By: Dru Mayfield on 12-16-2022 Urea nitrogen [Mass/Vol] 28 mg/dL 7-18 [facility] Thin prep Papanicolaou smear with manual screeningOrdered By: Dru Mayfield on 12-16-2022 Thin prep Papanicolaou smear with manual screening 1+ [facility] Thin prep Papanicolaou smear with manual screening 8 5-15 [facility] Urine Legionella pneumophila antigen detectionOrdered By: Fernanda Staples on 12-16-2022 L. pneumophila Ag Ql (U) [facility] L. pneumophila Ag Ql (U) [facility] MAGNESIUM BLDon 12-02-2022 Magnesium [Mass/Vol] 1.8 mg/dL 1.7 - 2 .3 mg/dL [facility] PHOSPHORUS INORGANICon 12-02 Phosphate [Mass/Vol] 3.2 mg/dL 2.7 - 4 .8 mg/dL [facility] Basophil percentageOrdered B y: Aleks Vega on 12-01-2022 Basophil percentage 71 mg/dL 74-[address] [facility] Basophil percentage 6.6 g/dL 6.4-8.[address] [facility] Basophil percentage 0.70 mg/dL 0.20-1.[address] [facility] Basophil percentage 93 mg/dL <[address] [facility] Basophil percentage 53 mg/dL <[address] [facility] Basophil percentage 134 mmol/L 136-[address] [facility] Basophil percentage 4.2 mmol/L 3.5-5.[address] [facility] Basophil percentage 99 mmol/L 98-[address] [facility] Bilirubin [Mass/Vol] 0.70 mg/dL 0.20-1.00 [facility] Comment on above: For patients on eltr ombopag therapy, use of Dimension [place] TBIL is not recommended. Chloride [Moles/Vol] 99 mmol/L 98-107 [facility] Cholesterol [Mass/Vol] 93 mg/dL <200 [facility] Comment on above: <200 mg/dL Desirable 200-240 mg/dL Borderline >240 mg/dL High Risk Glucose [Mass/Vol] 71 mg/dL 74-106 [facility] Potassium [Moles/Vol] 4.2 mmol/L 3.5-5.1 [facility] Protein [Mass/Vol] 6.6 g/dL 6.4-8.2 [facility] Sodium [Moles/Vol] 134 mmol/L 136-145 [facility] Triglyceride [Mass/Vol] 53 mg/dL <199 [facility] Comment on above: The drugs N-Acetylcy steine and Metamizole may falsely depress this assay.Serum Triglycerides Reference Interval Normal <150 mg/dL Borderline high 150 - 199 mg/dL High 200 - 499 mg/dL Very High > or = 500 mg/dL Laboratory - Chemistry and C hemistry - challengeOrdered By: Aleks Vega on 12-01-2022 ALP [Catalytic activity/Vol] 97 U/L 45- [facility] ALT [Catalytic activity/Vol] 36 U/L [facility] CO2 [Moles/Vol] 32.0 mmol/L 21.0-32.0 [facility] Globulin (S) [Mass/Vol] 4.1 g/dL 2.2-4.2 [facility] Urea nitrogen/Creatinine [Mass ratio] 17.3 mg/mg - [facility] No Panel InformationOrdered By: Aleks Vega on 12-01-2022 Estimated GFR (MDRD) Amer 132 mL/min >60 [facility] Comment on above: GFR Calc Estimated GFR (MDRD) Non-Af Amer 109 mL/min >60 [facility] Comment on above: Non- GFR Calc 109 mL/min >60 [facility] 132 mL/min >60 [facility] 17.3 RATIO 10- [facility] 4.1 g/dL 2.2-4.2 [facility] 97 U/L 45-117 [facility] 36 U/L [facility] 32.0 mmol/L 21.0-32.0 [facility] Serum or plasma albumin yvonne urement (mass/volume)Ordered By: Aleks Vega on 12-01-2022 Albumin [Mass/Vol] 2.5 g/dL 3.2-5.0 [facility] Serum or plasma albumin/glob ulin mass ratioOrdered By: Aleks Vega on 12-01-2022 Albumin/Globulin [Mass ratio] 0.6 {ratio} 0.9-2.4 [facility] Serum or plasma calcium yvonne urement (mass/volume)Ordered By: Aleks Vega on 12-01-2022 Calcium [Mass/Vol] 8.3 mg/dL 8.5-10.1 [facility] Serum or plasma cholesterol in HDL measurement (mass/volume)Ordered By: Aleks Vega on 12-01-2022 Cholesterol in HDL [Mass/Vol] 51 mg/dL >40 [facility] Comment on above: The drugs N-Acetylcy steine and Metamizole may falsely depress this assay. Reference Range HDL <40 mg/dL Low HDL Cholesterol HDL >or= 60 mg/dL High HDL Cholesterol Serum or plasma cholesterol in VLDL measurement (mass/volume)Ordered By: Aleks Vega on 12-01-2022 Cholesterol in VLDL [Mass/Vol] 11 mg/dL 5-40 [facility] Serum or plasma creatinine m easurement (mass/volume)Ordered By: Aleks Vega on 12-01-2022 Creatinine [Mass/Vol] 0.75 mg/dL 0.70-1.30 [facility] Comment on above: The validity of the calculated GFR & GFRAA in patients over 70 years has not been determined. Clinical correlation is essential. Serum or plasma low density lipoprotein (LDL) cholesterol measurement (mass/volume)Ordered By: Aleks Vega on 12-01-2022 Cholesterol in LDL [Mass/Vol] 31 mg/dL 0-130 [facility] Serum or plasma urea nitroge n measurement (mass/volume)Ordered By: Aleks Vega on 12-01-2022 Urea nitrogen [Mass/Vol] 13 mg/dL 7-18 [facility] Thin prep Papanicolaou smear with manual screeningOrdered By: Aleks Vega on 12-01-2022 Thin prep Papanicolaou smear with manual screening 12 U/L 15-37 [facility] Thin prep Papanicolaou smear with manual screening 3 5-15 [facility] Whole blood hemoglobin A1c/t otal hemoglobin ratio (mass fraction)Ordered By: Aleks Vega on 12-01-2022 HbA1c (Bld) [Mass fraction] 8.5 % 3.8-5.6 [facility] Comment on above: Normal < 5.7 % Predi abetic 5.7 - 6.4 % Diabetic >or= 6.5 % Please note range changes. Absolute lymphocyte countOrd ered By: Cesar Matos on 11-02-2022 Lymphocytes Auto (Unsp spec) [#/Vol] 1.24 10*3/uL 0.83-4.51 [facility] Basophil percentageOrdered B y: Cesar aMtos on 11-02-2022 Basophils/100 WBC (Bld) 0.2 % 0-1 [facility] Chloride [Moles/Vol] 95 mmol/L 98-107 [facility] Eosinophils/100 WBC (Bld) 2.4 % 0-5 [facility] Glucose [Mass/Vol] 118 mg/dL 74-106 [facility] Comment on above: Fasting Glucose resu lt from 100 to 125 mg/dL suggests IMPAIRED HOMEOSTASIS per A.D.A. criteria. Neutrophils (Bld) [#/Vol] 10.3 10*3/uL 2.0-7.7 [facility] Neutrophils/100 WBC (Bld) 81.1 % 47-70 [facility] Potassium [Moles/Vol] 3.5 mmol/L 3.5-5.1 [facility] Sodium [Moles/Vol] 132 mmol/L 136-145 [facility] WBC (Bld) [#/Vol] 12.7 10*3/uL 4.4-11.[address] [facility] Blood erythrocytes count (nu mber/volume)Ordered By: Cesar Matos on 11-02-2022 RBC (Bld) [#/Vol] 4.85 10*6/uL 4.6-6.[address] [facility] Blood hemoglobin measurement (mass/volume)Ordered By: Cesar Matso on 11-02-2022 Hemoglobin (Bld) [Mass/Vol] 11.9 g/dL 13.0-16.5 [facility] Blood lymphocytes/100 leukoc ytesOrdered By: Cesar Matos on 11-02-2022 Lymphocytes/100 WBC (Bld) 9.7 % 19-41 [facility] Blood monocytes/100 leukocyt esOrdered By: Cesar Matos on 11-02-2022 Monocytes/100 WBC (Bld) 5.7 % 0-10 [facility] Blood platelet mean volumeOr dered By: Cesar Matos on 11-02-2022 Platelet mean volume (Bld) [Entitic vol] 10.5 fL 6.2-12.0 [facility] Determination of erythrocyte mean corpuscular volume (MCV)Ordered By: Cesar Matos on 11-02-2022 MCV (RBC) [Entitic vol] 80.6 fL 80-94 [facility] Hematocrit Auto (Bld) [Volum e fraction]Ordered By: Cesar Matos on 11-02-2022 Hematocrit (Bld) [Volume fraction] 39.1 % 40-54 [facility] Laboratory - Chemistry and C hemistry - challengeOrdered By: Cesar Matos on 11-02-2022 CO2 [Moles/Vol] 32.0 mmol/L 21.0-32.0 [facility] Natriuretic peptide B (Bld) [Mass/Vol] 282.9 pg/mL 0-100 [facility] Urea nitrogen/Creatinine [Mass ratio] 15.3 mg/mg 10-20 [facility] Laboratory - Hematology and Cell countsOrdered By: Cesar Matos on 11-02-2022 Erythrocyte distribution width (RBC) [Entitic vol] 45.7 fL 35.1-43.9 [facility] Erythrocyte distribution width (RBC) [Ratio] 15.6 % 11.6-14.6 [facility] Immature granulocytes/100 WBC (Bld) 0.900 % 0.0-0.9 [facility] Comment on above: IG% - Immature Granu locytes (promyelocytes, myelocytes and metamyelocytes) > 1% indicates that a LEFT SHIFT is Present. MCH (RBC) [Entitic mass] 24.5 pg 27.0-32.0 [facility] Nucleated RBC/100 WBC (Bld) [Ratio] 0 % 0-5 [facility] Auto (RBC) [Mass/Vol]Or dered By: Cesar Matos on 11-02-2022 MCHC (RBC) [Mass/Vol] 30.4 g/dL 32-36 [facility] No Panel InformationOrdered By: Cesar Matos on 11-02-2022 Estimated Creatinine Clearance Calc 77.14 ml/min [facility] Estimated GFR (MDRD) Amer 105 mL/min >60 [facility] Comment on above: GFR Calc Estimated GFR (MDRD) Non-Af Amer 87 mL/min >60 [facility] Comment on above: Non- GFR Calc Troponin I High Sensitivity 37 pg/mL 3.0-78.0 [facility] Comment on above: Please Note: New Denise t Units and Gender Specific Reference Ranges. For more information see Policy Stat Procedure [place] High Sensitivity Troponin (TNIH) and attachments. Platelets bldOrdered By: Corby Matos on 11-02-2022 Platelets (Bld) [#/Vol] 323 10*3/uL 150-450 [facility] Serum or plasma calcium yvonne urement (mass/volume)Ordered By: Cesar Matos on 11-02-2022 Calcium [Mass/Vol] 8.6 mg/dL 8.5-10.1 [facility] Serum or plasma creatinine m easurement (mass/volume)Ordered By: Cesar Matos on 11-02-2022 Creatinine [Mass/Vol] 0.92 mg/dL 0.70-1.30 [facility] Comment on above: The validity of the calculated GFR & GFRAA in patients over 70 years has not been determined. Clinical correlation is essential. Serum or plasma urea nitroge n measurement (mass/volume)Ordered By: Cesar Matos on 11-02-2022 Urea nitrogen [Mass/Vol] 14 mg/dL 7-18 [facility] Thin prep Papanicolaou smear with manual screeningOrdered By: Cesar Matos on 11-02-2022 Thin prep Papanicolaou smear with manual screening 5 5-15 [facility] No Panel Informationon 11-01 [facility] Basophil percentageOrdered B y: Dr. Mcdaniel on 09-01-2022 Bilirubin [Mass/Vol] 0.40 mg/dL 0.20-1.00 [facility] Comment on above: For patients on eltr ombopag therapy, use of Dimension [place] TBIL is not recommended. Chloride [Moles/Vol] 102 mmol/L 98-107 [facility] Glucose [Mass/Vol] 210 mg/dL 74-106 [facility] Comment on above: Glucose result great er than or equal to 200 mg/dLsuggests DIABETES MELLITUS per A.D.A. criteria. Potassium [Moles/Vol] 4.6 mmol/L 3.5-5.1 [facility] Protein [Mass/Vol] 7.6 g/dL 6.4-8.2 [facility] Sodium [Moles/Vol] 138 mmol/L 136-145 [facility] Laboratory - Chemistry and C hemistry - challengeOrdered By: Dr. Mcdaniel on 09-01-2022 ALP [Catalytic activity/Vol] 113 U/L 45-117 [facility] ALT [Catalytic activity/Vol] 27 U/L 16-61 [facility] CO2 [Moles/Vol] 29.0 mmol/L 21.0-32.0 [facility] Globulin (S) [Mass/Vol] 4.7 g/dL 2.2-4.2 [facility] Urea nitrogen/Creatinine [Mass ratio] 22.2 mg/mg 10-20 [facility] No Panel InformationOrdered By: Dr. Mcdaniel on 09-01-2022 Estimated GFR (MDRD) Amer 114 mL/min >60 [facility] Comment on above: GFR Calc Estimated GFR (MDRD) Non-Af Amer 94 mL/min >60 [facility] Comment on above: Non- GFR Calc Urine Microalbumin/Creatinine Ratio 95.9 mg/g CRE <30 [facility] Serum or plasma albumin yvonne urement (mass/volume)Ordered By: Dr. Mcdaniel on 09-01-2022 Albumin [Mass/Vol] 2.9 g/dL 3.2-5.0 [facility] Serum or plasma albumin/glob ulin mass ratioOrdered By: Dr. Mcdaniel on 09-01-2022 Albumin/Globulin [Mass ratio] 0.6 {ratio} 0.9-2.4 [facility] Serum or plasma calcium yvonne urement (mass/volume)Ordered By: Dr. Mcdaniel on 09-01-2022 Calcium [Mass/Vol] 8.8 mg/dL 8.5-10.1 [facility] Serum or plasma creatinine m easurement (mass/volume)Ordered By: Dr. Mcdaniel on 09-01-2022 Creatinine [Mass/Vol] 0.86 mg/dL 0.70-1.30 [facility] Comment on above: The validity of the calculated GFR & GFRAA in patients over 70 years has not been determined. Clinical correlation is essential. Serum or plasma urea nitroge n measurement (mass/volume)Ordered By: Dr. Mcdaniel on 09-01-2022 Urea nitrogen [Mass/Vol] 19 mg/dL 7-18 [facility] Thin prep Papanicolaou smear with manual screeningOrdered By: Dr. Mcdaniel on 09-01-2022 Thin prep Papanicolaou smear with manual screening 18 U/L 15-37 [facility] Thin prep Papanicolaou smear with manual screening 7 5-15 [facility] Thin prep Papanicolaou smear with manual screening 140.0 mg/L NO RANGE EST. [facility] Urine creatinine measurement (mass/volume)Ordered By: Dr. Mcdaniel on 09-01-2022 Creatinine (U) [Mass/Vol] 146.00 mg/dL NO RANGE EST. [facility] Whole blood hemoglobin A1c/t otal hemoglobin ratio (mass fraction)Ordered By: Dr. Mcdaniel on 09-01-2022 HbA1c (Bld) [Mass fraction] 7.7 % 3.8-5.6 [facility] Comment on above: Normal < 5.7 % Predi abetic 5.7 - 6.4 % Diabetic >or= 6.5 % Please note range changes. Absolute lymphocyte countOrd ered By: Tessy Trinh on 08-03-2022 Lymphocytes Auto (Unsp spec) [#/Vol] 1.46 10*3/uL 0.83-4.51 [facility] Alternaria alternata IgE ser umOrdered By: Tessy Trinh on 08-03-2022 A. alternata IgE Qn (S) <0.10 kU/L Class 0 [facility] Atypical perinuclear antineu trophil cytoplasmic antibodies measurementOrdered By: Tessy Trinh on 08-03-2022 Neutrophil cytoplasmic Ab.perinuclear.atypical IF (S) [Titer] <1:20 titer Neg:<1:20 [facility] Comment on above: The atypical pANCA p attern has been observed in asignificant percentage of patients with ulcerative colitis,primary sclerosing cholangitis and autoimmune hepatitis. Basophil percentageOrdered B y: Tessy Trinh on 08-03-2022 Basophils/100 WBC (Bld) 0.7 % 0-1 [facility] Eosinophils/100 WBC (Bld) 2.2 % 0-5 [facility] Neutrophils (Bld) [#/Vol] 7.8 10*3/uL 2.0-7.7 [facility] Neutrophils/100 WBC (Bld) 73.9 % 47-70 [facility] WBC (Bld) [#/Vol] 10.6 10*3/uL 4.4-11.[address] [facility] Blood erythrocytes count (nu mber/volume)Ordered By: Tessy Trinh on 08-03-2022 RBC (Bld) [#/Vol] 5.12 10*6/uL 4.6-6.[address] [facility] Blood hemoglobin measurement (mass/volume)Ordered By: Tessy Trinh on 08-03-2022 Hemoglobin (Bld) [Mass/Vol] 13.0 g/dL 13.0-16.5 [facility] Blood lymphocytes/100 leukoc ytesOrdered By: Tessy Trinh on 08-03-2022 Lymphocytes/100 WBC (Bld) 13.8 % 19-41 [facility] Blood monocytes/100 leukocyt esOrdered By: Tessy Trnih on 08-03-2022 Monocytes/100 WBC (Bld) 8.7 % 0-10 [facility] Blood platelet mean volumeOr dered By: Tessy Trinh on 08-03-2022 Platelet mean volume (Bld) [Entitic vol] 9.7 fL 6.2-12.0 [facility] Determination of erythrocyte mean corpuscular volume (MCV)Ordered By: Tessy Trinh on 08-03-2022 MCV (RBC) [Entitic vol] 82.4 fL 80-94 [facility] Hematocrit Auto (Bld) [Volum e fraction]Ordered By: Tessy Trinh on 04-11-2023 Hematocrit (Bld) [Volume fraction] 42.2 % 40-54 [facility] Laboratory - Hematology and Cell countsOrdered By: Tessy Trinh on 08-03-2022 Erythrocyte distribution width (RBC) [Entitic vol] 45.5 fL 35.1-43.9 [facility] Erythrocyte distribution width (RBC) [Ratio] 15.2 % 11.6-14.6 [facility] Immature granulocytes/100 WBC (Bld) 0.700 % 0.0-0.9 [facility] Comment on above: IG% - Immature Granu locytes (promyelocytes, myelocytes and metamyelocytes) > 1% indicates that a LEFT SHIFT is Present. MCH (RBC) [Entitic mass] 25.4 pg 27.0-32.0 [facility] Nucleated RBC/100 WBC (Bld) [Ratio] 0 % 0-5 [facility] Laboratory - Miscellaneous t estsOrdered By: Tessy Trinh on 08-03-2022 Service comment (Unsp spec) [Interp] Comment . [facility] Comment on above: Levels of Specific I gE Class Description of Class ----- < 0.10 0 Negative 0.10 - 0.31 0/I Equivocal/Low 0.32 - 0.55 I Low 0.56 - 1.40 II Moderate 1.41 - 3.90 III High 3.91 - 19.00 IV Very High 19.01 - 100.00 V Very High >100.00 Very High [facility] Auto (RBC) [Mass/Vol]Or dered By: Tessy Trinh on 08-03-2022 MCHC (RBC) [Mass/Vol] 30.8 g/dL 32-36 [facility] No Panel InformationOrdered By: Tessy Trinh on 08-03-2022 Common Ragweed (Short) Allergen <0.10 kU/L Class 0 [facility] Malagasy Plantain Allergen (RAST) <0.10 kU/L Class 0 [facility] Immunoglobulin E 26 IU/mL 6-495 [facility] Comment on above: Performed at: [address], [place], [place] [id number] Director: Manfred Tello PhD, Phone: [phone] at: [employer] [facility] [address] [id number] Director: Vy Steele MD, Phone: [phone] Mouse Urine Allergen IgE Antibody <0.10 kU/L Class 0 [facility] Comment on above: Performed at: [employer] [facility] [address] [id number] Director: Vy Steele MD, Phone: [phone] Platelets bldOrdered By: Sabiha Trinh on 08-03-2022 Platelets (Bld) [#/Vol] 393 10*3/uL 150-450 [facility] Serum Aspergillus flavus ant ibody detection by immunodiffusionOrdered By: Tessy Trinh on 08-03-2022 A. flavus Ab Immune diff Ql (S) Negative Neg:<1:1 [facility] Serum Aspergillus fumigatus antibody detection by immunodiffusionOrdered By: Tessy Trinh on 08-03-2022 A. fumigatus Ab Immune diff Ql (S) Negative Neg:<1:1 [facility] Serum Aspergillus niger anti body detection by immunodiffusionOrdered By: Tessy Trinh on 08-03-2022 A. niger Ab Immune diff Ql (S) Negative Neg:<1:1 [facility] Serum Berm[place] grass IgE anti body assay (units/volume)Ordered By: Tessy Trinh on 08-03-2022 B[place] grass IgE Qn (S) <0.10 kU/L Class 0 [facility] Serum Dermatophagoides farin ae specific IgE antibody assay (units/volume)Ordered By: Tessy Trinh on 08-03-2022 [place] house dust mite IgE Qn (S) <0.10 kU/L Class 0 [facility] Serum house dust mi te IgE antibody assay (units/volume)Ordered By: Tessy Trinh on 08-03-2022 house dust mite IgE Qn (S) <0.10 kU/L Class 0 [facility] Serum [place] blue grass Ig E antibody assay (units/volume)Ordered By: Tessy Trinh on 08-03-2022 [place] blue grass IgE Qn (S) <0.10 kU/L Class 0 [facility] Serum cat dander IgE antibod y assay (units/volume)Ordered By: Tessy Trinh on 08-03-2022 Cat dander IgE Qn (S) <0.10 kU/L Class 0 [facility] Serum classic neutrophil cyt oplasmic antibody assay (units/volume)Ordered By: Tessy Trinh on 08-03-2022 Neutrophil cytoplasmic Ab.classic Qn (S) <1:20 titer Neg:<1:20 [facility] Serum dog epithelium IgE ant ibody assay (units/volume)Ordered By: Tessy Trinh on 08-03-2022 Dog epithelium IgE Qn (S) <0.10 kU/L Class 0 [facility] Serum perinuclear neutrophil cytoplasmic antibody titer by immunofluorescenceOrdered By: Tessy Trinh on 08-03-2022 Neutrophil cytoplasmic Ab.perinuclear IF (S) [Titer] <1:20 titer Neg:<1:20 [facility] Comment on above: The presence of posi tive fluorescence exhibiting P-ANCA orC-ANCA patterns alone is not specific for the diagnosis ofWegener's Granulomatosis (WG) or microscopic polyangiitis.Decisions about treatment should not be based solely onANCA IFA results. The [employer] ANCA [employer] Consensusrecommends follow up testing of positive sera with both OH-3 and MPO-ANCA enzyme immunoassays. As many as 5% serumsamples are positive only by EIA. Ref. AM J Clin [id number];111:507-513. Serum white elm IgE antibody assay (units/volume)Ordered By: Tessy Trinh on 08-03-2022 [place] IgE Qn (S) <0.10 kU/L Class 0 [facility] Serum white oak IgE antibody assay (units/volume)Ordered By: Tessy Trinh on 08-03-2022 [place] IgE Qn (S) <0.10 kU/L Class 0 [facility] Basophil percentageOrdered B y: Dr. Vega on 06-01-2022 Bilirubin [Mass/Vol] 0.80 mg/dL 0.20-1.00 [facility] Comment on above: For patients on eltr ombopag therapy, use of Dimension [place] TBIL is not recommended. Chloride [Moles/Vol] 101 mmol/L 98-107 [facility] Cholesterol [Mass/Vol] 99 mg/dL <200 [facility] Comment on above: <200 mg/dL Desirable 200-240 mg/dL Borderline >240 mg/dL High Risk Glucose [Mass/Vol] 176 mg/dL 74-106 [facility] Comment on above: Fasting Glucose resu lt greater than or equal to 126 mg/dL suggests DIABETES MELLITUS per A.D.A. criteria. Potassium [Moles/Vol] 4.9 mmol/L 3.5-5.1 [facility] Protein [Mass/Vol] 7.5 g/dL 6.4-8.2 [facility] Sodium [Moles/Vol] 136 mmol/L 136-145 [facility] Triglyceride [Mass/Vol] 54 mg/dL <199 [facility] Comment on above: The drugs N-Acetylcy steine and Metamizole may falsely depress this assay.Serum Triglycerides Reference Interval Normal <150 mg/dL Borderline high 150 - 199 mg/dL High 200 - 499 mg/dL Very High > or = 500 mg/dL Laboratory - Chemistry and C hemistry - challengeOrdered By: Dr. Vega on 06-01-2022 ALP [Catalytic activity/Vol] 104 U/L 45-117 [facility] ALT [Catalytic activity/Vol] 27 U/L 16-61 [facility] CO2 [Moles/Vol] 28.0 mmol/L 21.0-32.0 [facility] Globulin (S) [Mass/Vol] 4.4 g/dL 2.2-4.2 [facility] Urea nitrogen/Creatinine [Mass ratio] 23.5 mg/mg 10-20 [facility] No Panel InformationOrdered By: Dr. Vega on 06-01-2022 Estimated GFR (MDRD) Amer 114 mL/min >60 [facility] Comment on above: GFR Calc Estimated GFR (MDRD) Non-Af Amer 95 mL/min >60 [facility] Comment on above: Non- GFR Calc Thyroid Stimulating Hormone (TSH) 1.67 uIU/mL 0.358-3.74 [facility] Serum or plasma albumin yvonne urement (mass/volume)Ordered By: Dr. Vega on 06-01-2022 Albumin [Mass/Vol] 3.1 g/dL 3.2-5.0 [facility] Serum or plasma albumin/glob ulin mass ratioOrdered By: Dr. Vega on 06-01-2022 Albumin/Globulin [Mass ratio] 0.7 {ratio} 0.9-2.4 [facility] Serum or plasma calcium yvonne urement (mass/volume)Ordered By: Dr. Vega on 06-01-2022 Calcium [Mass/Vol] 8.9 mg/dL 8.5-10.1 [facility] Serum or plasma cholesterol in HDL measurement (mass/volume)Ordered By: Dr. Vega on 06-01-2022 Cholesterol in HDL [Mass/Vol] 40 mg/dL >40 [facility] Comment on above: The drugs N-Acetylcy steine and Metamizole may falsely depress this assay. Reference Range HDL <40 mg/dL Low HDL Cholesterol HDL >or= 60 mg/dL High HDL Cholesterol Serum or plasma cholesterol in VLDL measurement (mass/volume)Ordered By: Dr. Vega on 06-01-2022 Cholesterol in VLDL [Mass/Vol] 11 mg/dL 5-40 [facility] Serum or plasma creatinine m easurement (mass/volume)Ordered By: Dr. Vega on 06-01-2022 Creatinine [Mass/Vol] 0.85 mg/dL 0.70-1.30 [facility] Comment on above: The validity of the calculated GFR & GFRAA in patients over 70 years has not been determined. Clinical correlation is essential. Serum or plasma low density lipoprotein (LDL) cholesterol measurement (mass/volume)Ordered By: Dr. Vega on 06-01-2022 Cholesterol in LDL [Mass/Vol] 48 mg/dL 0-130 [facility] Serum or plasma urea nitroge n measurement (mass/volume)Ordered By: Dr. Vega on 06-01-2022 Urea nitrogen [Mass/Vol] 20 mg/dL 7-18 [facility] Thin prep Papanicolaou smear with manual screeningOrdered By: Dr. Vega on 06-01-2022 Thin prep Papanicolaou smear with manual screening 18 U/L 15-37 [facility] Thin prep Papanicolaou smear with manual screening 7 5-15 [facility] Whole blood hemoglobin A1c/t otal hemoglobin ratio (mass fraction)Ordered By: Dr. Vega on 06-01-2022 HbA1c (Bld) [Mass fraction] 8.1 % 3.8-5.6 [facility] Comment on above: Normal < 5.7 % Predi abetic 5.7 - 6.4 % Diabetic >or= 6.5 % Please note range changes. Basophil percentageOrdered B y: Dr. Vega on 03-11-2022 Bilirubin [Mass/Vol] 0.40 mg/dL 0.20-1.00 [facility] Comment on above: For patients on eltr ombopag therapy, use of Dimension [place] TBIL is not recommended. Chloride [Moles/Vol] 101 mmol/L 98-107 [facility] Cholesterol [Mass/Vol] 89 mg/dL <200 [facility] Comment on above: <200 mg/dL Desirable 200-240 mg/dL Borderline >240 mg/dL High Risk Glucose [Mass/Vol] 191 mg/dL 74-106 [facility] Comment on above: Fasting Glucose resu lt greater than or equal to 126 mg/dL suggests DIABETES MELLITUS per A.D.A. criteria. Potassium [Moles/Vol] 4.7 mmol/L 3.5-5.1 [facility] Protein [Mass/Vol] 7.4 g/dL 6.4-8.2 [facility] Sodium [Moles/Vol] 136 mmol/L 136-145 [facility] Triglyceride [Mass/Vol] 38 mg/dL <199 [facility] Comment on above: The drugs N-Acetylcy steine and Metamizole may falsely depress this assay.Serum Triglycerides Reference Interval Normal <150 mg/dL Borderline high 150 - 199 mg/dL High 200 - 499 mg/dL Very High > or = 500 mg/dL Laboratory - Chemistry and C hemistry - challengeOrdered By: Dr. Vega on 03-11-2022 ALP [Catalytic activity/Vol] 105 U/L 45-117 [facility] ALT [Catalytic activity/Vol] 32 U/L 16-61 [facility] CO2 [Moles/Vol] 30.0 mmol/L 21.0-32.0 [facility] Globulin (S) [Mass/Vol] 4.4 g/dL 2.2-4.2 [facility] Urea nitrogen/Creatinine [Mass ratio] 20.4 mg/mg 10-20 [facility] No Panel InformationOrdered By: Dr. Vega on 03-11-2022 Estimated GFR (MDRD) Amer 110 mL/min >60 [facility] Comment on above: GFR Calc Estimated GFR (MDRD) Non-Af Amer 91 mL/min >60 [facility] Comment on above: Non- GFR Calc Vitamin D 25-Hydroxy 28.6 ng/mL [facility] Comment on above: Vitamin D 25(OH) Sta tus Range Deficiency <20 ng/mL (50nmol/L) Insufficiency 20 - 30 ng/mL (50 - 75 nmol/L) Sufficiency 30 - 100 ng/mL (75 - 250 nmol/L) Toxicity >100 ng/mL (>250 nmol/L) Serum or plasma albumin yvonne urement (mass/volume)Ordered By: Dr. Vega on 03-11-2022 Albumin [Mass/Vol] 3.0 g/dL 3.2-5.0 [facility] Serum or plasma albumin/glob ulin mass ratioOrdered By: Dr. Vega on 03-11-2022 Albumin/Globulin [Mass ratio] 0.7 {ratio} 0.9-2.4 [facility] Serum or plasma calcium yvonne urement (mass/volume)Ordered By: Dr. Vega on 03-11-2022 Calcium [Mass/Vol] 8.8 mg/dL 8.5-10.1 [facility] Serum or plasma cholesterol in HDL measurement (mass/volume)Ordered By: Dr. Vega on 03-11-2022 Cholesterol in HDL [Mass/Vol] 39 mg/dL >40 [facility] Comment on above: The drugs N-Acetylcy steine and Metamizole may falsely depress this assay. Reference Range HDL <40 mg/dL Low HDL Cholesterol HDL >or= 60 mg/dL High HDL Cholesterol Serum or plasma cholesterol in VLDL measurement (mass/volume)Ordered By: Dr. Vega on 03-11-2022 Cholesterol in VLDL [Mass/Vol] 8 mg/dL 5-40 [facility] Serum or plasma creatinine m easurement (mass/volume)Ordered By: Dr. Vega on 03-11-2022 Creatinine [Mass/Vol] 0.88 mg/dL 0.70-1.30 [facility] Comment on above: The validity of the calculated GFR & GFRAA in patients over 70 years has not been determined. Clinical correlation is essential. Serum or plasma low density lipoprotein (LDL) cholesterol measurement (mass/volume)Ordered By: Dr. Vega on 03-11-2022 Cholesterol in LDL [Mass/Vol] 42 mg/dL 0-130 [facility] Serum or plasma urea nitroge n measurement (mass/volume)Ordered By: Dr. Vega on 03-11-2022 Urea nitrogen [Mass/Vol] 18 mg/dL 7-18 [facility] Thin prep Papanicolaou smear with manual screeningOrdered By: Dr. Vega on 03-11-2022 Thin prep Papanicolaou smear with manual screening 15 U/L 15-37 [facility] Thin prep Papanicolaou smear with manual screening 5 5-15 [facility] Whole blood hemoglobin A1c/t otal hemoglobin ratio (mass fraction)Ordered By: Dr. Vega on 03-11-2022 HbA1c (Bld) [Mass fraction] 7.0 % 3.8-5.6 [facility] Comment on above: Normal < 5.7 % Predi abetic 5.7 - 6.4 % Diabetic >or= 6.5 % Please note range changes. CBC W Auto Differential pane l (Bld)on 01-25-2022 Abs Immature Gran 0.06 k/uL <0.10 k/uL [facility] Basophils (Bld) [#/Vol] 0.05 10*3/uL <0.11 k/uL [facility] Basophils/100 WBC (Bld) 0.5 % C [facility] Differential cell count method Nom (Bld) Auto [facility] Eosinophils (Bld) [#/Vol] 0.17 10*3/uL <0.46 k/ uL [facility] Eosinophils/100 WBC (Bld) 1.6 % [facility] Erythrocyte distribution width (RBC) [Ratio] 16.1 % High 11.5 - 15.0 % [facility] Hematocrit (Bld) [Volume fraction] 42.7 % 39.0 - 51.0 % [facility] Hemoglobin (Bld) [Mass/Vol] 13.6 g/dL 13.0 - 17.0 g/dL [facility] Immature Gran % 0.6 % [facility] Lymphocytes (Bld) [#/Vol] 1.77 10*3/uL 1. 00 - 4.00 k/uL [facility] Lymphocytes/100 WBC (Bld) 17.1 % [facility] MCH (RBC) [Entitic mass] 26.0 pg 26. 0 - 34.0 pg [facility] MCHC (RBC) [Mass/Vol] 31.9 g/dL 30.5 - 36.0 g/dL [facility] MCV (RBC) [Entitic vol] 81.5 fL 80.0 - 100.0 fL [facility] Monocytes (Bld) [#/Vol] 0.76 10*3/uL <0.87 k/uL [facility] Monocytes/100 WBC (Bld) 7.3 % C [facility] Neutrophils (Bld) [#/Vol] 7.55 10*3/uL High 1. 45 - 7.50 k/uL [facility] Neutrophils/100 WBC (Bld) 72.9 % [facility] Nucleated RBC (Bld) [#/Vol] <0.01 k/uL [facility] Nucleated RBC/100 WBC (Bld) [Ratio] 0.0 /100 WBC [facility] Platelet mean volume (Bld) [Entitic vol] 9.4 fL 9.0 - 12.7 fL [facility] Platelets (Bld) [#/Vol] 352 10*3/uL 150 - 400 k/uL [facility] RBC (Bld) [#/Vol] 5.24 10*6/uL 4.20 - 6.0 0 m/uL [facility] WBC (Bld) [#/Vol] 10.36 10*3/uL 3.70 - 11.00 k/uL [facility] Comprehensive metabolic 2000 panelon 01-25-2022 Albumin [Mass/Vol] 3.7 g/dL Low 3.9 - 4.9 g/dL [facility] ALP [Catalytic activity/Vol] 106 U/L 38 - 113 U/L [facility] ALT [Catalytic activity/Vol] 19 U/L 10 - 54 U/L [facility] Anion gap [Moles/Vol] 10 mmol/L 9 - 18 mmol/L [facility] AST [Catalytic activity/Vol] 17 U/L 14 - 40 U/L [facility] Bilirubin [Mass/Vol] 0.5 mg/dL 0.2 - 1 .3 mg/dL [facility] Calcium [Mass/Vol] 9.3 mg/dL 8.5 - 10. 2 mg/dL [facility] Chloride [Moles/Vol] 101 mmol/L 97 - 10 5 mmol/L [facility] CO2 [Moles/Vol] 25 mmol/L 22 - 30 mmol/L [facility] Creatinine [Mass/Vol] 0.77 mg/dL 0.73 - 1.22 mg/dL [facility] Estimated Glomerular Filtration Rate 97 mL/min/1.73m >=60 mL/min/1.73 m [facility] Glucose [Mass/Vol] 117 mg/dL High 74 - 99 mg/dL [facility] Potassium [Moles/Vol] 4.0 mmol/L 3.7 - 5.1 mmol/L [facility] Protein [Mass/Vol] 7.3 g/dL 6.3 - 8.0 g/dL [facility] Sodium [Moles/Vol] 136 mmol/L 136 - 144 mmol/L [facility] Urea nitrogen [Mass/Vol] 22 mg/dL 9 - 24 mg/dL [facility] PROTEIN TOTAL BLDon 01-26-20 22 Protein [Mass/Vol] 7.3 g/dL 6.3 - 8.0 g/dL [facility] Basophil percentageon 2021 Bilirubin [Mass/Vol] 0.50 mg/dL 0.20-1.00 [facility] Work Phone: Comment on above: For patients on eltr ombopag therapy, use of Dimension [place] TBIL is not recommended. Chloride [Moles/Vol] 101 mmol/L 98-107 [facility] Work Phone: Glucose [Mass/Vol] 181 mg/dL 74-106 [facility] Work Phone: Comment on above: Fasting Glucose resu lt greater than or equal to 126 mg/dL suggests DIABETES MELLITUS per A.D.A. criteria. Potassium [Moles/Vol] 4.3 mmol/L 3.5-5.1 [facility] Work [facility]: Protein [Mass/Vol] 7.7 g/dL 6.4-8.2 [facility] Work Phone: Sodium [Moles/Vol] 134 mmol/L 136-145 [facility] Work Phone: Laboratory - Chemistry and C hemistry - challengeon 12-18-2021 ALP [Catalytic activity/Vol] 99 U/L 45-117 [facility] Work Phone: ALT [Catalytic activity/Vol] 28 U/L 16-61 [facility] Work Phone: CO2 [Moles/Vol] 29.0 mmol/L 21.0-32.0 [facility] Work Phone: Globulin (S) [Mass/Vol] 4.7 g/dL 2.2-4.2 [facility] Work Phone: Urea nitrogen/Creatinine [Mass ratio] 23.4 mg/mg 10-20 [facility] Work Phone: No Panel Informationon 12-18 Estimated GFR (MDRD) Amer 97 mL/min >60 [facility] Work Phone: Comment on above: GFR Calc Estimated GFR (MDRD) Non-Af Amer 80 mL/min >60 [facility] Work Phone: Comment on above: Non- GFR Calc Serum or plasma albumin yvonne urement (mass/volume)on 12-18-2021 Albumin [Mass/Vol] 3.0 g/dL 3.2-5.0 [facility] Work Phone: Serum or plasma albumin/glob ulin mass ratioon 12-18-2021 Albumin/Globulin [Mass ratio] 0.6 {ratio} 0.9-2.4 [facility] Work Phone: Serum or plasma calcium yvonne urement (mass/volume)on 08-26-2022 Calcium [Mass/Vol] 8.9 mg/dL 8.5-10.1 [facility] Work Phone: Serum or plasma creatinine m easurement (mass/volume)on 12-18-2021 Creatinine [Mass/Vol] 0.98 mg/dL 0.70-1.30 [facility] Work Phone: Comment on above: The validity of the calculated GFR & GFRAA in patients over 70 years has not been determined. Clinical correlation is essential. Serum or plasma urea nitroge n measurement (mass/volume)on 12-18-2021 Urea nitrogen [Mass/Vol] 23 mg/dL 7-18 [facility] Work Phone: Thin prep Papanicolaou smear with manual screeningon 12-18-2021 Thin prep Papanicolaou smear with manual screening 21 U/L 15-37 [facility] Work Phone: Thin prep Papanicolaou smear with manual screening 4 5-15 [facility] Work Phone: Whole blood hemoglobin A1c/t otal hemoglobin ratio (mass fraction)on 12-18-2021 HbA1c (Bld) [Mass fraction] 6.8 % 3.8-5.6 [facility] Work Phone: Comment on above: Normal < 5.7 % Predi abetic 5.7 - 6.4 % Diabetic >or= 6.5 % Please note range changes. Basophil percentageon 2021 Bilirubin [Mass/Vol] 0.50 mg/dL 0.20-1.00 [facility] Work Phone: Comment on above: For patients on eltr ombopag therapy, use of Dimension [place] TBIL is not recommended. Chloride [Moles/Vol] 102 mmol/L 98-107 [facility] Work Phone: Cholesterol [Mass/Vol] 89 mg/dL <200 [facility] Work Phone: Comment on above: <200 mg/dL Desirable 200-240 mg/dL Borderline >240 mg/dL High Risk Glucose [Mass/Vol] 117 mg/dL 74-106 [facility] Work Phone: Comment on above: Fasting Glucose resu lt from 100 to 125 mg/dL suggests IMPAIRED HOMEOSTASIS per A.D.A. criteria. Potassium [Moles/Vol] 4.0 mmol/L 3.5-5.1 [facility] Work Phone: Protein [Mass/Vol] 7.3 g/dL 6.4-8.2 [facility] Work Phone: Sodium [Moles/Vol] 135 mmol/L 136-145 [facility] Work Phone: Triglyceride [Mass/Vol] 44 mg/dL <199 [facility] Work Phone: Comment on above: The drugs N-Acetylcy steine and Metamizole may falsely depress this assay.Serum Triglycerides Reference Interval Normal <150 mg/dL Borderline high 150 - 199 mg/dL High 200 - 499 mg/dL Very High > or = 500 mg/dL Laboratory - Chemistry and C hemistry - challengeon 10-01-2021 ALP [Catalytic activity/Vol] 105 U/L 45-117 [facility] Work Phone: ALT [Catalytic activity/Vol] 31 U/L 16-61 [facility] Work Phone: CO2 [Moles/Vol] 28.0 mmol/L 21.0-32.0 [facility] Work Phone: Globulin (S) [Mass/Vol] 4.3 g/dL 2.2-4.2 [facility] Work Phone: Urea nitrogen/Creatinine [Mass ratio] 21.1 mg/mg 10-20 [facility] Work Phone: No Panel Informationon 10-01 Estimated GFR (MDRD) Amer 114 mL/min >60 [facility] Work Phone: Comment on above: GFR Calc Estimated GFR (MDRD) Non-Af Amer 95 mL/min >60 [facility] Work Phone: Comment on above: Non- GFR Calc Thyroid Stimulating Hormone (TSH) 1.69 uIU/mL 0.358-3.74 [facility] Work Phone: Serum or plasma albumin yvonne urement (mass/volume)on 10-01-2021 Albumin [Mass/Vol] 3.0 g/dL 3.2-5.0 [facility] Work Phone: Serum or plasma albumin/glob ulin mass ratioon 10-01-2021 Albumin/Globulin [Mass ratio] 0.7 {ratio} 0.9-2.4 [facility] Work Phone: Serum or plasma calcium yvonne urement (mass/volume)on 10-01-2021 Calcium [Mass/Vol] 9.0 mg/dL 8.5-10.1 [facility] Work Phone: Serum or plasma cholesterol in HDL measurement (mass/volume)on 10-01-2021 Cholesterol in HDL [Mass/Vol] 35 mg/dL >40 [facility] Work Phone: Comment on above: The drugs N-Acetylcy steine and Metamizole may falsely depress this assay. Reference Range HDL <40 mg/dL Low HDL Cholesterol HDL >or= 60 mg/dL High HDL Cholesterol Serum or plasma cholesterol in VLDL measurement (mass/volume)on 10-01-2021 Cholesterol in VLDL [Mass/Vol] 9 mg/dL 5-40 [facility] Work Phone: Serum or plasma creatinine m easurement (mass/volume)on 10-01-2021 Creatinine [Mass/Vol] 0.85 mg/dL 0.70-1.30 [facility] Work Phone: Comment on above: The validity of the calculated GFR & GFRAA in patients over 70 years has not been determined. Clinical correlation is essential. Serum or plasma low density lipoprotein (LDL) cholesterol measurement (mass/volume)on 10-01-2021 Cholesterol in LDL [Mass/Vol] 45 mg/dL 0-130 [facility] Work Phone: Serum or plasma urea nitroge n measurement (mass/volume)on 10-01-2021 Urea nitrogen [Mass/Vol] 18 mg/dL 7-18 [facility] Work Phone: Thin prep Papanicolaou smear with manual screeningon 10-01-2021 Thin prep Papanicolaou smear with manual screening 19 U/L 15-37 [facility] Work Phone: Thin prep Papanicolaou smear with manual screening 5 5-15 [facility] Work Phone: Whole blood hemoglobin A1c/t otal hemoglobin ratio (mass fraction)on 10-01-2021 HbA1c (Bld) [Mass fraction] 6.9 % 3.8-5.6 [facility] Work Phone: Comment on above: Normal < 5.7 % Predi abetic 5.7 - 6.4 % Diabetic >or= 6.5 % Please note range changes. Basophil percentageon 2021 Bilirubin [Mass/Vol] 0.60 mg/dL 0.20-1.00 [facility] Work Phone: Comment on above: For patients on eltr ombopag therapy, use of Dimension [place] TBIL is not recommended. Chloride [Moles/Vol] 97 mmol/L 98-107 [facility] Work Phone: Cholesterol [Mass/Vol] 94 mg/dL <200 [facility] Work Phone: Comment on above: <200 mg/dL Desirable 200-240 mg/dL Borderline >240 mg/dL High Risk Glucose [Mass/Vol] 136 mg/dL 74-106 [facility] Work Phone: Comment on above: Fasting Glucose resu lt greater than or equal to 126 mg/dL suggests DIABETES MELLITUS per A.D.A. criteria. Potassium [Moles/Vol] 3.9 mmol/L 3.5-5.1 [facility] Work Phone: Protein [Mass/Vol] 7.5 g/dL 6.4-8.2 [facility] Work Phone: Sodium [Moles/Vol] 134 mmol/L 136-145 [facility] Work Phone: Triglyceride [Mass/Vol] 53 mg/dL [facility] Work Phone: Comment on above: The drugs N-Acetylcy steine and Metamizole may falsely depress this assay.Serum Triglycerides Reference Interval Normal <150 mg/dL Borderline high 150 - 199 mg/dL High 200 - 499 mg/dL Very High > or = 500 mg/dL Laboratory - Chemistry and C hemistry - challengeon 07-01-2021 ALP [Catalytic activity/Vol] 99 U/L 45-117 [facility] Work Phone: ALT [Catalytic activity/Vol] 29 U/L 16-61 [facility] Work Phone: CO2 [Moles/Vol] 31.0 mmol/L 21.0-32.0 [facility] Work Phone: Globulin (S) [Mass/Vol] 4.4 g/dL 2.2-4.2 [facility] Work Phone: Urea nitrogen/Creatinine [Mass ratio] 23.1 mg/mg 10-20 [facility] Work Phone: No Panel Informationon 07-01 Estimated GFR (MDRD) Amer 106 mL/min >60 [facility] Work Phone: Comment on above: GFR Calc Estimated GFR (MDRD) Non-Af Amer 88 mL/min >60 [facility] Work Phone: Comment on above: Non- GFR Calc Serum or plasma albumin yvonne urement (mass/volume)on 07-01-2021 Albumin [Mass/Vol] 3.1 g/dL 3.2-5.0 [facility] Work Phone: Serum or plasma albumin/glob ulin mass ratioon 07-01-2021 Albumin/Globulin [Mass ratio] 0.7 {ratio} 0.9-2.4 [facility] Work Phone: Serum or plasma calcium yvonne urement (mass/volume)on 07-01-2021 Calcium [Mass/Vol] 8.8 mg/dL 8.5-10.1 [facility] Work Phone: [phone] Serum or plasma cholesterol in HDL measurement (mass/volume)on 07-01-2021 Cholesterol in HDL [Mass/Vol] 34 mg/dL [facility] Work Phone: Comment on above: The drugs N-Acetylcy steine and Metamizole may falsely depress this assay. Reference Range HDL <40 mg/dL Low HDL Cholesterol HDL >or= 60 mg/dL High HDL Cholesterol Serum or plasma cholesterol in VLDL measurement (mass/volume)on 07-01-2021 Cholesterol in VLDL [Mass/Vol] 11 mg/dL 5-40 [facility] Work Phone: Serum or plasma creatinine m easurement (mass/volume)on 07-01-2021 Creatinine [Mass/Vol] 0.91 mg/dL 0.70-1.30 [facility] Work Phone: Comment on above: The validity of the calculated GFR & GFRAA in patients over 70 years has not been determined. Clinical correlation is essential. Serum or plasma low density lipoprotein (LDL) cholesterol measurement (mass/volume)on 07-01-2021 Cholesterol in LDL [Mass/Vol] 49 mg/dL 0-130 [facility] Work Phone: Serum or plasma urea nitroge n measurement (mass/volume)on 07-01-2021 Urea nitrogen [Mass/Vol] 21 mg/dL 7-18 [facility] Work Phone: Thin prep Papanicolaou smear with manual screeningon 07-01-2021 Thin prep Papanicolaou smear with manual screening 14 U/L 15-37 [facility] Work Phone: Thin prep Papanicolaou smear with manual screening 6 5-15 [facility] Work Phone: Whole blood hemoglobin A1c/t otal hemoglobin ratio (mass fraction)on 07-01-2021 HbA1c (Bld) [Mass fraction] 7.7 % 3.8-5.6 [facility] Work Phone: Comment on above: Normal < 5.7 % Predi abetic 5.7 - 6.4 % Diabetic >or= 6.5 % Please note range changes. Office Visit: OSAon 02-22-20 17 Dietary management education, guidance, and counseling (procedure) yes Invalid Interpretation Code [facility] Work Phone: Documentation of current medications (procedure) Done Invalid Interpretation Code [facility] Work Phone: Tobacco smoking status NHIS Never Invalid Interpretation Code [facility] Work Phone: Tobacco use CPHS Former smoker Invalid Interpretation Code [facility] Work Phone: Chart Maintenanceon 05-25-19 17 Hemoglobin A1c/Hemoglobin.total mass fraction (Bld) 7.0 % Invalid Interpretation Code [facility] Work Phone: Clinical Lists 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 -ST depression + T-abnormality -Seen with left ventricular hypertrophy (strain) or digitalis effect -consider ischemia -Possible Anterior/lateral ischemia. ABNORMAL Invalid Interpretation Code [facility] Work Phone: P [place] 1 deg Invalid Interpretation Code [facility] Work Phone: [place] Interval 0 ms Invalid Interpretation Code [facility] Work Phone: Pulse (Heart Rate) 72 /min Invalid Interpretation Code [facility] Work Phone: QRS Duration 106 ms Invalid Interpretation Code [facility] Work Phone: QT Interval new path ms Invalid Interpretation Code [facility] Work Phone: QTc Patel 417 ms Invalid Interpretation Code [facility] Work Phone: T [place] 180 deg Invalid Interpretation Code [facility] Work Phone: Clinical Lists 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: 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 Alanine aminotransferase (ALT) 33 U/L Invalid Interpretation Code [facility] Work Phone: Alkaline phosphatase (ALP) 102 U/L Inval id Interpretation Code [facility] Work Phone: Aspartate aminotransferase (AST) 17 U/L Invalid Interpretation Code [facility] Work Phone: Bilirubin (total) 0.50 mg/dL Invalid Interpretation Code [facility] Work Phone: BUN/Creatinine Ratio 22.6 mg/mg Invalid Interpretation Code [facility] Work Phone: Calcium 8.5 mg/dL Invalid Interpretation Code [facility] Work Phone: Chloride 104 mmol/L Invalid Interpretation Code [facility] Work Phone: CO2 30.0 mmol/L Invalid Interpretation Code [facility] Work Phone: Creatinine 0.88 mg/dL Invalid Interpretation Code [facility] Work Phone: Glucose mass conc 121 mg/dL Invalid Interpretation Code [facility] Work Phone: Potassium molar conc 3.6 mmol/L Invalid Interpretation Code [facility] Work Phone: Sodium 140 mmol/L Invalid Interpretation Code [facility] Work Phone: Urea nitrogen 20 mg/dL Invalid Interpretation Code [facility] Work Phone: Clinical Lists Update: 10-20-2015 Cholesterol 94 mg/dL Invalid Interpretation Code [facility] Work Phone: HDL Cholesterol 34 mg/dL Invalid Interpretation Code [facility] Work Phone: LDL Cholesterol 49 mg/dL Invalid Interpretation Code [facility] Work Phone: Thyroid stimulating hormone (TSH) 0.98 u[iU]/mL Invalid Interpretation Code [facility] Work Phone: Triglyceride 57 mg/dL Invalid Interpretation Code [facility] Work Phone: BONE MARROW BIOPSY [facility] Vital Signs Date Time Vital Sign Value Performing Clinician Facility 11-07-2024 09:03-0400 Body mass index (BMI) [Ratio] 42.8 kg/m2 Dr. Krishna Mcdaniel DO Work Phone: [facility] 11-07-2024 09:03-0400 Body temperature 97.5 [degF] Dr. Krishna Mcdaniel DO Work Phone: [facility] 11-07-2024 09:03-0400 Body weight 131.[address] Krishna Mcdaniel DO Work Phone: [facility] 11-07-2024 09:03-0400 Diastolic blood pressure 68 mm[Hg] Dr. Krishna Mcdaniel DO Work Phone: [facility] 11-07-2024 09:03-0400 Heart rate 48 /min Dr. Krishna Mcdaniel DO Work Phone: [facility] 11-07-2024 09:03-0400 Inhaled oxygen flow rate 2 L/min Dr. Krishna Mcdaniel DO Work Phone: [facility] 11-07-2024 09:03-0400 Respiratory rate 20 /min Dr. Krishna Mcdaniel DO Work Phone: [facility] 11-07-2024 09:03-0400 SaO2% (BldA) [Mass fraction] 90 % Dr. Krishna Mcdaniel DO Work Phone: [facility] 11-07-2024 09:03-0400 Systolic blood pressure 145 mm[Hg] Dr. Krishna Mcdaniel DO Work Phone: [facility] 10-24-2024 10:00-0400 Body mass index (BMI) [Ratio] 45.01 kg/m2 [facility] Work Phone: [facility] 10-24-2024 10:00-0400 Body temperature 97.81 [degF] [facility] Work Phone: [facility] 10-24-2024 10:00-0400 Body weight 134.26 kg Treatment [facility] Work Phone: [facility] 10-24-2024 10:00-0400 Diastolic blood pressure 52 mm[Hg] [facility] Work Phone: [facility] 10-24-2024 10:00-0400 Heart rate 52 /min [facility] Work Phone: [facility] 10-24-2024 10:00-0400 Respiratory rate 18 /min [facility] Work Phone: [facility] 10-24-2024 10:00-0400 SaO2% (BldA) [Mass fraction] 90 % [facility] Work Phone: [facility] 10-24-2024 10:00-0400 Systolic blood pressure 100 mm[Hg] [facility] Work Phone: [facility] 10-22-2024 12:49-0400 Body mass index (BMI) [Ratio] 43.4 kg/m2 Dr. Krishna Mcdaniel DO Work Phone: [facility] 10-22-2024 12:49-0400 Body weight 133.[address] Krishna Mcdaniel DO Work Phone: [facility] 10-22-2024 12:49-0400 Diastolic blood pressure 67 mm[Hg] Dr. Krishna Mcdaniel DO Work Phone: [facility] 10-22-2024 12:49-0400 Heart rate 50 /min Dr. Krishna Mcdaniel DO Work Phone: [facility] 10-22-2024 12:49-0400 Inhaled oxygen flow rate 2 L/min Dr. Krishna Mcdaniel DO Work Phone: [facility] 10-22-2024 12:49-0400 Respiratory rate 20 /min Dr. Krishna Mcdaniel DO Work Phone: [facility] 10-22-2024 12:49-0400 SaO2% (BldA) [Mass fraction] 92 % Dr. Krishna Mcdaniel DO Work Phone: [facility] 10-22-2024 12:49-0400 Systolic blood pressure 122 mm[Hg] Dr. Krishna Mcdaniel DO Work Phone: [facility] 10-17-2024 12:00-0400 Diastolic blood pressure 65 mm[Hg] Josephine Sutton MD Work Phone: [facility] 10-17-2024 12:00-0400 Heart rate 56 /min Josephine Sutton MD Work Phone: [facility] 10-17-2024 12:00-0400 Respiratory rate 18 /min Josephine Sutton MD Work Phone: [facility] 10-17-2024 12:00-0400 SaO2% (BldA) [Mass fraction] 93 % Josephine Sutton MD Work Phone: [facility] 10-17-2024 12:00-0400 Systolic blood pressure 141 mm[Hg] Josephine Sutton MD Work Phone: [facility] 10-17-2024 11:00-0400 Body temperature 97.9 [degF] Josephine Sutton MD Work Phone: [facility] 10-04-2024 13:52-0400 Body height 172.7 cm Pacc 1 Work Phone: [facility] 10-04-2024 13:52-0400 Body mass index (BMI) [Ratio] 45.71 kg/m2 Pacc 1 Work Phone: [facility] 10-04-2024 13:52-0400 Body temperature 98.8 [degF] Pacc 1 Work Phone: [facility] 10-04-2024 13:52-0400 Body weight 136.35 kg Pacc 1 Work Phone: [facility] 10-04-2024 13:52-0400 Diastolic blood pressure 60 mm[Hg] Pacc 1 Work Phone: [facility] 10-04-2024 13:52-0400 Heart rate 54 /min Pacc 1 Work Phone: [facility] 10-04-2024 13:52-0400 Respiratory rate 18 /min Pacc 1 Work Phone: [facility] 10-04-2024 13:52-0400 SaO2% (BldA) [Mass fraction] 91 % Pacc 1 Work Phone: [facility] Comment on above: on 3 liters O2 via [place] 10-04-2024 13:52-0400 Systolic blood pressure 136 mm[Hg] Pacc 1 Work Phone: [facility] 09-26-2024 11:21-0400 Body mass index (BMI) [Ratio] 46.27 kg/m2 Susan Agustin PEDIATRIC SOCIAL WORKER.[employer] Work Phone: [facility] 09-26-2024 11:21-0400 Body temperature 98.29 [degF] Susan Agustin PEDIATRIC SOCIAL WORKER.[employer] Work Phone: [facility] 09-26-2024 11:21-0400 Body weight 141.3 kg Susan Agustin PEDIATRIC SOCIAL WORKER.[employer]LLER Work Phone: [facility] 09-26-2024 11:21-0400 Diastolic blood pressure 68 mm[Hg] Susan Agustin PEDIATRIC SOCIAL WORKER.[employer]OLLER Work Phone: [facility] 09-26-2024 11:21-0400 Heart rate 67 /min Susan Agustin PEDIATRIC SOCIAL WORKER.[employer] CONTROLLER Work Phone: [facility] 09-26-2024 11:21-0400 SaO2% (BldA) [Mass fraction] 90 % Susan Agustin PEDIATRIC SOCIAL WORKER.[employer] CONTROLLER Work Phone: [facility] 09-26-2024 11:21-0400 Systolic blood pressure 144 mm[Hg] Susan Agustin PEDIATRIC SOCIAL WORKER.[employer]OLLER Work Phone: [facility] 09-21-2024 14:02-0400 Body height 175.[address] Krishna Mcdaniel DO Work Phone: [facility] 09-21-2024 14:02-0400 Body mass index (BMI) [Ratio] 43.9 kg/m2 Dr. Krishna Mcdaniel DO Work Phone: [facility] 09-21-2024 14:02-0400 Body weight 135.[address] Krishna Mcdaniel DO Work Phone: [facility] 09-21-2024 14:02-0400 Diastolic blood pressure 61 mm[Hg] Dr. Krishna Mcdaniel DO Work Phone: [facility] 09-21-2024 14:02-0400 Heart rate 63 /min Dr. Krishna Mcdaniel DO Work Phone: [facility] 09-21-2024 14:02-0400 Inhaled oxygen flow rate 3 L/min Dr. Krishna Mcdaniel DO Work Phone: [facility] 09-21-2024 14:02-0400 Respiratory rate 18 /min Dr. Krishna Mcdaniel DO Work Phone: [facility] 09-21-2024 14:02-0400 SaO2% (BldA) [Mass fraction] 92 % Dr. Krishna Mcdaniel DO Work Phone: [facility] 09-21-2024 14:02-0400 Systolic blood pressure 140 mm[Hg] Dr. Krishna Mcdaniel DO Work Phone: [facility] 09-19-2024 09:00-0400 Body temperature 97.59 [degF] Treatment Wstr Work Phone: [facility] 09-19-2024 09:00-0400 Diastolic blood pressure 58 mm[Hg] Treatment Wstr Work Phone: [facility] 09-19-2024 09:00-0400 Heart rate 76 /min Treatment Wstr Work Phone: [facility] 09-19-2024 09:00-0400 Systolic blood pressure 150 mm[Hg] Treatment Wstr Work Phone: [facility] 09-10-2024 09:43-0400 Body temperature 98.29 [degF] Treatment Wstr Work Phone: [facility] 09-10-2024 09:43-0400 Diastolic blood pressure 52 mm[Hg] Treatment Wstr Work Phone: [facility] 09-10-2024 09:43-0400 Heart rate 82 /min Treatment Wstr Work Phone: [facility] 09-10-2024 09:43-0400 SaO2% (BldA) [Mass fraction] 94 % Treatment Wstr Work Phone: [facility] 09-10-2024 09:43-0400 Systolic blood pressure 105 mm[Hg] Treatment Wstr Work Phone: [facility] 09-06-2024 15:04-0400 Body temperature 98.4 [degF] Treatment Wstr Work Phone: [facility] 09-06-2024 15:04-0400 Diastolic blood pressure 55 mm[Hg] Treatment Wstr Work Phone: [facility] 09-06-2024 15:04-0400 Heart rate 55 /min Treatment Wstr Work Phone: [facility] 09-06-2024 15:04-0400 SaO2% (BldA) [Mass fraction] 94 % Treatment Wstr Work Phone: [facility] 09-06-2024 15:04-0400 Systolic blood pressure 121 mm[Hg] Treatment Wstr Work Phone: [facility] 09-04-2024 08:22-0400 Body mass index (BMI) [Ratio] 47.4 kg/m2 Dr. Krishna Mcdaniel DO Work Phone: [facility] 09-04-2024 08:22-0400 Body temperature 97.4 [degF] Dr. Krishna Mcdaniel DO Work Phone: [facility] 09-04-2024 08:22-0400 Body weight 145.[address] Krishna Mcdaniel DO Work Phone: [facility] 09-04-2024 08:22-0400 Diastolic blood pressure 64 mm[Hg] Dr. Krishna Mcdaniel DO Work Phone: [facility] 09-04-2024 08:22-0400 Heart rate 61 /min Dr. Krishna Mcdaniel DO Work Phone: [facility] 09-04-2024 08:22-0400 Inhaled oxygen flow rate 3 L/min Dr. Krishna Mcdaniel DO Work Phone: [facility] 09-04-2024 08:22-0400 Respiratory rate 18 /min Dr. Krishna Mcdaniel DO Work Phone: [facility] 09-04-2024 08:22-0400 SaO2% (BldA) [Mass fraction] 88 % Dr. Krishna Mcdaniel DO Work Phone: [facility] 09-04-2024 08:22-0400 Systolic blood pressure 103 mm[Hg] Dr. Krishna Mcdaniel DO Work Phone: [facility] 08-14-2024 13:46-0400 Body height 175.[address] Krishna Mcdaniel DO Work Phone: [facility] 08-14-2024 13:46-0400 Body mass index (BMI) [Ratio] 44.6 kg/m2 Dr. Krishna Mcdaniel DO Work Phone: [facility] 08-14-2024 13:46-0400 Body temperature 96.9 [degF] Dr. Krishna Mcdaniel DO Work Phone: [facility] 08-14-2024 13:46-0400 Body weight 137.[address] Krishna Mcdaniel DO Work Phone: [facility] 08-14-2024 13:46-0400 Diastolic blood pressure 52 mm[Hg] Dr. Krishna Mcdaniel DO Work Phone: [facility] 08-14-2024 13:46-0400 Heart rate 78 /min Dr. Krishna Mcdaniel DO Work Phone: [facility] 08-14-2024 13:46-0400 Inhaled oxygen flow rate 2 L/min Dr. Krishna Mcdaniel DO Work Phone: [facility] 08-14-2024 13:46-0400 Respiratory rate 18 /min Dr. Krishna Mcdaniel DO Work Phone: [facility] 08-14-2024 13:46-0400 SaO2% (BldA) [Mass fraction] 88 % Dr. Krishna Mcdaniel DO Work Phone: [facility] 08-14-2024 13:46-0400 Systolic blood pressure 138 mm[Hg] Dr. Krishna Mcdaniel DO Work Phone: [facility] 08-03-2024 14:06-0400 Inhaled oxygen flow rate 2 L/min Dr. Krishna Mcdaniel DO Work Phone: [facility] 08-03-2024 13:13-0400 Body temperature 97.4 [degF] Dr. Krishna Mcdaniel DO Work Phone: [facility] 08-03-2024 13:13-0400 Diastolic blood pressure 55 mm[Hg] Dr. Krishna Mcdaniel DO Work Phone: [facility] 08-03-2024 13:13-0400 Heart rate 63 /min Dr. Krishna Mcdaniel DO Work Phone: [facility] 08-03-2024 13:13-0400 Respiratory rate 18 /min Dr. Krishna Mcdaniel DO Work Phone: [facility] 08-03-2024 13:13-0400 SaO2% (BldA) [Mass fraction] 94 % Dr. Krishna Mcdaniel DO Work Phone: [facility] 08-03-2024 13:13-0400 Systolic blood pressure 150 mm[Hg] Dr. Krishna Mcdaniel DO Work Phone: [facility] 08-03-2024 09:01-0400 Body temperature 98.1 [degF] Dr. Krishna Mcdaniel DO Work Phone: [facility] 08-03-2024 09:01-0400 Diastolic blood pressure 62 mm[Hg] Dr. Krishna Mcdaniel DO Work Phone: [facility] 08-03-2024 09:01-0400 Heart rate 66 /min Dr. Krishna Mcdaniel DO Work Phone: [facility] 08-03-2024 09:01-0400 Respiratory rate 18 /min Dr. Krishna Mcdaniel DO Work Phone: [facility] 08-03-2024 09:01-0400 SaO2% (BldA) [Mass fraction] 96 % Dr. Krishna Mcdaniel DO Work Phone: [facility] 08-03-2024 09:01-0400 Systolic blood pressure 142 mm[Hg] Dr. Krishna Mcdaniel DO Work Phone: [facility] 08-03-2024 06:00-0400 Body mass index (BMI) [Ratio] 44.2 kg/m2 Dr. Krishna Mcdaniel DO Work Phone: [facility] 08-03-2024 06:00-0400 Body weight 135.[address] Krishna Mcdaniel DO Work Phone: [facility] 08-02-2024 12:21-0400 Body height 175.[address] Krishna Mcdaniel DO Work Phone: [facility] 08-01-2024 14:44-0400 Body temperature 98.9 [degF] Dr. Krishna Mcdaniel DO Work Phone: [facility] 08-01-2024 14:44-0400 Diastolic blood pressure 110 mm[Hg] Dr. Krishna Mcdaniel DO Work Phone: [facility] 08-01-2024 14:44-0400 Heart rate 73 /min Dr. Krishna Mcdaniel DO Work Phone: [facility] 08-01-2024 14:44-0400 Respiratory rate 18 /min Dr. Krishna Mcdaniel DO Work Phone: [facility] 08-01-2024 14:44-0400 SaO2% (BldA) [Mass fraction] 94 % Dr. Krishna Mcdaniel DO Work Phone: [facility] 08-01-2024 14:44-0400 Systolic blood pressure 174 mm[Hg] Dr. Krishna Mcdaniel DO Work Phone: [facility] 08-01-2024 14:00-0400 Diastolic blood pressure 75 mm[Hg] Dr. Krishna Mcdaniel DO Work Phone: [facility] 08-01-2024 14:00-0400 Heart rate 89 /min Dr. Krishna Mcdaniel DO Work Phone: [facility] 08-01-2024 14:00-0400 Inhaled oxygen flow rate 2 L/min Dr. Krishna Mcdaniel DO Work Phone: [facility] 08-01-2024 14:00-0400 Respiratory rate 16 /min Dr. Krishna Mcdaniel DO Work Phone: [facility] 08-01-2024 14:00-0400 Systolic blood pressure 156 mm[Hg] Dr. Krishna Mcdaniel DO Work Phone: [facility] 08-01-2024 11:41-0400 Body height 175.[address] Krishna Mcdaniel DO Work Phone: [facility] 07-18-2024 10:36-0400 Body mass index (BMI) [Ratio] 44.6 kg/m2 Dr. Krishna Mcdaniel DO Work Phone: [facility] 07-18-2024 10:36-0400 Body temperature 97.2 [degF] Dr. Krishna Mcdaniel DO Work Phone: [facility] 07-18-2024 10:36-0400 Body weight 136.[address] Krishna Mcdaniel DO Work Phone: [facility] 07-18-2024 10:36-0400 Diastolic blood pressure 92 mm[Hg] Dr. Krishna Mcdaniel DO Work Phone: [facility] 07-18-2024 10:36-0400 Heart rate 72 /min Dr. Krishna Mcdaniel DO Work Phone: [facility] 07-18-2024 10:36-0400 Inhaled oxygen flow rate 3 L/min Dr. Krishna Mcdaniel DO Work Phone: [facility] 07-18-2024 10:36-0400 Respiratory rate 16 /min Dr. Krishna Mcdaniel DO Work Phone: [facility] 07-18-2024 10:36-0400 SaO2% (BldA) [Mass fraction] 91 % Dr. Krishna Mcdaniel DO Work Phone: [facility] 07-18-2024 10:36-0400 Systolic blood pressure 142 mm[Hg] Dr. Krishna Mcdaniel DO Work Phone: [facility] 07-16-2024 13:10-0400 Body mass index (BMI) [Ratio] 45.6 kg/m2 Josephine Sutton MD Work Phone: [facility] 07-16-2024 13:10-0400 Body weight 139.25 kg Josephine Sutton MD Work Phone: [facility] 07-16-2024 13:10-0400 Diastolic blood pressure 58 mm[Hg] Josephine Sutton MD Work Phone: [facility] 07-16-2024 13:10-0400 Heart rate 82 /min Josephine Sutton MD Work Phone: [facility] 07-16-2024 13:10-0400 SaO2% (BldA) [Mass fraction] 93 % Josephine Sutton MD Work Phone: [facility] 07-16-2024 13:10-0400 Systolic blood pressure 126 mm[Hg] Josephine Sutton MD Work Phone: [facility] 07-04-2024 10:16-0400 Body mass index (BMI) [Ratio] 44.86 kg/m2 Katey Booker DO Work Phone: [facility] 07-04-2024 10:16-0400 Body temperature 98.91 [degF] Katey Booker DO Work Phone: [facility] 07-04-2024 10:16-0400 Body weight 136.99 kg Katey Booker DO Work Phone: [facility] Comment on above: 2L of O2 07-04-2024 10:16-0400 Diastolic blood pressure 75 mm[Hg] Katey Booker DO Work Phone: [facility] 07-04-2024 10:16-0400 Heart rate 75 /min Katey Booker DO Work Phone: [facility] 07-04-2024 10:16-0400 SaO2% (BldA) [Mass fraction] 92 % Katey Booker DO Work Phone: [facility] 07-04-2024 10:16-0400 Systolic blood pressure 143 mm[Hg] Katey Booker DO Work Phone: [facility] 06-13-2024 12:33-0500 Body height 175.[address] Krishna Mcdaniel DO Work Phone: [facility] 06-13-2024 12:33-0500 Body mass index (BMI) [Ratio] 46.5 kg/m2 Dr. Krishna Mcdaniel DO Work Phone: [facility] 06-13-2024 12:33-0500 Body temperature 97.1 [degF] Dr. Krishna Mcdaniel DO Work Phone: [facility] 06-13-2024 12:33-0500 Body weight 142.[address] Krishna Mcdaniel DO Work Phone: [facility] 06-13-2024 12:33-0500 Diastolic blood pressure 58 mm[Hg] Dr. Krishna Mcdaniel DO Work Phone: [facility] 06-13-2024 12:33-0500 Heart rate 65 /min Dr. Krishna Mcdaniel DO Work Phone: [facility] 06-13-2024 12:33-0500 Respiratory rate 20 /min Dr. Krishna Mcdaniel DO Work Phone: [facility] 06-13-2024 12:33-0500 SaO2% (BldA) [Mass fraction] 95 % Dr. Krishna Mcdaniel DO Work Phone: [facility] 06-13-2024 12:33-0500 Systolic blood pressure 128 mm[Hg] Dr. Krishna Mcdaniel DO Work Phone: [facility] 06-07-2024 07:55-0500 Body mass index (BMI) [Ratio] 46.5 kg/m2 Dr. Krishna Mcdaniel DO Work Phone: [facility] 06-07-2024 07:55-0500 Body temperature 97.1 [degF] Dr. Krishna Mcdaniel DO Work Phone: [facility] 06-07-2024 07:55-0500 Body weight 142.[address] Krishna Mcdaniel DO Work Phone: [facility] 06-07-2024 07:55-0500 Diastolic blood pressure 69 mm[Hg] Dr. Krishna Mcdaniel DO Work Phone: [facility] 06-07-2024 07:55-0500 Heart rate 68 /min Dr. Krishna Mcdaniel DO Work Phone: [facility] 06-07-2024 07:55-0500 Inhaled oxygen flow rate 2 L/min Dr. Krishna Mcdaniel DO Work Phone: [facility] 06-07-2024 07:55-0500 Respiratory rate 20 /min Dr. Krishna Mcdaniel DO Work Phone: [facility] 06-07-2024 07:55-0500 SaO2% (BldA) [Mass fraction] 90 % Dr. Krishna Mcdaniel DO Work Phone: [facility] 06-07-2024 07:55-0500 Systolic blood pressure 123 mm[Hg] Dr. Krishna Mcdaniel DO Work Phone: [facility] 06-06-2024 10:17-0500 Body mass index (BMI) [Ratio] 46.64 kg/m2 Katey Booker DO Work Phone: [facility] 06-06-2024 10:17-0500 Body temperature 98.49 [degF] Katey Booker DO Work Phone: [facility] 06-06-2024 10:17-0500 Body weight 142.43 kg Katey Booker DO Work Phone: [facility] 06-06-2024 10:17-0500 Diastolic blood pressure 66 mm[Hg] Katey Nicolasacipriano DO Work Phone: [facility] 06-06-2024 10:17-0500 Heart rate 74 /min Katey Booker DO Work Phone: [facility] 06-06-2024 10:17-0500 SaO2% (BldA) [Mass fraction] 91 % Katey Booker DO Work Phone: [facility] Comment on above: 2L of O2 06-06-2024 10:17-0500 Systolic blood pressure 134 mm[Hg] Katey Booker DO Work Phone: [facility] 06-01-2024 15:35-0500 Body mass index (BMI) [Ratio] 46.3 kg/m2 Dr. Krishna Mcdaniel DO Work Phone: [facility] 06-01-2024 15:35-0500 Body weight 142.[address] Krishna Mcdaniel DO Work Phone: [facility] 06-01-2024 15:35-0500 Diastolic blood pressure 66 mm[Hg] Dr. Krishna Mcdaniel DO Work Phone: [facility] 06-01-2024 15:35-0500 Heart rate 56 /min Dr. Krishna Mcdaniel DO Work Phone: [facility] 06-01-2024 15:35-0500 Inhaled oxygen flow rate 2 L/min Dr. Krishna Mcdaniel DO Work Phone: [facility] 06-01-2024 15:35-0500 Respiratory rate 20 /min Dr. Krishna Mcdaniel DO Work Phone: [facility] 06-01-2024 15:35-0500 SaO2% (BldA) [Mass fraction] 90 % Dr. Krishna Mcdaniel DO Work Phone: [facility] 06-01-2024 15:35-0500 Systolic blood pressure 127 mm[Hg] Dr. Krishna Mcdaniel DO Work Phone: [facility] 05-21-2024 15:12-0500 Body temperature 98.1 [degF] Dr. Krishna Mcdaniel DO Work Phone: [facility] 05-21-2024 15:12-0500 Diastolic blood pressure 55 mm[Hg] Dr. Krishna Mcdaniel DO Work Phone: [facility] 05-21-2024 15:12-0500 Heart rate 67 /min Dr. Krishna Mcdaniel DO Work Phone: [facility] 05-21-2024 15:12-0500 Inhaled oxygen flow rate 2 L/min Dr. Krishna Mcdaniel DO Work Phone: [facility] 05-21-2024 15:12-0500 Respiratory rate 18 /min Dr. Krishna Mcdaniel DO Work Phone: [facility] 05-21-2024 15:12-0500 SaO2% (BldA) [Mass fraction] 93 % Dr. Krishna Mcdaniel DO Work Phone: [facility] 05-21-2024 15:12-0500 Systolic blood pressure 155 mm[Hg] Dr. Krishna Mcdaniel DO Work Phone: [facility] 05-19-2024 05:13-0500 Body mass index (BMI) [Ratio] 45.8 kg/m2 Dr. Krishna Mcdaniel DO Work Phone: [facility] 05-19-2024 05:13-0500 Body weight 140.[address] Krishna Mcdaniel DO Work Phone: [facility] 05-09-2024 09:52-0500 Body height 174.7 cm David Mckinney Work Phone: [facility] 05-09-2024 09:52-0500 Body mass index (BMI) [Ratio] 46.57 kg/m2 David Mckinney Work Phone: [facility] 05-09-2024 09:52-0500 Body temperature 98.8 [degF] David Mckinney Work Phone: [facility] 05-09-2024 09:52-0500 Body weight 142.2 kg Davidcarroll Mckinney Work Phone: [facility] 05-09-2024 09:52-0500 Diastolic blood pressure 76 mm[Hg] David Mckinney Work Phone: [facility] 05-09-2024 09:52-0500 Heart rate 69 /min Advid Mckinney Work Phone: [facility] 05-09-2024 09:52-0500 SaO2% (BldA) [Mass fraction] 90 % Davidcarroll Mckinney Work Phone: [facility] 05-09-2024 09:52-0500 Systolic blood pressure 167 mm[Hg] David Mckinney Work Phone: [facility] 04-11-2024 10:35-0500 Body mass index (BMI) [Ratio] 46.22 kg/m2 Katey Masci DO Work Phone: [facility] 04-11-2024 10:35-0500 Body temperature 97.7 [degF] Katey Masci DO Work Phone: [facility] 04-11-2024 10:35-0500 Body weight 141.98 kg Katey Masci DO Work Phone: [facility] 04-11-2024 10:35-0500 Diastolic blood pressure 76 mm[Hg] Katey Masci DO Work Phone: [facility] 04-11-2024 10:35-0500 Heart rate 57 /min Katey Masci DO Work Phone: [facility] 04-11-2024 10:35-0500 SaO2% (BldA) [Mass fraction] 91 % Katey Masci DO Work Phone: [facility] 04-11-2024 10:35-0500 Systolic blood pressure 133 mm[Hg] Katey Masci DO Work Phone: [facility] 03-21-2024 08:08-0500 Body mass index (BMI) [Ratio] 45.29 kg/m2 Alec Villela APRN.CNP Work Phone: [facility] 03-21-2024 08:08-0500 Body temperature 97.59 [degF] Alec Rahboris PEDIATRIC SOCIAL WORKER.[employer]ER Work Phone: [facility] 03-21-2024 08:08-0500 Body weight 139.1 kg Alec Villela PEDIATRIC SOCIAL WORKER.[employer]LLER Work Phone: [facility] 03-21-2024 08:08-0500 Diastolic blood pressure 78 mm[Hg] Alec Villela PEDIATRIC SOCIAL WORKER.[employer] CONTROLLER Work Phone: [facility] 03-21-2024 08:08-0500 Heart rate 82 /min Alec Villela PEDIATRIC SOCIAL WORKER.[employer] CONTROLLER Work Phone: [facility] 03-21-2024 08:08-0500 Respiratory rate 20 /min Alec Villela PEDIATRIC SOCIAL WORKER.[employer] CONTROLLER Work Phone: [facility] 03-21-2024 08:08-0500 SaO2% (BldA) [Mass fraction] 93 % Alec Villela PEDIATRIC SOCIAL WORKER.[employer] CONTROLLER Work Phone: [facility] 03-21-2024 08:08-0500 Systolic blood pressure 122 mm[Hg] Alec Villela PEDIATRIC SOCIAL WORKER.[employer] CONTROLLER Work Phone: [facility] 03-13-2024 10:32-0500 Body mass index (BMI) [Ratio] 44.89 kg/m2 Katey Masci DO Work Phone: [facility] 03-13-2024 10:32-0500 Body temperature 97.5 [degF] Katey Masci DO Work Phone: [facility] 03-13-2024 10:32-0500 Body weight 137.89 kg Katey Masci DO Work Phone: [facility] 03-13-2024 10:32-0500 Diastolic blood pressure 77 mm[Hg] Katey Masci DO Work Phone: [facility] 03-13-2024 10:32-0500 Heart rate 79 /min Katey Masci DO Work Phone: [facility] 03-13-2024 10:32-0500 SaO2% (BldA) [Mass fraction] 94 % Katey Booker DO Work Phone: [facility] 03-13-2024 10:32-0500 Systolic blood pressure 146 mm[Hg] Katey Booker DO Work Phone: [facility] 03-12-2024 13:42-0500 Body mass index (BMI) [Ratio] 45.19 kg/m2 Isabella Traore APRN.[employer]LLER Work Phone: [facility] 03-12-2024 13:42-0500 Body temperature 98.29 [degF] Isabella Traore APRN.[employer] CONTROLLER Work Phone: [facility] 03-12-2024 13:42-0500 Body weight 138.8 kg Isabella Traore APRN.[employer]OLLER Work Phone: [facility] 03-12-2024 13:42-0500 Diastolic blood pressure 84 mm[Hg] Isabella Traore APRN.[employer] CONTROLLER Work Phone: [facility] 03-12-2024 13:42-0500 Heart rate 72 /min Isabella Traore APRN.[employer]OLLER Work Phone: [facility] 03-12-2024 13:42-0500 Respiratory rate 20 /min Isabella Traore APRN.[employer] CONTROLLER Work Phone: [facility] 03-12-2024 13:42-0500 SaO2% (BldA) [Mass fraction] 94 % Isabella Traore APRN.[employer]OLLER Work Phone: [facility] 03-12-2024 13:42-0500 Systolic blood pressure 142 mm[Hg] Isabella Traore APRN.[employer]OLLER Work Phone: [facility] 02-15-2024 10:41-0400 Body mass index (BMI) [Ratio] 44.75 kg/m2 David Mckinney Work Phone: [facility] 02-15-2024 10:41-0400 Body temperature 97.9 [degF] David Mckinney Work Phone: [facility] 02-15-2024 10:41-0400 Body weight 137.44 kg David Mckinney Work Phone: [facility] 02-15-2024 10:41-0400 Diastolic blood pressure 70 mm[Hg] David Mckinney Work Phone: [facility] 02-15-2024 10:41-0400 Heart rate 79 /min David Mckinney Work Phone: [facility] 02-15-2024 10:41-0400 SaO2% (BldA) [Mass fraction] 90 % David Mckinney Work Phone: [facility] 02-15-2024 10:41-0400 Systolic blood pressure 148 mm[Hg] David Mckinney Work Phone: [facility] 01-18-2024 10:22-0400 Body mass index (BMI) [Ratio] 44.01 kg/m2 Katey Baldwini DO Work Phone: [facility] 01-18-2024 10:220400 Body temperature 97.39 [degF] Katey Masci DO Work Phone: [facility] 01-18-2024 10:22-0400 Body weight 135.17 kg Katey Masci DO Work Phone: [facility] 01-18-2024 10:22-0400 Diastolic blood pressure 72 mm[Hg] Katey Masci DO Work Phone: [facility] 01-18-2024 10:22-0400 Heart rate 74 /min Katey Nicolasai DO Work Phone: [facility] 01-18-2024 10:22-0400 SaO2% (BldA) [Mass fraction] 91 % Katey Masci DO Work Phone: [facility] 01-18-2024 10:22-0400 Systolic blood pressure 127 mm[Hg] Katey Masci DO Work Phone: [facility] 12-21-2023 10:04-0400 Body mass index (BMI) [Ratio] 43.71 kg/m2 Katey travelfoxi DO Work Phone: [facility] 12-21-2023 10:04-0400 Body temperature 97.81 [degF] Katey Nicolasai DO Work Phone: [facility] 12-21-2023 10:04-0400 Body weight 134.26 kg Katey travelfoxi DO Work Phone: [facility] 12-21-2023 10:04-0400 Diastolic blood pressure 66 mm[Hg] Katey Nicolasai DO Work Phone: [facility] 12-21-2023 10:04-0400 Heart rate 65 /min Katey Baldwini DO Work Phone: [facility] 12-21-2023 10:04-0400 SaO2% (BldA) [Mass fraction] 92 % Katey travelfoxi DO Work Phone: [facility] 12-21-2023 10:04-0400 Systolic blood pressure 136 mm[Hg] Katey Baldwini DO Work Phone: [facility] 12-07-2023 09:27-0400 Body mass index (BMI) [Ratio] 45.19 kg/m2 Treatment Wstr Work Phone: [facility] 12-07-2023 09:27-0400 Body temperature 97.7 [degF] Treatment Wstr Work Phone: [facility] 12-07-2023 09:27-0400 Body weight 138.8 kg Treatment Wstr Work Phone: [facility] 12-07-2023 09:27-0400 Diastolic blood pressure 56 mm[Hg] Treatment Wstr Work Phone: [facility] 12-07-2023 09:27-0400 Heart rate 66 /min Treatment Wstr Work Phone: [facility] 12-07-2023 09:27-0400 Respiratory rate 20 /min Treatment Wstr Work Phone: [facility] 12-07-2023 09:27-0400 Systolic blood pressure 148 mm[Hg] Treatment Wstr Work Phone: [facility] 11-23-2023 09:04-0400 Body mass index (BMI) [Ratio] 44.38 kg/m2 Katey Baldwini DO Work Phone: [facility] 11-23-2023 09:04-0400 Body temperature 97.7 [degF] Katey Baldwini DO Work Phone: [facility] 11-23-2023 09:04-0400 Body weight 136.31 kg Katey Baldwini DO Work Phone: [facility] 11-23-2023 09:04-0400 Diastolic blood pressure 53 mm[Hg] Katey Baldwini DO Work Phone: [facility] 11-23-2023 09:04-0400 Heart rate 59 /min Katey Baldwini DO Work Phone: [facility] 11-23-2023 09:04-0400 SaO2% (BldA) [Mass fraction] 92 % Katey Booker DO Work Phone: [facility] 11-23-2023 09:04-0400 Systolic blood pressure 126 mm[Hg] Katey Baldwini DO Work Phone: [facility] 11-09-2023 09:54-0400 Body mass index (BMI) [Ratio] 43.27 kg/m2 Treatment Wstr Work Phone: [facility] 11-09-2023 09:54-0400 Body temperature 98.4 [degF] Treatment Wstr Work Phone: [facility] 11-09-2023 09:54-0400 Body weight 132.9 kg Treatment Wstr Work Phone: [facility] 11-09-2023 09:54-0400 Diastolic blood pressure 64 mm[Hg] Treatment Wstr Work Phone: [facility] 11-09-2023 09:54-0400 SaO2% (BldA) [Mass fraction] 94 % Treatment Wstr Work Phone: [facility] 11-09-2023 09:54-0400 Systolic blood pressure 119 mm[Hg] Treatment Wstr Work Phone: [facility] 10-26-2023 08:41-0400 Body temperature 97.3 [degF] Toston Agustin PEDIATRIC SOCIAL WORKER.[employer] Work Phone: [facility] 10-26-2023 08:41-0400 Diastolic blood pressure 74 mm[Hg] Susan Agustin PEDIATRIC SOCIAL WORKER.[employer] Work Phone: [facility] 10-26-2023 08:41-0400 Heart rate 71 /min Toston Agustin PEDIATRIC SOCIAL WORKER.[employer] Work Phone: [facility] 10-26-2023 08:41-0400 SaO2% (BldA) [Mass fraction] 94 % Toston Agustin PEDIATRIC SOCIAL WORKER.[employer] Work Phone: [facility] 10-26-2023 08:41-0400 Systolic blood pressure 138 mm[Hg] Susan Agustin PEDIATRIC SOCIAL WORKER.[employer] Work Phone: [facility] 10-12-2023 11:00-0400 Body temperature 97.39 [degF] Treatment Wstr Work Phone: [facility] 10-12-2023 11:00-0400 Diastolic blood pressure 53 mm[Hg] Treatment Wstr Work Phone: [facility] 10-12-2023 11:00-0400 Heart rate 72 /min Treatment Wstr Work Phone: [facility] 10-12-2023 11:00-0400 SaO2% (BldA) [Mass fraction] 91 % Treatment Wstr Work Phone: [facility] 10-12-2023 11:00-0400 Systolic blood pressure 148 mm[Hg] Treatment Wstr Work Phone: [facility] 10-12-2023 10:56-0400 Body mass index (BMI) [Ratio] 42.09 kg/m2 Treatment Wstr Work Phone: [facility] 10-12-2023 10:56-0400 Body weight 129.28 kg Treatment Wstr Work Phone: [facility] 09-28-2023 09:51-0400 Body mass index (BMI) [Ratio] 43.27 kg/m2 Katey Baldwini DO Work Phone: [facility] 09-28-2023 09:51-0400 Body temperature 97.7 [degF] Katey Nicolasai DO Work Phone: [facility] 09-28-2023 09:51-0400 Body weight 132.9 kg Katey Nicolasai DO Work Phone: [facility] 09-28-2023 09:51-0400 Diastolic blood pressure 66 mm[Hg] Katey Baldwini DO Work Phone: [facility] 09-28-2023 09:51-0400 Heart rate 70 /min Katey Baldwini DO Work Phone: [facility] 09-28-2023 09:51-0400 SaO2% (BldA) [Mass fraction] 91 % Katey Nicolasai DO Work Phone: [facility] 09-28-2023 09:51-0400 Systolic blood pressure 155 mm[Hg] Katey Baldwini DO Work Phone: [facility] 09-14-2023 09:53-0400 Body mass index (BMI) [Ratio] 41.42 kg/m2 Treatment Wstr Work Phone: [facility] 09-14-2023 09:53-0400 Body temperature 97.9 [degF] Treatment Wstr Work Phone: [facility] 09-14-2023 09:53-0400 Body weight 127.23 kg Treatment Wstr Work Phone: [facility] 09-14-2023 09:53-0400 Diastolic blood pressure 66 mm[Hg] Treatment Wstr Work Phone: [facility] 09-14-2023 09:53-0400 Heart rate 80 /min Treatment Wstr Work Phone: [facility] 09-14-2023 09:53-0400 SaO2% (BldA) [Mass fraction] 91 % Treatment Wstr Work Phone: [facility] 09-14-2023 09:53-0400 Systolic blood pressure 143 mm[Hg] Treatment Wstr Work Phone: [facility] 08-31-2023 09:36-0400 Body temperature 97.9 [degF] Treatment Wstr Work Phone: [facility] 08-31-2023 09:36-0400 Heart rate 66 /min Treatment Wstr Work Phone: [facility] 08-30-2023 11:04-0400 Body mass index (BMI) [Ratio] 42.49 kg/m2 Susan Agustin PEDIATRIC SOCIAL WORKER.[employer] Work Phone: [facility] 08-30-2023 11:04-0400 Body temperature 97.59 [degF] Susan Agustin PEDIATRIC SOCIAL WORKER.[employer] Work Phone: [facility] 08-30-2023 11:04-0400 Body weight 130.5 kg Susan Agustin PEDIATRIC SOCIAL WORKER.[employer] Work Phone: [facility] 08-30-2023 11:04-0400 Diastolic blood pressure 69 mm[Hg] Susan Agustin PEDIATRIC SOCIAL WORKER.[employer] Work Phone: [facility] 08-30-2023 11:04-0400 Heart rate 71 /min Susan Agustin PEDIATRIC SOCIAL WORKER.[employer] Work Phone: [facility] 08-30-2023 11:04-0400 SaO2% (BldA) [Mass fraction] 92 % Susan Agustin PEDIATRIC SOCIAL WORKER.[employer] Work Phone: [facility] 08-30-2023 11:04-0400 Systolic blood pressure 174 mm[Hg] Susan Agustin PEDIATRIC SOCIAL WORKER.[employer] Work Phone: [facility] 08-24-2023 10:06-0400 Body mass index (BMI) [Ratio] 41.94 kg/m2 Treatment Wstr Work Phone: [facility] 08-24-2023 10:06-0400 Body temperature 98.29 [degF] Treatment Wstr Work Phone: [facility] 08-24-2023 10:06-0400 Body weight 128.82 kg Treatment Wstr Work Phone: [facility] 08-24-2023 10:06-0400 Diastolic blood pressure 70 mm[Hg] Treatment Wstr Work Phone: [facility] 08-24-2023 10:06-0400 Heart rate 64 /min Treatment Wstr Work Phone: [facility] 08-24-2023 10:06-0400 SaO2% (BldA) [Mass fraction] 93 % Treatment Wstr Work Phone: [facility] 08-24-2023 10:06-0400 Systolic blood pressure 187 mm[Hg] Treatment Wstr Work Phone: [facility] 08-17-2023 08:00-0400 Body mass index (BMI) [Ratio] 42.97 kg/m2 Treatment Wstr Work Phone: [facility] 08-17-2023 08:00-0400 Body temperature 97.39 [degF] Treatment Wstr Work Phone: [facility] 08-17-2023 08:00-0400 Body weight 132 kg Treatment Wstr Work Phone: [facility] 08-17-2023 08:00-0400 Diastolic blood pressure 68 mm[Hg] Treatment Wstr Work Phone: [facility] 08-17-2023 08:00-0400 Heart rate 68 /min Treatment Wstr Work Phone: [facility] 08-17-2023 08:00-0400 Systolic blood pressure 131 mm[Hg] Treatment Wstr Work Phone: [facility] 08-10-2023 09:35-0400 Body temperature 98.1 [degF] Treatment Wstr Work Phone: [facility] 08-10-2023 09:35-0400 Body weight 132 kg Treatment Wstr Work Phone: [facility] 08-10-2023 09:35-0400 Diastolic blood pressure 72 mm[Hg] Treatment Wstr Work Phone: [facility] 08-10-2023 09:35-0400 Heart rate 65 /min Treatment Wstr Work Phone: [facility] 08-10-2023 09:35-0400 Respiratory rate 18 /min Treatment Wstr Work Phone: [facility] 08-10-2023 09:35-0400 SaO2% (BldA) [Mass fraction] 92 % Treatment Wstr Work Phone: [facility] 08-10-2023 09:35-0400 Systolic blood pressure 127 mm[Hg] Treatment Wstr Work Phone: [facility] 08-03-2023 10:34-0400 Body temperature 98.49 [degF] Katey Masci DO Work Phone: [facility] 08-03-2023 10:34-0400 Body weight 129.05 kg Katey Masci DO Work Phone: [facility] 08-03-2023 10:34-0400 Diastolic blood pressure 68 mm[Hg] Katey Masci DO Work Phone: [facility] 08-03-2023 10:34-0400 Heart rate 82 /min Katey Masci DO Work Phone: [facility] 08-03-2023 10:34-0400 SaO2% (BldA) [Mass fraction] 91 % Katey Masci DO Work Phone: [facility] 08-03-2023 10:34-0400 Systolic blood pressure 128 mm[Hg] Katey Masci DO Work Phone: [facility] 07-27-2023 08:40-0400 Body temperature 97.81 [degF] Treatment Wstr Work Phone: [facility] 07-27-2023 08:40-0400 Body weight 129.28 kg Treatment Wstr Work Phone: [facility] 07-27-2023 08:40-0400 Diastolic blood pressure 72 mm[Hg] Treatment Wstr Work Phone: [facility] 07-27-2023 08:40-0400 Heart rate 57 /min Treatment Wstr Work Phone: [facility] 07-27-2023 08:40-0400 SaO2% (BldA) [Mass fraction] 91 % Treatment Wstr Work Phone: [facility] 07-27-2023 08:40-0400 Systolic blood pressure 139 mm[Hg] Treatment Wstr Work Phone: [facility] 07-13-2023 09:00-0400 Body temperature 98.2 [degF] Treatment Wstr Work Phone: [facility] 07-13-2023 09:00-0400 Body weight 130.18 kg Treatment Wstr Work Phone: [facility] 07-13-2023 09:00-0400 Diastolic blood pressure 68 mm[Hg] Treatment Wstr Work Phone: [facility] 07-13-2023 09:00-0400 Heart rate 68 /min Treatment Wstr Work Phone: [facility] 07-13-2023 09:00-0400 Respiratory rate 20 /min Treatment Wstr Work Phone: [facility] 07-13-2023 09:00-0400 SaO2% (BldA) [Mass fraction] 91 % Treatment Wstr Work Phone: [facility] 07-13-2023 09:00-0400 Systolic blood pressure 149 mm[Hg] Treatment Wstr Work Phone: [facility] 07-08-2023 08:26-0400 Body temperature 97.3 [degF] Marcus Day MD Work Phone: [facility] 07-07-2023 13:08-0400 Body height 175.3 cm Marcus Day MD Work Phone: [facility] 07-07-2023 13:08-0400 Body weight 132.5 kg Marcus Day MD Work Phone: [facility] 07-07-2023 13:08-0400 Diastolic blood pressure 74 mm[Hg] Marcus Day MD Work Phone: [facility] 07-07-2023 13:08-0400 Heart rate 41 /min Marcus Day MD Work Phone: [facility] 07-07-2023 13:08-0400 SaO2% (BldA) [Mass fraction] 93 % Marcus Day MD Work Phone: [facility] 07-07-2023 13:08-0400 Systolic blood pressure 164 mm[Hg] Marcus Day MD Work Phone: [facility] 07-06-2023 13:34-0400 Diastolic blood pressure 70 mm[Hg] Treatment Wstr Work Phone: [facility] 07-06-2023 13:34-0400 Heart rate 76 /min Treatment Wstr Work Phone: [facility] 07-06-2023 13:34-0400 Systolic blood pressure 146 mm[Hg] Treatment Wstr Work Phone: [facility] 07-06-2023 08:08-0400 Body temperature 97.9 [degF] Treatment Wstr Work Phone: [facility] 07-06-2023 08:08-0400 Body weight 131.32 kg Treatment Wstr Work Phone: [facility] 07-06-2023 08:08-0400 Respiratory rate 16 /min Treatment Wstr Work Phone: [facility] 07-06-2023 08:08-0400 SaO2% (BldA) [Mass fraction] 96 % Treatment Wstr Work Phone: [facility] 06-13-2023 13:32-0500 Body height 175.3 cm Mana Kuhn APRN.[employer]ER Work Phone: [facility] 06-13-2023 13:32-0500 Body weight 124.29 kg Mana Kuhn APRN.[employer] Work Phone: [facility] 06-08-2023 16:11-0500 Body temperature 97.59 [degF] Katey Booker DO Work Phone: [facility] 06-08-2023 16:11-0500 Body weight 123.61 kg Katey Baldwini DO Work Phone: [facility] 06-08-2023 16:11-0500 Diastolic blood pressure 68 mm[Hg] Katey Baldwini DO Work Phone: [facility] 06-08-2023 16:11-0500 Heart rate 80 /min Katey Baldwini DO Work Phone: [facility] 06-08-2023 16:11-0500 SaO2% (BldA) [Mass fraction] 97 % Katey Baldwini DO Work Phone: [facility] 06-08-2023 16:11-0500 Systolic blood pressure 154 mm[Hg] Katey Baldwini DO Work Phone: [facility] 06-06-2023 14:00-0500 Body temperature 97.81 [degF] Treatment Wstr Work Phone: [facility] 06-06-2023 14:00-0500 Diastolic blood pressure 66 mm[Hg] Treatment Wstr Work Phone: [facility] 06-06-2023 14:00-0500 Heart rate 64 /min Treatment Wstr Work Phone: [facility] 06-06-2023 14:00-0500 Respiratory rate 16 /min Treatment Wstr Work Phone: [facility] 06-06-2023 14:00-0500 SaO2% (BldA) [Mass fraction] 94 % Treatment Wstr Work Phone: [facility] 06-06-2023 14:00-0500 Systolic blood pressure 148 mm[Hg] Treatment Wstr Work Phone: [facility] 06-03-2023 14:44-0500 Body temperature 97.59 [degF] Treatment Wstr Work Phone: [facility] 06-03-2023 14:44-0500 Diastolic blood pressure 61 mm[Hg] Treatment Wstr Work Phone: [facility] 06-03-2023 14:44-0500 Heart rate 58 /min Treatment Wstr Work Phone: [facility] 06-03-2023 14:44-0500 SaO2% (BldA) [Mass fraction] 93 % Treatment Wstr Work Phone: [facility] 06-03-2023 14:44-0500 Systolic blood pressure 128 mm[Hg] Treatment Wstr Work Phone: [facility] 06-01-2023 14:38-0500 Body temperature 97.59 [degF] Treatment Wstr Work Phone: [facility] 06-01-2023 14:38-0500 Diastolic blood pressure 62 mm[Hg] Treatment Wstr Work Phone: [facility] 06-01-2023 14:38-0500 Heart rate 60 /min Treatment Wstr Work Phone: [facility] 06-01-2023 14:38-0500 SaO2% (BldA) [Mass fraction] 95 % Treatment Wstr Work Phone: [facility] 06-01-2023 14:38-0500 Systolic blood pressure 129 mm[Hg] Treatment Wstr Work Phone: [facility] 05-30-2023 14:00-0500 Body temperature 97.9 [degF] Treatment Wstr Work Phone: [facility] 05-30-2023 14:00-0500 Diastolic blood pressure 55 mm[Hg] Treatment Wstr Work Phone: [facility] 05-30-2023 14:00-0500 Heart rate 70 /min Treatment Wstr Work Phone: [facility] 05-30-2023 14:00-0500 Systolic blood pressure 136 mm[Hg] Treatment Wstr Work Phone: [facility] 05-27-2023 13:53-0500 Body height 175.3 cm Mana Kuhn APRN.[employer] Work Phone: [facility] 05-27-2023 13:53-0500 Body weight 124.1 kg Mana Kuhn [employer]ER Work Phone: [facility] 05-26-2023 14:16-0500 Body temperature 98.01 [degF] Treatment Wstr Work Phone: [facility] 05-26-2023 14:16-0500 Diastolic blood pressure 64 mm[Hg] Treatment Wstr Work Phone: [facility] 05-26-2023 14:16-0500 Heart rate 68 /min Treatment Wstr Work Phone: [facility] 05-26-2023 14:16-0500 Respiratory rate 18 /min Treatment Wstr Work Phone: [facility] 05-26-2023 14:16-0500 SaO2% (BldA) [Mass fraction] 94 % Treatment Wstr Work Phone: [facility] 05-26-2023 14:16-0500 Systolic blood pressure 152 mm[Hg] Treatment Wstr Work Phone: [facility] 05-24-2023 11:05-0500 Body height 175 cm Katey Masci DO Work Phone: [facility] 05-24-2023 11:05-0500 Body temperature 98.4 [degF] Katey Masci DO Work Phone: [facility] 05-24-2023 11:05-0500 Body weight 123.83 kg Katey Masci DO Work Phone: [facility] 05-24-2023 11:05-0500 Diastolic blood pressure 63 mm[Hg] Katey Masci DO Work Phone: [facility] 05-24-2023 11:05-0500 Heart rate 55 /min Katey Masci DO Work Phone: [facility] 05-24-2023 11:05-0500 SaO2% (BldA) [Mass fraction] 93 % Katey Masci DO Work Phone: [facility] 05-24-2023 11:05-0500 Systolic blood pressure 110 mm[Hg] Katey Booker DO Work Phone: [facility] 03-15-2023 14:14-0500 Body temperature 98.6 [degF] Treatment Wstr Work Phone: [facility] 03-15-2023 14:14-0500 Body weight 129.96 kg Treatment Wstr Work Phone: [facility] 03-15-2023 14:14-0500 Diastolic blood pressure 63 mm[Hg] Treatment Wstr Work Phone: [facility] 03-15-2023 14:14-0500 Heart rate 83 /min Treatment Wstr Work Phone: [facility] 03-15-2023 14:14-0500 Respiratory rate 18 /min Treatment Wstr Work Phone: [facility] 03-15-2023 14:14-0500 SaO2% (BldA) [Mass fraction] 94 % Treatment Wstr Work Phone: [facility] 03-15-2023 14:14-0500 Systolic blood pressure 146 mm[Hg] Treatment Wstr Work Phone: [facility] 03-14-2023 11:34-0500 Diastolic Blood Pressure Non-Invasive 62 mm[Hg] DR MANFRED LO MD [facility] 03-14-2023 11:34-0500 Heart rate 83 /min DR MANFRED LO MD [facility] 03-14-2023 11:34-0500 Respiratory rate 16 /min DR MANFRED LO MD [facility] 03-14-2023 11:34-0500 Systolic Blood Pressure Non-Invasive 131 mm[Hg] DR MANFRED LO MD [facility] 03-14-2023 11:21-0500 Diastolic Blood Pressure Non-Invasive 66 mm[Hg] DR MANFRED LO MD [facility] 03-14-2023 11:21-0500 Heart rate 82 /min DR MANFRED LO MD [facility] 03-14-2023 11:21-0500 Respiratory rate 19 /min DR MANFRED LO MD [facility] 03-14-2023 11:21-0500 Systolic Blood Pressure Non-Invasive 131 mm[Hg] DR MANFRED LO MD [facility] 03-14-2023 11:15-0500 Body temperature 97.88 [degF] DR MANFRED LO MD [facility] 03-14-2023 11:15-0500 Diastolic Blood Pressure Non-Invasive 51 mm[Hg] DR MANFRED LO MD [facility] 03-14-2023 11:15-0500 Heart rate 65 /min DR MANFRED LO MD [facility] 03-14-2023 11:15-0500 Respiratory rate 24 /min DR MANFRED LO MD [facility] 03-14-2023 11:15-0500 Systolic Blood Pressure Non-Invasive 105 mm[Hg] DR MANFRED LO MD [facility] 03-14-2023 11:10-0500 Respiratory Rate - Anes 31 br/min DR MANFRED LO MD [facility] 03-14-2023 11:05-0500 Respiratory Rate - Anes 5 br/min DR MANFRED LO MD [facility] 03-14-2023 11:00-0500 Respiratory Rate - Anes 26 br/min DR MANFRED LO MD [facility] 03-14-2023 10:24-0500 Body height 177.[address] MANFRED LO MD [facility] 03-14-2023 10:24-0500 Body temperature 98.24 [degF] DR MANFRED LO MD [facility] 03-14-2023 10:24-0500 Body weight 147.[address] MANFRED LO MD [facility] 03-14-2023 10:20-0500 Body height 177.[address] MANFRED LO MD [facility] 03-08-2023 14:26-0500 Diastolic blood pressure 58 mm[Hg] Treatment Wstr Work Phone: [facility] 03-08-2023 14:26-0500 Heart rate 79 /min Treatment Wstr Work Phone: [facility] 03-08-2023 14:26-0500 Systolic blood pressure 132 mm[Hg] Treatment Wstr Work Phone: [facility] 03-08-2023 09:30-0500 Body temperature 97.81 [degF] Treatment Wstr Work Phone: [facility] 03-08-2023 09:30-0500 Body weight 133.81 kg Treatment Wstr Work Phone: [facility] 03-08-2023 09:30-0500 SaO2% (BldA) [Mass fraction] 96 % Treatment Wstr Work Phone: [facility] 03-04-2023 10:13-0500 Body height 175.[address] Krishna Mcdaniel Work Phone: [facility] 03-04-2023 10:13-0500 Body mass index (BMI) [Ratio] 43.1 kg/m2 Dr. Krishna Mcdaniel Work Phone: [facility] 03-04-2023 10:13-0500 Body weight 132.[address] Krishna Mcdaniel Work Phone: [facility] 03-04-2023 10:13-0500 Diastolic blood pressure 63 mm[Hg] Dr. Krishna Mcdaniel Work Phone: [facility] 03-04-2023 10:13-0500 Heart rate 88 /min Dr. Krishna Mcdaniel Work Phone: [facility] 03-04-2023 10:13-0500 Respiratory rate 18 /min Dr. Krishna Mcdaniel Work Phone: [facility] 03-04-2023 10:13-0500 Systolic blood pressure 130 mm[Hg] Dr. Krishna Mcdaniel Work Phone: [facility] 02-25-2023 15:10-0400 Diastolic blood pressure 73 mm[Hg] Dr. Krishna Mcdaniel Work Phone: [facility] 02-25-2023 15:10-0400 Heart rate 73 /min Dr. Krishna Mcdaniel Work Phone: [facility] 02-25-2023 15:10-0400 Inhaled oxygen flow rate 2 L/min Dr. Krishna Mcdaniel Work Phone: [facility] 02-25-2023 15:10-0400 Respiratory rate 14 /min Dr. Krishna Mcdaniel Work Phone: [facility] 02-25-2023 15:10-0400 SaO2% (BldA) [Mass fraction] 97 % Dr. Krishna Mcdaniel Work Phone: [facility] 02-25-2023 15:10-0400 Systolic blood pressure 144 mm[Hg] Dr. Krishna Mcdaniel Work Phone: [facility] 02-25-2023 11:11-0400 Body height 175.[address] Krishna Mcdaniel Work Phone: [facility] 02-25-2023 11:11-0400 Body temperature 97.8 [degF] Dr. Krishna Mcdaniel Work Phone: [facility] 02-23-2023 13:37-0400 Body mass index (BMI) [Ratio] 44.3 kg/m2 Dr. Krishna Mcdaniel Work Phone: [facility] 02-23-2023 13:37-0400 Body temperature 98.4 [degF] Dr. Krishna Mcdaniel Work Phone: [facility] 02-23-2023 13:37-0400 Body weight 136.[address] Krishna Mcdaniel Work Phone: [facility] 02-23-2023 13:37-0400 Diastolic blood pressure 60 mm[Hg] Dr. Krishna Mcdaniel Work Phone: [facility] 02-23-2023 13:37-0400 Heart rate 78 /min Dr. Krishna Mcdaniel Work Phone: [facility] 02-23-2023 13:37-0400 Inhaled oxygen flow rate 2 L/min Dr. Krishna Mcdaniel Work Phone: [facility] 02-23-2023 13:37-0400 Respiratory rate 16 /min Dr. Krishna Mcdaniel Work Phone: [facility] 02-23-2023 13:37-0400 SaO2% (BldA) [Mass fraction] 93 % Dr. Krishna Mcdaniel Work Phone: [facility] 02-23-2023 13:37-0400 Systolic blood pressure 140 mm[Hg] Dr. Krishna Mcdaniel Work Phone: [facility] 02-23-2023 11:35-0400 Body temperature 98.1 [degF] Katey Booker DO Work Phone: [facility] 02-23-2023 11:35-0400 Body weight 136.53 kg Katey Booker DO Work Phone: [facility] 02-23-2023 11:35-0400 Diastolic blood pressure 70 mm[Hg] Katey Booker DO Work Phone: [facility] 02-23-2023 11:35-0400 Heart rate 86 /min Katey Masci DO Work Phone: [facility] 02-23-2023 11:35-0400 SaO2% (BldA) [Mass fraction] 93 % Katey Booker DO Work Phone: [facility] 02-23-2023 11:35-0400 Systolic blood pressure 163 mm[Hg] Katey Booker DO Work Phone: [facility] 02-10-2023 13:11-0400 Body temperature 97.9 [degF] Treatment Wstr Work Phone: [facility] 02-10-2023 13:11-0400 Body weight 137.44 kg Treatment Wstr Work Phone: [facility] 02-10-2023 13:11-0400 Diastolic blood pressure 49 mm[Hg] Treatment Wstr Work Phone: [facility] 02-10-2023 13:11-0400 Heart rate 89 /min Treatment Wstr Work Phone: [facility] 02-10-2023 13:11-0400 Respiratory rate 18 /min Treatment Wstr Work Phone: [facility] 02-10-2023 13:11-0400 SaO2% (BldA) [Mass fraction] 92 % Treatment Wstr Work Phone: [facility] 02-10-2023 13:11-0400 Systolic blood pressure 130 mm[Hg] Treatment Wstr Work Phone: [facility] 02-04-2023 14:58-0400 Body temperature 98.49 [degF] Treatment Wstr Work Phone: [facility] 02-04-2023 14:58-0400 Body weight 140.39 kg Treatment Wstr Work Phone: [facility] 02-04-2023 14:58-0400 Diastolic blood pressure 51 mm[Hg] Treatment Wstr Work Phone: [facility] 02-04-2023 14:58-0400 Heart rate 86 /min Treatment Wstr Work Phone: [facility] 02-04-2023 14:58-0400 Respiratory rate 20 /min Treatment Wstr Work Phone: [facility] 02-04-2023 14:58-0400 SaO2% (BldA) [Mass fraction] 95 % Treatment Wstr Work Phone: [facility] 02-04-2023 14:58-0400 Systolic blood pressure 149 mm[Hg] Treatment Wstr Work Phone: [facility] 02-03-2023 10:00-0400 Body temperature 97.9 [degF] Dr. Krishna Mcdaniel Work Phone: [facility] 02-03-2023 10:00-0400 Diastolic blood pressure 69 mm[Hg] Dr. Krishna Mcdaniel Work Phone: [facility] 02-03-2023 10:00-0400 Heart rate 82 /min Dr. Krishna Mcdaniel Work Phone: [facility] 02-03-2023 10:00-0400 Inhaled oxygen flow rate 2 L/min Dr. Krishna Mcdaniel Work Phone: [facility] 02-03-2023 10:00-0400 Respiratory rate 16 /min Dr. Krishna Mcdaniel Work Phone: [facility] 02-03-2023 10:00-0400 SaO2% (BldA) [Mass fraction] 96 % Dr. Krishna Mcdaniel Work Phone: [facility] 02-03-2023 10:00-0400 Systolic blood pressure 136 mm[Hg] Dr. Krishna Mcdaniel Work Phone: [facility] 02-02-2023 15:09-0400 Body mass index (BMI) [Ratio] 46 kg/m2 Dr. Krishna Mcdaniel Work Phone: [facility] 02-02-2023 15:09-0400 Body weight 141.[address] Krishna Mcdaniel Work Phone: [facility] 01-27-2023 13:19-0400 Body temperature 98.01 [degF] Treatment Wstr Work Phone: [facility] 01-27-2023 13:19-0400 Diastolic blood pressure 65 mm[Hg] Treatment Wstr Work Phone: [facility] 01-27-2023 13:19-0400 Heart rate 86 /min Treatment Wstr Work Phone: [facility] 01-27-2023 13:19-0400 Respiratory rate 20 /min Treatment Wstr Work Phone: [facility] 01-27-2023 13:19-0400 SaO2% (BldA) [Mass fraction] 92 % Treatment Wstr Work Phone: [facility] 01-27-2023 13:19-0400 Systolic blood pressure 112 mm[Hg] Treatment Wstr Work Phone: [facility] 01-26-2023 14:50-0400 Body temperature 99.5 [degF] Katey Masci DO Work Phone: [facility] 01-26-2023 14:50-0400 Body weight 141.75 kg Katey Masci DO Work Phone: [facility] 01-26-2023 14:50-0400 Diastolic blood pressure 70 mm[Hg] Katey Masci DO Work Phone: [facility] 01-26-2023 14:50-0400 Heart rate 85 /min Katey Masci DO Work Phone: [facility] 01-26-2023 14:50-0400 SaO2% (BldA) [Mass fraction] 89 % Katey Masci DO Work Phone: [facility] 01-26-2023 14:50-0400 Systolic blood pressure 133 mm[Hg] Katey Masci DO Work Phone: [facility] 01-20-2023 13:49-0400 Body mass index (BMI) [Ratio] 46.9 kg/m2 Dr. Krishna Mcdaniel Work Phone: [facility] 01-20-2023 13:49-0400 Body weight 144.[address] Krishna Mcdaniel Work Phone: [facility] 01-20-2023 13:49-0400 Diastolic blood pressure 67 mm[Hg] Dr. Krishna Mcdaniel Work Phone: [facility] 01-20-2023 13:49-0400 Heart rate 93 /min Dr. Krishna Mcdaniel Work Phone: [facility] 01-20-2023 13:49-0400 Respiratory rate 22 /min Dr. Krishna Mcdaniel Work Phone: [facility] 01-20-2023 13:49-0400 SaO2% (BldA) [Mass fraction] 92 % Dr. Krishna Mcdaniel Work Phone: [facility] 01-20-2023 13:49-0400 Systolic blood pressure 175 mm[Hg] Dr. Krishna Mcdaniel Work Phone: [facility] 01-18-2023 11:40-0400 Body mass index (BMI) [Ratio] 47.1 kg/m2 Dr. Krishna Mcdaniel Work Phone: [facility] 01-18-2023 11:40-0400 Body temperature 97.9 [degF] Dr. Krishna Mcdaniel Work Phone: [facility] 01-18-2023 11:40-0400 Body weight 144.[address] Krishna Mcdaniel Work Phone: [facility] 01-18-2023 11:40-0400 Diastolic blood pressure 60 mm[Hg] Dr. Krishna Mcdaniel Work Phone: [facility] 01-18-2023 11:40-0400 Heart rate 83 /min Dr. Krishna Mcdaniel Work Phone: [facility] 01-18-2023 11:40-0400 Inhaled oxygen flow rate 2 L/min Dr. Krishna Mcdaniel Work Phone: [facility] 01-18-2023 11:40-0400 Respiratory rate 26 /min Dr. Krishna Mcdaniel Work Phone: [facility] 01-18-2023 11:40-0400 SaO2% (BldA) [Mass fraction] 97 % Dr. Krishna Mcdaniel Work Phone: [facility] 01-18-2023 11:40-0400 Systolic blood pressure 124 mm[Hg] Dr. Krishna Mcdaniel Work Phone: [facility] 01-13-2023 11:15-0400 Body temperature 99.19 [degF] Treatment Wstr Work Phone: [facility] 01-13-2023 11:15-0400 Body weight 144.24 kg Treatment Wstr Work Phone: [facility] 01-13-2023 11:15-0400 Diastolic blood pressure 69 mm[Hg] Treatment Wstr Work Phone: [facility] 01-13-2023 11:15-0400 Heart rate 77 /min Treatment Wstr Work Phone: [facility] 01-13-2023 11:15-0400 Respiratory rate 16 /min Treatment Wstr Work Phone: [facility] 01-13-2023 11:15-0400 SaO2% (BldA) [Mass fraction] 93 % Treatment Wstr Work Phone: [facility] 01-13-2023 11:15-0400 Systolic blood pressure 144 mm[Hg] Treatment Wstr Work Phone: [facility] 01-11-2023 13:46-0400 Body temperature 98.01 [degF] Treatment Wstr Work Phone: [facility] 01-11-2023 13:46-0400 Diastolic blood pressure 68 mm[Hg] Treatment Wstr Work Phone: [facility] 01-11-2023 13:46-0400 Heart rate 87 /min Treatment Wstr Work Phone: [facility] 01-11-2023 13:46-0400 Respiratory rate 20 /min Treatment Wstr Work Phone: [facility] 01-11-2023 13:46-0400 Systolic blood pressure 155 mm[Hg] Treatment Wstr Work Phone: [facility] 01-06-2023 14:00-0400 Body temperature 98.71 [degF] Treatment Wstr Work Phone: [facility] 01-06-2023 14:00-0400 Diastolic blood pressure 55 mm[Hg] Treatment Wstr Work Phone: [facility] 01-06-2023 14:00-0400 Heart rate 94 /min Treatment Wstr Work Phone: [facility] 01-06-2023 14:00-0400 Systolic blood pressure 98 mm[Hg] Treatment Wstr Work Phone: [facility] 01-04-2023 13:00-0400 Body temperature 98.71 [degF] Treatment Wstr Work Phone: [facility] 01-04-2023 13:00-0400 Body weight 144.24 kg Treatment Wstr Work Phone: [facility] 01-04-2023 13:00-0400 Diastolic blood pressure 57 mm[Hg] Treatment Wstr Work Phone: [facility] 01-04-2023 13:00-0400 Heart rate 72 /min Treatment Wstr Work Phone: [facility] 01-04-2023 13:00-0400 Systolic blood pressure 145 mm[Hg] Treatment Wstr Work Phone: [facility] 12-30-2022 10:09-0400 Body temperature 99.5 [degF] Katey Masci DO Work Phone: [facility] 12-30-2022 10:09-0400 Body weight 145.15 kg Katey Masci DO Work Phone: [facility] 12-30-2022 10:09-0400 Diastolic blood pressure 72 mm[Hg] Katey Masci DO Work Phone: [facility] 12-30-2022 10:09-0400 Heart rate 80 /min Katey Masci DO Work Phone: [facility] 12-30-2022 10:09-0400 SaO2% (BldA) [Mass fraction] 91 % Katey Booker DO Work Phone: [facility] 12-30-2022 10:09-0400 Systolic blood pressure 137 mm[Hg] Katey Booker DO Work Phone: [facility] 12-24-2022 11:46-0400 Body height 175.[address] Krishna Mcdaniel Work Phone: [facility] 12-24-2022 11:46-0400 Body mass index (BMI) [Ratio] 47.2 kg/m2 Dr. Krishna Mcdaniel Work Phone: [facility] 12-24-2022 11:46-0400 Body temperature 97.1 [degF] Dr. Krishna Mcdaniel Work Phone: [facility] 12-24-2022 11:46-0400 Body weight 145.[address] Krishna Mcdaniel Work Phone: [facility] 12-24-2022 11:46-0400 Diastolic blood pressure 62 mm[Hg] Dr. Krishna Mcdaniel Work Phone: [facility] 12-24-2022 11:46-0400 Heart rate 94 /min Dr. Krishna Mcdaniel Work Phone: [facility] 12-24-2022 11:46-0400 Inhaled oxygen flow rate 2 L/min Dr. Krishna Mcdaniel Work Phone: [facility] 12-24-2022 11:46-0400 Respiratory rate 20 /min Dr. Krishna Mcdaniel Work Phone: [facility] 12-24-2022 11:46-0400 SaO2% (BldA) [Mass fraction] 94 % Dr. Krishna Mcdaniel Work Phone: [facility] 12-24-2022 11:46-0400 Systolic blood pressure 166 mm[Hg] Dr. Krishna Mcdanile Work Phone: [facility] 12-22-2022 09:48-0400 Body temperature 98.71 [degF] Katey Booker DO Work Phone: [facility] 12-22-2022 09:48-0400 Body weight 143.34 kg Katey Booker DO Work Phone: [facility] 12-22-2022 09:48-0400 Diastolic blood pressure 55 mm[Hg] Katey Booker DO Work Phone: [facility] 12-22-2022 09:48-0400 Heart rate 70 /min Katey Booker DO Work Phone: [facility] 12-22-2022 09:48-0400 SaO2% (BldA) [Mass fraction] 95 % Katey Booker DO Work Phone: [facility] 12-22-2022 09:48-0400 Systolic blood pressure 119 mm[Hg] Katey Booker DO Work Phone: [facility] 12-20-2022 15:57-0400 Inhaled oxygen flow rate 2 L/min Dr. Krishna Mcdaniel Work Phone: [facility] 12-20-2022 15:56-0400 Body temperature 98 [degF] Dr. Krishna Mcdaniel Work Phone: [facility] 12-20-2022 15:56-0400 Diastolic blood pressure 58 mm[Hg] Dr. Krishna Mcdaniel Work Phone: [facility] 12-20-2022 15:56-0400 Heart rate 78 /min Dr. Krishna Mcdaniel Work Phone: [facility] 12-20-2022 15:56-0400 Respiratory rate 17 /min Dr. Kirshna Mcdaniel Work Phone: [facility] 12-20-2022 15:56-0400 SaO2% (BldA) [Mass fraction] 94 % Dr. Krishna Mcdaniel Work Phone: [facility] 12-20-2022 15:56-0400 Systolic blood pressure 122 mm[Hg] Dr. Krishna Mcdaniel Work Phone: [facility] 12-18-2022 04:15-0400 Body mass index (BMI) [Ratio] 47.5 kg/m2 Dr. Krishna Mcdaniel Work Phone: [facility] 12-18-2022 04:15-0400 Body weight 146.[address] Krishna Mcdanile Work Phone: [facility] 12-17-2022 14:41-0400 Body height 175.[address] Krishna Mcdaniel Work Phone: [facility] 12-16-2022 22:29-0400 Body temperature 98.8 [degF] Dr. Krishna Mcdaniel Work Phone: [facility] 12-16-2022 22:29-0400 Diastolic blood pressure 56 mm[Hg] Dr. Krishna Mcdaniel Work Phone: [facility] 12-16-2022 22:29-0400 Heart rate 73 /min Dr. Krishna Mcdaniel Work Phone: [facility] 12-16-2022 22:29-0400 Inhaled oxygen flow rate 5.5 L/min Dr. Krishna Mcdaniel Work Phone: [facility] 12-16-2022 22:29-0400 Respiratory rate 24 /min Dr. Krishna Mcdaniel Work Phone: [facility] 12-16-2022 22:29-0400 SaO2% (BldA) [Mass fraction] 94 % Dr. Krishna Mcdaniel Work Phone: [facility] 12-16-2022 22:29-0400 Systolic blood pressure 133 mm[Hg] Dr. Krishna Mcdaniel Work Phone: [facility] 12-16-2022 18:18-0400 Body height 177.[address] Krishna Mcdaniel Work Phone: [facility] 12-16-2022 18:18-0400 Body mass index (BMI) [Ratio] 46.9 kg/m2 Dr. Krishna Mcdaniel Work Phone: [facility] 12-16-2022 18:18-0400 Body weight 148.[address] Krishna Mcdaniel Work Phone: [facility] 12-09-2022 13:05-0400 Body temperature 98.01 [degF] Treatment Wstr Work Phone: [facility] 12-09-2022 13:05-0400 Body weight 144.92 kg Treatment Wstr Work Phone: [facility] 12-09-2022 13:05-0400 Diastolic blood pressure 43 mm[Hg] Treatment Wstr Work Phone: [facility] 12-09-2022 13:05-0400 Heart rate 71 /min Treatment Wstr Work Phone: [facility] 12-09-2022 13:05-0400 SaO2% (BldA) [Mass fraction] 93 % Treatment Wstr Work Phone: [facility] 12-09-2022 13:05-0400 Systolic blood pressure 132 mm[Hg] Treatment Wstr Work Phone: [facility] 12-02-2022 13:02-0400 Body temperature 99.1 [degF] Treatment Wstr Work Phone: [facility] 12-02-2022 13:02-0400 Body weight 142.43 kg Treatment Wstr Work Phone: [facility] 12-02-2022 13:02-0400 Diastolic blood pressure 64 mm[Hg] Treatment Wstr Work Phone: [facility] 12-02-2022 13:02-0400 Heart rate 76 /min Treatment Wstr Work Phone: [facility] 12-02-2022 13:02-0400 Respiratory rate 20 /min Treatment Wstr Work Phone: [facility] 12-02-2022 13:02-0400 Systolic blood pressure 122 mm[Hg] Treatment Wstr Work Phone: [facility] 11-25-2022 13:00-0400 Body temperature 98.1 [degF] Treatment Wstr Work Phone: [facility] 11-25-2022 13:00-0400 Diastolic blood pressure 52 mm[Hg] Treatment Wstr Work Phone: [facility] 11-25-2022 13:00-0400 Heart rate 72 /min Treatment Wstr Work Phone: [facility] 11-25-2022 13:00-0400 Systolic blood pressure 144 mm[Hg] Treatment Wstr Work Phone: [facility] 11-24-2022 08:44-0400 Body height 177.[address] Krishna Mcdaniel Work Phone: [facility] 11-24-2022 08:44-0400 Body mass index (BMI) [Ratio] 44.9 kg/m2 Dr. Krishna Mcdaniel Work Phone: [facility] 11-24-2022 08:44-0400 Body temperature 97.6 [degF] Dr. Krishna Mcdaniel Work Phone: [facility] 11-24-2022 08:44-0400 Body weight 141.[address] Krishna Mcdaniel Work Phone: [facility] 11-24-2022 08:44-0400 Diastolic blood pressure 75 mm[Hg] Dr. Krishna Mcdaniel Work Phone: [facility] 11-24-2022 08:44-0400 Heart rate 70 /min Dr. Krishna Mcdaniel Work Phone: [facility] 11-24-2022 08:44-0400 Inhaled oxygen flow rate 2 L/min Dr. Krishna Mcdaniel Work Phone: [facility] 11-24-2022 08:44-0400 Respiratory rate 18 /min Dr. Krishna Mcdaniel Work Phone: [facility] 11-24-2022 08:44-0400 SaO2% (BldA) [Mass fraction] 95 % Dr. Krishna Mcdaniel Work Phone: [facility] 11-24-2022 08:44-0400 Systolic blood pressure 152 mm[Hg] Dr. Krishna Mcdaniel Work Phone: [facility] 11-04-2022 13:00-0400 Body temperature 98.29 [degF] Treatment Wstr Work Phone: [facility] 11-04-2022 13:00-0400 Body weight 143.79 kg Treatment Wstr Work Phone: [facility] 11-04-2022 13:00-0400 Diastolic blood pressure 54 mm[Hg] Treatment Wstr Work Phone: [facility] 11-04-2022 13:00-0400 Heart rate 92 /min Treatment Wstr Work Phone: [facility] 11-04-2022 13:00-0400 SaO2% (BldA) [Mass fraction] 93 % Treatment Wstr Work Phone: [facility] 11-04-2022 13:00-0400 Systolic blood pressure 167 mm[Hg] Treatment Wstr Work Phone: [facility] 11-02-2022 19:55-0400 Diastolic blood pressure 81 mm[Hg] Dr. Krishna Mcdaniel Work Phone: [facility] 11-02-2022 19:55-0400 Heart rate 75 /min Dr. Krishna Mcdaniel Work Phone: [facility] 11-02-2022 19:55-0400 Respiratory rate 24 /min Dr. Krishna Mcdaniel Work Phone: [facility] 11-02-2022 19:55-0400 SaO2% (BldA) [Mass fraction] 90 % Dr. Krishna Mcdaniel Work Phone: [facility] 11-02-2022 19:55-0400 Systolic blood pressure 169 mm[Hg] Dr. Krishna Mcdaniel Work Phone: [facility] 11-02-2022 15:51-0400 Body height 177.[address] Krishna Mcdaniel Work Phone: [facility] 11-02-2022 15:51-0400 Body mass index (BMI) [Ratio] 45 kg/m2 Dr. Krishna Mcdaniel Work Phone: [facility] 11-02-2022 15:51-0400 Body temperature 97.5 [degF] Dr. Krishna Mcdaniel Work Phone: [facility] 11-02-2022 15:51-0400 Body weight 142.[address] Krishna Mcdaniel Work Phone: [facility] 10-28-2022 14:34-0400 Body temperature 97.5 [degF] Treatment Wstr Work Phone: [facility] 10-28-2022 14:34-0400 Body weight 144.02 kg Treatment Wstr Work Phone: [facility] 10-28-2022 14:34-0400 Diastolic blood pressure 67 mm[Hg] Treatment Wstr Work Phone: [facility] 10-28-2022 14:34-0400 Heart rate 75 /min Treatment Wstr Work Phone: [facility] 10-28-2022 14:34-0400 SaO2% (BldA) [Mass fraction] 92 % Treatment Wstr Work Phone: [facility] 10-28-2022 14:34-0400 Systolic blood pressure 159 mm[Hg] Treatment Wstr Work Phone: [facility] 10-14-2022 10:10-0400 Body mass index (BMI) [Ratio] 47.2 kg/m2 Dr. Krishna Mcdaniel Work Phone: [facility] 10-14-2022 10:10-0400 Body weight 145.[address] Krishna Mcdaniel Work Phone: [facility] 10-14-2022 10:10-0400 Diastolic blood pressure 63 mm[Hg] Dr. Krishna Mcdaniel Work Phone: [facility] 10-14-2022 10:10-0400 Heart rate 66 /min Dr. Krishna Mcdaniel Work Phone: [facility] 10-14-2022 10:10-0400 Respiratory rate 16 /min Dr. Krishna Mcdaniel Work Phone: [facility] 10-14-2022 10:10-0400 Systolic blood pressure 138 mm[Hg] Dr. Krishna Mcdaniel Work Phone: [facility] 10-12-2022 06:36-0400 Body mass index (BMI) [Ratio] 46.7 kg/m2 Dr. Krishna Mcdaniel Work Phone: [facility] 10-12-2022 06:36-0400 Body temperature 97.1 [degF] Dr. Krishna Mcdaniel Work Phone: [facility] 10-12-2022 06:36-0400 Body weight 143.[address] Krishna Mcdaniel Work Phone: [facility] 10-12-2022 06:36-0400 Diastolic blood pressure 68 mm[Hg] Dr. Krishna Mcdaniel Work Phone: [facility] 10-12-2022 06:36-0400 Heart rate 80 /min Dr. Krishna Mcdaniel Work Phone: [facility] 10-12-2022 06:36-0400 Respiratory rate 18 /min Dr. Krishna Mcdaniel Work Phone: [facility] 10-12-2022 06:36-0400 SaO2% (BldA) [Mass fraction] 90 % Dr. Krishna Mcdaniel Work Phone: [facility] 10-12-2022 06:36-0400 Systolic blood pressure 148 mm[Hg] Dr. Krishna Mcdaniel Work Phone: [facility] 09-24-2022 11:21-0400 Body temperature 98.2 [degF] Katey Booker DO Work Phone: [facility] 09-24-2022 11:21-0400 Body weight 146.74 kg Katey Booker DO Work Phone: [facility] 09-24-2022 11:21-0400 Diastolic blood pressure 66 mm[Hg] Katey Booker DO Work Phone: [facility] 09-24-2022 11:21-0400 Heart rate 84 /min Katey Masci DO Work Phone: [facility] 09-24-2022 11:21-0400 SaO2% (BldA) [Mass fraction] 92 % Katey Booker DO Work Phone: [facility] 09-24-2022 11:21-0400 Systolic blood pressure 170 mm[Hg] Katey Booker DO Work Phone: [facility] 09-22-2022 13:31-0400 Diastolic blood pressure 63 mm[Hg] Toston Agustin PEDIATRIC SOCIAL WORKER.[employer] Work Phone: [facility] 09-22-2022 13:31-0400 Heart rate 86 /min Toston Agustin PEDIATRIC SOCIAL WORKER.[employer] Work Phone: [facility] 09-22-2022 13:31-0400 Systolic blood pressure 135 mm[Hg] Toston Agustin PEDIATRIC SOCIAL WORKER.[employer] Work Phone: [facility] 09-22-2022 12:56-0400 Body temperature 98.2 [degF] Susan Agustin PEDIATRIC SOCIAL WORKER.[employer]ER Work Phone: [facility] 09-22-2022 12:56-0400 Body weight 146.51 kg Toston Agustin PEDIATRIC SOCIAL WORKER.[employer] Work Phone: [facility] 08-03-2022 08:32-0400 Body height 175.[address] Krishna Mcdaniel Work Phone: [facility] 08-03-2022 08:32-0400 Body mass index (BMI) [Ratio] 47.7 kg/m2 Dr. Krishna Mcdaniel Work Phone: [facility] 08-03-2022 08:32-0400 Body temperature 98.4 [degF] Dr. Krishna Mcdaniel Work Phone: [facility] 08-03-2022 08:32-0400 Body weight 146.[address] Krishna Mcdaniel Work Phone: [facility] 08-03-2022 08:32-0400 Diastolic blood pressure 71 mm[Hg] Dr. Krishna Mcdaniel Work Phone: [facility] 08-03-2022 08:32-0400 Heart rate 76 /min Dr. Krishna Mcdaniel Work Phone: [facility] 08-03-2022 08:32-0400 Respiratory rate 18 /min Dr. Krishna Mcdaniel Work Phone: [facility] 08-03-2022 08:32-0400 SaO2% (BldA) [Mass fraction] 90 % Dr. Krishna Mcdaniel Work Phone: [facility] 08-03-2022 08:32-0400 Systolic blood pressure 193 mm[Hg] Dr. Krishna Mcdaniel Work Phone: [facility] 07-05-2022 10:32-0400 Body mass index (BMI) [Ratio] 48.2 kg/m2 Dr. Krishna Mcdaniel Work Phone: [facility] 07-05-2022 10:32-0400 Body temperature 98.4 [degF] Dr. Krishna Mcdaniel Work Phone: [facility] 07-05-2022 10:32-0400 Body weight 148.[address] Krishna Mcdaniel Work Phone: [facility] 07-05-2022 10:32-0400 Diastolic blood pressure 80 mm[Hg] Dr. Krishna Mcdaniel Work Phone: [facility] 07-05-2022 10:32-0400 Heart rate 74 /min Dr. Krishna Mcdaniel Work Phone: [facility] 07-05-2022 10:32-0400 Respiratory rate 22 /min Dr. Krishna Mcdaniel Work Phone: [facility] 07-05-2022 10:32-0400 SaO2% (BldA) [Mass fraction] 93 % Dr. Krishna Mcdaniel Work Phone: [facility] 07-05-2022 10:32-0400 Systolic blood pressure 157 mm[Hg] Dr. Krishna Mcdaniel Work Phone: [facility] 05-14-2022 13:02-0500 Body height 175.[address] Krishna Mcdaniel Work Phone: [facility] 05-14-2022 13:02-0500 Body mass index (BMI) [Ratio] 49 kg/m2 Dr. Krishna Mcdaniel Work Phone: [facility] 05-14-2022 13:02-0500 Body weight 150.[address] Krishna Mcdaniel Work Phone: [facility] 05-14-2022 13:02-0500 Diastolic blood pressure 62 mm[Hg] Dr. Krishna Mcdaniel Work Phone: [facility] 05-14-2022 13:02-0500 Heart rate 76 /min Dr. Krishna Mcdaniel Work Phone: [facility] 05-14-2022 13:02-0500 Respiratory rate 18 /min Dr. Krishna Mcdaniel Work Phone: [facility] 05-14-2022 13:02-0500 Systolic blood pressure 138 mm[Hg] Dr. Krishna Mcdaniel Work Phone: [facility] 05-11-2022 11:28-0500 Body weight 136.[address] Krishna Mcdaniel Work Phone: [facility] 05-11-2022 11:28-0500 Heart rate 78 /min Dr. Krishna Mcdaniel Work Phone: [facility] 05-11-2022 11:28-0500 Inhaled oxygen flow rate 2 L/min Dr. Krishna Mcdaniel Work Phone: [facility] 05-11-2022 11:28-0500 SaO2% (BldA) [Mass fraction] 91 % Dr. Krishna Mcdaniel Work Phone: [facility] 05-11-2022 08:08-0500 Body mass index (BMI) [Ratio] 48.7 kg/m2 Dr. Krishna Mcdaniel Work Phone: [facility] 05-11-2022 08:08-0500 Body temperature 98.1 [degF] Dr. Krishna Mcdaniel Work Phone: [facility] 05-11-2022 08:08-0500 Body weight 149.[address] Krishna Mcdaniel Work Phone: [facility] 05-11-2022 08:08-0500 Diastolic blood pressure 75 mm[Hg] Dr. Krishna Mcdaniel Work Phone: [facility] 05-11-2022 08:08-0500 Heart rate 75 /min Dr. Krishna Mcdaniel Work Phone: [facility] 05-11-2022 08:08-0500 Respiratory rate 18 /min Dr. Krishna Mcdaniel Work Phone: [facility] 05-11-2022 08:08-0500 SaO2% (BldA) [Mass fraction] 91 % Dr. Kirshna Mcdaniel Work Phone: [facility] 05-11-2022 08:08-0500 Systolic blood pressure 139 mm[Hg] Dr. Krishna Mcdaniel Work Phone: [facility] 03-31-2022 11:38-0500 Body mass index (BMI) [Ratio] 49.4 kg/m2 Dr. Krishna Mcdaniel Work Phone: [facility] 03-31-2022 11:38-0500 Body temperature 97.4 [degF] Dr. Krishna Mcdaniel Work Phone: [facility] 03-31-2022 11:38-0500 Body weight 151.[address] Krishna Mcdaniel Work Phone: [facility] 03-31-2022 11:38-0500 Diastolic blood pressure 74 mm[Hg] Dr. Krishna Mcdaniel Work Phone: [facility] 03-31-2022 11:38-0500 Heart rate 80 /min Dr. Krishna Mcdaniel Work Phone: [facility] 03-31-2022 11:38-0500 Respiratory rate 20 /min Dr. Krishna Mcdaniel Work Phone: [facility] 03-31-2022 11:38-0500 SaO2% (BldA) [Mass fraction] 96 % Dr. Krishna Mcdaniel Work Phone: [facility] 03-31-2022 11:38-0500 Systolic blood pressure 153 mm[Hg] Dr. Krishna Mcdaniel Work Phone: [facility] 02-17-2022 09:10-0400 Body height 177 cm Katey Booker DO Work Phone: [facility] 02-17-2022 09:10-0400 Body temperature 98.29 [degF] Katey Booker DO Work Phone: [facility] 02-17-2022 09:10-0400 Body weight 151.73 kg Katey Booker DO Work Phone: [facility] 02-17-2022 09:10-0400 Diastolic blood pressure 66 mm[Hg] Katey Baldwini Work Phone: [facility] 02-17-2022 09:10-0400 Heart rate 69 /min Katey Booker DO Work Phone: [facility] 02-17-2022 09:10-0400 SaO2% (BldA) [Mass fraction] 93 % Katey Booker DO Work Phone: [facility] 02-17-2022 09:10-0400 Systolic blood pressure 152 mm[Hg] Katey Booker DO Work Phone: [facility] 02-01-2022 11:07-0400 Body height 175.[address] Krishna Mcdaniel Work Phone: [facility] Work Phone: 02-01-2022 11:07-0400 Body mass index (BMI) [Ratio] 49.9 kg/m2 Dr. Krishna Mcdaniel Work Phone: [facility] 02-01-2022 11:07-0400 Body temperature 97.6 [degF] Dr. Krishna Mcdaniel Work Phone: [facility] 02-01-2022 11:07-0400 Body weight 153.[address] Krishna Mcdaniel Work Phone: [facility] 02-01-2022 11:07-0400 Diastolic blood pressure 73 mm[Hg] Dr. Krishna Mcdaniel Work Phone: [facility] 02-01-2022 11:07-0400 Heart rate 78 /min Dr. Krishna Mcdaniel Work Phone: [facility] 02-01-2022 11:07-0400 Respiratory rate 20 /min Dr. Krishna Mcdaniel Work Phone: [facility] 02-01-2022 11:07-0400 SaO2% (BldA) [Mass fraction] 90 % Dr. Krishna Mcdaniel Work Phone: [facility] 02-01-2022 11:07-0400 Systolic blood pressure 163 mm[Hg] Dr. Krishna Mcdaniel Work Phone: [facility] 08-07-2021 10:15-0400 Body height 175.[address] Krishna Mcdaniel Work Phone: [facility] Work Phone: 08-07-2021 10:15-0400 Body mass index (BMI) [Ratio] 49.1 kg/m2 Dr. Krishna Mcdaniel Work Phone: [facility] Work Phone: 08-07-2021 10:15-0400 Body temperature 97.4 [degF] Dr. Krishna Mcdaniel Work Phone: [facility] Work Phone: 08-07-2021 10:15-0400 Body weight 150.[address] Krishna Mcdaniel Work Phone: [facility] Work Phone: 08-07-2021 10:15-0400 Diastolic blood pressure 71 mm[Hg] Dr. Krishna Mcdaniel Work Phone: [facility] Work Phone: 08-07-2021 10:15-0400 Heart rate 65 /min Dr. Krishna Mcdaniel Work Phone: [facility] Work Phone: 08-07-2021 10:15-0400 Respiratory rate 16 /min Dr. Krishna Mcdaniel Work Phone: [facility] Work Phone: 08-07-2021 10:15-0400 SaO2% (BldA) [Mass fraction] 93 % Dr. Krishna Mcdaneil Work Phone: [facility] Work Phone: 08-07-2021 10:15-0400 Systolic blood pressure 138 mm[Hg] Dr. Krishna Mcdaniel Work Phone: [facility] Work Phone: 08-04-2021 11:41-0400 Body temperature 98.01 [degF] [employer]y [employer] Work Phone: [facility] 08-04-2021 11:41-0400 Body weight 151.5 kg Katey Baldwini [employer] Work Phone: [facility] 08-04-2021 11:41-0400 Diastolic blood pressure 86 mm[Hg] Katey Baldwini [employer] Work Phone: [facility] 08-04-2021 11:41-0400 Heart rate 74 /min [employer]y [employer] Work Phone: [facility] 08-04-2021 11:41-0400 SaO2% (BldA) [Mass fraction] 95 % [employer]y [employer] Work Phone: [facility] 08-04-2021 11:41-0400 Systolic blood pressure 144 mm[Hg] Katey Baldwini [employer] Work Phone: [facility] 07-08-2021 10:16-0400 Body mass index (BMI) [Ratio] 49.6 kg/m2 Dr. Krishna Mcdaniel Work Phone: [facility] Work Phone: 07-08-2021 10:16-0400 Body temperature 97.5 [degF] Dr. Krishna Mcdaniel Work Phone: [facility] Work Phone: 07-08-2021 10:16-0400 Body weight 152.[address] Krishna Mcdaniel Work Phone: [facility] Work Phone: 07-08-2021 10:16-0400 Diastolic blood pressure 64 mm[Hg] Dr. Krishna Mcdaniel Work Phone: [facility] Work Phone: 07-08-2021 10:16-0400 Heart rate 78 /min Dr. Krishna Mcdaniel Work Phone: [facility] Work Phone: 07-08-2021 10:16-0400 Respiratory rate 18 /min Dr. Krishna Mcdaniel Work Phone: [facility] Work Phone: 07-08-2021 10:16-0400 SaO2% (BldA) [Mass fraction] 94 % Dr. Krishna Mcdaniel Work Phone: [facility] Work Phone: 07-08-2021 10:16-0400 Systolic blood pressure 160 mm[Hg] Dr. Krishna Mcdaniel Work Phone: [facility] Work Phone: 02-21-2017 08:24-0400 BMI (Body Mass Index) 46.51 kg/m2 Lisette Wright LPN [facility] Work Phone: 02-21-2017 08:24-0400 Body Temperature 97.5 [degF] Lisette Wright LPN [facility] Work Phone: 02-21-2017 08:24-0400 BP Diastolic 74 mm[Hg] Lisette Wright LPN [facility] Work Phone: 02-21-2017 08:24-0400 BP Systolic 124 mm[Hg] Lisette Wright LPN [facility] Work Phone: 02-21-2017 08:24-0400 Height 175.26 cm Lisette Wright DIRECTOR PRINT [facility] Work Phone: 02-21-2017 08:24-0400 Pulse (Heart Rate) 76 /min Lisette Wright DIRECTOR PRINT [facility] Work Phone: 02-21-2017 08:24-0400 Respiratory Rate 18 /min Lisette Wright DIRECTOR PRINT [facility] Work Phone: 02-21-2017 08:24-0400 Weight 142.88 kg Lisette Wright DIRECTOR PRINT [facility] Work Phone: 06-17-2016 11:17-0500 Body Temperature 97.7 [degF] Lisette Wright DIRECTOR PRINT [facility] Work Phone: 06-17-2016 11:17-0500 BSA (Body Surface Area) 2.52 m2 Lisette Wright DIRECTOR PRINT [facility] Work Phone: 06-17-2016 11:17-0500 Height 175.26 cm Lisette Wright DIRECTOR PRINT [facility] Work Phone: 06-17-2016 11:17-0500 Weight 145 kg Lisette Wright DIRECTOR PRINT [facility] Work Phone: Encounters Encounter Date Encounter Type Care Provider Facility Start: 11-20-2024 ambulatory Zeus Swanson Facility :[facility] Start: 11-07-2024 End: 11-07-2024 Tessy Trinh EDUCATIONAL PARAPROFESSIONAL-C -[facility] Work Phone: Start: 11-07-2024 End: 11-07-[address] Krishna Mcdaniel DO Work Phone: -[facility] Start: 10-31-2024 End: 10-31-[address] Krishna Mcdaniel DO Work Phone: -[facility] Start: 10-31-2024 End: 10-31-2024 DANGELO ROSA EDUCATIONAL PARAPROFESSIONAL-C -Laboratory [facility] Start: 10-31-2024 End: 10-31-2024 ambulatory DANGELO ROSA Facility:[facility] Start: 10-24-2024 End: 10-24-2024 ambulatory Treatment Rm 12 Y[facility] Work Phone: Hematology/Oncology Comment on above: Multiple myeloma not having achieved remission (HCC) (Primary Dx) Start: 10-24-2024 End: 10-24-2024 ambulatory KATEY Marcio BALDWINCipriano Facility:[facility] Start: 10-22-2024 End: 10-22-[address] Krishna Mcdaniel DO Work Phone: -Laboratory Start: 10-22-2024 End: 10-22-2024 Zeus Swanson PA -Laboratory Work Phone: Start: 10-22-2024 End: 10-22-2024 Patient encounter procedure Zeus Swanson PA -[facility] Work Phone: Start: 10-22-2024 End: 10-22-2024 Zeus Swanson PA -[facility] Work Phone: Start: 10-22-2024 End: 10-22-[address] Krishna Mcdaniel DO Work Phone: -[facility] Start: 10-22-2024 End: 10-22-2024 ambulatory Zeus Swanson Facility:[facility] Start: 10-17-2024 ambulatory LYN Sahu ty:[facility] Start: 10-17-2024 End: 10-17-2024 Subsequent hospital visit by physician Josephine Sutton MD Work Phone: [facility] Endoscopy Comment on above: History of colon can cer [Z85.038] Start: 10-04-2024 End: 10-04-2024 [place] [id number] Work Phone: Pre Anesthesia Start: 10-04-2024 End: 10-04-2024 Anesthesia consultation [place] [id number] Work Phone: Pre Anesthesia Comment on above: Pre-operative examin ation (Primary Dx); Congestive heart failure, unspecified HF chronicity, unspecified heart failure type (HCC); Hyperlipidemia, unspecified hyperlipidemia type; Primary hypertension; Chronic obstructive pulmonary disease, unspecified COPD type (HCC); CONCHA (obstructive sleep apnea); Gastroesophageal reflux disease without esophagitis; Elevated platelet count; Anemia, unspecified type; Leukocytosis, unspecified type; Cancer of sigmoid colon (HCC); Smoldering multiple myeloma; Marijuana user; Hyponatremia; Obesity, Class III, BMI 40-49.9 (morbid obesity) (HCC); Iron malabsorption (HCC); History of gastritis; Paroxysmal A-fib (HCC) Start: 10-04-2024 End: 10-04-2024 Preprocedural examination done [place] [id number] Work Phone: [facility] Start: 10-04-2024 End: 10-04-[address] Krishna Mcdaniel DO Work Phone: [facility] Work Phone: Start: 10-04-2024 End: 10-04-2024 Patient encounter procedure Zeus Swanson PA -[facility] Start: 10-04-2024 End: 10-04-2024 Zeus Swanson PA -[facility] Start: 10-04-2024 End: 10-04-2024 ambulatory Zeus Swanson Facility:[facility] Start: 10-02-2024 End: 10-02-2024 Telephone encounter Rosalba Mix PA-C Work Phone: [place] Provider Adult Start: 10-01-2024 ambulatory Makenna Cirilo Facility:[facility] Start: 10-01-2024 Registered Referred Zeus Andrews A -Cardiovascular Services Work Phone: Start: 10-01-2024 Zeus Swanson PA -Card iovascular Services Work Phone: Start: 09-26-2024 End: 09-26-2024 Telephone encounter Cha Bautista RN Hematology/Oncology Comment on above: Director Talent - O ther (Appointment ) Patient Update (AVS) Start: 09-26-2024 End: 09-26-2024 Patient encounter procedure Susan Agustin APRN.[employer] Work Phone: Hematology/Oncology Start: 09-26-2024 End: 09-26-2024 ambulatory Treatment Rm 13 [facility] Work Phone: Hematology/Oncology Comment on above: Multiple myeloma not having achieved remission (HCC) (Primary Dx) Multiple myeloma not having achieved remission (HCC) (Primary Dx); Iron deficiency anemia due to chronic blood loss Start: 09-21-2024 End: 09-21-2024 Patient encounter procedure Zeus Swanson PA -[facility] Work Phone: Start: 09-21-2024 End: 09-21-2024 Zeuslata Swanson PA -[facility] Work Phone: Start: 09-21-2024 End: 09-21-[address] Krishna Mcdaniel DO Work Phone: [facility] Work Phone: Start: 09-19-2024 End: 09-19-2024 Telephone encounter Katey Booker DO Work Phone: Hematology/Oncology Comment on above: Results Start: 09-19-2024 End: 09-19-2024 ambulatory Treatment Rm 15 [facility] Work Phone: Hematology/Oncology Comment on above: Iron deficiency anem ia due to chronic blood loss (Primary Dx); Iron malabsorption (HCC) Start: 09-18-2024 End: 09-18-[address] Krishna Mcdaniel DO Work Phone: [facility] Work Phone: Start: 09-18-2024 End: 09-18-2024 Patient encounter procedure Zeus Swanson PA -[facility] Start: 09-18-2024 End: 09-18-2024 Zeus Swanson PA -[facility] Start: 09-18-2024 End: 09-18-2024 ambulatory Zeus Swanson Facility:[facility] Start: 09-14-2024 End: 09-14-2024 ambulatory KATEY BOOKER Facility:[facility] Start: 09-12-2024 End: 09-12-2024 ambulatory KATEY BOOKER Facility:[facility] Start: 09-10-2024 End: 10-08-2024 Telephone encounter Katey Marcio Jhony DO Work Phone: Hematology/Oncology Comment on above: Appointment Start: 09-10-2024 End: 09-10-2024 ambulatory Treatment Rm 14 [facility] Work Phone: Hematology/Oncology Comment on above: Iron deficiency anem ia due to chronic blood loss (Primary Dx); Iron malabsorption (HCC) Start: 09-06-2024 End: 09-06-2024 ambulatory Treatment Rm 15 Y[facility] Work Phone: Hematology/Oncology Comment on above: Iron deficiency anem ia due to chronic blood loss (Primary Dx); Iron malabsorption (HCC) Start: 09-04-2024 End: 09-04-[address] Krishna Mcdaniel DO Work Phone: [facility] Work Phone: Start: 09-04-2024 End: 09-04-2024 Patient encounter procedure Tessy Trinh NP-C -Radiology [facility] Work Phone: Start: 09-04-2024 End: 09-04-2024 Tessy Trinh EDUCATIONAL PARAPROFESSIONAL-C -Radiology [facility] Work Phone: Start: 09-04-2024 End: 09-04-2024 Patient encounter procedure Tessy Trinh NP-C -[facility] Work Phone: Start: 09-04-2024 End: 09-04-2024 Tessy Trinh NP-C -[facility] Work Phone: Start: 09-04-2024 End: 09-04-[address] Krishna Mcdaniel DO Work Phone: [facility] Work Phone: Start: 09-04-2024 End: 09-04-2024 ambulatory Tessy Trinh NP Facility:[facility] Start: 08-29-2024 End: 08-29-2024 ambulatory Treatment Rm 11 [facility] Work Phone: Hematology/Oncology Comment on above: Multiple myeloma not having achieved remission (HCC) (Primary Dx) Start: 08-14-2024 End: 08-14-[address] Krishna Kohli DO -[facility] Work Phone: Start: 08-14-2024 End: 08-14-2024 Dr. Krishna Kohli DO -[facility] Work Phone: Start: 08-14-2024 End: 08-14-2024 ambulatory Krishna Mcdaniel [facility] Start: 08-14-2024 End: 08-14-2024 ambulatory Krishna Mcdaniel Facility:[facility] Start: 08-06-2024 End: 08-06-2024 Refill Katey Booker DO Work Phone: Hematology/Oncology Comment on above: Refill Request Director Talent - O estela (Hospital Discharge ) Start: 08-03-2024 Non-patient / [facility] Work [facility] Start: 08-03-2024 Dr. Fernanda Staples DO [facility] Work Phone: Start: 08-02-2024 Non-patient / Non-[facility] Work [facility]: Start: 08-02-2024 Dr. Fernanda Staples DO [facility] Work Phone: Start: 08-01-2024 Non-patient / Non-visit Dr. Mariama Pennington MD -[facility] Work Phone: Start: 08-01-2024 ambulatory Janes Pennington Fac ility:[facility] Start: 08-01-2024 End: 08-03-2024 Evaluation and management of inpatient Dr. Janes Pennington MD -Progressive Care Unit Work Phone: Start: 08-01-2024 End: 08-03-2024 Dr. Fernanda Staples DO -[facility] Care [facility] Work Phone: Start: 08-01-2024 Emergency department patient visit Dr. Krishna Mcdaniel DO Work Phone: -Emergency Department Work Phone: Start: 08-01-2024 End: 08-01-2024 Subsequent hospital visit by physician Xr [facility] Work Phone: Radiology Comment on above: Multiple myeloma not having achieved remission (HCC) [C90.00] Start: 08-01-2024 End: 08-01-2024 ambulatory KATEY BOOKER Facility:[facility] Start: 07-27-2024 End: 07-27-[address] Krishna Mcdaniel DO Work Phone: [facility] Work Phone: Start: 07-27-2024 End: 07-27-2024 Patient encounter procedure Jessenia Yoder PA -Laboratory, [facility] Start: 07-27-2024 End: 07-27-2024 Jessenia Yoder PA -Laboratory, [facility] Start: 07-27-2024 End: 07-27-2024 ambulatory Jessenia KWON Facility:[facility] Start: 07-18-2024 End: 07-18-[address] Krishna Kohli DO -[facility] Work Phone: Start: 07-18-2024 End: 07-18-2024 Dr. Krishna Kohli DO -[facility] Work Phone: Start: 07-18-2024 End: 07-18-2024 ambulatory Krishna Mcdaniel Facility:[facility] Start: 07-16-2024 End: 10-25-2024 Telephone encounter Josephine Sutton General Surgery Comment on above: 10-17-2024 Colon Med marley Start: 07-16-2024 End: 07-16-2024 Patient encounter procedure Josephine Sutton MD Work Phone: General Surgery Comment on above: History of colon can cer (Primary Dx); Chronic obstructive pulmonary disease, unspecified COPD type (HCC); Morbid obesity (HCC) Start: 07-16-2024 End: 07-16-2024 ambulatory JOSEPHINE SUTTON Facility:[facility] Start: 07-06-2024 Non-patient / Non-visit Dr. Kristian magana DO -[facility] Start: 07-06-2024 End: 07-06-[address] Krishna Mcdaniel DO Work Phone: [facility] Work Phone: Start: 07-06-2024 End: 07-06-2024 Patient encounter procedure Tessy Trinh EDUCATIONAL PARAPROFESSIONAL-C -Pulmonary Services/Neurology Work Phone: Start: 07-06-2024 End: 07-06-2024 Tessy Trinh EDUCATIONAL PARAPROFESSIONAL-C -Pulmonary Services/Neurology Work Phone: Start: 07-06-2024 End: 07-06-2024 ambulatory Tessy Trinh NP Facility:[facility] Start: 07-04-2024 End: 07-04-2024 Telephone encounter Katey Booker DO Work Phone: Hematology/Oncology Comment on above: AVS 07/04 Start: 07-04-2024 End: 07-04-2024 ambulatory Treatment 12 [facility] Work Phone: Hematology/Oncology Comment on above: Multiple myeloma not having achieved remission (HCC) (Primary Dx) Start: 07-04-2024 End: 07-04-2024 Office outpatient visit 25 minutes Katey Booker DO Work Phone: Hematology/Oncology Comment on above: Multiple myeloma not having achieved remission (HCC) (Primary Dx); Malignant neoplasm of sigmoid colon (HCC); Iron deficiency anemia due to chronic blood loss Start: 07-03-2024 End: 07-03-[address] Krishna Mcdaniel DO Work Phone: [facility] Work Phone: Start: 07-03-2024 End: 07-03-[address] Katey Booker DO -[facility] Start: 07-03-2024 End: 07-03-2024 Dr. Katey Booker DO -[facility] Start: 07-03-2024 End: 07-03-2024 ambulatory Katey Booker Facility:[facility] Start: 06-25-2024 End: 06-25-[address] Krishna Mcdaniel DO Work Phone: [facility] Work Phone: Start: 06-25-2024 End: 06-25-2024 Patient encounter procedure Tessy Trinh EDUCATIONAL PARAPROFESSIONAL-C -Sleep Lab Work Phone: Start: 06-25-2024 End: 06-25-2024 Tessy Trinh EDUCATIONAL PARAPROFESSIONAL-C -Sleep Lab Work Phone: Start: 06-25-2024 End: 06-25-2024 ambulatory Tessy Trinh NP Facility:[facility] Start: 06-21-2024 End: 06-21-2024 Telephone encounter David Mckinney Work Phone: Hematology/Oncology Start: 06-20-2024 ambulatory Blair Maza [place] Start: 06-20-2024 Non-patient / Non-visit Dr. Blair Maza MD -[facility] Work Phone: Start: 06-20-2024 End: 06-20-2024 Patient encounter procedure Liliana KWON -Pulmonary Services/Neurology Work Phone: Start: 06-20-2024 End: 06-20-2024 Dr. Blair Maza MD -[facility] Work Phone: Start: 06-20-2024 End: 06-20-2024 ambulatory Liliana KWON Facility:[facility] Start: 06-19-2024 End: 06-19-2024 Refill Triciate Vernell Bernal MD Work Phone: Cardiology Comment on above: Refill Request Start: 06-13-2024 End: 06-13-2024 Patient encounter procedure Joaquin KWON -[facility] Work Phone: Start: 06-13-2024 End: 06-13-2024 Joaquin KWON -[facility] Work Phone: Start: 06-13-2024 End: 06-13-2024 ambulatory Joaquin KWON [facility] Start: 06-12-2024 End: 06-12-2024 ambulatory DAVID MCKINNEY Facility:[facility] Start: 06-12-2024 End: 06-12-2024 Subsequent hospital visit by physician [facility] Cat Scan Comment on above: Malignant neoplasm o f sigmoid colon (HCC) [C18.7] Start: 06-07-2024 End: 06-07-2024 Patient encounter procedure Tessy Trinh EDUCATIONAL PARAPROFESSIONAL-C -[facility] Work Phone: Start: 06-07-2024 End: 06-07-2024 Tessy Trinh EDUCATIONAL PARAPROFESSIONAL-C -[facility] Work Phone: Start: 06-07-2024 End: 06-07-2024 ambulatory Tessy Trinh NP [facility] Start: 06-06-2024 End: 06-06-2024 Office outpatient visit 25 minutes Katey Booker DO Work Phone: Hematology/Oncology Comment on above: Multiple myeloma not having achieved remission (HCC) (Primary Dx); Malignant neoplasm of sigmoid colon (HCC); Rib pain on right side Start: 06-06-2024 End: 06-06-2024 ambulatory Treatment Rm 13 Yfn [facility] Work Phone: Hematology/Oncology Comment on above: Multiple myeloma not having achieved remission (HCC) (Primary Dx) Start: 06-01-2024 End: 06-01-2024 Patient encounter procedure Liliana KWON -[facility] Work Phone: Start: 06-01-2024 End: 06-01-2024 Liliana KWON -[facility] Work Phone: Start: 06-01-2024 End: 06-01-2024 ambulatory Liliana KWON [place] Start: 05-28-2024 End: 05-28-[address] Janes Oconnor MD -Radiology, [facility] Work Phone: Start: 05-28-2024 End: 05-28-2024 Dr. Janes Oconnor MD -Radiology, [facility] Work Phone: Start: 05-28-2024 End: 05-28-2024 ambulatory Janes Oconnor Facility:[facility] Start: 05-23-2024 End: 05-23-2024 Telephone encounter Katey Booker DO Work Phone: Hematology/Oncology Comment on above: Follow Up Start: 05-21-2024 Non-patient / Non-visit Dr. Milly Dhillon [facility] Work Phone: Start: 05-21-2024 Dr. Baron menon [facility] Work Phone: Start: 05-20-2024 Non-patient / Non-visit Dr. Jackie Rose MD [facility] Work Phone: Start: 05-20-2024 Dr. Jackie Rose MD [facility] Work Phone: Start: 05-19-2024 Non-patient / Non-visit Dr. Jackie Rose MD [facility] Work Phone: Start: 05-19-2024 Dr. Jackie Rose MD [facility] Work Phone: Start: 05-18-2024 Non-patient / Non-visit Dr. Jackie Rose MD [facility] Work Phone: Start: 05-18-2024 Dr. Jackie Rose MD [facility] Work Phone: Start: 05-18-2024 ambulatory Isaiah Nicholson Fa cility:[facility] Start: 05-18-2024 Non-patient / Non-[facility] Start: 05-18-2024 [facility] Start: 05-17-2024 Non-patient / Non-visit Dr. Miriam Casey MD [facility] Work Phone: Start: 05-17-2024 ambulatory Jose Casey Facilit y:[facility] Start: 05-17-2024 End: 05-21-2024 Evaluation and management of inpatient Dr. Baron Dhillon DO -Progressive Care Unit Work Phone: Start: 05-17-2024 End: 05-21-2024 Dr. Baron Dhillon DO -Progressive Care Unit Work Phone: Start: 05-09-2024 End: 05-09-2024 Orders Only David Mckinney Work Phone: Hematology/Oncology Comment on above: Multiple myeloma not having achieved remission (HCC) (Primary Dx) Malignant neoplasm o f sigmoid colon (HCC) (Primary Dx); Multiple myeloma not having achieved remission (HCC) Start: 05-01-2024 End: 05-01-2024 Patient encounter procedure Jessenia KWON -Laboratory, [facility] Start: 05-01-2024 End: 05-01-2024 Jessenia KWON -Laboratory, [facility] Start: 05-01-2024 End: 05-01-2024 ambulatory Jessenia KWON [facility] [facility] Start: 04-11-2024 End: 04-11-2024 Patient encounter procedure Katey Booker DO Work Phone: Hematology/Oncology Start: 04-11-2024 End: 04-11-2024 ambulatory Katey Booker DO Work Phone: Hematology/Oncology Comment on above: Multiple myeloma not having achieved remission (HCC) (Primary Dx); Cancer of sigmoid colon (HCC) Cancer of sigmoid co johnson (HCC) (Primary Dx); Multiple myeloma not having achieved remission (HCC) Start: 03-21-2024 End: 03-21-2024 Subsequent hospital visit by physician [facility] Work Phone: Radiology Comment on above: Acute cough [R05.1] Start: 03-21-2024 End: 03-21-2024 ambulatory KRISHNA MCDANIEL Facility:[facility] Start: 03-21-2024 End: 03-21-2024 Office outpatient visit 15 minutes Alec Villela APRN.CNP Work Phone: [facility] Comment on above: Acute cough (Primary Dx); Viral illness Start: 03-13-2024 End: 03-13-2024 Office outpatient visit 25 minutes Katey Booker DO Work Phone: Hematology/Oncology Comment on above: Multiple myeloma not having achieved remission (HCC) (Primary Dx); Cancer of sigmoid colon (HCC); Chronic low back pain, unspecified back pain laterality, unspecified whether sciatica present; Acute bronchitis due to Rhinovirus Start: 03-13-2024 End: 03-13-2024 ambulatory Treatment Rm 12 [facility] Work Phone: Hematology/Oncology Comment on above: Multiple myeloma not having achieved remission (HCC) (Primary Dx) Start: 03-12-2024 End: 03-12-2024 ambulatory [facility] Facility:[facility] Start: 03-12-2024 End: 03-12-2024 Patient encounter procedure Isabella Traore APRN.[facility] Work Phone: [facility] Comment on above: Acute cough (Primary Dx); Rhinosinusitis Start: 03-12-2024 End: 03-12-2024 Telephone encounter Cha Bautista RN Hematology/Oncology Comment on above: Director Talent - O ther (Symptoms ) Start: 03-12-2024 End: 03-12-2024 Subsequent hospital visit by physician X[facility] Work Phone: Radiology Comment on above: Acute cough [R05.1] Start: 02-28-2024 End: 02-28-2024 ambulatory [facility] [place] Start: 02-15-2024 End: 02-15-2024 Patient encounter procedure David Mckinney Work Phone: Hematology/Oncology Start: 02-15-2024 End: 02-15-2024 [facility] Work [facility] Comment on above: Multiple myeloma not having achieved remission (HCC) (Primary Dx) Multiple myeloma not having achieved remission (HCC) (Primary Dx); Cancer of sigmoid colon (HCC); Chronic low back pain, unspecified back pain laterality, unspecified whether sciatica present Start: 02-02-2024 End: 02-02-2024 ambulatory Aleks Vega Facility:[facility] Start: 01-30-2024 End: 01-30-2024 Telephone encounter Cha Bautista RN Hematology/Oncology Comment on above: Director Talent - O ther (Medication Question ) Start: 01-23-2024 End: 01-23-2024 Refill Katey Booker DO Work Phone: Hematology/Oncology Comment on above: Refill Request Start: 01-20-2024 End: 01-20-2024 Telephone encounter Katey Booker DO Work Phone: Hematology/Oncology Comment on above: Results Start: 01-18-2024 End: 01-18-2024 Patient encounter procedure Katey Booker DO Work Phone: Hematology/Oncology Start: 01-18-2024 End: 01-18-2024 ambulatory Treatment Rm 13 [facility] Work Phone: Hematology/Oncology Comment on above: Multiple myeloma not having achieved remission (HCC) (Primary Dx) Multiple myeloma not having achieved remission (HCC) (Primary Dx); Cancer of sigmoid colon (HCC) Start: 01-05-2024 End: 01-05-2024 Telephone encounter Cha Bautista RN Hematology/Oncology Comment on above: Director Talent - O ther (Follow-up/questions ) Start: 12-21-2023 End: 12-21-2023 Patient encounter procedure Katey Brannon Phone: Hematology/Oncology Start: 12-21-2023 End: 12-21-2023 ambulatory Katey Booker DO Work Phone: Hematology/Oncology Comment on above: Multiple myeloma not having achieved remission (HCC) (Primary Dx); Cancer of sigmoid colon (HCC) Multiple myeloma not having achieved remission (HCC) (Primary Dx) Start: 12-19-2023 End: 12-19-2023 Telephone encounter Katey Booker DO Work Phone: Hematology/Oncology Comment on above: Results Start: 12-15-2023 End: 12-15-2023 ambulatory KATEY BOOKER Facility:[facility] Start: 12-15-2023 End: 12-15-2023 ambulatory KATEY BOOKER Facility:[facility] Start: 12-15-2023 End: 12-15-2023 Subsequent hospital visit by physician [facility] Cat Scan Comment on above: Multiple myeloma not having achieved remission (HCC) [C90.00] Start: 12-12-2023 End: 12-12-2023 ambulatory Tessy Trinh NP [place] Start: 12-07-2023 End: 12-07-2023 ambulatory Treatment Rm 7 [facility] Work Phone: Hematology/Oncology Comment on above: Multiple myeloma not having achieved remission (HCC) (Primary Dx) Start: 12-06-2023 End: 12-06-2023 ambulatory Tavia Veloz NP [place] Start: 11-30-2023 End: 11-30-2023 ambulatory Aleks Vega Facility:[facility] Start: 11-23-2023 Telephone encounter Katey quinteros DO Work Phone: Hematology/Oncology Comment on above: Electronic Communica tion Start: 11-23-2023 End: 11-23-2023 Patient encounter procedure Katey Booker DO Work Phone: Hematology/Oncology Start: 11-23-2023 End: 11-23-2023 ambulatory Katey Booker DO Work Phone: Hematology/Oncology Comment on above: Multiple myeloma not having achieved remission (HCC) (Primary Dx); Cancer of sigmoid colon (HCC) Cancer of sigmoid co johnson (HCC) (Primary Dx); Multiple myeloma not having achieved remission (HCC) Start: 11-09-2023 End: 11-09-2023 ambulatory Treatment Rm 13 [facility] Work Phone: Hematology/Oncology Comment on above: Multiple myeloma not having achieved remission (HCC) (Primary Dx) Start: 11-08-2023 Orders Only Katey Massey Work Phone: Hematology/Oncology Comment on above: Multiple myeloma not having achieved remission (HCC) (Primary Dx) Start: 10-26-2023 End: 10-26-2023 ambulatory Treatment Rm 7 [facility] Work Phone: Hematology/Oncology Comment on above: Multiple myeloma not having achieved remission (HCC) (Primary Dx) Start: 10-26-2023 End: 10-26-2023 Patient encounter procedure Susan Agustin APRN.[employer] Work Phone: Hematology/Oncology Start: 10-13-2023 Telephone encounter Katey quinteros DO Work Phone: Hematology/Oncology Comment on above: Results Start: 10-12-2023 Telephone encounter Katey quinteros DO Work Phone: Hematology/Oncology Comment on above: Patient Update Burning with urinati on (Primary Dx) Start: 10-12-2023 End: 10-12-2023 ambulatory Treatment Rm 13 [facility] Work Phone: Hematology/Oncology Comment on above: Multiple myeloma not having achieved remission (HCC) (Primary Dx); Burning with urination Start: 10-10-2023 End: 10-10-2023 Subsequent hospital visit by physician [employer] [employer] [facility] (I-Stat/1.5t) Work Phone: Radiology Comment on above: Acute low back pain, unspecified back pain laterality, unspecified whether sciatica present [M54.50] Start: 09-28-2023 Telephone encounter Katey quinteros DO Work Phone: Hematology/Oncology Comment on above: Medication Problem Start: 09-28-2023 End: 09-28-2023 ambulatory Treatment Rm 13 [facility] Work Phone: Hematology/Oncology Comment on above: Multiple myeloma not having achieved remission (HCC) (Primary Dx) Start: 09-28-2023 End: 09-28-2023 Office outpatient visit 25 minutes Katey Booker DO Work Phone: Hematology/Oncology Comment on above: Multiple myeloma not having achieved remission (HCC) (Primary Dx); Acute low back pain, unspecified back pain laterality, unspecified whether sciatica present; Cancer of sigmoid colon (HCC) Start: 09-14-2023 Telephone encounter Katey quinteros DO Work Phone: Hematology/Oncology Comment on above: Patient Update Start: 09-14-2023 End: 09-14-2023 ambulatory Treatment Rm 13 [facility] Work Phone: Hematology/Oncology Comment on above: Multiple myeloma not having achieved remission (HCC) (Primary Dx) Start: 08-31-2023 End: 08-31-2023 [facility] Work Phone: H[facility]ology[facility]Oncology Comment on above: Multiple myeloma not having achieved remission (HCC) (Primary Dx) Start: 08-30-2023 End: 08-30-2023 ambulatory Susan Agustin PEDIATRIC SOCIAL WORKER.[employer] Work Phone: Hematology/Oncology Comment on above: Multiple myeloma not having achieved remission (HCC) (Primary Dx); Cancer of sigmoid colon (HCC) Start: 08-30-2023 End: 08-30-2023 Patient encounter procedure Susan Agustin PEDIATRIC SOCIAL WORKER.[employer] Work Phone: Hematology/Oncology Start: 08-24-2023 End: 08-24-2023 ambulatory Treatment Rm 13 [facility] Work Phone: Hematology/Oncology Comment on above: Multiple myeloma not having achieved remission (HCC) (Primary Dx) Start: 08-17-2023 End: 08-17-2023 ambulatory Treatment Rm 13 [facility] Work Phone: Hematology/Oncology Comment on above: Colon adenocarcinoma (HCC) (Primary Dx); Multiple myeloma not having achieved remission (HCC) Start: 08-10-2023 End: 08-10-2023 ambulatory Treatment Rm 13 [facility] Work Phone: Hematology/Oncology Comment on above: Multiple myeloma not having achieved remission (HCC) (Primary Dx) Start: 08-03-2023 End: 08-03-2023 ambulatory Treatment Rm 13 [facility] Work Phone: Hematology/Oncology Comment on above: Multiple myeloma not having achieved remission (HCC) (Primary Dx) Multiple myeloma not having achieved remission (HCC) (Primary Dx); Colon adenocarcinoma (HCC) Start: 08-03-2023 End: 08-03-2023 Patient encounter procedure Katey Booker DO Work Phone: [facility] Start: 07-27-2023 End: 07-27-2023 Orders Only Katey Booker DO Work Phone: Hematology/Oncology Comment on above: Multiple myeloma not having achieved remission (HCC) (Primary Dx); Urinary frequency; Burning with urination Start: 07-14-2023 End: 07-14-2023 ambulatory Mana Kuhn APRN.[employer] Work Phone: Colorectal Surgery Comment on above: Postoperative examin ation (Primary Dx) Start: 07-14-2023 End: 07-14-2023 Telemedicine consultation with patient Mana Kuhn APRN.[employer] Work Phone: [facility] Start: 07-13-2023 End: 07-13-2023 ambulatory Treatment Rm 10 [facility] Work Phone: Hematology/Oncology Comment on above: Multiple myeloma not having achieved remission (HCC) (Primary Dx) Start: 07-08-2023 End: 07-08-2023 Patient encounter procedure Marcus Day MD Work Phone: General Surgery Comment on above: Colon adenocarcinoma (HCC) (Primary Dx) Start: 07-07-2023 Telephone encounter Cha Landeros matology/Oncology Comment on above: Director Talent - O ther (C1D1 Post Treatment Call (darzalex)) Start: 07-07-2023 End: 07-07-2023 Patient encounter procedure Marcus Day MD Work Phone: General Surgery Comment on above: Colon adenocarcinoma (HCC) (Primary Dx) Start: 07-06-2023 Telephone encounter Katey quinteros DO Work Phone: Hematology/Oncology Comment on above: Appointment Start: 07-06-2023 End: 07-06-2023 ambulatory Treatment Rm 9 [facility] Work Phone: Hematology/Oncology Comment on above: Multiple myeloma not having achieved remission (HCC) (Primary Dx); Open wound of abdominal wall, initial encounter Start: 07-05-2023 Orders Only Katey Massey Work Phone: Hematology/Oncology Comment on above: Multiple myeloma not having achieved remission (HCC) (Primary Dx); Cancer of sigmoid colon (HCC); Iron deficiency anemia due to chronic blood loss Start: 06-30-2023 Telephone encounter Cha Landeros matology/Oncology Comment on above: Director Talent - O ther (Medication instructions ) Start: 06-29-2023 Telephone encounter Marisol CONLEY Hematology/Oncology Comment on above: Social Work Services Start: 06-27-2023 Telephone encounter Cha Bautista RN He matology/Oncology Comment on above: Patient Update Start: 06-22-2023 End: 06-22-2023 ambulatory Esme Conde [facility] Start: 06-22-2023 End: 06-22-2023 Patient encounter procedure Esme Conde [facility] Comment on above: SPP Oral Oncology/he matology - Treatment Referral (Capecitabine 500mg); Insurance Authorization (No PA Required) Start: 06-21-2023 Telephone encounter Cha Bautista RN He matology/Oncology Comment on above: Director Talent - O ther (Oral Anti-Cancer Agents Education (xeloda)) Start: 06-13-2023 End: 06-13-2023 Patient encounter procedure Mana Kuhn APRN.[employer] Work Phone: Colorectal Surgery Comment on above: Postoperative examin ation (Primary Dx) Start: 06-08-2023 End: 06-08-2023 Office outpatient visit 25 minutes Katey Booker DO Work Phone: Hematology/Oncology Comment on above: Cancer of sigmoid co johnson (HCC) (Primary Dx); Multiple myeloma not having achieved remission (HCC); Iron deficiency anemia due to chronic blood loss Start: 06-06-2023 End: 06-06-2023 ambulatory Treatment 13 [facility] Work Phone: Hematology/Oncology Comment on above: Iron deficiency anem ia due to chronic blood loss (Primary Dx); Iron malabsorption Start: 06-06-2023 End: 06-06-[address] Krishna Mcdaniel Work Phone: [facility] Work Phone: Start: 06-03-2023 End: 06-03-2023 ambulatory Treatment 13 [facility] Work Phone: Hematology/Oncology Comment on above: Iron deficiency anem ia due to chronic blood loss (Primary Dx); Iron malabsorption Start: 06-03-2023 Telephone encounter Brigid Davies RN Colorectal Surgery Comment on above: Malignant neoplasm o f sigmoid colon (HCC) (Primary Dx) Start: 06-01-2023 End: 06-01-2023 ambulatory Treatment 13 [facility] Work Phone: Hematology/Oncology Comment on above: Iron deficiency anem ia due to chronic blood loss (Primary Dx); Iron malabsorption Start: 05-30-2023 End: 05-30-2023 ambulatory Treatment 13 [facility] Work Phone: Hematology/Oncology Comment on above: Iron deficiency anem ia due to chronic blood loss (Primary Dx); Iron malabsorption Start: 05-30-2023 Telephone encounter Katey quinteros DO Work Phone: Hematology/Oncology Comment on above: Medication Problem Start: 05-27-2023 End: 05-27-2023 Patient encounter procedure Mana Kuhn APRN.[employer] Work Phone: Colorectal Surgery Comment on above: Postoperative examin ation (Primary Dx) Start: 05-26-2023 End: 05-26-2023 ambulatory Treatment 13 [facility] Work Phone: Hematology/Oncology Comment on above: Iron deficiency anem ia due to chronic blood loss (Primary Dx); Iron malabsorption Refill Request Start: 05-24-2023 End: 05-24-2023 Office outpatient visit 25 minutes Katey Booker DO Work Phone: Hematology/Oncology Comment on above: Multiple myeloma not having achieved remission (HCC) (Primary Dx); Cancer of sigmoid colon (HCC); Open wound of abdominal wall, initial encounter; Iron deficiency anemia due to chronic blood loss Start: 04-01-2023 E-mail encounter jimmy m caregiver Brigid Davies RN [facility] Start: 04-01-2023 Follow-up encounter Brigid Davies RN Colorectal Surgery Comment on above: Follow up Dr. Orta Start: 04-01-2023 Refill Katey Massey Work Phone: Hematology/Oncology Comment on above: Med Change Request Start: 03-25-2023 ambulatory I Andrez Orta MD Work Phone: Colorectal Surgery Comment on above: Malignant neoplasm o f sigmoid colon (HCC) (Primary Dx) Start: 03-24-2023 Telephone encounter Katey quinteros DO Work Phone: Hematology/Oncology Comment on above: Follow Up Start: 03-23-2023 Orders Only I Andrez Orta MD Work Phone: Colorectal Surgery Comment on above: Malignant neoplasm o f colon, unspecified part of colon (HCC) (Primary Dx) Start: 03-21-2023 End: 03-21-[address] Krishna Mcdaniel Work Phone: [facility] Work Phone: Start: 03-21-2023 End: 03-21-[address] [facility] Start: 03-21-2023 End: 03-21-2023 Dr. Krishna [facility]cdaniel [facility]: Start: 03-18-2023 End: 03-18-[address] Krishna Mcdaniel Work Phone: [facility] Work Phone: Start: 03-18-2023 End: 03-18-[address] Krishna [facility]cdaniel [facility]: Start: 03-18-2023 End: 03-18-2023 Dr. Krishna [facility]cdaniel [facility]: Start: 03-15-2023 End: 03-15-2023 ambulatory Treatment Rm 7 [facility] Work Phone: Hematology/Oncology Comment on above: Multiple myeloma not having achieved remission (HCC) (Primary Dx) Start: 03-15-2023 Telephone encounter Katey quinteros DO Work Phone: Hematology/Oncology Comment on above: Results Director Talent - O ther (Follow-up ) Start: 03-14-2023 End: 03-14-[address] MANFRED LO MD Facility:[facility] Start: 03-14-2023 End: 03-14-[address] MANFRED LO MD [facility] Start: 03-09-2023 Telephone encounter Cha Bautista RN He matology/Oncology Comment on above: Director Talent - O ther (C1D1 Post Treatment ) Start: 03-08-2023 End: 03-08-2023 ambulatory Treatment Rm 10 [facility] Work Phone: Hematology/Oncology Comment on above: Multiple myeloma not having achieved remission (HCC) (Primary Dx) Start: 03-08-2023 End: 03-08-[address] Krishna Mcdaniel Work Phone: [facility] Work Phone: Start: 03-08-2023 End: 03-08-[address] Krishna Mcdaniel [facility] Work Phone: Start: 03-08-2023 End: 03-08-2023 Dr. Krishna Mcdaniel [facility] Work Phone: Start: 03-07-2023 Telephone encounter Katey quinteros DO Work Phone: Hematology/Oncology Comment on above: Appointment Start: 03-04-2023 End: 03-04-[address] Krishna Mcdaniel Work Phone: [facility] [employer] Work Phone: Start: 03-04-2023 End: 03-04-2023 Dr. Krishna Mcdaniel Work Phone: [facility] [employer] Work Phone: Start: 03-01-2023 End: 03-01-2023 ambulatory Treatment Rm 10 [facility] Work Phone: Hematology/Oncology Comment on above: Malignant neoplasm o f prostate (HCC) (Primary Dx) Start: 03-01-2023 Telephone encounter Katey quinteros DO Work Phone: Hematology/Oncology Start: 02-28-2023 Telephone encounter Katey quinteros DO Work Phone: Hematology/Oncology Comment on above: Patient Question Director Talent - O ther (Follow-up ) Start: 02-28-2023 End: 02-28-2023 supervisor pipe joints [facility] Work Phone: Hematology/Oncology Comment on above: Multiple myeloma not having achieved remission (HCC) (Primary Dx) Start: 02-25-2023 End: 02-25-2023 Emergency department patient visit Dr. Krishna Mcdaniel [facility] Work Phone: Start: 02-25-2023 End: 02-25-2023 Dr. Krishna Mcdaniel Work Phone: [facility] Work Phone: Start: 02-24-2023 Telephone encounter Katey quinteros DO Work Phone: Hematology/Oncology Comment on above: Results Start: 02-23-2023 Telephone encounter Cha Bautista RN He matology/Oncology Comment on above: Director Talent - O ther (Change in treatment ) Start: 02-23-2023 End: 02-23-[address] Krishna Mcdaniel Work Phone: [facility] Work Phone: Start: 02-23-2023 End: 02-23-2023 Dr. Krishna Mcdaniel Work Phone: [facility] Work Phone: Start: 02-23-2023 End: 02-23-2023 ambulatory Katey Booker DO Work Phone: Hematology/Oncology Comment on above: Multiple myeloma not having achieved remission (HCC) (Primary Dx); Bilateral flank pain; Dysuria; Diarrhea of presumed infectious origin; Iron deficiency anemia due to chronic blood loss Start: 02-23-2023 End: 02-23-2023 Patient encounter procedure Katey Booker DO Work Phone: [facility] Start: 02-21-2023 Refill Katey Massey Work Phone: Hematology/Oncology Comment on above: Refill Request Start: 02-10-2023 End: 02-10-2023 ambulatory Treatment Rm 2 [facility] Work Phone: Hematology/Oncology Comment on above: Multiple myeloma not having achieved remission (HCC) (Primary Dx) Start: 02-04-2023 End: 02-04-2023 ambulatory Treatment Rm 12 Y[facility] Work Phone: Hematology/Oncology Comment on above: Multiple myeloma not having achieved remission (HCC) (Primary Dx) Start: 02-03-2023 Non-patient / Non-visit Dr. Jacinto Work Phone: [facility] Work Phone: Start: 02-03-2023 Dr. Krishna Satnamaria own Work Phone: [facility] Work Phone: Start: 02-02-2023 Non-patient / Non-visit Dr. Jacinto Work Phone: [facility] Work Phone: Start: 02-02-2023 Dr. Krisnha Santamaria own Work Phone: [facility] Work Phone: Start: 02-02-2023 End: 02-03-2023 Evaluation and management of inpatient Dr. Krishna Mcdaniel Work Phone: [facility] Work Phone: Start: 02-02-2023 End: 02-03-2023 Dr. Krishna Mcdaniel Work Phone: [facility] Work Phone: Start: 02-01-2023 End: 02-01-[address] Krishna [facility]cdaniel [facility] [place] Start: 02-01-2023 End: 02-01-2023 Dr. Krishna Mcdaniel [facility] [place] Start: 01-27-2023 End: 01-27-2023 ambulatory Treatment Rm 2 [facility] Work Phone: Hematology/Oncology Comment on above: Multiple myeloma not having achieved remission (HCC) (Primary Dx) Start: 01-26-2023 End: 01-26-2023 ambulatory Katey Booker DO Work Phone: Hematology/Oncology Comment on above: Multiple myeloma not having achieved remission (HCC) (Primary Dx); Leg swelling Start: 01-26-2023 End: 01-26-2023 Patient encounter procedure Katey Booker DO Work Phone: [facility] Start: 01-20-2023 End: 01-20-[address] Krishna Mcdaniel Work Phone: [facility] Work Phone: Start: 01-20-2023 End: 01-20-2023 Dr. Krishna Mcdaniel Work Phone: [facility] Work Phone: Start: 01-18-2023 End: 01-18-[address] Krishna Mcdaniel Work Phone: [facility] Work Phone: Start: 01-18-2023 End: 01-18-2023 Dr. Krishna Mcdaniel Work Phone: [facility] Work Phone: Start: 01-13-2023 End: 01-13-2023 ambulatory Treatment Rm 11 [facility] Work Phone: Hematology/Oncology Comment on above: Multiple myeloma not having achieved remission (HCC) (Primary Dx); Iron deficiency anemia due to chronic blood loss; Iron malabsorption Start: 01-11-2023 End: 01-11-2023 ambulatory Treatment 13 [facility] Work Phone: Hematology/Oncology Comment on above: Iron deficiency anem ia due to chronic blood loss (Primary Dx); Iron malabsorption Start: 01-11-2023 Refill Katey Massey Work Phone: Hematology/Oncology Comment on above: Refill Request Start: 01-06-2023 End: 01-06-2023 ambulatory Treatment 12 [facility] Work Phone: Hematology/Oncology Comment on above: Multiple myeloma not having achieved remission (HCC) (Primary Dx); Iron deficiency anemia due to chronic blood loss; Iron malabsorption Start: 01-04-2023 End: 01-04-2023 Nutrition therapy Kyra Nair RD Work Phone: Nutrition Therapy Comment on above: Nutrition Telephone Start: 01-04-2023 End: 01-04-2023 ambulatory Treatment 13 [facility] Work Phone: Hematology/Oncology Comment on above: Iron deficiency anem ia due to chronic blood loss (Primary Dx); Iron malabsorption Start: 01-03-2023 End: 01-03-[address] Krishna Mcdaniel Work Phone: [facility] Work Phone: Start: 01-03-2023 End: 01-03-[address] Krishna Mcdaniel Work Phone: [facility] [place] Start: 01-03-2023 End: 01-03-2023 Dr. Krishna Mcdaniel Work Phone: [facility] Start: 12-30-2022 End: 12-30-2022 ambulatory Katey Booker DO Work Phone: Hematology/Oncology Comment on above: Multiple myeloma not having achieved remission (HCC) (Primary Dx); Iron deficiency anemia due to chronic blood loss; Iron malabsorption Start: 12-30-2022 End: 12-30-2022 Patient encounter procedure Katey Booker Work Phone: [facility] Start: 12-28-2022 End: 12-28-[address] Work Phone: [facility] Start: 12-28-2022 End: 12-28-2022 Nutrition therapy Kyra Nair RD Work Phone: Nutrition Therapy Comment on above: Nutrition Telephone Start: 12-28-2022 Telephone encounter Kyra soriano RD Work Phone: Nutrition Therapy Comment on above: Patient Question Start: 12-24-2022 End: 12-24-2022 Emergency department patient [facility] Work [facility]: Start: 12-24-2022 End: 12-24-2022 Dr. Krishna Mcd[facility]iel [facility] Work [facility]: Start: 12-22-2022 Telephone encounter Katey quinteros DO Work Phone: Hematology/Oncology Comment on above: Orders Start: 12-22-2022 End: 12-22-2022 ambulatory Katey Booker DO Work Phone: Hematology/Oncology Comment on above: Multiple myeloma not having achieved remission (HCC) (Primary Dx) Start: 12-22-2022 End: 12-22-2022 Patient encounter procedure Katey Booker DO Work Phone: [facility] Start: 12-21-2022 Telephone encounter Cha Bautista RN He matology/Oncology Comment on above: Director Talent - O ther (Hospital Discharge ) Start: 12-20-2022 Non-patient / Non-visit Dr. Jacinto Work Phone: [facility] Work Phone: Start: 12-20-2022 Dr. Krishna magana Work Phone: [facility] Work Phone: Start: 12-19-2022 Non-patient / Non-visit Dr. Jacinto Work Phone: [facility] Work Phone: Start: 12-19-2022 Dr. Krishna Santamaria own Work Phone: [facility] Work Phone: Start: 12-18-2022 Non-patient / Non-visit Dr. Jacinto Work Phone: [facility] Work Phone: Start: 12-18-2022 Dr. Krishna Santamaria own Work Phone: [facility] Work Phone: Start: 12-17-2022 Non-patient / Non-visit Dr. Jacinto Work Phone: [facility] Start: 12-17-2022 Dr. Krishna Santamaria own Work Phone: [facility] Start: 12-17-2022 Non-patient / Non-visit Dr. Jacinto Work Phone: [facility] Work Phone: Start: 12-17-2022 Dr. Krishna Santamaria own Work Phone: [facility] Work Phone: Start: 12-16-2022 End: 12-20-2022 Evaluation and management of inpatient Dr. Krishna Mcdaniel Work Phone: [facility] Work Phone: Start: 12-16-2022 End: 12-20-2022 Dr. Krishna Mcdaniel Work Phone: [facility] Work Phone: Start: 12-16-2022 Telephone encounter Cha Doup RN He matology/Oncology Comment on above: Director Talent - O ther (Symptoms- Rash ) Start: 12-14-2022 Refill Katey Massey Work Phone: Hematology/Oncology Comment on above: Refill Request Start: 12-14-2022 Telephone encounter Katey quinteros DO Work Phone: Hematology/Oncology Start: 12-09-2022 End: 12-09-2022 ambulatory Treatment Rm 12 [facility] Work Phone: Hematology/Oncology Comment on above: Multiple myeloma not having achieved remission (HCC) (Primary Dx) Start: 12-02-2022 End: 12-02-2022 ambulatory Treatment Rm 9 [facility] Work Phone: Hematology/Oncology Comment on above: Multiple myeloma not having achieved remission (HCC) (Primary Dx) Start: 12-01-2022 End: 12-01-[address] Krishna Mcdaniel Work Phone: [facility] Work Phone: Start: 12-01-2022 End: 12-01-[address] Krishna Mcdaniel Work Phone: [facility] Start: 12-01-2022 End: 12-01-2022 Dr. Krishna Mcdaniel Work Phone: [facility] [place] Start: 11-25-2022 Telephone encounter Katey quinteros DO Work Phone: Hematology/Oncology Comment on above: Anemia Start: 11-25-2022 End: 11-25-2022 ambulatory Treatment Rm 13 [facility] Work Phone: Hematology/Oncology Comment on above: Multiple myeloma not having achieved remission (HCC) (Primary Dx) Start: 11-24-2022 End: 11-24-[address] Krishna Mcdaniel Work Phone: [facility] Work Phone: Start: 11-24-2022 End: 11-24-2022 Dr. Krishna Mcdaniel Work Phone: [facility] [place] Work Phone: Start: 11-16-2022 End: 11-16-[address] Work Phone: [facility] Start: 11-16-2022 End: 11-16-2022 Nutrition therapy Kyra Nair RD Work Phone: Nutrition Therapy Comment on above: Nutrition Assessment Start: 11-11-2022 Telephone encounter Katey quinteros DO Work Phone: Hematology/Oncology Comment on above: Symptom Management Start: 11-09-2022 Refill Katey Massey Work Phone: Hematology/Oncology Comment on above: Refill Request Start: 11-04-2022 End: 11-04-2022 ambulatory Treatment Rm 8 [facility] Work Phone: Hematology/Oncology Comment on above: Multiple myeloma not having achieved remission (HCC) (Primary Dx) Start: 11-03-2022 Telephone encounter Cha Bautista RN He matology/Oncology Comment on above: Director Talent - O ther (Oral Follow-up/ED follow-up ) Start: 11-02-2022 End: 11-02-2022 Emergency department patient visit Dr. Krishna Mcdaniel Work Phone: [facility] Work Phone: Start: 11-01-2022 Telephone encounter Cha Bautista RN He matology/Oncology Comment on above: Director Talent - O ther (Symptoms ) Start: 11-01-2022 End: 11-01-2022 Subsequent hospital visit by physician Xr [facility] Work Phone: Radiology Comment on above: Multiple myeloma not having achieved remission (HCC) [C90.00] Start: 10-29-2022 Telephone encounter Cha Landeros matology/Oncology Comment on above: Director Talent - O ther (C1D1 Post Treatment (Revlimid, velcade, decadron, and zometa)) Start: 10-28-2022 End: 10-28-2022 ambulatory Treatment Rm 6 [facility] Work Phone: Hematology/Oncology Comment on above: Multiple myeloma not having achieved remission (HCC) (Primary Dx) Start: 10-28-2022 Telephone encounter Financial Navigator Yfn Work Phone: Financial Services Comment on above: Benefits Investigati on Director Talent - O ther (Questions ) Orders Start: 10-21-2022 End: 10-21-2022 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 Krishna Mcdaniel Work Phone: [facility] Work Phone: Start: 10-12-2022 End: 10-12-[address] Krishna Mcdaniel Work Phone: [facility] [place] Work Phone: Start: 10-12-2022 End: 10-12-[address] Work Phone: [facility] Start: 10-12-2022 End: 10-12-2022 Nutrition therapy Kyra Nair RD Work Phone: Nutrition Therapy Comment on above: Nutrition Assessment Start: 09-29-2022 Telephone encounter Cha Bautista RN He matology/Oncology Comment on above: Director Talent - O ther (Dental Clearance Received ) Start: 09-24-2022 Telephone encounter Cha Landeros matology/Oncology Comment on above: Director Talent - O ther (Introduction ) Start: 09-24-2022 End: 09-24-2022 ambulatory Katey Booker DO Work Phone: Hematology/Oncology Comment on above: Multiple myeloma not having achieved remission (HCC) (Primary Dx) Start: 09-24-2022 End: 09-24-2022 Patient encounter procedure Katey Booker DO Work Phone: [facility] Start: 09-22-2022 End: 09-22-2022 ambulatory Susan Bowersbetina SALAMANCA.ENROUTE CONTROLLER Work Phone: Hematology/Oncology Comment on above: Smoldering multiple myeloma (Primary Dx) Start: 09-22-2022 End: 09-22-2022 Patient encounter procedure Susan Bowersbetina SALAMANCA.ENROUTE CONTROLLER Work Phone: [facility] Start: 09-13-2022 Telephone encounter Katey quinteros DO Work Phone: Hematology/Oncology Comment on above: Medication Problem Start: 09-06-[address] Krishna Mcdaniel Work Phone: [facility] Start: 09-01-2022 End: 09-01-[address] Krishna Mcdaniel Work Phone: [facility] Work Phone: Start: 09-01-2022 End: 09-01-[address] Krishna Mcdaniel Work Phone: [facility] [place] Start: 08-31-2022 End: 08-31-[address] Krishna Mcdaniel Work Phone: [facility] Work Phone: Start: 08-31-2022 End: 08-31-[address] Krishna Mcdaniel Work Phone: [facility] Start: 08-27-2022 Telephone encounter Katey quinteros DO Work Phone: Hematology/Oncology Comment on above: Patient Question Start: 08-08-2022 ambulatory Kamilla Masterson RN NU RSE PORTFOLIO ADMINISTRATOR Comment on above: Information Start: 08-03-2022 End: 08-03-[address] Krishna Mcdaniel Work Phone: [facility] Work Phone: Start: 08-03-2022 End: 08-03-[address] Krishna Mcdaniel [facility] Start: 07-05-2022 End: 07-05-[address] Krishna Mcdaniel Work Phone: [facility] Start: 06-10-2022 Non-patient / Non-visit Dr. Jacinto Work Phone: [facility] Start: 06-10-2022 End: 06-10-[address] Krishna Mcdaniel Work Phone: [facility] Work Phone: Start: 06-10-2022 End: 06-10-[address] Krishna Mdcaniel Work Phone: [facility] Start: 06-01-2022 End: 06-01-[address] Krishna Mcdaniel Work Phone: [facility] [place] Start: 05-28-2022 End: 05-28-[address] Krishna Mcdaniel Work Phone: [facility] Work Phone: Start: 05-28-2022 End: 05-28-[address] Krishna Mcdaniel Work Phone: [facility]/Neurology Start: 05-14-2022 End: 05-14-[address] Krishna Mcdaniel Work Phone: [facility] Start: 05-13-2022 Non-patient / Non-visit Dr. Jacinto Work Phone: [facility] Start: 05-11-2022 Non-patient / Non-visit Dr. Jacinto Work Phone: [facility] Start: 05-11-2022 End: 05-11-[address] Krishna Mcdaniel Work Phone: [facility] Work Phone: Start: 05-11-2022 End: 05-11-[address] Krishna Mcdaniel Work Phone: [facility] Start: 03-31-2022 End: 03-31-[address] Krishna Mcdaniel Work Phone: [facility] Start: 03-11-2022 End: 03-11-[address] Krishna Mcdaniel Work Phone: [facility] Work Phone: Start: 03-11-2022 End: 03-11-[address] Krishna Mcdaniel Work Phone: [facility] [place] Start: 02-17-2022 Telephone encounter Katey quinteros DO Work Phone: Hematology/Oncology Comment on above: Patient Update Start: 02-17-2022 End: 02-17-2022 ambulatory Katey Booker DO Work Phone: Hematology/Oncology Comment on above: Smoldering multiple myeloma (Primary Dx) Start: 02-17-2022 End: 02-17-2022 Patient encounter procedure Katey Booker DO Work Phone: [facility] Start: 02-01-2022 End: 02-01-[address] Krishna Mcdaniel Work Phone: [facility] Start: 01-28-2022 ambulatory KATEY BOOKER Facility:[facility] Start: 01-25-2022 Telephone encounter Katey quinteros DO Work Phone: Hematology/Oncology Comment on above: Orders Start: 01-09-2022 Telephone encounter Katey Arceo ci DO Work Phone: Hematology/Oncology Comment on above: Future Appointment Start: 12-18-2021 End: 12-18-2021 ambulatory [facility] Work Phone: Start: 12-18-2021 End: 12-18-2021 [facility] Start: 10-01-2021 End: 10-01-[address] Krishna Mcdaniel Work Phone: [facility] [place] Start: 08-07-2021 End: 08-07-[address] Krishna Mcdaniel [facility] Start: 08-04-2021 End: 08-04-2021 ambulatory Katey Booker DO Work Phone: Hematology/Oncology Comment on above: Smoldering multiple myeloma (Primary Dx); Multiple myeloma not having achieved remission (HCC) Start: 08-04-2021 End: 08-04-2021 Patient encounter procedure Katey Booker DO Work Phone: [facility] Start: 07-08-2021 End: 07-08-[address] Krishna Mcdaniel [facility] Start: 07-01-2021 End: 07-01-[address] Krishna Mcdaniel Work Phone: [facility] [place] Start: 06-09-2021 Non-patient / Non-visit Dr. Jacinto Work Phone: [facility] Start: 06-09-2021 End: 06-09-[address] Krishna Mcdaniel Work Phone: [facility]/Neurology Procedures Date Procedure Procedure Detail Performing Clinician Start: 10-31-2024 Urine microalbumin/creatinine ratio measurement Dr. Krishna Mcdaniel DO Work Phone: Start: 10-22-2024 Blood count smear mcrscp w/mnl difrntl wbc count Dr. Krishna Mcdaniel DO Work Phone: Start: 10-22-2024 Mean corpuscular hemoglobin concentration determination Dr. Krishna Mcdaniel DO Work Phone: Start: 10-22-2024 Nucleated red blood cell count procedure Dr. Krishna Mcdaniel DO Work Phone: Start: 10-22-2024 Platelet mean volume determination Dr. Jazmyne Mcdaniel DO Work Phone: Start: 10-17-2024 Gluc bld gluc mntr dev cleared fda spec home use Lyn Raygoza DO Work Phone: Start: 10-17-2024 Colonoscopy flx dx w/collj spec when pfrmd Josephine Sutton MD Work Phone: Start: 10-17-2024 Esophagogastroduodenoscopy transoral diagnostic Juliette Hathaway PEDIATRIC SOCIAL WORKER.ENROUTE CONTROLLER Work Phone: Start: 10-17-2024 Gluc bld gluc mntr dev cleared fda spec home use Lyn Raygoza DO Work Phone: Start: 10-17-2024 Colonoscopy Josephine Sutton MD Work Phone: Start: 10-04-2024 Blood count smear mcrscp w/mnl difrntl wbc count Dr. Krishna Mcdaniel DO Work Phone: Start: 10-04-2024 Mean corpuscular hemoglobin concentration determination Dr. Krishna Mcdaniel DO Work Phone: Start: 10-04-2024 Nucleated red blood cell count procedure Dr. Krishna Mcdaniel DO Work Phone: Start: 10-04-2024 Platelet mean volume determination Dr. Jazmyne Mcdaniel DO Work Phone: Start: 09-04-2024 X-ray of chest, PA and lateral views Dr. Krishna Mcdaniel DO Work Phone: Start: 08-03-[address] Josefina Mcdaniel DO Work Phone: Start: 08-03-2024 Mean corpuscular hemoglobin concentration determination Dr. Krishna Mcdaniel DO Work Phone: Start: 08-03-2024 Platelet mean volume determination Dr. Jazmyne Mcdaniel DO Work Phone: Start: 08-03-2024 Serum inorganic phosphate measurement Dr. Krishna Mcdaniel DO Work Phone: Start: 08-02-[address] Krishna Mcdaniel DO Work Phone: Start: 08-02-2024 Sars-cov-2 Dr. Krishna Mcdaniel DO Work Phone: Start: 08-02-[address] Krishna Mcdaniel DO Work Phone: Start: 08-02-2024 CT angiography of chest with contrast Dr. Krishna Mcdaniel DO Work Phone: Start: 08-02-2024 Blood count smear mcrscp w/mnl difrntl wbc count Dr. Krishna Mcdaniel DO Work Phone: Start: 08-02-2024 Nucleated red blood cell count procedure Dr. Krishna Mcdaniel DO Work Phone: Start: 08-01-2024 X-ray of chest, PA and lateral views Dr. Krishna Mcdaniel DO Work Phone: Start: 08-01-2024 Radiologic exam chest 2 views David Rodrigez rayshawnjenaro Work Phone: Start: 07-27-[address] Krishna Mcdaniel DO Work Phone: Start: 07-27-2024 Total cholesterol:HDL ratio measurement Dr. Krishna Mcdaniel DO Work Phone: Start: 07-03-2024 PET study for localization of tumor Dr. Krishna Mcdaniel DO Work Phone: Start: 05-28-[address] Krishna Mcdaniel DO Work Phone: Start: 05-21-[address] Krishna Mcdaniel DO Work Phone: Start: 05-21-2024 Blood count smear mcrscp w/mnl difrntl wbc count Dr. Krishna Mcdaniel DO Work Phone: Start: 05-21-2024 BUN/Creatinine ratio Dr. Krishna Mcdaniel DO Work Phone: Start: 05-21-[address] Josefina Mcdaniel DO Work Phone: Start: 05-21-2024 Mean corpuscular hemoglobin concentration determination Dr. Krishna Mcdaniel DO Work Phone: Start: 05-21-2024 Measurement of renal function Dr. Alexandre Mcdaniel DO Work Phone: Start: 05-21-2024 Nucleated red blood cell count procedure Dr. Krishna Mcdaniel DO Work Phone: Start: 05-21-2024 Platelet mean volume determination Dr. Jazmyne Mcdaniel DO Work Phone: Start: 05-18-2024 Legionella pneumophila antigen assay Dr. Krishna Mcdaniel DO Work Phone: Start: 05-18-2024 Streptococcus pneumoniae antigen assay Dr. Krishna Mcdaniel DO Work Phone: Start: 05-18-2024 Streptococcus pneumoniae antigen assay Dr. Krishna Mcdaniel DO Work Phone: Start: 05-17-2024 CT angiography of chest with contrast Dr. Krishna Mcdaniel DO Work Phone: Start: 05-17-2024 SARS-CoV-2, Influenza & RSV (PCR) Dr. Jacinto DO Work Phone: Start: 05-17-2024 Dr. Krishna Mcdaniel DO Work Phone: Start: 05-17-2024 Plain chest X-ray Dr. Krishna Mcdaniel DO Work Phone: Start: 05-17-2024 Albumin/Globulin ratio Dr. Krishna Mcdaniel DO Work Phone: Start: 05-17-2024 D-dimer assay, quantitative Dr. Krishna Mcdaniel DO Work Phone: Start: 03-21-2024 Radiologic exam chest 2 views Alec cabrera PEDIATRIC SOCIAL WORKER.ENROUTE CONTROLLER Work Phone: Start: 03-12-2024 Radiologic exam chest 2 views Isabella Traore PEDIATRIC SOCIAL WORKER.ENROUTE CONTROLLER Work Phone: Start: 12-07-2023 Comprehensive metabolic panel Katey quinteros DO Work Phone: Start: 10-12-2023 Urnls dip stick/tablet reagent auto microscopy Katey Booker DO Work Phone: Start: 10-10-2023 Mri spinal canal lumbar w/o & w/contr matrl Katey Booker DO Work Phone: Start: 09-14-2023 HEP REMOTE PANEL BL Katey Booker DO Work Phone: Start: 09-14-2023 Hepatitis c antibody Katey Booker DO Work Phone: Start: 09-14-2023 Iaad ia hepatitis b surface antigen Katey Booker DO Work Phone: Start: 07-13-2023 Comprehensive metabolic panel Katey quinteros DO Work Phone: Start: 07-06-2023 Cul bact xcpt urine blood/stool aerobic isol Katey Booker DO Work Phone: Start: 05-24-2023 Cul bact xcpt urine blood/stool aerobic isol Katey Booker DO Work Phone: Start: 03-14-[address] MANFRED LO MD Start: 02-25-[address] Krishna Mcdaniel Work Phone: Start: 02-25-2023 CT of abdomen and pelvis without contrast Dr. Krishna Mcdaniel Work Phone: Start: 02-02-2023 Revision of transurethral prostatectomy DR MANFRED LO MD Start: 01-23-2023 History of transurethral prostatectomy Status post recent transurethral resection of prostate Dr. Krishna Mcdaniel Work Phone: Start: 01-03-[address] Krishna Mcdaniel Work Phone: Start: 12-19-[address] Krishna العلي Work Phone: Start: 12-17-2022 Measurement of occult blood in stool specimen using immunoassay Dr. Krishna Mcdaniel Work Phone: Start: 12-16-2022 CT angiography of chest with contrast Dr. Krishna Mcdaniel Work Phone: Start: 12-16-2022 Legionella pneumophila antigen assay Dr. Krishna Mcdaniel Work Phone: Start: 12-16-[address] Krishna Mcdaniel Work Phone: Start: 12-16-2022 Streptococcus pneumoniae Antigen (M Dr. Krishna Mcdaniel Work Phone: Start: 12-16-2022 Dr. Krishna Mcdaniel Work Phone: Start: 11-02-2022 Plain chest X-ray Dr. Krishna Mcdaniel Work Phone: Start: 11-02-2022 CT angiography of chest with contrast Dr. Krishna Mcdaniel Work Phone: Start: 11-01-2022 Radiologic exam chest 2 views Susan moffett PEDIATRIC SOCIAL WORKER.ENROUTE CONTROLLER Work Phone: Start: 09-22-2022 Diagnostic bone marrow biopsies & aspirations Susan Agustin PEDIATRIC SOCIAL WORKER.ENROUTE CONTROLLER Work Phone: Start: 09-06-[address] of whole body Dr. Krishna Mcdaniel Work Phone: Start: 06-10-2022 Radionuclide imaging of perfusion of myocardium under exercise stress Dr. Krishna Mcdaniel Work Phone: Start: 08-04-2021 Adult depression screening assessment Katey Booker DO Work Phone: Start: 02-23-2016 End: 03-26-2016 DMB Kristian Mcdaniel DO Work Phone: Start: 02-23-2016 End: 03-26-2016 Follow Up Appt 1 month Kristian Mcdaniel DO Work Phone: Start: 02-10-2016 End: 02-11-2016 Referral to respiratory physician Katey Mae MD Start: 01-30-2016 End: 04-01-2016 Pulmonary Function Test - complete Katey Mae MD Start: 01-15-2016 End: 01-15-2016 Ecg routine ecg w/least 12 lds w/i&r Katey Mae MD Start: 01-15-2016 End: 04-01-2016 Echocardiography Katey Mae MD Start: 01-15-2016 End: 01-15-2016 Follow Up Appt 3 months Katey Mae MD Start: 01-15-2016 End: 04-01-2016 Nuclear stress test -Lexiscan Katey salguero MD Calcaneal spur (disorder) DR MANFRED LO MD History of cataract extraction H istory of cataract extraction Dr. Krishna Mcdaniel Work Phone: History of transuret hral prostatectomy Status post recent transurethral resection of prostate Dr. Krishna Mcdaniel Work Phone: Plan of Treatment Date Care Activity Detail Author Start: 10-19-2032 Urine microalbumin profile DTaP,Tdap,Td Vaccine (4 - Td or Tdap) [facility] Start: 03-31-2026 Diabetes Screening Diabetes Screenin [facility] Start: 03-23-2026 Diabetes Screening Diabetes Screenin [facility] Start: 03-15-2026 [facility] Start: 03-08-2026 Diabetes Screening Diabetes Screenin g [facility] Start: 02-23-2026 Diabetes Screening Diabetes Screenin [facility] Start: 02-10-2026 Diabetes Screening Diabetes Screenin g [facility] Start: 02-04-2026 Diabetes Screening Diabetes Screenin g [facility] Start: 01-26-2026 Diabetes Screening Diabetes Screenin g [facility] Start: 01-13-2026 Diabetes Screening Diabetes Screenin g [facility] Start: 01-06-2026 Diabetes Screening Diabetes Screenin g [facility] Start: 12-30-2025 DIABETES SCREEN DIABETES SCREEN [facility] Start: 12-30-2025 Diabetes Screening Diabetes Screenin g [facility] Start: 12-22-2025 DIABETES SCREEN DIABETES SCREEN [facility] Start: 12-09-2025 DIABETES SCREEN DIABETES SCREEN [facility] Start: 12-02-2025 DIABETES SCREEN DIABETES SCREEN [facility] Start: 11-24-2025 DIABETES SCREEN DIABETES SCREEN [facility] Start: 11-16-2025 DIABETES SCREEN DIABETES SCREEN [facility] Start: 11-11-2025 DIABETES SCREEN DIABETES SCREEN [facility] Start: 10-28-2025 DIABETES SCREEN DIABETES SCREEN [facility] Start: 10-17-2025 Screening for malign ant neoplasm of colon [facility] Start: 09-15-2025 DIABETES SCREEN DIABETES SCREEN [facility] Start: 07-16-2025 BP Controlled (<130/80) BP Controlle d (<130/80) [facility] Start: 03-21-2025 BP Controlled (<130/80) BP Controlle d (<130/80) [facility] Start: 01-25-2025 DIABETES SCREEN DIABETES SCREEN [facility] Start: 01-17-2025 BP Controlled (<130/80) BP Controlle d (<130/80) [facility] Start: 01-16-2025 End: 01-16-2025 Patient encounter procedure 01/16/2025 10:30 AM EDT Visit (SP) Office Hematology/Oncology [address] [place] [phone] Katey Booker DO [address] [place] [id number] OV/LABS EARLY/CHEMO TODAY* SAME DAY APPTS - ALT DR BOOKER/DARIUSZ Hematology/Oncology Comment on above: OV/LABS EARLY/CHEMO TODAY* SAME DAY APPTS - ALT DR BOOKER/DARIUSZ Start: 01-16-2025 End: 01-16-2025 ambulatory [facility] Comment on above: (SO)CBC/CMP(S)/Q3MO MYELOMA LABS* QMO SABRINA SC/LAB&OV E AL* Start: 12-24-2024 Influenza vaccination [facility] Start: 12-19-2024 End: 12-19-2024 Patient encounter procedure 12/19/2024 10:30 AM EDT Visit (SP) Office Hematology/Oncology [address] [place] [phone] Susan Agustin APRN.[employer] [address], [place] [id number] OV/LABS EARLY/CHEMO TODAY* SAME DAY APPTS - ALT DR BOOKER/DARIUSZ Hematology/Oncology Comment on above: OV/LABS EARLY/CHEMO TODAY* SAME DAY APPTS - ALT DR VALENZUELA Start: 12-19-2024 End: 12-19-2024 ambulatory [facility] Comment on above: (SO)CBC/CMP(S)/Q3MO MYELOMA LABS* QMO DARZ SC/LAB&OV E AL* Start: 11-22-2024 BP Controlled (<130/80) BP Controlle d (<130/80) [facility] Start: 11-21-2024 End: 11-21-2024 Patient encounter procedure 11/21/2024 10:10 AM EDT Visit (SP) Office Hematology/Oncology [address], [place] [phone] Katey Booker DO [address] [place] [address] OV/LABS EARLY/CHEMO TODAY* SAME DAY APPTS - ALT DR BOOKER/DARIUSZ Hematology/Oncology Comment on above: OV/LABS EARLY/CHEMO TODAY* SAME DAY APPTS - ALT DR VALENZUELA Start: 11-21-2024 End: 11-21-2024 ambulatory [facility] Comment on above: (SO)CBC/CMP(S)/MYELO MA LABS* QMO OV/LABS EARLY/CH EMO TODAY* Alt. Jhony & David BOOKER OUT OF OFFICE QMO DARZ SC/LAB&OV E AL* (SO)CBC/CMP(S)* Start: 10-24-2024 End: 01-23-2025 Chronic hepatitis differentiation between hepatitis B and C virus panel - Serum or Plasma HEP REMOTE PANEL BL Lab Routine Multiple myeloma not having achieved remission (HCC) Expected: 10/24/2024, Expires: 01/23/2025 [facility] Work Phone: Comment on above: Expected: 10/24/2024 , Expires: 01/23/2025 Start: 10-24-2024 End: 10-24-2024 ambulatory [facility] Comment on above: (SO)CBC/CMP(S)/MYELO MA LABS* QMO OV/LABS EARLY/CH EMO TODAY* Alt. Mike BOOKER OUT OF OFFICE QMO DARZ SC/LAB&OV E AL* STRAIGHTBACK QMO KATERINE Z SC/LAB EARLY* (SO)CBC/CMP(S)* Start: 10-17-2024 End: 10-17-2024 Patient encounter procedure [facility] Comment on above: Colon/EGD- Cardiac c learance reciev'd Start: 10-04-2024 End: 10-04-2024 Anesthesia consultation 10/04/2024 2:00 PM EDT PAT Pre Anesthesia [address] [place] [address] 1, [facility] [address] [place] [address] declined VV/ COLONOSCOPY SCREENING [[id number]] Pre Anesthesia Comment on above: declined VV/10/17/ CO LONOSCOPY SCREENING [[id number]] Start: 09-26-2024 End: 09-26-2024 ambulatory 09/26/2024 11:30 AM EDT Visit (SP) Office Hematology/Oncology [address], [place] [phone] Katey Booker DO [address] [place], [place] [phone] 09/10 detailed message left for pt regarding time change -david temp change Hematology/Oncology Comment on above: 09/10 detailed messag e left for pt regarding time change - david temp change Start: 09-26-2024 End: 09-26-2024 ambulatory [facility] Comment on above: (SO)CBC/CMP(S)/MYELO MA LABS* QMO OV/LABS EARLY/CH EMO TODAY* QMO DARZ SC/LAB&OV E AL/MDCR* QMO OV/LABS EARLY/CH EMO TODAY*(Alternate & David for OV's) QMO OV/LABS EARLY/CH EMO TODAY* Alt. Mike LINO DARNick SC/LAB&OV E AL* Start: 09-21-2024 Evaluation of diagno stic study results [facility] Start: 09-19-2024 End: 09-19-2024 ambulatory 09/19/2024 9:30 AM EDT Infusion Center Hematology/Oncology [address] [place] [address] 2ND FLOOR Hematology/Oncology Comment on above: 2ND FLOOR Start: 09-14-2024 End: 09-14-2024 ambulatory 09/14/2024 9:00 AM EDT Infusion Center Hematology/Oncology [address] [place] [address] 2ND FLOOR Hematology/Oncology Comment on above: 2ND FLOOR Start: 09-12-2024 End: 09-12-2024 ambulatory 09/12/2024 9:00 AM EDT Infusion Center Hematology/Oncology [address] [place] [address] 2ND FLOOR Hematology/Oncology Comment on above: 2ND FLOOR Start: 09-10-2024 End: 09-10-2024 ambulatory 09/10/2024 10:00 AM EDT Infusion Center Hematology/Oncology [address] [place] [address] 2ND FLOOR Hematology/Oncology Comment on above: 2ND FLOOR Start: 09-06-2024 End: 09-06-2024 ambulatory 09/06/2024 3:00 PM EDT Infusion Center Hematology/Oncology [address] [place] [address] 2ND FLOOR Hematology/Oncology Comment on above: 2ND FLOOR Start: 08-29-2024 End: 08-29-2024 ambulatory [facility] Comment on above: (SO)CBC/CMP(S)/MYELO MA LABS* QMO OV/LABS EARLY/CH EMO TODAY* QMO DARZ SC/LAB&OV E AL/MDCR* (SO)CBC/CMP(S)* QMO OV/LABS EARLY/CH EMO TODAY*(Alternate for OV's) Start: 08-03-[address] [facility] Start: 08-02-2024 [facility] Start: 08-02-2024 BP Controlled (<130/80) BP Controlle d (<130/80) [facility] Start: 08-01-2024 Following clinical pathway protocol [facility] Start: 08-01-2024 Ambulation without limitation [facility] Start: 08-01-2024 Assessment of risk o f venous thromboembolism [facility] Start: 08-01-2024 Care regimes management [facility] Start: 08-01-[address] [facility] Start: 08-01-2024 Insertion of cathete r into peripheral vein [facility] Start: 08-01-2024 Measuring intake and output [facility] Start: 08-01-2024 Notification of physician [facility] Start: 08-01-2024 Providing care accor ding to standard [facility] Start: 08-01-2024 End: 08-01-2024 [facility] Start: 08-01-[address] [facility] Start: 08-01-2024 Admission procedure [facility] Start: 08-01-2024 Hospital admission, emergency, from emergency room, medical nature [facility] Start: 08-01-2024 End: 08-01-2024 ambulatory 08/01/2024 12:30 PM EDT Infusion Center Hematology/Oncology [address] [place] [id number] QMO DARZ SC/LAB&OV EARLY/MDCR* Hematology/Oncology Comment on above: QMO DARZ SC/LAB&OV E AL/MDCR* Start: 08-01-2024 [facility] Start: 08-01-2024 End: 08-01-2024 ambulatory [facility] Comment on above: (SO)CBC/CMP(S)/MYELO MA LABS* QMO OV/LABS EARLY/CH EMO TODAY* QMO DARZ SC/LAB&OV E AL/MDCR* (SO)CBC/CMP(S)* QMO OV/LABS EARLY/CH EMO TODAY*(Alternate & David for OV's) CXR (per Dr. Booker)/ (SO)CBC/CMP(S)* Start: 08-01-2024 Inhalation therapy procedure [facility] Start: 08-01-2024 Patient referral to dietitian [facility] Start: 07-28-2024 DIABETES SCREEN DIABETES SCREEN [facility] Start: 07-16-2024 End: 07-16-2024 Patient encounter procedure 07/16/2024 1:15 PM EDT Office Visit General Surgery [address] [place], [place] [phone] Josephine Sutton MD [address] [id number] CONSULT General Surgery Comment on above: CONSULT Start: 07-04-2024 End: 10-03-2024 Ferritin [Mass/volume] in Serum or Plasma [facility] Comment on above: Expected: 07/04/2024 , Expires: 10/03/2024 Start: 07-04-2024 End: 10-03-2024 Iron and Iron binding capacity panel - Serum or Plasma [facility] Work Phone: Comment on above: Expected: 07/04/2024 , Expires: 10/03/2024 Start: 07-04-2024 End: 07-04-2024 ambulatory [facility] Comment on above: (SO)CBC/CMP(S)/MYELO MA LABS* QMO OV/LABS EARLY/CT 06/22/CHEMO TODAY* QMO DARZ SC/LAB&OV E AL/MDCR* QMO OV/LABS EARLY/CT 06/12/CHEMO TODAY* Start: 06-27-2024 End: 06-27-2024 ambulatory [facility] Comment on above: (SO)CBC/CMP(S)/MYELO MA LABS* QMO OV/LABS EARLY/CH EMO TODAY* QMO DARZ SC/LAB&OV E AL/MDCR* Start: 06-22-2024 End: 06-22-2024 Patient encounter procedure Cat Scan Comment on above: Malignant neoplasm o f sigmoid colon (HCC) [C18.7] Start: 06-12-2024 End: 06-12-2024 Patient encounter procedure Cat Scan Comment on above: Malignant neoplasm o f sigmoid colon (HCC) [C18.7] CT abd/pel only- no CT chest needed/Malignant neoplasm of sigmoid colon (HCC) [C18.7] Start: 06-09-2024 End: 06-08-2025 CT Abdomen and Pelvis W contrast IV CT ABD/PEL W IVCON Radiology Routine Malignant neoplasm of sigmoid colon (HCC) Expected: 06/09/2024 (Approximate), Expires: 06/08/2025 [facility] Work Phone: Comment on above: Expected: 06/09/2024 (Approximate), Expires: 06/08/2025 Start: 06-09-2024 End: 06-08-2025 CT Chest W contrast IV CT CHEST W IVCON Radiology Routine Malignant neoplasm of sigmoid colon (HCC) Expected: 06/09/2024 (Approximate), Expires: 06/08/2025 [facility] Comment on above: Expected: 06/09/2024 (Approximate), Expires: 06/08/2025 Start: 06-06-2024 End: 06-06-2024 ambulatory [facility] Comment on above: (SO)CBC/CMP(S)/MYELO MA LABS* QMO OV/LABS EARLY/CH EMO TODAY* QMO SABRINA SC/LAB&OV E AL/MDCR* QMO OV/LABS&CT SCAN 05/31/CHEMO TODAY* Start: 05-31-2024 End: 05-31-2024 ambulatory 05/31/2024 2:45 PM EST Results Only [facility] [address] [place] [address] (SO)CBC/CMP(S)/MYELOMA LABS* [facility] Comment on above: (SO)CBC/CMP(S)/MYELO MA LABS* Start: 05-31-2024 End: 05-31-2024 Patient encounter procedure Cat Scan Comment on above: Malignant neoplasm o f sigmoid colon (HCC) [C18.7] Start: 05-24-2024 BP Controlled (<130/80) BP Controlle d (<130/80) [facility] Start: 05-21-[address] [facility] Start: 05-18-2024 [facility] Start: 05-17-2024 End: 05-17-2024 Following clinical pathway protocol [facility] Start: 05-17-2024 Assessment of risk o f venous thromboembolism [facility] Start: 05-17-2024 Care regimes management [facility] Start: 05-17-2024 Continuous positive airway pressure ventilation treatment [facility] Start: 05-17-2024 Elevation of head of bed [facility] Start: 05-17-2024 Insertion of cathete r into peripheral vein [facility] Start: 05-17-2024 Measuring intake and output [facility] Start: 05-17-2024 Notification of physician [facility] Start: 05-17-2024 Oxygen therapy [facility] Start: 05-17-[address] [facility] Start: 05-17-2024 Providing care accor ding to standard [facility] Start: 05-17-2024 Provision of activit y privileges [facility] Start: 05-17-2024 Referral to service [facility] Start: 05-17-2024 End: 05-17-2024 [facility] Start: 05-17-2024 Elevation of affecte d extremity [facility] Start: 05-17-2024 Inhalation therapy procedure [facility] Start: 05-17-2024 Admission procedure [facility] Start: 05-09-2024 End: 08-08-2024 Chronic hepatitis differentiation between hepatitis B and C virus panel - Serum or Plasma [facility] Work Phone: Comment on above: Expected: 05/09/2024 , Expires: 08/08/2024 Start: 05-09-2024 End: 05-09-2024 ambulatory [facility] Comment on above: (SO)CBC/CMP(S)/MYELO MA LABS* QMO OV/LABS EARLY/CH EMO TODAY* QMO DARZ SC/LAB&OV E AL/MDCR* Start: 04-25-2024 Advance Directive Discussion Advance Directive Discussion [facility] Start: 04-11-2024 End: 04-11-2024 ambulatory [facility] Comment on above: (SO)CBC/CMP(S)/MYELO MA LABS* QMO OV/LABS EARLY/CH EMO TODAY* QMO DARZ SC/LAB&OV E AL/MDCR* Start: 03-13-2024 End: 03-13-2024 [facility] Comment on above: (SO)CBC/CMP(S)/MYELO MA LABS* QMO OV/LABS EARLY/CH EMO TODAY* QMO DARZ SC/LAB&OV E AL/MDCR* QMO DARZ SC/ZOMETA/L AB&OV EARLY/MDCR* Start: 02-15-2024 End: 02-15-2024 [facility] Comment on above: (SO)CBC/CMP(S)/MYELO MA LABS* QMO OV/LABS EARLY/CH EMO TODAY* QMO DARZ SC/LAB&OV E AL/MDCR* Start: 01-18-2024 End: 01-18-2024 [facility] Comment on above: (SO)CBC/CMP(S)/MYELO MA LABS* QMO OV/LABS EARLY/CH EMO TODAY* QMO DARZ SC/LAB&OV E AL/MDCR* Start: 12-25-2023 Covid-19 Vaccine ( season) Covid-19 Vaccine ( season) [facility] Start: 12-25-2023 Covid-19 Vaccine ( season) Covid-19 Vaccine ( season) [facility] Start: 12-25-2023 Influenza vaccination Influenza Vacc ine (#1) [facility] Start: 12-21-2023 End: 12-21-2023 [facility] Comment on above: (SO)CBC/CMP(S)/MYELO MA LABS* QMO OV/LABS EARLY/CH EMO TODAY* QMO DARZ SC/LAB&OV E AL/MDCR* Start: 12-15-2023 End: 12-15-2023 Patient encounter procedure Cat Scan Comment on above: Multiple myeloma not having achieved remission (HCC) [C90.00]; Cancer of sigmoid colon (HCC) [C18.7] Start: 12-07-2023 End: 12-07-2023 ambulatory [facility] Comment on above: (SO)CBC* Q2WK DARZ SC/C8-8/MD CR* THEN QMO Start: 11-23-2023 End: 11-23-2023 ambulatory [facility] Comment on above: (SO)CBC/CMP(S)/MYELO MA LABS* QMO OV/LABS EARLY/CH EMO TODAY* Q2WK DARZ SC/C7-8/MD CR* THEN QMO Start: 11-09-2023 End: 11-09-2023 ambulatory [facility] Comment on above: (SO)CBC* Q2WK DARZ SC/C6-8/MD CR* THEN QMO Start: 11-01-2023 Hemoglobin A1c measurement HbA1C [facility] Start: 10-26-2023 End: 10-26-2023 ambulatory 10/26/2023 9:30 AM [facility] Hematology/Oncology [address] [place] [address] Q2WK DARZ SC/C5-8/MDCR* THEN QMO Hematology/Oncology Comment on above: Q2WK DARZ SC/C5-8/MD CR* THEN QMO Start: 10-26-2023 End: 10-26-2023 [facility] Comment on above: (SO)CBC/CMP(S)/MYELO MA LABS* QMO OV/LABS EARLY/CH EMO TODAY* masci Q2WK DARZ SC/C3-8/MD CR* THEN QMO Q2WK DARZ SC/C5-8/MD CR* THEN QMO Start: 10-12-2023 End: 01-11-2024 Urinalysis complete panel - Urine URINALYSIS, WITH MICROSCOPIC Lab Routine Dysuria Expected: 10/12/2023, Expires: 01/11/2024 [facility] Work Phone: Comment on above: Expected: 10/12/2023 , Expires: 01/11/2024 Start: 10-12-2023 End: 10-12-2023 ambulatory [facility] Comment on above: (SO)CBC* Q2WK DARZ SC/C4-8/MD CR* THEN QMO Start: 10-10-2023 End: 10-10-2023 Patient encounter procedure 10/10/2023 9:20 AM EDT Appointment Radiology [address] [place] [address] Acute low back pain, unspecified back pain laterality, unspecified whether sciatica present [M54.50] Radiology Comment on above: Acute low back pain, unspecified back pain laterality, unspecified whether sciatica present [M54.50] Start: 09-28-2023 End: 09-28-2023 ambulatory [facility] Comment on above: (SO)CBC/CMP(S)/MYELO MA LABS* QMO OV/LABS EARLY/CH EMO TODAY* masci Q2WK DARZ SC/C3-8/MD CR* THEN QMO Start: 09-14-2023 End: 09-14-2023 ambulatory [facility] Comment on above: (SO)CBC* Q2WK DARZ SC/C2-8/MD CR* THEN QMO Start: 08-31-2023 End: 08-31-2023 ambulatory [facility] Comment on above: (SO)CBC/CMP(S)/MYELO MA LABS* QMO OV/LABS EARLY/CH EMO TODAY* masci Q2WK DARZ SC/C1-8/MD CR* THEN QMO Start: 08-30-2023 End: 08-30-2023 [facility] Comment on above: (SO)CBC/CMP(S)/MYELO MA LABS* QMO OV/LABS EARLY/CH EMO 08/29* masci Start: 08-24-2023 End: 08-24-2023 ambulatory [facility] Comment on above: (SO)CBC* (SO)CBC/QWK DARZ/C8- 8/MDCR* THEN Q2WK x 8, THEN QMO Start: 07-27-2023 End: 10-26-2023 Urinalysis complete panel - Urine [facility] Work Phone: Comment on above: Expected: 07/27/2023 , Expires: 10/26/2023 Start: 06-21-2023 End: 09-20-2023 DPYD/[id number] GENOTYPING PANEL DPYD/UGT1A1 GENOTYPING PANEL Lab STAT Cancer of sigmoid colon (HCC) Expected: 06/21/2023, Expires: 09/20/2023 [facility] Work Phone: Comment on above: Expected: 06/21/2023 , Expires: 09/20/2023 Start: 04-25-2023 Advance Directive Discussion Advance Directive Discussion [facility] Start: 04-25-2023 Behavioral Health Screening Behavioral Health Screening [facility] Start: 04-25-2023 Depression Assessment Depression Ass essment [facility] Start: 03-25-2023 End: 06-24-2023 Carcinoembryonic Ag [Mass/volume] in Serum or Plasma CEA BLD Lab Routine Malignant neoplasm of sigmoid colon (HCC) Expected: 03/25/2023 (Approximate), Expires: 06/24/2023 [facility] Work Phone: Comment on above: Expected: 03/25/2023 (Approximate), Expires: 06/24/2023 Start: 03-25-2023 End: 06-24-2023 CBC panel - Blood by Automated count CBC Lab Routine Malignant neoplasm of sigmoid colon (HCC) Expected: 03/25/2023 (Approximate), Expires: 06/24/2023 [facility] Work Phone: Comment on above: Expected: 03/25/2023 (Approximate), Expires: 06/24/2023 Start: 03-25-2023 End: 06-24-2023 CBC W Auto Differential panel - Blood CBC + DIFF Lab Routine Malignant neoplasm of sigmoid colon (HCC) Anemia, unspecified type Expected: 03/25/2023, Expires: 06/24/2023 [facility] Work Phone: Comment on above: Expected: 03/25/2023 , Expires: 06/24/2023 Start: 03-25-2023 End: 06-24-2023 Comprehensive metabolic 2000 panel - Serum or Plasma COMP METABOLIC PANEL Lab Routine Malignant neoplasm of sigmoid colon (HCC) Expected: 03/25/2023 (Approximate), Expires: 06/24/2023 [facility] Work Phone: Comment on above: Expected: 03/25/2023 (Approximate), Expires: 06/24/2023 Start: 03-25-2023 End: 06-24-2023 CONFIRM BLOOD TYPE CONFIRM BLOOD TYPE Blood Bank Routine Malignant neoplasm of sigmoid colon (HCC) Expected: 03/25/2023 (Approximate), Expires: 06/24/2023 [facility] Work Phone: Comment on above: Expected: 03/25/2023 (Approximate), Expires: 06/24/2023 Start: 03-25-2023 End: 06-24-2023 Ferritin [Mass/volume] in Serum or Plasma FERRITIN BLD Lab Routine Malignant neoplasm of sigmoid colon (HCC) Anemia, unspecified type Expected: 03/25/2023, Expires: 06/24/2023 [facility] Work Phone: Comment on above: Expected: 03/25/2023 , Expires: 06/24/2023 Start: 03-25-2023 End: 06-24-2023 Iron and Iron binding capacity panel - Serum or Plasma IRON + TIBC Lab Routine Malignant neoplasm of sigmoid colon (HCC) Anemia, unspecified type Expected: 03/25/2023, Expires: 06/24/2023 [facility] Work Phone: Comment on above: Expected: 03/25/2023 , Expires: 06/24/2023 Start: 03-25-2023 End: 06-24-2023 TYPE AND SCREEN,30 DAY TYPE AND SCREEN,30 DAY Blood Bank Routine Malignant neoplasm of sigmoid colon (HCC) Expected: 03/25/2023 (Approximate), Expires: 06/24/2023 [facility] Work Phone: Comment on above: Expected: 03/25/2023 (Approximate), Expires: 06/24/2023 Start: 03-23-2023 End: 06-22-2023 Carcinoembryonic Ag [Mass/volume] in Serum or Plasma CEA BLD Lab Routine Malignant neoplasm of colon, unspecified part of colon (HCC) Expected: 03/23/2023, Expires: 06/22/2023 [facility] Work Phone: Comment on above: Expected: 03/23/2023 , Expires: 06/22/2023 Start: 03-21-2023 Urine protein electrophoresis [facility] Start: 03-01-2023 End: 05-31-2023 Chronic hepatitis differentiation between hepatitis B and C virus panel - Serum or Plasma HEP REMOTE PANEL BL Lab Routine Malignant neoplasm of prostate (HCC) Expected: 03/01/2023, Expires: 05/31/2023 [facility] Work Phone: Comment on above: Expected: 03/01/2023 , Expires: 05/31/2023 Start: 02-25-2023 [facility] Start: 02-25-2023 Bacteria identified in Urine by Culture Urine Culture [facility] Start: 02-25-2023 [facility] Start: 02-23-2023 End: 05-25-2023 Bacteria identified in Urine by Culture [facility] Work Phone: Comment on above: Expected: 02/23/2023 , Expires: 05/25/2023 Start: 02-03-[address] [facility] Start: 02-03-2023 Removal of urinary catheter [facility] Start: 02-02-2023 Oxygen therapy [facility] Start: 02-02-2023 Care regimes management [facility] Start: 02-02-2023 Notification of physician [facility] Start: 02-02-2023 [facility] Start: 02-02-2023 Following clinical pathway protocol [facility] Start: 02-02-2023 Application of intermittent pneumatic compression device [facility] Start: 02-02-2023 Anesthesia transuret hral resection of prostate [facility] Start: 02-02-2023 Trurl electrosurg re scj prostate bleed complete [facility] Start: 02-02-2023 Deep breathing and coughing exercises [facility] Start: 02-02-[address] [facility] Start: 02-02-2023 Irrigation of urinar y bladder [facility] Start: 02-02-2023 Measuring intake and output [facility] Start: 02-02-[address] [facility] Start: 02-02-2023 Taking patient vital signs [facility] Start: 02-02-2023 Vital signs measurements [facility] Start: 02-02-2023 [facility] Start: 02-02-2023 Consultation [facility] Start: 02-02-2023 Admission procedure [facility] Start: 12-24-2022 Covid-19 Vaccine () Covid-19 Vaccine () [facility] Start: 12-24-2022 Influenza vaccination [facility] Start: 12-21-2022 End: 02-20-2023 Bacteria identified in Urine by Culture URINE CULTURE Microbiology Routine Dysuria Expected: 12/21/2022, Expires: 02/20/2023 [facility] Work Phone: Comment on above: Expected: 12/21/2022 , Expires: 02/20/2023 Start: 12-21-2022 End: 02-20-2023 Urinalysis complete panel - Urine URINALYSIS, WITH MICROSCOPIC Lab Routine Dysuria Expected: 12/21/2022, Expires: 02/20/2023 [facility] Work Phone: Comment on above: Expected: 12/21/2022 , Expires: 02/20/2023 Start: 12-20-[address] [facility] Start: 12-18-2022 End: 12-19-2022 [facility] Start: 12-18-2022 Catheterization of vein [facility] Start: 12-18-2022 Care regimes management [facility] Start: 12-18-2022 Notification of physician [facility] Start: 12-17-2022 End: 12-18-2022 [facility] Start: 12-17-2022 Referral to gastroenterology service [facility] Start: 12-16-2022 Following clinical pathway protocol [facility] Start: 12-16-2022 Application of elast ic bandage [facility] Start: 12-16-2022 Assessment of risk o f venous thromboembolism [facility] Start: 12-16-2022 Elevation of affecte d extremity [facility] Start: 12-16-2022 Inhalation therapy procedure [facility] Start: 12-16-2022 Insertion of cathete r into peripheral vein [facility] Start: 12-16-2022 Measuring intake and output [facility] Start: 12-16-2022 Notification of physician [facility] Start: 12-16-2022 Oxygen therapy [facility] Start: 12-16-[address] [facility] Start: 12-16-2022 Providing care accor ding to standard [facility] Start: 12-16-2022 Provision of activit y privileges [facility] Start: 12-16-2022 Referral to occupati onal therapist [facility] Start: 12-16-2022 Referral to service [facility] Start: 12-16-2022 [facility] Start: 12-16-2022 Continuous positive airway pressure ventilation treatment [facility] Start: 12-16-2022 Admission procedure [facility] Start: 12-16-2022 Taking nasal swab [facility] Start: 12-16-2022 [facility] Start: 12-16-2022 Respiratory Panel (PCR) Respiratory Panel (PCR) [facility] Start: 12-16-2022 Patient referral to dietitian [facility] Start: 12-14-2022 Shingrix Vaccine (2 of 2) Barber grix Vaccine (2 of 2) [facility] Start: 11-02-2022 [facility] Start: 09-24-2022 End: 11-24-2022 Chronic hepatitis differentiation between hepatitis B and C virus panel - Serum or Plasma [facility] Work Phone: Comment on above: Expected: 09/24/2022 , Expires: 11/24/2022 Start: 09-06-[address] [facility] whole body [facility] Start: 08-04-2022 Adult depression screening assessment DEPRESSION SCREENING [facility] Start: 04-25-2022 ADVANCE DIRECTIVE DISCUSSION ADVANCE DIRECTIVE DISCUSSION [facility] Start: 04-25-2022 DEPRESSION ASSESSMENT DEPRESSION ASS ESSMENT [facility] Start: 01-25-2022 End: 03-27-2022 [id number] [Mass/volume] in Serum or Plasma [facility] Work Phone: Comment on above: Expected: 01/25/2022 , Expires: 03/27/2022 Start: 01-25-2022 End: 03-27-2022 IMMUNOGLOBULINS MARCIAL [facility] Work Phone: Comment on above: Expected: 01/25/2022 , Expires: 03/27/2022 Start: 01-25-2022 End: 03-27-2022 KAPPA/RAMIREZ,FREE,SER [facility] Work Phone: Comment on above: Expected: 01/25/2022 , Expires: 03/27/2022 Start: 01-25-2022 End: 03-27-2022 MONOCLONAL PROTEIN, SERUM (BLOOD) [facility] Work Phone: Comment on above: Expected: 01/25/2022 , Expires: 03/27/2022 Start: 01-25-2022 End: 03-27-2022 PROTEIN ELECTROPHORESIS SERUM W/INTERP [facility] Work Phone: Comment on above: Expected: 01/25/2022 , Expires: 03/27/2022 Start: 12-24-2021 Influenza vaccination [facility] Start: 07-19-2021 COVID-19 VACCINE (4 - Booster for Pfizer series) COVID-19 VACCINE (4 - Booster for Pfizer series) [facility] Start: 07-13-2021 COVID-19 VACCINE (4 - Booster for Pfizer series) COVID-19 VACCINE (4 - Booster for Pfizer series) [facility] Start: 06-15-2021 COVID-19 VACCINE (4 - Booster for Pfizer series) COVID-19 VACCINE (4 - Booster for Pfizer series) [facility] Start: 06-15-2021 COVID-19 VACCINE (4 - Pfizer risk series) COVID-19 VACCINE (4 - Pfizer risk series) [facility] Start: 04-25-2021 ADVANCE DIRECTIVE DISCUSSION ADVANCE DIRECTIVE DISCUSSION [facility] Start: 04-25-2021 DEPRESSION ASSESSMENT DEPRESSION ASS ESSMENT [facility] Start: 08-24-2017 End: 08-24-2017 Appointment Appointment [facility] Work Phone: Start: 2017 PNEUMOVAX AGE 65 AND OVER WITH 5YR LOOKBACK (#1) PNEUMOVAX AGE 65 AND OVER WITH 5YR LOOKBACK (#1) [facility] Start: 02-23-2017 Medicare Annual Well ness Visit Medicare Annual Wellness Visit [facility] Start: 02-21-2017 End: 02-21-2017 Appointment Appointment [facility] Work Phone: Start: 02-21-2017 End: 02-21-2017 DMB DMB [facility] Work Phone: Start: 02-21-2017 End: 02-21-2017 Follow Up Appt 6 months Follow Up Appt 6 months [facility] Work Phone: Start: 02-21-2017 End: 02-21-2017 Pulmonary Function Test - complete Pulmonary Function Test - complete [facility] Work Phone: Start: 06-17-2016 End: 06-17-2016 DMB DMB [facility] Work Phone: Start: 06-17-2016 End: 06-17-2016 Follow Up Appt 6 months Follow Up Appt 6 months [facility] Work Phone: Start: 03-25-2016 End: 03-25-2016 DMB DMB [facility] Work Phone: Start: 03-25-2016 End: 03-25-2016 Follow Up Appt 3 months Follow Up Appt 3 months [facility] Work Phone: Start: 02-23-2016 End: 03-26-2016 DMB DMB [facility] Work Phone: Start: 02-23-2016 End: 03-26-2016 Follow Up Appt 1 month Follow Up Appt 1 month [facility] Work Phone: Start: 02-10-2016 End: 02-10-2016 Pulmonary Referral Pulmonary Referral Demetri Cisse, [facility], [address], [place], [address] [facility] Phone: Start: 01-30-2016 End: 02-02-2016 Pulmonary Function Test - complete Pulmonary Function Test - complete [facility] Phone: Start: 01-15-2016 End: 01-15-2016 Ecg routine ecg w/least 12 lds w/i&r EKG (In office) [facility] Phone: Start: 01-15-2016 End: 01-15-2016 Echocardiography Echocardiogram (complete) [facility] Phone: Start: 01-15-2016 End: 01-15-2016 Follow Up Appt 3 months Follow Up Appt 3 months [facility] Phone: Start: 01-15-2016 End: 01-15-2016 MMM MMM [facility] Phone: Start: 01-15-2016 End: 01-15-2016 Nuclear stress test -Lexiscan Nuclear stress test -Lexiscan [facility] Phone: Start: 03-20-2015 Pneumococcal Vaccine : 50+ (2 of 2 - PCV) Pneumococcal Vaccine: 50+ (2 of 2 - PCV) [facility] Start: 03-20-2015 Pneumococcal Vaccine : 65+ (2 - PCV) Pneumococcal Vaccine: 65+ (2 - PCV) [facility] Start: 03-20-2015 Pneumococcal Vaccine : 65+ (2 of 2 - PCV) Pneumococcal Vaccine: 65+ (2 of 2 - PCV) [facility] Start: 2012 RSV Vaccine (1 - 1-d ose 60+ series) RSV Vaccine (1 - 1-dose 60+ series) [facility] Start: 2012 RSV Vaccine (1 - Ris k 60-74 years 1-dose series) RSV Vaccine (1 - Risk 60-74 years 1-dose series) [facility] Start: 2002 SHINGRIX VACCINE (1 of 2) BARBER GRIX VACCINE (1 of 2) [facility] Start: 1997 COLOGUARD (FIT-DNA) COLOGUARD (FIT-D NA) [facility] Start: 1997 Colonoscopy COLONOSCOPY [facility] Start: 1997 COLORECTAL CANCER SCREENING COLORECTAL CANCER SCREENING [facility] Start: [address] COLONOGRAPHY [facility] Start: 1997 FECAL OCCULT BLOOD FECAL OCCULT BLOO D [facility] Start: 1997 Screening for malign ant neoplasm of colon [facility] Start: 1997 SIGMOIDOSCOPY SIGMOIDOSCOPY [facility] Start: 1987 Lipid 1996 panel - S sepideh or Plasma Lipid Screening [facility] Start: 1987 LIPID SCREEN LIPID SCREEN [facility] Start: 1982 Zoledronic acid therapy Alpha- 1 Antitrypsin Deficiency Screening [facility] Start: 1971 SHINGRIX VACCINE (1 of 2) BARBER GRIX VACCINE (1 of 2) [facility] Start: 1971 Urine microalbumin profile [facility] Start: 1970 Annual PCP Team Medical Physiologist jeb Disease Visit Annual PCP Team Chronic Disease Visit [facility] Start: 1970 Anxiety Screening Anxiety Screening [facility] Start: 1970 BP Controlled (<130/80) BP Controlle d (<130/80) [facility] Start: 1970 Depression Screening Depression Scre ening [facility] Start: 1970 Hepatitis B surface antibody level LDL Cholesterol [facility] Start: 1970 HEPATITIS C SCREENING HEPATITIS C SC REENING [facility] Start: 1970 zzBP Controlled (<13 0/80) (Retired) zzBP Controlled (<130/80) (Retired) [facility] Start: 1962 Diabetic foot examination Diabetic F oot Exam [facility] Start: 1962 Glaucoma screening Dilated Retinal E xam [facility] Start: 1962 Hepatitis B screening Urine Al bumin:Creatinine Ratio [facility] Start: 1958 Pneumococcal Vaccine : 65+ (1 - PCV) Pneumococcal Vaccine: 65+ (1 - PCV) [facility] Start: 1958 PNEUMOCOCCAL: 65+ (1 - PCV) PNEUMOCOCCAL: 65+ (1 - PCV) [facility] Start: 1952 ABDOMINAL AORTIC ANE URYSM SCREENING ABDOMINAL AORTIC ANEURYSM SCREENING [facility] Start: 1952 Abdominal aortic ane urysm screening Abdominal Aortic Aneurysm Screening [facility] 24 Hour ECG [facility] Albumin/Globulin [Ma ss Ratio] in Serum or Plasma by Electrophoresis [facility] Bacteria identified in Urine by Culture URINE CULTURE Microbiology Routine Multiple myeloma not having achieved remission (HCC) Urinary frequency Burning with urination Ordered: 07/27/2023 [facility] Work Phone: Comment on above: Ordered: 07/27/2023 Bacteria identified in Wound by Culture ABSCESS AND WOUND CULTURE WITH GRAM STAIN Microbiology Routine Open wound of abdominal wall, initial encounter 05/24/2023 11:52 AM EST [facility] Work Phone: Bacteria identified in Wound by Culture ABSCESS AND WOUND CULTURE WITH GRAM STAIN Microbiology Routine Open wound of abdominal wall, initial encounter 07/06/2023 9:20 AM EDT [facility] Work Phone: Basic metabolic 2008 panel with ionized calcium - Serum or Plasma [facility] Basic metabolic 2008 panel with ionized calcium - Serum or Plasma [facility] End: 07-04-2024 [id number] [Mass/volume] in Serum or Plasma B2 MICROGLOBULIN B Lab Routine Multiple myeloma not having achieved remission (HCC) Cancer of sigmoid colon (HCC) Iron deficiency anemia due to chronic blood loss Once per month for 12 Occurrences starting 07/05/2023 until 07/04/2024 [facility] Work Phone: Comment on above: Once per month for 1 2 Occurrences starting 07/05/2023 until 07/04/2024 BONE MARROW ANALYSIS BONE MARROW ANALYSIS Lab 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 1:30 PM EDT [facility] Work Phone: BONE MARROW CHROMOSO ME ANAL BONE MARROW CHROMOSOME ANAL Lab 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 DIFFICILE PCR Lab Routine Diarrhea of presumed infectious origin Ordered: 02/23/2023 [facility] Work Phone: Comment on above: Ordered: 02/23/2023 End: 04-21-2024 Ct abdomen & pelvis w/contrast material CT ABD/PEL W IVCON Radiology Routine Malignant neoplasm of colon, unspecified part of colon (HCC) 1 Occurrences starting 03/23/2023 until 04/21/2024 [facility] Work Phone: Comment on above: 1 Occurrences starti ng 03/23/2023 until 04/21/2024 End: 12-23-2024 CT Abdomen and Pelvis W contrast IV CT ABD/PEL W IVCON Radiology Routine Multiple myeloma not having achieved remission (HCC) Cancer of sigmoid colon (HCC) 1 Occurrences starting 11/23/2023 until 12/23/2024 [facility] Comment on above: 1 Occurrences starti ng 11/23/2023 until 12/23/2024 CT Abdomen and Pelvi s W contrast IV CT ABD/PEL W IVCON Radiology Routine Multiple myeloma not having achieved remission (HCC) Cancer of sigmoid colon (HCC) 12/15/2023 11:29 AM EDT [facility] CT Abdomen and Pelvi s W contrast IV CT ABD/PEL W IVCON Radiology Routine Malignant neoplasm of sigmoid colon (HCC) 06/12/2024 3:47 PM EST [facility] Work Phone: End: 12-22-2024 CT Chest W contrast IV CT CHEST W IVCON Radiology Routine Multiple myeloma not having achieved remission (HCC) Cancer of sigmoid colon (HCC) 1 Occurrences starting 11/23/2023 until 12/22/2024 [facility] Work Phone: Comment on above: 1 Occurrences starti ng 11/23/2023 until 12/22/2024 CT Chest W contrast IV CT CHEST W IVCON Radiology Routine Multiple myeloma not having achieved remission (HCC) Cancer of sigmoid colon (HCC) 12/15/2023 11:29 AM EDT [facility] Work Phone: End: 04-21-2024 CT CHEST W IVCON CT CHEST W IVCON Radiology Routine Malignant neoplasm of colon, unspecified part of colon (HCC) 1 Occurrences starting 03/23/2023 until 04/21/2024 [facility] Work Phone: Comment on above: 1 Occurrences starti ng 03/23/2023 until 04/21/2024 End: 09-03-2022 CT WHOLE BODY SKULL TO KNEE WO IVCON CT WHOLE BODY SKULL TO KNEE WO IVCON Radiology Routine Multiple myeloma not having achieved remission (HCC) 1 Occurrences starting 08/04/2021 until 09/03/2022 [facility] Work Phone: Comment on above: 1 Occurrences starti ng 08/04/2021 until 09/03/2022 DNA EXTRACTION BONE MARROW (BUFFY COAT) DNA EXTRACTION BONE MARROW (BUFFY COAT) Lab 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 1:30 PM EDT [facility] Work Phone: End: 03-25-2024 ECG COMPLETE ECG COMPLETE ECG Routine Malignant neoplasm of sigmoid colon (HCC) 1 Occurrences starting 03/25/2023 until 03/25/2024 [facility] Work Phone: Comment on above: 1 Occurrences starti ng 03/25/2023 until 03/25/2024 Electrophoresis: albumin [facility] Electrophoresis: [id number] [facility] Electrophoresis: [id number] [facility] Electrophoresis: marcial ma globulin [facility] FISH FOR PLASMA CELL MYELOMA FISH FOR PLASMA CELL MYELOMA Lab 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 1:30 PM EDT [facility] Work Phone: FLOW CYTOMETRY BONE MARROW HOLD (BMHOLD) FLOW CYTOMETRY BONE MARROW HOLD (BMHOLD) Lab 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 1:30 PM EDT [facility] Work Phone: Fluid sample globuli n level [facility] Gliadin peptide IgA Ab [Units/volume] in Serum [facility] Gliadin peptide IgG Ab [Units/volume] in Serum [facility] Globulin measurement [facility] End: 07-04-2024 IMMUNOGLOBULINS MARCIAL IMMUNOGLOBULINS MARCIAL Lab Routine Multiple myeloma not having achieved remission (HCC) Cancer of sigmoid colon (HCC) Iron deficiency anemia due to chronic blood loss Once per month for 12 Occurrences starting 07/05/2023 until 07/04/2024 [facility] Work Phone: Comment on above: Once per month for 1 2 Occurrences starting 07/05/2023 until 07/04/2024 End: 07-04-2024 KAPPA/RAMIREZ,FREE,SER KAPPA/RAMIREZ,FREE,SER Lab Routine Multiple myeloma not having achieved remission (HCC) Cancer of sigmoid colon (HCC) Iron deficiency anemia due to chronic blood loss Once per month for 12 Occurrences starting 07/05/2023 until 07/04/2024 [facility] Work Phone: Comment on above: Once per month for 1 2 Occurrences starting 07/05/2023 until 07/04/2024 End: 07-04-2024 Lactate dehydrogenase [Enzymatic activity/volume] in Serum or Plasma LD LACTATE DEHYDRO Lab Routine Multiple myeloma not having achieved remission (HCC) Cancer of sigmoid colon (HCC) Iron deficiency anemia due to chronic blood loss Once per month for 12 Occurrences starting 07/05/2023 until 07/04/2024 [facility] Work Phone: Comment on above: Once per month for 1 2 Occurrences starting 07/05/2023 until 07/04/2024 Lactic acid measurement [facility] Magnesium measurement [facility] Measurement of immunoglobulin A in serum specimen [facility] Measurement of monoc lonal protein concentration [facility] MONOCLONAL PROT 24 U R W/INTERP MONOCLONAL PROT 24 UR W/INTERP Lab Routine Multiple myeloma not having achieved remission (HCC) Ordered: 01/25/2022 [facility] Work Phone: Comment on above: Ordered: 01/25/2022 End: 07-04-2024 MONOCLONAL PROT UR W/INTERP MONOCLONAL PROT UR W/INTERP Lab Routine Multiple myeloma not having achieved remission (HCC) Cancer of sigmoid colon (HCC) Iron deficiency anemia due to chronic blood loss Once per month for 12 Occurrences starting 07/05/2023 until 07/04/2024 [facility] Work Phone: Comment on above: Once per month for 1 2 Occurrences starting 07/05/2023 until 07/04/2024 End: 07-04-2024 MONOCLONAL PROTEIN, SERUM (BLOOD) MONOCLONAL PROTEIN, SERUM (BLOOD) Lab Routine Multiple myeloma not having achieved remission (HCC) Cancer of sigmoid colon (HCC) Iron deficiency anemia due to chronic blood loss Once per month for 12 Occurrences starting 07/05/2023 until 07/04/2024 [facility] Work Phone: Comment on above: Once per month for 1 2 Occurrences starting 07/05/2023 until 07/04/2024 End: 10-27-2024 MR Lumbar spine WO and W contrast IV MRI LUMBAR SPINE WO/W IVCON Radiology Routine Acute low back pain, unspecified back pain laterality, unspecified whether sciatica present Multiple myeloma not having achieved remission (HCC) 1 Occurrences starting 09/28/2023 until 10/27/2024 [facility] Work Phone: Comment on above: 1 Occurrences starti ng 09/28/2023 until 10/27/2024 Natriuretic peptide. B prohormone N-Terminal [Mass/volume] in Serum or Plasma [facility] Patient Education [facility] Work Phone: Patient referral [facility] Work Phone: End: 03-19-[address] attenuation whole body NM PET/CT WHOLE BODY INITIAL Radiology Routine Smoldering multiple myeloma 1 Occurrences starting 02/17/2022 until 03/19/2023 [facility] Work Phone: Comment on above: 1 Occurrences starti ng 02/17/2022 until 03/19/2023 End: 07-21-2025 PET+CT Guidance for localization of tumor of Skull base to mid-thigh-- W [id number] IV NM PET/CT SKULL-THIGH SUBSEQUENT Radiology Routine Malignant neoplasm of sigmoid colon (HCC) Multiple myeloma not having achieved remission (HCC) Rib pain 1 Occurrences starting 06/21/2024 until 07/21/2025 [facility] Work Phone: Comment on above: 1 Occurrences starti ng 06/21/2024 until 07/21/2025 PROT ELEC UR 24HR W/ M SPIKE (P) PROT ELEC UR 24HR W/M SPIKE (P) Lab Routine Multiple myeloma not having achieved remission (HCC) Ordered: 01/25/2022 [facility] Work Phone: Comment on above: Ordered: 01/25/2022 PROT ELEC UR 24HR W/ M SPIKE AND INTERP PROT ELEC UR 24HR W/M SPIKE AND INTERP Lab Routine Multiple myeloma not having achieved remission (HCC) Ordered: 01/25/2022 [facility] Work Phone: Comment on above: Ordered: 01/25/2022 Protein [Mass/time] in 24 hour Urine PROTEIN 24 HR URINE Lab Routine Multiple myeloma not having achieved remission (HCC) Ordered: 01/25/2022 [facility] Work Phone: Comment on above: Ordered: 01/25/2022 Protein [Mass/volume ] in Urine [facility] End: 07-04-2024 PROTEIN ELECT RND UR W/INTERP PROTEIN ELECT RND UR W/INTERP Lab Routine Multiple myeloma not having achieved remission (HCC) Cancer of sigmoid colon (HCC) Iron deficiency anemia due to chronic blood loss Once per month for 12 Occurrences starting 07/05/2023 until 07/04/2024 [facility] Work Phone: Comment on above: Once per month for 1 2 Occurrences starting 07/05/2023 until 07/04/2024 Protein electrophore sis panel - Serum or Plasma [facility] End: 07-04-2024 PROTEIN ELECTROPHORESIS SERUM W/INTERP PROTEIN ELECTROPHORESIS SERUM W/INTERP Lab Routine Multiple myeloma not having achieved remission (HCC) Cancer of sigmoid colon (HCC) Iron deficiency anemia due to chronic blood loss Once per month for 12 Occurrences starting 07/05/2023 until 07/04/2024 [facility] Work Phone: Comment on above: Once per month for 1 2 Occurrences starting 07/05/2023 until 07/04/2024 Protein measurement, urine [facility] Radionuclide imaging of perfusion of myocardium under exercise stress [facility] REFER FOR ADMIT INTERVIEW REFER FOR ADMIT INTERVIEW Procedures Routine Malignant neoplasm of sigmoid colon (HCC) Ordered: 03/25/2023 [facility] Work Phone: Comment on above: Ordered: 03/25/2023 Respiratory pathogen s DNA and RNA panel - Respiratory specimen by ARYAN with probe detection [facility] End: 07-16-2025 Screening colonoscopy COLONOSCOPY SCREENING Endoscopy Routine History of colon cancer 1 Occurrences starting 07/16/2024 until 07/16/2025 [facility] Work Phone: Comment on above: 1 Occurrences starti ng 07/16/2024 until 07/16/2025 Serum protein electrophoresis [facility] Thyroid stimulating hormone measurement [facility] Tissue Pathology bio psy report [facility] Work Phone: Comment on above: Release Upon Orderin g for 1 Occurrences starting 10/17/2024, 1 completed Tissue transglutamin ase IgA Ab [Units/volume] in Serum [facility] Tissue transglutamin ase IgG Ab [Units/volume] in Serum [facility] Total globulins measurement [facility] Urine albumin measurement [facility] XR Chest PA and Lateral [facility] Immunizations Immunization Date Immunization Notes Care Provider Alania gomez 01-27-2023 influenza (HD-IIV4) vaccine, age 65+ yr, high dose, quadrivalent, PF (FLUZONE HIGH-DOSE) Treatment [facility]str Work Phone: [facility] 01-27-2023 influenza virus vacc ine, unspecified formulation Treatment [facility]str Work Phone: [facility] 10-19-2022 tetanus toxoid, redu anali diphtheria toxoid, and acellular pertussis vaccine, adsorbed Treatment [facility] Work Phone: [facility] 10-19-2022 zoster vaccine recombinant Treatment [facility]str Work Phone: [facility] 04-20-2021 Covid (Pfizer) Dr. Krishna العلي Work Phone: [facility] 10-09-2020 Covid (Pfizer) Dr. Krishna العلي Work Phone: [facility] 09-18-2020 Covid (Pfizer) Dr. Krishna العلي Work Phone: [facility] 03-20-2014 pneumococcal polysaccharide vaccine, 23 valent Treatment [facility]str Work Phone: [facility] 01-23-2014 influenza, high dose seasonal, preservative-free Treatment [facility]str Work Phone: [facility] 01-23-2014 influenza virus vacc ine, unspecified formulation Treatment [facility]str Work Phone: [facility] 08-29-2012 zoster vaccine, live Dr. Adilene Mcdaniel Work Phone: [facility] 11-24-2007 diphtheria, tetanus toxoids and acellular pertussis vaccine, unspecified formulation Treatment [facility]str Work Phone: [facility] 11-24-2007 tetanus toxoid, redu anali diphtheria toxoid, and acellular pertussis vaccine, adsorbed Dr. Krishna Mcdaniel Work Phone: [facility] Payers Date Payer Category Payer Self-pay [id number] 2021 Private Health Insurance MMO MED ICARE SUPPLEMENT [id number] 2017 Medicare MEDICARE MEDICAR E A AND B [id number] 2017-Present [phone] [address] [address] [place] [address] Medicare [id number] 2017 Medicare [id number] 2017 Unknown MMO MMO MEDICARE SUPPLEMENT [id number] 2017-Present [phone] [address] [place] [address] Indemnity [id number] 2017 Unknown [id number] 2017 Medicare [id number] 2016 Unknown [id number] 1952 Unknown [id number] Unknown [id number]. 462 Unknown [id number]. 462 Unknown [id number]. 462 Unknown [id number]. 462 Unknown [id number]. 462 Unknown [id number]. 462 Unknown [id number]. 462 Unknown [id number] [id number]. 462 Unknown [id number] 2.840.1.634630.3.579.2. 462 Unknown [id number] 2.840.1.359675.3.579.2. 462 Unknown [id number] [id number]. 462 Unknown [id number] [id number]. 462 Unknown [id number] 2.840.1.372706.3.579.2. 462 Unknown [id number] 2.840.1.295760.3.579.2. 462 Unknown [id number] 2.840.1.910031.3.579.2. 462 Unknown [id number] 2.840.1.387553.3.579.2. 462 Unknown [id number] 2.840.1.838704.3.579.2. 462 Unknown [id number] 2.840.1.799380.3.579.2. 462 Unknown [id number] 2.840.1.213398.3.579.2. 462 Unknown [id number] 2.16.840.1.355373.3.579.2. 462 Unknown [id number] 2.16.840.1.689883.3.579.2. 462 Unknown [id number] 2.16.840.1.411764.3.579.2. 462 Unknown [id number] 2.16.840.1.401888.3.579.2. 462 Unknown [id number] 2.16.840.1.690338.3.579.2. 462 Unknown [id number] 2.16.840.1.995886.3.579.2. 462 Unknown [id number] 2.16.840.1.588629.3.579.2. 462 Unknown [id number] 2.16.840.1.649507.3.579.2. 462 Unknown [id number] 2.16.840.1.641369.3.579.2. 462 Unknown [id number] 2.16.840.1.557296.3.579.2. 462 Unknown [id number] 2.16.840.1.402390.3.579.2. 462 Unknown [id number] 2.16.840.1.571736.3.579.2. 462 Unknown [id number] 2.16.840.1.707728.3.579.2. 462 Unknown [id number] 2.16.840.1.507512.3.579.2. 462 Unknown [id number] 2.16.840.1.501296.3.579.2. 462 Unknown [id number] 2.16.840.1.269441.3.579.2. 462 Unknown [id number] 2.16.840.1.175536.3.579.2. 462 Unknown [id number] 2.16.840.1.715708.3.579.2. 462 Unknown [id number] 2.16.840.1.399712.3.579.2. 462 Unknown [id number] 2.16.840.1.247537.3.579.2. 462 Unknown [id number] 2.16.840.1.416429.3.579.2. 462 Unknown [id number] 2.16.840.1.014449.3.579.2. 462 Unknown [id number] 2.16.840.1.190642.3.579.2. 462 Unknown [id number] 2.16.840.1.374107.3.579.2. 462 Unknown [id number] 2.16840.1.731351.3.579.2. 462 Social History Date Type Detail Facility Start: 05-22-2015 End: 08-01-2024 Tobacco smoking status NHIS Ex-smoker [facility] Start: 05-22-1968 End: 05-22-2000 History of tobacco use Current smoker [facility] Start: 05-22-1968 End: 05-22-2000 History of tobacco use Cigarette Smoker [facility] Start: 05-22-2015 End: 09-22-2022 Cigarettes smoked current (pack per day) - Reported 1 [facility] Start: 05-22-2015 End: 03-12-2024 Tobacco use and exposure Smokeless tobacco non-user [facility] Start: 08-04-2021 End: 07-16-2024 Alcohol intake Current drinker of alcohol (finding) [facility] Start: 1950 Sex Assigned At Male C [facility] Start: 07-25-2021 End: 08-04-2021 Exposure to SARS-CoV-2 (event) Not sure [facility] Start: 08-07-2021 End: 03-04-2023 Tobacco smoking status NCIS Unknown if ever smoked [facility] Start: 09-22-2022 End: 09-24-2022 Tobacco use panel [facility] Adult Depression Screening Assessment 0 [facility] Start: 11-27-2018 Gender identity Identifies as male gender (finding) [facility] Start: 11-27-2018 Sexual orientation Choose not to dis close [facility] Start: 11-24-2022 End: 08-03-2023 Alcohol intake Ex-drinker (finding) [facility] Sex Assigned At Sex [facility] (I/We) worried [place] (my/our) food would run out before (I/we) got money to buy more. Never true [facility] Work Phone: In the past 12 month s, was there a time when you were not able to pay the mortgage or rent on time? No [facility] Work Phone: Start: 09-28-2023 Alcohol Comment occ [facility] Start: 07-06-2024 End: 08-03-2024 Sex Male (finding) [facility] Goals Date Patient Goal Desired Activity /State Functional Status Date Assessment Result Facility 08-03-2024 Functional status [facility] Work Phone: 05-21-2024 Functional status [facility] Work Phone: 05-21-2024 Functional status Well [facility] Work Phone: 05-12-2023 Are you deaf, or do you have serious difficulty hearing No 05/12/2023 11:32 AM Vivian Anne, [facility] 05-12-2023 Are you blind, or do you have serious difficulty seeing, even when wearing glasses No 05/12/2023 11:32 AM Vivian Anne, [facility] 05-12-2023 Do you have serious difficulty walking or climbing stairs No 05/12/2023 11:32 AM Vivian Anne, [facility] 05-12-2023 Do you have difficul ty dressing or bathing No 05/12/2023 11:32 AM Vivian Anne, [facility] 05-12-2023 Because of a physica l, mental, or emotional condition, do you have difficulty doing errands alone such as visiting a physician's office or shopping No 05/12/2023 11:32 AM Vivian Anne, [facility] No [facility] 03-14-2023 [facility] 03-14-2023 Functional Status Maintained [place] Mirza james [facility] 02-03-2023 Functional status Bed[facility] Work Phone: 12-20-2022 Functional status Up ad ermelinda [facility] Work Phone: 12-20-2022 Functional status Well [facility] Work Phone: Mental Status Date Assessment Result Facility 08-03-2024 Cognitive function Voice/Name [facility] Work Phone: 05-21-2024 Cognitive function Voice/Name [facility] Work Phone: 05-12-2023 Because of a physica l, mental, or emotional condition, do you have serious difficulty concentrating, remembering, or making decisions No 05/12/2023 11:32 AM Vivian Anne RN [facility] 03-14-2023 Mental Status Oriented x 4 [facility] 03-14-2023 Mental Status [facility] 02-03-2023 Cognitive function Voice/Name [facility] Work Phone: 12-20-2022 Cognitive function Voice/Name [facility] Work Phone: Clinical Notes 08-04-2021 to 10-17-2024 Josephine Sutton MD - 10/17/2024 10:45 AM Josephine Farah MD - 10/17/2024 10:45 AM Josephine Farah MD - 10/17/2024 10:45 AM Josephine Farah MD - 10/17/2024 10:45 AM EDT Note Date & Type Note Facility 10-17-2024 Attending History and physical note UPDATED HISTORY AND PHYSICAL EXAMINATION SERVICE DATE: 10/17/2024 SERVICE TIME: 10:11 Participation of a fellow, resident, medical student, or advanced practice provider student in performing the sensitive examination was discussed with the patient or authorized traffic workforce representative. The patient or authorized traffic workforce representative has agreed to proceed with the sensitive examination. PHYSICAL EXAM MUST BE COMPLETED ON ADMISSION The History and Physical (completed in the past 30 days) has been reviewed and the patient has been examined. The contents accurately reflect the patient's condition with the following additions or revisions since the H&P was completed. Examination indicates no changes. This H&P can be found in the Electronic Medical Record . SIGNATURE: Josephine Sutton MD PATIENT NAME: Cyn James JR DATE: October 17, 2024 TIME: 10:11 AM Source Note - Josephine Sutton MD - 10/17/2024 10:45 AM EDT HISTORY AND PHYSICAL Cyn James JR 1950 REFERRING PHYSICIAN: Katey Booker DO CHIEF COMPLAINT: Consult (colonoscopy with history of colon cancer) HPI: The patient is a 74 year old male referred for endoscopy. Cyn notes history of colon cancer. 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 He had presented to [facility] and diagnosed with pneumonia and discharged on home supplemental oxygen. He denies blood in his stools. He denies chronic abdominal pain. He denies chest pain; denies history of OK. Found to have anemia. 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 Leukocytosis 05/03/2023 Marijuana user 05/03/2023 Mixed hyperlipidemia Morbid obesity (HCC) 05/03/2023 Multiple myeloma not having achieved remission ([facility]) 09/24/2022 On home O2 05/03/2023 CONCHA (obstructive sleep apnea) 05/03/2023 Peripheral sensory neuropathy Psoriasis 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 tiZANidine (ZANAFLEX) 4 mg tablet Take 4 mg by mouth every 8 hours as needed. apixaban (ELIQUIS) 5 mg tab(s) Take 5 mg by mouth two times a day. insulin glargine,hum.rec.anlog (BASAGLAR KWIKPEN U-100 INSULIN SUBCUTANEOUS) Inject subcutaneously. 60 units with breakfast 60 units with dinner 42 units at bedtime HUMALOG KWIKPEN INSULIN 100 unit/mL 28 units with breakfast, 34 units with lunch, 46 units with dinner. calcium carbonate/vitamin D3 (CALCIUM + D ORAL) Take 1 tablet by mouth once daily. potassium chloride ER (KLOR-CON) 20 mEq tablet Take 1 tablet by mouth once daily. kxlnuhgynzk-xbdgqguwr-urfrsabk (TRELEGY ELLIPTA) 200-62.5-25 mcg inhalation powder Inhale 1 Puff as instructed once daily. dexAMETHasone (DECADRON) 4 mg tablet Take 5 tablets with breakfast on day of each daratumuamb treatment. ondansetron (ZOFRAN) 8 mg tablet Take 1 tablet by mouth every 8 hours as needed for nausea/vomiting. dilTIAZem CD (CARDIZEM CD, CARTIA XT) 240 mg 24 hr capsule Take 1 capsule by mouth once daily. empagliflozin (JARDIANCE) 10 mg tablet Take 10 mg by mouth once daily. acetaminophen (TYLENOL EXTRA STRENGTH) 500 mg tablet Take 1,500 mg by mouth every 8 hours as needed. torsemide (DEMADEX) 10 mg tablet Take 10 mg by mouth once daily as needed. losartan (COZAAR) 50 mg tablet Take 50 mg by mouth once daily. pantoprazole DR (PROTONIX) 40 mg tablet Take 40 mg by mouth once daily. cholecalciferol (VITAMIN D-3) 50 mcg (2,000 unit) tablet Take 2,000 Units by mouth once daily. OMEGA-3 FATTY ACIDS ORAL Take 1 tablet by mouth once daily. magnesium oxide/magnesium (MAGNESIUM OXIDE-MG AA CHELATE ORAL) Take 250 mg by mouth once daily. albuterol HFA (PROVENTIL HFA, VENTOLIN HFA) 90 mcg/actuation inhaler Inhale 1 Puff as instructed as needed. metFORMIN (GLUCOPHAGE) 1,000 mg tablet Take 1,000 mg by mouth twice daily with meals. atorvastatin (LIPITOR) 20 mg tablet Take 20 mg by mouth once daily. furosemide (LASIX) 40 mg tablet Take 40 mg by mouth once daily. (Patient not taking: Reported on 07/04/2024) FIASP FLEXTOUCH U-100 INSULIN 100 unit/mL (3 mL) pen 22 units with breakfast, 36 units with lunch, 54 units with dinner. TRESIBA U-100 INSULIN 100 unit/mL injection 60 units with breakfast, 60 units with dinner, 54 units at bedtime. (Patient not taking: Reported on 06/06/2024) iv contrast (will be provided with radiology test) CT Chest W -Inject, intravenously, once for 1 dose.No IV access, insert saline lock prior to the beginning of sedation, infusion, injection of imaging exam. Discontinue saline lock post exam. If Pt. has a central line or IVAD, may access for administration according to line specific nursing protocol. Once exam is complete flush line and de-access according to line specific nursing protocol in the CT contrast administration guidelines link. iv contrast (will be provided with radiology test) CT ABD/PEL -Inject, intravenously, once for 1 dose.No IV access, insert saline lock prior to the beginning of sedation, infusion, injection of imaging exam. Discontinue saline lock post exam. If Pt. has a central line or IVAD, may access for administration according to line specific nursing protocol. Once exam is complete flush line and de-access according to line specific nursing protocol in the CT contrast administration guidelines link. enteric contrast (will be provided with radiology test) For CT ABD/PEL W IVCON Routine order Administer, As Directed One Time Only, via Oral, Rectal, both Oral and Rectal, Enteric Tube, Stoma or Indwelling Catheter, Enteric Contrast as designated per enteric contrast guidelines INV SEMAGLUTIDE, OZEMPIC,, 2 MG/1.5 ML, PEN (IRB 20-853) Inject 0.5 mg subcutaneously one time a week. For Investigation Drug Use Only. PI: Dr. Aleks Finn (Patient not taking: Reported on 07/04/2024) insulin aspart U-100 (NOVOLOG U-100 INSULIN ASPART) 100 unit/mL soln Take 26 units with breakfast, 42 units at lunch, 46 units at dinner, zero at bedtime insulin detemir U-100 (LEVEMIR) 100 unit/mL injection 60 breakfast, 60 lunch, and 42 bedtime. No current facility-administered medications for this visit. ALLERGIES: Penicillins PERSONAL HISTORY: SOCIAL HISTORY Social History Tobacco Use Smoking status: Former Current packs/day: 0.00 Average packs/day: 1 pack/day for 32.0 years (32.0 ttl pk-yrs) Types: Cigarettes Start date: 05/22/1968 Quit date: 05/22/2000 Years since quittin.1 Smokeless tobacco: Never Vaping Use Vaping status: Never Used Substance Use Topics Alcohol use: Yes Comment: occ Drug use: Yes Types: Marijuana Comment: gummies- marijuana FAMILY HISTORY FAMILY HISTORY Problem Relation Age of Onset Diabetes Father 86 d/t liver failure Breast Cancer Mother 65 Living Cancer Sister ? Lymphoma Diabetes Maternal Grandmother Diabetes Paternal Grandmother Anesthesia Problems No Family History REVIEW OF SYSTEMS: General - denies fevers HEENT - denies trauma/infections Resp - denies coughing up blood, denies breathing difficulties Cardiac - denies chest pain GI - see HPI - denies blood in urine Endocrine - has diabetes Heme - on Eliquis Psych - denies hallucinations PHYSICAL EXAMINATION: General: The patient is 74 year old male, well nourished, well hydrated in no acute distress. The patient is oriented to time, place, and person. VITALS: Blood pressure 126/58, pulse 82, weight (!) 139.3 kg (307 lb), SpO2 93%. Body mass index is 45.6 kg/m . Head: Normal cephalic, atraumatic Eyes: pupils are equally round, sclera are clear/anicteric Neck is supple with no tracheal deviation Cardiac: normal heart sounds, regular Respiratory: normal breath sounds, normal respiratory excursion and pattern. Abdominal exam: soft obese and benign Extremities: no clubbing, cyanosis or edema. Neuro: non focal Psych: normal mood The sensitive examination was discussed with the Patient or Patient's Authorized Seaman. As applicable, any other physician, advance practice provider, medical student, or other health professional student that will be observing or involved in the sensitive examination for educational or training purposes was discussed with the Patient or Authorized Seaman. The Patient or Authorized Seaman has agreed to proceed with the sensitive examination. (Sensitive examination includes inspection and/or palpation of the breasts, pelvis, prostate and anorectal regions) IMPRESSION: history of sigmoid colon cancer, anemia PLAN: I have discussed the above with the patient. I have offered colonoscopy and EGD, possible biopsies I have explained the procedure to the patient. I have counseled the patient as to the risks of the procedure, including but not limited to: infection, bleeding, injury to any intrabdominal organs such as liver/spleen, perforation of the GI tract, inability to complete the procedure, complications of anesthesia, etc. - the patient understands. The patient wishes to proceed. I have answered all questions to the patient s satisfaction and the patient has no further questions. Diagnoses: (Z85.038) History of colon cancer (primary encounter diagnosis) (J44.9) Chronic obstructive pulmonary disease, unspecified COPD type (HCC) (E66.01) Morbid obesity (HCC) [facility] 10-17-2024 History and physical note HISTORY AND PHYSICAL Cyn James JR 1950 REFERRING PHYSICIAN: Katey Booker DO CHIEF COMPLAINT: Consult (colonoscopy with history of colon cancer) HPI: The patient is a 74 year old male referred for endoscopy. Cyn notes history of colon cancer. 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 He had presented to [facility] and diagnosed with pneumonia and discharged on home supplemental oxygen. He denies blood in his stools. He denies chronic abdominal pain. He denies chest pain; denies history of OK. Found to have anemia. 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 Leukocytosis 05/03/2023 Marijuana user 05/03/2023 Mixed hyperlipidemia Morbid obesity (HCC) 05/03/2023 Multiple myeloma not having achieved remission (HCC) 09/24/2022 On home O2 05/03/2023 CONCHA (obstructive sleep apnea) 05/03/2023 Peripheral sensory neuropathy Psoriasis 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 tiZANidine (ZANAFLEX) 4 mg tablet Take 4 mg by mouth every 8 hours as needed. apixaban (ELIQUIS) 5 mg tab(s) Take 5 mg by mouth two times a day. insulin glargine,hum.rec.anlog (BASAGLAR KWIKPEN U-100 INSULIN SUBCUTANEOUS) Inject subcutaneously. 60 units with breakfast 60 units with dinner 42 units at bedtime HUMALOG KWIKPEN INSULIN 100 unit/mL 28 units with breakfast, 34 units with lunch, 46 units with dinner. calcium carbonate/vitamin D3 (CALCIUM + D ORAL) Take 1 tablet by mouth once daily. potassium chloride ER (KLOR-CON) 20 mEq tablet Take 1 tablet by mouth once daily. gvtfdsfbnud-uktffjuwq-crxwpgln (TRELEGY ELLIPTA) 200-62.5-25 mcg inhalation powder Inhale 1 Puff as instructed once daily. dexAMETHasone (DECADRON) 4 mg tablet Take 5 tablets with breakfast on day of each daratumuamb treatment. ondansetron (ZOFRAN) 8 mg tablet Take 1 tablet by mouth every 8 hours as needed for nausea/vomiting. dilTIAZem CD (CARDIZEM CD, CARTIA XT) 240 mg 24 hr capsule Take 1 capsule by mouth once daily. empagliflozin (JARDIANCE) 10 mg tablet Take 10 mg by mouth once daily. acetaminophen (TYLENOL EXTRA STRENGTH) 500 mg tablet Take 1,500 mg by mouth every 8 hours as needed. torsemide (DEMADEX) 10 mg tablet Take 10 mg by mouth once daily as needed. losartan (COZAAR) 50 mg tablet Take 50 mg by mouth once daily. pantoprazole DR (PROTONIX) 40 mg tablet Take 40 mg by mouth once daily. cholecalciferol (VITAMIN D-3) 50 mcg (2,000 unit) tablet Take 2,000 Units by mouth once daily. OMEGA-3 FATTY ACIDS ORAL Take 1 tablet by mouth once daily. magnesium oxide/magnesium (MAGNESIUM OXIDE-MG AA CHELATE ORAL) Take 250 mg by mouth once daily. albuterol HFA (PROVENTIL HFA, VENTOLIN HFA) 90 mcg/actuation inhaler Inhale 1 Puff as instructed as needed. metFORMIN (GLUCOPHAGE) 1,000 mg tablet Take 1,000 mg by mouth twice daily with meals. atorvastatin (LIPITOR) 20 mg tablet Take 20 mg by mouth once daily. furosemide (LASIX) 40 mg tablet Take 40 mg by mouth once daily. (Patient not taking: Reported on 07/04/2024) FIASP FLEXTOUCH U-100 INSULIN 100 unit/mL (3 mL) pen 22 units with breakfast, 36 units with lunch, 54 units with dinner. TRESIBA U-100 INSULIN 100 unit/mL injection 60 units with breakfast, 60 units with dinner, 54 units at bedtime. (Patient not taking: Reported on 06/06/2024) iv contrast (will be provided with radiology test) CT Chest W -Inject, intravenously, once for 1 dose.No IV access, insert saline lock prior to the beginning of sedation, infusion, injection of imaging exam. Discontinue saline lock post exam. If Pt. has a central line or IVAD, may access for administration according to line specific nursing protocol. Once exam is complete flush line and de-access according to line specific nursing protocol in the CT contrast administration guidelines link. iv contrast (will be provided with radiology test) CT ABD/PEL -Inject, intravenously, once for 1 dose.No IV access, insert saline lock prior to the beginning of sedation, infusion, injection of imaging exam. Discontinue saline lock post exam. If Pt. has a central line or IVAD, may access for administration according to line specific nursing protocol. Once exam is complete flush line and de-access according to line specific nursing protocol in the CT contrast administration guidelines link. enteric contrast (will be provided with radiology test) For CT ABD/PEL W IVCON Routine order Administer, As Directed One Time Only, via Oral, Rectal, both Oral and Rectal, Enteric Tube, Stoma or Indwelling Catheter, Enteric Contrast as designated per enteric contrast guidelines INV SEMAGLUTIDE, OZEMPIC,, 2 MG/1.5 ML, PEN (IRB 20-853) Inject 0.5 mg subcutaneously one time a week. For Investigation Drug Use Only. PI: Dr. Aleks Finn (Patient not taking: Reported on 07/04/2024) insulin aspart U-100 (NOVOLOG U-100 INSULIN ASPART) 100 unit/mL soln Take 26 units with breakfast, 42 units at lunch, 46 units at dinner, zero at bedtime insulin detemir U-100 (LEVEMIR) 100 unit/mL injection 60 breakfast, 60 lunch, and 42 bedtime. No current facility-administered medications for this visit. ALLERGIES: Penicillins PERSONAL HISTORY: SOCIAL HISTORY Social History Tobacco Use Smoking status: Former Current packs/day: 0.00 Average packs/day: 1 pack/day for 32.0 years (32.0 ttl pk-yrs) Types: Cigarettes Start date: 05/22/1968 Quit date: 05/22/2000 Years since quittin.1 Smokeless tobacco: Never Vaping Use Vaping status: Never Used Substance Use Topics Alcohol use: Yes Comment: occ Drug use: Yes Types: Marijuana Comment: gummies- marijuana FAMILY HISTORY FAMILY HISTORY Problem Relation Age of Onset Diabetes Father 86 d/t liver failure Breast Cancer Mother 65 Living Cancer Sister ? Lymphoma Diabetes Maternal Grandmother Diabetes Paternal Grandmother Anesthesia Problems No Family History REVIEW OF SYSTEMS: General - denies fevers HEENT - denies trauma/infections Resp - denies coughing up blood, denies breathing difficulties Cardiac - denies chest pain GI - see HPI - denies blood in urine Endocrine - has diabetes Heme - on Eliquis Psych - denies hallucinations PHYSICAL EXAMINATION: General: The patient is 74 year old male, well nourished, well hydrated in no acute distress. The patient is oriented to time, place, and person. VITALS: Blood pressure 126/58, pulse 82, weight (!) 139.3 kg (307 lb), SpO2 93%. Body mass index is 45.6 kg/m . Head: Normal cephalic, atraumatic Eyes: pupils are equally round, sclera are clear/anicteric Neck is supple with no tracheal deviation Cardiac: normal heart sounds, regular Respiratory: normal breath sounds, normal respiratory excursion and pattern. Abdominal exam: soft obese and benign Extremities: no clubbing, cyanosis or edema. Neuro: non focal Psych: normal mood The sensitive examination was discussed with the Patient or Patient's Authorized Seaman. As applicable, any other physician, advance practice provider, medical student, or other health professional student that will be observing or involved in the sensitive examination for educational or training purposes was discussed with the Patient or Authorized Seaman. The Patient or Authorized Seaman has agreed to proceed with the sensitive examination. (Sensitive examination includes inspection and/or palpation of the breasts, pelvis, prostate and anorectal regions) IMPRESSION: history of sigmoid colon cancer, anemia PLAN: I have discussed the above with the patient. I have offered colonoscopy and EGD, possible biopsies I have explained the procedure to the patient. I have counseled the patient as to the risks of the procedure, including but not limited to: infection, bleeding, injury to any intrabdominal organs such as liver/spleen, perforation of the GI tract, inability to complete the procedure, complications of anesthesia, etc. - the patient understands. The patient wishes to proceed. I have answered all questions to the patient s satisfaction and the patient has no further questions. Diagnoses: (Z85.038) History of colon cancer (primary encounter diagnosis) (J44.9) Chronic obstructive pulmonary disease, unspecified COPD type (HCC) (E66.01) Morbid obesity (HCC) [facility] 10-17-2024 History and physical note UPDATED HISTORY AND PHYSICAL EXAMINATION SERVICE DATE: 10/17/2024 SERVICE TIME: 10:11 Participation of a fellow, resident, medical student, or advanced practice provider student in performing the sensitive examination was discussed with the patient or authorized traffic workforce representative. The patient or authorized traffic workforce representative has agreed to proceed with the sensitive examination. PHYSICAL EXAM MUST BE COMPLETED ON ADMISSION The History and Physical (completed in the past 30 days) has been reviewed and the patient has been examined. The contents accurately reflect the patient's condition with the following additions or revisions since the H&P was completed. Examination indicates no changes. This H&P can be found in the Electronic Medical Record . SIGNATURE: Josephine Sutton MD PATIENT NAME: Cyn James JR DATE: October 17, 2024 TIME: 10:11 AM Source Note - Josephine Sutton MD - 10/17/2024 10:45 AM EDT HISTORY AND PHYSICAL Cyn James JR 1950 REFERRING PHYSICIAN: Katey Booker DO CHIEF COMPLAINT: Consult (colonoscopy with history of colon cancer) HPI: The patient is a 74 year old male referred for endoscopy. Cyn notes history of colon cancer. 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 He had presented to [facility] and diagnosed with pneumonia and discharged on home supplemental oxygen. He denies blood in his stools. He denies chronic abdominal pain. He denies chest pain; denies history of OK. Found to have anemia. 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 Leukocytosis 05/03/2023 Marijuana user 05/03/2023 Mixed hyperlipidemia Morbid obesity (HCC) 05/03/2023 Multiple myeloma not having achieved remission (HCC) 09/24/2022 On home O2 05/03/2023 CONCHA (obstructive sleep apnea) 05/03/2023 Peripheral sensory neuropathy Psoriasis 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 tiZANidine (ZANAFLEX) 4 mg tablet Take 4 mg by mouth every 8 hours as needed. apixaban (ELIQUIS) 5 mg tab(s) Take 5 mg by mouth two times a day. insulin glargine,hum.rec.anlog (BASAGLAR KWIKPEN U-100 INSULIN SUBCUTANEOUS) Inject subcutaneously. 60 units with breakfast 60 units with dinner 42 units at bedtime HUMALOG KWIKPEN INSULIN 100 unit/mL 28 units with breakfast, 34 units with lunch, 46 units with dinner. calcium carbonate/vitamin D3 (CALCIUM + D ORAL) Take 1 tablet by mouth once daily. potassium chloride ER (KLOR-CON) 20 mEq tablet Take 1 tablet by mouth once daily. knhmdqcnofl-somqucweb-iikubfqk (TRELEGY ELLIPTA) 200-62.5-25 mcg inhalation powder Inhale 1 Puff as instructed once daily. dexAMETHasone (DECADRON) 4 mg tablet Take 5 tablets with breakfast on day of each daratumuamb treatment. ondansetron (ZOFRAN) 8 mg tablet Take 1 tablet by mouth every 8 hours as needed for nausea/vomiting. dilTIAZem CD (CARDIZEM CD, CARTIA XT) 240 mg 24 hr capsule Take 1 capsule by mouth once daily. empagliflozin (JARDIANCE) 10 mg tablet Take 10 mg by mouth once daily. acetaminophen (TYLENOL EXTRA STRENGTH) 500 mg tablet Take 1,500 mg by mouth every 8 hours as needed. torsemide (DEMADEX) 10 mg tablet Take 10 mg by mouth once daily as needed. losartan (COZAAR) 50 mg tablet Take 50 mg by mouth once daily. pantoprazole DR (PROTONIX) 40 mg tablet Take 40 mg by mouth once daily. cholecalciferol (VITAMIN D-3) 50 mcg (2,000 unit) tablet Take 2,000 Units by mouth once daily. OMEGA-3 FATTY ACIDS ORAL Take 1 tablet by mouth once daily. magnesium oxide/magnesium (MAGNESIUM OXIDE-MG AA CHELATE ORAL) Take 250 mg by mouth once daily. albuterol HFA (PROVENTIL HFA, VENTOLIN HFA) 90 mcg/actuation inhaler Inhale 1 Puff as instructed as needed. metFORMIN (GLUCOPHAGE) 1,000 mg tablet Take 1,000 mg by mouth twice daily with meals. atorvastatin (LIPITOR) 20 mg tablet Take 20 mg by mouth once daily. furosemide (LASIX) 40 mg tablet Take 40 mg by mouth once daily. (Patient not taking: Reported on 07/04/2024) FIASP FLEXTOUCH U-100 INSULIN 100 unit/mL (3 mL) pen 22 units with breakfast, 36 units with lunch, 54 units with dinner. TRESIBA U-100 INSULIN 100 unit/mL injection 60 units with breakfast, 60 units with dinner, 54 units at bedtime. (Patient not taking: Reported on 06/06/2024) iv contrast (will be provided with radiology test) CT Chest W -Inject, intravenously, once for 1 dose.No IV access, insert saline lock prior to the beginning of sedation, infusion, injection of imaging exam. Discontinue saline lock post exam. If Pt. has a central line or IVAD, may access for administration according to line specific nursing protocol. Once exam is complete flush line and de-access according to line specific nursing protocol in the CT contrast administration guidelines link. iv contrast (will be provided with radiology test) CT ABD/PEL -Inject, intravenously, once for 1 dose.No IV access, insert saline lock prior to the beginning of sedation, infusion, injection of imaging exam. Discontinue saline lock post exam. If Pt. has a central line or IVAD, may access for administration according to line specific nursing protocol. Once exam is complete flush line and de-access according to line specific nursing protocol in the CT contrast administration guidelines link. enteric contrast (will be provided with radiology test) For CT ABD/PEL W IVCON Routine order Administer, As Directed One Time Only, via Oral, Rectal, both Oral and Rectal, Enteric Tube, Stoma or Indwelling Catheter, Enteric Contrast as designated per enteric contrast guidelines INV SEMAGLUTIDE, OZEMPIC,, 2 MG/1.5 ML, PEN (IRB 20-853) Inject 0.5 mg subcutaneously one time a week. For Investigation Drug Use Only. PI: Dr. Aleks Finn (Patient not taking: Reported on 07/04/2024) insulin aspart U-100 (NOVOLOG U-100 INSULIN ASPART) 100 unit/mL soln Take 26 units with breakfast, 42 units at lunch, 46 units at dinner, zero at bedtime insulin detemir U-100 (LEVEMIR) 100 unit/mL injection 60 breakfast, 60 lunch, and 42 bedtime. No current facility-administered medications for this visit. ALLERGIES: Penicillins PERSONAL HISTORY: SOCIAL HISTORY Social History Tobacco Use Smoking status: Former Current packs/day: 0.00 Average packs/day: 1 pack/day for 32.0 years (32.0 ttl pk-yrs) Types: Cigarettes Start date: 05/22/1968 Quit date: 05/22/2000 Years since quittin.1 Smokeless tobacco: Never Vaping Use Vaping status: Never Used Substance Use Topics Alcohol use: Yes Comment: occ Drug use: Yes Types: Marijuana Comment: gummies- marijuana FAMILY HISTORY FAMILY HISTORY Problem Relation Age of Onset Diabetes Father 86 d/t liver failure Breast Cancer Mother 65 Living Cancer Sister ? Lymphoma Diabetes Maternal Grandmother Diabetes Paternal Grandmother Anesthesia Problems No Family History REVIEW OF SYSTEMS: General - denies fevers HEENT - denies trauma/infections Resp - denies coughing up blood, denies breathing difficulties Cardiac - denies chest pain GI - see HPI - denies blood in urine Endocrine - has diabetes Heme - on Eliquis Psych - denies hallucinations PHYSICAL EXAMINATION: General: The patient is 74 year old male, well nourished, well hydrated in no acute distress. The patient is oriented to time, place, and person. VITALS: Blood pressure 126/58, pulse 82, weight (!) 139.3 kg (307 lb), SpO2 93%. Body mass index is 45.6 kg/m . Head: Normal cephalic, atraumatic Eyes: pupils are equally round, sclera are clear/anicteric Neck is supple with no tracheal deviation Cardiac: normal heart sounds, regular Respiratory: normal breath sounds, normal respiratory excursion and pattern. Abdominal exam: soft obese and benign Extremities: no clubbing, cyanosis or edema. Neuro: non focal Psych: normal mood The sensitive examination was discussed with the Patient or Patient's Authorized Seaman. As applicable, any other physician, advance practice provider, medical student, or other health professional student that will be observing or involved in the sensitive examination for educational or training purposes was discussed with the Patient or Authorized Seaman. The Patient or Authorized Seaman has agreed to proceed with the sensitive examination. (Sensitive examination includes inspection and/or palpation of the breasts, pelvis, prostate and anorectal regions) IMPRESSION: history of sigmoid colon cancer, anemia PLAN: I have discussed the above with the patient. I have offered colonoscopy and EGD, possible biopsies I have explained the procedure to the patient. I have counseled the patient as to the risks of the procedure, including but not limited to: infection, bleeding, injury to any intrabdominal organs such as liver/spleen, perforation of the GI tract, inability to complete the procedure, complications of anesthesia, etc. - the patient understands. The patient wishes to proceed. I have answered all questions to the patient s satisfaction and the patient has no further questions. Diagnoses: (Z85.038) History of colon cancer (primary encounter diagnosis) (J44.9) Chronic obstructive pulmonary disease, unspecified COPD type (HCC) (E66.01) Morbid obesity (HCC) HISTORY AND PHYSICAL Cyn Santamaria Erika 1950 REFERRING PHYSICIAN: Katey Booker DO CHIEF COMPLAINT: Consult (colonoscopy with history of colon cancer) HPI: The patient is a 74 year old male referred for endoscopy. Cyn notes history of colon cancer. 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 He had presented to [facility] and diagnosed with pneumonia and discharged on home supplemental oxygen. He denies blood in his stools. He denies chronic abdominal pain. He denies chest pain; denies history of OK. Found to have anemia. 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 Leukocytosis 05/03/2023 Marijuana user 05/03/2023 Mixed hyperlipidemia Morbid obesity (HCC) 05/03/2023 Multiple myeloma not having achieved remission ([facility]) 09/24/2022 On home O2 05/03/2023 CONCHA (obstructive sleep apnea) 05/03/2023 Peripheral sensory neuropathy Psoriasis 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 tiZANidine (ZANAFLEX) 4 mg tablet Take 4 mg by mouth every 8 hours as needed. apixaban (ELIQUIS) 5 mg tab(s) Take 5 mg by mouth two times a day. insulin glargine,hum.rec.anlog (BASAGLAR KWIKPEN U-100 INSULIN SUBCUTANEOUS) Inject subcutaneously. 60 units with breakfast 60 units with dinner 42 units at bedtime HUMALOG KWIKPEN INSULIN 100 unit/mL 28 units with breakfast, 34 units with lunch, 46 units with dinner. calcium carbonate/vitamin D3 (CALCIUM + D ORAL) Take 1 tablet by mouth once daily. potassium chloride ER (KLOR-CON) 20 mEq tablet Take 1 tablet by mouth once daily. wjorqujxytr-cjxzmarrn-mtfuhino (TRELEGY ELLIPTA) 200-62.5-25 mcg inhalation powder Inhale 1 Puff as instructed once daily. dexAMETHasone (DECADRON) 4 mg tablet Take 5 tablets with breakfast on day of each daratumuamb treatment. ondansetron (ZOFRAN) 8 mg tablet Take 1 tablet by mouth every 8 hours as needed for nausea/vomiting. dilTIAZem CD (CARDIZEM CD, CARTIA XT) 240 mg 24 hr capsule Take 1 capsule by mouth once daily. empagliflozin (JARDIANCE) 10 mg tablet Take 10 mg by mouth once daily. acetaminophen (TYLENOL EXTRA STRENGTH) 500 mg tablet Take 1,500 mg by mouth every 8 hours as needed. torsemide (DEMADEX) 10 mg tablet Take 10 mg by mouth once daily as needed. losartan (COZAAR) 50 mg tablet Take 50 mg by mouth once daily. pantoprazole DR (PROTONIX) 40 mg tablet Take 40 mg by mouth once daily. cholecalciferol (VITAMIN D-3) 50 mcg (2,000 unit) tablet Take 2,000 Units by mouth once daily. OMEGA-3 FATTY ACIDS ORAL Take 1 tablet by mouth once daily. magnesium oxide/magnesium (MAGNESIUM OXIDE-MG AA CHELATE ORAL) Take 250 mg by mouth once daily. albuterol HFA (PROVENTIL HFA, VENTOLIN HFA) 90 mcg/actuation inhaler Inhale 1 Puff as instructed as needed. metFORMIN (GLUCOPHAGE) 1,000 mg tablet Take 1,000 mg by mouth twice daily with meals. atorvastatin (LIPITOR) 20 mg tablet Take 20 mg by mouth once daily. furosemide (LASIX) 40 mg tablet Take 40 mg by mouth once daily. (Patient not taking: Reported on 07/04/2024) FIASP FLEXTOUCH U-100 INSULIN 100 unit/mL (3 mL) pen 22 units with breakfast, 36 units with lunch, 54 units with dinner. TRESIBA U-100 INSULIN 100 unit/mL injection 60 units with breakfast, 60 units with dinner, 54 units at bedtime. (Patient not taking: Reported on 06/06/2024) iv contrast (will be provided with radiology test) CT Chest W -Inject, intravenously, once for 1 dose.No IV access, insert saline lock prior to the beginning of sedation, infusion, injection of imaging exam. Discontinue saline lock post exam. If Pt. has a central line or IVAD, may access for administration according to line specific nursing protocol. Once exam is complete flush line and de-access according to line specific nursing protocol in the CT contrast administration guidelines link. iv contrast (will be provided with radiology test) CT ABD/PEL -Inject, intravenously, once for 1 dose.No IV access, insert saline lock prior to the beginning of sedation, infusion, injection of imaging exam. Discontinue saline lock post exam. If Pt. has a central line or IVAD, may access for administration according to line specific nursing protocol. Once exam is complete flush line and de-access according to line specific nursing protocol in the CT contrast administration guidelines link. enteric contrast (will be provided with radiology test) For CT ABD/PEL W IVCON Routine order Administer, As Directed One Time Only, via Oral, Rectal, both Oral and Rectal, Enteric Tube, Stoma or Indwelling Catheter, Enteric Contrast as designated per enteric contrast guidelines INV SEMAGLUTIDE, OZEMPIC,, 2 MG/1.5 ML, PEN (IRB 20-853) Inject 0.5 mg subcutaneously one time a week. For Investigation Drug Use Only. PI: Dr. Aleks Finn (Patient not taking: Reported on 07/04/2024) insulin aspart U-100 (NOVOLOG U-100 INSULIN ASPART) 100 unit/mL soln Take 26 units with breakfast, 42 units at lunch, 46 units at dinner, zero at bedtime insulin detemir U-100 (LEVEMIR) 100 unit/mL injection 60 breakfast, 60 lunch, and 42 bedtime. No current facility-administered medications for this visit. ALLERGIES: Penicillins PERSONAL HISTORY: SOCIAL HISTORY Social History Tobacco Use Smoking status: Former Current packs/day: 0.00 Average packs/day: 1 pack/day for 32.0 years (32.0 ttl pk-yrs) Types: Cigarettes Start date: 05/22/1968 Quit date: 05/22/2000 Years since quittin.1 Smokeless tobacco: Never Vaping Use Vaping status: Never Used Substance Use Topics Alcohol use: Yes Comment: occ Drug use: Yes Types: Marijuana Comment: gummies- marijuana FAMILY HISTORY FAMILY HISTORY Problem Relation Age of Onset Diabetes Father 86 d/t liver failure Breast Cancer Mother 65 Living Cancer Sister ? Lymphoma Diabetes Maternal Grandmother Diabetes Paternal Grandmother Anesthesia Problems No Family History REVIEW OF SYSTEMS: General - denies fevers HEENT - denies trauma/infections Resp - denies coughing up blood, denies breathing difficulties Cardiac - denies chest pain GI - see HPI - denies blood in urine Endocrine - has diabetes Heme - on Eliquis Psych - denies hallucinations PHYSICAL EXAMINATION: General: The patient is 74 year old male, well nourished, well hydrated in no acute distress. The patient is oriented to time, place, and person. VITALS: Blood pressure 126/58, pulse 82, weight (!) 139.3 kg (307 lb), SpO2 93%. Body mass index is 45.6 kg/m . Head: Normal cephalic, atraumatic Eyes: pupils are equally round, sclera are clear/anicteric Neck is supple with no tracheal deviation Cardiac: normal heart sounds, regular Respiratory: normal breath sounds, normal respiratory excursion and pattern. Abdominal exam: soft obese and benign Extremities: no clubbing, cyanosis or edema. Neuro: non focal Psych: normal mood The sensitive examination was discussed with the Patient or Patient's Authorized Seaman. As applicable, any other physician, advance practice provider, medical student, or other health professional student that will be observing or involved in the sensitive examination for educational or training purposes was discussed with the Patient or Authorized Seaman. The Patient or Authorized Seaman has agreed to proceed with the sensitive examination. (Sensitive examination includes inspection and/or palpation of the breasts, pelvis, prostate and anorectal regions) IMPRESSION: history of sigmoid colon cancer, anemia PLAN: I have discussed the above with the patient. I have offered colonoscopy and EGD, possible biopsies I have explained the procedure to the patient. I have counseled the patient as to the risks of the procedure, including but not limited to: infection, bleeding, injury to any intrabdominal organs such as liver/spleen, perforation of the GI tract, inability to complete the procedure, complications of anesthesia, etc. - the patient understands. The patient wishes to proceed. I have answered all questions to the patient s satisfaction and the patient has no further questions. Diagnoses: (Z85.038) History of colon cancer (primary encounter diagnosis) (J44.9) Chronic obstructive pulmonary disease, unspecified COPD type (HCC) (E66.01) Morbid obesity (HCC) documented in this encounter [facility] 10-04-2024 Instructions Nafisa Jose APRN.ENROUTE CONTROLLER - 10/04/2024 2:07 PM EDT Images from the original note were not included. [facility] PATIENT PREOPERATIVE INSTRUCTIONS Herman Josephine has scheduled you for your procedure at this surgery center: [facility]: [phone] -- [address] [place] [id number]. Please read below carefully for your personalized instructions. Dietary Restrictions: - Follow bowel prep instructions: clear liquids need to be stopped 2 hours prior to schedule arrival at facility Medications: Unless instructed differently below, stay on all of your medications until your surgery. If you start any new medications after today's visit, please contact your surgeon. Pre-Surgery Med Instructions Medication Instructions acyclovir (ZOVIRAX) 400 mg tablet Continue as needed potassium chloride ER (KLOR-CON) 20 mEq tablet If you normally take this medication in the morning, take the morning of surgery. tiZANidine (ZANAFLEX) 4 mg tablet Continue as needed apixaban (ELIQUIS) 5 mg tab(s) Hold 2 days before surgery. Last dose 10/14/2024. insulin glargine,hum.rec.anlog (BASAGLAR KWIKPEN U-100 INSULIN SUBCUTANEOUS) Insulin: Do not take the morning of surgery. Take 75% of your usual dose the night before surgery if possible. If not possible, take full dose the night before surgery. HUMALOG KWIKPEN INSULIN 100 unit/mL Do not take the day of surgery calcium carbonate/vitamin D3 (CALCIUM + D ORAL) Hold 7 days before surgery. Last dose 10/14/2024. iv contrast (will be provided with radiology test) iv contrast (will be provided with radiology test) enteric contrast (will be provided with radiology test) oorpgrkfblg-ptjjtaqsx-bjorkipk (TRELEGY ELLIPTA) 200-62.5-25 mcg inhalation powder If you normally take this medication in the morning, take the morning of surgery. dexAMETHasone (DECADRON) 4 mg tablet If you normally take this medication in the morning, take the morning of surgery. ondansetron (ZOFRAN) 8 mg tablet Continue as needed dilTIAZem CD (CARDIZEM CD, CARTIA XT) 240 mg 24 hr capsule If you normally take this medication in the morning, take the morning of surgery. empagliflozin (JARDIANCE) 10 mg tablet Hold 3 days before surgery. Last dose 10/13/2024. acetaminophen (TYLENOL EXTRA STRENGTH) 500 mg tablet Continue as needed torsemide (DEMADEX) 10 mg tablet Do not take the day of surgery losartan (COZAAR) 50 mg tablet If you normally take this medication in the morning, take the morning of surgery. pantoprazole DR (PROTONIX) 40 mg tablet If you normally take this medication in the morning, take the morning of surgery. cholecalciferol (VITAMIN D-3) 50 mcg (2,000 unit) tablet Hold 7 days before surgery. Last dose 10/09/2024. OMEGA-3 FATTY ACIDS ORAL Hold 7 days before surgery. Last dose 10/09/2024. magnesium oxide/magnesium (MAGNESIUM OXIDE-MG AA CHELATE ORAL) Hold 7 days before surgery. Last dose 10/09/2024. albuterol HFA (PROVENTIL HFA, VENTOLIN HFA) 90 mcg/actuation inhaler Continue as needed metFORMIN (GLUCOPHAGE) 1,000 mg tablet Do not take the day of surgery atorvastatin (LIPITOR) 20 mg tablet If you normally take this medication in the morning, take the morning of surgery. If you take any medications for erectile dysfunction-Cialis (Tadalafil), Levitra, Staxyn (Vardenafil) Viagra (Sildenenafil please do not take these for 48 hours before surgery. If you start any new medications after today's visit, please contact the surgeon's office. If you are currently using a ipdh-sqw-lzab injectable or oral medication for diabetes or weight loss such as Dulaglutide (Trulicity), Exenatide (Byetta, Bydureon), Liraglutide (Victoza, Saxenda), Semaglutide (Ozempic, Wegovy, Rybelsus), or Tirzepatide (Mounjaro), the medicine should be stopped at least 7 days before surgery. These medicines can cause food to remain in your stomach for a very long time and increase the risks from surgery and anesthesia. Not stopping the medication for a long enough time may result in your surgery being rescheduled. Blood Thinning Medications: - Stop NSAIDS (Ibuprofen, Advil, Aleve, Motrin, Celebrex, Mobic, etc.) 7 days before surgery, as directed by your surgeon. - Stop Aspirin 7 days before surgery, as directed by your surgeon. - Stop ALL herbal and dietary supplements 7 days before surgery. - You may take Tylenol (Acetaminophen) or any of your pain medications that do not contain aspirin or NSAIDS as needed. Important Reminders: - Candy, mints, and tobacco products are NOT permitted the morning of surgery. - Hearing aids, dentures and glasses may be worn the morning of surgery. - NO jewelry, body piercings, makeup, hairpins or contacts are to be worn the day of surgery. If you develop symptoms such as a fever, cold, or flu, or have other changes to your health within TWO DAYS of scheduled surgery or the morning of surgery, please contact the surgery center above. Personal Belongings: -Please have photo ID and insurance cards. -If you do not have a copy of advance directives on file with us, please bring a copy with you on the day of surgery. - Leave ALL valuables and money at home or with family members. - Please bring high-quality footwear, such as sneakers, to the hospital for ambulating post-surgery. For Outpatient Procedures: - YOU MUST HAVE A RESPONSIBLE RETREADER TAKE YOU HOME. A EDUCATION COUNSELOR OR RETENTION MANAGER CANNOT BE MADE A RESPONSIBLE RETREADER. - We recommend that a responsible person stays with you overnight to take care of you. - You cannot stay in a hotel alone after outpatient surgery. You will not be permitted to have your surgery, if you do not have someone to take care of you. Arrival Time for Surgery: - The Surgery Center or hospital where you are having surgery will call the afternoon before surgery (or Tuesday for Tuesday surgery) with a scheduled arrival time. - If you have not heard by 4 pm, please contact the surgery center above. Please be aware that emergency situations arise, which may delay or change your surgical time. If this happens, we will notify you as soon as possible and regret any inconvenience. If you already have an Advance Directive, please fax a copy to [phone] or email to for it to be added to your chart. If you do not have an Advance Directive, you can find the appropriate form and more information at [email or web address]. We recommend that you complete the Advance Directive form found on the website and bring it with you the day of your surgery. It can be witnessed and scanned into your chart that day. Nafisa Jose APRN.JANICE documented in this encounter [facility] 10-04-2024 History and physical note Images from the original note were not included. [facility] HISTORY AND PHYSICAL EXAMINATION SERVICE DATE: 10/04/2024 SERVICE TIME: 3:24 PM PRIMARY CARE PHYSICIAN: Krishna Mcdaniel DO, DO Assessment Patient has the following medical conditions which may affect charles-operative course: CHF (congestive heart failure) (HCC) Assessment: Euvolemic on exam today, controlled on rx, following cardiology, EF 70% 04/2024 echo scanned into [facility], received cardiac optimization and last OV below: Scan on 07/20/2024 8:45 AM by Provider, External, PA-C: cardiac clearance HLD (hyperlipidemia) Assessment: c/w statin HTN (hypertension) Assessment: controlled on rx Last 14 BP Last 14 Encounter BP Readings: Date: BP: 10/04/2024 136/60 09/26/2024 144/68 09/19/2024 150/58 09/14/2024 127/62 09/12/2024 134/58 09/10/2024 105/52 09/06/2024 121/55 08/01/2024 198/73 07/16/2024 126/58 07/04/2024 143/75 06/06/2024 134/66 05/09/2024 167/76 04/11/2024 133/76 03/21/2024 122/78 COPD (chronic obstructive pulmonary disease) (HCC) Assessment: Wears NC oxygen to 3L/min as tolerated with O2 sats with activity, following pulmonary, records requested CONCHA (obstructive sleep apnea) Assessment: c/w CPAP GERD (gastroesophageal reflux disease) Assessment: controlled on rx Diabetes mellitus, type 2 (HCC) Assessment: IDDM and oral agent following endo at [place] Hemoglobin A1C (%) Date Value 05/03/2023 7.6 Elevated platelet count Assessment: hx Platelet Count Date Value Ref Range Status 09/26/2024 406 (H) 150 - 400 k/uL Final Anemia Assessment: Hemoglobin (g/dL) Date Value 09/26/2024 10.7 01/27/2021 13.8 Hematocrit (%) Date Value 09/26/2024 37.5 01/27/2021 41.8 WBC (k/uL) Date Value 09/26/2024 9.12 01/27/2021 10.39 Leukocytosis Assessment: hx WBC Date Value Ref Range Status 09/26/2024 9.12 3.70 - 11.00 k/uL Final Cancer of sigmoid colon (HCC) Assessment: Underwent robotic laparoscopic sigmoid colectomy with colorectal anastomosis on 05/10/2023. Smoldering multiple myeloma (HCC) Assessment: following hem/onc Receiving daratumumab -Continue holding lenalidomide, but will restart if progresses. -Dexamethasone 8 mg PO weekly due to exacerbation of blood glucose at higher doses. Last OV below 09/26/24: Note Details Marijuana user Assessment: Uses marijuana gummies Discussed risks and strongly urged patient to quit as soon as possible. Hyponatremia Assessment: hx Sodium Date Value Ref Range Status 09/26/2024 137 136 - 144 mmol/L Final 08/29/2024 138 136 - 144 mmol/L Final 08/01/2024 139 136 - 144 mmol/L Final Obesity, Class III, BMI 40-49.9 (morbid obesity) (HCC) Assessment: Body mass index is 45.71 kg/m . Iron malabsorption Assessment: following hematology, hx IV venofer History of gastritis Assessment: 11/2023 Underwent EGD which demonstrated severe erosive gastritis and 2 bleeding angiodysplastic lesions in the stomach which were treated with heater probe. He also had duodenitis which was biopsied. He was treated with pantoprazole 40 mg twice daily. Paroxysmal A-fib (HCC) Assessment: daily Eliquis, received instructions to hold 2 days, pt verbalized understanding. Currently wearing Zio patch for 2 weeks to determine burden of AF, following OSH cardiology ANESTHESIA FINDINGS: Intubation History: No history of difficult intubation Significant Anesthesia Considerations: none Airway History: No history of difficult airway Becker Activity Status Index: METS: Walk indoors, such as around the house (1.75 METs) Do light work around the house, such as dusting or washing dishes (2.70 METs) Take care of self; that is eating, dressing, bathing, using the toilet (2.75 METs) Walk a block or two on level ground (2.75 METs) DASI Score: 9.95 Patient denies any chest pain or undue shortness of breath with the above physical activity. Clinical Frailty Scale: 4. Apparently vulnerable STOP-Bang Score: Snores loudly Has been observed to stop breathing or choking/gasping during sleep Has or is being treated for high blood pressure BMI greater than 35 kg/m^2 Patient over 50 years old Has a large neck Male patient Denies feeling tired, fatigued, or sleepy during the daytime STOP-Bang Score: 7 [id number] Score: Age: 65-74 Sex: male CHF history: Yes Hypertension history: Yes Stroke/TIA/thromboembolism history: No Vascular disease history: No Diabetes history: Yes [id number] Score: 4 ARISCAT Score: Age: 51-80 Preoperative SpO2: 91-95% Respiratory infection in the last month: No Preoperative anemia: No Surgical incision: peripheral Duration of surgery: <2 hrs Emergency procedure: No ARISCAT Score: 11 I - PHYSICAL EVALUATION AIRWAY Patient intubated: No. Tracheostomy tube not present Mallampati: III. TM distance: >3 FB. Neck ROM: full ROM without neurological symptoms. Mouth opening: adequate. Short neck: no. Thick neck: yes Goodman present: yes Lip Bite Test: I Microretrognathia/Micronagthia/Rec essed Chin: No DENTAL Dental findings: teeth intact. Additional comments: +crowns/back. II - ANESTHESIA PLAN Anesthetic Plan: other Beta Malick Monitoring Plan Post Procedure Analgesic Plan Prepared for Surgery: optimally prepared for surgery, pending [see comment]. Records requested CONSULTS: Patient does not require consults for optimization at this time Planned Anesthetic: other anesthesia choice The Following Tests/Procedures Have Been Initiated: No orders of the defined types were placed in this encounter. REASON FOR VISIT: Cyn James JR is a 74 year old male who is scheduled for * No surgery found * at the request of Dr. Josephine Sutton for consultation. My final recommendation will be communicated back to the requesting physician by way of shared medical record or letter. Subjective The patient has the following: COVID-19 Immunization Status Current Care Gaps Covid-19 Vaccine ( season) Overdue since 12/25/2023 04/20/2021 Imm Admin: COVID-19 original vaccine, age 12+ yr, monovalent (PFIZER-BIONTECH - PURPLE TOP) 10/09/2020 Imm Admin: COVID-19 original vaccine, age 12+ yr, monovalent (PFIZER-BIONTECH - PURPLE TOP) 09/18/2020 Imm Admin: COVID-19 original vaccine, age 12+ yr, monovalent (PFIZER-BIONTECH - PURPLE TOP) Only the first 3 history entries have been loaded, but more history exists. CHIEF COMPLAINT: Pre-op exam HPI: Cyn James JR is a 74 year old seen for PAC due to scheduled above surgery because of colon CA screening. 07/16/24, Dr. Josephine Sutton CHIEF COMPLAINT: Consult (colonoscopy with history of colon cancer) HPI: The patient is a 74 year old male referred for endoscopy. Cyn notes history of colon cancer. 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 He had presented to [facility] and diagnosed with pneumonia and discharged on home supplemental oxygen. He denies blood in his stools. He denies chronic abdominal pain. He denies chest pain; denies history of OK. REVIEW OF SYSTEMS: General: No weight loss, malaise or fevers. 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 No neurological symptoms or problems. Respiratory: +former smoker 1ppd/30 years Positive for: COPD, home oxygen (with activity), obstructive sleep apnea and CPAP/BiPAP compliant. Patient is on 3L liter(s) of home O2. Negative for: asthma, current cough, pneumonia within 6 weeks, tobacco use and URI < 2 weeks. Cardiovascular: Positive for: anticoagulation therapy (Eliquis), atrial fibrillation, CHF, DVT/PE (july 2024), hyperlipidemia and hypertension Negative for: abdominal aortic aneurysm, AICD/PPM, angina, arrhythmia, CAD, chest pain, congenital heart defect, recent OK, murmur/valvular heart disease, PTCA, PVD, open heart surgery and valve surgery. GI: Positive for: GERD Negative for: abdominal pain, dysphagia, hepatitis, irritable bowel syndrome, inflammatory bowel disease, liver disease, nausea, pancreatitis, vomiting and ETOH >2 drinks/day. : Positive for: BPH (s/p TURP 2022). Negative for: urinary incontinence, nephrolithiasis, renal failure and urinary tract infection. Endocrine: Positive for: diabetes mellitus. Patient's diabetes mellitus is controlled by insulin and oral agents. Negative for: hypothyroidism. Hematology: Positive for: chronic anti-coagulation/platelet meds. Patient is on anti-coagulation/platelet medication(s): DOAC. Negative for: anemia, bruises/bleeds easily and transfusion of at least 4 units within 72 hours prior to surgery. Oncology: Smoldering mulitple myeloma, chemo, following hematology +Colon CA s/p resection 04/2023 Psych: No history of psychiatric symptoms or problems. Musculoskeletal: Negative for joint pain or swelling, back pain or muscle pain. Skin: +psoriasis, otc rx as needed Implanted Devices: No implanted devices. PAST MEDICAL HISTORY Diagnosis Date Anemia 05/03/2023 CHF (congestive heart failure) ([facility]) 05/03/2023 CKD (chronic kidney disease) stage 1, GFR 90 ml/min or greater Congestive heart failure (HCC) COPD (chronic obstructive pulmonary disease) (HCC) Diabetes mellitus (HCC) Diabetes mellitus, type 2 (HCC) 05/03/2023 Elevated platelet count 05/03/2023 GERD (gastroesophageal reflux disease) 05/03/2023 HLD (hyperlipidemia) 05/03/2023 HTN (hypertension) Iron deficiency anemia due to chronic blood loss 12/30/2022 Iron malabsorption (HCC) 12/30/2022 Leukocytosis 05/03/2023 Marijuana user 05/03/2023 Mixed hyperlipidemia Morbid obesity (HCC) 05/03/2023 Multiple myeloma not having achieved remission (HCC) 09/24/2022 On home O2 05/03/2023 CONCHA (obstructive sleep apnea) 05/03/2023 Peripheral sensory neuropathy Psoriasis Red blood cell antibody positive 05/04/2023 Sleep apnea PAST SURGICAL HISTORY Procedure Laterality Date CATARACT EXTRACTION HX 04/25/2013 Left eye FOOT SURGERY HX Left PAST SURGICAL HISTORY OF 02/02/2023 TURP TRANSURETHRAL ELEC-SURG PROSTATECTOM FAMILY HISTORY Problem Relation Age of Onset Diabetes Father 86 d/t liver failure Breast Cancer Mother 65 Living Cancer Sister ? Lymphoma Diabetes Maternal Grandmother Diabetes Paternal Grandmother Anesthesia Problems No Family History Social History Tobacco Use Smoking status: Former Current packs/day: 0.00 Average packs/day: 1 pack/day for 32.0 years (32.0 ttl pk-yrs) Types: Cigarettes Start date: 05/22/1968 Quit date: 05/22/2000 Years since quittin.3 Smokeless tobacco: Never Vaping Use Vaping status: Never Used Substance Use Topics Alcohol use: Yes Comment: occ Drug use: Yes Types: Marijuana Comment: gummies- marijuana Prior to Admission medications as of 10/04/24 1407 Medication Sig Last Dose Taking acyclovir (ZOVIRAX) 400 mg tablet Take 1 tablet by mouth two times a day. Yes potassium chloride ER (KLOR-CON) 20 mEq tablet Take 1 tablet by mouth once daily. Yes tiZANidine (ZANAFLEX) 4 mg tablet Take 4 mg by mouth every 8 hours as needed. Yes apixaban (ELIQUIS) 5 mg tab(s) Take 5 mg by mouth two times a day. Yes insulin glargine,hum.rec.anlog (BASAGLAR KWIKPEN U-100 INSULIN SUBCUTANEOUS) Inject subcutaneously. 60 units with breakfast 60 units with dinner 42 units at bedtime Yes HUMALOG KWIKPEN INSULIN 100 unit/mL 28 units with breakfast, 34 units with lunch, 46 units with dinner. Yes calcium carbonate/vitamin D3 (CALCIUM + D ORAL) Take 1 tablet by mouth once daily. Yes iv contrast (will be provided with radiology test) CT Chest W -Inject, intravenously, once for 1 dose.No IV access, insert saline lock prior to the beginning of sedation, infusion, injection of imaging exam. Discontinue saline lock post exam. If Pt. has a central line or IVAD, may access for administration according to line specific nursing protocol. Once exam is complete flush line and de-access according to line specific nursing protocol in the CT contrast administration guidelines link. Yes iv contrast (will be provided with radiology test) CT ABD/PEL -Inject, intravenously, once for 1 dose.No IV access, insert saline lock prior to the beginning of sedation, infusion, injection of imaging exam. Discontinue saline lock post exam. If Pt. has a central line or IVAD, may access for administration according to line specific nursing protocol. Once exam is complete flush line and de-access according to line specific nursing protocol in the CT contrast administration guidelines link. Yes enteric contrast (will be provided with radiology test) For CT ABD/PEL W IVCON Routine order Administer, As Directed One Time Only, via Oral, Rectal, both Oral and Rectal, Enteric Tube, Stoma or Indwelling Catheter, Enteric Contrast as designated per enteric contrast guidelines Yes umfcirkbifv-bkpbsupfs-sneucdpt (TRELEGY ELLIPTA) 200-62.5-25 mcg inhalation powder Inhale 1 Puff as instructed once daily. Yes dexAMETHasone (DECADRON) 4 mg tablet Take 5 tablets with breakfast on day of each daratumuamb treatment. Yes ondansetron (ZOFRAN) 8 mg tablet Take 1 tablet by mouth every 8 hours as needed for nausea/vomiting. Yes dilTIAZem CD (CARDIZEM CD, CARTIA XT) 240 mg 24 hr capsule Take 1 capsule by mouth once daily. Yes empagliflozin (JARDIANCE) 10 mg tablet Take 10 mg by mouth once daily. Yes acetaminophen (TYLENOL EXTRA STRENGTH) 500 mg tablet Take 1,500 mg by mouth every 8 hours as needed. Yes torsemide (DEMADEX) 10 mg tablet Take 10 mg by mouth once daily as needed. Yes losartan (COZAAR) 50 mg tablet Take 50 mg by mouth once daily. Yes pantoprazole DR (PROTONIX) 40 mg tablet Take 40 mg by mouth once daily. Yes cholecalciferol (VITAMIN D-3) 50 mcg (2,000 unit) tablet Take 2,000 Units by mouth once daily. Yes OMEGA-3 FATTY ACIDS ORAL Take 1 tablet by mouth once daily. Yes magnesium oxide/magnesium (MAGNESIUM OXIDE-MG AA CHELATE ORAL) Take 250 mg by mouth once daily. Yes albuterol HFA (PROVENTIL HFA, VENTOLIN HFA) 90 mcg/actuation inhaler Inhale 1 Puff as instructed as needed. Yes metFORMIN (GLUCOPHAGE) 1,000 mg tablet Take 1,000 mg by mouth twice daily with meals. Yes atorvastatin (LIPITOR) 20 mg tablet Take 20 mg by mouth once daily. Yes No medication comments found. ALLERGIES Allergen Reactions Penicillins Rash, Swelling Objective PHYSICAL EXAM: General: alert and oriented (x3), healthy appearance and morbidly obese. Pertinent negatives noted - not distressed. With oxygen, antalgic gait. Skin: normal color, no rash or lesions. HEENT: EOM intact and pupils equal round. Pertinent negatives noted - no carotid bruit. Cardiovascular: regular rate and rhythm, normal S1 and S2, no rub, murmurs, or gallop. Respiratory: normal breath sounds, no wheezes or crackles. No chest wall deformity or tenderness. Abdomen: soft. Pertinent negatives noted - not tender. Extremities: no deformity, no edema or tenderness, no joint swelling or clubbing. Neurological: normal cognition and motor skills. PAIN ASSESSMENT: VITALS: BP 136/60 Pulse 54 Temp (Src) 98.8 (Temporal) Resp 18 Ht 5' 8 (1.73m) Wt 300 lb 9.6 oz (136.4kg) SpO2 91[on 3 liters O2 via NC]% BMI 45.72 kg/(m^2). Diagnostic tests reviewed for today's visit: Lab Value Units Date High Low HB 10.7 g/dL 09/26/2024 17.0 13.0 HCT 37.5 % 09/26/2024 51.0 39.0 WBC 9.12 k/uL 09/26/2024 11.00 3.70 PLT 406 k/uL 09/26/2024 400 150 NA 137 mmol/L 09/26/2024 144 136 K 4.0 mmol/L 09/26/2024 5.1 3.7 GLUC 181 mg/dL 09/26/2024 99 74 BUN 18 mg/dL 09/26/2024 24 9 CREAT 0.83 mg/dL 09/26/2024 1.22 0.73 PTSEC No results within date range. INR No results within date range. APTT No results within date range. ALT 15 U/L 09/26/2024 54 10 AST 19 U/L 09/26/2024 40 14 TBILI 0.7 mg/dL 09/26/2024 1.3 0.2 TSH No results within date range. Lab Value Units Date High Low HCGQT No results within date range. UHCG No results within date range. HCG, BODY* No results within date range. Lab Value Units Date High Low ABORHD No results within date range. ABSCREEN No results within date range. Hemoglobin A1C (%) Date Value 05/03/2023 7.6 Recent Results (from the past 8760 hours) ECG COMPLETE Collection Time: 11/09/23 10:23 AM Result Value Ventricular Rate 53 Atrial Rate 75 QRS Duration 120 QT Interval 448 QTC Calculation (Bazett) 420 Calculated R Rimrock -24 Calculated T Rimrock 199 Impression SINUS RHYTHM 2ND DEGREE AV BLOCK (MOBITZ I) WITH OCCASIONAL PREMATURE VENTRICULAR COMPLEXES Septal Infarct , AGE UNDETERMINED ST & INFERIOR T WAVE ABNORMALITY ST & ANTEROLATERAL T WAVE ABNORMALITY ABNORMAL ECG No results found for this or any previous visit (from the past 20024 hours). Instructions Given to Patient: Instructions located in the after visit summary. Patient given verbal and written preop instructions and voices comprehension and compliance. SIGNATURE: Nafisa Jose APRN.CNP PATIENT NAME: Cyn James JR DATE: October 04, 2024 TIME: 2:00 PM PAGER/CONTACT #: [facility] 10-04-2024 History and physical note Images from the original note were not included. [facility] HISTORY AND PHYSICAL EXAMINATION SERVICE DATE: 10/04/2024 SERVICE TIME: 3:24 PM PRIMARY CARE PHYSICIAN: Krishna Mcdaniel DO, DO Assessment Patient has the following medical conditions which may affect charles-operative course: CHF (congestive heart failure) (HCC) Assessment: Euvolemic on exam today, controlled on rx, following cardiology, EF 70% 04/2024 echo scanned into the medical center, received cardiac optimization and last OV below: Scan on 07/20/2024 8:45 AM by Provider, External, PA-C: cardiac clearance HLD (hyperlipidemia) Assessment: c/w statin HTN (hypertension) Assessment: controlled on rx Last 14 BP Last 14 Encounter BP Readings: Date: BP: 10/04/2024 136/60 09/26/2024 144/68 09/19/2024 150/58 09/14/2024 127/62 09/12/2024 134/58 09/10/2024 105/52 09/06/2024 121/55 08/01/2024 198/73 07/16/2024 126/58 07/04/2024 143/75 06/06/2024 134/66 05/09/2024 167/76 04/11/2024 133/76 03/21/2024 122/78 COPD (chronic obstructive pulmonary disease) ([facility]) Assessment: Wears NC oxygen to 3L/min as tolerated with O2 sats with activity, following pulmonary, records requested CONCHA (obstructive sleep apnea) Assessment: c/w CPAP GERD (gastroesophageal reflux disease) Assessment: controlled on rx Diabetes mellitus, type 2 ([facility]) Assessment: IDDM and oral agent following endo at [place] Hemoglobin A1C (%) Date Value 05/03/2023 7.6 Elevated platelet count Assessment: hx Platelet Count Date Value Ref Range Status 09/26/2024 406 (H) 150 - 400 k/uL Final Anemia Assessment: Hemoglobin (g/dL) Date Value 09/26/2024 10.7 01/27/2021 13.8 Hematocrit (%) Date Value 09/26/2024 37.5 01/27/2021 41.8 WBC (k/uL) Date Value 09/26/2024 9.12 01/27/2021 10.39 Leukocytosis Assessment: hx WBC Date Value Ref Range Status 09/26/2024 9.12 3.70 - 11.00 k/uL Final Cancer of sigmoid colon ([facility]) Assessment: Underwent robotic laparoscopic sigmoid colectomy with colorectal anastomosis on 05/10/2023. 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 -Dexamethasone 8 mg PO weekly due to exacerbation of blood glucose at higher doses. Last OV below 09/26/24: Note Details Marijuana user Assessment: Uses marijuana gummies Discussed risks and strongly urged patient to quit as soon as possible. Hyponatremia Assessment: hx Sodium Date Value Ref Range Status 09/26/2024 137 136 - 144 mmol/L Final 08/29/2024 138 136 - 144 mmol/L Final 08/01/2024 139 136 - 144 mmol/L Final Obesity, Class III, BMI 40-49.9 (morbid obesity) ([facility]) Assessment: Body mass index is 45.71 kg/m . Iron malabsorption Assessment: following hematology, hx IV venofer History of gastritis Assessment: 11/2023 Underwent EGD which demonstrated severe erosive gastritis and 2 bleeding angiodysplastic lesions in the stomach which were treated with heater probe. He also had duodenitis which was biopsied. He was treated with pantoprazole 40 mg twice daily. Paroxysmal A-fib (HCC) Assessment: daily Eliquis, received instructions to hold 2 days, pt verbalized understanding. Currently wearing Zio patch for 2 weeks to determine burden of AF, following OSH cardiology ANESTHESIA FINDINGS: Intubation History: No history of difficult intubation Significant Anesthesia Considerations: none Airway History: No history of difficult airway Becker Activity Status Index: METS: Walk indoors, such as around the house (1.75 METs) Do light work around the house, such as dusting or washing dishes (2.70 METs) Take care of self; that is eating, dressing, bathing, using the toilet (2.75 METs) Walk a block or two on level ground (2.75 METs) DASI Score: 9.95 Patient denies any chest pain or undue shortness of breath with the above physical activity. Clinical Frailty Scale: 4. Apparently vulnerable STOP-Bang Score: Snores loudly Has been observed to stop breathing or choking/gasping during sleep Has or is being treated for high blood pressure BMI greater than 35 kg/m^2 Patient over 50 years old Has a large neck Male patient Denies feeling tired, fatigued, or sleepy during the daytime STOP-Bang Score: 7 [id number] Score: Age: 65-74 Sex: male CHF history: Yes Hypertension history: Yes Stroke/TIA/thromboembolism history: No Vascular disease history: No Diabetes history: Yes [id number] Score: 4 ARISCAT Score: Age: 51-80 Preoperative SpO2: 91-95% Respiratory infection in the last month: No Preoperative anemia: No Surgical incision: peripheral Duration of surgery: <2 hrs Emergency procedure: No ARISCAT Score: 11 I - PHYSICAL EVALUATION AIRWAY Patient intubated: No. Tracheostomy tube not present Mallampati: III. TM distance: >3 FB. Neck ROM: full ROM without neurological symptoms. Mouth opening: adequate. Short neck: no. Thick neck: yes Goodman present: yes Lip Bite Test: I Microretrognathia/Micronagthia/Rec essed Chin: No DENTAL Dental findings: teeth intact. Additional comments: +crowns/back. II - ANESTHESIA PLAN Anesthetic Plan: other Beta Malick Monitoring Plan Post Procedure Analgesic Plan Prepared for Surgery: optimally prepared for surgery, pending [see comment]. Records requested CONSULTS: Patient does not require consults for optimization at this time Planned Anesthetic: other anesthesia choice The Following Tests/Procedures Have Been Initiated: No orders of the defined types were placed in this encounter. REASON FOR VISIT: Cyn James JR is a 74 year old male who is scheduled for * No surgery found * at the request of Dr. Josephine Sutton for consultation. My final recommendation will be communicated back to the requesting physician by way of shared medical record or letter. Subjective The patient has the following: COVID-19 Immunization Status Current Care Gaps Covid-19 Vaccine ( season) Overdue since 12/25/2023 04/20/2021 Imm Admin: COVID-19 original vaccine, age 12+ yr, monovalent (PFIZER-BIONTECH - PURPLE TOP) 10/09/2020 Imm Admin: COVID-19 original vaccine, age 12+ yr, monovalent (PFIZER-BIONTECH - PURPLE TOP) 09/18/2020 Imm Admin: COVID-19 original vaccine, age 12+ yr, monovalent (PFIZER-BIONTECH - PURPLE TOP) Only the first 3 history entries have been loaded, but more history exists. CHIEF COMPLAINT: Pre-op exam HPI: Cyn James JR is a 74 year old seen for PAC due to scheduled above surgery because of colon CA screening. 07/16/24, Dr. Josephine Sutton CHIEF COMPLAINT: Consult (colonoscopy with history of colon cancer) HPI: The patient is a 74 year old male referred for endoscopy. Cyn notes history of colon cancer. 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 He had presented to [facility] and diagnosed with pneumonia and discharged on home supplemental oxygen. He denies blood in his stools. He denies chronic abdominal pain. He denies chest pain; denies history of OK. REVIEW OF SYSTEMS: General: No weight loss, malaise or fevers. 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 No neurological symptoms or problems. Respiratory: +former smoker 1ppd/30 years Positive for: COPD, home oxygen (with activity), obstructive sleep apnea and CPAP/BiPAP compliant. Patient is on 3L liter(s) of home O2. Negative for: asthma, current cough, pneumonia within 6 weeks, tobacco use and URI < 2 weeks. Cardiovascular: Positive for: anticoagulation therapy (Eliquis), atrial fibrillation, CHF, DVT/PE (july 2024), hyperlipidemia and hypertension Negative for: abdominal aortic aneurysm, AICD/PPM, angina, arrhythmia, CAD, chest pain, congenital heart defect, recent OK, murmur/valvular heart disease, PTCA, PVD, open heart surgery and valve surgery. GI: Positive for: GERD Negative for: abdominal pain, dysphagia, hepatitis, irritable bowel syndrome, inflammatory bowel disease, liver disease, nausea, pancreatitis, vomiting and ETOH >2 drinks/day. : Positive for: BPH (s/p TURP 2022). Negative for: urinary incontinence, nephrolithiasis, renal failure and urinary tract infection. Endocrine: Positive for: diabetes mellitus. Patient's diabetes mellitus is controlled by insulin and oral agents. Negative for: hypothyroidism. Hematology: Positive for: chronic anti-coagulation/platelet meds. Patient is on anti-coagulation/platelet medication(s): DOAC. Negative for: anemia, bruises/bleeds easily and transfusion of at least 4 units within 72 hours prior to surgery. Oncology: Smoldering mulitple myeloma, chemo, following hematology +Colon CA s/p resection 04/2023 Psych: No history of psychiatric symptoms or problems. Musculoskeletal: Negative for joint pain or swelling, back pain or muscle pain. Skin: +psoriasis, otc rx as needed Implanted Devices: No implanted devices. PAST MEDICAL HISTORY Diagnosis Date Anemia 05/03/2023 CHF (congestive heart failure) ([facility]) 05/03/2023 CKD (chronic kidney disease) stage 1, GFR 90 ml/min or greater Congestive heart failure (HCC) COPD (chronic obstructive pulmonary disease) (HCC) Diabetes mellitus (HCC) Diabetes mellitus, type 2 (HCC) 05/03/2023 Elevated platelet count 05/03/2023 GERD (gastroesophageal reflux disease) 05/03/2023 HLD (hyperlipidemia) 05/03/2023 HTN (hypertension) Iron deficiency anemia due to chronic blood loss 12/30/2022 Iron malabsorption (HCC) 12/30/2022 Leukocytosis 05/03/2023 Marijuana user 05/03/2023 Mixed hyperlipidemia Morbid obesity (HCC) 05/03/2023 Multiple myeloma not having achieved remission ([facility]) 09/24/2022 On home O2 05/03/2023 CONCHA (obstructive sleep apnea) 05/03/2023 Peripheral sensory neuropathy Psoriasis Red blood cell antibody positive 05/04/2023 Sleep apnea PAST SURGICAL HISTORY Procedure Laterality Date CATARACT EXTRACTION HX 04/25/2013 Left eye FOOT SURGERY HX Left PAST SURGICAL HISTORY OF 02/02/2023 TURP TRANSURETHRAL ELEC-SURG PROSTATECTOM FAMILY HISTORY Problem Relation Age of Onset Diabetes Father 86 d/t liver failure Breast Cancer Mother 65 Living Cancer Sister ? Lymphoma Diabetes Maternal Grandmother Diabetes Paternal Grandmother Anesthesia Problems No Family History Social History Tobacco Use Smoking status: Former Current packs/day: 0.00 Average packs/day: 1 pack/day for 32.0 years (32.0 ttl pk-yrs) Types: Cigarettes Start date: 05/22/1968 Quit date: 05/22/2000 Years since quittin.3 Smokeless tobacco: Never Vaping Use Vaping status: Never Used Substance Use Topics Alcohol use: Yes Comment: occ Drug use: Yes Types: Marijuana Comment: gummies- marijuana Prior to Admission medications as of 10/04/24 1407 Medication Sig Last Dose Taking acyclovir (ZOVIRAX) 400 mg tablet Take 1 tablet by mouth two times a day. Yes potassium chloride ER (KLOR-CON) 20 mEq tablet Take 1 tablet by mouth once daily. Yes tiZANidine (ZANAFLEX) 4 mg tablet Take 4 mg by mouth every 8 hours as needed. Yes apixaban (ELIQUIS) 5 mg tab(s) Take 5 mg by mouth two times a day. Yes insulin glargine,hum.rec.anlog (BASAGLAR KWIKPEN U-100 INSULIN SUBCUTANEOUS) Inject subcutaneously. 60 units with breakfast 60 units with dinner 42 units at bedtime Yes HUMALOG KWIKPEN INSULIN 100 unit/mL 28 units with breakfast, 34 units with lunch, 46 units with dinner. Yes calcium carbonate/vitamin D3 (CALCIUM + D ORAL) Take 1 tablet by mouth once daily. Yes iv contrast (will be provided with radiology test) CT Chest W -Inject, intravenously, once for 1 dose.No IV access, insert saline lock prior to the beginning of sedation, infusion, injection of imaging exam. Discontinue saline lock post exam. If Pt. has a central line or IVAD, may access for administration according to line specific nursing protocol. Once exam is complete flush line and de-access according to line specific nursing protocol in the CT contrast administration guidelines link. Yes iv contrast (will be provided with radiology test) CT ABD/PEL -Inject, intravenously, once for 1 dose.No IV access, insert saline lock prior to the beginning of sedation, infusion, injection of imaging exam. Discontinue saline lock post exam. If Pt. has a central line or IVAD, may access for administration according to line specific nursing protocol. Once exam is complete flush line and de-access according to line specific nursing protocol in the CT contrast administration guidelines link. Yes enteric contrast (will be provided with radiology test) For CT ABD/PEL W IVCON Routine order Administer, As Directed One Time Only, via Oral, Rectal, both Oral and Rectal, Enteric Tube, Stoma or Indwelling Catheter, Enteric Contrast as designated per enteric contrast guidelines Yes kixbtpoxkbg-wpbjzgkvj-zvxuetkw (TRELEGY ELLIPTA) 200-62.5-25 mcg inhalation powder Inhale 1 Puff as instructed once daily. Yes dexAMETHasone (DECADRON) 4 mg tablet Take 5 tablets with breakfast on day of each daratumuamb treatment. Yes ondansetron (ZOFRAN) 8 mg tablet Take 1 tablet by mouth every 8 hours as needed for nausea/vomiting. Yes dilTIAZem CD (CARDIZEM CD, CARTIA XT) 240 mg 24 hr capsule Take 1 capsule by mouth once daily. Yes empagliflozin (JARDIANCE) 10 mg tablet Take 10 mg by mouth once daily. Yes acetaminophen (TYLENOL EXTRA STRENGTH) 500 mg tablet Take 1,500 mg by mouth every 8 hours as needed. Yes torsemide (DEMADEX) 10 mg tablet Take 10 mg by mouth once daily as needed. Yes losartan (COZAAR) 50 mg tablet Take 50 mg by mouth once daily. Yes pantoprazole DR (PROTONIX) 40 mg tablet Take 40 mg by mouth once daily. Yes cholecalciferol (VITAMIN D-3) 50 mcg (2,000 unit) tablet Take 2,000 Units by mouth once daily. Yes OMEGA-3 FATTY ACIDS ORAL Take 1 tablet by mouth once daily. Yes magnesium oxide/magnesium (MAGNESIUM OXIDE-MG AA CHELATE ORAL) Take 250 mg by mouth once daily. Yes albuterol HFA (PROVENTIL HFA, VENTOLIN HFA) 90 mcg/actuation inhaler Inhale 1 Puff as instructed as needed. Yes metFORMIN (GLUCOPHAGE) 1,000 mg tablet Take 1,000 mg by mouth twice daily with meals. Yes atorvastatin (LIPITOR) 20 mg tablet Take 20 mg by mouth once daily. Yes No medication comments found. ALLERGIES Allergen Reactions Penicillins Rash, Swelling Objective PHYSICAL EXAM: General: alert and oriented (x3), healthy appearance and morbidly obese. Pertinent negatives noted - not distressed. With oxygen, antalgic gait. Skin: normal color, no rash or lesions. HEENT: EOM intact and pupils equal round. Pertinent negatives noted - no carotid bruit. Cardiovascular: regular rate and rhythm, normal S1 and S2, no rub, murmurs, or gallop. Respiratory: normal breath sounds, no wheezes or crackles. No chest wall deformity or tenderness. Abdomen: soft. Pertinent negatives noted - not tender. Extremities: no deformity, no edema or tenderness, no joint swelling or clubbing. Neurological: normal cognition and motor skills. PAIN ASSESSMENT: VITALS: BP 136/60 Pulse 54 Temp (Src) 98.8 (Temporal) Resp 18 Ht 5' 8 (1.73m) Wt 300 lb 9.6 oz (136.4kg) SpO2 91[on 3 liters O2 via NC]% BMI 45.72 kg/(m^2). Diagnostic tests reviewed for today's visit: Lab Value Units Date High Low HB 10.7 g/dL 09/26/2024 17.0 13.0 HCT 37.5 % 09/26/2024 51.0 39.0 WBC 9.12 k/uL 09/26/2024 11.00 3.70 PLT 406 k/uL 09/26/2024 400 150 NA 137 mmol/L 09/26/2024 144 136 K 4.0 mmol/L 09/26/2024 5.1 3.7 GLUC 181 mg/dL 09/26/2024 99 74 BUN 18 mg/dL 09/26/2024 24 9 CREAT 0.83 mg/dL 09/26/2024 1.22 0.73 PTSEC No results within date range. INR No results within date range. APTT No results within date range. ALT 15 U/L 09/26/2024 54 10 AST 19 U/L 09/26/2024 40 14 TBILI 0.7 mg/dL 09/26/2024 1.3 0.2 TSH No results within date range. Lab Value Units Date High Low HCGQT No results within date range. UHCG No results within date range. HCG, BODY* No results within date range. Lab Value Units Date High Low ABORHD No results within date range. ABSCREEN No results within date range. Hemoglobin A1C (%) Date Value 05/03/2023 7.6 Recent Results (from the past 8760 hours) ECG COMPLETE Collection Time: 11/09/23 10:23 AM Result Value Ventricular Rate 53 Atrial Rate 75 QRS Duration 120 QT Interval 448 QTC Calculation (Bazett) 420 Calculated R Rimrock -24 Calculated T Rimrock 199 Impression SINUS RHYTHM 2ND DEGREE AV BLOCK (MOBITZ I) WITH OCCASIONAL PREMATURE VENTRICULAR COMPLEXES Septal Infarct , AGE UNDETERMINED ST & INFERIOR T WAVE ABNORMALITY ST & ANTEROLATERAL T WAVE ABNORMALITY ABNORMAL ECG No results found for this or any previous visit (from the past 55698 hours). Instructions Given to Patient: Instructions located in the after visit summary. Patient given verbal and written preop instructions and voices comprehension and compliance. SIGNATURE: Nafisa Jose APRN.CNP PATIENT NAME: Cyn James JR DATE: October 04, 2024 TIME: 2:00 PM PAGER/CONTACT #: documented in this encounter [facility] 10-02-2024 Telephone encounter Note TELEPHONE ENCOUNTER Cyn James JR's medication list was reviewed and patient was noted to be taking Jardiance per patient chart. The patient was contacted via telephone and it was discussed that the patient hold their medication 3 day(s) prior to their date of surgery. Patient confirmed understanding. Patient was also informed to reach out to their surgeon's office if they have any further questions or concerns, patient indicated understanding. SIGNATURE: Rosalba Mix PA-C PATIENT NAME: Cyn James JR DATE: October 02, 2024 [facility] Work Phone: 10-02-2024 Miscellaneous Notes TELEPHONE ENCOUNTER Cyn James JR's medication list was reviewed and patient was noted to be taking Jardiance per patient chart. The patient was contacted via telephone and it was discussed that the patient hold their medication 3 day(s) prior to their date of surgery. Patient confirmed understanding. Patient was also informed to reach out to their surgeon's office if they have any further questions or concerns, patient indicated understanding. SIGNATURE: Rosalba Mix PA-C PATIENT NAME: Cyn James JR DATE: October 02, 2024 documented in this encounter [facility] 09-26-2024 Telephone encounter Note Checked out this patient of [facility] on 2nd floor and did not mean to fully check them out (it would not let me go back). - Continue zometa every 3 months-due this month. - Proceed as scheduled for darzalex today. - Follow up as scheduled. - Pt. aware to call office with any questions/concerns. This was the checkout note. Just wanted to make sure nothing was missed for this patient scheduling ann. Thank you! [facility] 09-26-2024 Miscellaneous Notes Checked out this patient of [facility] on 2nd floor and did not mean to fully check them out (it would not let me go back). - Continue zometa every 3 months-due this month. - Proceed as scheduled for darzalex today. - Follow up as scheduled. - Pt. aware to call office with any questions/concerns. This was the checkout note. Just wanted to make sure nothing was missed for this patient scheduling ann. Thank you! documented in this encounter [facility] 09-26-2024 Note HNO ID: [id number] Author: ZULAY RASMUSSEN RN Service: ? Author Type: Registered Nurse Type: Progress Notes Filed: 09/26/2024 13:18 Note Text: LAB and OV prior. Zulay Rasmussen RN [facility] 09-26-2024 History of Present illness Narrative LAB and OV prior. Zulay Rasmussen RN documented in this encounter [facility] 09-26-2024 Note [facility] 09-26-2024 History of Present illness Narrative Chief Complaint Patient presents with: Established Patient HPI: Cyn James JR is a 74 year old male who presents here today for evaluation for treatment today. Per Dr. Booker's previous note: H/o DM (peripheral sensory neuropathy) CKD stage I, psoriasis, mixed hyperlipidemia, HTN (essential). He had a several year history of diabetes and established with Dr. Vega about 3 years prior to initial consultation here. A chemistry panel revealed an increase in the globulin fraction and therefore a serum protein electrophoresis and immunofixation was obtained. The patient was found to have a low level IgA lambda monoclonal protein with the M spike quantified at 0.7 g/dL. Urine protein electrophoresis was noted to have an atypical gamma without any quantification. The patient's serum chemistries were significant for creatinine of 1.0 mg/dL and a calcium of 8.6 mg/dL. The total protein was 7.8 g/dL with an albumin of 3.2 g/dL and a globulin fraction of 4.6 g/dL yielding an A/G ratio 0.7. Hepatocellular enzymes were normal. Sister diagnosed with retro-orbital lymphoma. Patient had daughter who at age 24 in 2003 from acute leukemia. Previous therapy: 1) VRd. Began 10/28. Current therapy: 1) Dd. x1 cycle. He had onset of dyspnea during the first week. Went to the ED and had CTA of chest ruled out PE. Was using his home oxygen which previously he only used at night when he felt he needed it. Was told he has mild COPD and asthma on top of it. He went back to the ED at [facility] 12/16 for worsening dyspnea. He was diagnosed with acute on chronic heart failure. BNP was elevated on presentation. CTA of the chest showed no evidence of PE. He was noted to have new moderate bilateral effusions and bilateral compressive atelectasis. He has preserved ejection fraction. Initially treated with furosemide drip. 2D echo demonstrated an EF of 70%. Symptoms improved but he was noted to be anemic and had a positive stool sample for occult blood. Underwent EGD which demonstrated severe erosive gastritis and 2 bleeding angiodysplastic lesions in the stomach which were treated with heater probe. He also had duodenitis which was biopsied. He was treated with pantoprazole 40 mg twice daily. He was able to taper oxygen down to 2 L and was discharged in 12/20. Underwent robotic laparoscopic sigmoid colectomy with colorectal anastomosis on 05/10/2023. Pathology: A. Colon, sigmoid, robotic laparoscopic colectomy -Invasive adenocarcinoma, moderately differentiated, 8.2 cm, extending into pericolonic tissue (see comment) -Surgical margins negative for carcinoma and high-grade dysplasia -Negative for metastasis in thirty-four of thirty-four pericolic lymph nodes (0/34) B. Colon, distal donut, excision -Colonic mucosa with no significant pathologic abnormality Diagnosis Comment Microscopic examination demonstrates a moderately differentiated invasive adenocarcinoma, extending into pericolonic tissue. There is extensive abscess formation associated with gross/macroscopic tumor perforation and an exuberant pericolonic inflammatory response that is undermining the tumor. There is no tumor identified within the abscess cavity itself or at the site of perforation, consistent with a pT3 staging classification. A. Colon, sigmoid, robotic laparoscopic colectomy -Invasive adenocarcinoma, moderately differentiated, 8.2 cm, extending into pericolonic tissue (see comment) -Surgical margins negative for carcinoma and high-grade dysplasia -Negative for metastasis in thirty-four of thirty-four pericolic lymph nodes (0/34) B. Colon, distal donut, excision -Colonic mucosa with no significant pathologic abnormality Diagnosis Comment Microscopic examination demonstrates a moderately differentiated invasive adenocarcinoma, extending into pericolonic tissue. There is extensive abscess formation associated with gross/macroscopic tumor perforation and an exuberant pericolonic inflammatory response that is undermining the tumor. There is no tumor identified within the abscess cavity itself or at the site of perforation, consistent with a pT3 staging classification. COLON AND RECTUM: Resection, Including Transanal Disk Excision of Rectal Neoplasms 8th Edition - Protocol posted: 10/14/2021 COLON AND RECTUM: RESECTION - A SPECIMEN Procedure Sigmoidectomy TUMOR Tumor Site Sigmoid colon Histologic Type Adenocarcinoma Histologic Grade G2, moderately differentiated Tumor Size Greatest dimension (Centimeters): 8.2 cm Tumor Extent Invades through muscularis propria into the pericolonic or perirectal tissue Macroscopic Tumor Perforation Present Lymphovascular Invasion Not identified Perineural Invasion Not identified Treatment Effect No known presurgical therapy MARGINS Margin Status for Invasive Carcinoma All margins negative for invasive carcinoma Closest Margin(s) to Invasive Carcinoma mesorectal margin Distance from Invasive Carcinoma to Closest Margin 2.1 cm Margin Status for Non-Invasive Tumor All margins negative for high-grade dysplasia / intramucosal carcinoma and low-grade dysplasia REGIONAL LYMPH NODES Regional Lymph Node Status All regional lymph nodes negative for tumor Number of Lymph Nodes Examined 34 Tumor Deposits Not identified PATHOLOGIC STAGE CLASSIFICATION (pTNM, AJCC 8th Edition) Reporting of pT, pN, and (when applicable) pM categories is based on information available to the pathologist at the time the report is issued. As per the AJCC (Chapter 1, 8th Ed.) it is the managing physician s responsibility to establish the final pathologic stage based upon all pertinent information, including but potentially not limited to this pathology report. pT Category pT3 pN Category pN0 Results Mismatch Repair Protein Immunohistochemistry Results: MLH1: Normal/Intact Nuclear Expression PMS2: Normal/Intact Nuclear Expression MSH2: Normal/Intact Nuclear Expression MSH6: Normal/Intact Nuclear Expression Pt. completed 5 doses of iron sucrose 09/19/24. No new concerns today. Appetite:I don't eat as much as I used to. Wt. stable. Energy level:Eh. Denies fevers or recent illness. Mouth:denies sores Resp:denies cough or sob at rest, on O2@3L/nc, ruiz stable Cardiac:denies chest pain/palpitations h/o A. fib.-followed by cards-recently increased torsemide GI:occ. abd cramping, denies nausea/vomiting, occ. constipation-takes stool softeners prn :denies dysuria/hematuria Extrem:denies new pain Neuro:R hand tingling Skin:denies rashes Heme:denies obvious bleeding, although +stool cards, on eliquis The ROS is otherwise negative. Past medical history, appointments, medications, allergies reviewed. No changes. EXAM: BP 144/68 Pulse 67 Temp 36.8 C (98.3 F) (Temporal) Wt (!) 141.3 kg (311 lb 8.2 oz) SpO2 90% BMI 46.27 kg/m APPEARANCE Well appearing, alert, in no acute distress, well-hydrated, well nourished. HEART RRR with normal S1 and S2, no murmurs LUNG clear to auscultation, on O2/nc LYMPH NODES No cervical lymphadenopathy, No supraclavicular lymphadenopathy, and No axillary lymphadenopathy. ABDOMEN bowel sounds normoactive, soft, non-tender EXTREMITIES No edema NEURO Awake, alert and oriented x 3, Normal gait, and No involuntary motions. SKIN Skin color, texture, turgor normal, no suspicious rashes or lesions LABS: Latest Ref Rng 08/01/2024 08/29/2024 09/26/2024 WBC 3.70 - 11.00 k/uL 12.39 (H) 13.72 (H) 9.12 RBC 4.20 - 6.00 m/uL 4.63 4.68 4.79 Hemoglobin 13.0 - 17.0 g/dL 10.1 (L) 9.9 (L) 10.7 (L) Hematocrit 39.0 - 51.0 % 35.3 (L) 34.3 (L) 37.5 (L) MCV 80.0 - 100.0 fL 76.2 (L) 73.3 (L) 78.3 (L) MCH 26.0 - 34.0 pg 21.8 (L) 21.2 (L) 22.3 (L) MCHC 30.5 - 36.0 g/dL 28.6 (L) 28.9 (L) 28.5 (L) RDW-CV 11.5 - 15.0 % 17.8 (H) 17.7 (H) 24.3 (H) Platelet Count 150 - 400 k/uL 377 428 (H) 406 (H) MPV 9.0 - 12.7 fL 9.5 10.0 9.9 Neut% % 82.2 86.8 79.2 Abs Neut (ANC) 1.45 - 7.50 k/uL 10.19 (H) 11.89 (H) 7.22 Lymph% % 7.7 6.0 9.1 Abs Lymph 1.00 - 4.00 k/uL 0.95 (L) 0.83 (L) 0.83 (L) Radford% % 7.9 5.6 10.1 Abs Radford <0.87 k/uL 0.98 (H) 0.77 0.92 (H) Eosin% % 1.3 0.8 0.9 Abs Eosin <0.46 k/uL 0.16 0.11 0.08 Baso% % 0.4 0.4 0.5 Abs Baso <0.11 k/uL 0.05 0.06 0.05 Immature Gran % % 0.5 0.4 0.2 IMMATURE GRANS (ABS) <0.10 k/uL 0.06 0.06 <0.03 NRBC /100 WBC 0.0 0.0 0.0 Absolute nRBC <0.01 k/uL <0.01 <0.01 <0.01 DTYPE Auto Auto Auto CMP/LDH/MM labs: Pending ASSESSMENT/PLAN: 1. Multiple myeloma not having achieved remission (HCC) - ICD9: 203.00, ICD10: C90.00 (primary diagnosis) 2. Iron deficiency anemia due to chronic blood loss - ICD9: 280.0, ICD10: D50.[address] 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 -Initial bone marrow biopsy 20% PCs in the core specimen. -PET 2018 revealed no suspicious skeletal lesions. -PET 08/2022 indicated lesions defining multiple myeloma. -Bone marrow--still had about 20% PCs. -Standard risk disease by FISH panel 2018. -Significant baseline sensory neuropathy. -Myeloma frailty score is 1 (intermediate). -He was not a candidate for transplant given his other comorbid conditions and he said he wouldn't want to undergo ASCT if medically cleared to do so. -Had worsening neuropathy from bortezomib. -I reviewed the above lab work with him. Remains in CR (without bone marrow confirmation). -Tolerating treatment overall very well. -Reviewed PET from 06/2024--No osseous or other hypermetabolic lesions -He is very prone to lower respiratory tract infections. Underlying emphysema. Again reviewed trend in his IgG and explained that if level goes under 400 mg/dL then he would be a candidate for IVIG. Plan: -Okay for daratumumab today. -Continue acyclovir. -Continue holding lenalidomide, but will restart if progresses. -Dexamethasone 8 mg PO weekly due to exacerbation of blood glucose at higher doses.. -Every 3 month monitoring of serum monoclonal protein and light chains. -Continue PPI since continuing dexamethasone. -Continue monitoring counts monthly. -Continued follow-up with his PCP and refuse driver. -Zometa every 3 months. (C18.7) Cancer of sigmoid colon (HCC) (S31.109A) Open wound of abdominal wall, initial encounter Assessment: -pT3 N0 M0 G2 stage IIA adenocarcinoma of the sigmoid colon. -pMMR. -High risk feature of macroscopic tumor perforation. -Tumor budding not reported. -Reviewed CT results from 06/17/2024. ROSALIO. -PET scan was done yesterday. Report not yet available. -We discussed need for surveillance colonoscopy. Plan: -Scheduled for colonoscopy in September. -Every 6-month CT chest, abdomen pelvis for surveillance of colon cancer. TRUONG Assessment: -Low on iron again. -Check for occult blood. Plan: -Parenteral iron. -Will need repeat EGD if positive. - Overall tolerating treatment well. - Reviewed CBC with pt. - CMP/LDH/MM labs pending. - CT's every 6 months for surveillance of colon cancer. - Continue eliquis-No obvious bleeding although +stool cards. - Continue current medications. - Every 3 month monitoring of serum monoclonal protein and light chains. - Colonoscopy/EGD as scheduled on 10/17/24. - Continue zometa every 3 months-due this month. - Proceed as scheduled for darzalex today. - Follow up as scheduled. - Pt. aware to call office with any questions/concerns. The patient indicates understanding of these issues and agrees with the plan. All documentation from previous visit of 08/29/24-Dr. Booker was copied and pasted, documentation has been reviewed and edited as necessary for today's visit. Susan Agustin APRN.JANICE documented in this encounter [facility] 09-26-[address] Booker would like to move this patient to [facility] today. E-mail also sent regarding this. Please contact patient. Thank you. Cha Bautista RN [facility] 09-26-[address] Booker would like to move this patient to [facility]. E-mail also sent regarding this. Please contact patient. Thank you. Cha Bautista RN documented in this encounter [facility] 09-19-2024 Telephone encounter Note [email or web address] message sent. Tabby Camarillo LPN [facility] 09-19-2024 Miscellaneous Notes [employer] message sent. Tabby Camarillo LPN Can let him know that 2 out of the 3 stool test cards for occult blood were positive. I am going to ask Dr. Sutton if she can add an EGD to the colonoscopy already scheduled in September. Katey Booker DO documented in this encounter [facility] 09-19-2024 Telephone encounter Note Can let him know that 2 out of the 3 stool test cards for occult blood were positive. I am going to ask Dr. Sutton if she can add an EGD to the colonoscopy already scheduled in September. Katey Booker DO [facility] 09-10-2024 Telephone encounter Note Yes. Katey Booker DO [facility] 09-10-2024 Miscellaneous Notes Yes. Katey Booker DO OK for patient to be straightback on 10/24? Dr. Booker out of office. David has changed schedule- no longer working Tuesday and Wednesdays. documented in this encounter [facility] 09-10-2024 Telephone encounter Note OK for patient to be straightback on 10/24? Dr. Booker out of office. David has changed schedule- no longer working Tuesday and Wednesdays. [facility] Work Phone: 09-05-2024 Radiology Diagnostic study note [facility] 08-29-2024 Note [facility] 08-06-2024 Telephone encounter Note Spoke with pt. Informed will keep next injection as schelduled on 08/29/24. Pt. Voiced understanding. Rubi Harris LPN [facility] 08-06-2024 Miscellaneous Notes Spoke with pt. Informed will keep next injection as schelduled on 08/29/24. Pt. Voiced understanding. Rubi Harris LPN We can just keep his next injection scheduled as is on 08/29. Katey Booker DO DISCHARGE CALL BACK Today's date: August 06, 2024 Notified of Pt discharge by: Checked [facility] records Patient discharged on 08/03/24 from [facility] to Home Primary Cancer Diagnosis: MM/Colon Admitting Diagnosis: SOB Discharge Diagnosis (1) Hypoxia: Status: Acute Code(s): R09.02 - Hypoxemia (2) Acute on chronic heart failure with preserved ejection fraction: Status: Acute Code(s): I50.33 - Acute on chronic diastolic (congestive) heart failure (3) Leukocytosis: Status: Acute Code(s): D72.829 - Elevated white blood cell count, unspecified (4) Microcytic anemia: Status: Acute Code(s): D50.9 - Iron deficiency anemia, unspecified Discharge Summary/SBAR reviewed: Yes Handoff Discussed with Transitional Director Talent: N/A Psychosocial Risk Factors: None If patient discharged to SNF/Rehab Facility, phone call completed to reinforce discharge instructions and follow up: N/A Call Disposition: Called patient and spoke with patient Patient identified by name and date of . YES Patient with symptom issues: No Pain: No=0 (pain 0 on a scale of 0-10). Is patient followed by Palliative Medicine? No Palliative Medicine follow up: N/A Any new barriers to care identified? No Any new referrals needed? No Social Work Follow-Up visit scheduled? No Copied from [facility]: Hospital Course: Patient is a 74-year-old white male with a history of chronic hypoxic respiratory failure on 2 L of oxygen with ambulation who presented to the emergency department at [facility] on 08/01/2024 with a chief complaint of shortness of breath. Patient reported that since his episode of pneumonia he been wearing 2 L of oxygen continuously but then told me 3 L. He reported that if he was feeling short of breath he could bump it up to 3 L which he had been doing. He is on chemo for multiple myeloma and was at his oncologist office on the day of presentation when oxygen saturation was found to be 70% on his normal oxygen requirement. Patient denied weight gain, fever, chills, cough but chest x-ray on presentation showed fluffy bilateral infiltrates versus airspace disease. He does have a known history of heart failure with preserved ejection fraction. Vital signs on presentation showed temperature of 98.7, heart rate 73, respiratory rate 20, blood pressure was 161/64 pulse ox was 79% on 3 L nasal cannula so oxygen was increased to 6 L nasal cannula which improved his sats to about 90%. CBC showed a leukocytosis with a white count of 13.4, chronic stable anemia and he did have a left shift which appears to be chronic for him. Chemistry panel was overtly unremarkable other than hyperglycemia with a blood sugar of 168. Patient did indicate he just took his steroids for his chemo. His troponin was 39 and a BNP was 1468. Patient had no chest pain. He had a recent echocardiogram which showed an EF of 70%, mildly enlarged left atrium and mild mitral valve insufficiency with mild to moderate aortic valve stenosis with 1+ aortic valve insufficiency. That study was done in April 2024. We did obtain a CTA of his chest which showed no PE, and bilateral pleural effusions with compressive atelectasis. He was admitted and place on fluid restriction, sodium restriction, and IV diuretics. He quickly improved and we were able to wean his oxygen to 3 L in 24 hrs and then the following day we were able to wean him from 3 L to RA at rest and he needed 3 L with exertion. Ambulatory pulse ox did reveal that he will need 3 L with exertion only but no oxygen at rest. He is to continue to wear his PAP at night. We did discuss diet with regards to fluid intake and sodium restriction. We also discussed that he needs to weigh himself on a daily basis. He will maintain his baseline torsemide but we did instruct him to weigh himself in the morning without close on and if he gains more than 2 to 3 pounds in 24 hours he is to take an extra dose of his torsemide. He had some issues with compliance at the time of admission as he had family in town and there was only 1 bathroom to utilize so he not been taking his medication consistently. Given this, we did not increase his dose at the time of discharge. Does the patient need interventions no or same day appointment: No FOLLOW UP Patient scheduled for follow-up appointment within 5 business days of discharge? No, Other: patient has an OV schedule with PCP 08/14. Patient reminded of follow-up appointment with [facility] provider, Dr. Booker on 08/29: Yes Discussed: patient stated he missed his treatment last week and is asking if he should make up the missed treatment or be rescheduled. Patient stated he was instructed to limit his sodium intake to no more than 3 g daily and fluid intake 2 L a day. Patient will weigh himself daily. Patient was instructed to take an extra dose of torsemide if he has a 2-3 lb weight gain within 24 hours. PATIENT EDUCATION / REINFORCEMENT Patient verbalizes understanding of when to seek Medical Attention? YES Patient verbalizes understanding of after hours and weekend phone number? YES Cha Bautista RN documented in this encounter [facility] 08-06-2024 Telephone encounter Note We can just keep his next injection scheduled as is on 08/29. Katey Booker DO [facility] 08-06-2024 Telephone encounter Note DISCHARGE CALL BACK Today's date: August 06, 2024 Notified of Pt discharge by: Checked [facility] records Patient discharged on 08/03/24 from [facility] to Home Primary Cancer Diagnosis: MM/Colon Admitting Diagnosis: SOB Discharge Diagnosis (1) Hypoxia: Status: Acute Code(s): R09.02 - Hypoxemia (2) Acute on chronic heart failure with preserved ejection fraction: Status: Acute Code(s): I50.33 - Acute on chronic diastolic (congestive) heart failure (3) Leukocytosis: Status: Acute Code(s): D72.829 - Elevated white blood cell count, unspecified (4) Microcytic anemia: Status: Acute Code(s): D50.9 - Iron deficiency anemia, unspecified Discharge Summary/SBAR reviewed: Yes Handoff Discussed with Transitional Director Talent: N/A Psychosocial Risk Factors: None If patient discharged to SNF/Rehab Facility, phone call completed to reinforce discharge instructions and follow up: N/A Call Disposition: Called patient and spoke with patient Patient identified by name and date of . YES Patient with symptom issues: No Pain: No=0 (pain 0 on a scale of 0-10). Is patient followed by Palliative Medicine? No Palliative Medicine follow up: N/A Any new barriers to care identified? No Any new referrals needed? No Social Work Follow-Up visit scheduled? No Copied from [facility]: Hospital Course: Patient is a 74-year-old white male with a history of chronic hypoxic respiratory failure on 2 L of oxygen with ambulation who presented to the emergency department at [facility] on 08/01/2024 with a chief complaint of shortness of breath. Patient reported that since his episode of pneumonia he been wearing 2 L of oxygen continuously but then told me 3 L. He reported that if he was feeling short of breath he could bump it up to 3 L which he had been doing. He is on chemo for multiple myeloma and was at his oncologist office on the day of presentation when oxygen saturation was found to be 70% on his normal oxygen requirement. Patient denied weight gain, fever, chills, cough but chest x-ray on presentation showed fluffy bilateral infiltrates versus airspace disease. He does have a known history of heart failure with preserved ejection fraction. Vital signs on presentation showed temperature of 98.7, heart rate 73, respiratory rate 20, blood pressure was 161/64 pulse ox was 79% on 3 L nasal cannula so oxygen was increased to 6 L nasal cannula which improved his sats to about 90%. CBC showed a leukocytosis with a white count of 13.4, chronic stable anemia and he did have a left shift which appears to be chronic for him. Chemistry panel was overtly unremarkable other than hyperglycemia with a blood sugar of 168. Patient did indicate he just took his steroids for his chemo. His troponin was 39 and a BNP was 1468. Patient had no chest pain. He had a recent echocardiogram which showed an EF of 70%, mildly enlarged left atrium and mild mitral valve insufficiency with mild to moderate aortic valve stenosis with 1+ aortic valve insufficiency. That study was done in April 2024. We did obtain a CTA of his chest which showed no PE, and bilateral pleural effusions with compressive atelectasis. He was admitted and place on fluid restriction, sodium restriction, and IV diuretics. He quickly improved and we were able to wean his oxygen to 3 L in 24 hrs and then the following day we were able to wean him from 3 L to RA at rest and he needed 3 L with exertion. Ambulatory pulse ox did reveal that he will need 3 L with exertion only but no oxygen at rest. He is to continue to wear his PAP at night. We did discuss diet with regards to fluid intake and sodium restriction. We also discussed that he needs to weigh himself on a daily basis. He will maintain his baseline torsemide but we did instruct him to weigh himself in the morning without close on and if he gains more than 2 to 3 pounds in 24 hours he is to take an extra dose of his torsemide. He had some issues with compliance at the time of admission as he had family in town and there was only 1 bathroom to utilize so he not been taking his medication consistently. Given this, we did not increase his dose at the time of discharge. Does the patient need interventions no or same day appointment: No FOLLOW UP Patient scheduled for follow-up appointment within 5 business days of discharge? No, Other: patient has an OV schedule with PCP 08/14. Patient reminded of follow-up appointment with [facility] provider, Dr. Booker on 08/29: Yes Discussed: patient stated he missed his treatment last week and is asking if he should make up the missed treatment or be rescheduled. Patient stated he was instructed to limit his sodium intake to no more than 3 g daily and fluid intake 2 L a day. Patient will weigh himself daily. Patient was instructed to take an extra dose of torsemide if he has a 2-3 lb weight gain within 24 hours. PATIENT EDUCATION / REINFORCEMENT Patient verbalizes understanding of when to seek Medical Attention? YES Patient verbalizes understanding of after hours and weekend phone number? YES Cha Bautista RN [facility] 08-03-2024 Discharge summary Note Date/Time August 03, 2024 1:49pm [facility] Medical Records Department [address] [place] [id number] Discharge Summary 08/03/24 1211 MR#: [id number] Acct: [id number] Name: CYN JAMES JrShannon Rep #:[id number] : 1950 74 From: Fernanda Staples DO PCP: Dr. Krishna Mcdaniel, DO Status:AD M IN Location: [facility] [id number] Providers Date of Admission: 08/01/24 Date of Discharge: 08/03/24 Primary Care Physician: Dr. Krishna Mcdaniel DO Reason For Visit: CHF EXACERBATION Diagnosis Discharge Diagnosis (1) Hypoxia: Status: Acute Code(s): R09.02 - Hypoxemia (2) Acute on chronic heart failure with preserved ejection fraction: Status: Acute Code(s): I50.33 - Acute on chronic diastolic (congestive) heart failure (3) Leukocytosis: Status: Acute Code(s): D72.829 - Elevated white blood cell count, unspecified (4) Microcytic anemia: Status: Acute Code(s): D50.9 - Iron deficiency anemia, unspecified Medications at Discharge Home Medications atorvastatin 20 mg tablet (Lipitor) 20 mg PO QDAY cholesterol 08/19/17 magnesium 250 mg tablet 250 mg PO QDAY supplement 08/19/17 omega-3 fatty acids 1,000 mg capsule 1,000 mg PO QDAY supplement 08/19/17 cholecalciferol (vitamin D3) 50 mcg (2,000 unit) tablet 50 mcg PO DAILY supplement 05/14/22 handicap placard #1 ea 01/18/23 losartan 50 mg tablet 50 mg PO DAILY blood pressure #90 tabs 01/18/23 empagliflozin 10 mg tablet (Jardiance) 10 mg PO DAILY diabetes 02/23/23 daratumumab 20 mg/mL intravenous solution (Darzalex) 20 mg IV QMONTH chemo 12/06/23 potassium chloride 20 mEq tablet,extended release 20 meq PO DAILY supplimnet 12/06/23 acyclovir 400 mg tablet 400 mg PO BID infection 12/12/23 insulin aspart U-100 100 unit/mL (3 mL) subcutaneous pen (Novolog FlexPen U-100 Insulin aspart) 36 unit subcut QACLUNCH diabetes 12/12/23 insulin aspart U-100 100 unit/mL (3 mL) subcutaneous pen (Novolog FlexPen U-100 Insulin aspart) 54 unit subcut QACDINNER diabetes 12/12/23 fluticasone fur. 200 mcg-umeclid 62.5 mcg-vilant 25 mcg inhalat.powder (Trelegy Ellipta) 1 inh inhalation DAILY copd #90 days 02/09/24 insulin degludec 100 unit/mL subcutaneous solution (Tresiba U-100 Insulin) 60 unit subcut BREAKFAST diabetes 02/28/24 ondansetron HCl 8 mg tablet 8 mg PO Q8H PRN nausea and vomiting 02/28/24 insulin aspart U-100 100 unit/mL (3 mL) subcutaneous pen (Novolog FlexPen U-100 Insulin aspart) 22 unit subcut DAILY 05/17/24 insulin degludec 100 unit/mL (3 mL) subcutaneous pen (Tresiba FlexTouch U-100 insulin) 54 unit subcut DINNER 05/17/24 insulin degludec 100 unit/mL (3 mL) subcutaneous pen (Tresiba FlexTouch U-100 insulin) 60 unit subcut 1200 05/17/24 metformin 1,000 mg tablet 1,000 mg PO BIDAC diabetes 05/17/24 tizanidine 4 mg tablet 4 - 6 mg PO TID PRN muscle spasticity 05/17/24 zoledronic acid 4 mg/5 mL intravenous solution See Rx Instructions .Route .COMPLEX bones 06/01/24 dexamethasone 4 mg tablet 8 mg PO .COMPLEX steroid 06/07/24 apixaban 5 mg tablet (Eliquis) 5 mg PO BID blood thinner #180 tabs 06/19/24 torsemide 10 mg tablet 10 mg PO QAM chf #30 tabs 06/20/24 diltiazem HCl 240 mg capsule,extended release 24 hr 240 mg PO DAILY heart #90 caps 06/26/24 albuterol sulfate 90 mcg/actuation aerosol inhaler (Ventolin HFA) 1 puff inhalation Q4H PRN breathing #8.5 grams 06/28/24 pantoprazole 40 mg tablet,delayed release 40 mg PO QAM stomach #90 tabs 07/24/24 acetaminophen 500 mg capsule 500 mg PO Q6H PRN fever or pain 08/01/24 diphenhydramine HCl 25 mg capsule (Aler-Cap) 25 mg PO .COMPLEX 08/01/24 famotidine 20 mg tablet (Acid Controller) 20 mg PO PRN stomach 08/01/24 Hospital Course Operations None Procedures EKG and - (Chest x-ray/CTA chest) Summary of Care Provided Minutes Spent on Discharge: 38 Hospital Course: Patient is a 74-year-old white male with a history of chronic hypoxic respiratory failure on 2 L of oxygen with ambulation who presented to the emergency department at [facility] on 08/01/2024 with a chief complaint of shortness of breath. Patient reported that since his episode of pneumonia he been wearing 2 L of oxygen continuously but then told me 3 L. He reported that if he was feeling short of breath he could bump it up to 3 L whichhe had been doing. He is on chemo for multiple myeloma and was at his oncologist office on the day of presentation when oxygen saturation was found fred 70% on his normal oxygen requirement. Patient denied weight gain, fever, chills, cough but chest x-ray on presentation showed fluffy bilateral infiltrates versus airspace disease. He does have a known history of heart failure with preserved ejection fraction. Vital signs on presentation showed temperature of 98.7, heart rate 73, respiratory rate 20, blood pressure was 161/64 pulse ox was 79% on 3 L nasal cannula so oxygen was increased to 6 L nasal cannula which improved his sats to about 90%. CBC showed a leukocytosis with a white count of 13.4, chronic stable anemia and he did have a left shift which appears to be chronic for him. Chemistry panel was overtly unremarkable other than hyperglycemia with a blood sugar of 168. Patient did indicate he just took his steroids for his chemo. His troponin was 39 and a BNP was 1468. Patient had no chest pain. He had a recent echocardiogram which showed an EF of70%, mildly enlarged left atrium and mild mitral valve insufficiency with mild to moderate aortic valve stenosis with 1+ aortic valve insufficiency. That study was done in April 2024. We did obtain a CTA of his chest which showed no PE, and bilateral pleural effusions with compressive atelectasis. He was admitted and place on fluid restriction, sodium restriction, and IV diuretics. He quickly improved and we were able to wean his oxygen to 3 L in 24 hrs and then the following day we were able to wean him from 3 L to RA at rest and he needed 3 L with exertion. Ambulatory pulse ox did reveal that he will need 3 L with exertion only but no oxygen at rest. He is to continue to wear his PAP at night. We did discuss diet with regards to fluid intake and sodium restriction. We also discussed that he needs to weigh himself on a daily basis. He will maintain his baseline torsemide but we did instruct him to weigh himself in the morning without close on and if he gains more than 2 to 3 pounds in 24 hours he is to take an extra dose of his torsemide. He had some issues with compliance at the time of admission as he had family in town and there was only 1 bathroom to utilize so he not been taking his medication consistently. Given this, we did not increase his dose at the time of discharge. Discharge diagnoses: Acute on chronic hypoxic respiratory failure secondary to acute on chronic heartfailure with preserved ejection fraction Troponin elevation-secondary to acute decompensated heart failure Microcytic anemia-stable DM-2 History of multiple myeloma History of right-sided colon cancer Leukocytosis-patient was just given steroids for his chemo GERD PAF COPD CONCHA Morbid obesity Physical Exam Const alert, oriented x3, no apparent distress, no limitations and well nourished; Negative for average body habitus or healthy appearing Constitutional Narrative: Older, morbidly obese, white male, sitting up in a chair at the bedside, appearscomfortable, nontoxic, at bedside General Appearance: cooperative, comfortable, well kempt and well developed Exam Limitations: no limitations Nutritional Appearance: morbidly obese HEENT normocephalic, head/scalp atraumatic and moist oral mucous membranes HEENT Narrative: Mallampati 3, no thrush Eyes EOMs intact bilaterally and conjunctivae normal Eyes Narrative: no scleral icterus Neck no lymphadenopathy and supple Neck Narrative: neck is short and thick Resp normal respiratory effort, no retractions, no use of accessory muscles and clearto auscultation bilaterally Resp Narrative: Diminished but clear Auscultation: Negative for rales, rhonchi or wheezes Cardio regular rate, regular rhythm, S1 normal heart sound, S2 normal heart sound, no murmurs, no rub, no gallops and no clicks GI normal to inspection, nondistended, normoactive bowel sounds, soft to palpation and non-tender Extremity no clubbing, cyanosis or edema Extremity Narrative: Pedal and radial pulses are 2+ Skin skin turgor normal, no jaundice, no petechiae and no mottling Neuro oriented x3, CN's II-XII intact bilaterally, moves all extremities and no focal motor deficits Speech: speech normal Psych affect normal Psych Narrative: Very pleasant, interacts appropriately Weight / BMI Weight Weight: 135.896 kg Body Mass Index (BMI) 44.2 ABG / Lab / Microbiology Data 08/03/24 05:38 08/03/24 05:38 Laboratory: Laboratory Results - last 24 hr 08/02/24 16:50: POC Glucose 66 L 08/02/24 21:50: POC Glucose 174 H 08/03/24 05:38: WBC 14.0 H, RBC 4.42 L, Hgb 9.8 L, Hct 33.8 L, MCV 76.5 L, MCH 22.2 L, MCHC 29.0 L, RDW Std Deviation 48.4 H, RDW Coeff of Kavya 17.5 H, Plt Count 403, MPV 10.5, Sodium 140, Potassium 3.6, Chloride 98, Carbon Dioxide 27.7, Anion Gap 14, BUN 24 H, Creatinine 0.87, Estim Creat Clear Calc 102.93, Est GFR (MDRD) Non-Af 92, BUN/Creatinine Ratio 27.9 H, Glucose 133 H, Calcium 8.5, Phosphorus 5.1 H, Magnesium 2.2 08/03/24 08:51: POC Glucose 156 H 08/03/24 12:16: POC Glucose 154 H Microbiology: Microbiology 08/02/24 10:40 Mucosa - Nasopharyngeal Respiratory Panel (PCR) - Final 08/02/24 10:15 Mucosa - Nose Coronavirus COVID-19 PCR - Final D/C Instructions Discharge Diet: Low fat / Low cholesterol (Sodium restrictions 2 to 3 g daily/fluid restriction 2 L daily) and 1800 Calorie Control Diet Discharge Activity: Return to Normal Activity DC O2, CPAP, BIPAP Needs Home O2 Discharge instructions: Yes Type of respiratory needs?: Oxygen Oxygen frequency: At rest and With Ambulation Oxygen liters per minute during Ambulation: 3 DC home with Oxygen: Yes Home O2 MD Review: I have reviewed the oxygen testing, and the patient qualifies for home oxygen equipment and portability. The patient is mobile in the home and the community. Meaningful Use Info Meaningful Use Meaningful Use Diagnoses (Choose all that apply): None applicable Ischemic Stroke Statin Dosing Therapy Reference: STATIN DOSE THERAPY REFERENCE: * Patients > 75 years receive moderate or high dose statin therapy. * Patients 75 years or YOUNGER should receive HIGH intensity statin dose unless contraindicated. You will be required to document reason for non-treatment if statin daily dose does not meet guidelines. HIGH DOSE STATIN THERAPY DAILY Atorvastatin > than or = to 40 mg Rosuvastatin > than or = to 20 mg Amlodipine + Atorvastatin > than or = to 2.5/40 mg Ezetimibe + Simvastatin 10/80 mg Simvastatin 80mg Discharge Plan Admission Admit Date/Time: 08/01/24 14:07 Primary Reason for Your Visit: Shortness of breath Attending Provider: Fernanda Staples Primary Care Provider: Krishna Mcdaniel Consulting Providers: Janes Pennington Instructions Additional Instructions / Restrictions: 1. Please weigh yourself daily in the morning without close on on the same scale and keep track. If you gain more than 2 to 3 pounds in a 24-hour period please take an extra dose of your torsemide. 2. Please limit your salt intake to no more than 3 g daily 3. Please limit your fluid intake to about 2 L a day Discharge Orders/Prescriptions Prescriptions: Continued magnesium 250 mg tablet 250 mg PO QDAY omega-3 fatty acids 1,000 mg capsule 1,000 mg PO QDAY atorvastatin [Lipitor] 20 mg tablet 20 mg PO QDAY cholecalciferol (vitamin D3) 50 mcg (2,000 unit) tablet 50 mcg PO DAILY insulin aspart U-100 [Novolog FlexPen U-100 Insulin] 100 unit/mL (3 mL) insulin pen 36 unit subcut QACLUNCH insulin aspart U-100 [Novolog FlexPen U-100 Insulin] 100 unit/mL (3 mL) insulin pen 54 unit subcut QACDINNER potassium chloride 20 mEq tablet extended release 20 meq PO DAILY Darzalex 20 mg/mL solution 20 mg IV QMONTH Patient Comments: not sure of dosing Rx Instructions: intravenously every month; Given at [facility] once a month acyclovir 400 mg tablet 400 mg PO BID losartan 50 mg tablet 50 mg PO DAILY Qty: 90 2RF (DME) handicap placard See Rx Instructions .Route .MEDSUPPLY Qty: 1 0RF Rx Instructions: Duration for 5 years Jardiance 10 mg tablet 10 mg PO DAILY insulin degludec [Tresiba U-100 Insulin] 100 unit/mL solution 60 unit subcut BREAKFAST ondansetron HCl 8 mg tablet 8 mg PO Q8H PRN (Reason: nausea and vomiting) zoledronic acid 4 mg/5 mL solution See Rx Instructions .ROUTE .COMPLEX Rx Instructions: every 3 months; once monthly dexamethasone 4 mg tablet 8 mg PO .COMPLEX Patient Comments: [NO ORIGINAL SIG] Rx Instructions: 8 mg orally prior to chemo; insulin aspart U-100 [Novolog FlexPen U-100 Insulin] 100 unit/mL (3 mL) insulin pen 22 unit subcut DAILY Rx Instructions: am insulin degludec [Tresiba FlexTouch U-100] 100 unit/mL (3 mL) insulin pen 60 unit subcut 1200 insulin degludec [Tresiba FlexTouch U-100] 100 unit/mL (3 mL) insulin pen 54 unit subcut DINNER metformin 1,000 mg tablet 1,000 mg PO BIDAC tizanidine 4 mg tablet 4 - 6 mg PO TID PRN (Reason: muscle spasticity) Patient Comments: [NO ORIGINAL SIG] famotidine [Acid Controller] 20 mg tablet 20 mg PO PRN Patient Comments: takes prior to chemo diphenhydramine HCl [Aler-Cap] 25 mg capsule 25 mg PO .COMPLEX Rx Instructions: 25 mg orally prior to chemo; acetaminophen 500 mg capsule 500 mg PO Q6H PRN (Reason: fever or pain) Trelegy Ellipta 200-62.5-25 mcg blister with device 1 inh inhalation DAILY Qty: 90 3RF Eliquis 5 mg tablet 5 mg PO BID Qty: 180 3RF torsemide 10 mg tablet 10 mg PO QAM Qty: 30 2RF diltiazem HCl 240 mg capsule,extended release 24hr 240 mg PO DAILY Qty: 90 1RF albuterol sulfate [Ventolin HFA] 90 mcg/actuation HFA aerosol inhaler 1 puff INHALATION Q4H PRN (Reason: breathing) Qty: 8.5 11RF Rx Instructions: administer with spacer pantoprazole 40 mg tablet,delayed release (DR/EC) 40 mg PO QAM Qty: 90 1RF Referrals / Follow Up: Krishna Mcdaniel DO [Primary Care Provider] - In 1 Week Disposition Disposition (needs filled in before D/C Order can be placed): Home, Self Care Charges/Coding Visit Charges Inpatient E&M: 96453 Disch Hosp >30min 08/03/24 1349 <Electronically signed by Fernanda Staples DO> Cosigner Signature (if applicable): CC: Dr. Krishna Mcdaniel DO; Dr. Fernanda Staples DO~ Signed [facility] Work Phone: [phone] 704-876304-11-2025 Consult note Author Galina Johnson [facility] Note Date/Time August 03, 2024 3:5 6pm [facility] Medical Records Department [address] [place] [address] Counseling Note - Pharmacy 08/03/24 1342 MR#: [id number] Acct: [id number] Name: CYN JAMES Jr. Rep #:[id number] [facility] : 1950 74 From: Galina Johnson PCP: Dr. Krishna Mcdaniel, DO Status:AD M IN Y Location: [place] [id number] 1 Pharmacy [place] Med Reconciliation Pharmacy Service has performed discharge medication reconciliation for this patient. The patient's discharge medication list was reviewed for discrepancies and discrepancies were resolved. Medications at Discharge Home Medications atorvastatin 20 mg tablet (Lipitor) 20 mg PO QDAY cholesterol 08/19/17 magnesium 250 mg tablet 250 mg PO QDAY supplement 08/19/17 omega-3 fatty acids 1,000 mg capsule 1,000 mg PO QDAY supplement 08/19/17 cholecalciferol (vitamin D3) 50 mcg (2,000 unit) tablet 50 mcg PO DAILY supplement 05/14/22 handicap placard #1 ea 01/18/23 losartan 50 mg tablet 50 mg PO DAILY blood pressure #90 tabs 01/18/23 empagliflozin 10 mg tablet (Jardiance) 10 mg PO DAILY diabetes 02/23/23 daratumumab 20 mg/mL intravenous solution (Darzalex) 20 mg IV QMONTH chemo 12/06/23 potassium chloride 20 mEq tablet,extended release 20 meq PO DAILY supplimnet 12/06/23 acyclovir 400 mg tablet 400 mg PO BID infection 12/12/23 insulin aspart U-100 100 unit/mL (3 mL) subcutaneous pen (Novolog FlexPen U-100 Insulin aspart) 36 unit subcut QACLUNCH diabetes 12/12/23 insulin aspart U-100 100 unit/mL (3 mL) subcutaneous pen (Novolog FlexPen U-100 Insulin aspart) 54 unit subcut QACDINNER diabetes 12/12/23 fluticasone fur. 200 mcg-umeclid 62.5 mcg-vilant 25 mcg inhalat.powder (Trelegy Ellipta) 1 inh inhalation DAILY copd #90 days 02/09/24 insulin degludec 100 unit/mL subcutaneous solution (Tresiba U-100 Insulin) 60 unit subcut BREAKFAST diabetes 02/28/24 ondansetron HCl 8 mg tablet 8 mg PO Q8H PRN nausea and vomiting 02/28/24 insulin aspart U-100 100 unit/mL (3 mL) subcutaneous pen (Novolog FlexPen U-100 Insulin aspart) 22 unit subcut DAILY 05/17/24 insulin degludec 100 unit/mL (3 mL) subcutaneous pen (Tresiba FlexTouch U-100 insulin) 54 unit subcut DINNER 05/17/24 insulin degludec 100 unit/mL (3 mL) subcutaneous pen (Tresiba FlexTouch U-100 insulin) 60 unit subcut 1200 05/17/24 metformin 1,000 mg tablet 1,000 mg PO BIDAC diabetes 05/17/24 tizanidine 4 mg tablet 4 - 6 mg PO TID PRN muscle spasticity 05/17/24 zoledronic acid 4 mg/5 mL intravenous solution See Rx Instructions .Route .COMPLEX bones 06/01/24 dexamethasone 4 mg tablet 8 mg PO .COMPLEX steroid 06/07/24 apixaban 5 mg tablet (Eliquis) 5 mg PO BID blood thinner #180 tabs 06/19/24 torsemide 10 mg tablet 10 mg PO QAM chf #30 tabs 06/20/24 diltiazem HCl 240 mg capsule,extended release 24 hr 240 mg PO DAILY heart #90 caps 06/26/24 albuterol sulfate 90 mcg/actuation aerosol inhaler (Ventolin HFA) 1 puff inhalation Q4H PRN breathing #8.5 grams 06/28/24 pantoprazole 40 mg tablet,delayed release 40 mg PO QAM stomach #90 tabs 07/24/24 acetaminophen 500 mg capsule 500 mg PO Q6H PRN fever or pain 08/01/24 diphenhydramine HCl 25 mg capsule (Aler-Cap) 25 mg PO .COMPLEX 08/01/24 famotidine 20 mg tablet (Acid Controller) 20 mg PO PRN stomach 08/01/24 08/03/24 1342 <Electronically signed by Galina Johnson> Date _ Galina Johnson Cosigner Signature (if applicable): Date CC: ~ Signed [facility] Work Phone: 1(246) 329-707704-11-2025 [facility]04-10-2025 Progress note Author Fernanda Staples [facility] Note Date/Time August 02, 2024 8:0 8pm [facility] Medical Records Department [address] [place] [address] Progress Note - Hospitalist 08/02/24 0714 MR#: [id number] Acct: [id number] Name: CYN JAMES JrShannon Rep #:[id number] : 1950 74 From: Fernanda Staples DO PCP: Dr. Krishna Mcdaniel, DO Status:AD M IN Location: [place] [address] Reason for Visit Reason for Visit: Shortness of breath Subjective Subjective Patient states he is feeling a lot better than yesterday. Does wear 3 L of oxygen at baseline and is back to his baseline. Asks if we think we will be able to discharge him tomorrow and I did tell him that that would be likely as long as he continues to do well. We discussed diet, fluid intake and checking his daily weights with the option for increasing his diuretics. Objective Data Objective Data Vital Signs: Vital Signs Temp Pulse Resp BP Pulse Ox O2 Del Method O2 Flow Rate 98.3 F 64 17 136/52 H 96 Nasal Cannula 6 08/02/24 03:52 08/02/24 03:52 08/02/24 03:52 08/02/24 03:52 08/02/24 03:52 08/02/24 03:55 08/02/24 03:55 Oxygen Flow Rate (L/min) 6 Oxygen Delivery Method Nasal Cannula Weight: 131 kg Body Mass Index (BMI) 42.7 Intake & Output: Intake and Output for Last 24 Hours 07/31/24 08/01/24 08/02/24 23:59 23:59 23:59 Intake Total 450 / 450 800 / 800 Output Total 800 / 800 3000 / 3000 Balance -350 / -350 -2200 / -2200 Lab / Micro Data 08/02/24 07:10 08/02/24 07:10 Labs: Laboratory Results - last 24 hr 08/01/24 12:04: WBC 13.4 H, RBC 4.49 L, Hgb 10.1 L, Hct 34.5 L, MCV 76.8 L, MCH 22.5 L, MCHC 29.3 L, RDW Std Deviation 48.9 H, RDW Coeff of Kavya 17.8 H, Plt Count 395, MPV 10.2, Immature Gran % (Auto) 0.800, Neut % (Auto) 92.2 H, Lymph %(Auto) 3.3 L, [place] % (Auto) 2.5, Eos % (Auto) 0.7, Baso % (Auto) 0.5, Absolute Neuts (auto) 12.3 H, Absolute Lymphs (auto) 0.44 L, Nucleated RBC % 0, Sodium 139, Potassium 4.5, Chloride 104, Carbon Dioxide 24.3, Anion Gap 11, BUN 14, Creatinine 0.73, Est GFR (MDRD) Non-Af 97, BUN/Creatinine Ratio 19.1, Glucose 168 H, Calcium 8.8, Troponin T High Sens 39 H, NT pro BNP II 1468 H 08/01/24 18:04: POC Glucose 233 H 08/01/24 21:17: POC Glucose 265 H Radiography Diagnostic Testing: Radiology Impression Chest X-Ray 08/01/24 12:18 IMPRESSION: Suspicion of left lower lobe infiltrate. Mild cardiac enlargement. Blunting of the lateral costophrenic angles due to pleural fluid and or thickening. Reading Location: [place] [address] Rhythm Strip Rhythm Strip: A-fib Rate: 63 Ectopy: None Physical Exam Const alert, oriented x3, no apparent distress and well nourished; Negative for average body habitus or healthy appearing Constitutional Narrative: Older, morbidly obese, white male, sitting up in a chair at the bedside watchingtelevision, appears comfortable, nontoxic HEENT head/scalp atraumatic and moist oral mucous membranes Head and Scalp: normocephalic Resp normal respiratory effort, no retractions, no use of accessory muscles and clearto auscultation bilaterally Resp Narrative: Diminished but clear Auscultation: Negative for rales, rhonchi or wheezes Cardio regular rate, regular rhythm, S1 normal heart sound, S2 normal heart sound, no murmurs, no rub, no gallops and no clicks GI normal to inspection, nondistended, normoactive bowel sounds, soft to palpation and non-tender Extremity no clubbing, cyanosis or edema Extremity Narrative: Pedal and radial pulses are 2+ Neuro oriented x3, moves all extremities and no focal motor deficits Speech: speech normal Psych affect normal Psych Narrative: Very pleasant, interacts appropriately Assessment & Plan Assessment/Plan (1) Hypoxia: (2) Acute on chronic heart failure with preserved ejection fraction: (3) Leukocytosis: (4) Microcytic anemia: PLAN: Plan Acute on chronic hypoxic respiratory failure secondary to acute on chronic heartfailure with preserved ejection fraction -at baseline patient wears 3 L continuously- -Continue fluid restriction -Continue sodium restriction -We discussed pursuing daily weights at discharge -Patient is only on torsemide 10 mg a day and he is not taking it consistently at home due to some social issues currently -Will check ambulatory pulse ox prior to discharge however I do anticipate patient will be ready tomorrow -CT of the chest was performed patient does not have PE which I did not anticipate with him being on Eliquis and there is pleural effusions with no consolidation -COVID and respiratory viral panel are negative Microcytic anemia -No signs of bleeding -Patient is anticoagulated chronically -Will monitor -Repeat CBC in a.m. DM-2 -Will continue current insulin regimen -Continue Accu-Cheks as ordered -Continue Jardiance for heart failure and diabetes -Can restart metformin at discharge History of multiple myeloma -Chemotherapy was to be performed on the day of admission and currently is on hold until discharge -Patient plans to reschedule after discharge History of right-sided colon cancer -Had surgical care Leukocytosis -Suspect reactive -Patient with no signs of infectious etiology and clinically much better -Viral etiologies were ruled out GERD -Continue home PPI PAF -Continue home diltiazem -Continue home Eliquis COPD -Restart home inhalers -Does not seem to be an acute flare at this time CONCHA -Continue home CPAP at discharge -Patient declined CPAP while he is hospitalized Morbid obesity -BMI is 42.6 -Recommend weight loss -complicates treatment, prognosis, outcomes DVT prophylaxis -Continue apixaban CODE STATUS Full code is verified Charges/Coding Visit Charges Inpatient E&M: 62100 Subs Hosp L2 08/02/242007 <Electronically signed by Fernanda Staples DO> Cosigner Signature (if applicable): CC: ~ Signed [facility] Work Phone: [phone]) 132-534904-10-2025 Radiology Diagnostic study [facility]04-09-2025 History and physical note Author Janes Pennington [facility] Note Date/Time August 01, 2024 2:42 pm [facility] Medical Records Department [address] [place] [address] H&P Exam - Hospitalist 08/01/24 1424 MR#: [id number] Acct: [id number] Name: CYN JAMES Jr. Rep #:[id number] : 1950 74 From: Janes mcfarland MD PCP: Dr. Krishna Mcdaniel, DO Status:AD M IN Location: [facility] [id number] HPI - General General Date of Admission: 08/01/24 HPI Narrative CYN JAMES, is a 74 M who presents to the hospital from his oncologist office with acute on chronic hypoxic respiratory insufficiency. Since his episode of pneumonia in April he has been wearing 2 L of oxygen continuously. Though he was told that if he was feeling short of breath he could bump it up to 3 which is what has been wearing for the last couple of weeks because he did not see a reason to go back down. He receives monthly chemo infusions for his multiple myeloma and was at his oncologist office today when he was in the 70s on his normal oxygen requirement. He denies any weight gain, no fevers, no chills, no productive cough. Chest x-ray shows fluffy infiltrates and there was a concern for left lower lobe consolidation and he does have a leukocytosis of 13.4 but noother signs of pneumonia. His BNP elevated in the setting of his chronic diastolic CHF. He did have an echo back in April 2024 with an EF of 70% and mild to moderate aortic stenosis. He was given a dose of Lasix in the ER. He does state that he has not been taking his torsemide regularly because he has been watching his great grandkids and they only have 1 bathroom in the house, also while he does follow a low-sodium diet he has not been following any kind of fluid restriction. [facility] Medical History Hypoxia PAF (paroxysmal atrial fibrillation) Bilateral lower extremity edema Atrial fibrillation Pleural effusion, bilateral Colon cancer Wears hearing aid Wears glasses Cancer Alcohol use History of steroid therapy Insulin dependent diabetes mellitus Anemia High cholesterol Former smoker CPAP (continuous positive airway pressure) dependence Sleep apnea On home oxygen therapy Shortness of breath on exertion History of edema History of Holter monitoring History of echocardiogram History of stress test Cardiology follow-up encounter History of CHF (congestive heart failure) History of atrial fibrillation History of irregular heartbeat Rash Hx of multiple myeloma Multiple myeloma Type 2 diabetes mellitus History of left heart catheterization (LHC) (~01/27/11) Mixed hyperlipidemia Essential hypertension Smoldering multiple myeloma Measles Chicken pox Erectile dysfunction Palpitations Murmur Chest pain Abnormal electrocardiogram Atherosclerotic heart disease of [place] coronary artery without angina pectoris SOB (shortness of breath) COPD (chronic obstructive pulmonary disease) Obesity RUIZ (dyspnea on exertion) CONCHA (obstructive sleep apnea) Home Medications ?Medication ?Instructions ?Recorded ?Last Taken ?Type atorvastatin 20 mg tablet (Lipitor) 20 mg PO QDAY chol esterol 08/19/17 07/31/24 History magnesium 250 mg tablet 250 mg PO QDAY supplement 07/31/24 History omega-3 fatty acids 1,000 mg 1,000 mg PO QDAY suppleme nt 08/19/17 07/31/24 History capsule cholecalciferol (vitamin D3) 50 50 mcg PO DAILY supple ment 05/14/22 07/31/24 History mcg (2,000 unit) tablet handicap placard #1 ea 01/18/23 Unknown Rx losartan 50 mg tablet 50 mg PO DAILY #90 tabs 12/2507/31/24 Rx empagliflozin 10 mg tablet 10 mg PO DAILY 02/23/2312/17 History (Jardiance) daratumumab 20 mg/mL intravenous mg .Route QMONTH 11/2307/02/24 History solution (Darzalex) potassium chloride 20 mEq 20 meq PO DAILY 12/06/2312/17 History tablet,extended release acyclovir 400 mg tablet 400 mg PO BID 12/12/2307/31 History insulin aspart U-100 100 unit/mL 36 unit subcut QACLUN CH diabetes 12/12/23 07/31/24 History (3 mL) subcutaneous pen (Novolog FlexPen U-100 Insulin aspart) insulin aspart U-100 100 unit/mL 54 unit subcut QACDIN NER diabetes 12/12/23 07/31/24 History (3 mL) subcutaneous pen (Novolog FlexPen U-100 Insulin aspart) fluticasone fur. 200 mcg-umeclid 1 inh inhalation JUDIT Y #90 days 02/09/24 07/31/24 Rx 62.5 mcg-vilant 25 mcg inhalat.powder (Trelegy Ellipta) insulin degludec 100 unit/mL 60 unit subcut DAILY 09/1507/31/24 History subcutaneous solution (Tresiba U-100 Insulin) ondansetron HCl 8 mg tablet 8 mg PO Q8H PRN nausea and vomiting 02/28/24 08/01/24 History insulin aspart U-100 100 unit/mL 22 unit subcut DAILY 05/17/24 07/31/24 History (3 mL) subcutaneous pen (Novolog FlexPen U-100 Insulin aspart) insulin degludec 100 unit/mL (3 54 unit subcut DINNER 05/17/24 07/31/24 History mL) subcutaneous pen (Tresiba FlexTouch U-100 insulin) insulin degludec 100 unit/mL (3 60 unit subcut 1200 07/31/24 History mL) subcutaneous pen (Tresiba FlexTouch U-100 insulin) metformin 1,000 mg tablet 1,000 mg PO BIDAC 05/17/24 0 07/31/24 History tizanidine 4 mg tablet 4 - 6 mg PO TID PRN muscle 0 05/17/24 Unknown History spasticity zoledronic acid 4 mg/5 mL See Rx Instructions .Route . COMPLEX 06/01/24 06/25/24 History intravenous solution dexamethasone 4 mg tablet 8 mg PO .COMPLEX 06/07/24 History apixaban 5 mg tablet (Eliquis) 5 mg PO BID #180 tabs 0 06/19/24 07/31/24 Rx torsemide 10 mg tablet 10 mg PO QAM #30 tabs 07/31/24 Rx diltiazem HCl 240 mg 240 mg PO DAILY #90 caps 08/1707/31/24 Rx capsule,extended release 24 hr albuterol sulfate 90 mcg/actuation 1 puff inhalation Q 4H PRN 06/28/24 07/31/24 Rx aerosol inhaler (Ventolin HFA) breathing #8.5 grams pantoprazole 40 mg tablet,delayed 40 mg PO QAM #90 tab s 07/24/24 07/31/24 Rx release acetaminophen 500 mg capsule 500 mg PO Q6H PRN fever o r pain 08/01/24 08/01/24 History diphenhydramine HCl 25 mg capsule 25 mg PO .COMPLEX 08/01/24 History (Aler-Cap) famotidine 20 mg tablet (Acid 20 mg PO DAILY 08/01/24 08/01/24 History Controller) Allergy/AdvReac Type Severity Reaction Status Date / Time Penicillins Allergy Mild Rash Verified 08/01/24 11:42 Family History Father Myocardial infarction Mother Breast cancer Surgical History Status post recent transurethral resection of prostate (~02/02/23) Hx of bilateral cataract extraction Hx of esophagogastroduodenoscopy History of cataract extraction Bone spur removal Social History Smoking Status: Former smoker quit date: 04/25/02 pack-years: 31 alcohol intake: current alcohol intake frequency: holidays/special occasions only substance use type: does not use caffeine: Yes Type: coffee Number of servings: 5 ROS Constitutional Constitutional: Denies chills, fatigue, fever(s) or malaise Eyes Eyes: Denies blurry vision ENT HEENT: Denies headache(s) or nasal discharge Cardiovascular Cardiovascular: Reports edema; Denies chest pain, dyspnea on exertion, orthopneaor syncope Respiratory/Chest Respiratory/Chest: Reports shortness of breath at rest and shortness of breath with exertion; Denies cough Gastrointestinal Gastrointestinal: Denies constipation, diarrhea, nausea or vomiting Genitourinary Genitourinary: Denies dysuria Neurologic Neurologic: Denies focal weakness, numbness or tremor(s) Psychiatric Psychiatric: Denies anxiety or depression Vital Signs Vital Signs Vital Signs: 08/01/24 11:41 08/01/24 11:43 08/01/24 11:44 Temperature 98.7 F 98.7 F Temperature Source Oral Oral Pulse Rate 73 73 Respiratory Rate 20 H 20 H Respiratory Effort Respiratory Pattern Blood Pressure 161/64 H 161/64 H Blood Pressure Mean 96 96 Pulse Ox 79 90 79 Oxygen Delivery Method Nasal Cannula Nasal Cannula Nasal Cannula Oxygen Flow Rate (L/min) 3 6 3 08/01/24 12:05 08/01/24 12:08 08/01/24 12:09 Temperature Temperature Source Pulse Rate 71 Respiratory Rate 16 Respiratory Effort Short of Breath Respiratory Pattern Normal Tachypnea Blood Pressure Blood Pressure Mean Pulse Ox 90 Oxygen Delivery Method Nasal Cannula Oxygen Flow Rate (L/min) 6 08/01/24 12:44 08/01/24 12:44 08/01/24 14:00 Temperature 98.6 F 98.9 F Temperature Source Oral Oral Pulse Rate 96 89 89 Respiratory Rate 18 16 16 Respiratory Effort Respiratory Pattern Blood Pressure 144/49 H 120/86 H 156/75 H Blood Pressure Mean 80 97 102 Pulse Ox 93 98 94 Oxygen Delivery Method Room Air Room Air Nasal Cannula Oxygen Flow Rate (L/min) 2 Physical Exam Narrative General: Alert, Oriented x3, Cooperative, No apparent distress HEENT: Atraumatic, PERRLA, EOMI, Normocephalic Oral: Moist Mucosa Neck: Supple, No JVD Lungs: Diminished, Normal air movement, No rhonchi, No wheeze, No rales Cardiovascular: Regular rate, Regular Rhythm, Normal S1, Normal S2, No murmurs Abdomen: Soft, Non Tender, Non-Distended, No Hepato-splenomegaly Extremities: Edema, Capillary Refill Less than 3 Seconds Skin: No rashes, No breakdown Musculoskeletal: No Tenderness to Palpation of Joints or Extremities Neurological: No focal neurological deficits, Motor Exam 5/5 strength throughout, Sensory exam intact to light touch and pain Psych/Mental Status: Normal Affect, Appropriate Results Lab / Micro Data 08/01/24 12:04 08/01/24 12:04 Labs: Laboratory Results - last 24 hr 08/01/24 12:04: WBC 13.4 H, RBC 4.49 L, Hgb 10.1 L, Hct 34.5 L, MCV 76.8 L, MCH 22.5 L, MCHC 29.3 L, RDW Std Deviation 48.9 H, RDW Coeff of Kavya 17.8 H, Plt Count 395, MPV 10.2, Immature Gran % (Auto) 0.800, Neut % (Auto) 92.2 H, Lymph %(Auto) 3.3 L, [place] % (Auto) 2.5, Eos % (Auto) 0.7, Baso % (Auto) 0.5, Absolute Neuts (auto) 12.3 H, Absolute Lymphs (auto) 0.44 L, Nucleated RBC % 0, Sodium 139, Potassium 4.5, Chloride 104, Carbon Dioxide 24.3, Anion Gap 11, BUN 14, Creatinine 0.73, Est GFR (MDRD) Non-Af 97, BUN/Creatinine Ratio 19.1, Glucose 168 H, Calcium 8.8, Troponin T High Sens 39 H, NT pro BNP II 1468 H Rhythm Strip Rhythm Strip: A-fib Rate: 63 Ectopy: None Imaging Radiology Impression Chest X-Ray 08/01/24 12:18 IMPRESSION: Suspicion of left lower lobe infiltrate. Mild cardiac enlargement. Blunting of the lateral costophrenic angles due to pleural fluid and or thickening. Reading Location: [place] [address] Assessment & Plan Assessment/Plan (1) Hypoxia: PLAN: Plan 1. Acute on chronic hypoxic respiratory insufficiency secondary to acute on chronic diastolic CHF/A-fib/HLD/essential HTN/leukocytosis ? Will continue with diuresis ? Wean his oxygen as able back to his 2 L at baseline ? Will provide him with an 1800 cc fluid restriction and daily weights ? Unclear if he has pneumonia or not given his lack of symptoms other than his elevated white blood cell count, will monitor and if it worsens can start him onantibiotics then ? Can resume his Eliquis and his home blood pressure medications ? Continue with Lipitor 2. DM2 ? Unclear as to what his insulin regimen is based on fill dates in the computer ? Continue with this on his home insulin ? Accu-Cheks ACHS ? Will monitor and make adjustments as necessary ? Continue with Jardiance but hold metformin 3. Multiple myeloma with a history of right-sided colon cancer ? PET scan recently was negative for any metastatic illness and he states that he had significant lymph nodes removed during his partial colectomy which were negative ? He was supposed to get chemotherapy for his multiple myeloma today, this can be rescheduled 4. GERD ? Stable ? Continue with PPI DVT: Eliquis 75 minutes was spent on direct patient care, including documentation as well as chart review and collaboration with colleagues Charges/Coding Visit Charges Inpatient E&M: 66346 Init Hosp L3 08/01/24 1442 <Electronically signed by Janes Pennington MD> Cosigner Signature (if applicable): CC: Dr. Krishna Mcdaniel, DO; Dr. Janes Pennington MD~ Signed [facility] Work Phone: [phone] 485-288004-09-2025 Discharge summary Author George Jackson [facility] Note Date/Time August 01, 2024 1:24 pm [facility] Medical Records Department [address] [place] [address] Emergency Department Summary 08/01/24 MR#: [id number] Acct: [id number] Name: CYN JAMES Jr. Rep #:[id number] : 1950 74 From: George Jackson MD PCP: Dr. Krishna Mcdaniel DO Status:RE G ER Location: ED HPI History of Present Illness Chief Complaint: Shortness of Breath Informant: patient Onset/Context/Timing Onset: Days Context: gradual Timing: Continuous Quality: Positive for Dyspnea on exertion Current Severity: Mild Maximum Severity: Mild Worsened by: Exertion Relieved by: Oxygen Associated Symptoms Negative for cough Chest Pain: Positive for None Narrative Narrative: 74-year-old male complaining shortness of breath. Constantly on 3 L of oxygen at home. History of COPD, A-fib on Eliquis, anemia, CHF, diabetes and multiple myeloma. Today was seen by his oncologist and sent to the emergency department due to shortness of breath. He denies any chest pain. He denies any fever. Hedenies any new cough. PE Risk Factors: Positive for Cancer and Prior DVT or PE; Negative for Recent immobilization, Recent surgery or Recent travel Prior similar symptoms: Yes Recent Illness/Hospitalization: No PFSH PFSH Medical History Hypoxia PAF (paroxysmal atrial fibrillation) Bilateral lower extremity edema Atrial fibrillation Pleural effusion, bilateral Colon cancer Wears hearing aid Wears glasses Cancer Alcohol use History of steroid therapy Insulin dependent diabetes mellitus Anemia High cholesterol Former smoker CPAP (continuous positive airway pressure) dependence Sleep apnea On home oxygen therapy Shortness of breath on exertion History of edema History of Holter monitoring History of echocardiogram History of stress test Cardiology follow-up encounter History of CHF (congestive heart failure) History of atrial fibrillation History of irregular heartbeat Rash Hx of multiple myeloma Multiple myeloma Type 2 diabetes mellitus History of left heart catheterization (LHC) (~01/27/11) Mixed hyperlipidemia Essential hypertension Smoldering multiple myeloma Measles Chicken pox Erectile dysfunction Palpitations Murmur Chest pain Abnormal electrocardiogram Atherosclerotic heart disease of [place] coronary artery without angina pectoris SOB (shortness of breath) COPD (chronic obstructive pulmonary disease) Obesity RUIZ (dyspnea on exertion) CONCHA (obstructive sleep apnea) Home Medications ?Medication ?Instructions ?Recorded ?Last Taken ?Type atorvastatin 20 mg tablet (Lipitor) 20 mg PO QDAY chol esterol 08/19/17 07/31/24 History magnesium 250 mg tablet 250 mg PO QDAY supplement 07/31/24 History omega-3 fatty acids 1,000 mg 1,000 mg PO QDAY suppleme nt 08/19/17 07/31/24 History capsule cholecalciferol (vitamin D3) 50 50 mcg PO DAILY supple ment 05/14/22 07/31/24 History mcg (2,000 unit) tablet handicap placard #1 ea 01/18/23 Unknown Rx losartan 50 mg tablet 50 mg PO DAILY #90 tabs 12/2507/31/24 Rx empagliflozin 10 mg tablet 10 mg PO DAILY 02/23/2312/17 History (Jardiance) daratumumab 20 mg/mL intravenous mg .Route QMONTH 11/2307/02/24 History solution (Darzalex) potassium chloride 20 mEq 20 meq PO DAILY 12/06/2312/17 History tablet,extended release acyclovir 400 mg tablet 400 mg PO BID 12/12/2307/31 History insulin aspart U-100 100 unit/mL 36 unit subcut QACLUN CH diabetes 12/12/23 07/31/24 History (3 mL) subcutaneous pen (Novolog FlexPen U-100 Insulin aspart) insulin aspart U-100 100 unit/mL 54 unit subcut QACDIN NER diabetes 12/12/23 07/31/24 History (3 mL) subcutaneous pen (Novolog FlexPen U-100 Insulin aspart) fluticasone fur. 200 mcg-umeclid 1 inh inhalation JUDIT Y #90 days 02/09/24 07/31/24 Rx 62.5 mcg-vilant 25 mcg inhalat.powder (Trelegy Ellipta) insulin degludec 100 unit/mL 60 unit subcut DAILY 09/1507/31/24 History subcutaneous solution (Tresiba U-100 Insulin) ondansetron HCl 8 mg tablet 8 mg PO Q8H PRN nausea and vomiting 02/28/24 08/01/24 History insulin aspart U-100 100 unit/mL 22 unit subcut DAILY 05/17/24 07/31/24 History (3 mL) subcutaneous pen (Novolog FlexPen U-100 Insulin aspart) insulin degludec 100 unit/mL (3 54 unit subcut DINNER 05/17/24 07/31/24 History mL) subcutaneous pen (Tresiba FlexTouch U-100 insulin) insulin degludec 100 unit/mL (3 60 unit subcut 1200 07/31/24 History mL) subcutaneous pen (Tresiba FlexTouch U-100 insulin) metformin 1,000 mg tablet 1,000 mg PO BIDAC 05/17/24 0 07/31/24 History tizanidine 4 mg tablet 4 - 6 mg PO TID PRN muscle 0 05/17/24 Unknown History spasticity zoledronic acid 4 mg/5 mL See Rx Instructions .Route . COMPLEX 06/01/24 06/25/24 History intravenous solution dexamethasone 4 mg tablet 8 mg PO .COMPLEX 06/07/24 History apixaban 5 mg tablet (Eliquis) 5 mg PO BID #180 tabs 0 06/19/24 07/31/24 Rx torsemide 10 mg tablet 10 mg PO QAM #30 tabs 07/31/24 Rx diltiazem HCl 240 mg 240 mg PO DAILY #90 caps 08/1707/31/24 Rx capsule,extended release 24 hr albuterol sulfate 90 mcg/actuation 1 puff inhalation Q 4H PRN 06/28/24 07/31/24 Rx aerosol inhaler (Ventolin HFA) breathing #8.5 grams pantoprazole 40 mg tablet,delayed 40 mg PO QAM #90 tab s 07/24/24 07/31/24 Rx release acetaminophen 500 mg capsule 500 mg PO Q6H PRN fever o r pain 08/01/24 08/01/24 History diphenhydramine HCl 25 mg capsule 25 mg PO .COMPLEX 08/01/24 History (Aler-Cap) famotidine 20 mg tablet (Acid 20 mg PO DAILY 08/01/24 08/01/24 History Controller) Allergy/AdvReac Type Severity Reaction Status Date / Time Penicillins Allergy Mild Rash Verified 08/01/24 11:42 Family History Father Myocardial infarction Mother Breast cancer Surgical History Status post recent transurethral resection of prostate (~02/02/23) Hx of bilateral cataract extraction Hx of esophagogastroduodenoscopy History of cataract extraction Bone spur removal Social History Smoking Status: Former smoker quit date: 04/25/02 pack-years: 31 alcohol intake: current alcohol intake frequency: holidays/special occasions only substance use type: does not use caffeine: Yes Type: coffee Number of servings: 5 ROS ROS ED ROS Narrative Shortness of breath. Constitutional Constitutional ED: Denies chills or fever(s) Eyes Eyes: Denies blurry vision ENT ENT ED: Denies ear pain Cardiovascular Cardiovascular: Denies chest pain Respiratory/Chest Respiratory/Chest: Reports dyspnea and dyspnea on exertion Gastrointestinal Gastrointestinal: Denies abdominal pain Genitourinary Genitourinary ED: Denies dysuria or hematuria Musculoskeletal Musculoskeletal: Denies arthralgias Integumentary Denies abscess Neurologic Neurologic: Denies headache(s) Psychiatric Psychiatric: Denies anxiety or depression Endocrine Endocrinology: Denies cold intolerance Hematologic/Lymphatic Hematologic/Lymphatic: Denies easy bleeding, easy bruising or lymphadenopathy Allergic/Immunologic Allergic/Immunologic ED: Denies mouth swelling, tongue swelling or urticaria EXAM Physical Exam Narrative Exam Narrative: 74-year-old male vital signs are stable. On 3 L of oxygen his pulse ox is in the low 80s. He does not look septic or toxic. He is sitting upright in bed. present in the room. H EENT exam pupils round reactive light. Moist mucous membranes. Neck nontender no JVD. No lymphadenopathy. Lungs clear to auscultation bilaterally. Heart A-fib rate in the 70s. Abdomen soft nontender. Moving all 4 extremities. 5 out of 5 research chief engineer strength. Dorsi plantarflexion intact. Normal strength. Calves are nontender without edema or cords. Back nontender. Neurologically is awake alert answering questions and following commands. Const Vital Signs: 08/01/24 11:41 08/01/24 11:43 08/01/24 11:44 Temperature 98.7 F 98.7 F Temperature Source Oral Oral Pulse Rate 73 73 Respiratory Rate 20 H 20 H Respiratory Effort Respiratory Pattern Blood Pressure 161/64 H 161/64 H Blood Pressure Mean 96 96 Pulse Ox 79 90 79 Oxygen Delivery Method Nasal Cannula Nasal Cannula Nasal Cannula Oxygen Flow Rate (L/min) 3 6 3 08/01/24 12:05 08/01/24 12:08 08/01/24 12:09 Temperature Temperature Source Pulse Rate 71 Respiratory Rate 16 Respiratory Effort Short of Breath Respiratory Pattern Normal Tachypnea Blood Pressure Blood Pressure Mean Pulse Ox 90 Oxygen Delivery Method Nasal Cannula Oxygen Flow Rate (L/min) 6 08/01/24 12:44 08/01/24 12:44 Temperature 98.6 F Temperature Source Oral Pulse Rate 96 89 Respiratory Rate 18 16 Respiratory Effort Respiratory Pattern Blood Pressure 144/49 H 120/86 H Blood Pressure Mean 80 97 Pulse Ox 93 98 Oxygen Delivery Method Room Air Room Air Oxygen Flow Rate (L/min) Positive well nourished and well developed; Negative for cachectic, contracturesor unkempt General Appearance ED: well developed and NAD; Negative for unkempt, cachectic, contractures or pallor Nutritional Appearance: Negative for cachectic HEENT Reports moist mucous membranes atraumatic; Negative for trauma or tenderness Eyes PERRL and EOMs intact bilaterally Neck no lymphadenopathy, supple, no meningeal signs and no JVD General: Negative for tenderness Lymph Lymphatic: Negative for other Resp normal respiratory effort and clear to auscultation bilaterally Auscultation: Negative for rales, rhonchi, wheezes or diminished lung sounds Cardio regular rate, S1 normal heart sound, S2 normal heart sound and no murmurs; Negative for regular rhythm Cardio Narrative: A-fib rate in the 70s. Rhythm: abnormal rhythm GI non-tender, non-distended and no masses Palpation: soft; Negative for tender, guarding or rebound tenderness present Back/Spine no CVA tenderness and normal to inspection Extremity normal to inspection General Extremety ED: Negative for edema or tenderness General Extremity: Negative for edema Neuro oriented x3 and CN's II-XII intact bilaterally Sensorium / Orientation: alert, oriented to person, oriented to place and oriented to time; Negative for orientation impaired, confused, lethargic or stuporous Speech: speech normal Sensory Exam: sensory level loss detected Motor Exam: strength 5/5 throughout Psych mental status grossly normal Appearance: Negative for unkempt Attitude: No agitated Mood & Affect: Negative for depressed, anxious or tearful Thought Process: normal thought process Skin no wounds and skin turgor normal General Skin Exam: Negative for jaundice or pallor Lesions: no lesions Rashes: no rashes Trauma: Negative for abrasion, laceration or puncture MDM MDM MDM Narrative Medical decision making narrative: 74-year-old male with shortness of breath. Chronically on 3 L at home. No cough. No fever. No chest pain. Known history of A-fib on the blood thinner Eliquis. Known history of COPD currently not wheezing. Differential would include COPD rule pneumonia ruled CHF versus other etiologies. Cardiac workup with a BNP and a chest x-ray. [facility]. Repeat exam patient is doing well at 1:05 PM. Given his chest x-ray and his labs I think is secondary to pulmonary edema. Patient be given Lasix. Clinically he has pneumonia. No fever. No cough. I will discuss with the hospitalist about admission. History & Record Review Discussion w/independent historian: Patient and Family Additional record(s) reviewed:: Prior inpatient record, Prior outpatient record,Prior ED visit and Prior labs Lab Data Attestation: I reviewed the patient's lab results. Lab results narrative: CBC shows white count 13.4. H&H 10.1 and 34.5. Platelets 395. Chemistries show a gap of 11. Normal BUN of 14 creatinine 0.73. Glucose 168. Initial troponin 39. BT EDUCATIONAL PARAPROFESSIONAL is 1,468. Chest x-ray is consistent with CHF. Labs: Laboratory Results - last 24 hr 08/01/24 12:04 WBC 13.4 H RBC 4.49 L Hgb 10.1 L Hct 34.5 L MCV 76.8 L MCH 22.5 L MCHC 29.3 L RDW Std Deviation 48.9 H RDW Coeff of Kavya 17.8 H Plt Count 395 MPV 10.2 Immature Gran % (Auto) 0.800 Neut % (Auto) 92.2 H Lymph % (Auto) 3.3 L [place] % (Auto) 2.5 Eos % (Auto) 0.7 Baso % (Auto) 0.5 Absolute Neuts (auto) 12.3 H Absolute Lymphs (auto) 0.44 L Nucleated RBC % 0 Sodium 139 Potassium 4.5 Chloride 104 Carbon Dioxide 24.3 Anion Gap 11 BUN 14 Creatinine 0.73 Est GFR (MDRD) Non-Af 97 BUN/Creatinine Ratio 19.1 Glucose 168 H Calcium 8.8 Troponin T High Sens 39 H NT pro BNP II 1468 H Radiography Chest X-Ray - ED: 2 View, Read by ED Physician and Read by Radiologist Diagnostic Testing: Clinical Impression(s) from Imaging Studies Chest X-Ray 08/01/24 12:18 IMPRESSION: Suspicion of left lower lobe infiltrate. Mild cardiac enlargement. Blunting of the lateral costophrenic angles due to pleural fluid and or thickening. Reading Location: [place] [address] Chest x-ray, 2 views, AP and lateral, interpreted by myself and the radiologist. I see bilateral vascular congestion consistent with CHF and with his history. And exam. Radiologist is concerned for a possible left lower lobe infiltrate. Patient has no fever and no cough. Rhythm Strip Rhythm Strip: A-fib Rate: 63 Ectopy: None EKG Initial EKG: Attestation: I personally reviewed and interpreted this EKG as follows: Interpretation: Atrial Fibrillation Comments: A-fib rate is 63. No acute ST elevation or pression. Inverted T waves in V4 through V6. Discharge Plan Dx/Rx/DC Orders Clinical Impression: Acute dyspnea, Hypoxia, CHF (congestive heart failure), History of COPD, Elevated troponin, Chronic a-fib, Chronic anticoagulation, History of multiple myeloma Disposition Disposition: Acute Care Hospital [facility] What to do if you have Problems For any increased pain, shortness of breath, bleeding, nausea or vomiting, chestpain, or any unexpected problems, contact your Primary Care Provider. Call [facility] ([phone]) or report to the closest Emergency Room. Call 911 if necessary. 08/01/24 3007 <Electronically signed by George Jackson MD> Cosigner Signature (if applicable): CC: Dr. Krishna Mcdaniel, DO ~ Signed [facility] Work Phone: [phone] History and physical note [facility] Medical Records Department [address] [place] [address] H&P Exam - Hospitalist 08/01/24 1424 MR#: [id number] Acct: [id number] Name: CYN JAMES Jr. Rep #:[id number] : 1950 74 From: Janes mcfarland MD PCP: Dr. Krishna Mcdaniel, DO Status:AD M IN Location: [facility] [id number] HPI - General General Date of Admission: 08/01/24 HPI Narrative CYN JAMES, is a 74 M who presents to the hospital from his oncologist office with acute on chronichypoxic respiratory insufficiency. Since his episode of pneumonia in April he has been wearing 2 L of oxygen continuously. Though he was told that if he was feeling short of breath he could bump itup to 3 which is what has been wearing for the last couple of weeks because he did not see a reasonto go back down. He receives monthly chemo infusions for his multiple myeloma and was at his oncologist office today when he was in the 70s on his normal oxygen requirement. He denies any weight gain, no fevers, no chills, no productive cough. Chest x-ray shows fluffy infiltrates and there was a concern for left lower lobe consolidation and he does have a leukocytosis of 13.4 but noother signs ofpneumonia. His BNP elevated in the setting of his chronic diastolic CHF. He did have an echo back in April 2024 with an EF of 70% and mild to moderate aortic stenosis. He was given a dose of Lasix in the ER. He does state that he has not been taking his torsemide regularly because he has been watching his great grandkids and they only have 1 bathroom in the house, also while he does follow a low-sodium diet he has not been following any kind of fluid restriction. [facility] Medical History Hypoxia PAF (paroxysmal atrial fibrillation) Bilateral lower extremity edema Atrial fibrillation Pleural effusion, bilateral Colon cancer Wears hearing aid Wears glasses Cancer Alcohol use History of steroid therapy Insulin dependent diabetes mellitus Anemia High cholesterol Former smoker CPAP (continuous positive airway pressure) dependence Sleep apnea On home oxygen therapy Shortness of breath on exertion History of edema History of Holter monitoring History of echocardiogram History of stress test Cardiology follow-up encounter History of CHF (congestive heart failure) History of atrial fibrillation History of irregular heartbeat Rash Hx of multiple myeloma Multiple myeloma Type 2 diabetes mellitus History of left heart catheterization (LHC) (~01/27/11) Mixed hyperlipidemia Essential hypertension Smoldering multiple myeloma Measles Chicken pox Erectile dysfunction Palpitations Murmur Chest pain Abnormal electrocardiogram Atherosclerotic heart disease of [place] coronary artery without angina pectoris SOB (shortness of breath) COPD (chronic obstructive pulmonary disease) Obesity RUIZ (dyspnea on exertion) CONCHA (obstructive sleep apnea) Home Medications ?Medication ?Instructions ?Recorded ?Last Taken ?Type atorvastatin 20 mg tablet (Lipitor) 20 mg PO QDAY chol esterol 08/19/17 07/31/24 History magnesium 250 mg tablet 250 mg PO QDAY supplement 07/31/24 History omega-3 fatty acids 1,000 mg 1,000 mg PO QDAY suppleme nt 08/19/17 07/31/24 History capsule cholecalciferol (vitamin D3) 50 50 mcg PO DAILY supple ment 05/14/22 07/31/24 History mcg (2,000 unit) tablet handicap placard #1 ea 01/18/23 Unknown Rx losartan 50 mg tablet 50 mg PO DAILY #90 tabs 12/2507/31/24 Rx empagliflozin 10 mg tablet 10 mg PO DAILY 02/23/2312/17 History (Jardiance) daratumumab 20 mg/mL intravenous mg .Route QMONTH 11/2307/02/24 History solution (Darzalex) potassium chloride 20 mEq 20 meq PO DAILY 12/06/2312/17 History tablet,extended release acyclovir 400 mg tablet 400 mg PO BID 12/12/2307/31 History insulin aspart U-100 100 unit/mL 36 unit subcut QACLUN CH diabetes 12/12/23 07/31/24 History (3 mL) subcutaneous pen (Novolog FlexPen U-100 Insulin aspart) insulin aspart U-100 100 unit/mL 54 unit subcut QACDIN NER diabetes 12/12/23 07/31/24 History (3 mL) subcutaneous pen (Novolog FlexPen U-100 Insulin aspart) fluticasone fur. 200 mcg-umeclid 1 inh inhalation JUDIT Y #90 days 02/09/24 07/31/24 Rx 62.5 mcg-vilant 25 mcg inhalat.powder (Trelegy Ellipta) insulin degludec 100 unit/mL 60 unit subcut DAILY 09/1507/31/24 History subcutaneous solution (Tresiba U-100 Insulin) ondansetron HCl 8 mg tablet 8 mg PO Q8H PRN nausea and vomiting 02/28/24 08/01/24 History insulin aspart U-100 100 unit/mL 22 unit subcut DAILY 05/17/24 07/31/24 History (3 mL) subcutaneous pen (Novolog FlexPen U-100 Insulin aspart) insulin degludec 100 unit/mL (3 54 unit subcut DINNER 05/17/24 07/31/24 History mL) subcutaneous pen (Tresiba FlexTouch U-100 insulin) insulin degludec 100 unit/mL (3 60 unit subcut 1200 07/31/24 History mL) subcutaneous pen (Tresiba FlexTouch U-100 insulin) metformin 1,000 mg tablet 1,000 mg PO BIDAC 05/17/24 0 07/31/24 History tizanidine 4 mg tablet 4 - 6 mg PO TID PRN muscle 0 05/17/24 Unknown History spasticity zoledronic acid 4 mg/5 mL See Rx Instructions .Route . COMPLEX 06/01/24 06/25/24 History intravenous solution dexamethasone 4 mg tablet 8 mg PO .COMPLEX 06/07/24 History apixaban 5 mg tablet (Eliquis) 5 mg PO BID #180 tabs 0 06/19/24 07/31/24 Rx torsemide 10 mg tablet 10 mg PO QAM #30 tabs 07/31/24 Rx diltiazem HCl 240 mg 240 mg PO DAILY #90 caps 08/1707/31/24 Rx capsule,extended release 24 hr albuterol sulfate 90 mcg/actuation 1 puff inhalation Q 4H PRN 06/28/24 07/31/24 Rx aerosol inhaler (Ventolin HFA) breathing #8.5 grams pantoprazole 40 mg tablet,delayed 40 mg PO QAM #90 tab s 07/24/24 07/31/24 Rx release acetaminophen 500 mg capsule 500 mg PO Q6H PRN fever o r pain 08/01/24 08/01/24 History diphenhydramine HCl 25 mg capsule 25 mg PO .COMPLEX 08/01/24 History (Aler-Cap) famotidine 20 mg tablet (Acid 20 mg PO DAILY 08/01/24 08/01/24 History Controller) Allergy/AdvReac Type Severity Reaction Status Date / Time Penicillins Allergy Mild Rash Verified 08/01/24 11:42 Family History Father Myocardial infarction Mother Breast cancer Surgical History Status post recent transurethral resection of prostate (~02/02/23) Hx of bilateral cataract extraction Hx of esophagogastroduodenoscopy History of cataract extraction Bone spur removal Social History Smoking Status: Former smoker quit date: 04/25/02 pack-years: 31 alcohol intake: current alcohol intake frequency: holidays/special occasions only substance use type: does not use caffeine: Yes Type: coffee Number of servings: 5 ROS Constitutional Constitutional: Denies chills, fatigue, fever(s) or malaise Eyes Eyes: Denies blurry vision ENT HEENT: Denies headache(s) or nasal discharge Cardiovascular Cardiovascular: Reports edema; Denies chest pain, dyspnea on exertion, orthopneaor syncope Respiratory/Chest Respiratory/Chest: Reports shortness of breath at rest and shortness of breath with exertion; Denies cough Gastrointestinal Gastrointestinal: Denies constipation, diarrhea, nausea or vomiting Genitourinary Genitourinary: Denies dysuria Neurologic Neurologic: Denies focal weakness, numbness or tremor(s) Psychiatric Psychiatric: Denies anxiety or depression Vital Signs Vital Signs Vital Signs: 08/01/24 11:41 08/01/24 11:43 08/01/24 11:44 Temperature 98.7 F 98.7 F Temperature Source Oral Oral Pulse Rate 73 73 Respiratory Rate 20 H 20 H Respiratory Effort Respiratory Pattern Blood Pressure 161/64 H 161/64 H Blood Pressure Mean 96 96 Pulse Ox 79 90 79 Oxygen Delivery Method Nasal Cannula Nasal Cannula Nasal Cannula Oxygen Flow Rate (L/min) 3 6 3 08/01/24 12:05 08/01/24 12:08 08/01/24 12:09 Temperature Temperature Source Pulse Rate 71 Respiratory Rate 16 Respiratory Effort Short of Breath Respiratory Pattern Normal Tachypnea Blood Pressure Blood Pressure Mean Pulse Ox 90 Oxygen Delivery Method Nasal Cannula Oxygen Flow Rate (L/min) 6 08/01/24 12:44 08/01/24 12:44 08/01/24 14:00 Temperature 98.6 F 98.9 F Temperature Source Oral Oral Pulse Rate 96 89 89 Respiratory Rate 18 16 16 Respiratory Effort Respiratory Pattern Blood Pressure 144/49 H 120/86 H 156/75 H Blood Pressure Mean 80 97 102 Pulse Ox 93 98 94 Oxygen Delivery Method Room Air Room Air Nasal Cannula Oxygen Flow Rate (L/min) 2 Physical Exam Narrative General: Alert, Oriented x3, Cooperative, No apparent distress HEENT: Atraumatic, PERRLA, EOMI, Normocephalic Oral: Moist Mucosa Neck: Supple, No JVD Lungs: Diminished, Normal air movement, No rhonchi, No wheeze, No rales Cardiovascular: Regular rate, Regular Rhythm, Normal S1, Normal S2, No murmurs Abdomen: Soft, Non Tender, Non-Distended, No Hepato-splenomegaly Extremities: Edema, Capillary Refill Less than 3 Seconds Skin: No rashes, No breakdown Musculoskeletal: No Tenderness to Palpation of Joints or Extremities Neurological: No focal neurological deficits, Motor Exam 5/5 strength throughout, Sensory exam intact to light touch and pain Psych/Mental Status: Normal Affect, Appropriate Results Lab / Micro Data 08/01/24 12:04 08/01/24 12:04 Labs: Laboratory Results - last 24 hr 08/01/24 12:04: WBC 13.4 H, RBC 4.49 L, Hgb 10.1 L, Hct 34.5 L, MCV 76.8 L, MCH 22.5 L, MCHC 29.3 L, RDW Std Deviation 48.9 H, RDW Coeff of Kavya 17.8 H, Plt Count 395, MPV 10.2, Immature Gran % (Auto)0.800, Neut % (Auto) 92.2 H, Lymph %(Auto) 3.3 L, [place] % (Auto) 2.5, Eos % (Auto) 0.7, Baso % (Auto) 0.5, Absolute Neuts (auto) 12.3 H, Absolute Lymphs (auto) 0.44 L, Nucleated RBC % 0, Sodium 139, Potassium 4.5, Chloride 104, Carbon Dioxide 24.3, Anion Gap 11, BUN 14, Creatinine 0.73, Est GFR (MDRD) Non-Af 97, BUN/Creatinine Ratio 19.1, Glucose 168 H, Calcium 8.8, Troponin T High Sens 39 H, NT pro BNP II 1468 H Rhythm Strip Rhythm Strip: A-fib Rate: 63 Ectopy: None Imaging Radiology Impression Chest X-Ray 08/01/24 12:18 IMPRESSION: Suspicion of left lower lobe infiltrate. Mild cardiac enlargement. Blunting of the lateral costophrenic angles due to pleural fluid and or thickening. Reading Location: [place] [address] Assessment & Plan Assessment/Plan (1) Hypoxia: PLAN: Plan 1. Acute on chronic hypoxic respiratory insufficiency secondary to acute on chronic diastolic CHF/A-fib/HLD/essential HTN/leukocytosis ? Will continue with diuresis ? Wean his oxygen as able back to his 2 L at baseline ? Will provide him with an 1800 cc fluid restriction and daily weights ? Unclear if he has pneumonia or not given his lack of symptoms other than his elevated white bloodcell count, will monitor and if it worsens can start him onantibiotics then ? Can resume his Eliquis and his home blood pressure medications ? Continue with Lipitor 2. DM2 ? Unclear as to what his insulin regimen is based on fill dates in the computer ? Continue with this on his home insulin ? Accu-Cheks ACHS ? Will monitor and make adjustments as necessary ? Continue with Jardiance but hold metformin 3. Multiple myeloma with a history of right-sided colon cancer ? PET scan recently was negative for any metastatic illness and he states that he had significant lymph nodes removed during his partial colectomy which were negative ? He was supposed to get chemotherapy for his multiple myeloma today, this can be rescheduled 4. GERD ? Stable ? Continue with PPI DVT: Eliquis 75 minutes was spent on direct patient care, including documentation as well as chart review and collaboration with colleagues Charges/Coding Visit Charges Inpatient E&M: 78991 Init Hosp L3 08/01/24 1442 Cosigner Signature (if applicable): CC: Dr. Krishna Mcdaniel, DO; Dr. Janes Pennington MD~ Signed [facility]04-09-2025 Discharge summary Author George Jackson [facility] Note Date/Time August 01, 2024 1:24 pm [facility] Medical Records Department [address] [place] [address] Emergency Department Summary 08/01/24 MR#: [id number] Acct: [id number] Name: CYN JAMES Jr. Rep #:[id number] : 1950 74 From: George Jackson MD PCP: Dr. Krishna Mcdaniel DO Status:RE G ER Location: ED HPI History of Present Illness Chief Complaint: Shortness of Breath Informant: patient Onset/Context/Timing Onset: Days Context: gradual Timing: Continuous Quality: Positive for Dyspnea on exertion Current Severity: Mild Maximum Severity: Mild Worsened by: Exertion Relieved by: Oxygen Associated Symptoms Negative for cough Chest Pain: Positive for None Narrative Narrative: 74-year-old male complaining shortness of breath. Constantly on 3 L of oxygen at home. History of COPD, A-fib on Eliquis, anemia, CHF, diabetes and multiple myeloma. Today was seen by his oncologist and sent to the emergency department due to shortness of breath. He denies any chest pain. He denies any fever. Hedenies any new cough. PE Risk Factors: Positive for Cancer and Prior DVT or PE; Negative for Recent immobilization, Recent surgery or Recent travel Prior similar symptoms: Yes Recent Illness/Hospitalization: No PFSH PFSH Medical History Hypoxia PAF (paroxysmal atrial fibrillation) Bilateral lower extremity edema Atrial fibrillation Pleural effusion, bilateral Colon cancer Wears hearing aid Wears glasses Cancer Alcohol use History of steroid therapy Insulin dependent diabetes mellitus Anemia High cholesterol Former smoker CPAP (continuous positive airway pressure) dependence Sleep apnea On home oxygen therapy Shortness of breath on exertion History of edema History of Holter monitoring History of echocardiogram History of stress test Cardiology follow-up encounter History of CHF (congestive heart failure) History of atrial fibrillation History of irregular heartbeat Rash Hx of multiple myeloma Multiple myeloma Type 2 diabetes mellitus History of left heart catheterization (LHC) (~01/27/11) Mixed hyperlipidemia Essential hypertension Smoldering multiple myeloma Measles Chicken pox Erectile dysfunction Palpitations Murmur Chest pain Abnormal electrocardiogram Atherosclerotic heart disease of [place] coronary artery without angina pectoris SOB (shortness of breath) COPD (chronic obstructive pulmonary disease) Obesity RUIZ (dyspnea on exertion) CONCHA (obstructive sleep apnea) Home Medications ?Medication ?Instructions ?Recorded ?Last Taken ?Type atorvastatin 20 mg tablet (Lipitor) 20 mg PO QDAY chol esterol 08/19/17 07/31/24 History magnesium 250 mg tablet 250 mg PO QDAY supplement 07/31/24 History omega-3 fatty acids 1,000 mg 1,000 mg PO QDAY suppleme nt 08/19/17 07/31/24 History capsule cholecalciferol (vitamin D3) 50 50 mcg PO DAILY supple ment 05/14/22 07/31/24 History mcg (2,000 unit) tablet handicap placard #1 ea 01/18/23 Unknown Rx losartan 50 mg tablet 50 mg PO DAILY #90 tabs 12/2507/31/24 Rx empagliflozin 10 mg tablet 10 mg PO DAILY 02/23/2312/17 History (Jardiance) daratumumab 20 mg/mL intravenous mg .Route QMONTH 11/2307/02/24 History solution (Darzalex) potassium chloride 20 mEq 20 meq PO DAILY 12/06/2312/17 History tablet,extended release acyclovir 400 mg tablet 400 mg PO BID 12/12/2307/31 History insulin aspart U-100 100 unit/mL 36 unit subcut QACLUN CH diabetes 12/12/23 07/31/24 History (3 mL) subcutaneous pen (Novolog FlexPen U-100 Insulin aspart) insulin aspart U-100 100 unit/mL 54 unit subcut QACDIN NER diabetes 12/12/23 07/31/24 History (3 mL) subcutaneous pen (Novolog FlexPen U-100 Insulin aspart) fluticasone fur. 200 mcg-umeclid 1 inh inhalation JUDIT Y #90 days 02/09/24 07/31/24 Rx 62.5 mcg-vilant 25 mcg inhalat.powder (Trelegy Ellipta) insulin degludec 100 unit/mL 60 unit subcut DAILY 09/1507/31/24 History subcutaneous solution (Tresiba U-100 Insulin) ondansetron HCl 8 mg tablet 8 mg PO Q8H PRN nausea and vomiting 02/28/24 08/01/24 History insulin aspart U-100 100 unit/mL 22 unit subcut DAILY 05/17/24 07/31/24 History (3 mL) subcutaneous pen (Novolog FlexPen U-100 Insulin aspart) insulin degludec 100 unit/mL (3 54 unit subcut DINNER 05/17/24 07/31/24 History mL) subcutaneous pen (Tresiba FlexTouch U-100 insulin) insulin degludec 100 unit/mL (3 60 unit subcut 1200 07/31/24 History mL) subcutaneous pen (Tresiba FlexTouch U-100 insulin) metformin 1,000 mg tablet 1,000 mg PO BIDAC 05/17/24 0 07/31/24 History tizanidine 4 mg tablet 4 - 6 mg PO TID PRN muscle 0 05/17/24 Unknown History spasticity zoledronic acid 4 mg/5 mL See Rx Instructions .Route . COMPLEX 06/01/24 06/25/24 History intravenous solution dexamethasone 4 mg tablet 8 mg PO .COMPLEX 06/07/24 History apixaban 5 mg tablet (Eliquis) 5 mg PO BID #180 tabs 0 06/19/24 07/31/24 Rx torsemide 10 mg tablet 10 mg PO QAM #30 tabs 07/31/24 Rx diltiazem HCl 240 mg 240 mg PO DAILY #90 caps 08/1707/31/24 Rx capsule,extended release 24 hr albuterol sulfate 90 mcg/actuation 1 puff inhalation Q 4H PRN 06/28/24 07/31/24 Rx aerosol inhaler (Ventolin HFA) breathing #8.5 grams pantoprazole 40 mg tablet,delayed 40 mg PO QAM #90 tab s 07/24/24 07/31/24 Rx release acetaminophen 500 mg capsule 500 mg PO Q6H PRN fever o r pain 08/01/24 08/01/24 History diphenhydramine HCl 25 mg capsule 25 mg PO .COMPLEX 08/01/24 History (Aler-Cap) famotidine 20 mg tablet (Acid 20 mg PO DAILY 08/01/24 08/01/24 History Controller) Allergy/AdvReac Type Severity Reaction Status Date / Time Penicillins Allergy Mild Rash Verified 08/01/24 11:42 Family History Father Myocardial infarction Mother Breast cancer Surgical History Status post recent transurethral resection of prostate (~02/02/23) Hx of bilateral cataract extraction Hx of esophagogastroduodenoscopy History of cataract extraction Bone spur removal Social History Smoking Status: Former smoker quit date: 04/25/02 pack-years: 31 alcohol intake: current alcohol intake frequency: holidays/special occasions only substance use type: does not use caffeine: Yes Type: coffee Number of servings: 5 ROS ROS ED ROS Narrative Shortness of breath. Constitutional Constitutional ED: Denies chills or fever(s) Eyes Eyes: Denies blurry vision ENT ENT ED: Denies ear pain Cardiovascular Cardiovascular: Denies chest pain Respiratory/Chest Respiratory/Chest: Reports dyspnea and dyspnea on exertion Gastrointestinal Gastrointestinal: Denies abdominal pain Genitourinary Genitourinary ED: Denies dysuria or hematuria Musculoskeletal Musculoskeletal: Denies arthralgias Integumentary Denies abscess Neurologic Neurologic: Denies headache(s) Psychiatric Psychiatric: Denies anxiety or depression Endocrine Endocrinology: Denies cold intolerance Hematologic/Lymphatic Hematologic/Lymphatic: Denies easy bleeding, easy bruising or lymphadenopathy Allergic/Immunologic Allergic/Immunologic ED: Denies mouth swelling, tongue swelling or urticaria EXAM Physical Exam Narrative Exam Narrative: 74-year-old male vital signs are stable. On 3 L of oxygen his pulse ox is in the low 80s. He does not look septic or toxic. He is sitting upright in bed. present in the room. H EENT exam pupils round reactive light. Moist mucous membranes. Neck nontender no JVD. No lymphadenopathy. Lungs clear to auscultation bilaterally. Heart A-fib rate in the 70s. Abdomen soft nontender. Moving all 4 extremities. 5 out of 5 research chief engineer strength. Dorsi plantarflexion intact. Normal strength. Calves are nontender without edema or cords. Back nontender. Neurologically is awake alert answering questions and following commands. Const Vital Signs: 08/01/24 11:41 08/01/24 11:43 08/01/24 11:44 Temperature 98.7 F 98.7 F Temperature Source Oral Oral Pulse Rate 73 73 Respiratory Rate 20 H 20 H Respiratory Effort Respiratory Pattern Blood Pressure 161/64 H 161/64 H Blood Pressure Mean 96 96 Pulse Ox 79 90 79 Oxygen Delivery Method Nasal Cannula Nasal Cannula Nasal Cannula Oxygen Flow Rate (L/min) 3 6 3 08/01/24 12:05 08/01/24 12:08 08/01/24 12:09 Temperature Temperature Source Pulse Rate 71 Respiratory Rate 16 Respiratory Effort Short of Breath Respiratory Pattern Normal Tachypnea Blood Pressure Blood Pressure Mean Pulse Ox 90 Oxygen Delivery Method Nasal Cannula Oxygen Flow Rate (L/min) 6 08/01/24 12:44 08/01/24 12:44 Temperature 98.6 F Temperature Source Oral Pulse Rate 96 89 Respiratory Rate 18 16 Respiratory Effort Respiratory Pattern Blood Pressure 144/49 H 120/86 H Blood Pressure Mean 80 97 Pulse Ox 93 98 Oxygen Delivery Method Room Air Room Air Oxygen Flow Rate (L/min) Positive well nourished and well developed; Negative for cachectic, contracturesor unkempt General Appearance ED: well developed and NAD; Negative for unkempt, cachectic, contractures or pallor Nutritional Appearance: Negative for cachectic HEENT Reports moist mucous membranes atraumatic; Negative for trauma or tenderness Eyes PERRL and EOMs intact bilaterally Neck no lymphadenopathy, supple, no meningeal signs and no JVD General: Negative for tenderness Lymph Lymphatic: Negative for other Resp normal respiratory effort and clear to auscultation bilaterally Auscultation: Negative for rales, rhonchi, wheezes or diminished lung sounds Cardio regular rate, S1 normal heart sound, S2 normal heart sound and no murmurs; Negative for regular rhythm Cardio Narrative: A-fib rate in the 70s. Rhythm: abnormal rhythm GI non-tender, non-distended and no masses Palpation: soft; Negative for tender, guarding or rebound tenderness present Back/Spine no CVA tenderness and normal to inspection Extremity normal to inspection General Extremety ED: Negative for edema or tenderness General Extremity: Negative for edema Neuro oriented x3 and CN's II-XII intact bilaterally Sensorium / Orientation: alert, oriented to person, oriented to place and oriented to time; Negative for orientation impaired, confused, lethargic or stuporous Speech: speech normal Sensory Exam: sensory level loss detected Motor Exam: strength 5/5 throughout Psych mental status grossly normal Appearance: Negative for unkempt Attitude: No agitated Mood & Affect: Negative for depressed, anxious or tearful Thought Process: normal thought process Skin no wounds and skin turgor normal General Skin Exam: Negative for jaundice or pallor Lesions: no lesions Rashes: no rashes Trauma: Negative for abrasion, laceration or puncture MDM MDM MDM Narrative Medical decision making narrative: 74-year-old male with shortness of breath. Chronically on 3 L at home. No cough. No fever. No chest pain. Known history of A-fib on the blood thinner Eliquis. Known history of COPD currently not wheezing. Differential would include COPD rule pneumonia ruled CHF versus other etiologies. Cardiac workup with a BNP and a chest x-ray. [facility]. Repeat exam patient is doing well at 1:05 PM. Given his chest x-ray and his labs I think is secondary to pulmonary edema. Patient be given Lasix. Clinically he has pneumonia. No fever. No cough. I will discuss with the hospitalist about admission. History & Record Review Discussion w/independent historian: Patient and Family Additional record(s) reviewed:: Prior inpatient record, Prior outpatient record,Prior ED visit and Prior labs Lab Data Attestation: I reviewed the patient's lab results. Lab results narrative: CBC shows white count 13.4. H&H 10.1 and 34.5. Platelets 395. Chemistries show a gap of 11. Normal BUN of 14 creatinine 0.73. Glucose 168. Initial troponin 39. BT EDUCATIONAL PARAPROFESSIONAL is 1,468. Chest x-ray is consistent with CHF. Labs: Laboratory Results - last 24 hr 08/01/24 12:04 WBC 13.4 H RBC 4.49 L Hgb 10.1 L Hct 34.5 L MCV 76.8 L MCH 22.5 L MCHC 29.3 L RDW Std Deviation 48.9 H RDW Coeff of Kavya 17.8 H Plt Count 395 MPV 10.2 Immature Gran % (Auto) 0.800 Neut % (Auto) 92.2 H Lymph % (Auto) 3.3 L [place] % (Auto) 2.5 Eos % (Auto) 0.7 Baso % (Auto) 0.5 Absolute Neuts (auto) 12.3 H Absolute Lymphs (auto) 0.44 L Nucleated RBC % 0 Sodium 139 Potassium 4.5 Chloride 104 Carbon Dioxide 24.3 Anion Gap 11 BUN 14 Creatinine 0.73 Est GFR (MDRD) Non-Af 97 BUN/Creatinine Ratio 19.1 Glucose 168 H Calcium 8.8 Troponin T High Sens 39 H NT pro BNP II 1468 H Radiography Chest X-Ray - ED: 2 View, Read by ED Physician and Read by Radiologist Diagnostic Testing: Clinical Impression(s) from Imaging Studies Chest X-Ray 08/01/24 12:18 IMPRESSION: Suspicion of left lower lobe infiltrate. Mild cardiac enlargement. Blunting of the lateral costophrenic angles due to pleural fluid and or thickening. Reading Location: [place] [address] Chest x-ray, 2 views, AP and lateral, interpreted by myself and the radiologist. I see bilateral vascular congestion consistent with CHF and with his history. And exam. Radiologist is concerned for a possible left lower lobe infiltrate. Patient has no fever and no cough. Rhythm Strip Rhythm Strip: A-fib Rate: 63 Ectopy: None EKG Initial EKG: Attestation: I personally reviewed and interpreted this EKG as follows: Interpretation: Atrial Fibrillation Comments: A-fib rate is 63. No acute ST elevation or pression. Inverted T waves in V4 through V6. Discharge Plan Dx/Rx/DC Orders Clinical Impression: Acute dyspnea, Hypoxia, CHF (congestive heart failure), History of COPD, Elevated troponin, Chronic a-fib, Chronic anticoagulation, History of multiple myeloma Disposition Disposition: Acute Care [facility] What to do if you have Problems For any increased pain, shortness of breath, bleeding, nausea or vomiting, chestpain, or any unexpected problems, contact your Primary Care Provider. Call [facility] ([phone]) or report to the closest Emergency Room. Call 911 if necessary. 08/01/24 1324 <Electronically signed by George Jackson MD> Cosigner Signature (if applicable): CC: Dr. Krishna Mcdaniel, DO ~ Signed [facility] Work Phone: [phone] Discharge summary [facility] Medical Records Department [address] [place] [address] Emergency Department Summary 08/01/24 MR#: [id number] Acct: [id number] Name: CYN JAMES Jr. Rep #:[id number] : 1950 74 From: George Jackson MD PCP: Dr. Krishna Mcdaniel, DO Status:RE G ER Location: ED HPI History of Present Illness Chief Complaint: Shortness of Breath Informant: patient Onset/Context/Timing Onset: Days Context: gradual Timing: Continuous Quality: Positive for Dyspnea on exertion Current Severity: Mild Maximum Severity: Mild Worsened by: Exertion Relieved by: Oxygen Associated Symptoms Negative for cough Chest Pain: Positive for None Narrative Narrative: 74-year-old male complaining shortness of breath. Constantly on 3 L of oxygen at home. History of COPD, A-fib on Eliquis, anemia, CHF, diabetes and multiple myeloma. Today was seen by his oncologist and sent to the emergency department due to shortness of breath. He denies any chest pain. He deniesany fever. Hedenies any new cough. PE Risk Factors: Positive for Cancer and Prior DVT or PE; Negative for Recent immobilization, Recent surgery or Recent travel Prior similar symptoms: Yes Recent Illness/Hospitalization: No PFSH PFSH Medical History Hypoxia PAF (paroxysmal atrial fibrillation) Bilateral lower extremity edema Atrial fibrillation Pleural effusion, bilateral Colon cancer Wears hearing aid Wears glasses Cancer Alcohol use History of steroid therapy Insulin dependent diabetes mellitus Anemia High cholesterol Former smoker CPAP (continuous positive airway pressure) dependence Sleep apnea On home oxygen therapy Shortness of breath on exertion History of edema History of Holter monitoring History of echocardiogram History of stress test Cardiology follow-up encounter History of CHF (congestive heart failure) History of atrial fibrillation History of irregular heartbeat Rash Hx of multiple myeloma Multiple myeloma Type 2 diabetes mellitus History of left heart catheterization (LHC) (~01/27/11) Mixed hyperlipidemia Essential hypertension Smoldering multiple myeloma Measles Chicken pox Erectile dysfunction Palpitations Murmur Chest pain Abnormal electrocardiogram Atherosclerotic heart disease of [place] coronary artery without angina pectoris SOB (shortness of breath) COPD (chronic obstructive pulmonary disease) Obesity RUIZ (dyspnea on exertion) CONCHA (obstructive sleep apnea) Home Medications ?Medication ?Instructions ?Recorded ?Last Taken ?Type atorvastatin 20 mg tablet (Lipitor) 20 mg PO QDAY chol esterol 08/19/17 07/31/24 History magnesium 250 mg tablet 250 mg PO QDAY supplement 07/31/24 History omega-3 fatty acids 1,000 mg 1,000 mg PO QDAY suppleme nt 08/19/17 07/31/24 History capsule cholecalciferol (vitamin D3) 50 50 mcg PO DAILY supple ment 05/14/22 07/31/24 History mcg (2,000 unit) tablet handicap placard #1 ea 01/18/23 Unknown Rx losartan 50 mg tablet 50 mg PO DAILY #90 tabs 12/2507/31/24 Rx empagliflozin 10 mg tablet 10 mg PO DAILY 02/23/2312/17 History (Jardiance) daratumumab 20 mg/mL intravenous mg .Route QMONTH 11/2307/02/24 History solution (Darzalex) potassium chloride 20 mEq 20 meq PO DAILY 12/06/2312/17 History tablet,extended release acyclovir 400 mg tablet 400 mg PO BID 12/12/2307/31 History insulin aspart U-100 100 unit/mL 36 unit subcut QACLUN CH diabetes 12/12/23 07/31/24 History (3 mL) subcutaneous pen (Novolog FlexPen U-100 Insulin aspart) insulin aspart U-100 100 unit/mL 54 unit subcut QACDIN NER diabetes 12/12/23 07/31/24 History (3 mL) subcutaneous pen (Novolog FlexPen U-100 Insulin aspart) fluticasone fur. 200 mcg-umeclid 1 inh inhalation JUDIT Y #90 days 02/09/24 07/31/24 Rx 62.5 mcg-vilant 25 mcg inhalat.powder (Trelegy Ellipta) insulin degludec 100 unit/mL 60 unit subcut DAILY 09/1507/31/24 History subcutaneous solution (Tresiba U-100 Insulin) ondansetron HCl 8 mg tablet 8 mg PO Q8H PRN nausea and vomiting 02/28/24 08/01/24 History insulin aspart U-100 100 unit/mL 22 unit subcut DAILY 05/17/24 07/31/24 History (3 mL) subcutaneous pen (Novolog FlexPen U-100 Insulin aspart) insulin degludec 100 unit/mL (3 54 unit subcut DINNER 05/17/24 07/31/24 History mL) subcutaneous pen (Tresiba FlexTouch U-100 insulin) insulin degludec 100 unit/mL (3 60 unit subcut 1200 07/31/24 History mL) subcutaneous pen (Tresiba FlexTouch U-100 insulin) metformin 1,000 mg tablet 1,000 mg PO BIDAC 05/17/24 0 07/31/24 History tizanidine 4 mg tablet 4 - 6 mg PO TID PRN muscle 0 05/17/24 Unknown History spasticity zoledronic acid 4 mg/5 mL See Rx Instructions .Route . COMPLEX 06/01/24 06/25/24 History intravenous solution dexamethasone 4 mg tablet 8 mg PO .COMPLEX 06/07/24 History apixaban 5 mg tablet (Eliquis) 5 mg PO BID #180 tabs 0 06/19/24 07/31/24 Rx torsemide 10 mg tablet 10 mg PO QAM #30 tabs 07/31/24 Rx diltiazem HCl 240 mg 240 mg PO DAILY #90 caps 08/1707/31/24 Rx capsule,extended release 24 hr albuterol sulfate 90 mcg/actuation 1 puff inhalation Q 4H PRN 06/28/24 07/31/24 Rx aerosol inhaler (Ventolin HFA) breathing #8.5 grams pantoprazole 40 mg tablet,delayed 40 mg PO QAM #90 tab s 07/24/24 07/31/24 Rx release acetaminophen 500 mg capsule 500 mg PO Q6H PRN fever o r pain 08/01/24 08/01/24 History diphenhydramine HCl 25 mg capsule 25 mg PO .COMPLEX 08/01/24 History (Aler-Cap) famotidine 20 mg tablet (Acid 20 mg PO DAILY 08/01/24 08/01/24 History Controller) Allergy/AdvReac Type Severity Reaction Status Date / Time Penicillins Allergy Mild Rash Verified 08/01/24 11:42 Family History Father Myocardial infarction Mother Breast cancer Surgical History Status post recent transurethral resection of prostate (~02/02/23) Hx of bilateral cataract extraction Hx of esophagogastroduodenoscopy History of cataract extraction Bone spur removal Social History Smoking Status: Former smoker quit date: 04/25/02 pack-years: 31 alcohol intake: current alcohol intake frequency: holidays/special occasions only substance use type: does not use caffeine: Yes Type: coffee Number of servings: 5 ROS ROS ED ROS Narrative Shortness of breath. Constitutional Constitutional ED: Denies chills or fever(s) Eyes Eyes: Denies blurry vision ENT ENT ED: Denies ear pain Cardiovascular Cardiovascular: Denies chest pain Respiratory/Chest Respiratory/Chest: Reports dyspnea and dyspnea on exertion Gastrointestinal Gastrointestinal: Denies abdominal pain Genitourinary Genitourinary ED: Denies dysuria or hematuria Musculoskeletal Musculoskeletal: Denies arthralgias Integumentary Denies abscess Neurologic Neurologic: Denies headache(s) Psychiatric Psychiatric: Denies anxiety or depression Endocrine Endocrinology: Denies cold intolerance Hematologic/Lymphatic Hematologic/Lymphatic: Denies easy bleeding, easy bruising or lymphadenopathy Allergic/Immunologic Allergic/Immunologic ED: Denies mouth swelling, tongue swelling or urticaria EXAM Physical Exam Narrative Exam Narrative: 74-year-old male vital signs are stable. On 3 L of oxygen his pulse ox is in the low 80s. He does not look septic or toxic. He is sitting upright in bed. present in the room. H EENT exam pupils round reactive light. Moist mucous membranes. Neck nontender no JVD. No lymphadenopathy. Lungs clearto auscultation bilaterally. Heart A-fib rate in the 70s. Abdomen soft nontender. Moving all 4 extremities. 5 out of 5 research chief engineer strength. Dorsi plantarflexion intact. Normal strength. Calves are nontender without edema or cords. Back nontender. Neurologically is awake alert answering questions and following commands. Const Vital Signs: 08/01/24 11:41 08/01/24 11:43 08/01/24 11:44 Temperature 98.7 F 98.7 F Temperature Source Oral Oral Pulse Rate 73 73 Respiratory Rate 20 H 20 H Respiratory Effort Respiratory Pattern Blood Pressure 161/64 H 161/64 H Blood Pressure Mean 96 96 Pulse Ox 79 90 79 Oxygen Delivery Method Nasal Cannula Nasal Cannula Nasal Cannula Oxygen Flow Rate (L/min) 3 6 3 08/01/24 12:05 08/01/24 12:08 08/01/24 12:09 Temperature Temperature Source Pulse Rate 71 Respiratory Rate 16 Respiratory Effort Short of Breath Respiratory Pattern Normal Tachypnea Blood Pressure Blood Pressure Mean Pulse Ox 90 Oxygen Delivery Method Nasal Cannula Oxygen Flow Rate (L/min) 6 08/01/24 12:44 08/01/24 12:44 Temperature 98.6 F Temperature Source Oral Pulse Rate 96 89 Respiratory Rate 18 16 Respiratory Effort Respiratory Pattern Blood Pressure 144/49 H 120/86 H Blood Pressure Mean 80 97 Pulse Ox 93 98 Oxygen Delivery Method Room Air Room Air Oxygen Flow Rate (L/min) Positive well nourished and well developed; Negative for cachectic, contracturesor unkempt General Appearance ED: well developed and NAD; Negative for unkempt, cachectic, contractures or pallor Nutritional Appearance: Negative for cachectic HEENT Reports moist mucous membranes atraumatic; Negative for trauma or tenderness Eyes PERRL and EOMs intact bilaterally Neck no lymphadenopathy, supple, no meningeal signs and no JVD General: Negative for tenderness Lymph Lymphatic: Negative for other Resp normal respiratory effort and clear to auscultation bilaterally Auscultation: Negative for rales, rhonchi, wheezes or diminished lung sounds Cardio regular rate, S1 normal heart sound, S2 normal heart sound and no murmurs; Negative for regular rhythm Cardio Narrative: A-fib rate in the 70s. Rhythm: abnormal rhythm GI non-tender, non-distended and no masses Palpation: soft; Negative for tender, guarding or rebound tenderness present Back/Spine no CVA tenderness and normal to inspection Extremity normal to inspection General Extremety ED: Negative for edema or tenderness General Extremity: Negative for edema Neuro oriented x3 and CN's II-XII intact bilaterally Sensorium / Orientation: alert, oriented to person, oriented to place and oriented to time; Negative for orientation impaired, confused, lethargic or stuporous Speech: speech normal Sensory Exam: sensory level loss detected Motor Exam: strength 5/5 throughout Psych mental status grossly normal Appearance: Negative for unkempt Attitude: No agitated Mood & Affect: Negative for depressed, anxious or tearful Thought Process: normal thought process Skin no wounds and skin turgor normal General Skin Exam: Negative for jaundice or pallor Lesions: no lesions Rashes: no rashes Trauma: Negative for abrasion, laceration or puncture MDM MDM MDM Narrative Medical decision making narrative: 74-year-old male with shortness of breath. Chronically on 3 L at home. No cough. No fever. No chestpain. Known history of A-fib on the blood thinner Eliquis. Known history of COPD currently not wheezing. Differential would include COPD rule pneumonia ruled CHF versus other etiologies. Cardiac workup with a BNP and a chest x-ray. [facility]. Repeat exam patient is doing well at 1:05 PM. Given his chest x-ray and his labs I think is secondary to pulmonary edema. Patient be given Lasix. Clinically he has pneumonia. No fever. No cough. I will discuss with the hospitalist about admission. History & Record Review Discussion w/independent historian: Patient and Family Additional record(s) reviewed:: Prior inpatient record, Prior outpatient record,Prior ED visit and Prior labs Lab Data Attestation: I reviewed the patient's lab results. Lab results narrative: CBC shows white count 13.4. H&H 10.1 and 34.5. Platelets 395. Chemistries show a gap of 11. Normal BUN of 14 creatinine 0.73. Glucose 168. Initial troponin 39. BT EDUCATIONAL PARAPROFESSIONAL is 1,468. Chest x-ray is consistent with CHF. Labs: Laboratory Results - last 24 hr 08/01/24 12:04 WBC 13.4 H RBC 4.49 L Hgb 10.1 L Hct 34.5 L MCV 76.8 L MCH 22.5 L MCHC 29.3 L RDW Std Deviation 48.9 H RDW Coeff of Kavya 17.8 H Plt Count 395 MPV 10.2 Immature Gran % (Auto) 0.800 Neut % (Auto) 92.2 H Lymph % (Auto) 3.3 L [place]ford % (Auto) 2.5 Eos % (Auto) 0.7 Baso % (Auto) 0.5 Absolute Neuts (auto) 12.3 H Absolute Lymphs (auto) 0.44 L Nucleated RBC % 0 Sodium 139 Potassium 4.5 Chloride 104 Carbon Dioxide 24.3 Anion Gap 11 BUN 14 Creatinine 0.73 Est GFR (MDRD) Non-Af 97 BUN/Creatinine Ratio 19.1 Glucose 168 H Calcium 8.8 Troponin T High Sens 39 H NT pro BNP II 1468 H Radiography Chest X-Ray - ED: 2 View, Read by ED Physician and Read by Radiologist Diagnostic Testing: Clinical Impression(s) from Imaging Studies Chest X-Ray 08/01/24 12:18 IMPRESSION: Suspicion of left lower lobe infiltrate. Mild cardiac enlargement. Blunting of the lateral costophrenic angles due to pleural fluid and or thickening. Reading Location: [place] [address] Chest x-ray, 2 views, AP and lateral, interpreted by myself and the radiologist. I see bilateral vascular congestion consistent with CHF and with his history. And exam. Radiologist is concerned for apossible left lower lobe infiltrate. Patient has no fever and no cough. Rhythm Strip Rhythm Strip: A-fib Rate: 63 Ectopy: None EKG Initial EKG: Attestation: I personally reviewed and interpreted this EKG as follows: Interpretation: Atrial Fibrillation Comments: A-fib rate is 63. No acute ST elevation or pression. Inverted T waves in V4 through V6. Discharge Plan Dx/Rx/DC Orders Clinical Impression: Acute dyspnea, Hypoxia, CHF (congestive heart failure), History of COPD, Elevated troponin, Chronica-fib, Chronic anticoagulation, History of multiple myeloma Disposition Disposition: Acute Care Hospital [facility] What to do if you have Problems For any increased pain, shortness of breath, bleeding, nausea or vomiting, chestpain, or any unexpected problems, contact your Primary Care Provider. Call [facility] ([phone]) or report tothe closest Emergency Room. Call 911 if necessary. 08/01/24 1324 Cosigner Signature (if applicable): CC: Dr. Krishna Mcdaniel, DO ~ Signed [facility]04-09-2025 Radiology Diagnostic study note [facility] Imaging Services [address] [place], [place] [address] Chest PA and Lateral MR#: [id number] Acct: [id number] Name: CYN JAMES Jr. Rep #: [id number] : 1950 M 74 From: Staci Mendoza MD PCP: Dr. Krishna Mcdaniel DO Status: RE G ER Study:Chest PA and Lateral Date of Exam: 08/01/24 Exam# [id number] Ordering Dr: Meghan Jackson MD PROCEDURE: CHEST PA AND LATERAL 08/01/2024 REASON FOR EXAM: CHEST PAIN TECHNIQUE: Frontal and lateral views of the chest. COMPARISON: CT chest dated 05/17/2024 FINDINGS: Lungs: Prominent markings in the left lower lobe concerning for infiltrate. Pleura: Blunting of the lateral costophrenic angles. Heart: Mild cardiac enlargement Mediastinum/Ana: Unremarkable. Great vessels: Atherosclerotic aorta Bones/soft tissues: Multilevel spondylosis. Cardiac monitoring leads overlie the chest wall RAD/Chest PA and Lateral IMPRESSION: Suspicion of left lower lobe infiltrate. Mild cardiac enlargement. Blunting of the lateral costophrenic angles due to pleural fluid and or thickening. Reading Location: [place] [address] CC: Dr. Krishna Mcdaniel DO; Dr. George Jackson MD ~ Wheel Adjuster: Signed [facility]04-09-20[facility] History of Present illness Narrative* Christina Dover RT(R) - 08/01/2024 10:50 AM EDT Radiology Service Progress Note PATIENT NAME: Cyn James JR DATE OF SERVICE: August 01, 2024 TIME: 10:47 AM PATIENT IDENTITY VERIFICATION COMPLETED USING TWO (2) IDENTIFIERS: Name and Date of confirmedby patient verbally. FALL SCREENING: Has the patient had 2 falls in the last year or 1 fall with injury or currently using an Ambulatory Assistive Device (Walker, Cane, Wheelchair, Crutches, etc.)? No PATIENT GENDER DATA: Assigned male at PATIENT RELEVANT IMPLANT DATA REVIEWED: Yes PATIENT PRESENTS WITH AN IMPLANTABLE OR ATTACHED CHINA PAINTER: No RADIOLOGY DEPARTMENT: General X-ray: Exam(s) Completed: Chest X-Ray PERIPHERAL IV DATA: Not applicable SIGNED BY: RT Madhu(R) August 01, 2024 10:47 AM [facility] Telephone encounter Note* Telephone Encounter - Hardik Uriarte - 07/24/2024 9:40 AM EDT Received cardiac clearance, per [facility], patient to hold blood thinner for 3 days.[place] patient and he is aware to hold 3 days prior to the procedure Hardik Uriarte [facility]04-01-2025 Miscellaneous Notes* Telephone Encounter - Hardik Uriarte - 07/24/2024 9:40 AM EDT Received cardiac clearance, per [facility], patient to hold blood thinner for 3 days.Sp[place] patient and he is aware to hold 3 days prior to the procedure Hardik Uriarte * Telephone Encounter - Hardik Uriarte - 07/16/2024 1:57 PM EDT 10-17-2024 Colon Horner, cardiac clearance sent to [facility] and to verify Eliquis and how long to hold documented in [facility] Evaluation note* Diagnosis Onset Date Resolution Status Admit Date Spondylolisthesis, lumbar region acu te July 18, 2024 10:27am COPD (chronic obstructive pulmonary disease) chronic July 18 025 10:27am Hypoxia chronic July 18 10:27am Mixed hyperlipidemia chronic Eric 2024 10:27am Obesity chronic July 18 10:27am PAF (paroxysmal atrial fibrillation) chronic July 18, 2024 10:27am Diabetes mellitus deleted June 242024 10:27am Multiple myeloma deleted July 182024 10:27am Leukocytosis acute August 01, 025 2:07pm Acute dyspnea resolved August 01, 2024 2:07pm Acute on chronic heart failu re with preserved ejection fraction resolved August 01, 2024 2:07pm CHF (congestive heart failure) resol goran August 01, 2024 2:07pm Elevated troponin resolved August 012024 2:07pm Hypoxia resolved August 01 2:07pm Chronic a-fib inactive August 01, 2024 2:07pm Chronic anticoagulation inactive A pril 2024 2:07pm History of COPD inactive July 2:07pm History of multiple myeloma inactive August 01, 2024 2:07pm Microcytic anemia inactive August 012024 2:07pm Dyspnea on exertion acute August 14, 2024 1:28pm Essential hypertension chronic Ap ril 2024 1:28pm Heart failure with preserved ejection fraction, NYHA class II chronic August 14, 2024 1:28pm Multiple myeloma deleted August 142024 1:28pm COPD (chronic obstructive pulmonary disease) chronic September 04 12:32pm Heart failure with preserved ejection fraction, NYHA class II chronic September 04, 2024 12:32pm On home oxygen therapy chronic Ma y 2024 12:32pm CONCHA (obstructive sleep apnea) chroni c September 04, 2024 12:32pm Abnormal electrocardiogram acute September 21, 2024 1:57pm Dyspnea on exertion acute August 252024 1:57pm Essential hypertension chronic Ma y 2024 1:57pm Heart failure with preserved ejection fraction, NYHA class II chronic September 21, 2024 1:57pm History of left heart catheterization (LHC) January, chronic September 21, 2024 1:57pm Mixed hyperlipidemia chronic September 21, 2024 1:57pm PAF (paroxysmal atrial fibrillation) chronic September 21, 2024 1:57pm Abnormal electrocardiogram acute October 22, 2024 1:27pm Dyspnea on exertion acute October 22, 2024 1:27pm Essential hypertension chronic Ju ne 2024 1:27pm Heart failure with preserved ejection fraction, NYHA class II chronic October 22, 2024 1:27pm History of left heart catheterization (LHC) January, chronic October 22, 2024 1:27pm Mixed hyperlipidemia chronic October 22, 2024 1:27pm PAF (paroxysmal atrial fibrillation) chronic October 22, 2024 1:27pm [facility] Work Phone: 1(985) 272-357903-26-2025 Evaluation note* Diagnosis Onset Date Resolution Status Admit Date Spondylolisthesis, lumbar region acu te July 18, 2024 10:27am COPD (chronic obstructive pulmonary disease) chronic July 18, 025 10:27am Hypoxia chronic July 18 10:27am Mixed hyperlipidemia chronic Eric h 2024 10:27am Obesity chronic July 18 10:27am PAF (paroxysmal atrial fibrillation) chronic July 18, 2024 10:27am Diabetes mellitus deleted June 242024 10:27am Multiple myeloma deleted July 182024 10:27am Leukocytosis acute August 01, 025 2:07pm Acute dyspnea resolved August 01, 2024 2:07pm Acute on chronic heart failu re with preserved ejection fraction resolved August 01, 2024 2:07pm CHF (congestive heart failure) resol goran August 01, 2024 2:07pm Elevated troponin resolved August 012024 2:07pm Hypoxia resolved August 01 2:07pm Chronic a-fib inactive August 01, 2024 2:07pm Chronic anticoagulation inactive A pril 2024 2:07pm History of COPD inactive July 2:07pm History of multiple myeloma inactive August 01, 2024 2:07pm Microcytic anemia inactive August 012024 2:07pm Dyspnea on exertion acute August 14, 2024 1:28pm Essential hypertension chronic Ap ril 2024 1:28pm Heart failure with preserved ejection fraction, NYHA class II chronic August 14, 2024 1:28pm Multiple myeloma deleted August 142024 1:28pm COPD (chronic obstructive pulmonary disease) chronic September 04 12:32pm Heart failure with preserved ejection fraction, NYHA class II chronic September 04, 2024 12:32pm On home oxygen therapy chronic Ma y 2024 12:32pm CONCHA (obstructive sleep apnea) chroni c September 04, 2024 12:32pm Abnormal electrocardiogram acute September 21, 2024 1:57pm Dyspnea on exertion acute August 252024 1:57pm Essential hypertension chronic Ma y 2024 1:57pm Heart failure with preserved ejection fraction, NYHA class II chronic September 21, 2024 1:57pm History of left heart catheterization (LHC) January, chronic September 21, 2024 1:57pm Mixed hyperlipidemia chronic September 21, 2024 1:57pm PAF (paroxysmal atrial fibrillation) chronic September 21, 2024 1:57pm Dyspnea on exertion acute October 22, 2024 1:27pm Ventricular tachycardia acute J une 2024 1:27pm Essential hypertension chronic Ju ne 2024 1:27pm Heart failure with preserved ejection fraction, NYHA class II chronic October 22, 2024 1:27pm Mixed hyperlipidemia chronic October 22, 2024 1:27pm PAF (paroxysmal atrial fibrillation) chronic October 22, 2024 1:27pm [facility] Work Phone: 1(947) 341-582003-26-2025 Evaluation note* Diagnosis Onset Date Resolution Status Admit Date Spondylolisthesis, lumbar region acu te July 18, 2024 10:27am COPD (chronic obstructive pulmonary disease) chronic July 18 025 10:27am Hypoxia chronic July 18 10:27am Mixed hyperlipidemia chronic Eric h 2024 10:27am Obesity chronic July 18 10:27am PAF (paroxysmal atrial fibrillation) chronic July 18, 2024 10:27am Diabetes mellitus deleted June 242024 10:27am Multiple myeloma deleted July 182024 10:27am Leukocytosis acute August 01, 025 2:07pm Acute dyspnea resolved August 01, 2024 2:07pm Acute on chronic heart failu re with preserved ejection fraction resolved August 01, 2024 2:07pm CHF (congestive heart failure) resol goran August 01, 2024 2:07pm Elevated troponin resolved August 012024 2:07pm Hypoxia resolved August 01 2:07pm Chronic a-fib inactive August 01, 2024 2:07pm Chronic anticoagulation inactive A pril 2024 2:07pm History of COPD inactive July 2:07pm History of multiple myeloma inactive August 01, 2024 2:07pm Microcytic anemia inactive August 012024 2:07pm Dyspnea on exertion acute August 14, 2024 1:28pm Essential hypertension chronic Ap ril 2024 1:28pm Heart failure with preserved ejection fraction, NYHA class II chronic August 14, 2024 1:28pm Multiple myeloma deleted August 142024 1:28pm COPD (chronic obstructive pulmonary disease) chronic September 04 12:32pm Heart failure with preserved ejection fraction, NYHA class II chronic September 04, 2024 12:32pm On home oxygen therapy chronic Ma y 2024 12:32pm CONCHA (obstructive sleep apnea) chroni c September 04, 2024 12:32pm Abnormal electrocardiogram acute September 21, 2024 1:57pm Dyspnea on exertion acute August 252024 1:57pm Essential hypertension chronic Ma y 2024 1:57pm Heart failure with preserved ejection fraction, NYHA class II chronic September 21, 2024 1:57pm History of left heart catheterization (LHC) January, chronic September 21, 2024 1:57pm Mixed hyperlipidemia chronic September 21, 2024 1:57pm PAF (paroxysmal atrial fibrillation) chronic September 21, 2024 1:57pm Dyspnea on exertion acute October 22, 2024 1:27pm Ventricular tachycardia acute J une 2024 1:27pm Essential hypertension chronic Ju ne 2024 1:27pm Heart failure with preserved ejection fraction, NYHA class II chronic October 22, 2024 1:27pm Mixed hyperlipidemia chronic October 22, 2024 1:27pm PAF (paroxysmal atrial fibrillation) chronic October 22, 2024 1:27pm COPD (chronic obstructive pulmonary disease) chronic November 07 3:24pm Heart failure with preserved ejection fraction, NYHA class II chronic November 07, 2024 3:24pm Hypoxia chronic November 07 3:24pm Obesity chronic November 07 3:24pm CONCHA (obstructive sleep apnea) chroni c November 07, 2024 3:24pm PAF (paroxysmal atrial fibrillation) chronic November 07, 2024 3:24pm [facility] Work Phone: 1(577) 516-287403-24-2025 Telephone encounter Note* Telephone Encounter - Steven Uriarteie - 07/16/2024 1:57 PM EDT 10-17-2024 Colon Horner, cardiac clearance sent to [facility] and to verify Eliquis and how long to hold [facility]03-24-[facility] Instructions* Patient Instructions* Josephine Sutton MD - 07/16/2024 1:26 PM EDT COLONOSCOPY BOWEL PREPARATION INSTRUCTIONS GOLYTELY/NULYTELY/TRILYTE/COLYTE Your doctor has scheduled you for a colonoscopy. To have a successful colonoscopy, you must have a clean colon, that is empty. A clean colon allows your doctor to see the entire colon & diagnose issues like polyps or cancer. For doctors, a clean colon is like driving on a zora day; a dirty colon like driving in a storm. It is very important that you follow these instructions exactly, or your colonoscopy might not be as effective, could be canceled, and you may need to do the bowel prep and the colonoscopy again. TRANSPORTATION REQUIREMENTS You are receiving IV sedation. For your safety, a responsible adult escort must accompany you to and from your procedure: Your adult escort MUST be present with you at check-in for your colonoscopy. Your adult escort MUST remain in the endoscopy area until you are discharged. Your adult escort MUST transport you home once you are discharged. You are NOT allowed to operate any form of transportation (i.e. drive a car, bicycle, etc.) or leave the Endoscopy Center ALONE. It is not safe to do so. If you cannot meet these requirements, your procedure will be canceled. MEDICATION REQUIREMENTS For your safety, certain medications will need to be stopped or adjusted before you can have your procedure: BLOOD THINNERS: If you take blood thinners, such as Coumadin (warfarin), Plavix (clopidogrel), Ticlid (ticlopidine hydrochloride), Agrylin (anagrelide), Xarelto (Rivaroxaban), Pradaxa (Dabigatran), Eliquis (Apixaban), or Effient (Prasugrel), contact the physician who is prescribing these medications at least 2 weeks prior to your procedure to discuss any necessary adjustments. DIABETES: If you take medications for diabetes, your dosage may need to be adjusted. If you are being treated for diabetes with insulin, diabetic pills, or other injectable medicationsdo not take your REGULAR dose after midnight on the day of your procedure. If you are taking any other types of insulin such as Lantus, Humalog, NPH (long- acting insulin), or70/30 insulin, take half your normal dose the day before your procedure. DIABETES/WEIGHT MANAGEMENT: If you take medications for weight-loss, your dosage may need to be adjusted Contact the doctor who prescribes this medication for further instructions. If you take medications for weight-loss like semaglutide (Ozempic, Wegovy, Rybelsus), dulaglutide (Trulicity), liraglutide (Victoza, Saxenda), exenatide (Byetta, Bydureon), or lixisenatide (Adylyxin), stop your medication 1 week prior to your procedure. If you take medications like canagliflozin (Invokana), dapagliflozin (Farxiga, Forxiga), empagliflozin (Jardiance), stop your medication 3 days prior to your procedure. If you take ertugliflozin (Steglatro) stop your medication 4 days prior to your procedure. IRON: If you take iron pills, STOP them 1 week BEFORE your procedure, may resume after. OTHER MEDS: May take all other medications (including aspirin, antibiotics, water pills / diureticslike Lasix or Metolozone, blood pressure meds, etc.) at their usual scheduled time with a sip of water. DIET REQUIREMENTS The day before your colonoscopy, you may have a clear liquid diet (see below). The day of your colonoscopy, you may continue a clear liquid diet until 3 hours before your colonoscopy. Within 3 hours of your colonoscopy, take only any medications (as above) with a sip of water. Clear Liquid Diet Broth (chicken, beef or vegetable broth or bullion. Just the broth, no solids). Water Coffee or Tea (NO milk or creamer), but sugar and sugar substitutes are allowed. Clear liquids including clear, yellow, green, blue (NO red, NO orange, NO purple) Sodas / soft drinks Gatorade or other sports drinks Jn-Aid or flavored drinks Plain Jell-O or other gelatins Fruit juice (strained; no-pulp) Popsicles or hard candy BOWEL PREPARATION (GOLYTELY/NULYTELY/TRILYTE/COLYTE) Split Dosing Bowel Prep: This means drinking your bowel prep in two doses. Split dosing helps cleanyour colon better and makes it less likely that your procedure will be canceled. Fill your prescription for Golytely/Nulytely/Trilyte/Colyte: The afternoon before your colonoscopy, mix the solution and refrigerate. You may add the flavor pack (if present) that came with the bowel preparation. Do not add ice, sugar, or other flavorings to the solution. You will drink your prep in two doses, by several hours. On the evening before your colonoscopy: 1. 6 PM drink the first half of the bowel preparation solution. Drink one 8-ounce glass every 15 minutes. 2. Six hours before your colonoscopy, drink the second half of the solution. Drink one 8-ounce glass every 15 minutes. 3. You may continue a clear liquid diet until 3 hours before your colonoscopy. Bowel prep can work differently from person to person. Some people's bowels move slowly and they may need different instructions. Please see your doctor in office or virtually for personalized bowel prep instructions if you have: Medical condition that needs special accommodations Had a poor bowel prep results or failed bowel prep attempts in the past. Had difficulty with anesthesia during the procedure. FREQUENTLY ASKED QUESTIONS Q: What if I suffer from constipation? A: Recommend taking extra laxatives to resolve your constipation days prior to entering the bowel prep day. Q: What if have had prior poor preps results in past? A: Contact your physician as you will likely need additional bowel prep instructions. Q: What if I have motility issues like Parkinson's, MS (multiple sclerosis), wheelchair dependent, etc.? or on medications that slow bowel emptying (narcotics, gabapentin, anticholinergic medicationsetc.) A: Contact your physician as you will likely need extra time and additional laxatives to complete your bowel prep. Q: What if I cannot drink large volume of liquid? A: Start your prep 2-3 hours earlier to allow yourself more time to complete the entire prep. Q: What if I can't finish my bowel prep? A: If you cannot finish your entire bowel prep, it is likely that your colonoscopy will need to be rescheduled due to poor prep quality. Q: What if I had bariatric surgery? Do I still have to complete the entire prep? A: Yes, gastric bypass surgery involves the stomach & small bowel. You may need to drink smaller amounts, slower (may need more time to complete your bowel prep). Gastric bypass does not alter the length of your colon so you will need to complete the entire bowel prep, it may just take longer time to complete it. Q: What if I am on dialysis? A: Please consult your nurse aide prior to scheduling to get instructions pertinent to you. In general, dialysis patients take the Golytely bowel prep and have the procedure same day of their dialysis (colonoscopy in AM, dialysis in PM). Q: How do I know if something is considered as clear liquid diet? A: If you can pour it in a glass and you can see through it, it is considered clear liquid Q: Can I eat nuts, seeds, beans, popcorn, dried fruits, vegetables & fruits that have skin peel? A: No, you will need to not eat these items starting 3 days prior to procedure. Q: Can I take Uber/Lyft/taxi/bus home? A: An adult MUST be present with you at check-in for your colonoscopy and remain in the endoscopy area until you are discharged. You can take Uber home only if this adult escort is with you at check in, remain in the endoscopy area until you are discharged, and takes the Uber with you to home. Q: Can I sleep it off here and drive myself home? A: No, you must have an adult with you at time of procedure check in, remain in the endoscopy center during your procedure, and drive you home. You cannot drive a vehicle after your procedure the rest of the day. documented in [facility] History of Present illness Narrative* Josephine Sutton MD - 07/16/2024 1:21 PM EDT HISTORY AND PHYSICAL Cyn James JR 1950 REFERRING PHYSICIAN: Katey Booker DO CHIEF COMPLAINT: Consult (colonoscopy with history of colon cancer) HPI: The patient is a 74 year old male referred for endoscopy. Cyn notes history of colon cancer. 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 He had presented to [facility] and diagnosed with pneumonia and discharged on home supplemental oxygen. He denies blood in his stools. He denies chronic abdominal pain. He denies chest pain; denies history of [place]. PAST MEDICAL HISTORY Diagnosis Date Anemia 05/03/2023 CHF (congestive heart failure) ([facility]) 05/03/2023 CKD (chronic kidney disease) stage 1, GFR 90 ml/min or greater Congestive heart failure (HCC) COPD (chronic obstructive pulmonary disease) ([facility]) Diabetes mellitus ([facility]) Diabetes mellitus, type 2 ([facility]) 05/03/2023 Elevated platelet count 05/03/2023 GERD (gastroesophageal reflux disease) 05/03/2023 HLD (hyperlipidemia) 05/03/2023 HTN (hypertension) Iron deficiency anemia due to chronic blood loss 12/30/2022 Iron malabsorption 12/30/2022 Leukocytosis 05/03/2023 Marijuana user 05/03/2023 Mixed hyperlipidemia Morbid obesity ([facility]) 05/03/2023 Multiple myeloma not having achieved remission ([facility]) 09/24/2022 On home O2 05/03/2023 CONCHA (obstructive sleep apnea) 05/03/2023 Peripheral sensory neuropathy Psoriasis Red blood cell antibody positive 05/04/2023 Sleep apnea PAST SURGICAL HISTORY Procedure Laterality Date CATARACT EXTRACTION HX 04/25/2013 Left eye FOOT SURGERY HX Left PAST SURGICAL HISTORY OF 02/02/2023 TURP TRANSURETHRAL ELEC-SURG PROSTATECTOM Current Outpatient Medications Medication Sig acyclovir (ZOVIRAX) 400 mg tablet Take 400 mg by mouth two times a day. tiZANidine (ZANAFLEX) 4 mg tablet Take 4 mg by mouth every 8 hours as needed. apixaban (ELIQUIS) 5 mg tab(s) Take 5 mg by mouth two times a day. insulin glargine,hum.rec.anlog (BASAGLAR KWIKPEN U-100 INSULIN SUBCUTANEOUS) Inject subcutaneously.60 units with breakfast 60 units with dinner 42 units at bedtime HUMALOG KWIKPEN INSULIN 100 unit/mL 28 units with breakfast, 34 units with lunch, 46 units with dinner. calcium carbonate/vitamin D3 (CALCIUM + D ORAL) Take 1 tablet by mouth once daily. potassium chloride ER (KLOR-CON) 20 mEq tablet Take 1 tablet by mouth once daily. tidyllwkyqk-njnlgalij-gxejhtez (TRELEGY ELLIPTA) 200-62.5-25 mcg inhalation powder Inhale 1 Puff asinstructed once daily. dexAMETHasone (DECADRON) 4 mg tablet Take 5 tablets with breakfast on day of each daratumuamb treatment. ondansetron (ZOFRAN) 8 mg tablet Take 1 tablet by mouth every 8 hours as needed for nausea/vomiting. dilTIAZem CD (CARDIZEM CD, CARTIA XT) 240 mg 24 hr capsule Take 1 capsule by mouth once daily. empagliflozin (JARDIANCE) 10 mg tablet Take 10 mg by mouth once daily. acetaminophen (TYLENOL EXTRA STRENGTH) 500 mg tablet Take 1,500 mg by mouth every 8 hours as needed. torsemide (DEMADEX) 10 mg tablet Take 10 mg by mouth once daily as needed. losartan (COZAAR) 50 mg tablet Take 50 mg by mouth once daily. pantoprazole DR (PROTONIX) 40 mg tablet Take 40 mg by mouth once daily. cholecalciferol (VITAMIN D-3) 50 mcg (2,000 unit) tablet Take 2,000 Units by mouth once daily. OMEGA-3 FATTY ACIDS ORAL Take 1 tablet by mouth once daily. magnesium oxide/magnesium (MAGNESIUM OXIDE-MG AA CHELATE ORAL) Take 250 mg by mouth once daily. albuterol HFA (PROVENTIL HFA, VENTOLIN HFA) 90 mcg/actuation inhaler Inhale 1 Puff as instructed asneeded. metFORMIN (GLUCOPHAGE) 1,000 mg tablet Take 1,000 mg by mouth twice daily with meals. atorvastatin (LIPITOR) 20 mg tablet Take 20 mg by mouth once daily. furosemide (LASIX) 40 mg tablet Take 40 mg by mouth once daily. (Patient not taking: Reported on 07/04/2024) FIASP FLEXTOUCH U-100 INSULIN 100 unit/mL (3 mL) pen 22 units with breakfast, 36 units with lunch, 54 units with dinner. TRESIBA U-100 INSULIN 100 unit/mL injection 60 units with breakfast, 60 units with dinner, 54 unitsat bedtime. (Patient not taking: Reported on 06/06/2024) iv contrast (will be provided with radiology test) CT Chest W -Inject, intravenously, once for 1 dose.No IV access, insert saline lock prior to the beginning of sedation, infusion, injection of imaging exam. Discontinue saline lock post exam. If Pt. has a central line or IVAD, may access for administration according to line specific nursing protocol. Once exam is complete flush line and de-accessaccording to line specific nursing protocol in the CT contrast administration guidelines link. iv contrast (will be provided with radiology test) CT ABD/PEL -Inject, intravenously, once for 1 dose.No IV access, insert saline lock prior to the beginning of sedation, infusion, injection of imaging exam. Discontinue saline lock post exam. If Pt. has a central line or IVAD, may access for administration according to line specific nursing protocol. Once exam is complete flush line and de-accessaccording to line specific nursing protocol in the CT contrast administration guidelines link. enteric contrast (will be provided with radiology test) For CT ABD/PEL W IVCON Routine order Administer, As Directed One Time Only, via Oral, Rectal, both Oral and Rectal, Enteric Tube, Stoma or Indwelling Catheter, Enteric Contrast as designated per enteric contrast guidelines INV SEMAGLUTIDE, OZEMPIC,, 2 MG/1.5 ML, PEN (IRB 20-853) Inject 0.5 mg subcutaneously one time a week. For Investigation Drug Use Only. PI: Dr. Aleks Finn (Patient not taking: Reported on 07/04/2024) insulin aspart U-100 (NOVOLOG U-100 INSULIN ASPART) 100 unit/mL soln Take 26 units with breakfast, 42 units at lunch, 46 units at dinner, zero at bedtime insulin detemir U-100 (LEVEMIR) 100 unit/mL injection 60 breakfast, 60 lunch, and 42 bedtime. No current facility-administered medications for this visit. ALLERGIES: Penicillins PERSONAL HISTORY: Social History Tobacco Use Smoking status: Former Current packs/day: 0.00 Average packs/day: 1 pack/day for 32.0 years (32.0 ttl pk-yrs) Types: Cigarettes Start date: 05/22/1968 Quit date: 05/22/2000 Years since quittin.1 Smokeless tobacco: Never Vaping Use Vaping status: Never Used Substance Use Topics Alcohol use: Yes Comment: occ Drug use: Yes Types: Marijuana Comment: gummies- marijuana FAMILY HISTORY Problem Relation Age of Onset Diabetes Father 86 d/t liver failure Breast Cancer Mother 65 Living Cancer Sister ? Lymphoma Diabetes Maternal Grandmother Diabetes Paternal Grandmother Anesthesia Problems No Family History REVIEW OF SYSTEMS: General - denies fevers HEENT - denies trauma/infections Resp - denies coughing up blood, denies breathing difficulties Cardiac - denies chest pain GI - see HPI - denies blood in urine Endocrine - has diabetes Heme - on Eliquis Psych - denies hallucinations PHYSICAL EXAMINATION: General: The patient is 74 year old male, well nourished, well hydrated in no acute distress. The patient is oriented to time, place, and person. VITALS: Blood pressure 126/58, pulse 82, weight (!) 139.3 kg (307 lb), SpO2 93%. Body mass index is45.6 kg/m . Head: Normal cephalic, atraumatic Eyes: pupils are equally round, sclera are clear/anicteric Neck is supple with no tracheal deviation Cardiac: normal heart sounds, regular Respiratory: normal breath sounds, normal respiratory excursion and pattern. Abdominal exam: soft obese and benign Extremities: no clubbing, cyanosis or edema. Neuro: non focal Psych: normal mood The sensitive examination was discussed with the Patient or Patient's Authorized Seaman. Asapplicable, any other physician, advance practice provider, medical student, or other health professional student that will be observing or involved in the sensitive examination for educational or training purposes was discussed with the Patient or Authorized Seaman. The Patient or Authorized Seaman has agreed to proceed with the sensitive examination. (Sensitive examination includes inspection and/or palpation of the breasts, pelvis, prostate and anorectal regions) Assessment IMPRESSION: history of sigmoid colon cancer PLAN: I have discussed the above with the patient. I have offered colonoscopy, possible biopsies I have explained the procedure to the patient. I have counseled the patient as to the risks of the procedure, including but not limited to: infection, bleeding, injury to any intrabdominal organs such as liver/spleen, perforation of the GI tract,inability to complete the procedure, complications of anesthesia, etc. - the patient understands. The patient wishes to proceed. I have answered all questions to the patient s satisfaction and the patient has no further questions. My clinic staff has educated the patient as to the colon cleansing regimen and I have prescribed Golytely for the colon cleansing solution. The patient will be scheduled for the procedure at [facility] Diagnoses: (Z85.038) History of colon cancer (primary encounter diagnosis) (J44.9) Chronic obstructive pulmonary disease, unspecified COPD type (HCC) (E66.01) Morbid obesity (HCC) I have confirmed and edited as necessary, the PFSH and ROS obtained by others. Consultation requested by Dr. Katey Booker for an opinion regarding patient's history of colon cancer. My final recommendations will be communicated back to the requesting physician by way of shared Medical record or letter to requesting physician via US mail. Medical Decision Making: Problems: Low: Stable chronic illness Risk: Low: Low risk from testing/treatment Medical Decision Making Level: 3 - Low Josephine Sutton MD documented in this encounterEast [facility]03-12-2025 Telephone encounter Note * Telephone Encounter - Adela Ho - 07/04/2024 1:13 PM EDT Patient's appointments have been updated as requested Adela Underwood [facility]03-12-2025 Miscellaneous Notes* Telephone Encounter - Adela Ho - 07/04/2024 1:13 PM EDT Patient's appointments have been updated as requested Adela Underwood * Telephone Encounter - Vivian Lazaro - 07/04/2024 11:14 AM EDT Every 3 month MM labs. Monthly CBC/CMP. Alternate OV's between Dr. Booker and the David. Referral to general surgery for surveillance colonoscopy.-DONE documented in this encounterEast [facility]03-12-2025 Telephone encounter Note * Telephone Encounter - Vivian Lazaro - 07/04/2024 11:14 AM EDT Every 3 month MM labs. Monthly CBC/CMP. Alternate OV's between Dr. Booker and the David. Referral to general surgery for surveillance colonoscopy.-DONE [facility]03-12-2025 [facility]03-12-2025 History of Present illness Narrative* Katey Booker DO - 07/04/2024 10:08 AM EDT Diagnosis: 1) IgA lambda multiple myeloma. 2) High risk stage II colon cancer. HPI: The patient is a 74 yo male with PMH significant for DM (peripheral sensory neuropathy) CKD stage I, psoriasis, mixed hyperlipidemia, HTN (essential). He had a several year history of diabetes and established with Dr. Vega about 3 years prior to initial consultation here. A chemistry panel revealed an increase in the globulin fraction and therefore a serum protein electrophoresis and immunofixation was obtained. The patient was found to have a low level IgA lambda monoclonal protein with the M spike quantified at 0.7 g/dL. Urine protein electrophoresis was noted to have an atypical gamma without any quantification. The patient's serum chemistries were significant for creatinine of 1.0 mg/dL and a calcium of 8.6 mg/dL. The total protein was 7.8 g/dL with an albumin of 3.2 g/dL and a globulin fraction of 4.6 g/dL yielding an A/G ratio 0.7. Hepatocellular enzymes were normal. Sister diagnosed with retro-orbital lymphoma. Patient had daughter who at age 24 in 2003 from acute leukemia. Previous therapy: 1) VRd. Began 10/28. Current therapy: 1) Dd. x1 cycle. He had onset of dyspnea during the first week. Went to the ED and had CTA of chest ruled out PE. Was using his home oxygen which previously he only used at night when he felt he needed it. Was told he has mild COPD and asthma on top of it. He went back to the ED at [facility] 12/16 for worsening dyspnea. He was diagnosed with acute on chronic heart failure. BNP was elevated on presentation. CTA of the chest showed no evidence of PE. He was noted to have new moderate bilateral effusions and bilateral compressive atelectasis. He has preserved ejection fraction. Initially treated with furosemide drip. 2D echo demonstrated an EF of 70%. Symptoms improved but he was noted to be anemic and had a positive stool sample for occult blood. Underwent EGD which demonstrated severe erosive gastritis and 2 bleeding angiodysplastic lesions in the stomach which were treated with heater probe. He also had duodenitis which was biopsied. He was treated with pantoprazole 40 mg twice daily. He was able to taper oxygen down to 2 L and was discharged in 12/20. Underwent robotic laparoscopic sigmoid colectomy with colorectal anastomosis on 05/10/2023. Pathology: A. Colon, sigmoid, robotic laparoscopic colectomy -Invasive adenocarcinoma, moderately differentiated, 8.2 cm, extending into pericolonic tissue (seecomment) -Surgical margins negative for carcinoma and high-grade dysplasia -Negative for metastasis in thirty-four of thirty-four pericolic lymph nodes (0/34) B. Colon, distal donut, excision -Colonic mucosa with no significant pathologic abnormality Diagnosis Comment Microscopic examination demonstrates a moderately differentiated invasive adenocarcinoma, extendinginto pericolonic tissue. There is extensive abscess formation associated with gross/macroscopic tumor perforation and an exuberant pericolonic inflammatory response that is undermining the tumor. There is no tumor identified within the abscess cavity itself or at the site of perforation, consistentwith a pT3 staging classification. A. Colon, sigmoid, robotic laparoscopic colectomy -Invasive adenocarcinoma, moderately differentiated, 8.2 cm, extending into pericolonic tissue (seecomment) -Surgical margins negative for carcinoma and high-grade dysplasia -Negative for metastasis in thirty-four of thirty-four pericolic lymph nodes (0/34) B. Colon, distal donut, excision -Colonic mucosa with no significant pathologic abnormality Diagnosis Comment Microscopic examination demonstrates a moderately differentiated invasive adenocarcinoma, extendinginto pericolonic tissue. There is extensive abscess formation associated with gross/macroscopic tumor perforation and an exuberant pericolonic inflammatory response that is undermining the tumor. There is no tumor identified within the abscess cavity itself or at the site of perforation, consistentwith a pT3 staging classification. COLON AND RECTUM: Resection, Including Transanal Disk Excision of Rectal Neoplasms 8th Edition - Protocol posted: 10/14/2021 COLON AND RECTUM: RESECTION - A SPECIMEN Procedure Sigmoidectomy TUMOR Tumor Site Sigmoid colon Histologic Type Adenocarcinoma Histologic Grade G2, moderately differentiated Tumor Size Greatest dimension (Centimeters): 8.2 cm Tumor Extent Invades through muscularis propria into the pericolonic or perirectal tissue Macroscopic Tumor Perforation Present Lymphovascular Invasion Not identified Perineural Invasion Not identified Treatment Effect No known presurgical therapy MARGINS Margin Status for Invasive Carcinoma All margins negative for invasive carcinoma Closest Margin(s) to Invasive Carcinoma mesorectal margin Distance from Invasive Carcinoma to Closest Margin 2.1 cm Margin Status for Non-Invasive Tumor All margins negative for high-grade dysplasia / intramucosal carcinoma and low-grade dysplasia REGIONAL LYMPH NODES Regional Lymph Node Status All regional lymph nodes negative for tumor Number of Lymph Nodes Examined 34 Tumor Deposits Not identified PATHOLOGIC STAGE CLASSIFICATION (pTNM, AJCC 8th Edition) Reporting of pT, pN, and (when applicable) pM categories is based on information available to the pathologist at the time the report is issued. As per the AJCC (Chapter 1, 8th Ed.) it is the managingphysician s responsibility to establish the final pathologic stage based upon all pertinent information, including but potentially not limited to this pathology report. pT Category pT3 pN Category pN0 Results Mismatch Repair Protein Immunohistochemistry Results: MLH1: Normal/Intact Nuclear Expression PMS2: Normal/Intact Nuclear Expression MSH2: Normal/Intact Nuclear Expression MSH6: Normal/Intact Nuclear Expression Presents for ongoing oncologic management. Interim history: Still on home O2. Still feels fatigued. Not short of breath at rest using oxygen. Dyspnea with exertion. Scheduled for PFTs. Right lateral mid back pain much better. No change in symptoms from sensory neuropathy: Doesn't drive due to baseline neuropathy of the feet. Extends prison up the LEs b/l--stable. Fingers tingle and numb. Remains on gabapentin for low back pain. PMH, medications and allergies personally reviewed by me today. Any changes documented in appropriate section. PHYSICAL EXAM: Vitals: Blood pressure 143/75, pulse 75, temperature 37.2 C (98.9 F), temperature source Temporal, weight (!) 137 kg (302 lb), SpO2 92%. Well-appearing and in no acute distress. EYES: Sclerae are anicteric bilaterally. LYMPHATIC: There is no palpable cervical or supraclavicular adenopathy. CARDIOVASCULAR: Rhythm is regular. ABDOMEN: The abdomen is nondistended. Extremities: No swelling or edema. SKIN: No jaundice or rash. IMAGING: Whole-body PET 09/06/2022 demonstrated scattered increase areas of FDG uptake in the thoracic and lumbar spine as well as the right iliac wing, posterior ilium and left acetabulum. Calculated maximum SUV was 4.2. This fulfilled quantitative criteria for viable osseous neoplasm. PATHOLOGY: BM biopsy 09/22/2022: A-C. Bone marrow, aspirate smear and core biopsy, with clot section: - Lambda monotypic plasma cell neoplasm involving ~20% of the marrow cellularity. - See comment. D. Peripheral blood smear: - Neutrophilic leukocytosis. - Normocytic anemia. - Mild thrombocytosis. FISH from 2019: RESULT: ABNORMAL hybridization pattern (see interpretation). Anomaly Result 1p32 (CDKN2C): Normal pattern 1q21 (CKS1B): Normal pattern +9 (CEP9): Normal pattern t(11;14)(q13;q32)(IGH/CCND1): Positive (78/100) 13q14 (RB1): Normal pattern 14q32 (IGH): Positive for IGH translocation (78/100) +15 (CEP15): Normal pattern 17p13 (TP53): Normal pattern INTERPRETATION: These findings demonstrate a plasma cell population with t(11;14)/IGH-CCND1. These findings are consistent with the presence of a plasma cell neoplasm. In plasma cell myeloma, these findings are associated with standard risk disease. Correlation with metaphase cytogenetic analysis is suggested. 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 -Initial bone marrow biopsy 20% PCs in the core specimen. -PET 2019 revealed no suspicious skeletal lesions. -PET 08/2022 indicated lesions defining multiple myeloma. -Bone marrow--still had about 20% PCs. -Standard risk disease by FISH panel 2019. -Significant baseline sensory neuropathy. -Myeloma frailty score is 1 (intermediate). -He was not a candidate for transplant given his other comorbid conditions. He said he wouldn't want to undergo ASCT if medically cleared to do so. -Devious episode decompensated CHF (diastolic dysfunction). -Had worsening neuropathy from bortezomib. -Tolerating daratumumab well. Therapy was on hold a while for colon cancer surgery. -I reviewed the above lab work with him. Now in CR (without bone marrow confirmation). -Tolerating treatment overall very well. -He is very prone to lower respiratory tract infections. Underlying emphysema. Again reviewed trendin his IgG and explained that if level goes under 400 mg/dL then he would be a candidate for IVIG. Plan: -Continue acyclovir. -Continue holding lenalidomide, but will restart if progresses. -Dexamethasone 8 mg PO weekly due to exacerbation of blood glucose at higher doses.. -change to every 3 month monitoring of serum monoclonal protein and light chains. -Continue PPI since continuing dexamethasone. -Continue monitoring counts monthly.. -Continued follow-up with his PCP and refuse driver. -Okay for Zometa today. Then every 3 months. (C18.7) Cancer of sigmoid colon (HCC) (S31.109A) Open wound of abdominal wall, initial encounter Assessment: -pT3 N0 M0 G2 stage IIA adenocarcinoma of the sigmoid colon. -pMMR. -High risk feature of macroscopic tumor perforation. -Tumor budding not reported. -Reviewed CT results from 06/17/2024. ROSALIO. -PET scan was done yesterday. Report not yet available. -We discussed need for surveillance colonoscopy. Plan: -Referral to general surgery for surveillance colonoscopy. -Pending results of PET scan, resume every 6-month CT chest, abdomen pelvis for surveillance of colon cancer. Low back pain. -Continue with CPM. -He will be contacted with results of the PET scan as soon as available. Microcytic anemia Assessment: -Either anemia of chronic disease or iron deficiency. Most likely the latter. Most recent check of iron April 2023. Plan: -Recheck iron studies. Portions of this documentation were copied and pasted from my previous office visit note dated 06/06/2024 in order to provide a cohesive continuity of the history. The note has been reviewed and edited and updated as necessary. Katey Booker DO documented in this encounterEast [facility] Hospital02-27-2025 Telephone encounter Note * Telephone Encounter - Rachana Torres LPN - 06/21/2024 12:39 PM EST Information faxed as requested. Rachana Torres LPN [facility]02-27-[facility] Miscellaneous Notes* Telephone Encounter - Rachana Torres LPN - 06/21/2024 12:39 PM EST Information faxed as requested. Rachana Torres LPN * Telephone Encounter - Dangelo Lopez - 06/21/2024 12:06 PM EST Siri from [facility] requesting last office notes, pathology and recent imaging be faxed to them as well. * Telephone Encounter - Vivian Lazaro - 06/21/2024 11:07 AM EST Faxed order as requested Vivian Lazaro * Telephone Encounter - Dangelo Lopez - 06/21/2024 10:48 AM EST Ann-Marie from [facility] called stating Pet Scan order needs to be faxed to [phone]. * Telephone Encounter - Keely Sullivan - 06/21/2024 10:09 AM EST Spoke w pt and faxing PET order to [facility] upon pt request. Keely Sullivan * Telephone Encounter - David Mckinney - 06/21/2024 9:25 AM EST Called patient to review recent CT results: No concerns on CT scan. Still having rib pain but not as bad. Reviewed with Dr. Booker, proceed with PET to further evaluate pains.Reviewed with patient, all questions answered at this time. PET scan ordered. Previous was a [facility]. PSR: Can you please schedule next available? David Mckinney APRN.ENROUTE CONTROLLER documented [facility] Telephone encounter Note * Telephone Encounter - Dangelo Lopez - 06/21/2024 12:06 PM EST Siri from [facility] requesting last office notes, pathology and recent imaging be faxed to them as well. [facility] Work Phone: 1(961) 345-666902-27-2025 Telephone encounter Note* Telephone Encounter - Vivian Lazaro - 06/21/2024 11:07 AM EST Faxed order as requested Vivian Lazaro [facility]02-27-2025 Telephone encounter Note* Telephone Encounter - Dangelo Lopez - 06/21/2024 10:48 AM EST Ann-Marie from [facility] called stating Pet Scan order needs to be faxed to [phone]. [facility]02-27-[facility] Telephone encounter Note* Telephone Encounter - Keely Sullivan - 06/21/2024 10:09 AM EST Spoke w pt and faxing PET order to [facility] upon pt request. Keely Sullivan [facility]02-27-2025 Telephone encounter Note* Telephone Encounter - David Mckinney - 06/21/2024 9:25 AM EST Called patient to review recent CT results: No concerns on CT scan. Still having rib pain but not as bad. Reviewed with Dr. Booker, proceed with PET to further evaluate pains.Reviewed with patient, all questions answered at this time. PET scan ordered. Previous was a [facility]. PSR: Can you please schedule next available? David Mckinney APRN.ENROUTE CONTROLLER [facility]02-25-2025 Telephone encounter Note* Telephone Encounter - Eva Clay - 06/19/2024 3:28 PM EST Pharmacy used [facility] to request a refill on the medication(s) below: Requested Prescriptions Pending Prescriptions Disp Refills dilTIAZem CD (CARDIZEM CD, CARTIA XT) 240 mg 24 hr capsule [Pharmacy Med Name: DILTIAZEM HCL ER COATED BE 240 CP24] 90 capsule 0 Sig: TAKE ONE CAPSULE BY MOUTH EVERY DAY PHARMACY NAME [facility] / PHONE NUMBER: [phone] Pickup RX Physician's Name: Trina Bernal M.D. Last seen in office: 05/03/2023 Last VV: N/A If last appointment greater than one year or no follow up scheduled, sent to schedulers Yes, sent Scaleform Message - Next Appt: N/A Eva Clay June 19, 2024 3:29 PM [facility]02-25-2025 Miscellaneous Notes* Telephone Encounter - Eva Clay - 06/19/2024 3:28 PM EST Pharmacy used [facility] to request a refill on the medication(s) below: Requested Prescriptions Pending Prescriptions Disp Refills dilTIAZem CD (CARDIZEM CD, CARTIA XT) 240 mg 24 hr capsule [Pharmacy Med Name: DILTIAZEM HCL ER COATED BE 240 CP24] 90 capsule 0 Sig: TAKE ONE CAPSULE BY MOUTH EVERY DAY PHARMACY NAME [facility] / PHONE NUMBER: [phone] Pickup RX Physician's Name: Trina Bernal M.D. Last seen in office: 05/03/2023 Last VV: N/A If last appointment greater than one year or no follow up scheduled, sent to schedulers Yes, sent [employer] Message - Next Appt: N/A Eva Clay June 19, 2024 3:29 PM documented in [facility] encounter[facility] Evaluation note* Diagnosis Onset Date Resolution Status Admit Date Community acquired pneumonia acute June 13, 2024 12:27pm Essential hypertension chronic Fe bruary 2024 12:27pm Heart failure with preserved ejection fraction, NYHA class II chronic June 13 12:27pm PAF (paroxysmal atrial fibrillation) chronic June 13 12:27pm Spondylolisthesis, lumbar region acute July 18, 2024 10:27am COPD (chronic obstructive pulmonary disease) chronic July 18 10:27am Hypoxia chronic July 18 10:27am Mixed hyperlipidemia chronic Eric h 2024 10:27am Obesity chronic July 18 10:27am PAF (paroxysmal atrial fibrillation) chronic July 18, 2024 10:27am Diabetes mellitus deleted June 242024 10:27am Multiple myeloma deleted July 182024 10:27am Leukocytosis acute August 01 025 2:07pm Acute dyspnea resolved August 01, 2024 2:07pm Acute on chronic heart failu re with preserved ejection fraction resolved August 01, 2024 2:07pm CHF (congestive heart failure) resol goran August 01, 2024 2:07pm Elevated troponin resolved August 012024 2:07pm Hypoxia resolved August 01 2:07pm Chronic a-fib inactive August 01, 2024 2:07pm Chronic anticoagulation inactive A pril 2024 2:07pm History of COPD inactive July 2:07pm History of multiple myeloma inactive August 01, 2024 2:07pm Microcytic anemia inactive August 012024 2:07pm Dyspnea on exertion acute August 14, 2024 1:28pm Essential hypertension chronic Ap ril 2024 1:28pm Heart failure with preserved ejection fraction, NYHA class II chronic Ling 22nd, 2025 1:28pm Multiple myeloma deleted August 142024 1:28pm COPD (chronic obstructive pulmonary disease) chronic September 04 12:32pm Heart failure with preserved ejection fraction, NYHA class II chronic September 04, 2024 12:32pm On home oxygen therapy chronic Milly y 2024 12:32pm CONCHA (obstructive sleep apnea) chroni c September 04, 2024 12:32pm Abnormal electrocardiogram acute September 21, 2024 1:57pm Dyspnea on exertion acute August 252024 1:57pm Essential hypertension chronic Ma y 2024 1:57pm Heart failure with preserved ejection fraction, NYHA class II chronic September 21, 2024 1 :57pm History of left heart catheterization (LHC) January, chronic September 21, 2024 1:57pm Mixed hyperlipidemia chronic September 21, 2024 1:57pm PAF (paroxysmal atrial fibrillation) chronic September 21, 2024 1 :57pm [facility] Work Phone: 1(784) 449-377302-18-2025 History of Present illness Narrative* Reef Kamilla Sky, RT(R) - 06/12/2024 3:20 PM EST Radiology Service Progress Note DATE OF SERVICE: June 12, 2024 TIME: 3:56 PM PATIENT IDENTITY VERIFICATION COMPLETED USING TWO (2) STANDARD IDENTIFIERS: Name and Date of confirmed by patient verbally. FALL SCREENING: Has the patient had 2 falls in the last year or 1 fall with injury or currently using an Ambulatory Assistive Device (Walker, Cane, Wheelchair, Crutches, etc.)? No PATIENT GENDER DATA: Assigned male at PATIENT RELEVANT IMPLANT DATA REVIEWED: Yes PATIENT PRESENTS WITH AN IMPLANTABLE OR ATTACHED CHINA PAINTER: No ALLERGIES: Reviewed and unchanged CONTRAST ALLERGY: NO. EXAM: CT -CONTRAST INDUCED NEPHROPATHY RISK FACTORS: Patient age > 60 years CREATININE: Creatinine Date Value Ref Range Status 06/06/2024 0.72 (L) 0.73 - 1.22 mg/dL Final 05/09/2024 0.76 0.73 - 1.22 mg/dL Final 04/11/2024 0.77 0.73 - 1.22 mg/dL Final Estimated Glomerular Filtration Rate Date Value Ref Range Status 06/06/2024 97 >=60 mL/min/1.73m Final Comment: Estimated Glomerular Filtration Rate (eGFR) is calculated using the 2020 CKD-EPI creatinine equation. This equation utilizes serum creatinine, sex, and age as parameters. The creatinine assay has traceable calibration to isotope dilution- mass spectrometry. Refer to KDIGO guidelines for clinical interpretation. In patients with unstable renal function, e.g. those with acute kidney injury, the eGFRmay not accurately reflect actual GFR. eGFR- Date Value Ref Range Status 01/27/2021 >60 Final P.O.C.T. RESULTS: POC done: Yes, See Lab Tab June 12, 2024 TREATMENT: N/A PERIPHERAL IV DATA: Ambulatory: A peripheral IV was started in the Left antecubital site with a Angio cath: 22 gauge. RADIOLOGY DEPARTMENT: CT; Exam(s) Completed: Abdomen/Pelvis SIGNATURE: RT Bob(R) PATIENT NAME: Cyn James JR DATE: June 12, 2024 TIME: 3:56 PM documented in this encounter[facility]02-18-2025 [facility]02-12[facility] NoteHNO ID: [id number] Author: ZULAY RASMUSSEN RN Service: ? Author Type: Registered Nurse Type: Progress Notes Filed: 06/06/2024 12:05 Note Text: OV prior to tx. [facility]ulay Rasmussen [facility] History of Present illness Narrative* Zulay Rasmussen RN - 06/06/2024 12:03 PM EST OV prior to tx. Zulay Rasmussen RN documented in this encounterEast [facility]02-12-2025 [facility]02-12-[facility]25 History of Present illness Narrative* Katey Booker DO - 06/06/2024 10:51 AM EST Diagnosis: 1) IgA lambda multiple myeloma. 2) High risk stage II colon cancer. HPI: The patient is a 74 yo male with PMH significant for DM (peripheral sensory neuropathy) CKD stage I, psoriasis, mixed hyperlipidemia, HTN (essential). He had a several year history of diabetes and established with Dr. Vega about 3 years prior to initial consultation here. A chemistry panel revealed an increase in the globulin fraction and therefore a serum protein electrophoresis and immunofixation was obtained. The patient was found to have a low level IgA lambda monoclonal protein with the M spike quantified at 0.7 g/dL. Urine protein electrophoresis was noted to have an atypical gamma without any quantification. The patient's serum chemistries were significant for creatinine of 1.0 mg/dL and a calcium of 8.6 mg/dL. The total protein was 7.8 g/dL with an albumin of 3.2 g/dL and a globulin fraction of 4.6 g/dL yielding an A/G ratio 0.7. Hepatocellular enzymes were normal. Sister diagnosed with retro-orbital lymphoma. Patient had daughter who at age 24 in 2003 from acute leukemia. Previous therapy: 1) VRd. Began 10/28. Current therapy: 1) Dd. x1 cycle. He had onset of dyspnea during the first week. Went to the ED and had CTA of chest ruled out PE. Was using his home oxygen which previously he only used at night when he felt he needed it. Was told he has mild COPD and asthma on top of it. He went back to the ED at [facility] 12/16 for worsening dyspnea. He was diagnosed with acute on chronic heart failure. BNP was elevated on presentation. CTA of the chest showed no evidence of PE. He was noted to have new moderate bilateral effusions and bilateral compressive atelectasis. He has preserved ejection fraction. Initially treated with furosemide drip. 2D echo demonstrated an EF of 70%. Symptoms improved but he was noted to be anemic and had a positive stool sample for occult blood. Underwent EGD which demonstrated severe erosive gastritis and 2 bleeding angiodysplastic lesions in the stomach which were treated with heater probe. He also had duodenitis which was biopsied. He was treated with pantoprazole 40 mg twice daily. He was able to taper oxygen down to 2 L and was discharged in 12/20. Underwent robotic laparoscopic sigmoid colectomy with colorectal anastomosis on 05/10/2023. Pathology: A. Colon, sigmoid, robotic laparoscopic colectomy -Invasive adenocarcinoma, moderately differentiated, 8.2 cm, extending into pericolonic tissue (seecomment) -Surgical margins negative for carcinoma and high-grade dysplasia -Negative for metastasis in thirty-four of thirty-four pericolic lymph nodes (0/34) B. Colon, distal donut, excision -Colonic mucosa with no significant pathologic abnormality Diagnosis Comment Microscopic examination demonstrates a moderately differentiated invasive adenocarcinoma, extendinginto pericolonic tissue. There is extensive abscess formation associated with gross/macroscopic tumor perforation and an exuberant pericolonic inflammatory response that is undermining the tumor. There is no tumor identified within the abscess cavity itself or at the site of perforation, consistentwith a pT3 staging classification. A. Colon, sigmoid, robotic laparoscopic colectomy -Invasive adenocarcinoma, moderately differentiated, 8.2 cm, extending into pericolonic tissue (seecomment) -Surgical margins negative for carcinoma and high-grade dysplasia -Negative for metastasis in thirty-four of thirty-four pericolic lymph nodes (0/34) B. Colon, distal donut, excision -Colonic mucosa with no significant pathologic abnormality Diagnosis Comment Microscopic examination demonstrates a moderately differentiated invasive adenocarcinoma, extendinginto pericolonic tissue. There is extensive abscess formation associated with gross/macroscopic tumor perforation and an exuberant pericolonic inflammatory response that is undermining the tumor. There is no tumor identified within the abscess cavity itself or at the site of perforation, consistentwith a pT3 staging classification. COLON AND RECTUM: Resection, Including Transanal Disk Excision of Rectal Neoplasms 8th Edition - Protocol posted: 10/14/2021 COLON AND RECTUM: RESECTION - A SPECIMEN Procedure Sigmoidectomy TUMOR Tumor Site Sigmoid colon Histologic Type Adenocarcinoma Histologic Grade G2, moderately differentiated Tumor Size Greatest dimension (Centimeters): 8.2 cm Tumor Extent Invades through muscularis propria into the pericolonic or perirectal tissue Macroscopic Tumor Perforation Present Lymphovascular Invasion Not identified Perineural Invasion Not identified Treatment Effect No known presurgical therapy MARGINS Margin Status for Invasive Carcinoma All margins negative for invasive carcinoma Closest Margin(s) to Invasive Carcinoma mesorectal margin Distance from Invasive Carcinoma to Closest Margin 2.1 cm Margin Status for Non-Invasive Tumor All margins negative for high-grade dysplasia / intramucosal carcinoma and low-grade dysplasia REGIONAL LYMPH NODES Regional Lymph Node Status All regional lymph nodes negative for tumor Number of Lymph Nodes Examined 34 Tumor Deposits Not identified PATHOLOGIC STAGE CLASSIFICATION (pTNM, AJCC 8th Edition) Reporting of pT, pN, and (when applicable) pM categories is based on information available to the pathologist at the time the report is issued. As per the AJCC (Chapter 1, 8th Ed.) it is the managingphysician s responsibility to establish the final pathologic stage based upon all pertinent information, including but potentially not limited to this pathology report. pT Category pT3 pN Category pN0 Results Mismatch Repair Protein Immunohistochemistry Results: MLH1: Normal/Intact Nuclear Expression PMS2: Normal/Intact Nuclear Expression MSH2: Normal/Intact Nuclear Expression MSH6: Normal/Intact Nuclear Expression Presents for ongoing oncologic management. Interim history: Hospitalized 05/17 through 05/[address] of the chest revealed no pulmonary embolism. There was bronchial wall thickening along with small bilateral pleural effusion and atelectasis and mild patchy tree-in-bud opacities in the left upperlobe along with some patchy opacities in left lower lobe. Nasal swab was negative for COVID, influenza and RSV. Urine was negative for Legionella and streptococcal pneumonia antigen. Discharged on Levaquin and he has resumed home O2. Still feels fatigued. Not short of breath at rest using oxygen. Dyspnea with exertion. Several months ago he developed right parathoracic pain around T8-T10. Was really severe. Since then pain has migrated more laterally. No change in symptoms from sensory neuropathy: Doesn't drive due to baseline neuropathy of the feet. Extends prison up the LEs b/l--stable. Fingers tingle and numb. On gabapentin for low back pain. PMH, medications and allergies personally reviewed by me today. Any changes documented in appropriate section. PHYSICAL EXAM: Vitals: Blood pressure 134/66, pulse 74, temperature 36.9 C (98.5 F), temperature source Temporal, weight (!) 142.4 kg (314 lb), SpO2 91%.Well- appearing and in no acute distress. EYES: Sclerae are anicteric bilaterally. LYMPHATIC: There is no palpable cervical or supraclavicular adenopathy. CARDIOVASCULAR: Rhythm is regular. ABDOMEN: The abdomen is nondistended. Extremities: No swelling or edema. SKIN: No jaundice or rash. LABS: IMAGING: Whole-body PET 09/06/2022 demonstrated scattered increase areas of FDG uptake in the thoracic and lumbar spine as well as the right iliac wing, posterior ilium and left acetabulum. Calculated maximum SUV was 4.2. This fulfilled quantitative criteria for viable osseous neoplasm. PATHOLOGY: BM biopsy 09/22/2022: A-C. Bone marrow, aspirate smear and core biopsy, with clot section: - Lambda monotypic plasma cell neoplasm involving ~20% of the marrow cellularity. - See comment. D. Peripheral blood smear: - Neutrophilic leukocytosis. - Normocytic anemia. - Mild thrombocytosis. FISH from 2019: RESULT: ABNORMAL hybridization pattern (see interpretation). Anomaly Result 1p32 (CDKN2C): Normal pattern 1q21 (CKS1B): Normal pattern +9 (CEP9): Normal pattern t(11;14)(q13;q32)(IGH/CCND1): Positive (78/100) 13q14 (RB1): Normal pattern 14q32 (IGH): Positive for IGH translocation (78/100) +15 (CEP15): Normal pattern 17p13 (TP53): Normal pattern INTERPRETATION: These findings demonstrate a plasma cell population with t(11;14)/IGH-CCND1. These findings are consistent with the presence of a plasma cell neoplasm. In plasma cell myeloma, these findings are associated with standard risk disease. Correlation with metaphase cytogenetic analysis is suggested. 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 -Initial bone marrow biopsy 20% PCs in the core specimen. -PET 2019 revealed no suspicious skeletal lesions. -PET 08/2022 indicated lesions defining multiple myeloma. -Bone marrow--still had about 20% PCs. -Standard risk disease by FISH panel 2019. -Significant baseline sensory neuropathy. -Myeloma frailty score is 1 (intermediate). -He was not a candidate for transplant given his other comorbid conditions. He said he wouldn't want to undergo ASCT if medically cleared to do so. -Devious episode decompensated CHF (diastolic dysfunction). -Had worsening neuropathy from bortezomib. -Tolerating daratumumab well. Therapy was on hold a while for colon cancer surgery. -I reviewed the above lab work with him. Now in CR (without bone marrow confirmation). -Tolerating treatment overall very well. -He is very prone to lower respiratory tract infections. Underlying emphysema. Again reviewed trendin his IgG and explained that if level goes under 400 mg/dL then he would be a candidate for IVIG. -I reviewed the CT chest images from [facility]. Reviewed plain film recently performed. Definitely has degenerative changes along the thoracic vertebral column. No obvious lytic lesions on CT bone windows both cross-sectional and sagittal views. Plan: -Continue acyclovir. -Continue holding lenalidomide, but will restart if progresses. -Dexamethasone 8 mg PO weekly due to exacerbation of blood glucose at higher doses.. -Monthly monitoring of serum monoclonal protein and light chains. -Continue PPI since continuing dexamethasone. -Continue monitoring counts monthly and iron levels (as indicated). -Continued follow-up with his PCP and refuse driver. -Okay for Zometa today. Then every 3 months. (C18.7) Cancer of sigmoid colon (HCC) (S31.109A) Open wound of abdominal wall, initial encounter Assessment: -pT3 N0 M0 G2 stage IIA adenocarcinoma of the sigmoid colon. -pMMR. -High risk feature of macroscopic tumor perforation. -Tumor budding not reported. Plan: -Screening colonoscopy due. -CT A/P. Just had CT chest at [facility]. -If no evident cause of the right rib pain on CT then PET scan. Low back pain. -Continue with CPM. Portions of this documentation were copied and pasted from my previous office visit note dated 04/11/2024 in order to provide a cohesive continuity of the history. The note has been reviewed and edited and updated as necessary. Katey Booker DO documented in this encounterEast [facility]02-07-2025 Evaluation note* Diagnosis Onset Date Resolution Status Admit Date 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 June 01, 2024 3:31pm Essential hypertension chronic Fe bruary 2024 3:31pm Heart failure with preserved ejection fraction, NYHA class II chronic June 01 3:31pm Mixed hyperlipidemia chronic Febr uary 2024 3:31pm Multiple myeloma chronic June 01, 2024 3:31pm PAF (paroxysmal atrial fibrillation) chronic June 01 3:31pm COPD (chronic obstructive pulmonary disease) chronic May 3:13pm Heart failure with preserved ejection fraction, NYHA class II chronic June 07, 025 3:13pm Hypoxia chronic June 07, 2024 3:13pm Obesity chronic June 07, 2024 3:13pm CONCHA (obstructive sleep apnea) chroni c June 07, 2024 3:13pm PAF (paroxysmal atrial fibrillation) chronic June 07, 025 3:13pm Community acquired pneumonia acute June 13, 2024 12:27pm Essential hypertension chronic Fe bruary 2024 12:27pm Heart failure with preserved ejection fraction, NYHA class II chronic June 13 025 12:27pm PAF (paroxysmal atrial fibrillation) chronic June 13 025 12:27pm Spondylolisthesis, lumbar region acute July 18, 2024 10:27am COPD (chronic obstructive pulmonary disease) chronic July 18, 025 10:27am Diabetes mellitus chronic June 242024 10:27am Hypoxia chronic July 18 10:27am Mixed hyperlipidemia chronic [facility] 2024 10:27am Multiple myeloma chronic July 182024 10:27am Obesity chronic July 18 10:27am PAF (paroxysmal atrial fibrillation) chronic July 18, 2024 10:27am Leukocytosis acute August 01, 025 2:07pm Acute dyspnea resolved August 01, 2024 2:07pm Acute on chronic heart failu re with preserved ejection fraction resolved August 01, 2024 2:07pm CHF (congestive heart failure) resol goran August 01, 2024 2:07pm Elevated troponin resolved August 012024 2:07pm Hypoxia resolved August 01 2:07pm Chronic a-fib inactive August 01, 2024 2:07pm Chronic anticoagulation inactive A pril 2024 2:07pm History of COPD inactive July 2:07pm History of multiple myeloma inactive August 01, 2024 2:07pm Microcytic anemia inactive August 012024 2:07pm Dyspnea on exertion acute August 14, 2024 1:28pm Essential hypertension chronic Ap ril 2024 1:28pm Heart failure with preserved ejection fraction, NYHA class II chronic Ling 22nd, 2025 1:28pm Multiple myeloma chronic August 142024 1:28pm COPD (chronic obstructive pulmonary disease) chronic September 04 12:32pm Heart failure with preserved ejection fraction, NYHA class II chronic September 04, 2024 1 2:32pm On home oxygen therapy chronic Ma 2024 12:32pm CONCHA (obstructive sleep apnea) chroni c September 04, 2024 12:32pm [facility] Work Phone: 1(345) 805-990602-07-2025 Evaluation note* Diagnosis Onset Date Resolution Status Admit Date 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 June 01, 2024 3:31pm Essential hypertension chronic 2024 3:31pm Heart failure with preserved ejection fraction, NYHA class II chronic June 01 3:31pm Mixed hyperlipidemia chronic [facility]2024 3:31pm Multiple myeloma chronic June 01, 2024 3:31pm PAF (paroxysmal atrial fibrillation) chronic June 01 3:31pm COPD (chronic obstructive pulmonary disease) chronic May 3:13pm Heart failure with preserved ejection fraction, NYHA class II chronic June 07, 2 025 3:13pm Hypoxia chronic June 07, 2024 3:13pm Obesity chronic June 07, 2024 3:13pm CONCHA (obstructive sleep apnea) chroni c June 07, 2024 3:13pm PAF (paroxysmal atrial fibrillation) chronic June 07, 2 025 3:13pm Community acquired pneumonia acute June 13, 2024 12:27pm Essential hypertension chronic 2024 12:27pm Heart failure with preserved ejection fraction, NYHA class II chronic June 13, 2 025 12:27pm PAF (paroxysmal atrial fibrillation) chronic June 13, 2 025 12:27pm Spondylolisthesis, lumbar region acute July 18, 2024 10:27am COPD (chronic obstructive pulmonary disease) chronic July 18, 2 025 10:27am Diabetes mellitus chronic June 242024 10:27am Hypoxia chronic July 18 10:27am Mixed hyperlipidemia chronic [facility] 2024 10:27am Multiple myeloma chronic July 182024 10:27am Obesity chronic July 18 10:27am PAF (paroxysmal atrial fibrillation) chronic July 18, 2024 10:27am Leukocytosis acute August 01, 2 025 2:07pm Acute dyspnea resolved August 01, 2024 2:07pm Acute on chronic heart failu re with preserved ejection fraction resolved August 01, 2024 2:07pm CHF (congestive heart failure) resol goran August 01, 2024 2:07pm Elevated troponin resolved August 012024 2:07pm Hypoxia resolved August 01 2:07pm Chronic a-fib inactive August 01, 2024 2:07pm Chronic anticoagulation inactive A pril 2024 2:07pm History of COPD inactive July 2:07pm History of multiple myeloma inactive August 01, 2024 2:07pm Microcytic anemia inactive August 012024 2:07pm Dyspnea on exertion acute August 14, 2024 1:28pm Essential hypertension chronic Ap ril 2024 1:28pm Heart failure with preserved ejection fraction, NYHA class II chronic August 14, 2024 1:28pm Multiple myeloma chronic August 142024 1:28pm COPD (chronic obstructive pulmonary disease) chronic September 04 12:32pm Heart failure with preserved ejection fraction, NYHA class II chronic September 04, 2024 1 2:32pm On home oxygen therapy chronic Ma y 2024 12:32pm CONCHA (obstructive sleep apnea) chroni c September 04, 2024 12:32pm PAF (paroxysmal atrial fibrillation) chronic September 21, 2024 1 :57pm [employer] Work Phone: [phone] Telephone encounter Note* Telephone Encounter - Adela Ho - 05/23/2024 3:50 PM EST I called and spoke to [facility] and rescheduled his CT scan to 05/31/24, he confirmed this date/time Adela Underwood [facility]01-29-2025 Miscellaneous Notes* Telephone Encounter - Adela Ho - 05/23/2024 3:50 PM EST I called and spoke to Maricel and rescheduled his CT scan to 05/31/24, he confirmed this date/time Adela Dixon Pss * Telephone Encounter - Katey Booker DO - 05/23/2024 2:42 PM EST Can let him know I spoke with Dr. Oconnor who is his chronic picture painter. Evidently Maricel has been having more right upper abdominal/lateral/flank pain. I would like to move his CT scansup prior to the OV he has with me scheduled in May. Katey Booker DO [facility] Telephone encounter Note * Telephone Encounter - Katey Booker DO - 05/23/2024 2:42 PM EST Can let him know I spoke with Dr. Oconnor who is his chronic picture painter. Evidently Maricel has been having more right upper abdominal/lateral/flank pain. I would like to move his CT scansup prior to the OV he has with me scheduled in May. Katey Booker DO [facility]01-27-2025 [facility]01-23-2025 Evaluation note* Diagnosis Onset Date Resolution Status Admit Date Community acquired pneumonia acute May 17, 2024 4:07pm Hypoxia acute May 17, 2024 4:07pm Type 2 diabetes mellitus acute May 17, 2024 4:07pm Chronic low back pain chronic Tay uary 2024 4:07pm Atrial fibrillation inactive Janua ry 2024 4:07pm Bilateral lower extremity edema inac tive May 17, 2024 4:07pm Pleural effusion, bilateral inactive May 17, 2024 4:07pm COPD (chronic obstructive pulmonary disease) deleted May 17, 2024 4:07pm 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 June 01, 2024 3:31pm Essential hypertension chronic Fe bru2024 3:31pm Heart failure with preserved ejection fraction, NYHA class II chronic June 01 3:31pm Mixed hyperlipidemia chronic 2024 3:31pm Multiple myeloma chronic June 01, 2024 3:31pm PAF (paroxysmal atrial fibrillation) chronic June 01 3:31pm Hypoxia acute June 07, 2024 3:13pm COPD (chronic obstructive pulmonary disease) chronic May 3:13pm Heart failure with preserved ejection fraction, NYHA class II chronic June 07, 2 025 3:13pm Obesity chronic June 07, 2024 3:13pm CONCHA (obstructive sleep apnea) chroni c June 07, 2024 3:13pm PAF (paroxysmal atrial fibrillation) chronic June 07, 2 025 3:13pm Community acquired pneumonia acute June 13, 2024 12:27pm Essential hypertension chronic 2024 12:27pm Heart failure with preserved ejection fraction, NYHA class II chronic June 13, 2 025 12:27pm PAF (paroxysmal atrial fibrillation) chronic June 13, 2 025 12:27pm [facility] Work Phone: 1(721) 372-685001-23-2025 Evaluation note* Diagnosis Onset Date Resolution Status Admit Date Community acquired pneumonia acute May 17, 2024 4:07pm Type 2 diabetes mellitus acute May 17, 2024 4:07pm Chronic low back pain chronic Apr 4:07pm Hypoxia chronic May 17, 2024 4:07pm [facility] 4:07pm Bilateral lower extremity edema inac tive May 17, 2024 4:07pm Pleural effusion, bilateral inactive May 17, 2024 4:07pm COPD (chronic obstructive pulmonary disease) deleted May 17, 2024 4:07pm 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 June 01, 2024 3:31pm Essential hypertension chronic 2024 3:31pm Heart failure with preserved ejection fraction, NYHA class II chronic June 01 3:31pm Mixed hyperlipidemia chronic 2024 3:31pm Multiple myeloma chronic June 01, 2024 3:31pm PAF (paroxysmal atrial fibrillation) June 01 3:31pm COPD (chronic obstructive pulmonary disease) chronic May 3:13pm Heart failure with preserved ejection fraction, NYHA class II chronic February 13th, 2 025 3:13pm Hypoxia chronic June 07, 2024 3:13pm Obesity chronic June 07, 2024 3:13pm CONCHA (obstructive sleep apnea) chroni c June 07, 2024 3:13pm PAF (paroxysmal atrial fibrillation) chronic June 07, 2 025 3:13pm Community acquired pneumonia acute June 13, 2024 12:27pm Essential hypertension 2024 12:27pm Heart failure with preserved ejection fraction, NYHA class II chronic June 13 2 025 12:27pm PAF (paroxysmal atrial fibrillation) chronic June 13 025 12:27pm Spondylolisthesis, lumbar region acute July 18, 2024 10:27am COPD (chronic obstructive pulmonary disease) chronic July 18 10:27am Diabetes mellitus chronic June 242024 10:27am Hypoxia chronic July 18 10:27am Mixed hyperlipidemia [facility] 2024 10:27am Multiple myeloma chronic July 182024 10:27am Obesity chronic July 18 10:27am PAF (paroxysmal atrial fibrillation) chronic July 18, 2024 10:27am [facility] Work Phone: 1(205) 446-702501-23-2025 Evaluation note* Diagnosis Onset Date Resolution Status Admit Date Community acquired pneumonia acute May 17, 2024 4:07pm Type 2 diabetes mellitus acute May 17, 2024 4:07pm Chronic low back pain chronic Apr 4:07pm Hypoxia chronic May 17, 2024 4:07pm [facility] fibrillation [facility] 4:07pm Bilateral lower extremity edema inac tive May 17, 2024 4:07pm Pleural effusion, bilateral inactive May 17, 2024 4:07pm COPD (chronic obstructive pulmonary disease) deleted May 17, 2024 4:07pm 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 June 01, 2024 3:31pm Essential hypertension chronic 2024 3:31pm Heart failure with preserved ejection fraction, NYHA class II chronic June 01 3:31pm Mixed hyperlipidemia chronic 2024 3:31pm Multiple myeloma chronic June 01, 2024 3:31pm PAF (paroxysmal atrial fibrillation) chronic June 01 3:31pm COPD (chronic obstructive pulmonary disease) chronic May 3:13pm Heart failure with preserved ejection fraction, NYHA class II chronic June 07, 2 025 3:13pm Hypoxia chronic June 07, 2024 3:13pm Obesity chronic June 07, 2024 3:13pm CONCHA (obstructive sleep apnea) chroni c June 07, 2024 3:13pm PAF (paroxysmal atrial fibrillation) chronic June 07, 2 025 3:13pm Community acquired pneumonia acute June 13, 2024 12:27pm Essential hypertension chronic Fe bruvaiden 2024 12:27pm Heart failure with preserved ejection fraction, NYHA class II chronic June 13 2 025 12:27pm PAF (paroxysmal atrial fibrillation) chronic June 13 025 12:27pm Spondylolisthesis, lumbar region acute July 18, 2024 10:27am COPD (chronic obstructive pulmonary disease) chronic July 18, 025 10:27am Diabetes mellitus chronic June 242024 10:27am Hypoxia chronic July 18 10:27am Mixed hyperlipidemia chronic [facility] 2024 10:27am Multiple myeloma chronic July 182024 10:27am Obesity chronic July 18 10:27am PAF (paroxysmal atrial fibrillation) chronic July 18, 2024 10:27am Acute dyspnea acute August 01, 2024 2:07pm CHF (congestive heart failure) acute August 01, 2024 2:07pm Chronic anticoagulation acute A pril 2024 2:07pm Elevated troponin acute August 012024 2:07pm History of multiple myeloma acute August 01, 2024 2:07pm Hypoxia acute August 01 2:07pm Chronic a-fib chronic August 01, 2024 2:07pm History of COPD chronic July 2:07pm [facility] Work Phone: 1(988) 877-705701-23-2025 Evaluation note* Diagnosis Onset Date Resolution Status Admit Date Community acquired pneumonia acute May 17, 2024 4:07pm Type 2 diabetes mellitus acute May 17, 2024 4:07pm Chronic low back pain chronic Tay [facility] 2024 4:07pm Hypoxia chronic May 17, 2024 4:07pm Atrial fibrillation inactive Janua ry 2024 4:07pm Bilateral lower extremity edema inac tive May 17, 2024 4:07pm Pleural effusion, bilateral inactive May 17, 2024 4:07pm COPD (chronic obstructive pulmonary disease) deleted May 17, 2024 4:07pm 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 June 01, 2024 3:31pm Essential hypertension chronic Fe bruary 2024 3:31pm Heart failure with preserved ejection fraction, NYHA class II chronic June 01 3:31pm Mixed hyperlipidemia chronic Febr uary 2024 3:31pm Multiple myeloma chronic June 01, 2024 3:31pm PAF (paroxysmal atrial fibrillation) chronic June 01 3:31pm COPD (chronic obstructive pulmonary disease) chronic May 3:13pm Heart failure with preserved ejection fraction, NYHA class II chronic June 07, 2 025 3:13pm Hypoxia chronic June 07, 2024 3:13pm Obesity chronic June 07, 2024 3:13pm CONCHA (obstructive sleep apnea) chroni c June 07, 2024 3:13pm PAF (paroxysmal atrial fibrillation) chronic June 07, 2 025 3:13pm Community acquired pneumonia acute June 13, 2024 12:27pm Essential hypertension chronic bruvaiden 2024 12:27pm Heart failure with preserved ejection fraction, NYHA class II chronic June 13, 2 025 12:27pm PAF (paroxysmal atrial fibrillation) chronic June 13, 2 025 12:27pm Spondylolisthesis, lumbar region acute July 18, 2024 10:27am COPD (chronic obstructive pulmonary disease) chronic July 18, 2 025 10:27am Diabetes mellitus chronic June 242024 10:27am Hypoxia chronic July 18 10:27am Mixed hyperlipidemia chronic [facility] 2024 10:27am Multiple myeloma chronic July 182024 10:27am Obesity chronic July 18 10:27am PAF (paroxysmal atrial fibrillation) chronic July 18, 2024 10:27am Acute dyspnea acute August 01, 2024 2:07pm Acute on chronic heart failu re with preserved ejection fraction acute August 01, 2024 2:07pm CHF (congestive heart failure) acute August 01, 2024 2:07pm Chronic anticoagulation acute A pril 2024 2:07pm Elevated troponin acute August 012024 2:07pm History of multiple myeloma acute August 01, 2024 2:07pm Hypoxia acute August 01 2:07pm Leukocytosis acute August 01, 2 025 2:07pm Microcytic anemia acute August 012024 2:07pm Chronic a-fib chronic August 01, 2024 2:07pm History of COPD chronic July 2:07pm [facility] Work Phone: 1(725) 778-130001-23-2025 Evaluation note* Diagnosis Onset Date Resolution Status Admit Date Community acquired pneumonia acute May 17, 2024 4:07pm Type 2 diabetes mellitus acute May 17, 2024 4:07pm Chronic low back pain chronic Apr 4:07pm Hypoxia chronic May 17, 2024 4:07pm [facility] 4:07pm Bilateral lower extremity edema inac tive May 17, 2024 4:07pm Pleural effusion, bilateral inactive May 17, 2024 4:07pm COPD (chronic obstructive pulmonary disease) deleted May 17, 2024 4:07pm 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 June 01, 2024 3:31pm Essential hypertension chronic 2024 3:31pm Heart failure with preserved ejection fraction, NYHA class II chronic June 01 3:31pm Mixed hyperlipidemia chronic 2024 3:31pm Multiple myeloma chronic June 01, 2024 3:31pm PAF (paroxysmal atrial fibrillation) June 01 3:31pm COPD (chronic obstructive pulmonary disease) chronic May 3:13pm Heart failure with preserved ejection fraction, NYHA class II chronic June 07, 2 025 3:13pm Hypoxia chronic June 07, 2024 3:13pm Obesity chronic June 07, 2024 3:13pm CONCHA (obstructive sleep apnea) chroni c June 07, 2024 3:13pm PAF (paroxysmal atrial fibrillation) chronic June 07, 2 025 3:13pm Community acquired pneumonia acute June 13, 2024 12:27pm Essential hypertension chronic Fe bruvaiden 2024 12:27pm Heart failure with preserved ejection fraction, NYHA class II chronic June 13 025 12:27pm PAF (paroxysmal atrial fibrillation) chronic June 13 025 12:27pm Spondylolisthesis, lumbar region acute July 18, 2024 10:27am COPD (chronic obstructive pulmonary disease) chronic July 18, 025 10:27am Diabetes mellitus chronic June 242024 10:27am Hypoxia chronic July 18 10:27am Mixed hyperlipidemia chronic Eric h 2024 10:27am Multiple myeloma chronic July 182024 10:27am Obesity chronic July 18 10:27am PAF (paroxysmal atrial fibrillation) chronic July 18, 2024 10:27am Leukocytosis acute August 01 2:07pm Acute dyspnea resolved August 01, 2024 2:07pm Acute on chronic heart failu re with preserved ejection fraction resolved August 01, 2024 2:07pm CHF (congestive heart failure) resol goran August 01, 2024 2:07pm Elevated troponin resolved August 012024 2:07pm Hypoxia resolved August 01 2:07pm Chronic a-fib inactive August 01, 2024 2:07pm Chronic anticoagulation inactive A pril 2024 2:07pm History of COPD inactive July 2:07pm History of multiple myeloma inactive August 01, 2024 2:07pm Microcytic anemia inactive August 012024 2:07pm Dyspnea on exertion acute August 14, 2024 1:28pm Essential hypertension chronic Ap ril 2024 1:28pm Heart failure with preserved ejection fraction, NYHA class II chronic August 14, 2024 1:28pm Multiple myeloma chronic August 142024 1:28pm Wheeze acute September 04, 2024 12:32pm [employer] [employer] Work Phone: 1(171) 470-886301-23-2025 Evaluation note* Diagnosis Onset Date Resolution Status Admit Date Community acquired pneumonia acute May 17, 2024 4:07pm Type 2 diabetes mellitus acute May 17, 2024 4:07pm Chronic low back pain chronic Apr 4:07pm Hypoxia chronic May 17, 2024 4:07pm Atrial fibrillation inactive 2024 4:07pm Bilateral lower extremity edema inac tive May 17, 2024 4:07pm Pleural effusion, bilateral inactive May 17, 2024 4:07pm COPD (chronic obstructive pulmonary disease) deleted May 17, 2024 4:07pm 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 June 01, 2024 3:31pm Essential hypertension chronic [facility] 2024 3:31pm Heart failure with preserved ejection fraction, NYHA class II chronic June 01 3:31pm Mixed hyperlipidemia chronic Febr uary 2024 3:31pm Multiple myeloma chronic June 01, 2024 3:31pm PAF (paroxysmal atrial fibrillation) chronic June 01 3:31pm COPD (chronic obstructive pulmonary disease) chronic May 3:13pm Heart failure with preserved ejection fraction, NYHA class II chronic June 07, 2 025 3:13pm Hypoxia chronic June 07, 2024 3:13pm Obesity chronic June 07, 2024 3:13pm CONCHA (obstructive sleep apnea) chroni c June 07, 2024 3:13pm PAF (paroxysmal atrial fibrillation) chronic June 07, 2 025 3:13pm Community acquired pneumonia acute June 13, 2024 12:27pm Essential hypertension chronic [facility] 2024 12:27pm Heart failure with preserved ejection fraction, NYHA class II chronic June 13, 2 025 12:27pm PAF (paroxysmal atrial fibrillation) chronic June 13, 2 025 12:27pm Spondylolisthesis, lumbar region acute July 18, 2024 10:27am COPD (chronic obstructive pulmonary disease) chronic July 18, 2 025 10:27am Diabetes mellitus chronic June 242024 10:27am Hypoxia chronic July 18 10:27am Mixed hyperlipidemia chronic [facility] 2024 10:27am Multiple myeloma chronic July 182024 10:27am Obesity chronic July 18 10:27am PAF (paroxysmal atrial fibrillation) chronic July 18, 2024 10:27am Leukocytosis acute August 01, 2 025 2:07pm Acute dyspnea resolved August 01, 2024 2:07pm Acute on chronic heart failu re with preserved ejection fraction resolved August 01, 2024 2:07pm CHF (congestive heart failure) resol goran August 01, 2024 2:07pm Elevated troponin resolved August 012024 2:07pm Hypoxia resolved August 01 2:07pm Chronic a-fib inactive August 01, 2024 2:07pm Chronic anticoagulation inactive A pril 2024 2:07pm History of COPD inactive July 2:07pm History of multiple myeloma inactive August 01, 2024 2:07pm Microcytic anemia inactive August 012024 2:07pm Dyspnea on exertion acute August 14, 2024 1:28pm Essential hypertension chronic Ap ril 2024 1:28pm Heart failure with preserved ejection fraction, NYHA class II chronic August 14, 2024 1:28pm Multiple myeloma chronic August 142024 1:28pm COPD (chronic obstructive pulmonary disease) chronic September 04 12:32pm Heart failure with preserved ejection fraction, NYHA class II chronic September 04, 2024 1 2:32pm On home oxygen therapy chronic Ma y 2024 12:32pm CONCHA (obstructive sleep apnea) chroni c September 04, 2024 12:32pm [facility] Work Phone: 1(996) 305-988101-15-2025 [facility] of Present illness Narrative* David Mckinney - 05/09/2024 10:05 AM EST Diagnosis: 1) IgA lambda multiple myeloma. 2) High risk stage II colon cancer. HPI: The patient is a 74 yo male with PMH significant for DM (peripheral sensory neuropathy) CKD stage I, psoriasis, mixed hyperlipidemia, HTN (essential). He had a several year history of diabetes and established with Dr. Vega about 3 years prior to initial consultation here. A chemistry panel revealed an increase in the globulin fraction and therefore a serum protein electrophoresis and immunofixation was obtained. The patient was found to have a low level IgA lambda monoclonal protein with the M spike quantified at 0.7 g/dL. Urine protein electrophoresis was noted to have an atypical gamma without any quantification. The patient's serum chemistries were significant for creatinine of 1.0 mg/dL and a calcium of 8.6 mg/dL. The total protein was 7.8 g/dL with an albumin of 3.2 g/dL and a globulin fraction of 4.6 g/dL yielding an A/G ratio 0.7. Hepatocellular enzymes were normal. Sister diagnosed with retro-orbital lymphoma. Patient had daughter who at age 24 in 2003 from acute leukemia. Previous therapy: 1) VRd. Began 10/28. Current therapy: 1) Dd. x1 cycle. He had onset of dyspnea during the first week. Went to the ED and had CTA of chest ruled out PE. Was using his home oxygen which previously he only used at night when he felt he needed it. Was told he has mild COPD and asthma on top of it. He went back to the ED at [facility] 12/16 for worsening dyspnea. He was diagnosed with acute on chronic heart failure. BNP was elevated on presentation. CTA of the chest showed no evidence of PE. He was noted to have new moderate bilateral effusions and bilateral compressive atelectasis. He has preserved ejection fraction. Initially treated with furosemide drip. 2D echo demonstrated an EF of 70%. Symptoms improved but he was noted to be anemic and had a positive stool sample for occult blood. Underwent EGD which demonstrated severe erosive gastritis and 2 bleeding angiodysplastic lesions in the stomach which were treated with heater probe. He also had duodenitis which was biopsied. He was treated with pantoprazole 40 mg twice daily. He was able to taper oxygen down to 2 L and was discharged in 12/20. Underwent robotic laparoscopic sigmoid colectomy with colorectal anastomosis on 05/10/2023. Pathology: A. Colon, sigmoid, robotic laparoscopic colectomy -Invasive adenocarcinoma, moderately differentiated, 8.2 cm, extending into pericolonic tissue (seecomment) -Surgical margins negative for carcinoma and high-grade dysplasia -Negative for metastasis in thirty-four of thirty-four pericolic lymph nodes (0/34) B. Colon, distal donut, excision -Colonic mucosa with no significant pathologic abnormality Diagnosis Comment Microscopic examination demonstrates a moderately differentiated invasive adenocarcinoma, extendinginto pericolonic tissue. There is extensive abscess formation associated with gross/macroscopic tumor perforation and an exuberant pericolonic inflammatory response that is undermining the tumor. There is no tumor identified within the abscess cavity itself or at the site of perforation, consistentwith a pT3 staging classification. A. Colon, sigmoid, robotic laparoscopic colectomy -Invasive adenocarcinoma, moderately differentiated, 8.2 cm, extending into pericolonic tissue (seecomment) -Surgical margins negative for carcinoma and high-grade dysplasia -Negative for metastasis in thirty-four of thirty-four pericolic lymph nodes (0/34) B. Colon, distal donut, excision -Colonic mucosa with no significant pathologic abnormality Diagnosis Comment Microscopic examination demonstrates a moderately differentiated invasive adenocarcinoma, extendinginto pericolonic tissue. There is extensive abscess formation associated with gross/macroscopic tumor perforation and an exuberant pericolonic inflammatory response that is undermining the tumor. There is no tumor identified within the abscess cavity itself or at the site of perforation, consistentwith a pT3 staging classification. COLON AND RECTUM: Resection, Including Transanal Disk Excision of Rectal Neoplasms 8th Edition - Protocol posted: 10/14/2021 COLON AND RECTUM: RESECTION - A SPECIMEN Procedure Sigmoidectomy TUMOR Tumor Site Sigmoid colon Histologic Type Adenocarcinoma Histologic Grade G2, moderately differentiated Tumor Size Greatest dimension (Centimeters): 8.2 cm Tumor Extent Invades through muscularis propria into the pericolonic or perirectal tissue Macroscopic Tumor Perforation Present Lymphovascular Invasion Not identified Perineural Invasion Not identified Treatment Effect No known presurgical therapy MARGINS Margin Status for Invasive Carcinoma All margins negative for invasive carcinoma Closest Margin(s) to Invasive Carcinoma mesorectal margin Distance from Invasive Carcinoma to Closest Margin 2.1 cm Margin Status for Non-Invasive Tumor All margins negative for high-grade dysplasia / intramucosal carcinoma and low-grade dysplasia REGIONAL LYMPH NODES Regional Lymph Node Status All regional lymph nodes negative for tumor Number of Lymph Nodes Examined 34 Tumor Deposits Not identified PATHOLOGIC STAGE CLASSIFICATION (pTNM, AJCC 8th Edition) Reporting of pT, pN, and (when applicable) pM categories is based on information available to the pathologist at the time the report is issued. As per the AJCC (Chapter 1, 8th Ed.) it is the managingphysician s responsibility to establish the final pathologic stage based upon all pertinent information, including but potentially not limited to this pathology report. pT Category pT3 pN Category pN0 Results Mismatch Repair Protein Immunohistochemistry Results: MLH1: Normal/Intact Nuclear Expression PMS2: Normal/Intact Nuclear Expression MSH2: Normal/Intact Nuclear Expression MSH6: Normal/Intact Nuclear Expression Presents for ongoing oncologic management. Interim history: Mr. James presents today with his daughter. He reports feeling ok today. Still feels some lingering upper respiratory symptoms. Not terrible but RUIZ. No change in symptoms from sensory neuropathy: Still doesn't drive due to baseline neuropathy of the feet. Extends prison up the LEs b/l--stable. Fingers tingle and numb. Following with pain management for chronic low back pain. Worse in mornings. Then gets better throughout the day. Appetite normal. Occasional diarrhea since starting ozempic. Lasts for a day or two following injection. Otherwise no new issues. PMH, medications and allergies personally reviewed by me today. Any changes documented in appropriate section. PHYSICAL EXAM: Vitals: Blood pressure 167/76, pulse 69, temperature 37.1 C (98.8 F), temperature source Temporal, height 174.8 cm (5' 8.8), weight (!) 142.2 kg (313 lb 8 oz), SpO2 90%.Well-appearing and in no acute distress. EYES: Sclerae are anicteric bilaterally. LYMPHATIC: There is no palpable cervical or supraclavicular adenopathy. CARDIOVASCULAR: Rhythm is regular. ABDOMEN: The abdomen is nondistended. Extremities: No swelling or edema. SKIN: No jaundice or rash. I have performed the physical exam today (05/09/2024) and have edited the note to correlate with current findings. LABS: Pending today IMAGING: Whole-body PET 09/06/2022 demonstrated scattered increase areas of FDG uptake in the thoracic and lumbar spine as well as the right iliac wing, posterior ilium and left acetabulum. Calculated maximum SUV was 4.2. This fulfilled quantitative criteria for viable osseous neoplasm. PATHOLOGY: BM biopsy 09/22/2022: A-C. Bone marrow, aspirate smear and core biopsy, with clot section: - Lambda monotypic plasma cell neoplasm involving ~20% of the marrow cellularity. - See comment. D. Peripheral blood smear: - Neutrophilic leukocytosis. - Normocytic anemia. - Mild thrombocytosis. FISH from 2019: RESULT: ABNORMAL hybridization pattern (see interpretation). Anomaly Result 1p32 (CDKN2C): Normal pattern 1q21 (CKS1B): Normal pattern +9 (CEP9): Normal pattern t(11;14)(q13;q32)(IGH/CCND1): Positive (78/100) 13q14 (RB1): Normal pattern 14q32 (IGH): Positive for IGH translocation (78/100) +15 (CEP15): Normal pattern 17p13 (TP53): Normal pattern INTERPRETATION: These findings demonstrate a plasma cell population with t(11;14)/IGH-CCND1. These findings are consistent with the presence of a plasma cell neoplasm. In plasma cell myeloma, these findings are associated with standard risk disease. Correlation with metaphase cytogenetic analysis is suggested. 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 -Initial bone marrow biopsy 20% PCs in the core specimen. -PET 2018 revealed no suspicious skeletal lesions. -PET 08/2022 indicated lesions defining multiple myeloma. -Bone marrow--still had about 20% PCs. -Standard risk disease by FISH panel 2019. -Significant baseline sensory neuropathy. -Myeloma frailty score is 1 (intermediate). -He was not a candidate for transplant given his other comorbid conditions. He said he wouldn't want to undergo ASCT if medically cleared to do so. -Devious episode decompensated CHF (diastolic dysfunction). -Had worsening neuropathy from bortezomib. -Tolerating daratumumab and lenalidomide well. Therapy was on hold a while for colon cancer surgery. -Light chains ratio normal. -Remains in [place]. Tolerating treatment overall very well. Labs pending today -He is very prone to lower respiratory tract infections. Underlying emphysema. Reviewed trend in his IgG. Explained that if he goes under 400 then he would be a candidate for IVIG. Plan: -Continue acyclovir. -Continue holding lenalidomide, but will restart if progresses. -Dexamethasone decreased due to exacerbation of blood glucose at higher doses, still keeps him awake -Monthly monitoring of serum monoclonal protein and light chains. -Continue PPI since continuing dexamethasone. -Continue monitoring counts monthly and iron levels (as indicated). -Continued follow-up with his PCP and refuse driver. -Okay for Zometa every 3 months. (C18.7) Cancer of sigmoid colon (HCC) (S31.109A) Open wound of abdominal wall, initial encounter Assessment: -pT3 N0 M0 G2 stage IIA adenocarcinoma of the sigmoid colon. -pMMR. -High risk feature of macroscopic tumor perforation. -Tumor budding not reported. Plan: -Screening colonoscopy due 04/2024. -CTs around 05/2024, ordered today Low back pain. -Continue with CPM. David Mckinney APRN.ENROUTE CONTROLLER I spent a total of 30 minutes on the date of the service which included preparing to see the patient, [id number] patient care, completing clinical documentation, obtaining and/or reviewing separately obtained history, performing a medically appropriate examination, and ordering medications, tests, or procedures. Portions of this note including HPI, ROS, impression/plan may have been copied forward as to provide important historical information essential in contributing to medical decision making. Documentation has been reviewed and edited as necessary to support clinical decision making for today's visit and to reflect my own independent evaluation of this patient. [facility] History of Present illness Narrative* Katey Booker, DO - 04/11/2024 10:51 AM EST Diagnosis: 1) IgA lambda multiple myeloma. 2) High risk stage II colon cancer. HPI: The patient is a 74 yo male with PMH significant for DM (peripheral sensory neuropathy) CKD stage I, psoriasis, mixed hyperlipidemia, HTN (essential). He had a several year history of diabetes and established with Dr. Vega about 3 years prior to initial consultation here. A chemistry panel revealed an increase in the globulin fraction and therefore a serum protein electrophoresis and immunofixation was obtained. The patient was found to have a low level IgA lambda monoclonal protein with the M spike quantified at 0.7 g/dL. Urine protein electrophoresis was noted to have an atypical gamma without any quantification. The patient's serum chemistries were significant for creatinine of 1.0 mg/dL and a calcium of 8.6 mg/dL. The total protein was 7.8 g/dL with an albumin of 3.2 g/dL and a globulin fraction of 4.6 g/dL yielding an A/G ratio 0.7. Hepatocellular enzymes were normal. Sister diagnosed with retro-orbital lymphoma. Patient had daughter who at age 24 in 2003 from acute leukemia. Previous therapy: 1) VRd. Began 10/28. Current therapy: 1) Dd. x1 cycle. He had onset of dyspnea during the first week. Went to the ED and had CTA of chest ruled out PE. Was using his home oxygen which previously he only used at night when he felt he needed it. Was told he has mild COPD and asthma on top of it. He went back to the ED at [facility] 12/16 for worsening dyspnea. He was diagnosed with acute on chronic heart failure. BNP was elevated on presentation. CTA of the chest showed no evidence of PE. He was noted to have new moderate bilateral effusions and bilateral compressive atelectasis. He has preserved ejection fraction. Initially treated with furosemide drip. 2D echo demonstrated an EF of 70%. Symptoms improved but he was noted to be anemic and had a positive stool sample for occult blood. Underwent EGD which demonstrated severe erosive gastritis and 2 bleeding angiodysplastic lesions in the stomach which were treated with heater probe. He also had duodenitis which was biopsied. He was treated with pantoprazole 40 mg twice daily. He was able to taper oxygen down to 2 L and was discharged in 12/20. Underwent robotic laparoscopic sigmoid colectomy with colorectal anastomosis on 05/10/2023. Pathology: A. Colon, sigmoid, robotic laparoscopic colectomy -Invasive adenocarcinoma, moderately differentiated, 8.2 cm, extending into pericolonic tissue (seecomment) -Surgical margins negative for carcinoma and high-grade dysplasia -Negative for metastasis in thirty-four of thirty-four pericolic lymph nodes (0/34) B. Colon, distal donut, excision -Colonic mucosa with no significant pathologic abnormality Diagnosis Comment Microscopic examination demonstrates a moderately differentiated invasive adenocarcinoma, extendinginto pericolonic tissue. There is extensive abscess formation associated with gross/macroscopic tumor perforation and an exuberant pericolonic inflammatory response that is undermining the tumor. There is no tumor identified within the abscess cavity itself or at the site of perforation, consistentwith a pT3 staging classification. A. Colon, sigmoid, robotic laparoscopic colectomy -Invasive adenocarcinoma, moderately differentiated, 8.2 cm, extending into pericolonic tissue (seecomment) -Surgical margins negative for carcinoma and high-grade dysplasia -Negative for metastasis in thirty-four of thirty-four pericolic lymph nodes (0/34) B. Colon, distal donut, excision -Colonic mucosa with no significant pathologic abnormality Diagnosis Comment Microscopic examination demonstrates a moderately differentiated invasive adenocarcinoma, extendinginto pericolonic tissue. There is extensive abscess formation associated with gross/macroscopic tumor perforation and an exuberant pericolonic inflammatory response that is undermining the tumor. There is no tumor identified within the abscess cavity itself or at the site of perforation, consistentwith a pT3 staging classification. COLON AND RECTUM: Resection, Including Transanal Disk Excision of Rectal Neoplasms 8th Edition - Protocol posted: 10/14/2021 COLON AND RECTUM: RESECTION - A SPECIMEN Procedure Sigmoidectomy TUMOR Tumor Site Sigmoid colon Histologic Type Adenocarcinoma Histologic Grade G2, moderately differentiated Tumor Size Greatest dimension (Centimeters): 8.2 cm Tumor Extent Invades through muscularis propria into the pericolonic or perirectal tissue Macroscopic Tumor Perforation Present Lymphovascular Invasion Not identified Perineural Invasion Not identified Treatment Effect No known presurgical therapy MARGINS Margin Status for Invasive Carcinoma All margins negative for invasive carcinoma Closest Margin(s) to Invasive Carcinoma mesorectal margin Distance from Invasive Carcinoma to Closest Margin 2.1 cm Margin Status for Non-Invasive Tumor All margins negative for high-grade dysplasia / intramucosal carcinoma and low-grade dysplasia REGIONAL LYMPH NODES Regional Lymph Node Status All regional lymph nodes negative for tumor Number of Lymph Nodes Examined 34 Tumor Deposits Not identified PATHOLOGIC STAGE CLASSIFICATION (pTNM, AJCC 8th Edition) Reporting of pT, pN, and (when applicable) pM categories is based on information available to the pathologist at the time the report is issued. As per the AJCC (Chapter 1, 8th Ed.) it is the managingphysician s responsibility to establish the final pathologic stage based upon all pertinent information, including but potentially not limited to this pathology report. pT Category pT3 pN Category pN0 Results Mismatch Repair Protein Immunohistochemistry Results: MLH1: Normal/Intact Nuclear Expression PMS2: Normal/Intact Nuclear Expression MSH2: Normal/Intact Nuclear Expression MSH6: Normal/Intact Nuclear Expression Presents for ongoing oncologic management. Interim history: Cough lingered quite a while. Finally resolved. No change in symptoms from sensory neuropathy: Still doesn't drive due to baseline neuropathy of the feet. Extends prison up the LEs b/l--stable. Fingers tingle and numb. On gabapentin for low back pain. Appetite normal. Formed stools. Occasional constipation. PMH, medications and allergies personally reviewed by me today. Any changes documented in appropriate section. PHYSICAL EXAM: Vitals: Blood pressure 133/76, pulse (!) 57, temperature 36.5 C (97.7 F), temperature source Temporal, weight (!) 142 kg (313 lb), SpO2 91%.Well-appearing and in no acute distress. EYES: Sclerae are anicteric bilaterally. LYMPHATIC: There is no palpable cervical or supraclavicular adenopathy. CARDIOVASCULAR: Rhythm is regular. ABDOMEN: The abdomen is nondistended. Extremities: No swelling or edema. SKIN: No jaundice or rash. LABS: Latest Ref Rng 03/13/2024 WBC 3.70 - 11.00 k/uL 6.96 RBC 4.20 - 6.00 m/uL 5.44 Hemoglobin 13.0 - 17.0 g/dL 13.5 Hematocrit 39.0 - 51.0 % 43.7 MCV 80.0 - 100.0 fL 80.3 MCH 26.0 - 34.0 pg 24.8 (L) MCHC 30.5 - 36.0 g/dL 30.9 RDW-CV 11.5 - 15.0 % 17.9 (H) Platelet Count 150 - 400 k/uL 260 MPV 9.0 - 12.7 fL 9.7 Neut% % 75.4 Abs Neut (ANC) 1.45 - 7.50 k/uL 5.25 Lymph% % 12.8 Abs Lymph 1.00 - 4.00 k/uL 0.89 (L) Radford% % 9.2 Abs Radford <0.87 k/uL 0.64 Eosin% % 1.7 Abs Eosin <0.46 k/uL 0.12 Baso% % 0.3 Abs Baso <0.11 k/uL <0.03 Immature Gran % % 0.6 IMMATURE GRANS (ABS) <0.10 k/uL 0.04 NRBC /100 WBC 0.0 Absolute nRBC <0.01 k/uL <0.01 DTYPE Auto Protein, Total 6.3 - 8.0 g/dL 6.3 Albumin 3.9 - 4.9 g/dL 4.0 Calcium 8.5 - 10.2 mg/dL 9.3 Bilirubin, Total 0.2 - 1.3 mg/dL 0.4 Alkaline Phosphatase 38 - 113 U/L 154 (H) AST 14 - 40 U/L 14 ALT 10 - 54 U/L 17 Glucose 74 - 99 mg/dL 154 (H) BUN 9 - 24 mg/dL 19 Creatinine 0.73 - 1.22 mg/dL 0.74 Sodium 136 - 144 mmol/L 141 Potassium 3.7 - 5.1 mmol/L 4.0 Chloride 98 - 107 mmol/L 108 (H) CO2 22 - 30 mmol/L 23 Anion Gap 8 - 15 mmol/L 10 eGFR >=60 mL/min/1.73m 97 LD 135 - 225 U/L 222 IMAGING: Whole-body PET 09/06/2022 demonstrated scattered increase areas of FDG uptake in the thoracic and lumbar spine as well as the right iliac wing, posterior ilium and left acetabulum. Calculated maximum SUV was 4.2. This fulfilled quantitative criteria for viable osseous neoplasm. PATHOLOGY: BM biopsy 09/22/2022: A-C. Bone marrow, aspirate smear and core biopsy, with clot section: - Lambda monotypic plasma cell neoplasm involving ~20% of the marrow cellularity. - See comment. D. Peripheral blood smear: - Neutrophilic leukocytosis. - Normocytic anemia. - Mild thrombocytosis. FISH from 2019: RESULT: ABNORMAL hybridization pattern (see interpretation). Anomaly Result 1p32 (CDKN2C): Normal pattern 1q21 (CKS1B): Normal pattern +9 (CEP9): Normal pattern t(11;14)(q13;q32)(IGH/CCND1): Positive (78/100) 13q14 (RB1): Normal pattern 14q32 (IGH): Positive for IGH translocation (78/100) +15 (CEP15): Normal pattern 17p13 (TP53): Normal pattern INTERPRETATION: These findings demonstrate a plasma cell population with t(11;14)/IGH-CCND1. These findings are consistent with the presence of a plasma cell neoplasm. In plasma cell myeloma, these findings are associated with standard risk disease. Correlation with metaphase cytogenetic analysis is suggested. 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 -Initial bone marrow biopsy 20% PCs in the core specimen. -PET 2018 revealed no suspicious skeletal lesions. -PET 08/2022 indicated lesions defining multiple myeloma. -Bone marrow--still had about 20% PCs. -Standard risk disease by FISH panel 2019. -Significant baseline sensory neuropathy. -Myeloma frailty score is 1 (intermediate). -He was not a candidate for transplant given his other comorbid conditions. He said he wouldn't want to undergo ASCT if medically cleared to do so. -Devious episode decompensated CHF (diastolic dysfunction). -Had worsening neuropathy from bortezomib. -Tolerating daratumumab and lenalidomide well. Therapy was on hold a while for colon cancer surgery. -Reviewed labs. Immunofixation detecting IgA only with normal lambda light chain. -Light chains ratio normal. -I reviewed the above lab work with him. Remains in [place]. Tolerating treatment overall very well. -He is very prone to lower respiratory tract infections. Underlying emphysema. Reviewed trend in his IgG. Explained that if he goes under 400 then he would be a candidate for IVIG. Plan: -Continue acyclovir. -Continue holding lenalidomide, but will restart if progresses. -Dexamethasone 8 mg PO weekly due to exacerbation of blood glucose at higher doses.. -Monthly monitoring of serum monoclonal protein and light chains. -Continue PPI since continuing dexamethasone. -Continue monitoring counts monthly and iron levels (as indicated). -Continued follow-up with his PCP and refuse driver. -Okay for Zometa today. Then every 3 months. (C18.7) Cancer of sigmoid colon (HCC) (S31.109A) Open wound of abdominal wall, initial encounter Assessment: -pT3 N0 M0 G2 stage IIA adenocarcinoma of the sigmoid colon. -pMMR. -High risk feature of macroscopic tumor perforation. -Tumor budding not reported. Plan: -Screening colonoscopy due 04/2024. -CTs around 05/2024. Low back pain. -Continue with CPM. Portions of this documentation were copied and pasted from my previous office visit note dated 03/13/2024 in order to provide a cohesive continuity of the history. The note has been reviewed and edited and updated as necessary. I spent a total of 20 minutes on the date of the service which included preparing to see the patient, [id number] patient care, completing clinical documentation, counseling and educating the patient/family/caregiver, ordering medications, tests, or procedures, communicating with other HCPs (not separately reported), and communicating results to the patient/family/caregiver. Katey Booker, documented in this encounterEast [facility]11-27-[facility] History of Present illness Narrative* Celeste Uriarte RT(R) - 03/21/2024 8:40 AM EST Radiology Service Progress Note PATIENT NAME: Cyn James JR DATE OF SERVICE: March 21, 2024 TIME: 10:03 AM PATIENT IDENTITY VERIFICATION COMPLETED USING TWO (2) IDENTIFIERS: Name and Date of confirmedby patient verbally. FALL SCREENING: Has the patient had 2 falls in the last year or 1 fall with injury or currently using an Ambulatory Assistive Device (Walker, Cane, Wheelchair, Crutches, etc.)? No PATIENT GENDER DATA: Male PATIENT RELEVANT IMPLANT DATA REVIEWED: Not Applicable PATIENT PRESENTS WITH AN IMPLANTABLE OR ATTACHED [place] PAINTER: No RADIOLOGY DEPARTMENT: General X-ray: Exam(s) Completed: Chest X-Ray PERIPHERAL IV DATA: Not applicable SIGNED BY: RT Gerald(R) March 21, 2024 10:03 AM documented in this encounterEast [facility]11-27-[facility]24 [facility] History of Present illness Narrative* Alec Villela APRN.ENROUTE CONTROLLER - 03/21/2024 8:20 AM EST Subjective HPI Nontoxic-appearing male presents urgent care chief complaint cough. Duration of symptom around 10 days. Associated symptoms cough chest congestion. States was seen here placed on doxycycline negativechest x-ray. States cough is still persistent. Risk factors COPD. is sick male with similar signs symptoms. No fever body aches or chills today. No chest pain or hemoptysis today. Past medical history prescription medications allergies reviewed. .No chief complaint on file. 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 Leukocytosis 05/03/2023 Marijuana user 05/03/2023 Mixed hyperlipidemia Morbid obesity (HCC) 05/03/2023 Multiple myeloma not having achieved remission (HCC) 09/24/2022 On home O2 05/03/2023 CONCHA (obstructive sleep apnea) 05/03/2023 Peripheral sensory neuropathy Psoriasis Red blood cell antibody positive 05/04/2023 Sleep apnea PAST SURGICAL HISTORY Procedure Laterality Date CATARACT EXTRACTION HX 04/25/2013 Left eye FOOT SURGERY HX Left PAST SURGICAL HISTORY OF 02/02/2023 TURP TRANSURETHRAL ELEC-SURG PROSTATECTOM ALLERGIES Penicillins MEDICATIONS calcium carbonate/vitamin D3 (CALCIUM + D ORAL) Take 1 tablet by mouth once daily. potassium chloride ER (KLOR-CON) 20 mEq tablet Take 1 tablet by mouth once daily. gabapentin (NEURONTIN) 300 mg capsule Take 300 mg by mouth two times a day. FIASP FLEXTOUCH U-100 INSULIN 100 unit/mL (3 mL) pen 28 units with breakfast, 46 units with lunch, 54 units with dinner. TRESIBA U-100 INSULIN 100 unit/mL injection 66 units with breakfast, 66 units with dinner, 64 unitsat bedtime. cyclobenzaprine (FLEXERIL) 10 mg tablet Take 1 tablet by mouth three times a day as needed for muscle spasm. iujlfkgkcyn-pkaplrheq-kakrcthc (TRELEGY ELLIPTA) 200-62.5-25 mcg inhalation powder Inhale 1 Puff asinstructed once daily. dexAMETHasone (DECADRON) 4 mg tablet Take 5 tablets with breakfast on day of each daratumuamb treatment. acyclovir (ZOVIRAX) 400 mg tablet Take 1 tablet by mouth two times a day. ondansetron (ZOFRAN) 8 mg tablet Take 1 tablet by mouth every 8 hours as needed for nausea/vomiting. dilTIAZem CD (CARDIZEM CD, CARTIA XT) 240 mg 24 hr capsule Take 1 capsule by mouth once daily. empagliflozin (JARDIANCE) 10 mg tablet Take 10 mg by mouth once daily. acetaminophen (TYLENOL EXTRA STRENGTH) 500 mg tablet Take 1,500 mg by mouth every 8 hours as needed. losartan (COZAAR) 50 mg tablet Take 50 mg by mouth once daily. cholecalciferol (VITAMIN D-3) 50 mcg (2,000 unit) tablet Take 2,000 Units by mouth once daily. magnesium oxide/magnesium (MAGNESIUM OXIDE-MG AA CHELATE ORAL) Take 250 mg by mouth once daily. albuterol HFA (PROVENTIL HFA, VENTOLIN HFA) 90 mcg/actuation inhaler Inhale 1 Puff as instructed asneeded. metFORMIN (GLUCOPHAGE) 1,000 mg tablet Take 1,000 mg by mouth twice daily with meals. atorvastatin (LIPITOR) 20 mg tablet Take 20 mg by mouth once daily. iv contrast (will be provided with radiology test) CT Chest W -Inject, intravenously, once for 1 dose.No IV access, insert saline lock prior to the beginning of sedation, infusion, injection of imaging exam. Discontinue saline lock post exam. If Pt. has a central line or IVAD, may access for administration according to line specific nursing protocol. Once exam is complete flush line and de-accessaccording to line specific nursing protocol in the CT contrast administration guidelines link. iv contrast (will be provided with radiology test) CT ABD/PEL -Inject, intravenously, once for 1 dose.No IV access, insert saline lock prior to the beginning of sedation, infusion, injection of imaging exam. Discontinue saline lock post exam. If Pt. has a central line or IVAD, may access for administration according to line specific nursing protocol. Once exam is complete flush line and de-accessaccording to line specific nursing protocol in the CT contrast administration guidelines link. enteric contrast (will be provided with radiology test) For CT ABD/PEL W IVCON Routine order Administer, As Directed One Time Only, via Oral, Rectal, both Oral and Rectal, Enteric Tube, Stoma or Indwelling Catheter, Enteric Contrast as designated per enteric contrast guidelines INV SEMAGLUTIDE, OZEMPIC,, 2 MG/1.5 ML, PEN (IRB 20-853) Inject 0.5 mg subcutaneously one time a week. For Investigation Drug Use Only. PI: Dr. Aleks Finn torsemide (DEMADEX) 10 mg tablet Take 10 mg by mouth once daily as needed. pantoprazole DR (PROTONIX) 40 mg tablet Take 40 mg by mouth once daily. (Patient not taking: Reported on 03/12/2024) OMEGA-3 FATTY ACIDS ORAL Take 1 tablet by mouth once daily. insulin aspart U-100 (NOVOLOG U-100 INSULIN ASPART) 100 unit/mL soln Take 26 units with breakfast, 42 units at lunch, 46 units at dinner, zero at bedtime insulin detemir U-100 (LEVEMIR) 100 unit/mL injection 70 breakfast, 70 lunch, and 74 bedtime. FAMILY HISTORY Problem Relation Age of Onset Diabetes Father 86 d/t liver failure Breast Cancer Mother 65 Living Cancer Sister ? Lymphoma Diabetes Maternal Grandmother Diabetes Paternal Grandmother Anesthesia Problems No Family History Social History Tobacco Use Smoking status: Former Current packs/day: 0.00 Average packs/day: 1 pack/day for 32.0 years (32.0 ttl pk-yrs) Types: Cigarettes Start date: 05/22/1968 Quit date: 05/22/2000 Years since quittin.8 Smokeless tobacco: Never Vaping Use Vaping status: Never Used Substance Use Topics Alcohol use: Yes Comment: occ Drug use: Yes Types: Marijuana Comment: gummies- marijuana BP 122/78 Pulse 82 Temp 36.4 C (97.6 F) Resp 20 Wt (!) 139.1 kg (306 lb 10.6 oz) SpO2 93% BMI 45.29 kg/m Review of Systems Constitutional: Negative for chills, fever and malaise/fatigue. HENT: Positive for congestion. Negative for ear discharge, ear pain, sinus pain and sore throat. Eyes: Negative for blurred vision, pain, discharge and redness. Respiratory: Positive for cough. Negative for hemoptysis, sputum production, shortness of breath, wheezing and stridor. Cardiovascular: Negative for chest pain. Gastrointestinal: Negative for abdominal pain, diarrhea, nausea and vomiting. Musculoskeletal: Negative for myalgias. Skin: Negative for itching and rash. Neurological: Negative for dizziness and headaches. Objective Physical Exam Constitutional: General: He is not in acute distress. Appearance: He is not diaphoretic. HENT: Head: Normocephalic. Jaw: No trismus, tenderness, swelling or pain on movement. Mouth/Throat: Mouth: Mucous membranes are moist. Pharynx: Oropharynx is clear. Uvula midline. No pharyngeal swelling, oropharyngeal exudate, posterior oropharyngeal erythema or uvula swelling. Eyes: Conjunctiva/sclera: Conjunctivae normal. Pupils: Pupils are equal, round, and reactive to light. Cardiovascular: Rate and Rhythm: Normal rate and regular rhythm. Heart sounds: Normal heart sounds. Pulmonary: Effort: Pulmonary effort is normal. No tachypnea, accessory muscle usage or respiratory distress. Breath sounds: Normal breath sounds. No stridor. No wheezing, rhonchi or rales. Abdominal: General: There is no distension. Palpations: Abdomen is soft. Tenderness: There is no abdominal tenderness. There is no guarding or rebound. Musculoskeletal: Cervical back: Normal range of motion and neck supple. No edema, erythema, rigidity or tenderness. No pain with movement. Normal range of motion. Lymphadenopathy: Cervical: No cervical adenopathy. Skin: General: Skin is warm and dry. Neurological: Mental Status: He is alert and oriented to person, place, and time. ASSESSMENT/PLAN: 1. Acute cough - ICD9: 786.2, ICD10: R05.1 (primary diagnosis) - XR CHEST 2V FRONTAL/LAT 2. Viral illness - ICD9: 079.99, ICD10: B34.9 IMPRESSION: No acute radiographic abnormality. No acute findings noted on x-ray. Suspicious of postviral cough. Medication sent to pharmacy. Patient was educated on supportive therapies. Patient will follow up with primary care provider as needed. Patient was instructed to immediately proceed to emergency room for any new, worsening, or symptoms lasting longer than anticipated. The patient's clinical presentation is otherwise unremarkable at this time. Based on exam and clinical finding, the patient is stable for discharge. Plan of care was discussed with patient. Patient verbalizes understanding and agrees to plan of care. This note was generated using [employer] software. It may contain errors in wording, punctuation, or spelling. Alec Villela APRN.JANICE documented in this encounterEast [facility] History of Present illness Narrative* Katey Booker DO - 03/13/2024 10:39 AM EST Diagnosis: 1) IgA lambda multiple myeloma. 2) High risk stage II colon cancer. HPI: The patient is a 73 yo male with PMH significant for DM (peripheral sensory neuropathy) CKD stage I, psoriasis, mixed hyperlipidemia, HTN (essential). He had a several year history of diabetes and established with Dr. Vega about 3 years prior to initial consultation here. A chemistry panel revealed an increase in the globulin fraction and therefore a serum protein electrophoresis and immunofixation was obtained. The patient was found to have a low level IgA lambda monoclonal protein with the M spike quantified at 0.7 g/dL. Urine protein electrophoresis was noted to have an atypical gamma without any quantification. The patient's serum chemistries were significant for creatinine of 1.0 mg/dL and a calcium of 8.6 mg/dL. The total protein was 7.8 g/dL with an albumin of 3.2 g/dL and a globulin fraction of 4.6 g/dL yielding an A/G ratio 0.7. Hepatocellular enzymes were normal. Sister diagnosed with retro-orbital lymphoma. Patient had daughter who at age 24 in 2003 from acute leukemia. Previous therapy: 1) VRd. Began 10/28. Current therapy: 1) Dd. x1 cycle. He had onset of dyspnea during the first week. Went to the ED and had CTA of chest ruled out PE. Was using his home oxygen which previously he only used at night when he felt he needed it. Was told he has mild COPD and asthma on top of it. He went back to the ED at [facility] 12/16 for worsening dyspnea. He was diagnosed with acute on chronic heart failure. BNP was elevated on presentation. CTA of the chest showed no evidence of PE. He was noted to have new moderate bilateral effusions and bilateral compressive atelectasis. He has preserved ejection fraction. Initially treated with furosemide drip. 2D echo demonstrated an EF of 70%. Symptoms improved but he was noted to be anemic and had a positive stool sample for occult blood. Underwent EGD which demonstrated severe erosive gastritis and 2 bleeding angiodysplastic lesions in the stomach which were treated with heater probe. He also had duodenitis which was biopsied. He was treated with pantoprazole 40 mg twice daily. He was able to taper oxygen down to 2 L and was discharged in 12/20. Underwent robotic laparoscopic sigmoid colectomy with colorectal anastomosis on 05/10/2023. Pathology: A. Colon, sigmoid, robotic laparoscopic colectomy -Invasive adenocarcinoma, moderately differentiated, 8.2 cm, extending into pericolonic tissue (seecomment) -Surgical margins negative for carcinoma and high-grade dysplasia -Negative for metastasis in thirty-four of thirty-four pericolic lymph nodes (0/34) B. Colon, distal donut, excision -Colonic mucosa with no significant pathologic abnormality Diagnosis Comment Microscopic examination demonstrates a moderately differentiated invasive adenocarcinoma, extendinginto pericolonic tissue. There is extensive abscess formation associated with gross/macroscopic tumor perforation and an exuberant pericolonic inflammatory response that is undermining the tumor. There is no tumor identified within the abscess cavity itself or at the site of perforation, consistentwith a pT3 staging classification. A. Colon, sigmoid, robotic laparoscopic colectomy -Invasive adenocarcinoma, moderately differentiated, 8.2 cm, extending into pericolonic tissue (seecomment) -Surgical margins negative for carcinoma and high-grade dysplasia -Negative for metastasis in thirty-four of thirty-four pericolic lymph nodes (0/34) B. Colon, distal donut, excision -Colonic mucosa with no significant pathologic abnormality Diagnosis Comment Microscopic examination demonstrates a moderately differentiated invasive adenocarcinoma, extendinginto pericolonic tissue. There is extensive abscess formation associated with gross/macroscopic tumor perforation and an exuberant pericolonic inflammatory response that is undermining the tumor. There is no tumor identified within the abscess cavity itself or at the site of perforation, consistentwith a pT3 staging classification. COLON AND RECTUM: Resection, Including Transanal Disk Excision of Rectal Neoplasms 8th Edition - Protocol posted: 10/14/2021 COLON AND RECTUM: RESECTION - A SPECIMEN Procedure Sigmoidectomy TUMOR Tumor Site Sigmoid colon Histologic Type Adenocarcinoma Histologic Grade G2, moderately differentiated Tumor Size Greatest dimension (Centimeters): 8.2 cm Tumor Extent Invades through muscularis propria into the pericolonic or perirectal tissue Macroscopic Tumor Perforation Present Lymphovascular Invasion Not identified Perineural Invasion Not identified Treatment Effect No known presurgical therapy MARGINS Margin Status for Invasive Carcinoma All margins negative for invasive carcinoma Closest Margin(s) to Invasive Carcinoma mesorectal margin Distance from Invasive Carcinoma to Closest Margin 2.1 cm Margin Status for Non-Invasive Tumor All margins negative for high-grade dysplasia / intramucosal carcinoma and low-grade dysplasia REGIONAL LYMPH NODES Regional Lymph Node Status All regional lymph nodes negative for tumor Number of Lymph Nodes Examined 34 Tumor Deposits Not identified PATHOLOGIC STAGE CLASSIFICATION (pTNM, AJCC 8th Edition) Reporting of pT, pN, and (when applicable) pM categories is based on information available to the pathologist at the time the report is issued. As per the AJCC (Chapter 1, 8th Ed.) it is the managingphysician s responsibility to establish the final pathologic stage based upon all pertinent information, including but potentially not limited to this pathology report. pT Category pT3 pN Category pN0 Results Mismatch Repair Protein Immunohistochemistry Results: MLH1: Normal/Intact Nuclear Expression PMS2: Normal/Intact Nuclear Expression MSH2: Normal/Intact Nuclear Expression MSH6: Normal/Intact Nuclear Expression Presents for ongoing oncologic management. Interim history: Developed cough a week ago. Hard time getting phlegm up. Hard time sleeping due to cough. Using Mucinex. No fever. UC yesterday. Rx doxy. No change in symptoms from sensory neuropathy: Still doesn't drive due to baseline neuropathy of the feet. Extends prison up the LEs b/l--stable. Fingers tingle and numb. On gabapentin for low back pain. Appetite normal. Formed stools. Occasional constipation. PMH, medications and allergies personally reviewed by me today. Any changes documented in appropriate section. PHYSICAL EXAM: Vitals: Blood pressure 146/77, pulse 79, temperature 36.4 C (97.5 F), temperature source Temporal, weight (!) 137.9 kg (304 lb), SpO2 94%.Well- appearing and in no acute distress. EYES: Sclerae are anicteric bilaterally. LYMPHATIC: There is no palpable cervical or supraclavicular adenopathy. RESPIRATORY: Inspiratory breath sounds are of diminished intensity in all ambrose. Coarse rhonchi throughout. CARDIOVASCULAR: Rhythm is regular. ABDOMEN: The abdomen is nondistended. Extremities: No swelling or edema. SKIN: No jaundice or rash. No petechiae. NEUROLOGIC: turf grower II-XII are grossly intact. No focal motor weakness. LABS: Latest Ref Rng 03/13/2024 WBC 3.70 - 11.00 k/uL 6.96 RBC 4.20 - 6.00 m/uL 5.44 Hemoglobin 13.0 - 17.0 g/dL 13.5 Hematocrit 39.0 - 51.0 % 43.7 MCV 80.0 - 100.0 fL 80.3 MCH 26.0 - 34.0 pg 24.8 (L) MCHC 30.5 - 36.0 g/dL 30.9 RDW-CV 11.5 - 15.0 % 17.9 (H) Platelet Count 150 - 400 k/uL 260 MPV 9.0 - 12.7 fL 9.7 Neut% % 75.4 Abs Neut (ANC) 1.45 - 7.50 k/uL 5.25 Lymph% % 12.8 Abs Lymph 1.00 - 4.00 k/uL 0.89 (L) Radford% % 9.2 Abs Radford <0.87 k/uL 0.64 Eosin% % 1.7 Abs Eosin <0.46 k/uL 0.12 Baso% % 0.3 Abs Baso <0.11 k/uL <0.03 Immature Gran % % 0.6 IMMATURE GRANS (ABS) <0.10 k/uL 0.04 NRBC /100 WBC 0.0 Absolute nRBC <0.01 k/uL <0.01 DTYPE Auto Protein, Total 6.3 - 8.0 g/dL 6.3 Albumin 3.9 - 4.9 g/dL 4.0 Calcium 8.5 - 10.2 mg/dL 9.3 Bilirubin, Total 0.2 - 1.3 mg/dL 0.4 Alkaline Phosphatase 38 - 113 U/L 154 (H) AST 14 - 40 U/L 14 ALT 10 - 54 U/L 17 Glucose 74 - 99 mg/dL 154 (H) BUN 9 - 24 mg/dL 19 Creatinine 0.73 - 1.22 mg/dL 0.74 Sodium 136 - 144 mmol/L 141 Potassium 3.7 - 5.1 mmol/L 4.0 Chloride 98 - 107 mmol/L 108 (H) CO2 22 - 30 mmol/L 23 Anion Gap 8 - 15 mmol/L 10 eGFR >=60 mL/min/1.73m 97 LD 135 - 225 U/L 222 IMAGING: Whole-body PET 09/06/2022 demonstrated scattered increase areas of FDG uptake in the thoracic and lumbar spine as well as the right iliac wing, posterior ilium and left acetabulum. Calculated maximum SUV was 4.2. This fulfilled quantitative criteria for viable osseous neoplasm. PATHOLOGY: BM biopsy 09/22/2022: A-C. Bone marrow, aspirate smear and core biopsy, with clot section: - Lambda monotypic plasma cell neoplasm involving ~20% of the marrow cellularity. - See comment. D. Peripheral blood smear: - Neutrophilic leukocytosis. - Normocytic anemia. - Mild thrombocytosis. FISH from 2019: RESULT: ABNORMAL hybridization pattern (see interpretation). Anomaly Result 1p32 (CDKN2C): Normal pattern 1q21 (CKS1B): Normal pattern +9 (CEP9): Normal pattern t(11;14)(q13;q32)(IGH/CCND1): Positive (78/100) 13q14 (RB1): Normal pattern 14q32 (IGH): Positive for IGH translocation (78/100) +15 (CEP15): Normal pattern 17p13 (TP53): Normal pattern INTERPRETATION: These findings demonstrate a plasma cell population with t(11;14)/IGH-CCND1. These findings are consistent with the presence of a plasma cell neoplasm. In plasma cell myeloma, these findings are associated with standard risk disease. Correlation with metaphase cytogenetic analysis is suggested. 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 -Initial bone marrow biopsy 20% PCs in the core specimen. -PET 2019 revealed no suspicious skeletal lesions. -PET 08/2022 indicated lesions defining multiple myeloma. -Bone marrow--still had about 20% PCs. -Standard risk disease by FISH panel 2019. -Significant baseline sensory neuropathy. -Myeloma frailty score is 1 (intermediate). -He was not a candidate for transplant given his other comorbid conditions. He said he wouldn't want to undergo ASCT if medically cleared to do so. -Devious episode decompensated CHF (diastolic dysfunction). -Had worsening neuropathy from bortezomib. -Tolerating daratumumab and lenalidomide well. Therapy was on hold a while for colon cancer surgery. -Reviewed labs. Immunofixation detecting daratumumab and IgA lambda faintly. -Light chains including ratio now normal. -He has no severe or unexpected toxicity from therapy. Currently receiving treatment for bronchitisbut his white count is normal and there is no evidence of sepsis or pneumonia. Benefit of continuing outweighs risk. Plan: -Continue acyclovir. -Hold lenalidomide for now, but will restart if progresses. -Dexamethasone 8 mg PO weekly due to exacerbation of blood glucose at higher doses.. -Monthly monitoring of serum monoclonal protein and light chains. -Continue PPI since continuing dexamethasone. -Continue monitoring counts and iron levels (as indicated). -Continued follow-up with his PCP and refuse driver. -Continue monthly Zometa. (C18.7) Cancer of sigmoid colon (HCC) (S31.109A) Open wound of abdominal wall, initial encounter Assessment: -pT3 N0 M0 G2 stage IIA adenocarcinoma of the sigmoid colon. -pMMR. -High risk feature of macroscopic tumor perforation. -Tumor budding not reported. Plan: -Screening colonoscopy due 04/2024. -CTs around 05/2024. Low back pain. -Continue with CPM. (J20.6) Acute bronchitis due to Rhinovirus (primary encounter diagnosis) Assessment: -Significant cough. -Can't sleep. -On doxycycline. Plan: -Rx Hycodan cough syrup. Portions of this documentation were copied and pasted from previous office visit notes in order to provide a cohesive continuity of the history. The note has been reviewed and edited and updated as necessary. Katey Booker DO documented in this encounterEast [facility]11-[facility] Telephone encounter Note * Telephone Encounter - Rachana Torres LPN - 03/12/2024 3:07 PM EST Patient aware and will wear a mask as a precaution tomorrow. Rachana Torres LPN [facility]11-18-2024 Miscellaneous Notes* Telephone Encounter - Rachana Torres LPN - 03/12/2024 3:07 PM EST Patient aware and will wear a mask as a precaution tomorrow. Rachana Torres LPN * Telephone Encounter - Katey Booker DO - 03/12/2024 2:45 PM EST Okay for treatment. Katey Booker DO * Telephone Encounter - Rachana Torres LPN - 03/12/2024 2:32 PM EST 2. Rhinosinusitis - ICD9: 473.9, ICD10: J32.9 - DOXYCYCLINE HYCLATE 100 MG TABLET CXR- Lungs and pleura: No consolidation. No lung mass. No pleural effusion. No pneumothorax. * Telephone Encounter - Katey Booker DO - 03/12/2024 1:22 PM EST Agree with express care evaluation. Katey Booker DO * Telephone Encounter - Cha Bautista RN - 03/12/2024 12:05 PM EST Care Coordination Triage Note [facility] Situation: Patient reports Flu/Covid, cold symptoms Background: Multiple Myeloma, Darzalex Assessment: When did your symptoms first start? Started with a sore throat last Tuesday. Started coughing Tuesday/. Do you have a fever, cough, diarrhea, body aches, congestion, runny nose, sore throat or feel shortof breath? Cough raspy, congestion, some SOB. Afebrile. Taking Mucinex, Dayquil, and Nyquil. Have you been around anyone diagnosed with strep or the flu/influenza? no Have you been tested for covid? no Recommendations: Per RNCC, patient directed to: Manage at home. Instructions provided. Advised express care for evaluation. Call our office with an update after his visit, especially if he has pneumonia. Cha Bautista RN March 12, 2024 12:05 PM documented in this encounterC[place] [id number] Telephone encounter Note * Telephone Encounter - Katey Booker DO - 03/12/2024 2:45 PM EST Okay for treatment. Katey Booker DO [facility] Telephone encounter Note* Telephone Encounter - Rachana Torres LPN - 03/12/2024 2:32 PM EST 2. Rhinosinusitis - ICD9: 473.9, ICD10: J32.9 - DOXYCYCLINE HYCLATE 100 MG TABLET CXR- Lungs and pleura: No consolidation. No lung mass. No pleural effusion. No pneumothorax. [facility]11-18-[facility] History of Present illness Narrative* Zaina Breen RT(R) - 03/12/2024 2:20 PM EST Radiology Service Progress Note PATIENT NAME: Cyn James JR DATE OF SERVICE: March 12, 2024 TIME: 1:55 PM PATIENT IDENTITY VERIFICATION COMPLETED USING TWO (2) IDENTIFIERS: Name and Date of confirmedby patient verbally. FALL SCREENING: Has the patient had 2 falls in the last year or 1 fall with injury or currently using an Ambulatory Assistive Device (Walker, Cane, Wheelchair, Crutches, etc.)? No PATIENT GENDER DATA: Male PATIENT RELEVANT IMPLANT DATA REVIEWED: Not Applicable PATIENT PRESENTS WITH AN IMPLANTABLE OR ATTACHED [place] PAINTER: No RADIOLOGY DEPARTMENT: General X-ray: Exam(s) Completed: Chest X-Ray PERIPHERAL IV DATA: Not applicable SIGNED BY: RT Alecia(R) March 12, 2024 1:55 PM documented in this encounterEast [facility]11-18-2024 [facility]11-18-2024 Note[facility]11-18-20[facility] History of Present illness Narrative* Isabella Traore APRN.ENROUTE CONTROLLER - 03/12/2024 1:50 PM EST CC: Patient presents with: Chest Congestion: cough, sinus pressure, wheezing x 6 days HPI: Cyn James JR is a 73 year old male who presents to the office with complaint of chest congestion, head congestion, and cough, nonproductive for 6 days. Symptoms are worsening Associated symptoms includes wheezing and dyspnea. Denies nausea, vomiting , and diarrhea. Treatments tried include nothing so far. with no relief of symptoms. Sick contacts: unknown. History of asthma, frequent episodes of bronchitis, chronic bronchitis, bronchiectasis or COPD: No Smoker: No Seasonal/environmental allergies: No The ROS is otherwise negative. The patient's pmh, medications, allergies, and past visits are reviewed. PHYSICAL EXAM: BP 142/84 Pulse 72 Temp 36.8 C (98.3 F) Resp 20 Wt (!) 138.8 kg (306 lb) SpO2 94% BMI 45.19 kg/m General appearance: alert, cooperative, pleasant, in no acute distress Head: Normocephalic Eyes: EOM's intact, conjunctiva pink and moist, no icterus, sclera white, non-injected Ears: Right ear: External ear/canal- Normal, TM - clear with good landmarks. Left ear: External ear/canal- Normal, TM - clear with good landmarks Oropharynx:moist without lesions, No erythema, exudates or tonsillar hypertrophy. Heart: Negative. RRR without obvious murmur, gallop, or rubs. No ectopy. 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 Leukocytosis 05/03/2023 Marijuana user 05/03/2023 Mixed hyperlipidemia Morbid obesity (HCC) 05/03/2023 Multiple myeloma not having achieved remission (HCC) 09/24/2022 On home O2 05/03/2023 CONCHA (obstructive sleep apnea) 05/03/2023 Peripheral sensory neuropathy Psoriasis Red blood cell antibody positive 05/04/2023 Sleep apnea PAST SURGICAL HISTORY Procedure Laterality Date CATARACT EXTRACTION HX 04/25/2013 Left eye FOOT SURGERY HX Left PAST SURGICAL HISTORY OF 02/02/2023 TURP TRANSURETHRAL ELEC-SURG PROSTATECTOM ALLERGIES Penicillins MEDICATIONS calcium carbonate/vitamin D3 (CALCIUM + D ORAL) Take 1 tablet by mouth once daily. potassium chloride ER (KLOR-CON) 20 mEq tablet Take 1 tablet by mouth once daily. gabapentin (NEURONTIN) 300 mg capsule Take 300 mg by mouth two times a day. FIASP FLEXTOUCH U-100 INSULIN 100 unit/mL (3 mL) pen 28 units with breakfast, 46 units with lunch, 54 units with dinner. TRESIBA U-100 INSULIN 100 unit/mL injection 66 units with breakfast, 66 units with dinner, 64 unitsat bedtime. cyclobenzaprine (FLEXERIL) 10 mg tablet Take 1 tablet by mouth three times a day as needed for muscle spasm. revrdpjhmcl-nntfcfuzs-urshmaby (TRELEGY ELLIPTA) 200-62.5-25 mcg inhalation powder Inhale 1 Puff asinstructed once daily. acyclovir (ZOVIRAX) 400 mg tablet Take 1 tablet by mouth two times a day. ondansetron (ZOFRAN) 8 mg tablet Take 1 tablet by mouth every 8 hours as needed for nausea/vomiting. dilTIAZem CD (CARDIZEM CD, CARTIA XT) 240 mg 24 hr capsule Take 1 capsule by mouth once daily. empagliflozin (JARDIANCE) 10 mg tablet Take 10 mg by mouth once daily. acetaminophen (TYLENOL EXTRA STRENGTH) 500 mg tablet Take 1,500 mg by mouth every 8 hours as needed. losartan (COZAAR) 50 mg tablet Take 50 mg by mouth once daily. cholecalciferol (VITAMIN D-3) 50 mcg (2,000 unit) tablet Take 2,000 Units by mouth once daily. OMEGA-3 FATTY ACIDS ORAL Take 1 tablet by mouth once daily. magnesium oxide/magnesium (MAGNESIUM OXIDE-MG AA CHELATE ORAL) Take 250 mg by mouth once daily. albuterol HFA (PROVENTIL HFA, VENTOLIN HFA) 90 mcg/actuation inhaler Inhale 1 Puff as instructed asneeded. metFORMIN (GLUCOPHAGE) 1,000 mg tablet Take 1,000 mg by mouth twice daily with meals. atorvastatin (LIPITOR) 20 mg tablet Take 20 mg by mouth once daily. iv contrast (will be provided with radiology test) CT Chest W -Inject, intravenously, once for 1 dose.No IV access, insert saline lock prior to the beginning of sedation, infusion, injection of imaging exam. Discontinue saline lock post exam. If Pt. has a central line or IVAD, may access for administration according to line specific nursing protocol. Once exam is complete flush line and de-accessaccording to line specific nursing protocol in the CT contrast administration guidelines link. iv contrast (will be provided with radiology test) CT ABD/PEL -Inject, intravenously, once for 1 dose.No IV access, insert saline lock prior to the beginning of sedation, infusion, injection of imaging exam. Discontinue saline lock post exam. If Pt. has a central line or IVAD, may access for administration according to line specific nursing protocol. Once exam is complete flush line and de-accessaccording to line specific nursing protocol in the CT contrast administration guidelines link. enteric contrast (will be provided with radiology test) For CT ABD/PEL W IVCON Routine order Administer, As Directed One Time Only, via Oral, Rectal, both Oral and Rectal, Enteric Tube, Stoma or Indwelling Catheter, Enteric Contrast as designated per enteric contrast guidelines INV SEMAGLUTIDE, OZEMPIC,, 2 MG/1.5 ML, PEN (IRB 20-853) Inject 0.5 mg subcutaneously one time a week. For Investigation Drug Use Only. PI: Dr. Aleks Finn dexAMETHasone (DECADRON) 4 mg tablet Take 5 tablets with breakfast on day of each daratumuamb treatment. (Patient not taking: Reported on 03/12/2024) torsemide (DEMADEX) 10 mg tablet Take 10 mg by mouth once daily as needed. pantoprazole DR (PROTONIX) 40 mg tablet Take 40 mg by mouth once daily. (Patient not taking: Reported on 03/12/2024) insulin aspart U-100 (NOVOLOG U-100 INSULIN ASPART) 100 unit/mL soln Take 26 units with breakfast, 42 units at lunch, 46 units at dinner, zero at bedtime insulin detemir U-100 (LEVEMIR) 100 unit/mL injection 70 breakfast, 70 lunch, and 74 bedtime. FAMILY HISTORY Problem Relation Age of Onset Diabetes Father 86 d/t liver failure Breast Cancer Mother 65 Living Cancer Sister ? Lymphoma Diabetes Maternal Grandmother Diabetes Paternal Grandmother Anesthesia Problems No Family History Social History Tobacco Use Smoking status: Former Current packs/day: 0.00 Average packs/day: 1 pack/day for 32.0 years (32.0 ttl pk-yrs) Types: Cigarettes Start date: 05/22/1968 Quit date: 05/22/2000 Years since quittin.8 Smokeless tobacco: Never Vaping Use Vaping status: Never Used Substance Use Topics Alcohol use: Yes Comment: occ Drug use: Yes Types: Marijuana Comment: gummies- marijuana ASSESSMENT/PLAN: 1. Acute cough - ICD9: 786.2, ICD10: R05.1 (primary diagnosis) \ - XR CHEST 2V FRONTAL/LAT * * * * Physician Interpretation * * * * EXAMINATION: CHEST RADIOGRAPH (2 VIEW FRONTAL & LATERAL) CLINICAL HISTORY: Acute cough MQ: [id number] EXAM DATE/TIME: 03/12/2024 2:02 PM COMPARISON: Chest x-ray dated 05/03/2023 RESULT: Lines, tubes, and devices: None. Lungs and pleura: No consolidation. No lung mass. No pleural effusion. No pneumothorax. Cardiomediastinal silhouette: Stable cardiomediastinal silhouette. Bones and soft tissues: Degenerative changes are present within the thoracic spine. IMPRESSION IMPRESSION: No acute radiographic abnormality. Wheel Adjuster: AWAIS Transcribe Date/Time: Mar 12 2024 2:08P Dictated by : BOB MARCH MD 2. Rhinosinusitis - ICD9: 473.9, ICD10: J32.9 - DOXYCYCLINE HYCLATE 100 MG TABLET Prescription instructions reviewed with patient as applicable. Potential red flag symptoms discussed with the patient. Reviewed appropriate action plan to take if red flag symptoms occur. Patient agreeable to treatment plan. Isabella Traore APRN.ENROUTE CONTROLLER [facility] Telephone encounter Note * Telephone Encounter - Katey Booker DO - 03/12/2024 1:22 PM EST Agree with express care evaluation. Katey Booker DO [facility]11-18-2024 Telephone encounter Note* Telephone Encounter - Cha Bautista RN - 03/12/2024 12:05 PM EST Care Coordination Triage Note [facility] Situation: Patient reports Flu/Covid, cold symptoms Background: Multiple Myeloma, Darzalex Assessment: When did your symptoms first start? Started with a sore throat last Tuesday. Started coughing Tuesday/. Do you have a fever, cough, diarrhea, body aches, congestion, runny nose, sore throat or feel shortof breath? Cough raspy, congestion, some SOB. Afebrile. Taking Mucinex, Dayquil, and Nyquil. Have you been around anyone diagnosed with strep or the flu/influenza? no Have you been tested for covid? no Recommendations: Per RN[facility], patient directed to: Manage at home. Instructions provided. Advised express care for evaluation. Call our office with an update after his visit, especially if he has pneumonia. Cha Bautista RN March 12, 2024 12:05 PM [facility]10-23-[facility] History of Present illness Narrative* David Mckinney - 02/15/2024 10:22 AM EDT Diagnosis: 1) IgA lambda multiple myeloma. 2) High risk stage II colon cancer. HPI: The patient is a 73 yo male with PMH significant for DM (peripheral sensory neuropathy) CKD stage I, psoriasis, mixed hyperlipidemia, HTN (essential). He had a several year history of diabetes and established with Dr. Vega about 3 years prior to initial consultation here. A chemistry panel revealed an increase in the globulin fraction and therefore a serum protein electrophoresis and immunofixation was obtained. The patient was found to have a low level IgA lambda monoclonal protein with the M spike quantified at 0.7 g/dL. Urine protein electrophoresis was noted to have an atypical gamma without any quantification. The patient's serum chemistries were significant for creatinine of 1.0 mg/dL and a calcium of 8.6 mg/dL. The total protein was 7.8 g/dL with an albumin of 3.2 g/dL and a globulin fraction of 4.6 g/dL yielding an A/G ratio 0.7. Hepatocellular enzymes were normal. Sister diagnosed with retro-orbital lymphoma. Patient had daughter who at age 24 in 2003 from acute leukemia. Previous therapy: 1) VRd. Began 10/28. Current therapy: 1) Dd. x1 cycle. He had onset of dyspnea during the first week. Went to the ED and had CTA of chest ruled out PE. Was using his home oxygen which previously he only used at night when he felt he needed it. Was told he has mild COPD and asthma on top of it. He went back to the ED at [facility] 12/16 for worsening dyspnea. He was diagnosed with acute on chronic heart failure. BNP was elevated on presentation. CTA of the chest showed no evidence of PE. He was noted to have new moderate bilateral effusions and bilateral compressive atelectasis. He has preserved ejection fraction. Initially treated with furosemide drip. 2D echo demonstrated an EF of 70%. Symptoms improved but he was noted to be anemic and had a positive stool sample for occult blood. Underwent EGD which demonstrated severe erosive gastritis and 2 bleeding angiodysplastic lesions in the stomach which were treated with heater probe. He also had duodenitis which was biopsied. He was treated with pantoprazole 40 mg twice daily. He was able to taper oxygen down to 2 L and was discharged in 12/20. Underwent robotic laparoscopic sigmoid colectomy with colorectal anastomosis on 05/10/2023. Pathology: A. Colon, sigmoid, robotic laparoscopic colectomy -Invasive adenocarcinoma, moderately differentiated, 8.2 cm, extending into pericolonic tissue (seecomment) -Surgical margins negative for carcinoma and high-grade dysplasia -Negative for metastasis in thirty-four of thirty-four pericolic lymph nodes (0/34) B. Colon, distal donut, excision -Colonic mucosa with no significant pathologic abnormality Diagnosis Comment Microscopic examination demonstrates a moderately differentiated invasive adenocarcinoma, extendinginto pericolonic tissue. There is extensive abscess formation associated with gross/macroscopic tumor perforation and an exuberant pericolonic inflammatory response that is undermining the tumor. There is no tumor identified within the abscess cavity itself or at the site of perforation, consistentwith a pT3 staging classification. A. Colon, sigmoid, robotic laparoscopic colectomy -Invasive adenocarcinoma, moderately differentiated, 8.2 cm, extending into pericolonic tissue (seecomment) -Surgical margins negative for carcinoma and high-grade dysplasia -Negative for metastasis in thirty-four of thirty-four pericolic lymph nodes (0/34) B. Colon, distal donut, excision -Colonic mucosa with no significant pathologic abnormality Diagnosis Comment Microscopic examination demonstrates a moderately differentiated invasive adenocarcinoma, extendinginto pericolonic tissue. There is extensive abscess formation associated with gross/macroscopic tumor perforation and an exuberant pericolonic inflammatory response that is undermining the tumor. There is no tumor identified within the abscess cavity itself or at the site of perforation, consistentwith a pT3 staging classification. COLON AND RECTUM: Resection, Including Transanal Disk Excision of Rectal Neoplasms 8th Edition - Protocol posted: 10/14/2021 COLON AND RECTUM: RESECTION - A SPECIMEN Procedure Sigmoidectomy TUMOR Tumor Site Sigmoid colon Histologic Type Adenocarcinoma Histologic Grade G2, moderately differentiated Tumor Size Greatest dimension (Centimeters): 8.2 cm Tumor Extent Invades through muscularis propria into the pericolonic or perirectal tissue Macroscopic Tumor Perforation Present Lymphovascular Invasion Not identified Perineural Invasion Not identified Treatment Effect No known presurgical therapy MARGINS Margin Status for Invasive Carcinoma All margins negative for invasive carcinoma Closest Margin(s) to Invasive Carcinoma mesorectal margin Distance from Invasive Carcinoma to Closest Margin 2.1 cm Margin Status for Non-Invasive Tumor All margins negative for high-grade dysplasia / intramucosal carcinoma and low-grade dysplasia REGIONAL LYMPH NODES Regional Lymph Node Status All regional lymph nodes negative for tumor Number of Lymph Nodes Examined 34 Tumor Deposits Not identified PATHOLOGIC STAGE CLASSIFICATION (pTNM, AJCC 8th Edition) Reporting of pT, pN, and (when applicable) pM categories is based on information available to the pathologist at the time the report is issued. As per the AJCC (Chapter 1, 8th Ed.) it is the managingphysician s responsibility to establish the final pathologic stage based upon all pertinent information, including but potentially not limited to this pathology report. pT Category pT3 pN Category pN0 Results Mismatch Repair Protein Immunohistochemistry Results: MLH1: Normal/Intact Nuclear Expression PMS2: Normal/Intact Nuclear Expression MSH2: Normal/Intact Nuclear Expression MSH6: Normal/Intact Nuclear Expression Presents for ongoing oncologic management. Interim history: Mr. James presents today for follow up and treatment with his spouse. Denies new issues. No recent illnesses, fevers, chills or NS. Appetite and energy level stable. Denies new aches or pains. Chroniclow back pain is stable. Occasional constipation. Denies changes in bowel or bladder habits. No bleeding or bruising. No changes in neuropathy ROS: All systems reviewed on 02/15/2024 with pertinent positives and negatives as outlined in the interval history. PMH, medications and allergies personally reviewed by me today. Any changes documented in appropriate section. PHYSICAL EXAM: Vitals: Blood pressure 148/70, pulse 79, temperature 36.6 C (97.9 F), temperature source Temporal, weight (!) 137.4 kg (303 lb), SpO2 90%.Well- appearing and in no acute distress. EYES: Sclerae are anicteric bilaterally. LYMPHATIC: There is no palpable cervical or supraclavicular adenopathy. RESPIRATORY: Inspiratory breath sounds are of diminished intensity in all ambrose. CARDIOVASCULAR: Rhythm is regular. ABDOMEN: The abdomen is nondistended. Extremities: No swelling or edema. SKIN: No jaundice or rash. No petechiae. NEUROLOGIC: turf grower II-XII are grossly intact. No focal motor weakness. I have performed the physical exam today (02/15/2024) and have edited the note to correlate with current findings. LABS: Reviewed stable IMAGING: Whole-body PET 09/06/2022 demonstrated scattered increase areas of FDG uptake in the thoracic and lumbar spine as well as the right iliac wing, posterior ilium and left acetabulum. Calculated maximum SUV was 4.2. This fulfilled quantitative criteria for viable osseous neoplasm. PATHOLOGY: BM biopsy 09/22/2022: A-C. Bone marrow, aspirate smear and core biopsy, with clot section: - Lambda monotypic plasma cell neoplasm involving ~20% of the marrow cellularity. - See comment. D. Peripheral blood smear: - Neutrophilic leukocytosis. - Normocytic anemia. - Mild thrombocytosis. FISH from 2019: RESULT: ABNORMAL hybridization pattern (see interpretation). Anomaly Result 1p32 (CDKN2C): Normal pattern 1q21 (CKS1B): Normal pattern +9 (CEP9): Normal pattern t(11;14)(q13;q32)(IGH/CCND1): Positive (78/100) 13q14 (RB1): Normal pattern 14q32 (IGH): Positive for IGH translocation (78/100) +15 (CEP15): Normal pattern 17p13 (TP53): Normal pattern INTERPRETATION: These findings demonstrate a plasma cell population with t(11;14)/IGH-CCND1. These findings are consistent with the presence of a plasma cell neoplasm. In plasma cell myeloma, these findings are associated with standard risk disease. Correlation with metaphase cytogenetic analysis is suggested. 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 -Initial bone marrow biopsy 20% PCs in the core specimen. -PET 2019 revealed no suspicious skeletal lesions. -PET 08/2022 indicated lesions defining multiple myeloma. -Bone marrow--still had about 20% PCs. -Standard risk disease by FISH panel 2019. -Significant baseline sensory neuropathy. -Myeloma frailty score is 1 (intermediate). -He was not a candidate for transplant given his other comorbid conditions. He said he wouldn't want to undergo ASCT if medically cleared to do so. -Episode decompensated CHF (diastolic dysfunction). -Had worsening neuropathy from bortezomib. -Tolerating daratumumab and lenalidomide well. Therapy was on hold a while for colon cancer surgery. -Reviewed labs. Immunofixation detecting daratumumab and IgA. No light chain. -labs reviewed today with pt and spouse remain stable. -He has no severe or unexpected toxicity from therapy. Benefit of continuing outweighs risk. Plan: -Continue acyclovir. -Hold lenalidomide for now, but will restart if progresses. -Dexamethasone 8 mg PO weekly due to exacerbation of blood glucose at higher doses.. -Monthly monitoring of serum monoclonal protein and light chains. -Continue PPI since continuing dexamethasone. -Continue monitoring counts and iron levels (as indicated). -Continued follow-up with his PCP and refuse driver. -Continue monthly Zometa. (C18.7) Cancer of sigmoid colon (HCC) (S31.109A) Open wound of abdominal wall, initial encounter Assessment: -pT3 N0 M0 G2 stage IIA adenocarcinoma of the sigmoid colon. -pMMR. -High risk feature of macroscopic tumor perforation. -Tumor budding not reported. Plan: -Screening colonoscopy due 04/2024. Needs to schedule was following with Dr. Lo -CTs around 05/2024. Low back pain, stable -Continue with CPM. David Mckinney APRN.ENROUTE CONTROLLER I spent a total of 30 minutes on the date of the service which included preparing to see the patient, asdi-[id number]-teyd patient care, completing clinical documentation, obtaining and/or reviewing separately obtained history, and counseling and educating the patient/family/caregiver. Portions of this note including HPI, ROS, impression/plan may have been copied forward as to provide important historical information essential in contributing to medical decision making. Documentation has been reviewed and edited as necessary to support clinical decision making for today's visit and to reflect my own independent evaluation of this patient. [facility] Telephone encounter Note * Telephone Encounter - Cha Bautista RN - 01/30/2024 12:37 PM EDT Patient informed of Dr. Booker's response, stated understanding. Cha Bautista RN [facility]10-07-2024 Miscellaneous Notes* Telephone Encounter - Cha Bautista RN - 01/30/2024 12:37 PM EDT Patient informed of Dr. Booker's response, stated understanding. Cha Bautista RN * Telephone Encounter - Katey Booker DO - 01/30/2024 12:28 PM EDT Ibuprofen added to dexamethasone increases the risk of gastritis, gastric ulcer and possible GI bleeding. Pantoprazole can help mitigate this risk. So I think it's okay for him to take PRN. Katey Booker DO * Telephone Encounter - Cha Bautista RN - 01/30/2024 12:15 PM EDT Patient is established with pain management. Patient called and left a VM asking if he is allowed to take ibuprofen PRN for back pain. Please advise. Thank you. Cha Bautista RN documented in this encounterEast [facility]10-[facility]-20[facility] Telephone encounter Note * Telephone Encounter - Katey Booker DO - 01/30/2024 12:28 PM EDT Ibuprofen added to dexamethasone increases the risk of gastritis, gastric ulcer and possible GI bleeding. Pantoprazole can help mitigate this risk. So I think it's okay for him to take PRN. Katey Booker DO [facility]10-07-20[facility] Telephone encounter Note* Telephone Encounter - Cha Bautista RN - 01/30/2024 12:15 PM EDT Patient is established with pain management. Patient called and left a VM asking if he is allowed to take ibuprofen PRN for back pain. Please advise. Thank you. Cha Bautista RN [facility]09-27-[facility] Telephone encounter Note* Telephone Encounter - Rachana Torres LPN - 01/20/2024 1:33 PM EDT Faxed as requested. Rachana Torres LPN [facility]09-27-20[facility] Miscellaneous Notes* Telephone Encounter - Rachana Torres LPN - 01/20/2024 1:33 PM EDT Faxed as requested. Rachana Torres LPN * Telephone Encounter - Dangelo Lopez - 01/20/2024 1:[address] called requesting [address] results to be faxed to themat [phone] documented in this encounterEast [facility]09-27-2024 Telephone encounter Note * Telephone Encounter - Dangelo Lopez - 01/20/2024 1:[address] called requesting [address] recent [address] results to be faxed to [facility] [phone] [facility] Work Phone: [phone] 461-603909-25-2024 [facility] History of Present illness Narrative* Marisol Hollis RN - 01/18/2024 11:31 AM EDT Patient has 2 dentist appointments next month (02/01 and 02/22) for fillings. Per Dr. Jhony ORTIZ for zometa today. documented in this encounterEast [facility]09-25-2024 [facility] History of Present illness Narrative* Katey Booker DO - 01/18/2024 11:08 AM EDT Diagnosis: 1) IgA lambda multiple myeloma. 2) High risk stage II colon cancer. HPI: The patient is a 73 yo male with PMH significant for DM (peripheral sensory neuropathy) CKD stage I, psoriasis, mixed hyperlipidemia, HTN (essential). He had a several year history of diabetes and established with Dr. Vega about 3 years prior to initial consultation here. A chemistry panel revealed an increase in the globulin fraction and therefore a serum protein electrophoresis and immunofixation was obtained. The patient was found to have a low level IgA lambda monoclonal protein with the M spike quantified at 0.7 g/dL. Urine protein electrophoresis was noted to have an atypical gamma without any quantification. The patient's serum chemistries were significant for creatinine of 1.0 mg/dL and a calcium of 8.6 mg/dL. The total protein was 7.8 g/dL with an albumin of 3.2 g/dL and a globulin fraction of 4.6 g/dL yielding an A/G ratio 0.7. Hepatocellular enzymes were normal. Sister diagnosed with retro-orbital lymphoma. Patient had daughter who at age 24 in 2003 from acute leukemia. Previous therapy: 1) VRd. Began 10/28. Current therapy: 1) Dd. x1 cycle. He had onset of dyspnea during the first week. Went to the ED and had CTA of chest ruled out PE. Was using his home oxygen which previously he only used at night when he felt he needed it. Was told he has mild COPD and asthma on top of it. He went back to the ED at [facility] 12/16 for worsening dyspnea. He was diagnosed with acute on chronic heart failure. BNP was elevated on presentation. CTA of the chest showed no evidence of PE. He was noted to have new moderate bilateral effusions and bilateral compressive atelectasis. He has preserved ejection fraction. Initially treated with furosemide drip. 2D echo demonstrated an EF of 70%. Symptoms improved but he was noted to be anemic and had a positive stool sample for occult blood. Underwent EGD which demonstrated severe erosive gastritis and 2 bleeding angiodysplastic lesions in the stomach which were treated with heater probe. He also had duodenitis which was biopsied. He was treated with pantoprazole 40 mg twice daily. He was able to taper oxygen down to 2 L and was discharged in 12/20. Underwent robotic laparoscopic sigmoid colectomy with colorectal anastomosis on 05/10/2023. Pathology: A. Colon, sigmoid, robotic laparoscopic colectomy -Invasive adenocarcinoma, moderately differentiated, 8.2 cm, extending into pericolonic tissue (seecomment) -Surgical margins negative for carcinoma and high-grade dysplasia -Negative for metastasis in thirty-four of thirty-four pericolic lymph nodes (0/34) B. Colon, distal donut, excision -Colonic mucosa with no significant pathologic abnormality Diagnosis Comment Microscopic examination demonstrates a moderately differentiated invasive adenocarcinoma, extendinginto pericolonic tissue. There is extensive abscess formation associated with gross/macroscopic tumor perforation and an exuberant pericolonic inflammatory response that is undermining the tumor. There is no tumor identified within the abscess cavity itself or at the site of perforation, consistentwith a pT3 staging classification. A. Colon, sigmoid, robotic laparoscopic colectomy -Invasive adenocarcinoma, moderately differentiated, 8.2 cm, extending into pericolonic tissue (seecomment) -Surgical margins negative for carcinoma and high-grade dysplasia -Negative for metastasis in thirty-four of thirty-four pericolic lymph nodes (0/34) B. Colon, distal donut, excision -Colonic mucosa with no significant pathologic abnormality Diagnosis Comment Microscopic examination demonstrates a moderately differentiated invasive adenocarcinoma, extendinginto pericolonic tissue. There is extensive abscess formation associated with gross/macroscopic tumor perforation and an exuberant pericolonic inflammatory response that is undermining the tumor. There is no tumor identified within the abscess cavity itself or at the site of perforation, consistentwith a pT3 staging classification. COLON AND RECTUM: Resection, Including Transanal Disk Excision of Rectal Neoplasms 8th Edition - Protocol posted: 10/14/2021 COLON AND RECTUM: RESECTION - A SPECIMEN Procedure Sigmoidectomy TUMOR Tumor Site Sigmoid colon Histologic Type Adenocarcinoma Histologic Grade G2, moderately differentiated Tumor Size Greatest dimension (Centimeters): 8.2 cm Tumor Extent Invades through muscularis propria into the pericolonic or perirectal tissue Macroscopic Tumor Perforation Present Lymphovascular Invasion Not identified Perineural Invasion Not identified Treatment Effect No known presurgical therapy MARGINS Margin Status for Invasive Carcinoma All margins negative for invasive carcinoma Closest Margin(s) to Invasive Carcinoma mesorectal margin Distance from Invasive Carcinoma to Closest Margin 2.1 cm Margin Status for Non-Invasive Tumor All margins negative for high-grade dysplasia / intramucosal carcinoma and low-grade dysplasia REGIONAL LYMPH NODES Regional Lymph Node Status All regional lymph nodes negative for tumor Number of Lymph Nodes Examined 34 Tumor Deposits Not identified PATHOLOGIC STAGE CLASSIFICATION (pTNM, AJCC 8th Edition) Reporting of pT, pN, and (when applicable) pM categories is based on information available to the pathologist at the time the report is issued. As per the AJCC (Chapter 1, 8th Ed.) it is the managingphysician s responsibility to establish the final pathologic stage based upon all pertinent information, including but potentially not limited to this pathology report. pT Category pT3 pN Category pN0 Results Mismatch Repair Protein Immunohistochemistry Results: MLH1: Normal/Intact Nuclear Expression PMS2: Normal/Intact Nuclear Expression MSH2: Normal/Intact Nuclear Expression MSH6: Normal/Intact Nuclear Expression Presents for ongoing oncologic management. Interim history: No change in sensory neuropathy: Doesn't drive due to baseline neuropathy of the feet. Extends prison up the LEs b/l. Fingers tingle and numb. On gabapentin for low back pain. Had injections--helped a few days. Appetite normal. Formed stools. Occasional constipation. Blood sugars doing well. PMH, medications and allergies personally reviewed by me today. Any changes documented in appropriate section. PHYSICAL EXAM: Vitals: Blood pressure 127/72, pulse 74, temperature 36.3 C (97.4 F), temperature source Temporal, weight 135.2 kg (298 lb), SpO2 91%.Well-appearing and in no acute distress. EYES: Sclerae are anicteric bilaterally. LYMPHATIC: There is no palpable cervical or supraclavicular adenopathy. RESPIRATORY: Inspiratory breath sounds are of diminished intensity in all ambrose. CARDIOVASCULAR: Rhythm is regular. ABDOMEN: The abdomen is nondistended. Extremities: No swelling or edema. SKIN: No jaundice or rash. No petechiae. NEUROLOGIC: turf grower II-XII are grossly intact. No focal motor weakness. LABS: Latest Ref Rng 01/18/2024 WBC 3.70 - 11.00 k/uL 11.55 (H) RBC 4.20 - 6.00 m/uL 5.50 Hemoglobin 13.0 - 17.0 g/dL 13.5 Hematocrit 39.0 - 51.0 % 42.9 MCV 80.0 - 100.0 fL 78.0 (L) MCH 26.0 - 34.0 pg 24.5 (L) MCHC 30.5 - 36.0 g/dL 31.5 RDW-CV 11.5 - 15.0 % 15.9 (H) Platelet Count 150 - 400 k/uL 359 MPV 9.0 - 12.7 fL 9.4 Neut% % 80.8 Abs Neut (ANC) 1.45 - 7.50 k/uL 9.34 (H) Lymph% % 9.3 Abs Lymph 1.00 - 4.00 k/uL 1.07 Radford% % 8.1 Abs Radford <0.87 k/uL 0.93 (H) Eosin% % 0.9 Abs Eosin <0.46 k/uL 0.10 Baso% % 0.5 Abs Baso <0.11 k/uL 0.06 Immature Gran % % 0.4 IMMATURE GRANS (ABS) <0.10 k/uL 0.05 NRBC /100 WBC 0.0 Absolute nRBC <0.01 k/uL <0.01 DTYPE Auto Protein, Total 6.3 - 8.0 g/dL 6.4 Albumin 3.9 - 4.9 g/dL 4.1 Calcium 8.5 - 10.2 mg/dL 8.8 Bilirubin, Total 0.2 - 1.3 mg/dL 0.5 Alkaline Phosphatase 38 - 113 U/L 123 (H) AST 14 - 40 U/L 11 (L) ALT 10 - 54 U/L 16 Glucose 74 - 99 mg/dL 163 (H) BUN 9 - 24 mg/dL 19 Creatinine 0.73 - 1.22 mg/dL 0.79 Sodium 136 - 144 mmol/L 137 Potassium 3.7 - 5.1 mmol/L 4.2 Chloride 98 - 107 mmol/L 103 CO2 22 - 30 mmol/L 24 Anion Gap 8 - 15 mmol/L 10 eGFR >=60 mL/min/1.73m 95 LD 135 - 225 U/L 178 IMAGING: Whole-body PET 09/06/2022 demonstrated scattered increase areas of FDG uptake in the thoracic and lumbar spine as well as the right iliac wing, posterior ilium and left acetabulum. Calculated maximum SUV was 4.2. This fulfilled quantitative criteria for viable osseous neoplasm. PATHOLOGY: BM biopsy 09/22/2022: A-C. Bone marrow, aspirate smear and core biopsy, with clot section: - Lambda monotypic plasma cell neoplasm involving ~20% of the marrow cellularity. - See comment. D. Peripheral blood smear: - Neutrophilic leukocytosis. - Normocytic anemia. - Mild thrombocytosis. FISH from 2019: RESULT: ABNORMAL hybridization pattern (see interpretation). Anomaly Result 1p32 (CDKN2C): Normal pattern 1q21 (CKS1B): Normal pattern +9 (CEP9): Normal pattern t(11;14)(q13;q32)(IGH/CCND1): Positive (78/100) 13q14 (RB1): Normal pattern 14q32 (IGH): Positive for IGH translocation (78/100) +15 (CEP15): Normal pattern 17p13 (TP53): Normal pattern INTERPRETATION: These findings demonstrate a plasma cell population with t(11;14)/IGH-CCND1. These findings are consistent with the presence of a plasma cell neoplasm. In plasma cell myeloma, these findings are associated with standard risk disease. Correlation with metaphase cytogenetic analysis is suggested. 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 -Initial bone marrow biopsy 20% PCs in the core specimen. -PET 2018 revealed no suspicious skeletal lesions. -PET 08/2022 indicated lesions defining multiple myeloma. -Bone marrow--still had about 20% PCs. -Standard risk disease by FISH panel 2018. -Significant baseline sensory neuropathy. -Myeloma frailty score is 1 (intermediate). -He was not a candidate for transplant given his other comorbid conditions. He said he wouldn't want to undergo ASCT if medically cleared to do so. -Episode decompensated CHF (diastolic dysfunction). -Had worsening neuropathy from bortezomib. -Tolerating daratumumab and lenalidomide well. Therapy was on hold a while for colon cancer surgery. -Reviewed labs. Immunofixation detecting daratumumab and IgA. No light chain. -He has no severe or unexpected toxicity from therapy. Benefit of continuing outweighs risk. Plan: -Continue acyclovir. -Hold lenalidomide for now, but will restart if progresses. -Dexamethasone 8 mg PO weekly due to exacerbation of blood glucose at higher doses.. -Monthly monitoring of serum monoclonal protein and light chains. -Continue PPI since continuing dexamethasone. -Continue monitoring counts and iron levels (as indicated). -Continued follow-up with his PCP and refuse driver. -Continue monthly Zometa. (C18.7) Cancer of sigmoid colon (HCC) (S31.109A) Open wound of abdominal wall, initial encounter Assessment: -pT3 N0 M0 G2 stage IIA adenocarcinoma of the sigmoid colon. -pMMR. -High risk feature of macroscopic tumor perforation. -Tumor budding not reported. Plan: -Screening colonoscopy due 04/2024. -CTs around 05/2024. Low back pain. -Continue with CPM. Portions of this documentation were copied and pasted from previous office visit notes in order to provide a cohesive continuity of the history. The note has been reviewed and edited and updated as necessary. I spent a total of 15 minutes on the date of the service which included preparing to see the patient, [id number] patient care, completing clinical documentation, obtaining and/or reviewing separately obtained history, performing a medically appropriate examination, counseling and educating the pat ient/family/caregiver, ordering medications, tests, or procedures, communicating with other HCPs (not separately reported), and communicating results to the patient/family/caregiver. Katey Booker DO documented [facility] Telephone encounter Note * Telephone Encounter - Cha Bautista RN - 01/05/2024 1:09 PM EDT Patient notified. Cha Bautista RN [facility]09-12-2024 Miscellaneous Notes* Telephone Encounter - Cha Bautista RN - 01/05/2024 1:09 PM EDT Patient notified. Cha Bautista RN * Telephone Encounter - Katey Booker DO - 01/05/2024 1:04 PM EDT Okay to have cavities filled. Katey Booker DO * Telephone Encounter - Cha Bautista RN - 01/05/2024 11:32 AM EDT [place] Care Coordination FOLLOW-UP NOTE Patient identified by name and date of . YES Spoke to patient Summary: (Reason for follow-up) Dental questions Concerns: (New Barriers to care) Patient has a couple cavities that need to be filled, a couple are under my gums but should stillbe a pretty straight forward procedure. Patient is asking if he can have these filled? Patient doesn't have an appointment scheduled yet. Advised to schedule procedure towards the end of his cycle. Care Coordination Plan: Will follow up after speaking to Dr. Booker. Cha Bautista RN January 05, 2024 * Telephone Encounter - Cha Bautista RN - 01/05/2024 9:15 AM EDT [place] Care Coordination FOLLOW-UP NOTE Summary: (Reason for follow-up) Patient left a with questions pertaining to dental work. Care Coordination Plan: called patient, no answer, left a VM requesting a call back. Cha Bautista RN January 05, 2024 documented in [facility] Telephone encounter Note * Telephone Encounter - Katey Booker DO - 01/05/2024 1:04 PM EDT Okay to have cavities filled. Katey Booker DO [facility] Telephone encounter Note* Telephone Encounter - Cha Bautista RN - 01/05/2024 11:32 AM EDT [facility] Patient identified by name and date of . YES Spoke to patient Summary: (Reason for follow-up) Dental questions Concerns: (New Barriers to care) Patient has a couple cavities that need to be filled, a couple are under my gums but should stillbe a pretty straight forward procedure. Patient is asking if he can have these filled? Patient doesn't have an appointment scheduled yet. Advised to schedule procedure towards the end of his cycle. Care Coordination Plan: Will follow up after speaking to Dr. Booker. Cha Bautista RN January 05, 2024 [facility] Telephone encounter Note* Telephone Encounter - Cha Bautista RN - 01/05/2024 9:15 AM EDT [place] Care Coordination FOLLOW-UP NOTE Summary: (Reason for follow-up) Patient left a VM with questions pertaining to dental work. Care Coordination Plan: called patient, no answer, left a VM requesting a call back. Cha Bautista RN January 05, 2024 [facility] History of Present illness Narrative* Katey Booker, - 12/21/2023 10:35 AM EDT Diagnosis: 1) IgA lambda multiple myeloma. 2) High risk stage II colon cancer. HPI: The patient is a 73 yo male with PMH significant for DM (peripheral sensory neuropathy) CKD stage I, psoriasis, mixed hyperlipidemia, HTN (essential). He had a several year history of diabetes and established with Dr. Vega about 3 years prior to initial consultation here. A chemistry panel revealed an increase in the globulin fraction and therefore a serum protein electrophoresis and immunofixation was obtained. The patient was found to have a low level IgA lambda monoclonal protein with the M spike quantified at 0.7 g/dL. Urine protein electrophoresis was noted to have an atypical gamma without any quantification. The patient's serum chemistries were significant for creatinine of 1.0 mg/dL and a calcium of 8.6 mg/dL. The total protein was 7.8 g/dL with an albumin of 3.2 g/dL and a globulin fraction of 4.6 g/dL yielding an A/G ratio 0.7. Hepatocellular enzymes were normal. Sister diagnosed with retro-orbital lymphoma. Patient had daughter who at age 24 in 2003 from acute leukemia. Previous therapy: 1) VRd. Began 10/28. Current therapy: 1) Dd. x1 cycle. He had onset of dyspnea during the first week. Went to the ED and had CTA of chest ruled out PE. Was using his home oxygen which previously he only used at night when he felt he needed it. Was told he has mild COPD and asthma on top of it. He went back to the ED at [facility] 12/16 for worsening dyspnea. He was diagnosed with acute on chronic heart failure. BNP was elevated on presentation. CTA of the chest showed no evidence of PE. He was noted to have new moderate bilateral effusions and bilateral compressive atelectasis. He has preserved ejection fraction. Initially treated with furosemide drip. 2D echo demonstrated an EF of 70%. Symptoms improved but he was noted to be anemic and had a positive stool sample for occult blood. Underwent EGD which demonstrated severe erosive gastritis and 2 bleeding angiodysplastic lesions in the stomach which were treated with heater probe. He also had duodenitis which was biopsied. He was treated with pantoprazole 40 mg twice daily. He was able to taper oxygen down to 2 L and was discharged in 12/20. Underwent robotic laparoscopic sigmoid colectomy with colorectal anastomosis on 05/10/2023. Pathology: A. Colon, sigmoid, robotic laparoscopic colectomy -Invasive adenocarcinoma, moderately differentiated, 8.2 cm, extending into pericolonic tissue (seecomment) -Surgical margins negative for carcinoma and high-grade dysplasia -Negative for metastasis in thirty-four of thirty-four pericolic lymph nodes (0/34) B. Colon, distal donut, excision -Colonic mucosa with no significant pathologic abnormality Diagnosis Comment Microscopic examination demonstrates a moderately differentiated invasive adenocarcinoma, extendinginto pericolonic tissue. There is extensive abscess formation associated with gross/macroscopic tumor perforation and an exuberant pericolonic inflammatory response that is undermining the tumor. There is no tumor identified within the abscess cavity itself or at the site of perforation, consistentwith a pT3 staging classification. A. Colon, sigmoid, robotic laparoscopic colectomy -Invasive adenocarcinoma, moderately differentiated, 8.2 cm, extending into pericolonic tissue (seecomment) -Surgical margins negative for carcinoma and high-grade dysplasia -Negative for metastasis in thirty-four of thirty-four pericolic lymph nodes (0/34) B. Colon, distal donut, excision -Colonic mucosa with no significant pathologic abnormality Diagnosis Comment Microscopic examination demonstrates a moderately differentiated invasive adenocarcinoma, extendinginto pericolonic tissue. There is extensive abscess formation associated with gross/macroscopic tumor perforation and an exuberant pericolonic inflammatory response that is undermining the tumor. There is no tumor identified within the abscess cavity itself or at the site of perforation, consistentwith a pT3 staging classification. COLON AND RECTUM: Resection, Including Transanal Disk Excision of Rectal Neoplasms 8th Edition - Protocol posted: 10/14/2021 COLON AND RECTUM: RESECTION - A SPECIMEN Procedure Sigmoidectomy TUMOR Tumor Site Sigmoid colon Histologic Type Adenocarcinoma Histologic Grade G2, moderately differentiated Tumor Size Greatest dimension (Centimeters): 8.2 cm Tumor Extent Invades through muscularis propria into the pericolonic or perirectal tissue Macroscopic Tumor Perforation Present Lymphovascular Invasion Not identified Perineural Invasion Not identified Treatment Effect No known presurgical therapy MARGINS Margin Status for Invasive Carcinoma All margins negative for invasive carcinoma Closest Margin(s) to Invasive Carcinoma mesorectal margin Distance from Invasive Carcinoma to Closest Margin 2.1 cm Margin Status for Non-Invasive Tumor All margins negative for high-grade dysplasia / intramucosal carcinoma and low-grade dysplasia REGIONAL LYMPH NODES Regional Lymph Node Status All regional lymph nodes negative for tumor Number of Lymph Nodes Examined 34 Tumor Deposits Not identified PATHOLOGIC STAGE CLASSIFICATION (pTNM, AJCC 8th Edition) Reporting of pT, pN, and (when applicable) pM categories is based on information available to the pathologist at the time the report is issued. As per the AJCC (Chapter 1, 8th Ed.) it is the managingphysician s responsibility to establish the final pathologic stage based upon all pertinent information, including but potentially not limited to this pathology report. pT Category pT3 pN Category pN0 Results Mismatch Repair Protein Immunohistochemistry Results: MLH1: Normal/Intact Nuclear Expression PMS2: Normal/Intact Nuclear Expression MSH2: Normal/Intact Nuclear Expression MSH6: Normal/Intact Nuclear Expression Presents for ongoing oncologic management. Interim history: No change in sensory neuropathy: Doesn't drive due to baseline neuropathy of the feet. Extends prison up the LEs b/l. Fingers tingle and numb. On gabapentin for low back pain. Had injections--helped a few days. Appetite normal. Formed stools. Occasional constipation. Blood sugars doing well. PMH, medications and allergies personally reviewed by me today. Any changes documented in appropriate section. PHYSICAL EXAM: Vitals: Blood pressure 136/66, pulse 65, temperature 36.6 C (97.8 F), temperature source Temporal, weight 134.3 kg (296 lb), SpO2 92%.Well-appearing and in no acute distress. EYES: Sclerae are anicteric bilaterally. LYMPHATIC: There is no palpable cervical or supraclavicular adenopathy. RESPIRATORY: Inspiratory breath sounds are of diminished intensity in all ambrose. CARDIOVASCULAR: Rhythm is regular. ABDOMEN: The abdomen is nondistended. Extremities: No swelling or edema. SKIN: No jaundice or rash. No petechiae. NEUROLOGIC: turf grower II-XII are grossly intact. No focal motor weakness. LABS: IMAGING: Whole-body PET 09/06/2022 demonstrated scattered increase areas of FDG uptake in the thoracic and lumbar spine as well as the right iliac wing, posterior ilium and left acetabulum. Calculated maximum SUV was 4.2. This fulfilled quantitative criteria for viable osseous neoplasm. PATHOLOGY: BM biopsy 09/22/2022: A-C. Bone marrow, aspirate smear and core biopsy, with clot section: - Lambda monotypic plasma cell neoplasm involving ~20% of the marrow cellularity. - See comment. D. Peripheral blood smear: - Neutrophilic leukocytosis. - Normocytic anemia. - Mild thrombocytosis. FISH from 2019: RESULT: ABNORMAL hybridization pattern (see interpretation). Anomaly Result 1p32 (CDKN2C): Normal pattern 1q21 (CKS1B): Normal pattern +9 (CEP9): Normal pattern t(11;14)(q13;q32)(IGH/CCND1): Positive (78/100) 13q14 (RB1): Normal pattern 14q32 (IGH): Positive for IGH translocation (78/100) +15 (CEP15): Normal pattern 17p13 (TP53): Normal pattern INTERPRETATION: These findings demonstrate a plasma cell population with t(11;14)/IGH-CCND1. These findings are consistent with the presence of a plasma cell neoplasm. In plasma cell myeloma, these findings are associated with standard risk disease. Correlation with metaphase cytogenetic analysis is suggested. 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 -Initial bone marrow biopsy 20% PCs in the core specimen. -PET 2018 revealed no suspicious skeletal lesions. -PET 08/2022 indicated lesions defining multiple myeloma. -Bone marrow--still had about 20% PCs. -Standard risk disease by FISH panel 2018. -Significant baseline sensory neuropathy. -Myeloma frailty score is 1 (intermediate). -He was not a candidate for transplant given his other comorbid conditions. He said he wouldn't want to undergo ASCT if medically cleared to do so. -Episode decompensated CHF (diastolic dysfunction). -Had worsening neuropathy from bortezomib. -Tolerating daratumumab and lenalidomide well. Therapy was on hold a while for colon cancer surgery. -Reviewed labs. Immunofixation detecting daratumumab and IgA. -He has no severe or unexpected toxicity from therapy. Benefit of continuing outweighs risk. Plan: -Continue acyclovir. -Hold lenalidomide for now, but will restart if progresses. -Dexamethasone 8 mg PO weekly due to exacerbation of blood glucose at higher doses.. -Monthly monitoring of serum monoclonal protein and light chains. -Continue PPI since continuing dexamethasone. -Continue monitoring counts and iron levels (as indicated). -Continued follow-up with his PCP and refuse driver. -Continue monthly Zometa. (C18.7) Cancer of sigmoid colon (HCC) (S31.109A) Open wound of abdominal wall, initial encounter Assessment: -pT3 N0 M0 G2 stage IIA adenocarcinoma of the sigmoid colon. -pMMR. -High risk feature of macroscopic tumor perforation. -Tumor budding not reported. -Reviewed CTs. ROSALIO. Plan: -Screening colonoscopy due 04/2024. -CTs in about 6 months. Low back pain. -Continue with CPM. Portions of this documentation were copied and pasted from previous office visit notes in order to provide a cohesive continuity of the history. The note has been reviewed and edited and updated as necessary. I spent a total of 202 minutes on the date of the service which included preparing to see the patient, [id number] patient care, completing clinical documentation, obtaining and/or reviewing separately obtained history, performing a medically appropriate examination, counseling and educating the pa tient/family/caregiver, communicating with other HCPs (not separately reported), and communicating results to the patient/family/caregiver. Katey Booker DO documented in this encounter[facility]08-[facility] Telephone encounter Note * Telephone Encounter - Tabby Camarillo LPN - 12/19/2023 1:23 PM EDT Sent MC message to pt. Left VM message as well asking pt to return call or read MC message. Tabby Camarillo LPN [facility]08-[facility]-20[facility] Miscellaneous Notes* Telephone Encounter - Tabby Camarillo LPN - 12/19/2023 1:23 PM EDT Sent MC message to pt. Left VM message as well asking pt to return call or read MC message. Tabby Camarillo LPN * Telephone Encounter - Tabby Camarillo LPN - 12/19/2023 1:20 PM EDT ----- Message from Katey Booker DO sent at 12/19/2023 1:07 PM EDT ----- CT scan suggest no recurrence of colon cancer. documented in this encounterEast [facility]08-[facility]-20[facility] Telephone encounter Note * Telephone Encounter - Tabby Camarillo LPN - 12/19/2023 1:20 PM EDT ----- Message from Katey Booker DO sent at 12/19/2023 1:07 PM EDT ----- CT scan suggest no recurrence of colon cancer. [facility]08-22-20[facility] History of Present illness Narrative* Reef Kamilla Sky, RT(R) - 12/15/2023 10:40 AM EDT Radiology Service Progress Note DATE OF SERVICE: December 15, 2023 TIME: 2:47 PM PATIENT IDENTITY VERIFICATION COMPLETED USING TWO (2) STANDARD IDENTIFIERS: Name and Date of confirmed by patient verbally. FALL SCREENING: Has the patient had 2 falls in the last year or 1 fall with injury or currently using an Ambulatory Assistive Device (Walker, Cane, Wheelchair, Crutches, etc.)? No PATIENT GENDER DATA: Male PATIENT RELEVANT IMPLANT DATA REVIEWED: Yes PATIENT PRESENTS WITH AN IMPLANTABLE OR ATTACHED CHINA PAINTER: No ALLERGIES: Reviewed and unchanged CONTRAST ALLERGY: NO. EXAM: CT -CONTRAST INDUCED NEPHROPATHY RISK FACTORS: Patient age > 60 years CREATININE: Creatinine Date Value Ref Range Status 12/07/2023 0.66 (L) 0.73 - 1.22 mg/dL Final 11/23/2023 0.79 0.73 - 1.22 mg/dL Final 11/09/2023 0.77 0.73 - 1.22 mg/dL Final Estimated Glomerular Filtration Rate Date Value Ref Range Status 12/07/2023 100 >=60 mL/min/1.73m Final Comment: Estimated Glomerular Filtration Rate (eGFR) is calculated using the 2020 CKD-EPI creatinine equation. This equation utilizes serum creatinine, sex, and age as parameters. The creatinine assay has traceable calibration to isotope dilution- mass spectrometry. Refer to KDIGO guidelines for clinical interpretation. In patients with unstable renal function, e.g. those with acute kidney injury, the eGFRmay not accurately reflect actual GFR. eGFR- Date Value Ref Range Status 01/27/2021 >60 Final P.O.C.T. RESULTS: POC done: Yes, See Lab Tab December 15, 2023 TREATMENT: N/A PERIPHERAL IV DATA: Ambulatory: A peripheral IV was started in the Left antecubital site with a Angio cath: 22 gauge. RADIOLOGY DEPARTMENT: CT; Exam(s) Completed: Chest Abdomen Pelvis SIGNATURE: RT Bob(R) PATIENT NAME: Cyn James JR DATE: December 15, 2023 TIME: 2:47 PM documented in this encounterEast [facility]08-22-2024 [facility] Telephone encounter Note* Telephone Encounter - Rachana Torres LPN - 11/23/2023 10:25 AM EDT I spoke with Dr. Lo's office and informed them of below information. They said that they were aware that they are having issues with their fax for several months. PSS- if you faxed anything on this patient you'll have to fax it again. Rachana Torres LPN [facility]-31-[facility] Miscellaneous Notes* Telephone Encounter - Rachana Torres LPN - 11/23/2023 10:25 AM EDT I spoke with Dr. Lo's office and informed them of below information. They said that they were aware that they are having issues with their fax for several months. PSS- if you faxed anything on this patient you'll have to fax it again. Rachana Torres LPN * Telephone Encounter - Dangelo Lopez - 11/23/2023 10:09 AM EDT Received call from Dr. Gusman's office that they are receiving faxes at [phone] which are intended for Dr. Lo. She states faxes have been sent back to us to correct fax #, however, they continue to be faxed to them. Dr. Lo is not receiving faxes. documented in this encounterEast [facility]07-31-2024 Telephone encounter Note * Telephone Encounter - Dangelo Lopez - 11/23/2023 10:09 AM EDT Received call from Dr. Gusman's office that they are receiving faxes at [phone] which are intended for Dr. Lo. She states faxes have been sent back to us to correct fax #, however, they continue to be faxed to them. Dr. Lo is not receiving faxes. [facility] Work Phone: [phone]) 997-679207-31-2024 Note* Addendum Note - Katey Booker DO - 11/23/2023 9:51 AM EDTAddended by: KATEY BOOKER on: 11/23/2023 09:51 AM Modules accepted: Orders [facility] Miscellaneous Notes* Addendum Note - Katey Booker DO - 11/23/2023 9:51 AM EDTAddended by: KATEY BOOKER on: 11/23/2023 09:51 AM Modules accepted: Orders * Addendum Note - Rachana Torres LPN - 11/23/2023 9:46 AM EDTAddended by: RACHANA TORRES on: 11/23/2023 09:46 AM Modules accepted: Orders documented in this encounterEast [facility] Hospital07-31-2024 NoteHNO ID: [id number] Author: VERONIKA BARAJAS RN Service: ? Author Type: Registered Nurse Type: Progress Notes Filed: 11/23/2023 10:02 Note Text: .[facility] History of Present illness Narrative* Veronika Barajas RN - 11/23/2023 9:49 AM EDT . documented in this encounterEast [facility] Hospital07-31-2024 Note* Addendum Note - Rachana Torres LPN - 11/23/2023 9:46 AM EDTAddended by: RACHANA TORRES on: 11/23/2023 09:46 AM Modules accepted: Orders [facility]07-[facility]-2024 [facility]07-[facility]24 History of Present illness Narrative* Katey Booker, - 11/23/2023 9:23 AM EDT Diagnosis: 1) IgA lambda multiple myeloma. 2) High risk stage II colon cancer. HPI: The patient is a 73 yo male with PMH significant for DM (peripheral sensory neuropathy) CKD stage I, psoriasis, mixed hyperlipidemia, HTN (essential). He had a several year history of diabetes and established with Dr. Vega about 3 years prior to initial consultation here. A chemistry panel revealed an increase in the globulin fraction and therefore a serum protein electrophoresis and immunofixation was obtained. The patient was found to have a low level IgA lambda monoclonal protein with the M spike quantified at 0.7 g/dL. Urine protein electrophoresis was noted to have an atypical gamma without any quantification. The patient's serum chemistries were significant for creatinine of 1.0 mg/dL and a calcium of 8.6 mg/dL. The total protein was 7.8 g/dL with an albumin of 3.2 g/dL and a globulin fraction of 4.6 g/dL yielding an A/G ratio 0.7. Hepatocellular enzymes were normal. Sister diagnosed with retro-orbital lymphoma. Patient had daughter who at age 24 in 2003 from acute leukemia. Previous therapy: 1) VRd. Began 10/28. Current therapy: 1) Dd. x1 cycle. He had onset of dyspnea during the first week. Went to the ED and had CTA of chest ruled out PE. Was using his home oxygen which previously he only used at night when he felt he needed it. Was told he has mild COPD and asthma on top of it. He went back to the ED at [facility] 12/16 for worsening dyspnea. He was diagnosed with acute on chronic heart failure. BNP was elevated on presentation. CTA of the chest showed no evidence of PE. He was noted to have new moderate bilateral effusions and bilateral compressive atelectasis. He has preserved ejection fraction. Initially treated with furosemide drip. 2D echo demonstrated an EF of 70%. Symptoms improved but he was noted to be anemic and had a positive stool sample for occult blood. Underwent EGD which demonstrated severe erosive gastritis and 2 bleeding angiodysplastic lesions in the stomach which were treated with heater probe. He also had duodenitis which was biopsied. He was treated with pantoprazole 40 mg twice daily. He was able to taper oxygen down to 2 L and was discharged in 12/20. Underwent robotic laparoscopic sigmoid colectomy with colorectal anastomosis on 05/10/2023. Pathology: A. Colon, sigmoid, robotic laparoscopic colectomy -Invasive adenocarcinoma, moderately differentiated, 8.2 cm, extending into pericolonic tissue (seecomment) -Surgical margins negative for carcinoma and high-grade dysplasia -Negative for metastasis in thirty-four of thirty-four pericolic lymph nodes (0/34) B. Colon, distal donut, excision -Colonic mucosa with no significant pathologic abnormality Diagnosis Comment Microscopic examination demonstrates a moderately differentiated invasive adenocarcinoma, extendinginto pericolonic tissue. There is extensive abscess formation associated with gross/macroscopic tumor perforation and an exuberant pericolonic inflammatory response that is undermining the tumor. There is no tumor identified within the abscess cavity itself or at the site of perforation, consistentwith a pT3 staging classification. A. Colon, sigmoid, robotic laparoscopic colectomy -Invasive adenocarcinoma, moderately differentiated, 8.2 cm, extending into pericolonic tissue (seecomment) -Surgical margins negative for carcinoma and high-grade dysplasia -Negative for metastasis in thirty-four of thirty-four pericolic lymph nodes (0/34) B. Colon, distal donut, excision -Colonic mucosa with no significant pathologic abnormality Diagnosis Comment Microscopic examination demonstrates a moderately differentiated invasive adenocarcinoma, extendinginto pericolonic tissue. There is extensive abscess formation associated with gross/macroscopic tumor perforation and an exuberant pericolonic inflammatory response that is undermining the tumor. There is no tumor identified within the abscess cavity itself or at the site of perforation, consistentwith a pT3 staging classification. COLON AND RECTUM: Resection, Including Transanal Disk Excision of Rectal Neoplasms 8th Edition - Protocol posted: 10/14/2021 COLON AND RECTUM: RESECTION - A SPECIMEN Procedure Sigmoidectomy TUMOR Tumor Site Sigmoid colon Histologic Type Adenocarcinoma Histologic Grade G2, moderately differentiated Tumor Size Greatest dimension (Centimeters): 8.2 cm Tumor Extent Invades through muscularis propria into the pericolonic or perirectal tissue Macroscopic Tumor Perforation Present Lymphovascular Invasion Not identified Perineural Invasion Not identified Treatment Effect No known presurgical therapy MARGINS Margin Status for Invasive Carcinoma All margins negative for invasive carcinoma Closest Margin(s) to Invasive Carcinoma mesorectal margin Distance from Invasive Carcinoma to Closest Margin 2.1 cm Margin Status for Non-Invasive Tumor All margins negative for high-grade dysplasia / intramucosal carcinoma and low-grade dysplasia REGIONAL LYMPH NODES Regional Lymph Node Status All regional lymph nodes negative for tumor Number of Lymph Nodes Examined 34 Tumor Deposits Not identified PATHOLOGIC STAGE CLASSIFICATION (pTNM, AJCC 8th Edition) Reporting of pT, pN, and (when applicable) pM categories is based on information available to the pathologist at the time the report is issued. As per the AJCC (Chapter 1, 8th Ed.) it is the managingphysician s responsibility to establish the final pathologic stage based upon all pertinent information, including but potentially not limited to this pathology report. pT Category pT3 pN Category pN0 Results Mismatch Repair Protein Immunohistochemistry Results: MLH1: Normal/Intact Nuclear Expression PMS2: Normal/Intact Nuclear Expression MSH2: Normal/Intact Nuclear Expression MSH6: Normal/Intact Nuclear Expression Presents for ongoing oncologic management. Interim history: Saw chronic pain management at [facility]. Rx gabapentin. Otherwise, all below verified again today. No change in sensory neuropathy: Cannot drive due to baseline neuropathy of the feet. Extends prison up the LEs b/l. Fingers tingle and numb. Appetite normal. Formed stools. Occasional constipation. PMH, medications and allergies personally reviewed by me today. Any changes documented in appropriate section. PHYSICAL EXAM: Vitals: Blood pressure 126/53, pulse (!) 59, temperature 36.5 C (97.7 F), temperature source Temporal, weight (!) 136.3 kg (300 lb 8 oz), SpO2 92%.Well- appearing and in no acute distress. EYES: Sclerae are anicteric bilaterally. LYMPHATIC: There is no palpable cervical or supraclavicular adenopathy. RESPIRATORY: Inspiratory breath sounds are of diminished intensity in all ambrose. CARDIOVASCULAR: Rhythm is regular. ABDOMEN: The abdomen is nondistended. Extremities: No swelling or edema. SKIN: No jaundice or rash. No petechiae. NEUROLOGIC: turf grower II-XII are grossly intact. No focal motor weakness. LABS: IMAGING: Whole-body PET 09/06/2022 demonstrated scattered increase areas of FDG uptake in the thoracic and lumbar spine as well as the right iliac wing, posterior ilium and left acetabulum. Calculated maximum SUV was 4.2. This fulfilled quantitative criteria for viable osseous neoplasm. PATHOLOGY: BM biopsy 09/22/2022: A-C. Bone marrow, aspirate smear and core biopsy, with clot section: - Lambda monotypic plasma cell neoplasm involving ~20% of the marrow cellularity. - See comment. D. Peripheral blood smear: - Neutrophilic leukocytosis. - Normocytic anemia. - Mild thrombocytosis. FISH from 2019: RESULT: ABNORMAL hybridization pattern (see interpretation). Anomaly Result 1p32 (CDKN2C): Normal pattern 1q21 (CKS1B): Normal pattern +9 (CEP9): Normal pattern t(11;14)(q13;q32)(IGH/CCND1): Positive (78/100) 13q14 (RB1): Normal pattern 14q32 (IGH): Positive for IGH translocation (78/100) +15 (CEP15): Normal pattern 17p13 (TP53): Normal pattern INTERPRETATION: These findings demonstrate a plasma cell population with t(11;14)/IGH-CCND1. These findings are consistent with the presence of a plasma cell neoplasm. In plasma cell myeloma, these findings are associated with standard risk disease. Correlation with metaphase cytogenetic analysis is suggested. 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 -Initial bone marrow biopsy 20% PCs in the core specimen. -PET 2019 revealed no suspicious skeletal lesions. -PET 08/2022 indicated lesions defining multiple myeloma. -Bone marrow--still had about 20% PCs. -Standard risk disease by FISH panel 2019. -Significant baseline sensory neuropathy. -Myeloma frailty score is 1 (intermediate). -He was not a candidate for transplant given his other comorbid conditions. He said he wouldn't want to undergo ASCT if medically cleared to do so. -Episode decompensated CHF (diastolic dysfunction). -Reviewed trend of monoclonal protein. -Had worsening neuropathy from bortezomib. -Was tolerating daratumumab and lenalidomide well. Therapy was on hold for colon cancer surgery. -Reviewed labs. Immunofixation detecting daratumumab and IgA. IgA appears not to be quantifiable onelectrophoresis. -He has no severe or unexpected toxicity from therapy. Benefit of continuing outweighs risk. Plan: -Continue acyclovir. -Hold lenalidomide for now, but will restart if progresses. -Dexamethasone 8 mg PO weekly due to exacerbation of blood glucose at higher doses.. -Every 3 month monitoring of serum monoclonal protein and light chains. -CBC/CMP monthly. -Continue PPI since continuing dexamethasone. -Continue monitoring counts and iron levels (as indicated). -Continued follow-up with his PCP and refuse driver. -Continue monthly Zometa. (C18.7) Cancer of sigmoid colon (HCC) (S31.109A) Open wound of abdominal wall, initial encounter Assessment: -pT3 N0 M0 G2 stage IIA adenocarcinoma of the sigmoid colon. -pMMR. -High risk feature of macroscopic tumor perforation. -Tumor budding not reported. -Previously discussed TB recs. Discussed R/B/A to adjuvant therapy. He has significant baseline neuropathy from diabetes impacting his quality of life. He is over the age of 72 and has a competing cause for mortality, i.e. multiple myeloma. Given many treatment options going forward and the fact that serum monoclonal protein is now on quantifiable by electrophoresis, recommended adjuvant treatment for colon cancer. After further consideration, he declined adjuvant chemotherapy for colon cancer. Plan: -CT chest, abdomen pelvis prior to next OV. -Screening colonoscopy due 04/2024. Low back pain. -Continue with CPM. Portions of this documentation were copied and pasted from previous office visit notes in order to provide a cohesive continuity of the history. The note has been reviewed and edited and updated as necessary. I spent a total of 15 minutes on the date of the service which included preparing to see the patient, [id number] patient care, completing clinical documentation, obtaining and/or reviewing separately obtained history, performing a medically appropriate examination, counseling and educating the pat ient/family/caregiver, ordering medications, tests, or procedures, communicating with other HCPs (not separately reported), and communicating results to the patient/family/caregiver. Katey Booker DO documented in this encounterEast [facility]07-[facility] History of Present illness Narrative* Marisol Hollis RN - 11/09/2023 10:[address] Booker at chairside d/t abnormal HR. EKG ordered and then reviewed by Per Dr. Booker- keep appointment with last remodeler repairer and follow up with him. documented in this encounterEast [facility]07-[facility] History of Present illness Narrative* Susan Agustin, PEDIATRIC SOCIAL WORKER.ENROUTE CONTROLLER - 10/26/2023 8:38 AM EDT Chief Complaint Patient presents with: Established Patient HPI: Cyn James JR is a 73 year old male who presents here today for evaluation for treatment today. Per Dr. Booker's previous note: H/o DM (peripheral sensory neuropathy) CKD stage I, psoriasis, mixed hyperlipidemia, HTN (essential). He had a several year history of diabetes and established with Dr. Vega about 3 years prior to initial consultation here. A chemistry panel revealed an increase in the globulin fraction and therefore a serum protein electrophoresis and immunofixation was obtained. The patient was found to have a low level IgA lambda monoclonal protein with the M spike quantified at 0.7 g/dL. Urine protein electrophoresis was noted to have an atypical gamma without any quantification. The patient's serum chemistries were significant for creatinine of 1.0 mg/dL and a calcium of 8.6 mg/dL. The total protein was 7.8 g/dL with an albumin of 3.2 g/dL and a globulin fraction of 4.6 g/dL yielding an A/G ratio 0.7. Hepatocellular enzymes were normal. Sister diagnosed with retro-orbital lymphoma. Patient had daughter who at age 24 in 2003 from acute leukemia. Previous therapy: 1) VRd. Began 10/28. Current therapy: 1) Dd. x1 cycle. He had onset of dyspnea during the first week. Went to the ED and had CTA of chest ruled out PE. Was using his home oxygen which previously he only used at night when he felt he needed it. Was told he has mild COPD and asthma on top of it. He went back to the ED at [facility] 12/16 for worsening dyspnea. He was diagnosed with acute on chronic heart failure. BNP was elevated on presentation. CTA of the chest showed no evidence of PE. He was noted to have new moderate bilateral effusions and bilateral compressive atelectasis. He has preserved ejection fraction. Initially treated with furosemide drip. 2D echo demonstrated an EF of 70%. Symptoms improved but he was noted to be anemic and had a positive stool sample for occult blood. Underwent EGD which demonstrated severe erosive gastritis and 2 bleeding angiodysplastic lesions in the stomach which were treated with heater probe. He also had duodenitis which was biopsied. He was treated with pantoprazole 40 mg twice daily. He was able to taper oxygen down to 2 L and was discharged in 12/20. Underwent robotic laparoscopic sigmoid colectomy with colorectal anastomosis on 05/10/2023. Pathology: A. Colon, sigmoid, robotic laparoscopic colectomy -Invasive adenocarcinoma, moderately differentiated, 8.2 cm, extending into pericolonic tissue (seecomment) -Surgical margins negative for carcinoma and high-grade dysplasia -Negative for metastasis in thirty-four of thirty-four pericolic lymph nodes (0/34) B. Colon, distal donut, excision -Colonic mucosa with no significant pathologic abnormality Diagnosis Comment Microscopic examination demonstrates a moderately differentiated invasive adenocarcinoma, extendinginto pericolonic tissue. There is extensive abscess formation associated with gross/macroscopic tumor perforation and an exuberant pericolonic inflammatory response that is undermining the tumor. There is no tumor identified within the abscess cavity itself or at the site of perforation, consistentwith a pT3 staging classification. A. Colon, sigmoid, robotic laparoscopic colectomy -Invasive adenocarcinoma, moderately differentiated, 8.2 cm, extending into pericolonic tissue (seecomment) -Surgical margins negative for carcinoma and high-grade dysplasia -Negative for metastasis in thirty-four of thirty-four pericolic lymph nodes (0/34) B. Colon, distal donut, excision -Colonic mucosa with no significant pathologic abnormality Diagnosis Comment Microscopic examination demonstrates a moderately differentiated invasive adenocarcinoma, extendinginto pericolonic tissue. There is extensive abscess formation associated with gross/macroscopic tumor perforation and an exuberant pericolonic inflammatory response that is undermining the tumor. There is no tumor identified within the abscess cavity itself or at the site of perforation, consistentwith a pT3 staging classification. COLON AND RECTUM: Resection, Including Transanal Disk Excision of Rectal Neoplasms 8th Edition - Protocol posted: 10/14/2021 COLON AND RECTUM: RESECTION - A SPECIMEN Procedure Sigmoidectomy TUMOR Tumor Site Sigmoid colon Histologic Type Adenocarcinoma Histologic Grade G2, moderately differentiated Tumor Size Greatest dimension (Centimeters): 8.2 cm Tumor Extent Invades through muscularis propria into the pericolonic or perirectal tissue Macroscopic Tumor Perforation Present Lymphovascular Invasion Not identified Perineural Invasion Not identified Treatment Effect No known presurgical therapy MARGINS Margin Status for Invasive Carcinoma All margins negative for invasive carcinoma Closest Margin(s) to Invasive Carcinoma mesorectal margin Distance from Invasive Carcinoma to Closest Margin 2.1 cm Margin Status for Non-Invasive Tumor All margins negative for high-grade dysplasia / intramucosal carcinoma and low-grade dysplasia REGIONAL LYMPH NODES Regional Lymph Node Status All regional lymph nodes negative for tumor Number of Lymph Nodes Examined 34 Tumor Deposits Not identified PATHOLOGIC STAGE CLASSIFICATION (pTNM, AJCC 8th Edition) Reporting of pT, pN, and (when applicable) pM categories is based on information available to the pathologist at the time the report is issued. As per the AJCC (Chapter 1, 8th Ed.) it is the managingphysician s responsibility to establish the final pathologic stage based upon all pertinent information, including but potentially not limited to this pathology report. pT Category pT3 pN Category pN0 Results Mismatch Repair Protein Immunohistochemistry Results: MLH1: Normal/Intact Nuclear Expression PMS2: Normal/Intact Nuclear Expression MSH2: Normal/Intact Nuclear Expression MSH6: Normal/Intact Nuclear Expression No new concerns today. Pt. here with family member. Appetite:I have a good appetite. Energy level:Pretty good. Denies fevers. Mouth:denies sores Resp:denies cough or sob Cardiac:denies chest pain/palpitations GI:denies abd pain, n/v, moving bowels reguarly :denies dysuria/hematuria Extrem:+low back pain-MRI done, denies pain elsewhere Neuro:+DM neuropathy-stable Skin:denies rashes Heme:denies bleeding The ROS is otherwise negative. Past medical history, appointments, medications, allergies reviewed. No changes. EXAM: BP 138/74 Pulse 71 Temp 36.3 C (97.3 F) (Temporal) SpO2 94% APPEARANCE Well appearing, alert, in no acute distress, well-hydrated, well nourished. HEART RRR with normal S1 and S2, no murmurs LUNG clear to auscultation LYMPH NODES No cervical lymphadenopathy, No supraclavicular lymphadenopathy, and No axillary lymphadenopathy. ABDOMEN bowel sounds normoactive, soft, non-tender, non-distended EXTREMITIES No edema NEURO Awake, alert and oriented x 3, Normal gait, and No involuntary motions. SKIN Skin color, texture, turgor normal, no suspicious rashes or lesions LABS: Latest Ref Rng 09/28/2023 10/12/2023 10/26/2023 WBC 3.70 - 11.00 k/uL 10.40 10.72 9.48 RBC 4.20 - 6.00 m/uL 4.85 5.20 5.41 Hemoglobin 13.0 - 17.0 g/dL 12.3 (L) 12.9 (L) 13.4 Hematocrit 39.0 - 51.0 % 39.3 41.7 43.7 MCV 80.0 - 100.0 fL 81.0 80.2 80.8 MCH 26.0 - 34.0 pg 25.4 (L) 24.8 (L) 24.8 (L) MCHC 30.5 - 36.0 g/dL 31.3 30.9 30.7 RDW-CV 11.5 - 15.0 % 15.5 (H) 15.4 (H) 15.9 (H) Platelet Count 150 - 400 k/uL 324 437 (H) 346 MPV 9.0 - 12.7 fL 10.2 9.4 9.8 Neut% % 80.1 78.9 71.3 Abs Neut (ANC) 1.45 - 7.50 k/uL 8.34 (H) 8.46 (H) 6.75 Lymph% % 7.4 10.6 15.1 Abs Lymph 1.00 - 4.00 k/uL 0.77 (L) 1.14 1.43 Radford% % 10.3 7.7 10.1 Abs Radford <0.87 k/uL 1.07 (H) 0.83 0.96 (H) Eosin% % 1.2 1.6 2.5 Abs Eosin <0.46 k/uL 0.12 0.17 0.24 Baso% % 0.5 0.7 0.6 Abs Baso <0.11 k/uL 0.05 0.07 0.06 Immature Gran % % 0.5 0.5 0.4 IMMATURE GRANS (ABS) <0.10 k/uL 0.05 0.05 0.04 NRBC /100 WBC 0.0 0.0 0.0 Absolute nRBC <0.01 k/uL <0.01 <0.01 <0.01 DTYPE Auto Auto Auto CMP/MM labs: Pending RADIOLOGY: MRI LS spine 10/10/23: IMPRESSION: Multilevel degenerative changes as detailed. No high-grade spinal canal stenosis, no high-grade neuroforaminal stenosis, and no apparent nerve root impingement otherwise. No apparent pathologic marrow replacement. Anatomic Thoracic/Lumbar Variant: None. L4-5 is considered the level of the iliac crest and assume there are 5 lumbar-type vertebrae. ASSESSMENT/PLAN: 1. Multiple myeloma not having achieved remission (HCC) - ICD9: 203.00, ICD10: C90.[address] 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 -Initial bone marrow biopsy 20% PCs in the core specimen. -PET 2018 revealed no suspicious skeletal lesions. -PET 08/2022 indicated lesions defining multiple myeloma. -Bone marrow--still had about 20% PCs. -Standard risk disease by FISH panel 2018. -Significant baseline sensory neuropathy. -Myeloma frailty score is 1 (intermediate). -He was not a candidate for transplant given his other comorbid conditions. He said he wouldn't want to undergo ASCT if medically cleared to do so. -Episode decompensated CHF (diastolic dysfunction). -Reviewed trend of monoclonal protein. Down about 30%. -Had worsening neuropathy from bortezomib. -Was tolerating daratumumab and lenalidomide well. -Therapy was on hold for colon cancer surgery. -Reviewed labs. Immunofixation detecting daratumumab. No IgA monoclonal protein. CR. -He has no severe or unexpected toxicity from therapy. Benefit of continuing outweighs risk. Plan: -Continue acyclovir. -Hold lenalidomide for now, but will restart if progresses. -Dexamethasone 8 mg PO weekly due to exacerbation of blood glucose at higher doses.. -Every 3 month monitoring of serum monoclonal protein and light chains. -CBC/CMP monthly. -CBC each treatment. -Continue PPI since continuing dexamethasone. -Continue monitoring counts and iron levels (as indicated). -Continued follow-up with his PCP and refuse driver. -Continue monthly Zometa. (C18.7) Cancer of sigmoid colon (HCC) (S31.109A) Open wound of abdominal wall, initial encounter Assessment: -pT3 N0 M0 G2 stage IIA adenocarcinoma of the sigmoid colon. -pMMR. -High risk feature of macroscopic tumor perforation. -Tumor budding not reported. -Previously discussed TB recs. Discussed R/B/A to adjuvant therapy. He has significant baseline neuropathy from diabetes impacting his quality of life. He is over the age of 72 and has a competing cause for mortality, i.e. multiple myeloma. Given many treatment options going forward and the fact that serum monoclonal protein is now on quantifiable by electrophoresis, recommended adjuvant treatment for colon cancer. After further consideration, he declined adjuvant chemotherapy for colon cancer. Plan: -CT chest, abdomen pelvis 6 months postop--October. Acute low back pain. -Could be musculoskeletal but given underlying disease MRI warranted. -Rx Skelaxin 800 mg every 8 hours as needed. - Overall tolerating darzelex well. - Reviewed CBC/MRI with pt. - Continue labs as scheduled. - Continue current medications. - Continue follow up with PCP. - Continue monthly zometa. - Follow up with Ortho as scheduled for back pain. - Proceed as scheduled for darzalex/zometa today pending labs. - Follow up as scheduled. - Pt. aware to call office with any questions/concerns. The patient indicates understanding of these issues and agrees with the plan. All documentation from previous visit of 09/28/23-Dr. Booker was copied and pasted, documentation has been reviewed and edited as necessary for today's visit. Susan Agustin APRN.JANICE documented in this encounterEast [facility]06-[facility]-2024 Telephone encounter Note * Telephone Encounter - Rubi Harris LPN - 10/13/2023 3:27 PM EDT Pt. Notified his UA is highly suggestive of UTI. Rx was sent to [facility] pharmacy. Take as directed. Pt. Voiced understanding. Rubi Harris LPN [facility]06-20-[facility] Miscellaneous Notes* Telephone Encounter - Rubi Harris LPN - 10/13/2023 3:27 PM EDT Pt. Notified his UA is highly suggestive of UTI. Rx was sent to [facility] pharmacy. Take as directed. Pt. Voiced understanding. Rubi Harris LPN * Telephone Encounter - Katey Booker DO - 10/13/2023 3:09 PM EDT UA highly suggestive of UTI. [facility]. [facility] encounter Note * Telephone Encounter - Katey Booker DO - 10/13/2023 3:09 PM EDT UA highly suggestive of UTI. Rx sent to [facility]. [facility] Note* Addendum Note - Katey Booker DO - 10/12/2023 12:00 PM EDTAddended by: KATEY BOOKER on: 10/12/2023 12:00 PM Modules accepted: Orders [facility]06-19-2024 Miscellaneous Notes* Addendum Note - Katey Booker DO - 10/12/2023 12:00 PM EDTAddended by: KATEY BOOKER on: 10/12/2023 12:00 PM Modules accepted: Orders * Telephone Encounter - Mana Nielson RN - 10/12/2023 11:03 AM EDT Pt here today for D15 C4 daratumumab. States he continues to have 6/10 lower back pain. Typically on the R side, describes it as a spasm.States he has minimal relief since starting therapy and Flexeril. Asking if you have any other suggestions. Pt also states he has been experiencing burning with urination. Started 1 week ago. Notices burningtypically at end of stream. Pt has been drinking 1/2 gal water daily and unsweetened iced tea. Pt states he also still experiences frequency. Pt scheduled to see GP today regarding back pain. Pt also states he has had a sore tooth. He c/o pain and discomfort in his jaw and ear. Will have GPlook at this also today. Please advise. Per Dr. Booker, obtain a UA. Hold zometa and allow GP to address back pain. documented [facility] Nurse Note* Mana Nielson RN - 10/12/2023 11:41 AM EDT Hold zometa due to jaw/ear pain and sensitive tooth. [facility] Note* Mana Nielson RN - 10/12/2023 11:41 AM EDT Hold zometa due to jaw/ear pain and sensitive tooth. * Mana Nielson RN - 10/12/2023 10:59 AM EDT Pt took premeds at home prior to appt. documented [facility] Telephone encounter Note * Telephone Encounter - Mana Nielson RN - 10/12/2023 11:03 AM EDT Pt here today for D15 C4 daratumumab. States he continues to have 6/10 lower back pain. Typically on the R side, describes it as a spasm.States he has minimal relief since starting therapy and Flexeril. Asking if you have any other suggestions. Pt also states he has been experiencing burning with urination. Started 1 week ago. Notices burningtypically at end of stream. Pt has been drinking 1/2 gal water daily and unsweetened iced tea. Pt states he also still experiences frequency. Pt scheduled to see GP today regarding back pain. Pt also states he has had a sore tooth. He c/o pain and discomfort in his jaw and ear. Will have GPlook at this also today. Please advise. Per Dr. Booker, obtain a UA. Hold zometa and allow GP to address back pain. [facility] Note* Mana Nielson RN - 10/12/2023 10:59 AM EDT Pt took premeds at home prior to appt. [facility] History of Present illness Narrative* Leonila Zuniga, RT(R) - 10/10/2023 9:20 AM EDT Radiology Service Progress Note DATE OF SERVICE: October 10, 2023 TIME: 9:52 AM PATIENT IDENTITY VERIFICATION COMPLETED USING TWO (2) STANDARD IDENTIFIERS: Name and Date of confirmed by patient verbally. FALL SCREENING: Has the patient had 2 falls in the last year or 1 fall with injury or currently using an Ambulatory Assistive Device (Walker, Cane, Wheelchair, Crutches, etc.)? No PATIENT GENDER DATA: Male PATIENT RELEVANT IMPLANT DATA REVIEWED: Yes PATIENT PRESENTS WITH AN IMPLANTABLE OR ATTACHED CHINA PAINTER: Yes Freestyle Brett ALLERGIES: Reviewed and unchanged CONTRAST ALLERGY: NO. EXAM: MRI - CONTRAST TYPE: GROUP II PERIPHERAL IV DATA: Ambulatory: A peripheral IV was started in the Right forearm with a Angio cath:22 gauge. RADIOLOGY DEPARTMENT: MR; Exam(s) Completed: Spine: Lumbar spine SIGNATURE: RT Sonido(R) PATIENT NAME: Cyn Jaems JR DATE: October 10, 2023 TIME: 9:52 AM documented in this encounter[facility]06[facility] Miscellaneous Notes* Result Encounter Note - Katey Booker DO - 10/10/2023 9:20 AM EDT Can let him know the MRI of the lumbar spine shows degenerative changes without evidence of myelomainvolvement. documented in this encounter[facility]06-[facility] Progress note* Result Encounter Note - Katey Booker DO - 10/10/2023 9:20 AM EDT Can let him know the MRI of the lumbar spine shows degenerative changes without evidence of myelomainvolvement. [facility] Telephone encounter Note* Telephone Encounter - Katey Booker DO - 09/28/2023 12:21 PM EDT The following approved medication requests have been transmitted electronically. Requested Prescriptions Signed Prescriptions Disp Refills cyclobenzaprine (FLEXERIL) 10 mg tablet 90 tablet 1 Sig: Take 1 tablet by mouth three times a day as needed for muscle spasm. Authorizing Provider: KATEY BOOKER DO [facility] Miscellaneous Notes* Telephone Encounter - Katey Booker DO - 09/28/2023 12:21 PM EDT The following approved medication requests have been transmitted electronically. Requested Prescriptions Signed Prescriptions Disp Refills cyclobenzaprine (FLEXERIL) 10 mg tablet 90 tablet 1 Sig: Take 1 tablet by mouth three times a day as needed for muscle spasm. Authorizing Provider: KATEY BOOKER DO * Telephone Encounter - Rachana Torres LPN - 09/28/2023 11:41 AM EDT [facility] called stating skelaxin is not covered by patient's insurance. Asking for another muscle relaxant. Rachana Torres LPN documented in this encounter[facility]06-[facility] Telephone encounter Note * Telephone Encounter - Rachana Torres LPN - 09/28/2023 11:41 AM EDT [facility] called stating skelaxin is not covered by patient's insurance. Asking for another muscle relaxant. Rachana Torres LPN [facility] History of Present illness Narrative* Katey Booker DO - 09/28/2023 10:06 AM EDT Diagnosis: 1) IgA lambda multiple myeloma. 2) High risk stage II colon cancer. HPI: The patient is a 73 yo male with PMH significant for DM (peripheral sensory neuropathy) CKD stage I, psoriasis, mixed hyperlipidemia, HTN (essential). He had a several year history of diabetes and established with Dr. Vega about 3 years prior to initial consultation here. A chemistry panel revealed an increase in the globulin fraction and therefore a serum protein electrophoresis and immunofixation was obtained. The patient was found to have a low level IgA lambda monoclonal protein with the M spike quantified at 0.7 g/dL. Urine protein electrophoresis was noted to have an atypical gamma without any quantification. The patient's serum chemistries were significant for creatinine of 1.0 mg/dL and a calcium of 8.6 mg/dL. The total protein was 7.8 g/dL with an albumin of 3.2 g/dL and a globulin fraction of 4.6 g/dL yielding an A/G ratio 0.7. Hepatocellular enzymes were normal. Sister diagnosed with retro-orbital lymphoma. Patient had daughter who at age 24 in 2003 from acute leukemia. Previous therapy: 1) VRd. Began 10/28. Current therapy: 1) Dd. x1 cycle. He had onset of dyspnea during the first week. Went to the ED and had CTA of chest ruled out PE. Was using his home oxygen which previously he only used at night when he felt he needed it. Was told he has mild COPD and asthma on top of it. He went back to the ED at [facility] 12/16 for worsening dyspnea. He was diagnosed with acute on chronic heart failure. BNP was elevated on presentation. CTA of the chest showed no evidence of PE. He was noted to have new moderate bilateral effusions and bilateral compressive atelectasis. He has preserved ejection fraction. Initially treated with furosemide drip. 2D echo demonstrated an EF of 70%. Symptoms improved but he was noted to be anemic and had a positive stool sample for occult blood. Underwent EGD which demonstrated severe erosive gastritis and 2 bleeding angiodysplastic lesions in the stomach which were treated with heater probe. He also had duodenitis which was biopsied. He was treated with pantoprazole 40 mg twice daily. He was able to taper oxygen down to 2 L and was discharged in 12/20. Presents for ongoing oncologic management. Interim history: Underwent robotic laparoscopic sigmoid colectomy with colorectal anastomosis on 05/10/2023. Pathology: A. Colon, sigmoid, robotic laparoscopic colectomy -Invasive adenocarcinoma, moderately differentiated, 8.2 cm, extending into pericolonic tissue (seecomment) -Surgical margins negative for carcinoma and high-grade dysplasia -Negative for metastasis in thirty-four of thirty-four pericolic lymph nodes (0/34) B. Colon, distal donut, excision -Colonic mucosa with no significant pathologic abnormality Diagnosis Comment Microscopic examination demonstrates a moderately differentiated invasive adenocarcinoma, extendinginto pericolonic tissue. There is extensive abscess formation associated with gross/macroscopic tumor perforation and an exuberant pericolonic inflammatory response that is undermining the tumor. There is no tumor identified within the abscess cavity itself or at the site of perforation, consistentwith a pT3 staging classification. A. Colon, sigmoid, robotic laparoscopic colectomy -Invasive adenocarcinoma, moderately differentiated, 8.2 cm, extending into pericolonic tissue (seecomment) -Surgical margins negative for carcinoma and high-grade dysplasia -Negative for metastasis in thirty-four of thirty-four pericolic lymph nodes (0/34) B. Colon, distal donut, excision -Colonic mucosa with no significant pathologic abnormality Diagnosis Comment Microscopic examination demonstrates a moderately differentiated invasive adenocarcinoma, extendinginto pericolonic tissue. There is extensive abscess formation associated with gross/macroscopic tumor perforation and an exuberant pericolonic inflammatory response that is undermining the tumor. There is no tumor identified within the abscess cavity itself or at the site of perforation, consistentwith a pT3 staging classification. COLON AND RECTUM: Resection, Including Transanal Disk Excision of Rectal Neoplasms 8th Edition - Protocol posted: 10/14/2021 COLON AND RECTUM: RESECTION - A SPECIMEN Procedure Sigmoidectomy TUMOR Tumor Site Sigmoid colon Histologic Type Adenocarcinoma Histologic Grade G2, moderately differentiated Tumor Size Greatest dimension (Centimeters): 8.2 cm Tumor Extent Invades through muscularis propria into the pericolonic or perirectal tissue Macroscopic Tumor Perforation Present Lymphovascular Invasion Not identified Perineural Invasion Not identified Treatment Effect No known presurgical therapy MARGINS Margin Status for Invasive Carcinoma All margins negative for invasive carcinoma Closest Margin(s) to Invasive Carcinoma mesorectal margin Distance from Invasive Carcinoma to Closest Margin 2.1 cm Margin Status for Non-Invasive Tumor All margins negative for high-grade dysplasia / intramucosal carcinoma and low-grade dysplasia REGIONAL LYMPH NODES Regional Lymph Node Status All regional lymph nodes negative for tumor Number of Lymph Nodes Examined 34 Tumor Deposits Not identified PATHOLOGIC STAGE CLASSIFICATION (pTNM, AJCC 8th Edition) Reporting of pT, pN, and (when applicable) pM categories is based on information available to the pathologist at the time the report is issued. As per the AJCC (Chapter 1, 8th Ed.) it is the managingphysician s responsibility to establish the final pathologic stage based upon all pertinent information, including but potentially not limited to this pathology report. pT Category pT3 pN Category pN0 Results Mismatch Repair Protein Immunohistochemistry Results: MLH1: Normal/Intact Nuclear Expression PMS2: Normal/Intact Nuclear Expression MSH2: Normal/Intact Nuclear Expression MSH6: Normal/Intact Nuclear Expression Presents for ongoing oncologic management. Interim history: Has a complaint today of right low back pain. Started within the last week. Hurts significantly when he tries to stand up or bend from [id number]. He saw his PCP. Was attributed to muscle spasm. This is a new pain distinct from his previous chronic low back pain. No injury. Otherwise, all below verified again today. No change in sensory neuropathy: Cannot drive due to baseline neuropathy of the feet. Extends prison up the LEs b/l. Fingers tingle and numb. Appetite normal. Having formed stools now. Can have 2 or 3 bowel movements a day. PMH, medications and allergies personally reviewed by me today. Any changes documented in appropriate section. PHYSICAL EXAM: Vitals: Blood pressure 155/66, pulse 70, temperature 36.5 C (97.7 F), temperature source Temporal, weight 132.9 kg (293 lb), SpO2 91%.Well-appearing and in no acute distress. EYES: Sclerae are anicteric bilaterally. LYMPHATIC: There is no palpable cervical or supraclavicular adenopathy. RESPIRATORY: Inspiratory breath sounds are of normal intensity in all ambrose. No rales, wheezes or rhonchi. CARDIOVASCULAR: Rhythm is regular. ABDOMEN: The abdomen is nondistended. Small opening mid way across incision right lower quadrant. Culture obtained. Gently probed. Does not tunnel. No obvious pus. Extremities: No swelling or edema. SKIN: No jaundice or rash. No petechiae. NEUROLOGIC: turf grower II-XII are grossly intact. No focal motor weakness. MS: No tenderness over the lower right back. LABS: IMAGING: Whole-body PET 09/06/2022 demonstrated scattered increase areas of FDG uptake in the thoracic and lumbar spine as well as the right iliac wing, posterior ilium and left acetabulum. Calculated maximum SUV was 4.2. This fulfilled quantitative criteria for viable osseous neoplasm. PATHOLOGY: BM biopsy 09/22/2022: A-C. Bone marrow, aspirate smear and core biopsy, with clot section: - Lambda monotypic plasma cell neoplasm involving ~20% of the marrow cellularity. - See comment. D. Peripheral blood smear: - Neutrophilic leukocytosis. - Normocytic anemia. - Mild thrombocytosis. FISH from 2019: RESULT: ABNORMAL hybridization pattern (see interpretation). Anomaly Result 1p32 (CDKN2C): Normal pattern 1q21 (CKS1B): Normal pattern +9 (CEP9): Normal pattern t(11;14)(q13;q32)(IGH/CCND1): Positive (78/100) 13q14 (RB1): Normal pattern 14q32 (IGH): Positive for IGH translocation (78/100) +15 (CEP15): Normal pattern 17p13 (TP53): Normal pattern INTERPRETATION: These findings demonstrate a plasma cell population with t(11;14)/IGH-CCND1. These findings are consistent with the presence of a plasma cell neoplasm. In plasma cell myeloma, these findings are associated with standard risk disease. Correlation with metaphase cytogenetic analysis is suggested. 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 -Initial bone marrow biopsy 20% PCs in the core specimen. -PET 2019 revealed no suspicious skeletal lesions. -PET 08/2022 indicated lesions defining multiple myeloma. -Bone marrow--still had about 20% PCs. -Standard risk disease by FISH panel 2019. -Significant baseline sensory neuropathy. -Myeloma frailty score is 1 (intermediate). -He was not a candidate for transplant given his other comorbid conditions. He said he wouldn't want to undergo ASCT if medically cleared to do so. -Episode decompensated CHF (diastolic dysfunction). -Reviewed trend of monoclonal protein. Down about 30%. -Had worsening neuropathy from bortezomib. -Was tolerating daratumumab and lenalidomide well. -Therapy was on hold for colon cancer surgery. -Reviewed labs. Immunofixation detecting daratumumab. No IgA monoclonal protein. CR. -He has no severe or unexpected toxicity from therapy. Benefit of continuing outweighs risk. Plan: -Continue acyclovir. -Hold lenalidomide for now, but will restart if progresses. -Dexamethasone 8 mg PO weekly due to exacerbation of blood glucose at higher doses.. -Every 3 month monitoring of serum monoclonal protein and light chains. -CBC/CMP monthly. -CBC each treatment. -Continue PPI since continuing dexamethasone. -Continue monitoring counts and iron levels (as indicated). -Continued follow-up with his PCP and refuse driver. -Continue monthly Zometa. (C18.7) Cancer of sigmoid colon (HCC) (S31.109A) Open wound of abdominal wall, initial encounter Assessment: -pT3 N0 M0 G2 stage IIA adenocarcinoma of the sigmoid colon. -pMMR. -High risk feature of macroscopic tumor perforation. -Tumor budding not reported. -Previously discussed TB recs. Discussed R/B/A to adjuvant therapy. He has significant baseline neuropathy from diabetes impacting his quality of life. He is over the age of 72 and has a competing cause for mortality, i.e. multiple myeloma. Given many treatment options going forward and the fact that serum monoclonal protein is now on quantifiable by electrophoresis, recommended adjuvant treatment for colon cancer. After further consideration, he declined adjuvant chemotherapy for colon cancer. Plan: -CT chest, abdomen pelvis 6 months postop--October. Acute low back pain. -Could be musculoskeletal but given underlying disease MRI warranted. -Rx Skelaxin 800 mg every 8 hours as needed. Portions of this documentation were copied and pasted from previous office visit notes in order to provide a cohesive continuity of the history. The note has been reviewed and edited and updated as necessary. Katey Booker DO documented in this encounter[facility] Telephone encounter Note * Telephone Encounter - Katey Booker DO - 09/14/2023 1:05 PM EDT Agree. Thank you. [facility] Miscellaneous Notes* Telephone Encounter - Katey Booker DO - 09/14/2023 1:05 PM EDT Agree. Thank you. * Telephone Encounter - Marisol Hollis RN - 09/14/2023 10:06 AM EDT During assessment today, SpO2 kept reading 87%-91%. Patient stated he did not feel SOB, dizzy, or light headed. I explained to patient to check his pulse ox at home and to contact us if he were to have any of the above symptoms. documented in this encounter[facility]05-[facility] Telephone encounter Note * Telephone Encounter - Marisol Hollis RN - 09/14/2023 10:06 AM EDT During assessment today, SpO2 kept reading 87%-91%. Patient stated he did not feel SOB, dizzy, or light headed. I explained to patient to check his pulse ox at home and to contact us if he were to have any of the above symptoms. [facility] History of Present illness Narrative* Tasha Louis RN - 08/31/2023 9:34 AM EDT Assessment unchanged from 08/30/23 office visit with Jahaira Agustin CNP documented in this encounterEast [facility]05[facility] History of Present illness Narrative* Susan Agustin APRN.CNP - 08/30/2023 10:52 AM EDT Chief Complaint Patient presents with: Established Patient HPI: Cyn James JR is a 73 year old male who presents here today for evaluation for treatment tomorrow. Per Dr. Booker's previous note: H/o DM (peripheral sensory neuropathy) CKD stage I, psoriasis, mixed hyperlipidemia, HTN (essential). He had a several year history of diabetes and established with Dr. Vega about 3 years prior to initial consultation here. A chemistry panel revealed an increase in the globulin fraction and therefore a serum protein electrophoresis and immunofixation was obtained. The patient was found to have a low level IgA lambda monoclonal protein with the M spike quantified at 0.7 g/dL. Urine protein electrophoresis was noted to have an atypical gamma without any quantification. The patient's serum chemistries were significant for creatinine of 1.0 mg/dL and a calcium of 8.6 mg/dL. The total protein was 7.8 g/dL with an albumin of 3.2 g/dL and a globulin fraction of 4.6 g/dL yielding an A/G ratio 0.7. Hepatocellular enzymes were normal. Sister diagnosed with retro-orbital lymphoma. Patient had daughter who at age 24 in 2003 from acute leukemia. Previous therapy: 1) VRd. Began 10/28. Current therapy: 1) Dd. x1 cycle. Underwent robotic laparoscopic sigmoid colectomy with colorectal anastomosis on 05/10/2023. Pathology: A. Colon, sigmoid, robotic laparoscopic colectomy -Invasive adenocarcinoma, moderately differentiated, 8.2 cm, extending into pericolonic tissue (seecomment) -Surgical margins negative for carcinoma and high-grade dysplasia -Negative for metastasis in thirty-four of thirty-four pericolic lymph nodes (0/34) B. Colon, distal donut, excision -Colonic mucosa with no significant pathologic abnormality Diagnosis Comment Microscopic examination demonstrates a moderately differentiated invasive adenocarcinoma, extendinginto pericolonic tissue. There is extensive abscess formation associated with gross/macroscopic tumor perforation and an exuberant pericolonic inflammatory response that is undermining the tumor. There is no tumor identified within the abscess cavity itself or at the site of perforation, consistentwith a pT3 staging classification. A. Colon, sigmoid, robotic laparoscopic colectomy -Invasive adenocarcinoma, moderately differentiated, 8.2 cm, extending into pericolonic tissue (seecomment) -Surgical margins negative for carcinoma and high-grade dysplasia -Negative for metastasis in thirty-four of thirty-four pericolic lymph nodes (0/34) B. Colon, distal donut, excision -Colonic mucosa with no significant pathologic abnormality Diagnosis Comment Microscopic examination demonstrates a moderately differentiated invasive adenocarcinoma, extendinginto pericolonic tissue. There is extensive abscess formation associated with gross/macroscopic tumor perforation and an exuberant pericolonic inflammatory response that is undermining the tumor. There is no tumor identified within the abscess cavity itself or at the site of perforation, consistentwith a pT3 staging classification. COLON AND RECTUM: Resection, Including Transanal Disk Excision of Rectal Neoplasms 8th Edition - Protocol posted: 10/14/2021 COLON AND RECTUM: RESECTION - A SPECIMEN Procedure Sigmoidectomy TUMOR Tumor Site Sigmoid colon Histologic Type Adenocarcinoma Histologic Grade G2, moderately differentiated Tumor Size Greatest dimension (Centimeters): 8.2 cm Tumor Extent Invades through muscularis propria into the pericolonic or perirectal tissue Macroscopic Tumor Perforation Present Lymphovascular Invasion Not identified Perineural Invasion Not identified Treatment Effect No known presurgical therapy MARGINS Margin Status for Invasive Carcinoma All margins negative for invasive carcinoma Closest Margin(s) to Invasive Carcinoma mesorectal margin Distance from Invasive Carcinoma to Closest Margin 2.1 cm Margin Status for Non-Invasive Tumor All margins negative for high-grade dysplasia / intramucosal carcinoma and low-grade dysplasia REGIONAL LYMPH NODES Regional Lymph Node Status All regional lymph nodes negative for tumor Number of Lymph Nodes Examined 34 Tumor Deposits Not identified PATHOLOGIC STAGE CLASSIFICATION (pTNM, AJCC 8th Edition) Reporting of pT, pN, and (when applicable) pM categories is based on information available to the pathologist at the time the report is issued. As per the AJCC (Chapter 1, 8th Ed.) it is the managingphysician s responsibility to establish the final pathologic stage based upon all pertinent information, including but potentially not limited to this pathology report. pT Category pT3 pN Category pN0 Results Mismatch Repair Protein Immunohistochemistry Results: MLH1: Normal/Intact Nuclear Expression PMS2: Normal/Intact Nuclear Expression MSH2: Normal/Intact Nuclear Expression MSH6: Normal/Intact Nuclear Expression No new concerns today. Pt. here with spouse. Appetite:Good. Energy level:Sometimes I have some. I feel tired. Denies fevers or recent illness. Mouth:denies sores Resp:denies cough or sob Cardiac:denies chest pain/palpitations GI:denies abd pain, n/v, moving bowels regularly :denies dysuria/hematuria Extrem:chronic LBP, denies new pain Neuro:+neuropathy fingers/feet stable h/o DM Skin:denies rashes/lesions Heme:denies bleeding The ROS is otherwise negative. Past medical history, appointments, medications, allergies reviewed. No changes. EXAM: BP 174/69 Pulse 71 Temp 36.4 C (97.6 F) (Temporal) Wt 130.5 kg (287 lb 11.2 oz) SpO2 92% BMI 42.49 kg/m APPEARANCE Well appearing, alert, in no acute distress, well-hydrated, well nourished. HEART RRR with normal S1 and S2, no murmurs LUNG clear to auscultation LYMPH NODES No cervical lymphadenopathy, No supraclavicular lymphadenopathy, and No axillary lymphadenopathy. ABDOMEN bowel sounds normoactive, soft, non-tender EXTREMITIES No edema NEURO Awake, alert and oriented x 3, Normal gait, and No involuntary motions. SKIN Skin color, texture, turgor normal, no suspicious rashes or lesions LABS: Latest Ref Rng 08/17/2023 08/24/2023 08/30/2023 WBC 3.70 - 11.00 k/uL 9.11 9.17 11.10 (H) RBC 4.20 - 6.00 m/uL 5.14 5.14 5.15 Hemoglobin 13.0 - 17.0 g/dL 13.1 13.3 13.3 Hematocrit 39.0 - 51.0 % 42.1 42.4 42.3 MCV 80.0 - 100.0 fL 81.9 82.5 82.1 MCH 26.0 - 34.0 pg 25.5 (L) 25.9 (L) 25.8 (L) MCHC 30.5 - 36.0 g/dL 31.1 31.4 31.4 RDW-CV 11.5 - 15.0 % 16.2 (H) 15.8 (H) 16.1 (H) Platelet Count 150 - 400 k/uL 335 296 341 MPV 9.0 - 12.7 fL 9.9 9.6 9.8 Neut% % 79.5 78.9 80.6 Abs Neut (ANC) 1.45 - 7.50 k/uL 7.23 7.23 8.95 (H) Lymph% % 11.4 12.2 9.6 Abs Lymph 1.00 - 4.00 k/uL 1.04 1.12 1.07 Radford% % 8.2 7.9 8.2 Abs Radford <0.87 k/uL 0.75 0.72 0.91 (H) Eosin% % 0.2 0.4 0.7 Abs Eosin <0.46 k/uL <0.03 0.04 0.08 Baso% % 0.2 0.2 0.4 Abs Baso <0.11 k/uL <0.03 <0.03 0.04 Immature Gran % % 0.5 0.4 0.5 IMMATURE GRANS (ABS) <0.10 k/uL 0.05 0.04 0.05 NRBC /100 WBC 0.0 0.0 0.0 Absolute nRBC <0.01 k/uL <0.01 <0.01 <0.01 DTYPE Auto Auto Auto CMP/LD/MM labs: Pending ASSESSMENT/PLAN: 1. Multiple myeloma not having achieved remission (HCC) - ICD9: 203.00, ICD10: C90.00 (primary diagnosis) IgA lambda multiple myeloma. 2. Cancer of sigmoid colon (HCC) - ICD9: 153.3, ICD10: C18.7 High risk stage II colon cancer. pT3 N0 M0 G2 stage IIA adenocarcinoma of the sigmoid colon. pMMR. High risk feature of macroscopic tumor perforation. Per Dr. 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 -Initial bone marrow biopsy 20% PCs in the core specimen. -PET 2018 revealed no suspicious skeletal lesions. -PET 08/2022 indicated lesions defining multiple myeloma. -Bone marrow--still had about 20% PCs. -Standard risk disease by FISH panel 2019. -Significant baseline sensory neuropathy. -Myeloma frailty score is 1 (intermediate). -He was not a candidate for transplant given his other comorbid conditions. He said he wouldn't want to undergo ASCT if medically cleared to do so. -Episode decompensated CHF (diastolic dysfunction). -Reviewed trend of monoclonal protein. Down about 30%. -Worsening neuropathy from bortezomib. -Was tolerating daratumumab and lenalidomide well. Therapy placed on hold for colon cancer surgery. Plan: -Continue acyclovir. -Hold lenalidomide but will restart if progresses. -Decrease dexamethasone 8 mg PO weekly due to exacerbation of blood glucose. -Every 3 month monitoring of serum monoclonal protein and light chains. -CBC/CMP monthly. -CBC each treatment. -Continue PPI since continuing dexamethasone. -Continue monitoring counts and iron levels (as indicated). -Continued follow-up with his PCP and refuse driver. -Continue monthly Zometa. (C18.7) Cancer of sigmoid colon (HCC) (S31.109A) Open wound of abdominal wall, initial encounter Assessment: -pT3 N0 M0 G2 stage IIA adenocarcinoma of the sigmoid colon. -pMMR. -High risk feature of macroscopic tumor perforation. -Tumor budding not reported. -Previously discussed TB recs. Discussed R/B/A to adjuvant therapy. He has significant baseline neuropathy from diabetes impacting his quality of life. He is over the age of 72 and has a competing cause for mortality, i.e. multiple myeloma. Given many treatment options going forward and the fact that serum monoclonal protein is now on quantifiable by electrophoresis, recommended adjuvant treatment for colon cancer. After further consideration, he declined adjuvant chemotherapy for colon cancer. Plan: -CT chest, abdomen pelvis 6 months postop--October. - Tolerating darzalex/zometa well. - Reviewed CBC with pt. - CMP/MM labs pending. - Continue current medications. - Continue monthly zometa. Due this month. - Proceed with darzelex tomorrow pending all labs. - Follow up as scheduled. - Pt. aware to call office with any questions/concerns. The patient indicates understanding of these issues and agrees with the plan. All documentation from previous visit of 08/03/23-Dr. Booker was copied and pasted, documentation hasbeen reviewed and edited as necessary for today's visit. Susan Agustin APRN.JANICE documented in this encounterEast [facility] History of Present illness Narrative* Katey Booker DO - 08/03/2023 10:52 AM EDT Diagnosis: 1) IgA lambda multiple myeloma. 2) High risk stage II colon cancer. HPI: The patient is a 73 yo male with PMH significant for DM (peripheral sensory neuropathy) CKD stage I, psoriasis, mixed hyperlipidemia, HTN (essential). He had a several year history of diabetes and established with Dr. Vega about 3 years prior to initial consultation here. A chemistry panel revealed an increase in the globulin fraction and therefore a serum protein electrophoresis and immunofixation was obtained. The patient was found to have a low level IgA lambda monoclonal protein with the M spike quantified at 0.7 g/dL. Urine protein electrophoresis was noted to have an atypical gamma without any quantification. The patient's serum chemistries were significant for creatinine of 1.0 mg/dL and a calcium of 8.6 mg/dL. The total protein was 7.8 g/dL with an albumin of 3.2 g/dL and a globulin fraction of 4.6 g/dL yielding an A/G ratio 0.7. Hepatocellular enzymes were normal. Sister diagnosed with retro-orbital lymphoma. Patient had daughter who at age 24 in 2003 from acute leukemia. Previous therapy: 1) VRd. Began 10/28. Current therapy: 1) Dd. x1 cycle. He had onset of dyspnea during the first week. Went to the ED and had CTA of chest ruled out PE. Was using his home oxygen which previously he only used at night when he felt he needed it. Was told he has mild COPD and asthma on top of it. He went back to the ED at [facility] 12/16 for worsening dyspnea. He was diagnosed with acute on chronic heart failure. BNP was elevated on presentation. CTA of the chest showed no evidence of PE. He was noted to have new moderate bilateral effusions and bilateral compressive atelectasis. He has preserved ejection fraction. Initially treated with furosemide drip. 2D echo demonstrated an EF of 70%. Symptoms improved but he was noted to be anemic and had a positive stool sample for occult blood. Underwent EGD which demonstrated severe erosive gastritis and 2 bleeding angiodysplastic lesions in the stomach which were treated with heater probe. He also had duodenitis which was biopsied. He was treated with pantoprazole 40 mg twice daily. He was able to taper oxygen down to 2 L and was discharged in 12/20. Presents for ongoing oncologic management. Interim history: Underwent robotic laparoscopic sigmoid colectomy with colorectal anastomosis on 05/10/2023. Pathology: A. Colon, sigmoid, robotic laparoscopic colectomy -Invasive adenocarcinoma, moderately differentiated, 8.2 cm, extending into pericolonic tissue (seecomment) -Surgical margins negative for carcinoma and high-grade dysplasia -Negative for metastasis in thirty-four of thirty-four pericolic lymph nodes (0/34) B. Colon, distal donut, excision -Colonic mucosa with no significant pathologic abnormality Diagnosis Comment Microscopic examination demonstrates a moderately differentiated invasive adenocarcinoma, extendinginto pericolonic tissue. There is extensive abscess formation associated with gross/macroscopic tumor perforation and an exuberant pericolonic inflammatory response that is undermining the tumor. There is no tumor identified within the abscess cavity itself or at the site of perforation, consistentwith a pT3 staging classification. A. Colon, sigmoid, robotic laparoscopic colectomy -Invasive adenocarcinoma, moderately differentiated, 8.2 cm, extending into pericolonic tissue (seecomment) -Surgical margins negative for carcinoma and high-grade dysplasia -Negative for metastasis in thirty-four of thirty-four pericolic lymph nodes (0/34) B. Colon, distal donut, excision -Colonic mucosa with no significant pathologic abnormality Diagnosis Comment Microscopic examination demonstrates a moderately differentiated invasive adenocarcinoma, extendinginto pericolonic tissue. There is extensive abscess formation associated with gross/macroscopic tumor perforation and an exuberant pericolonic inflammatory response that is undermining the tumor. There is no tumor identified within the abscess cavity itself or at the site of perforation, consistentwith a pT3 staging classification. COLON AND RECTUM: Resection, Including Transanal Disk Excision of Rectal Neoplasms 8th Edition - Protocol posted: 10/14/2021 COLON AND RECTUM: RESECTION - A SPECIMEN Procedure Sigmoidectomy TUMOR Tumor Site Sigmoid colon Histologic Type Adenocarcinoma Histologic Grade G2, moderately differentiated Tumor Size Greatest dimension (Centimeters): 8.2 cm Tumor Extent Invades through muscularis propria into the pericolonic or perirectal tissue Macroscopic Tumor Perforation Present Lymphovascular Invasion Not identified Perineural Invasion Not identified Treatment Effect No known presurgical therapy MARGINS Margin Status for Invasive Carcinoma All margins negative for invasive carcinoma Closest Margin(s) to Invasive Carcinoma mesorectal margin Distance from Invasive Carcinoma to Closest Margin 2.1 cm Margin Status for Non-Invasive Tumor All margins negative for high-grade dysplasia / intramucosal carcinoma and low-grade dysplasia REGIONAL LYMPH NODES Regional Lymph Node Status All regional lymph nodes negative for tumor Number of Lymph Nodes Examined 34 Tumor Deposits Not identified PATHOLOGIC STAGE CLASSIFICATION (pTNM, AJCC 8th Edition) Reporting of pT, pN, and (when applicable) pM categories is based on information available to the pathologist at the time the report is issued. As per the AJCC (Chapter 1, 8th Ed.) it is the managingphysician s responsibility to establish the final pathologic stage based upon all pertinent information, including but potentially not limited to this pathology report. pT Category pT3 pN Category pN0 Results Mismatch Repair Protein Immunohistochemistry Results: MLH1: Normal/Intact Nuclear Expression PMS2: Normal/Intact Nuclear Expression MSH2: Normal/Intact Nuclear Expression MSH6: Normal/Intact Nuclear Expression Presents for ongoing oncologic management. Interim history: Has no complaints today. Chronic low back pain. No change in sensory neuropathy: Cannot drive due to baseline neuropathy of the feet. Extends prison up the LEs b/l. Fingers tingle and numb. Still having significant exacerbations of blood sugars with use of dexamethasone. Otherwise tolerating treatment very well. Appetite normal. Having formed stools now. Can have 2 or 3 bowel movements a day. PMH, medications and allergies personally reviewed by me today. Any changes documented in appropriate section. PHYSICAL EXAM: Vitals: Blood pressure 128/68, pulse 82, temperature 36.9 C (98.5 F), temperature source Temporal, weight 129 kg (284 lb 8 oz), SpO2 91%.Well- appearing and in no acute distress. EYES: Sclerae are anicteric bilaterally. LYMPHATIC: There is no palpable cervical or supraclavicular adenopathy. RESPIRATORY: Inspiratory breath sounds are of normal intensity in all ambrose. No rales, wheezes or rhonchi. CARDIOVASCULAR: Rhythm is regular. ABDOMEN: The abdomen is nondistended. Small opening mid way across incision right lower quadrant. Culture obtained. Gently probed. Does not tunnel. No obvious pus. Extremities: No swelling or edema. SKIN: No jaundice or rash. No petechiae. NEUROLOGIC: turf grower II-XII are grossly intact. No focal motor weakness. LABS: IMAGING: Whole-body PET 09/06/2022 demonstrated scattered increase areas of FDG uptake in the thoracic and lumbar spine as well as the right iliac wing, posterior ilium and left acetabulum. Calculated maximum SUV was 4.2. This fulfilled quantitative criteria for viable osseous neoplasm. PATHOLOGY: BM biopsy 09/22/2022: A-C. Bone marrow, aspirate smear and core biopsy, with clot section: - Lambda monotypic plasma cell neoplasm involving ~20% of the marrow cellularity. - See comment. D. Peripheral blood smear: - Neutrophilic leukocytosis. - Normocytic anemia. - Mild thrombocytosis. FISH from 2019: RESULT: ABNORMAL hybridization pattern (see interpretation). Anomaly Result 1p32 (CDKN2C): Normal pattern 1q21 (CKS1B): Normal pattern +9 (CEP9): Normal pattern t(11;14)(q13;q32)(IGH/CCND1): Positive (78/100) 13q14 (RB1): Normal pattern 14q32 (IGH): Positive for IGH translocation (78/100) +15 (CEP15): Normal pattern 17p13 (TP53): Normal pattern INTERPRETATION: These findings demonstrate a plasma cell population with t(11;14)/IGH-CCND1. These findings are consistent with the presence of a plasma cell neoplasm. In plasma cell myeloma, these findings are associated with standard risk disease. Correlation with metaphase cytogenetic analysis is suggested. 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 -Initial bone marrow biopsy 20% PCs in the core specimen. -PET 2018 revealed no suspicious skeletal lesions. -PET 08/2022 indicated lesions defining multiple myeloma. -Bone marrow--still had about 20% PCs. -Standard risk disease by FISH panel 2018. -Significant baseline sensory neuropathy. -Myeloma frailty score is 1 (intermediate). -He was not a candidate for transplant given his other comorbid conditions. He said he wouldn't want to undergo ASCT if medically cleared to do so. -Episode decompensated CHF (diastolic dysfunction). -Reviewed trend of monoclonal protein. Down about 30%. -Worsening neuropathy from bortezomib. -Was tolerating daratumumab and lenalidomide well. Therapy placed on hold for colon cancer surgery. Plan: -Continue acyclovir. -Hold lenalidomide but will restart if progresses. -Decrease dexamethasone 8 mg PO weekly due to exacerbation of blood glucose. -Every 3 month monitoring of serum monoclonal protein and light chains. -CBC/CMP monthly. -CBC each treatment. -Continue PPI since continuing dexamethasone. -Continue monitoring counts and iron levels (as indicated). -Continued follow-up with his PCP and refuse driver. -Continue monthly Zometa. (C18.7) Cancer of sigmoid colon (HCC) (S31.109A) Open wound of abdominal wall, initial encounter Assessment: -pT3 N0 M0 G2 stage IIA adenocarcinoma of the sigmoid colon. -pMMR. -High risk feature of macroscopic tumor perforation. -Tumor budding not reported. -Previously discussed TB recs. Discussed R/B/A to adjuvant therapy. He has significant baseline neuropathy from diabetes impacting his quality of life. He is over the age of 72 and has a competing cause for mortality, i.e. multiple myeloma. Given many treatment options going forward and the fact that serum monoclonal protein is now on quantifiable by electrophoresis, recommended adjuvant treatment for colon cancer. After further consideration, he declined adjuvant chemotherapy for colon cancer. Plan: -CT chest, abdomen pelvis 6 months postop--October. Portions of this documentation were copied and pasted from previous office visit notes in order to provide a cohesive continuity of the history. The note has been reviewed and edited and updated as necessary. I spent a total of 25 minutes on the date of the service which included preparing to see the patient, [id number] patient care, completing clinical documentation, obtaining and/or reviewing separately obtained history, performing a medically appropriate examination, counseling and educating the pat ient/family/caregiver, ordering medications, tests, or procedures, communicating with other HCPs (not separately reported), and communicating results to the patient/family/caregiver. Katey Booker DO documented in this encounterEast [facility]04-03-2024 Nurse Note* Mana Nielson RN - 07/27/2023 9:20 AM EDT Pt took Tylenol and Dexamethasone at home prior to today's treatment. documented in this encounterEast [facility]03-21-2024 History of Present illness Narrative* Mana Kuhn APRN.JANICE - 07/14/2023 1:00 PM EDT COLORECTAL SURGERY VIRTUAL VISIT FOLLOW UP I have communicated my name and active licensure. The patient's identity and physical location wereverified at the time of this visit. Either the patient or their legal traffic workforce representative has been informed of the risks and benefits of -- and alternatives to -- treatment through a remote evaluation andconsents to proceed with the evaluation remotely. I had a virtual visit with Mr. James today for follow up of wound check. Last in person visit on 06/13/2023 Updated HPI: - they packed wet to dry for 1 week and then stopped. is having hard time packing currently but wound is still draining a lot. - The discharge seen is still yellowish in nature can be thick, but no foul odor - No fevers or chills, nausea or vomiting. - Some redness around the edges but nothing painful or indurated. Assessment & Diagnosis: Cyn James JR is a 73 year old male with PMhx of colon cancer is here today for wound check. Patient will do an additional 1 week of antibiotics and pack daily twice if needed. Due to travel patient will follow up in 3 weeks virtually. If at 3 weeks still having issues with order scan to r/o any other cause for delayed wound healing. Treatment plan: Please pack wound once to twice a day if feel draining more Keep area clean and dry Follow up virtually on 07/14/2023 Call with any issues or concerns. UPDATED HISTORY: Cyn James JR is a 73 year old male with PMHx of colon cancer is here for wound check. He reports: Feeling better Eating more food Going to the gym few times a week. Doing treadmill and sitting bicycle and arms machine No drainage feels wound is closed, bur red underneath started on abx, redness has improved Cancer treatment last night went to gym today and still feels good reactions comes in spurts Sometimes getting fatigue from infusions and all things he is getting are side effects noted by infusions. He decided to forego the recommendation for the colon cancer and to focus on the multiple myeloma. He met with his oncologist recently and was told that his numbers are in the maintenance stage whichis great news for him and his family. He will schedule colonoscopy at 1 year date and will reach out 3 months prior to the scheduled PHYSICAL FINDINGS OF NOTE: General - Normal, healthy, cooperative, in no acute distress Able to interact verbally by video conference Pulmonary - respiratory effort normal Abdominal - Not performed Motor - patient seen sitting with Normal appearing strength and coordination Anorectal exam - Not Performed Medical Decision Making: Assessment Assessment & Diagnosis: Cyn James JR is a 73 year old male with PMHx of colon cancer. Patient overall is doing very well, he has returned to activity as well as regular diet with no issues. He did have slight setback with some cellulitis, but is being treated for antibiotics and notices great improvement erythema and discomfort. He was told to give about 3 more weeks until core work at the gym, but he could continue all other activities that he is currently doing. He has no restrictions on diet close oncology and will reach out to schedule colonoscopy at 1 year date. All questions and concerns were answered. Mana Kuhn APRN.JANICE Risk of morbidity, mortality and/or complications of treatment plan: low I spent a total of 25 minutes on the date of the service which included preparing to see the patient, [id number] patient care, completing clinical documentation, obtaining and/or reviewing separately obtained history, performing a medically appropriate examination, counseling and educating the pat ient/family/caregiver, ordering medications, tests, or procedures, and communicating results to thepatient/family/caregiver. documented in this encounterEast [facility]03-20-2024 History of Present illness Narrative* Zulay Rasmussen RN - 07/13/2023 10:15 AM EDT . documented in this encounterEast [facility] Hospital03-16-2024 History of Present illness Narrative* Marcus Day MD - 07/09/2023 9:07 AM EDT FOLLOW UP VISIT NAME: Cyn James [facility] NO.: [id number] DATE OF SERVICE: 07/08/2023 : 1950 REFERRING PHYSICIAN: Krishna Mcdaniel DO, DO Cyn is a patient referred for evaluation of erythema at his robotic cholectomy port site through which the colon was removed. The patient had a robotic sigmoid colectomy performed in April. His wound site was opened up and packed it closed a few weeks ago but now the patient is notes some intermittent drainage. He was seen yesterday and was felt to have erythema around the area where he was getting treatment for multiple myeloma. He denies fever chills or other difficulties. A wound culture was obtained from the skin area and this returned as few gram-positive bacilli. I saw him yesterday in my [place] office. The site appeared somewhat erythematous with no fluctuance. He had been keeping a more plastic type bandage on the site. I do not have ultrasound that location asked that he present to my [place] location for evaluation of the site with ultrasound to helpdecide abscess versus cellulitis. Culture today returned as: Many Streptococcus agalactiae (group b streptococcus) Abnormal Sensitivities pending VITALS: Temperature 36.3 C (97.3 F). On examination, the site has less erythema without fluctuance. There is no expressible material. Intraoffice ultrasound was obtained which was felt to be more consistent with cellulitis without obvious abscess collection. Nonetheless, under ultrasound guidance I initially anesthetized the skin with 1% lidocaine and inserted an 18- gauge needle and attempt to aspirate any collection in the area that appeared more consistent with cellulitis. No material was aspirated. Assessment IMPRESSION: Cellulitis at port closure site that it healed by secondary intention PLAN: The patient has a penicillin allergy given the above culture I elected to empirically treat the patient with clindamycin 300 mg 3 times daily. I will forward this note to his colorectal surgeon. Diagnoses: (C18.9) Colon adenocarcinoma (HCC) (primary encounter diagnosis) Return to Clinic: The patient is instructed to follow-up with me if needed. Marcus Day MD documented in this encounterEast [facility]03-14-2024 History of Present illness Narrative* Marcus Day MD - 07/07/2023 1:33 PM EDT FOLLOW UP VISIT NAME: Cyn James [facility] NO.: [id number] DATE OF SERVICE: 07/07/2023 : 1950 REFERRING PHYSICIAN: Krishna Mcdaniel DO, DO Cyn is a patient referred for evaluation of erythema at his robotic cholectomy port site through which the colon was removed. The patient had a robotic sigmoid colectomy performed in April. His wound site was opened up and packed it closed a few weeks ago but now the patient is notes some intermittent drainage. He was seen yesterday and was felt to have erythema around the area where he was getting treatment for multiple myeloma. He denies fever chills or other difficulties. A wound culture was obtained from the skin area and this returned as few gram-positive bacilli. VITALS: Blood pressure 164/74, pulse (!) 41, height 175.3 cm (5' 9), weight 132.5 kg (292 lb 1.8 oz), SpO2 93%. On examination, the site is slightly erythematous without fluctuance. There is no expressible material. Assessment IMPRESSION: Questionable deeper space wound infection/abscess versus mild cellulitis PLAN: I asked to have the patient follow-up my office tomorrow morning at 8 AM or I can assess the site with ultrasound and if there is a collection attempt aspiration or drainage. Diagnoses: (C18.9) Colon adenocarcinoma (HCC) (primary encounter diagnosis) Return to Clinic: The patient is instructed to follow-up with me tommorow. Marcus Day MD documented in this encounter[facility] Miscellaneous Notes* Telephone Encounter - Cha Bautista RN - 07/07/2023 8:46 AM EDT CYCLE 1/DAY 1 POST TREATMENT CALL Today's date: July 07, 2023 Treatment Regimen: darzalex restart C1D1 Date: 07/06/23 Called patient to follow-up on symptom management. Spoke with patient SYMPTOM ASSESSMENT Neuro: None CV/Resp: None GI/: None Integument: Abdominal wound-red and warm to touch. Cultured yesterday. Seeing Dr. Day today. Activity: Patient reported decreased energy level. Patient did not sleep well last night d/t steroids. Patient is asking if he can take melatonin. Patient informed that he can take melatonin. Patient stated benadryl gives him restless legs which he had issues with yesterday after treatment and his legs are finally settling down. Pain: No=0 (pain 0 on a scale of 0-10). Fever: No Chills: No Any new referrals needed? No Reinforced CURRENT treatment education based on current and anticipated symptoms. Discussed port/line care and patient verbalizes understanding: Not Applicable Patient instructed to contact office or after hours Hematology/Oncology fellow for: temperature ? 100.4; questions or concerns. Patient verbalized understanding of when to seek medical attention and after hours number protocol. Cha Bautista RN documented in this encounterEast [facility]03-13-2024 Miscellaneous Notes* Telephone Encounter - Shanti Winston - 07/06/2023 9:35 AM EDT Patient scheduled to see Dr. Day tomorrow in [place]. Shanti Parry * Telephone Encounter - Rachana Torres LPN - 07/06/2023 9:12 AM EDT PSS- please schedule patient to see general surgery upstairs to assess colectomy wound. Patient is here for treatment, please schedule with him while here. Dr. Booker- please sign referral order- patient needs to go to [place] or [place] to be seen early. Rachana Torres LPN documented in this encounterEast [facility]03-07-2024 Miscellaneous Notes* Telephone Encounter - Cha Bautista RN - 06/30/2023 9:44 AM EST [place] Care Coordination FOLLOW-UP NOTE Patient identified by name and date of . YES Spoke to patient spouse Summary: (Reason for follow-up) Review dexamethasone instructions Concerns: (New Barriers to care) None, reviewed instructions New Referrals Needed: No Is the patient having any pain? Still has mild tenderness at the incision site from his surgery Medication questions or concerns? no Line, drain, or catheter education given? N/A Patient verbalized when to seek Medical Attention and an understanding of after- hours phone numberand process: Yes Care Coordination Plan: No further follow up needed at this time and will follow-up with patient for C1 call. Cha Bautista RN June 30, 2023 documented in this encounterEast [facility]03-06-2024 Miscellaneous Notes* Telephone Encounter - Mana Hernandez - 06/29/2023 11:02 AM EST Spoke with patient and scheduled first dose, scheduled doses 2-5, including labs and OV. Chemo start email sent. Mana Hernandez * Telephone Encounter - Katey Booker DO - 06/29/2023 8:31 AM EST Let's schedule him to start back on daratumumab with dexamethasone only for the time being. Will hold on Revlimid until I have a chance to present his case at myeloma tumor board. He will take dexamethasone 20 mg orally with breakfast the day of every daratumumab injection. For the first 3 injections, he will take dexamethasone 20 mg on the day of the injection and the day after the injection. CBC/CMP/myeloma labs day 1 straight back. CBC with each daratumumab injection. OV/CBC/CMP/myeloma labs for the fifth dose of daratumumab. Katey Booker DO * Telephone Encounter - Cha Bautista RN - 06/28/2023 2:16 PM EST Sending note back as a reminder to put treatment orders in. Thank you. Cha Bautista RN * Telephone Encounter - Cha Bautista RN - 06/27/2023 11:06 AM EST Patient informed of Dr. Booker's response and stated understanding. Cha Bautista RN * Telephone Encounter - Katey Booker DO - 06/27/2023 8:39 AM EST No office visit needed. I am okay with him resuming treatment for myeloma. I will have to enter orders later and we will figure out his schedule. Katey Booker DO * Telephone Encounter - Cha Bautista RN - 06/27/2023 8:33 AM EST Patient called stating he has thought a lot about taking the Xeloda and he does not wish to take the medication at this time. Patient is asking if he needs an OV to discuss resuming treatments for the multiple myeloma. Please advise, thank you. Cha Bautista RN documented in this encounterEast [facility]03-06-2024 Miscellaneous Notes* Telephone Encounter - Marisol Gomes LISW - 06/29/2023 10:48 AM EST Pt noted on [place] 1st time treatment report. This treatment is for iron deficiency anemia. Pt is also an oncology pt, no needs noted at this time. No social work follow up indicated. DARLEEN Bolton documented in this encounterEast [facility]02-28-2024 History of Present illness Narrative* Sara Haji - 06/22/2023 3:49 PM EST [facility] received prescription(s) for Capecitabine from Dr. Booker's office. Benefits investigation was conducted, indicating that a prior authorization is not required at this time per patient's plan with Medicare B. Prescriptions will now be processed through [facility] for determination of next steps. Sara Haji Addendum June 22, 2023 4:10 PM : Note will be updated once pt is contacted and delivery is confirmed. Андрей Rouse PharmD Clinical Pharmacist, Oncology [facility] P: ; F: Pool: P [facility] Pool #: [id number] documented in this encounterEast [facility] Hospital02-27-2024 Miscellaneous Notes* Telephone Encounter - Cha Bautista RN - 06/21/2023 2:57 PM EST ORAL ANTI-CANCER AGENTS EDUCATION patient called today for oral medication education of xeloda for Colon / Rectal Cancer READINESS TO LEARN Cognitive Ability: Alert and oriented Motivation to Learn: Interested Family Support: High - Very involved in pt care Instruction Provided to: Patient Patient learns best by: Multiple Methods Factors affecting learning: None Physical limitation affecting learning: None COOK ASSESSMENT: 1.) Verified that patient knows that the oral agents are for cancer and are taken by mouth. Yes 2.) Medication review completed during visit. Yes 3.) Patient is able to swallow pills. Yes 4.) Patient is able to read the drug label/information. Yes 5.) Patient is able to open the medication bottles and packages. Yes 6.) Has patient taken other pills for cancer? YES, please explain: revlimid for MM. 7.) Is patient experiencing any symptoms that would affect their ability to keep down pills, for example nausea or vomiting? No 8.) Verified that patient understands prescription delivery, benefit investigation and refill process. Yes DRUG-SPECIFIC EDUCATION: 1.) Verified patient knows the drug name. Yes, reviewed with patient 2.) Verified patient understands the dose and schedule of oral anti cancer agent. Yes 3.) Verified patient knows what to do if a medication dose is missed. Yes 4.) Verified patient understands where to store the drug. Yes 5.) Verified patient understands potential side effects and how to manage them. Yes 6.)Verified patient understands handling precautions of oral anti cancer agent. Yes 7.) Verified patient was given written instructions and understands when and whom to call with questions. Yes 8.) Verified patient understands where and how to return drug. Yes 9.) Verified patient received drug specific adult education handout and neutropenic wallet card Yes EVALUATE: The patient demonstrated an understanding of all the above education using the teach-back method. Yes Instructed to call us with any questions, concerns, and/or unresolved symptoms. Will continue to follow up and provide reinforcement of teaching topics as needed. Cha Bautista RN * Telephone Encounter - Shanti Winston - 06/21/2023 2:37 PM EST Pt scheduled as directed. Shanti Parry * Telephone Encounter - Cha Bautista RN - 06/21/2023 1:53 PM EST Spoke to patient. Patient informed of Dr. Booker's response, stated understanding. Please schedule patient for a lab appointment tomorrow at 10:00 am. Cha Bautista RN * Telephone Encounter - Katey Booker DO - 06/21/2023 1:34 PM EST I sent Rx. He needs to have a DPYD/UGT1A1 test done as soon as able. Katey Booker DO * Telephone Encounter - Cha Bautista RN - 06/21/2023 10:04 AM EST Please send xeloda to [facility]. Thank you. documented in this encounterEast [facility] Hospital02-19-2024 Instructions* Patient Instructions* Mana Kuhn APRN.JANICE - 06/13/2023 2:08 PM EST Please pack wound once to twice a day if feel draining more Keep area clean and dry Follow up virtually on 07/14/2023 Call with any issues or concerns. documented in this encounterEast [facility]02-19-2024 History of Present illness Narrative* Mana Kuhn APRN.CNP - 06/13/2023 2:00 PM EST COLORECTAL SURGERY Follow-up June 13, 2023 Chief complaint: wound check Post-op on 05/27/2023 Assessment: Appetite: Eating and drinking well BMs: see HPI, patient encouraged to take daily stool softener in order to help with complete evacuation. He was instructed to not strain. Incision/wound: doing ok, patient to pack wound for 1 week wet to dry daily to help with slough. Then pack daily with dry. Patient will follow up on for wound check. Overall doing ok, patient was instructed to slowly increase diet and activity. He is to wear abdominal binder with activity for extra support. Patient again will follow up for wound check. Updated HPI: - they packed wet to dry for 1 week and then stopped. is having hard time packing currently but wound is still draining a lot. - The discharge seen is still yellowish in nature can be thick, but no foul odor - No fevers or chills, nausea or vomiting. - Some redness around the edges but nothing painful or indurated. Physical Exam: Ht 175.3 cm (5' 9) Wt 124.3 kg (274 lb) BMI 40.46 kg/m General - awake, alert, no acute distress Abdominal - soft tender, non-distended. Wound present in the RLQ about 2.5 cm long and 1.2 cm wide.Tunneling seen with Q-tip about 3 cm deep caudally. Some thicker yellowish fluid seen with probing.This was packed with 1/4 gauze, was shown how to pack. Crane Hoist Or Lift Operator present: No Assessment Medical Decision Making: Assessment & Diagnosis: Cyn James JR is a 73 year old male with PMhx of colon cancer is here today for wound check. Patient will do an additional 1 week of antibiotics and pack daily twice if needed. Due to travel patient will follow up in 3 weeks virtually. If at 3 weeks still having issues with order scan to r/o any other cause for delayed wound healing. Treatment plan: Please pack wound once to twice a day if feel draining more Keep area clean and dry Follow up virtually on 07/14/2023 Call with any issues or concerns. Mana Kuhn APRN.JANICE Risk of morbidity, mortality and/or complications of treatment plan: low documented in this encounterEast [facility]02-14-2024 History of Present illness Narrative* Katey Booker, - 06/08/2023 3:59 PM EST Diagnosis: 1) IgA lambda multiple myeloma. HPI: The patient is a 73 yo male with PMH significant for DM (peripheral sensory neuropathy) CKD stage I, psoriasis, mixed hyperlipidemia, HTN (essential). He had a several year history of diabetes and established with Dr. Vega about 3 years prior to initial consultation here. A chemistry panel revealed an increase in the globulin fraction and therefore a serum protein electrophoresis and immunofixation was obtained. The patient was found to have a low level IgA lambda monoclonal protein with the M spike quantified at 0.7 g/dL. Urine protein electrophoresis was noted to have an atypical gamma without any quantification. The patient's serum chemistries were significant for creatinine of 1.0 mg/dL and a calcium of 8.6 mg/dL. The total protein was 7.8 g/dL with an albumin of 3.2 g/dL and a globulin fraction of 4.6 g/dL yielding an A/G ratio 0.7. Hepatocellular enzymes were normal. Sister diagnosed with retro-orbital lymphoma. Patient had daughter who at age 24 in 2003 from acute leukemia. Previous therapy: 1) VRd. Began 10/28. x2 cycles. Current therapy: 1) Vd. x1 cycle. He had onset of dyspnea during the first week. Went to the ED and had CTA of chest ruled out PE. Was using his home oxygen which previously he only used at night when he felt he needed it. Was told he has mild COPD and asthma on top of it. He went back to the ED at [facility] 12/16 for worsening dyspnea. He was diagnosed with acute on chronic heart failure. BNP was elevated on presentation. CTA of the chest showed no evidence of PE. He was noted to have new moderate bilateral effusions and bilateral compressive atelectasis. He has preserved ejection fraction. Initially treated with furosemide drip. 2D echo demonstrated an EF of 70%. Symptoms improved but he was noted to be anemic and had a positive stool sample for occult blood. Underwent EGD which demonstrated severe erosive gastritis and 2 bleeding angiodysplastic lesions in the stomach which were treated with heater probe. He also had duodenitis which was biopsied. He was treated with pantoprazole 40 mg twice daily. He was able to taper oxygen down to 2 L and was discharged in 12/20. Presents for ongoing oncologic management. Interim history: Underwent robotic laparoscopic sigmoid colectomy with colorectal anastomosis on 05/10/2023. Pathology: A. Colon, sigmoid, robotic laparoscopic colectomy -Invasive adenocarcinoma, moderately differentiated, 8.2 cm, extending into pericolonic tissue (seecomment) -Surgical margins negative for carcinoma and high-grade dysplasia -Negative for metastasis in thirty-four of thirty-four pericolic lymph nodes (0/34) B. Colon, distal donut, excision -Colonic mucosa with no significant pathologic abnormality Diagnosis Comment Microscopic examination demonstrates a moderately differentiated invasive adenocarcinoma, extendinginto pericolonic tissue. There is extensive abscess formation associated with gross/macroscopic tumor perforation and an exuberant pericolonic inflammatory response that is undermining the tumor. There is no tumor identified within the abscess cavity itself or at the site of perforation, consistentwith a pT3 staging classification. A. Colon, sigmoid, robotic laparoscopic colectomy -Invasive adenocarcinoma, moderately differentiated, 8.2 cm, extending into pericolonic tissue (seecomment) -Surgical margins negative for carcinoma and high-grade dysplasia -Negative for metastasis in thirty-four of thirty-four pericolic lymph nodes (0/34) B. Colon, distal donut, excision -Colonic mucosa with no significant pathologic abnormality Diagnosis Comment Microscopic examination demonstrates a moderately differentiated invasive adenocarcinoma, extendinginto pericolonic tissue. There is extensive abscess formation associated with gross/macroscopic tumor perforation and an exuberant pericolonic inflammatory response that is undermining the tumor. There is no tumor identified within the abscess cavity itself or at the site of perforation, consistentwith a pT3 staging classification. COLON AND RECTUM: Resection, Including Transanal Disk Excision of Rectal Neoplasms 8th Edition - Protocol posted: 10/14/2021 COLON AND RECTUM: RESECTION - A SPECIMEN Procedure Sigmoidectomy TUMOR Tumor Site Sigmoid colon Histologic Type Adenocarcinoma Histologic Grade G2, moderately differentiated Tumor Size Greatest dimension (Centimeters): 8.2 cm Tumor Extent Invades through muscularis propria into the pericolonic or perirectal tissue Macroscopic Tumor Perforation Present Lymphovascular Invasion Not identified Perineural Invasion Not identified Treatment Effect No known presurgical therapy MARGINS Margin Status for Invasive Carcinoma All margins negative for invasive carcinoma Closest Margin(s) to Invasive Carcinoma mesorectal margin Distance from Invasive Carcinoma to Closest Margin 2.1 cm Margin Status for Non-Invasive Tumor All margins negative for high-grade dysplasia / intramucosal carcinoma and low-grade dysplasia REGIONAL LYMPH NODES Regional Lymph Node Status All regional lymph nodes negative for tumor Number of Lymph Nodes Examined 34 Tumor Deposits Not identified PATHOLOGIC STAGE CLASSIFICATION (pTNM, AJCC 8th Edition) Reporting of pT, pN, and (when applicable) pM categories is based on information available to the pathologist at the time the report is issued. As per the AJCC (Chapter 1, 8th Ed.) it is the managingphysician s responsibility to establish the final pathologic stage based upon all pertinent information, including but potentially not limited to this pathology report. pT Category pT3 pN Category pN0 Results Mismatch Repair Protein Immunohistochemistry Results: MLH1: Normal/Intact Nuclear Expression PMS2: Normal/Intact Nuclear Expression MSH2: Normal/Intact Nuclear Expression MSH6: Normal/Intact Nuclear Expression Wound nearly healed. Little packing required. Cannot drive due to baseline neuropathy of the feet. Extends prison up the LEs b/l. Never goes barefoot even around the house. Fingers tingle and numb. PMH, medications and allergies personally reviewed by me today. Any changes documented in appropriate section. PHYSICAL EXAM: Vitals: Blood pressure 154/68, pulse 80, temperature 36.4 C (97.6 F), temperature source Temporal, weight 123.6 kg (272 lb 8 oz), SpO2 97%.Well- appearing and in no acute distress. EYES: Sclerae are anicteric bilaterally. NECK: Supple. LYMPHATIC: There is no palpable cervical or supraclavicular adenopathy. RESPIRATORY: Inspiratory breath sounds are of normal intensity in all ambrose. No rales, wheezes or rhonchi. CARDIOVASCULAR: Rhythm is regular. ABDOMEN: The abdomen is nondistended. Small opening mid way across incision right lower quadrant. Culture obtained. Gently probed. Does not tunnel. No obvious pus. Extremities: No swelling or edema. SKIN: No jaundice or rash. No petechiae. NEUROLOGIC: turf grower II-XII are grossly intact. No focal motor weakness. LABS: IMAGING: Whole-body PET 09/06/2022 demonstrated scattered increase areas of FDG uptake in the thoracic and lumbar spine as well as the right iliac wing, posterior ilium and left acetabulum. Calculated maximum SUV was 4.2. This fulfilled quantitative criteria for viable osseous neoplasm. PATHOLOGY: BM biopsy 09/22/2022: A-C. Bone marrow, aspirate smear and core biopsy, with clot section: - Lambda monotypic plasma cell neoplasm involving ~20% of the marrow cellularity. - See comment. D. Peripheral blood smear: - Neutrophilic leukocytosis. - Normocytic anemia. - Mild thrombocytosis. FISH from 2019: RESULT: ABNORMAL hybridization pattern (see interpretation). Anomaly Result 1p32 (CDKN2C): Normal pattern 1q21 (CKS1B): Normal pattern +9 (CEP9): Normal pattern t(11;14)(q13;q32)(IGH/CCND1): Positive (78/100) 13q14 (RB1): Normal pattern 14q32 (IGH): Positive for IGH translocation (78/100) +15 (CEP15): Normal pattern 17p13 (TP53): Normal pattern INTERPRETATION: These findings demonstrate a plasma cell population with t(11;14)/IGH-CCND1. These findings are consistent with the presence of a plasma cell neoplasm. In plasma cell myeloma, these findings are associated with standard risk disease. Correlation with metaphase cytogenetic analysis is suggested. 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 -Initial bone marrow biopsy 20% PCs in the core specimen. -PET 2019 revealed no suspicious skeletal lesions. -PET 08/2022 indicated lesions defining multiple myeloma. -Bone marrow--still had about 20% PCs. -Standard risk disease by FISH panel 2019. -Significant baseline sensory neuropathy. -Myeloma frailty score is 1 (intermediate). -He is not a candidate for transplant given his other comorbid conditions. He said he wouldn't wantto undergo ASCT if medically cleared to do so. -Recent episode decompensated CHF (diastolic dysfunction). -Reviewed trend of monoclonal protein. Down about 30%. -Worsening neuropathy from bortezomib. -Was tolerating daratumumab and lenalidomide well. Therapy placed on hold for colon cancer surgery. Plan: -Will resume below after adjuvant therapy for colon cancer. -Continue acyclovir. -Resume ASA when restarts lenalidomide. -Dexamethasone 20 mg PO days 1, 8, 15 and 22 each cycle of lenalidomide. -Monthly monitoring of serum monoclonal protein and light chains. -CBC/CMP with each cycle. CBC on days 8, 15 and 22 each cycle. -Continue PPI since continuing dexamethasone. -Continue monitoring counts and iron levels (as indicated). -Continued follow-up with his PCP and refuse driver. -Continue monthly Zometa. (C18.7) Cancer of sigmoid colon (HCC) (S31.109A) Open wound of abdominal wall, initial encounter Assessment: -pT3 N0 M0 G2 stage IIA adenocarcinoma of the sigmoid colon. -pMMR. -High risk feature of macroscopic tumor perforation. -Tumor budding not reported. -Discussed TB recs. Discussed R/B/A to adjuvant therapy. He has significant baseline neuropathy from diabetes impacting his quality of life. He is over the age of 72 and has a competing cause for mortality, i.e. multiple myeloma. Given many treatment options going forward and the fact that serum monoclonal protein is now on quantifiable by electrophoresis, recommended adjuvant treatment for coloncancer. Due to age, neuropathy and questionable benefit in those patients over the age of 70, did not recommend oxaliplatin. Recommended capecitabine single agent with an aim for 6 months of treatment. After thorough discussion of potential benefit versus risk, he opted for adjuvant chemotherapy with capecitabine. Plan: -Rx capecitabine. (D50.0) Iron deficiency anemia due to chronic blood loss Assessment: -Previous iron deficiency anemia. Plan: -Reassess iron today -Parenteral iron if low. Katey Booker DO documented in this encounterEast [facility]02-09-2024 Miscellaneous Notes* Telephone Encounter - Brigid Daives RN - 06/03/2023 2:19 PM EST Sand Plant Attendant called pt and left a VM regarding TB recommendations. adjuvant chemotherapy was recommended.Sand Plant Attendant placed a consult for heme onc team and an email was sent to cancer answer to set up an appt. documented in this encounterEast [facility] Hospital02-05-2024 Miscellaneous Notes* Telephone Encounter - Debora Bergman - 05/30/2023 3:06 PM EST Patient is wanting his Potassium in Pill form and not in Liquid form please Advise .. Meghan Bergman documented in this encounterEast [facility] Hospital02-02-2024 Instructions* Patient Instructions* Mana Kuhn APRN.JANICE - 05/27/2023 2:22 PM EST Pack wound wet to dry for 1 week once daily Use abdominal binder with activity Slowly transition diet and activity as you feel fit. Take antibiotic twice a day for 1 week. Follow up on for wound check. Call with any questions or concerns. documented in this encounterEast [facility] Hospital02-02-2024 History of Present illness Narrative* Mana Kuhn APRN.JANICE - 05/27/2023 2:00 PM EST COLORECTAL SURGERY Post-Op Visit Cyn James JR returns for a post-operative visit after undergoing surgery, on 05/10/2023 with . SURGERY/PROCEDURE: Robotic Anterior resection with splenic flexure takedown and EE FREIGHT FORWARDER and intraoperative angiogram with ICG (FireFLy) OPERATIVE FINDINGS: Large tattooed mass in the sigmoid colon corresponding prior endoscopy tetheredto the peritoneum and extramural abscess. Luiz pus, wound class 4 also tethered to bladder with nobladder wall involvement. Sigmoid colon resection was performed with en bloc with peritoneum and abscess cavity and double stapled end-to-end colorectal anastomosis with flexible sigmoidoscopy and intraoperative angiography with ICG (firefly). OPERATIVE INDICATIONS: This 73-year-old gentleman with a history of complex mass in the colon, was referred to me for further management. After extensive discussion, it was decided to proceed with robotic low anterior resection. Reason for Hospitalization 05/10/2023-05/12/2023: Cyn James JR is a 73 year old male presenting with sigmoid cancer. He has a significant medical history of CHF, COPD on home O2 (2L/min), DM II, GERD, HTN, HLD, BMI 40, CONCHA, Hx MM. He has a significant surgical history of TURP (02/02/23). He presented for operative management with Dr. Orta. Hospital Course: Cyn James JR came to the hospital to have surgery with Cipriano Orta MD. Please see operative report for full details. Afterward, the patient was transferred to a regular nursing floor. Pain wascontrolled with oral and IV medication per ERAS protocol and his intake and output was closely monitored. Diet was advanced as tolerated. Mckeon catheter was removed on postoperative day (POD) 1 and he voided independently. Respiratory therapy was consulted for breathing treatments and a desat studywas performed. DVT prophylaxis was managed by Lovenox 40 mg daily and intermittent compression stockings. His electrolytes were monitored with daily labs and replaced as needed. Once the patient's pain was controlled with oral medication, GI soft diet was tolerated, and demonstrated appropriate bowel function, he was deemed fit for discharge. The patient is asked to please follow up with Mana Kuhn CNP as scheduled. Respiratory therapy recommends continuing home oxygen 2L upon discharge. Stoma Present? No Discharged with Tubes/Drains/Appliances? No Follow up imaging ordered? Not warranted His post-operative period was uncomplicated. He is tolerating diet with an improving appetite, stable weight, and energy level is staying the same.. He has no specific complaints, except wound questions. Bowel Movements: 1-2 per day and they are getting more solid, feels that at times that it feels more hard to expel. Bowel stoppers: None. Current diet: Low fiber GI soft. N/V None. F/C None. Incision/wound is all small incisions are well, but larger wound is draining and still open, oncologist swabbed the other day in case of infection. Path: FINAL DIAGNOSIS A. Colon, sigmoid, robotic laparoscopic colectomy -Invasive adenocarcinoma, moderately differentiated, 8.2 cm, extending into pericolonic tissue (seecomment) -Surgical margins negative for carcinoma and high-grade dysplasia -Negative for metastasis in thirty-four of thirty-four pericolic lymph nodes (0/34) B. Colon, distal donut, excision -Colonic mucosa with no significant pathologic abnormality Tumor Board Note: not present yet. Current Outpatient Medications Medication Sig Dispense Refill acyclovir (ZOVIRAX) 400 mg tablet Take 1 tablet by mouth two times a day. 180 tablet 3 ondansetron (ZOFRAN) 8 mg tablet Take 1 tablet by mouth every 8 hours as needed for nausea/vomiting. 30 tablet 2 potassium chloride 20 mEq/15 mL solution Take 15 mL by mouth two times a day. 2838 mL 1 Ibuprofen 200 mg cap Take by mouth every 6 hours as needed. kaqwbvezgsy-znbxiyopp-eghtswio (TRELEGY ELLIPTA) 200-62.5-25 mcg inhalation powder Inhale 1 Puff asinstructed once daily. dilTIAZem CD (CARDIZEM CD, CARTIA XT) 240 mg 24 hr capsule Take 1 capsule by mouth once daily. 90 capsule 3 empagliflozin (JARDIANCE) 10 mg tablet Take 10 mg by mouth once daily. acetaminophen (TYLENOL EXTRA STRENGTH) 500 mg tablet Take 1,500 mg by mouth every 8 hours as needed. torsemide (DEMADEX) 10 mg tablet Take 10 mg by mouth once daily. losartan (COZAAR) 50 mg tablet Take 50 mg by mouth once daily. pantoprazole DR (PROTONIX) 40 mg tablet Take 40 mg by mouth twice daily. OXYGEN, HOME THERAPY, 2 L/min by Nasal Cannula route as directed. cholecalciferol (VITAMIN D-3) 50 mcg (2,000 unit) tablet Take 2,000 Units by mouth once daily. mecobalamin/L-mefolate/B6 phos (METANX ORAL) Take 1 tablet by mouth two times a day. OMEGA-3 FATTY ACIDS ORAL Take 1 tablet by mouth once daily. Magnesium Oxide-Mg Amino Acid Chelate 300 mg cap Take 250 mg by mouth two times a day. albuterol HFA (PROVENTIL HFA, VENTOLIN HFA) 90 mcg/actuation inhaler Inhale 1 Puff as instructed asneeded. metFORMIN (GLUCOPHAGE) 1,000 mg tablet Take 1,000 mg by mouth twice daily with meals. atorvastatin (LIPITOR) 20 mg tablet Take 20 mg by mouth once daily. insulin aspart U-100 (NOVOLOG U-100 INSULIN ASPART) 100 unit/mL soln Take 28 units with breakfast, 50 units at lunch, 48 units at dinner, 48 units at bedtime. insulin detemir U-100 (LEVEMIR) 100 unit/mL injection Inject 74 Units subcutaneously three times a day. umeclidinium-vilanterol (ANORO ELLIPTA) 62.5-25 mcg/actuation inhaler Inhale 1 Puff as instructed once daily. fluticasone/umeclidin/vilanter (TRELEGY ELLIPTA INHALATION) Inhale 1 Puff as instructed once daily. No current facility-administered medications for this visit. Facility-Administered Medications Ordered in Other Visits Medication Dose Route Frequency Provider Last Rate Last Admin NaCl 0.9% iv infusion 500-999 mL/hr INTRAVENOUS PRN Katey Booker, DO diphenhydrAMINE 50 mg injection (BENADRYL) 50 mg INTRAVENOUS PRN Katey Booker, DO hydrocortisone sodium succinate (PF) 100 mg injection (Solu-CORTEF) 100 mg INTRAVENOUS PRN Katey Booker, DO EPINEPHrine HCl (PF) 1 mg/mL (1 mL) 0.3 mg injection 0.3 mg INTRAMUSCULAR PRN Katey Booker, DO sodium chloride 0.9 % (flush) 10-20 mL (BD POSIFLUSH) 10-20 mL INTRAVENOUS PRN Katey Booker, heparin 100 unit/mL 500 Units injection 5 mL INTRAVENOUS DIRECTED PRN Katey Booker, DO sodium chloride 0.9 % (flush) 10-20 mL (BD POSIFLUSH) 10-20 mL INTRAVENOUS DIRECTED PRN Katey Booker, DO ALLERGIES Allergen Reactions Penicillins Rash, Swelling Ht 175.3 cm (5' 9) Wt 124.1 kg (273 lb 9.6 oz) BMI 40.40 kg/m Abdominal examination: soft, non-distended, and non-tender without masses or hernias. Wound is openon the RLQ, that is depth 4cm and having slough present, no purulent drainage with expulsion. Anorectal: deferred Crane Hoist Or Lift Operator present: Yes, Bianka Roa RN Assessment Assessment: Appetite: Eating and drinking well BMs: see HPI, patient encouraged to take daily stool softener in order to help with complete evacuation. He was instructed to not strain. Incision/wound: doing ok, patient to pack wound for 1 week wet to dry daily to help with slough. Then pack daily with dry. Patient will follow up on for wound check. Overall doing ok, patient was instructed to slowly increase diet and activity. He is to wear abdominal binder with activity for extra support. Patient again will follow up for wound check. Mana Kuhn APRN.JANICE [facility] History of Present illness Narrative* Katey Booker, - 05/24/2023 11:27 AM EST Diagnosis: 1) IgA lambda multiple myeloma. HPI: The patient is a 73 yo male with PMH significant for DM (peripheral sensory neuropathy) CKD stage I, psoriasis, mixed hyperlipidemia, HTN (essential). He had a several year history of diabetes and established with Dr. Vega about 3 years prior to initial consultation here. A chemistry panel revealed an increase in the globulin fraction and therefore a serum protein electrophoresis and immunofixation was obtained. The patient was found to have a low level IgA lambda monoclonal protein with the M spike quantified at 0.7 g/dL. Urine protein electrophoresis was noted to have an atypical gamma without any quantification. The patient's serum chemistries were significant for creatinine of 1.0 mg/dL and a calcium of 8.6 mg/dL. The total protein was 7.8 g/dL with an albumin of 3.2 g/dL and a globulin fraction of 4.6 g/dL yielding an A/G ratio 0.7. Hepatocellular enzymes were normal. Sister diagnosed with retro-orbital lymphoma. Patient had daughter who at age 24 in 2003 from acute leukemia. Previous therapy: 1) VRd. Began 10/28. x2 cycles. Current therapy: 1) Vd. x1 cycle. He had onset of dyspnea during the first week. Went to the ED and had CTA of chest ruled out PE. Was using his home oxygen which previously he only used at night when he felt he needed it. Was told he has mild COPD and asthma on top of it. He went back to the ED at [facility] 12/16 for worsening dyspnea. He was diagnosed with acute on chronic heart failure. BNP was elevated on presentation. CTA of the chest showed no evidence of PE. He was noted to have new moderate bilateral effusions and bilateral compressive atelectasis. He has preserved ejection fraction. Initially treated with furosemide drip. 2D echo demonstrated an EF of 70%. Symptoms improved but he was noted to be anemic and had a positive stool sample for occult blood. Underwent EGD which demonstrated severe erosive gastritis and 2 bleeding angiodysplastic lesions in the stomach which were treated with heater probe. He also had duodenitis which was biopsied. He was treated with pantoprazole 40 mg twice daily. He was able to taper oxygen down to 2 L and was discharged in 12/20. Presents for ongoing oncologic management. Interim history: Underwent robotic laparoscopic sigmoid colectomy with colorectal anastomosis on 05/10/2023. Pathology: A. Colon, sigmoid, robotic laparoscopic colectomy -Invasive adenocarcinoma, moderately differentiated, 8.2 cm, extending into pericolonic tissue (seecomment) -Surgical margins negative for carcinoma and high-grade dysplasia -Negative for metastasis in thirty-four of thirty-four pericolic lymph nodes (0/34) B. Colon, distal donut, excision -Colonic mucosa with no significant pathologic abnormality Diagnosis Comment Microscopic examination demonstrates a moderately differentiated invasive adenocarcinoma, extendinginto pericolonic tissue. There is extensive abscess formation associated with gross/macroscopic tumor perforation and an exuberant pericolonic inflammatory response that is undermining the tumor. There is no tumor identified within the abscess cavity itself or at the site of perforation, consistentwith a pT3 staging classification. A. Colon, sigmoid, robotic laparoscopic colectomy -Invasive adenocarcinoma, moderately differentiated, 8.2 cm, extending into pericolonic tissue (seecomment) -Surgical margins negative for carcinoma and high-grade dysplasia -Negative for metastasis in thirty-four of thirty-four pericolic lymph nodes (0/34) B. Colon, distal donut, excision -Colonic mucosa with no significant pathologic abnormality Diagnosis Comment Microscopic examination demonstrates a moderately differentiated invasive adenocarcinoma, extendinginto pericolonic tissue. There is extensive abscess formation associated with gross/macroscopic tumor perforation and an exuberant pericolonic inflammatory response that is undermining the tumor. There is no tumor identified within the abscess cavity itself or at the site of perforation, consistentwith a pT3 staging classification. COLON AND RECTUM: Resection, Including Transanal Disk Excision of Rectal Neoplasms 8th Edition - Protocol posted: 10/14/2021 COLON AND RECTUM: RESECTION - A SPECIMEN Procedure Sigmoidectomy TUMOR Tumor Site Sigmoid colon Histologic Type Adenocarcinoma Histologic Grade G2, moderately differentiated Tumor Size Greatest dimension (Centimeters): 8.2 cm Tumor Extent Invades through muscularis propria into the pericolonic or perirectal tissue Macroscopic Tumor Perforation Present Lymphovascular Invasion Not identified Perineural Invasion Not identified Treatment Effect No known presurgical therapy MARGINS Margin Status for Invasive Carcinoma All margins negative for invasive carcinoma Closest Margin(s) to Invasive Carcinoma mesorectal margin Distance from Invasive Carcinoma to Closest Margin 2.1 cm Margin Status for Non-Invasive Tumor All margins negative for high-grade dysplasia / intramucosal carcinoma and low-grade dysplasia REGIONAL LYMPH NODES Regional Lymph Node Status All regional lymph nodes negative for tumor Number of Lymph Nodes Examined 34 Tumor Deposits Not identified PATHOLOGIC STAGE CLASSIFICATION (pTNM, AJCC 8th Edition) Reporting of pT, pN, and (when applicable) pM categories is based on information available to the pathologist at the time the report is issued. As per the AJCC (Chapter 1, 8th Ed.) it is the managingphysician s responsibility to establish the final pathologic stage based upon all pertinent information, including but potentially not limited to this pathology report. pT Category pT3 pN Category pN0 Results Mismatch Repair Protein Immunohistochemistry Results: MLH1: Normal/Intact Nuclear Expression PMS2: Normal/Intact Nuclear Expression MSH2: Normal/Intact Nuclear Expression MSH6: Normal/Intact Nuclear Expression Has noticed some separation of the incision in the right lower quadrant. Thought he had some pus expressed yesterday. No fever. Appetite improving. PMH, medications and allergies personally reviewed by me today. Any changes documented in appropriate section. PHYSICAL EXAM: Vitals: Blood pressure 110/63, pulse (!) 55, temperature 36.9 C (98.4 F), height 175 cm (5' 8.9), weight 123.8 kg (273 lb), SpO2 93%. Well-appearing and in no acute distress. EYES: Sclerae are anicteric bilaterally. NECK: Supple. LYMPHATIC: There is no palpable cervical or supraclavicular adenopathy. RESPIRATORY: Inspiratory breath sounds are of normal intensity in all ambrose. No rales, wheezes or rhonchi. CARDIOVASCULAR: Rhythm is regular. ABDOMEN: The abdomen is nondistended. Small opening mid way across incision right lower quadrant. Culture obtained. Gently probed. Does not tunnel. No obvious pus. Extremities: No swelling or edema. SKIN: No jaundice or rash. No petechiae. NEUROLOGIC: turf grower II-XII are grossly intact. No focal motor weakness. LABS: IMAGING: Whole-body PET 09/06/2022 demonstrated scattered increase areas of FDG uptake in the thoracic and lumbar spine as well as the right iliac wing, posterior ilium and left acetabulum. Calculated maximum SUV was 4.2. This fulfilled quantitative criteria for viable osseous neoplasm. PATHOLOGY: BM biopsy 09/22/2022: A-C. Bone marrow, aspirate smear and core biopsy, with clot section: - Lambda monotypic plasma cell neoplasm involving ~20% of the marrow cellularity. - See comment. D. Peripheral blood smear: - Neutrophilic leukocytosis. - Normocytic anemia. - Mild thrombocytosis. FISH from 2019: RESULT: ABNORMAL hybridization pattern (see interpretation). Anomaly Result 1p32 (CDKN2C): Normal pattern 1q21 (CKS1B): Normal pattern +9 (CEP9): Normal pattern t(11;14)(q13;q32)(IGH/CCND1): Positive (78/100) 13q14 (RB1): Normal pattern 14q32 (IGH): Positive for IGH translocation (78/100) +15 (CEP15): Normal pattern 17p13 (TP53): Normal pattern INTERPRETATION: These findings demonstrate a plasma cell population with t(11;14)/IGH-CCND1. These findings are consistent with the presence of a plasma cell neoplasm. In plasma cell myeloma, these findings are associated with standard risk disease. Correlation with metaphase cytogenetic analysis is suggested. 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 -Initial bone marrow biopsy 20% PCs in the core specimen. -PET 2019 revealed no suspicious skeletal lesions. -PET 08/2022 indicated lesions defining multiple myeloma. -Bone marrow--still had about 20% PCs. -Standard risk disease by FISH panel 2019. -Significant baseline sensory neuropathy. -Myeloma frailty score is 1 (intermediate). -He is not a candidate for transplant given his other comorbid conditions. He said he wouldn't wantto undergo ASCT if medically cleared to do so. -Recent episode decompensated CHF (diastolic dysfunction). -Reviewed trend of monoclonal protein. Down about 30%. -Worsening neuropathy from bortezomib. -Was tolerating daratumumab and lenalidomide well. Therapy placed on hold for colon cancer surgery. Plan: Pending tumor board discussion and recommendations regarding adjuvant chemotherapy, plan below to restart once wound has healed or delayed if adjuvant chemotherapy recommended. -Begin lenalidomide and daratumumab in a week. -Continue acyclovir. -Resume ASA when restarts lenalidomide. -Dexamethasone 20 mg PO days 1, 8, 15 and 22 each cycle of lenalidomide. -Monthly monitoring of serum monoclonal protein and light chains. -CBC/CMP with each cycle. CBC on days 8, 15 and 22 each cycle. -Continue PPI since continuing dexamethasone. -Continue monitoring counts and iron levels (as indicated). -Continued follow-up with his PCP and refuse driver. -Continue monthly Zometa. (C18.7) Cancer of sigmoid colon (HCC) (S31.109A) Open wound of abdominal wall, initial encounter Assessment: -pT3 N0 M0 G2 stage IIA adenocarcinoma of the sigmoid colon. -High risk feature of macroscopic tumor perforation. -Tumor budding not reported. -Discussed with him general indications for adjuvant chemotherapy in the setting of stage IIA disease. He has one high risk feature but tumor budding was not reported. Plan: -He was told his case will be presented at tumor board. I agree. However, not sure the small, potential benefit of adjuvant chemotherapy justifies delaying ongoing treatment for multiple myeloma. (D50.0) Iron deficiency anemia due to chronic blood loss Assessment: -Previous iron deficiency anemia. Plan: -Reassess iron today -Parenteral iron if low. Portions of this documentation were copied and pasted from previous office visit notes in order to provide a cohesive continuity of the history. The note has been reviewed and edited and updated as necessary. Katey Booker DO [facility] History of Past illness Narrative* Problem Noted Date Diagnosed Date Resolved Date Hypokalemia 05/12/2023 05/12/2023 Hypophosphataemia 05/12/2023 05/12/2023 Hypomagnesemia 05/11/2023 05/12/2023 Last Assessment & Plan: Assessment: Stable PLAN: Continue to monitor daily labs, replenish as necessary to keep Mag > 2 documented as of this encounter (statuses as of 05/27/2023) [facility] of Past illness Narrative* Problem Noted Date Diagnosed Date Resolved Date Hypokalemia 05/12/2023 05/12/2023 Hypophosphataemia 05/12/2023 05/12/2023 Hypomagnesemia 05/11/2023 05/12/2023 Last Assessment & Plan: Assessment: Stable PLAN: Continue to monitor daily labs, replenish as necessary to keep Mag > 2 documented as of this encounter (statuses as of 05/27/2023) [facility] of Past illness Narrative* Problem Noted Date Diagnosed Date Resolved Date Hypokalemia 05/12/2023 05/12/2023 Hypophosphataemia 05/12/2023 05/12/2023 Hypomagnesemia 05/11/2023 05/12/2023 Last Assessment & Plan: Assessment: Stable PLAN: Continue to monitor daily labs, replenish as necessary to keep Mag > 2 documented as of this encounter (statuses as of 05/27/2023) [facility] of [facility] illness Narrative* Problem Noted Date Diagnosed Date Resolved Date Hypokalemia 05/12/2023 05/12/2023 Hypophosphataemia 05/12/2023 05/12/2023 Hypomagnesemia 05/11/2023 05/12/2023 Last Assessment & Plan: Assessment: Stable PLAN: Continue to monitor daily labs, replenish as necessary to keep Mag > 2 documented as of this encounter (statuses as of 05/28/2023) [facility] of [facility] illness Narrative* Problem Noted Date Diagnosed Date Resolved Date Hypokalemia 05/12/2023 05/12/2023 Hypophosphataemia 05/12/2023 05/12/2023 Hypomagnesemia 05/11/2023 05/12/2023 Last Assessment & Plan: Assessment: Stable PLAN: Continue to monitor daily labs, replenish as necessary to keep Mag > 2 documented as of this encounter (statuses as of 05/31/2023) [facility] of [facility] illness Narrative* Problem Noted Date Diagnosed Date Resolved Date Hypokalemia 05/12/2023 05/12/2023 Hypophosphataemia 05/12/2023 05/12/2023 Hypomagnesemia 05/11/2023 05/12/2023 Last Assessment & Plan: Assessment: Stable PLAN: Continue to monitor daily labs, replenish as necessary to keep Mag > 2 documented as of this encounter (statuses as of 06/02/2023) [facility] illness Narrative* Problem Noted Date Diagnosed Date Resolved Date Hypokalemia 05/12/2023 05/12/2023 Hypophosphataemia 05/12/2023 05/12/2023 Hypomagnesemia 05/11/2023 05/12/2023 Last Assessment & Plan: Assessment: Stable PLAN: Continue to monitor daily labs, replenish as necessary to keep Mag > 2 documented as of this encounter (statuses as of 06/03/2023) [facility] Narrative* Problem Noted Date Diagnosed Date Resolved Date Hypokalemia 05/12/2023 05/12/2023 Hypophosphataemia 05/12/2023 05/12/2023 Hypomagnesemia 05/11/2023 05/12/2023 Last Assessment & Plan: Assessment: Stable PLAN: Continue to monitor daily labs, replenish as necessary to keep Mag > 2 documented as of this encounter (statuses as of 06/03/2023) [facility] Narrative* Problem Noted Date Diagnosed Date Resolved Date Hypokalemia 05/12/2023 05/12/2023 Hypophosphataemia 05/12/2023 05/12/2023 Hypomagnesemia 05/11/2023 05/12/2023 Last Assessment & Plan: Assessment: Stable PLAN: Continue to monitor daily labs, replenish as necessary to keep Mag > 2 documented as of this encounter (statuses as of 06/03/2023) [facility] Narrative* Problem Noted Date Diagnosed Date Resolved Date Hypokalemia 05/12/2023 05/12/2023 Hypophosphataemia 05/12/2023 05/12/2023 Hypomagnesemia 05/11/2023 05/12/2023 Last Assessment & Plan: Assessment: Stable PLAN: Continue to monitor daily labs, replenish as necessary to keep Mag > 2 documented as of this encounter (statuses as of 06/06/2023) [facility] illness Narrative* Problem Noted Date Diagnosed Date Resolved Date Hypokalemia 05/12/2023 05/12/2023 Hypophosphataemia 05/12/2023 05/12/2023 Hypomagnesemia 05/11/2023 05/12/2023 Last Assessment & Plan: Assessment: Stable PLAN: Continue to monitor daily labs, replenish as necessary to keep Mag > 2 documented as of this encounter (statuses as of 06/13/2023) [facility] Narrative* Problem Noted Date Diagnosed Date Resolved Date Hypokalemia 05/12/2023 05/12/2023 Hypophosphataemia 05/12/2023 05/12/2023 Hypomagnesemia 05/11/2023 05/12/2023 Last Assessment & Plan: Assessment: Stable PLAN: Continue to monitor daily labs, replenish as necessary to keep Mag > 2 documented as of this encounter (statuses as of 06/14/2023) [facility] Narrative* Problem Noted Date Diagnosed Date Resolved Date Hypokalemia 05/12/2023 05/12/2023 Hypophosphataemia 05/12/2023 05/12/2023 Hypomagnesemia 05/11/2023 05/12/2023 Last Assessment & Plan: Assessment: Stable PLAN: Continue to monitor daily labs, replenish as necessary to keep Mag > 2 documented as of this encounter (statuses as of 06/22/2023) [facility] Narrative* Problem Noted Date Diagnosed Date Resolved Date Hypokalemia 05/12/2023 05/12/2023 Hypophosphataemia 05/12/2023 05/12/2023 Hypomagnesemia 05/11/2023 05/12/2023 Last Assessment & Plan: Assessment: Stable PLAN: Continue to monitor daily labs, replenish as necessary to keep Mag > 2 documented as of this encounter (statuses as of 06/23/2023) [facility] illness Narrative* Problem Noted Date Diagnosed Date Resolved Date Hypokalemia 05/12/2023 05/12/2023 Hypophosphataemia 05/12/2023 05/12/2023 Hypomagnesemia 05/11/2023 05/12/2023 Last Assessment & Plan: Assessment: Stable PLAN: Continue to monitor daily labs, replenish as necessary to keep Mag > 2 documented as of this encounter (statuses as of 06/27/2023) [facility] illness Narrative* Problem Noted Date Diagnosed Date Resolved Date Hypokalemia 05/12/2023 05/12/2023 Hypophosphataemia 05/12/2023 05/12/2023 Hypomagnesemia 05/11/2023 05/12/2023 Last Assessment & Plan: Assessment: Stable PLAN: Continue to monitor daily labs, replenish as necessary to keep Mag > 2 documented as of this encounter (statuses as of 06/29/2023) [facility]01-18-2024 History of Past illness Narrative* Problem Noted Date Diagnosed Date Resolved Date Hypokalemia 05/12/2023 05/12/2023 Hypophosphataemia 05/12/2023 05/12/2023 Hypomagnesemia 05/11/2023 05/12/2023 Last Assessment & Plan: Assessment: Stable PLAN: Continue to monitor daily labs, replenish as necessary to keep Mag > 2 documented as of this encounter (statuses as of 06/29/2023) [facility] History of Past illness Narrative* Problem Noted Date Diagnosed Date Resolved Date Hypokalemia 05/12/2023 05/12/2023 Hypophosphataemia 05/12/2023 05/12/2023 Hypomagnesemia 05/11/2023 05/12/2023 Last Assessment & Plan: Assessment: Stable PLAN: Continue to monitor daily labs, replenish as necessary to keep Mag > 2 documented as of this encounter (statuses as of 06/30/2023) [facility] History of Past illness Narrative* Problem Noted Date Diagnosed Date Resolved Date Hypokalemia 05/12/2023 05/12/2023 Hypophosphataemia 05/12/2023 05/12/2023 Hypomagnesemia 05/11/2023 05/12/2023 Last Assessment & Plan: Assessment: Stable PLAN: Continue to monitor daily labs, replenish as necessary to keep Mag > 2 documented as of this encounter (statuses as of 07/06/2023) [facility] History of Past illness Narrative* Problem Noted Date Diagnosed Date Resolved Date Hypokalemia 05/12/2023 05/12/2023 Hypophosphataemia 05/12/2023 05/12/2023 Hypomagnesemia 05/11/2023 05/12/2023 Last Assessment & Plan: Assessment: Stable PLAN: Continue to monitor daily labs, replenish as necessary to keep Mag > 2 documented as of this encounter (statuses as of 07/06/2023) [facility] History of Past illness Narrative* Problem Noted Date Diagnosed Date Resolved Date Hypokalemia 05/12/2023 05/12/2023 Hypophosphataemia 05/12/2023 05/12/2023 Hypomagnesemia 05/11/2023 05/12/2023 Last Assessment & Plan: Assessment: Stable PLAN: Continue to monitor daily labs, replenish as necessary to keep Mag > 2 documented as of this encounter (statuses as of 07/07/2023) [facility] History of Past illness Narrative* Problem Noted Date Diagnosed Date Resolved Date Hypokalemia 05/12/2023 05/12/2023 Hypophosphataemia 05/12/2023 05/12/2023 Hypomagnesemia 05/11/2023 05/12/2023 Last Assessment & Plan: Assessment: Stable PLAN: Continue to monitor daily labs, replenish as necessary to keep Mag > 2 documented as of this encounter (statuses as of 07/07/2023) [facility] History of Past illness Narrative* Problem Noted Date Diagnosed Date Resolved Date Hypokalemia 05/12/2023 05/12/2023 Hypophosphataemia 05/12/2023 05/12/2023 Hypomagnesemia 05/11/2023 05/12/2023 Last Assessment & Plan: Assessment: Stable PLAN: Continue to monitor daily labs, replenish as necessary to keep Mag > 2 documented as of this encounter (statuses as of 07/07/2023) [facility] History of Past illness Narrative* Problem Noted Date Diagnosed Date Resolved Date Hypokalemia 05/12/2023 05/12/2023 Hypophosphataemia 05/12/2023 05/12/2023 Hypomagnesemia 05/11/2023 05/12/2023 Last Assessment & Plan: Assessment: Stable PLAN: Continue to monitor daily labs, replenish as necessary to keep Mag > 2 documented as of this encounter (statuses as of 07/09/2023) [facility] History of Past illness Narrative* Problem Noted Date Diagnosed Date Resolved Date Hypokalemia 05/12/2023 05/12/2023 Hypophosphataemia 05/12/2023 05/12/2023 Hypomagnesemia 05/11/2023 05/12/2023 Last Assessment & Plan: Assessment: Stable PLAN: Continue to monitor daily labs, replenish as necessary to keep Mag > 2 documented as of this encounter (statuses as of 07/13/2023) [facility] History of Past illness Narrative* Problem Noted Date Diagnosed Date Resolved Date Hypokalemia 05/12/2023 05/12/2023 Hypophosphataemia 05/12/2023 05/12/2023 Hypomagnesemia 05/11/2023 05/12/2023 Last Assessment & Plan: Assessment: Stable PLAN: Continue to monitor daily labs, replenish as necessary to keep Mag > 2 documented as of this encounter (statuses as of 07/14/2023) [facility] History of Past illness Narrative* Problem Noted Date Diagnosed Date Resolved Date Hypokalemia 05/12/2023 05/12/2023 Hypophosphataemia 05/12/2023 05/12/2023 Hypomagnesemia 05/11/2023 05/12/2023 Last Assessment & Plan: Assessment: Stable PLAN: Continue to monitor daily labs, replenish as necessary to keep Mag > 2 documented as of this encounter (statuses as of 07/27/2023) [facility] History of Past illness Narrative* Problem Noted Date Diagnosed Date Resolved Date Hypokalemia 05/12/2023 05/12/2023 Hypophosphataemia 05/12/2023 05/12/2023 Hypomagnesemia 05/11/2023 05/12/2023 Last Assessment & Plan: Assessment: Stable PLAN: Continue to monitor daily labs, replenish as necessary to keep Mag > 2 documented as of this encounter (statuses as of 07/27/2023) [facility] History of Past illness Narrative* Problem Noted Date Diagnosed Date Resolved Date Hypokalemia 05/12/2023 05/12/2023 Hypophosphataemia 05/12/2023 05/12/2023 Hypomagnesemia 05/11/2023 05/12/2023 Last Assessment & Plan: Assessment: Stable PLAN: Continue to monitor daily labs, replenish as necessary to keep Mag > 2 documented as of this encounter (statuses as of 08/04/2023) [facility] History of Past illness Narrative* Problem Noted Date Diagnosed Date Resolved Date Hypokalemia 05/12/2023 05/12/2023 Hypophosphataemia 05/12/2023 05/12/2023 Hypomagnesemia 05/11/2023 05/12/2023 Last Assessment & Plan: Assessment: Stable PLAN: Continue to monitor daily labs, replenish as necessary to keep Mag > 2 documented as of this encounter (statuses as of 08/04/2023) [facility] History of Past illness Narrative* Problem Noted Date Diagnosed Date Resolved Date Hypokalemia 05/12/2023 05/12/2023 Hypophosphataemia 05/12/2023 05/12/2023 Hypomagnesemia 05/11/2023 05/12/2023 Last Assessment & Plan: Assessment: Stable PLAN: Continue to monitor daily labs, replenish as necessary to keep Mag > 2 documented as of this encounter (statuses as of 08/10/2023) [facility]12-11-2023 Miscellaneous Notes* Telephone Encounter - Rubi Harris LPN - 04/04/2023 7:51 AM EST Patient has been identified by name and date of : Yes Requested Prescriptions Pending Prescriptions Disp Refills potassium chloride 20 mEq/15 mL solution [Pharmacy Med Name: POTASSIUM CL 10% (20 MEQ/15ML)] 1 Sig: TAKE 15 ML BY MOUTH TWO TIMES A DAY. RX INSTRUCTIONS: Patient aware RX will be sent to pharmacy. No need to notify patient. Rubi Harris LPN [facility] Inst[facility]* Patient Instructions* Brigid Davies, CHUCHO - 03/25/2023 11:14 AM EST Please visit the Blood Management intranet site: [email or web address] [facility] Miscellaneous Notes* Telephone Encounter - Cha Bautista RN - 03/25/2023 8:43 AM EST informed of the rationale to hold treatment prior to surgery. stated understanding. Cha Bautista RN * Telephone Encounter - Mana Hernandez - 03/25/2023 8:29 AM EST Spoke with patient and scheduled follow up appointment. Patient is asking why no treatment at all before surgery. Please advise. Mana Hernandez * Telephone Encounter - Rubi Harris LPN - 03/25/2023 8:11 AM EST Spoke with pt. , informed to hold his Revlimid, we are also holding his daratumumab until after hiscolon surgery . Dr. Booker would like pt. Scheduled for 2 week F/U after surgery. Pt. Voiced understanding. Rubi Harris LPN * Telephone Encounter - Katey Booker DO - 03/24/2023 5:33 PM EST Advise him to hold lenalidomide and we will hold daratumumab until he has surgery for colon cancer.Need office visit with me about 2 weeks after surgery. Katey Booker DO [facility] Miscellaneous Notes* Telephone Encounter - Mana Hernandez - 03/16/2023 12:54 PM EST Spoke with patient and scheduled with Dr. Orta on 03/23. Chemo needed rescheduled. This PSS spokewith primary nurse and rescheduled. LM for patient to return call. When patient returns calls, please advise that he needs to come in at 8:00 AM for labs on 03/23 with treatment after. Mana Hernandez * Telephone Encounter - Katey Booker DO - 03/16/2023 12:36 PM EST I spoke with Dr. Lo today. He did not make referral to colorectal surgery. I entered the [facility] for it. [facility] DO * Telephone Encounter - Cha Bautista RN - 03/15/2023 3:20 PM EST Met with patient chairside today. Patient stated he had a colonoscopy yesterday by Dr. Lo. Patient stated he was informed by Dr. Lo that he will need to see colorectal surgeon at [facility] to remove the tumor in his colon. Per patient, he was informed to go on a soft liquid diet due to the tumor partially obstructing his colon. Patient is asking if Dr. Booker received a call from Dr. Lo with an update. Patient aware this nurse will provide and update to Dr. Booker and will request biopsy results once available. Patient stated understanding. Cha Bautista RN [facility] Miscellaneous Notes* Telephone Encounter - Tabby Camarillo LPN - 03/16/2023 8:11 AM EST Pt notified and voices understanding. Tabby Camarillo LPN * Telephone Encounter - Katey Booker DO - 03/15/2023 5:16 PM EST He needs to get some extra potassium. I know he has a difficult time with the pills. I sent a prescription for liquid potassium to [facility]. Looks like it should be covered by his insurance. Katey Booker DO [facility] Hospital Discharge instructions Patient Education 03/14/2023 11:30:42 Nausea and Vomiting, Adult Nausea and Vomiting, Adult Nausea is the feeling that you have an upset stomach or that you are about to vomit. Vomiting is when stomach contents are thrown up and out of the mouth as a result of nausea. Vomiting can make you feel weak and cause you to become dehydrated. Dehydration can make you feel tired and thirsty, cause you to have a dry mouth, and decrease how often you urinate. Older adults and people with other diseases or a weak disease-fighting system (immune system) are at higher risk for dehydration. It is important to treat your nausea and vomiting as told by your health care provider. Follow these instructions at home: Watch your symptoms for any changes. Tell your health care provider about them. Follow these instructions to care for yourself at home. Eating and drinking Take an oral rehydration solution (ORS). This is a drink that is sold at pharmacies and retail stores. Drink clear fluids slowly and in small amounts as you are able. Clear fluids include water, ice chips, low-calorie sports drinks, and fruit juice that has water added (diluted fruit juice). Eat bland, tfzu-qq-aymank foods in small amounts as you are able. These foods include bananas, applesauce, rice, lean meats, toast, and crackers. Avoid fluids that contain a lot of sugar or caffeine, such as energy drinks, sports drinks, and soda. Avoid alcohol. Avoid spicy or fatty foods. General instructions Take jzim-cxe-oppxlme and prescription medicines only as told by your health care provider. Drink enough fluid to keep your urine pale yellow. Wash your hands often using soap and water. If soap and water are not available, use hand entry level management. Make sure that all people in your household wash their hands well and often. Rest at home while you recover. Watch your condition for any changes. Breathe slowly and deeply when you feel nauseated. Keep all follow-up visits as told by your health care provider. This is important. Contact a health care provider if: Your symptoms get worse. You have new symptoms. You have a fever. You cannot drink fluids without vomiting. Your nausea does not go away after 2 days. You feel light-headed or dizzy. You have a headache. You have muscle cramps. You have a rash. You have pain while urinating. Get help right away if: You have pain in your chest, neck, arm, or jaw. You feel extremely weak or you faint. You have persistent vomiting. You have vomit that is bright red or looks like black coffee grounds. You have bloody or black stools or stools that look like tar. You have a severe headache, a stiff neck, or both. You have severe pain, cramping, or bloating in your abdomen. You have difficulty breathing, or you are breathing very quickly. Your heart is beating very quickly. Your skin feels cold and clammy. You feel confused. You have signs of dehydration, such as: ?Dark urine, very little urine, or no urine. ?Cracked lips. ?Dry mouth. ?Sunken eyes. ?Sleepiness. ?Weakness. These symptoms may represent a serious problem that is an emergency. Do not wait to see if the symptoms will go away. Get medical help right away. Call your local emergency services (911 in the [place] Do not drive yourself to the hospital. Summary Nausea is the feeling that you have an upset stomach or that you are about to vomit. As nausea getsworse, it can lead to vomiting. Vomiting can make you feel weak and cause you to become dehydrated. Follow instructions from your health care provider about eating and drinking to prevent dehydration. Take kejw-gpq-wzizatd and prescription medicines only as told by your health care provider. Contact your health care provider if your symptoms get worse, or you have new symptoms. Keep all follow-up visits as told by your health care provider. This is important. This information is not intended to replace advice given to you by your health care provider. Make sure you discuss any questions you have with your health care provider. Document Released: 04/11/2006 Document Revised: 08/03/2019 Document Reviewed: 09/19/2018 [employer] Patient Education 2019 [employer]. 03/14/2023 11:30:41 Monitored Anesthesia Care, Care After Monitored Anesthesia Care, Care After These instructions provide you with information about caring for yourself after your procedure. Your health care provider may also give you more specific instructions. Your treatment has been plannedaccording to current medical practices, but problems sometimes occur. Call your health care provider if you have any problems or questions after your procedure. What can I expect after the procedure? After your procedure, you may: Feel sleepy for several hours. Feel clumsy and have poor balance for several hours. Feel forgetful about what happened after the procedure. Have poor judgment for several hours. Feel nauseous or vomit. Have a sore throat if you had a breathing tube during the procedure. Follow these instructions at home: For at least 24 hours after the procedure: Have a responsible adult stay with you. It is important to have someone help care for you until youare awake and alert. Rest as needed. Do not: ?Participate in activities in which you could fall or become injured. ?Drive. ?Use heavy machinery. ?Drink alcohol. ?Take sleeping pills or medicines that cause drowsiness. ?Make important decisions or sign legal documents. ?Take care of children on your own. Eating and drinking Follow the diet that is recommended by your health care provider. If you vomit, drink water, juice, or soup when you can drink without vomiting. Make sure you have little or no nausea before eating solid foods. General instructions Take mtso-yiu-csvynwq and prescription medicines only as told by your health care provider. If you have sleep apnea, surgery and certain medicines can increase your risk for breathing problems. Follow instructions from your health care provider about wearing your sleep device: ?Anytime you are sleeping, including during daytime naps. ?While taking prescription pain medicines, sleeping medicines, or medicines that make you drowsy. If you smoke, do not smoke without supervision. Keep all follow-up visits as told by your health care provider. This is important. Contact a health care provider if: You keep feeling nauseous or you keep vomiting. You feel light-headed. You develop a rash. You have a fever. Get help right away if: You have trouble breathing. Summary For several hours after your procedure, you may feel sleepy and have poor judgment. Have a responsible adult stay with you for at least 24 hours or until you are awake and alert. This information is not intended to replace advice given to you by your health care provider. Make sure you discuss any questions you have with your health care provider. Document Released: 08/01/2016 Document Revised: 07/10/2018 Document Reviewed: 08/01/2016 [employer] Patient Education 2020 [employer]. 03/14/2023 11:30:39 Colonoscopy, Adult, Care After Colonoscopy, Adult, Care After This sheet gives you information about how to care for yourself after your procedure. Your health care provider may also give you more specific instructions. If you have problems or questions, contact your health care provider. What can I expect after the procedure? After the procedure, it is common to have: A small amount of blood in your stool for 24 hours after the procedure. Some gas. Mild abdominal cramping or bloating. Follow these instructions at home: General instructions For the first 24 hours after the procedure: ?Do not drive or use machinery. ?Do not sign important documents. ?Do not drink alcohol. ?Do your regular daily activities at a slower pace than normal. ?Eat soft, jjhx-ad-qpgqch foods. Take ppky-bwx-uvvcxlm or prescription medicines only as told by your health care provider. Relieving cramping and bloating Try walking around when you have cramps or feel bloated. Apply heat to your abdomen as told by your health care provider. Use a heat source that your healthcare provider recommends, such as a moist heat pack or a heating pad. ?Place a towel between your skin and the heat source. ?Leave the heat on for 20 30 minutes. ?Remove the heat if your skin turns bright red. This is especially important if you are unable to feel pain, heat, or cold. You may have a greater risk of getting burned. Eating and drinking Drink enough fluid to keep your urine pale yellow. Resume your normal diet as instructed by your health care provider. Avoid heavy or fried foods thatare hard to digest. Avoid drinking alcohol for as long as instructed by your health care provider. Contact a health care provider if: You have blood in your stool 2 3 days after the procedure. Get help right away if: You have more than a small spotting of blood in your stool. You pass large blood clots in your stool. Your abdomen is swollen. You have nausea or vomiting. You have a fever. You have increasing abdominal pain that is not relieved with medicine. Summary After the procedure, it is common to have a small amount of blood in your stool. You may also have mild abdominal cramping and bloating. For the first 24 hours after the procedure, do not drive or use machinery, sign important documents, or drink alcohol. Contact your health care provider if you have a lot of blood in your stool, nausea or vomiting, a fever, or increased abdominal pain. This information is not intended to replace advice given to you by your health care provider. Make sure you discuss any questions you have with your health care provider. Document Released: 11/23/2004 Document Revised: 02/01/2018 Document Reviewed: 06/22/2016 [employer] Patient Education [employer]. Follow Up Care 03/09/2023 09:45:04 With:MANFRED LO MD Address[address] [address] [phone] When: Unknown [facility] 11-20-2023 Note Discharge Instructions Thank you for allowing [place] to assist you with your healthcare needs. The following is importantdischarge information regarding your hospital visit. What to do next Follow Up Appointments Follow Up with MANFRED LO MD When Where: [address] [phone] Someone Will Contact You Regarding These Home Health Referrals No home referrals have been ordered for you. No one will call you. Allergies penicillin (Hives) Medications Please ask your primary doctor or pharmacist before taking any other medication not listed, including over the counter drugs, herbal medications, vitamins and or supplements as they may interact withyour home medications. What How Much When Instructions Last Dose Unchanged acyclovir (acyclovir 400 mg oral tablet) 1 tab(s) by mouth Two (2) times a day Unchanged atorvastatin (atorvastatin 20 mg oral tablet) 1 tab(s) by mouth Daily at bedtime Unchanged ciprofloxacin (ciprofloxacin 500 mg oral tablet) 1 tab(s) by mouth Every 12 hours Duration: 10 Days Unchanged dilTIAZem (DilTIAZem (Eqv-Cardizem CD) 180 mg/ 24 hours oral capsule, extended release) Unchanged empagliflozin (Jardiance 10 mg oral tablet) 1 tab(s) by mouth Once a day (in the morning) Unchanged insulin detemir (Levemir) (Levemir) Subcutaneous Two (2) times a day Unchanged insulin lispro (HumaLOG) (HumaLOG 100 units/ mL subcutaneous solution) Subcutaneous Three (3) times a day before meals Unchanged losartan (losartan 100 mg oral tablet (NF)) 1 tab(s) by mouth Once a day Unchanged metFORMIN (metFORMIN 1000 mg oral tablet) 1 tab(s) by mouth Two (2) times a day Unchanged tamsulosin (tamsulosin 0.4 mg oral capsule) 1 cap Please take this list to your next doctor s visit. Bring all medications you take, including over the counter medications, herbals and other supplements with you to your doctor s visit. Patients and families are reminded to discard old lists and to update any records with all medication providers or retail pharmacies. Education Materials Nausea and Vomiting, Adult Nausea is the feeling that you have an upset stomach or that you are about to vomit. Vomiting is when stomach contents are thrown up and out of the mouth as a result of nausea. Vomiting can make you feel weak and cause you to become dehydrated. Dehydration can make you feel tired and thirsty, cause you to have a dry mouth, and decrease how often you urinate. Older adults and people with other diseases or a weak disease-fighting system (immune system) are at higher risk for dehydration. It is important to treat your nausea and vomiting as told by your health care provider. Follow these instructions at home: Watch your symptoms for any changes. Tell your health care provider about them. Follow these instructions to care for yourself at home. Eating and drinking Take an oral rehydration solution (ORS). This is a drink that is sold at pharmacies and retail stores. Drink clear fluids slowly and in small amounts as you are able. Clear fluids include water, ice chips, low-calorie sports drinks, and fruit juice that has water added (diluted fruit juice). Eat bland, atxr-ut-bucslx foods in small amounts as you are able. These foods include bananas, applesauce, rice, lean meats, toast, and crackers. Avoid fluids that contain a lot of sugar or caffeine, such as energy drinks, sports drinks, and soda. Avoid alcohol. Avoid spicy or fatty foods. General instructions Take civa-ybf-expwlwy and prescription medicines only as told by your health care provider. Drink enough fluid to keep your urine pale yellow. Wash your hands often using soap and water. If soap and water are not available, use hand entry level management. Make sure that all people in your household wash their hands well and often. Rest at home while you recover. Watch your condition for any changes. Breathe slowly and deeply when you feel nauseated. Keep all follow-up visits as told by your health care provider. This is important. Contact a health care provider if: Your symptoms get worse. You have new symptoms. You have a fever. You cannot drink fluids without vomiting. Your nausea does not go away after 2 days. You feel light-headed or dizzy. You have a headache. You have muscle cramps. You have a rash. You have pain while urinating. Get help right away if: You have pain in your chest, neck, arm, or jaw. You feel extremely weak or you faint. You have persistent vomiting. You have vomit that is bright red or looks like black coffee grounds. You have bloody or black stools or stools that look like tar. You have a severe headache, a stiff neck, or both. You have severe pain, cramping, or bloating in your abdomen. You have difficulty breathing, or you are breathing very quickly. Your heart is beating very quickly. Your skin feels cold and clammy. You feel confused. You have signs of dehydration, such as: ? Dark urine, very little urine, or no urine. ? Cracked lips. ? Dry mouth. ? Sunken eyes. ? Sleepiness. ? Weakness. These symptoms may represent a serious problem that is an emergency. Do not wait to see if the symptoms will go away. Get medical help right away. Call your local emergency services (911 in the [place] Do not drive yourself to the hospital. Summary Nausea is the feeling that you have an upset stomach or that you are about to vomit. As nausea getsworse, it can lead to vomiting. Vomiting can make you feel weak and cause you to become dehydrated. Follow instructions from your health care provider about eating and drinking to prevent dehydration. Take ctmq-hdg-ghztpox and prescription medicines only as told by your health care provider. Contact your health care provider if your symptoms get worse, or you have new symptoms. Keep all follow-up visits as told by your health care provider. This is important. This information is not intended to replace advice given to you by your health care provider. Make sure you discuss any questions you have with your health care provider. Document Released: 04/11/2006 Document Revised: 08/03/2019 Document Reviewed: 09/19/2018 [employer]ed [employer] Patient Education 2020 [employer]. Monitored Anesthesia Care, Care After These instructions provide you with information about caring for yourself after your procedure. Your health care provider may also give you more specific instructions. Your treatment has been plannedaccording to current medical practices, but problems sometimes occur. Call your health care provider if you have any problems or questions after your procedure. What can I expect after the procedure? After your procedure, you may: Feel sleepy for several hours. Feel clumsy and have poor balance for several hours. Feel forgetful about what happened after the procedure. Have poor judgment for several hours. Feel nauseous or vomit. Have a sore throat if you had a breathing tube during the procedure. Follow these instructions at home: For at least 24 hours after the procedure: Have a responsible adult stay with you. It is important to have someone help care for you until youare awake and alert. Rest as needed. Do not: ? Participate in activities in which you could fall or become injured. ? Drive. ? Use heavy machinery. ? Drink alcohol. ? Take sleeping pills or medicines that cause drowsiness. ? Make important decisions or sign legal documents. ? Take care of children on your own. Eating and drinking Follow the diet that is recommended by your health care provider. If you vomit, drink water, juice, or soup when you can drink without vomiting. Make sure you have little or no nausea before eating solid foods. General instructions Take abei-niz-bhtjwto and prescription medicines only as told by your health care provider. If you have sleep apnea, surgery and certain medicines can increase your risk for breathing problems. Follow instructions from your health care provider about wearing your sleep device: ? Anytime you are sleeping, including during daytime naps. ? While taking prescription pain medicines, sleeping medicines, or medicines that make you drowsy. If you smoke, do not smoke without supervision. Keep all follow-up visits as told by your health care provider. This is important. Contact a health care provider if: You keep feeling nauseous or you keep vomiting. You feel light-headed. You develop a rash. You have a fever. Get help right away if: You have trouble breathing. Summary For several hours after your procedure, you may feel sleepy and have poor judgment. Have a responsible adult stay with you for at least 24 hours or until you are awake and alert. This information is not intended to replace advice given to you by your health care provider. Make sure you discuss any questions you have with your health care provider. Document Released: 08/01/2016 Document Revised: 07/10/2018 Document Reviewed: 08/01/2016 [employer]ed [employer] Patient Education 2020 [employer]. Colonoscopy, Adult, Care After This sheet gives you information about how to care for yourself after your procedure. Your health care provider may also give you more specific instructions. If you have problems or questions, contact your health care provider. What can I expect after the procedure? After the procedure, it is common to have: A small amount of blood in your stool for 24 hours after the procedure. Some gas. Mild abdominal cramping or bloating. Follow these instructions at home: General instructions For the first 24 hours after the procedure: ? Do not drive or use machinery. ? Do not sign important documents. ? Do not drink alcohol. ? Do your regular daily activities at a slower pace than normal. ? Eat soft, ydfb-pl-xnrzjo foods. Take chtt-gue-fturdnm or prescription medicines only as told by your health care provider. Relieving cramping and bloating Try walking around when you have cramps or feel bloated. Apply heat to your abdomen as told by your health care provider. Use a heat source that your healthcare provider recommends, such as a moist heat pack or a heating pad. ? Place a towel between your skin and the heat source. ? Leave the heat on for 20 30 minutes. ? Remove the heat if your skin turns bright red. This is especially important if you are unable to feel pain, heat, or cold. You may have a greater risk of getting burned. Eating and drinking Drink enough fluid to keep your urine pale yellow. Resume your normal diet as instructed by your health care provider. Avoid heavy or fried foods thatare hard to digest. Avoid drinking alcohol for as long as instructed by your health care provider. Contact a health care provider if: You have blood in your stool 2 3 days after the procedure. Get help right away if: You have more than a small spotting of blood in your stool. You pass large blood clots in your stool. Your abdomen is swollen. You have nausea or vomiting. You have a fever. You have increasing abdominal pain that is not relieved with medicine. Summary After the procedure, it is common to have a small amount of blood in your stool. You may also have mild abdominal cramping and bloating. For the first 24 hours after the procedure, do not drive or use machinery, sign important documents, or drink alcohol. Contact your health care provider if you have a lot of blood in your stool, nausea or vomiting, a fever, or increased abdominal pain. This information is not intended to replace advice given to you by your health care provider. Make sure you discuss any questions you have with your health care provider. Document Released: 11/23/2004 Document Revised: 02/01/2018 Document Reviewed: 06/22/2016 [employer]ed [employer] Patient Education 2020 [employer]. Additional Information VACCINATE! IT SAVES LIVES! Members of the community who have not yet received the COVID-19 vaccine and would like to receive it can visit one of [facility] vaccine clinics. There are many vaccine clinic locations within the [facility]. For locations and available times, please visit [email or web address].[place].gov/. It is important to note that some COVID mobile vaccine clinics are held outdoors and may be canceled in rainy or stormy conditions. To learn more about pediatric vaccinations (ages 5-11), we invite you to visit the [facility] webpage. [email or web address] learn more about the COVID-19 vaccine, we invite you to visit the CDC website for a list of frequently asked questions.https://www.cdc.gov/coronavirus/2019-ncov/vaccines/faq.html [facility] Patient Portal Access Instructions: Stay connected with your healthcare team and access your personal medical information anytime with the [facility] Patient Portal. Please follow the directions below to create your [facility] account: 1.Access the email account you provided upon registration to the hospital/physician office.2.Look for an invitation email from [facility].3.Open the email and access the invitation link: [facility]itation to [facility].4.Fill in the required ambrose to create your account. To access your account, visit [email or web address]. Click the blue button labeled Access Patient Portal and then log in with the username and password that you created in the steps above. You will be able to view your test results, lab results, a summary of your visits, upcoming appointments and more. There is also a convenient messaging option where you can send secure messages to your p rovider. In addition, you will have the ability to download any documents or summaries to your computer and/or send the information securely to a physician. Remember that your healthcare information is confidential, so carefully consider who you will allowto register on the [place] [email or web address] Patient Portal for access to your information. You can also access the [place] [facility] Patient Portal on the [place] [facility] rory. Simply click on Patient Portal and then log into your account. If you would like to receive a full copy of your medical records, please contact the [facility] Medical Records Department by calling [phone], Tuesday through Tuesday between 8 a.m. and 4:30 p.m. HOW TO SAFELY DISPOSE OF PRESCRIPTION MEDICATIONS Please use one of the following methods to safely dispose of your unused medications. 1.Use a drug disposal kit: the drug disposal pouch allows you to safely discard your old and unuseddrugs. Ask your nurse to give you one when you are discharged.2.Visit a local take-back location: Many local pharmacies and police departments have programs that collect old and unwanted prescriptiondrugs. Call your local pharmacy or go to http://bit.ly/8H8Sa7u to find one close to you.3.Make use of household items: Use cat litter or old coffee grounds to dispose medications if other options arenot available. Mix your drugs with these household products, seal them in an airtight container andthrow it into the garbage. Call [facility]: [phone] to be sure your drugs can be disposed of in this way. Some medicines may require a different approach.4.Never flush your medications down the toilet. IF YOU HAVE BEEN PRESCRIBED AN OPIOID FOR PAIN If you have been prescribed an opioid (such as hydrocodone, oxycodone or morphine), it is critical to understand the possible side effects and risks of opioid pain medications. Even when taken as directed, opioids can have several side effects including: Tolerance, meaning you might need to take more of a medication for the same pain relief. Nausea, vomiting and/or constipation. Sleepiness, dizziness, dry mouth, confusion, depression or itching. Physical dependence, meaning you have withdrawal symptoms when a medication is stopped, can develop within a few days. KNOW YOUR RESPONSIBILITIES It is important to know exactly how much and how often to take the opioid pain medications you are prescribed. Never take opioids in higher amounts or more often than prescribed. Do not combine opioids with alcohol or other drugs that cause drowsiness, such as benzodiazepines, also known as benzos, including diazepam and alprazolam, muscle relaxants or sleep aids. Never sell or share prescription opioids. This is illegal. Store opioids in a secure place and out of reach of others (including children, family, friends and visitors). The last page of this document has been signed and retained as a CHART COPY. Signatures Patient Education Materials Nausea and Vomiting, Adult Monitored Anesthesia Care, Care After Colonoscopy, Adult, Care After Medication Leaflets My discharge plan and instructions have been reviewed and explained to me and I,MARICEL JAMES understand my current condition and have read and understand these discharge instructions. I have received a written copy of the plan/instructions. If I have questions, I am aware that I should contact my doctor. Patient/Seaman Signature: Date/Time: Relationship to Patient: Witness Name/Signature: Date/Time: [facility]11-20-2023 Anesthesiology Consult note Patient: MARICEL JAMES Age: 72 years Sex: Male : 1950 Associated Diagnoses: None Author: LORI QUEVEDOMANAGER MARKETING Preoperative Information Time of last food or liquid consumption: 03/14/2023 05:00:00 Anesthesia history Patient's history: negative. Family's history: negative. Review of Systems Ear/Nose/Mouth/Throat: Negative. Respiratory: Sleep apnea, copd. Cardiovascular: htn. Gastrointestinal: mo. Genitourinary: Negative. Endocrine: dm. Musculoskeletal: Negative. Integumentary: Negative. Neurologic: Negative. Health Status Allergies: Allergic Reactions (Selected) Severity Not Documented Penicillin- Hives., Allergies (1) ActiveReaction penicillinHives Current medications: (Selected) Documented Medications Documented DilTIAZem (Eqv-Cardizem CD) 180 mg/24 hours oral capsule, extended release: 0 Refill(s) HumaLOG 100 units/mL subcutaneous solution: Subcutaneous, TIDAC Jardiance 10 mg oral tablet: 10 mg, 1 tab(s), Oral, qAM, 30 tab(s), 0 Refill(s) Levemir: Subcutaneous, BID acyclovir 400 mg oral tablet: 400 mg, 1 tab(s), Oral, BID, 14 tab(s), 0 Refill(s) atorvastatin 20 mg oral tablet: 20 mg, 1 tab(s), Oral, qHS, 30 tab(s) ciprofloxacin 500 mg oral tablet: 500 mg, 1 tab(s), Oral, q12h, for 10 day(s), 20 tab(s), 0 Refill(s) losartan 100 mg oral tablet (NF): 100 mg, 1 tab(s), Oral, qDay, 30 tab(s) metFORMIN 1000 mg oral tablet: 1,000 mg, 1 tab(s), Oral, BID tamsulosin 0.4 mg oral capsule: 0.4 mg, 1 cap(s), 0 Refill(s), No qualifying data available Problem list: Medical Cholesterol / SNOMED CT 861829647 / Confirmed Diabetes mellitus / SNOMED CT 490385700 / Confirmed Hypertension / SNOMED CT 89201853 / Confirmed, Active Problems (4) Cholesterol COPD (chronic obstructive pulmonary disease) Diabetes mellitus Hypertension Histories Past Medical History: Active Diabetes mellitus (985529551) Hypertension (67723598) Cholesterol (624080347) Family History: No family history items have been selected or recorded. Procedure history: Colonoscopy ([id number]) on 03/14/2023 at 72 Years. TURP - Redo transurethral resection of prostate ([id number]) on 02/02/2023 at 72 Years. Heel spur ([id number]). Social History Social & Psychosocial Habits Alcohol 03/14/2023 Frequency: 1-2 times per month Substance Abuse 03/14/2023 Use: Never Tobacco 03/14/2023 Tobacco Use: Former smoker, quit more . Physical Examination Vital Signs 03/14/2023 10:24 EST Temperature Temporal Artery 36.8 DegC Respiratory Rate 17 br/min Systolic Blood Pressure Non-Invasive 158 mmHg HI Diastolic Blood Pressure Non-Invasive 72 mmHg Vital Signs(last 24 hrs) Last Charted Resp Rate 17 br/min (MAR 14 10:24) SBPH 158mmHg (MAR 14 10:24) DBP72 mmHg (MAR 14 10:24) Measurements from flowsheet : Measurements 03/14/2023 10:24 EST Height 177.8 cm Admission Weight 147.7 kg [place] Body Weight 73.00 kg Admission Body Mass Index 46.72 m2 03/14/2023 10:20 EST Height 177.8 cm [place] Body Weight 73.00 kg Pain assessment: Pain Assessment 03/14/2023 10:24 EST Pain Scale Type 0-10 Pain scale . General: Alert and oriented. Airway: Normal temporomandibular joint mobility. Mallampati classification: III (soft palate, base of uvula visible). Head: Normocephalic. Dentition Evaluation: Own teeth. Neck: Supple. Respiratory: Lungs are clear to auscultation. Cardiovascular: Normal rate. Heart Sounds: Normal. Gastrointestinal: Soft. Musculoskeletal Normal range of motion. Integumentary: Intact. Neurologic: Alert, Oriented. Review / Management Results review: No qualifying data available , Lab results 03/14/2023 10:24 EST Height 177.8 cm Admission Weight 147.7 kg [place] Body Weight 73.00 kg Admission Body Mass Index 46.72 m2 Temperature Temporal Artery 36.8 DegC Respiratory Rate 17 br/min Systolic Blood Pressure Non-Invasive 158 mmHg HI Diastolic Blood Pressure Non-Invasive 72 mmHg Pain Scale Type 0-10 Pain scale Heart Rhythm Regular Respirations Unlabored All Lobes Breath Sounds Diminished Cough None Oxygen Therapy Nasal cannula 0L-6L Oxygen Saturation 94 % Oxygen Flow Rate 3 Abdomen Description Non-distended, Soft Bowel Sounds All Quadrants Present Skin Temperature Warm Skin Description [place] Skin Integrity Intact Mucous Membrane Color [place] Skin Moisture General Dry Neurological Symptoms Patient denies Characteristics of Speech Clear Level of Consciousness Alert Strength All Extremities Strong Affect/Behavior Appropriate, Calm, Cooperative Orientation Oriented x 4 Assistive Device None Standard Safety ID band on, Allergy Band on, Call device within reach, Bed in low position, Wheels locked 03/14/2023 10:20 EST Designated Person #1 We May Share SACHA James [phone] Designated Person #1 Relationship Spouse Privacy Restrictions Requested None Height 177.8 cm [place] Body Weight 73.00 kg Status N/A Sensory Deficits Hearing deficit, left ear, Hearing deficit, right ear Infectious Disease Symptoms Patient states no symptoms Infectious Disease Recent Exposure No Alcohol and Drug Use No Employee of Institutional Living No Health Care Employee No History of Exposure to TB No History of Positive Chest X-Ray for TB No History of Positive TB Skin Test No Homeless No Known Immunosuppression No Recent Immigrant No Resident of Institutional Living No Bloody Sputum No Fatigue No Fever No Loss of Appetite No Night Sweats No Persistent Cough > 3 Weeks No Weight Loss No Barriers to Learning None evident Teaching Method Printed materials Preferred Spoken Language Malagasy Preferred Written Language Malagasy Information Given by Patient Patient's Current Physicians Dr. Mcdaniel Discharge To, Anticipated Home with family care Prev Test Positive/Diagnosis w/COVID-19 Yes Previous COVID-19 Positive Date 2020 Current Quarantine/Isolated any Illness No Any Contact with Sick Animals/Birds No Traveled Anywhere in Last 30 Days No N/A Personal Devices, Patient Valuables Glasses Admission Note-Nursing Procedure/Therapy Intake 03/14/2023 10:04 EST Urinary Elimination Voiding, no difficulties IV Present Present Allergies Yes Colon Prep Results Fair Consent Form Signed Yes Patient Dressed In Hospital gown History & Physical Update On Chart Yes History & Physical On Chart Yes Bowel Prep Completed Yes Obstructive Sleep Apnea Assess Completed Yes Belongings At Bedside Glasses, Pants, Shirt, Shoes Personal Home Medications Received No home medications were brought in NPO Status Maintained Allergy Band on and Verified Yes Patient ID Band on and Verified Yes Implants Verified Yes Pacemaker/AICD Verified Yes Site Verified by Patient/Family Yes Anesthesia Consent Signed Yes Last Fluid Intake 03/14/2023 7:15 Last Food Intake 03/13/2023 10:10 . Assessment and Plan [place] [employer]hesi[employer] (ASA) physical status classification: Class III. Anesthetic Preoperative Plan Anesthetic technique: MAC. Postoperative pain management: Per surgeon. Informed consent: signed by patient. Digitally Signed by LORI QUEVEDO on 03/14/2023 10:43 AM [facility]11-15-2023 Miscellaneous Notes* Telephone Encounter - Jessenia Richardson - 03/09/2023 3:53 PM EST Pt scheduled as directed * Telephone Encounter - Cha Bautista RN - 03/09/2023 3:30 PM EST Please change lab appointment on 03/15 to 2:00 pm. Thank you. Patient aware. Cha Bautista RN * Telephone Encounter - Cha Bautista RN - 03/09/2023 11:34 AM EST CYCLE 1/DAY 1 POST TREATMENT CALL Today's date: March 09, 2023 Treatment Regimen: Darzalex C1D1 Date: 03/08/23 Called patient to follow-up on symptom management. Spoke with patient SYMPTOM ASSESSMENT Neuro: Numbness/Weakness/Tingling legs feel a little weak. CV/Resp: A little SOB this am. Patient uses oxygen intermittently, patient used oxygen this morning. GI/: Nausea yesterday, mild. Patient stated his appetite is good, drinking quite a bit water, drinks around 1 gallon per day. Patient stated he has a runny nose, nasal congestion, and sneezing started 5pm yesterday. Integument: Itching yesterday back/chest. Activity: Patient reported no changes in energy level, energy level fair Pain: No=0 (pain 0 on a scale of 0-10). Fever: No Chills: No Patient started darzalex yesterday. Patient felt itchy on his stomach and back around 10:00 pm last night. Patient denies rash, welts, or bumps. Patient denies throat/tongue/lip swelling or difficulty breathing. Patient took 2 tablets of benadryl after the itching started and woke up in the middle of the night to take another dose which resolved the itching but then developed stomach cramps. Patient denies any itching or rash today, stomach cramps resolved. Patient stated he is feeling well today. Patient informed this nurse thathe has a colonoscopy scheduled for next Tuesday. Patient also asked if he should have a repeat urineculture which this nurse informed patient to call Dr. Haynes's office. Patient instructed to call with any worsening/new rash, itching, swelling, etc. Patient stated understanding. Any new referrals needed? No Reinforced CURRENT treatment education based on current and anticipated symptoms. Discussed port/line care and patient verbalizes understanding: Not Applicable Patient instructed to contact office or after hours Hematology/Oncology fellow for: temperature ? 100.4; questions or concerns. Patient verbalized understanding of when to seek medical attention and after hours number protocol. Cha Bautista RN [facility] Miscellaneous Notes* Telephone Encounter - Marislo Hollis RN - 03/07/2023 11:35 AM EST Spoke with patient and he agreed to come in at 9:30 for treatment/observation time. I also informed him to take his revlimid tomorrow. * Telephone Encounter - Jessenia Richardson - 03/07/2023 10:36 AM EST Spoke with pt and message given Pt asking if he should take his revelmid tomorrow morning prior to treatment Pt also asking about treatment tomorrow. Mentioned about needing to be observed for 4 hour Please contact pt and advise Thank you! * Telephone Encounter - Katey Booker DO - 03/07/2023 10:28 AM EST He can start back on treatment tomorrow. CBC/CMP/straight back. Katey Booker DO * Telephone Encounter - Dangelo Lopez - 03/07/2023 9:44 AM EST Patient called stating he is still taking antibiotics and will finish them up end of this week. He is asking about scheduled treatments. Please advise. [facility] Miscellaneous Notes* Telephone Encounter - Cha Bautista RN - 03/04/2023 3:35 PM EST [place] Care Coordination FOLLOW-UP NOTE Patient identified by name and date of . YES Spoke to patient Summary: (Reason for follow-up) Patient asking if he is okay to proceed with treatment on Tuesday. Patient is on antibiotics for 10days. Patient started evening dose on Tuesday. Patient still has some dysuria but stated this has improved since being on the antibiotics. Will follow-up with Dr. Booker on Tuesday. Patient verbalized when to seek Medical Attention and an understanding of after- hours phone numberand process: Yes Care Coordination Plan: Will follow up after speaking to Dr. Booker. Cha Bautista RN March 04, 2023 * Telephone Encounter - Mana Hernandez - 03/01/2023 4:18 PM EST Spoke with patient and advised we would start next week as scheduled as of now. Please advise if next week Tuesday is ok. Mana Hernandez * Telephone Encounter - Rubi Harris LPN - 03/01/2023 9:17 AM EST Spoke with pt, informed we are cancelling his treatment for today . Urine culture positive, Pt. States he was placed on Cipro 500 mg BID and started it yesterday. Informed will contact him later today with all the particulars on resuming treatment. Rubi Harris LPN\ documented [facility] History of Present illness Narrative* Breezy Black RN - 03/01/2023 2:07 PM EST Today's tx canceled by Dr. Booker. Pt and spoke with Geri HASSAN. See telephone note. documented in this encounter[facility]11-[facility]23 Miscellaneous Notes* Telephone Encounter - Katey Booker DO - 02/28/2023 5:07 PM EST I reviewed the CT images. Agree with need for colonoscopy. Katey Booker DO * Telephone Encounter - Cha Bautista RN - 02/28/2023 3:48 PM EST Patient is scheduled for an OV with Dr. Lo on 03/16/23. Cha Bautista RN * Telephone Encounter - Cha Bautista RN - 02/28/2023 12:00 PM EST Images from the original note were not included. Spoke to patient today for chemo edu. Patient stated he had a CT completed at [facility] last Tuesday and the CT of the abd/pelvis showed a mass in the colon. Patient stated his last colonoscopy was with about 7 years ago. Patient is thinking about giving Dr. Lo a call to follow-up on this finding. Patient is also asking what Dr. Booker thinks he should do. Patient is waiting on a call from Dr. Haynes's office today to discuss the plan moving forward withthe antibiotics to treat the UTI. Patient stated he feels the UTI symptoms have improved. This nurse instructed patient to follow-up with Dr. Haynes's office. This nurse instructed patient to follow-up with Dr. Haynes's office on what to do, even if he is feeling better to make sure he completes harika atment for the UTI. Patient stated understanding. Per ED notes: We ended up talking with pharmacy. There were thoughts of using ertapenem as its once a day. We could bring him back for repeat dosing. Pharmacist said that fosfomycin orally likely has better coverage for Pseudomonas based on susceptibilities and then ertapenem does. He recommended fosfomycin 3 g. He stated for Pseudomonas it would be 3 g every 3 days for 3 doses. This would make it so his nextdose would be due till Tuesday. I will give him 1 dose here. Then he will call Dr. Haynes's office on Tuesday. Depending on how he is feeling they may do the IV therapy or they can write for 2 more doses of fosfomycin. I will write for the prescription and give it to him as a print out so he has this available but will not send the medicine pending decision on Tuesday. Patient is happy and would prefer this plan. 02/25/23 1620<Electronically signed by Dru Mayfield MD> Cha Bautista RN documented in this encounterEast [facility]11-06-2023 Nurse Note* Cha Bautista RN - 02/28/2023 4:35 PM EST This visit was completed via telephone. Cha Bautista RN * Cha Bautista RN - 02/28/2023 4:34 PM EST ONCOLOGY PATIENT EDUCATION NOTE TOPIC: Chemotherapy, Medications: darzalex READINESS TO LEARN: COGNITIVE ABILITY: Alert and oriented MOTIVATION TO LEARN: Interested FAMILY SUPPORT: High - Very involved in pt care INSTRUCTION PROVIDED TO: Patient and Spouse INSTRUCTION PROVIDED BY: Nurse Coordinator PATIENT LEARNS BEST BY: Multiple Methods FACTORS AFFECTING LEARNING: None PHYSICAL LIMITATIONS AFFECTING LEARNING: None LEARNING RESPONSE DIAGNOSIS: Multiple Myeloma METHOD OF INSTRUCTION: Individual instruction Written instruction - handouts Verbal instruction PATIENT/FAMILY RESPONSE: Verbalizes understanding of: CHEMOTHERAPY-Regimen, toxicity and side effects FOLLOW UP PLAN: Patient instructed to call with any further issues Recommend - Recommend continued instruction and follow up as directed Follow up phone call. Contact information given. SUPPLEMENTAL MATERIAL: Written material was provided at this visit with the following information: - Chemotherapy education was provided by a pharmacist NO - Side effect management information was provided/discussed including but not limited to: anemia, appetite changes, arthralgia, bowel habit changes, diet, electrolyte disturbances, fatigue, hypersensitivity reaction, infection, nausea/vomitting, skin changes, thrombocytopenia YES - Provided important phone numbers and contacts during and after hours. YES - Provided information on symptoms that require immediate assistance. YES - Provided Chemotherapy when to call handouts YES - Preventing infection. YES - Treatment schedule and confirmation of appointment times. YES - Available support groups. YES - The importance of contraception during the course of chemotherapy YES - Neutropenic fever protocol discussed with patient, which included the importance of reporting anyfever of 100.4F (38.0C) or greater to the healthcare team as noted on the provided wallet card and/or magnet. YES Time Spent: 60 minutes REFERRAL (RECOMMENDATION): N/A Cha Bautista RN documented in this encounter[facility]11-06-2023 Miscellaneous Notes* Telephone Encounter - Cha Bautista RN - 02/28/2023 3:[address] Chan office. They have access to [facility] records. Informed them that they can pull up ED report and abd/pelvis CT from last Tuesday. This nurse will fax over our recent records. Cha Bautista RN * Telephone Encounter - Dangelo Lopez - 02/28/2023 3:42 PM EST Patient called stating he has a colonoscopy scheduled with Dr. Lo and his office is requesting records to be sent to them in regards for procedure. Patient states this may include records from [facility] in which he had imaging and labs. documented in this encounterEast [facility]11-03-2023 Discharge summary Author Dru Mayfield [facility] February 25, 2023 4:20pm Note Date/Time February 25, 2023 1 2:02pm [facility] Medical Records Department [address] [place] [address] Emergency Department Summary 02/25/23 MR#: [id number] Acct: [id number] Name: CYN JAMES Jr. Rep #:[id number] : 1950 72 From: Dru Mayfield MD PCP: Dr. Krishna Mcdaniel, Status:RE G ER Location: ED ADDENDUM by Dr. Dru Mayfield MD on 02/25/23 at 1620 We ended up talking with pharmacy. There were thoughts of using ertapenem as its once a day. We could bring him back for repeat dosing. Pharmacist said that fosfomycin orally likely has better coverage for Pseudomonas based on susceptibilities and then ertapenem does. He recommended fosfomycin 3 g. He stated for Pseudomonas it would be 3 g every 3 days for 3 doses. This would make it so his next dose would be due till Tuesday. I will give him 1 dose here. Then he will call Dr. Haynes's office on Tuesday. Depending on how he is feeling they may do the IV therapy or they can write for 2 more doses of fosfomycin. I will write for the prescription and give it to him as a print outso he has this available but will not send the medicine pending decision on Tuesday. Patient is happy and would prefer this plan. 02/25/23 1620<Electronically signed by Dru Mayfield MD> Cosigner Signature (if applicable): cc: Dr. Krishna Mcdaniel, DO ~* Signed HPI History of Present Illness Chief Complaint: Complaint Informant: patient Narrative Narrative: Patient was referred in here for positive urine culture with Pseudomonas only sensitive to IV antibiotics. This patient was having some pain in his back about 4 weeks ago. But he states now it is in a different spot. It is in his upper lumbar area. It is more on the right than the left. It does go down to the lower lumbar area. There is some motion component to it but no trauma or injury. He denies any significant urinary symptoms to me. He states when he urinates he gets a slight burning at the very end only. But he is urinating normal amounts. He is drinking more water as he was told to do. He does not have fevers or chills. No abdominal pain. He states he actually feels pretty well. This patient has history of multiple myeloma. He also had a TURP about 3 weeks ago. He states he has done well with that. He was placed on Bactrim afterwards. But he only took this for about 5 days because it was causing diarrhea. The diarrhea has since resolved. But the concern is that this patient does have some immune suppression with a resistant bacteria. But he is having minimal urinary symptoms. The question is is the back pain a stone pyelonephritis or mechanical. He was sent in here for further evaluation. [facility] Medical History Abnormal electrocardiogram Alcohol use Anemia Atherosclerotic heart disease of [place] coronary artery without angina pectoris Cancer Cardiology follow-up encounter Chest pain Chicken pox COPD (chronic obstructive pulmonary disease) CPAP (continuous positive airway pressure) dependence RUIZ (dyspnea on exertion) Erectile dysfunction Essential hypertension Former smoker High cholesterol History of atrial fibrillation History of CHF (congestive heart failure) History of echocardiogram History of edema History of Holter monitoring History of irregular heartbeat History of left heart catheterization (LHC) (~01/27/11) History of steroid therapy History of stress test Hx of multiple myeloma Insulin dependent diabetes mellitus Measles Mixed hyperlipidemia Multiple myeloma Murmur Obesity On home oxygen therapy CONCHA (obstructive sleep apnea) Palpitations Rash Shortness of breath on exertion Sleep apnea Smoldering multiple myeloma SOB (shortness of breath) Type 2 diabetes mellitus Wears glasses Wears hearing aid Home Medications atorvastatin 20 mg tablet (Lipitor) 20 mg PO QDAY cholesterol 08/19/17 [History Last Taken 02/01/23] calcium carbonate 600 mg-vitamin D3 5 mcg (200 unit) tablet (Calcium 600 with Vitamin D3) 1 tab PO QDAY supplement 08/19/17 [History Last Taken 06/17/20 10:00] magnesium 250 mg tablet 500 mg PO QDAY supplement 08/19/17 [History Last Taken 02/01/23] metformin 1,000 mg tablet (Glucophage) 1,000 mg PO BID diabetes 08/19/17 [History Last Taken 02/01/23] omega-3 fatty acids 1,000 mg capsule 1,000 mg PO QDAY supplement 08/19/17 [History Last Taken 01/25/23] levomefolate Ca 3 mg-B6 35 mg-meB12 2 mg-algal oil 90.314 mg capsule (Metanx (algal oil)) 1 cap PO BID 12/16/17 [History Last Taken 02/01/23] cholecalciferol (vitamin D3) 50 mcg (2,000 unit) tablet 50 mcg PO DAILY supplement 05/14/22 [History Last Taken Unknown] diltiazem HCl 180 mg capsule,extended release 24 hr 180 mg PO DAILY heart rate 05/14/22 [History Last Taken 02/02/23 07:45] acyclovir 400 mg tablet 400 mg PO BID anti viral 10/14/22 [History Last Taken 02/01/23] ondansetron 8 mg disintegrating tablet 8 mg PO Q8H PRN nausea and vomiting 10/14/22 [History Last Taken Unknown] albuterol sulfate 90 mcg/actuation aerosol inhaler (Ventolin HFA) 2 puff inhalation Q4H breathing #18 grams 12/07/22 [Rx Last Taken 02/01/23] handicap placard #1 ea 01/18/23 [Rx Last Taken Unknown] losartan 50 mg tablet 50 mg PO DAILY #90 tabs 01/18/23 [Rx Last Taken 02/01/23] torsemide 10 mg tablet 10 mg PO QAM #30 tabs 01/18/23 [Rx Last Taken 02/01/23] fluticasone fur. 200 mcg-umeclid 62.5 mcg-vilant 25 mcg inhalat.powder (Trelegy Ellipta) 1 inh inhalation DAILY 02/01/23 [History Last Taken 02/02/23] dexamethasone 4 mg tablet 8 mg PO .QTHURS 02/23/23 [History Last Taken Unknown] empagliflozin 10 mg tablet (Jardiance) 10 mg PO DAILY 02/23/23 [History Last Taken Unknown] insulin aspart U-100 100 unit/mL (3 mL) subcutaneous pen (Novolog FlexPen U-100 Insulin aspart) 46 unit subcut QACDINNER diabetes 02/23/23 [History Last Taken Unknown] insulin aspart U-100 100 unit/mL (3 mL) subcutaneous pen (Novolog FlexPen U-100 Insulin aspart) 52 unit subcut QACLUNCH diabetes 02/23/23 [History Last Taken Unknown] insulin aspart U-100 [Novolog FlexPen U-100 Insulin] 32 unit subcut QACBREAK diabetes 02/23/23 [History Last Taken Unknown] insulin detemir U-100 [Levemir FlexTouch U100 Insulin] 74 unit subcut TIDWMEAL diabetes 02/23/23 [History Last Taken Unknown] lenalidomide 15 mg capsule 15 mg PO DAILY 02/23/23 [History Last Taken Unknown] pantoprazole 40 mg tablet,delayed release 40 mg PO QAM #60 tabs 02/23/23 [Rx Last Taken Unknown] Allergy/AdvReac Type Severity Reaction Status Date / Time Penicillins Allergy Mild Rash Verified 02/25/23 11:21 Family History Father Myocardial infarction Mother Breast cancer Surgical History Bone spur removal History of cataract extraction Hx of bilateral cataract extraction Hx of esophagogastroduodenoscopy Status post recent transurethral resection of prostate Social History Smoking Status: Former smoker quit date: 04/25/02 pack-years: 31 alcohol intake: current alcohol intake frequency: holidays/special occasions only substance use type: does not use caffeine: Yes Type: coffee Number of servings: 5 ROS ROS ED Constitutional Constitutional ED: Denies chills, fever(s), subjective or sweats Eyes Eyes: Denies change in vision Cardiovascular Cardiovascular: Denies chest pain or palpitations Respiratory/Chest Respiratory/Chest: Denies cough or dyspnea Gastrointestinal Gastrointestinal: Denies abdominal pain, diarrhea, nausea or vomiting Genitourinary Genitourinary ED: Reports dysuria; Denies hematuria or urinary frequency Musculoskeletal Musculoskeletal: Reports back pain; Denies arthralgias, myalgias or neck pain Integumentary Denies rash Neurologic Neurologic: Denies headache(s) Endocrine Endocrinology: Denies polydipsia or polyuria Allergic/Immunologic Allergic/Immunologic ED: Denies urticaria EXAM Physical Exam Narrative Exam Narrative: CONSTITUTIONAL: Patient is nontoxic in appearance. The patient looks comfortable. He is very nontoxic in appearance. HEENT: No notable trauma. Mucous membranes moist. EYES: No conjunctival injection. CARDIOVASCULAR: Regular rate. Regular rhythm. No notable murmur. No JVD. RESPIRATORY: No respiratory distress. Breathing is unlabored. No wheezes. No rhonchi. No rales. No pain with a deep breath. GASTROINTESTINAL: His abdomen is obese but not distended. Bowel sounds are normal. No tenderness. No guarding. No rebound. No palpable mass. No bruit. Overall abdomen is quite benign. GENITOURINARY: No tenderness over the bladder. He does have some tenderness along the right paraspinal muscles and some very mild CVA tenderness. But this is hard to separate if this is truly CVA or just muscular tenderness. I do not see any skin changes there. I still feel no mass. He really does not have symptoms on the left on exam. MUSCULOSKELETAL: Atraumatic. NEUROLOGICAL: Patient is alert and appropriate. No focal deficit noted. SKIN: No noted rashes. No diaphoresis. PSYCHIATRIC: Patient is calm. Mood is appropriate. Const Vital Signs: 02/25/23 11:11 Temperature 97.8 F Temperature Source Temporal Pulse Rate 79 Respiratory Rate 16 Blood Pressure 188/84 H Blood Pressure Mean 118 Pulse Ox 95 Oxygen Delivery Method Room Air MDM MDM MDM Narrative Medical decision making narrative: Patient CBC shows mild elevation white count of 13.3. Mild anemia. Platelets were asked dated adequate. Patient's glucose is slightly up at 249 but remainder of electrolytes are overall normal. Patient's urine does show 25-50 white cells and positive leukocyte Estrace. 1+ bacteria. My independent interpretation of the patient's CT of the abdomen shows no acute bony lesion. Kidneys look normal. There is a mass noted in the sigmoid colon that was also noted by radiology read. I talked with the patient about this. He states he has had some soreness down in that area off and on for a while. Hewas set to have a colonoscopy last year or so. But this was before he was on oxygen. He went to have the test and his oxygen level was lower than 95% so they could not do the colonoscopy and it just has not occurred again. I I was able to discuss the case also with Dr. Booker. He will make sure the mass in the colon is followed up. I was trying to write for outpatient antibiotics for this patient. We then called the infusion center. They states that an ER physician cannot do this. It has to go through outpatient physician. We calledback Dr. Haynes and he will help set up outpatient therapy but will probably notbe until Tuesday because we are over the weekend. We will give her ertapenem here as its once a day. I am recommending that the patient comes back each day to get IV therapy here. He feels well and really does not want to come in the hospital. I think this is the best solution to a challenging problem. Lab Data Attestation: I reviewed the patient's lab results. Labs: Laboratory Results - last 24 hr 02/25/23 02/25/23 12:10 12:17 WBC 13.3 H RBC 3.90 L Hgb 10.3 L Hct 34.4 L MCV 88.2 MCH 26.4 L MCHC 29.9 L RDW Std Deviation 52.6 H RDW Coeff of Kavya 16.4 H Plt Count Immature Gran % (Auto) 1.300 H Neut % (Auto) 81.0 H Lymph % (Auto) 10.2 L [place] % (Auto) 7.2 Eos % (Auto) 0.1 Baso % (Auto) 0.2 Absolute Neuts (auto) 10.7 H Absolute Lymphs (auto) 1.35 Nucleated RBC % 0 Differential Comment SCANNED Platelet Estimate ADEQUATE Sodium 139 Potassium 4.2 Chloride 105 Carbon Dioxide 28.0 Anion Gap 6 BUN 21 H Creatinine 0.85 Est GFR (MDRD) Af Amer 115 Est GFR (MDRD) Non-Af 95 BUN/Creatinine Ratio 24.8 H Glucose 249 H Calcium 9.3 Urine Color Yellow Urine Clarity Clear Urine pH 6.0 Ur Specific [place] 1.010 Urine Protein 30 H Urine Glucose (UA) 1000 H Urine Ketones Negative Urine Occult Blood 150 H Urine Nitrite Negative Urine Bilirubin Negative Urine Urobilinogen Normal Ur Leukocyte Esterase 500 H Urine RBC 0 SEEN Urine WBC 25-50 SEEN Ur Squamous Epith Cells 0 SEEN Urine Bacteria 1+ Urine Mucus 0 SEEN Radiography Diagnostic Testing: Clinical Impression(s) from Imaging Studies Abdomen/Pelvis CT 02/25/23 11:54 IMPRESSION: 6.2 cm x 4.6 cm soft tissue mass in the region of the sigmoid colon. A neoplastic process should be ruled out. No evidence of ureteral obstruction. Mild enlargement of the prostate gland. Electronically Signed: Adán Espinosa MD at 13:30 EDT , Discharge Plan Triage Chief Complaint: Complaint ED Provider: Dru Mayfield Dx/Rx/DC Orders Clinical Impression: Colonic mass, Agent resistant to multiple antibiotics, Acute UTI Instructions: Urinary Tract Infections in Men Prescriptions: No Action calcium carbonate-vitamin D3 [Calcium 600 with Vitamin D3] 600 mg(1,500mg) -200 unit tablet 1 tab PO QDAY magnesium 250 mg tablet 500 mg PO QDAY omega-3 fatty acids 1,000 mg capsule 1,000 mg PO QDAY atorvastatin [Lipitor] 20 mg tablet 20 mg PO QDAY metformin [Glucophage] 1,000 mg tablet 1,000 mg PO BID insulin detemir U-100 [Levemir FlexTouch U100 Insulin] 74 unit SC TIDWMEAL insulin aspart U-100 [Novolog FlexPen U-100 Insulin] 32 unit SC QACBREAK [id number] oil [Metanx (algal oil)] 3 mg-35 mg-2 mg -90.314 mg capsule 1 cap PO BID diltiazem HCl 180 mg capsule,extended release 24hr 180 mg PO DAILY cholecalciferol (vitamin D3) 50 mcg (2,000 unit) tablet 50 mcg PO DAILY insulin aspart U-100 [Novolog FlexPen U-100 Insulin] 100 unit/mL (3 mL) insulin pen 52 unit subcut QACLUNCH insulin aspart U-100 [Novolog FlexPen U-100 Insulin] 100 unit/mL (3 mL) insulin pen 46 unit subcut QACDINNER acyclovir 400 mg tablet 400 mg PO BID ondansetron 8 mg tablet,disintegrating 8 mg PO Q8H PRN (Reason: nausea and vomiting) losartan 50 mg tablet 50 mg PO DAILY Qty: 90 2RF torsemide 10 mg tablet 10 mg PO QAM Qty: 30 2RF (DME) handicap placard See Rx Instructions .Route .MEDSUPPLY Qty: 1 0RF Rx Instructions: Duration for 5 years dexamethasone 4 mg tablet 8 mg PO .QTHURS lenalidomide 15 mg capsule 15 mg PO DAILY Rx Instructions: swallow whole with glass of water; do not open, crush, chew , break, or dissolve TAKE DAILY FOR 21 DAYS, THEN OFF 7 DAYS; REPEAT Jardiance 10 mg tablet 10 mg PO DAILY pantoprazole 40 mg tablet,delayed release (DR/EC) 40 mg PO QAM Qty: 60 2RF Trelegy Ellipta 200-62.5-25 mcg blister with device 1 inh inhalation DAILY albuterol sulfate [Ventolin HFA] 90 mcg/actuation HFA aerosol inhaler 2 puff INHALATION Q4H Qty: 18 11RF Rx Instructions: administer with spacer Primary Care Provider: Krishna Mcdaniel Referrals: Krishna Mcdaniel DO [Primary Care Provider] - Arvind Haynes MD [Med Staff - Active Staff] - 2 Days (Call first thing Tuesday to arrange further IV therapy.) Katey Booker DO [Med Staff - Active Staff] - As soon as possible Activity Restrictions/Additional Instructions: Read turn to ED Tuesday and Tuesday at approximately this time for repeat doses of ertapenem antibiotic Disposition Disposition: Home, Self Care What to do if you have Problems For any increased pain, shortness of breath, bleeding, nausea or vomiting, chestpain, or any unexpected problems, contact your Primary Care Provider. Call [facility] ([phone]) or report to the closest Emergency Room. Call 911 if necessary. 02/25/23 1601 <Electronically signed by Dru Mayfield MD> Cosigner Signature (if applicable): CC: Dr. Krishna Mcdaniel DO ~ Signed [facility] Work Phone: [phone] 545-445211-03-2023 Miscellaneous Notes* Telephone Encounter - Dangelo Lopez - 02/25/2023 11:00 AM EDT Thank you. Patient scheduled as requested. * Telephone Encounter - Cha Bautista RN - 02/25/2023 10:57 AM EDT Please double book. The other edus are [facility]'s not mine. Thank you. Cha Bautista RN * Telephone Encounter - Dangelo Lopez - 02/25/2023 10:55 AM EDT PSS Unable to cancel appts after arrival time. There is a scheduled appt at 10:30 on Tuesday, would you like this double booked? * Telephone Encounter - Cha Bautista RN - 02/25/2023 10:47 AM EDT Patient called. Please cancel today's chemo edu and add him on for a phone call at 10:30 am on Tuesday. Thank you. Cha Bautista RN * Telephone Encounter - Cha Bautista RN - 02/25/2023 10:33 AM EDT Patient is scheduled for chemo edu today at 10:30 but was instructed to go to the ED. PSS- can you call patient and see if he would be willing to change his appointment to next Tuesday at 10:30? Okay to double book since the other chemo edus are [facility]'s. Thank you. Cha Bautista RN * Telephone Encounter - Tabby Camarillo LPN - 02/25/2023 9:19 AM EDT Pt returned call. given information, pt aware to go to [facility] ER. OV and lab faxed. Tabby Camarillo LPN * Telephone Encounter - Tabby Camarillo LPN - 02/25/2023 8:[address] Booker, he spoke to [facility] ER this morning re this pt. He needs IV antibiotics due to his UA C&S result. Left message for pt to call back this AM. Please send call to me. I will fax resultsand OV to ER. Tabby Camarillo LPN * Telephone Encounter - Katey Booker DO - 02/24/2023 6:03 PM EDT Urine culture demonstrates Pseudomonas infection. Advised him to start ciprofloxacin. Rx sent. May have to change antibiotic based on final sensitivity report. Katey Booker DO documented in this encounter[facility]11-[facility]23 Miscellaneous Notes* Telephone Encounter - Cha Bautista RN - 02/23/2023 12:42 PM EDT Met with patient and introduced myself. Patient was given a folder with chemocare information, office contact information, thermometer, and additional chemotherapy resource handouts. Patient aware this nurse will review on scheduled appointment date. Cha Bautista RN documented in this encounter[facility]11-[facility]23 History of Present illness Narrative* Katey Booker DO - 02/23/2023 11:56 AM EDT Diagnosis: 1) IgA lambda multiple myeloma. HPI: The patient is a 72 yo male with PMH significant for DM (peripheral sensory neuropathy) CKD stage I, psoriasis, mixed hyperlipidemia, HTN (essential). He had a several year history of diabetes and established with Dr. Vega about 3 years prior to initial consultation here. A chemistry panel revealed an increase in the globulin fraction and therefore a serum protein electrophoresis and immunofixation was obtained. The patient was found to have a low level IgA lambda monoclonal protein with the M spike quantified at 0.7 g/dL. Urine protein electrophoresis was noted to have an atypical gamma without any quantification. The patient's serum chemistries were significant for creatinine of 1.0 mg/dL and a calcium of 8.6 mg/dL. The total protein was 7.8 g/dL with an albumin of 3.2 g/dL and a globulin fraction of 4.6 g/dL yielding an A/G ratio 0.7. Hepatocellular enzymes were normal. Sister diagnosed with retro-orbital lymphoma. Patient had daughter who at age 24 in 2003 from acute leukemia. Previous therapy: 1) VRd. Began 10/28. x2 cycles. Current therapy: 1) Vd. x1 cycle. He had onset of dyspnea during the first week. Went to the ED and had CTA of chest ruled out PE. Was using his home oxygen which previously he only used at night when he felt he needed it. Was told he has mild COPD and asthma on top of it. He went back to the ED at [facility] 12/16 for worsening dyspnea. He was diagnosed with acute on chronic heart failure. BNP was elevated on presentation. CTA of the chest showed no evidence of PE. He was noted to have new moderate bilateral effusions and bilateral compressive atelectasis. He has preserved ejection fraction. Initially treated with furosemide drip. 2D echo demonstrated an EF of 70%. Symptoms improved but he was noted to be anemic and had a positive stool sample for occult blood. Underwent EGD which demonstrated severe erosive gastritis and 2 bleeding angiodysplastic lesions in the stomach which were treated with heater probe. He also had duodenitis which was biopsied. He was treated with pantoprazole 40 mg twice daily. He was able to taper oxygen down to 2 L and was discharged in 12/20. Presents for ongoing oncologic management. Interim history: Was rotated from Lasix to torsemide. Working better. TURP 3 weeks ago today. Was given Bactrim BID x10 days but only took for 5 days due to diarrhea. Still has diarrhea about 3 times a day (less than at first). Not watery, loose. Pepto didn't help. B/L flank pain. Mild terminal dysuria. LLQ pain. Baseline neuropathy of the fingertips and feet. Numbness in right foot prevents him from driving because he can't feel the pedals. Most recent A1c was 8.5%. Feet get worse due to swelling of feet throughout the day. Symptoms of neuropathy better in the morning when no swelling--remains stable. PMH, medications and allergies personally reviewed by me today. Any changes documented in appropriate section. PHYSICAL EXAM: Vitals: Blood pressure 163/70, pulse 86, temperature 36.7 C (98.1 F), temperature source Temporal, weight (!) 136.5 kg (301 lb), SpO2 93 %. Well-appearing and in no acute distress. EYES: Sclerae are anicteric bilaterally. NECK: Supple. LYMPHATIC: There is no palpable cervical or supraclavicular adenopathy. RESPIRATORY: Inspiratory breath sounds are of normal intensity in all ambrose. No rales, wheezes or rhonchi. CARDIOVASCULAR: Rhythm is regular. ABDOMEN: The abdomen is nondistended. Extremities: No swelling or edema. SKIN: No jaundice or rash. No petechiae. NEUROLOGIC: turf grower II-XII are grossly intact. No focal motor weakness. LABS: IMAGING: Whole-body PET 09/06/2022 demonstrated scattered increase areas of FDG uptake in the thoracic and lumbar spine as well as the right iliac wing, posterior ilium and left acetabulum. Calculated maximum SUV was 4.2. This fulfilled quantitative criteria for viable osseous neoplasm. PATHOLOGY: BM biopsy 09/22/2022: A-C. Bone marrow, aspirate smear and core biopsy, with clot section: - Lambda monotypic plasma cell neoplasm involving ~20% of the marrow cellularity. - See comment. D. Peripheral blood smear: - Neutrophilic leukocytosis. - Normocytic anemia. - Mild thrombocytosis. FISH from 2019: RESULT: ABNORMAL hybridization pattern (see interpretation). Anomaly Result 1p32 (CDKN2C): Normal pattern 1q21 (CKS1B): Normal pattern +9 (CEP9): Normal pattern t(11;14)(q13;q32)(IGH/CCND1): Positive (78/100) 13q14 (RB1): Normal pattern 14q32 (IGH): Positive for IGH translocation (78/100) +15 (CEP15): Normal pattern 17p13 (TP53): Normal pattern INTERPRETATION: These findings demonstrate a plasma cell population with t(11;14)/IGH-CCND1. These findings are consistent with the presence of a plasma cell neoplasm. In plasma cell myeloma, these findings are associated with standard risk disease. Correlation with metaphase cytogenetic analysis is suggested. 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 -Initial bone marrow biopsy 20% PCs in the core specimen. -PET 2018 revealed no suspicious skeletal lesions. -PET 08/2022 indicated lesions defining multiple myeloma. -Bone marrow--still had about 20% PCs. -Standard risk disease by FISH panel 2018. -Significant baseline sensory neuropathy. -Myeloma frailty score is 1 (intermediate). -He is not a candidate for transplant given his other comorbid conditions. He said he wouldn't wantto undergo ASCT if medically cleared to do so. -Recent episode decompensated CHF (diastolic dysfunction). -Reviewed trend of monoclonal protein. Down about 30%. -Worsening neuropathy from bortezomib. -I recommended discontinuing bortezomib and starting daratumumab and continuing therapy with lenalidomide. I discussed the rationale (TERRANCE trial), logistics, potential risks (including but not limited to injection site/infusion reactions, cytopenias and the small potential for as a consequence of severe toxicity/complications of therapy), benefits and alternatives, as well as the personnel involved in the administration of daratumumab. I answered his questions in detail and he verbalized understanding and agreed with the recommended therapy. Please see the electronic consent document for details of doses and schedule. -Bilateral flank pain following recent TURP and abbreviated course of antibiotics. -Diarrhea came on during antibiotic use and has continued after discontinuation. Plan: -Begin lenalidomide and daratumumab in a week. -Continue acyclovir. -Resume ASA when restarts lenalidomide. -Dexamethasone 20 mg PO days 1, 8, 15 and 22 each cycle of lenalidomide. -Monthly monitoring of serum monoclonal protein and light chains. -CBC/CMP with each cycle. CBC on days 8, 15 and 22 each cycle. -Continue PPI since continuing dexamethasone. -Continue monitoring counts and iron levels (as indicated). -UA and culture today. If negative plain film thoracic and lumbar spine. -Check stool for C. difficile. -Advised him to continue follow-up with his PCP and refuse driver. -Continue monthly Zometa. Portions of this documentation were copied and pasted from previous office visit notes in order to provide a cohesive continuity of the history. The note has been reviewed and edited and updated as necessary. I spent a total of 40 minutes on the date of the service which included preparing to see the patient, [id number] patient care, completing clinical documentation, obtaining and/or reviewing separately obtained history, performing a medically appropriate examination, counseling and educating the pat ient/family/caregiver, ordering medications, tests, or procedures, communicating with other HCPs (not separately reported), and communicating results to the patient/family/caregiver. Katey Booker DO documented in this [facility]10-30-2023 Miscellaneous Notes* Telephone Encounter - Rachana Torres LPN - 02/21/2023 11:16 AM EDT [employer] auth # [id number]. Please send electronically. Rachana Torres LPN documented in this [facility]10-13-2023 History of Present illness Narrative* Alicia Keen RN - 02/04/2023 3:38 PM EDT patient explained that they have the IV Decadron ordered because he oral decadron given here is notcovered. Patient asked instead of getting an IV here can he take the decadron at home. Spoke with Dr Dias and he stated that it was ok to take the 10mg on Decadron orally when he gets home. patient and aware and verbalize an understanding. documented in this [facility]10-05-2023 History of Present illness Narrative* Zulay Rasmussen RN - 01/27/2023 1:16 PM EDT No changes to assessment from OV yesterday. Zulay Rasmussen RN documented in this [facility]10-04-2023 History of Present illness Narrative* Katey Booker DO - 01/26/2023 3:03 PM EDT Diagnosis: 1) IgA lambda multiple myeloma. HPI: The patient is a 72 yo male with PMH significant for DM (peripheral sensory neuropathy) CKD stage I, psoriasis, mixed hyperlipidemia, HTN (essential). He had a several year history of diabetes and established with Dr. Vega about 3 years prior to initial consultation here. A chemistry panel revealed an increase in the globulin fraction and therefore a serum protein electrophoresis and immunofixation was obtained. The patient was found to have a low level IgA lambda monoclonal protein with the M spike quantified at 0.7 g/dL. Urine protein electrophoresis was noted to have an atypical gamma without any quantification. The patient's serum chemistries were significant for creatinine of 1.0 mg/dL and a calcium of 8.6 mg/dL. The total protein was 7.8 g/dL with an albumin of 3.2 g/dL and a globulin fraction of 4.6 g/dL yielding an A/G ratio 0.7. Hepatocellular enzymes were normal. Sister diagnosed with retro-orbital lymphoma. Patient had daughter who at age 24 in 2003 from acute leukemia. Previous therapy: 1) VRd. Began 10/28. x2 cycles. Current therapy: 1) Vd. x1 cycle. He had onset of dyspnea during the first week. Went to the ED and had CTA of chest ruled out PE. Was using his home oxygen which previously he only used at night when he felt he needed it. Was told he has mild COPD and asthma on top of it. He went back to the ED at [facility] 12/16 for worsening dyspnea. He was diagnosed with acute on chronic heart failure. BNP was elevated on presentation. CTA of the chest showed no evidence of PE. He was noted to have new moderate bilateral effusions and bilateral compressive atelectasis. He has preserved ejection fraction. Initially treated with furosemide drip. 2D echo demonstrated an EF of 70%. Symptoms improved but he was noted to be anemic and had a positive stool sample for occult blood. Underwent EGD which demonstrated severe erosive gastritis and 2 bleeding angiodysplastic lesions in the stomach which were treated with heater probe. He also had duodenitis which was biopsied. He was treated with pantoprazole 40 mg twice daily. He was able to taper oxygen down to 2 L and was discharged in 12/20. Presents for ongoing oncologic management. Interim history: Was rotated from Lasix to torsemide. Working better. Had Mckeon replaced due to retention. Saw Dr. Haynes. Needs TURP. Stopped iron supplement and potassium due to stomach cramping and loose stools. Baseline neuropathy of the fingertips and feet. Numbness in right foot prevents him from driving because he can't feel the pedals. Most recent A1c was 8.5%. Feet get worse due to swelling of feet throughout the day. Symptoms of neuropathy better in the morning when no swelling--remains stable. PMH, medications and allergies personally reviewed by me today. Any changes documented in appropriate section. PHYSICAL EXAM: Vitals: Blood pressure 133/70, pulse 85, temperature 37.5 C (99.5 F), weight (!) 141.7 kg (312 lb 8oz), SpO2 89 %. Well-appearing and in no acute distress. EYES: Sclerae are anicteric bilaterally. NECK: Supple. LYMPHATIC: There is no palpable cervical or supraclavicular adenopathy. RESPIRATORY: Inspiratory breath sounds are of normal intensity in all ambrose. No rales, wheezes or rhonchi. CARDIOVASCULAR: Rhythm is regular. ABDOMEN: The abdomen is nondistended. Extremities: No swelling or edema. SKIN: No jaundice or rash. No petechiae. NEUROLOGIC: turf grower II-XII are grossly intact. No focal motor weakness. LABS: Component Latest Ref Rng & Units 01/26/2023 WBC 3.70 - 11.00 k/uL 11.01 (H) RBC 4.20 - 6.00 m/uL 3.50 (L) Hemoglobin 13.0 - 17.0 g/dL 9.3 (L) Hematocrit 39.0 - 51.0 % 30.2 (L) MCV 80.0 - 100.0 fL 86.3 MCH 26.0 - 34.0 pg 26.6 MCHC 30.5 - 36.0 g/dL 30.8 RDW-CV 11.5 - 15.0 % 19.9 (H) Platelet Count 150 - 400 k/uL 472 (H) MPV 9.0 - 12.7 fL 9.0 Neut% % 78.0 Abs Neut (ANC) 1.45 - 7.50 k/uL 8.60 (H) Lymph% % 10.5 Abs Lymph 1.00 - 4.00 k/uL 1.16 Radford% % 9.2 Abs Radford <0.87 k/uL 1.01 (H) Eosin% % 1.4 Abs Eosin <0.46 k/uL 0.15 Baso% % 0.4 Abs Baso <0.11 k/uL 0.04 Immature Gran % % 0.5 IMMATURE GRANS (ABS) <0.10 k/uL 0.05 NRBC /100 WBC 0.0 Absolute nRBC <0.01 k/uL <0.01 DTYPE Auto IMAGING: Whole-body PET 09/06/2022 demonstrated scattered increase areas of FDG uptake in the thoracic and lumbar spine as well as the right iliac wing, posterior ilium and left acetabulum. Calculated maximum SUV was 4.2. This fulfilled quantitative criteria for viable osseous neoplasm. PATHOLOGY: BM biopsy 09/22/2022: A-C. Bone marrow, aspirate smear and core biopsy, with clot section: - Lambda monotypic plasma cell neoplasm involving ~20% of the marrow cellularity. - See comment. D. Peripheral blood smear: - Neutrophilic leukocytosis. - Normocytic anemia. - Mild thrombocytosis. FISH from 2019: RESULT: ABNORMAL hybridization pattern (see interpretation). Anomaly Result 1p32 (CDKN2C): Normal pattern 1q21 (CKS1B): Normal pattern +9 (CEP9): Normal pattern t(11;14)(q13;q32)(IGH/CCND1): Positive (78/100) 13q14 (RB1): Normal pattern 14q32 (IGH): Positive for IGH translocation (78/100) +15 (CEP15): Normal pattern 17p13 (TP53): Normal pattern INTERPRETATION: These findings demonstrate a plasma cell population with t(11;14)/IGH-CCND1. These findings are consistent with the presence of a plasma cell neoplasm. In plasma cell myeloma, these findings are associated with standard risk disease. Correlation with metaphase cytogenetic analysis is suggested. 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 -Initial bone marrow biopsy 20% PCs in the core specimen. -PET 2018 revealed no suspicious skeletal lesions. -PET 08/2022 indicated lesions defining multiple myeloma. -Bone marrow--still had about 20% PCs. -Standard risk disease by FISH panel 2019. -Significant baseline sensory neuropathy. -Myeloma frailty score is 1 (intermediate). -He is not a candidate for transplant given his other comorbid conditions. He said he wouldn't wantto undergo ASCT if medically cleared to do so. -Recent episode decompensated CHF (diastolic dysfunction). -Reviewed CBC--hemoglobin lower. MCH low. Previous iron deficiency anemia. -He is very apprehensive about receiving cyclophosphamide. -Needs TURP. Plan: -Okay for cycle #4 with Vd. He will receive treatment on day 1 and 8 this cycle only due to scheduling of TURP. -Continue acyclovir. -Resume ASA when restarts lenalidomide #5. -Dexamethasone 20 mg PO days 1, 8, 15 and 22. -Continue PPI since will be on dexamethasone. -Continue monitoring counts and iron levels. -Advised him to continue follow-up with his PCP and refuse driver. -Influenza vaccination tomorrow. -Continue monthly Zometa. -Rx for bilateral knee-high compression stockings 20-30 mmHg. Portions of this documentation were copied and pasted from previous office visit notes in order to provide a cohesive continuity of the history. The note has been reviewed and edited and updated as necessary. I spent a total of 20 minutes on the date of the service which included [id number] patient care, completing clinical documentation, obtaining and/or reviewing separately obtained history, performing a medically appropriate examination, counseling and educating the patient/family/caregiver, ordering medications, tests, or procedures, communicating with other HCPs (not separately reported), and communicating results to the patient/family/caregiver. Katey Booker DO [facility] History of Present illness Narrative* Coreen Chavez RN - 01/13/2023 12:50 PM EDT Pt is taking potassium 20mEq one daily. Coreen Chavez RN [facility] Miscellaneous Notes* Telephone Encounter - Rubi Harris LPN - 01/11/2023 8:03 AM EDT Medication currently on hold Per Dr. Booker notes 12/30 May consider lower dose in future. Rubi Harris LPN [facility] Miscellaneous Notes* Addendum Note - Veronika Barajas RN - 01/06/2023 3:36 PM EDTAddended by: VERONIKA BARAJAS on: 01/06/2023 03:36 PM Modules accepted: Orders * Addendum Note - Veronika Barajas RN - 01/06/2023 2:53 PM EDTAddended by: VERONIKA BARAJAS on: 01/06/2023 02:53 PM Modules accepted: Orders [facility] History of Present illness Narrative* Kyra Nair RD - 01/04/2023 3:40 PM EDT Oncology Nutrition Therapy Reassessment RECOMMENDED MALNUTRITION DIAGNOSIS: NO MALNUTRITION IDENTIFIED Nutrition Diagnosis: Behavioral-Environmental: Food and nutrition related knowledge deficit, related to, lack of prior exposure to information , as evidenced by new medical diagnosis Nutrition Intervention: - aim for 3 meals per day - insulin dependant - incorporate lean sources of protein/plant based proteins at meals - Stay well hydrated - sip on fluids throughout the day - Monitor BG for changes during treatment Freestyle for BG Use bs/ salt rinse Use method for low blood sugar. Continue on low sodium diet Continue on Glucerna Have a carb/protein snack before bed if bg is <150. Nutrition Monitoring & Evaluation: PO intake Supplement tolerance Wt status Biochemical Markers Skin integrity Plan of care Patient Condition: Pt presents for nutrition counseling for multiple myeloma. Pt is currently pretreatment velcade. Ptdenies food allergies/intolerances. Per HPI: The patient is a 71 yo male with PMH significant for DM (peripheral sensory neuropathy) CKD stage I, psoriasis, mixed hyperlipidemia, HTN (essential).He had a several year history of diabetes and established with Dr. Vega about 3 years prior to initial consultation here I have confirmed and edited as necessary the hpi obtained by Dr. Booker on 09/24/22 and all reflect current status. Nutrition Assessment: Patient is at risk from a nutritional standpoint. Patient's symptoms are: Hyperglycemia - insulin dependant - BG- brett: 55-250 Sore mouth on tongue. - resolved No n/v/d/c Mild taste changes. Xerostomia - chewing gum Using bs/salt rinse twice per day. 01/04/23: received the mediterranean diet handout. Continues shortness of breath Swelling in feet and ankles has improved. Walking is limited. Readiness to Learn: Cognitive ability: Alert and oriented Motivation to learn: Eager Family support: High - Very involved in pt care Instruction provided to: Patient and Spouse Patient learns best by: Multiple Methods Factors affecting learning: None Physical limitations affecting learning: None Anthropometrics: HEIGHT/WEIGHT/BSA HEIGHT BODY SURFACE AREA WEIGHT 09/24/2022 2.69 323 lb 8 oz 10/28/2022 2.66 317 lb 8 oz 11/04/2022 2.66 317 lb 11/11/2022 2.67 319 lb 8 oz 11/24/2022 2.64 313 lb 8 oz 12/02/2022 2.65 314 lb 12/09/2022 2.67 319 lb 8 oz 12/22/2022 2.65 316 lb 12/30/2022 2.67 320 lb 01/04/2023 2.66 318 lb Estimated body mass index is 46.04 kg/m as calculated from the following: Height as of 02/17/22: 177 cm (5' 9.69). Weight as of an earlier encounter on 01/04/23: 144.2 kg (318 lb). Resting Metabolic Rate: 2232 Weight Change: no significant changes Dosing Weight: 146 kg Estimated kilocalorie needs: 7950-6518 kilocalories determined by 15-18 kcal/kg Estimated protein needs: 116-146 grams determined by 0.8-1.0 g/kg Dosing weight Estimated fluid needs: 2200 milliliters based on 1 mL per kcal Nutrition Focused Physical Exam: Unable to perform exam due to potential for patient discomfort (physical/emotional), will re-attempt during reassessment. Potential Signs of Inflammation: chronic condition Allergies: Penicillins Medications: Current Outpatient Medications Medication Sig Dispense Refill umeclidinium-vilanterol (ANORO ELLIPTA) 62.5-25 mcg/actuation inhaler Inhale 1 Puff as instructed once daily. losartan (COZAAR) 50 mg tablet Take 50 mg by mouth once daily. dexAMETHasone (DECADRON) 4 mg tablet Take 1 tablet by mouth one time a week. 5 tablets with breakfast on day 22 of each cycle pantop[address] (PROTONIX) 40 mg tablet Take 40 mg by mouth twice daily. furosemide (LASIX) 40 mg tablet Take 40 mg by mouth once daily. potassium chloride ER (KLOR-CON) 20 mEq tablet Take 20 mEq by mouth once daily. Irbesartan-hydroCHLOROthiazide 300-12.5 mg per tablet Take 1 tablet by mouth once daily. (Patient not taking: Reported on 12/30/2022) potassium chloride ER (KLOR-CON) 20 mEq tablet Take 1 tablet by mouth once daily. (Patient not taking: Reported on 12/22/2022) 30 tablet 2 lenalidomide (REVLIMID) 25 mg capsule TAKE 1 CAPSULE BY MOUTH 1 TIME A DAY FOR 21 DAYS ON THEN 7 DAYS OFF (Patient not taking: Reported on 12/30/2022) 21 capsule 0 OXYGEN, HOME THERAPY, by Nasal Cannula route as directed. OTC PRODUCT Take by mouth once daily. Prost-metto (Patient not taking: Reported on 12/22/2022) L.acidophilus-L.rhamnosus (PROBIOTIC) 15 billion cell capsule Take 1 capsule by mouth once daily. (Patient not taking: Reported on 12/22/2022) cholecalciferol (VITAMIN D-3) 50 mcg (2,000 unit) tablet Take 2,000 Units by mouth once daily. acyclovir (ZOVIRAX) 400 mg tablet Take 1 tablet by mouth twice daily. 180 tablet 3 omeprazole (PRILOSEC) 40 mg capsule Take 1 capsule by mouth once daily. (Patient not taking: Reported on 12/22/2022) 90 capsule 5 ondansetron (ZOFRAN) 8 mg tablet Take 1 tablet by mouth every 8 hours as needed for nausea/vomiting. 30 tablet 2 fluticasone/umeclidin/vilanter (TRELEGY ELLIPTA INHALATION) Inhale 1 Puff as instructed once daily. mecobalamin/L-mefolate/B6 phos (METANX ORAL) Take 1 tablet by mouth twice daily. OMEGA-3 FATTY ACIDS ORAL Take 1 capsule by mouth once daily. diltiazem CD (CARDIZEM CD, CARTIA XT) 180 mg 24 hr capsule Take 180 mg by mouth once daily. Magnesium Oxide-Mg Amino Acid Chelate 300 mg cap Take 250 mg by mouth once daily. B-complex with vitamin C (VITAMIN B COMPLEX-C ORAL) Take 1 tablet by mouth once daily. (Patient nottaking: Reported on 10/05/2022) CALCIUM CARBONATE/VITAMIN D3 (CALCIUM + D ORAL) Take 1 tablet by mouth once daily. albuterol HFA (PROVENTIL HFA, VENTOLIN HFA) 90 mcg/actuation inhaler Inhale 1 Puff as instructed asneeded. metFORMIN (GLUCOPHAGE) 1,000 mg tablet Take 1,000 mg by mouth twice daily with meals. aspirin, enteric coated (ASPIRIN, ENTERIC COATED) 81 mg EC tablet Take 81 mg by mouth once daily. atorvastatin (LIPITOR) 20 mg tablet Take 20 mg by mouth once daily. Multivitamin capsule Take 1 capsule by mouth once daily. (Patient not taking: Reported on 11/24/2022) insulin aspart U-100 (NOVOLOG U-100 INSULIN ASPART) 100 unit/mL soln Takes 34 units with breakfast,54 units at lunch, 45 units at dinner, 45 units before bed. insulin detemir U-100 (LEVEMIR) 100 unit/mL injection Inject 78 Units subcutaneously three times daily. Injects 78 units No current facility-administered medications for this visit. Need for Follow up: As needed Referred/Supervised by: Dr. Jhony ALAS Billing Type: Re-assess/15 min 3 units Billed Time: 45 minutes Signed by: Kyra Nair RD, LD documented [facility] History of Present illness Narrative* Katey Booker DO - 12/30/2022 10:27 AM EDT Diagnosis: 1) IgA lambda multiple myeloma. HPI: The patient is a 72 yo male with PMH significant for DM (peripheral sensory neuropathy) CKD stage I, psoriasis, mixed hyperlipidemia, HTN (essential). He had a several year history of diabetes and established with Dr. Vega about 3 years prior to initial consultation here. A chemistry panel revealed an increase in the globulin fraction and therefore a serum protein electrophoresis and immunofixation was obtained. The patient was found to have a low level IgA lambda monoclonal protein with the M spike quantified at 0.7 g/dL. Urine protein electrophoresis was noted to have an atypical gamma without any quantification. The patient's serum chemistries were significant for creatinine of 1.0 mg/dL and a calcium of 8.6 mg/dL. The total protein was 7.8 g/dL with an albumin of 3.2 g/dL and a globulin fraction of 4.6 g/dL yielding an A/G ratio 0.7. Hepatocellular enzymes were normal. Sister diagnosed with retro-orbital lymphoma. Patient had daughter who at age 24 in 2003 from acute leukemia. Previous therapy: 1) VRd. Began 10/28. x2 cycles. Current therapy: 1) Vd. He had onset of dyspnea during the first week. Went to the ED and had CTA of chest ruled out PE. Was using his home oxygen which previously he only used at night when he felt he needed it. Has appointment with his refuse driver today. Was told he has mild COPD and asthma on top of it. He went back to the ED at [facility] 12/16 for worsening dyspnea. He was diagnosed with acute on chronic heart failure. BNP was elevated on presentation. CTA of the chest showed no evidence of PE. He was noted to have new moderate bilateral effusions and bilateral compressive atelectasis. He has preserved ejection fraction. Initially treated with furosemide drip. 2D echo demonstrated an EF of 70%. Symptoms improved but he was noted to be anemic and had a positive stool sample for occult blood. Underwent EGD which demonstrated severe erosive gastritis and 2 bleeding angiodysplastic lesions in the stomach which were treated with heater probe. He also had duodenitis which was biopsied. He was treated with pantoprazole 40 mg twice daily. He was able to taper oxygen down to 2 L and was discharged in 12/20. Presents for ongoing oncologic management. Interim history: He was found to have urinary retention. Mckeon catheter placed. The retention was attributed to anesthesia for the EGD. Mckeon catheter removed this morning. Last Tuesday UA and culture demonstrated no evidence of infection. He continues on Lasix. Still having some swelling of the distal lower extremities. No change in oxygen requirement. He is on pantoprazole 40 mg twice daily. Taking iron supplement. Baseline neuropathy of the fingertips and feet. Numbness in right foot prevents him from driving because he can't feel the pedals. Most recent A1c was 8.5%. Feet get worse due to swelling of feet throughout the day. Symptoms of neuropathy better in the morning when no swelling--remains stable. PMH, medications and allergies personally reviewed by me today. Any changes documented in appropriate section. PHYSICAL EXAM: Vitals: Blood pressure 137/72, pulse 80, temperature 37.5 C (99.5 F), weight (!) 145.2 kg (320 lb),SpO2 91 %. Well-appearing and in no acute distress. EYES: Sclerae are anicteric bilaterally. NECK: Supple. LYMPHATIC: There is no palpable cervical or supraclavicular adenopathy. RESPIRATORY: Inspiratory breath sounds are of normal intensity in all ambrose. No rales, wheezes or rhonchi. CARDIOVASCULAR: Rhythm is regular. ABDOMEN: The abdomen is nondistended. No tenderness. Extremities: No swelling or edema. SKIN: No jaundice or rash. No petechiae. NEUROLOGIC: turf grower II-XII are grossly intact. No focal motor weakness. LABS: Component Latest Ref Rng & Units 12/30/2022 Protein, Total 6.3 - 8.0 g/dL 6.4 Albumin 3.9 - 4.9 g/dL 3.2 (L) Calcium 8.5 - 10.2 mg/dL 8.8 Bilirubin, Total 0.2 - 1.3 mg/dL 0.3 Alkaline Phosphatase 38 - 113 U/L 123 (H) AST 14 - 40 U/L 15 ALT 10 - 54 U/L 20 Glucose 74 - 99 mg/dL 268 (H) BUN 9 - 24 mg/dL 14 Creatinine 0.73 - 1.22 mg/dL 0.76 Sodium 136 - 144 mmol/L 134 (L) Potassium 3.7 - 5.1 mmol/L 4.1 Chloride 97 - 105 mmol/L 98 CO2 22 - 30 mmol/L 27 Anion Gap 9 - 18 mmol/L 9 eGFR >=60 mL/min/1.73m 97 WBC 3.70 - 11.00 k/uL 9.38 RBC 4.20 - 6.00 m/uL 3.01 (L) Hemoglobin 13.0 - 17.0 g/dL 7.7 (L) Hematocrit 39.0 - 51.0 % 24.9 (L) MCV 80.0 - 100.0 fL 82.7 MCH 26.0 - 34.0 pg 25.6 (L) MCHC 30.5 - 36.0 g/dL 30.9 RDW-CV 11.5 - 15.0 % 22.1 (H) Platelet Count 150 - 400 k/uL 321 MPV 9.0 - 12.7 fL 9.6 IMAGING: Whole-body PET 09/06/2022 demonstrated scattered increase areas of FDG uptake in the thoracic and lumbar spine as well as the right iliac wing, posterior ilium and left acetabulum. Calculated maximum SUV was 4.2. This fulfilled quantitative criteria for viable osseous neoplasm. PATHOLOGY: BM biopsy 09/22/2022: A-C. Bone marrow, aspirate smear and core biopsy, with clot section: - Lambda monotypic plasma cell neoplasm involving ~20% of the marrow cellularity. - See comment. D. Peripheral blood smear: - Neutrophilic leukocytosis. - Normocytic anemia. - Mild thrombocytosis. FISH from 2019: RESULT: ABNORMAL hybridization pattern (see interpretation). Anomaly Result 1p32 (CDKN2C): Normal pattern 1q21 (CKS1B): Normal pattern +9 (CEP9): Normal pattern t(11;14)(q13;q32)(IGH/CCND1): Positive (78/100) 13q14 (RB1): Normal pattern 14q32 (IGH): Positive for IGH translocation (78/100) +15 (CEP15): Normal pattern 17p13 (TP53): Normal pattern INTERPRETATION: These findings demonstrate a plasma cell population with t(11;14)/IGH-CCND1. These findings are consistent with the presence of a plasma cell neoplasm. In plasma cell myeloma, these findings are associated with standard risk disease. Correlation with metaphase cytogenetic analysis is suggested. 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 -Initial bone marrow biopsy 20% PCs in the core specimen. -PET 2018 revealed no suspicious skeletal lesions. -PET 08/2022 indicated lesions defining multiple myeloma. -Bone marrow--still had about 20% PCs. -Standard risk disease by FISH panel 2019. -Significant baseline sensory neuropathy. -Myeloma frailty score is 1 (intermediate). -Recommended therapy with VRd with potential to modify based on potential worsening of sensory neuropathy. -He is not a candidate for transplant given his other comorbid conditions. He said he wouldn't wantto undergo ASCT if medically cleared to do so. -Recent episode decompensated CHF (diastolic dysfunction). -Reviewed CBC--hemoglobin lower. MCH low. Previous iron deficiency anemia. -Hold Revlimid since may have contributed to CHF. -Planning to add cyclophosphamide with next cycle. Plan: -Hold lenalidomide for now but would consider using again at lower dose in the future. -Okay for cycle #3 with Vd today. -Continue acyclovir. -Stop ASA since off lenalidomide. -Decrease dexamethasone 20 mg PO days 1, 8, 15 and 22. -Continue PPI since will be on dexamethasone. -Check iron levels but start parenteral iron today. -Advised him to continue follow-up with his PCP and refuse driver. Portions of this documentation were copied and pasted from previous office visit notes in order to provide a cohesive continuity of the history. The note has been reviewed and edited and updated as necessary. I spent a total of 30 minutes on the date of the service which included preparing to see the patient, [id number] patient care, completing clinical documentation, obtaining and/or reviewing separately obtained history, performing a medically appropriate examination, counseling and educating the pat ient/family/caregiver, ordering medications, tests, or procedures, communicating with other HCPs (not separately reported), and communicating results to the patient/family/caregiver. Katey Booker DO documented in this encounter[facility] Miscellaneous Notes* Telephone Encounter - Adela Ho - 12/29/2022 5:05 PM EDT Patient has been scheduled. Adela Underwood * Telephone Encounter - Cha Bautista RN - 12/29/2022 4:[address] Booker, okay to add patient on for an OV. Patient would like to cancel tomorrow's treatment. Please add patient on for an OV with Dr. Booker at 10:10 tomorrow. Patient is aware and will be herefor labs at 9:30. Cha Bautista RN * Telephone Encounter - Cha Bautista RN - 12/29/2022 1:53 PM EDT Patient stated he has noticed an increase in urine output after taking lasix. Patient took lasix this morning and has had 1600 ml of output so far today. Patient has not been measuring his output butstated he thinks he emptied his bag with 800 ml around 3-4 times yesterday. Patient stated his ankles and feet do not look as swollen right now compared to yesterday. Patient is currently 318 lbs. Weight on 12/22 was 316 lbs in office. Patient had 82 ounces of fluidsyesterday. Patient is frustrated right now d/t poor quality of life. Patient stated he was able to do more prior to starting treatment and now he is carrying oxygen 24-7, has a mckeon in, and stated he doesn't want to go through breathing and urinary issues again. Patient also had concerns with adding a chemodrip in the future when he knows I don't want to do a chemo drip and patient stated he was inform ed there were other treatment options. Patient has an appointment with Skyler Louise CNP in Cardiology on 01/20/23. Cha Bautista RN * Telephone Encounter - Cha Bautista RN - 12/29/2022 11:18 AM EDT Patient stated he has an appointment with urology tomorrow AM to get the catheter removed that the ED placed for urinary retention. Urology office will schedule an office visit with provider for a future appointment since provider is currently on vacation. Patient stated he continues to have edema in the lower extremities. Patient stated he has his feet propped up all the time and the swelling is unchanged. Patient stated by the end of the day his feet are very sore and he has a difficult time putting his shoes on. Patient stated the SOB isn't as bad as long as he wears his oxygen continuously. Patient is concerned about continuing treatment d/t swelling and would like an appointment with Dr. Booker prior to having treatment. Patient has not followed up with his PCP yet d/t having an OV with his PCP later this month. Patient stated he is on lasix 40 mg once daily. Patient stated he has been trying to maintain a low sodium diet. See Kyra's n ote. Patient would like a call back later today after speaking to Dr. Booker regarding an OV. Cha Bautista RN * Telephone Encounter - Cha Bautista RN - 12/28/2022 5:12 PM EDT This nurse will call patient tomorrow. Dr. Booker- please advise on OV. Cha Bautista RN * Telephone Encounter - Kyra Nair RD - 12/28/2022 3:[address] Booker, Just wanted to make you aware that pt states he is continuing to have pitting edema in lower extremities and shortness of breath. He is concerned about side effects of treatment of velcade on . I discussed directed him to make last remodeler repairer appt, start a low sodium and monitor fluid intake with slight fluid restriction of 2100ml. Could he be fit in for an office visit? Cha, chery would like a call from you, if you have a chance. Kyra Parry documented in this encounterEast [facility]09-05-2023 History of Present illness Narrative* Kyra Nair RD - 12/28/2022 3:30 PM EDT Oncology Nutrition Therapy Reassessment RECOMMENDED MALNUTRITION DIAGNOSIS: NO MALNUTRITION IDENTIFIED Nutrition Diagnosis: Behavioral-Environmental: Food and nutrition related knowledge deficit, related to, lack of prior exposure to information , as evidenced by new medical diagnosis Nutrition Intervention: -Consider meal prepping prior to treatment. - aim for 3 meals per day - insulin dependant - incorporate lean sources of protein/plant based proteins at meals - Stay well hydrated - sip on fluids throughout the day - Monitor BG for changes during treatment D/C Vitamin C Freestyle for BG Use bs/ salt rinse Nutrition Monitoring & Evaluation: PO intake Supplement tolerance Wt status Biochemical Markers Skin integrity Plan of care Patient Condition: Pt presents for nutrition counseling for multiple myeloma. Pt is currently pretreatment velcade. Ptdenies food allergies/intolerances. Per HPI: The patient is a 71 yo male with PMH significant for DM (peripheral sensory neuropathy) CKD stage I, psoriasis, mixed hyperlipidemia, HTN (essential).He had a several year history of diabetes and established with Dr. Vega about 3 years prior to initial consultation here I have confirmed and edited as necessary the hpi obtained by Dr. Booker on 09/24/22 and all reflect current status. Nutrition Assessment: Patient is stable from a nutritional standpoint. Patient's symptoms are: Hyperglycemia - insulin dependant - continues to be high Has concerns about managing diabetes and nutrition impact symptoms during treatment. Sore mouth on tongue. No n/v/d/c Mild taste changes. Xerostomia - chewing gum Using bs/salt rinse twice per day. Hospitalization: CHF - lungs Retaining fluids: has urinary catheter O2 at home. States legs and feet are currently swollen. BG: up and down, 60 - 220's Steroids decreased. Next round of treatment starts . Appetite is good, early satiety - thirsty all the time (70oz). Using Mrs Dash season Readiness to Learn: Cognitive ability: Alert and oriented Motivation to learn: Eager Family support: High - Very involved in pt care Instruction provided to: Patient and Spouse Patient learns best by: Multiple Methods Factors affecting learning: None Physical limitations affecting learning: None Anthropometrics: HEIGHT/WEIGHT/BSA HEIGHT BODY SURFACE AREA WEIGHT 09/22/2022 2.68 323 lb 09/24/2022 2.69 323 lb 8 oz 10/28/2022 2.66 317 lb 8 oz 11/04/2022 2.66 317 lb 11/11/2022 2.67 319 lb 8 oz Estimated body mass index is 45.75 kg/m as calculated from the following: Height as of 02/17/22: 177 cm (5' 9.69). Weight as of 12/22/22: 143.3 kg (316 lb). Resting Metabolic Rate: 2232 Weight Change: no significant changes Dosing Weight: 146 kg Estimated kilocalorie needs: 1321-4016 kilocalories determined by 15-18 kcal/kg Estimated protein needs: 116-146 grams determined by 0.8-1.0 g/kg Dosing weight Estimated fluid needs: 2200 milliliters based on 1 mL per kcal Nutrition Focused Physical Exam: Unable to perform exam due to potential for patient discomfort (physical/emotional), will re-attempt during reassessment. Potential Signs of Inflammation: chronic condition Allergies: Penicillins Medications: Current Outpatient Medications Medication Sig Dispense Refill dexAMETHasone (DECADRON) 4 mg tablet Take 1 tablet by mouth one time a week. 5 tablets with breakfast on day 22 of each cycle pantop[address] (PROTONIX) 40 mg tablet Take 40 mg by mouth twice daily. furosemide (LASIX) 40 mg tablet Take 40 mg by mouth once daily. potassium chloride ER (KLOR-CON) 20 mEq tablet Take 20 mEq by mouth once daily. Irbesartan-hydroCHLOROthiazide 300-12.5 mg per tablet Take 1 tablet by mouth once daily. nitrofurantoin monohydrate and macrocrystal (MACROBID) 100 mg capsule Take 1 capsule by mouth twicedaily for 7 days. 14 capsule 0 potassium chloride ER (KLOR-CON) 20 mEq tablet Take 1 tablet by mouth once daily. (Patient not taking: Reported on 12/22/2022) 30 tablet 2 lenalidomide (REVLIMID) 25 mg capsule TAKE 1 CAPSULE BY MOUTH 1 TIME A DAY FOR 21 DAYS ON THEN 7 DAYS OFF 21 capsule 0 OXYGEN, HOME THERAPY, by Nasal Cannula route as directed. OTC PRODUCT Take by mouth once daily. Prost-metto (Patient not taking: Reported on 12/22/2022) L.acidophilus-L.rhamnosus (PROBIOTIC) 15 billion cell capsule Take 1 capsule by mouth once daily. (Patient not taking: Reported on 12/22/2022) cholecalciferol (VITAMIN D-3) 50 mcg (2,000 unit) tablet Take 2,000 Units by mouth once daily. acyclovir (ZOVIRAX) 400 mg tablet Take 1 tablet by mouth twice daily. 180 tablet 3 omeprazole (PRILOSEC) 40 mg capsule Take 1 capsule by mouth once daily. (Patient not taking: Reported on 12/22/2022) 90 capsule 5 ondansetron (ZOFRAN) 8 mg tablet Take 1 tablet by mouth every 8 hours as needed for nausea/vomiting. 30 tablet 2 fluticasone/umeclidin/vilanter (TRELEGY ELLIPTA INHALATION) Inhale 1 Puff as instructed once daily. mecobalamin/L-mefolate/B6 phos (METANX ORAL) Take 1 tablet by mouth twice daily. OMEGA-3 FATTY ACIDS ORAL Take 1 capsule by mouth once daily. diltiazem CD (CARDIZEM CD, CARTIA XT) 180 mg 24 hr capsule Take 180 mg by mouth once daily. Magnesium Oxide-Mg Amino Acid Chelate 300 mg cap Take 250 mg by mouth once daily. B-complex with vitamin C (VITAMIN B COMPLEX-C ORAL) Take 1 tablet by mouth once daily. (Patient nottaking: Reported on 10/05/2022) CALCIUM CARBONATE/VITAMIN D3 (CALCIUM + D ORAL) Take 1 tablet by mouth once daily. albuterol HFA (PROVENTIL HFA, VENTOLIN HFA) 90 mcg/actuation inhaler Inhale 1 Puff as instructed asneeded. metFORMIN (GLUCOPHAGE) 1,000 mg tablet Take 1,000 mg by mouth twice daily with meals. aspirin, enteric coated (ASPIRIN, ENTERIC COATED) 81 mg EC tablet Take 81 mg by mouth once daily. atorvastatin (LIPITOR) 20 mg tablet Take 20 mg by mouth once daily. Multivitamin capsule Take 1 capsule by mouth once daily. (Patient not taking: Reported on 11/24/2022) insulin aspart U-100 (NOVOLOG U-100 INSULIN ASPART) 100 unit/mL soln Takes 32 units with breakfast,54 units at lunch, 45 units at dinner, 45 units before bed. insulin detemir U-100 (LEVEMIR) 100 unit/mL injection Inject 78 Units subcutaneously three times daily. Injects 78 units No current facility-administered medications for this visit. Need for Follow up: As needed Referred/Supervised by: Dr. Masci MNT Billing Type: Re-assess/15 min 3 units Billed Time: 45 minutes Signed by: Kyra Nair RD, GITA documented in this encounterEast [facility]08-30-2023 Miscellaneous Notes* Telephone Encounter - Dangelo Lopez - 12/22/2022 2:12 PM EDT Thank you. Schedule updated. * Telephone Encounter - Katey Booker DO - 12/22/2022 1:14 PM EDT He will not start cyclophosphamide until next cycle. I placed the new chemotherapy orders as a future plan. Katey Booekr DO * Telephone Encounter - Dangelo Lopez - 12/22/2022 11:32 AM EDT Please update chemo orders for treatment tomorrow. Thank you. documented in this encounterEast [facility]08-30-2023 History of Present illness Narrative* Katey Booker DO - 12/22/2022 9:58 AM EDT Diagnosis: 1) IgA lambda multiple myeloma. HPI: The patient is a 72 yo male with PMH significant for DM (peripheral sensory neuropathy) CKD stage I, psoriasis, mixed hyperlipidemia, HTN (essential). He had a several year history of diabetes and established with Dr. Vega about 3 years prior to initial consultation here. A chemistry panel revealed an increase in the globulin fraction and therefore a serum protein electrophoresis and immunofixation was obtained. The patient was found to have a low level IgA lambda monoclonal protein with the M spike quantified at 0.7 g/dL. Urine protein electrophoresis was noted to have an atypical gamma without any quantification. The patient's serum chemistries were significant for creatinine of 1.0 mg/dL and a calcium of 8.6 mg/dL. The total protein was 7.8 g/dL with an albumin of 3.2 g/dL and a globulin fraction of 4.6 g/dL yielding an A/G ratio 0.7. Hepatocellular enzymes were normal. Sister diagnosed with retro-orbital lymphoma. Patient had daughter who at age 24 in 2003 from acute leukemia. Current therapy: 1) VRd. Began 10/28. He had onset of dyspnea during the first week. Went to the ED and had CTA of chest ruled out PE. Was using his home oxygen which previously he only used at night when he felt he needed it. Has appointment with his refuse driver today. Was told he has mild COPD and asthma on top of it. Presents for ongoing oncologic management. Interim history: Chronic unchanged back pain. He went back to the ED at [facility] 12/16 for worsening dyspnea. He was diagnosed with acute on chronic heart failure. BNP was elevated on presentation. CTA of the chest showed no evidence of PE. He was noted to have new moderate bilateral effusions and bilateral compressive atelectasis. He has preserved ejection fraction. Initially treated with furosemide drip. 2D echo demonstrated an EF of 70%. Symptoms improved but he was noted to be anemic and had a positive stool sample for occult blood. Underwent EGD which demonstrated severe erosive gastritis and 2 bleeding angiodysplastic lesions in the stomach which were treated with heater probe. He also had duodenitis which was biopsied. He was treated with pantoprazole 40 mg twice daily. He was able to taper oxygen down to 2 L and was discharged in 12/20. Last night he called with complaints of trouble urinating associated with dysuria, urinary frequency with small volume voids. No gross hematuria. Empirically started on Macrobid last evening. No h/o BPH. No fevers. He has baseline neuropathy of the fingertips and feet. Numbness in right foot prevents him from driving because he can't feel the pedals. Most recent A1c was 8.5%. Feet get worse due to swelling of feet throughout the day. Symptoms of neuropathy better in the morning when no swelling. All stable now. PMH, medications and allergies personally reviewed by me today. Any changes documented in appropriate section. PHYSICAL EXAM: Vitals: Blood pressure 119/55, pulse 70, temperature 37.1 C (98.7 F), weight (!) 143.3 kg (316 lb),SpO2 95 %. Well-appearing and in no acute distress. EYES: Sclerae are anicteric bilaterally. NECK: Supple. LYMPHATIC: There is no palpable cervical or supraclavicular adenopathy. RESPIRATORY: Inspiratory breath sounds are of normal intensity in all ambrose. No rales, wheezes or rhonchi. CARDIOVASCULAR: Rhythm is regular. ABDOMEN: The abdomen is nondistended. No tenderness. Extremities: No swelling or edema. SKIN: No jaundice or rash. No petechiae. NEUROLOGIC: turf grower II-XII are grossly intact. No focal motor weakness. LABS: Component Latest Ref Rng & Units 12/22/2022 WBC 3.70 - 11.00 k/uL 11.82 (H) RBC 4.20 - 6.00 m/uL 3.43 (L) Hemoglobin 13.0 - 17.0 g/dL 8.7 (L) Hematocrit 39.0 - 51.0 % 27.9 (L) MCV 80.0 - 100.0 fL 81.3 MCH 26.0 - 34.0 pg 25.4 (L) MCHC 30.5 - 36.0 g/dL 31.2 RDW-CV 11.5 - 15.0 % 20.3 (H) Platelet Count 150 - 400 k/uL 410 (H) MPV 9.0 - 12.7 fL 9.2 Neut% % 73.7 Abs Neut (ANC) 1.45 - 7.50 k/uL 8.72 (H) Lymph% % 8.0 Abs Lymph 1.00 - 4.00 k/uL 0.94 (L) Radford% % 10.3 Abs Radford <0.87 k/uL 1.22 (H) Eosin% % 6.7 Abs Eosin <0.46 k/uL 0.79 (H) Baso% % 0.7 Abs Baso <0.11 k/uL 0.08 Immature Gran % % 0.6 IMMATURE GRANS (ABS) <0.10 k/uL 0.07 NRBC /100 WBC 0.0 Absolute nRBC <0.01 k/uL <0.01 DTYPE Auto Protein, Total 6.3 - 8.0 g/dL 5.9 (L) Albumin 3.9 - 4.9 g/dL 3.1 (L) Calcium 8.5 - 10.2 mg/dL 7.9 (L) Bilirubin, Total 0.2 - 1.3 mg/dL 0.4 Alkaline Phosphatase 38 - 113 U/L 103 AST 14 - 40 U/L 14 ALT 10 - 54 U/L 22 Glucose 74 - 99 mg/dL 93 BUN 9 - 24 mg/dL 25 (H) Creatinine 0.73 - 1.22 mg/dL 0.93 Sodium 136 - 144 mmol/L 135 (L) Potassium 3.7 - 5.1 mmol/L 3.3 (L) Chloride 97 - 105 mmol/L 97 CO2 22 - 30 mmol/L 28 Anion Gap 9 - 18 mmol/L 10 eGFR >=60 mL/min/1.73m 88 IMAGING: Whole-body PET 09/06/2022 demonstrated scattered increase areas of FDG uptake in the thoracic and lumbar spine as well as the right iliac wing, posterior ilium and left acetabulum. Calculated maximum SUV was 4.2. This fulfilled quantitative criteria for viable osseous neoplasm. PATHOLOGY: BM biopsy 09/22/2022: A-C. Bone marrow, aspirate smear and core biopsy, with clot section: - Lambda monotypic plasma cell neoplasm involving ~20% of the marrow cellularity. - See comment. D. Peripheral blood smear: - Neutrophilic leukocytosis. - Normocytic anemia. - Mild thrombocytosis. FISH from 2019: RESULT: ABNORMAL hybridization pattern (see interpretation). Anomaly Result 1p32 (CDKN2C): Normal pattern 1q21 (CKS1B): Normal pattern +9 (CEP9): Normal pattern t(11;14)(q13;q32)(IGH/CCND1): Positive (78/100) 13q14 (RB1): Normal pattern 14q32 (IGH): Positive for IGH translocation (78/100) +15 (CEP15): Normal pattern 17p13 (TP53): Normal pattern INTERPRETATION: These findings demonstrate a plasma cell population with t(11;14)/IGH-CCND1. These findings are consistent with the presence of a plasma cell neoplasm. In plasma cell myeloma, these findings are associated with standard risk disease. Correlation with metaphase cytogenetic analysis is suggested. 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 -Initial bone marrow biopsy 20% PCs in the core specimen. -PET 2018 revealed no suspicious skeletal lesions. -PET 08/2022 indicated lesions defining multiple myeloma. -Bone marrow--still had about 20% PCs. -Standard risk disease by FISH panel 2018. -Significant baseline sensory neuropathy. -Myeloma frailty score is 1 (intermediate). -Recommended therapy with VRd with potential to modify based on potential worsening of sensory neuropathy. -We discussed duration of therapy. I do not think he will be a candidate for transplant given his other comorbid conditions. However, we will discuss referral to [facility] pending response to his first several cycles. -Recent episode decompensated CHF (diastolic dysfunction). -Reviewed CBC. -Hold Revlimid since may have contributed to CHF. -Add cyclophosphamide I discussed the rationale, logistics, potential risks (including but not limited to cytopenias, n/v, infectious issues and the small potential for as a consequence of severe toxicity/complications of therapy), benefits and alternatives, as well as the personnel involved in the administration of Cytoxan. I answered his questions in detail and he verbalized understandingand agreed with the recommended therapy. Please see the electronic consent document for details of doses and schedule. Plan: -Stop lenalidomide for now but would consider using again at lower dose in the future. -Okay for cycle #3 with Vd. -Continue acyclovir. -Continue low dose ASA. -Decrease dexamethasone 20 mg PO days 1, 8, 15 and 22. -We will change dexamethasone to 20 mg p.o. on days 1, 8, 15 and 22 with the third cycle due to exacerbation of blood sugars. -Continue PPI since will be on dex and ASA. -Advised him to continue follow-up with his PCP and refuse driver. Portions of this documentation were copied and pasted from previous office visit notes in order to provide a cohesive continuity of the history. The note has been reviewed and edited and updated as necessary. I spent a total of 30 minutes on the date of the service which included preparing to see the patient, [id number] patient care, completing clinical documentation, obtaining and/or reviewing separately obtained history, performing a medically appropriate examination, counseling and educating the pat ient/family/caregiver, ordering medications, tests, or procedures, and communicating with other HCPs (not separately reported). Katey Booker DO [facility] Miscellaneous Notes* Telephone Encounter - Cha Bautista RN - 12/21/2022 4:46 PM EDT Disposition: per RNTHI/ Dr. Booker, patient directed to: Manage at home. Provided instructions and will call back. Reviewed s/s of when to return to the hospital; fever, chills, or if he is not able to urinate at all. Patient stated understanding. Cha Bautista RN * Telephone Encounter - Katey Booker DO - 12/21/2022 4:39 PM EDT I signed the orders, but due to symptoms okay to start antibiotic tonight. Rx for Macrobid x7 days sent to [facility]. Katey Booker DO * Telephone Encounter - Cha Bautista RN - 12/21/2022 4:10 PM EDT DISCHARGE CALL BACK Today's date: December 21, 2022 Notified of Pt discharge by: patient notification Patient discharged on 12/20/2022 from [facility] to Home Primary Cancer Diagnosis: MM Admitting Diagnosis: SOB Discharge Summary/SBAR reviewed: Yes Handoff Discussed with Transitional Director Talent: N/A Psychosocial Risk Factors: None If patient discharged to SNF/Rehab Facility, phone call completed to reinforce discharge instructions and follow up: N/A Hospital Course Operations None Procedures 2-D Echocardiogram and EGD Summary of Care Provided Minutes Spent on Discharge: 45 Hospital Course: Patient is a 72-year-old male with a past medical history as outlined who was admitted through the ED on 12/16/2022 with a complaint of shortness of breath which have been going on for about 2 weeks and worsening. He had assisted lower extremity edema. He had oxygen that he used at home with 2 L with exertion. However he had been using it more regularly during the day. Patient was not on Lasix buthad been taking hydrochlorothiazide. On admission BNP was elevated at 373.7. Lactic acid was initially also elevated. He was saturating at 92% on [address] of the chest done showed no evidence of PE. He was also noted to have new moderate bilateral effusions and bilateral compressive atelectasis. He was admitted and managed for acute hypoxic respiratory failure due to acute on chronic heart failure preserved ejection fraction. Was placed on Lasix drip initially. Urine for strep and Legionella were negative. Respiratory panel was also negative. 2D echo done showed EF of 70%. His shortness of breath improved and was weaned down on oxygen. Patient was noted to be anemic and stool for oc cult blood was positive. He had EGD which showed severe erosive gastritis and 2 bleeding angiodysplastic lesions in the stomach which were treated with a heater probe. He also had duodenitis which was biopsied. He was placed on p.o. pantoprazole 40 mg twice daily. Shortness of breath improved and he was weaned down to 2 L of oxygen. He remained stable and was discharged home on 12/20/2022. He was discharged on p.o. Lasix as well as p.o. potassium as well as p.o. pantoprazole 40 mg twice daily. He is follow-up with his primary care doctor and is follow-up with GI. Patient seen and examined prior to discharge. He had no complaints and had an uneventful night. Review of systems otherwise negative. Potassium was 2.9 and was replaced and had come up to 3.6 prior to discharge. Call Disposition: See hospital course. Copied in note. Patient discharged yesterday from [facility]. Patient has new c/o 8/10 burning during urination in his penis and testicles and also cramping prior to voiding. Patient stated when he urinates the steam is trickling and last night he soaked a pad in his underwear. Patient stated symptoms started last night. Patient denies fever, chills, flank pain, pelvic pain, or hematuria. Patient is scheduled for an OV with Dr. Booker tomorrow. Patient is asking if we can check him for a UTI tomorrow. Patient does not [facility] or back to [facility]. Patient informed he will need to go back to [facility] ED if he develops a fever orchills and he stated understanding. Cha Bautista RN documented in [facility]08-29-[facility]23 Miscellaneous Notes* Telephone Encounter - Cha Bautista RN - 12/21/2022 8:51 AM EDT Patient never went to ED. Patient is scheduled for an OV tomorrow with Dr. Booker. Cha Bautista RN * Telephone Encounter - Cha Bautista RN - 12/17/2022 11:08 AM EDT No records for ED visit at [facility] yet. Cha Bautista RN * Telephone Encounter - Cha Bautista RN - 12/16/2022 3:59 PM EDT Patient informed of potassium prescription and reviewed prescriptions for use. Patient instructed to use hydrocortisone cream on the rash. Patient instructed to call if the rash gets worse while using hydrocortisone cream. Patient stated he has increased SOB x 1 week. Patient stated he is more SOB at rest and while talking he feels like he has to catch my breath. Patient stated he increased his oxygen to 3 L on his own. Pulse oximeter during the call was up and down between 88-91%. Patient feels like he is taking short breaths because it takes an effort to take a deep breath. Patient has increased swelling inhis feet/ankles, equal on both sides. Patient stated the swelling used to resolve by the time he got up in the morning but now, its half of what it was. Patient stated he had an OV with his refuse driver on 11/24/22 who recommended reducing salt in his diet and to call his PCP to discuss increasingthe Hyzaar; patient has an OV scheduled with his PCP at the end of December and was holding out f or that appointment. Patient denies cough, chest pain/pressure, irregular heartbeats, and rates fatigue 11/01. Spoke to Dr. Booker who advised an ED visit to rule out PE. Patient informed of Dr. Booker's response, stated understanding. Patient stated he has out of town guests over and would like to go tomorrow morning for evaluation. Patient strongly advised that he should get evaluated today. Patient stated he would rather wait until morning. Cha Bautista RN * Telephone Encounter - Cha Bautista RN - 12/16/2022 10:22 AM EDT Patient called stating with c/o an itchy rash that stared a few days ago. Patient stated the rash is along along my belt line, worse on the left side and under my arms and on my biceps and triceps. Patient stated yesterday the rash was really red and today it seems to be storekeeper engineering in color. Patient stated the rash along the belt line is more raised and looks like little welts. The area on his arms is flat. Patient stated the rash is not painful, no pus/drainage/blisters. Patient denies fever, chills, new body aches/pain, or using new lotions/soaps/detergents/medications/supplements. Patient stated he started drinking a new stefanie flavored tea but that is about it. Patient is currently on his off week from revlimid and has an OV with Dr. Booker 12/22/22. Patient also asked for his potassium results; 3.5 on 12/09. Cha Bautista RN documented in this encounter[facility]08-27-2023 Progress note Author Preston Carson [facility] December 19, 2022 9:29am Note Date/Time December 19, 2022 7: 50am [facility] Medical Records Department [address] [place] [address] Progress Note - Hospitalist 12/19/22 0747 MR#: [id number] Acct: [id number] Name: CYN JAMES JrShannon Rep #:[id number] : 1950 72 From: Preston Carson MD PCP: Dr. Krishna Mcdaniel, DO Status:AD M IN Location: [place] [id number]- [id number] Reason for Visit Reason for Visit: Diagnoses Hypo-osmolality and hyponatremia (12/16/22) Acidosis, unspecified (12/16/22) Acute on chronic diastolic (congestive) heart failure (12/16/22) Pleural effusion, not elsewhere classified (12/16/22) Acute respiratory failure with hypoxia (12/16/22) Rash and other nonspecific skin eruption (12/16/22) Objective Data Objective Data Vital Signs: Vital Signs Temp Pulse Resp BP Pulse Ox O2 Del Method O2 Flow Rate 97.7 F L 67 18 148/51 H 97 Nasal Cannula 4 12/19/22 07:43 12/19/22 07:43 12/19/22 07:43 12/19/22 07:43 12/19/22 07:43 12/19/22 07:43 12/19/22 07:43 Oxygen Flow Rate (L/min) 4 Oxygen Delivery Method Nasal Cannula Weight: 146.1 kg Body Mass Index (BMI) 47.5 Intake & Output: Intake and Output for Last 24 Hours 12/17/22 12/18/22 12/19/22 23:59 23:59 23:59 Intake Total 1690 / 1690 452.5 / 452.5 220 / 220 Output Total 6075 / 6875 4800 / 4800 600 / 600 Balance -4385 / -5185 -4347.5 / -4347.5 -380 / -380 Lab / Micro Data 12/18/22 07:30 12/18/22 07:30 Labs: Laboratory Results - last 24 hr 12/18/22 07:30: WBC 11.2 H, RBC 3.45 L, Hgb 8.6 L, Hct 27.7 L, MCV 80.3, MCH 24.9 L, MCHC 31.0 L, RDW Std Deviation 59.6 H, RDW Coeff of Kavya 21.0 H, Plt Count 410, MPV 11.4, Immature Gran % (Auto) 1.000 H, Neut % (Auto) 77.1 H, Lymph% (Auto) 5.7 L, [place]ford % (Auto) 15.6 H, Eos % (Auto) 0.4, Baso % (Auto) 0.2, Absolute Neuts (auto) 8.6 H, Absolute Lymphs (auto) 0.64 L, Nucleated RBC % 0, Differential Comment SCANNED, Diff Path Review May foll, Hypochromasia 1+, Poikilocytosis 1+, Anisocytosis 2+, Microcytosis 1+, Macrocytosis 1+, Ovalocytes1+, Sodium 136, Potassium 3.2 L, Chloride 94 L, Carbon Dioxide 32.0, Anion Gap 10, BUN 32 H, Creatinine 1.04, Estim Creat Clear Calc 66.09, Est GFR (MDRD) Af Amer 91, Est GFR (MDRD) Non-Af 75, BUN/Creatinine Ratio 30.8 H, Glucose 43 L*, Calcium 7.5 L, Phosphorus 5.2 H, Magnesium 1.9 Micro: Microbiology 12/17/22 Unknown Stool Stool Occult Blood (NANCY) - Final Occult Blood Positive 12/16/22 22:38 Mucosa - Nose Respiratory Panel (PCR) - Final 12/16/22 22:36 Urine, Clean Catch Legionella Antigen - Final 12/16/22 22:36 Urine, Clean Catch Streptococcus pneumoniae Antigen (M - Final Physical Exam Narrative GENERAL: cooperative HEENT: Atraumatic; normocephalic EYES; Anicteric, Normal Conjunctiva NECK; supple, normal thyroid, RESPIRATORY: Diminished to auscultation CARDIOVASCULAR: Regular S1 S2, GI: soft, normoactive bowel sounds, : No Renal angle tenderness; EXTREMITIES: edema, no clubbing, MUSCULOSKELETAL: no muscle wasting NEURO: Awake; no lateralizing signs. SKIN: No Rash PSYCH; Flat affect Assessment & Plan Assessment/Plan (1) Acute on chronic heart failure with preserved ejection fraction: PLAN: Plan Patient is a 72-year-old male admitted with progressive shortness of breath 1. Acute hypoxia ? Secondary to acute on chronic congestive heart failure with preserved ejectionfraction, pulmonary hypertension, COPD as well as obstructive sleep apnea admitted to the regular nursing floor with treatment of underlying clinical condition with supplemental oxygen titrated to keep saturation greater than 90 2. Acute on chronic congestive heart failure with preserved ejection fraction ? Patient admitted to a monitored bed started on Lasix drip placed on fluid restriction, low-sodium diet, daily weights. Patient progressed being monitoredwith daily basic metabolic panel ? 12/18/2022; 2D echo demonstrated EF of 70%. Patient in negative fluid balance of 3.2 L. ? 12/20/2019; patient Lasix drip discontinued. 3. Bilateral pleural effusion ? Secondary to above do expect improvement with diuresis 4. Lactic acidosis ? Secondary to increased work of breathing no evidence of infection or sepsis atthis point 5. Hyponatremia ? Secondary to fluid overload status as well as patient being on HCTZ. Do expect improvement with diuresis ? 12/18/2022 sodium levels up to 136 6. Class III obesity with BMI of 48.1 ? Complicating care weight loss advised 7. Anemia - Secondary to chronic disorder monitoring H&H and transfuse if patient becomes symptomatic or hemoglobin falls below 7 ? Slight drop in hemoglobin level to 8.6. Patient was noted to be guaiac positive. Consult placed to GI ?12/19/2022; patient underwent EGD by Dr. Cid recommendations and Findings dakotah -Impression: - Normal esophagus. - Erythematous mucosa in the gastric body. Biopsied. - Two bleeding angiodysplastic lesions in the stomach. Treated with a heater probe. - Duodenitis. Biopsied. Recommendation: - [facility] to [facility]. - Resume regular diet. - Use Protonix (pantoprazole) 40 mg PO BID. - Check celiac disease labs - Continue present medications. 8. Dyslipidemia -Patient is on statin therapy, continued at home dose 9. Diabetes mellitus type 2 ? Patient is on long-acting insulin did continue home doses in addition to Accu- Cheks before meals and at bedtime with sliding scale coverage ? 12/18/2022. Patient did develop hypoglycemia after he was kept NPO. Subsequent adjustment made to his insulin regimen both long and short acting 10. Multiple myeloma ? Patient is on lenalidomide; outpatient follow-up with Dr. Booker 11. Obstructive sleep apnea ? Consistent use of CPAP encouraged 12. GERD ? On PPI 13. Vitamin B-12 deficiency ? Patient is on home supplement did continue 14. COPD ? Aerosol treatments as needed 15. DVT prophylaxis ? Lovenox 40 mg SC every 12 ? 12/19/2022 Lovenox discontinued given above findings 16. Hypokalemia -Corrected per protocol Time spent in the patient's overall evaluation,decision-making process, review of diagnostic data, adjustment of management, discussion with other providers, nursing nursing and ancillary staff involved in patient's care documentation, 50Minutes Charges/Coding Visit Charges Inpatient E&M: 27130 Subs Hosp L3 12/19/22 0929 <Electronically signed by Preston Carson MD> Cosigner Signature (if applicable): CC: ~ Signed [facility] Work Phone: [phone] 490-585608-27-2023 Consult note Author Dudley Friend [facility] December 19, 2022 8:08am Note Date/Time December 19, 2022 8: 08am [facility] Medical Records Department [address] [place] [address] Consultation - GI 12/18/22 0803 MR#: [id number] Acct: [id number] Name: CYN JAMES Jr. Rep #:[id number] : 1950 72 From: Dudley Cid DO PCP: Dr. Krishna Mcdaniel, DO Status:AD M IN Location: [facility] [id number] HPI Consult Data Date of Consult: 12/18/22 HPI Narrative Reason for Consultation: Anemia HPI Narrative: CYN JAMES, is a 72 M who presented to [facility] with shortness of breath. The patient has had progressive dyspnea and lower extremity edema that has progressively gotten worse over the last 2 weeks. He has oxygen to utilize as needed at home , but typically does not require oxygen. He does wear CPAP at night and states that this helps his breathing. He also reports that he has hadincreased lower extremity edema that is worsening. Currently he has pitting edema up to his knees. He is being treated for myeloma at baseline and follows with Dr. Booker. Vital signs on presentation showed a temperature of 98, blood pressure 167/49, respiratory rate was 22 and oxygen saturation was 92% on 5 L nasal cannula. Pulse ox on room air was not obtained however as noted above he does not typically wear oxygen. His CBC shows a acute on chronic anemia with a drop in his hemoglobin from 11.2-9.0 but normal white count and normal platelet count. He does have a bit of a left shift. His sodium is low at 128. BUN is 28 and serum creatinine is 1.14. His serum creatinine is very slightly above his baseline of 0.7-1.0. His glucose was 224. Initial troponin was 30. His BNP was markedly elevated at 373.7. Procalcitonin was low at 0.06. With his history of myeloma a CTA of his chest was performed and showed no central PE however contrast bolus was not great and peripheral emboli cannot be excluded. He also had new moderate bilateral effusions and bilateral compressive atelectasis. I was consulted due to his decrease in hemoglobin along with his elevated BUN tocreatinine ratio ,possibly indicating upper GI bleed. [facility] Medical History Abnormal electrocardiogram Atherosclerotic heart disease of [place] coronary artery without angina pectoris Chest pain Chicken pox COPD (chronic obstructive pulmonary disease) RUIZ (dyspnea on exertion) Erectile dysfunction Essential hypertension History of left heart catheterization (LHC) (~01/27/11) Measles Mixed hyperlipidemia Multiple myeloma Murmur Obesity CONCHA (obstructive sleep apnea) Palpitations Smoldering multiple myeloma SOB (shortness of breath) Type 2 diabetes mellitus Home Medications aspirin 81 mg tablet,delayed release (Adult Aspirin Regimen) 81 mg PO QDAY 08/19/17 [History Last Taken 06/17/20 10:00] atorvastatin 20 mg tablet (Lipitor) 20 mg PO QDAY 08/19/17 [History Last Taken 06/17/20 10:00] calcium carbonate 600 mg-vitamin D3 5 mcg (200 unit) tablet (Calcium 600 with Vitamin D3) 1 tab PO QDAY 08/19/17 [History Last Taken 06/17/20 10:00] magnesium 250 mg tablet 250 mg PO QDAY 08/19/17 [History Last Taken 06/17/20 10:00] metformin 1,000 mg tablet (Glucophage) 1,000 mg PO BID 08/19/17 [History Last Taken 06/17/20] omega-3 fatty acids 1,000 mg capsule 1,000 mg PO QDAY 08/19/17 [History Last Taken 06/17/20 10:00] levomefolate Ca 3 mg-B6 35 mg-meB12 2 mg-algal oil 90.314 mg capsule (Metanx (algal oil)) 1 cap PO DAILY 12/16/17 [History Last Taken 06/17/20] cholecalciferol (vitamin D3) 50 mcg (2,000 unit) tablet 50 mcg PO DAILY 05/14/22[History Last Taken Unknown] diltiazem HCl 180 mg capsule,extended release 24 hr 180 mg PO DAILY 05/14/22 [History Last Taken Unknown] hydrochlorothiazide 25 mg tablet 25 mg PO DAILY 05/14/22 [History Last Taken Unknown] dexamethasone 4 mg tablet 40 mg PO .weekly 10/12/22 [History Last Taken Unknown] acyclovir 400 mg tablet 400 mg PO BID 10/14/22 [History Last Taken Unknown] insulin aspart U-100 100 unit/mL (3 mL) subcutaneous pen (Novolog FlexPen U-100 Insulin aspart) 45 unit subcut QACDINNER 10/14/22 [History Last Taken Unknown] insulin aspart U-100 100 unit/mL (3 mL) subcutaneous pen (Novolog FlexPen U-100 Insulin aspart) 54 unit subcut QACLUNCH 10/14/22 [History Last Taken Unknown] insulin aspart U-100 [Novolog FlexPen U-100 Insulin] 34 unit subcut QACBREAK 10/14/22 [History Last Taken Unknown] insulin detemir U-100 [Levemir FlexTouch U100 Insulin] 78 unit subcut TIDWMEAL 10/14/22 [History Last Taken Unknown] irbesartan 300 mg-hydrochlorothiazide 12.5 mg tablet 1 tab PO DAILY 10/14/22 [History Last Taken Unknown] lenalidomide 25 mg capsule 25 mg PO .COMPLEX 10/14/22 [History Last Taken Unknown] omeprazole 40 mg capsule,delayed release 40 mg PO DAILY PRN nause 10/14/22 [History Last Taken Unknown] ondansetron 8 mg disintegrating tablet 8 mg PO Q8H PRN nausea and vomiting 10/14/22 [History Last Taken Unknown] albuterol sulfate 90 mcg/actuation aerosol inhaler (Ventolin HFA) 2 puff inhalation Q4H #18 grams 12/07/22 [Rx Last Taken Unknown] umeclidinium 62.5 mcg-vilanterol 25 mcg/actuation powdr for inhalation (Anoro Ellipta) 1 inh inhalation QDAY #60 ea 12/09/22 [Rx Last Taken Unknown] ferrous sulfate 550 mg PO .every other day hgb 12/17/22 [History Last Taken Unknown] insulin aspart U-100 100 unit/mL subcutaneous solution (Novolog U-100 Insulin aspart) 45 unit subcut QHS diabetes 12/17/22 [History Last Taken Unknown] Allergy/AdvReac Type Severity Reaction Status Date / Time Penicillins Allergy Mild Rash Verified 12/16/22 18:21 Family History Father Myocardial infarction Mother Breast cancer Surgical History Bone spur removal History of cataract extraction Social History Smoking Status: Former smoker quit date: 04/25/02 pack-years: 31 alcohol intake: current alcohol intake frequency: holidays/special occasions only substance use type: does not use caffeine: Yes Type: coffee Number of servings: 5 ROS Constitutional Constitutional: Denies anorexia, change in weight, chills, fatigue, fever(s), malaise, night sweats, weakness or other Eyes Eyes: Denies blurry vision, change in eye color, change in vision, discharge from eye(s), double vision, erythema, eye pain, loss of vision or other ENT HEENT: Denies abnormal hearing, dysphagia, ear pain, epistaxis, headache(s), hearing loss, nasal congestion, nasal discharge, post nasal drip, sinus pressure, sore throat or other Cardiovascular Cardiovascular: Reports dyspnea on exertion and edema; Denies chest pain, claudication, lightheadedness, orthopnea, palpitations, paroxysmal nocturnal dyspnea, rapid heart rate, syncope or other Respiratory/Chest Respiratory/Chest: Reports dyspnea, shortness of breath at rest and shortness ofbreath with exertion; Denies cough, excessive phlegm production, hemoptysis, productive cough, wheezing or other Gastrointestinal Gastrointestinal: Denies abdominal pain, coffee ground emesis, constipation, diarrhea, dyspepsia, hematemesis, hematochezia, loose stools, melena, nausea, vomiting or other Genitourinary Genitourinary: Denies burning urination, difficulty urinating, dysuria, hematuria, nocturia, urinary frequency, urinary hesitancy, urinary incontinence,urinary urgency or other Musculoskeletal Musculoskeletal: Denies arthralgias, back pain, joint pain, joint stiffness, joint swelling, myalgias, neck pain or other Neurologic Neurologic: Denies abnormal gait, abnormal speech, confusion, disequilibrium, dizziness, focal weakness, headache(s), numbness, paresthesias, seizure-like activity, seizures, syncope, tingling, tremor(s) or other Psychiatric Psychiatric: Denies anxiety, depression, homicidal ideation, suicidal ideation or other Endocrine Endocrinology: Denies change in body appearance, cold intolerance, excessive sweating, heat intolerance, polydipsia, polyuria or other Hematologic/Lymphatic Hematologic/Lymphatic: Denies anemia, easy bleeding, easy bruising, lymphadenopathy or other Allergic/Immunologic Allergic/Immunologic: Denies rhinitis, hives, eczemia, asthma or other Physical Exam Narrative GENERAL: cooperative HEENT: Atraumatic; normocephalic EYES; Anicteric, Normal Conjunctiva NECK; supple, normal thyroid, RESPIRATORY: Diminished to auscultation CARDIOVASCULAR: Regular S1 S2, GI: soft, normoactive bowel sounds, : No Renal angle tenderness; EXTREMITIES: edema, no clubbing, MUSCULOSKELETAL: no muscle wasting NEURO: Awake; no lateralizing signs. SKIN: No Rash PSYCH; Flat affect Lab / Micro Data 12/18/22 07:30 12/18/22 07:30 Labs: Laboratory Results - last 24 hr 12/18/22 07:30: WBC 11.2 H, RBC 3.45 L, Hgb 8.6 L, Hct 27.7 L, MCV 80.3, MCH 24.9 L, MCHC 31.0 L, RDW Std Deviation 59.6 H, RDW Coeff of Kavya 21.0 H, Plt Count 410, MPV 11.4, Immature Gran % (Auto) 1.000 H, Neut % (Auto) 77.1 H, Lymph% (Auto) 5.7 L, Radford % (Auto) 15.6 H, Eos % (Auto) 0.4, Baso % (Auto) 0.2, Absolute Neuts (auto) 8.6 H, Absolute Lymphs (auto) 0.64 L, Nucleated RBC % 0, Differential Comment SCANNED, Diff Path Review May foll, Hypochromasia 1+, Poikilocytosis 1+, Anisocytosis 2+, Microcytosis 1+, Macrocytosis 1+, Ovalocytes1+, Sodium 136, Potassium 3.2 L, Chloride 94 L, Carbon Dioxide 32.0, Anion Gap 10, BUN 32 H, Creatinine 1.04, Estim Creat Clear Calc 66.09, Est GFR (MDRD) Af Amer 91, Est GFR (MDRD) Non-Af 75, BUN/Creatinine Ratio 30.8 H, Glucose 43 L*, Calcium 7.5 L, Phosphorus 5.2 H, Magnesium 1.9 Assessment & Plan Assessment/Plan (1) Acute on chronic anemia: PLAN: Differential diagnosis was acute on chronic anemia could be worsening of his multiple myeloma, acute GI bleed, chronic GI, bone marrow suppression. He does have imaging possibly suggesting nonalcoholic steatohepatitis which could result in angiodysplasia, angiectasia and gastric antral vascular ectasia. He would benefit from an upper endoscopy now to be stable from a respiratory standpoint currently not requiring any supplemental oxygen. He was explained alternatives, risk, benefits include not withstanding bleeding, infection, sepsis, perforation, need for emergent surgery . He will have an ASA of 3. Charges/Coding Visit Charges Inpatient E&M: 36606 Init Hosp L3 12/19/22 0808 <Electronically signed by Dudley Friend > Cosigner Signature (if applicable): CC: Dr. Krishna Mcdaniel, ; Dr. Fernanda Staples DO~ Signed [facility] Work Phone: 1(435) 236-879608-27-2023 Procedure [facility] 12-19-2022 Procedure [facility]08-26-2023 Progress note Author Preston Carson [facility] December 18, 2022 11:41am Note Date/Time December 18, 2022 8: 29am [facility] Medical Records Department [address] [place] [address] Progress Note - Hospitalist 12/18/22828 MR#: [id number] Acct: [id number] Name: CYN JAMES JrShannon Rep #:[id number] : 1950 72 From: Preston Carson MD PCP: Dr. Krishna Mcdaniel DO Status:AD M IN Location: [place] [address]- Reason for Visit Reason for Visit: Diagnoses Hypo-osmolality and hyponatremia (12/16/22) Acidosis, unspecified (12/16/22) Acute on chronic diastolic (congestive) heart failure (12/16/22) Pleural effusion, not elsewhere classified (12/16/22) Acute respiratory failure with hypoxia (12/16/22) Rash and other nonspecific skin eruption (12/16/22) Subjective Subjective The echo demonstrated EF of 70%. Patient had a slight drop in hemoglobin level. Was apparently guaiac positive. Potassium down to 3.2. Patient had an episodeof hypoglycemia this a.m. after he was kept n.p.o. Objective Data Objective Data Vital Signs: Vital Signs Temp Pulse Resp BP Pulse Ox O2 Del Method O2 Flow Rate 97.6 F L 80 18 156/66 H 94 Nasal Cannula 4 12/18/22 03:00 12/18/22 07:32 12/18/22 07:32 12/18/22 03:00 12/18/22 07:32 12/18/22 07:32 12/18/22 07:32 Oxygen Flow Rate (L/min) 4 Oxygen Delivery Method Nasal Cannula Weight: 146.1 kg Body Mass Index (BMI) 47.5 Intake & Output: Intake and Output for Last 24 Hours 12/16/22 12/17/22 12/18/22 23:59 23:59 23:59 Intake Total 1690 / 1690 0 / 0 Output Total 6075 / 6875 800 / 800 Balance -4385 / -5185 -800 / -800 Lab / Micro Data 12/18/22 07:30 12/18/22 07:30 Labs: Laboratory Results - last 24 hr 12/17/22 01:54: POC Glucose 282 H 12/17/22 08:03: POC Glucose 273 H 12/18/22 07:30: WBC 11.2 H, RBC 3.45 L, Hgb 8.6 L, Hct 27.7 L, MCV 80.3, MCH 24.9 L, MCHC 31.0 L, RDW Std Deviation 59.6 H, RDW Coeff of Kavya 21.0 H, Plt Count 410, MPV 11.4, Immature Gran % (Auto) 1.000 H, Neut % (Auto) 77.1 H, Lymph% (Auto) 5.7 L, Radford % (Auto) 15.6 H, Eos % (Auto) 0.4, Baso % (Auto) 0.2, Absolute Neuts (auto) 8.6 H, Absolute Lymphs (auto) 0.64 L, Nucleated RBC % 0 Micro: Microbiology 12/17/22 Unknown Stool Stool Occult Blood (NANCY) - Final Occult Blood Positive 12/16/22 22:38 Mucosa - Nose Respiratory Panel (PCR) - Final 12/16/22 22:36 Urine, Clean Catch Legionella Antigen - Final 12/16/22 22:36 Urine, Clean Catch Streptococcus pneumoniae Antigen (M - Final Radiography Diagnostic Testing: Radiology Impression Echocardiogram 12/16/22 23:27 Interpretation Summary The left ventricular ejection fraction is 70 %. Diastolic function is indeterminate. The left atrium is severely enlarged. Mild-Moderate (1-2+) mitral valve insufficiency. Right ventricular systolic pressure estimated to be 53 mmHg. Mild aortic stenosis. The study was technically difficult. Ordering Physician: Fernanda Staples Performed By: Reinier Rey RCS Physical Exam Narrative GENERAL: cooperative HEENT: Atraumatic; normocephalic EYES; Anicteric, Normal Conjunctiva NECK; supple, normal thyroid, RESPIRATORY: Diminished to auscultation CARDIOVASCULAR: Regular S1 S2, GI: soft, normoactive bowel sounds, : No Renal angle tenderness; EXTREMITIES: edema, no clubbing, MUSCULOSKELETAL: no muscle wasting NEURO: Awake; no lateralizing signs. SKIN: No Rash PSYCH; Flat affect Const alert, oriented x3 and no apparent distress Constitutional Narrative: Morbidly obese, pleasant, white male, sitting up in bed in the emergency department, at bedside, appears nontoxic, somewhat tachypneic with conversation however no signs of respiratory extremis General Appearance: cooperative HEENT normocephalic, head/scalp atraumatic, hearing grossly normal bilaterally and moist oral mucous membranes Eyes PERRL, EOMs intact bilaterally and conjunctivae normal Eyes Narrative: No scleral icterus Neck supple Neck Narrative: Neck is short and thick, JVD present, trachea midline Resp no retractions, no use of accessory muscles and No clear to auscultation bilaterally Resp Narrative: Diffusely diminished with few scattered end expiratory crackles at bilateral bases, mild tachypnea, exam is somewhat limited by body habitus Auscultation: crackles; Negative for rhonchi or wheezes Cardio regular rate, regular rhythm, S1 normal heart sound, S2 normal heart sound, no murmurs, no rub, no gallops and no clicks Cardio Narrative: Distant due to body habitus GI normal to inspection, nondistended, normoactive bowel sounds, soft to palpation and non-tender GI Narrative: Edema noted at distal abdomen with some pitting Extremity Extremity Narrative: 2+ bilateral lower extremity pitting edema that extends up to just below his knee joint, no clubbing or cyanosis Skin No no rashes or lesions noted, no wounds, skin turgor normal, no jaundice, no petechiae and no mottling Skin Narrative: Reticular rash noted on lower abdomen and back, upper bilateral arms Neuro oriented x3, CN's II-XII intact bilaterally, moves all extremities and no focal motor deficits Speech: speech normal Psych affect normal Psych Narrative: Extremely pleasant Assessment & Plan Assessment/Plan (1) Acute on chronic heart failure with preserved ejection fraction: PLAN: Plan Patient is a 72-year-old male admitted with progressive shortness of breath 1. Acute hypoxia ? Secondary to acute on chronic congestive heart failure with preserved ejectionfraction, pulmonary hypertension, COPD as well as obstructive sleep apnea admitted to the regular nursing floor with treatment of underlying clinical condition with supplemental oxygen titrated to keep saturation greater than 90 2. Acute on chronic congestive heart failure with preserved ejection fraction ? Patient admitted to a monitored bed started on Lasix drip placed on fluid restriction, low-sodium diet, daily weights. Patient progressed being monitoredwith daily basic metabolic panel ? 12/18/2022; 2D echo demonstrated EF of 70%. 2020 negative fluid balance of 3.2L. 3. Bilateral pleural effusion ? Secondary to above do expect improvement with diuresis 4. Lactic acidosis ? Secondary to increased work of breathing no evidence of infection or sepsis atthis point 5. Hyponatremia ? Secondary to fluid overload status as well as patient being on HCTZ. Do expect improvement with diuresis ? 12/18/2022 sodium levels up to 136 6. Class III obesity with BMI of 48.1 ? Complicating care weight loss advised 7. Anemia - Secondary to chronic disorder monitoring H&H and transfuse if patient becomes symptomatic or hemoglobin falls below 7 ? Slight drop in hemoglobin level to 8.6. Patient was noted to be guaiac positive. Consult placed to GI 8. Dyslipidemia -Patient is on statin therapy, continued at home dose 9. Diabetes mellitus type 2 ? Patient is on long-acting insulin did continue home doses in addition to Accu- Cheks before meals and at bedtime with sliding scale coverage ? 12/18/2022. Patient did develop hypoglycemia after he was kept NPO. Subsequent adjustment made to his insulin regimen both long and short acting 10. Multiple myeloma ? Patient is on lenalidomide; outpatient follow-up with Dr. Booker 11. Obstructive sleep apnea ? Consistent use of CPAP encouraged 12. GERD ? On PPI 13. Vitamin B-12 deficiency ? Patient is on home supplement did continue 14. COPD ? Aerosol treatments as needed 15. DVT prophylaxis ? Lovenox 40 mg SC every 12 16. Hypokalemia -Corrected per protocol Time spent in the patient's overall evaluation,decision-making process, review of diagnostic data, adjustment of management, discussion with other providers, nursing nursing and ancillary staff involved in patient's care documentation, 50Minutes Charges/Coding Visit Charges Inpatient E&M: 37698 Subs Hosp 12/18/22 1141 <Electronically signed by Preston Carson MD> Cosigner Signature (if applicable): CC: ~ Signed [facility] Work Phone: 1(193) 110-103208-26-2023 Progress note Author Fernanda Staples [facility] December 17, 2022 10:19pm Note Date/Time December 17, 2022 10 :18pm [facility] Medical Records Department [address] [place] [id number] Progress Note - Hospitalist 12/17/222213 MR#: [id number] Acct: [id number] Name: CYN JAMES Jr. Rep #:[id number] : 1950 72 From: Fernanda Staples DO PCP: Dr. Krishna Mcdaniel, DO Status:AD M IN Location: [place] [address] Hospitalist Note Patient with hemoglobin drop overnight per previous note. We did obtain iron studies and his TIBC was normal at 322, iron saturation was 16.5, ferritin was 183. We did get a guaiac which was resulted positive this evening. We will discontinue subcu enoxaparin. Hold aspirin. Start Protonix IV twice daily and consult gastroenterology.--> Dr. Cid notified 12/17/222218 <Electronically signed by Fernanda Staples DO> Cosigner Signature (if applicable): CC: ~ Signed [facility] Work Phone: 1(561) 779-798908-25-2023 Progress note Author Preston Carson [facility] December 17, 2022 11:43am Note Date/Time December 17, 2022 8: 52am [facility] Medical Records Department [address] [place] [address] Progress Note - Hospitalist 12/17/22 0848 MR#: [id number] Acct: [id number] Name: CYN JAMES JrShannon Rep #:[id number] : 1950 72 From: Preston Carson MD PCP: Dr. Krishna Mcdaniel, DO Status:AD M IN Location: [place] [address] Reason for Visit Reason for Visit: Diagnoses Hypo-osmolality and hyponatremia (12/16/22) Acidosis, unspecified (12/16/22) Acute on chronic diastolic (congestive) heart failure (12/16/22) Pleural effusion, not elsewhere classified (12/16/22) Acute respiratory failure with hypoxia (12/16/22) Rash and other nonspecific skin eruption (12/16/22) Subjective Subjective Patient is a 72-year-old male admitted with progressive shortness of breath Objective Data Objective Data Vital Signs: Vital Signs Temp Pulse Resp BP Pulse Ox O2 Del Method O2 Flow Rate 98.8 F 82 18 141/59 H 95 Nasal Cannula 4 12/17/22 06:40 12/17/22 07:11 12/17/22 07:11 12/17/22 06:40 12/17/22 07:11 12/17/22 07:52 12/17/22 07:52 Oxygen Flow Rate (L/min) 4 Oxygen Delivery Method Nasal Cannula Weight: 147.6 kg Body Mass Index (BMI) 48.2 Intake & Output: Intake and Output for Last 24 Hours 12/15/22 12/16/22 12/17/22 23:59 23:59 23:59 Intake Total 250 / 250 Output Total 2200 / 2200 Balance -1949 / -1949 Lab / Micro Data 12/17/22 05:18 12/17/22 05:18 Labs: Laboratory Results - last 24 hr 12/16/22 18:43: WBC 9.2, RBC 3.59 L, Hgb 9.0 L, Hct 29.0 L, MCV 80.8, MCH 25.1 L, MCHC 31.0 L, RDW Std Deviation 58.4 H, RDW Coeff of Kavya 20.6 H, Plt Count 307,MPV 11.8, Immature Gran % (Auto) 2.700 H, Neut % (Auto) 89.3 H, Lymph % (Auto) 5.3 L, Radford % (Auto) 1.9, Eos % (Auto) 0.5, Baso % (Auto) 0.3, Absolute Neuts (auto) 8.2 H, Absolute Lymphs (auto) 0.49 L, Nucleated RBC % 0, Differential Comment SEE COMMENT, Platelet Estimate ADEQUATE, RBC Morphology N CHROM, Hypochromasia 1+, Anisocytosis 1+, Microcytosis 1+, Sodium 128 L, Potassium 4.7,Chloride 93 L, Carbon Dioxide 27.0, Anion Gap 8, BUN 28 H, Creatinine 1.14, Estim Creat Clear Calc 62.26, Est GFR (MDRD) Af Amer 82, Est GFR (MDRD) Non-Af 67, BUN/Creatinine Ratio 24.6 H, Glucose 224 H, Lactic Acid 3.5 H*, Calcium 8.2 L, Troponin I High Sens 30, B-Natriuretic Peptide 373.4 H 12/17/22 00:05: Lactic Acid 2.2 H*, Troponin I High Sens 33, Procalcitonin 0.06 12/17/22 00:20: POC Glucose 248 H 12/17/22 02:05: Troponin I High Sens 35 12/17/22 05:18: WBC 9.5, RBC 3.37 L, Hgb 8.5 L, Hct 27.3 L, MCV 81.0, MCH 25.2 L, MCHC 31.1 L, RDW Std Deviation 59.6 H, RDW Coeff of Kavya 20.8 H, Plt Count 348,MPV 11.3, Immature Gran % (Auto) 2.200 H, Neut % (Auto) 88.1 H, Lymph % (Auto) 4.6 L, Radford % (Auto) 4.8, Eos % (Auto) 0.1, Baso % (Auto) 0.2, Absolute Neuts (auto) 8.4 H, Absolute Lymphs (auto) 0.44 L, Nucleated RBC % 0, Differential Comment SCANNED, Plt Morphology Comment LARGE, Basophilic Stippling 1+, Anisocytosis 2+, Ovalocytes 1+, Sodium 132 L, Potassium 3.9, Chloride 94 L, Carbon Dioxide 28.0, Anion Gap 10, BUN 26 H, Creatinine 1.16, Estim Creat Clear Calc 59.26, Est GFR (MDRD) Af Amer 80, Est GFR (MDRD) Non-Af 66, BUN/Creatinine Ratio 22.4 H, Glucose 209 H, Calcium 7.8 L, Phosphorus 3.1, Magnesium 2.0, Iron 53 L, TIBC 322, Iron Saturation 16.5, Ferritin 183, Total Bilirubin 0.60, AST 10L, ALT 44, Alkaline Phosphatase 102, Troponin I High Sens 44, Total Protein 6.5,Albumin 2.6 L, Globulin 3.9, Albumin/Globulin Ratio 0.7 L, TSH 0.34 L, Free T4 1.46 12/17/22 08:03: POC Glucose 273 H Micro: Microbiology 12/16/22 22:38 Mucosa - Nose Respiratory Panel (PCR) - Final 12/16/22 22:36 Urine, Clean Catch Legionella Antigen - Final 12/16/22 22:36 Urine, Clean Catch Streptococcus pneumoniae Antigen (M - Final Radiography Diagnostic Testing: Radiology Impression Chest CTA 12/16/22 20:00 IMPRESSION: No major central embolism but smaller peripheral emboli cannot be excluded due to bolus timing. Coronary artery disease and aortic valve disease. New moderate bilateral pleural effusions and bibasilar airspace disease. Electronically Signed: Aleks Vitale MD at 20:47 EDT Reading Location ID and State: [address] [place] [address] Tel , Service support , Physical Exam Narrative GENERAL: cooperative HEENT: Atraumatic; normocephalic EYES; Anicteric, Normal Conjunctiva NECK; supple, normal thyroid, RESPIRATORY: Diminished to auscultation CARDIOVASCULAR: Regular S1 S2, GI: soft, normoactive bowel sounds, : No Renal angle tenderness; EXTREMITIES: edema, no clubbing, MUSCULOSKELETAL: no muscle wasting NEURO: Awake; no lateralizing signs. SKIN: No Rash PSYCH; Flat affect Assessment & Plan Assessment/Plan (1) Acute on chronic heart failure with preserved ejection fraction: PLAN: Plan Patient is a 72-year-old male admitted with progressive shortness of breath 1. Acute hypoxia ? Secondary to acute on chronic congestive heart failure with preserved ejectionfraction, pulmonary hypertension, COPD as well as obstructive sleep apnea admitted to the regular nursing floor with treatment of underlying clinical condition with supplemental oxygen titrated to keep saturation greater than 90 2. Acute on chronic congestive heart failure with preserved ejection fraction ? Patient admitted to a monitored bed started on Lasix drip placed on fluid restriction, low-sodium diet, daily weights. Patient progressed being monitoredwith daily basic metabolic panel 3. Bilateral pleural effusion ? Secondary to above do expect improvement with diuresis 4. Lactic acidosis ? Secondary to increased work of breathing no evidence of infection or sepsis atthis point 5. Hyponatremia ? Secondary to fluid overload status as well as patient being on HCTZ. Do expect improvement with diuresis 6. Class III obesity with BMI of 48.1 ? Complicating care weight loss advised 7. Anemia - Secondary to chronic disorder monitoring H&H and transfuse if patient becomes symptomatic or hemoglobin falls below 7 8. Dyslipidemia -Patient is on statin therapy, continued at home dose 9. Diabetes mellitus type 2 ? Patient is on long-acting insulin did continue home doses in addition to Accu- Cheks before meals and at bedtime with sliding scale coverage 10. Multiple myeloma ? Patient is on lenalidomide; outpatient follow-up with Dr. Booker 11. Obstructive sleep apnea ? Consistent use of CPAP encouraged 12. GERD ? On PPI 13. Vitamin B-12 deficiency ? Patient is on home supplement did continue 14. COPD ? Aerosol treatments as needed 15. DVT prophylaxis ? Lovenox 40 mg SC every 12 Time spent in the patient's overall evaluation,decision-making process, review of diagnostic data, adjustment of management, discussion with other providers, nursing nursing and ancillary staff involved in patient's care documentation, 50Minutes Charges/Coding Visit Charges Inpatient E&M: 26135 Subs Hosp L3 12/17/22 1143 <Electronically signed by Preston Carson MD> Cosigner Signature (if applicable): CC: ~ Signed [facility] Work Phone: 1(223) 937-923408-25-2023 Progress note Author Fernanda Staples [facility] December 17, 2022 6:18am Note Date/Time December 17, 2022 6: 18am [facility] Medical Records Department [address] [place] [address] Progress Note - Hospitalist 12/17/22617 MR#: [id number] Acct: [id number] Name: CYN JAMES Jr. Rep #:[id number] : 1950 72 From: Fernanda Staples DO PCP: Dr. Krishna Mcdaniel, DO Status:AD M IN Location: [place] [address] Hospitalist Note Hemoglobin dropped again from 9-8.5 despite diuresis. I am unclear how much sheis diuresed however he is on a Lasix drip. We will check iron studies and guaiac stool. 12/17/22617 <Electronically signed by Fernanda Staples DO> Cosigner Signature (if applicable): CC: ~ Signed [facility] Work Phone: 1([phone]) 897-933408-25-2023 History and physical note Author Fernanda Staples [facility] December 17, 2022 1:41am Note Date/Time December 16, 2022 9: 47pm [facility] Medical Records Department [address] [place] [address] H&P Exam - Hospitalist 12/16/222142 MR#: [id number] Acct: [id number] Name: CYN JAMES Jr. Rep #:[id number] : 1950 72 From: Fernanda Staples DO PCP: Dr. Krishna Mcdaniel, DO Status:AD M IN Location: [place] [address] HPI - General General Date of Admission: 12/16/22 Date of Service: 12/16/22 Chief Complaint: Shortness of breath HPI Narrative CYN JAMES, is a 72 M who presented to department at [facility] on 12/17/2022 with shortness of breath. The patient has had progressive dyspnea and lower extremity edema that has progressively gotten worse over the last 2 weeks. He has oxygen to utilize as needed at home but typically does not require oxygen however over the last 2 weeks he has been using it regularly throughout the day. He does wear CPAP at night and states that this helps his breathing. He also reports that he has had increased lower extremity edema thatis worsening. Currently he has pitting edema up to his knees. He stated typically had been going away with elevation however recently it has not been. He is on hydrochlorothiazide at baseline but no Lasix and has no real history ofcongestive heart failure. He is being treated for myeloma at baseline and follows with Dr. Booker. He has a bit of a chronic cough but no change in his chronic cough and no sputum production. He has had no fever or chills and denied any chest pain. Patient also reports that he is developed a mildly pruritic rash located on his abdomen/flank/back and arms. Vital signs on presentation showed a temperature of 98, blood pressure 167/49, respiratory rate was 22 and oxygen saturation was 92% on 5 L nasal cannula. Pulse ox on room air was not obtained however as noted above he does not typically wear oxygen. His CBC shows a acute on chronic anemia with a drop in his hemoglobin from 11.2-9.0 but normal white count and normal platelet count. He does have a bit of a left shift. His sodium is low at 128. BUN is 28 and serum creatinine is 1.14. His serum creatinine is very slightly above his baseline of 0.7-1.0. His glucose was 224. Initial lactate was 3.5 and I suspect this is related to his hypoxia. Initial troponin was 30. His BNP was markedly elevated at 373.7. Procalcitonin was low at 0.06. With his history ofmyeloma a CTA of his chest was performed and showed no central PE however contrast bolus was not great and peripheral emboli cannot be excluded. He also had new moderate bilateral effusions and bilateral compressive atelectasis. In the emergency department he was treated with antibiotics as there was some concern for pneumonia however with no cough, fever and a low procalcitonin with bilateral compressive atelectasis I think the risk for infection is low. He wasalso treated with diuresis. [facility] Medical History Abnormal electrocardiogram Atherosclerotic heart disease of [place] coronary artery without angina pectoris Chest pain Chicken pox COPD (chronic obstructive pulmonary disease) RUIZ (dyspnea on exertion) Erectile dysfunction Essential hypertension History of left heart catheterization (LHC) (~01/27/11) Measles Mixed hyperlipidemia Multiple myeloma Murmur Obesity CONCHA (obstructive sleep apnea) Palpitations Smoldering multiple myeloma SOB (shortness of breath) Type 2 diabetes mellitus Home Medications aspirin 81 mg tablet,delayed release (Adult Aspirin Regimen) 81 mg PO QDAY 08/19/17 [History Last Taken 06/17/20 10:00] atorvastatin 20 mg tablet (Lipitor) 20 mg PO QDAY 08/19/17 [History Last Taken 06/17/20 10:00] calcium carbonate 600 mg-vitamin D3 5 mcg (200 unit) tablet (Calcium 600 with Vitamin D3) 1 tab PO QDAY 08/19/17 [History Last Taken 06/17/20 10:00] magnesium 250 mg tablet 250 mg PO QDAY 08/19/17 [History Last Taken 06/17/20 10:00] metformin 1,000 mg tablet (Glucophage) 1,000 mg PO BID 08/19/17 [History Last Taken 06/17/20] omega-3 fatty acids 1,000 mg capsule 1,000 mg PO QDAY 08/19/17 [History Last Taken 06/17/20 10:00] levomefolate Ca 3 mg-B6 35 mg-meB12 2 mg-algal oil 90.314 mg capsule (Metanx (algal oil)) 1 cap PO DAILY 12/16/17 [History Last Taken 06/17/20] cholecalciferol (vitamin D3) 50 mcg (2,000 unit) tablet 50 mcg PO DAILY 05/14/22[History Last Taken Unknown] diltiazem HCl 180 mg capsule,extended release 24 hr 180 mg PO DAILY 05/14/22 [History Last Taken Unknown] hydrochlorothiazide 25 mg tablet 25 mg PO DAILY 05/14/22 [History Last Taken Unknown] dexamethasone 4 mg tablet 40 mg PO .weekly 10/12/22 [History Last Taken Unknown] acyclovir 400 mg tablet 400 mg PO BID 10/14/22 [History Last Taken Unknown] insulin aspart U-100 100 unit/mL (3 mL) subcutaneous pen (Novolog FlexPen U-100 Insulin aspart) 45 unit subcut QACDINNER 10/14/22 [History Last Taken Unknown] insulin aspart U-100 100 unit/mL (3 mL) subcutaneous pen (Novolog FlexPen U-100 Insulin aspart) 54 unit subcut QACLUNCH 10/14/22 [History Last Taken Unknown] insulin aspart U-100 [Novolog FlexPen U-100 Insulin] 34 unit subcut QACBREAK 10/14/22 [History Last Taken Unknown] insulin detemir U-100 [Levemir FlexTouch U100 Insulin] 78 unit subcut TIDWMEAL 10/14/22 [History Last Taken Unknown] irbesartan 300 mg-hydrochlorothiazide 12.5 mg tablet 1 tab PO DAILY 10/14/22 [History Last Taken Unknown] lenalidomide 25 mg capsule 25 mg PO .COMPLEX 10/14/22 [History Last Taken Unknown] omeprazole 40 mg capsule,delayed release 40 mg PO DAILY PRN nause 10/14/22 [History Last Taken Unknown] ondansetron 8 mg disintegrating tablet 8 mg PO Q8H PRN nausea and vomiting 10/14/22 [History Last Taken Unknown] albuterol sulfate 90 mcg/actuation aerosol inhaler (Ventolin HFA) 2 puff inhalation Q4H #18 grams 12/07/22 [Rx Last Taken Unknown] umeclidinium 62.5 mcg-vilanterol 25 mcg/actuation powdr for inhalation (Anoro Ellipta) 1 inh inhalation QDAY #60 ea 12/09/22 [Rx Last Taken Unknown] insulin aspart U-100 100 unit/mL subcutaneous solution (Novolog U-100 Insulin aspart) 45 unit subcut QHS diabetes 12/17/22 [History Last Taken Unknown] Allergy/AdvReac Type Severity Reaction Status Date / Time Penicillins Allergy Mild Rash Verified 12/16/22 18:21 Family History Father Myocardial infarction Mother Breast cancer Surgical History Bone spur removal History of cataract extraction Social History Smoking Status: Former smoker quit date: 04/25/02 pack-years: 31 alcohol intake: current alcohol intake frequency: holidays/special occasions only substance use type: does not use caffeine: Yes Type: coffee Number of servings: 5 ROS Constitutional Constitutional: Denies anorexia, change in weight, chills, fatigue, fever(s), malaise, night sweats, weakness or other Eyes Eyes: Denies blurry vision, change in eye color, change in vision, discharge from eye(s), double vision, erythema, eye pain, loss of vision or other ENT HEENT: Denies abnormal hearing, dysphagia, ear pain, epistaxis, headache(s), hearing loss, nasal congestion, nasal discharge, post nasal drip, sinus pressure, sore throat or other Cardiovascular Cardiovascular: Reports dyspnea on exertion and edema; Denies chest pain, claudication, lightheadedness, orthopnea, palpitations, paroxysmal nocturnal dyspnea, rapid heart rate, syncope or other Respiratory/Chest Respiratory/Chest: Reports dyspnea, shortness of breath at rest and shortness ofbreath with exertion; Denies cough, excessive phlegm production, hemoptysis, productive cough, wheezing or other Gastrointestinal Gastrointestinal: Denies abdominal pain, coffee ground emesis, constipation, diarrhea, dyspepsia, hematemesis, hematochezia, loose stools, melena, nausea, vomiting or other Genitourinary Genitourinary: Denies burning urination, difficulty urinating, dysuria, hematuria, nocturia, urinary frequency, urinary hesitancy, urinary incontinence,urinary urgency or other Musculoskeletal Musculoskeletal: Denies arthralgias, back pain, joint pain, joint stiffness, joint swelling, myalgias, neck pain or other Neurologic Neurologic: Denies abnormal gait, abnormal speech, confusion, disequilibrium, dizziness, focal weakness, headache(s), numbness, paresthesias, seizure-like activity, seizures, syncope, tingling, tremor(s) or other Psychiatric Psychiatric: Denies anxiety, depression, homicidal ideation, suicidal ideation or other Endocrine Endocrinology: Denies change in body appearance, cold intolerance, excessive sweating, heat intolerance, polydipsia, polyuria or other Hematologic/Lymphatic Hematologic/Lymphatic: Denies anemia, easy bleeding, easy bruising, lymphadenopathy or other Allergic/Immunologic Allergic/Immunologic: Denies rhinitis, hives, eczemia, asthma or other Vital Signs Vital Signs Vital Signs: 12/16/22 18:18 12/16/22 18:22 12/16/22 18:25 Temperature 98 F 98 F Temperature Source Temporal Temporal Pulse Rate 85 78 Respiratory Rate 22 H 22 H Respiratory Effort Short of Breath Respiratory Depth Shallow Respiratory Pattern Tachypnea Blood Pressure 167/49 H 167/49 H Blood Pressure Mean 88 88 Pulse Ox 92 92 Oxygen Delivery Method Nasal Cannula Nasal Cannula Nasal Cannula Oxygen Flow Rate (L/min) 5 5 5 12/16/22 18:45 Temperature Temperature Source Pulse Rate 87 Respiratory Rate 18 Respiratory Effort Respiratory Depth Respiratory Pattern Normal Blood Pressure Blood Pressure Mean Pulse Ox Oxygen Delivery Method Oxygen Flow Rate (L/min) Weight Weight: 148.325 kg Body Mass Index (BMI) 46.9 Physical Exam Const alert, oriented x3 and no apparent distress Constitutional Narrative: Morbidly obese, pleasant, white male, sitting up in bed in the emergency department, at bedside, appears nontoxic, somewhat tachypneic with conversation however no signs of respiratory extremis General Appearance: cooperative HEENT normocephalic, head/scalp atraumatic, hearing grossly normal bilaterally and moist oral mucous membranes HEENT Narrative: Mallampati 3-4, no thrush Eyes PERRL, EOMs intact bilaterally and conjunctivae normal Eyes Narrative: No scleral icterus Neck supple Neck Narrative: Neck is short and thick, JVD present, trachea midline Resp no retractions, no use of accessory muscles and No clear to auscultation bilaterally Resp Narrative: Diffusely diminished with few scattered end expiratory crackles at bilateral bases, mild tachypnea, exam is somewhat limited by body habitus Auscultation: crackles; Negative for rhonchi or wheezes Cardio regular rate, regular rhythm, S1 normal heart sound, S2 normal heart sound, no murmurs, no rub, no gallops and no clicks Cardio Narrative: Distant due to body habitus GI normal to inspection, nondistended, normoactive bowel sounds, soft to palpation and non-tender GI Narrative: Edema noted at distal abdomen with some pitting Extremity Extremity Narrative: 2+ bilateral lower extremity pitting edema that extends up to just below his knee joint, no clubbing or cyanosis Skin No no rashes or lesions noted, no wounds, skin turgor normal, no jaundice, no petechiae and no mottling Skin Narrative: Reticular rash noted on lower abdomen and back, upper bilateral arms Neuro oriented x3, CN's II-XII intact bilaterally, moves all extremities and no focal motor deficits Speech: speech normal Psych affect normal Psych Narrative: Extremely pleasant Results Lab / Micro Data 12/16/22 18:43 12/16/22 18:43 Labs: Laboratory Results - last 24 hr 12/16/22 18:43: WBC 9.2, RBC 3.59 L, Hgb 9.0 L, Hct 29.0 L, MCV 80.8, MCH 25.1 L, MCHC 31.0 L, RDW Std Deviation 58.4 H, RDW Coeff of Kavya 20.6 H, Plt Count 307,MPV 11.8, Immature Gran % (Auto) 2.700 H, Neut % (Auto) 89.3 H, Lymph % (Auto) 5.3 L, Radford % (Auto) 1.9, Eos % (Auto) 0.5, Baso % (Auto) 0.3, Absolute Neuts (auto) 8.2 H, Absolute Lymphs (auto) 0.49 L, Nucleated RBC % 0, Differential Comment SEE COMMENT, Platelet Estimate ADEQUATE, RBC Morphology N CHROM, Hypochromasia 1+, Anisocytosis 1+, Microcytosis 1+, Sodium 128 L, Potassium 4.7,Chloride 93 L, Carbon Dioxide 27.0, Anion Gap 8, BUN 28 H, Creatinine 1.14, Estim Creat Clear Calc 62.26, Est GFR (MDRD) Af Amer 82, Est GFR (MDRD) Non-Af 67, BUN/Creatinine Ratio 24.6 H, Glucose 224 H, Lactic Acid 3.5 H*, Calcium 8.2 L, Troponin I High Sens 30, B-Natriuretic Peptide 373.4 H Radiology Impression Chest CTA 12/16/22 20:00 IMPRESSION: No major central embolism but smaller peripheral emboli cannot be excluded due to bolus timing. Coronary artery disease and aortic valve disease. New moderate bilateral pleural effusions and bibasilar airspace disease. Electronically Signed: Aleks Vitale MD at 20:47 EDT Reading Location ID and State: [facility] / [place] Tel , Service support , Assessment & Plan Assessment/Plan (1) Acute respiratory failure with hypoxia: (2) Hyponatremia: (3) Lactic acidosis: (4) Acute on chronic heart failure with preserved ejection fraction: (5) Bilateral pleural effusion: (6) Rash: PLAN: Plan Acute hypoxic respiratory failure secondary to acute on chronic heart failure with preserved ejection fraction -Last echo on 06/10/2022 shows EF of 75% with indeterminate diastolic function, sigmoid septum, mild left atrial enlargement, mild mitral valve and tricuspid valve insufficiency, trivial aortic valve insufficiency and right ventricular systolic pressure 45 mmHg. -We will repeat echocardiogram given new issues -Lasix drip -1500 cc fluid restriction -Daily weights -Sodium restriction -Cycle cardiac enzymes -Procalcitonin is low -Check respiratory viral panel especially given reticular rash -Check strep pneumo and Legionella antigens -We will hold off on empiric antibiotics for right now as I do feel that this islikely not infectious related -Continue supplemental oxygen currently requiring 6 L -Wean as tolerated Bilateral pleural effusions -Compression atelectasis noted bilaterally which is likely contributing to his hypoxia -Incentive spirometry ordered -Diuresis as above -Consider follow-up chest x-ray if respiratory status does not improve Lactic acidosis -Doubt acute infection or sepsis -Likely related to hypoxia -Repeat per protocol but I do anticipate that this will improve with continuously supplemental oxygen Acute hyponatremia -Likely related to volume overload -Start diuresis as noted above -Repeat BMP in a.m. -If does not improve with volume removal may need to consider further work-up Pulmonary hypertension -This seems to be worsening compared to previous echo -Repeat echo pending -Suspect who group 3 Rash -Patient and family state that it is overall improving -Respiratory viral panel is pending -As needed Benadryl and continue to monitor CONCHA -Continue CPAP 13 cm of water -At home unit Multiple myeloma -Continue home medication -Continue outpatient follow-up with Dr. Booker -Continue acyclovir DM-2 -Continue home insulin regimen -Patient takes odd dosing of basal insulin and I did confirm that this is accurate -Hold home metformin -Carb controlled diet -Monitor sugars on current regimen and add SSI if sugars are elevated -Continue outpatient endocrinology follow-up Vitamin D deficiency -Continue home supplement Hypertension -Hold hydrochlorothiazide -Continue verapamil -Patient is also documented to be on irbesartan/HCTZ--> will need to verify and if so hold HCTZ component and discontinue at discharge as he would then be on 2 separate doses and pills with HCTZ GERD -Continue PPI History of COPD -Continue home inhalers Morbid obesity -BMI is 48.4 -Recommend weight loss -Complicates treatment, prognosis, outcomes DVT prophylaxis -Lovenox 40 twice daily CODE STATUS -Full code is verified on admission Charges/Coding Visit Charges Inpatient E&M: 91254 Init Hosp L3 12/17/22 0141 <Electronically signed by Fernanda Staples DO> Cosigner Signature (if applicable): CC: Dr. Krishna Mcdaniel DO; Dr. Fernanda Staples DO~ Signed [facility] Work Phone: [phone] Discharge summary Author Dru Mayfield [facility] December 16, 2022 10:05pm Note Date/Time December 16, 2022 6: 43pm [facility] Medical Records Department [address] [place] [address] Emergency Department Summary 12/16/22 MR#: [id number] Acct: [id number] Name: CYN JAMES Jr. Rep #:[id number] : 1950 72 From: Dru Mayfield MD PCP: Dr. Krishna Mcdaniel, DO Status:RE G ER Location: ED HPI History of Present Illness Chief Complaint: Shortness of Breath Informant: patient and spouse/S.O. Narrative Narrative: Patient presents with dyspnea. The patient has had progressive dyspnea over the last 2 weeks. He just got really bad today. They were going to drive in but he did not feel like he couldwalk from the car into the hospital. He does have a history of COPD. He has been given oxygen for some time but just to be used on as needed basis. But normally he has not used it. Over the last 2 weeks he has been starting to use it and uses it all day now. He does well at night but he states he puts CPAP onat night and that helps his breathing. He is also noticed a little bit of bilateral lower extremity edema which is not typical for him. But it does go away when he sleeps and elevates his legs. He is on some hydrochlorothiazide but no real history of congestive heart failure. He also is being treated from a myeloma. He has never had a PE or DVT. No family history. No travel. No asymmetry of leg swelling but both halves been swelling. He does see Dr. Mcdaniel for pulmonology and Dr. Booker for his multiple myeloma. He does not have much of a cough. No sputum production or blood. He is not having chest pain or pressure at any time. [facility] Medical History Abnormal electrocardiogram Atherosclerotic heart disease of [place] coronary artery without angina pectoris Chest pain Chicken pox COPD (chronic obstructive pulmonary disease) RUIZ (dyspnea on exertion) Erectile dysfunction Essential hypertension History of left heart catheterization (LHC) (~01/27/11) Measles Mixed hyperlipidemia Multiple myeloma Murmur Obesity CONCHA (obstructive sleep apnea) Palpitations Smoldering multiple myeloma SOB (shortness of breath) Type 2 diabetes mellitus Home Medications aspirin 81 mg tablet,delayed release (Adult Aspirin Regimen) 81 mg PO QDAY 08/19/17 [History Last Taken 06/17/20 10:00] atorvastatin 20 mg tablet (Lipitor) 20 mg PO QDAY 08/19/17 [History Last Taken 06/17/20 10:00] calcium carbonate 600 mg-vitamin D3 5 mcg (200 unit) tablet (Calcium 600 with Vitamin D3) 1 tab PO QDAY 08/19/17 [History Last Taken 06/17/20 10:00] magnesium 250 mg tablet 250 mg PO QDAY 08/19/17 [History Last Taken 06/17/20 10:00] metformin 1,000 mg tablet (Glucophage) 1,000 mg PO BID 08/19/17 [History Last Taken 06/17/20] multivitamin (Multiple Vitamins tablet) 1 tab PO QDAY 08/19/17 [History Last Taken 06/17/20 10:00] omega-3 fatty acids 1,000 mg capsule 1,000 mg PO QDAY 08/19/17 [History Last Taken 06/17/20 10:00] levomefolate Ca 3 mg-B6 35 mg-meB12 2 mg-algal oil 90.314 mg capsule (Metanx (algal oil)) 1 cap PO DAILY 12/16/17 [History Last Taken 06/17/20] cholecalciferol (vitamin D3) 50 mcg (2,000 unit) tablet 50 mcg PO DAILY 05/14/22[History Last Taken Unknown] diltiazem HCl 180 mg capsule,extended release 24 hr 180 mg PO DAILY 05/14/22 [History Last Taken Unknown] hydrochlorothiazide 25 mg tablet 25 mg PO DAILY 05/14/22 [History Last Taken Unknown] dexamethasone 4 mg tablet 40 mg PO MONTHLY 10/12/22 [History Last Taken Unknown] Lactobacillus acidophilus 10 mg PO DAILY 10/14/22 [History Last Taken Unknown] acyclovir 400 mg tablet 400 mg PO BID 10/14/22 [History Last Taken Unknown] insulin aspart U-100 100 unit/mL (3 mL) subcutaneous pen (Novolog FlexPen U-100 Insulin aspart) 45 unit subcut QACDINNER 10/14/22 [History Last Taken Unknown] insulin aspart U-100 100 unit/mL (3 mL) subcutaneous pen (Novolog FlexPen U-100 Insulin aspart) 54 unit subcut QACLUNCH 10/14/22 [History Last Taken Unknown] insulin aspart U-100 [Novolog FlexPen U-100 Insulin] 34 unit subcut QACBREAK 10/14/22 [History Last Taken Unknown] insulin detemir U-100 [Levemir FlexTouch U100 Insulin] 78 unit subcut TIDWMEAL 10/14/22 [History Last Taken Unknown] irbesartan 300 mg-hydrochlorothiazide 12.5 mg tablet 1 tab PO DAILY 10/14/22 [History Last Taken Unknown] lenalidomide 25 mg capsule 25 mg PO .COMPLEX 10/14/22 [History Last Taken Unknown] omeprazole 40 mg capsule,delayed release 40 mg PO DAILY 10/14/22 [History Last Taken Unknown] ondansetron 8 mg disintegrating tablet 8 mg PO Q8H PRN nausea and vomiting 10/14/22 [History Last Taken Unknown] albuterol sulfate 90 mcg/actuation aerosol inhaler (Ventolin HFA) 2 puff inhalation Q4H #18 grams 12/07/22 [Rx Last Taken Unknown] umeclidinium 62.5 mcg-vilanterol 25 mcg/actuation powdr for inhalation (Anoro Ellipta) 1 inh inhalation QDAY #60 ea 12/09/22 [Rx Last Taken Unknown] Allergy/AdvReac Type Severity Reaction Status Date / Time Penicillins Allergy Mild Rash Verified 12/16/22 18:21 Family History Father Myocardial infarction Mother Breast cancer Surgical History Bone spur removal History of cataract extraction Social History Smoking Status: Former smoker quit date: 04/25/02 pack-years: 31 alcohol intake: current alcohol intake frequency: holidays/special occasions only substance use type: does not use caffeine: Yes Type: coffee Number of servings: 5 ROS ROS ED ROS Narrative A complete review of systems was performed and is negative except as documented in the history of present illness. Some specific details below. Constitutional: No recent fevers or chills. No real malaise but his energy level is down because he gets dyspneic. EYE: No discharge no change in vision. ENT: No difficulty swallowing. No swelling. No pain. No reflux symptoms. CV: Denies chest pain. He does state he has a history of an irregular heartbeatand that is longstanding and chronic for him. Respiratory: See history of present illness. GI: No abdominal pain. No nausea vomiting diarrhea. No blood in stool. : No frequency dysuria or hematuria. Musculoskeletal: No recent trauma. No pains. He has had new swelling over the last week or 2 in both legs. Skin: No rash. Nondiaphoretic. Neuro: No weakness or numbness. Endocrine: No polyuria or polydipsia. EXAM Physical Exam Narrative Exam Narrative: CONSTITUTIONAL: Patient is awake alert and appropriate. But he does have increased work of breathing. Not at all sleepy or lethargic though. HEENT: No notable trauma. Mucous membranes moist. EYES: No conjunctival injection. No pallor. NECK:No JVD. No stridor. CARDIOVASCULAR: Regular rate. Regular rhythm. No notable murmur. No JVD. Overall his rate is generally regular. But he does have extrasystoles. RESPIRATORY: Respiratory effort is increased. But I do not hear him cough whileI am in the room. I do not hear rales or rhonchi. I really do not hear significant wheezing. He does appear to be moving air. But he does have a thick chest wall that does somewhat limit exam. But his auscultatory findings seem less than his symptoms. GASTROINTESTINAL: Obese but not distended. Bowel sounds are normal. No tenderness. No guarding. No rebound. No palpable mass. No bruit is heard. GENITOURINARY: No tenderness over the bladder. No CVA tenderness. MUSCULOSKELETAL: Atraumatic. He does have bilateral +1?2 pretibial edema. But no cord. No asymmetry. No distended veins. NEUROLOGICAL: Patient is alert and appropriate. No focal deficit noted. He is not sleepy or lethargic. No indication of CO2 retention clinically SKIN: No noted rashes. No diaphoresis. PSYCHIATRIC: Patient is calm. Mood is appropriate. Const Vital Signs: 12/16/22 18:18 12/16/22 18:22 12/16/22 18:25 Temperature 98 F 98 F Temperature Source Temporal Temporal Pulse Rate 85 78 Respiratory Rate 22 H 22 H Respiratory Effort Short of Breath Respiratory Depth Shallow Respiratory Pattern Tachypnea Blood Pressure 167/49 H 167/49 H Blood Pressure Mean 88 88 Pulse Ox 92 92 Oxygen Delivery Method Nasal Cannula Nasal Cannula Nasal Cannula Oxygen Flow Rate (L/min) 5 5 5 12/16/22 18:45 Temperature Temperature Source Pulse Rate 87 Respiratory Rate 18 Respiratory Effort Respiratory Depth Respiratory Pattern Normal Blood Pressure Blood Pressure Mean Pulse Ox Oxygen Delivery Method Oxygen Flow Rate (L/min) MDM MDM MDM Narrative Medical decision making narrative: I reviewed prior outpatient echocardiogram from June 10 of this year that showed an ejection fraction of 75%. After we get some results back patient's does now state that he had a rash that developed over the last couple days but seem to be getting better. It is lacy red blanches mostly across the lower abdomen a little bit on the right arm. Not vesicular. Not petechial or purpura. Patient CBC shows a mildly low hemoglobin but normal white count and platelets. Patient's electrolytes show no marked abnormalities. Patient's glucose was up a little bit at 224. His lactate is high at 3.5 likely due to hypoxia. He states even on oxygen sitting still he has been running 88 and 89 at home. Patient's troponin is negative at 30. Patient's BNP is elevated at 373. His CT a of the chest shows effusions. No definitive PE that I see. Final reading is similar. They do show some compressive atelectasis also. Patient's recheck. He does feel a little better with breathing treatment but hestill not wheezing. He is moving good air. This patient has some low hemoglobin, low sodium, increased peripheral edema, bilateral effusions. I think this is likely pulmonary edema as a source of his symptoms. I am not seeing good indication of infectious etiology. With the rash I will send off viral studies. We will send off procalcitonin also. I think the patient's lacticacidosis is likely due to hypoxia but not infectious sepsis. He is not given IVfluids and antibiotics at this time as I think this would hurt the patient more than help. We discussed all these issues with the hospitalist. She plans to likely put the patient on a Lasix drip. We will hold off individual dosing now pending that. Lab Data Attestation: I reviewed the patient's lab results. Labs: Laboratory Results - last 24 hr 12/16/22 18:43 WBC 9.2 RBC 3.59 L Hgb 9.0 L Hct 29.0 L MCV 80.8 MCH 25.1 L MCHC 31.0 L RDW Std Deviation 58.4 H RDW Coeff of Kavya 20.6 H Plt Count 307 MPV 11.8 Immature Gran % (Auto) 2.700 H Neut % (Auto) 89.3 H Lymph % (Auto) 5.3 L Radford % (Auto) 1.9 Eos % (Auto) 0.5 Baso % (Auto) 0.3 Absolute Neuts (auto) 8.2 H Absolute Lymphs (auto) 0.49 L Nucleated RBC % 0 Differential Comment SEE COMMENT Platelet Estimate ADEQUATE RBC Morphology N CHROM Hypochromasia 1+ Anisocytosis 1+ Microcytosis 1+ Sodium 128 L Potassium 4.7 Chloride 93 L Carbon Dioxide 27.0 Anion Gap 8 BUN 28 H Creatinine 1.14 Estim Creat Clear Calc 62.26 Est GFR (MDRD) Af Amer 82 Est GFR (MDRD) Non-Af 67 BUN/Creatinine Ratio 24.6 H Glucose 224 H Lactic Acid 3.5 H* Calcium 8.2 L Troponin I High Sens 30 B-Natriuretic Peptide 373.4 H Radiography Diagnostic Testing: Clinical Impression(s) from Imaging Studies Chest CTA 12/16/22 20:00 IMPRESSION: No major central embolism but smaller peripheral emboli cannot be excluded due to bolus timing. Coronary artery disease and aortic valve disease. New moderate bilateral pleural effusions and bibasilar airspace disease. Electronically Signed: Aleks Vitale MD at 20:47 EDT , EKG Initial EKG: Comments: My independent her potation the patient's EKG shows sinus with what does appear to be second-degree block. Occasional fusion beats. No acute ST elevation or depression. Overall rate is 78. OH interval varies. QRS duration is high normal at 07/24/2017 and QTc is long at 519 ms. But this EKG does look similar to a prior. Discharge Plan Dx/Rx/DC Orders Clinical Impression: Pulmonary edema, Acidosis, lactic, Respiratory failure with hypoxia, Hx of multiple myeloma, Acute hyponatremia Disposition Disposition: Acute Care Hospital [facility] What to do if you have Problems For any increased pain, shortness of breath, bleeding, nausea or vomiting, chestpain, or any unexpected problems, contact your Primary Care Provider. Call [facility] ([phone]) or report to the closest Emergency Room. Call 911 if necessary. 12/16/222204 <Electronically signed by Dru Mayfield MD> Cosigner Signature (if applicable): CC: Dr. Krishna Mcdaniel, DO ~ Signed [facility] Work Phone: [phone] Discharge [facility] December 16, 2022 10:05pm Note Date/Time December 16, 2022 6: 43pm [facility] Medical Records Department [address] [place] [address] Emergency Department Summary 12/16/22 MR#: [id number] Acct: [id number] Name: CYN JAMES Jr. Rep #:[id number] : 1950 72 From: Dru Mayfield MD PCP: Dr. Krishna Mcdaniel, DO Status:RE G ER Location: ED HPI History of Present Illness Chief Complaint: Shortness of Breath Informant: patient and spouse/S.O. Narrative Narrative: Patient presents with dyspnea. The patient has had progressive dyspnea over the last 2 weeks. He just got really bad today. They were going to drive in but he did not feel like he couldwalk from the car into the hospital. He does have a history of COPD. He has been given oxygen for some time but just to be used on as needed basis. But normally he has not used it. Over the last 2 weeks he has been starting to use it and uses it all day now. He does well at night but he states he puts CPAP onat night and that helps his breathing. He is also noticed a little bit of bilateral lower extremity edema which is not typical for him. But it does go away when he sleeps and elevates his legs. He is on some hydrochlorothiazide but no real history of congestive heart failure. He also is being treated from a myeloma. He has never had a PE or DVT. No family history. No travel. No asymmetry of leg swelling but both halves been swelling. He does see Dr. Mcdaniel for pulmonology and Dr. Booker for his multiple myeloma. He does not have much of a cough. No sputum production or blood. He is not having chest pain or pressure at any time. [facility] Medical History Abnormal electrocardiogram Atherosclerotic heart disease of [place] coronary artery without angina pectoris Chest pain Chicken pox COPD (chronic obstructive pulmonary disease) RUIZ (dyspnea on exertion) Erectile dysfunction Essential hypertension History of left heart catheterization (LHC) (~01/27/11) Measles Mixed hyperlipidemia Multiple myeloma Murmur Obesity CONCHA (obstructive sleep apnea) Palpitations Smoldering multiple myeloma SOB (shortness of breath) Type 2 diabetes mellitus Home Medications aspirin 81 mg tablet,delayed release (Adult Aspirin Regimen) 81 mg PO QDAY 08/19/17 [History Last Taken 06/17/20 10:00] atorvastatin 20 mg tablet (Lipitor) 20 mg PO QDAY 08/19/17 [History Last Taken 06/17/20 10:00] calcium carbonate 600 mg-vitamin D3 5 mcg (200 unit) tablet (Calcium 600 with Vitamin D3) 1 tab PO QDAY 08/19/17 [History Last Taken 06/17/20 10:00] magnesium 250 mg tablet 250 mg PO QDAY 08/19/17 [History Last Taken 06/17/20 10:00] metformin 1,000 mg tablet (Glucophage) 1,000 mg PO BID 08/19/17 [History Last Taken 06/17/20] multivitamin (Multiple Vitamins tablet) 1 tab PO QDAY 08/19/17 [History Last Taken 06/17/20 10:00] omega-3 fatty acids 1,000 mg capsule 1,000 mg PO QDAY 08/19/17 [History Last Taken 06/17/20 10:00] levomefolate Ca 3 mg-B6 35 mg-meB12 2 mg-algal oil 90.314 mg capsule (Metanx (algal oil)) 1 cap PO DAILY 12/16/17 [History Last Taken 06/17/20] cholecalciferol (vitamin D3) 50 mcg (2,000 unit) tablet 50 mcg PO DAILY 05/14/22[History Last Taken Unknown] diltiazem HCl 180 mg capsule,extended release 24 hr 180 mg PO DAILY 05/14/22 [History Last Taken Unknown] hydrochlorothiazide 25 mg tablet 25 mg PO DAILY 05/14/22 [History Last Taken Unknown] dexamethasone 4 mg tablet 40 mg PO MONTHLY 10/12/22 [History Last Taken Unknown] Lactobacillus acidophilus 10 mg PO DAILY 10/14/22 [History Last Taken Unknown] acyclovir 400 mg tablet 400 mg PO BID 10/14/22 [History Last Taken Unknown] insulin aspart U-100 100 unit/mL (3 mL) subcutaneous pen (Novolog FlexPen U-100 Insulin aspart) 45 unit subcut QACDINNER 10/14/22 [History Last Taken Unknown] insulin aspart U-100 100 unit/mL (3 mL) subcutaneous pen (Novolog FlexPen U-100 Insulin aspart) 54 unit subcut QACLUNCH 10/14/22 [History Last Taken Unknown] insulin aspart U-100 [Novolog FlexPen U-100 Insulin] 34 unit subcut QACBREAK 10/14/22 [History Last Taken Unknown] insulin detemir U-100 [Levemir FlexTouch U100 Insulin] 78 unit subcut TIDWMEAL 10/14/22 [History Last Taken Unknown] irbesartan 300 mg-hydrochlorothiazide 12.5 mg tablet 1 tab PO DAILY 10/14/22 [History Last Taken Unknown] lenalidomide 25 mg capsule 25 mg PO .COMPLEX 10/14/22 [History Last Taken Unknown] omeprazole 40 mg capsule,delayed release 40 mg PO DAILY 10/14/22 [History Last Taken Unknown] ondansetron 8 mg disintegrating tablet 8 mg PO Q8H PRN nausea and vomiting 10/14/22 [History Last Taken Unknown] albuterol sulfate 90 mcg/actuation aerosol inhaler (Ventolin HFA) 2 puff inhalation Q4H #18 grams 12/07/22 [Rx Last Taken Unknown] umeclidinium 62.5 mcg-vilanterol 25 mcg/actuation powdr for inhalation (Anoro Ellipta) 1 inh inhalation QDAY #60 ea 12/09/22 [Rx Last Taken Unknown] Allergy/AdvReac Type Severity Reaction Status Date / Time Penicillins Allergy Mild Rash Verified 12/16/22 18:21 Family History Father Myocardial infarction Mother Breast cancer Surgical History Bone spur removal History of cataract extraction Social History Smoking Status: Former smoker quit date: 04/25/02 pack-years: 31 alcohol intake: current alcohol intake frequency: holidays/special occasions only substance use type: does not use caffeine: Yes Type: coffee Number of servings: 5 ROS ROS ED ROS Narrative A complete review of systems was performed and is negative except as documented in the history of present illness. Some specific details below. Constitutional: No recent fevers or chills. No real malaise but his energy level is down because he gets dyspneic. EYE: No discharge no change in vision. ENT: No difficulty swallowing. No swelling. No pain. No reflux symptoms. CV: Denies chest pain. He does state he has a history of an irregular heartbeatand that is longstanding and chronic for him. Respiratory: See history of present illness. GI: No abdominal pain. No nausea vomiting diarrhea. No blood in stool. : No frequency dysuria or hematuria. Musculoskeletal: No recent trauma. No pains. He has had new swelling over the last week or 2 in both legs. Skin: No rash. Nondiaphoretic. Neuro: No weakness or numbness. Endocrine: No polyuria or polydipsia. EXAM Physical Exam Narrative Exam Narrative: CONSTITUTIONAL: Patient is awake alert and appropriate. But he does have increased work of breathing. Not at all sleepy or lethargic though. HEENT: No notable trauma. Mucous membranes moist. EYES: No conjunctival injection. No pallor. NECK:No JVD. No stridor. CARDIOVASCULAR: Regular rate. Regular rhythm. No notable murmur. No JVD. Overall his rate is generally regular. But he does have extrasystoles. RESPIRATORY: Respiratory effort is increased. But I do not hear him cough whileI am in the room. I do not hear rales or rhonchi. I really do not hear significant wheezing. He does appear to be moving air. But he does have a thick chest wall that does somewhat limit exam. But his auscultatory findings seem less than his symptoms. GASTROINTESTINAL: Obese but not distended. Bowel sounds are normal. No tenderness. No guarding. No rebound. No palpable mass. No bruit is heard. GENITOURINARY: No tenderness over the bladder. No CVA tenderness. MUSCULOSKELETAL: Atraumatic. He does have bilateral +1?2 pretibial edema. But no cord. No asymmetry. No distended veins. NEUROLOGICAL: Patient is alert and appropriate. No focal deficit noted. He is not sleepy or lethargic. No indication of CO2 retention clinically SKIN: No noted rashes. No diaphoresis. PSYCHIATRIC: Patient is calm. Mood is appropriate. Const Vital Signs: 12/16/22 18:18 12/16/22 18:22 12/16/22 18:25 Temperature 98 F 98 F Temperature Source Temporal Temporal Pulse Rate 85 78 Respiratory Rate 22 H 22 H Respiratory Effort Short of Breath Respiratory Depth Shallow Respiratory Pattern Tachypnea Blood Pressure 167/49 H 167/49 H Blood Pressure Mean 88 88 Pulse Ox 92 92 Oxygen Delivery Method Nasal Cannula Nasal Cannula Nasal Cannula Oxygen Flow Rate (L/min) 5 5 5 12/16/22 18:45 Temperature Temperature Source Pulse Rate 87 Respiratory Rate 18 Respiratory Effort Respiratory Depth Respiratory Pattern Normal Blood Pressure Blood Pressure Mean Pulse Ox Oxygen Delivery Method Oxygen Flow Rate (L/min) MDM MDM MDM Narrative Medical decision making narrative: I reviewed prior outpatient echocardiogram from June 10 of this year that showed an ejection fraction of 75%. After we get some results back patient's does now state that he had a rash that developed over the last couple days but seem to be getting better. It is lacy red blanches mostly across the lower abdomen a little bit on the right arm. Not vesicular. Not petechial or purpura. Patient CBC shows a mildly low hemoglobin but normal white count and platelets. Patient's electrolytes show no marked abnormalities. Patient's glucose was up a little bit at 224. His lactate is high at 3.5 likely due to hypoxia. He states even on oxygen sitting still he has been running 88 and 89 at home. Patient's troponin is negative at 30. Patient's BNP is elevated at 373. His CT a of the chest shows effusions. No definitive PE that I see. Final reading is similar. They do show some compressive atelectasis also. Patient's recheck. He does feel a little better with breathing treatment but hestill not wheezing. He is moving good air. This patient has some low hemoglobin, low sodium, increased peripheral edema, bilateral effusions. I think this is likely pulmonary edema as a source of his symptoms. I am not seeing good indication of infectious etiology. With the rash I will send off viral studies. We will send off procalcitonin also. I think the patient's lacticacidosis is likely due to hypoxia but not infectious sepsis. He is not given IVfluids and antibiotics at this time as I think this would hurt the patient more than help. We discussed all these issues with the hospitalist. She plans to likely put the patient on a Lasix drip. We will hold off individual dosing now pending that. Lab Data Attestation: I reviewed the patient's lab results. Labs: Laboratory Results - last 24 hr 12/16/22 18:43 WBC 9.2 RBC 3.59 L Hgb 9.0 L Hct 29.0 L MCV 80.8 MCH 25.1 L MCHC 31.0 L RDW Std Deviation 58.4 H RDW Coeff of Kavya 20.6 H Plt Count 307 MPV 11.8 Immature Gran % (Auto) 2.700 H Neut % (Auto) 89.3 H Lymph % (Auto) 5.3 L [place] % (Auto) 1.9 Eos % (Auto) 0.5 Baso % (Auto) 0.3 Absolute Neuts (auto) 8.2 H Absolute Lymphs (auto) 0.49 L Nucleated RBC % 0 Differential Comment SEE COMMENT Platelet Estimate ADEQUATE RBC Morphology N CHROM Hypochromasia 1+ Anisocytosis 1+ Microcytosis 1+ Sodium 128 L Potassium 4.7 Chloride 93 L Carbon Dioxide 27.0 Anion Gap 8 BUN 28 H Creatinine 1.14 Estim Creat Clear Calc 62.26 Est GFR (MDRD) Af Amer 82 Est GFR (MDRD) Non-Af 67 BUN/Creatinine Ratio 24.6 H Glucose 224 H Lactic Acid 3.5 H* Calcium 8.2 L Troponin I High Sens 30 B-Natriuretic Peptide 373.4 H Radiography Diagnostic Testing: Clinical Impression(s) from Imaging Studies Chest CTA 12/16/22 20:00 IMPRESSION: No major central embolism but smaller peripheral emboli cannot be excluded due to bolus timing. Coronary artery disease and aortic valve disease. New moderate bilateral pleural effusions and bibasilar airspace disease. Electronically Signed: Aleks Vitale MD at 20:47 EDT , EKG Initial EKG: Comments: My independent her potation the patient's EKG shows sinus with what does appear to be second-degree block. Occasional fusion beats. No acute ST elevation or depression. Overall rate is 78. OH interval varies. QRS duration is high normal at 07/24/2017 and QTc is long at 519 ms. But this EKG does look similar to a prior. Discharge Plan Dx/Rx/DC Orders Clinical Impression: Pulmonary edema, Acidosis, lactic, Respiratory failure with hypoxia, Hx of multiple myeloma, Acute hyponatremia Disposition Disposition: [facility] What to do if you have Problems For any increased pain, shortness of breath, bleeding, nausea or vomiting, chestpain, or any unexpected problems, contact your Primary Care Provider. Call [employer] [facility] ([phone]) or report to the closest Emergency Room. Call 911 if necessary. 12/16/222204 <Electronically signed by Dru Mayfield MD> Cosigner Signature (if applicable): CC: Dr. Krishna Mcdaniel, DO ~ Signed [facility] Work Phone: [phone] 740-820408-23-2023 Miscellaneous Notes* Telephone Encounter - Rachana Torres LPN - 12/15/2022 8:59 AM EDT [employer] auth # [id number]. Please send electronically. Rachana Torres LPN * Telephone Encounter - Rubi Camp LPN - 12/14/2022 4:48 PM EDT Unable to obtain [employer] auth until 12/17 or after,last dispense 11/23 Rubi Camp LPN [facility] Miscellaneous Notes* Telephone Encounter - Tabby Camarillo LPN - 11/25/2022 4:10 PM EDT Pt notified and voices understanding. he is aware to get lab drawn. Tabby Marquise HASSAN * Telephone Encounter - Katey Booker DO - 11/25/2022 3:43 PM EDT That is why I ordered the soluble transferrin receptor lab. It has not been drawn yet. It will helpdetermine the degree of his iron deficiency. In the meantime he can try OTC ferrous sulfate 325 mg once every other day. Katey Booker DO * Telephone Encounter - Veronika Barajas RN - 11/25/2022 2:[address] Jhony Connelly would like to know if you are concerned with iron levels (Ferritin 183, Iron 36, TIBC 288, Transferrin sat 12.5) and if any supplement is needed. Thank you. documented in this encounter[facility]08-[facility]23 History of Present illness Narrative* Veronika Barajas RN - 11/25/2022 1:19 PM EDT . documented in this encounter[facility] History of Present illness Narrative* Kyra Nair RD - 11/16/2022 2:50 PM EDT Oncology Nutrition Therapy Reassessment RECOMMENDED MALNUTRITION DIAGNOSIS: NO MALNUTRITION IDENTIFIED Nutrition Diagnosis: Behavioral-Environmental: Food and nutrition related knowledge deficit, related to, lack of prior exposure to information , as evidenced by new medical diagnosis Nutrition Intervention: -Consider meal prepping prior to treatment. - aim for 3 meals per day - insulin dependant - incorporate lean sources of protein/plant based proteins at meals - Stay well hydrated - sip on fluids throughout the day - Monitor BG for changes during treatment D/C Vitamin C Freestyle for BG Use bs/ salt rinse Nutrition Monitoring & Evaluation: PO intake Supplement tolerance Wt status Biochemical Markers Skin integrity Plan of care Patient Condition: Pt presents for nutrition counseling for multiple myeloma. Pt is currently pretreatment velcade. Ptdenies food allergies/intolerances. Per HPI: The patient is a 71 yo male with PMH significant for DM (peripheral sensory neuropathy) CKD stage I, psoriasis, mixed hyperlipidemia, HTN (essential).He had a several year history of diabetes and established with Dr. Vega about 3 years prior to initial consultation here I have confirmed and edited as necessary the hpi obtained by Dr. Booker on 09/24/22 and all reflect current status. Nutrition Assessment: Patient is stable from a nutritional standpoint. Patient's symptoms are: Hyperglycemia - insulin dependant - continues to be high Has concerns about managing diabetes and nutrition impact symptoms during treatment. Sore mouth on tongue. No n/v/d/c Mild taste changes. Xerostomia - chewing gum Using bs/salt rinse twice per day. Pt states he continues to have mouth pain it's like a pimple on my tongue Pt is wearing oxygen today with SOB with exertion. Discussed nutrition and has modified texture somewhat but still eating good. Pt has good support with . No change to nutrition intervention today. Readiness to Learn: Cognitive ability: Alert and oriented Motivation to learn: Eager Family support: High - Very involved in pt care Instruction provided to: Patient and Spouse Patient learns best by: Multiple Methods Factors affecting learning: None Physical limitations affecting learning: None Anthropometrics: HEIGHT/WEIGHT/BSA HEIGHT BODY SURFACE AREA WEIGHT 09/22/2022 2.68 323 lb 09/24/2022 2.69 323 lb 8 oz 10/28/2022 2.66 317 lb 8 oz 11/04/2022 2.66 317 lb 11/11/2022 2.67 319 lb 8 oz Estimated body mass index is 46.26 kg/m as calculated from the following: Height as of 02/17/22: 177 cm (5' 9.69). Weight as of 11/11/22: 144.9 kg (319 lb 8 oz). Resting Metabolic Rate: 2232 Weight Change: no significant changes Dosing Weight: 146 kg Estimated kilocalorie needs: 3493-8889 kilocalories determined by 15-18 kcal/kg Estimated protein needs: 116-146 grams determined by 0.8-1.0 g/kg Dosing weight Estimated fluid needs: 2200 milliliters based on 1 mL per kcal Nutrition Focused Physical Exam: Unable to perform exam due to potential for patient discomfort (physical/emotional), will re-attempt during reassessment. Potential Signs of Inflammation: chronic condition Allergies: Penicillins Medications: Current Outpatient Medications Medication Sig Dispense Refill predniSONE (DELTASONE) 20 mg tablet Take 2 tablets by mouth once daily for 3 days, THEN 1 tablet once daily for 3 days, THEN 0.5 tablets once daily for 3 days. 11 tablet 0 doxycycline monohydrate (MONODOX) 100 mg capsule Take 1 capsule by mouth twice daily for 10 days. 20 capsule 0 lenalidomide (REVLIMID) 25 mg capsule TAKE 1 CAPSULE BY MOUTH 1 TIME A DAY FOR 21 DAYS ON THEN 7 DAYS OFF 21 capsule 0 dexAMETHasone (DECADRON) 4 mg tablet Take 4 mg by mouth. 10 tablets with breakfast on day 22 of each cycle OTC PRODUCT Take by mouth once daily. Prost-metto L.acidophilus-L.rhamnosus (PROBIOTIC) 15 billion cell capsule Take 1 capsule by mouth once daily. cholecalciferol (VITAMIN D-3) 50 mcg (2,000 unit) tablet Take 2,000 Units by mouth once daily. acyclovir (ZOVIRAX) 400 mg tablet Take 1 tablet by mouth twice daily. 180 tablet 3 omeprazole (PRILOSEC) 40 mg capsule Take 1 capsule by mouth once daily. 90 capsule 5 ondansetron (ZOFRAN) 8 mg tablet Take 1 tablet by mouth every 8 hours as needed for nausea/vomiting. 30 tablet 2 fluticasone/umeclidin/vilanter (TRELEGY ELLIPTA INHALATION) Inhale 1 Puff as instructed once daily. mecobalamin/L-mefolate/B6 phos (METANX ORAL) Take 1 tablet by mouth twice daily. hydroCHLOROthiazide (HYDRODIURIL, ESIDRIX) 25 mg tablet Take 25 mg by mouth once daily. OMEGA-3 FATTY ACIDS ORAL Take 1 capsule by mouth once daily. Irbesartan-hydroCHLOROthiazide 300-12.5 mg per tablet Take 1 tablet by mouth once daily. diltiazem CD (CARDIZEM CD, CARTIA XT) 180 mg 24 hr capsule Take 180 mg by mouth once daily. Magnesium Oxide-Mg Amino Acid Chelate 300 mg cap Take 250 mg by mouth once daily. B-complex with vitamin C (VITAMIN B COMPLEX-C ORAL) Take 1 tablet by mouth once daily. (Patient nottaking: Reported on 10/05/2022) losartan-hydrochlorothiazide (HYZAAR) 100-25 mg per tablet Take 1 tablet by mouth once daily. (Patient not taking: Reported on 09/24/2022) CALCIUM CARBONATE/VITAMIN D3 (CALCIUM + D ORAL) Take 1 tablet by mouth once daily. albuterol HFA (PROVENTIL HFA, VENTOLIN HFA) 90 mcg/actuation inhaler Inhale 1 Puff as instructed asneeded. metFORMIN (GLUCOPHAGE) 1,000 mg tablet Take 1,000 mg by mouth twice daily with meals. aspirin, enteric coated (ASPIRIN, ENTERIC COATED) 81 mg EC tablet Take 81 mg by mouth once daily. atorvastatin (LIPITOR) 20 mg tablet Take 20 mg by mouth once daily. Multivitamin capsule Take 1 capsule by mouth once daily. insulin aspart U-100 (NOVOLOG U-100 INSULIN ASPART) 100 unit/mL soln Takes 22 units with breakfast,40 units at lunch, 38 units at dinner, 38 units before bed. insulin detemir U-100 (LEVEMIR) 100 unit/mL injection Injects 84 units at breakfast, 84 units at dinner, 84 units at bedtime. No current facility-administered medications for this visit. Need for Follow up: As needed Referred/Supervised by: Dr. Jhony ALAS Billing Type: Re-assess/15 min 3 units Billed Time: 45 minutes Signed by: Kyra Nair RD, LD documented in this encounter[facility]07-[facility]-2023 Miscellaneous Notes* Telephone Encounter - Rubi Camp LPN - 11/11/2022 4:33 PM EDT Pt. Notified will treat his SOB as exacerbation COPD with prednisone taper and doxycycline.Rx sent to pharmacy and take as directed., PSS scheduled for the iron studies , pt. Is aware. Rubi Camp LPN * Telephone Encounter - Jessenia Camacho - 11/11/2022 4:31 PM EDT Pt scheduled as directed below * Telephone Encounter - Rubi Camp LPN - 11/11/2022 4:17 PM EDT PSS please make lab appt for iron studies on 11/16 and notify pt. Rubi Camp LPN * Telephone Encounter - Katey Booker DO - 11/11/2022 4:04 PM EDT Also add iron studies--can draw when here 11/16. Katey Booker DO * Telephone Encounter - Katey Booker DO - 11/11/2022 3:09 PM EDT Will treat as exacerbation COPD with prednisone taper and doxycycline. Katey Booker DO * Telephone Encounter - Breezy Black RN - 11/11/2022 12:04 PM EDT Pt is in room 3 for velcade shot. Pt c/o BLE edema, SOB and dry cough since last Tuesday. No warmth or redness noted on BLE. Pt states swelling goes away after waking up. Denies CP. Vitals WNL. Pt has hx of COPD and states he has been using his PRN O2 at home and inhaler a few times this week. Pt had CT chest 11/02. Please advise, thank you. Breezy RN documented in this encounter[facility]07-[facility]-2023 Miscellaneous Notes* Telephone Encounter - Rubi Camp LPN - 11/09/2022 8:12 AM EDT [employer] auth # [id number] Patient has been identified by name and date of : Yes Requested Prescriptions Pending Prescriptions Disp Refills lenalidomide (REVLIMID) 25 mg capsule [Pharmacy Med Name: LENALIDOMIDE 25MG] 21 capsule 0 Sig: TAKE 1 CAPSULE BY MOUTH 1 TIME A DAY FOR 21 DAYS ON THEN 7 DAYS OFF RX INSTRUCTIONS: Patient aware RX will be sent to pharmacy. No need to notify patient. Rubi Camp LPN documented in this encounter[facility]07-13-2023 Miscellaneous Notes* Telephone Encounter - Cha Bautista RN - 11/04/2022 11:42 AM EDT Lab appointment notes updated. Cha Bautista RN * Telephone Encounter - Katey Booker DO - 11/04/2022 6:25 AM EDT Thank you. He doesn't need CBC/CMP today, but would like him to have the myeloma labs without the urine testing. Katey Booker DO * Telephone Encounter - Cha Bautista RN - 11/03/2022 11:11 AM EDT Images from the original note were not included. ORAL ANTI-CANCER AGENTS FOLLOW-UP PHONE CALL/VISIT Patient identified by name and date of . YES Patient is on cycle 1, week 1, day 7 of Lenolidomide (Revlimid) and velcade for Multiple Myeloma. SYMPTOM ASSESSMENT Headache: this morning but resolved. Patient feels his CPAP causes this. Visual Changes: No Dizziness: No Do you have any periods of confusion? No Mood changes: No Mouth or throat pain: No Appetite: no changes in appetite, appetite fair, portions have decreased in size Taste changes: No Nausea: No, does not feel sick to his stomach. Patient took a Zofran which didn't provide relief. Vomiting: No Heartburn: No. Weight gain/loss: Unable to assess Episodes of palpitations/chest discomfort/pressure/pain No Shortness of breath: No Cough: Yes; took robitussin last night which helped with the cough. Patient stated it feels like hehas a pulled a muscle. Patient stated its just a little lower than his umbilicus and to the left. Diarrhea: no Constipation: last BM was yesterday, denies straining. Patient is passing gas without difficulty. Bladder/Urinary Changes: None Pain: Yes, pain rated 5 on a scale of 0-10 (0=none, 10=worst). Location: below umbilicus to the left. Character: sore. Duration: last night . Frequency: occurs constantly. Patient stated the pain was worse this morning. If patient takes a deep breath it hurts a little bit and sitting to standing. Patient stated applying pressure to the area helps. Patient stated last night laying on his abdomen helped with the pain. Fever: No Chills: No Cold sensitivity: No Numbness/weakness: No Edema: No Skin changes: No Itching: No Yellowing of skin or eyes: No Musculoskeletal/joint changes/issues No Bleeding issues: No Activity Level (0-100%): decreased today, patient stated is tired because he was in the ED yesterday Do you need to take naps? No Chest CT was negative for PE. Patient stated his shoulder pain is gone today. Patient stated he took robitussin last night for his cough which helped him sleep last night and also alleviated the cough. Patient has a new constant sore pain that started last night, below his umbilicus, to the left.Patient stated pressing on the area helps alleviate the pain. Exacerbating factors are going from sitting to standing and taking a deep breath. Patient feels he pulled a muscle from coughing. Other than the new pain, patient stated he is just tired today and would like to nap today. Patient denies fever, chills, N/V, and last BM was yesterday. Labs copied/sniped into note. Please advise if patient still needs labs prior to treatment tomorrow. Does the patient need interventions or same day appointment: Will provide Dr. Booker with an update.Patient instructed to monitor symptoms and call with any worsening pain. ADDITIONAL FOLLOW UP: The next outreach call is due on: TBD and was scheduled Will follow-up as needed The following lab tests are due: CBC/CMP 11/04/22, will confirm if these are still needed prior to treatment Verified patient is aware of next appointment in the cancer center: Yes. Verified patient verbalized how to correctly refill the oral agent prescription. Yes Does the patient have any financial difficulties affording this medication? No Patient verbalizes understanding of when to seek Medical Attention? YES Patient verbalizes understanding of after-hours and weekend phone number? YES Patient verbalized importance of medication compliance in taking the oral agent as prescribed. Patient instructed to call if unable to comply. Cah Bautista RN * Telephone Encounter - Cha Bautista RN - 11/03/2022 10:16 AM EDT EMERGENCY ROOM CALL BACK Today's date: November 03, 2022 Called patient, no answer, left a VM requesting a call back. Cha Bautista RN [facility] Miscellaneous Notes* Telephone Encounter - Cha Bautista RN - 11/02/2022 2:57 PM EDT Patient informed of Dr. Booker's response, stated understanding. This nurse will fax this note and recent records to [facility]. Cha Bautista RN * Telephone Encounter - Katey Booker DO - 11/02/2022 1:55 PM EDT Ask him to go to [facility] ED for these symptoms. Needs to have PE ruled out. Katey Booker DO * Telephone Encounter - Cha Bautista RN - 11/01/2022 1:08 PM EDT Patient informed of CXR. Patient will stop in today and have completed. Cha Bautista RN * Telephone Encounter - Susan Agustin APRN.CNP - 11/01/2022 12:22 PM EDT Order in for CXR. Susan Agustin APRN.JANICE * Telephone Encounter - Cha Bautista RN - 11/01/2022 10:59 AM EDT TOXICITY CHECK SYMPTOM ASSESSMENT The patient is on Revlimid/Velcade, started 10/28/2022 Mouth or throat pain: Yes had a sore throat yesterday, resolved Appetite: no changes in appetite, appetite good Nausea: No Vomiting: No Heartburn: No. Weight gain/loss: No Episodes of palpitations/chest discomfort/pressure/pain No Shortness of breath: Yes with exertion. Pulse oximeter usually 90%, was 89% one morning after waking. Patient stated he has not used his oxygen. Cough: Yes; moist and occasional. Patient stated the cough started out as a dry cough on Tuesday andnow is raspy and is having a hard time clearing his throat of the phlegm and has a difficult timecoughing up phlegm. Patient denies wheezing. Diarrhea: no Constipation: yes, last BM yesterday afternoon. Has abdominal cramping today. Bladder/Urinary Changes: None Pain: Yes, pain rated 9 on a scale of 0-10 (0=none, 10=worst). Location: center of my back and around my right shoulder blade. Character: aching. Duration: started Tuesday . Frequency: occurs constantly. Fever: Temperature at 10:50 am was 99 F Chills: No Patient started revlimid/velcade on 10/28/22. Patient has c/o of a cough that started out dry last Tuesday and is now more raspy with difficulty coughing up phlegm and clearing the phlegm out of his throat. Patient denies wheezing. Patient has sinus pain/pressure along his eyebrows, post nasal drainage, and a stuffy nose. Patient's pulse oximeter has been around 90%, one morning it was 89%. Patient has not been using his oxygen. Patients temperature at 10:50 am was 99 F, denies chills. Patient uses his inhalers prescribed by pulmonology. Patient is asking what else he can take to alleviate symptoms. Patient was advised to try mucinex which he has on hand at home and a nasal spray. Monitor/call for worsening symptoms/fever of 100.4 F or higher. Patient also has c/o constant 9/10 aching pain in the center of my back and around my right shoulder blade that started Tuesday. Patient has been taking tylenol PRN which sometimes it helps and sometimes it doesn't. Patient stated he has a stiff back chair that he sits in which sometimes helps alleviate the pain. Patient denies any other alleviating or exacerbating factors. Patient denies any redness, bruising, or swelling on his back. Patient aware Dr. Booker is out of the office today but will return tomorrow. This nurse will fwd Ruddy and Dr. Booker and will call back if there are further instructions. Cha Bautista RN documented in this encounter[facility]07-[facility]23 Miscellaneous Notes* Telephone Encounter - Cha Bautista RN - 10/29/2022 9:51 AM EDT CYCLE 1/DAY 1 POST TREATMENT CALL Today's date: October 29, 2022 Treatment Regimen: Zometa, Velcade, Revlimid, and decadron C1D1 Date: 10/28/2022 Called patient to follow-up on symptom management. Spoke with patient SYMPTOM ASSESSMENT Neuro: Numbness/Weakness/Tingling intermittent numbness and tinging in his toes and hands. Patient has neuropathy at baseline, prior to chemo. CV/Resp: Shortness of breath yes, patient stated he has mild COPD and sees a refuse driver Dr. Mcdaniel for this. Patient has oxygen at home that he uses if his oxygen drops to 88% and Cough: Yes; dry GI/: Appetite: no changes in appetite, appetite good, Nausea no , and Fluid intake: good Integument: None Activity: Patient reported decreased energy level, patient stated he did not sleep well last night and was upat 5am today. Patient is feeling tired this morning. Pain: Yes, pain rated 8 on a scale of 0-10 (0=none, 10=worst). Location: right shoulder and up and down my spine. Character: aching. Duration: started yesterday. Frequency: shoulder is intermittent and spine is constant . Patient had left arm pain yesterday. Fever: No Chills: No Patient started zometa, revlimid, velcade, and decadron yesterday. Patient stated after his injection, he developed left arm pain, back pain up and down my spine, and hot flashes. Patient stated hewas sweating from his neck and down the middle of his back. Patient stated the left arm pain has resolved today. Patient also stated that he has 8/10 constant aching pain going up and down my spineand intermittent right shoulder and arm pain. Patient stated the pain is mostly in his bicep. Patient denies redness or swelling. Patient has been taking tylenol 1000 mg BID which helps with the pain. Patient also stated he has noticed a dry cough this morning and his SOB is a little worse at resttoday. Patients pulse oximeter as been 90-91%. Patient stated he has mild COPD and sees a refuse driver Dr. Mcdaniel at [facility]. Patients most recent evaluation was on 10/12/[address] Mcdaniel recommended thatpatient use his inhalers and oxygen when needed. Patient denies fever, chills, chest pain/pressure,pain with breathing, irregular heartbeats, or pain in his left arm/jaw/neck today. Patient was advised to monitor symptoms and pulse oximeter and to go to ED if he develops chest pain/pressure, pain with breathing, fever, chills, pain/tingling going down his left arm/neck/jaw. Patient stated underst anding. Patient aware this nurse will fwd to Dr. Booker's covering physcian and will call back if there are any further questions/instructions. Any new referrals needed? No Reinforced CURRENT treatment education based on current and anticipated symptoms. Discussed port/line care and patient verbalizes understanding: Not Applicable Patient instructed to contact office or after hours Hematology/Oncology fellow for: temperature ? 100.4; questions or concerns. Patient verbalized understanding of when to seek medical attention and after hours number protocol. Cha Bautista RN * Telephone Encounter - Cha Bautista RN - 10/29/2022 9:47 AM EDT CYCLE 1/DAY 1 POST TREATMENT CALL Today's date: October 29, 2022 Treatment Regimen: Revlimid, Velcade, decadron C1D1 Date: 10/28/2022 Called patient to follow-up on symptom management, there was no answer, left a VM requesting a callback. Cha Bautista RN documented in this encounter[facility]07-06-2023 Miscellaneous Notes* Telephone Encounter - Cha Bautista RN - 10/28/2022 12:40 PM EDT [facility] Care Coordination FOLLOW-UP NOTE Patient identified by name and date of . YES Spoke to patient Summary: (Reason for follow-up) Patient called with questions related to his first treatment today. Reviewed the rationale for tylenol (Zometa today), decadron, and when to take Zofran. Reviewed when patients off week will be, start of C2, and when to take decadron on D22. Patient took Revlimid this morning and so far he feels well. Care Coordination Plan: Will follow up for C1D1 call tomorrow. Cha Bautista RN October 28, 2022 documented in this encounter[facility]07-[facility]-2023 Miscellaneous Notes* Telephone Encounter - Marisol Hollis RN - 10/28/2022 8:48 AM EDT Please sign orders for zometa and velcade treatment today. documented in this encounterEast [facility]07-06-2023 Miscellaneous Notes* Telephone Encounter - Jose Gamez - 10/28/2022 8:45 AM EDT This is the 1st-time treatment report for this patient provided by myself. This patient has Medicare along with [place] Medicare Supplemental. The patient will have $0 financial responsibility while in treatment. documented in this encounterEast [facility]06-29-2023 History and physical note * Cha Bautista RN - 10/21/2022 12:03 PM EDT This visit was completed via telephone. Cha Bautista RN documented in this encounterEast [facility]06-29-2023 Nurse Note* Cha Bautista RN - 10/21/2022 11:14 AM EDT ONCOLOGY PATIENT EDUCATION NOTE TOPIC: Chemotherapy, Medications: Velcade READINESS TO LEARN: COGNITIVE ABILITY: Alert and oriented MOTIVATION TO LEARN: Interested FAMILY SUPPORT: High - Very involved in pt care INSTRUCTION PROVIDED TO: Patient and Spouse INSTRUCTION PROVIDED BY: Nurse Coordinator PATIENT LEARNS BEST BY: Multiple Methods FACTORS AFFECTING LEARNING: None PHYSICAL LIMITATIONS AFFECTING LEARNING: None LEARNING RESPONSE DIAGNOSIS: MM METHOD OF INSTRUCTION: Individual instruction Written instruction - handouts Verbal instruction PATIENT/FAMILY RESPONSE: Verbalizes understanding of: CHEMOTHERAPY-Regimen, toxicity and side effects FOLLOW UP PLAN: Patient instructed to call with any further issues Recommend - Recommend continued instruction and follow up as directed Follow up phone call. Contact information given. SUPPLEMENTAL MATERIAL: Written material was provided at this visit with the following information: - Chemotherapy education was provided by a pharmacist NO - Side effect management information was provided/discussed including but not limited to: abdominaldiscomfort, anemia, appetite changes, arthralgia, bowel habit changes, diet, electrolyte disturbances, fatigue, infection, mouth hygiene, nausea/vomitting, neutropenia, peripheral neuropathy, rash, skin changes, taste changes, thrombocytopenia YES - Provided important phone numbers and contacts during and after hours. YES - Provided information on symptoms that require immediate assistance. YES - Provided Chemotherapy when to call handouts YES - Preventing infection. YES - Treatment schedule and confirmation of appointment times. YES - Available support groups. YES - The importance of contraception during the course of chemotherapy YES - Neutropenic fever protocol discussed with patient, which included the importance of reporting anyfever of 100.4F (38.0C) or greater to the healthcare team as noted on the provided wallet card and/or magnet. YES Time Spent: 90 minutes REFERRAL (RECOMMENDATION): Nutrition Cha Bautista RN * Cha Bautista RN - 10/21/2022 11:13 AM EDT Director Talent Pre Chemo Patient identified by name and date of . YES Confirmed date and time for chemotherapy ? YES Other appointments (labs, imaging) discussed? 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 YES Described the infusion room and what to expect. (What to wear, what to bring [iPad, books] amount of time treatment can take, meals and CC options for food) YES Note: Discussed whether the patient can eat prior to labs and treatment. YES Who is driving you to and from treatment? Spouse Discussed why it is important to bring someone with you. Yes, for the first treatment. Patient doesnot currently drive d/t neuropathy. Resources discussed (music therapy, Art therapy, pet therapy, etc.) NO Education on chemotherapy (drug, side effects) discussed and that the patient will be receiving a C1D1 call within 7 days of treatment. YES Other topics discussed, interventions needed: Cha Bautista RN * Cha Bautista RN - 10/21/2022 11:10 AM EDT ORAL ANTI-CANCER AGENTS EDUCATION patient and spouse here today for oral medication education for Lenolidomide (Revlimid) for Multiple Myeloma READINESS TO LEARN Cognitive Ability: Alert and oriented Motivation to Learn: Interested Family Support: High - Very involved in pt care Instruction Provided to: Patient and Spouse Patient learns best by: Multiple Methods Factors affecting learning: None Physical limitation affecting learning: None COOK ASSESSMENT: 1.) Verified that patient knows that the oral agents are for cancer and are taken by mouth. Yes 2.) Medication reconciliation completed during visit. Yes 3.) Patient is able to swallow pills. Yes 4.) Patient is able to read the drug label/information. Yes 5.) Patient is able to open the medication bottles and packages. Yes 6.) Has patient taken other pills for cancer? No 7.) Is patient experiencing any symptoms that would affect their ability to keep down pills, for example nausea or vomiting? No 8.) Verified that patient understands prescription delivery, benefit investigation and refill process. Yes PATIENT EDUCATION: 1.) Verified that patient attended individualized instruction on chemotherapy taught by a nurse. Yes 2.) Verified that patient received Chemotherapy Safety in the Home handout, ChemoCare Medication Information handout: revlimid, Specialty Pharmacy Information : yes, Specialty Pharmacy phone numbers,and [facility] Oral Chemotherapy booklet: Yes DRUG-SPECIFIC EDUCATION: 1.) Verified that patient knows the drug name. Yes 2.) Verified patient understands the dose and schedule of oral chemo agent:with water, with or without food. Yes 3.) Verified patient knows what to do if a medication dose is missed. Yes 4.) Verified patient understands where to store the drug. Yes 5.) Verified patient understands potential side effects and how to manage them. Yes Nausea , Constipation, Diarrhea, Fever / Chills / Risk for Neutropenic Fever, Neutropenia, Thrombocytopenia, Anemia, Fatigue, and Rash 6.)Verified that patient understands handling precautions of oral chemo agent. Yes 7.) Verified that patient understands when and whom to call with questions. Yes 8.) Verified that patient understands where and how to return drug. Yes EVALUATE: Patient was able to demonstrate an understanding of all the above education using the teach-back method. Yes Patient instructed to call us with any questions, concerns, and/or unresolved symptoms. Will continue to follow up with patient and provide reinforcement of teaching topics as needed. Total time spent with patient: 90 minutes Total time spent on encounter: 100 minutes Cha Bautista RN documented in this encounterEast [facility]06-20-2023 Instructions* Patient Instructions* Kyra Nair RD - 10/12/2022 5:06 PM EDT Nutrition Intervention: -Consider meal prepping prior to treatment. - aim for 3 meals per day - insulin dependant - incorporate lean sources of protein/plant based proteins at meals - Stay well hydrated - sip on fluids throughout the day = drink more water - Monitor BG for changes during treatment D/C Vitamin C documented in this encounterEast [facility]06-[facility]-2023 History of Present illness Narrative* Kyra Nair RD - 10/12/2022 10:13 AM EDT Oncology Nutrition Therapy Initial Assessment RECOMMENDED MALNUTRITION DIAGNOSIS: NO MALNUTRITION IDENTIFIED Nutrition Diagnosis: Behavioral-Environmental: Food and nutrition related knowledge deficit, related to, lack of prior exposure to information , as evidenced by new medical diagnosis Nutrition Intervention: -Consider meal prepping prior to treatment. - aim for 3 meals per day - insulin dependant - incorporate lean sources of protein/plant based proteins at meals - Stay well hydrated - sip on fluids throughout the day - Monitor BG for changes during treatment D/C Vitamin C Nutrition Monitoring & Evaluation: PO intake Supplement tolerance Wt status Biochemical Markers Skin integrity Plan of care Patient Condition: Pt presents for nutrition counseling for multiple myeloma. Pt is currently pretreatment velcade. Ptdenies food allergies/intolerances. Per HPI: The patient is a 71 yo male with PMH significant for DM (peripheral sensory neuropathy) CKD stage I, psoriasis, mixed hyperlipidemia, HTN (essential).He had a several year history of diabetes and established with Dr. Vega about 3 years prior to initial consultation here I have confirmed and edited as necessary the hpi obtained by Dr. Booker on 09/24/22 and all reflect current status. Nutrition Assessment: Patient is stable from a nutritional standpoint. Patient's symptoms are: Hyperglycemia - insulin dependant Has concerns about managing diabetes and nutrition impact symptoms during treatment. Diet History (24hr recall): Breakfast - old fashioned shredded wheat with bananan, 2% milk, coffee Snack - Lunch - cubed steak and gravy, red potatoes, green beans Snack - Dinner - grilled chicken sandwich Snack - popcorn no butter, with oil and salt Beverages - unsweetened tea, coffee, water Alcohol- occasional Vitamins/Supplements - Educational materials provided: Creative Eating during Illness and Recovery Discussed eating healthy with carb counting and liberalizing based on symptoms. Pt has good communication with PCP in case of insulin changes needed. He has in the past been instructed to follow a 45g carb/meal diet and we discussed that this is likely not achievable for him during his treatment. Will discuss carb counting in the future as needed depending on how treatment is going for him. Encouraged three meals per day, sticking to routine even if appetite is altered, and avoiding concentrated sweets. Pt verbalizes understanding. Readiness to Learn: Cognitive ability: Alert and oriented Motivation to learn: Eager Family support: High - Very involved in pt care Instruction provided to: Patient and Spouse Patient learns best by: Multiple Methods Factors affecting learning: None Physical limitations affecting learning: None Anthropometrics: HT/WT/BMI HEIGHT WEIGHT BODY MASS INDEX 02/17/2022 5' 9.685 151.728 kg 48.43 09/22/2022 146.512 kg 46.77 09/24/2022 146.739 kg 46.84 Estimated body mass index is 46.84 kg/m as calculated from the following: Height as of 02/17/22: 177 cm (5' 9.69). Weight as of 09/24/22: 146.7 kg (323 lb 8 oz). Resting Metabolic Rate: 2232 Weight Change: no significant changes Dosing Weight: 146 kg Estimated kilocalorie needs: 3601-9433 kilocalories determined by 15-18 kcal/kg Estimated protein needs: 116-146 grams determined by 0.8-1.0 g/kg Dosing weight Estimated fluid needs: 2200 milliliters based on 1 mL per kcal Nutrition Focused Physical Exam: Unable to perform exam due to potential for patient discomfort (physical/emotional), will re-attempt during reassessment. Potential Signs of Inflammation: chronic condition Allergies: Penicillins Medications: Current Outpatient Medications Medication Sig Dispense Refill dexAMETHasone (DECADRON) 4 mg tablet Take 4 mg by mouth. 10 tablets with breakfast on day 22 of each cycle OTC PRODUCT Take by mouth once daily. Prost-metto L.acidophilus-L.rhamnosus (PROBIOTIC) 15 billion cell capsule Take 1 capsule by mouth once daily. cholecalciferol (VITAMIN D-3) 50 mcg (2,000 unit) tablet Take 2,000 Units by mouth once daily. acyclovir (ZOVIRAX) 400 mg tablet Take 1 tablet by mouth twice daily. 180 tablet 3 omeprazole (PRILOSEC) 40 mg capsule Take 1 capsule by mouth once daily. 90 capsule 5 ondansetron (ZOFRAN) 8 mg tablet Take 1 tablet by mouth every 8 hours as needed for nausea/vomiting. 30 tablet 2 lenalidomide (REVLIMID) 25 mg capsule Take 1 capsule by mouth once daily. for 21 days. Then off 1 week. 21 capsule 0 fluticasone/umeclidin/vilanter (TRELEGY ELLIPTA INHALATION) Inhale 1 Puff as instructed once daily. mecobalamin/L-mefolate/B6 phos (METANX ORAL) Take 1 tablet by mouth twice daily. hydroCHLOROthiazide (HYDRODIURIL, ESIDRIX) 25 mg tablet Take 25 mg by mouth once daily. OMEGA-3 FATTY ACIDS ORAL Take 1 capsule by mouth once daily. Irbesartan-hydroCHLOROthiazide 300-12.5 mg per tablet Take 1 tablet by mouth once daily. diltiazem CD (CARDIZEM CD, CARTIA XT) 180 mg 24 hr capsule Take 180 mg by mouth once daily. Magnesium Oxide-Mg Amino Acid Chelate 300 mg cap Take 250 mg by mouth once daily. B-complex with vitamin C (VITAMIN B COMPLEX-C ORAL) Take 1 tablet by mouth once daily. (Patient nottaking: Reported on 10/05/2022) losartan-hydrochlorothiazide (HYZAAR) 100-25 mg per tablet Take 1 tablet by mouth once daily. (Patient not taking: Reported on 09/24/2022) ascorbic acid, vitamin C, (VITAMIN C) 500 mg tablet Take 500 mg by mouth once daily. CALCIUM CARBONATE/VITAMIN D3 (CALCIUM + D ORAL) Take 1 tablet by mouth once daily. albuterol HFA (PROVENTIL HFA, VENTOLIN HFA) 90 mcg/actuation inhaler Inhale 1 Puff as instructed asneeded. metFORMIN (GLUCOPHAGE) 1,000 mg tablet Take 1,000 mg by mouth twice daily with meals. aspirin, enteric coated (ASPIRIN, ENTERIC COATED) 81 mg EC tablet Take 81 mg by mouth once daily. atorvastatin (LIPITOR) 20 mg tablet Take 20 mg by mouth once daily. Multivitamin capsule Take 1 capsule by mouth once daily. insulin aspart U-100 (NOVOLOG U-100 INSULIN ASPART) 100 unit/mL soln Takes 22 units with breakfast,40 units at lunch, 38 units at dinner, 38 units before bed. insulin detemir U-100 (LEVEMIR) 100 unit/mL injection Injects 84 units at breakfast, 84 units at dinner, 84 units at bedtime. No current facility-administered medications for this visit. Need for Follow up: As needed Referred/Supervised by: Dr. Jhony ALAS Billing Type: Initial Assess/15 min 4 units Billed Time: 60 minutes Signed by: Kyra Nair RD, GITA documented in this encounterEast [facility]06-08-2023 Miscellaneous Notes* Telephone Encounter - Dangelo Underwood - 09/30/2022 9:30 AM EDT Zometa added to appointment notes * Telephone Encounter - Katey Booker DO - 09/29/2022 5:23 PM EDT Thank you. Orders filed in [place]. Can start Zometa day 1 of chemotherapy. Katey Booker DO * Telephone Encounter - Cha Bautista RN - 09/29/2022 4:09 PM EDT Per dental clearance form from Dr. Omari Ewing, patient is free from active disease and infection. Form will be scanned into patients chart. Please advise if/when patient will be starting Zometa and file beacon orders. Patient will be starting chemo on 10/28/22. Thank you. Cha Bautista RN documented in this encounterEast [facility]06-02-2023 Miscellaneous Notes* Telephone Encounter - Cha Bautista RN - 09/24/2022 1:16 PM EDT Patient was given a My Journey binder with chemocare information, office contact information, thermometer, and additional chemotherapy resource booklets. Patient aware a nurse will review on scheduled appointment date. Cha Bautista RN documented in this encounterEast [facility]06-02-2023 History of Present illness Narrative* Katey Booker, DO - 09/24/2022 11:52 AM EDT Diagnosis: 1) IgA lambda multiple myeloma. HPI: The patient is a 71 yo male with PMH significant for DM (peripheral sensory neuropathy) CKD stage I, psoriasis, mixed hyperlipidemia, HTN (essential). He had a several year history of diabetes and established with Dr. Vega about 3 years prior to initial consultation here. A chemistry panel revealed an increase in the globulin fraction and therefore a serum protein electrophoresis and immunofixation was obtained. The patient was found to have a low level IgA lambda monoclonal protein with the M spike quantified at 0.7 g/dL. Urine protein electrophoresis was noted to have an atypical gamma without any quantification. The patient's serum chemistries were significant for creatinine of 1.0 mg/dL and a calcium of 8.6 mg/dL. The total protein was 7.8 g/dL with an albumin of 3.2 g/dL and a globulin fraction of 4.6 g/dL yielding an A/G ratio 0.7. Hepatocellular enzymes were normal. Sister diagnosed with retro-orbital lymphoma. Patient had daughter who at age 24 in 2003 from acute leukemia. Presents for ongoing oncologic management. Interim history: He had whole body PET. Chronic unchanged back pain. He has baseline neuropathy of the fingertips and feet. Numbness in right foot prevents him from driving because he can't feel the pedals. Most recent A1c was 7.5%. PMH, medications and allergies personally reviewed by me today. Any changes documented in appropriate section. ROS: Constitutional: No fever. No drenching night sweats. Normal appetite. No unexplained weight loss. No significant fatigue. Neuro: No recent JONES, vertigo, dizziness. No recent change in voice, vision or hearing. Resp: No cough, wheeze of hemoptysis. No shortness of breath at rest. CVS: No exertional chest pain, PND or orthopnea. No extremity swelling/edema. No symptoms of claudication. No painful or tender varicose veins. GI: No dysgeusia. No symptoms of stomatitis. No dysphagia or odynophagia. No reflux, n/v, change inbowel habits. No abdominal pain, bloating or distension. No black or bloody stools. : No dysuria or gross hematuria. No symptoms of bladder outlet obstruction. Endo: No hot flashes. No polyuria or polydipsia. No heat or cold intolerance. Musculoskeletal: See HPI. Derm: No current rash. No history of jaundice. No diffuse pruritis. Heme: No unusual bleeding and unexplained bruising. Psych: Normal mood. PHYSICAL EXAM: Vitals: Blood pressure 170/66, pulse 84, temperature 36.8 C (98.2 F), temperature source Temporal, weight (!) 146.7 kg (323 lb 8 oz), SpO2 92 %. Well-appearing and in no acute distress. EYES: Sclerae are anicteric bilaterally. NECK: Supple. LYMPHATIC: There is no palpable cervical or supraclavicular adenopathy. RESPIRATORY: Inspiratory breath sounds are of normal intensity in all ambrose. No rales, wheezes or rhonchi. CARDIOVASCULAR: Rhythm is regular. ABDOMEN: The abdomen is nondistended. No tenderness. Extremities: No swelling or edema. SKIN: No jaundice or rash. No petechiae. NEUROLOGIC: turf grower II-XII are grossly intact. No focal motor weakness. LABS: Component Latest Ref Rng & Units 01/25/2022 WBC 3.70 - 11.00 k/uL 10.36 RBC 4.20 - 6.00 m/uL 5.24 Hemoglobin 13.0 - 17.0 g/dL 13.6 Hematocrit 39.0 - 51.0 % 42.7 MCV 80.0 - 100.0 fL 81.5 MCH 26.0 - 34.0 pg 26.0 MCHC 30.5 - 36.0 g/dL 31.9 RDW-CV 11.5 - 15.0 % 16.1 (H) Platelet Count 150 - 400 k/uL 352 MPV 9.0 - 12.7 fL 9.4 Neut% % 72.9 Abs Neut (ANC) 1.45 - 7.50 k/uL 7.55 (H) Lymph% % 17.1 Abs Lymph 1.00 - 4.00 k/uL 1.77 Radford% % 7.3 Abs Radford <0.87 k/uL 0.76 Eosin% % 1.6 Abs Eosin <0.46 k/uL 0.17 Baso% % 0.5 Abs Baso <0.11 k/uL 0.05 Immature Gran % % 0.6 IMMATURE GRANS (ABS) <0.10 k/uL 0.06 NRBC /100 WBC 0.0 Absolute nRBC <0.01 k/uL <0.01 DTYPE Auto Protein, Total 6.3 - 8.0 g/dL 7.3 Albumin 3.9 - 4.9 g/dL 3.7 (L) Calcium 8.5 - 10.2 mg/dL 9.3 Bilirubin, Total 0.2 - 1.3 mg/dL 0.5 Alkaline Phosphatase 38 - 113 U/L 106 AST 14 - 40 U/L 17 ALT 10 - 54 U/L 19 Glucose 74 - 99 mg/dL 117 (H) BUN 9 - 24 mg/dL 22 Creatinine 0.73 - 1.22 mg/dL 0.77 Sodium 136 - 144 mmol/L 136 Potassium 3.7 - 5.1 mmol/L 4.0 Chloride 97 - 105 mmol/L 101 CO2 22 - 30 mmol/L 25 Anion Gap 9 - 18 mmol/L 10 eGFR >=60 mL/min/1.73m 97 B2 Microglobulin <3.1 mg/L 2.4 Component Latest Ref Rng & Units 05/15/2015 05/17/2016 10/30/2018 06/08/2019 12/06/2019 07/29/2020 01/27/2021 07/28/2021 01/25/2022 Protein, Total 6.3 - 8.0 g/dL 6.9 7.2 6.7 6.9 6.6 6.9 6.7 Albumin 3.37 - 4.23 g/dL 3.53 3.54 3.25 (L) 3.55 3.50 3.64 3.65 3.56 3.61 Alpha 1 Globulin 0.18 - 0.31 g/dL 0.21 0.29 0.26 0.26 0.24 0.22 0.22 0.32 (H) 0.30 Alpha 2 Globulin 0.52 - 0.97 g/dL 0.66 0.72 0.72 0.72 0.71 0.72 0.67 0.81 0.79 Beta Globulin 0.84 - 1.36 g/dL 0.96 1.05 0.98 0.99 0.91 1.00 0.95 1.02 1.06 Gamma Globulin 0.70 - 1.44 g/dL 1.54 (H) 1.59 (H) 1.50 (H) 1.38 1.24 1.32 1.21 1.39 1.54 (H) Interpretation (Prot Electro) No definitive M protein is identified on protein electrophoresis. SEECOMMENT SEE COMMENT SEE COMMENT SEE COMMENT SEE COMMENT SEE COMMENT SEE COMMENT An M protein is identified on protein electrophoresis. (A) An M protein is identified on protein electrophoresis. (A) M-Protein Location Gamma fraction Gamma fraction Gamma fraction Gamma fraction Gamma fraction Gammafraction Gamma fraction Gamma Fraction 1 Gamma Fraction 1 M-Protein Concentration <=0.00 g/dL 0.37 (H) 0.39 (H) 0.53 (H) 0.50 (H) 0.50 (H) 0.43 (H) 0.49 (H) 0.53 (H) 0.46 (H) SPE Staff Review Reviewed by Harsh Dang MD ([id number]) Reviewed by Harsh Dang MD ([id number]) Reviewed by Bianka Rdz MD ([id number]) Reviewed by Gene Reid MD. ([id number] Reviewed by Alta Collazo M.D., Ph.D ([id number]) Reviewed by Bianka Rdz MD ([id number]) Reviewed by Bianka Rdz MD ([id number]) Reviewed by Bianka Rdz MD Reviewed by Venkata Schrader MD, Ph.D ([id number]) Interpretation Comment for Protein Electrophoresis See separate immunofixation report for characterization of monoclonal gammopathy. . . . See separate immunofixation report for characterization of monoclonal gammopathy. Component Latest Ref Rng & Units 10/30/2014 05/15/2015 05/17/2016 07/28/2021 07/28/2021 01/25/2022 01/25/2022 11:05 AM 11:05 AM 11:38 AM 11:38 AM [place]amois Free, Serum 3.3 - 19.4 mg/L 14.2 23.4 24.0 (H) 22.4 (H) 20.6 (H) 21.8 (H) 21.3 (H) Lambda Free, Serum 5.7 - 26.3 mg/L 36.0 (H) 42.7 (H) 55.3 (H) 56.5 (H) 57.1 (H) 63.7 (H) 64.3 (H) K/L Ratio, Serum 0.26 - 1.65 0.39 0.55 (L) 0.43 0.40 0.36 0.34 0.33 Component Latest Ref Rng & Units 01/27/2022 Albumin %, 24 Hr Urine % 45.20 Alpha 1 Globulin %, 24 Hr Ur % 4.03 Alpha 2 Globulin %, 24 Hr Ur % 19.27 Beta Globulin %, 24 Hr Ur % 16.83 Gamma Globulin %, 24 Hr Ur % 14.67 Interpretation (UG24) No definitive M protein is identified on protein electrophoresis. No definitive M protein is identified on protein electrophoresis. Staff Review (UG24) Reviewed by Dr. Danielle Rocha MD Component Latest Ref Rng & Units 01/27/2022 Protein, Timed Urine <0.15 g/24 Hr 0.20 (H) Period hr 24 Urine Volume 24 hour mL 2,200 Component Latest Ref Rng & Units 01/27/2022 Result (PA) No M protein is identified. M protein is present. (A) Interpretation (PA) Atypical restricted bands are present in the IgA and lambda regions, with an additional atypical band in the lambda region. 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 Staff Review ([facility]) Reviewed by Dr. Danielle Rocha MD IMAGING: Whole-body PET 09/06/2022 demonstrated scattered increase areas of FDG uptake in the thoracic and lumbar spine as well as the right iliac wing, posterior ilium and left acetabulum. Calculated maximum SUV was 4.2. This fulfilled quantitative criteria for viable osseous neoplasm. PATHOLOGY: BM biopsy 09/22/2022: A-C. Bone marrow, aspirate smear and core biopsy, with clot section: - Lambda monotypic plasma cell neoplasm involving ~20% of the marrow cellularity. - See comment. D. Peripheral blood smear: - Neutrophilic leukocytosis. - Normocytic anemia. - Mild thrombocytosis. FISH from 2019: RESULT: ABNORMAL hybridization pattern (see interpretation). Anomaly Result 1p32 (CDKN2C): Normal pattern 1q21 (CKS1B): Normal pattern +9 (CEP9): Normal pattern t(11;14)(q13;q32)(IGH/CCND1): Positive (78/100) 13q14 (RB1): Normal pattern 14q32 (IGH): Positive for IGH translocation (78/100) +15 (CEP15): Normal pattern 17p13 (TP53): Normal pattern INTERPRETATION: These findings demonstrate a plasma cell population with t(11;14)/IGH-CCND1. These findings are consistent with the presence of a plasma cell neoplasm. In plasma cell myeloma, these findings are associated with standard risk disease. Correlation with metaphase cytogenetic analysis is suggested. 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 -Initial bone marrow biopsy 20% PCs in the core specimen. -PET 2019 revealed no suspicious skeletal lesions. -PET now indicates lesions defining multiple myeloma. Reviewed images with him and his . -Reviewed bone marrow results. Still about 20% PC. -Standard risk disease by FISH panel 2019. Current pending. -Significant baseline sensory neuropathy. -Myeloma frailty score is 1 (intermediate). -Recommended therapy with VRd with potential to modify based on potential worsening of sensory neuropathy. -I discussed the natural history, treated course, and prognosis of standard risk myeloma with the patient and . Also discussed the rationale, logistics, potential risks (including but not limitedto progression of neuropathy, cytopenias, injection site reactions, shingles, nausea, diarrhea rash, infectious complications and the small potential for as a consequence of severe toxicity/complications of therapy), benefits and alternatives, as well as the personnel involved in the administration of VRd. I answered his questions in detail and he verbalized understanding and agreed with the recommended therapy. Please see the electronic consent document for details of doses and schedule. -Discussed bone health issues and the role of bisphosphonate therapy. -Didn't take BP meds this am. Plan: -Hepatitis remote panel today. -Chemotherapy teaching. -Begin Velcade 10/28 or 10/29 (has a trip planned). -CBC/CMP/Myeloma labs/Straight back day 1. -CBC/CMP days 8 and 15. -OV/CBC/CMP/Myeloma labs for cycle #2. -Modify therapy if <OH following cycle #2 or significant progression of neuropathy. -Rx acyclovir. -Rx for lenalidomide printed. -He will continue low dose ASA. -Dexamethasone 40 mg PO days 1, 8, 15 and 22. Alternative could be 20 mg on days 1, 2, 8, 9, 15, 16, 22 and 23 if doesn't tolerate 40 mg at a time well. -Add PPI since will be on dex and ASA. -Rx Zofran. -Provided dental clearance form. -Advised him to contact his PCP regarding potential need for SSI when takes dexamethasone. Portions of this documentation were copied and pasted from previous office visit notes in order to provide a cohesive continuity of the history. The note has been reviewed and edited and updated as necessary. I spent a total of 60 minutes on the date of the service which included preparing to see the patient, [id number] patient care, obtaining and/or reviewing separately obtained history, performing a medically appropriate examination, counseling and educating the patient/family/caregiver, ordering med ications, tests, or procedures, independently interpreting results (not separately reported), and communicating results to the patient/family/caregiver. Katey Booker DO documented [facility] Procedure note* Susan Agustin APRN.CNP - 09/22/2022 1:44 PM EDTAssociated Order(s): BONE MARROW BIOPSY Post-Procedure Diagnose(s): Smoldering multiple myeloma BEDSIDE PROCEDURE NOTE BONE MARROW BIOPSY Performed by: Susan Agustin APRN.CNP Authorized by: Susan Agustin APRN.CNP Where was Patient When this Procedure was Performed [facility] Ambulatory Informed Consent Consent Obtained: Written Diller Protocol A moment to CARE was completed. SIGN IN Personnel directly involved with the procedure wore the appropriate PPE. Special Equipment: Yes Patient/Surrogate Stated/Verified: Patient name, Date of , Relevant allergies and Intended procedure TIME OUT Intended patient and procedure match the source document(s). Consent documented and matches the intended procedure. Relevant labs, photos, and/or imaging studies have been reviewed. Correct side/site marked and visible. Medications required for procedure verified. No fire risk assessment and interventions applicable. No implant(s) inserted. Pre-procedure Details: The area was prepped with povidone Iodine (Betadine) and allowed to dry. A sterile partial body drape was applied following the usual aseptic technique. Medications: Local Anesthesia (see MAR): Lidocaine 1% Procedure Details: Patient Position: Left lateral decubitus Aspiration Laterality: Unilateral Aspiration Site: Right posterior superior iliac crest Biopsy Laterality: Unilateral Biopsy Site: Right posterior sperior iliac crest . Year Up biopsy system was used. Using aseptic technique, bone marrow aspiration was performed. A touch prep was taken. Core biopsy was obtained 0.8 cm. The core biopsy was confirmed. Assisting Clinician(s): Dr. Booker present. Post-procedure Details: Patient tolerated the procedure well with no immediate complications Estimated Blood Loss: Scant Specimens Sent: bone marrow analysis, bone marrow chromosome analysis, DNA extraction and flow cytometry Teaching Complete: Bone Marrow Biopsy Post-procedure teaching complete Post-procedure care was reviewed and explained. Patient instructed to communicate complaints of redness, swelling, increased or unresolved pain, bleeding chills, bruising, and/or fever. Patient verbalized understanding. SIGN OUT All instruments, equipment, possible retained foreign bodies accounted for. SIGNATURE: Susan Agustin APRN.CNP PATIENT NAME: Cyn James JR DATE: September 22, 2022 TIME: 1:44 PM documented in this encounterEast [facility] History of Present illness Narrative* Tabby Camarillo LPN - 09/22/2022 1:07 PM EDT Pt discharged to home with after BMBX with dry sterile dressing in place. No drainage noted. Post-procedure care reviewed with patient. Pt to call with any complaints of redness, swelling, increased or unresolved pain, bleeding, chills, bruising, and/or fever. Pt verbalized understanding. documented in this encounterEast [facility]05-[facility]23 Miscellaneous Notes* Telephone Encounter - Rubi Camp LPN - 09/13/2022 3:27 PM EDT Spoke with pharmacist, he said 1 dose did not concern him. Pt. Aware. Rubi Camp LPN * Telephone Encounter - Katey Booker DO - 09/13/2022 3:01 PM EDT I need to know exactly what the pharmacist concern was. No interaction popped up when I sent the prescription for it. Katey Booker DO * Telephone Encounter - Rubi Camp LPN - 09/13/2022 2:45 PM EDT Spoke with pt. He stated the pharmacist had a concern about the Percocet interaction. Pt. Has mild COPD uses a rescue inhaler PRN and Trelegy Ellipta inhaler daily. Rubi Camp LPN * Telephone Encounter - Dangelo Deng Pss - 09/13/2022 1:35 PM EDT Patient states pharmacist had a concern with an interaction with a rx he just picked up for bone marrow biopsy with medications he is currently taking. Requesting to speak to clinical. documented in this encounterEast [facility]05-[facility]23 Miscellaneous Notes* Telephone Encounter - Mana Hernandez - 08/30/2022 9:25 AM EDT Spoke with patient and [facility], scheduling PET CT (09/14/22 @ 10:00 AM) & follow up. Faxed required documents to [facility] and scanned into [employer] signed by Mana Hernandez at 08/30/2022 9:54 AM EDT * Telephone Encounter - Dangelo Underwood - 08/28/2022 1:25 PM EDT Unable to fax information to [facility] - per [facility]. Do not have fax #. * Telephone Encounter - Dangelo Underwood - 08/27/2022 12:39 PM EDT Spoke with patient. He would still like to continue with the process of Pet Scan @ [facility]. He will wait to hear from us regarding scheduling. * Telephone Encounter - Rubi Camp LPN - 08/27/2022 9:33 AM EDT Pet had already been authorized for [place] until 09/03/22 , if reschedule at [place] will need new auth . If pt. Wants PET at [place] should not be a problem. Rubi Camp LPN * Telephone Encounter - Dangelo Underwood - 08/27/2022 8:43 AM EDT Patient called stating he had to cancel Pet Scan in [place] and follow up with Dr. Booker due to illness. He is asking if he could reschedule Pet Scan at [facility]. Please advise. documented in this encounterEast [facility]04-16-2023 Miscellaneous Notes* Telephone Encounter - Kamilla Masterson RN - 08/08/2022 12:05 PM EDT Patient calling with request for information regarding upcoming PET scan. Patient denies any new orworsening symptoms of which a provider is not aware:Yes. Patient informed appointment is 08/10/22 at9am at [place]. Patient advised that for further questions he should contact the [place] [facility] department, contact information provided. Patient verbalizes understanding and agreeable. documented in this encounterEast [facility]01-17-2023 Procedure [facility]10-26-2022 Miscellaneous Notes* Telephone Encounter - Li Chester - 02/17/2022 10:22 AM EDT REFERRAL TO DR. LO WAS FAXED ON 02/17/2022 documented in this encounterEast [facility]10-26-[facility]22 History of Present illness Narrative* Katey Booker, - 02/17/2022 9:17 AM EDT Diagnosis: 1) IgA lambda multiple myeloma. HPI: The patient is a 71 yo male with PMH significant for DM (peripheral sensory neuropathy) CKD stage I, psoriasis, mixed hyperlipidemia, HTN (essential). He had a several year history of diabetes and established with Dr. Vega about 3 years prior to initial consultation here. A chemistry panel revealed an increase in the globulin fraction and therefore a serum protein electrophoresis and immunofixation was obtained. The patient was found to have a low level IgA lambda monoclonal protein with the M spike quantified at 0.7 g/dL. Urine protein electrophoresis was noted to have an atypical gamma without any quantification. The patient's serum chemistries were significant for creatinine of 1.0 mg/dL and a calcium of 8.6 mg/dL. The total protein was 7.8 g/dL with an albumin of 3.2 g/dL and a globulin fraction of 4.6 g/dL yielding an A/G ratio 0.7. Hepatocellular enzymes were normal. Sister diagnosed with retro-orbital lymphoma. Patient had daughter who at age 24 in 2003 from acute leukemia. Presents for ongoing oncologic management. Interim history: Had covid in November. Fatigue was only symptoms. Tested because was at a luncheon at [employer] with a couple who subsequently found out they had covid. All symptoms resolved. Chronic back pain worse on lower right. PMH, medications and allergies personally reviewed by me today. Any changes documented in appropriate section. ROS: Constitutional: No recurrent fever. No night sweats. Appetite normal. Neuro: Denies JONES, vertigo and imbalance. HEENT: No recent change in voice, vision or hearing. Resp: Denies cough and hemoptysis. No shortness of breath at rest. CVS: Denies exertional chest pain, PND, orthopnea and LE edema. GI: Denies reflux, n/v, change in bowel habits and abdominal pain. No symptoms of stomatitis. : No dysuria or gross hematuria. No symptoms of bladder outlet obstruction. Endo: No hot flashes. Musculoskeletal: See above. Derm: No rash. Heme: No unusual bleeding or bruising. Psych: Normal mood. PHYSICAL EXAM: Vitals: Blood pressure 152/66, pulse 69, temperature 36.8 C (98.3 F), height 177 cm (5' 9.69), weight (!) 151.7 kg (334 lb 8 oz), SpO2 93 %. Well-appearing and in no acute distress. EYES: Sclerae are anicteric bilaterally. NECK: Supple. LYMPHATIC: There is no palpable cervical or supraclavicular adenopathy. RESPIRATORY: Inspiratory breath sounds are of normal intensity in all ambrose. No rales, wheezes or rhonchi. CARDIOVASCULAR: Rhythm is regular. ABDOMEN: The abdomen is nondistended. No tenderness. Extremities: No swelling or edema. SKIN: No jaundice or rash. No petechiae. NEUROLOGIC: turf grower II-XII are grossly intact. No focal motor weakness. LABS: Component Latest Ref Rng & Units 01/25/2022 WBC 3.70 - 11.00 k/uL 10.36 RBC 4.20 - 6.00 m/uL 5.24 Hemoglobin 13.0 - 17.0 g/dL 13.6 Hematocrit 39.0 - 51.0 % 42.7 MCV 80.0 - 100.0 fL 81.5 MCH 26.0 - 34.0 pg 26.0 MCHC 30.5 - 36.0 g/dL 31.9 RDW-CV 11.5 - 15.0 % 16.1 (H) Platelet Count 150 - 400 k/uL 352 MPV 9.0 - 12.7 fL 9.4 Neut% % 72.9 Abs Neut (ANC) 1.45 - 7.50 k/uL 7.55 (H) Lymph% % 17.1 Abs Lymph 1.00 - 4.00 k/uL 1.77 Radford% % 7.3 Abs Radford <0.87 k/uL 0.76 Eosin% % 1.6 Abs Eosin <0.46 k/uL 0.17 Baso% % 0.5 Abs Baso <0.11 k/uL 0.05 Immature Gran % % 0.6 IMMATURE GRANS (ABS) <0.10 k/uL 0.06 NRBC /100 WBC 0.0 Absolute nRBC <0.01 k/uL <0.01 DTYPE Auto Protein, Total 6.3 - 8.0 g/dL 7.3 Albumin 3.9 - 4.9 g/dL 3.7 (L) Calcium 8.5 - 10.2 mg/dL 9.3 Bilirubin, Total 0.2 - 1.3 mg/dL 0.5 Alkaline Phosphatase 38 - 113 U/L 106 AST 14 - 40 U/L 17 ALT 10 - 54 U/L 19 Glucose 74 - 99 mg/dL 117 (H) BUN 9 - 24 mg/dL 22 Creatinine 0.73 - 1.22 mg/dL 0.77 Sodium 136 - 144 mmol/L 136 Potassium 3.7 - 5.1 mmol/L 4.0 Chloride 97 - 105 mmol/L 101 CO2 22 - 30 mmol/L 25 Anion Gap 9 - 18 mmol/L 10 eGFR >=60 mL/min/1.73m 97 B2 Microglobulin <3.1 mg/L 2.4 Component Latest Ref Rng & Units 05/15/2015 05/17/2016 10/30/2018 06/08/2019 12/06/2019 07/29/2020 01/27/2021 07/28/2021 01/25/2022 Protein, Total 6.3 - 8.0 g/dL 6.9 7.2 6.7 6.9 6.6 6.9 6.7 Albumin 3.37 - 4.23 g/dL 3.53 3.54 3.25 (L) 3.55 3.50 3.64 3.65 3.56 3.61 Alpha 1 Globulin 0.18 - 0.31 g/dL 0.21 0.29 0.26 0.26 0.24 0.22 0.22 0.32 (H) 0.30 Alpha 2 Globulin 0.52 - 0.97 g/dL 0.66 0.72 0.72 0.72 0.71 0.72 0.67 0.81 0.79 Beta Globulin 0.84 - 1.36 g/dL 0.96 1.05 0.98 0.99 0.91 1.00 0.95 1.02 1.06 Gamma Globulin 0.70 - 1.44 g/dL 1.54 (H) 1.59 (H) 1.50 (H) 1.38 1.24 1.32 1.21 1.39 1.54 (H) Interpretation (Prot Electro) No definitive M protein is identified on protein electrophoresis. SEECOMMENT SEE COMMENT SEE COMMENT SEE COMMENT SEE COMMENT SEE COMMENT SEE COMMENT An M protein is identified on protein electrophoresis. (A) An M protein is identified on protein electrophoresis. (A) M-Protein Location Gamma fraction Gamma fraction Gamma fraction Gamma fraction Gamma fraction Gammafraction Gamma fraction Gamma Fraction 1 Gamma Fraction 1 M-Protein Concentration <=0.00 g/dL 0.37 (H) 0.39 (H) 0.53 (H) 0.50 (H) 0.50 (H) 0.43 (H) 0.49 (H) 0.53 (H) 0.46 (H) SPE Staff Review Reviewed by Harsh Dang MD ([id number]) Reviewed by Harsh Dang MD ([id number]) Reviewed by Bianka Rdz MD ([id number]) Reviewed by Gene Reid MD. ([id number]) Reviewed by Alta Collazo M.D., Ph.D ([id number]) Reviewed by Bianka Rdz MD ([id number]) Reviewed by Bianka Rdz MD ([id number]) Reviewed by Bianka Rdz MD Reviewed by Venkata Schrader MD, Ph.D ([id number]) Interpretation Comment for Protein Electrophoresis See separate immunofixation report for characterization of monoclonal gammopathy. . . . See separate immunofixation report for characterization of monoclonal gammopathy. Component Latest Ref Rng & Units 10/30/2014 05/15/2015 05/17/2016 07/28/2021 07/28/2021 01/25/2022 01/25/2022 11:05 AM 11:05 AM 11:38 AM 11:38 AM [place] Free, Serum 3.3 - 19.4 mg/L 14.2 23.4 24.0 (H) 22.4 (H) 20.6 (H) 21.8 (H) 21.3 (H) Lambda Free, Serum 5.7 - 26.3 mg/L 36.0 (H) 42.7 (H) 55.3 (H) 56.5 (H) 57.1 (H) 63.7 (H) 64.3 (H) K/L Ratio, Serum 0.26 - 1.65 0.39 0.55 (L) 0.43 0.40 0.36 0.34 0.33 Component Latest Ref Rng & Units 01/27/2022 Albumin %, 24 Hr Urine % 45.20 Alpha 1 Globulin %, 24 Hr Ur % 4.03 Alpha 2 Globulin %, 24 Hr Ur % 19.27 Beta Globulin %, 24 Hr Ur % 16.83 Gamma Globulin %, 24 Hr Ur % 14.67 Interpretation (UEPG24) No definitive M protein is identified on protein electrophoresis. No definitive M protein is identified on protein electrophoresis. Staff Review ([id number]) Reviewed by Dr. Danielle Rocha MD Component Latest Ref Rng & Units 01/27/2022 Protein, Timed Urine <0.15 g/24 Hr 0.20 (H) Period hr 24 Urine Volume 24 hour mL 2,200 Component Latest Ref Rng & Units 01/27/2022 Result (UMPA) No M protein is identified. M protein is present. (A) Interpretation (UMPA) Atypical restricted bands are present in the IgA and lambda regions, with an additional atypical band in the lambda region. 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 Staff Review ([facility]) Reviewed by Dr. Danielle Rocha MD IMAGING: Whole-body bone CT scan 02/01/2022: IMPRESSION: No new suspicious lytic lesion. Areas of intramedullary soft tissue attenuation without cortical destruction proximal-mid femurs bilaterally, similar to prior, nonspecific/indeterminant. Appearance of short segment wall thickening sigmoid colon, new from prior. Recommend colonoscopy evaluation to assess for/exclude colonic lesion/mass. PATHOLOGY: BM biopsy 11/15/2018: BONE MARROW ASPIRATE, CLOT SECTION, TOUCH PREPARATION, AND PERIPHERAL BLOOD SMEAR (A-B): - PLASMA CELL NEOPLASM (LAMBDA) INVOLVING 20% OF NORMOCELLULAR BONE MARROW (30%) WITH TRILINEAGE HEMATOPOIESIS. - STAINABLE IRON PRESENT. - SEE COMMENT. Comment: The patient has an IgA lambda M-protein (0.53 gm/dL). Flow cytometry shows no evidence of a lymphoproliferative disorder. Correlation with the clinical, laboratory, and radiographic findings is suggested for classification of this plasma cell neoplasm. Correlation with pending myeloma FISH and conventional cytogenetic studies is recommended. BONE MARROW ASPIRATE Normal % (0-2) 1 % Blasts (1-5) 2 % Promyelo (32-72) 45% Myelos/Metas/Bands/Segs (1-6) 2 % Eosinophils (0-1) 0 % Basophils (0-4) 2 % Monocytes (13-37) 30% Erythroid precursors (7-23) 11% Lymphocytes (0-2) 7 % Plasma cells Myeloid/Erythro (1.5-4): 1.7 Cells counted: 500 Iron stain result: Stainable iron present. Ring sideroblasts absent. Specimen Quality: Cellular and spicular. Megakaryocytes: Present with normal morphology. Erythropoiesis: Progressive maturation. Granulopoiesis: Progressive maturation. Other: Increased plasma cells with predominantly mature-appearing morphology. BONE MARROW BIOPSY: (Not performed) CLOT SECTION: Marrow particles: Many. Cellularity: Normocellular. ME ratio: Normal. Hematopoiesis: Trilineage maturation. Megakaryocytes: Adequate. Megakaryocyte morphology: Normal. Lymphoid infiltrate: None. Other: Increased plasma cells. Immunohistochemical stains for CD138 and kappa and lambda light chains were performed to quantitate plasma cells and evaluate for surface light chain restriction. This shows 20% plasma cells, positive for CD138 and lambda and negative for kappa. 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 -Initial bone marrow biopsy 20% PCs in the core specimen. -No CRAB involvement. -IgA monoclonal serum protein remains stable and < 2 g/dL and normal serum light chain ratio didnot suggest high risk disease. -PET 2019 revealed no suspicious skeletal lesions. -Reviewed labs in detail. -No concerning changes in musculoskeletal symptoms--right lower back pain chronic for years. -Nothing to suggest progression at this time. -Will try to alternate CT and PET every 6 months. -Didn't take BP meds this am. Plan: -Reassess in 6 months with labs and whole body PET. -Recommend colonoscopy. Portions of this documentation were copied and pasted from previous office visit notes in order to provide a cohesive continuity of the history. The note has been reviewed and edited and updated as necessary. During this patient visit I have spent approximately 15 minutes out of 20 in counseling regarding test results and coordinating care. Katey Booker DO documented [facility] Miscellaneous Notes* Telephone Encounter - Katey Booker DO - 01/25/2022 11:29 AM EDT Filed. Katey Booekr DO * Telephone Encounter - Rachana Torres LPN - 01/25/2022 11:25 AM EDT Patient here for labs. Please file orders. Rachana Torres LPN documented in this encounter[facility] Miscellaneous Notes* Telephone Encounter - Norma Underwood - 01/11/2022 9:52 AM EDT Rescheduled appointment with Dr Booker on Tue02/17/2022 @ 9:10am Thank you Norma Underwood * Telephone Encounter - Mana Hernandez - 01/09/2022 3:09 PM EDT LM for patient to return call. When patient calls, please reschedule cancelled 02/03/22 appointment, document and close this note. Mana Hernandez documented in this encounter[facility]22 History of Present illness Narrative* Katey Booker, DO - 08/04/2021 11:30 AM EDT Diagnosis: 1) IgA lambda multiple myeloma. HPI: The patient is a 70 yo male with PMH significant for DM (peripheral sensory neuropathy) CKD stage I, psoriasis, mixed hyperlipidemia, HTN (essential). He had a several year history of diabetes and established with Dr. Vega about 3 years prior to initial consultation here. A chemistry panel revealed an increase in the globulin fraction and therefore a serum protein electrophoresis and immunofixation was obtained. The patient was found to have a low level IgA lambda monoclonal protein with the M spike quantified at 0.7 g/dL. Urine protein electrophoresis was noted to have an atypical gamma without any quantification. The patient's serum chemistries were significant for creatinine of 1.0 mg/dL and a calcium of 8.6 mg/dL. The total protein was 7.8 g/dL with an albumin of 3.2 g/dL and a globulin fraction of 4.6 g/dL yielding an A/G ratio 0.7. Hepatocellular enzymes were normal. Sister diagnosed with retro-orbital lymphoma. Patient had daughter who at age 24 in 2003 from acute leukemia. Presents for ongoing oncologic management. Interim history: Flare of b/l CTS symptoms. Wrist splints really help. Toes/Balls of feet numb. Most recent A1c 7.7%. No acute illnesses since last seen. No episode of fever. Chronic back pain unchanged--right lower back above belt line. PMH, medications and allergies personally reviewed by me today. Any changes documented in appropriate section. ROS: Constitutional: No recurrent fever. No night sweats. Appetite normal. Neuro: Denies JONES, vertigo and imbalance. HEENT: No recent change in voice, vision or hearing. Resp: Denies cough and hemoptysis. No shortness of breath at rest. CVS: Denies exertional chest pain, PND, orthopnea and LE edema. GI: Denies reflux, n/v, change in bowel habits and abdominal pain. No symptoms of stomatitis. : No dysuria or gross hematuria. No symptoms of bladder outlet obstruction. Endo: No hot flashes. Musculoskeletal: See above. Derm: No rash. Heme: No unusual bleeding or bruising. Psych: Normal mood. PHYSICAL EXAM: Vitals: Blood pressure 144/86, pulse 74, temperature 36.7 C (98 F), temperature source Temporal, weight (!) 151.5 kg (334 lb), SpO2 95 %. Well-appearing and in no acute distress. EYES: Sclerae are anicteric bilaterally. NECK: Supple. LYMPHATIC: There is no palpable cervical or supraclavicular adenopathy. RESPIRATORY: Inspiratory breath sounds are of normal intensity in all ambrose. No rales, wheezes or rhonchi. CARDIOVASCULAR: Rhythm is regular. ABDOMEN: The abdomen is nondistended. No tenderness. Extremities: No swelling or edema. SKIN: No jaundice or rash. No petechiae. NEUROLOGIC: turf grower II-XII are grossly intact. No focal motor weakness. LABS: Component Latest Ref Rng & Units 07/28/2021 WBC 3.70 - 11.00 k/uL 12.55 (H) RBC 4.20 - 6.00 m/uL 5.16 Hemoglobin 13.0 - 17.0 g/dL 13.9 Hematocrit 39.0 - 51.0 % 43.0 MCV 80.0 - 100.0 fL 83.3 MCH 26.0 - 34.0 pg 26.9 MCHC 30.5 - 36.0 g/dL 32.3 RDW-CV 11.5 - 15.0 % 14.9 Platelet Count 150 - 400 k/uL 395 MPV 9.0 - 12.7 fL 9.5 Neut% % 70.3 Abs Neut (ANC) 1.45 - 7.50 k/uL 8.83 (H) Lymph% % 19.2 Abs Lymph 1.00 - 4.00 k/uL 2.41 Radford% % 7.1 Abs Radford <0.87 k/uL 0.89 (H) Eosin% % 2.2 Abs Eosin <0.46 k/uL 0.27 Baso% % 0.6 Abs Baso <0.11 k/uL 0.07 Immature Gran % % 0.6 IMMATURE GRANS (ABS) <0.10 k/uL 0.08 NRBC /100 WBC 0.0 Absolute nRBC <0.01 k/uL <0.01 DTYPE Auto Protein, Total 6.3 - 8.0 g/dL 7.1 Albumin 3.9 - 4.9 g/dL 3.8 (L) Calcium 8.5 - 10.2 mg/dL 8.9 Bilirubin, Total 0.2 - 1.3 mg/dL 0.5 Alkaline Phosphatase 38 - 113 U/L 114 (H) AST 14 - 40 U/L 19 ALT 10 - 54 U/L 21 Glucose 74 - 99 mg/dL 89 BUN 9 - 24 mg/dL 18 Creatinine 0.73 - 1.22 mg/dL 0.76 Sodium 136 - 144 mmol/L 137 Potassium 3.7 - 5.1 mmol/L 3.8 Chloride 97 - 105 mmol/L 103 CO2 22 - 30 mmol/L 26 Anion Gap 9 - 18 mmol/L 8 (L) eGFR >=60 mL/min/1.73m 97 B2 Microglobulin <3.1 mg/L 2.4 Component Latest Ref Rng & Units 05/15/2015 05/17/2016 10/30/2018 06/08/2019 12/06/2019 07/29/2020 01/27/2021 Protein, Total 6.3 - 8.0 g/dL 6.9 7.2 6.7 6.9 6.6 6.9 6.7 Albumin 3.37 - 4.23 gm/dL 3.53 3.54 3.25 (L) 3.55 3.50 3.64 3.65 Alpha 1 Globulin 0.18 - 0.31 gm/dL 0.21 0.29 0.26 0.26 0.24 0.22 0.22 Alpha 2 Globulin 0.52 - 0.97 gm/dL 0.66 0.72 0.72 0.72 0.71 0.72 0.67 Beta Globulin 0.84 - 1.36 gm/dL 0.96 1.05 0.98 0.99 0.91 1.00 0.95 Gamma Globulin 0.70 - 1.44 gm/dL 1.54 (H) 1.59 (H) 1.50 (H) 1.38 1.24 1.32 1.21 Interpretation (Prot Electro) SEE COMMENT SEE COMMENT SEE COMMENT SEE COMMENT SEE COMMENT SEE COMMENT SEE COMMENT M-Protein Location Gamma fraction Gamma fraction Gamma fraction Gamma fraction Gamma fraction Gammafraction Gamma fraction M-Protein Concentration 0.00 gm/dL 0.37 (H) 0.39 (H) 0.53 (H) 0.50 (H) 0.50 (H) 0.43 (H) 0.49 (H) SPE Staff Review Reviewed by Harsh Dang MD ([id number]) Reviewed by Harsh Dang MD ([id number]) Reviewed by Bianka Rdz MD ([id number]) Reviewed by Gene Reid MD. ([id number]) Reviewed by Alta Collazo M.D., Ph.D ([id number]) Reviewed by Bianka Rdz MD ([id number]) Reviewed by Bianka Rdz MD ([id number]) Component Latest Ref Rng & Units 10/30/2018 06/08/2019 12/06/2019 07/29/2020 01/27/2021 MPA IgG, Serum 700 - 1,600 mg/dL 1,090 1,020 1,120 907 930 MPA IgA, Serum 70 - 400 mg/dL 828 (H) 933 (H) 812 (H) 716 (H) 788 (H) MPA IgM, Serum 40 - 230 mg/dL 34 (L) 37 (L) 34 (L) 32 (L) 31 (L) [place] Free, Serum 3.30 - 19.40 mg/L 19.9 (H) 17.2 17.9 18.5 15.4 Lambda Free, Serum 5.7 - 26.3 mg/L 58.7 (H) 61.0 (H) 57.4 (H) 57.0 (H) 42.5 (H) K/L Ratio, Serum 0.26 - 1.65 0.34 0.28 0.31 0.32 0.36 MPA Result No M protein is identified. M protein is present. (A) M protein is present. (A) M protein is present. (A) M protein is present. (A) M protein is present. (A) Interpretation (MPA) SEE COMMENT SEE COMMENT SEE COMMENT SEE COMMENT SEE COMMENT Staff Review (MPA) Reviewed by Bianka Rdz MD ([id number]) Reviewed by Gene Reid MD. ([id number]) Reviewed by Alta Collazo M.D., Ph.D ([id number]) Reviewed by Bianka Rdz MD ([id number]) Reviewed by Bianka Rdz MD ([id number]) PATHOLOGY: BM biopsy 11/15/2018: BONE MARROW ASPIRATE, CLOT SECTION, TOUCH PREPARATION, AND PERIPHERAL BLOOD SMEAR (A-B): - PLASMA CELL NEOPLASM (LAMBDA) INVOLVING 20% OF NORMOCELLULAR BONE MARROW (30%) WITH TRILINEAGE HEMATOPOIESIS. - STAINABLE IRON PRESENT. - SEE COMMENT. Comment: The patient has an IgA lambda M-protein (0.53 gm/dL). Flow cytometry shows no evidence of a lymphoproliferative disorder. Correlation with the clinical, laboratory, and radiographic findings is suggested for classification of this plasma cell neoplasm. Correlation with pending myeloma FISH and conventional cytogenetic studies is recommended. BONE MARROW ASPIRATE Normal % (0-2) 1 % Blasts (1-5) 2 % Promyelo (32-72) 45% Myelos/Metas/Bands/Segs (1-6) 2 % Eosinophils (0-1) 0 % Basophils (0-4) 2 % Monocytes (13-37) 30% Erythroid precursors (7-23) 11% Lymphocytes (0-2) 7 % Plasma cells Myeloid/Erythro (1.5-4): 1.7 Cells counted: 500 Iron stain result: Stainable iron present. Ring sideroblasts absent. Specimen Quality: Cellular and spicular. Megakaryocytes: Present with normal morphology. Erythropoiesis: Progressive maturation. Granulopoiesis: Progressive maturation. Other: Increased plasma cells with predominantly mature-appearing morphology. BONE MARROW BIOPSY: (Not performed) CLOT SECTION: Marrow particles: Many. Cellularity: Normocellular. ME ratio: Normal. Hematopoiesis: Trilineage maturation. Megakaryocytes: Adequate. Megakaryocyte morphology: Normal. Lymphoid infiltrate: None. Other: Increased plasma cells. Immunohistochemical stains for CD138 and kappa and lambda light chains were performed to quantitate plasma cells and evaluate for surface light chain restriction. This shows 20% plasma cells, positive for CD138 and lambda and negative for kappa. 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 -Initial bone marrow biopsy 20% PCs in the core specimen. -No CRAB involvement. -IgA monoclonal serum protein < 2 g/dL and normal serum light chain ratio did not suggest high risk disease. -PET 2019 revealed no suspicious skeletal lesions. -Stable serum monoclonal protein. Reviewed labs in detail. -No concerning changes in musculoskeletal symptoms--right lower back pain chronic for years. -Nothing to suggest progression at this time. Plan: -Reassess in 6 months with labs and whole-body CT scan. Portions of this documentation were copied and pasted from previous office visit notes in order to provide a cohesive continuity of the history. The note has been reviewed and edited and updated as necessary. During this patient visit I have spent approximately 15 minutes out of 20 in counseling regarding test results and coordinating care. Katey Booker DO documented in this encounterEast [facility] HospitalDischar summary Author Jackie Rose [facility] December 20, 2022 5:01pm Note Date/Time December 20, 2022 4: 51pm [facility] Medical Records Department [address] [place] [id number] Instructions for Home/Discharge Instructions 12/20/22 1651 MR#: [id number] Acct: [id number] Name: CYN JAMES JrShannon Rep #:[id number] : 1950 72 From: Jackie Rose MD PCP: Dr. Krishna Mcdaniel DO Status:AD M IN Discharge Instructions Diet Discharge Diet: Low fat / Low cholesterol Activity Discharge Activity: Return to Normal Activity Weight Bearing Status: Weight bearing as tolerated Dressing / Incision Call your doctor if you observe: Fever of 101 or Higher, Shortness of breath, Dizziness, Swelling in the ankles and Chest pain Follow Up Care Test Results: Test results from this visit will be discussed in further detail at your follow- up appointment, if applicable. Discharge Plan Admission Admit Date/Time: 12/16/22 21:47 Primary Reason for Your Visit: acute on chronic HFpEF Attending Provider: Jackie Rose Primary Care Provider: Krishna Mcdaniel Consulting Providers: Fernanda Staples; Preston Carson Instructions Patient Instructions: Anemia, Coping with Heart Failure Discharge Orders/Prescriptions Prescriptions: New pantoprazole 40 mg tablet,delayed release (DR/EC) 40 mg PO BID Qty: 60 2RF furosemide 40 mg tablet 40 mg PO DAILY Qty: 30 2RF potassium chloride 20 mEq tablet extended release 20 meq PO DAILY Qty: 30 2RF Continued calcium carbonate-vitamin D3 [Calcium 600 with Vitamin D3] 600 mg(1,500mg) -200 unit tablet 1 tab PO QDAY magnesium 250 mg tablet 250 mg PO QDAY omega-3 fatty acids 1,000 mg capsule 1,000 mg PO QDAY aspirin [Adult Aspirin Regimen] 81 mg tablet,delayed release (DR/EC) 81 mg PO QDAY atorvastatin [Lipitor] 20 mg tablet 20 mg PO QDAY metformin [Glucophage] 1,000 mg tablet 1,000 mg PO BID insulin detemir U-100 [Levemir FlexTouch U100 Insulin] 78 unit SC TIDWMEAL insulin aspart U-100 [Novolog FlexPen U-100 Insulin] 34 unit SC QACBREAK [id number]-algal oil [Metanx (algal oil)] 3 mg-35 mg-2 mg -90.314 mg capsule 1 cap PO DAILY diltiazem HCl 180 mg capsule,extended release 24hr 180 mg PO DAILY cholecalciferol (vitamin D3) 50 mcg (2,000 unit) tablet 50 mcg PO DAILY insulin aspart U-100 [Novolog FlexPen U-100 Insulin] 100 unit/mL (3 mL) insulin pen 54 unit subcut QACLUNCH insulin aspart U-100 [Novolog FlexPen U-100 Insulin] 100 unit/mL (3 mL) insulin pen 45 unit subcut QACDINNER acyclovir 400 mg tablet 400 mg PO BID irbesartan-hydrochlorothiazide 300-12.5 mg tablet 1 tab PO DAILY lenalidomide 25 mg capsule 25 mg PO .COMPLEX Rx Instructions: 25 mg orally; swallow whole with glass of water; do not open, crush, chew , break, or dissolve dexamethasone 4 mg tablet 40 mg PO .weekly Rx Instructions: every ondansetron 8 mg tablet,disintegrating 8 mg PO Q8H PRN (Reason: nausea and vomiting) insulin aspart U-100 [Novolog U-100 Insulin aspart] 100 unit/mL solution 45 unit subcut QHS ferrous sulfate [Iron (ferrous sulfate)] 550 mg PO .every other day albuterol sulfate [Ventolin HFA] 90 mcg/actuation HFA aerosol inhaler 2 puff INHALATION Q4H Qty: 18 11RF Rx Instructions: administer with spacer Anoro Ellipta 62.5-25 mcg/actuation blister with device 1 inh inhalation QDAY Qty: 60 11RF Discontinued hydrochlorothiazide 25 mg tablet 25 mg PO DAILY omeprazole 40 mg capsule,delayed release(DR/EC) 40 mg PO DAILY PRN (Reason: nause) Referrals / Follow Up: Krishna Mcdaniel DO [Primary Care Provider] - 01/18/23 11:30 am [facility] [Med Staff - Active Staff] - 06/14/23 10:15 am (This was the first appt the office had available if they have any sooner appts become available the office will call you. ) Disposition Disposition (needs filled in before D/C Order can be placed): Home, Self Care 12/20/221650<Electronically signed by Jackie Rose MD>Jackie Rose MD CC: Dr. Preston Carson MD; Dr. Krishna Mcdaniel DO; Dr. Fernanda Staples DO ~ Signed ADDENDUM by Dr. Jackie Rose MD on 12/20/22 at 1701 Irbesartan-hydrochlorthiazide discontinued. Patient given a script for PO losartan 50mg daily x 30 tabs with 2 refills 12/20/221700<Electronically signed by Jackie Rose MD>Jackie Rose MD cc: Dr. Preston Carson MD; Dr. Krishna Mcdaniel DO; Dr. Fernanda Staples DO ~* Signed [facility] Work Phone: Discharge summary Author Jackie Rose [facility] December 20, 2022 5:01pm Note Date/Time December 20, 2022 4: 58pm [facility] Medical Records Department [address] [place] [address] Discharge Summary 12/20/221650 MR#: [id number] Acct: [id number] Name: ERIKACYN INMAN Rep #:[id number] : 1950 72 From: Jackie Rose MD PCP: Dr. Krishna Mcdaniel DO Status:AD M IN Location: [place] [id number] Providers Date of Admission: 12/16/22 Date of Discharge: 12/20/22 Primary Care Physician: Dr. Krishna Mcdaniel, DO Consultations 12/17/22 22:16 Consult: Gastroenterology Routine Consulting Provider: Mikaela G[facility] Reason for Consult: anemia with heme + stool EMERGENT Consult: No MD Notified: Yes Date Notified: 12/17/22 Time Notified: 22:16 Method of Notification: Text Reason For Visit: ACUTE HYPOXIC RESPIRATORY FAILURE/CHRONIC Diagnosis Discharge Diagnosis (1) Acute on chronic heart failure with preserved ejection fraction: Status: Acute Code(s): I50.33 - Acute on chronic diastolic (congestive) heart failure Medications at Discharge Home Medications aspirin 81 mg tablet,delayed release (Adult Aspirin Regimen) 81 mg PO QDAY hearthealth 08/19/17 atorvastatin 20 mg tablet (Lipitor) 20 mg PO QDAY cholesterol 08/19/17 calcium carbonate 600 mg-vitamin D3 5 mcg (200 unit) tablet (Calcium 600 with Vitamin D3) 1 tab PO QDAY supplement 08/19/17 magnesium 250 mg tablet 250 mg PO QDAY supplement 08/19/17 metformin 1,000 mg tablet (Glucophage) 1,000 mg PO BID diabetes 08/19/17 omega-3 fatty acids 1,000 mg capsule 1,000 mg PO QDAY supplement 08/19/17 levomefolate Ca 3 mg-B6 35 mg-meB12 2 mg-algal oil 90.314 mg capsule (Metanx (algal oil)) 1 cap PO DAILY 12/16/17 cholecalciferol (vitamin D3) 50 mcg (2,000 unit) tablet 50 mcg PO DAILY supplement 05/14/22 diltiazem HCl 180 mg capsule,extended release 24 hr 180 mg PO DAILY heart rate 05/14/22 dexamethasone 4 mg tablet 40 mg PO .weekly inflammation 10/12/22 acyclovir 400 mg tablet 400 mg PO BID anti viral 10/14/22 insulin aspart U-100 34 unit subcut QACBREAK diabetes 10/14/22 insulin aspart U-100 100 unit/mL (3 mL) subcutaneous pen (Novolog FlexPen U-100 Insulin aspart) 45 unit subcut QACDINNER diabetes 10/14/22 insulin aspart U-100 100 unit/mL (3 mL) subcutaneous pen (Novolog FlexPen U-100 Insulin aspart) 54 unit subcut QACLUNCH diabetes 10/14/22 insulin detemir U-100 78 unit subcut TIDWMEAL diabetes 10/14/22 lenalidomide 25 mg capsule 25 mg PO .COMPLEX 10/14/22 ondansetron 8 mg disintegrating tablet 8 mg PO Q8H PRN nausea and vomiting 10/14/22 albuterol sulfate 90 mcg/actuation aerosol inhaler (Ventolin HFA) 2 puff inhalation Q4H breathing #18 grams 12/07/22 umeclidinium 62.5 mcg-vilanterol 25 mcg/actuation powdr for inhalation (Anoro Ellipta) 1 inh inhalation QDAY breathing #60 ea 12/09/22 ferrous sulfate 550 mg PO .every other day supplement 12/17/22 insulin aspart U-100 100 unit/mL subcutaneous solution (Novolog U-100 Insulin aspart) 45 unit subcut QHS diabetes 12/17/22 furosemide 40 mg tablet 40 mg PO DAILY #30 tabs 12/20/22 losartan 50 mg tablet 50 mg PO DAILY #30 tabs 12/20/22 pantoprazole 40 mg tablet,delayed release 40 mg PO BID #60 tabs 12/20/22 potassium chloride 20 mEq tablet,extended release 20 meq PO DAILY #30 tabs 12/20/22 Hospital Course Operations None Procedures 2-D Echocardiogram and EGD Summary of Care Provided Minutes Spent on Discharge: 45 Hospital Course: Patient is a 72-year-old male with a past medical history as outlined who was admitted through the ED on 12/16/2022 with a complaint of shortness of breath which have been going on for about 2 weeks and worsening. He had assisted lowerextremity edema. He had oxygen that he used at home with 2 L with exertion. However he had been using it more regularly during the day. Patient was not on Lasix but had been taking hydrochlorothiazide. On admission BNP was elevated at373.7. Lactic acid was initially also elevated. He was saturating at 92% on [address] of the chest done showed no evidence of PE. He was also noted to have new moderate bilateral effusions and bilateral compressive atelectasis. He was admitted and managed for acute hypoxic respiratory failure due to acute on chronic heart failure preserved ejection fraction. Was placed on Lasix drip initially. Urine for strep and Legionella were negative. Respiratory panel wasalso negative. 2D echo done showed EF of 70%. His shortness of breath improvedand was weaned down on oxygen. Patient was noted to be anemic and stool for occult blood was positive. He had EGD which showed severe erosive gastritis and2 bleeding angiodysplastic lesions in the stomach which were treated with a heater probe. He also had duodenitis which was biopsied. He was placed on p.o. pantoprazole 40 mg twice daily. Shortness of breath improved and he was weaned down to 2 L of oxygen. He remained stable and was discharged home on 12/20/2022. He was discharged on p.o. Lasix as well as p.o. potassium as well as p.o. pantoprazole 40 mg twice daily. He is follow-up with his primary care doctor and is follow-up with GI. Patient seen and examined prior to discharge. He had no complaints and had an uneventful night. Review of systems otherwise negative. Potassium was 2.9 and was replaced and had come up to 3.6 prior to discharge. Physical Exam Const General Appearance: cooperative, comfortable and well kempt HEENT normocephalic, head/scalp atraumatic, hearing grossly normal bilaterally, moist oral mucous membranes and oropharynx normal Mouth: oral and palatal mucosa normal Eyes PERRL, EOMs intact bilaterally and conjunctivae normal Neck no lymphadenopathy and supple Resp Resp Narrative: Mildly diminished breath sounds bibasally. No wheezes or crackles. On 2 L of oxygen by nasal cannula. Cardio regular rate, regular rhythm, S1 normal heart sound, S2 normal heart sound and no murmurs GI normal to inspection, nondistended, normoactive bowel sounds, soft to palpation,non-tender and non-distended Extremity normal to inspection, full ROM and no clubbing, cyanosis or edema Skin no rashes or lesions noted, no wounds and skin turgor normal Neuro oriented x3, CN's II-XII intact bilaterally, moves all extremities and no focal motor deficits Sensorium / Orientation: awake and alert Motor Exam: strength 5/5 throughout Psych affect normal Weight / BMI Weight Weight: 322 lb 1.526 oz Body Mass Index (BMI) 47.5 ABG / Lab / Microbiology Data 12/20/22 05:30 12/20/22 13:53 Laboratory: Laboratory Results - last 24 hr 12/20/22 05:30: WBC 9.6, RBC 3.44 L, Hgb 8.8 L, Hct 28.3 L, MCV 82.3, MCH 25.6 L, MCHC 31.1 L, RDW Std Deviation 61.2 H, RDW Coeff of Kavya 20.8 H, Plt Count 460 H, MPV 10.2, Sodium 134 L, Potassium 2.9 L, Chloride 90 L, Carbon Dioxide 38.0 H, Anion Gap 6, BUN 28 H, Creatinine 1.05, Estim Creat Clear Calc 65.46, Est GFR (MDRD) Af Amer 90, Est GFR (MDRD) Non-Af 74, BUN/Creatinine Ratio 26.7 H, Glucose 108 H, Calcium 7.3 L 12/20/22 13:53: Potassium 3.6 Microbiology: Microbiology 12/17/22 Unknown Stool Stool Occult Blood (NANCY) - Final Occult Blood Positive 12/16/22 22:38 Mucosa - Nose Respiratory Panel (PCR) - Final 12/16/22 22:36 Urine, Clean Catch Legionella Antigen - Final 12/16/22 22:36 Urine, Clean Catch Streptococcus pneumoniae Antigen (M - Final D/C Instructions Discharge Diet: Low fat / Low cholesterol Discharge Activity: Return to Normal Activity Weight Bearing Status: Weight bearing as tolerated Call your doctor if you observe: Fever of 101 or Higher, Shortness of breath, Dizziness, Swelling in the ankles and Chest pain Meaningful Use Info Meaningful Use Diagnoses (Choose all that apply): CHF CHF GLENNA/ARB ordered at discharge?: No Reason GLENNA/ARB not ordered?: Not indicated Documented LVEF (%): 70 Discharge Plan Admission Admit Date/Time: 12/16/22 21:47 Primary Reason for Your Visit: acute on chronic HFpEF Attending Provider: Jackie Rose Primary Care Provider: Krishna Mcdaniel Consulting Providers: Fernanda Staples; Preston Carson Instructions Patient Instructions: Anemia, Coping with Heart Failure Discharge Orders/Prescriptions Prescriptions: New pantoprazole 40 mg tablet,delayed release (DR/EC) 40 mg PO BID Qty: 60 2RF furosemide 40 mg tablet 40 mg PO DAILY Qty: 30 2RF potassium chloride 20 mEq tablet extended release 20 meq PO DAILY Qty: 30 2RF losartan 50 mg tablet 50 mg PO DAILY Qty: 30 2RF Continued calcium carbonate-vitamin D3 [Calcium 600 with Vitamin D3] 600 mg(1,500mg) -200 unit tablet 1 tab PO QDAY magnesium 250 mg tablet 250 mg PO QDAY omega-3 fatty acids 1,000 mg capsule 1,000 mg PO QDAY aspirin [Adult Aspirin Regimen] 81 mg tablet,delayed release (DR/EC) 81 mg PO QDAY atorvastatin [Lipitor] 20 mg tablet 20 mg PO QDAY metformin [Glucophage] 1,000 mg tablet 1,000 mg PO BID insulin detemir U-100 [Levemir FlexTouch U100 Insulin] 78 unit SC TIDWMEAL insulin aspart U-100 [Novolog FlexPen U-100 Insulin] 34 unit SC QACBREAK [id number]-algal oil [Metanx (algal oil)] 3 mg-35 mg-2 mg -90.314 mg capsule 1 cap PO DAILY diltiazem HCl 180 mg capsule,extended release 24hr 180 mg PO DAILY cholecalciferol (vitamin D3) 50 mcg (2,000 unit) tablet 50 mcg PO DAILY insulin aspart U-100 [Novolog FlexPen U-100 Insulin] 100 unit/mL (3 mL) insulin pen 54 unit subcut QACLUNCH insulin aspart U-100 [Novolog FlexPen U-100 Insulin] 100 unit/mL (3 mL) insulin pen 45 unit subcut QACDINNER acyclovir 400 mg tablet 400 mg PO BID lenalidomide 25 mg capsule 25 mg PO .COMPLEX Rx Instructions: 25 mg orally; swallow whole with glass of water; do not open, crush, chew , break, or dissolve dexamethasone 4 mg tablet 40 mg PO .weekly Rx Instructions: every ondansetron 8 mg tablet,disintegrating 8 mg PO Q8H PRN (Reason: nausea and vomiting) insulin aspart U-100 [Novolog U-100 Insulin aspart] 100 unit/mL solution 45 unit subcut QHS ferrous sulfate [Iron (ferrous sulfate)] 550 mg PO .every other day albuterol sulfate [Ventolin HFA] 90 mcg/actuation HFA aerosol inhaler 2 puff INHALATION Q4H Qty: 18 11RF Rx Instructions: administer with spacer Anoro Ellipta 62.5-25 mcg/actuation blister with device 1 inh inhalation QDAY Qty: 60 11RF Discontinued hydrochlorothiazide 25 mg tablet 25 mg PO DAILY irbesartan-hydrochlorothiazide 300-12.5 mg tablet 1 tab PO DAILY omeprazole 40 mg capsule,delayed release(DR/EC) 40 mg PO DAILY PRN (Reason: nause) Referrals / Follow Up: Krishna Mcdaniel DO [Primary Care Provider] - 01/18/23 11:30 am FriendDudley DO [Med Staff - Active Staff] - 06/14/23 10:15 am (This was the first appt the office had available if they have any sooner appts become available the office will call you. ) Disposition Disposition (needs filled in before D/C Order can be placed): Home, Self Care Charges/Coding Visit Charges Inpatient E&M: 29169 Disch Hosp >30min 12/20/22 1700 <Electronically signed by Jackie Rose MD> Cosigner Signature (if applicable): CC: Dr. Krishna Mcdaniel DO; Dr. Jackie Rose MD~ Signed ADDENDUM by Dr. Jackie Rose MD on 12/20/22 at 1700 Visit Charges Inpatient E&M: 66747 Disch Hosp >30min 12/20/22 1700<Electronically signed by Jackie Rose MD> Cosigner Signature (if applicable): cc: Dr. Krishna Mcdaniel DO; Dr. Jackie Rose MD ~* Signed [facility] Work Phone: Evaluation + Plan note No data available for this section [facility] Evaluation note* Diagnosis Smoldering multiple myeloma- Primary Multiple myeloma, without mention of having achieved remission Multiple myeloma not having achieved remission (HCC) Multiple myeloma, without mention of having achieved remission documented in this encounter [facility] note* Diagnosis Onset Date Resolution Status COPD (chronic obstructive pulmonary disease) chronic Obesity chronic CONCHA (obstructive sleep apnea) chronic COPD (chronic obstructive pulmonary disease) chronic CONCHA (obstructive sleep apnea) chronic [facility] Work Phone: Evaluation noteNo assessment information available [facility] Work Phone: Evaluation note* Diagnosis Multiple myeloma not having achieved remission (HCC)- Primary Multiple myeloma, without mention of having achieved remission documented in this encounter [facility] note* Diagnosis Smoldering multiple myeloma- Primary Multiple myeloma, without mention of having achieved remission [facility] Diagnosis Onset Date Resolution Status COPD (chronic obstructive pulmonary disease) chronic Obesity chronic CONCHA (obstructive sleep apnea) [facility] Work Phone: Evaluation note* Diagnosis Onset Date Resolution Status COPD (chronic obstructive pulmonary disease) chronic Obesity chronic CONCHA (obstructive sleep apnea) chronic COPD (chronic obstructive pulmonary disease) chronic Regular cardiac rate and rhythm acute COPD (chronic obstructive pulmonary disease) chronic Abnormal electrocardiogram a cute Dyspnea on exertion acute Essential hypertension acute Mixed hyperlipidemia acute 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 [facility] Work Phone: Evaluation note* Diagnosis Onset Date Resolution Status COPD (chronic obstructive pulmonary disease) chronic Regular cardiac rate and rhythm acute COPD (chronic obstructive pulmonary disease) chronic Abnormal electrocardiogram a cute Dyspnea on exertion acute Essential hypertension acute Mixed hyperlipidemia acute 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 [facility] Work Phone: Evaluation note* Diagnosis Onset Date Resolution Status Regular cardiac rate and rhythm acute COPD (chronic obstructive pulmonary disease) chronic Abnormal electrocardiogram a cute Dyspnea on exertion acute Essential hypertension acute Mixed hyperlipidemia acute 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 Cough acute COPD (chronic obstructive pulmonary disease) chronic Hypoxia chronic Obesity chronic CONCHA (obstructive sleep apnea) [facility] Work Phone: Evaluation note* Diagnosis Smoldering multiple myeloma- Primary Multiple myeloma, without mention of having achieved remission [facility] Diagnosis Multiple myeloma not having achieved remission (HCC)- Primary Multiple myeloma, without mention of having achieved remission [facility] Multiple myeloma not having achieved remission (HCC)- Primary Multiple myeloma, without mention of having achieved remission [facility] Diagnosis Encounter for education- Primary Counseling NOS [facility] Diagnosis Multiple myeloma not having achieved remission (HCC)- Primary Multiple myeloma, without mention of having achieved remission [facility] Diagnosis Onset Date Resolution Status Cough acute COPD (chronic obstructive pulmonary disease) chronic Hypoxia chronic Obesity chronic CONCHA (obstructive sleep apnea) chronic COPD (chronic obstructive pulmonary disease) chronic Obesity chronic CONCHA (obstructive sleep apnea) chronic 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 Essential hypertension chron ic Mixed hyperlipidemia chronic Multiple myeloma chronic [facility] Work Phone: Evaluation note* Diagnosis Multiple myeloma not having achieved remission (HCC)- Primary Multiple myeloma, without mention of having achieved remission Acute cough [facility] Diagnosis Multiple myeloma not having achieved remission (HCC)- Primary Multiple myeloma, without mention of having achieved remission [facility] Diagnosis Multiple myeloma not having achieved remission (HCC)- Primary Multiple myeloma, without mention of having achieved remission [facility] Diagnosis Multiple myeloma not having achieved remission (HCC)- Primary Multiple myeloma, without mention of having achieved remission [facility] Diagnosis Multiple myeloma not having achieved remission (HCC)- Primary Multiple myeloma, without mention of having achieved remission [facility] Diagnosis Onset Date Resolution Status COPD (chronic obstructive pulmonary disease) chronic Obesity chronic CONCHA (obstructive sleep apnea) chronic 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 Essential hypertension chron ic Mixed hyperlipidemia chronic Multiple myeloma chronic SOB (shortness of breath) ac [place] COPD (chronic obstructive pulmonary disease) chronic [facility] Work Phone: Evaluation note* Diagnosis Onset Date Resolution Status COPD (chronic obstructive pulmonary disease) chronic Obesity chronic CONCHA (obstructive sleep apnea) chronic 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 Essential hypertension chron ic Mixed hyperlipidemia chronic Multiple myeloma chronic SOB (shortness of breath) [place] COPD (chronic obstructive pulmonary disease) chronic Lactic acidosis acute Acute hyponatremia acute Acute on chronic heart failu re with preserved ejection fraction acute Acute respiratory failure with hypoxia acute Bilateral pleural effusion a cute Hx of multiple myeloma acute Hyponatremia acute Pulmonary edema acute Rash acute Respiratory failure with hypoxia acute [facility] Work Phone: Evaluation note* Diagnosis Onset Date Resolution Status COPD (chronic obstructive pulmonary disease) chronic Obesity chronic CONCHA (obstructive sleep apnea) chronic 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 Essential hypertension chron ic Mixed hyperlipidemia chronic Multiple myeloma chronic SOB (shortness of breath) [place] COPD (chronic obstructive pulmonary disease) chronic Lactic acidosis acute Acute hyponatremia acute Acute on chronic heart failu re with preserved ejection fraction acute Acute respiratory failure with hypoxia acute Bilateral pleural effusion a cute Hx of multiple myeloma acute Hyponatremia acute Pulmonary edema acute Rash acute Respiratory failure with hypoxia acute 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 [facility] Work Phone: Evaluation note* Diagnosis Dysuria- Primary [facility] Diagnosis Multiple myeloma not having achieved remission (HCC)- Primary Multiple myeloma, without mention of having achieved remission [facility] Diagnosis Multiple myeloma not having achieved remission (HCC)- Primary Multiple myeloma, without mention of having achieved remission Smoldering multiple myeloma Multiple myeloma, without mention of having achieved remission [facility] Diagnosis Multiple myeloma not having achieved remission (HCC)- Primary Multiple myeloma, without mention of having achieved remission Iron deficiency anemia due to chronic blood loss Iron deficiency anemia secondary to blood loss (chronic) Iron malabsorption Other specified intestinal malabsorption [facility] Diagnosis Iron deficiency anemia due to chronic blood loss- Primary Iron deficiency anemia secondary to blood loss (chronic) Iron malabsorption Other specified intestinal malabsorption [facility] Diagnosis Onset Date Resolution Status COPD (chronic obstructive pulmonary disease) chronic Obesity chronic CONCHA (obstructive sleep apnea) chronic 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 Essential hypertension chron ic Mixed hyperlipidemia chronic Multiple myeloma chronic SOB (shortness of breath) [place] COPD (chronic obstructive pulmonary disease) chronic Lactic acidosis resolved Acute hyponatremia resolved Acute on chronic anemia reso lved Acute on chronic heart failu re with preserved ejection fraction resolved Acute respiratory failure with hypoxia resolved Bilateral pleural effusion r esolved Hyponatremia resolved Pulmonary edema resolved Respiratory failure with hypoxia resolved [facility] Work Phone: Evaluation note* Diagnosis Multiple myeloma not having achieved remission (HCC)- Primary Multiple myeloma, without mention of having achieved remission Iron deficiency anemia due to chronic blood loss Iron deficiency anemia secondary to blood loss (chronic) Iron malabsorption Other specified intestinal malabsorption [facility] Diagnosis Iron deficiency anemia due to chronic blood loss- Primary Iron deficiency anemia secondary to blood loss (chronic) Iron malabsorption Other specified intestinal malabsorption [facility] Diagnosis Multiple myeloma not having achieved remission (HCC)- Primary Multiple myeloma, without mention of having achieved remission Iron deficiency anemia due to chronic blood loss Iron deficiency anemia secondary to blood loss (chronic) Iron malabsorption Other specified intestinal malabsorption [facility] Diagnosis Multiple myeloma not having achieved remission (HCC)- Primary Multiple myeloma, without mention of having achieved remission Leg swelling Swelling of limb [facility] Diagnosis Multiple myeloma not having achieved remission (HCC)- Primary Multiple myeloma, without mention of having achieved remission [facility] Diagnosis Multiple myeloma not having achieved remission (HCC)- Primary Multiple myeloma, without mention of having achieved remission [facility] Diagnosis Multiple myeloma not having achieved remission (HCC)- Primary Multiple myeloma, without mention of having achieved remission [facility] Diagnosis Multiple myeloma not having achieved remission (HCC) Multiple myeloma, without mention of having achieved remission [facility] Diagnosis Multiple myeloma not having achieved remission (HCC)- Primary Multiple myeloma, without mention of having achieved remission Bilateral flank pain Abdominal pain, unspecified site Dysuria Diarrhea of presumed infectious origin Iron deficiency anemia due to chronic blood loss Iron deficiency anemia secondary to blood loss (chronic) [facility] Diagnosis Onset Date Resolution Status SOB (shortness of breath) [place] COPD (chronic obstructive pulmonary disease) chronic Lactic acidosis resolved Acute hyponatremia resolved Acute on chronic anemia reso lved Acute on chronic heart failu re with preserved ejection fraction resolved Acute respiratory failure with hypoxia resolved Bilateral pleural effusion r esolved Hyponatremia resolved Pulmonary edema resolved Respiratory failure with hypoxia resolved BPH with elevated PSA acute Dyspnea on exertion acute Heart failure with preserved ejection fraction, NYHA class II acute COPD (chronic obstructive pulmonary disease) chronic Diabetes mellitus chronic Multiple myeloma chronic Urinary hesitancy chronic Heart failure with preserved ejection fraction, NYHA class II acute 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 Essential hypertension chron ic Mixed hyperlipidemia chronic Multiple myeloma chronic Status post recent transurethral resection of prostate acute Heart failure with preserved ejection fraction, NYHA class II acute Type 2 diabetes mellitus acu te Essential hypertension chron ic Multiple myeloma chronic Obesity chronic Urinary hesitancy chronic [facility] Work Phone: Evaluation note* Diagnosis Multiple myeloma not having achieved remission (HCC) Multiple myeloma, without mention of having achieved remission Acute cough [facility] Diagnosis Malignant neoplasm of prostate (HCC)- Primary Malignant neoplasm of prostate [facility]* Diagnosis Multiple myeloma not having achieved remission (HCC)- Primary Multiple myeloma, without mention of having achieved remission [facility] Diagnosis Onset Date Resolution Status SOB (shortness of breath) [place] COPD (chronic obstructive pulmonary disease) chronic Lactic acidosis resolved Acute hyponatremia resolved Acute on chronic anemia reso lved Acute on chronic heart failu re with preserved ejection fraction resolved Acute respiratory failure with hypoxia resolved Bilateral pleural effusion r esolved Hyponatremia resolved Pulmonary edema resolved Respiratory failure with hypoxia resolved BPH with elevated PSA acute Dyspnea on exertion acute Heart failure with preserved ejection fraction, NYHA class II acute COPD (chronic obstructive pulmonary disease) chronic Diabetes mellitus chronic Multiple myeloma chronic Urinary hesitancy chronic Heart failure with preserved ejection fraction, NYHA class II acute 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 Essential hypertension chron ic Mixed hyperlipidemia chronic Multiple myeloma chronic Status post recent transuret hral resection of prostate January, acute Heart failure with preserved ejection fraction, NYHA class II acute Type 2 diabetes mellitus acu te Essential hypertension chron ic Multiple myeloma chronic Obesity chronic Urinary hesitancy chronic Heart failure with preserved ejection fraction, NYHA class II acute 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 Essential hypertension chron ic Mixed hyperlipidemia chronic Multiple myeloma chronic [facility] Work Phone: Evaluation note* Diagnosis Multiple myeloma not having achieved remission (HCC)- Primary Multiple myeloma, without mention of having achieved remission [facility] Diagnosis Cancer of ascending colon (HCC)- Primary Malignant neoplasm of ascending colon [facility] Diagnosis Malignant neoplasm of colon, unspecified part of colon (HCC)- Primary [facility]* Diagnosis Malignant neoplasm of sigmoid colon (HCC)- Primary Malignant neoplasm of sigmoid colon Chronic obstructive pulmonary disease, unspecified COPD type (HCC) Congestive heart failure, unspecified HF chronicity, unspecified heart failure type (HCC) Anemia, unspecified type [facility] Diagnosis Malignant neoplasm of sigmoid colon (HCC)- Primary Malignant neoplasm of sigmoid colon [facility] Diagnosis Iron deficiency anemia due to chronic blood loss- Primary Iron deficiency anemia secondary to blood loss (chronic) Iron malabsorption Other specified intestinal malabsorption [facility] Diagnosis Multiple myeloma not having achieved remission (HCC)- Primary Multiple myeloma, without mention of having achieved remission Cancer of sigmoid colon (HCC) Malignant neoplasm of sigmoid colon Open wound of abdominal wall, initial encounter Iron deficiency anemia due to chronic blood loss Iron deficiency anemia secondary to blood loss (chronic) [facility] Diagnosis Multiple myeloma not having achieved remission (HCC)- Primary Multiple myeloma, without mention of having achieved remission [facility] Diagnosis Postoperative examination- Primary Follow-up examination, following unspecified surgery [facility] Diagnosis Iron deficiency anemia due to chronic blood loss- Primary Iron deficiency anemia secondary to blood loss (chronic) Iron malabsorption Other specified intestinal malabsorption [facility] Diagnosis Hypokalemia- Primary Hypopotassemia [facility] Diagnosis Iron deficiency anemia due to chronic blood loss- Primary Iron deficiency anemia secondary to blood loss (chronic) Iron malabsorption Other specified intestinal malabsorption [facility] Diagnosis Malignant neoplasm of sigmoid colon (HCC)- Primary Malignant neoplasm of sigmoid colon [facility] Diagnosis Iron deficiency anemia due to chronic blood loss- Primary Iron deficiency anemia secondary to blood loss (chronic) Iron malabsorption Other specified intestinal malabsorption [facility] Diagnosis Onset Date Resolution Status Heart failure with preserved ejection fraction, NYHA class II acute Type 2 diabetes mellitus acu te Essential hypertension chron ic Multiple myeloma chronic Obesity chronic Urinary hesitancy chronic Heart failure with preserved ejection fraction, NYHA class II acute 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 Essential hypertension chron ic Mixed hyperlipidemia chronic Multiple myeloma chronic [facility] Work Phone: Evaluation note* Diagnosis Postoperative examination- Primary Follow-up examination, following unspecified surgery [facility] Diagnosis Cancer of sigmoid colon (HCC)- Primary Malignant neoplasm of sigmoid colon Multiple myeloma not having achieved remission (HCC) Multiple myeloma, without mention of having achieved remission Iron deficiency anemia due to chronic blood loss Iron deficiency anemia secondary to blood loss (chronic) [facility] Diagnosis Cancer of sigmoid colon (HCC)- Primary Malignant neoplasm of sigmoid colon [facility] Diagnosis Cancer of sigmoid colon (HCC)- Primary Malignant neoplasm of sigmoid colon [facility] Diagnosis Onset Date Resolution Status Heart failure with preserved ejection fraction, NYHA class II acute 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 Essential hypertension chron ic Mixed hyperlipidemia chronic Multiple myeloma chronic [facility] Work Phone: Evaluation note* Diagnosis Multiple myeloma not having achieved remission (HCC)- Primary Multiple myeloma, without mention of having achieved remission Cancer of sigmoid colon (HCC) Malignant neoplasm of sigmoid colon Iron deficiency anemia due to chronic blood loss Iron deficiency anemia secondary to blood loss (chronic) [facility] Multiple myeloma not having achieved remission (HCC)- Primary Multiple myeloma, without mention of having achieved remission Open wound of abdominal wall, [facility] encounter [facility] Open wound of abdominal wall, initial encounter- Primary Cancer of sigmoid colon (HCC) Malignant neoplasm of sigmoid colon [facility] Colon adenocarcinoma (HCC)- Primary Malignant neoplasm of colon, unspecified site [facility] Diagnosis Colon adenocarcinoma (HCC)- Primary Malignant neoplasm of colon, unspecified site [facility] Diagnosis Multiple myeloma not having achieved remission (HCC)- Primary Multiple myeloma, without mention of having achieved remission [facility] Diagnosis Postoperative examination- Primary Follow-up examination, following unspecified surgery [facility] Diagnosis Multiple myeloma not having achieved remission (HCC)- Primary Multiple myeloma, without mention of having achieved remission Urinary frequency Burning with urination Dysuria [facility] Diagnosis Multiple myeloma not having achieved remission (HCC)- Primary Multiple myeloma, without mention of having achieved remission Urinary frequency Burning with urination Dysuria [facility] Diagnosis Multiple myeloma not having achieved remission (HCC)- Primary Multiple myeloma, without mention of having achieved remission [facility] Diagnosis Multiple myeloma not having achieved remission (HCC)- Primary Multiple myeloma, without mention of having achieved remission Colon adenocarcinoma (HCC) Malignant neoplasm of colon, unspecified site [facility] Diagnosis Multiple myeloma not having achieved remission (HCC)- Primary Multiple myeloma, without mention of having achieved remission [facility] Diagnosis Colon adenocarcinoma (HCC)- Primary Malignant neoplasm of colon, unspecified site Multiple myeloma not having achieved remission (HCC) Multiple myeloma, without mention of having achieved remission [facility] Diagnosis Multiple myeloma not having achieved remission (HCC)- Primary Multiple myeloma, without mention of having achieved remission [facility] Diagnosis Multiple myeloma not having achieved remission (HCC)- Primary Multiple myeloma, without mention of having achieved remission Cancer of sigmoid colon (HCC) Malignant neoplasm of sigmoid colon [facility] Diagnosis Multiple myeloma not having achieved remission (HCC)- Primary Multiple myeloma, without mention of having achieved remission [facility] Diagnosis Multiple myeloma not having achieved remission (HCC)- Primary Multiple myeloma, without mention of having achieved remission Acute low back pain, unspecified back pain laterality, unspecified whether sciatica present Cancer of sigmoid colon (HCC) Malignant neoplasm of sigmoid colon [facility] Diagnosis Multiple myeloma not having achieved remission (HCC)- Primary Multiple myeloma, without mention of having achieved remission [facility] Diagnosis Acute low back pain, unspecified back pain laterality, unspecified whether sciatica present Multiple myeloma not having achieved remission (HCC) Multiple myeloma, without mention of having achieved remission [facility] Diagnosis Dysuria- Primary [facility] Diagnosis Burning with urination- Primary Dysuria [facility] Diagnosis Multiple myeloma not having achieved remission (HCC)- Primary Multiple myeloma, without mention of having achieved remission Burning with urination Dysuria [facility] Diagnosis Multiple myeloma not having achieved remission (HCC)- Primary Multiple myeloma, without mention of having achieved remission [facility] Diagnosis Multiple myeloma not having achieved remission (HCC)- Primary Multiple myeloma, without mention of having achieved remission [facility] Diagnosis Multiple myeloma not having achieved remission (HCC)- Primary Multiple myeloma, without mention of having achieved remission [facility] Diagnosis Multiple myeloma not having achieved remission (HCC)- Primary Multiple myeloma, without mention of having achieved remission Cancer of sigmoid colon (HCC) Malignant neoplasm of sigmoid colon [facility] Diagnosis Cancer of sigmoid colon (HCC)- Primary Malignant neoplasm of sigmoid colon Multiple myeloma not having achieved remission (HCC) Multiple myeloma, without mention of having achieved remission [facility] Diagnosis Multiple myeloma not having achieved remission (HCC)- Primary Multiple myeloma, without mention of having achieved remission [facility] Diagnosis Cancer of sigmoid colon (HCC)- Primary Malignant neoplasm of sigmoid colon Malignant neoplasm of sigmoid colon (HCC) Malignant neoplasm of sigmoid colon Post-op pain Other acute postoperative pain CHF (congestive heart failure) (HCC) Congestive heart failure, unspecified COPD (chronic obstructive pulmonary disease) ([facility]) Chronic airway obstruction, not elsewhere classified Diabetes mellitus, type 2 ([facility]) Type II or unspecified type diabetes mellitus without mention of complication, not stated as uncontrolled GERD (gastroesophageal reflux disease) Esophageal reflux HLD (hyperlipidemia) Other and unspecified hyperlipidemia HTN (hypertension) Unspecified essential hypertension CONCHA (obstructive sleep apnea) Obstructive sleep apnea (adult) (pediatric) On home O2 Dependence on supplemental oxygen Obesity, Class III, BMI 40-49.9 (morbid obesity) ([facility]) Morbid obesity Post-op pain Other acute postoperative pain Hyponatremia Hyposmolality and/or hyponatremia Hypomagnesemia Disorders of magnesium metabolism Hypokalemia Hypopotassemia Hypophosphataemia Preop examination- Primary Preoperative examination, unspecified Type 2 diabetes mellitus without complication, with long-term current use of insulin (HCC) Marijuana user Chronic obstructive pulmonary disease, unspecified COPD type ([facility]) CONCHA (obstructive sleep apnea) Obstructive sleep apnea (adult) (pediatric) On home O2 Dependence on supplemental oxygen Hyperlipidemia, unspecified hyperlipidemia type Hypertension, unspecified type Gastroesophageal reflux disease without esophagitis Esophageal reflux Congestive heart failure, unspecified HF chronicity, unspecified heart failure type (HCC) Anemia, unspecified type Leukocytosis, unspecified type Elevated platelet count Essential thrombocythemia Morbid obesity (HCC) Morbid obesity Red blood cell antibody positive Other and unspecified nonspecific immunological findings Multiple myeloma not having achieved remission (HCC) Multiple myeloma, without mention of having achieved remission Cancer of sigmoid colon (HCC) Malignant neoplasm of sigmoid colon [facility] Diagnosis Cancer of sigmoid colon (HCC)- Primary Malignant neoplasm of sigmoid colon Malignant neoplasm of sigmoid colon (HCC) Malignant neoplasm of sigmoid colon Post-op pain Other acute postoperative pain CHF (congestive heart failure) (HCC) Congestive heart failure, unspecified COPD (chronic obstructive pulmonary disease) ([facility]) Chronic airway obstruction, not elsewhere classified Diabetes mellitus, type 2 ([facility]) Type II or unspecified type diabetes mellitus without mention of complication, not stated as uncontrolled GERD (gastroesophageal reflux disease) Esophageal reflux HLD (hyperlipidemia) Other and unspecified hyperlipidemia HTN (hypertension) Unspecified essential hypertension CONCHA (obstructive sleep apnea) Obstructive sleep apnea (adult) (pediatric) On home O2 Dependence on supplemental oxygen Obesity, Class III, BMI 40-49.9 (morbid obesity) (HCC) Morbid obesity Post-op pain Other acute postoperative pain Hyponatremia Hyposmolality and/or hyponatremia Hypomagnesemia Disorders of magnesium metabolism Hypokalemia Hypopotassemia Hypophosphataemia Preop examination- Primary Preoperative examination, unspecified Type 2 diabetes mellitus without complication, with long-term current use of insulin ([facility]) Marijuana user Chronic obstructive pulmonary disease, unspecified COPD type ([facility]) CONCHA (obstructive sleep apnea) Obstructive sleep apnea (adult) (pediatric) On home O2 Dependence on supplemental oxygen Hyperlipidemia, unspecified hyperlipidemia type Hypertension, unspecified type Gastroesophageal reflux disease without esophagitis Esophageal reflux Congestive heart failure, unspecified HF chronicity, unspecified heart failure type (HCC) Anemia, unspecified type Leukocytosis, unspecified type Elevated platelet count Essential thrombocythemia Morbid obesity (HCC) Morbid obesity Red blood cell antibody positive Other and unspecified nonspecific immunological findings Multiple myeloma not having achieved remission (HCC)- Primary Multiple myeloma, without mention of having achieved remission Cancer of sigmoid colon (HCC) Malignant neoplasm of sigmoid colon [facility] Diagnosis Cancer of sigmoid colon (HCC)- Primary Malignant neoplasm of sigmoid colon Malignant neoplasm of sigmoid colon (HCC) Malignant neoplasm of sigmoid colon Post-op pain Other acute postoperative pain CHF (congestive heart failure) (HCC) Congestive heart failure, unspecified COPD (chronic obstructive pulmonary disease) (HCC) Chronic airway obstruction, not elsewhere classified Diabetes mellitus, type 2 (HCC) Type II or unspecified type diabetes mellitus without mention of complication, not stated as uncontrolled GERD (gastroesophageal reflux disease) Esophageal reflux HLD (hyperlipidemia) Other and unspecified hyperlipidemia HTN (hypertension) Unspecified essential hypertension CONCHA (obstructive sleep apnea) Obstructive sleep apnea (adult) (pediatric) On home O2 Dependence on supplemental oxygen Obesity, Class III, BMI 40-49.9 (morbid obesity) (HCC) Morbid obesity Post-op pain Other acute postoperative pain Hyponatremia Hyposmolality and/or hyponatremia Hypomagnesemia Disorders of magnesium metabolism Hypokalemia Hypopotassemia Hypophosphataemia Preop examination- Primary Preoperative examination, unspecified Type 2 diabetes mellitus without complication, with long-term current use of insulin (HCC) Marijuana user Chronic obstructive pulmonary disease, unspecified COPD type (HCC) CONCHA (obstructive sleep apnea) Obstructive sleep apnea (adult) (pediatric) On home O2 Dependence on supplemental oxygen Hyperlipidemia, unspecified hyperlipidemia type Hypertension, unspecified type Gastroesophageal reflux disease without esophagitis Esophageal reflux Congestive heart failure, unspecified HF chronicity, unspecified heart failure type (HCC) Anemia, unspecified type Leukocytosis, unspecified type Elevated platelet count Essential thrombocythemia Morbid obesity (HCC) Morbid obesity Red blood cell antibody positive Other and unspecified nonspecific immunological findings Multiple myeloma not having achieved remission (HCC)- Primary Multiple myeloma, without mention of having achieved remission [facility] Cancer of sigmoid colon (HCC)- Primary Malignant neoplasm of sigmoid colon Malignant neoplasm of sigmoid colon (HCC) Malignant neoplasm of sigmoid colon Post-op pain Other acute postoperative pain CHF (congestive heart failure) (HCC) Congestive heart failure, unspecified COPD (chronic obstructive pulmonary disease) (HCC) Chronic airway obstruction, not elsewhere classified Diabetes mellitus, type 2 (HCC) Type II or unspecified type diabetes mellitus without mention of complication, not stated as uncontrolled GERD (gastroesophageal reflux disease) Esophageal reflux HLD (hyperlipidemia) Other and unspecified hyperlipidemia HTN (hypertension) Unspecified essential hypertension CONCHA (obstructive sleep apnea) Obstructive sleep apnea (adult) (pediatric) On home O2 Dependence on supplemental oxygen Obesity, Class III, BMI 40-49.9 (morbid obesity) (HCC) Morbid obesity Post-op pain Other acute postoperative pain Hyponatremia Hyposmolality and/or hyponatremia Hypomagnesemia Disorders of magnesium metabolism Hypokalemia Hypopotassemia Hypophosphataemia Preop examination- Primary Preoperative examination, unspecified Type 2 diabetes mellitus without complication, with long-term current use of insulin (HCC) Marijuana user Chronic obstructive pulmonary disease, unspecified COPD type (HCC) CONCHA (obstructive sleep apnea) Obstructive sleep apnea (adult) (pediatric) On home O2 Dependence on supplemental oxygen Hyperlipidemia, unspecified hyperlipidemia type Hypertension, unspecified type Gastroesophageal reflux disease without esophagitis Esophageal reflux Congestive heart failure, unspecified HF chronicity, unspecified heart failure type ([facility]) Anemia, unspecified type Leukocytosis, unspecified type Elevated platelet count Essential thrombocythemia Morbid obesity (HCC) Morbid obesity Red blood cell antibody positive Other and unspecified nonspecific immunological findings Multiple myeloma not having achieved remission ([facility])- Primary Multiple myeloma, without mention of having achieved remission [facility] Diagnosis Cancer of sigmoid colon ([facility])- Primary Malignant neoplasm of sigmoid colon Malignant neoplasm of sigmoid colon (HCC) Malignant neoplasm of sigmoid colon Post-op pain Other acute postoperative pain CHF (congestive heart failure) ([facility]) Congestive heart failure, unspecified COPD (chronic obstructive pulmonary disease) ([facility]) Chronic airway obstruction, not elsewhere classified Diabetes mellitus, type 2 ([facility]) Type II or unspecified type diabetes mellitus without mention of complication, not stated as uncontrolled GERD (gastroesophageal reflux disease) Esophageal reflux HLD (hyperlipidemia) Other and unspecified hyperlipidemia HTN (hypertension) Unspecified essential hypertension CONCHA (obstructive sleep apnea) Obstructive sleep apnea (adult) (pediatric) On home O2 Dependence on supplemental oxygen Obesity, Class III, BMI 40-49.9 (morbid obesity) (HCC) Morbid obesity Post-op pain Other acute postoperative pain Hyponatremia Hyposmolality and/or hyponatremia Hypomagnesemia Disorders of magnesium metabolism Hypokalemia Hypopotassemia Hypophosphataemia Preop examination- Primary Preoperative examination, unspecified Type 2 diabetes mellitus without complication, with long-term current use of insulin (HCC) Marijuana user Chronic obstructive pulmonary disease, unspecified COPD type (HCC) CONCHA (obstructive sleep apnea) Obstructive sleep apnea (adult) (pediatric) On home O2 Dependence on supplemental oxygen Hyperlipidemia, unspecified hyperlipidemia type Hypertension, unspecified type Gastroesophageal reflux disease without esophagitis Esophageal reflux Congestive heart failure, unspecified HF chronicity, unspecified heart failure type (HCC) Anemia, unspecified type Leukocytosis, unspecified type Elevated platelet count Essential thrombocythemia Morbid obesity (HCC) Morbid obesity Red blood cell antibody positive Other and unspecified nonspecific immunological findings Multiple myeloma not having achieved remission (HCC)- Primary Multiple myeloma, without mention of having achieved remission Cancer of sigmoid colon (HCC) Malignant neoplasm of sigmoid colon documented in this encounter [facility] note* Diagnosis Cancer of sigmoid colon (HCC)- Primary Malignant neoplasm of sigmoid colon Malignant neoplasm of sigmoid colon (HCC) Malignant neoplasm of sigmoid colon Post-op pain Other acute postoperative pain CHF (congestive heart failure) (HCC) Congestive heart failure, unspecified COPD (chronic obstructive pulmonary disease) ([facility]) Chronic airway obstruction, not elsewhere classified Diabetes mellitus, type 2 ([facility]) Type II or unspecified type diabetes mellitus without mention of complication, not stated as uncontrolled GERD (gastroesophageal reflux disease) Esophageal reflux HLD (hyperlipidemia) Other and unspecified hyperlipidemia HTN (hypertension) Unspecified essential hypertension CONCHA (obstructive sleep apnea) Obstructive sleep apnea (adult) (pediatric) On home O2 Dependence on supplemental oxygen Obesity, Class III, BMI 40-49.9 (morbid obesity) ([facility]) Morbid obesity Post-op pain Other acute postoperative pain Hyponatremia Hyposmolality and/or hyponatremia Hypomagnesemia Disorders of magnesium metabolism Hypokalemia Hypopotassemia Hypophosphataemia Preop examination- Primary Preoperative examination, unspecified Type 2 diabetes mellitus without complication, with long-term current use of insulin ([facility]) Marijuana user Chronic obstructive pulmonary disease, unspecified COPD type (HCC) CONCHA (obstructive sleep apnea) Obstructive sleep apnea (adult) (pediatric) On home O2 Dependence on supplemental oxygen Hyperlipidemia, unspecified hyperlipidemia type Hypertension, unspecified type Gastroesophageal reflux disease without esophagitis Esophageal reflux Congestive heart failure, unspecified HF chronicity, unspecified heart failure type (HCC) Anemia, unspecified type Leukocytosis, unspecified type Elevated platelet count Essential thrombocythemia Morbid obesity (HCC) Morbid obesity Red blood cell antibody positive Other and unspecified nonspecific immunological findings Hypokalemia Hypopotassemia documented in this encounter [facility] note* Diagnosis Cancer of sigmoid colon (HCC)- Primary Malignant neoplasm of sigmoid colon Malignant neoplasm of sigmoid colon (HCC) Malignant neoplasm of sigmoid colon Post-op pain Other acute postoperative pain CHF (congestive heart failure) (HCC) Congestive heart failure, unspecified COPD (chronic obstructive pulmonary disease) (HCC) Chronic airway obstruction, not elsewhere classified Diabetes mellitus, type 2 (HCC) Type II or unspecified type diabetes mellitus without mention of complication, not stated as uncontrolled GERD (gastroesophageal reflux disease) Esophageal reflux HLD (hyperlipidemia) Other and unspecified hyperlipidemia HTN (hypertension) Unspecified essential hypertension CONCHA (obstructive sleep apnea) Obstructive sleep apnea (adult) (pediatric) On home O2 Dependence on supplemental oxygen Obesity, Class III, BMI 40-49.9 (morbid obesity) (HCC) Morbid obesity Post-op pain Other acute postoperative pain Hyponatremia Hyposmolality and/or hyponatremia Hypomagnesemia Disorders of magnesium metabolism Hypokalemia Hypopotassemia Hypophosphataemia Preop examination- Primary Preoperative examination, unspecified Type 2 diabetes mellitus without complication, with long-term current use of insulin (HCC) Marijuana user Chronic obstructive pulmonary disease, unspecified COPD type ([facility]) CONCHA (obstructive sleep apnea) Obstructive sleep apnea (adult) (pediatric) On home O2 Dependence on supplemental oxygen Hyperlipidemia, unspecified hyperlipidemia type Hypertension, unspecified type Gastroesophageal reflux disease without esophagitis Esophageal reflux Congestive heart failure, unspecified HF chronicity, unspecified heart failure type (HCC) Anemia, unspecified type Leukocytosis, unspecified type Elevated platelet count Essential thrombocythemia Morbid obesity (HCC) Morbid obesity Red blood cell antibody positive Other and unspecified nonspecific immunological findings Multiple myeloma not having achieved remission (HCC)- Primary Multiple myeloma, without mention of having achieved remission [facility] Cancer of sigmoid colon (HCC)- Primary Malignant neoplasm of sigmoid colon Malignant neoplasm of sigmoid colon (HCC) Malignant neoplasm of sigmoid colon Post-op pain Other acute postoperative pain CHF (congestive heart failure) (HCC) Congestive heart failure, unspecified COPD (chronic obstructive pulmonary disease) (HCC) Chronic airway obstruction, not elsewhere classified Diabetes mellitus, type 2 (HCC) Type II or unspecified type diabetes mellitus without mention of complication, not stated as uncontrolled GERD (gastroesophageal reflux disease) Esophageal reflux HLD (hyperlipidemia) Other and unspecified hyperlipidemia HTN (hypertension) Unspecified essential hypertension CONCHA (obstructive sleep apnea) Obstructive sleep apnea (adult) (pediatric) On home O2 Dependence on supplemental oxygen Obesity, Class III, BMI 40-49.9 (morbid obesity) (HCC) Morbid obesity Post-op pain Other acute postoperative pain Hyponatremia Hyposmolality and/or hyponatremia Hypomagnesemia Disorders of magnesium metabolism Hypokalemia Hypopotassemia Hypophosphataemia Preop examination- Primary Preoperative examination, unspecified Type 2 diabetes mellitus without complication, with long-term current use of insulin (HCC) Marijuana user Chronic obstructive pulmonary disease, unspecified COPD type (HCC) CONCHA (obstructive sleep apnea) Obstructive sleep apnea (adult) (pediatric) On home O2 Dependence on supplemental oxygen Hyperlipidemia, unspecified hyperlipidemia type Hypertension, unspecified type Gastroesophageal reflux disease without esophagitis Esophageal reflux Congestive heart failure, unspecified HF chronicity, unspecified heart failure type ([facility]) Anemia, unspecified type Leukocytosis, unspecified type Elevated platelet count Essential thrombocythemia Morbid obesity (HCC) Morbid obesity Red blood cell antibody positive Other and unspecified nonspecific immunological findings Multiple myeloma not having achieved remission ([facility])- Primary Multiple myeloma, without mention of having achieved remission Cancer of sigmoid colon ([facility]) Malignant neoplasm of sigmoid colon Chronic low back pain, unspecified back pain laterality, unspecified whether sciatica present [facility] Diagnosis Cancer of sigmoid colon ([facility])- Primary Malignant neoplasm of sigmoid colon Malignant neoplasm of sigmoid colon (HCC) Malignant neoplasm of sigmoid colon Post-op pain Other acute postoperative pain CHF (congestive heart failure) (HCC) Congestive heart failure, unspecified COPD (chronic obstructive pulmonary disease) ([facility]) Chronic airway obstruction, not elsewhere classified Diabetes mellitus, type 2 ([facility]) Type II or unspecified type diabetes mellitus without mention of complication, not stated as uncontrolled GERD (gastroesophageal reflux disease) Esophageal reflux HLD (hyperlipidemia) Other and unspecified hyperlipidemia HTN (hypertension) Unspecified essential hypertension CONCHA (obstructive sleep apnea) Obstructive sleep apnea (adult) (pediatric) On home O2 Dependence on supplemental oxygen Obesity, Class III, BMI 40-49.9 (morbid obesity) ([facility]) Morbid obesity Post-op pain Other acute postoperative pain Hyponatremia Hyposmolality and/or hyponatremia Hypomagnesemia Disorders of magnesium metabolism Hypokalemia Hypopotassemia Hypophosphataemia Preop examination- Primary Preoperative examination, unspecified Type 2 diabetes mellitus without complication, with long-term current use of insulin ([facility]) Marijuana user Chronic obstructive pulmonary disease, unspecified COPD type (HCC) CONCHA (obstructive sleep apnea) Obstructive sleep apnea (adult) (pediatric) On home O2 Dependence on supplemental oxygen Hyperlipidemia, unspecified hyperlipidemia type Hypertension, unspecified type Gastroesophageal reflux disease without esophagitis Esophageal reflux Congestive heart failure, unspecified HF chronicity, unspecified heart failure type (HCC) Anemia, unspecified type Leukocytosis, unspecified type Elevated platelet count Essential thrombocythemia Morbid obesity (HCC) Morbid obesity Red blood cell antibody positive Other and unspecified nonspecific immunological findings Acute cough- Primary Rhinosinusitis Unspecified sinusitis (chronic) Acute cough documented in this encounter [facility] note* Diagnosis Cancer of sigmoid colon (HCC)- Primary Malignant neoplasm of sigmoid colon Malignant neoplasm of sigmoid colon (HCC) Malignant neoplasm of sigmoid colon Post-op pain Other acute postoperative pain CHF (congestive heart failure) ([facility]) Congestive heart failure, unspecified COPD (chronic obstructive pulmonary disease) ([facility]) Chronic airway obstruction, not elsewhere classified Diabetes mellitus, type 2 ([facility]) Type II or unspecified type diabetes mellitus without mention of complication, not stated as uncontrolled GERD (gastroesophageal reflux disease) Esophageal reflux HLD (hyperlipidemia) Other and unspecified hyperlipidemia HTN (hypertension) Unspecified essential hypertension CONCHA (obstructive sleep apnea) Obstructive sleep apnea (adult) (pediatric) On home O2 Dependence on supplemental oxygen Obesity, Class III, BMI 40-49.9 (morbid obesity) ([facility]) Morbid obesity Post-op pain Other acute postoperative pain Hyponatremia Hyposmolality and/or hyponatremia Hypomagnesemia Disorders of magnesium metabolism Hypokalemia Hypopotassemia Hypophosphataemia Preop examination- Primary Preoperative examination, unspecified Type 2 diabetes mellitus without complication, with long-term current use of insulin ([facility]) Marijuana user Chronic obstructive pulmonary disease, unspecified COPD type ([facility]) CONCHA (obstructive sleep apnea) Obstructive sleep apnea (adult) (pediatric) On home O2 Dependence on supplemental oxygen Hyperlipidemia, unspecified hyperlipidemia type Hypertension, unspecified type Gastroesophageal reflux disease without esophagitis Esophageal reflux Congestive heart failure, unspecified HF chronicity, unspecified heart failure type (HCC) Anemia, unspecified type Leukocytosis, unspecified type Elevated platelet count Essential thrombocythemia Morbid obesity (HCC) Morbid obesity Red blood cell antibody positive Other and unspecified nonspecific immunological findings Acute cough documented in this encounter [facility] note* Diagnosis Cancer of sigmoid colon (HCC)- Primary Malignant neoplasm of sigmoid colon Malignant neoplasm of sigmoid colon (HCC) Malignant neoplasm of sigmoid colon Post-op pain Other acute postoperative pain CHF (congestive heart failure) (HCC) Congestive heart failure, unspecified COPD (chronic obstructive pulmonary disease) (HCC) Chronic airway obstruction, not elsewhere classified Diabetes mellitus, type 2 (HCC) Type II or unspecified type diabetes mellitus without mention of complication, not stated as uncontrolled GERD (gastroesophageal reflux disease) Esophageal reflux HLD (hyperlipidemia) Other and unspecified hyperlipidemia HTN (hypertension) Unspecified essential hypertension CONCHA (obstructive sleep apnea) Obstructive sleep apnea (adult) (pediatric) On home O2 Dependence on supplemental oxygen Obesity, Class III, BMI 40-49.9 (morbid obesity) (HCC) Morbid obesity Post-op pain Other acute postoperative pain Hyponatremia Hyposmolality and/or hyponatremia Hypomagnesemia Disorders of magnesium metabolism Hypokalemia Hypopotassemia Hypophosphataemia Preop examination- Primary Preoperative examination, unspecified Type 2 diabetes mellitus without complication, with long-term current use of insulin (HCC) Marijuana user Chronic obstructive pulmonary disease, unspecified COPD type (HCC) CONCHA (obstructive sleep apnea) Obstructive sleep apnea (adult) (pediatric) On home O2 Dependence on supplemental oxygen Hyperlipidemia, unspecified hyperlipidemia type Hypertension, unspecified type Gastroesophageal reflux disease without esophagitis Esophageal reflux Congestive heart failure, unspecified HF chronicity, unspecified heart failure type (HCC) Anemia, unspecified type Leukocytosis, unspecified type Elevated platelet count Essential thrombocythemia Morbid obesity (HCC) Morbid obesity Red blood cell antibody positive Other and unspecified nonspecific immunological findings Multiple myeloma not having achieved remission (HCC)- Primary Multiple myeloma, without mention of having achieved remission Cancer of sigmoid colon (HCC) Malignant neoplasm of sigmoid colon Chronic low back pain, unspecified back pain laterality, unspecified whether sciatica present Acute bronchitis due to Rhinovirus [facility]moid [facility] (HCC)- Primary Malignant neoplasm of sigmoid colon Malignant neoplasm of sigmoid colon (HCC) Malignant neoplasm of sigmoid colon Post-op pain Other acute postoperative pain CHF (congestive heart failure) (HCC) Congestive heart failure, unspecified COPD (chronic obstructive pulmonary disease) (HCC) Chronic airway obstruction, not elsewhere classified Diabetes mellitus, type 2 (HCC) Type II or unspecified type diabetes mellitus without mention of complication, not stated as uncontrolled GERD (gastroesophageal reflux disease) Esophageal reflux HLD (hyperlipidemia) Other and unspecified hyperlipidemia HTN (hypertension) Unspecified essential hypertension CONCHA (obstructive sleep apnea) Obstructive sleep apnea (adult) (pediatric) On home O2 Dependence on supplemental oxygen Obesity, Class III, BMI 40-49.9 (morbid obesity) (HCC) Morbid obesity Post-op pain Other acute postoperative pain Hyponatremia Hyposmolality and/or hyponatremia Hypomagnesemia Disorders of magnesium metabolism Hypokalemia Hypopotassemia Hypophosphataemia Preop examination- Primary Preoperative examination, unspecified Type 2 diabetes mellitus without complication, with long-term current use of insulin (HCC) Marijuana user Chronic obstructive pulmonary disease, unspecified COPD type (HCC) CONCHA (obstructive sleep apnea) Obstructive sleep apnea (adult) (pediatric) On home O2 Dependence on supplemental oxygen Hyperlipidemia, unspecified hyperlipidemia type Hypertension, unspecified type Gastroesophageal reflux disease without esophagitis Esophageal reflux Congestive heart failure, unspecified HF chronicity, unspecified heart failure type ([facility]) Anemia, unspecified type Leukocytosis, unspecified type Elevated platelet count Essential thrombocythemia Morbid obesity (HCC) Morbid obesity Red blood cell antibody positive Other and unspecified nonspecific immunological findings Multiple myeloma not having achieved remission ([facility])- Primary Multiple myeloma, without mention of having achieved remission [facility] Cancer of sigmoid colon ([facility])- Primary Malignant neoplasm of sigmoid colon Malignant neoplasm of sigmoid colon (HCC) Malignant neoplasm of sigmoid colon Post-op pain Other acute postoperative pain CHF (congestive heart failure) (HCC) Congestive heart failure, unspecified COPD (chronic obstructive pulmonary disease) ([facility]) Chronic airway obstruction, not elsewhere classified Diabetes mellitus, type 2 ([facility]) Type II or unspecified type diabetes mellitus without mention of complication, not stated as uncontrolled GERD (gastroesophageal reflux disease) Esophageal reflux HLD (hyperlipidemia) Other and unspecified hyperlipidemia HTN (hypertension) Unspecified essential hypertension CONCHA (obstructive sleep apnea) Obstructive sleep apnea (adult) (pediatric) On home O2 Dependence on supplemental oxygen Obesity, Class III, BMI 40-49.9 (morbid obesity) (HCC) Morbid obesity Post-op pain Other acute postoperative pain Hyponatremia Hyposmolality and/or hyponatremia Hypomagnesemia Disorders of magnesium metabolism Hypokalemia Hypopotassemia Hypophosphataemia Preop examination- Primary Preoperative examination, unspecified Type 2 diabetes mellitus without complication, with long-term current use of insulin (HCC) Marijuana user Chronic obstructive pulmonary disease, unspecified COPD type (HCC) CONCHA (obstructive sleep apnea) Obstructive sleep apnea (adult) (pediatric) On home O2 Dependence on supplemental oxygen Hyperlipidemia, unspecified hyperlipidemia type Hypertension, unspecified type Gastroesophageal reflux disease without esophagitis Esophageal reflux Congestive heart failure, unspecified HF chronicity, unspecified heart failure type (HCC) Anemia, unspecified type Leukocytosis, unspecified type Elevated platelet count Essential thrombocythemia Morbid obesity (HCC) Morbid obesity Red blood cell antibody positive Other and unspecified nonspecific immunological findings Acute cough- Primary Viral illness Unspecified viral infection, in conditions classified elsewhere and of unspecified site Acute cough documented in this encounter [facility] note* Diagnosis Cancer of sigmoid colon (HCC)- Primary Malignant neoplasm of sigmoid colon Malignant neoplasm of sigmoid colon (HCC) Malignant neoplasm of sigmoid colon Post-op pain Other acute postoperative pain CHF (congestive heart failure) ([facility]) Congestive heart failure, unspecified COPD (chronic obstructive pulmonary disease) ([facility]) Chronic airway obstruction, not elsewhere classified Diabetes mellitus, type 2 ([facility]) Type II or unspecified type diabetes mellitus without mention of complication, not stated as uncontrolled GERD (gastroesophageal reflux disease) Esophageal reflux HLD (hyperlipidemia) Other and unspecified hyperlipidemia HTN (hypertension) Unspecified essential hypertension CONCHA (obstructive sleep apnea) Obstructive sleep apnea (adult) (pediatric) On home O2 Dependence on supplemental oxygen Obesity, Class III, BMI 40-49.9 (morbid obesity) ([facility]) Morbid obesity Post-op pain Other acute postoperative pain Hyponatremia Hyposmolality and/or hyponatremia Hypomagnesemia Disorders of magnesium metabolism Hypokalemia Hypopotassemia Hypophosphataemia Preop examination- Primary Preoperative examination, unspecified Type 2 diabetes mellitus without complication, with long-term current use of insulin ([facility]) Marijuana user Chronic obstructive pulmonary disease, unspecified COPD type (HCC) CONCHA (obstructive sleep apnea) Obstructive sleep apnea (adult) (pediatric) On home O2 Dependence on supplemental oxygen Hyperlipidemia, unspecified hyperlipidemia type Hypertension, unspecified type Gastroesophageal reflux disease without esophagitis Esophageal reflux Congestive heart failure, unspecified HF chronicity, unspecified heart failure type (HCC) Anemia, unspecified type Leukocytosis, unspecified type Elevated platelet count Essential thrombocythemia Morbid obesity (HCC) Morbid obesity Red blood cell antibody positive Other and unspecified nonspecific immunological findings Acute cough documented in this encounter [facility] note* Diagnosis Cancer of sigmoid colon (HCC)- Primary Malignant neoplasm of sigmoid colon Malignant neoplasm of sigmoid colon (HCC) Malignant neoplasm of sigmoid colon Post-op pain Other acute postoperative pain CHF (congestive heart failure) (HCC) Congestive heart failure, unspecified COPD (chronic obstructive pulmonary disease) (HCC) Chronic airway obstruction, not elsewhere classified Diabetes mellitus, type 2 (HCC) Type II or unspecified type diabetes mellitus without mention of complication, not stated as uncontrolled GERD (gastroesophageal reflux disease) Esophageal reflux HLD (hyperlipidemia) Other and unspecified hyperlipidemia HTN (hypertension) Unspecified essential hypertension CONCHA (obstructive sleep apnea) Obstructive sleep apnea (adult) (pediatric) On home O2 Dependence on supplemental oxygen Obesity, Class III, BMI 40-49.9 (morbid obesity) (HCC) Morbid obesity Post-op pain Other acute postoperative pain Hyponatremia Hyposmolality and/or hyponatremia Hypomagnesemia Disorders of magnesium metabolism Hypokalemia Hypopotassemia Hypophosphataemia Preop examination- Primary Preoperative examination, unspecified Type 2 diabetes mellitus without complication, with long-term current use of insulin (HCC) Marijuana user Chronic obstructive pulmonary disease, unspecified COPD type (HCC) CONCHA (obstructive sleep apnea) Obstructive sleep apnea (adult) (pediatric) On home O2 Dependence on supplemental oxygen Hyperlipidemia, unspecified hyperlipidemia type Hypertension, unspecified type Gastroesophageal reflux disease without esophagitis Esophageal reflux Congestive heart failure, unspecified HF chronicity, unspecified heart failure type (HCC) Anemia, unspecified type Leukocytosis, unspecified type Elevated platelet count Essential thrombocythemia Morbid obesity (HCC) Morbid obesity Red blood cell antibody positive Other and unspecified nonspecific immunological findings Multiple myeloma not having achieved remission (HCC)- Primary Multiple myeloma, without mention of having achieved remission Cancer of sigmoid colon (HCC) Malignant neoplasm of sigmoid colon [facility] Diagnosis Cancer of sigmoid colon (HCC)- Primary Malignant neoplasm of sigmoid colon Malignant neoplasm of sigmoid colon (HCC) Malignant neoplasm of sigmoid colon Post-op pain Other acute postoperative pain CHF (congestive heart failure) (HCC) Congestive heart failure, unspecified COPD (chronic obstructive pulmonary disease) (HCC) Chronic airway obstruction, not elsewhere classified Diabetes mellitus, type 2 (HCC) Type II or unspecified type diabetes mellitus without mention of complication, not stated as uncontrolled GERD (gastroesophageal reflux disease) Esophageal reflux HLD (hyperlipidemia) Other and unspecified hyperlipidemia HTN (hypertension) Unspecified essential hypertension CONCHA (obstructive sleep apnea) Obstructive sleep apnea (adult) (pediatric) On home O2 Dependence on supplemental oxygen Obesity, Class III, BMI 40-49.9 (morbid obesity) (HCC) Morbid obesity Post-op pain Other acute postoperative pain Hyponatremia Hyposmolality and/or hyponatremia Hypomagnesemia Disorders of magnesium metabolism Hypokalemia Hypopotassemia Hypophosphataemia Preop examination- Primary Preoperative examination, unspecified Type 2 diabetes mellitus without complication, with long-term current use of insulin (HCC) Marijuana user Chronic obstructive pulmonary disease, unspecified COPD type (HCC) CONCHA (obstructive sleep apnea) Obstructive sleep apnea (adult) (pediatric) On home O2 Dependence on supplemental oxygen Hyperlipidemia, unspecified hyperlipidemia type Hypertension, unspecified type Gastroesophageal reflux disease without esophagitis Esophageal reflux Congestive heart failure, unspecified HF chronicity, unspecified heart failure type (HCC) Anemia, unspecified type Leukocytosis, unspecified type Elevated platelet count Essential thrombocythemia Morbid obesity (HCC) Morbid obesity Red blood cell antibody positive Other and unspecified nonspecific immunological findings Cancer of sigmoid colon (HCC)- Primary Malignant neoplasm of sigmoid colon Multiple myeloma not having achieved remission (HCC) Multiple myeloma, without mention of having achieved remission [facility] Diagnosis Cancer of sigmoid colon (HCC)- Primary Malignant neoplasm of sigmoid colon Malignant neoplasm of sigmoid colon (HCC) Malignant neoplasm of sigmoid colon Post-op pain Other acute postoperative pain CHF (congestive heart failure) (HCC) Congestive heart failure, unspecified COPD (chronic obstructive pulmonary disease) (HCC) Chronic airway obstruction, not elsewhere classified Diabetes mellitus, type 2 (HCC) Type II or unspecified type diabetes mellitus without mention of complication, not stated as uncontrolled GERD (gastroesophageal reflux disease) Esophageal reflux HLD (hyperlipidemia) Other and unspecified hyperlipidemia HTN (hypertension) Unspecified essential hypertension CONCHA (obstructive sleep apnea) Obstructive sleep apnea (adult) (pediatric) On home O2 Dependence on supplemental oxygen Obesity, Class III, BMI 40-49.9 (morbid obesity) (HCC) Morbid obesity Post-op pain Other acute postoperative pain Hyponatremia Hyposmolality and/or hyponatremia Hypomagnesemia Disorders of magnesium metabolism Hypokalemia Hypopotassemia Hypophosphataemia Preop examination- Primary Preoperative examination, unspecified Type 2 diabetes mellitus without complication, with long-term current use of insulin (HCC) Marijuana user Chronic obstructive pulmonary disease, unspecified COPD type (HCC) CONCHA (obstructive sleep apnea) Obstructive sleep apnea (adult) (pediatric) On home O2 Dependence on supplemental oxygen Hyperlipidemia, unspecified hyperlipidemia type Hypertension, unspecified type Gastroesophageal reflux disease without esophagitis Esophageal reflux Congestive heart failure, unspecified HF chronicity, unspecified heart failure type (HCC) Anemia, unspecified type Leukocytosis, unspecified type Elevated platelet count Essential thrombocythemia Morbid obesity (HCC) Morbid obesity Red blood cell antibody positive Other and unspecified nonspecific immunological findings Multiple myeloma not having achieved remission (HCC)- Primary Multiple myeloma, without mention of having achieved remission [facility] Diagnosis Cancer of sigmoid colon (HCC)- Primary Malignant neoplasm of sigmoid colon Malignant neoplasm of sigmoid colon (HCC) Malignant neoplasm of sigmoid colon Post-op pain Other acute postoperative pain CHF (congestive heart failure) ([facility]) Congestive heart failure, unspecified COPD (chronic obstructive pulmonary disease) ([facility]) Chronic airway obstruction, not elsewhere classified Diabetes mellitus, type 2 ([facility]) Type II or unspecified type diabetes mellitus without mention of complication, not stated as uncontrolled GERD (gastroesophageal reflux disease) Esophageal reflux HLD (hyperlipidemia) Other and unspecified hyperlipidemia HTN (hypertension) Unspecified essential hypertension CONCHA (obstructive sleep apnea) Obstructive sleep apnea (adult) (pediatric) On home O2 Dependence on supplemental oxygen Obesity, Class III, BMI 40-49.9 (morbid obesity) ([facility]) Morbid obesity Post-op pain Other acute postoperative pain Hyponatremia Hyposmolality and/or hyponatremia Hypomagnesemia Disorders of magnesium metabolism Hypokalemia Hypopotassemia Hypophosphataemia Preop examination- Primary Preoperative examination, unspecified Type 2 diabetes mellitus without complication, with long-term current use of insulin ([facility]) Marijuana user Chronic obstructive pulmonary disease, unspecified COPD type (HCC) CONCHA (obstructive sleep apnea) Obstructive sleep apnea (adult) (pediatric) On home O2 Dependence on supplemental oxygen Hyperlipidemia, unspecified hyperlipidemia type Hypertension, unspecified type Gastroesophageal reflux disease without esophagitis Esophageal reflux Congestive heart failure, unspecified HF chronicity, unspecified heart failure type (HCC) Anemia, unspecified type Leukocytosis, unspecified type Elevated platelet count Essential thrombocythemia Morbid obesity (HCC) Morbid obesity Red blood cell antibody positive Other and unspecified nonspecific immunological findings Multiple myeloma not having achieved remission (HCC)- Primary Multiple myeloma, without mention of having achieved remission [facility] Cancer [facility] sigmoid colon (HCC)- Primary Malignant neoplasm of sigmoid colon Malignant neoplasm of sigmoid colon (HCC) Malignant neoplasm of sigmoid colon Post-op pain Other acute postoperative pain CHF (congestive heart failure) (HCC) Congestive heart failure, unspecified COPD (chronic obstructive pulmonary disease) (HCC) Chronic airway obstruction, not elsewhere classified Diabetes mellitus, type 2 (HCC) Type II or unspecified type diabetes mellitus without mention of complication, not stated as uncontrolled GERD (gastroesophageal reflux disease) Esophageal reflux HLD (hyperlipidemia) Other and unspecified hyperlipidemia HTN (hypertension) Unspecified essential hypertension CONCHA (obstructive sleep apnea) Obstructive sleep apnea (adult) (pediatric) On home O2 Dependence on supplemental oxygen Obesity, Class III, BMI 40-49.9 (morbid obesity) (HCC) Morbid obesity Post-op pain Other acute postoperative pain Hyponatremia Hyposmolality and/or hyponatremia Hypomagnesemia Disorders of magnesium metabolism Hypokalemia Hypopotassemia Hypophosphataemia Preop examination- Primary Preoperative examination, unspecified Type 2 diabetes mellitus without complication, with long-term current use of insulin (HCC) Marijuana user Chronic obstructive pulmonary disease, unspecified COPD type (HCC) CONCHA (obstructive sleep apnea) Obstructive sleep apnea (adult) (pediatric) On home O2 Dependence on supplemental oxygen Hyperlipidemia, unspecified hyperlipidemia type Hypertension, unspecified type Gastroesophageal reflux disease without esophagitis Esophageal reflux Congestive heart failure, unspecified HF chronicity, unspecified heart failure type (HCC) Anemia, unspecified type Leukocytosis, unspecified type Elevated platelet count Essential thrombocythemia Morbid obesity (HCC) Morbid obesity Red blood cell antibody positive Other and unspecified nonspecific immunological findings Malignant neoplasm of sigmoid colon (HCC)- Primary Malignant neoplasm of sigmoid colon Multiple myeloma not having achieved remission (HCC) Multiple myeloma, without mention of having achieved remission [facility] Diagnosis Cancer of sigmoid colon (HCC)- Primary Malignant neoplasm of sigmoid colon Malignant neoplasm of sigmoid colon (HCC) Malignant neoplasm of sigmoid colon Post-op pain Other acute postoperative pain CHF (congestive heart failure) (HCC) Congestive heart failure, unspecified COPD (chronic obstructive pulmonary disease) (HCC) Chronic airway obstruction, not elsewhere classified Diabetes mellitus, type 2 (HCC) Type II or unspecified type diabetes mellitus without mention of complication, not stated as uncontrolled GERD (gastroesophageal reflux disease) Esophageal reflux HLD (hyperlipidemia) Other and unspecified hyperlipidemia HTN (hypertension) Unspecified essential hypertension CONCHA (obstructive sleep apnea) Obstructive sleep apnea (adult) (pediatric) On home O2 Dependence on supplemental oxygen Obesity, Class III, BMI 40-49.9 (morbid obesity) (HCC) Morbid obesity Post-op pain Other acute postoperative pain Hyponatremia Hyposmolality and/or hyponatremia Hypomagnesemia Disorders of magnesium metabolism Hypokalemia Hypopotassemia Hypophosphataemia Preop examination- Primary Preoperative examination, unspecified Type 2 diabetes mellitus without complication, with long-term current use of insulin ([facility]) Marijuana user Chronic obstructive pulmonary disease, unspecified COPD type (HCC) CONCHA (obstructive sleep apnea) Obstructive sleep apnea (adult) (pediatric) On home O2 Dependence on supplemental oxygen Hyperlipidemia, unspecified hyperlipidemia type Hypertension, unspecified type Gastroesophageal reflux disease without esophagitis Esophageal reflux Congestive heart failure, unspecified HF chronicity, unspecified heart failure type ([facility]) Anemia, unspecified type Leukocytosis, unspecified type Elevated platelet count Essential thrombocythemia Morbid obesity (HCC) Morbid obesity Red blood cell antibody positive Other and unspecified nonspecific immunological findings Multiple myeloma not having achieved remission ([facility])- Primary Multiple myeloma, without mention of having achieved remission Malignant neoplasm of sigmoid colon (HCC) Malignant neoplasm of sigmoid colon Rib pain on right side Chest pain, unspecified [facility] Cancer of sigmoid colon (HCC)- Primary Malignant neoplasm of sigmoid colon Malignant neoplasm of sigmoid colon (HCC) Malignant neoplasm of sigmoid colon Post-op pain Other acute postoperative pain CHF (congestive heart failure) (HCC) Congestive heart failure, unspecified COPD (chronic obstructive pulmonary disease) ([facility]) Chronic airway obstruction, not elsewhere classified Diabetes mellitus, type 2 ([facility]) Type II or unspecified type diabetes mellitus without mention of complication, not stated as uncontrolled GERD (gastroesophageal reflux disease) Esophageal reflux HLD (hyperlipidemia) Other and unspecified hyperlipidemia HTN (hypertension) Unspecified essential hypertension CONCHA (obstructive sleep apnea) Obstructive sleep apnea (adult) (pediatric) On home O2 Dependence on supplemental oxygen Obesity, Class III, BMI 40-49.9 (morbid obesity) (HCC) Morbid obesity Post-op pain Other acute postoperative pain Hyponatremia Hyposmolality and/or hyponatremia Hypomagnesemia Disorders of magnesium metabolism Hypokalemia Hypopotassemia Hypophosphataemia Preop examination- Primary Preoperative examination, unspecified Type 2 diabetes mellitus without complication, with long-term current use of insulin (HCC) Marijuana user Chronic obstructive pulmonary disease, unspecified COPD type (HCC) CONCHA (obstructive sleep apnea) Obstructive sleep apnea (adult) (pediatric) On home O2 Dependence on supplemental oxygen Hyperlipidemia, unspecified hyperlipidemia type Hypertension, unspecified type Gastroesophageal reflux disease without esophagitis Esophageal reflux Congestive heart failure, unspecified HF chronicity, unspecified heart failure type (HCC) Anemia, unspecified type Leukocytosis, unspecified type Elevated platelet count Essential thrombocythemia Morbid obesity (HCC) Morbid obesity Red blood cell antibody positive Other and unspecified nonspecific immunological findings Multiple myeloma not having achieved remission (HCC)- Primary Multiple myeloma, without mention of having achieved remission [facility] Cancer of sigmoid colon ([facility])- Primary Malignant neoplasm of sigmoid colon Malignant neoplasm of sigmoid colon (HCC) Malignant neoplasm of sigmoid colon Post-op pain Other acute postoperative pain CHF (congestive heart failure) (HCC) Congestive heart failure, unspecified COPD (chronic obstructive pulmonary disease) ([facility]) Chronic airway obstruction, not elsewhere classified Diabetes mellitus, type 2 ([facility]) Type II or unspecified type diabetes mellitus without mention of complication, not stated as uncontrolled GERD (gastroesophageal reflux disease) Esophageal reflux HLD (hyperlipidemia) Other and unspecified hyperlipidemia HTN (hypertension) Unspecified essential hypertension CONCHA (obstructive sleep apnea) Obstructive sleep apnea (adult) (pediatric) On home O2 Dependence on supplemental oxygen Obesity, Class III, BMI 40-49.9 (morbid obesity) (HCC) Morbid obesity Post-op pain Other acute postoperative pain Hyponatremia Hyposmolality and/or hyponatremia Hypomagnesemia Disorders of magnesium metabolism Hypokalemia Hypopotassemia Hypophosphataemia Preop examination- Primary Preoperative examination, unspecified Type 2 diabetes mellitus without complication, with long-term current use of insulin (HCC) Marijuana user Chronic obstructive pulmonary disease, unspecified COPD type (HCC) CONCHA (obstructive sleep apnea) Obstructive sleep apnea (adult) (pediatric) On home O2 Dependence on supplemental oxygen Hyperlipidemia, unspecified hyperlipidemia type Hypertension, unspecified type Gastroesophageal reflux disease without esophagitis Esophageal reflux Congestive heart failure, unspecified HF chronicity, unspecified heart failure type (HCC) Anemia, unspecified type Leukocytosis, unspecified type Elevated platelet count Essential thrombocythemia Morbid obesity (HCC) Morbid obesity Red blood cell antibody positive Other and unspecified nonspecific immunological findings Malignant neoplasm of sigmoid colon (HCC) Malignant neoplasm of sigmoid colon [facility] Cancer of sigmoid colon (HCC)- Primary Malignant neoplasm of sigmoid colon Malignant neoplasm of sigmoid colon (HCC) Malignant neoplasm of sigmoid colon Post-op pain Other acute postoperative pain CHF (congestive heart failure) (HCC) Congestive heart failure, unspecified COPD (chronic obstructive pulmonary disease) (HCC) Chronic airway obstruction, not elsewhere classified Diabetes mellitus, type 2 (HCC) Type II or unspecified type diabetes mellitus without mention of complication, not stated as uncontrolled GERD (gastroesophageal reflux disease) Esophageal reflux HLD (hyperlipidemia) Other and unspecified hyperlipidemia HTN (hypertension) Unspecified essential hypertension CONCHA (obstructive sleep apnea) Obstructive sleep apnea (adult) (pediatric) On home O2 Dependence on supplemental oxygen Obesity, Class III, BMI 40-49.9 (morbid obesity) (HCC) Morbid obesity Post-op pain Other acute postoperative pain Hyponatremia Hyposmolality and/or hyponatremia Hypomagnesemia Disorders of magnesium metabolism Hypokalemia Hypopotassemia Hypophosphataemia Preop examination- Primary Preoperative examination, unspecified Type 2 diabetes mellitus without complication, with long-term current use of insulin (HCC) Marijuana user Chronic obstructive pulmonary disease, unspecified COPD type (HCC) CONCHA (obstructive sleep apnea) Obstructive sleep apnea (adult) (pediatric) On home O2 Dependence on supplemental oxygen Hyperlipidemia, unspecified hyperlipidemia type Hypertension, unspecified type Gastroesophageal reflux disease without esophagitis Esophageal reflux Congestive heart failure, unspecified HF chronicity, unspecified heart failure type (HCC) Anemia, unspecified type Leukocytosis, unspecified type Elevated platelet count Essential thrombocythemia Morbid obesity (HCC) Morbid obesity Red blood cell antibody positive Other and unspecified nonspecific immunological findings Malignant neoplasm of sigmoid colon (HCC)- Primary Malignant neoplasm of sigmoid colon Multiple myeloma not having achieved remission (HCC) Multiple myeloma, without mention of having achieved remission Rib pain Chest pain, unspecified [facility] Diagnosis Cancer of sigmoid colon (HCC)- Primary Malignant neoplasm of sigmoid colon Malignant neoplasm of sigmoid colon (HCC) Malignant neoplasm of sigmoid colon Post-op pain Other acute postoperative pain CHF (congestive heart failure) (HCC) Congestive heart failure, unspecified COPD (chronic obstructive pulmonary disease) (HCC) Chronic airway obstruction, not elsewhere classified Diabetes mellitus, type 2 (HCC) Type II or unspecified type diabetes mellitus without mention of complication, not stated as uncontrolled GERD (gastroesophageal reflux disease) Esophageal reflux HLD (hyperlipidemia) Other and unspecified hyperlipidemia HTN (hypertension) Unspecified essential hypertension CONCHA (obstructive sleep apnea) Obstructive sleep apnea (adult) (pediatric) On home O2 Dependence on supplemental oxygen Obesity, Class III, BMI 40-49.9 (morbid obesity) (HCC) Morbid obesity Post-op pain Other acute postoperative pain Hyponatremia Hyposmolality and/or hyponatremia Hypomagnesemia Disorders of magnesium metabolism Hypokalemia Hypopotassemia Hypophosphataemia Preop examination- Primary Preoperative examination, unspecified Type 2 diabetes mellitus without complication, with long-term current use of insulin ([facility]) Marijuana user Chronic obstructive pulmonary disease, unspecified COPD type ([facility]) CONCHA (obstructive sleep apnea) Obstructive sleep apnea (adult) (pediatric) On home O2 Dependence on supplemental oxygen Hyperlipidemia, unspecified hyperlipidemia type Hypertension, unspecified type Gastroesophageal reflux disease without esophagitis Esophageal reflux Congestive heart failure, unspecified HF chronicity, unspecified heart failure type ([facility]) Anemia, unspecified type Leukocytosis, unspecified type Elevated platelet count Essential thrombocythemia Morbid obesity (HCC) Morbid obesity Red blood cell antibody positive Other and unspecified nonspecific immunological findings Multiple myeloma not having achieved remission ([facility])- Primary Multiple myeloma, without mention of having achieved remission [facility] Diagnosis Cancer of sigmoid colon ([facility])- Primary Malignant neoplasm of sigmoid colon Malignant neoplasm of sigmoid colon (HCC) Malignant neoplasm of sigmoid colon Post-op pain Other acute postoperative pain CHF (congestive heart failure) ([facility]) Congestive heart failure, unspecified COPD (chronic obstructive pulmonary disease) ([facility]) Chronic airway obstruction, not elsewhere classified Diabetes mellitus, type 2 ([facility]) Type II or unspecified type diabetes mellitus without mention of complication, not stated as uncontrolled GERD (gastroesophageal reflux disease) Esophageal reflux HLD (hyperlipidemia) Other and unspecified hyperlipidemia HTN (hypertension) Unspecified essential hypertension CONCHA (obstructive sleep apnea) Obstructive sleep apnea (adult) (pediatric) On home O2 Dependence on supplemental oxygen Obesity, Class III, BMI 40-49.9 (morbid obesity) (HCC) Morbid obesity Post-op pain Other acute postoperative pain Hyponatremia Hyposmolality and/or hyponatremia Hypomagnesemia Disorders of magnesium metabolism Hypokalemia Hypopotassemia Hypophosphataemia Preop examination- Primary Preoperative examination, unspecified Type 2 diabetes mellitus without complication, with long-term current use of insulin (HCC) Marijuana user Chronic obstructive pulmonary disease, unspecified COPD type (HCC) CONCHA (obstructive sleep apnea) Obstructive sleep apnea (adult) (pediatric) On home O2 Dependence on supplemental oxygen Hyperlipidemia, unspecified hyperlipidemia type Hypertension, unspecified type Gastroesophageal reflux disease without esophagitis Esophageal reflux Congestive heart failure, unspecified HF chronicity, unspecified heart failure type (HCC) Anemia, unspecified type Leukocytosis, unspecified type Elevated platelet count Essential thrombocythemia Morbid obesity (HCC) Morbid obesity Red blood cell antibody positive Other and unspecified nonspecific immunological findings Multiple myeloma not having achieved remission (HCC)- Primary Multiple myeloma, without mention of having achieved remission Malignant neoplasm of sigmoid colon (HCC) Malignant neoplasm of sigmoid colon Iron deficiency anemia due to chronic blood loss Iron deficiency anemia secondary to blood loss (chronic) [facility] Diagnosis Cancer of sigmoid colon (HCC)- Primary Malignant neoplasm of sigmoid colon Malignant neoplasm of sigmoid colon (HCC) Malignant neoplasm of sigmoid colon Post-op pain Other acute postoperative pain CHF (congestive heart failure) (HCC) Congestive heart failure, unspecified COPD (chronic obstructive pulmonary disease) (HCC) Chronic airway obstruction, not elsewhere classified Diabetes mellitus, type 2 (HCC) Type II or unspecified type diabetes mellitus without mention of complication, not stated as uncontrolled GERD (gastroesophageal reflux disease) Esophageal reflux HLD (hyperlipidemia) Other and unspecified hyperlipidemia HTN (hypertension) Unspecified essential hypertension CONCHA (obstructive sleep apnea) Obstructive sleep apnea (adult) (pediatric) On home O2 Dependence on supplemental oxygen Obesity, Class III, BMI 40-49.9 (morbid obesity) (HCC) Morbid obesity Post-op pain Other acute postoperative pain Hyponatremia Hyposmolality and/or hyponatremia Hypomagnesemia Disorders of magnesium metabolism Hypokalemia Hypopotassemia Hypophosphataemia Preop examination- Primary Preoperative examination, unspecified Type 2 diabetes mellitus without complication, with long-term current use of insulin (HCC) Marijuana user Chronic obstructive pulmonary disease, unspecified COPD type (HCC) CONCHA (obstructive sleep apnea) Obstructive sleep apnea (adult) (pediatric) On home O2 Dependence on supplemental oxygen Hyperlipidemia, unspecified hyperlipidemia type Hypertension, unspecified type Gastroesophageal reflux disease without esophagitis Esophageal reflux Congestive heart failure, unspecified HF chronicity, unspecified heart failure type (HCC) Anemia, unspecified type Leukocytosis, unspecified type Elevated platelet count Essential thrombocythemia Morbid obesity (HCC) Morbid obesity Red blood cell antibody positive Other and unspecified nonspecific immunological findings History of colon cancer- Primary Personal history of malignant neoplasm of large intestine Chronic obstructive pulmonary disease, unspecified COPD type (HCC) Morbid obesity (HCC) Morbid obesity [facility] Diagnosis Cancer of sigmoid colon (HCC)- Primary Malignant neoplasm of sigmoid colon Malignant neoplasm of sigmoid colon (HCC) Malignant neoplasm of sigmoid colon Post-op pain Other acute postoperative pain CHF (congestive heart failure) (HCC) Congestive heart failure, unspecified COPD (chronic obstructive pulmonary disease) (HCC) Chronic airway obstruction, not elsewhere classified Diabetes mellitus, type 2 (HCC) Type II or unspecified type diabetes mellitus without mention of complication, not stated as uncontrolled GERD (gastroesophageal reflux disease) Esophageal reflux HLD (hyperlipidemia) Other and unspecified hyperlipidemia HTN (hypertension) Unspecified essential hypertension CONCHA (obstructive sleep apnea) Obstructive sleep apnea (adult) (pediatric) On home O2 Dependence on supplemental oxygen Obesity, Class III, BMI 40-49.9 (morbid obesity) (HCC) Morbid obesity Post-op pain Other acute postoperative pain Hyponatremia Hyposmolality and/or hyponatremia Hypomagnesemia Disorders of magnesium metabolism Hypokalemia Hypopotassemia Hypophosphataemia Preop examination- Primary Preoperative examination, unspecified Type 2 diabetes mellitus without complication, with long-term current use of insulin (HCC) Marijuana user Chronic obstructive pulmonary disease, unspecified COPD type (HCC) CONCHA (obstructive sleep apnea) Obstructive sleep apnea (adult) (pediatric) On home O2 Dependence on supplemental oxygen Hyperlipidemia, unspecified hyperlipidemia type Hypertension, unspecified type Gastroesophageal reflux disease without esophagitis Esophageal reflux Congestive heart failure, unspecified HF chronicity, unspecified heart failure type (HCC) Anemia, unspecified type Leukocytosis, unspecified type Elevated platelet count Essential thrombocythemia Morbid obesity (HCC) Morbid obesity Red blood cell antibody positive Other and unspecified nonspecific immunological findings Multiple myeloma not having achieved remission (HCC) Multiple myeloma, without mention of having achieved remission [facility] Diagnosis Cancer of sigmoid colon (HCC)- Primary Malignant neoplasm of sigmoid colon Malignant neoplasm of sigmoid colon (HCC) Malignant neoplasm of sigmoid colon Post-op pain Other acute postoperative pain CHF (congestive heart failure) (HCC) Congestive heart failure, unspecified COPD (chronic obstructive pulmonary disease) (HCC) Chronic airway obstruction, not elsewhere classified Diabetes mellitus, type 2 (HCC) Type II or unspecified type diabetes mellitus without mention of complication, not stated as uncontrolled GERD (gastroesophageal reflux disease) Esophageal reflux HLD (hyperlipidemia) Other and unspecified hyperlipidemia HTN (hypertension) Unspecified essential hypertension CONCHA (obstructive sleep apnea) Obstructive sleep apnea (adult) (pediatric) On home O2 Dependence on supplemental oxygen Obesity, Class III, BMI 40-49.9 (morbid obesity) (HCC) Morbid obesity Post-op pain Other acute postoperative pain Hyponatremia Hyposmolality and/or hyponatremia Hypomagnesemia Disorders of magnesium metabolism Hypokalemia Hypopotassemia Hypophosphataemia Preop examination- Primary Preoperative examination, unspecified Type 2 diabetes mellitus without complication, with long-term current use of insulin ([facility]) Marijuana user Chronic obstructive pulmonary disease, unspecified COPD type ([facility]) CONCHA (obstructive sleep apnea) Obstructive sleep apnea (adult) (pediatric) On home O2 Dependence on supplemental oxygen Hyperlipidemia, unspecified hyperlipidemia type Hypertension, unspecified type Gastroesophageal reflux disease without esophagitis Esophageal reflux Congestive heart failure, unspecified HF chronicity, unspecified heart failure type ([facility]) Anemia, unspecified type Leukocytosis, unspecified type Elevated platelet count Essential thrombocythemia Morbid obesity (HCC) Morbid obesity Red blood cell antibody positive Other and unspecified nonspecific immunological findings Hypokalemia Hypopotassemia [facility] Diagnosis Cancer of sigmoid colon ([facility])- Primary Malignant neoplasm of sigmoid colon Malignant neoplasm of sigmoid colon (HCC) Malignant neoplasm of sigmoid colon Post-op pain Other acute postoperative pain CHF (congestive heart failure) (HCC) Congestive heart failure, unspecified COPD (chronic obstructive pulmonary disease) (HCC) Chronic airway obstruction, not elsewhere classified Diabetes mellitus, type 2 (HCC) Type II or unspecified type diabetes mellitus without mention of complication, not stated as uncontrolled GERD (gastroesophageal reflux disease) Esophageal reflux HLD (hyperlipidemia) Other and unspecified hyperlipidemia HTN (hypertension) Unspecified essential hypertension CONCHA (obstructive sleep apnea) Obstructive sleep apnea (adult) (pediatric) On home O2 Dependence on supplemental oxygen Obesity, Class III, BMI 40-49.9 (morbid obesity) Morbid obesity Post-op pain Other acute postoperative pain Hyponatremia Hyposmolality and/or hyponatremia Hypomagnesemia Disorders of magnesium metabolism Hypokalemia Hypopotassemia Hypophosphataemia Preop examination- Primary Preoperative examination, unspecified Type 2 diabetes mellitus without complication, with long-term current use of insulin (HCC) Marijuana user Chronic obstructive pulmonary disease, unspecified COPD type (HCC) CONCHA (obstructive sleep apnea) Obstructive sleep apnea (adult) (pediatric) On home O2 Dependence on supplemental oxygen Hyperlipidemia, unspecified hyperlipidemia type Hypertension, unspecified type Gastroesophageal reflux disease without esophagitis Esophageal reflux Congestive heart failure, unspecified HF chronicity, unspecified heart failure type (HCC) Anemia, unspecified type Leukocytosis, unspecified type Elevated platelet count Essential thrombocythemia Morbid obesity (HCC) Morbid obesity Red blood cell antibody positive Other and unspecified nonspecific immunological findings Multiple myeloma not having achieved remission (HCC)- Primary Multiple myeloma, without mention of having achieved remission [facility] Diagnosis Cancer of sigmoid colon (HCC)- Primary Malignant neoplasm of sigmoid colon Malignant neoplasm of sigmoid colon (HCC) Malignant neoplasm of sigmoid colon Post-op pain Other acute postoperative pain CHF (congestive heart failure) (HCC) Congestive heart failure, unspecified COPD (chronic obstructive pulmonary disease) (HCC) Chronic airway obstruction, not elsewhere classified Diabetes mellitus, type 2 ([facility]) Type II or unspecified type diabetes mellitus without mention of complication, not stated as uncontrolled GERD (gastroesophageal reflux disease) Esophageal reflux HLD (hyperlipidemia) Other and unspecified hyperlipidemia HTN (hypertension) Unspecified essential hypertension CONCHA (obstructive sleep apnea) Obstructive sleep apnea (adult) (pediatric) On home O2 Dependence on supplemental oxygen Obesity, Class III, BMI 40-49.9 (morbid obesity) Morbid obesity Post-op pain Other acute postoperative pain Hyponatremia Hyposmolality and/or hyponatremia Hypomagnesemia Disorders of magnesium metabolism Hypokalemia Hypopotassemia Hypophosphataemia Preop examination- Primary Preoperative examination, unspecified Type 2 diabetes mellitus without complication, with long-term current use of insulin (HCC) Marijuana user Chronic obstructive pulmonary disease, unspecified COPD type (HCC) CONCHA (obstructive sleep apnea) Obstructive sleep apnea (adult) (pediatric) On home O2 Dependence on supplemental oxygen Hyperlipidemia, unspecified hyperlipidemia type Hypertension, unspecified type Gastroesophageal reflux disease without esophagitis Esophageal reflux Congestive heart failure, unspecified HF chronicity, unspecified heart failure type (HCC) Anemia, unspecified type Leukocytosis, unspecified type Elevated platelet count Essential thrombocythemia Morbid obesity (HCC) Morbid obesity Red blood cell antibody positive Other and unspecified nonspecific immunological findings Iron deficiency anemia due to chronic blood loss- Primary 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 [facility] Diagnosis Cancer of sigmoid colon (HCC)- Primary Malignant neoplasm of sigmoid colon Malignant neoplasm of sigmoid colon (HCC) Malignant neoplasm of sigmoid colon Post-op pain Other acute postoperative pain CHF (congestive heart failure) (HCC) Congestive heart failure, unspecified COPD (chronic obstructive pulmonary disease) (HCC) Chronic airway obstruction, not elsewhere classified Diabetes mellitus, type 2 (HCC) Type II or unspecified type diabetes mellitus without mention of complication, not stated as uncontrolled GERD (gastroesophageal reflux disease) Esophageal reflux HLD (hyperlipidemia) Other and unspecified hyperlipidemia HTN (hypertension) Unspecified essential hypertension CONCHA (obstructive sleep apnea) Obstructive sleep apnea (adult) (pediatric) On home O2 Dependence on supplemental oxygen Obesity, Class III, BMI 40-49.9 (morbid obesity) Morbid obesity Post-op pain Other acute postoperative pain Hyponatremia Hyposmolality and/or hyponatremia Hypomagnesemia Disorders of magnesium metabolism Hypokalemia Hypopotassemia Hypophosphataemia Preop examination- Primary Preoperative examination, unspecified Type 2 diabetes mellitus without complication, with long-term current use of insulin (HCC) Marijuana user Chronic obstructive pulmonary disease, unspecified COPD type (HCC) CONCHA (obstructive sleep apnea) Obstructive sleep apnea (adult) (pediatric) On home O2 Dependence on supplemental oxygen Hyperlipidemia, unspecified hyperlipidemia type Hypertension, unspecified type Gastroesophageal reflux disease without esophagitis Esophageal reflux Congestive heart failure, unspecified HF chronicity, unspecified heart failure type (HCC) Anemia, unspecified type Leukocytosis, unspecified type Elevated platelet count Essential thrombocythemia Morbid obesity (HCC) Morbid obesity Red blood cell antibody positive Other and unspecified nonspecific immunological findings Iron deficiency anemia due to chronic blood loss- Primary 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 [facility] Cancer of sigmoid colon (HCC)- Primary Malignant neoplasm of sigmoid colon Malignant neoplasm of sigmoid colon (HCC) Malignant neoplasm of sigmoid colon Post-op pain Other acute postoperative pain CHF (congestive heart failure) (HCC) Congestive heart failure, unspecified COPD (chronic obstructive pulmonary disease) (HCC) Chronic airway obstruction, not elsewhere classified Diabetes mellitus, type 2 (HCC) Type II or unspecified type diabetes mellitus without mention of complication, not stated as uncontrolled GERD (gastroesophageal reflux disease) Esophageal reflux HLD (hyperlipidemia) Other and unspecified hyperlipidemia HTN (hypertension) Unspecified essential hypertension CONCHA (obstructive sleep apnea) Obstructive sleep apnea (adult) (pediatric) On home O2 Dependence on supplemental oxygen Obesity, Class III, BMI 40-49.9 (morbid obesity) Morbid obesity Post-op pain Other acute postoperative pain Hyponatremia Hyposmolality and/or hyponatremia Hypomagnesemia Disorders of magnesium metabolism Hypokalemia Hypopotassemia Hypophosphataemia Preop examination- Primary Preoperative examination, unspecified Type 2 diabetes mellitus without complication, with long-term current use of insulin (HCC) Marijuana user Chronic obstructive pulmonary disease, unspecified COPD type (HCC) CONCHA (obstructive sleep apnea) Obstructive sleep apnea (adult) (pediatric) On home O2 Dependence on supplemental oxygen Hyperlipidemia, unspecified hyperlipidemia type Hypertension, unspecified type Gastroesophageal reflux disease without esophagitis Esophageal reflux Congestive heart failure, unspecified HF chronicity, unspecified heart failure type (HCC) Anemia, unspecified type Leukocytosis, unspecified type Elevated platelet count Essential thrombocythemia Morbid obesity (HCC) Morbid obesity Red blood cell antibody positive Other and unspecified nonspecific immunological findings Iron deficiency anemia due to chronic blood loss- Primary 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 [facility] Cancer of sigmoid colon (HCC)- Primary Malignant neoplasm of sigmoid colon Malignant neoplasm of sigmoid colon (HCC) Malignant neoplasm of sigmoid colon Post-op pain Other acute postoperative pain CHF (congestive heart failure) (HCC) Congestive heart failure, unspecified COPD (chronic obstructive pulmonary disease) (HCC) Chronic airway obstruction, not elsewhere classified Diabetes mellitus, type 2 (HCC) Type II or unspecified type diabetes mellitus without mention of complication, not stated as uncontrolled GERD (gastroesophageal reflux disease) Esophageal reflux HLD (hyperlipidemia) Other and unspecified hyperlipidemia HTN (hypertension) Unspecified essential hypertension CONCHA (obstructive sleep apnea) Obstructive sleep apnea (adult) (pediatric) On home O2 Dependence on supplemental oxygen Obesity, Class III, BMI 40-49.9 (morbid obesity) Morbid obesity Post-op pain Other acute postoperative pain Hyponatremia Hyposmolality and/or hyponatremia Hypomagnesemia Disorders of magnesium metabolism Hypokalemia Hypopotassemia Hypophosphataemia Preop examination- Primary Preoperative examination, unspecified Type 2 diabetes mellitus without complication, with long-term current use of insulin (HCC) Marijuana user Chronic obstructive pulmonary disease, unspecified COPD type (HCC) CONCHA (obstructive sleep apnea) Obstructive sleep apnea (adult) (pediatric) On home O2 Dependence on supplemental oxygen Hyperlipidemia, unspecified hyperlipidemia type Hypertension, unspecified type Gastroesophageal reflux disease without esophagitis Esophageal reflux Congestive heart failure, unspecified HF chronicity, unspecified heart failure type (HCC) Anemia, unspecified type Leukocytosis, unspecified type Elevated platelet count Essential thrombocythemia Morbid obesity (HCC) Morbid obesity Red blood cell antibody positive Other and unspecified nonspecific immunological findings Multiple myeloma not having achieved remission ([facility])- Primary Multiple myeloma, without mention of having achieved remission [facility] Diagnosis Cancer of sigmoid colon ([facility])- Primary Malignant neoplasm of sigmoid colon Malignant neoplasm of sigmoid colon ([facility]) Malignant neoplasm of sigmoid colon Post-op pain Other acute postoperative pain CHF (congestive heart failure) (HCC) Congestive heart failure, unspecified COPD (chronic obstructive pulmonary disease) ([facility]) Chronic airway obstruction, not elsewhere classified Diabetes mellitus, type 2 ([facility]) Type II or unspecified type diabetes mellitus without mention of complication, not stated as uncontrolled GERD (gastroesophageal reflux disease) Esophageal reflux HLD (hyperlipidemia) Other and unspecified hyperlipidemia HTN (hypertension) Unspecified essential hypertension CONCHA (obstructive sleep apnea) Obstructive sleep apnea (adult) (pediatric) On home O2 Dependence on supplemental oxygen Obesity, Class III, BMI 40-49.9 (morbid obesity) (HCC) Morbid obesity Post-op pain Other acute postoperative pain Hyponatremia Hyposmolality and/or hyponatremia Hypomagnesemia Disorders of magnesium metabolism Hypokalemia Hypopotassemia Hypophosphataemia Preop examination- Primary Preoperative examination, unspecified Type 2 diabetes mellitus without complication, with long-term current use of insulin (HCC) Marijuana user Chronic obstructive pulmonary disease, unspecified COPD type (HCC) CONCHA (obstructive sleep apnea) Obstructive sleep apnea (adult) (pediatric) On home O2 Dependence on supplemental oxygen Hyperlipidemia, unspecified hyperlipidemia type Hypertension, unspecified type Gastroesophageal reflux disease without esophagitis Esophageal reflux Congestive heart failure, unspecified HF chronicity, unspecified heart failure type (HCC) Anemia, unspecified type Leukocytosis, unspecified type Elevated platelet count Essential thrombocythemia Morbid obesity (HCC) Morbid obesity Red blood cell antibody positive Other and unspecified nonspecific immunological findings Multiple myeloma not having achieved remission (HCC)- Primary Multiple myeloma, without mention of having achieved remission Iron deficiency anemia due to chronic blood loss Iron deficiency anemia secondary to blood loss (chronic) [facility] Diagnosis Cancer of sigmoid colon (HCC)- Primary Malignant neoplasm of sigmoid colon Malignant neoplasm of sigmoid colon (HCC) Malignant neoplasm of sigmoid colon Post-op pain Other acute postoperative pain CHF (congestive heart failure) (HCC) Congestive heart failure, unspecified COPD (chronic obstructive pulmonary disease) ([facility]) Chronic airway obstruction, not elsewhere classified Diabetes mellitus, type 2 ([facility]) Type II or unspecified type diabetes mellitus without mention of complication, not stated as uncontrolled GERD (gastroesophageal reflux disease) Esophageal reflux HLD (hyperlipidemia) Other and unspecified hyperlipidemia HTN (hypertension) Unspecified essential hypertension CONCHA (obstructive sleep apnea) Obstructive sleep apnea (adult) (pediatric) On home O2 Dependence on supplemental oxygen Obesity, Class III, BMI 40-49.9 (morbid obesity) ([facility]) Morbid obesity Post-op pain Other acute postoperative pain Hyponatremia Hyposmolality and/or hyponatremia Hypomagnesemia Disorders of magnesium metabolism Hypokalemia Hypopotassemia Hypophosphataemia Preop examination- Primary Preoperative examination, unspecified Type 2 diabetes mellitus without complication, with long-term current use of insulin ([facility]) Marijuana user Chronic obstructive pulmonary disease, unspecified COPD type (HCC) CONCHA (obstructive sleep apnea) Obstructive sleep apnea (adult) (pediatric) On home O2 Dependence on supplemental oxygen Hyperlipidemia, unspecified hyperlipidemia type Hypertension, unspecified type Gastroesophageal reflux disease without esophagitis Esophageal reflux Congestive heart failure, unspecified HF chronicity, unspecified heart failure type (HCC) Anemia, unspecified type Leukocytosis, unspecified type Elevated platelet count Essential thrombocythemia Morbid obesity (HCC) Morbid obesity Red blood cell antibody positive Other and unspecified nonspecific immunological findings Pre-operative examination- Primary Preoperative examination, unspecified Congestive heart failure, unspecified HF chronicity, unspecified heart failure type (HCC) Hyperlipidemia, unspecified hyperlipidemia type Primary hypertension Unspecified essential hypertension Chronic obstructive pulmonary disease, unspecified COPD type (HCC) CONCHA (obstructive sleep apnea) Obstructive sleep apnea (adult) (pediatric) Gastroesophageal reflux disease without esophagitis Esophageal reflux Elevated platelet count Essential thrombocythemia Anemia, unspecified type Leukocytosis, unspecified type Cancer of sigmoid colon (HCC) Malignant neoplasm of sigmoid colon Smoldering multiple myeloma Multiple myeloma, without mention of having achieved remission Marijuana user Hyponatremia Hyposmolality and/or hyponatremia Obesity, Class III, BMI 40-49.9 (morbid obesity) (HCC) Morbid obesity Iron malabsorption (HCC) Other specified intestinal malabsorption History of gastritis Personal history of other diseases of digestive system Paroxysmal A-fib (HCC) Atrial fibrillation * Assessment & Plan Note - Nafisa Jose APRN.CNP - 10/04/2024 3:22 PM EDT Associated Problem(s): Paroxysmal A-fib (HCC) Assessment: daily Eliquis, received instructions to hold 2 days, pt verbalized understanding. Currently wearing Zio patch for 2 weeks to determine burden of AF, following OSH cardiology * Assessment & Plan Note - Nafisa Jose APRN.CNP - 10/04/2024 3:21 PM EDT Associated Problem(s): History of gastritis Assessment: 11/2023 Underwent EGD which demonstrated severe erosive gastritis and 2 bleeding angiodysplastic lesions in the stomach which were treated with heater probe. He also had duodenitis which was biopsied. He was treated with pantoprazole 40 mg twice daily. * Assessment & Plan Note - Nafisa Jose APRN.CNP - 10/04/2024 3:18 PM EDT Associated Problem(s): Iron malabsorption (HCC) Assessment: following hematology, hx IV venofer * Assessment & Plan Note - Nafisa Jose APRN.CNP - 10/04/2024 3:18 PM EDT Associated Problem(s): Obesity, Class III, BMI 40-49.9 (morbid obesity) (HCC) Assessment: Body mass index is 45.71 kg/m . * Assessment & Plan Note - Nafisa Jose APRN.CNP - 10/04/2024 3:17 PM EDT Associated Problem(s): Hyponatremia Assessment: hx Sodium Date Value Ref Range Status 09/26/2024 137 136 - 144 mmol/L Final 08/29/2024 138 136 - 144 mmol/L Final 08/01/2024 139 136 - 144 mmol/L Final * Assessment & Plan Note - Nafisa Jose APRN.CNP - 10/04/2024 3:17 PM EDT Associated Problem(s): Marijuana user Assessment: Uses marijuana gummies Discussed risks and strongly urged patient to quit as soon as possible. * Assessment & Plan Note - Nafisa Jose APRN.CNP - 10/04/2024 3:16 PM EDT Associated Problem(s): Smoldering multiple myeloma Assessment: following hem/onc Receiving daratumumab -Continue holding lenalidomide, but will restart if progresses. -Dexamethasone 8 mg PO weekly due to exacerbation of blood glucose at higher doses. Last OV below 09/26/24: Note Details * Assessment & Plan Note - Nafisa Jose APRN.CNP - 10/04/2024 3:10 PM EDT Associated Problem(s): Cancer of sigmoid colon (HCC) Assessment: Underwent robotic laparoscopic sigmoid colectomy with colorectal anastomosis on 05/10/2023. * Assessment & Plan Note - Nafisa Jose APRN.JANICE - 10/04/2024 3:09 PM EDT Associated Problem(s): Leukocytosis Assessment: hx WBC Date Value Ref Range Status 09/26/2024 9.12 3.70 - 11.00 k/uL Final * Assessment & Plan Note - Nafisa Jose APRN.JANICE - 10/04/2024 3:08 PM EDT Associated Problem(s): Anemia Assessment: Hemoglobin (g/dL) Date Value 09/26/2024 10.7 01/27/2021 13.8 Hematocrit (%) Date Value 09/26/2024 37.5 01/27/2021 41.8 WBC (k/uL) Date Value 09/26/2024 9.12 01/27/2021 10.39 * Assessment & Plan Note - Nafisa Jose APRN.ENROUTE CONTROLLER - 10/04/2024 3:08 PM EDT Associated Problem(s): Elevated platelet count Assessment: hx Platelet Count Date Value Ref Range Status 09/26/2024 406 (H) 150 - 400 k/uL Final * Assessment & Plan Note - Nafisa Jose APRN.CNP - 10/04/2024 3:08 PM EDT Associated Problem(s): Diabetes mellitus, type 2 (HCC) Assessment: IDDM and oral agent following endo at [place] Hemoglobin A1C (%) Date Value 05/03/2023 7.6 * Assessment & Plan Note - Nafisa Jose APRN.CNP - 10/04/2024 2:48 PM EDT Associated Problem(s): GERD (gastroesophageal reflux disease) Assessment: controlled on rx * Assessment & Plan Note - Nafisa Jose APRN.CNP - 10/04/2024 2:48 PM EDT Associated Problem(s): CONCHA (obstructive sleep apnea) Assessment: c/w CPAP * Assessment & Plan Note - Nafisa Jose APRN.CNP - 10/04/2024 2:48 PM EDT Associated Problem(s): COPD (chronic obstructive pulmonary disease) (HCC) Assessment: Wears [place] oxygen to 3L/min as tolerated with O2 sats with activity, following pulmonary,records requested * Assessment & Plan Note - Nafisa Jose APRN.CNP - 10/04/2024 2:41 PM EDT Associated Problem(s): HTN (hypertension) Assessment: controlled on rx Last 14 BP Last 14 Encounter BP Readings: Date: BP: 10/04/2024 136/60 09/26/2024 144/68 09/19/2024 150/58 09/14/2024 127/62 09/12/2024 134/58 09/10/2024 105/52 09/06/2024 121/55 08/01/2024 198/73 07/16/2024 126/58 07/04/2024 143/75 06/06/2024 134/66 05/09/2024 167/76 04/11/2024 133/76 03/21/2024 122/78 * Assessment & Plan Note - Nafisa Jose APRN.CNP - 10/04/2024 2:40 PM EDT Associated Problem(s): HLD (hyperlipidemia) Assessment: c/w statin * Assessment & Plan Note - Nafisa Jose APRN.CNP - 10/04/2024 2:40 PM EDT Associated Problem(s): CHF (congestive heart failure) (HCC) Assessment: Euvolemic on exam today, controlled on rx, following cardiology, EF 70% 04/2024 echo scanned into the medical center, received cardiac optimization and last OV below: Scan on 07/20/2024 8:45 AM by Provider, External, DESTINY: cardiac clearance [facility] Diagnosis Cancer of sigmoid colon (HCC)- Primary Malignant neoplasm of sigmoid colon Malignant neoplasm of sigmoid colon (HCC) Malignant neoplasm of sigmoid colon Post-op pain Other acute postoperative pain CHF (congestive heart failure) (HCC) Congestive heart failure, unspecified COPD (chronic obstructive pulmonary disease) (HCC) Chronic airway obstruction, not elsewhere classified Diabetes mellitus, type 2 (HCC) Type II or unspecified type diabetes mellitus without mention of complication, not stated as uncontrolled GERD (gastroesophageal reflux disease) Esophageal reflux HLD (hyperlipidemia) Other and unspecified hyperlipidemia HTN (hypertension) Unspecified essential hypertension CONCHA (obstructive sleep apnea) Obstructive sleep apnea (adult) (pediatric) On home O2 Dependence on supplemental oxygen Obesity, Class III, BMI 40-49.9 (morbid obesity) (HCC) Morbid obesity Post-op pain Other acute postoperative pain Hyponatremia Hyposmolality and/or hyponatremia Hypomagnesemia Disorders of magnesium metabolism Hypokalemia Hypopotassemia Hypophosphataemia Preop examination- Primary Preoperative examination, unspecified Type 2 diabetes mellitus without complication, with long-term current use of insulin (HCC) Marijuana user Chronic obstructive pulmonary disease, unspecified COPD type (HCC) CONCHA (obstructive sleep apnea) Obstructive sleep apnea (adult) (pediatric) On home O2 Dependence on supplemental oxygen Hyperlipidemia, unspecified hyperlipidemia type Hypertension, unspecified type Gastroesophageal reflux disease without esophagitis Esophageal reflux Congestive heart failure, unspecified HF chronicity, unspecified heart failure type (HCC) Anemia, unspecified type Leukocytosis, unspecified type Elevated platelet count Essential thrombocythemia Morbid obesity (HCC) Morbid obesity Red blood cell antibody positive Other and unspecified nonspecific immunological findings Pre-operative examination- Primary Preoperative examination, unspecified Congestive heart failure, unspecified HF chronicity, unspecified heart failure type (HCC) Hyperlipidemia, unspecified hyperlipidemia type Primary hypertension Unspecified essential hypertension Chronic obstructive pulmonary disease, unspecified COPD type (HCC) CONCHA (obstructive sleep apnea) Obstructive sleep apnea (adult) (pediatric) Gastroesophageal reflux disease without esophagitis Esophageal reflux Elevated platelet count Essential thrombocythemia Anemia, unspecified type Leukocytosis, unspecified type Cancer of sigmoid colon (HCC) Malignant neoplasm of sigmoid colon Smoldering multiple myeloma Multiple myeloma, without mention of having achieved remission Marijuana user Hyponatremia Hyposmolality and/or hyponatremia Obesity, Class III, BMI 40-49.9 (morbid obesity) (HCC) Morbid obesity Iron malabsorption (HCC) Other specified intestinal malabsorption History of gastritis Personal history of other diseases of digestive system Paroxysmal A-fib (HCC) Atrial fibrillation Cancer of sigmoid colon (HCC)- Primary Malignant neoplasm of sigmoid colon Multiple myeloma not having achieved remission (HCC) Multiple myeloma, without mention of having achieved remission History of colon cancer Personal history of malignant neoplasm of large intestine Iron deficiency anemia, unspecified iron deficiency anemia type Occult blood positive stool Nonspecific abnormal finding in stool contents Gastroesophageal reflux disease, unspecified whether esophagitis present [facility] Diagnosis Cancer of sigmoid colon (HCC)- Primary Malignant neoplasm of sigmoid colon Malignant neoplasm of sigmoid colon (HCC) Malignant neoplasm of sigmoid colon Post-op pain Other acute postoperative pain CHF (congestive heart failure) (HCC) Congestive heart failure, unspecified COPD (chronic obstructive pulmonary disease) ([facility]) Chronic airway obstruction, not elsewhere classified Diabetes mellitus, type 2 ([facility]) Type II or unspecified type diabetes mellitus without mention of complication, not stated as uncontrolled GERD (gastroesophageal reflux disease) Esophageal reflux HLD (hyperlipidemia) Other and unspecified hyperlipidemia HTN (hypertension) Unspecified essential hypertension CONCHA (obstructive sleep apnea) Obstructive sleep apnea (adult) (pediatric) On home O2 Dependence on supplemental oxygen Obesity, Class III, BMI 40-49.9 (morbid obesity) (HCC) Morbid obesity Post-op pain Other acute postoperative pain Hyponatremia Hyposmolality and/or hyponatremia Hypomagnesemia Disorders of magnesium metabolism Hypokalemia Hypopotassemia Hypophosphataemia Preop examination- Primary Preoperative examination, unspecified Type 2 diabetes mellitus without complication, with long-term current use of insulin ([facility]) Marijuana user Chronic obstructive pulmonary disease, unspecified COPD type (HCC) CONCHA (obstructive sleep apnea) Obstructive sleep apnea (adult) (pediatric) On home O2 Dependence on supplemental oxygen Hyperlipidemia, unspecified hyperlipidemia type Hypertension, unspecified type Gastroesophageal reflux disease without esophagitis Esophageal reflux Congestive heart failure, unspecified HF chronicity, unspecified heart failure type (HCC) Anemia, unspecified type Leukocytosis, unspecified type Elevated platelet count Essential thrombocythemia Morbid obesity (HCC) Morbid obesity Red blood cell antibody positive Other and unspecified nonspecific immunological findings Pre-operative examination- Primary Preoperative examination, unspecified Congestive heart failure, unspecified HF chronicity, unspecified heart failure type (HCC) Hyperlipidemia, unspecified hyperlipidemia type Primary hypertension Unspecified essential hypertension Chronic obstructive pulmonary disease, unspecified COPD type (HCC) CONCHA (obstructive sleep apnea) Obstructive sleep apnea (adult) (pediatric) Gastroesophageal reflux disease without esophagitis Esophageal reflux Elevated platelet count Essential thrombocythemia Anemia, unspecified type Leukocytosis, unspecified type Cancer of sigmoid colon (HCC) Malignant neoplasm of sigmoid colon Smoldering multiple myeloma Multiple myeloma, without mention of having achieved remission Marijuana user Hyponatremia Hyposmolality and/or hyponatremia Obesity, Class III, BMI 40-49.9 (morbid obesity) (HCC) Morbid obesity Iron malabsorption (HCC) Other specified intestinal malabsorption History of gastritis Personal history of other diseases of digestive system Paroxysmal A-fib (HCC) Atrial fibrillation Multiple myeloma not having achieved remission (HCC)- Primary Multiple myeloma, without mention of having achieved remission [facility] Note Date/Time August 01, 2024 2:42 pm [facility] Medical Records Department [address] [place] [id number] H&P Exam - Hospitalist 08/01/24 1424 MR#: [id number] Acct: [id number] Name: CYN JAMES Jr. Rep #:[id number] : 1950 74 From: Janes mcfarland MD PCP: Dr. Krishna Mcdaniel, DO Status:AD M IN Location: [facility] [id number] HPI - General General Date of Admission: 08/01/24 HPI Narrative CYN JAMES, is a 74 M who presents to the hospital from his oncologist office with acute on chronic hypoxic respiratory insufficiency. Since his episode of pneumonia in April he has been wearing 2 L of oxygen continuously. Though he was told that if he was feeling short of breath he could bump it up to 3 which is what has been wearing for the last couple of weeks because he did not see a reason to go back down. He receives monthly chemo infusions for his multiple myeloma and was at his oncologist office today when he was in the 70s on his normal oxygen requirement. He denies any weight gain, no fevers, no chills, no productive cough. Chest x-ray shows fluffy infiltrates and there was a concern for left lower lobe consolidation and he does have a leukocytosis of 13.4 but noother signs of pneumonia. His BNP elevated in the setting of his chronic diastolic CHF. He did have an echo back in April 2024 with an EF of 70% and mild to moderate aortic stenosis. He was given a dose of Lasix in the ER. He does state that he has not been taking his torsemide regularly because he has been watching his great grandkids and they only have 1 bathroom in the house, also while he does follow a low-sodium diet he has not been following any kind of fluid restriction. [facility] Medical History Hypoxia PAF (paroxysmal atrial fibrillation) Bilateral lower extremity edema Atrial fibrillation Pleural effusion, bilateral Colon cancer Wears hearing aid Wears glasses Cancer Alcohol use History of steroid therapy Insulin dependent diabetes mellitus Anemia High cholesterol Former smoker CPAP (continuous positive airway pressure) dependence Sleep apnea On home oxygen therapy Shortness of breath on exertion History of edema History of Holter monitoring History of echocardiogram History of stress test Cardiology follow-up encounter History of CHF (congestive heart failure) History of atrial fibrillation History of irregular heartbeat Rash Hx of multiple myeloma Multiple myeloma Type 2 diabetes mellitus History of left heart catheterization (LHC) (~01/27/11) Mixed hyperlipidemia Essential hypertension Smoldering multiple myeloma Measles Chicken pox Erectile dysfunction Palpitations Murmur Chest pain Abnormal electrocardiogram Atherosclerotic heart disease of [place] coronary artery without angina pectoris SOB (shortness of breath) COPD (chronic obstructive pulmonary disease) Obesity RUIZ (dyspnea on exertion) CONCHA (obstructive sleep apnea) Home Medications ?Medication ?Instructions ?Recorded ?Last Taken ?Type atorvastatin 20 mg tablet (Lipitor) 20 mg PO QDAY chol esterol 08/19/17 07/31/24 History magnesium 250 mg tablet 250 mg PO QDAY supplement 07/31/24 History omega-3 fatty acids 1,000 mg 1,000 mg PO QDAY suppleme nt 08/19/17 07/31/24 History capsule cholecalciferol (vitamin D3) 50 50 mcg PO DAILY supple ment 05/14/22 07/31/24 History mcg (2,000 unit) tablet handicap placard #1 ea 01/18/23 Unknown Rx losartan 50 mg tablet 50 mg PO DAILY #90 tabs 12/2507/31/24 Rx empagliflozin 10 mg tablet 10 mg PO DAILY 02/23/2312/17 History (Jardiance) daratumumab 20 mg/mL intravenous mg .Route QMONTH 11/2307/02/24 History solution (Darzalex) potassium chloride 20 mEq 20 meq PO DAILY 12/06/2312/17 History tablet,extended release acyclovir 400 mg tablet 400 mg PO BID 12/12/2307/31 History insulin aspart U-100 100 unit/mL 36 unit subcut QACLUN CH diabetes 12/12/23 07/31/24 History (3 mL) subcutaneous pen (Novolog FlexPen U-100 Insulin aspart) insulin aspart U-100 100 unit/mL 54 unit subcut QACDIN NER diabetes 12/12/23 07/31/24 History (3 mL) subcutaneous pen (Novolog FlexPen U-100 Insulin aspart) fluticasone fur. 200 mcg-umeclid 1 inh inhalation JUDIT Y #90 days 02/09/24 07/31/24 Rx 62.5 mcg-vilant 25 mcg inhalat.powder (Trelegy Ellipta) insulin degludec 100 unit/mL 60 unit subcut DAILY 1109/1507/31/24 History subcutaneous solution (Tresiba U-100 Insulin) ondansetron HCl 8 mg tablet 8 mg PO Q8H PRN nausea and vomiting 02/28/24 08/01/24 History insulin aspart U-100 100 unit/mL 22 unit subcut DAILY 05/17/24 07/31/24 History (3 mL) subcutaneous pen (Novolog FlexPen U-100 Insulin aspart) insulin degludec 100 unit/mL (3 54 unit subcut DINNER 05/17/24 07/31/24 History mL) subcutaneous pen (Tresiba FlexTouch U-100 insulin) insulin degludec 100 unit/mL (3 60 unit subcut 1200 07/31/24 History mL) subcutaneous pen (Tresiba FlexTouch U-100 insulin) metformin 1,000 mg tablet 1,000 mg PO BIDAC 05/17/24 0 07/31/24 History tizanidine 4 mg tablet 4 - 6 mg PO TID PRN muscle 0 05/17/24 Unknown History spasticity zoledronic acid 4 mg/5 mL See Rx Instructions .Route . COMPLEX 06/01/24 06/25/24 History intravenous solution dexamethasone 4 mg tablet 8 mg PO .COMPLEX 06/07/24 History apixaban 5 mg tablet (Eliquis) 5 mg PO BID #180 tabs 0 06/19/24 07/31/24 Rx torsemide 10 mg tablet 10 mg PO QAM #30 tabs 07/31/24 Rx diltiazem HCl 240 mg 240 mg PO DAILY #90 caps 08/1707/31/24 Rx capsule,extended release 24 hr albuterol sulfate 90 mcg/actuation 1 puff inhalation Q 4H PRN 06/28/24 07/31/24 Rx aerosol inhaler (Ventolin HFA) breathing #8.5 grams pantoprazole 40 mg tablet,delayed 40 mg PO QAM #90 tab s 07/24/24 07/31/24 Rx release acetaminophen 500 mg capsule 500 mg PO Q6H PRN fever o r pain 08/01/24 08/01/24 History diphenhydramine HCl 25 mg capsule 25 mg PO .COMPLEX 08/01/24 History (Aler-Cap) famotidine 20 mg tablet (Acid 20 mg PO DAILY 08/01/24 08/01/24 History Controller) Allergy/AdvReac Type Severity Reaction Status Date / Time Penicillins Allergy Mild Rash Verified 08/01/24 11:42 Family History Father Myocardial infarction Mother Breast cancer Surgical History Status post recent transurethral resection of prostate (~02/02/23) Hx of bilateral cataract extraction Hx of esophagogastroduodenoscopy History of cataract extraction Bone spur removal Social History Smoking Status: Former smoker quit date: 04/25/02 pack-years: 31 alcohol intake: current alcohol intake frequency: holidays/special occasions only substance use type: does not use caffeine: Yes Type: coffee Number of servings: 5 ROS Constitutional Constitutional: Denies chills, fatigue, fever(s) or malaise Eyes Eyes: Denies blurry vision ENT HEENT: Denies headache(s) or nasal discharge Cardiovascular Cardiovascular: Reports edema; Denies chest pain, dyspnea on exertion, orthopneaor syncope Respiratory/Chest Respiratory/Chest: Reports shortness of breath at rest and shortness of breath with exertion; Denies cough Gastrointestinal Gastrointestinal: Denies constipation, diarrhea, nausea or vomiting Genitourinary Genitourinary: Denies dysuria Neurologic Neurologic: Denies focal weakness, numbness or tremor(s) Psychiatric Psychiatric: Denies anxiety or depression Vital Signs Vital Signs Vital Signs: 08/01/24 11:41 08/01/24 11:43 08/01/24 11:44 Temperature 98.7 F 98.7 F Temperature Source Oral Oral Pulse Rate 73 73 Respiratory Rate 20 H 20 H Respiratory Effort Respiratory Pattern Blood Pressure 161/64 H 161/64 H Blood Pressure Mean 96 96 Pulse Ox 79 90 79 Oxygen Delivery Method Nasal Cannula Nasal Cannula Nasal Cannula Oxygen Flow Rate (L/min) 3 6 3 08/01/24 12:05 08/01/24 12:08 08/01/24 12:09 Temperature Temperature Source Pulse Rate 71 Respiratory Rate 16 Respiratory Effort Short of Breath Respiratory Pattern Normal Tachypnea Blood Pressure Blood Pressure Mean Pulse Ox 90 Oxygen Delivery Method Nasal Cannula Oxygen Flow Rate (L/min) 6 08/01/24 12:44 08/01/24 12:44 08/01/24 14:00 Temperature 98.6 F 98.9 F Temperature Source Oral Oral Pulse Rate 96 89 89 Respiratory Rate 18 16 16 Respiratory Effort Respiratory Pattern Blood Pressure 144/49 H 120/86 H 156/75 H Blood Pressure Mean 80 97 102 Pulse Ox 93 98 94 Oxygen Delivery Method Room Air Room Air Nasal Cannula Oxygen Flow Rate (L/min) 2 Physical Exam Narrative General: Alert, Oriented x3, Cooperative, No apparent distress HEENT: Atraumatic, PERRLA, EOMI, Normocephalic Oral: Moist Mucosa Neck: Supple, No JVD Lungs: Diminished, Normal air movement, No rhonchi, No wheeze, No rales Cardiovascular: Regular rate, Regular Rhythm, Normal S1, Normal S2, No murmurs Abdomen: Soft, Non Tender, Non-Distended, No Hepato-splenomegaly Extremities: Edema, Capillary Refill Less than 3 Seconds Skin: No rashes, No breakdown Musculoskeletal: No Tenderness to Palpation of Joints or Extremities Neurological: No focal neurological deficits, Motor Exam 5/5 strength throughout, Sensory exam intact to light touch and pain Psych/Mental Status: Normal Affect, Appropriate Results Lab / Micro Data 08/01/24 12:04 08/01/24 12:04 Labs: Laboratory Results - last 24 hr 08/01/24 12:04: WBC 13.4 H, RBC 4.49 L, Hgb 10.1 L, Hct 34.5 L, MCV 76.8 L, MCH 22.5 L, MCHC 29.3 L, RDW Std Deviation 48.9 H, RDW Coeff of Kavya 17.8 H, Plt Count 395, MPV 10.2, Immature Gran % (Auto) 0.800, Neut % (Auto) 92.2 H, Lymph %(Auto) 3.3 L, [place]ford % (Auto) 2.5, Eos % (Auto) 0.7, Baso % (Auto) 0.5, Absolute Neuts (auto) 12.3 H, Absolute Lymphs (auto) 0.44 L, Nucleated RBC % 0, Sodium 139, Potassium 4.5, Chloride 104, Carbon Dioxide 24.3, Anion Gap 11, BUN 14, Creatinine 0.73, Est GFR (MDRD) Non-Af 97, BUN/Creatinine Ratio 19.1, Glucose 168 H, Calcium 8.8, Troponin T High Sens 39 H, NT pro BNP II 1468 H Rhythm Strip Rhythm Strip: A-fib Rate: 63 Ectopy: None Imaging Radiology Impression Chest X-Ray 08/01/24 12:18 IMPRESSION: Suspicion of left lower lobe infiltrate. Mild cardiac enlargement. Blunting of the lateral costophrenic angles due to pleural fluid and or thickening. Reading Location: [place] [id number] Assessment & Plan Assessment/Plan (1) Hypoxia: PLAN: Plan 1. Acute on chronic hypoxic respiratory insufficiency secondary to acute on chronic diastolic CHF/A-fib/HLD/essential HTN/leukocytosis ? Will continue with diuresis ? Wean his oxygen as able back to his 2 L at baseline ? Will provide him with an 1800 cc fluid restriction and daily weights ? Unclear if he has pneumonia or not given his lack of symptoms other than his elevated white blood cell count, will monitor and if it worsens can start him onantibiotics then ? Can resume his Eliquis and his home blood pressure medications ? Continue with Lipitor 2. DM2 ? Unclear as to what his insulin regimen is based on fill dates in the computer ? Continue with this on his home insulin ? Accu-Cheks ACHS ? Will monitor and make adjustments as necessary ? Continue with Jardiance but hold metformin 3. Multiple myeloma with a history of right-sided colon cancer ? PET scan recently was negative for any metastatic illness and he states that he had significant lymph nodes removed during his partial colectomy which were negative ? He was supposed to get chemotherapy for his multiple myeloma today, this can be rescheduled 4. GERD ? Stable ? Continue with PPI DVT: Eliquis 75 minutes was spent on direct patient care, including documentation as well as chart review and collaboration with colleagues Charges/Coding Visit Charges Inpatient E&M: 05596 Init Hosp L3 08/01/24 1442 <Electronically signed by Janes Pennington MD> Cosigner Signature (if applicable): CC: Dr. Krishna Mcdaniel, DO; Dr. Janes Pennington MD~ Signed [facility] Work Phone: Hospital Discharge instructions Additional Instructions Read turn to ED Tuesday and Tuesday at approximately this time for repeat doses of ertapenem antibioticWTri[facility] Work Phone: Reason for referral (narrative)* Diagnostic Procedure Only (Routine) - Authorized Specialty Diagnoses / Procedures Referred By Contac t Referred To Contact MOLECULAR & FUNCTIONAL IMAGING Diagnoses Smoldering multiple myeloma Procedures NM PET/CT WHOLE BODY INITIAL PET IMAGING FOR CT ATTENUATION WHOLE BODY Katey Booker DO [address] [place] [address] Molecular & Functional Imaging [address] [place] [address] Referral ID Status Reason Start Date Expiration Date Visits Requested Visits Authorized [id number] Authorized Auto-Generat ed Referral 2 03/19/2023 1 1 [facility] for referral (narrative)No reason for referral information availableWTriHealth [facility] Work Phone: Reason for visit Narrative* Outpatient Procedure (Routine) - Closed Specialty Diagnoses / Procedures [facility] Diagnoses History of colon cancer Procedures COLONOSCOPY SCREENING COLONOSCOPY FLX DX W/COLLJ SPEC WHEN Josephine Martinez MD [address] [place] [address] Phone: tel: fax: [facility] [address] [place] [address] Referral ID Status Reason Start Date Expiration Date V isits Requested Visits Authorized [id number] Closed Auto-Generated Referral Financial Clearance Not Required 07/16/2024 07/16/2025 1 1 [facility] for visit Narrative* Gordon Prior Authorization (Routine) - Authorized Specialty Diagnoses / Procedures Referred By Contac t Referred To Contact Diagnoses Multiple myeloma not having achieved remission (HCC) Katey Booker, DO [address] [place] [address] Phone: tel: fax: Hematology/Oncology [address] [place] [address] Phone: tel: fax: Referral ID Status Reason Start Date Expiration Date V isits Requested Visits Authorized [id number] Authorized 06/29/2023 09/27/2023 99 99 [facility] Reason for Referral Specialty Diagnoses / Procedures Referred By Contac t Referred To Contact CT IMAGING Diagnoses Multiple myeloma not having achieved remission (HCC) Procedures CT WHOLE BODY SKULL TO KNEE WO IVCON UNLISTED COMPUTED TOMOGRAPHY PROCEDURE Katey Booker Marcio, DO [address] [place] [address] Ct Imaging Referral ID Status Reason Start Date Expiration Date Visits Requested Visits Authorized [id number] Authorized Auto-Generat ed Referral 08/04/2021 09/03/2022 1 1 Specialty Diagnoses / Procedures Referred By Contac t Referred To Contact Colon and Rectal Surgery Diagnoses Cancer of ascending colon (HCC) Procedures CONSULT TO COLO-RECTAL SURGERY OFFICE/OUTPATIENT [facility] MDM 60-74 MINUTES Katey Booker Marcio, [address] [place] [address] Referral ID Status Reason Start Date Expiration Date Visits Requested Visits Authorized [id number] Authorized PCP Requested Referral 3 03/15/2024 1 1 Specialty Diagnoses / Procedures Referred By Contac t Referred To Contact CT IMAGING Diagnoses Malignant neoplasm of colon, unspecified part of colon (HCC) Procedures CT CHEST W IVCON DIAGNOSTIC COMPUTED TOMOGRAPHY THORAX W/CONTRAST Cipriano Orta MD [address] [place] [address] [place] [address] Referral ID Status Reason Start Date Expiration Date Visits Requested Visits Authorized [id number] Pending Review Auto-Generat ed Referral 3 04/21/2024 1 1 Specialty Diagnoses / Procedures Referred By Contac t Referred To Contact CT IMAGING Diagnoses Malignant neoplasm of colon, unspecified part of colon (HCC) Procedures CT ABD/PEL W IVCON CT ABD & PELVIS W/CONTRAST Cipriano Orta MD [address] [place] [address] Ct Imaging [place] [address] Referral ID Status Reason Start Date Expiration Date Visits Requested Visits Authorized [id number] Pending Review Auto-Generat ed Referral 04/21/2024 1 1 Specialty Diagnoses / Procedures Referred By Contac t Referred To Contact Cardiology Diagnoses Congestive heart failure, unspecified HF chronicity, unspecified heart failure type (HCC) Procedures CONSULT TO CARDIOLOGY OFFICE/OUTPATIENT [facility] MDM 60-74 MINUTES Cipriano Orta MD [address] [place] [address] Referral ID Status Reason Start Date Expiration Date Visits Requested Visits Authorized [id number] Authorized PCP Requested Referral 03/25/2023 03/24/2024 1 1 Specialty Diagnoses / Procedures Referred By Contac t Referred To Contact Diagnoses Malignant neoplasm of sigmoid colon (HCC) Procedures REFER TO PACC - PRE ANESTHESIA CONSULTATION CLINIC OFFICE/OUTPATIENT [facility] 60-74 MINUTES Cipriano Orta MD [address] [place] [address] Referral ID Status Reason Start Date Expiration Date Visits Requested Visits Authorized [id number] Authorized PCP Requested Referral 03/25/2023 03/24/2024 1 1 Specialty Diagnoses / Procedures Referred By Contac t Referred [facility] Diagnoses Malignant neoplasm of sigmoid colon (HCC) Procedures ECG COMPLETE ECG ROUTINE ECG W/LEAST 12 LDS W/I&R Cipriano Orta MD [address] [place] [address] [facility] [place] [address] Referral ID Status Reason Start Date Expiration Date Visits Requested Visits Authorized [id number] Authorized Auto-Generat ed Referral 03/25/2023 03/24/2024 1 1 Specialty Diagnoses / Procedures Referred By Contac t Referred To Contact Diagnoses Malignant neoplasm of sigmoid colon (HCC) Procedures [facility]/OUTPATIENT [facility] 60-74 MINUTES Cipriano Orta MD [address] [place] [id number] Referral ID Status Reason Start Date Expiration Date Visits Requested Visits Authorized [id number] Authorized PCP Requested Referral 03/25/2023 03/24/2024 1 1 Specialty Diagnoses / Procedures Referred By Contac t Referred To Contact Diagnoses Malignant neoplasm of sigmoid colon (HCC) Procedures CONSULT TO HEMATOLOGY/ONCOLOGY OFFICE/OUTPATIENT [facility] 60 MINUTES Cipriano Orta MD [address] [place] [id number] Referral ID Status Reason Start Date Expiration Date Visits Requested Visits Authorized [id number] Authorized PCP Requested Referral 06/03/2023 06/02/2024 1 1 Specialty Diagnoses / Procedures Referred By Contac t Referred To Contact General Surgery Diagnoses Open wound of abdominal wall, initial encounter Cancer of sigmoid colon (HCC) Procedures CONSULT TO GENERAL SURGERY OFFICE/OUTPATIENT [facility] 60 MINUTES Katey Booker DO [address] [place] [address] Referral ID Status Reason Start Date Expiration Date Visits Requested Visits Authorized [id number] Authorized PCP Requested Referral 07/06/2023 07/05/2024 1 1 Specialty Diagnoses / Procedures Referred By Contac t Referred To Contact MR IMAGING Diagnoses Acute low back pain, unspecified back pain laterality, unspecified whether sciatica present Multiple myeloma not having achieved remission (HCC) Procedures MRI LUMBAR SPINE WO/W IVCON MRI SPINAL CANAL LUMBAR W/O & W/CONTR MATRL Katey Booker DO [address] [place] [address] Mr Imaging [facility] Referral ID Status Reason Start Date Expiration Date Visits Requested Visits Authorized [id number] Authorized Auto-Generat ed Referral 09/28/2023 10/27/2024 1 1 Referral ID Status Reason Start Date Expiration Date V isits Requested Visits Authorized [id number] Closed Auto-Generate d Referral 09/28/2023 10/27/2024 1 1 Specialty Diagnoses / Procedures Referred By Contac t Referred To Contact CT IMAGING Diagnoses Multiple myeloma not having achieved remission (HCC) Cancer of sigmoid colon (HCC) Procedures CT ABD/PEL W IVCON CT ABD & PELVIS W/CONTRAST Katey Booker A, DO [address] [place] [address] [place] [address] Referral ID Status Reason Start Date Expiration Date Visits Requested Visits Authorized [id number] Authorized Auto-Generat ed Referral 11/23/2023 12/22/2024 1 1 Specialty Diagnoses / Procedures Referred By Contac t Referred To Contact CT IMAGING Diagnoses Multiple myeloma not having achieved remission (HCC) Cancer of sigmoid colon (HCC) Procedures CT CHEST W IVCON DIAGNOSTIC COMPUTED TOMOGRAPHY THORAX W/CONTRAST Jhony Katey Marcio, DO [address] [place] [address] [place] [address] Referral ID Status Reason Start Date Expiration Date Visits Requested Visits Authorized [id number] Authorized Auto-Generat ed Referral 11/23/2023 12/22/2024 1 1 Specialty Diagnoses / Procedures Referred By Contac t Referred To Contact CT IMAGING Diagnoses Malignant neoplasm of sigmoid colon (HCC) Procedures CT CHEST W IVCON DIAGNOSTIC COMPUTED TOMOGRAPHY THORAX W/CONTRAST David Mckinney [address] [place] [address] [place] [address] Referral ID Status Reason Start Date Expiration Date Visits Requested Visits Authorized [id number] Authorized Auto-Generat ed Referral 06/09/2024 06/08/2025 1 1 Specialty Diagnoses / Procedures Referred By Contac t Referred To Contact CT IMAGING Diagnoses Malignant neoplasm of sigmoid colon (HCC) Procedures CT ABD/PEL W IVCON CT ABD & PELVIS W/CONTRAST MckinneyHina espinalianna [address] [place] [address] [place] [address] Referral ID Status Reason Start Date Expiration Date Visits Requested Visits Authorized [id number] Authorized Auto-Generat ed Referral 06/09/2024 06/08/2025 1 1 Advance Directives No Advanced Directives Records FoundDocuments on File Type Date Recorded Patient Seaman Expl anation Advance Directive(s) 11/14/2018 4:00 PM Advance Directive Response Recorded Date/ Time Name of Medical Power of Rewinder DODIE York WENDY November 02, 2022 4:06pm Living Will Yes November 02, 2022 4:06pm Power of Rewinder Yes November 02 4:06pm Advance Directive Response Recorded Date/ Time Name of Medical Power of Rewinder DODIE York WENDY November 02, 2022 4:06pm Name of Medical Power of Rewinder December 16, 2022 6:24pm Living Will Yes December 16 6:24pm Power of Rewinder Yes December 16, 023 6:24pm Advance Directive Response Recorded Date/ Time Name of Medical Power of Rewinder DODIE York WENDY November 02, 2022 4:06pm Name of Medical Power of Rewinder December 16, 2022 11:42pm Living Will Yes December 16 11:42pm Power of Rewinder Yes December 16, 2 023 11:42pm Advance Directive Response Recorded Date/ Time Name of Medical Power of Rewinder DODIE York WENDY November 02, 2022 4:06pm Living Will No December 24 023 2:14pm Power of Rewinder No December 24, 2022 2:14pm Name of Medical Power of Rewinder December 16, 2022 11:42pm Advance Directive Response Recorded Date/ Time Name of Medical Power of Rewinder DODIE York WENDY November 02, 2022 4:06pm Name of Medical Power of Rewinder DODIE JAMES February 02, 2023 3:23pm Living Will No February 25 11:23am Power of Rewinder No February 25, 2023 11:23am Name of Medical Power of Rewinder December 16, 2022 11:42pm Advance Directive Response Recorded Date/ Time Name of Medical Power of Rewinder DODIE JAMES February 02, 2023 2:23pm Living Will No February 25 10:23am Power of Rewinder No February 25, 2023 10:23am Name of Medical Power of Rewinder December 16, 2022 10:42pm Advance Directive Response Recorded Date/ Time Living Will No February 25 10:23am Power of Rewinder No February 25, 2023 10:23am Advance Directive Response Recorded Date/ Time Living Will Yes May 17 6:22pm Power of Rewinder Yes May 17, 2024 6:22pm Name of Medical Power of Rewinder Dodie James May 17, 2024 6:22pm Advance Directive Response Recorded Date/ Time Living Will Yes May 17 6:22pm Do you have a Healthcare Power of Rewinder? Yes May 17, 2024 6:22pm Name of Medical Power of Rewinder Dodie James May 17, 2024 6:22pm Advance Directive Response Recorded Date/ Time Living Will Yes May 17 6:22pm Do you have a Healthcare Power of Rewinder? Yes May 17, 2024 6:22pm Name of Medical Power of Rewinder Dodie James May 17, 2024 6:22pm Living Will No August 01, 2024 12:14pm Do you have a Healthcare Power of Rewinder? No August 01, 2024 12:14pm Advance Directive Response Recorded Date/ Time Living Will Yes May 17 6:22pm Do you have a Healthcare Power of Rewinder? Yes May 17, 2024 6:22pm Name of Medical Power of Rewinder Ddoie James May 17, 2024 6:22pm Living Will No August 01, 2024 3:27pm Do you have a Healthcare Power of Rewinder? No August 01, 2024 3:27pm Advance Directive Response Recorded Date/ Time Living Will No August 01, 2024 3:27pm Do you have a Healthcare Power of Rewinder? No August 01, 2024 3:27pm Chief Complaint and Reason for Visit Chief Complaint COPD COPD 6 wk FU 1 M FU Reason for Visit COPD (chronic obstru ctive pulmonary disease) Obesity CONCHA (obstructive sleep apnea) COPD (chronic obstructive pulmonary disease) CONCHA (obstructive sleep apnea) Chief Complaint 6 M FU Reason for Visit COPD (chronic obstru ctive pulmonary disease) Obesity CONCHA (obstructive sleep apnea) Chief Complaint 6 M FU Shortness of breath LOW 02 J44.9 - Chronic obstructive pulmonary disease, uns J44.9 - Chronic obstructive pulmonary disease, uns Amb Documentation irregular heart rate Reason for Visit COPD (chronic obstru ctive pulmonary disease) Obesity CONCHA (obstructive sleep apnea) COPD (chronic obstructive pulmonary disease) Regular cardiac rate and rhythm COPD (chronic obstructive pulmonary disease) Abnormal electrocardiogram Dyspnea on exertion Essential hypertension Mixed hyperlipidemia Atherosclerotic heart disease of [place] coronary artery without angina pectoris Chief Complaint Shortness of breath LOW 02 J44.9 - Chronic obstructive pulmonary disease, uns J44.9 - Chronic obstructive pulmonary disease, uns Amb Documentation irregular heart rate J44.9 - Chronic obstructive pulmonary disease, uns Reason for Visit COPD (chronic obstru ctive pulmonary disease) Regular cardiac rate and rhythm COPD (chronic obstructive pulmonary disease) Abnormal electrocardiogram Dyspnea on exertion Essential hypertension Mixed hyperlipidemia Atherosclerotic heart disease of [place] coronary artery without angina pectoris Chief Complaint Shortness of breath LOW 02 J44.9 - Chronic obstructive pulmonary disease, uns J44.9 - Chronic obstructive pulmonary disease, uns Amb Documentation irregular heart rate J44.9 - Chronic obstructive pulmonary disease, uns DYSPNEA ON EXERTION Reason for Visit COPD (chronic obstru ctive pulmonary disease) Regular cardiac rate and rhythm COPD (chronic obstructive pulmonary disease) Abnormal electrocardiogram Dyspnea on exertion Essential hypertension Mixed hyperlipidemia Atherosclerotic heart disease of [place] coronary artery without angina pectoris Chief Complaint LOW 02 J44.9 - Chronic obstructive pulmonary disease, uns J44.9 - Chronic obstructive pulmonary disease, uns Amb Documentation irregular heart rate J44.9 - Chronic obstructive pulmonary disease, uns DYSPNEA ON EXERTION Cough 6 M FU Reason for Visit Regular cardiac rate and rhythm COPD (chronic obstructive pulmonary disease) Abnormal electrocardiogram Dyspnea on exertion Essential hypertension Mixed hyperlipidemia Atherosclerotic heart disease of [place] coronary artery without angina pectoris Cough COPD (chronic obstructive pulmonary disease) Hypoxia Obesity CONCHA (obstructive sleep apnea) Chief Complaint LOW 02 J44.9 - Chronic obstructive pulmonary disease, uns J44.9 - Chronic obstructive pulmonary disease, uns Amb Documentation irregular heart rate J44.9 - Chronic obstructive pulmonary disease, uns DYSPNEA ON EXERTION Cough 6 M FU MULTIPLE MYELOMA Reason for Visit Regular cardiac rate and rhythm COPD (chronic obstructive pulmonary disease) Abnormal electrocardiogram Dyspnea on exertion Essential hypertension Mixed hyperlipidemia Atherosclerotic heart disease of [place] coronary artery without angina pectoris Cough COPD (chronic obstructive pulmonary disease) Hypoxia Obesity CONCHA (obstructive sleep apnea) Chief Complaint Cough 6 M FU MULTIPLE MYELOMA 6 wk FU 3 M FU COUGH Reason for Visit Cough COPD (chronic obstructive pulmonary disease) Hypoxia Obesity CONCHA (obstructive sleep apnea) COPD (chronic obstructive pulmonary disease) Obesity CONCHA (obstructive sleep apnea) Atherosclerotic heart disease of [place] coronary artery without angina pectoris Essential hypertension Mixed hyperlipidemia Multiple myeloma Chief Complaint MULTIPLE MYELOMA 6 wk FU 3 M FU COUGH labored breathing Reason for Visit COPD (chronic obstru ctive pulmonary disease) Obesity CONCHA (obstructive sleep apnea) Atherosclerotic heart disease of [place] coronary artery without angina pectoris Essential hypertension Mixed hyperlipidemia Multiple myeloma SOB (shortness of breath) COPD (chronic obstructive pulmonary disease) Chief Complaint MULTIPLE MYELOMA 6 wk FU 3 M FU COUGH labored breathing ACUTE HYPOXIC RESPIRATORY FAILURE/CHRONIC Reason for Visit COPD (chronic obstru ctive pulmonary disease) Obesity CONCHA (obstructive sleep apnea) Atherosclerotic heart disease of [place] coronary artery without angina pectoris Essential hypertension Mixed hyperlipidemia Multiple myeloma SOB (shortness of breath) COPD (chronic obstructive pulmonary disease) Lactic acidosis Acute hyponatremia Acute on chronic heart failure with preserved ejection fraction Acute respiratory failure with hypoxia Bilateral pleural effusion Hx of multiple myeloma Hyponatremia Pulmonary edema Rash Respiratory failure with hypoxia Chief Complaint MULTIPLE MYELOMA 6 wk FU 3 M FU COUGH labored breathing ACUTE HYPOXIC RESPIRATORY FAILURE/CHRONIC ACUTE HYPOXIC RESPIRATORY FAILURE/CHRONIC ACUTE HYPOXIC RESPIRATORY FAILURE/CHRONIC ACUTE HYPOXIC RESPIRATORY FAILURE/CHRONIC ACUTE HYPOXIC RESPIRATORY FAILURE/CHRONIC ACUTE HYPOXIC RESPIRATORY FAILURE/CHRONIC Reason for Visit COPD (chronic obstru ctive pulmonary disease) Obesity CONCHA (obstructive sleep apnea) Atherosclerotic heart disease of [place] coronary artery without angina pectoris Essential hypertension Mixed hyperlipidemia Multiple myeloma SOB (shortness of breath) COPD (chronic obstructive pulmonary disease) Lactic acidosis Acute hyponatremia Acute on chronic heart failure with preserved ejection fraction Acute respiratory failure with hypoxia Bilateral pleural effusion Hx of multiple myeloma Hyponatremia Pulmonary edema Rash Respiratory failure with hypoxia Acute on chronic anemia Chief Complaint 6 wk FU 3 M FU COUGH labored breathing ACUTE HYPOXIC RESPIRATORY FAILURE/CHRONIC ACUTE HYPOXIC RESPIRATORY FAILURE/CHRONIC ACUTE HYPOXIC RESPIRATORY FAILURE/CHRONIC ACUTE HYPOXIC RESPIRATORY FAILURE/CHRONIC ACUTE HYPOXIC RESPIRATORY FAILURE/CHRONIC ACUTE HYPOXIC RESPIRATORY FAILURE/CHRONIC COMPLAINT Reason for Visit COPD (chronic obstru ctive pulmonary disease) Obesity CONCHA (obstructive sleep apnea) Atherosclerotic heart disease of [place] coronary artery without angina pectoris Essential hypertension Mixed hyperlipidemia Multiple myeloma SOB (shortness of breath) COPD (chronic obstructive pulmonary disease) Lactic acidosis Acute hyponatremia Acute on chronic anemia Acute on chronic heart failure with preserved ejection fraction Acute respiratory failure with hypoxia Bilateral pleural effusion Hyponatremia Pulmonary edema Respiratory failure with hypoxia Chief Complaint COUGH labored breathing ACUTE HYPOXIC RESPIRATORY FAILURE/CHRONIC ACUTE HYPOXIC RESPIRATORY FAILURE/CHRONIC ACUTE HYPOXIC RESPIRATORY FAILURE/CHRONIC ACUTE HYPOXIC RESPIRATORY FAILURE/CHRONIC ACUTE HYPOXIC RESPIRATORY FAILURE/CHRONIC ACUTE HYPOXIC RESPIRATORY FAILURE/CHRONIC COMPLAINT [facility] FU S/P [facility] 12/20 & 12/24 Transurethral resection of Prostate Transurethral resection of Prostate Transurethral resection of Prostate POST OP APPT COMPLAINTS Reason for Visit SOB (shortness of br eath) COPD (chronic obstructive pulmonary disease) Lactic acidosis Acute hyponatremia Acute on chronic anemia Acute on chronic heart failure with preserved ejection fraction Acute respiratory failure with hypoxia Bilateral pleural effusion Hyponatremia Pulmonary edema Respiratory failure with hypoxia BPH with elevated PSA Dyspnea on exertion Heart failure with preserved ejection fraction, NYHA class II COPD (chronic obstructive pulmonary disease) Diabetes mellitus Multiple myeloma Urinary hesitancy Heart failure with preserved ejection fraction, NYHA class II Atherosclerotic heart disease of [place] coronary artery without angina pectoris Essential hypertension Mixed hyperlipidemia Multiple myeloma Status post recent transurethral resection of prostate Heart failure with preserved ejection fraction, NYHA class II Type 2 diabetes mellitus Essential hypertension Multiple myeloma Obesity Urinary hesitancy Chief Complaint labored breathing ACUTE HYPOXIC RESPIRATORY FAILURE/CHRONIC ACUTE HYPOXIC RESPIRATORY FAILURE/CHRONIC ACUTE HYPOXIC RESPIRATORY FAILURE/CHRONIC ACUTE HYPOXIC RESPIRATORY FAILURE/CHRONIC ACUTE HYPOXIC RESPIRATORY FAILURE/CHRONIC ACUTE HYPOXIC RESPIRATORY FAILURE/CHRONIC COMPLAINT [facility] S/P [facility] 12/20 & 12/24 Transurethral resection of Prostate Transurethral resection of Prostate Transurethral resection of Prostate POST OP APPT COMPLAINTS 4-8 W FU Multiple myeloma not having achieved remission Reason for Visit SOB (shortness of br eath) COPD (chronic obstructive pulmonary disease) Lactic acidosis Acute hyponatremia Acute on chronic anemia Acute on chronic heart failure with preserved ejection fraction Acute respiratory failure with hypoxia Bilateral pleural effusion Hyponatremia Pulmonary edema Respiratory failure with hypoxia BPH with elevated PSA Dyspnea on exertion Heart failure with preserved ejection fraction, NYHA class II COPD (chronic obstructive pulmonary disease) Diabetes mellitus Multiple myeloma Urinary hesitancy Heart failure with preserved ejection fraction, NYHA class II Atherosclerotic heart disease of [place] coronary artery without angina pectoris Essential hypertension Mixed hyperlipidemia Multiple myeloma Status post recent transurethral resection of prostate Heart failure with preserved ejection fraction, NYHA class II Type 2 diabetes mellitus Essential hypertension Multiple myeloma Obesity Urinary hesitancy Heart failure with preserved ejection fraction, NYHA class II Atherosclerotic heart disease of [place] coronary artery without angina pectoris Essential hypertension Mixed hyperlipidemia Multiple myeloma Chief Complaint POST OP APPT COMPLAINTS 4-8 W FU Multiple myeloma not having achieved remission PAPER & E ORDER/2 DRS Reason for Visit Heart failure with p reserved ejection fraction, NYHA class II Type 2 diabetes mellitus Essential hypertension Multiple myeloma Obesity Urinary hesitancy Heart failure with preserved ejection fraction, NYHA class II Atherosclerotic heart disease of [place] coronary artery without angina pectoris Essential hypertension Mixed hyperlipidemia Multiple myeloma Chief Complaint 4-8 W FU Multiple myeloma not having achieved remission PAPER & E ORDER/2 DRS Reason for Visit Heart failure with p reserved ejection fraction, NYHA class II Atherosclerotic heart disease of [place] coronary artery without angina pectoris Essential hypertension Mixed hyperlipidemia Multiple myeloma Chief Complaint Admit Date PNEUMONIA, UNSPECIFIED ORGANISM May 17, 2024 4:07pm PNEUMONIA, UNSPECIFIED ORGANISM May 17, 2024 4:18pm PNEUMONIA, UNSPECIFIED ORGANISM May 18, 2024 1:53pm PNEUMONIA, UNSPECIFIED ORGANISM May 19, 2024 12:10pm PNEUMONIA, UNSPECIFIED ORGANISM May 20, 2024 2:04pm PNEUMONIA, UNSPECIFIED ORGANISM May 21, 2024 5:16pm THORACIC SPONDYLOSIS May 28, 2024 11:18am [place] [facility] 05/17June 01 3:31pm Hospital F/U recommended by last remodeler repairer June 07, 2024 3:13pm [facility] June 13, 2024 12:27pm PAROXYSMAL ATRIAL FIBRILLATION June 20, 2024 11:53am PAROXYSMAL ATRIAL FIBRILLATION June 20, 2024 12:08pm sleep apnea with respiratory failure Jun 8:15pm COLORECTAL July 03, 2024 8:4 0am COPD July 06, 2024 10: 44am Reason for Visit Admit Date Community acquired pneumonia April 4:07pm Hypoxia May 17, 2024 4 :07pm Type 2 diabetes mellitus May 17, 2 025 4:07pm Chronic low back pain May 17, 2024 4:07pm Atrial fibrillation May 17, 2024 4 :07pm Bilateral lower extremity edema May 17, 2024 4:07pm Pleural effusion, bilateral April 4:07pm COPD (chronic obstructive pulmonary dise ase) May 17, 2024 4:07pm 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 June 01, 2024 3:31pm Essential hypertension June 01 3:31pm Heart failure with preserved ejection fraction, NYHA class II June 01, 2024 3:31pm Mixed hyperlipidemia June 01, 2024 3:31pm Multiple myeloma June 01, 2024 3 :31pm PAF (paroxysmal atrial fibrillation) Feb ruary 2024 3:31pm Hypoxia June 07, 2024 3:13pm COPD (chronic obstructive pulmonary dise ase) June 07, 2024 3:13pm Heart failure with preserved ejection fraction, NYHA class II June 07, 2024 3:13pm Obesity June 07, 2024 3:13pm CONCHA (obstructive sleep apnea) May 262024 3:13pm PAF (paroxysmal atrial fibrillation) Feb ruary 2024 3:13pm Community acquired pneumonia June 132024 12:27pm Essential hypertension June 13 12:27pm Heart failure with preserved ejection fraction, NYHA class II June 13, 2024 12:27pm PAF (paroxysmal atrial fibrillation) Feb ruary 2024 12:27pm Chief Complaint Admit Date PNEUMONIA, UNSPECIFIED ORGANISM May 17, 2024 4:07pm PNEUMONIA, UNSPECIFIED ORGANISM May 17, 2024 4:18pm PNEUMONIA, UNSPECIFIED ORGANISM May 18, 2024 1:53pm PNEUMONIA, UNSPECIFIED ORGANISM May 19, 2024 12:10pm PNEUMONIA, UNSPECIFIED ORGANISM May 20, 2024 2:04pm PNEUMONIA, UNSPECIFIED ORGANISM May 21, 2024 5:16pm THORACIC SPONDYLOSIS May 28, 2024 11:18am [place] [facility] 05/17June 01 3:31pm Hospital F/U recommended by last remodeler repairer June 07, 2024 3:13pm [facility] June 13, 2024 12:27pm PAROXYSMAL ATRIAL FIBRILLATION June 20, 2024 11:53am PAROXYSMAL ATRIAL FIBRILLATION June 20, 2024 12:08pm sleep apnea with respiratory failure Jun 8:15pm COLORECTAL July 03, 2024 8:4 0am COPD July 06, 2024 10: 44am MED FU July 18, 2024 10: 27am SOB August 01, 2024 11:4 0am Reason for Visit Admit Date Community acquired pneumonia April 4:07pm Type 2 diabetes mellitus May 17, 2 025 4:07pm Chronic low back pain May 17, 2024 4:07pm Hypoxia May 17, 2024 4 :07pm Atrial fibrillation May 17, 2024 4 :07pm Bilateral lower extremity edema May 17, 2024 4:07pm Pleural effusion, bilateral April 4:07pm COPD (chronic obstructive pulmonary dise ase) May 17, 2024 4:07pm 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 June 01, 2024 3:31pm Essential hypertension June 01 3:31pm Heart failure with preserved ejection fraction, NYHA class II June 01, 2024 3:31pm Mixed hyperlipidemia June 01, 2024 3:31pm Multiple myeloma June 01, 2024 3 :31pm PAF (paroxysmal atrial fibrillation) Feb ruary 2024 3:31pm COPD (chronic obstructive pulmonary dise ase) June 07, 2024 3:13pm Heart failure with preserved ejection fraction, NYHA class II June 07, 2024 3:13pm Hypoxia June 07, 2024 3:13pm Obesity June 07, 2024 3:13pm CONCHA (obstructive sleep apnea) May 262024 3:13pm PAF (paroxysmal atrial fibrillation) Feb ruary 2024 3:13pm Community acquired pneumonia June 132024 12:27pm Essential hypertension June 13 12:27pm Heart failure with preserved ejection fraction, NYHA class II June 13, 2024 12:27pm PAF (paroxysmal atrial fibrillation) Feb ruary 2024 12:27pm Spondylolisthesis, lumbar region June 242024 10:27am COPD (chronic obstructive pulmonary dise ase) July 18, 2024 10:27am Diabetes mellitus July 18, 2024 10: 27am Hypoxia July 18, 2024 10: 27am Mixed hyperlipidemia July 18, 2024 10 :27am Multiple myeloma July 18, 2024 10: 27am Obesity July 18, 2024 10: 27am PAF (paroxysmal atrial fibrillation) [facility] 2024 10:27am Chief Complaint Admit Date PNEUMONIA, UNSPECIFIED ORGANISM May 17, 2024 4:07pm PNEUMONIA, UNSPECIFIED ORGANISM May 17, 2024 4:18pm PNEUMONIA, UNSPECIFIED ORGANISM May 18, 2024 1:53pm PNEUMONIA, UNSPECIFIED ORGANISM May 19, 2024 12:10pm PNEUMONIA, UNSPECIFIED ORGANISM May 20, 2024 2:04pm PNEUMONIA, UNSPECIFIED ORGANISM May 21, 2024 5:16pm THORACIC SPONDYLOSIS May 28, 2024 11:18am [place] [facility] 05/17June 01 3:31pm Hospital F/U recommended by last remodeler repairer June 07, 2024 3:13pm [facility] fu June 13, 2024 12:27pm PAROXYSMAL ATRIAL FIBRILLATION June 20, 2024 11:53am PAROXYSMAL ATRIAL FIBRILLATION June 20, 2024 12:08pm sleep apnea with respiratory failure Jun 8:15pm COLORECTAL July 03, 2024 8:4 0am COPD July 06, 2024 10: 44am MED FU July 18, 2024 10: 27am CHF EXACERBATION August 01, 2024 2:07 pm CHF EXACERBATION August 01, 2024 2:24 pm Reason for Visit Admit Date Community acquired pneumonia April 4:07pm Type 2 diabetes mellitus May 17, 2 025 4:07pm Chronic low back pain May 17, 2024 4:07pm Hypoxia May 17, 2024 4 :07pm Atrial fibrillation May 17, 2024 4 :07pm Bilateral lower extremity edema May 17, 2024 4:07pm Pleural effusion, bilateral April 4:07pm COPD (chronic obstructive pulmonary dise ase) May 17, 2024 4:07pm 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 June 01, 2024 3:31pm Essential hypertension June 01 3:31pm Heart failure with preserved ejection fraction, NYHA class II June 01, 2024 3:31pm Mixed hyperlipidemia June 01, 2024 3:31pm Multiple myeloma June 01, 2024 3 :31pm PAF (paroxysmal atrial fibrillation) Feb ruary 2024 3:31pm COPD (chronic obstructive pulmonary dise ase) June 07, 2024 3:13pm Heart failure with preserved ejection fraction, NYHA class II June 07, 2024 3:13pm Hypoxia June 07, 2024 3:13pm Obesity June 07, 2024 3:13pm CONCHA (obstructive sleep apnea) May 262024 3:13pm PAF (paroxysmal atrial fibrillation) Feb ruary 2024 3:13pm Community acquired pneumonia June 132024 12:27pm Essential hypertension June 13 12:27pm Heart failure with preserved ejection fraction, NYHA class II June 13, 2024 12:27pm PAF (paroxysmal atrial fibrillation) Feb ruary 2024 12:27pm Spondylolisthesis, lumbar region June 242024 10:27am COPD (chronic obstructive pulmonary dise ase) July 18, 2024 10:27am Diabetes mellitus July 18, 2024 10: 27am Hypoxia July 18, 2024 10: 27am Mixed hyperlipidemia July 18, 2024 10 :27am Multiple myeloma July 18, 2024 10: 27am Obesity July 18, 2024 10: 27am PAF (paroxysmal atrial fibrillation) [facility] 2024 10:27am Acute dyspnea August 01, 2024 2:07 pm CHF (congestive heart failure) July 2:07pm Chronic anticoagulation August 01, 2024 2:07pm Elevated troponin August 01, 2024 2:07 pm History of multiple myeloma August 01, 2 025 2:07pm Hypoxia August 01, 2024 2:07 pm Chronic a-fib August 01, 2024 2:07 pm History of COPD August 01, 2024 2:07 pm Chief Complaint Admit Date PNEUMONIA, UNSPECIFIED ORGANISM May 17, 2024 4:07pm PNEUMONIA, UNSPECIFIED ORGANISM May 17, 2024 4:18pm PNEUMONIA, UNSPECIFIED ORGANISM May 18, 2024 1:53pm PNEUMONIA, UNSPECIFIED ORGANISM May 19, 2024 12:10pm PNEUMONIA, UNSPECIFIED ORGANISM May 20, 2024 2:04pm PNEUMONIA, UNSPECIFIED ORGANISM May 21, 2024 5:16pm THORACIC SPONDYLOSIS May 28, 2024 11:18am [place] [facility] 05/17June 01 3:31pm Hospital F/U recommended by last remodeler repairer June 07, 2024 3:13pm [facility] fu June 13, 2024 12:27pm PAROXYSMAL ATRIAL FIBRILLATION June 20, 2024 11:53am PAROXYSMAL ATRIAL FIBRILLATION June 20, 2024 12:08pm sleep apnea with respiratory failure [facility] 2024 8:15pm COLORECTAL July 03, 2024 8:4 0am COPD July 06, 2024 10: 44am MED FU July 18, 2024 10: 27am CHF EXACERBATION August 01, 2024 2:07 pm CHF EXACERBATION August 01, 2024 2:24 pm CHF EXACERBATION August 02, 2024 7:1 4am CHF EXACERBATION August 03, 2024 12: 11pm Reason for Visit Admit Date Community acquired pneumonia April 4:07pm Type 2 diabetes mellitus May 17, 4:07pm Chronic low back pain May 17, 2024 4:07pm Hypoxia May 17, 2024 4 :07pm Atrial fibrillation May 17, 2024 4 :07pm Bilateral lower extremity edema May 17, 2024 4:07pm Pleural effusion, bilateral April 4:07pm COPD (chronic obstructive pulmonary dise ase) May 17, 2024 4:07pm 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 June 01, 2024 3:31pm Essential hypertension June 01 3:31pm Heart failure with preserved ejection fraction, NYHA class II June 01, 2024 3:31pm Mixed hyperlipidemia June 01, 2024 3:31pm Multiple myeloma June 01, 2024 3 :31pm PAF (paroxysmal atrial fibrillation) [facility] 2024 3:31pm COPD (chronic obstructive pulmonary dise ase) June 07, 2024 3:13pm Heart failure with preserved ejection fraction, NYHA class II June 07, 2024 3:13pm Hypoxia June 07, 2024 3:13pm Obesity June 07, 2024 3:13pm CONCHA (obstructive sleep apnea) May 262024 3:13pm PAF (paroxysmal atrial fibrillation) Feb ruary 2024 3:13pm Community acquired pneumonia June 132024 12:27pm Essential hypertension June 13 12:27pm Heart failure with preserved ejection fraction, NYHA class II June 13, 2024 12:27pm PAF (paroxysmal atrial fibrillation) Feb ruary 2024 12:27pm Spondylolisthesis, lumbar region June 242024 10:27am COPD (chronic obstructive pulmonary dise ase) July 18, 2024 10:27am Diabetes mellitus July 18, 2024 10: 27am Hypoxia July 18, 2024 10: 27am Mixed hyperlipidemia July 18, 2024 10 :27am Multiple myeloma July 18, 2024 10: 27am Obesity July 18, 2024 10: 27am PAF (paroxysmal atrial fibrillation) [facility] 2024 10:27am Acute dyspnea August 01, 2024 2:07 pm Acute on chronic heart failu re with preserved ejection fraction August 01, 2024 2:07pm CHF (congestive heart failure) July 2:07pm Chronic anticoagulation August 01, 2024 2:07pm Elevated troponin August 01, 2024 2:07 pm History of multiple myeloma August 01, 025 2:07pm Hypoxia August 01, 2024 2:07 pm Leukocytosis August 01, 2024 2:07 pm Microcytic anemia August 01, 2024 2:07 pm Chronic a-fib August 01, 2024 2:07 pm History of COPD August 01, 2024 2:07 pm Chief Complaint Admit Date PNEUMONIA, UNSPECIFIED ORGANISM May 17, 2024 4:07pm PNEUMONIA, UNSPECIFIED ORGANISM May 17, 2024 4:18pm PNEUMONIA, UNSPECIFIED ORGANISM May 18, 2024 1:53pm PNEUMONIA, UNSPECIFIED ORGANISM May 19, 2024 12:10pm PNEUMONIA, UNSPECIFIED ORGANISM May 20, 2024 2:04pm PNEUMONIA, UNSPECIFIED ORGANISM May 21, 2024 5:16pm THORACIC SPONDYLOSIS May 28, 2024 11:18am [place] [facility] 05/17June 01 3:31pm Hospital F/U recommended by last remodeler repairer June 07, 2024 3:13pm [facility] June 13, 2024 12:27pm PAROXYSMAL ATRIAL FIBRILLATION June 20, 2024 11:53am PAROXYSMAL ATRIAL FIBRILLATION June 20, 2024 12:08pm sleep apnea with respiratory failure [facility] 2024 8:15pm COLORECTAL July 03, 2024 8:4 0am COPD July 06, 2024 10: 44am MED FU July 18, 2024 10: 27am CHF EXACERBATION August 01, 2024 2:07 pm CHF EXACERBATION August 01, 2024 2:24 pm CHF EXACERBATION August 02, 2024 7:1 4am CHF EXACERBATION August 03, 2024 12: 11pm [facility] August 14, 2024 1:2 8pm 3 M F/U September 04, 2024 12:32 pm Reason for Visit Admit Date Community acquired pneumonia April 4:07pm Type 2 diabetes mellitus May 17, 025 4:07pm Chronic low back pain May 17, 2024 4:07pm Hypoxia May 17, 2024 4 :07pm Atrial fibrillation May 17, 2024 4 :07pm Bilateral lower extremity edema May 17, 2024 4:07pm Pleural effusion, bilateral April 4:07pm COPD (chronic obstructive pulmonary dise ase) May 17, 2024 4:07pm 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 June 01, 2024 3:31pm Essential hypertension June 01 3:31pm Heart failure with preserved ejection fraction, NYHA class II June 01, 2024 3:31pm Mixed hyperlipidemia June 01, 2024 3:31pm Multiple myeloma June 01, 2024 3 :31pm PAF (paroxysmal atrial fibrillation) [facility] 2024 3:31pm COPD (chronic obstructive pulmonary dise ase) June 07, 2024 3:13pm Heart failure with preserved ejection fraction, NYHA class II June 07, 2024 3:13pm Hypoxia June 07, 2024 3:13pm Obesity June 07, 2024 3:13pm CONCHA (obstructive sleep apnea) May 262024 3:13pm PAF (paroxysmal atrial fibrillation) [facility] 20[facility] 3:13pm Community acquired pneumonia June 132024 12:27pm Essential hypertension June 13 12:27pm Heart failure with preserved ejection fraction, NYHA class II June 13, 2024 12:27pm PAF (paroxysmal atrial fibrillation) [facility] 2024 12:27pm Spondylolisthesis, lumbar region June 242024 10:27am COPD (chronic obstructive pulmonary dise ase) July 18, 2024 10:27am Diabetes mellitus July 18, 2024 10: 27am Hypoxia July 18, 2024 10: 27am Mixed hyperlipidemia July 18, 2024 10 :27am Multiple myeloma July 18, 2024 10: 27am Obesity July 18, 2024 10: 27am PAF (paroxysmal atrial fibrillation) [facility] 2024 10:27am Leukocytosis August 01, 2024 2:07 pm Acute dyspnea August 01, 2024 2:07 pm Acute on chronic heart failu re with preserved ejection fraction August 01, 2024 2:07pm CHF (congestive heart failure) July 2:07pm Elevated troponin August 01, 2024 2:07 pm Hypoxia August 01, 2024 2:07 pm Chronic a-fib August 01, 2024 2:07 pm Chronic anticoagulation August 01, 2024 2:07pm History of COPD August 01, 2024 2:07 pm History of multiple myeloma August 01, 2 025 2:07pm Microcytic anemia August 01, 2024 2:07 pm Dyspnea on exertion August 14, 2024 1:2 8pm Essential hypertension August 14, 2024 1:28pm Heart failure with preserved ejection fraction, NYHA class II August 14, 2024 1:28pm Multiple myeloma August 14, 2024 1:2 8pm Wheeze September 04, 2024 12:32 pm Chief Complaint Admit Date PNEUMONIA, UNSPECIFIED ORGANISM May 17, 2024 4:07pm PNEUMONIA, UNSPECIFIED ORGANISM May 17, 2024 4:18pm PNEUMONIA, UNSPECIFIED ORGANISM May 18, 2024 1:53pm PNEUMONIA, UNSPECIFIED ORGANISM May 19, 2024 12:10pm PNEUMONIA, UNSPECIFIED ORGANISM May 20, 2024 2:04pm PNEUMONIA, UNSPECIFIED ORGANISM May 21, 2024 5:16pm THORACIC SPONDYLOSIS May 28, 2024 11:18am [place] [facility] 05/17June 01 3:31pm Hospital F/U recommended by last remodeler repairer June 07, 2024 3:13pm [facility] June 13, 2024 12:27pm PAROXYSMAL ATRIAL FIBRILLATION June 20, 2024 11:53am PAROXYSMAL ATRIAL FIBRILLATION June 20, 2024 12:08pm sleep apnea with respiratory failure Jun 8:15pm COLORECTAL July 03, 2024 8:4 0am COPD July 06, 2024 10: 44am MED FU July 18, 2024 10: 27am CHF EXACERBATION August 01, 2024 2:07 pm CHF EXACERBATION August 01, 2024 2:24 pm CHF EXACERBATION August 02, 2024 7:1 4am CHF EXACERBATION August 03, 2024 12: 11pm [facility] August 14, 2024 1:2 8pm 3 M F/U September 04, 2024 12:32 pm INT LAB AND XRAY ORDERS September 04, 2024 1 :33pm Reason for Visit Admit Date Community acquired pneumonia April 4:07pm Type 2 diabetes mellitus May 17, 025 4:07pm Chronic low back pain May 17, 2024 4:07pm Hypoxia May 17, 2024 4 :07pm Atrial fibrillation May 17, 2024 4 :07pm Bilateral lower extremity edema May 17, 2024 4:07pm Pleural effusion, bilateral April 4:07pm COPD (chronic obstructive pulmonary dise ase) May 17, 2024 4:07pm 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 June 01, 2024 3:31pm Essential hypertension June 01 3:31pm Heart failure with preserved ejection fraction, NYHA class II June 01, 2024 3:31pm Mixed hyperlipidemia June 01, 2024 3:31pm Multiple myeloma June 01, 2024 3 :31pm PAF (paroxysmal atrial fibrillation) Feb ruvaiden 2024 3:31pm COPD (chronic obstructive pulmonary dise ase) June 07, 2024 3:13pm Heart failure with preserved ejection fraction, NYHA class II June 07, 2024 3:13pm Hypoxia June 07, 2024 3:13pm Obesity June 07, 2024 3:13pm CONCHA (obstructive sleep apnea) May 262024 3:13pm PAF (paroxysmal atrial fibrillation) Feb ruary 2024 3:13pm Community acquired pneumonia June 132024 12:27pm Essential hypertension June 13 12:27pm Heart failure with preserved ejection fraction, NYHA class II June 13, 2024 12:27pm PAF (paroxysmal atrial fibrillation) Feb ruary 2024 12:27pm Spondylolisthesis, lumbar region June 242024 10:27am COPD (chronic obstructive pulmonary dise ase) July 18, 2024 10:27am Diabetes mellitus July 18, 2024 10: 27am Hypoxia July 18, 2024 10: 27am Mixed hyperlipidemia July 18, 2024 10 :27am Multiple myeloma July 18, 2024 10: 27am Obesity July 18, 2024 10: 27am PAF (paroxysmal atrial fibrillation) [facility] 2024 10:27am Leukocytosis August 01, 2024 2:07 pm Acute dyspnea August 01, 2024 2:07 pm Acute on chronic heart failu re with preserved ejection fraction August 01, 2024 2:07pm CHF (congestive heart failure) July 2:07pm Elevated troponin August 01, 2024 2:07 pm Hypoxia August 01, 2024 2:07 pm Chronic a-fib August 01, 2024 2:07 pm Chronic anticoagulation August 01, 2024 2:07pm History of COPD August 01, 2024 2:07 pm History of multiple myeloma August 01, 025 2:07pm Microcytic anemia August 01, 2024 2:07 pm Dyspnea on exertion August 14, 2024 1:2 8pm Essential hypertension August 14, 2024 1:28pm Heart failure with preserved ejection fraction, NYHA class II August 14, 2024 1:28pm Multiple myeloma August 14, 2024 1:2 8pm COPD (chronic obstructive pulmonary dise ase) September 04, 2024 12:32pm Heart failure with preserved ejection fraction, NYHA class II September 04, 2024 12:32pm On home oxygen therapy September 04, 2024 12 :32pm CONCHA (obstructive sleep apnea) September 04, 2024 12:32pm Chief Complaint Admit Date THORACIC SPONDYLOSIS May 28, 2024 11:18am [place] [facility] 05/17June 01 3:31pm Hospital F/U recommended by last remodeler repairer June 07, 2024 3:13pm [facility] June 13, 2024 12:27pm PAROXYSMAL ATRIAL FIBRILLATION June 20, 2024 11:53am PAROXYSMAL ATRIAL FIBRILLATION June 20, 2024 12:08pm sleep apnea with respiratory failure [facility] 2024 8:15pm COLORECTAL July 03, 2024 8:4 0am COPD July 06, 2024 10: 44am MED FU July 18, 2024 10: 27am CHF EXACERBATION August 01, 2024 2:07 pm CHF EXACERBATION August 01, 2024 2:24 pm CHF EXACERBATION August 02, 2024 7:1 4am CHF EXACERBATION August 03, 2024 12: 11pm [facility] FU August 14, 2024 1:2 8pm 3 M F/U September 04, 2024 12:32 pm INT LAB AND XRAY ORDERS September 04, 2024 1 :33pm Reason for Visit Admit Date 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 June 01, 2024 3:31pm Essential hypertension June 01 3:31pm Heart failure with preserved ejection fraction, NYHA class II June 01, 2024 3:31pm Mixed hyperlipidemia June 01, 2024 3:31pm Multiple myeloma June 01, 2024 3 :31pm PAF (paroxysmal atrial fibrillation) Feb ruary 2024 3:31pm COPD (chronic obstructive pulmonary dise ase) June 07, 2024 3:13pm Heart failure with preserved ejection fraction, NYHA class II June 07, 2024 3:13pm Hypoxia June 07, 2024 3:13pm Obesity June 07, 2024 3:13pm CONCHA (obstructive sleep apnea) May 262024 3:13pm PAF (paroxysmal atrial fibrillation) Feb ruary 2024 3:13pm Community acquired pneumonia June 132024 12:27pm Essential hypertension June 13 12:27pm Heart failure with preserved ejection fraction, NYHA class II June 13, 2024 12:27pm PAF (paroxysmal atrial fibrillation) Feb ruary 2024 12:27pm Spondylolisthesis, lumbar region June 242024 10:27am COPD (chronic obstructive pulmonary dise ase) July 18, 2024 10:27am Diabetes mellitus July 18, 2024 10: 27am Hypoxia July 18, 2024 10: 27am Mixed hyperlipidemia July 18, 2024 10 :27am Multiple myeloma July 18, 2024 10: 27am Obesity July 18, 2024 10: 27am PAF (paroxysmal atrial fibrillation) [facility] 2024 10:27am Leukocytosis August 01, 2024 2:07 pm Acute dyspnea August 01, 2024 2:07 pm Acute on chronic heart failu re with preserved ejection fraction August 01, 2024 2:07pm CHF (congestive heart failure) July 2:07pm Elevated troponin August 01, 2024 2:07 pm Hypoxia August 01, 2024 2:07 pm Chronic a-fib August 01, 2024 2:07 pm Chronic anticoagulation August 01, 2024 2:07pm History of COPD August 01, 2024 2:07 pm History of multiple myeloma August 01, 025 2:07pm Microcytic anemia August 01, 2024 2:07 pm Dyspnea on exertion August 14, 2024 1:2 8pm Essential hypertension August 14, 2024 1:28pm Heart failure with preserved ejection fraction, NYHA class II August 14, 2024 1:28pm Multiple myeloma August 14, 2024 1:2 8pm COPD (chronic obstructive pulmonary dise ase) September 04, 2024 12:32pm Heart failure with preserved ejection fraction, NYHA class II September 04, 2024 12:32pm On home oxygen therapy September 04, 2024 12 :32pm CONCHA (obstructive sleep apnea) September 04, 2024 12:32pm Chief Complaint Admit Date THORACIC SPONDYLOSIS May 28, 2024 11:18am [place] [facility] 05/17June 01 3:31pm Hospital F/U recommended by last remodeler repairer June 07, 2024 3:13pm [facility] June 13, 2024 12:27pm PAROXYSMAL ATRIAL FIBRILLATION June 20, 2024 11:53am PAROXYSMAL ATRIAL FIBRILLATION June 20, 2024 12:08pm sleep apnea with respiratory failure [facility] 2024 8:15pm COLORECTAL July 03, 2024 8:4 0am COPD July 06, 2024 10: 44am MED FU July 18, 2024 10: 27am CHF EXACERBATION August 01, 2024 2:07 pm CHF EXACERBATION August 01, 2024 2:24 pm CHF EXACERBATION August 02, 2024 7:1 4am CHF EXACERBATION August 03, 2024 12: 11pm [facility] August 14, 2024 1:2 8pm 3 M F/U September 04, 2024 12:32 pm INT LAB AND XRAY ORDERS September 04, 2024 1 :33pm SOB/Edema (Trinh) September 21, 2024 1:57p m Reason for Visit Admit Date 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 June 01, 2024 3:31pm Essential hypertension June 01 3:31pm Heart failure with preserved ejection fraction, NYHA class II June 01, 2024 3:31pm Mixed hyperlipidemia June 01, 2024 3:31pm Multiple myeloma June 01, 2024 3 :31pm PAF (paroxysmal atrial fibrillation) Feb ruary 2024 3:31pm COPD (chronic obstructive pulmonary dise ase) June 07, 2024 3:13pm Heart failure with preserved ejection fraction, NYHA class II June 07, 2024 3:13pm Hypoxia June 07, 2024 3:13pm Obesity June 07, 2024 3:13pm CONCHA (obstructive sleep apnea) May 262024 3:13pm PAF (paroxysmal atrial fibrillation) Feb ruary 2024 3:13pm Community acquired pneumonia June 132024 12:27pm Essential hypertension June 13 12:27pm Heart failure with preserved ejection fraction, NYHA class II June 13, 2024 12:27pm PAF (paroxysmal atrial fibrillation) Feb ruary 2024 12:27pm Spondylolisthesis, lumbar region June 242024 10:27am COPD (chronic obstructive pulmonary dise ase) July 18, 2024 10:27am Diabetes mellitus July 18, 2024 10: 27am Hypoxia July 18, 2024 10: 27am Mixed hyperlipidemia July 18, 2024 10 :27am Multiple myeloma July 18, 2024 10: 27am Obesity July 18, 2024 10: 27am PAF (paroxysmal atrial fibrillation) Jun 10:27am Leukocytosis August 01, 2024 2:07 pm Acute dyspnea August 01, 2024 2:07 pm Acute on chronic heart failu re with preserved ejection fraction August 01, 2024 2:07pm CHF (congestive heart failure) July 2:07pm Elevated troponin August 01, 2024 2:07 pm Hypoxia August 01, 2024 2:07 pm Chronic a-fib August 01, 2024 2:07 pm Chronic anticoagulation August 01, 2024 2:07pm History of COPD August 01, 2024 2:07 pm History of multiple myeloma August 01, 025 2:07pm Microcytic anemia August 01, 2024 2:07 pm Dyspnea on exertion August 14, 2024 1:2 8pm Essential hypertension August 14, 2024 1:28pm Heart failure with preserved ejection fraction, NYHA class II August 14, 2024 1:28pm Multiple myeloma August 14, 2024 1:2 8pm COPD (chronic obstructive pulmonary dise ase) September 04, 2024 12:32pm Heart failure with preserved ejection fraction, NYHA class II September 04, 2024 12:32pm On home oxygen therapy September 04, 2024 12 :32pm CONCHA (obstructive sleep apnea) September 04, 2024 12:32pm PAF (paroxysmal atrial fibrillation) September 21, 2024 1:57pm Chief Complaint Admit Date [facility] June 13, 2024 12:27pm PAROXYSMAL ATRIAL FIBRILLATION June 20, 2024 11:53am PAROXYSMAL ATRIAL FIBRILLATION June 20, 2024 12:08pm sleep apnea with respiratory failure [facility] 2024 8:15pm COLORECTAL July 03, 2024 8:4 0am COPD July 06, 2024 10: 44am MED FU July 18, 2024 10: 27am CHF EXACERBATION August 01, 2024 2:07 pm CHF EXACERBATION August 01, 2024 2:24 pm CHF EXACERBATION August 02, 2024 7:1 4am CHF EXACERBATION August 03, 2024 12: 11pm [facility] August 14, 2024 1:2 8pm 3 M F/U September 04, 2024 12:32 pm INT LAB AND XRAY ORDERS September 04, 2024 1 :33pm SOB/Edema (Trinh) September 21, 2024 1:57p m AFIB AND CHF October 01, 2024 6:37a m Reason for Visit Admit Date Community acquired pneumonia June 132024 12:27pm Essential hypertension June 13 12:27pm Heart failure with preserved ejection fraction, NYHA class II June 13, 2024 12:27pm PAF (paroxysmal atrial fibrillation) Feb ruary 2024 12:27pm Spondylolisthesis, lumbar region June 242024 10:27am COPD (chronic obstructive pulmonary dise ase) July 18, 2024 10:27am Hypoxia July 18, 2024 10: 27am Mixed hyperlipidemia July 18, 2024 10 :27am Obesity July 18, 2024 10: 27am PAF (paroxysmal atrial fibrillation) [facility] 2024 10:27am Diabetes mellitus July 18, 2024 10: 27am Multiple myeloma July 18, 2024 10: 27am Leukocytosis August 01, 2024 2:07 pm Acute dyspnea August 01, 2024 2:07 pm Acute on chronic heart failu re with preserved ejection fraction August 01, 2024 2:07pm CHF (congestive heart failure) July 2:07pm Elevated troponin August 01, 2024 2:07 pm Hypoxia August 01, 2024 2:07 pm Chronic a-fib August 01, 2024 2:07 pm Chronic anticoagulation August 01, 2024 2:07pm History of COPD August 01, 2024 2:07 pm History of multiple myeloma August 01, 2 025 2:07pm Microcytic anemia August 01, 2024 2:07 pm Dyspnea on exertion August 14, 2024 1:2 8pm Essential hypertension August 14, 2024 1:28pm Heart failure with preserved ejection fraction, NYHA class II August 14, 2024 1:28pm Multiple myeloma August 14, 2024 1:2 8pm COPD (chronic obstructive pulmonary dise ase) September 04, 2024 12:32pm Heart failure with preserved ejection fraction, NYHA class II September 04, 2024 12:32pm On home oxygen therapy September 04, 2024 12 :32pm CONCHA (obstructive sleep apnea) September 04, 2024 12:32pm Abnormal electrocardiogram September 21 1:57pm Dyspnea on exertion September 21, 2024 1:57p m Essential hypertension September 21, 2024 1: 57pm Heart failure with preserved ejection fraction, NYHA class II September 21, 2024 1:57pm History of left heart catheterization (L HC) September 21, 2024 1:57pm Mixed hyperlipidemia September 21, 2024 1:57 pm PAF (paroxysmal atrial fibrillation) September 21, 2024 1:57pm Chief Complaint Admit Date sleep apnea with respiratory failure Jun 8:15pm COLORECTAL July 03, 2024 8:4 0am COPD July 06, 2024 10: 44am COPD July 06, 2024 10: 51am MED FU July 18, 2024 10: 27am CHF EXACERBATION August 01, 2024 2:07 pm CHF EXACERBATION August 01, 2024 2:24 pm CHF EXACERBATION August 02, 2024 7:1 4am CHF EXACERBATION August 03, 2024 12: 11pm [facility] FU August 14, 2024 1:2 8pm 3 M F/U September 04, 2024 12:32 pm INT LAB AND XRAY ORDERS September 04, 2024 1 :33pm SOB/Edema (Trinh) September 21, 2024 1:57p m AFIB AND CHF October 01, 2024 6:37a m 1 M FU October 22, 2024 1:27 pm Reason for Visit Admit Date Spondylolisthesis, lumbar region June 242024 10:27am COPD (chronic obstructive pulmonary dise ase) July 18, 2024 10:27am Hypoxia July 18, 2024 10: 27am Mixed hyperlipidemia July 18, 2024 10 :27am Obesity July 18, 2024 10: 27am PAF (paroxysmal atrial fibrillation) [facility] 2024 10:27am Diabetes mellitus July 18, 2024 10: 27am Multiple myeloma July 18, 2024 10: 27am Leukocytosis August 01, 2024 2:07 pm Acute dyspnea August 01, 2024 2:07 pm Acute on chronic heart failu re with preserved ejection fraction August 01, 2024 2:07pm CHF (congestive heart failure) July 2:07pm Elevated troponin August 01, 2024 2:07 pm Hypoxia August 01, 2024 2:07 pm Chronic a-fib August 01, 2024 2:07 pm Chronic anticoagulation August 01, 2024 2:07pm History of COPD August 01, 2024 2:07 pm History of multiple myeloma August 01, 2 025 2:07pm Microcytic anemia August 01, 2024 2:07 pm Dyspnea on exertion August 14, 2024 1:2 8pm Essential hypertension August 14, 2024 1:28pm Heart failure with preserved ejection fraction, NYHA class II August 14, 2024 1:28pm Multiple myeloma August 14, 2024 1:2 8pm COPD (chronic obstructive pulmonary dise ase) September 04, 2024 12:32pm Heart failure with preserved ejection fraction, NYHA class II September 04, 2024 12:32pm On home oxygen therapy September 04, 2024 12 :32pm CONCHA (obstructive sleep apnea) September 04, 2024 12:32pm Abnormal electrocardiogram September 21 1:57pm Dyspnea on exertion September 21, 2024 1:57p m Essential hypertension September 21, 2024 1: 57pm Heart failure with preserved ejection fraction, NYHA class II September 21, 2024 1:57pm History of left heart catheterization (L HC) September 21, 2024 1:57pm Mixed hyperlipidemia September 21, 2024 1:57 pm PAF (paroxysmal atrial fibrillation) September 21, 2024 1:57pm Abnormal electrocardiogram October 22 1:27pm Dyspnea on exertion October 22, 2024 1:27 pm Essential hypertension October 22, 2024 1 :27pm Heart failure with preserved ejection fraction, NYHA class II October 22, 2024 1:27pm History of left heart catheterization (L HC) October 22, 2024 1:27pm Mixed hyperlipidemia October 22, 2024 1:2 7pm PAF (paroxysmal atrial fibrillation) Sep 1:27pm Chief Complaint Admit Date COLORECTAL July 03, 2024 8:4 0am COPD July 06, 2024 10: 44am COPD July 06, 2024 10: 51am MED FU July 18, 2024 10: 27am CHF EXACERBATION August 01, 2024 2:07 pm CHF EXACERBATION August 01, 2024 2:24 pm CHF EXACERBATION August 02, 2024 7:1 4am CHF EXACERBATION August 03, 2024 12: 11pm WC FU August 14, 2024 1:2 8pm 3 M F/U September 04, 2024 12:32 pm INT LAB AND XRAY ORDERS September 04, 2024 1 :33pm SOB/Edema (Trinh) September 21, 2024 1:57p m AFIB AND CHF October 01, 2024 6:37a m 1 M FU October 22, 2024 1:27 pm INT LAB ORDERS October 22, 2024 2:29 pm Reason for Visit Admit Date Spondylolisthesis, lumbar region June 242024 10:27am COPD (chronic obstructive pulmonary dise ase) July 18, 2024 10:27am Hypoxia July 18, 2024 10: 27am Mixed hyperlipidemia July 18, 2024 10 :27am Obesity July 18, 2024 10: 27am PAF (paroxysmal atrial fibrillation) [facility] 2024 10:27am Diabetes mellitus July 18, 2024 10: 27am Multiple myeloma July 18, 2024 10: 27am Leukocytosis August 01, 2024 2:07 pm Acute dyspnea August 01, 2024 2:07 pm Acute on chronic heart failu re with preserved ejection fraction August 01, 2024 2:07pm CHF (congestive heart failure) July 2:07pm Elevated troponin August 01, 2024 2:07 pm Hypoxia August 01, 2024 2:07 pm Chronic a-fib August 01, 2024 2:07 pm Chronic anticoagulation August 01, 2024 2:07pm History of COPD August 01, 2024 2:07 pm History of multiple myeloma August 01, 2 025 2:07pm Microcytic anemia August 01, 2024 2:07 pm Dyspnea on exertion August 14, 2024 1:2 8pm Essential hypertension August 14, 2024 1:28pm Heart failure with preserved ejection fraction, NYHA class II August 14, 2024 1:28pm Multiple myeloma August 14, 2024 1:2 8pm COPD (chronic obstructive pulmonary dise ase) September 04, 2024 12:32pm Heart failure with preserved ejection fraction, NYHA class II September 04, 2024 12:32pm On home oxygen therapy September 04, 2024 12 :32pm CONCHA (obstructive sleep apnea) September 04, 2024 12:32pm Abnormal electrocardiogram September 21 1:57pm Dyspnea on exertion September 21, 2024 1:57p m Essential hypertension September 21, 2024 1: 57pm Heart failure with preserved ejection fraction, NYHA class II September 21, 2024 1:57pm History of left heart catheterization (L HC) September 21, 2024 1:57pm Mixed hyperlipidemia September 21, 2024 1:57 pm PAF (paroxysmal atrial fibrillation) September 21, 2024 1:57pm Dyspnea on exertion October 22, 2024 1:27 pm Ventricular tachycardia October 22, 2024 1:27pm Essential hypertension October 22, 2024 1 :27pm Heart failure with preserved ejection fraction, NYHA class II October 22, 2024 1:27pm Mixed hyperlipidemia October 22, 2024 1:2 7pm PAF (paroxysmal atrial fibrillation) Sep 1:27pm Chief Complaint Admit Date MED FU July 18, 2024 10: 27am CHF EXACERBATION August 01, 2024 2:07 pm CHF EXACERBATION August 01, 2024 2:24 pm CHF EXACERBATION August 02, 2024 7:1 4am CHF EXACERBATION August 03, 2024 12: 11pm WC FU August 14, 2024 1:2 8pm 3 M F/U September 04, 2024 12:32 pm INT LAB AND XRAY ORDERS September 04, 2024 1 :33pm SOB/Edema (Trinh) September 21, 2024 1:57p m AFIB AND CHF October 01, 2024 6:37a m 1 M FU October 22, 2024 1:27 pm INT LAB ORDERS October 22, 2024 2:29 pm Chief Complaint Admit Date MED FU July 18, 2024 10: 27am CHF EXACERBATION August 01, 2024 2:07 pm CHF EXACERBATION August 01, 2024 2:24 pm CHF EXACERBATION August 02, 2024 7:1 4am CHF EXACERBATION August 03, 2024 12: 11pm WC FU August 14, 2024 1:2 8pm 3 M F/U September 04, 2024 12:32 pm INT LAB AND XRAY ORDERS September 04, 2024 1 :33pm SOB/Edema (Trinh) September 21, 2024 1:57p m AFIB AND CHF October 01, 2024 6:37a m 1 M FU October 22, 2024 1:27 pm INT LAB ORDERS October 22, 2024 2:29 pm 2 M FU November 07, 2024 3:24 pm Reason for Visit Admit Date Spondylolisthesis, lumbar region June 242024 10:27am COPD (chronic obstructive pulmonary dise ase) July 18, 2024 10:27am Hypoxia July 18, 2024 10: 27am Mixed hyperlipidemia July 18, 2024 10 :27am Obesity July 18, 2024 10: 27am PAF (paroxysmal atrial fibrillation) [facility] 2024 10:27am Diabetes mellitus July 18, 2024 10: 27am Multiple myeloma July 18, 2024 10: 27am Leukocytosis August 01, 2024 2:07 pm Acute dyspnea August 01, 2024 2:07 pm Acute on chronic heart failu re with preserved ejection fraction August 01, 2024 2:07pm CHF (congestive heart failure) July 2:07pm Elevated troponin August 01, 2024 2:07 pm Hypoxia August 01, 2024 2:07 pm Chronic a-fib August 01, 2024 2:07 pm Chronic anticoagulation August 01, 2024 2:07pm History of COPD August 01, 2024 2:07 pm History of multiple myeloma August 01, 025 2:07pm Microcytic anemia August 01, 2024 2:07 pm Dyspnea on exertion August 14, 2024 1:2 8pm Essential hypertension August 14, 2024 1:28pm Heart failure with preserved ejection fraction, NYHA class II August 14, 2024 1:28pm Multiple myeloma August 14, 2024 1:2 8pm COPD (chronic obstructive pulmonary dise ase) September 04, 2024 12:32pm Heart failure with preserved ejection fraction, NYHA class II September 04, 2024 12:32pm On home oxygen therapy September 04, 2024 12 :32pm CONCHA (obstructive sleep apnea) September 04, 2024 12:32pm Abnormal electrocardiogram September 21 1:57pm Dyspnea on exertion September 21, 2024 1:57p m Essential hypertension September 21, 2024 1: 57pm Heart failure with preserved ejection fraction, NYHA class II September 21, 2024 1:57pm History of left heart catheterization (L HC) September 21, 2024 1:57pm Mixed hyperlipidemia September 21, 2024 1:57 pm PAF (paroxysmal atrial fibrillation) September 21, 2024 1:57pm Dyspnea on exertion October 22, 2024 1:27 pm Ventricular tachycardia October 22, 2024 1:27pm Essential hypertension October 22, 2024 1 :27pm Heart failure with preserved ejection fraction, NYHA class II October 22, 2024 1:27pm Mixed hyperlipidemia October 22, 2024 1:2 7pm PAF (paroxysmal atrial fibrillation) [facility] 2024 1:27pm COPD (chronic obstructive pulmonary dise ase) November 07, 2024 3:24pm Heart failure with preserved ejection fraction, NYHA class II November 07, 2024 3:24pm Hypoxia November 07, 2024 3:24 pm Obesity November 07, 2024 3:24 pm CONCHA (obstructive sleep apnea) November 07, 2024 3:24pm PAF (paroxysmal atrial fibrillation) [facility] 20[facility] 3:24pm Family History No Family History Records Found Relationship Condition Age at Onset Recorded Date/[place] father Myocardial infarction Unknown mother Malignant neoplasm of breast Unknown Summary Purpose Medications Administered Section Inactive Administered Medications - up to 3 most recent administrations Medication Order MAR Action Action Date Dose Rate Site bortezomib 3.5 mg in NaCl 0.9% (VELCADE) 3.5 mg (rounded from 3.497 mg = 1.3 mg/m2 2.69 m2 Treatment Plan BSA from Recorded weight), SUBCUTANEOUS, ONCE, 1 dose, On Tue10/28/22 at 1500, Expires: 10/28/22 @ 2245 - DO NOT SHAKE - Hazardous Chemotherapy Drug: Use appropriate PPE. FATAL IF GIVEN INTRATHECALLY. Given 10/28/2022 3:31 PM EDT 3.5 mg Abdominal Tissue dexAMETHasone 40 mg tab(s) (DECADRON) 40 mg, ORAL, ONCE, 1 dose, On Tue10/28/22 at 1500 Given 10/28/2022 2:58 PM EDT 40 mg zoledronic tp-[id number]-1.9NaCl 4 mg iv piggyback 100 mL (ZOMETA) 4 mg, INTRAVENOUS, Administer over 15 Minutes, ONCE, 1 dose, On Tue10/28/22 at 1530, Hazardous Potential Reproductive Risk Drug: Use appropriate PPE. New Bag/Syringe/Bottl e 10/28/2022 3:28 PM EDT 4 mg Inactive Administered Medications - up to 3 most recent administrations Medication Order MAR Action Action Date Dose Rate Site bortezomib 3.5 mg in NaCl 0.9% (VELCADE) 3.5 mg (rounded from 3.497 mg = 1.3 mg/m2 2.69 m2 Treatment Plan BSA from Recorded weight), SUBCUTANEOUS, ONCE, 1 dose, On Tue11/04/22 at 1300, exp 1700 11/04/22 (room temp) - DO NOT SHAKE - Hazardous Chemotherapy Drug: Use appropriate PPE. FATAL IF GIVEN INTRATHECALLY. Given 11/04/2022 1:20 PM EDT 3.5 mg Abdominal Tissue dexAMETHasone 40 mg tab(s) (DECADRON) 40 mg, ORAL, ONCE, 1 dose, On Tue11/04/22 at 1400 Given 11/04/2022 1:51 PM EDT 40 mg Inactive Administered Medications - up to 3 most recent administrations Medication Order MAR Action Action Date Dose Rate Site bortezomib 3.5 mg in NaCl 0.9% (VELCADE) 3.5 mg (rounded from 3.497 mg = 1.3 mg/m2 2.69 m2 Treatment Plan BSA from Recorded weight), SUBCUTANEOUS, ONCE, 1 dose, On Tue11/25/22 at 1330, exp 1700 11/25/22 (room temp) - DO NOT SHAKE - Hazardous Chemotherapy Drug: Use appropriate PPE. FATAL IF GIVEN INTRATHECALLY. Given 11/25/2022 1:37 PM EDT 3.5 mg Abdominal Tissue dexAMETHasone 40 mg tab(s) (DECADRON) 40 mg, ORAL, ONCE, 1 dose, On Tue11/25/22 at 1330 Given 11/25/2022 1:38 PM EDT 40 mg zoledronic kl-gdgnwsds-1.9NaCl 4 mg iv piggyback 100 mL (ZOMETA) 4 mg, INTRAVENOUS, Administer over 15 Minutes, ONCE, 1 dose, On Tue11/25/22 at 1330, Hazardous Potential Reproductive Risk Drug: Use appropriate PPE. New Bag/Syringe/Bottl e 11/25/2022 1:40 PM EDT 4 mg Inactive Administered Medications - up to 3 most recent administrations Medication Order MAR Action Action Date Dose Rate Site bortezomib 3.5 mg in NaCl 0.9% (VELCADE) 3.5 mg (rounded from 3.497 mg = 1.3 mg/m2 2.69 m2 Treatment Plan BSA from Recorded weight), SUBCUTANEOUS, ONCE, 1 dose, On Tue12/02/22 at 1300, exp 2130 12/02/22 (room temp) - DO NOT SHAKE - Hazardous Chemotherapy Drug: Use appropriate PPE. FATAL IF GIVEN INTRATHECALLY. Given 12/02/2022 1:38 PM EDT 3.5 mg Abdominal Tissue dexAMETHasone 40 mg tab(s) (DECADRON) 40 mg, ORAL, ONCE, 1 dose, On Tue12/02/22 at 1300 Given 12/02/2022 1:26 PM EDT 40 mg Inactive Administered Medications - up to 3 most recent administrations Medication Order MAR Action Action Date Dose Rate Site bortezomib 3.5 mg in NaCl 0.9% (VELCADE) 3.5 mg (rounded from 3.497 mg = 1.3 mg/m2 2.69 m2 Treatment Plan BSA from Recorded weight), SUBCUTANEOUS, ONCE, 1 dose, On Tue12/09/22 at 1330, exp 2100 12/09/23 (room temp) - DO NOT SHAKE - Hazardous Chemotherapy Drug: Use appropriate PPE. FATAL IF GIVEN INTRATHECALLY. Given 12/09/2022 1:39 PM EDT 3.5 mg Abdominal Tissue dexAMETHasone 40 mg tab(s) (DECADRON) 40 mg, ORAL, ONCE, 1 dose, On Tue12/09/22 at 1330 Given 12/09/2022 1:15 PM EDT 40 mg Inactive Administered Medications - up to 3 most recent administrations Medication Order MAR Action Action Date Dose Rate Site iron sucrose 200 mg in NaCl 0.9% 100ml (VENOFER) 200 mg, INTRAVENOUS, at 400 mL/hr, Administer over 15 Minutes, ONCE, 1 dose, On Tue01/04/23 at 1330, Please conduct a 30 minute post dose observation. New Bag/Syringe/Bottle 01/04/2023 1:13 PM EDT 200 mg 400 mL/hr Active Administered Medications - up to 3 most recent administrations Medication Order MAR Action Action Date Dose Rate Site diphenhydrAMINE 50 mg injection (BENADRYL) 50 mg, INTRAVENOUS, NEEDED, 1 dose, Starting on Tue01/06/23 at 1452, Until Discontinued, Administer per hypersensitivity/anaphylaxis grading in nursing communication diphenhydrAMINE 50 mg injection (BENADRYL) 50 mg, INTRAVENOUS, NEEDED, 1 dose, Starting on Tue01/06/23 at 1508, Until Discontinued, Administer per hypersensitivity/anaphylaxis grading in nursing communication EPINEPHrine HCl (PF) 1 mg/mL (1 mL) 0.3 mg injection 0.3 mg, INTRAMUSCULAR, NEEDED, 1 dose, Starting on Tue01/06/23 at 1452, Until Discontinued, Administer per hypersensitivity/anaphylaxis grading in nursing communication, - NONCYTOTOXIC VESICANT - EPINEPHrine HCl (PF) 1 mg/mL (1 mL) 0.3 mg injection 0.3 mg, INTRAMUSCULAR, NEEDED, 1 dose, Starting on Tue01/06/23 at 1508, Until Discontinued, Administer per hypersensitivity/anaphylaxis grading in nursing communication, - NONCYTOTOXIC VESICANT - heparin 100 unit/mL 500 Units injection 500 Units (5 mL), INTRAVENOUS, DIRECTED NEEDED, Starting on Tue01/06/23 at 1452, Until Discontinued, See Administration Instructions, If no allergy to Heparin: IVADS not in use should be accessed and flushed once every 4 to 6 weeks with 5 mL of Heparin (100units/mL). Upon de-access of Gill needle, when re-access is not indicated, ports will be flushed with 5 mL of Heparin (100 units/mL). Do not remove or delete this order unless patient has an allergy/contraindication to Heparin, or has a saline only IVAD. heparin 100 unit/mL 500 Units injection 500 Units (5 mL), INTRAVENOUS, DIRECTED NEEDED, Starting on Bhavana 01/06/23 at 1508, Until Discontinued, See Administration Instructions, If no allergy to Heparin: IVADS not in use should be accessed and flushed once every 4 to 6 weeks with 5 mL of Heparin (100units/mL). Upon de-access of Gill needle, when re-access is not indicated, ports will be flushed with 5 mL of Heparin (100 units/mL). Do not remove or delete this order unless patient has an allergy/contraindication to Heparin, or has a saline only IVAD. hydrocortisone sodium succinate (PF) 100 mg injection (Solu-CORTEF) 100 mg, INTRAVENOUS, NEEDED, 1 dose, Starting on Bhavana 01/06/23 at 1452, Until Discontinued, Administer per hypersensitivity/anaphylaxis grading in nursing communication hydrocortisone sodium succinate (PF) 100 mg injection (Solu-CORTEF) 100 mg, INTRAVENOUS, NEEDED, 1 dose, Starting on Bhavana 01/06/23 at 1508, Until Discontinued, Administer per hypersensitivity/anaphylaxis grading in nursing communication NaCl 0.9% iv infusion 500-999 mL/hr, INTRAVENOUS, NEEDED, 1 dose, Starting on Bhavana 01/06/23 at 1452, Until Discontinued, Hypotension (titrate to maintain SBP greater than 100), Administer per hypersensitivity/anaphylaxis grading in nursing communication NaCl 0.9% iv infusion 500-999 mL/hr, INTRAVENOUS, NEEDED, 1 dose, Starting on Bhavana 01/06/23 at 1508, Until Discontinued, Hypotension (titrate to maintain SBP greater than 100), Administer per hypersensitivity/anaphylaxis grading in nursing communication sodium chloride 0.9 % (flush) 10-20 mL (BD POSIFLUSH) 10-20 mL, INTRAVENOUS, NEEDED, Starting on Bhavana 9/14/23 at 1452, Until Discontinued, See Administration Instructions, If no IVAD access, may place IV if needed for labs or possible treatment. Flush 10-20ml on IV start and as needed. D5W or LR may be used in place of NS for medication that are incompatible (i.e. with oxaliplatin). sodium chloride 0.9 % (flush) 10-20 mL (BD POSIFLUSH) 10-20 mL, INTRAVENOUS, DIRECTED NEEDED, Starting on Bhavana 01/06/23 at 1452, Until Discontinued, See Administration Instructions, If patient has a heparin allergy: IVADS not in use should be accessed and flushed once every 4 to 6 weeks with 10 mL of 0.9% NaCl. Upon de-access of Gill needle, when re-access is not indicated, ports will be flushed with 10 mL of 0.9% NaCl. Ports should be flushed with 20 mL of 0.9% NaCl after blood draws. sodium chloride 0.9 % (flush) 10-20 mL (BD POSIFLUSH) 10-20 mL, INTRAVENOUS, NEEDED, Starting on [facility] 01/06/23 at 1508, Until Discontinued, See Administration Instructions, If no IVAD access, may place IV if needed for labs or possible treatment. Flush 10-20ml on IV start and as needed. D5W or LR may be used in place of NS for medication that are incompatible (i.e. with oxaliplatin). sodium chloride 0.9 % (flush) 10-20 mL (BD POSIFLUSH) 10-20 mL, INTRAVENOUS, DIRECTED NEEDED, Starting on Bhavana 01/06/23 at 1508, Until Discontinued, See Administration Instructions, If patient has a heparin allergy: IVADS not in use should be accessed and flushed once every 4 to 6 weeks with 10 mL of 0.9% NaCl. Upon de-access of Gill needle, when re-access is not indicated, ports will be flushed with 10 mL of 0.9% NaCl. Ports should be flushed with 20 mL of 0.9% NaCl after blood draws. Inactive Administered Medications - up to 3 most recent administrations Medication Order MAR Action Action Date Dose Rate Site bortezomib 3.5 mg in NaCl 0.9% (VELCADE) 3.5 mg (rounded from 3.497 mg = 1.3 mg/m2 2.69 m2 Treatment Plan BSA from Recorded weight), SUBCUTANEOUS, ONCE, 1 dose, On Tue01/06/23 at 1530, exp 1600 01/06/23 (room temp) - DO NOT SHAKE - Hazardous Chemotherapy Drug: Use appropriate PPE. FATAL IF GIVEN INTRATHECALLY. Given 01/06/2023 3:22 PM EDT 3.5 mg Abdominal Tissue iron sucrose 200 mg in NaCl 0.9% 100ml (VENOFER) 200 mg, INTRAVENOUS, at 400 mL/hr, Administer over 15 Minutes, ONCE, 1 dose, On Tue01/06/23 at 1500, Please conduct a 30 minute post dose observation. New Bag/Syringe/Bot tle 01/06/2023 3:06 PM EDT 200 mg 400 mL/hr Inactive Administered Medications - up to 3 most recent administrations Medication Order MAR Action Action Date Dose Rate Site iron sucrose 200 mg in NaCl 0.9% 100ml (VENOFER) 200 mg, INTRAVENOUS, at 400 mL/hr, Administer over 15 Minutes, ONCE, 1 dose, On Tue01/11/23 at 1400, Please conduct a 30 minute post dose observation. New Bag/Syringe/Bottle 01/11/2023 1:59 PM EDT 200 mg 400 mL/hr Inactive Administered Medications - up to 3 most recent administrations Medication Order MAR Action Action Date Dose Rate Site bortezomib 3.5 mg in NaCl 0.9% (VELCADE) 3.5 mg (rounded from 3.497 mg = 1.3 mg/m2 2.69 m2 Treatment Plan BSA from Recorded weight), SUBCUTANEOUS, ONCE, 1 dose, On Tue01/13/23 at 1130, exp 2000 01/13/23 (room temp) .- DO NOT SHAKE - Hazardous Chemotherapy Drug: Use appropriate PPE. FATAL IF GIVEN INTRATHECALLY. Given 01/13/2023 12:06 PM EDT 3.5 mg Abdominal Tissue iron sucrose 200 mg in NaCl 0.9% 100ml (VENOFER) 200 mg, INTRAVENOUS, at 400 mL/hr, Administer over 15 Minutes, ONCE, 1 dose, On Tue01/13/23 at 1130, Please conduct a 30 minute post dose observation. New Bag/Syringe/Bot tle 01/13/2023 11:42 AM EDT 200 mg 400 mL/hr Inactive Administered Medications - up to 3 most recent administrations Medication Order MAR Action Action Date Dose Rate Site bortezomib 3.45 mg in NaCl 0.9% (VELCADE) 3.45 mg (rounded from 3.445 mg = 1.3 mg/m2 2.65 m2 Treatment Plan BSA from Recorded weight), SUBCUTANEOUS, ONCE, 1 dose, On Tue01/27/23 at 1330, exp 1600 01/27/23 (room temp) DO NOT SHAKE - Hazardous Chemotherapy Drug: Use appropriate PPE. FATAL IF GIVEN INTRATHECALLY. Given 01/27/2023 1:53 PM EDT 3.45 mg Abdominal Tissue dexAMETHasone 10 mg in NaCl 0.9% 50 mL (DECADRON) 10 mg, INTRAVENOUS, ONCE, 1 dose, On Bhavana 01/27/23 at 1330, Refrigerate. New Bag/Syringe/Rosy le 01/27/2023 1:35 PM EDT 10 mg zoledronic [id number]-7.9NaCl 4 mg iv piggyback 100 mL (ZOMETA) 4 mg, INTRAVENOUS, Administer over 15 Minutes, ONCE, 1 dose, On Tue01/27/23 at 1330, Hazardous Potential Reproductive Risk Drug: Use appropriate PPE. New Bag/Syringe/Rosy le 01/27/2023 1:57 PM EDT 4 mg Inactive Administered Medications - up to 3 most recent administrations Medication Order MAR Action Action Date Dose Rate Site bortezomib 3.45 mg in NaCl 0.9% (VELCADE) 3.45 mg (rounded from 3.445 mg = 1.3 mg/m2 2.65 m2 Treatment Plan BSA from Recorded weight), SUBCUTANEOUS, ONCE, 1 dose, On Tue02/04/23 at 1530, exp 2100 02/04/23 (room temp) - DO NOT SHAKE - Hazardous Chemotherapy Drug: Use appropriate PPE. FATAL IF GIVEN INTRATHECALLY. Given 02/04/2023 3:19 PM EDT 3.45 mg Abdominal Tissue Inactive Administered Medications - up to 3 most recent administrations Medication Order MAR Action Action Date Dose Rate Site bortezomib 3.45 mg in NaCl 0.9% (VELCADE) 3.45 mg (rounded from 3.445 mg = 1.3 mg/m2 2.65 m2 Treatment Plan BSA from Recorded weight), SUBCUTANEOUS, ONCE, 1 dose, On Tue02/10/23 at 1330, exp 2100 02/10/23 (room temp) - DO NOT SHAKE - Hazardous Chemotherapy Drug: Use appropriate PPE. FATAL IF GIVEN INTRATHECALLY. Given 02/10/2023 1:59 PM EDT 3.45 mg Abdominal Tissue Inactive Administered Medications - up to 3 most recent administrations Medication Order MAR Action Action Date Dose Rate Site acetaminophen 1,000 mg tab(s) (TYLENOL) 1,000 mg, ORAL, ONCE, 1 dose, On Tue03/08/23 at 0930, No more than 4000 mg of acetaminophen should be given per day (FROM ALL SOURCES), If ordered PRN for pain, patient/guardian may elect to receive this medication for higher pain levels INSTEAD of the opioid, if preferred: N/A Given 03/08/2023 9:52 AM EST 1,000 mg daratumumab 1,800 mg - hyaluronidase-fihj 30,000 units 1,800 mg injection (DARZALEX FASPRO) 1,800 mg, SUBCUTANEOUS, ONCE, 1 dose, On Tue03/08/23 at 0930, ++FOR SUBCUTANEOUS ADMINISTRATION ONLY++ EXP: (12 HR) Inject subcutaneously into subcutaneous tissue on the abdomen approximately 3 inches to the right or left of the navel over 3 to 5 minutes. Given 03/08/2023 10:17 AM EST 1,800 mg Abdominal Tissue dexAMETHasone 20 mg in NaCl 0.9% 50 mL (DECADRON) 20 mg, INTRAVENOUS, Administer over 15 Minutes, ONCE, 1 dose, On Tue03/08/23 at 0930, Give prior to chemotherapy. Refrigerate. New Bag/Syringe/Bot tle 03/08/2023 9:52 AM EST 20 mg diphenhydrAMINE 50 mg injection (BENADRYL) 50 mg, INTRAVENOUS, ONCE, 1 dose, On Tue03/08/23 at 0930, Give prior to chemotherapy. Given 03/08/2023 9:52 AM EST 50 mg famotidine 20 mg injection (PEPCID) 20 mg, INTRAVENOUS, ONCE, 1 dose, On Tue03/08/23 at 0930, Give prior to chemotherapy. REFRIGERATE Given 03/08/2023 9:52 AM EST 20 mg zoledronic yq-gfgbgniq-7.9NaCl 4 mg iv piggyback 100 mL (ZOMETA) 4 mg, INTRAVENOUS, Administer over 15 Minutes, ONCE, 1 dose, On Tue03/08/23 at 1230, Hazardous Potential Reproductive Risk Drug: Use appropriate PPE. New Bag/Syringe/Bot [facility] 03/08/2023 12:22 PM EST 4 mg Inactive Administered Medications - up to 3 most recent administrations Medication Order MAR Action Action Date Dose Rate Site acetaminophen 1,000 mg tab(s) (TYLENOL) 1,000 mg, ORAL, ONCE, 1 dose, On Tue03/15/23 at 1430, No more than 4000 mg of acetaminophen should be given per day (FROM ALL SOURCES), If ordered PRN for pain, patient/guardian may elect to receive this medication for higher pain levels INSTEAD of the opioid, if preferred: N/A Given 03/15/2023 2:29 PM EST 1,000 mg daratumumab 1,800 mg - hyaluronidase-fihj 30,000 units 1,800 mg injection (DARZALEX FASPRO) 1,800 mg, SUBCUTANEOUS, ONCE, 1 dose, On Tue03/15/23 at 1430, ++FOR SUBCUTANEOUS ADMINISTRATION ONLY++ EXP: 03/16/23 @ 02:30 (room temperature) EXP: (12 HR) Inject subcutaneously into subcutaneous tissue on the abdomen approximately 3 inches to the right or left of the navel over 3 to 5 minutes. Given 03/15/2023 2:59 PM EST 1,800 mg Abdominal Tissue dexAMETHasone 20 mg in NaCl 0.9% 50 mL (DECADRON) 20 mg, INTRAVENOUS, Administer over 15 Minutes, ONCE, 1 dose, On Tue03/15/23 at 1430, Give prior to chemotherapy. Refrigerate. New Bag/Syringe/Bot [facility] 03/15/2023 2:29 PM EST 20 mg diphenhydrAMINE 50 mg injection (BENADRYL) 50 mg, INTRAVENOUS, ONCE, 1 dose, On Tue03/15/23 at 1430, Give prior to chemotherapy. Given 03/15/2023 2:29 PM EST 50 mg famotidine 20 mg injection (PEPCID) 20 mg, INTRAVENOUS, ONCE, 1 dose, On Tue03/15/23 at 1430, Give prior to chemotherapy. REFRIGERATE Given 03/15/2023 2:29 PM EST 20 mg Additional Source Comments Source Comments (unrecognize d section and content) In the event this informatio n is protected by the Federal Confidentiality of Alcohol and Drug Abuse Patient Records regulations: The Federal rules restrict any use of the information to criminally investigate or prosecute any alcohol or drug abuse patient.[facility] the event this information is protected by the Federal Confidentiality of Alcohol and Drug Abuse Patient Records regulations: The Federal rules restrict any use of the information to criminally investigate or prosecute any alcohol or drug abuse patient.[facility]In the event this information is protected by the Federal Confidentiality of Alcohol and Drug Abuse Patient Records regulations: The Federal rules restrict any use of the information to criminally investigate or prosecute any alcohol or drug abuse patient.[facility]In the event this information is protected by the Federal Confidentiality of Alcohol and Drug Abuse Patient Records regulations: The Federal rules restrict any use of the information to criminally investigate or prosecute any alcohol or drug abuse patient.[facility]In the event this information is protected by the Federal Confidentiality of Alcohol and Drug Abuse Patient Records regulations: The Federal rules restrict any use of the information to criminally investigate or prosecute any alcohol or drug abuse patient.[facility]In the event this information is protected by the Federal Confidentiality of Alcohol and Drug Abuse Patient Records regulations: The Federal rules restrict any use of the information to criminally investigate or prosecute any alcohol or drug abuse patient.[facility]In the event this information is protected by the Federal Confidentiality of Alcohol and Drug Abuse Patient Records regulations: The Federal rules restrict any use of the information to criminally investigate or prosecute any alcohol or drug abuse patient.[facility] HospitalIn the event this information is protected by the Federal Confidentiality of Alcohol and Drug Abuse Patient Records regulations: The Federal rules restrict any use of the information to criminally investigate or prosecute any alcohol or drug abuse patient.[facility] HospitalIn the event this information is protected by the Federal Confidentiality of Alcohol and Drug Abuse Patient Records regulations: The Federal rules restrict any use of the information to criminally investigate or prosecute any alcohol or drug abuse patient.[facility] HospitalIn the event this information is protected by the Federal Confidentiality of Alcohol and Drug Abuse Patient Records regulations: The Federal rules restrict any use of the information to criminally investigate or prosecute any alcohol or drug abuse patient.[facility] HospitalIn the event this information is protected by the Federal Confidentiality of Alcohol and Drug Abuse Patient Records regulations: The Federal rules restrict any use of the information to criminally investigate or prosecute any alcohol or drug abuse patient.[facility] HospitalIn the event this information is protected by the Federal Confidentiality of Alcohol and Drug Abuse Patient Records regulations: The Federal rules restrict any use of the information to criminally investigate or prosecute any alcohol or drug abuse patient.[facility] HospitalIn the event this information is protected by the Federal Confidentiality of Alcohol and Drug Abuse Patient Records regulations: The Federal rules restrict any use of the information to criminally investigate or prosecute any alcohol or drug abuse patient.[facility] HospitalIn the event this information is protected by the Federal Confidentiality of Alcohol and Drug Abuse Patient Records regulations: The Federal rules restrict any use of the information to criminally investigate or prosecute any alcohol or drug abuse patient.[facility] HospitalIn the event this information is protected by the Federal Confidentiality of Alcohol and Drug Abuse Patient Records regulations: The Federal rules restrict any use of the information to criminally investigate or prosecute any alcohol or drug abuse patient.[facility] HospitalIn the event this information is protected by the Federal Confidentiality of Alcohol and Drug Abuse Patient Records regulations: The Federal rules restrict any use of the information to criminally investigate or prosecute any alcohol or drug abuse patient.[facility] HospitalIn the event this information is protected by the Federal Confidentiality of Alcohol and Drug Abuse Patient Records regulations: The Federal rules restrict any use of the information to criminally investigate or prosecute any alcohol or drug abuse patient.[facility] HospitalIn the event this information is protected by the Federal Confidentiality of Alcohol and Drug Abuse Patient Records regulations: The Federal rules restrict any use of the information to criminally investigate or prosecute any alcohol or drug abuse patient.[facility] HospitalIn the event this information is protected by the Federal Confidentiality of Alcohol and Drug Abuse Patient Records regulations: The Federal rules restrict any use of the information to criminally investigate or prosecute any alcohol or drug abuse patient.[facility] HospitalIn the event this information is protected by the Federal Confidentiality of Alcohol and Drug Abuse Patient Records regulations: The Federal rules restrict any use of the information to criminally investigate or prosecute any alcohol or drug abuse patient.[facility] HospitalIn the event this information is protected by the Federal Confidentiality of Alcohol and Drug Abuse Patient Records regulations: The Federal rules restrict any use of the information to criminally investigate or prosecute any alcohol or drug abuse patient.[facility] HospitalIn the event this information is protected by the Federal Confidentiality of Alcohol and Drug Abuse Patient Records regulations: The Federal rules restrict any use of the information to criminally investigate or prosecute any alcohol or drug abuse patient.[facility] HospitalIn the event this information is protected by the Federal Confidentiality of Alcohol and Drug Abuse Patient Records regulations: The Federal rules restrict any use of the information to criminally investigate or prosecute any alcohol or drug abuse patient.[facility] HospitalIn the event this information is protected by the Federal Confidentiality of Alcohol and Drug Abuse Patient Records regulations: The Federal rules restrict any use of the information to criminally investigate or prosecute any alcohol or drug abuse patient.[facility] HospitalIn the event this information is protected by the Federal Confidentiality of Alcohol and Drug Abuse Patient Records regulations: The Federal rules restrict any use of the information to criminally investigate or prosecute any alcohol or drug abuse patient.[facility] HospitalIn the event this information is protected by the Federal Confidentiality of Alcohol and Drug Abuse Patient Records regulations: The Federal rules restrict any use of the information to criminally investigate or prosecute any alcohol or drug abuse patient.[facility] HospitalIn the event this information is protected by the Federal Confidentiality of Alcohol and Drug Abuse Patient Records regulations: The Federal rules restrict any use of the information to criminally investigate or prosecute any alcohol or drug abuse patient.[facility] HospitalIn the event this information is protected by the Federal Confidentiality of Alcohol and Drug Abuse Patient Records regulations: The Federal rules restrict any use of the information to criminally investigate or prosecute any alcohol or drug abuse patient.[facility] HospitalIn the event this information is protected by the Federal Confidentiality of Alcohol and Drug Abuse Patient Records regulations: The Federal rules restrict any use of the information to criminally investigate or prosecute any alcohol or drug abuse patient.[facility] HospitalIn the event this information is protected by the Federal Confidentiality of Alcohol and Drug Abuse Patient Records regulations: The Federal rules restrict any use of the information to criminally investigate or prosecute any alcohol or drug abuse patient.[facility] HospitalIn the event this information is protected by the Federal Confidentiality of Alcohol and Drug Abuse Patient Records regulations: The Federal rules restrict any use of the information to criminally investigate or prosecute any alcohol or drug abuse patient.[facility] HospitalIn the event this information is protected by the Federal Confidentiality of Alcohol and Drug Abuse Patient Records regulations: The Federal rules restrict any use of the information to criminally investigate or prosecute any alcohol or drug abuse patient.[facility] HospitalIn the event this information is protected by the Federal Confidentiality of Alcohol and Drug Abuse Patient Records regulations: The Federal rules restrict any use of the information to criminally investigate or prosecute any alcohol or drug abuse patient.[facility] HospitalIn the event this information is protected by the Federal Confidentiality of Alcohol and Drug Abuse Patient Records regulations: The Federal rules restrict any use of the information to criminally investigate or prosecute any alcohol or drug abuse patient.[facility] HospitalIn the event this information is protected by the Federal Confidentiality of Alcohol and Drug Abuse Patient Records regulations: The Federal rules restrict any use of the information to criminally investigate or prosecute any alcohol or drug abuse patient.[facility] HospitalIn the event this information is protected by the Federal Confidentiality of Alcohol and Drug Abuse Patient Records regulations: The Federal rules restrict any use of the information to criminally investigate or prosecute any alcohol or drug abuse patient.[facility] HospitalIn the event this information is protected by the Federal Confidentiality of Alcohol and Drug Abuse Patient Records regulations: The Federal rules restrict any use of the information to criminally investigate or prosecute any alcohol or drug abuse patient.[facility]In the event this information is protected by the Federal Confidentiality of Alcohol and Drug Abuse Patient Records regulations: The Federal rules restrict any use of the information to criminally investigate or prosecute any alcohol or drug abuse patient.[facility]In the event this information is protected by the Federal Confidentiality of Alcohol and Drug Abuse Patient Records regulations: The Federal rules restrict any use of the information to criminally investigate or prosecute any alcohol or drug abuse patient.[facility]In the event this information is protected by the Federal Confidentiality of Alcohol and Drug Abuse Patient Records regulations: The Federal rules restrict any use of the information to criminally investigate or prosecute any alcohol or drug abuse patient.[facility]In the event this information is protected by the Federal Confidentiality of Alcohol and Drug Abuse Patient Records regulations: The Federal rules restrict any use of the information to criminally investigate or prosecute any alcohol or drug abuse patient.[facility]In the event this information is protected by the Federal Confidentiality of Alcohol and Drug Abuse Patient Records regulations: The Federal rules restrict any use of the information to criminally investigate or prosecute any alcohol or drug abuse patient.[facility]In the event this information is protected by the Federal Confidentiality of Alcohol and Drug Abuse Patient Records regulations: The Federal rules restrict any use of the information to criminally investigate or prosecute any alcohol or drug abuse patient.[facility]In the event this information is protected by the Federal Confidentiality of Alcohol and Drug Abuse Patient Records regulations: The Federal rules restrict any use of the information to criminally investigate or prosecute any alcohol or drug abuse patient.[facility]In the event this information is protected by the Federal Confidentiality of Alcohol and Drug Abuse Patient Records regulations: The Federal rules restrict any use of the information to criminally investigate or prosecute any alcohol or drug abuse patient.[facility]In the event this information is protected by the Federal Confidentiality of Alcohol and Drug Abuse Patient Records regulations: The Federal rules restrict any use of the information to criminally investigate or prosecute any alcohol or drug abuse patient.[facility]In the event this information is protected by the Federal Confidentiality of Alcohol and Drug Abuse Patient Records regulations: The Federal rules restrict any use of the information to criminally investigate or prosecute any alcohol or drug abuse patient.[facility]In the event this information is protected by the Federal Confidentiality of Alcohol and Drug Abuse Patient Records regulations: The Federal rules restrict any use of the information to criminally investigate or prosecute any alcohol or drug abuse patient.[facility]In the event this information is protected by the Federal Confidentiality of Alcohol and Drug Abuse Patient Records regulations: The Federal rules restrict any use of the information to criminally investigate or prosecute any alcohol or drug abuse patient.[facility]In the event this information is protected by the Federal Confidentiality of Alcohol and Drug Abuse Patient Records regulations: The Federal rules restrict any use of the information to criminally investigate or prosecute any alcohol or drug abuse patient.[facility]In the event this information is protected by the Federal Confidentiality of Alcohol and Drug Abuse Patient Records regulations: The Federal rules restrict any use of the information to criminally investigate or prosecute any alcohol or drug abuse patient.[facility]In the event this information is protected by the Federal Confidentiality of Alcohol and Drug Abuse Patient Records regulations: The Federal rules restrict any use of the information to criminally investigate or prosecute any alcohol or drug abuse patient.[facility]In the event this information is protected by the Federal Confidentiality of Alcohol and Drug Abuse Patient Records regulations: The Federal rules restrict any use of the information to criminally investigate or prosecute any alcohol or drug abuse patient.[facility]In the event this information is protected by the Federal Confidentiality of Alcohol and Drug Abuse Patient Records regulations: The Federal rules restrict any use of the information to criminally investigate or prosecute any alcohol or drug abuse patient.[facility]In the event this information is protected by the Federal Confidentiality of Alcohol and Drug Abuse Patient Records regulations: The Federal rules restrict any use of the information to criminally investigate or prosecute any alcohol or drug abuse patient.[facility]In the event this information is protected by the Federal Confidentiality of Alcohol and Drug Abuse Patient Records regulations: The Federal rules restrict any use of the information to criminally investigate or prosecute any alcohol or drug abuse patient.[facility]In the event this information is protected by the Federal Confidentiality of Alcohol and Drug Abuse Patient Records regulations: The Federal rules restrict any use of the information to criminally investigate or prosecute any alcohol or drug abuse patient.[facility]In the event this information is protected by the Federal Confidentiality of Alcohol and Drug Abuse Patient Records regulations: The Federal rules restrict any use of the information to criminally investigate or prosecute any alcohol or drug abuse patient.[facility]In the event this information is protected by the Federal Confidentiality of Alcohol and Drug Abuse Patient Records regulations: The Federal rules restrict any use of the information to criminally investigate or prosecute any alcohol or drug abuse patient.[facility]In the event this information is protected by the Federal Confidentiality of Alcohol and Drug Abuse Patient Records regulations: The Federal rules restrict any use of the information to criminally investigate or prosecute any alcohol or drug abuse patient.[facility]In the event this information is protected by the Federal Confidentiality of Alcohol and Drug Abuse Patient Records regulations: The Federal rules restrict any use of the information to criminally investigate or prosecute any alcohol or drug abuse patient.[facility] HospitalIn the event this information is protected by the Federal Confidentiality of Alcohol and Drug Abuse Patient Records regulations: The Federal rules restrict any use of the information to criminally investigate or prosecute any alcohol or drug abuse patient.[facility]In the event this information is protected by the Federal Confidentiality of Alcohol and Drug Abuse Patient Records regulations: The Federal rules restrict any use of the information to criminally investigate or prosecute any alcohol or drug abuse patient.[facility]In the event this information is protected by the Federal Confidentiality of Alcohol and Drug Abuse Patient Records regulations: The Federal rules restrict any use of the information to criminally investigate or prosecute any alcohol or drug abuse patient.[facility]In the event this information is protected by the Federal Confidentiality of Alcohol and Drug Abuse Patient Records regulations: The Federal rules restrict any use of the information to criminally investigate or prosecute any alcohol or drug abuse patient.[facility]In the event this information is protected by the Federal Confidentiality of Alcohol and Drug Abuse Patient Records regulations: The Federal rules restrict any use of the information to criminally investigate or prosecute any alcohol or drug abuse patient.[facility]In the event this information is protected by the Federal Confidentiality of Alcohol and Drug Abuse Patient Records regulations: The Federal rules restrict any use of the information to criminally investigate or prosecute any alcohol or drug abuse patient.[facility]In the event this information is protected by the Federal Confidentiality of Alcohol and Drug Abuse Patient Records regulations: The Federal rules restrict any use of the information to criminally investigate or prosecute any alcohol or drug abuse patient.[facility]In the event this information is protected by the Federal Confidentiality of Alcohol and Drug Abuse Patient Records regulations: The Federal rules restrict any use of the information to criminally investigate or prosecute any alcohol or drug abuse patient.[facility]In the event this information is protected by the Federal Confidentiality of Alcohol and Drug Abuse Patient Records regulations: The Federal rules restrict any use of the information to criminally investigate or prosecute any alcohol or drug abuse patient.[facility]In the event this information is protected by the Federal Confidentiality of Alcohol and Drug Abuse Patient Records regulations: The Federal rules restrict any use of the information to criminally investigate or prosecute any alcohol or drug abuse patient.[facility]In the event this information is protected by the Federal Confidentiality of Alcohol and Drug Abuse Patient Records regulations: The Federal rules restrict any use of the information to criminally investigate or prosecute any alcohol or drug abuse patient.[facility]In the event this information is protected by the Federal Confidentiality of Alcohol and Drug Abuse Patient Records regulations: The Federal rules restrict any use of the information to criminally investigate or prosecute any alcohol or drug abuse patient.[facility]In the event this information is protected by the Federal Confidentiality of Alcohol and Drug Abuse Patient Records regulations: The Federal rules restrict any use of the information to criminally investigate or prosecute any alcohol or drug abuse patient.[facility]In the event this information is protected by the Federal Confidentiality of Alcohol and Drug Abuse Patient Records regulations: The Federal rules restrict any use of the information to criminally investigate or prosecute any alcohol or drug abuse patient.[facility]In the event this information is protected by the Federal Confidentiality of Alcohol and Drug Abuse Patient Records regulations: The Federal rules restrict any use of the information to criminally investigate or prosecute any alcohol or drug abuse patient.[facility]In the event this information is protected by the Federal Confidentiality of Alcohol and Drug Abuse Patient Records regulations: The Federal rules restrict any use of the information to criminally investigate or prosecute any alcohol or drug abuse patient.[facility] HospitalIn the event this information is protected by the Federal Confidentiality of Alcohol and Drug Abuse Patient Records regulations: The Federal rules restrict any use of the information to criminally investigate or prosecute any alcohol or drug abuse patient.[facility] HospitalIn the event this information is protected by the Federal Confidentiality of Alcohol and Drug Abuse Patient Records regulations: The Federal rules restrict any use of the information to criminally investigate or prosecute any alcohol or drug abuse patient.[facility] HospitalIn the event this information is protected by the Federal Confidentiality of Alcohol and Drug Abuse Patient Records regulations: The Federal rules restrict any use of the information to criminally investigate or prosecute any alcohol or drug abuse patient.[facility] HospitalIn the event this information is protected by the Federal Confidentiality of Alcohol and Drug Abuse Patient Records regulations: The Federal rules restrict any use of the information to criminally investigate or prosecute any alcohol or drug abuse patient.[facility] HospitalIn the event this information is protected by the Federal Confidentiality of Alcohol and Drug Abuse Patient Records regulations: The Federal rules restrict any use of the information to criminally investigate or prosecute any alcohol or drug abuse patient.[facility]In the event this information is protected by the Federal Confidentiality of Alcohol and Drug Abuse Patient Records regulations: The Federal rules restrict any use of the information to criminally investigate or prosecute any alcohol or drug abuse patient.[facility] HospitalIn the event this information is protected by the Federal Confidentiality of Alcohol and Drug Abuse Patient Records regulations: The Federal rules restrict any use of the information to criminally investigate or prosecute any alcohol or drug abuse patient.[facility]In the event this information is protected by the Federal Confidentiality of Alcohol and Drug Abuse Patient Records regulations: The Federal rules restrict any use of the information to criminally investigate or prosecute any alcohol or drug abuse patient.[facility] HospitalIn the event this information is protected by the Federal Confidentiality of Alcohol and Drug Abuse Patient Records regulations: The Federal rules restrict any use of the information to criminally investigate or prosecute any alcohol or drug abuse patient.[facility]In the event this information is protected by the Federal Confidentiality of Alcohol and Drug Abuse Patient Records regulations: The Federal rules restrict any use of the information to criminally investigate or prosecute any alcohol or drug abuse patient.[facility] HospitalIn the event this information is protected by the Federal Confidentiality of Alcohol and Drug Abuse Patient Records regulations: The Federal rules restrict any use of the information to criminally investigate or prosecute any alcohol or drug abuse patient.[facility]In the event this information is protected by the Federal Confidentiality of Alcohol and Drug Abuse Patient Records regulations: The Federal rules restrict any use of the information to criminally investigate or prosecute any alcohol or drug abuse patient.[facility]In the event this information is protected by the Federal Confidentiality of Alcohol and Drug Abuse Patient Records regulations: The Federal rules restrict any use of the information to criminally investigate or prosecute any alcohol or drug abuse patient.[facility]In the event this information is protected by the Federal Confidentiality of Alcohol and Drug Abuse Patient Records regulations: The Federal rules restrict any use of the information to criminally investigate or prosecute any alcohol or drug abuse patient.[facility]In the event this information is protected by the Federal Confidentiality of Alcohol and Drug Abuse Patient Records regulations: The Federal rules restrict any use of the information to criminally investigate or prosecute any alcohol or drug abuse patient.[facility]In the event this information is protected by the Federal Confidentiality of Alcohol and Drug Abuse Patient Records regulations: The Federal rules restrict any use of the information to criminally investigate or prosecute any alcohol or drug abuse patient.[facility]In the event this information is protected by the Federal Confidentiality of Alcohol and Drug Abuse Patient Records regulations: The Federal rules restrict any use of the information to criminally investigate or prosecute any alcohol or drug abuse patient.[facility]In the event this information is protected by the Federal Confidentiality of Alcohol and Drug Abuse Patient Records regulations: The Federal rules restrict any use of the information to criminally investigate or prosecute any alcohol or drug abuse patient.[facility]In the event this information is protected by the Federal Confidentiality of Alcohol and Drug Abuse Patient Records regulations: The Federal rules restrict any use of the information to criminally investigate or prosecute any alcohol or drug abuse patient.[facility]In the event this information is protected by the Federal Confidentiality of Alcohol and Drug Abuse Patient Records regulations: The Federal rules restrict any use of the information to criminally investigate or prosecute any alcohol or drug abuse patient.[facility]In the event this information is protected by the Federal Confidentiality of Alcohol and Drug Abuse Patient Records regulations: The Federal rules restrict any use of the information to criminally investigate or prosecute any alcohol or drug abuse patient.[facility]In the event this information is protected by the Federal Confidentiality of Alcohol and Drug Abuse Patient Records regulations: The Federal rules restrict any use of the information to criminally investigate or prosecute any alcohol or drug abuse patient.[facility]In the event this information is protected by the Federal Confidentiality of Alcohol and Drug Abuse Patient Records regulations: The Federal rules restrict any use of the information to criminally investigate or prosecute any alcohol or drug abuse patient.[facility]In the event this information is protected by the Federal Confidentiality of Alcohol and Drug Abuse Patient Records regulations: The Federal rules restrict any use of the information to criminally investigate or prosecute any alcohol or drug abuse patient.[facility]In the event this information is protected by the Federal Confidentiality of Alcohol and Drug Abuse Patient Records regulations: The Federal rules restrict any use of the information to criminally investigate or prosecute any alcohol or drug abuse patient.[facility]In the event this information is protected by the Federal Confidentiality of Alcohol and Drug Abuse Patient Records regulations: The Federal rules restrict any use of the information to criminally investigate or prosecute any alcohol or drug abuse patient.[facility]In the event this information is protected by the Federal Confidentiality of Alcohol and Drug Abuse Patient Records regulations: The Federal rules restrict any use of the information to criminally investigate or prosecute any alcohol or drug abuse patient.[facility]In the event this information is protected by the Federal Confidentiality of Alcohol and Drug Abuse Patient Records regulations: The Federal rules restrict any use of the information to criminally investigate or prosecute any alcohol or drug abuse patient.[facility]In the event this information is protected by the Federal Confidentiality of Alcohol and Drug Abuse Patient Records regulations: The Federal rules restrict any use of the information to criminally investigate or prosecute any alcohol or drug abuse patient.[facility]In the event this information is protected by the Federal Confidentiality of Alcohol and Drug Abuse Patient Records regulations: The Federal rules restrict any use of the information to criminally investigate or prosecute any alcohol or drug abuse patient.[facility]In the event this information is protected by the Federal Confidentiality of Alcohol and Drug Abuse Patient Records regulations: The Federal rules restrict any use of the information to criminally investigate or prosecute any alcohol or drug abuse patient.[facility]In the event this information is protected by the Federal Confidentiality of Alcohol and Drug Abuse Patient Records regulations: The Federal rules restrict any use of the information to criminally investigate or prosecute any alcohol or drug abuse patient.[facility]In the event this information is protected by the Federal Confidentiality of Alcohol and Drug Abuse Patient Records regulations: The Federal rules restrict any use of the information to criminally investigate or prosecute any alcohol or drug abuse patient.[facility]In the event this information is protected by the Federal Confidentiality of Alcohol and Drug Abuse Patient Records regulations: The Federal rules restrict any use of the information to criminally investigate or prosecute any alcohol or drug abuse patient.[facility]In the event this information is protected by the Federal Confidentiality of Alcohol and Drug Abuse Patient Records regulations: The Federal rules restrict any use of the information to criminally investigate or prosecute any alcohol or drug abuse patient.[facility]In the event this information is protected by the Federal Confidentiality of Alcohol and Drug Abuse Patient Records regulations: The Federal rules restrict any use of the information to criminally investigate or prosecute any alcohol or drug abuse patient.[facility]In the event this information is protected by the Federal Confidentiality of Alcohol and Drug Abuse Patient Records regulations: The Federal rules restrict any use of the information to criminally investigate or prosecute any alcohol or drug abuse patient.[facility]In the event this information is protected by the Federal Confidentiality of Alcohol and Drug Abuse Patient Records regulations: The Federal rules restrict any use of the information to criminally investigate or prosecute any alcohol or drug abuse patient.[facility]In the event this information is protected by the Federal Confidentiality of Alcohol and Drug Abuse Patient Records regulations: The Federal rules restrict any use of the information to criminally investigate or prosecute any alcohol or drug abuse patient.[facility]In the event this information is protected by the Federal Confidentiality of Alcohol and Drug Abuse Patient Records regulations: The Federal rules restrict any use of the information to criminally investigate or prosecute any alcohol or drug abuse patient.[facility]In the event this information is protected by the Federal Confidentiality of Alcohol and Drug Abuse Patient Records regulations: The Federal rules restrict any use of the information to criminally investigate or prosecute any alcohol or drug abuse patient.[facility]In the event this information is protected by the Federal Confidentiality of Alcohol and Drug Abuse Patient Records regulations: The Federal rules restrict any use of the information to criminally investigate or prosecute any alcohol or drug abuse patient.[facility]In the event this information is protected by the Federal Confidentiality of Alcohol and Drug Abuse Patient Records regulations: The Federal rules restrict any use of the information to criminally investigate or prosecute any alcohol or drug abuse patient.[facility] HospitalIn the event this information is protected by the Federal Confidentiality of Alcohol and Drug Abuse Patient Records regulations: The Federal rules restrict any use of the information to criminally investigate or prosecute any alcohol or drug abuse patient.[facility] HospitalIn the event this information is protected by the Federal Confidentiality of Alcohol and Drug Abuse Patient Records regulations: The Federal rules restrict any use of the information to criminally investigate or prosecute any alcohol or drug abuse patient.[facility] HospitalIn the event this information is protected by the Federal Confidentiality of Alcohol and Drug Abuse Patient Records regulations: The Federal rules restrict any use of the information to criminally investigate or prosecute any alcohol or drug abuse patient.[facility] [place] [facility] HospitalIn the event this information is protected by the Federal Confidentiality of Alcohol and Drug Abuse Patient Records regulations: The Federal rules restrict any use of the information to criminally investigate or prosecute any alcohol or drug abuse patient.[facility] [place] [facility] HospitalIn the event this information is protected by the Federal Confidentiality of Alcohol and Drug Abuse Patient Records regulations: The Federal rules restrict any use of the information to criminally investigate or prosecute any alcohol or drug abuse patient.[facility] [place] [facility] HospitalIn the event this information is protected by the Federal Confidentiality of Alcohol and Drug Abuse Patient Records regulations: The Federal rules restrict any use of the information to criminally investigate or prosecute any alcohol or drug abuse patient.[facility] [place] [facility] HospitalIn the event this information is protected by the Federal Confidentiality of Alcohol and Drug Abuse Patient Records regulations: The Federal rules restrict any use of the information to criminally investigate or prosecute any alcohol or drug abuse patient.[facility] [place] [facility] HospitalIn the event this information is protected by the Federal Confidentiality of Alcohol and Drug Abuse Patient Records regulations: The Federal rules restrict any use of the information to criminally investigate or prosecute any alcohol or drug abuse patient.[facility] [place] [facility] HospitalIn the event this information is protected by the Federal Confidentiality of Alcohol and Drug Abuse Patient Records regulations: The Federal rules restrict any use of the information to criminally investigate or prosecute any alcohol or drug abuse patient.[facility] [place] [facility] HospitalIn the event this information is protected by the Federal Confidentiality of Alcohol and Drug Abuse Patient Records regulations: The Federal rules restrict any use of the information to criminally investigate or prosecute any alcohol or drug abuse patient.[facility] [place] [facility] HospitalIn the event this information is protected by the Federal Confidentiality of Alcohol and Drug Abuse Patient Records regulations: The Federal rules restrict any use of the information to criminally investigate or prosecute any alcohol or drug abuse patient.[facility] [place] [facility] HospitalIn the event this information is protected by the Federal Confidentiality of Alcohol and Drug Abuse Patient Records regulations: The Federal rules restrict any use of the information to criminally investigate or prosecute any alcohol or drug abuse patient.[facility] [place] [facility] HospitalIn the event this information is protected by the Federal Confidentiality of Alcohol and Drug Abuse Patient Records regulations: The Federal rules restrict any use of the information to criminally investigate or prosecute any alcohol or drug abuse patient.[facility] [place] [facility] HospitalIn the event this information is protected by the Federal Confidentiality of Alcohol and Drug Abuse Patient Records regulations: The Federal rules restrict any use of the information to criminally investigate or prosecute any alcohol or drug abuse patient.[facility] [place] [facility] HospitalIn the event this information is protected by the Federal Confidentiality of Alcohol and Drug Abuse Patient Records regulations: The Federal rules restrict any use of the information to criminally investigate or prosecute any alcohol or drug abuse patient.[facility] [place] [facility] HospitalIn the event this information is protected by the Federal Confidentiality of Alcohol and Drug Abuse Patient Records regulations: The Federal rules restrict any use of the information to criminally investigate or prosecute any alcohol or drug abuse patient.[facility] [place] [facility] HospitalIn the event this information is protected by the Federal Confidentiality of Alcohol and Drug Abuse Patient Records regulations: The Federal rules restrict any use of the information to criminally investigate or prosecute any alcohol or drug abuse patient.[facility] [place] [facility] HospitalIn the event this information is protected by the Federal Confidentiality of Alcohol and Drug Abuse Patient Records regulations: The Federal rules restrict any use of the information to criminally investigate or prosecute any alcohol or drug abuse patient.[facility] [place] [facility] HospitalIn the event this information is protected by the Federal Confidentiality of Alcohol and Drug Abuse Patient Records regulations: The Federal rules restrict any use of the information to criminally investigate or prosecute any alcohol or drug abuse patient.[facility] [place] [facility] HospitalIn the event this information is protected by the Federal Confidentiality of Alcohol and Drug Abuse Patient Records regulations: The Federal rules restrict any use of the information to criminally investigate or prosecute any alcohol or drug abuse patient.[facility] [place] [facility] HospitalIn the event this information is protected by the Federal Confidentiality of Alcohol and Drug Abuse Patient Records regulations: The Federal rules restrict any use of the information to criminally investigate or prosecute any alcohol or drug abuse patient.[facility] [place] [facility] HospitalIn the event this information is protected by the Federal Confidentiality of Alcohol and Drug Abuse Patient Records regulations: The Federal rules restrict any use of the information to criminally investigate or prosecute any alcohol or drug abuse patient.[facility] [place] [facility] HospitalIn the event this information is protected by the Federal Confidentiality of Alcohol and Drug Abuse Patient Records regulations: The Federal rules restrict any use of the information to criminally investigate or prosecute any alcohol or drug abuse patient.[facility] [place] [facility] HospitalIn the event this information is protected by the Federal Confidentiality of Alcohol and Drug Abuse Patient Records regulations: The Federal rules restrict any use of the information to criminally investigate or prosecute any alcohol or drug abuse patient.[facility] [place] [facility] HospitalIn the event this information is protected by the Federal Confidentiality of Alcohol and Drug Abuse Patient Records regulations: The Federal rules restrict any use of the information to criminally investigate or prosecute any alcohol or drug abuse patient.[facility] [place] [facility] HospitalIn the event this information is protected by the Federal Confidentiality of Alcohol and Drug Abuse Patient Records regulations: The Federal rules restrict any use of the information to criminally investigate or prosecute any alcohol or drug abuse patient.[facility] [place] [facility] HospitalIn the event this information is protected by the Federal Confidentiality of Alcohol and Drug Abuse Patient Records regulations: The Federal rules restrict any use of the information to criminally investigate or prosecute any alcohol or drug abuse patient.[facility] [place] [facility] HospitalIn the event this information is protected by the Federal Confidentiality of Alcohol and Drug Abuse Patient Records regulations: The Federal rules restrict any use of the information to criminally investigate or prosecute any alcohol or drug abuse patient.[facility] [place] [facility] HospitalIn the event this information is protected by the Federal Confidentiality of Alcohol and Drug Abuse Patient Records regulations: The Federal rules restrict any use of the information to criminally investigate or prosecute any alcohol or drug abuse patient.[facility] [place] [facility] HospitalIn the event this information is protected by the Federal Confidentiality of Alcohol and Drug Abuse Patient Records regulations: The Federal rules restrict any use of the information to criminally investigate or prosecute any alcohol or drug abuse patient.[facility] [place] [facility] HospitalIn the event this information is protected by the Federal Confidentiality of Alcohol and Drug Abuse Patient Records regulations: The Federal rules restrict any use of the information to criminally investigate or prosecute any alcohol or drug abuse patient.[facility] [place] [facility] HospitalIn the event this information is protected by the Federal Confidentiality of Alcohol and Drug Abuse Patient Records regulations: The Federal rules restrict any use of the information to criminally investigate or prosecute any alcohol or drug abuse patient.[facility] [place] [facility] HospitalIn the event this information is protected by the Federal Confidentiality of Alcohol and Drug Abuse Patient Records regulations: The Federal rules restrict any use of the information to criminally investigate or prosecute any alcohol or drug abuse patient.[facility] [place] [facility] HospitalIn the event this information is protected by the Federal Confidentiality of Alcohol and Drug Abuse Patient Records regulations: The Federal rules restrict any use of the information to criminally investigate or prosecute any alcohol or drug abuse patient.[facility] [place] [facility] HospitalIn the event this information is protected by the Federal Confidentiality of Alcohol and Drug Abuse Patient Records regulations: The Federal rules restrict any use of the information to criminally investigate or prosecute any alcohol or drug abuse patient.[facility] [place] [facility] HospitalIn the event this information is protected by the Federal Confidentiality of Alcohol and Drug Abuse Patient Records regulations: The Federal rules restrict any use of the information to criminally investigate or prosecute any alcohol or drug abuse patient.[facility] [place] [facility] HospitalIn the event this information is protected by the Federal Confidentiality of Alcohol and Drug Abuse Patient Records regulations: The Federal rules restrict any use of the information to criminally investigate or prosecute any alcohol or drug abuse patient.[facility] [place] [facility] HospitalIn the event this information is protected by the Federal Confidentiality of Alcohol and Drug Abuse Patient Records regulations: The Federal rules restrict any use of the information to criminally investigate or prosecute any alcohol or drug abuse patient.[facility] [place] [facility] HospitalIn the event this information is protected by the Federal Confidentiality of Alcohol and Drug Abuse Patient Records regulations: The Federal rules restrict any use of the information to criminally investigate or prosecute any alcohol or drug abuse patient.[facility] [place] [facility] HospitalIn the event this information is protected by the Federal Confidentiality of Alcohol and Drug Abuse Patient Records regulations: The Federal rules restrict any use of the information to criminally investigate or prosecute any alcohol or drug abuse patient.[facility] [place] [facility] HospitalIn the event this information is protected by the Federal Confidentiality of Alcohol and Drug Abuse Patient Records regulations: The Federal rules restrict any use of the information to criminally investigate or prosecute any alcohol or drug abuse patient.[facility] [place] [facility] HospitalIn the event this information is protected by the Federal Confidentiality of Alcohol and Drug Abuse Patient Records regulations: The Federal rules restrict any use of the information to criminally investigate or prosecute any alcohol or drug abuse patient.[facility] [place] [facility] HospitalIn the event this information is protected by the Federal Confidentiality of Alcohol and Drug Abuse Patient Records regulations: The Federal rules restrict any use of the information to criminally investigate or prosecute any alcohol or drug abuse patient.[facility] [place] [facility] HospitalIn the event this information is protected by the Federal Confidentiality of Alcohol and Drug Abuse Patient Records regulations: The Federal rules restrict any use of the information to criminally investigate or prosecute any alcohol or drug abuse patient.[facility] [place] [facility] HospitalIn the event this information is protected by the Federal Confidentiality of Alcohol and Drug Abuse Patient Records regulations: The Federal rules restrict any use of the information to criminally investigate or prosecute any alcohol or drug abuse patient.[facility] [place] [facility] HospitalIn the event this information is protected by the Federal Confidentiality of Alcohol and Drug Abuse Patient Records regulations: The Federal rules restrict any use of the information to criminally investigate or prosecute any alcohol or drug abuse patient.[facility] [place] [facility] HospitalIn the event this information is protected by the Federal Confidentiality of Alcohol and Drug Abuse Patient Records regulations: The Federal rules restrict any use of the information to criminally investigate or prosecute any alcohol or drug abuse patient.[facility] [place] [facility] HospitalIn the event this information is protected by the Federal Confidentiality of Alcohol and Drug Abuse Patient Records regulations: The Federal rules restrict any use of the information to criminally investigate or prosecute any alcohol or drug abuse patient.[facility] [place] [facility] HospitalIn the event this information is protected by the Federal Confidentiality of Alcohol and Drug Abuse Patient Records regulations: The Federal rules restrict any use of the information to criminally investigate or prosecute any alcohol or drug abuse patient.[facility] [place] [facility] HospitalIn the event this information is protected by the Federal Confidentiality of Alcohol and Drug Abuse Patient Records regulations: The Federal rules restrict any use of the information to criminally investigate or prosecute any alcohol or drug abuse patient.[facility] [place] [facility] HospitalIn the event this information is protected by the Federal Confidentiality of Alcohol and Drug Abuse Patient Records regulations: The Federal rules restrict any use of the information to criminally investigate or prosecute any alcohol or drug abuse patient.[facility] [place] [facility] HospitalIn the event this information is protected by the Federal Confidentiality of Alcohol and Drug Abuse Patient Records regulations: The Federal rules restrict any use of the information to criminally investigate or prosecute any alcohol or drug abuse patient.[facility] [place] [facility] HospitalIn the event this information is protected by the Federal Confidentiality of Alcohol and Drug Abuse Patient Records regulations: The Federal rules restrict any use of the information to criminally investigate or prosecute any alcohol or drug abuse patient.[facility] [place] [facility] HospitalIn the event this information is protected by the Federal Confidentiality of Alcohol and Drug Abuse Patient Records regulations: The Federal rules restrict any use of the information to criminally investigate or prosecute any alcohol or drug abuse patient.[facility] [place] [facility] HospitalIn the event this information is protected by the Federal Confidentiality of Alcohol and Drug Abuse Patient Records regulations: The Federal rules restrict any use of the information to criminally investigate or prosecute any alcohol or drug abuse patient.[facility] [place] [facility] HospitalIn the event this information is protected by the Federal Confidentiality of Alcohol and Drug Abuse Patient Records regulations: The Federal rules restrict any use of the information to criminally investigate or prosecute any alcohol or drug abuse patient.[facility] [place] [facility] HospitalIn the event this information is protected by the Federal Confidentiality of Alcohol and Drug Abuse Patient Records regulations: The Federal rules restrict any use of the information to criminally investigate or prosecute any alcohol or drug abuse patient.[facility] [place] [facility] HospitalIn the event this information is protected by the Federal Confidentiality of Alcohol and Drug Abuse Patient Records regulations: The Federal rules restrict any use of the information to criminally investigate or prosecute any alcohol or drug abuse patient.[facility] [place] [facility] HospitalIn the event this information is protected by the Federal Confidentiality of Alcohol and Drug Abuse Patient Records regulations: The Federal rules restrict any use of the information to criminally investigate or prosecute any alcohol or drug abuse patient.[facility] Reason for Visit (unrecogniz ed section and content) Reason Comments Chemotherapy Treatment Specialty Diagnoses / Procedures Referred By Sunil t Referred To Contact Diagnoses Multiple myeloma not having achieved remission (HCC) Katey Booker, DO [address] [place] [address] [facility] [address] [place] [address] Referral ID Status Reason Start Date Expiration Date V isits Requested Visits Authorized [id number] Authorized 06/29/2023 09/27/2023 99 99 Reason Comments Chemotherapy Treatment And Zometa Referral ID Status Reason Start Date Expiration Date V isits Requested Visits Authorized [id number] Authorized 09/24/2022 12/23/2022 99 99 Reason Comments Non-Chemotherapy Treatment Chemotherapy Treatment Reason Comments Established Patient Reason Comments Future Appointment Reason Comments Orders Reason Comments Patient Update Reason Comments Information Reason Comments Patient Question Reason Comments Procedure Reason Comments Director Talent - Other Introduction Reason Comments Review test results Reason Comments Director Talent - Other Dental Clearanc e Received Reason Comments Medication Problem Reason Comments Nutrition Assessment Reason Comments Benefits Investigation Reason Comments Director Talent - Other Questions Reason Comments Director Talent - Other C1D1 Post Treat ment (Revlimid, velcade, decadron, and zometa) Reason Comments Director Talent - Other Symptoms Reason Comments Director Talent - Other Oral Follow-up/ ED follow-up Reason Comments Refill Request Reason Comments Symptom Management Reason Comments Anemia Reason Comments Director Talent - Other Symptoms- Rash Reason Comments Director Talent - Other Hospital Discha rge Reason Comments Established Patient Reason Comments Nutrition Telephone Reason Comments Non-Chemotherapy Treatment Specialty Diagnoses / Procedures Referred By Contac t Referred To Contact Diagnoses Iron deficiency anemia due to chronic blood loss Iron malabsorption Katey Booker, DO [address] [place] [address] [facility] [address] [place] [address] Referral ID Status Reason Start Date Expiration Date V isits Requested Visits Authorized [id number] Authorized 12/30/2022 03/30/2023 99 99 Referral ID Status Reason Start Date Expiration Date Visits Re quested Visits Authorized [id number] Closed 09/24/2022 12/23/2022 99 99 Reason Comments Director Talent - Other Change in treat ment Reason Comments Results Reason Comments First Time Treatment Education Darzalex Reason Comments Director Talent - Other Follow-up Reason Comments Appointment Referral ID Status Reason Start Date Expiration Date Visits Re quested Visits Authorized [id number] Closed 02/23/2023 05/24/2023 99 99 Reason Comments Director Talent - Other C1D1 Post Treat ment Reason Comments Director Talent - Other Follow-up Reason Comments Follow Up Reason Comments Med Change Request Reason Onset Date Comments Refill Request 05/26/2023 Reason Comments Established Patient Post Op Reason Comments Post Op Reason Comments Director Talent - Other Oral Anti-Cance r Agents Education (xeloda) Reason Onset Date Comments SPP Oral Oncology/hematology - Treatment Referra l 06/22/2023 Capecitabine 500mg Insurance Authorization 06/22/2023 No PA Re quired Reason Comments Social Work Services Reason Comments Director Talent - Other Medication inst ructions Reason Comments Appointment Reason Comments Director Talent - Other C1D1 Post Treat ment Call (darzalex) Reason Comments Wound Check Colectomy Reason Comments Follow Up Assess the site with ultrasound Specialty Diagnoses / Procedures [facility] MR IMAGING Diagnoses Acute low back pain, unspecified back pain laterality, unspecified whether sciatica present Multiple myeloma not having achieved remission (HCC) Procedures MRI LUMBAR SPINE WO/W IVCON MRI SPINAL CANAL LUMBAR W/O & W/CONTR MATRL Katey Booker, [address] [place] [address] [place] [address] Referral ID Status Reason Start Date Expiration Date V isits Requested Visits Authorized [id number] Closed Auto-Generate d Referral 09/28/2023 10/27/2024 1 1 Reason Comments Established Patient Reason Comments Electronic Communication Reason Comments Radiology CT Specialty Diagnoses / Procedures [facility] Diagnoses Multiple myeloma not having achieved remission (HCC) Cancer of sigmoid colon (HCC) Procedures CT ABD/PEL W IVCON CT ABD & PELVIS W/CONTRAST Katey Booker, DO [address] [place] [address] [place] [address] Referral ID Status Reason Start Date Expiration Date V isits Requested Visits Authorized [id number] Closed Auto-Generate d Referral 11/23/2023 12/22/2024 1 1 Reason Comments Director Talent - Other Follow-up/quest ions Reason Onset Date Comments Refill Request 01/23/2024 Reason Comments Director Talent - Other Medication Ques tion Reason Comments Chest Congestion cough, sinus pressur e, wheezing x 6 days Reason Comments Radiology XR Specialty Diagnoses / Procedures Referred By Sunil t Referred To Contact Diagnoses Multiple myeloma not having achieved remission (HCC) Katey Booker DO [address] [place] [address] Phone: tel: fax: Hematology/Oncology [address] [place] [address] Phone: tel: fax: Specialty Diagnoses / Procedures Referred By Contac t Referred To Contact CT IMAGING Diagnoses Malignant neoplasm of sigmoid colon (HCC) Procedures CT ABD/PEL W IVCON CT ABD & PELVIS W/CONTRAST David Mckinney [address] [facility] [place] [address] Phone: tel: fax: [place] [address] Referral ID Status Reason Start Date Expiration Date V isits Requested Visits Authorized [id number] Closed Auto-Generate d Referral 06/09/2024 06/08/2025 1 1 Reason Comments AVS 07/04 Reason Comments Consult colonoscopy with his tory of colon cancer Specialty Diagnoses / Procedures Referred By Sunil t Referred To Contact General Surgery Diagnoses Malignant neoplasm of sigmoid colon (HCC) Procedures CONSULT TO GENERAL SURGERY OFFICE/OUTPATIENT [facility] 60 MINUTES Katey Booker, [address] [place] [address] Phone: tel: fax: Referral ID Status Reason Start Date Expiration Date V isits Requested Visits Authorized [id number] Closed PCP Requested Referral 07/04/2024 07/04/2025 1 1 Reason Onset Date Comments Refill Request 08/06/2024 Specialty Diagnoses / Procedures Referred By Sunil eason Referred To Contact Diagnoses Iron deficiency anemia due to chronic blood loss Iron malabsorption (HCC) Katey Booker, [address] [place] [address] Phone: tel: fax: Katey Booker, DO [address] [facility] [place] [address] Phone: tel: fax: Referral ID Status Reason Start Date Expiration Date V isits Requested Visits Authorized [id number] Authorized 09/04/2024 12/03/2024 99 99 Reason Comments Director Talent - Other Appointment Reason Comments Patient Update AVS Reason Comments Consult surgery on 10/17/24 a t Horner Reason Comments 10-17-2024 Colon Horner Care Teams (unrecognized sec tion and content) Cruise Coordinator Relationship Specialty Start Date End Date Krishna Mcdaniel, DO [address] [place] [address] PCP - General Family Practice 11/07/18 Cruise Coordinator Relationship Specialty Start Date End Date Krishna Mcdaniel, DO [address] [place] [address] PCP - General Family Practice 11/07/18 Cruise Coordinator Relationship Specialty Start Date End Date Krishna Mcdaniel, DO [address] [place] [address] PCP - General Family Medicine 11/07/18 Cruise Coordinator Relationship Specialty Start Date End Date Krishna Mcdaniel, DO [address] [place] [address] PCP - General Family Medicine 11/07/18 Cruise Coordinator Relationship Specialty Start Date End Date Krishna Mcdaniel DO [address] [place] [address] PCP - General Family Medicine 11/07/18 Team Status: Active Member Role Status Dates Dr. Krishna Mcdaniel , DO Family Provider Active Dr. Krishna Mcdaniel , DO Primary Care Provider Active Team Status: Inactive Member Role Status Dates Dr. Krishna Mcdaniel , DO Primary Care Provider, Referr ing Provider Active Dr. Kristian Mcdaniel , DO Attending Provider Active Team Status: Inactive Member Role Status Dates Dr. Krishna Mcdaniel , DO Primary Care Provider, Referr ing Provider Active Tessy Trinh EDUCATIONAL PARAPROFESSIONAL, EDUCATIONAL PARAPROFESSIONAL-C Attending Provider Active Team Status: Active Member Role Status Dates Dr. Krishna Mcdaniel , DO Primary Care Provider Active Tessy Trinh EDUCATIONAL PARAPROFESSIONAL, EDUCATIONAL PARAPROFESSIONAL-C Referring Provider, Other Pr ovider Active Dr. Demetri Cisse MD Attending Provider Active Team Status: Inactive Member Role Status Dates Dr. Krishna Mcdaniel , DO Primary Care Provider, Referr ing Provider Active Dr. Katey Mae MD Attending Provider Active Team Status: Active Member Role Status Dates Dr. Krishna Mcdaniel , DO Primary Care Provider Active Liliana Ng Attending Provider Active Team Status: Inactive Member Role Status Dates Dr. Krishna Mcdaniel , DO Primary Care Provider Active Dr. Aleks Vega , DO Attending Provider, Referring Provider Active Team Status: Inactive Member Role Status Dates Dr. Krishna Mcdaniel , DO Primary Care Provider Active Tessy Trinh EDUCATIONAL PARAPROFESSIONAL, EDUCATIONAL PARAPROFESSIONAL-C Attending Provider Active Team Status: Inactive Member Role Status Dates Dr. Krishna Mcdaniel , DO Primary Care Provider Active Dr. Katey Mae MD Attending Provider Active Team Status: Active Member Role Status Dates Dr. Krishna Mcdaniel , DO Primary Care Provider Active Dr. Aleks Vega , DO Attending Provider, Referring Provider Active Team Status: Active Member Role Status Dates Dr. Krishna Mcdaniel , DO Primary Care Provider Active Dr. Katey Mae MD Attending Provider Active Team Status: Inactive Member Role Status Dates Dr. Krishna Mcdaniel , DO Primary Care Provider Active Dr. Katey Mae MD Attending Provider, Referring Provider Active Team Status: Active Member Role Status Dates Dr. Krishna Mcdaniel , DO Primary Care Provider Active Dr. Katey Mae MD Attending Provider, Referring Provider Active Team Status: Inactive Member Role Status Dates Dr. Krishna Mcdaniel , DO Primary Care Provider Active Tessy Trinh EDUCATIONAL PARAPROFESSIONAL, EDUCATIONAL PARAPROFESSIONAL-C Attending Provider, Referrin g Provider Active Cruise Coordinator Relationship Specialty Start Date End Date Krishna Mcdaniel DO [address] [place] [address] PCP - General Family Medicine 11/07/18 Team Status: Inactive Member Role Status Dates Dr. Krishna Mcdaniel , DO Primary Care Provider Active Dr. Katey Booker , DO Attending Provider, Referring Prov ider Active Team Status: Active Member Role Status Dates Dr. Krishna Mcdaniel , DO Primary Care Pr ovider, Attending Provider, Referring Provider Active Team Status: Inactive Member Role Status Dates Dr. Krishna Mcdaniel , DO Primary Care Pr ovider, Attending Provider, Referring Provider Active Cruise Coordinator Relationship Specialty Start Date End Date Krishna Mcdaniel DO [address] [place] [address] PCP - General Family Medicine 11/07/18 Cruise Coordinator Relationship Specialty Start Date End Date Krishna Mcdaniel DO [address] [place] [address] PCP - General Family Medicine 11/07/18 Cruise Coordinator Relationship Specialty Start Date End Date Krishna Mcdaniel DO [address] [place] [address] PCP - General Family Medicine 11/07/18 Cruise Coordinator Relationship Specialty Start Date End Date Krishna Mcdaniel, DO [address] [place] [address] PCP - General Family Medicine 11/07/18 Cruise Coordinator Relationship Specialty Start Date End Date Krishna Mcdaniel, DO [address] [place] [address] PCP - General Family Medicine 11/07/18 Cruise Coordinator Relationship Specialty Start Date End Date Krishna Mcdaniel, DO [address] [place] [address] PCP - General Family Medicine 11/07/18 Cruise Coordinator Relationship Specialty Start Date End Date Krishna Mdcaniel, DO [address] [place] [address] PCP - General Family Medicine 11/07/18 Cha Bautista RN Specialty Director [employer] 10/21/22 Cruise Coordinator Relationship Specialty Start Date End Date Krishna Mcdaniel, DO [address] [place] [address] PCP - General Family Medicine 11/07/18 Cha Bautista RN Specialty Director [employer] 10/21/22 Cruise Coordinator Relationship Specialty Start Date End Date Krishna Mcdaniel, DO [address] [place] [address] PCP - General Family Medicine 11/07/18 Cha Bautista RN Specialty Director [employer] Oncology 10/21/22 Cruise Coordinator Relationship Specialty Start Date End Date Krishna Mcdaniel, DO [address] [place] [address] PCP - General Family Medicine 11/07/18 Cha Bautista RN Specialty Director [employer] Oncology 10/21/22 Cruise Coordinator Relationship Specialty Start Date End Date Krishna Mcdaniel DO [address] [place] [address] PCP - General Family Medicine 11/07/18 Cha Bautista RN Specialty Director [employer] On[employer] 10/21/22 Team Status: Inactive Member Role Status Dates Dr. Krishna Mcdaniel DO Primary Care Provider, Referr ing Provider Active Skyler Louise EDUCATIONAL PARAPROFESSIONAL, EDUCATIONAL PARAPROFESSIONAL-C Attending Provider Active Team Status: Active Member Role Status Dates Dr. Krishna Mcdaniel DO Primary Care Provider Active Dr. Katey Booker DO Attending Provider, Referring Prov ider Active Team Status: Inactive Member Role Status Dates Dr. Krishna Mcdaniel DO Primary Care Provider Active Dr. Cesar Matos , Emergency Provider Active Cruise Coordinator Relationship Specialty Start Date End Date Krishna Mcdaniel DO [address] [place] [address] PCP - General Family Medicine 11/07/18 Cha Bautista RN Specialty Director [employer] 10/21/22 Cruise Coordinator Relationship Specialty Start Date End Date Krishna Mcdaniel DO [address] [place] [address] PCP - General Family Medicine 11/07/18 Cha Bautista RN Specialty Director [employer] Oncology 10/21/22 Cruise Coordinator Relationship Specialty Start Date End Date Krishna Mcdaniel DO [address] [place] [address] PCP - General Family Medicine 11/07/18 Cha Bautista RN Specialty Director [employer] Oncology 10/21/22 Cruise Coordinator Relationship Specialty Start Date End Date Krishna Mcdaniel DO [address] [place] [address] PCP - General Family Medicine 11/07/18 Cha Bautista RN Specialty Director [employer] Oncology 10/21/22 Cruise Coordinator Relationship Specialty Start Date End Date Krishna Mcdaniel DO [address] [place] [address] PCP - General Family Medicine 11/07/18 Cha Bautista RN Specialty Director [employer] Oncology 10/21/22 Katey Booker DO [address] [place] [address] Hematology/Oncology 11/15/22 Cruise Coordinator Relationship Specialty Start Date End Date Krishna Mcdaniel DO [address] [place] [address] PCP - General Family Medicine 11/07/18 Cha Bautista RN Specialty Director [employer] On[employer] 10/21/22 Katey Booker DO [address] [place] [address] Hematology/Oncology 11/15/22 Cruise Coordinator Relationship Specialty Start Date End Date Krishna Mcdaniel DO [address] [place] [address] PCP - General Family Medicine 11/07/18 Cha Bautista RN Specialty Director [employer] Oncology 10/21/22 Katey Booker DO [address] [facility] [place] [address] Hematology/Oncology 11/15/22 Cruise Coordinator Relationship Specialty Start Date End Date Krishna Mcdaniel DO [address] [place] [address] PCP - General Family Medicine 11/07/18 Cha Bautista RN Specialty Director [employer] Oncology 10/21/22 Katey Booker DO [address] [place] [address] Hematology/Oncology 11/15/22 Cruise Coordinator Relationship Specialty Start Date End Date Krishna Mcdaniel DO [address] [place] [address] PCP - General Family Medicine 11/07/18 Cha Bautista RN Specialty Director [employer] Oncology 10/21/22 Katey Booker DO [address] [place] [address] Hematology/Oncology 11/15/22 Team Status: Inactive Member Role Status Dates Dr. Krishna Mcdaniel DO Primary Care Provider Active Dr. Cesar Matos DO Attending Provider, Emergency Provider Active Cruise Coordinator Relationship Specialty Start Date End Date Krishna Mcdaniel DO [address] [place] [address] PCP - General Family Medicine 11/07/18 Cha Bautista RN Specialty Director [employer] Oncology 10/21/22 Katey Booker DO [address] [place] [address] Hematology/Oncology 11/15/22 Cruise Coordinator Relationship Specialty Start Date End Date Krishna Mcdaniel DO [address] [place] [address] PCP - General Family Medicine 11/07/18 Cha Bautista RN Specialty Director [employer] Oncology 10/21/22 Katey Booker DO [address] [place] [address] Hematology/Oncology 11/15/22 Team Status: Active Member Role Status Dates Dr. Krishna Mcdaniel DO Primary Care Provider Active Dr. Dru Mayfield MD Emergency Provider Active Dr. Fernanda Staples DO Admit Provider, Attending Provide r Active Team Status: Active Member Role Status Dates Dr. Krishna R Brown , DO Primary Care Provider Active Dr. Dru Mayfield MD Emergency Provider Active Dr. Fernanda Staples , DO Admit Provider, Att ending Provider, Other Provider Active Team Status: Active Member Role Status Dates Dr. Krishna Mcdaniel , DO Primary Care Provider Active Dr. Makenna Kerr MD Attending Provider Active Team Status: Active Member Role Status Dates Dr. Krishna Mcdaniel , DO Primary Care Provider Active Dr. Dru Mayfield MD Emergency Provider Active Dr. Fernanda Staples , DO Admit Provider, Other Provider Ac tive Dr. Preston Carson MD Attending Provider, Other Provid er Active Team Status: Active Member Role Status Dates Dr. Krishna Mcdaniel , DO Primary Care Provider Active Dr. Dru Mayfield MD Emergency Provider Active Dr. Fernanda Staples , DO Admit Provider, Other Provider Ac tive Dr. Preston Carson MD Other Provider Active Dr. Dudley Cid , Attending Provider Active Team Status: Active Member Role Status Dates Dr. Krishna Mcdaniel , DO Primary Care Provider Active Dr. Dudley Cid , DO Attending Provider Active Team Status: Active Member Role Status Dates Dr. Krishna Mcdaniel , DO Primary Care Provider Active Dr. Dru Mayfield MD Emergency Provider Active Dr. Fernanda Staples , DO Admit Provider, Other Provider Ac tive Dr. Jackie Rose MD Attending Provider, Other Prov ider Active Dr. Preston Carson MD Other Provider Active Team Status: Inactive Member Role Status Dates Dr. Krishna Mcdaniel , DO Primary Care Provider Active Dr. Dru Mayfield MD Emergency Provider Active Dr. Fernanda Staples , DO Admit Provider, Other Provider Ac tive Dr. Jackie Rose MD Attending Provider Active Dr. Preston Carson MD Other Provider Active Cruise Coordinator Relationship Specialty Start Date End Date Krishna Mcdaniel DO [address] [place] [address] PCP - General Family Medicine 11/07/18 Cha Bautista RN Specialty Director [employer] Oncology 10/21/22 Katey Booker DO [address] [place] [address] Hematology/Oncology 11/15/22 Cruise Coordinator Relationship Specialty Start Date End Date Krishna Mcdaniel DO [address] [place] [address] PCP - General Family Medicine 11/07/18 Cha Bautista RN Specialty Director [employer] Oncology 10/21/22 Katey Booker DO [address] [place] [address] Hematology/Oncology 11/15/22 Cruise Coordinator Relationship Specialty Start Date End Date Krishna Mcdaniel DO [address] [place] [address] PCP - General Family Medicine 11/07/18 Cha Bautista RN Specialty Director [employer] Oncology 10/21/22 Katey Booker DO [address] [facility] [place] [address] Hematology/Oncology 11/15/22 Kristian Mcdnaiel [address] [place] [address] Pulmonary Disease 12/30/22 Skyler Louise [address] [place] [address] Cardiology 12/30/22 Cruise Coordinator Relationship Specialty Start Date End Date Krishna Mcdaniel DO [address] [place] [address] PCP - General Family Medicine 11/07/18 Cha Bautista RN Specialty Director [employer] Oncology 10/21/22 Katey Booker DO [address] [place] [address] Hematology/Oncology 11/15/22 Kristian Mcdaniel [address] [place] [phone] Pulmonary Disease 12/30/22 Skyler Louise [address] [place], [place] [id number] Cardiology 12/30/22 Cruise Coordinator Relationship Specialty Start Date End Date Krishna Mcdaniel DO [address] [place], [place] [id number] PCP - General Family Medicine 11/07/18 Cha Bautista RN Specialty Director [employer] Oncology 10/21/22 Katey Booker DO [address] [place], [place] [address] Hematology/Oncology 11/15/22 Kristian Mcdaniel [address] [place] [address] Pulmonary Disease 12/30/22 Skyler Louise [address] [place], [place] [id number] Cardiology 12/30/22 Team Status: Active Member Role Status Dates Dr. Krishna Mcdaniel , DO Primary Care Provider Active Dr. Dru Mayfield MD Emergency Provider Active Dr. Fernanda Staples , Admit Provider, Other Provider Ac tive Dr. Preston Carson MD Attending Provider Active Team Status: Active Member Role Status Dates Dr. Krishna Mcdaniel DO Primary Care Provider Active Dr. Makenna Kerr MD Attending Provider, Referring Pr courtney Active Team Status: Inactive Member Role Status Dates Dr. Krishna Mcdaniel DO Primary Care Provider Active Dr. Navya Ramon DO Attending Provider, Emergency P shanthi Active Team Status: Inactive Member Role Status Dates Dr. Krishna Mcdaniel DO Primary Care Provider Active Dr. Arvind Haynes MD Attending Provider Active Yvette Blair Referring Provider Active Cruise Coordinator Relationship Specialty Start Date End Date Krishna Mcdaniel DO [address] [place] [address] PCP - General Family Medicine 11/07/18 Cha Bautista RN Specialty Director [employer] Oncology 10/21/22 Katey Booker DO [address] [place] [address] Hematology/Oncology 11/15/22 Kristian Mcdaniel [address] [place] [address] Pulmonary Disease 12/30/22 Skyler Louise [address] [place] [address] Cardiology 12/30/22 Cruise Coordinator Relationship Specialty Start Date End Date Krishna Mcdaniel DO [address] [place] [address] PCP - General Family Medicine 11/07/18 Cha Bautista RN Specialty Director [employer] Oncology 10/21/22 Katey Booker DO [address] [place] [address] Hematology/Oncology 11/15/22 Kristian Mcdaniel [address] [place] [address] Pulmonary Disease 12/30/22 Skyler Louise [address] [place] [address] Cardiology 12/30/22 Cruise Coordinator Relationship Specialty Start Date End Date Krishna Mcdaniel DO [address] [place], [place] [address] PCP - General Family Medicine 11/07/18 Cha Bautista RN Specialty Director Tal[employer] Oncology 10/21/22 Katey Booker DO [address] [facility] [place] [place] [address] Hematology/Oncology 11/15/22 Kristian Mcdaniel [address] [place] [phone] Pulmonary Disease 12/30/22 Skyler Louise [address] [place] [address] Cardiology 12/30/22 Cruise Coordinator Relationship Specialty Start Date End Date Krishna Mcdaniel DO [address] [place] [address] PCP - General Family Medicine 11/07/18 Cha Bautista RN Specialty Director Talent Oncology 10/21/22 Katey Booker DO [address] [place] [address] Hematology/Oncology 11/15/22 Kristian Mcdaniel [address] [place] [address] Pulmonary Disease 12/30/22 Skyler Louise [address] [place] [address] Cardiology 12/30/22 Cruise Coordinator Relationship Specialty Start Date End Date Krishna Mcdaniel DO [address] [place] [address] PCP - General Family Medicine 11/07/18 Cha Bautista RN Specialty Director Talent Oncology 10/21/22 Katey Booker DO [address] [place] [address] Hematology/Oncology 11/15/22 Kristian Mcdaniel [address] [place] [address] Pulmonary Disease 12/30/22 Skyelr Louise [address] [place] [address] Cardiology 12/30/22 Cruise Coordinator Relationship Specialty Start Date End Date Krishna Mcdaniel DO [address] [place] [address] PCP - General Family Medicine 11/07/18 Cha Bautista RN Specialty Director Talent Oncology 10/21/22 Katey Booker DO [address] [place] [address] Hematology/Oncology 11/15/22 Kristian Mcdaniel [address] [place] [address] Pulmonary Disease 12/30/22 Skyler Louise [address] [place] [address] Cardiology 12/30/22 Cruise Coordinator Relationship Specialty Start Date End Date Krishna Mcdaniel DO [address] [place] [address] PCP - General Family Medicine 11/07/18 Cha Bautista RN Specialty Director Talent Oncology 10/21/22 Katey Booker DO [address] [place] [address] Hematology/Oncology 11/15/22 Kristian Mcdaniel [address] [place] [address] Pulmonary Disease 12/30/22 Skyler Louise [address] [place] [address] Cardiology 12/30/22 Arvind Haynes MD [address] [place] [address] [place] [address] Urology 02/23/23 Cruise Coordinator Relationship Specialty Start Date End Date Krishna Mcdaniel DO [address] [place] [address] PCP - General Family Medicine 11/07/18 Cha Bautista RN Specialty Director Talent Oncology 10/21/22 Katey Booker DO [address] [place] [address] Hematology/Oncology 11/15/22 Kristian Mcdaniel [address] [place] [address] Pulmonary Disease 12/30/22 Skyler Louise [address] [place] [address] Cardiology 12/30/22 Arvind Haynes MD [address] [id number] Urology 02/23/23 Team Status: Active Member Role Status Dates Dr. Krishna Mcdaniel , DO Primary Care Provider Active Dr. Dru Mayfield MD Emergency Provider Active Dr. Fernanda Staples , DO Admit Provider, Other Provider Ac tive Dr. Preston Carson MD Other Provider Active Dr. Dudley Cid , DO Attending Provider Active Dr. Jackie Rose MD Referring Provider Active Team Status: Active Member Role Status Dates Dr. Krishna Mcdaniel , DO Primary Care Provider Active Dr. Dudley Cid , DO Attending Provider Active Dr. Jackie Rose MD Referring Provider Active Team Status: Active Member Role Status Dates Dr. Krishna Mcdaniel , DO Primary Care Provider Active Dr. Arvind Haynes MD Admit Provid er, Referring Provider, Other Provider Active Dr. Janes Pennington MD Attending Provider, Other Provider Active Team Status: Active Member Role Status Dates Dr. Krishna Mcdaniel , DO Primary Care Provider Active Dr. Arvind Haynes MD Admit Provider, Other Prov ider Active Dr. Clif Everett , DO Other Provider Active Dr. Rafat Everett , DO Attending Provider Active Team Status: Inactive Member Role Status Dates Dr. Krishna Mcdaniel , DO Primary Care Provider Active Dr. Arvind Haynes MD Admit Provid er, Attending Provider, Referring Provider Active Dr. Clif Everett , DO Other Provider Active Team Status: Inactive Member Role Status Dates Dr. Krishna Mcdaniel , DO Primary Care Provider Active Dr. Omid Beckman MD Attending Provider Active Team Status: Inactive Member Role Status Dates Dr. Krishna Mcdaniel , DO Primary Care Provider Active Dr. Dru Mayfield MD Emergency Provider Active Cruise Coordinator Relationship Specialty Start Date End Date Krishna Mcdaniel DO [address] [place], [place] [address] PCP - General Family Medicine 11/07/18 Cha Bautista RN Specialty Director Tal[employer] Oncology 10/21/22 Cruise Coordinator Relationship Specialty Start Date End Date Krishna Mcdaniel DO [address] [place] [address] PCP - General Family Medicine 11/07/18 Cha Bautista RN Specialty Director Talent Oncology 10/21/22 Katey Booker DO [address] [place] [address] Hematology/Oncology 11/15/22 Kristian Mcdaniel [address] [place] [address] Pulmonary Disease 12/30/22 Skyler Louise [address] [facility] [address] [place] [address] Cardiology 12/30/[address] [facility] [address] [place] [address] Urology 02/23/23 Cruise Coordinator Relationship Specialty Start Date End Date Krishna Mcdaniel DO [address] [place] [address] PCP - General Family Medicine 11/07/18 Cha Bautista RN Specialty Director Talent Oncology 10/21/22 Katey Booker DO [address] [place] [address] Hematology/Oncology 11/15/22 Kristian Mcdaniel [address] [place] [address] Pulmonary Disease 12/30/22 Skyler Louise [address] [place] [address] Cardiology 12/30/22 Arvind Haynes MD [address] [address] [place] [address] Urology 02/23/23 Cruise Coordinator Relationship Specialty Start Date End Date Krishna Mcdaniel DO [address] [place] [address] PCP - General Family Medicine 11/07/18 Cha Bautista RN Specialty Director Talent Oncology 10/21/22 Katey Booker DO [address] [place] [address] Hematology/Oncology 11/15/22 Kristian Mcdaniel [address] [place] [address] Pulmonary Disease 12/30/22 Skyler Louise [address] [place] [address] Cardiology 12/30/22 Arvind Haynes MD [address] [place] [address] [place] [address] Urology 02/23/23 Cruise Coordinator Relationship Specialty Start Date End Date Krishna Mcdaniel DO [address] [place] [address] PCP - General Family Medicine 11/07/18 Cha Bautista RN Specialty Director Talent Oncology 10/21/22 Katey Booker DO [address] [place] [address] Hematology/Oncology 11/15/22 Kristian Mcdaniel [address] [place] [address] Pulmonary Disease 12/30/22 Skyler Louise [address] [place] [address] Cardiology 12/30/22 Arvind Haynes MD [address] [address] [place] [address] Urology 02/23/23 Team Status: Inactive Member Role Status Dates Dr. Krishna Mcdaniel DO Primary Care Provider Active Dr. Dru Mayfield MD Attending Provider, Emergency Provider Active Cruise Coordinator Relationship Specialty Start Date End Date Krishna Mcdaniel DO [address] [place] [address] PCP - General Family Medicine 11/07/18 Cha Bautista, CHUCHO Specialty Director Talent Oncology 10/21/22 Katey Booker DO [address] [place] [address] Hematology/Oncology 11/15/22 Kristian Mcdaniel [address] [place] [address] Pulmonary Disease 12/30/22 Skyler Louise [address] [place] [address] Cardiology 12/30/22 Arvind Haynes MD [address] [address] [place] [address] Urology 02/23/23 Cruise Coordinator Relationship Specialty Start Date End Date Krishna Mcdaniel DO [address] [place] [address] PCP - General Family Medicine 11/07/18 Cha Bautista, RN Specialty Director Talent Oncology 10/21/22 Katey Booker DO [address] [place] [address] Hematology/Oncology 11/15/22 Kristian Mcdaniel [address] [place] [address] Pulmonary Disease 12/30/22 Skyler Louise [address] [place] [address] Cardiology 12/30/22 Arvind Haynes MD [address] [place] [address] [place] [address] Urology 02/23/23 Cruise Coordinator Relationship Specialty Start Date End Date Krishna Mcdaniel DO [address] [place] [address] PCP - General Family Medicine 11/07/18 Cha Bautista RN Specialty Director Talent Oncology 10/21/22 Katey Booker DO [address] [place] [address] Hematology/Oncology 11/15/22 Kristian Mcdaniel [address] [place] [address] Pulmonary Disease 12/30/22 Skyler Louise [address] [place] [address] Cardiology 12/30/22 Arvind Haynes MD [address] [place] [address] [address] [place] [address] Urology 02/23/23 Manfred Lo MD [address] [facility] [address] [place], [place] [address] Gastroenterology 03/21/23 Team Status: Inactive Member Role Status Dates Dr. Krishna Mcdaniel DO Primary Care Provider Active Dr. Aleks Vega DO Attending Provider Active Cruise Coordinator Relationship Specialty Start Date End Date Krishna Mcdaniel DO [address] [place] [address] PCP - General Family Medicine 11/07/18 Cha Bautista, RN Specialty Director Talent Oncology 10/21/22 Katey Booker DO [address] [place] [address] Hematology/Oncology 11/15/22 Kristian Mcdaniel [address] [place] [address] Pulmonary Disease 12/30/22 Skyler Louise [address] [place] [address] [place], [place] [address] Cardiology 12/30/22 Arvind Haynes MD [address] [place] [address] 210 [place] [address] Urology 02/23/23 Manfred Lo MD [address] [facility] 206 [place] [address] Gastroenterology 03/21/23 Cruise Coordinator Relationship Specialty Start Date End Date Krishna Mcdaniel DO [address] [place] [address] PCP - General Family Medicine 11/07/18 Cha Bautista RN Specialty Director Talent Oncology 10/21/22 Katey Booker DO [address] [place] [address] Hematology/Oncology 11/15/22 Kristian Mcdaniel [address] [facility] [address] Pulmonary Disease 12/30/22 Skyler Louise [address] [facility] 3[address] [place] [address] Cardiology 12/30/22 Arvind Haynes MD [address] [place] [address] 210 [place] [address] Urology 02/23/23 Manfred Lo MD [address] [facility] 206 [place] [address] Gastroenterology 03/21/23 Cruise Coordinator Relationship Specialty Start Date End Date Krishna Mcdaniel DO [address] [place] [address] PCP - General Family Medicine 11/07/18 Cha Bautista RN Specialty Director Talent Oncology 10/21/22 Katey Booker DO [address] [place] [address] Hematology/Oncology 11/15/22 Kristian Mcdaniel [address] [place] [address] Pulmonary Disease 12/30/22 Skyler Louise [address] [address] [place] [address] Cardiology 12/30/22 Arvind [address] [facility] 210 [place] [address] Urology 02/23/23 Manfred Lo MD [address] [place] 206 [place] [address] Gastroenterology 03/21/23 Cruise Coordinator Relationship Specialty Start Date End Date Krishna Mcdaniel DO [address] [place] [address] PCP - General Family Medicine 11/07/18 Cha Bautista RN Specialty Director Talent Oncology 10/21/22 Katey Booker DO [address] [place] [address] Hematology/Oncology 11/15/22 Kristian Mcdaniel [address] [place] [address] Pulmonary Disease 12/30/22 Skyler Louise [address] [place] [address] [place] [address] Cardiology 12/30/22 Arvind Haynes MD [address] [facility] 210 [place] [address] Urology 02/23/23 Manfred Lo MD [address] [place] 206 [place] [address] Gastroenterology 03/21/23 Cruise Coordinator Relationship Specialty Start Date End Date Krishna Mcdaniel DO [address] [place] [address] PCP - General Family Medicine 11/07/18 Cha Bautista RN Specialty Director Talent Oncology 10/21/22 Katey Booker DO [address] [place] [address] Hematology/Oncology 11/15/22 Kristian Mcdaniel [address] [place] [address] Pulmonary Disease 12/30/22 Skyler Louise [address] [place] [address] [place] [address] Cardiology 12/30/22 Ar[address] [facility] 210 [place] [address] Urology 02/23/23 Manfred Lo MD [address] [place] 206 [place] [address] Gastroenterology 03/21/23 Cruise Coordinator Relationship Specialty Start Date End Date Krishna Mcdaniel DO [address] [place] [address] PCP - General Family Medicine 11/07/18 Cha Bautista, RN Specialty Director Talent Oncology 10/21/22 Katey Booker DO [address] [place] [address] Hematology/Oncology 11/15/22 Kristian Mcdaniel 17[address] [facility] [place] [address] Pulmonary Disease 12/30/22 Skyler Louise [address] [facility] 3A [place] [address] Cardiology 12/30/22 Arvind [address] MD [address] [facility] 210 [place] [address] Urology 02/23/23 Manfred Lo MD [address] [facility] 206 [place] [address] Gastroenterology 03/21/23 Trina Bernal MD [address] [place] [address] Primary Staff Physician Cardiology 05/02/23 Cruise Coordinator Relationship Specialty Start Date End Date Krishna Mcdaniel DO [address] [place], [place] [address] PCP - General Family Medicine 11/07/18 Cha Bautista, RN Specialty Director Talent Oncology 10/21/22 Katey Booker DO [address] [place], [place] [address] Hematology/Oncology 11/15/22 Kristian Mcdaniel [address] [place] [address] Pulmonary Disease 12/30/22 Skyler Louise [address] [place] [address] Cardiology 12/30/22 Ar[address]ind [address] MD [address] [facility] 210 [place], [place] [address] Urology 02/23/23 Manfred Lo MD [address] [facility] 206 [place], [place] [address] Gastroenterology 03/21/23 Trina Bernal MD [address] [place] [address] Primary Staff Physician Cardiology 05/02/23 Cruise Coordinator Relationship Specialty Start Date End Date Krishna Mcdaniel DO [address] [place], [place] [address] PCP - General Family Medicine 11/07/18 Cha Bautista RN Specialty Director Talent Oncology 10/21/22 Katey Booker DO [address] [place] [address] Hematology/Oncology 11/15/22 Kristian Mcdaniel [address] [place] [address] Pulmonary Disease 12/30/22 Skyler Louise [address] [place] [address] [place] [address] Cardiology 12/30/22 Arvind [address] [facility] 210 [place] [address] Urology 02/23/23 Manfred Lo MD [address] [facility] 206 [place] [address] Gastroenterology 03/21/23 Trina Bernal MD [address] [place], [place] 532[address] Primary Staff Physician Cardiology 05/02/23 Cruise Coordinator Relationship Specialty Start Date End Date Krishna Mcdaniel DO [address] [place] [address] PCP - General Family Medicine 11/07/18 Cha Bautista, CHUCHO Specialty Director Talent Oncology 10/21/22 Katey Booker DO [address] [place] [address] Hematology/Oncology 11/15/22 Kristian Mcdaniel [address] [place] [address] Pulmonary Disease 12/30/22 Skyler Louise [address] [place] [address] [place], [place] 250[address] Cardiology 12/30/22 Ar[address]ind [address] MD [address] [facility] 210 [place], [place] 7039[address] Urology 02/23/23 Manfred Lo MD [address] [facility] 206 [place], [place] [address] Gastroenterology 03/21/23 Trina Bernal MD [address] [place], [place] 7434[address] Primary Staff Physician Cardiology 05/02/23 Cruise Coordinator Relationship Specialty Start Date End Date Krishna Mcdaniel DO [address] [place] [address] PCP - General Family Medicine 11/07/18 Cha Bautista RN Specialty Director Talent Oncology 10/21/22 Katey Booker DO [address] [place] [address] Hematology/Oncology 11/15/22 Kristian Mcdaniel [address] [facility] [place] [address] Pulmonary Disease 12/30/22 Skyler Louise [address] [facility] 3A [place] [address] Cardiology 12/30/22 Ar[address] [facility] 210 [place], [place] [address] Urology 02/23/23 Manfred Lo MD [address] [facility] 206 [place] [address] Gastroenterology 03/21/23 Trina Bernal MD [address] [place] [address] Primary Staff Physician Cardiology 05/02/23 Cruise Coordinator Relationship Specialty Start Date End Date Krishna Mcdaniel DO [address] [place] [address] PCP - General Family Medicine 11/07/18 Cha Bautista, CHUCHO Specialty Director Talent Oncology 10/21/22 Katey Booker DO [address] [place] [address] Hematology/Oncology 11/15/22 Kristian Mcdaniel [address] [facility] [place] [address] Pulmonary Disease 12/30/22 Skyler Louise 1761 [facility] [place] [address] [place] [address] Cardiology 12/30/22 Arvind Hay[address] MD [address] [facility] 210 [place] [address] Urology 02/23/23 Manfred Lo MD [address] [facility] [place] 206 [place] [address] Gastroenterology 03/21/23 Trina Bernal MD [address] [place] [address] Primary Staff Physician Cardiology 05/02/23 Cruise Coordinator Relationship Specialty Start Date End Date Krishna Mcdaniel DO [address] [place] [address] PCP - General Family Medicine 11/07/18 Cha Bautista RN Specialty Director Talent Oncology 10/21/22 Katey Booker DO [address] [place] [address] Hematology/Oncology 11/15/22 Kristian Mcdaniel [address] [facility] [place] [address] Pulmonary Disease 12/30/22 Skyler Louise 1761 [facility] AVLv [facility] 3A [place], [place] 1445[address] Cardiology 12/30/22 Ar[address]ind [address] MD [address] [facility] 210 [place], [place] [address]281 Urology 02/23/23 Manfred Lo MD [address] [facility] 206 [place], [place] [address] Gastroenterology 03/21/23 Trina Bernal MD [address] [place] [address] Primary Staff Physician Cardiology 05/02/23 Team Status: Inactive Member Role Status Dates Dr. Krishna Mcdaniel DO Primary Care Provider Active Yvettejonathan Blair Attending Provider, Referring Provide r Active Leigha Guardado , DARIUSZ-C Other Provider Active Cruise Coordinator Relationship Specialty Start Date End Date Krishna Mcdaniel DO [address] [place], [place] [id number] PCP - General Family Medicine 11/07/18 Cha Bautista RN Specialty Director Talent Oncology 10/21/22 Katey Booker DO [address] [place] [address] Hematology/Oncology 11/15/22 Kristian Mcdaniel [address] [place] [address] Pulmonary Disease 12/30/22 Skyler Louise APRN.ENROUTE CONTROLLER [address] [place] [address] Cardiology 12/30/22 Ar[address]ind [address] MD [address] [facility] 210 [place] [address] Urology 02/23/23 Manfred Lo MD [address] [facility] 206 [place] [address] Gastroenterology 03/21/23 Trina Bernal MD [address] [place] [address] Primary Staff Physician Cardiology 05/02/23 Cruise Coordinator Relationship Specialty Start Date End Date Krishna Mcdaniel DO [address] [place] [address] PCP - General Family Medicine 11/07/18 Cha Bautista, RN Specialty Director Talent Oncology 10/21/22 Katey Booker DO [address] [place] [address] Hematology/Oncology 11/15/22 Kristian Mcdaniel [address] [place] [address] Pulmonary Disease 12/30/22 Skyler Louise APRN.ENROUTE CONTROLLER [address] [facility] 3A [place] [address] Cardiology 12/30/22 [address] [facility] 210 [place] [address] Urology 02/23/23 Manfred Lo MD [address] [facility] 206 [place] [address] Gastroenterology 03/21/23 Trina Bernal MD [address] [place] [address] Primary Staff Physician Cardiology 05/02/23 Cruise Coordinator Relationship Specialty Start Date End Date Krishna Mcdaniel DO [address] [place] [address] PCP - General Family Medicine 11/07/18 Cha Bautista, CHUCHO Specialty Director Talent Oncology 10/21/22 Katey Booker DO [address] [place] [address] Hematology/Oncology 11/15/22 Kristian Mcdaniel [address] [facility] [place] [address] Pulmonary Disease 12/30/22 Skyler Louise APRN.ENROUTE CONTROLLER 1761 [facility] 3A [place] [address] Cardiology 12/30/22 Ar[address]ind [address] MD [address] [facility] 210 [place] [address] Urology 02/23/23 Manfred Lo MD [address] [facility] 206 [place], [place] [address] Gastroenterology 03/21/23 Trina Bernal MD [address] [place] [address] Primary Staff Physician Cardiology 05/02/23 Cruise Coordinator Relationship Specialty Start Date End Date Krishna Mcdaniel DO [address] [place] [address] PCP - General Family Medicine 11/07/18 Cha Bautista, CHUCHO Specialty Director Talent Oncology 10/21/22 Katey Booker DO [address] [place] [address] Hematology/Oncology 11/15/22 Kristian Mcdaniel 1761 [facility] [place] [address] Pulmonary Disease 12/30/22 Skyler Louise APRN.ENROUTE CONTROLLER 1761 [facility] 3A [place] [address] Cardiology 12/30/22 Ar[address]ind [address] MD [address] [facility] 210 [place] [address] Urology 02/23/23 Manfred Lo MD [address] [facility] 206 [place] [address] Gastroenterology 03/21/23 Trina Bernal MD [address] [place] [address] Primary Staff Physician Cardiology 05/02/23 Cruise Coordinator Relationship Specialty Start Date End Date Krishna Mcdaniel DO [address] [place] [address] PCP - General Family Medicine 11/07/18 Cha Bautista, CHUCHO Specialty Director Talent Oncology 10/21/22 Katey Booker DO 7[address] [place] [address] Hematology/Oncology 11/15/22 Kristian Mcdaniel 1761 [facility] [place] [address] Pulmonary Disease 12/30/22 Skyler Louise APRN.ENROUTE CONTROLLER 1761 [facility] 3A [place] [address] Cardiology 12/30/22 Arvind Haynes MD [address] [place] [address] 210 [place] [address] Urology 02/23/23 Manfred Lo MD [address] [facility] 206 [place] [address] Gastroenterology 03/21/23 Trina Bernal MD [address] [place] [address] Primary Staff Physician Cardiology 05/02/23 Cruise Coordinator Relationship Specialty Start Date End Date Krishna Mcdaniel DO [address] [place] [address] PCP - General Family Medicine 11/07/18 Cha Bautista, RN Specialty Director Talent Oncology 10/21/22 Katey Booker DO [address] [place] [address] Hematology/Oncology 11/15/22 rKistian Mcdaniel 1761 [facility] [place] [address] Pulmonary Disease 12/30/22 Skyler Louise APRN.[facility] 1761 [facility] 3A [place] [address] Cardiology 12/30/22 [address] [facility] 210 [place] [address] Urology 02/23/23 Manfred Lo MD [address] [facility] 206 [place] [address] Gastroenterology 03/21/23 Trina Bernal MD [address] [place] [address] Primary Staff Physician Cardiology 05/02/23 Cruise Coordinator Relationship Specialty Start Date End Date Krishna Mcdaniel DO [address] [place] [address] PCP - General Family Medicine 11/07/18 Cha Batuista RN Specialty Director Talent Oncology 10/21/22 Katey Booker DO [address] [place] [address] Hematology/Oncology 11/15/22 Kristian Mcdaniel 1761 [facility] [place] [address] Pulmonary Disease 12/30/22 Skyler Louise APRN.ENROUTE CONTROLLER 1761 [facility] 3A [place] [address] Cardiology 12/30/22 [address] [facility] 210 [place] [address] Urology 02/23/23 Manfred Lo MD [address] [facility] 206 [place] [address] Gastroenterology 03/21/23 Trina Bernal MD 9500 [place] [address] Primary Staff Physician Cardiology 05/02/23 Cruise Coordinator Relationship Specialty Start Date End Date Krishna Mcdaniel DO [address] [place] [address] PCP - General Family Medicine 11/07/18 Cha Bautista, CHUCHO Specialty Director Talent Oncology 10/21/22 Katey Booker DO [address] [place] [address] Hematology/Oncology 11/15/22 Kristian Mcdaniel [address] [place] [address] Pulmonary Disease 12/30/22 Skyler Louise APRN.ENROUTE CONTROLLER [address] [facility] 3A [place] [address] Cardiology 12/30/22 [address] [facility] 210 [place] [address] Urology 02/23/23 Manfred Lo MD [address] [facility] 206 [place] [address] Gastroenterology 03/21/23 Trina Bernal MD [address] [place] [address] Primary Staff Physician Cardiology 05/02/23 Cruise Coordinator Relationship Specialty Start Date End Date Krishna Mcdaniel DO [address] [place] [address] PCP - General Family Medicine 11/07/18 Cha Bautista, CHUCHO Specialty Director Talent Oncology 10/21/22 Katey Booker DO [address] [place] [address] Hematology/Oncology 11/15/22 Kristian Mcdaniel [address] [place] [address] Pulmonary Disease 12/30/22 Skyler Louise APRN.ENROUTE CONTROLLER [address] [facility] 3A [place] [address] Cardiology 12/30/22 Ar[address] MD [address] [facility] 210 [place] [address] Urology 02/23/23 Manfred Lo MD [address] [facility] 206 [place] [address] Gastroenterology 03/21/23 Trina Bernal MD [address] [place], [place] [address] Primary Staff Physician Cardiology 05/02/23 Cruise Coordinator Relationship Specialty Start Date End Date Krishna Mcdaniel DO [address] [place] [address] PCP - General Family Medicine 11/07/18 Cha Bautista, RN Specialty Director Talent Oncology 10/21/22 Katey Booker DO [address] [place] [address] Hematology/Oncology 11/15/22 Kristian Mcdaniel [address] [facility] [place] [address] Pulmonary Disease 12/30/22 Skyler Louise APRN.ENROUTE CONTROLLER [address] [facility] 3A [place] [address] Cardiology 12/30/22 [address] MD [address] [facility] 210 [place] [address] Urology 02/23/23 Manfred Lo MD [address] 206 [place] [address] Gastroenterology 03/21/23 Trina Bernal MD [address] [place] [address] Primary Staff Physician Cardiology 05/02/23 Cruise Coordinator Relationship Specialty Start Date End Date Krishna Mcdaniel DO [address] [place] [address] PCP - General Family Medicine 11/07/18 Cha Bautista RN Specialty Director Talent Oncology 10/21/22 Katey Booker DO [address] [place] [address] Hematology/Oncology 11/15/22 Kristian Mcdaniel 1761 [facility] [place] [address] Pulmonary Disease 12/30/22 Skyler Louise APRN.ENROUTE CONTROLLER [address] [facility] [address] [facility] 3A [place] [address] Cardiology 12/30/22 Arvind Haynes MD 546 [facility] [address] [place], [place] [address] Urology 02/23/23 Manfred Lo MD [address] [place] [address] [place] [address] Gastroenterology 03/21/23 Trina Bernal MD [address] [place], [place] [address] Primary Staff Physician Cardiology 05/02/23 Cruise Coordinator Relationship Specialty Start Date End Date Krishna Mcdaniel DO [address] [place] [address] PCP - General Family Medicine 11/07/18 Cha Bautista, CHUCHO Specialty Director Talent Oncology 10/21/22 Katey Booker DO [address] [place] [address] Hematology/Oncology 11/15/22 Kristian Mcdaniel 1761 [facility] [place] [address] Pulmonary Disease 12/30/22 Skyler Louise APRN.ENROUTE CONTROLLER 1761 [facility] 3A [place] [address] Cardiology 12/30/22 Ar[address] [facility] 210 [place] [address] Urology 02/23/23 Manfred Lo MD [address] [facility] 206 [place] [address] Gastroenterology 03/21/23 Trina Bernal MD [address] [place] [address] Primary Staff Physician Cardiology 05/02/23 Cruise Coordinator Relationship Specialty Start Date End Date Krishna Mcdaniel DO [address] [place] [address] PCP - General Family Medicine 11/07/18 Cha Bautista, RN Specialty Director Talent Oncology 10/21/22 Katey Booker DO [address] [facility] [place] [address] Hematology/Oncology 11/15/22 Kristian Mcdaniel 1761 [facility] [place] [address] Pulmonary Disease 12/30/22 Skyler Louise APRN.[facility] 1761 [facility] 3A [place] [address] Cardiology 12/30/22 Ar[address] MD [address] [facility] 210 [place] [address] Urology 02/23/23 Manfred Lo MD [address] [facility] 206 [place] [address] Gastroenterology 03/21/23 Trina Bernal MD [address] [facility] [place] [address] Primary Staff Physician Cardiology 05/02/23 Cruise Coordinator Relationship Specialty Start Date End Date Krishna Mcdaniel DO [address] [place] [address] PCP - General Family Medicine 11/07/18 Cha Bautista, RN Specialty Director Talent Oncology 10/21/22 Katey Booker DO [address] [place] [address] Hematology/Oncology 11/15/22 Kristian Mcdaniel [address] [facility] [place] [address] Pulmonary Disease 12/30/22 Skyler Louise APRN.[facility] [address] [facility] 3A [place] [address] Cardiology 12/30/22 Ar[address]ind [address] MD [address] [facility] 210 [place] [address] Urology 02/23/23 Manfred Lo MD [address] [facility] 206 [place] [address] Gastroenterology 03/21/23 Trina Bernal MD [address] [place], [place] [address] Primary Staff Physician Cardiology 05/02/23 Cruise Coordinator Relationship Specialty Start Date End Date Krishna Mcdaniel DO [address] [place] [address] PCP - General Family Medicine 11/07/18 Cha Bautista RN Specialty Director Talent Oncology 10/21/22 Katey Booker DO [address] [place] [address] Hematology/Oncology 11/15/22 Kristian Mcdaniel [address] [facility] [place] [address] Pulmonary Disease 12/30/22 Skyler Louise APRN.ENROUTE CONTROLLER [address] [place] [address] [place] [address] Cardiology 12/30/22 Arvind [address] MD [address] [facility] 210 [place] [address] Urology 02/23/23 Manfred Lo MD [address] [place] [address] [place] [address] Gastroenterology 03/21/23 Trina Bernal MD [address] [place], [place] [address] Primary Staff Physician Cardiology 05/02/23 Cruise Coordinator Relationship Specialty Start Date End Date Krishna Mcdaniel DO [address] [place] [address] PCP - General Family Medicine 11/07/18 Cha Bautista, CHUCHO Specialty Director Talent Oncology 10/21/22 Katey Booker DO [address] [place] [address] Hematology/Oncology 11/15/22 Kristian Mcdaniel [address] [place] [address] Pulmonary Disease 12/30/22 Skyler Louise APRN.ENROUTE CONTROLLER [address] [place] [address] [place] [address] Cardiology 12/30/22 Ar[address]ind [address] MD [address] [facility] 210 [place] [address] Urology 02/23/23 Manfred Lo MD [address] [facility] 206 [place] [address] Gastroenterology 03/21/23 Trina Bernal MD [address] [place], [place] [address] Primary Staff Physician Cardiology 05/02/23 Cruise Coordinator Relationship Specialty Start Date End Date Krishna Mcdaniel DO [address] [place] [address] PCP - General Family Medicine 11/07/18 Cha Bautista RN Specialty Director Talent Oncology 10/21/22 Katey Booker DO [address] [place] [address] Hematology/Oncology 11/15/22 Kristian Mcdaniel 1761 [facility] [place] [address] Pulmonary Disease 12/30/22 Skyler Louise, JADYN.ENROUTE CONTROLLER 1761 [facility] [address] [place] [address] Cardiology 12/30/22 Arvind Haynes MD [address] [facility] [address] [place], [place] [id number] Urology 02/23/23 Manfred Lo MD [address] [facility] [address] [place] [address] Gastroenterology 03/21/23 Trina Bernal MD [address] [place] [address] Primary Staff Physician Cardiology 05/02/23 Cruise Coordinator Relationship Specialty Start Date End Date Krishna Mcdaniel DO [address] [place], [place] [id number] PCP - General Family Medicine 11/07/18 Cha Bautista, RN Specialty Director [employer] 10/21/22 Katey Booker DO [address] [place], [place] [address] Hematology/Oncology 11/15/22 Kristian Mcdaniel [address] [facility] [place] [address] Pulmonary Disease 12/30/22 Skyler Louise APRN.ENROUTE CONTROLLER [address] [facility] [address] [place], [place] [address] Cardiology 12/30/22 Arvind Haynes MD [address] [facility] [address] [place], [place] [address] Urology 02/23/23 Manfred Lo MD [address] [facility] [address] [place], [place] [id number] Gastroenterology 03/21/23 Trina Bernal MD [address] [place] [address] Primary Staff Physician Cardiology 05/02/23 Cruise Coordinator Relationship Specialty Start Date End Date Krishna Mcdaniel DO [address] [place] [address] PCP - General Family Medicine 11/07/18 Cha Bautista RN Specialty Director Talent Oncology 10/21/22 Katey Booker DO [address] [place] [address] Hematology/Oncology 11/15/22 Kristian Mcdaniel 1761 [facility] [place] [address] Pulmonary Disease 12/30/22 Skyler Louise APRN.ENROUTE CONTROLLER 1761 [facility] 3A [place] [address] Cardiology 12/30/22 Arvind Haynes MD [address] [facility] 210 [place] [address] Urology 02/23/23 Manfred Lo MD [address] [facility] 206 [place] [address] Gastroenterology 03/21/23 Trina Bernal MD [address] [place] [address] Primary Staff Physician Cardiology 05/02/23 Cruise Coordinator Relationship Specialty Start Date End Date Krishna Mcdaniel DO [address] [place] [address] PCP - General Family Medicine 11/07/18 Cha Bautista RN Specialty Director Talent Oncology 10/21/22 Katey Booker DO [address] [place] [address] Hematology/Oncology 11/15/22 Kristian Mcdaniel [address] [facility] [address] Pulmonary Disease 12/30/22 Skyler Louise APRN.ENROUTE CONTROLLER [address] [place] [address] [place] [address] Cardiology 12/30/22 Arvind Haynes MD [address] [facility] 210 [place] [address] Urology 02/23/23 Manfred Lo MD [address] [facility] 206 [place] [address] Gastroenterology 03/21/23 Trina Bernal MD [address] [place] [address] Primary Staff Physician Cardiology 05/02/23 Cruise Coordinator Relationship Specialty Start Date End Date Krishna Mcdaniel DO [address] [facility] [address] PCP - General Family Medicine 11/07/18 Cha Bautista, RN Specialty Director Talent Oncology 10/21/22 Katey Booker DO [address] [place] [address] Hematology/Oncology 11/15/22 Kristian Mcdaniel 1761 [facility] [place] [address] Pulmonary Disease 12/30/22 Skyler Louise, PEDIATRIC SOCIAL WORKER.ENROUTE CONTROLLER [address] [place] [address] Cardiology 12/30/22 Arvind Haynes MD [address] [facility] 210 [place], [place] [address] Urology 02/23/23 Manfred Lo MD [address] [facility] 206 [place], [place] [address] Gastroenterology 03/21/23 Trina Bernal MD [address] [place], [place] [id number] Primary Staff Physician Cardiology 05/02/23 Cruise Coordinator Relationship Specialty Start Date End Date Krishna Mcdaniel DO [address] [place] [address] PCP - General Family Medicine 11/07/18 Cha Bautista, RN Specialty Director Talent Oncology 10/21/22 Katey Booker DO [address] [place] [address] Hematology/Oncology 11/15/22 Kristian Mcdaniel [address] [facility] [place] [address] Pulmonary Disease 12/30/22 Skyler Louise, JADYN.ENROUTE CONTROLLER [address] [facility] [address] [place] [address] Cardiology 12/30/22 Arvind Hay[address] MD [address] [facility] 210 [place], [place] [address] Urology 02/23/23 Manfred Lo MD [address] [place] [address] [place] [address] Gastroenterology 03/21/23 Trina Bernal MD [address] [place], [place] [address] Primary Staff Physician Cardiology 05/02/23 Cruise Coordinator Relationship Specialty Start Date End Date Krishna Mcdaniel DO [address] [place] [address] PCP - General Family Medicine 11/07/18 Cha Bautista RN Specialty Director Talent Oncology 10/21/22 aKtey Booker DO [address] [place] [address] Hematology/Oncology 11/15/22 Kristian Mcdaniel [address] [place] [address] Pulmonary Disease 12/30/22 Skyler Louise APRN.ENROUTE CONTROLLER [address] [place] [address] [place] [address] Cardiology 12/30/22 Ar[address]ind [address] [facility] [address] [place] [address] Urology 02/23/23 Manfred Lo MD [address] [place] [address] [place] [address] Gastroenterology 03/21/23 Trina Bernal MD [address] [place] [address] Primary Staff Physician Cardiology 05/02/23 Cruise Coordinator Relationship Specialty Start Date End Date Krishna Mcdaniel DO [address] [place] [address] PCP - General Family Medicine 11/07/18 Cha Bautista, CHUCHO Specialty Director Talent Oncology 10/21/22 Katey Booker DO [address] [place] [address] Hematology/Oncology 11/15/22 Kristian Mcdaniel 1761 [facility] [place] [address] Pulmonary Disease 12/30/22 Skyler Louise APRN.ENROUTE CONTROLLER 1761 [facility] 3[address] [place] [address] Cardiology 12/30/22 Arvind Haynes MD [address] [place] [address] 210 [place] [address] Urology 02/23/23 Manfred Lo MD [address] [facility] 206 [place], [place] [address] Gastroenterology 03/21/23 Trina Bernal MD [address] [place] [address] Primary Staff Physician Cardiology 05/02/23 Cruise Coordinator Relationship Specialty Start Date End Date Krishna Mcdaniel DO [address] [place] [address] PCP - General Family Medicine 11/07/18 Cha Bautista, RN Specialty Director Talent Oncology 10/21/22 Katey Booker DO [address] [place] [address] Hematology/Oncology 11/15/22 Kristian Mcdaniel 1761 [facility] [place] [address] Pulmonary Disease 12/30/22 Skyler Louise APRN.ENROUTE CONTROLLER 1761 [facility] 3[address] [place] [address] Cardiology 12/30/22 Ar[address] [facility] 210 [place] [address] Urology 02/23/23 Manfred Lo MD [address] [facility] 206 [place] [address] Gastroenterology 03/21/23 Trina Bernal MD [address] [place] [address] Primary Staff Physician Cardiology 05/02/23 Cruise Coordinator Relationship Specialty Start Date End Date Krishna Mcdaniel DO [address] [place] [address] PCP - General Family Medicine 11/07/18 Doup, Cha, RN Specialty Director Talent Oncology 10/21/22 Katey Booker DO [address] [place] [address] Hematology/Oncology 11/15/22 Kristian Mcdaniel 1761 [facility] [place] [address] Pulmonary Disease 12/30/22 Skyler Louise APRN.ENROUTE CONTROLLER 1761 [facility] [address]A [place] [address] Cardiology 12/30/22 Ar[address] [facility] 210 [place] [address] Urology 02/23/23 Manfred Lo MD [address] [facility] 206 [place] [address] Gastroenterology 03/21/23 Trina Bernal MD [address] [place], [place] [address] Primary Staff Physician Cardiology 05/02/23 Cruise Coordinator Relationship Specialty Start Date End Date Krishna Mcdaniel DO [address] [place] [address] PCP - General Family Medicine 11/07/18 Cha Bautista, CHUCHO Specialty Director Talent Oncology 10/21/22 Katey Booker DO [address] [place] [address] Hematology/Oncology 11/15/22 Kristian Mcdaniel [address] [place] [address] Pulmonary Disease 12/30/22 Skyler Louise APRN.ENROUTE CONTROLLER [address] [facility] 3A [place] [address] Cardiology 12/30/22 [address] [facility] 210 [place] [address] Urology 02/23/23 Manfred Lo MD [address] E [facility] 206 [place] [address] Gastroenterology 03/21/23 Trina Bernal MD [address] [place] [address] Primary Staff Physician Cardiology 05/02/23 Cruise Coordinator Relationship Specialty Start Date End Date Krishna Mcdaniel DO [address] [place] [address] PCP - General Family Medicine 11/07/18 Cha Bautista, RN Specialty Director Talent Oncology 10/21/22 Katey Booker DO [address] [place] [address] Hematology/Oncology 11/15/22 Kristian Mcdaniel [address] [place] [address] Pulmonary Disease 12/30/22 Skyler Louise APRN.ENROUTE CONTROLLER [address] [facility] 3A [place], [place] [address] Cardiology 12/30/22 [address] [facility] 210 [place], [place] [address] Urology 02/23/23 Manfred Lo MD 128 E [facility] 206 [place], [place] [address] Gastroenterology 03/21/23 Trina Bernal MD [address] [place], [place] 3459[address] Primary Staff Physician Cardiology 05/02/23 Cruise Coordinator Relationship Specialty Start Date End Date Krishna Mcdaniel DO [address] [place] [address] PCP - General Family Medicine 11/07/18 Cha Bautista RN Specialty Director Talent Oncology 10/21/22 Katey Booker DO [address] [place] [place], [place] [address] Hematology/Oncology 11/15/22 Kristian Mcdaniel 1761 [facility] [place] [address] Pulmonary Disease 12/30/22 Skyler Louise APRN.ENROUTE CONTROLLER 1761 [facility] 3A [place], [place] [address] Cardiology 12/30/22 Arvind [address] [facility] 210 [place], [place] [address] Urology 02/23/23 Manfred Lo MD [address] 206 [place] [address] Gastroenterology 03/21/23 Trina Bernal MD [address] [place] [address] Primary Staff Physician Cardiology 05/02/23 Cruise Coordinator Relationship Specialty Start Date End Date Krishna Mcdaniel DO [address] [place] [address] PCP - General Family Medicine 11/07/18 Cha Bautista RN Specialty Director Talent Oncology 10/21/22 Katey Booker DO [address] [place] [address] Hematology/Oncology 11/15/22 Kristian Mcdaniel 1761 [facility] [place] [address] Pulmonary Disease 12/30/22 Skyler Louise APRN.ENROUTE CONTROLLER 1761 [facility] 3A [place] [address] Cardiology 12/30/22 Ar[address] [facility] 210 [place] [address] Urology 02/23/23 Manfred Lo MD [address] BOMino [facility] 206 [place] [address] Gastroenterology 03/21/23 Trina Bernal MD [address] [place] [address] Primary Staff Physician Cardiology 05/02/23 Cruise Coordinator Relationship Specialty Start Date End Date Krishna Mcdaniel DO [address] [place] [address] PCP - General Family Medicine 11/07/18 Cha Bautista, RN Specialty Director Talent Oncology 10/21/22 Katey Booker DO [address] [place] [address] Hematology/Oncology 11/15/22 Kristian Mcdaniel 1761 [facility] [place] [address] Pulmonary Disease 12/30/22 Skyler Louise APRN.ENROUTE CONTROLLER 1761 [facility] 3A [place] [address] Cardiology 12/30/22 [address] [facility] 210 [place] [address] Urology 02/23/23 Manfred Lo MD [address] [facility] 206 [place] [address] Gastroenterology 03/21/23 Trina Bernal MD [address] [place] [address] Primary Staff Physician Cardiology 05/02/23 Cruise Coordinator Relationship Specialty Start Date End Date Krishna Mcdaniel DO [address] [place] [address] PCP - General Family Medicine 11/07/18 Cha Bautista, RN Specialty Director Talent Oncology 10/21/22 Katey Booker DO [address] [place] [address] Hematology/Oncology 11/15/22 Kristian Mcdaniel 1761 [facility] [place] [address] Pulmonary Disease 12/30/22 Skyler Louise APRN.ENROUTE CONTROLLER 1761 [facility] 3A [place], [place] [address]30[address] Cardiology 12/30/22 Ar[address] [facility] 210 [place], [place] [address] Urology 02/23/23 Manfred Lo MD [address] H[facility] [facility] 206 [place], [place] [address] Gastroenterology 03/21/23 Trina Bernal MD [address] [place] [address] Primary Staff Physician Cardiology 05/02/23 Cruise Coordinator Relationship Specialty Start Date End Date Krishna Mcdaniel DO [address] [place] [address] PCP - General Family Medicine 11/07/18 Cha Bautista, RN Specialty Director Talent Oncology 10/21/22 Katey Booker DO [address] [place] [address] Hematology/Oncology 11/15/22 Kristian Mcdaniel [address] [place] [address] Pulmonary Disease 12/30/22 Skyler Louise APRN.ENROUTE CONTROLLER [address] [place] [address] Cardiology 12/30/22 [address] [facility] 210 [place], [place] [address] Urology 02/23/23 Manfred Lo MD [address] [place] 206 [place] [address] Gastroenterology 03/21/23 Trina Bernal MD [address] [place] [address] Primary Staff Physician Cardiology 05/02/23 Cruise Coordinator Relationship Specialty Start Date End Date Krishna Mcdaniel DO [address] [place] [address] PCP - General Family Medicine 11/07/18 Cha Bautista, CHUCHO Specialty Director Talent Oncology 10/21/22 Katey Booker DO [address] [place] [address] Hematology/Oncology 11/15/22 Kristian Mcdaniel [address] [place] [address] Pulmonary Disease 12/30/22 Skyler Louise APRN.ENROUTE CONTROLLER [address] [place] [address] Cardiology 12/30/22 [address] [facility] 210 [place] [address] Urology 02/23/23 Manfred Lo MD [address] [facility] 206 [place] [address] Gastroenterology 03/21/23 Trina Bernal MD [address] [place] [address] Primary Staff Physician Cardiology 05/02/23 Cruise Coordinator Relationship Specialty Start Date End Date Krishna Mcdaniel DO [address] [place] [address] PCP - General Family Medicine 11/07/18 Cha Bautista, RN Specialty Director Talent Oncology 10/21/22 Katey Booker DO [address] [place] [address] Hematology/Oncology 11/15/22 Kristian Mcdaniel [address] [facility] [place] [address] Pulmonary Disease 12/30/22 Skyler Louise APRN.ENROUTE CONTROLLER [address] [place] [address] Cardiology 12/30/22 [address] [facility] 210 [place], [place] [address] Urology 02/23/23 Manfred Lo MD [address] [facility] 206 [place], [place] [address] Gastroenterology 03/21/23 Trina Bernal MD [address] [place], [place] [address]24[address] Primary Staff Physician Cardiology 05/02/23 Cruise Coordinator Relationship Specialty Start Date End Date Krishna Mcdaniel DO [address] [place] [address] PCP - General Family Medicine 11/07/18 Cha Bautista RN Specialty Director Talent Oncology 10/21/22 Katey Booker DO [address] [place] [address] Hematology/Oncology 11/15/22 Kristian Mcdaniel 1761 [facility] [place] [address] Pulmonary Disease 12/30/22 Skyler Louise APRN.ENROUTE CONTROLLER 1761 [facility] 3A [place] [address] Cardiology 12/30/22 [address] [facility] 210 [place], [place] [address] Urology 02/23/23 Manfred Lo MD [address] [facility] 206 [place] [address] Gastroenterology 03/21/23 Trina Bernal MD [address] [address] Primary Staff Physician Cardiology 05/02/23 Cruise Coordinator Relationship Specialty Start Date End Date Krishna Mcdaniel DO [address] [place] [address] PCP - General Family Medicine 11/07/18 Cha Bautista RN Specialty Director Talent Oncology 10/21/22 Katey Booker DO [address] [place] [address] Hematology/Oncology 11/15/22 Kristian Mcdaniel 1761 [facility] [place] [address] Pulmonary Disease 12/30/22 Skyler Louise APRN.ENROUTE CONTROLLER [address] [facility] [place] [address] [place] [address] Cardiology 12/30/22 [address] [facility] 210 [place] [address] Urology 02/23/23 Manfred Lo MD [address] [place] [address] [place] [address] Gastroenterology 03/21/23 Trina Bernal MD [address] [place] [address] Primary Staff Physician Cardiology 05/02/23 Cruise Coordinator Relationship Specialty Start Date End Date Krishna Mcdaniel DO [address] [place] [address] PCP - General Family Medicine 11/07/18 Cha Bautista, RN Specialty Director Talent Oncology 10/21/22 Katey Booker DO [address] [place] [address] Hematology/Oncology 11/15/22 Kristian Mcdaniel 1761 [facility] [place] [address] Pulmonary Disease 12/30/22 Skyler Louise APRN.ENROUTE CONTROLLER 176 [facility] 3A [place] [address] Cardiology 12/30/22 Ar[address] [facility] 210 [place] [address] Urology 02/23/23 Manfred Lo MD [address] E [facility] 206 [place] [address] Gastroenterology 03/21/23 Trina Bernal MD 9500 [place] [address] Primary Staff Physician Cardiology 05/02/23 Cruise Coordinator Relationship Specialty Start Date End Date Krishna Mcdaniel DO [address] [place], [place] 305411 PCP - General Family Medicine 11/07/18 Cha Bautista, RN Specialty Director Talent Oncology 10/21/22 Katey Booker DO [address] [place] [address] Hematology/Oncology 11/15/22 Kristian cMdaniel [address] [facility] [place] [address] Pulmonary Disease 12/30/22 Skyler Louise APRN.ENROUTE CONTROLLER [address] [facility] 3A [place] [address] Cardiology 12/30/22 [address] [facility] 210 [place], [place] [address] Urology 02/23/23 Manfred Lo MD [address] [facility] 206 [place] [address] Gastroenterology 03/21/23 Trina Bernal MD [address] [place] [address] Primary Staff Physician Cardiology 05/02/23 Cruise Coordinator Relationship Specialty Start Date End Date Krishna Mcdaniel DO [address] [place] [address] PCP - General Family Medicine 11/07/18 Cha Bautista, RN Specialty Director Talent Oncology 10/21/22 Katey Booker DO [address] [place] [address] Hematology/Oncology 11/15/22 Kristian Mcdaniel [address] [facility] [place] [address] Pulmonary Disease 12/30/22 Skyler Louise APRN.ENROUTE CONTROLLER [address] [place] [address] Cardiology 12/30/22 [address] [facility] 210 [place], [place] [address] Urology 02/23/23 Manfred Lo MD [address] [place], [place] [address] Gastroenterology 03/21/23 Trina Bernal MD [address] [place], [place] 4354[address] Primary Staff Physician Cardiology 05/02/23 Cruise Coordinator Relationship Specialty Start Date End Date Krishna Mcdaniel DO [address] [place] [address] PCP - General Family Medicine 11/07/18 Cha Bautista, CHUCHO Specialty Director Talent Oncology 10/21/22 Katey Booker DO [address] [place] [address] Hematology/Oncology 11/15/22 Kristian Mcdaniel [address] [place] [address] Pulmonary Disease 12/30/22 Skyler Louise APRN.ENROUTE CONTROLLER [address] [address] [place] [address] Cardiology 12/30/22 [address] [facility] 210 [place] [address] Urology 02/23/23 Manfred Lo MD [address] [facility] 206 [place] [address] Gastroenterology 03/21/23 Trina Bernal MD [address] [place], [place] 0724[address] Primary Staff Physician Cardiology 05/02/23 Cruise Coordinator Relationship Specialty Start Date End Date Krishna Mcdaniel DO [address] [place] [address] PCP - General Family Medicine 11/07/18 Cha Bautista RN Specialty Director Talent Oncology 10/21/22 Katey Booker DO [address] [place] [address] Hematology/Oncology 11/15/22 Kristian Mcdaniel 1761 [facility] [place] [address] Pulmonary Disease 12/30/22 Skyler Louise APRN.ENROUTE CONTROLLER 1761 [facility] 3[address] [place] [address] Cardiology 12/30/22 [address] [facility] 210 [place], [place] 6350[address] Urology 02/23/23 Manfred Lo MD [address] [facility] 206 [place] [address] Gastroenterology 03/21/23 Trina Bernal MD [address] [place] [address] Primary Staff Physician Cardiology 05/02/23 Cruise Coordinator Relationship Specialty Start Date End Date Krishna Mcdaniel DO [address] [place], [place] [address]80[address] PCP - General Family Medicine 11/07/18 Cha Bautista, RN Specialty Director Talent Oncology 10/21/22 Katey Booker DO [address] [place] [address] Hematology/Oncology 11/15/22 Kristian Mcdaniel 1761 [facility] [place] [address] Pulmonary Disease 12/30/22 Skyler Louise APRN.ENROUTE CONTROLLER 1761 [facility] 3A [place], [place] [address] Cardiology 12/30/22 [address] [facility] 210 [place], [place] [address] Urology 02/23/23 Manfred Lo MD [address] [facility] 206 [place], [place] [address] Gastroenterology 03/21/23 Trina Bernal MD [address] [place] [address] Primary Staff Physician Cardiology 05/02/23 Cruise Coordinator Relationship Specialty Start Date End Date Krishna Mcdaniel DO [address] [place] [address] PCP - General Family Medicine 11/07/18 Cha Bautista RN Specialty Director Talent Oncology 10/21/22 Katey Booker DO [address] [place] [address] Hematology/Oncology 11/15/22 Kristian Mcdaniel 1761 [facility] [place] [address] Pulmonary Disease 12/30/22 Skyler Louise APRN.[facility] 1761 [facility] 3[address] [place] [address] Cardiology 12/30/22 Ar[address] [facility] 210 [place] [address] Urology 02/23/23 Manfred Lo MD [address] [facility] 206 [place] [address] Gastroenterology 03/21/23 Trina Bernal MD [address] [place] [address] Primary Staff Physician Cardiology 05/02/23 Cruise Coordinator Relationship Specialty Start Date End Date Krishna Mcdaniel DO [address] [place] [address] PCP - General Family Medicine 11/07/18 Doup, Cha, RN Specialty Director Talent Oncology 10/21/22 Katey Booker DO [address] [place] [address] Hematology/Oncology 11/15/22 Kristian Mcdaniel [address] [place] [address] Pulmonary Disease 12/30/22 Skyler Louise APRN.ENROUTE CONTROLLER [address] [place], [place] 6614[address] Cardiology 12/30/22 [address] [facility] 210 [place] [address] Urology 02/23/23 Manfred Lo MD 128 E [facility] 206 [place] [address] Gastroenterology 03/21/23 Trina Bernal MD [address] [place] [address] Primary Staff Physician Cardiology 05/02/23 Cruise Coordinator Relationship Specialty Start Date End Date Krishna Mcdaniel DO [address] [place] [address] PCP - General Family Medicine 11/07/18 Cha Bautista RN Specialty Director Talent Oncology 10/21/22 Katey Booker DO [address] [place] [address] Hematology/Oncology 11/15/22 Kristian Mcdaniel [address] [facility] [place] [address] Pulmonary Disease 12/30/22 Skyler Louise APRN.ENROUTE CONTROLLER [address] [facility] [address] [place] [address] Cardiology 12/30/22 Arvind Haynes MD [address] [place] [address] [address] [place] [address] Urology 02/23/23 Manfred Lo MD [address] [facility] [address] [place] [address] Gastroenterology 03/21/23 Trina Bernal MD [address] [place] [address] Primary Staff Physician Cardiology 05/02/23 Cruise Coordinator Relationship Specialty Start Date End Date Krishna Mcdaniel DO [address] [place] [address] PCP - General Family Medicine 11/07/18 Cha Bautista, RN Specialty Director Talent Oncology 10/21/22 aKtey Booker DO [address] [place] [address] Hematology/Oncology 11/15/22 Kristian Mcdaniel [address] [facility] [place] [address] Pulmonary Disease 12/30/22 Skyler Louise APRN.ENROUTE CONTROLLER [address] [facility] [address] [place] [address] Cardiology 12/30/22 Ar[address] [facility] [address] [place], [place] [id number] Urology 02/23/23 Manfred Lo MD [address] [facility] [address] [place], [place] [address] Gastroenterology 03/21/23 Trina Bernal MD [address] [place], [place] [id number] Primary Staff Physician Cardiology 05/02/23 Cruise Coordinator Relationship Specialty Start Date End Date Krishna Mcdaniel DO [address] [address] [place], [place] [address] PCP - General Family Medicine 11/07/18 Cha Bautista, RN Specialty Director Talent Oncology 10/21/22 Katey Booker DO [address] [place] [address] Hematology/Oncology 11/15/22 Kristian Mcdaniel [address] [facility] [place] [id number] Pulmonary Disease 12/30/22 Skyler Louise APRN.ENROUTE CONTROLLER [address] [facility] [address] [place], [place] [id number] Cardiology 12/30/22 Arvind Haynes MD [address] [place] [address] [address] [place], [place] [id number] Urology 02/23/23 Manfred Lo MD [address] [place], [place] [address] Gastroenterology 03/21/23 Trina Bernal MD [address] [place] [address] Primary Staff Physician Cardiology 05/02/23 Cruise Coordinator Relationship Specialty Start Date End Date Krishna Mcdaniel DO [address] [place], [place] [address] PCP - General Family Medicine 11/07/18 Cha Bautista RN Specialty Director Talent Oncology 10/21/22 Katey Booker DO [address] [place] [address] Hematology/Oncology 11/15/22 Kristian Mcdaniel [address] [place] [address] Pulmonary Disease 12/30/22 Skyler Louise APRN.ENROUTE CONTROLLER [address] [place] [address] Cardiology 12/30/22 Arvind Haynes MD [address] [facility] [address] [place] [address] Urology 02/23/23 Manfred Lo MD [address] [place] [address] Gastroenterology 03/21/23 Trina Bernal MD [address] [place] [address] Primary Staff Physician Cardiology 05/02/23 Cruise Coordinator Relationship Specialty Start Date End Date Krishna Mcdaniel DO [address] [place] [address] PCP - General Family Medicine 11/07/18 Cha Bautista, CHUCHO Specialty Director Talent Oncology 10/21/22 Katey Booker DO [address] [place] [address] Hematology/Oncology 11/15/22 Kristian Mcadniel [address] [facility] [place] [address] Pulmonary Disease 12/30/22 Skyler Louise APRN.ENROUTE CONTROLLER [address] [facility] [address] [place] [address] Cardiology 12/30/22 Ar[address] [facility] 210 [place] [address] Urology 02/23/23 Manfred Lo MD [address] [facility] 206 [place] [address] Gastroenterology 03/21/23 Trina Bernal MD [address] [place] [address] Primary Staff Physician Cardiology 05/02/23 Cruise Coordinator Relationship Specialty Start Date End Date Krishna Mcdaniel DO [address] [place] [address] PCP - General Family Medicine 11/07/18 Cha Bautsita, RN Specialty Director Talent Oncology 10/21/22 Katey Booker DO [address] [place] [address] Hematology/Oncology 11/15/22 Kristian [facility]cdaniel [address] [facility] [place] [address] Pulmonary Disease 12/30/22 Skyler Louise APRN.[facility] [address] [facility] [address] [place] [address] Cardiology 12/30/22 Arvind [address] MD [address] [facility] 210 [place] [address] Urology 02/23/23 Manfred Lo MD [address] [facility] 206 [place], [place] [address] Gastroenterology 03/21/23 Trina Bernal MD [address] [place] [address] Primary Staff Physician Cardiology 05/02/23 Cruise Coordinator Relationship Specialty Start Date End Date Krishna Mcdaniel DO [address] [place], [place] [address] PCP - General Family Medicine 11/07/18 Cha Bautista, RN Specialty Director Talent Oncology 10/21/22 Katey Booker DO [address] [place] [address] Hematology/Oncology 11/15/22 Kristian Mcdaniel [address] [place] [phone] Pulmonary Disease 12/30/22 Skyler Louise APRN.ENROUTE CONTROLLER [address] [facility] [address] [place], [place] [id number] Cardiology 12/30/22 Ar[address]ind [address] MD [address] [facility] [address] [place], [place] [id number] Urology 02/23/23 Manfred Lo MD [address] [facility] 206 [place], [place] [id number] Gastroenterology 03/21/23 Trina Bernal MD [address] [place], [place] [id number] Primary Staff Physician Cardiology 05/02/23 Cruise Coordinator Relationship Specialty Start Date End Date Krishna Mcdaniel DO [address] [place], [place] [id number] PCP - General Family Medicine 11/07/18 Cha Bautista RN Specialty Director Talent Oncology 10/21/22 Katey Booker DO [address] [place], [place] [id number] Hematology/Oncology 11/15/22 Kristian Mcdaniel [address] [place] [phone] Pulmonary Disease 12/30/22 Skyler Louise APRN.ENROUTE CONTROLLER [address] [place] [address] Cardiology 12/30/22 Ar[address] [facility] 210 [place] [address] Urology 02/23/23 Manfred Lo MD [address] [facility] [address] [place] [address] Gastroenterology 03/21/23 Trina Bernal MD [address] [place], [place] [address] Primary Staff Physician Cardiology 05/02/23 Cruise Coordinator Relationship Specialty Start Date End Date Krishna Mcdaniel DO [address] [place] [address] PCP - General Family Medicine 11/07/18 Cha Bautista, CHUCHO Specialty Director Talent Oncology 10/21/22 Katey Booker DO [address] [facility] [address] Hematology/Oncology 11/15/22 Kristian Mcdaniel [address] [place] [address] Pulmonary Disease 12/30/22 Skyler Louise APRN.ENROUTE CONTROLLER [address] [place] [address] Cardiology 12/30/22 Ar[address]ind [address] MD [address] [facility] 210 [place] [address] Urology 02/23/23 Manfred Lo MD [address] [facility] 206 [place] [address] Gastroenterology 03/21/23 Trina Bernal MD [address] [place], [place] [address] Primary Staff Physician Cardiology 05/02/23 Cruise Coordinator Relationship Specialty Start Date End Date Krishna Mcdaniel DO [address] [place] [address] PCP - General Family Medicine 11/07/18 Cha Bautista RN Specialty Director Talent Oncology 10/21/22 Katey Booker DO [address] [place] [address] Hematology/Oncology 11/15/22 Kristian Mcdaniel [address] [facility] [place] [address] Pulmonary Disease 12/30/22 Skyler Louise APRN.ENROUTE CONTROLLER [address] [facility] [address] [place] [address] Cardiology 12/30/22 Ar[address]ind [address] MD [address] [facility] 210 [place], [place] [address] Urology 02/23/23 Manfred Lo MD [address] [facility] 206 [place] [address] Gastroenterology 03/21/23 Trina Bernal MD [address] [place] [id number] Primary Staff Physician Cardiology 05/02/23 Team Status: Active Member Role Status Dates Dr. Krishna Mcdnaiel DO Primary Care Provider Active Team Status: Inactive Member Role Status Dates Dr. Krishna Mcdaniel DO Primary Care Provider Active Start: May 01, 2024 End: May 01, 2024 Jessenia KWON PA Attending Provider Active Start: May 01, 2024 End: May 01, 2024 Jessenia KWON PA Referring Provider Active Start: May 01, 2024 End: May 01, 2024 Team Status: Inactive Member Role Status Dates Dr. Krishna Mcdaniel DO Primary Care Provider Active Start: May 17, 2024 End: May 21, 2024 Dr. Brian Sanchez DO Referring Provider Active Start : May 17, 2024 End: May 21, 2024 Dr. Brian Sanchez DO Emergency Provider Active Start : May 17, 2024 End: May 21, 2024 Dr. Jose Casey MD Admit Provider Active S tart: May 17, 2024 End: May 21, 2024 Dr. Jose Casey MD Other Provider Active S tart: May 17, 2024 End: May 21, 2024 Dr. Baron Dhillon DO Attending Provider Active Start: May 17, 2024 End: May 21, 2024 Dr. Jackie Rose MD Other Provider Active St art: May 17, 2024 End: May 21, 2024 Team Status: Active Member Role Status Dates Dr. Krishna Mcdaniel DO Primary Care Provider Active Start: May 17, 2024 Dr. Brian Sanchez DO Emergency Provider Active Start : May 17, 2024 Dr. Jose Casey MD Admit Provider Active S tart: May 17, 2024 Dr. Jose Casey MD Attending Provider Active Start: May 17, 2024 Dr. Jose Casey MD Other Provider Active S tart: May 17, 2024 Team Status: Active Member Role Status Dates Dr. Krishna Mcdaniel DO Primary Care Provider Active Start: May 18, 2024 Dr. Isaiah Nicholson MD Attending Provider Activ e Start: May 18, 2024 Team Status: Active Member Role Status Dates Dr. Krishna Mcdaniel DO Primary Care Provider Active Start: May 18, 2024 Dr. Brian Sanchez , DO Emergency Provider Active Start : May 18, 2024 Dr. Jose Casey MD Admit Provider Active S tart: May 18, 2024 Dr. Jose Casey MD Other Provider Active S tart: May 18, 2024 Dr. Jackie Rose MD Attending Provider Active Start: May 18, 2024 Dr. Jackie Rose MD Other Provider Active St art: May 18, 2024 Team Status: Active Member Role Status Dates Dr. Krishna Mcdaniel DO Primary Care Provider Active Start: May 19, 2024 Dr. Brian Sanchez DO Emergency Provider Active Start : May 19, 2024 Dr. Jose Casey MD Admit Provider Active S tart: May 19, 2024 Dr. Jose Casey MD Other Provider Active S tart: May 19, 2024 Dr. Jackie Rose MD Attending Provider Active Start: May 19, 2024 Dr. Jackie Rose MD Other Provider Active St art: May 19, 2024 Team Status: Active Member Role Status Dates Dr. Krishna Mcdaniel DO Primary Care Provider Active Start: May 20, 2024 Dr. Brian Sanchez DO Emergency Provider Active Start : May 20, 2024 Dr. Jose Casey MD Admit Provider Active S tart: May 20, 2024 Dr. Jose Casey MD Other Provider Active S tart: May 20, 2024 Dr. Jackie Rose MD Attending Provider Active Start: May 20, 2024 Dr. Jackie Rose MD Other Provider Active St art: May 20, 2024 Team Status: Active Member Role Status Dates Dr. Krishna Mcdaniel DO Primary Care Provider Active Start: May 21, 2024 Dr. Brian Sanchez DO Emergency Provider Active Start : May 21, 2024 Dr. Jose Casey MD Admit Provider Active S tart: May 21, 2024 Dr. Jose Casey MD Other Provider Active S tart: May 21, 2024 Dr. Baron Dhillon DO Attending Provider Active Start: May 21, 2024 Dr. Baron Dhillon DO Other Provider Active S tart: May 21, 2024 Dr. Jackie Rose MD Other Provider Active St art: May 21, 2024 Team Status: Inactive Member Role Status Dates Dr. Krishna Mcdaniel DO Primary Care Provider Active Start: May 28, 2024 End: May 28, 2024 Dr. Janes Oconnor MD Attending Provider Active Start: May 28, 2024 End: May 28, 2024 Dr. Janes Oconnor MD Referring Provider Active Start: May 28, 2024 End: May 28, 2024 Team Status: Inactive Member Role Status Dates Dr. Krishna Mcdaniel DO Primary Care Provider Active Start: June 01, 2024 End: June 01, 2024 Dr. Krishna Mcdaniel DO Referring Provider Active Start: June 01, 2024 End: June 01, 2024 Liliana KWON, PA Attending Provider Active Start: June 01, 2024 End: June 01, 2024 Team Status: Inactive Member Role Status Dates Dr. Krishna Mcdaniel DO Primary Care Provider Active Start: June 07, 2024 End: June 07, 2024 Dr. Krishna Mcdaniel DO Referring Provider Active Start: June 07, 2024 End: June 07, 2024 Tessy Trinh EDUCATIONAL PARAPROFESSIONAL, EDUCATIONAL PARAPROFESSIONAL-C Attending Provider Active Start: June 07, 2024 End: June 07, 2024 Team Status: Inactive Member Role Status Dates Dr. Krishna Mcdaniel DO Primary Care Provider Active Start: June 13, 2024 End: June 13, 2024 Dr. Krishna Mcdaniel DO Referring Provider Active Start: June 13, 2024 End: June 13, 2024 Joaquin KWON PA Attending Provider Active St art: June 13, 2024 End: June 13, 2024 Team Status: Inactive Member Role Status Dates Dr. Krishna Mcdaniel DO Primary Care Provider Active Start: June 20, 2024 End: June 20, 2024 Liliana Han PA, PA Attending Provider Active Start: June 20, 2024 End: June 20, 2024 Liliana KWON, PA Referring Provider Active Start: June 20, 2024 End: June 20, 2024 Team Status: Active Member Role Status Dates Dr. Krishna Mcdaniel DO Primary Care Provider Active Start: June 20, 2024 Dr. Blair Maza MD Attending Provider Active Start: June 20, 2024 Liliana KWON, PA Referring Provider Active Start: June 20, 2024 Team Status: Inactive Member Role Status Dates Dr. Krishna Mcdaniel DO Primary Care Provider Active Start: June 25, 2024 End: June 25, 2024 Tessy Trinh EDUCATIONAL PARAPROFESSIONAL, EDUCATIONAL PARAPROFESSIONAL-C Attending Provider Active Start: June 25, 2024 End: June 25, 2024 Team Status: Active Member Role Status Dates Dr. Krishna Mcdaniel DO Primary Care Provider Active Start: July 03, 2024 Dr. Katey Booker DO Attending Provider Active St art: July 03, 2024 Dr. Katey Booker DO Referring Provider Active St art: July 03, 2024 Team Status: Active Member Role Status Dates Dr. Krishna Mcdaniel DO Primary Care Provider Active Start: July 06, 2024 Tessy Trinh EDUCATIONAL PARAPROFESSIONAL, EDUCATIONAL PARAPROFESSIONAL-C Attending Provider Active Start: July 06, 2024 Tessy Trinh EDUCATIONAL PARAPROFESSIONAL, EDUCATIONAL PARAPROFESSIONAL-C Referring Provider Active Start: July 06, 2024 Team Status: Inactive Member Role Status Dates Dr. Krishna Mcdaniel DO Primary Care Provider Active Start: July 03, 2024 End: July 03, 2024 Dr. Katey Booker , Attending Provider Active St art: July 03, 2024 End: July 03, 2024 Dr. Katey Booker DO Referring Provider Active St art: July 03, 2024 End: July 03, 2024 Team Status: Inactive Member Role Status Dates Dr. Krishna Mcdaniel DO Primary Care Provider Active Start: July 06, 2024 End: July 06, 2024 Tessy Trinh EDUCATIONAL PARAPROFESSIONAL, EDUCATIONAL PARAPROFESSIONAL-C Attending Provider Active Start: July 06, 2024 End: July 06, 2024 Tessy Trinh EDUCATIONAL PARAPROFESSIONAL, EDUCATIONAL PARAPROFESSIONAL-C Referring Provider Active Start: July 06, 2024 End: July 06, 2024 Team Status: Inactive Member Role Status Dates Dr. Krishna Mcdaniel DO Primary Care Provider Active Start: July 18, 2024 End: July 18, 2024 Dr. Krishna Mcdaniel DO Attending Provider Active Start: July 18, 2024 End: July 18, 2024 Dr. Krishna Mcdaniel DO Referring Provider Active Start: July 18, 2024 End: July 18, 2024 Team Status: Inactive Member Role Status Dates Dr. Krishna Mcdaniel DO Primary Care Provider Active Start: July 27, 2024 End: July 27, 2024 CHER Colon Attending Provider Active Start: July 27, 2024 End: July 27, 2024 CHER Colon Referring Provider Active Start: July 27, 2024 End: July 27, 2024 Team Status: Active Member Role Status Dates Dr. Krishna Mcdaniel DO Primary Care Provider Active Start: August 01, 2024 Dr. George Jackson MD Emergency Provider Active S tart: August 01, 2024 Team Status: Active Member Role Status Dates Dr. Krishna Mcdaniel DO Primary Care Provider Active Start: August 01, 2024 Dr. George Jackson MD Emergency Provider Active S tart: August 01, 2024 Dr. Janes Pennington MD Admit Provider Active Start: August 01, 2024 Dr. Janes Pennington MD Attending Provider Active Start: August 01, 2024 Team Status: Active Member Role Status Dates Dr. Krishna Mcdaniel DO Primary Care Provider Active Start: August 01, 2024 Dr. George Jackson MD Emergency Provider Active S tart: August 01, 2024 Dr. Janes Pennington MD Admit Provider Active Start: August 01, 2024 Dr. Janes Pennington MD Attending Provider Active Start: August 01, 2024 Dr. Janes Pennington MD Other Provider Active Start: August 01, 2024 Team Status: Inactive Member Role Status Dates Dr. Krishna Mcdaniel DO Primary Care Provider Active Start: August 01, 2024 End: August 03, 2024 Dr. George Jackson MD Emergency Provider Active S tart: August 01, 2024 End: August 03, 2024 Dr. Janes Pennington MD Admit Provider Active Start: August 01, 2024 End: August 03, 2024 Dr. Janes Pennington MD Other Provider Active Start: August 01, 2024 End: August 03, 2024 Dr. Fernanda Staples , Attending Provider Active S tart: August 01, 2024 End: August 03, 2024 Team Status: Active Member Role Status Dates Dr. Krishna Mcdaniel DO Primary Care Provider Active Start: August 02, 2024 Dr. George Jackson MD Emergency Provider Active S tart: August 02, 2024 Dr. Janes Pennington MD Admit Provider Active Start: August 02, 2024 Dr. Janes Pennington MD Other Provider Active Start: August 02, 2024 Dr. Fernanda Staples DO Attending Provider Active S tart: August 02, 2024 Dr. Fernanda Staples DO Other Provider Active Start : August 02, 2024 Team Status: Active Member Role Status Dates Dr. Krishna Mcdaniel DO Primary Care Provider Active Start: August 03, 2024 Dr. George Jackson MD Emergency Provider Active S tart: August 03, 2024 Dr. Janes Pennington MD Admit Provider Active Start: August 03, 2024 Dr. Janes Pennington MD Other Provider Active Start: August 03, 2024 Dr. Fernanda Staples DO Attending Provider Active S tart: August 03, 2024 Dr. Fernanda Staples DO Other Provider Active Start : August 03, 2024 Team Status: Inactive Member Role Status Dates Dr. Krishna Mcdaniel DO Primary Care Provider Active Start: August 14, 2024 End: August 14, 2024 Dr. Krishna Mcdaniel DO Attending Provider Active Start: August 14, 2024 End: August 14, 2024 Dr. Krishna Mcdaniel DO Referring Provider Active Start: August 14, 2024 End: August 14, 2024 Team Status: Inactive Member Role Status Dates Dr. Krishna Mcdaniel DO Primary Care Provider Active Start: September 04, 2024 End: September 04, 2024 Dr. Krishna Mcdaniel DO Referring Provider Active Start: September 04, 2024 End: September 04, 2024 Tessy Trinh EDUCATIONAL PARAPROFESSIONAL, EDUCATIONAL PARAPROFESSIONAL-C Attending Provider Active Start: September 04, 2024 End: September 04, 2024 Team Status: Inactive Member Role Status Dates Dr. Krishna Mcdaniel DO Primary Care Provider Active Start: September 04, 2024 End: September 04, 2024 Tessy Trinh EDUCATIONAL PARAPROFESSIONAL, EDUCATIONAL PARAPROFESSIONAL-C Attending Provider Active Start: September 04, 2024 End: September 04, 2024 Tessy Trinh EDUCATIONAL PARAPROFESSIONAL, EDUCATIONAL PARAPROFESSIONAL-C Referring Provider Active Start: September 04, 2024 End: September 04, 2024 Team Status: Inactive Member Role Status Dates Dr. Krishna Mcdaniel DO Primary Care Provider Active Start: September 18, 2024 End: September 18, 2024 CHER Ramirez Attending Provider Active St art: September 18, 2024 End: September 18, 2024 CHER Ramirez Referring Provider Active St art: September 18, 2024 End: September 18, 2024 Team Status: Inactive Member Role Status Dates Dr. Krishna Mcdaniel DO Primary Care Provider Active Start: September 21, 2024 End: September 21, 2024 Dr. Krishna Mcdaniel DO Referring Provider Active Start: September 21, 2024 End: September 21, 2024 CHER Ramirez Attending Provider Active St art: September 21, 2024 End: September 21, 2024 Cruise Coordinator Relationship Specialty Start Date End Date Krishna Mcdaniel DO [address] [place], [place] [id number] PCP - General Family Medicine 11/07/18 Cha Bautista RN Specialty Director Talent Oncology 10/21/22 Katey Booker DO [address] [place], [place] [address] Hematology/Oncology 11/15/22 Kristian Mcdaniel [address] [place] [phone] Pulmonary Disease 12/30/22 Skyler Louise APRN.ENROUTE CONTROLLER [address] [place], [place] [id number] Cardiology 12/30/22 Arvind [address] [facility] 210 [place], [place] [address] Urology 02/23/23 Manfred Lo MD [address] [facility] 206 [place] [address] Gastroenterology 03/21/23 Trina Bernal MD [address] [place], [place] [address] Primary Staff Physician Cardiology 05/02/23 Cruise Coordinator Relationship Specialty Start Date End Date Krishna Mcdaniel DO [address] [place] [address] PCP - General Family Medicine 11/07/18 Cha Bautista, CHUCHO Specialty Director Talent Oncology 10/21/22 Katey Booker DO [address] [place] [address] Hematology/Oncology 11/15/22 Kristian Mcdaniel [address] [facility] [place] [phone] Pulmonary Disease 12/30/22 Skyler Louise APRN.ENROUTE CONTROLLER [address] [facility] [address] [place] [address] Cardiology 12/30/22 Ar[address] [facility] 210 [place], [place] [address] Urology 02/23/23 Manfred Lo MD [address] [place] [address] Gastroenterology 03/21/23 Trina Bernal MD [address] [place] [address] Primary Staff Physician Cardiology 05/02/23 Cruise Coordinator Relationship Specialty Start Date End Date Krishna Mcdaniel DO [address] [place] [address] PCP - General Family Medicine 11/07/18 Cha Bautista RN Specialty Director Talent Oncology 10/21/22 Katey Booker DO [address] [place] [address] Hematology/Oncology 11/15/22 Kristian Mcdaniel [address] [facility] [place] [address] Pulmonary Disease 12/30/22 Skyler Louise APRN.ENROUTE CONTROLLER [address] [facility] [address] [place] [address] Cardiology 12/30/22 Arvind Haynes MD [address] [facility] [address] [place] [address] Urology 02/23/23 Manfred Lo MD [address] [facility] 206 [place] [address] Gastroenterology 03/21/23 Trina Bernal MD [address] [place] [address] Primary Staff Physician Cardiology 05/02/23 Cruise Coordinator Relationship Specialty Start Date End Date Krishna Mcdaniel DO [address] [place] [address] PCP - General Family Medicine 11/07/18 Cha Bautista, CHUCHO Specialty Director Talent Oncology 10/21/22 Katey Booker DO [address] [place] [address] Hematology/Oncology 11/15/22 Kristian Mcdaniel [address] [facility] [place] [address] Pulmonary Disease 12/30/22 Skyler Louise APRN.ENROUTE CONTROLLER [address] [facility] [address] [place] [address] Cardiology 12/30/22 Ar[address]ind [address] MD [address] [facility] 210 [place] [address] Urology 02/23/23 Manfred Lo MD [address] [facility] [address] [place] [address] Gastroenterology 03/21/23 Trina Bernal MD [address] [place] [address] Primary Staff Physician Cardiology 05/02/23 Cruise Coordinator Relationship Specialty Start Date End Date Krishna Mcdaniel DO [address] [place] [address] PCP - General Family Medicine 11/07/18 Cha Bautista, RN Specialty Director Talent Oncology 10/21/22 Katey Booker DO [address] [place] [address] Hematology/Oncology 11/15/22 Kristian Mcdaniel [address] [facility] [place] [address] Pulmonary Disease 12/30/22 Skyler Louise APRN.[facility] 1761 [facility] [address]DY [facility] [address] [place] [address] Cardiology 12/30/22 Arvind [address] MD [address] [facility] 210 [place] [address] Urology 02/23/23 Manfred Lo MD [address] [facility] 206 [place], [place] [address] Gastroenterology 03/21/23 Trina Bernal MD [address] [place] [address] Primary Staff Physician Cardiology 05/02/23 Team Status: Active Member Role Status Dates Dr. Krishna Mcdaniel DO Primary Care Provider Active Start: October 01, 2024 CHER Ramirez Attending Provider Active St art: October 01, 2024 CHER Ramirez Referring Provider Active St art: October 01, 2024 Team Status: Inactive Member Role Status Dates Dr. Krishna Mcdaniel DO Primary Care Provider Active Start: October 04, 2024 End: October 04, 2024 CHER Ramirez Attending Provider Active St art: October 04, 2024 End: October 04, 2024 CHER Ramirez Referring Provider Active art: October 04, 2024 End: October 04, 2024 Cruise Coordinator Relationship Specialty Start Date End Date Krishna Mcdaniel DO [address] [place] [address] PCP - General Family Medicine 11/07/18 Cha Bautista RN Specialty Director Talent Oncology 10/21/22 Katey Booker DO [address] [facility] [place] [address] Hematology/Oncology 11/15/22 Kristian Mcdaniel [address] [facility] [place] [address] Pulmonary Disease 12/30/22 Skyler Louise APRN.ENROUTE CONTROLLER 1761 [facility] [address] [place] [address] Cardiology 12/30/22 [address]ind [address] MD [address] [facility] 210 [place] [address] Urology 02/23/23 Manfred Lo MD [address] [facility] 206 [place] [address] Gastroenterology 03/21/23 Trina Bernal MD [address] [place], [place] [address] Primary Staff Physician Cardiology 05/02/23 Team Status: Active Member Role/Relationship Status Dates Dr. Krishna Mcdaniel DO Primary Care Provider Active Team Status: Inactive Member Role/Relationship Status Dates Dr. Krishna Mcdaniel DO Primary Care Provider Active Start: June 25, 2024 End: June 25, 2024 Tessy Trinh EDUCATIONAL PARAPROFESSIONAL, EDUCATIONAL PARAPROFESSIONAL-C Attending Provider Active Start: June 25, 2024 End: June 25, 2024 Team Status: Inactive Member Role/Relationship Status Dates Dr. Krishna Mcdaniel DO Primary Care Provider Active Start: July 03, 2024 End: July 03, 2024 Dr. Katey Booker , Attending Provider Active St art: July 03, 2024 End: July 03, 2024 Dr. Katey Booker , Referring Provider Active St art: July 03, 2024 End: July 03, 2024 Team Status: Inactive Member Role/Relationship Status Dates Dr. Krishna Mcdaniel DO Primary Care Provider Active Start: July 06, 2024 End: July 06, 2024 Tessy Trinh EDUCATIONAL PARAPROFESSIONAL, EDUCATIONAL PARAPROFESSIONAL-C Attending Provider Active Start: July 06, 2024 End: July 06, 2024 Tessy Trinh EDUCATIONAL PARAPROFESSIONAL, EDUCATIONAL PARAPROFESSIONAL-C Referring Provider Active Start: July 06, 2024 End: July 06, 2024 Team Status: Active Member Role/Relationship Status Dates Dr. Krishna Mcdaniel DO Primary Care Provider Active Start: July 06, 2024 Dr. Kristian Mcdaniel DO Attending Provider Active S tart: July 06, 2024 Tessy Trinh EDUCATIONAL PARAPROFESSIONAL, EDUCATIONAL PARAPROFESSIONAL-C Referring Provider Active Start: July 06, 2024 Team Status: Inactive Member Role/Relationship Status Dates Dr. Krishna Mcdaniel DO Primary Care Provider Active Start: July 18, 2024 End: July 18, 2024 Dr. Krishna Mcdaniel DO Attending Provider Active Start: July 18, 2024 End: July 18, 2024 Dr. Krishna Mcdaniel DO Referring Provider Active Start: July 18, 2024 End: July 18, 2024 Team Status: Inactive Member Role/Relationship Status Dates Dr. Krishna Mcdaniel DO Primary Care Provider Active Start: July 27, 2024 End: July 27, 2024 Jessenia Yoder PA, PA Attending Provider Active Start: July 27, 2024 End: July 27, 2024 Jessenia KWON, PA Referring Provider Active Start: July 27, 2024 End: July 27, 2024 Team Status: Inactive Member Role/Relationship Status Dates Dr. Krishna Mcdaniel DO Primary Care Provider Active Start: August 01, 2024 End: August 03, 2024 Dr. George Jackson MD Emergency Provider Active S tart: August 01, 2024 End: August 03, 2024 Dr. Janes Pennington MD Admit Provider Active Start: August 01, 2024 End: August 03, 2024 Dr. Janes Pennington MD Other Provider Active Start: August 01, 2024 End: August 03, 2024 Dr. Fernanda Staples DO Attending Provider Active S tart: August 01, 2024 End: August 03, 2024 Team Status: Active Member Role/Relationship Status Dates Dr. Krishna Mcdaniel DO Primary Care Provider Active Start: August 01, 2024 Dr. George Jackson MD Emergency Provider Active S tart: August 01, 2024 Dr. Janes Pennington MD Admit Provider Active Start: August 01, 2024 Dr. Janes Pennington MD Attending Provider Active Start: August 01, 2024 Dr. Janes Pennington MD Other Provider Active Start: August 01, 2024 Team Status: Active Member Role/Relationship Status Dates Dr. Krishna Mcdaniel DO Primary Care Provider Active Start: August 02, 2024 Dr. George Jackson MD Emergency Provider Active S tart: August 02, 2024 Dr. Janes Pennington MD Admit Provider Active Start: August 02, 2024 Dr. Janes Pennington MD Other Provider Active Start: August 02, 2024 Dr. Fernanda Staples DO Attending Provider Active S tart: August 02, 2024 Dr. Fernanda Staples DO Other Provider Active Start : August 02, 2024 Team Status: Active Member Role/Relationship Status Dates Dr. Krishna Mcdaniel DO Primary Care Provider Active Start: August 03, 2024 Dr. George Jackson MD Emergency Provider Active S tart: August 03, 2024 Dr. Janes Pennington MD Admit Provider Active Start: August 03, 2024 Dr. Janes Pennington MD Other Provider Active Start: August 03, 2024 Dr. Fernanda Staples DO Attending Provider Active S tart: August 03, 2024 Dr. Fernanda Staples DO Other Provider Active Start : August 03, 2024 Team Status: Inactive Member Role/Relationship Status Dates Dr. Krishna Mcdaniel DO Primary Care Provider Active Start: August 14, 2024 End: August 14, 2024 Dr. Krishna Mcdaniel DO Attending Provider Active Start: August 14, 2024 End: August 14, 2024 Dr. Krishna Mcdaniel DO Referring Provider Active Start: August 14, 2024 End: August 14, 2024 Team Status: Inactive Member Role/Relationship Status Dates Dr. Krihsna Mcdaniel DO Primary Care Provider Active Start: August 14, 2024 End: August 14, 2024 Dr. Krishna Mcdaniel DO Attending Provider Active Start: August 14, 2024 End: August 14, 2024 Dr. Krishna Mcdaniel DO Referring Provider Active Start: August 14, 2024 End: August 14, 2024 Team Status: Inactive Member Role/Relationship Status Dates Dr. Krishna Mcdaniel DO Primary Care Provider Active Start: September 04, 2024 End: September 04, 2024 Dr. Krishna Mcdaniel DO Referring Provider Active Start: September 04, 2024 End: September 04, 2024 Tessy Trinh EDUCATIONAL PARAPROFESSIONAL, EDUCATIONAL PARAPROFESSIONAL-C Attending Provider Active Start: September 04, 2024 End: September 04, 2024 Team Status: Inactive Member Role/Relationship Status Dates Dr. Krishna Mcdaniel DO Primary Care Provider Active Start: September 04, 2024 End: September 04, 2024 Tessy Trinh EDUCATIONAL PARAPROFESSIONAL, EDUCATIONAL PARAPROFESSIONAL-C Attending Provider Active Start: September 04, 2024 End: September 04, 2024 Tessy Trinh EDUCATIONAL PARAPROFESSIONAL, EDUCATIONAL PARAPROFESSIONAL-C Referring Provider Active Start: September 04, 2024 End: September 04, 2024 Team Status: Inactive Member Role/Relationship Status Dates Dr. Krishna Mcdaniel DO Primary Care Provider Active Start: September 18, 2024 End: September 18, 2024 CHER Ramirez Attending Provider Active St art: September 18, 2024 End: September 18, 2024 CHER Ramirez Referring Provider Active St art: September 18, 2024 End: September 18, 2024 Team Status: Inactive Member Role/Relationship Status Dates Dr. Krishna Mcdaniel DO Primary Care Provider Active Start: September 21, 2024 End: September 21, 2024 Dr. Krishna Mcdaniel DO Referring Provider Active Start: September 21, 2024 End: September 21, 2024 CHER Ramirez Attending Provider Active St art: September 21, 2024 End: September 21, 2024 Team Status: Active Member Role/Relationship Status Dates Dr. Krishna Mcdaniel DO Primary Care Provider Active Start: October 01, 2024 CHER Ramirez Attending Provider Active St art: October 01, 2024 CHER Ramirez Referring Provider Active St art: October 01, 2024 Team Status: Inactive Member Role/Relationship Status Dates Dr. Krishna Mcdaniel DO Primary Care Provider Active Start: October 04, 2024 End: October 04, 2024 CHER Ramirez Attending Provider Active St art: October 04, 2024 End: October 04, 2024 CHER Ramirez Referring Provider Active St art: October 04, 2024 End: October 04, 2024 Team Status: Inactive Member Role/Relationship Status Dates Dr. Krishna Mcdaniel DO Primary Care Provider Active Start: October 22, 2024 End: October 22, 2024 Dr. Krishna Mcdaniel DO Referring Provider Active Start: October 22, 2024 End: October 22, 2024 CHER Ramirez Attending Provider Active St art: October 22, 2024 End: October 22, 2024 Team Status: Inactive Member Role/Relationship Status Dates Dr. Krishna Mcdaniel DO Primary Care Provider Active Start: July 03, 2024 End: July 03, 2024 Dr. Katey Bokoer DO Attending Provider Active St art: July 03, 2024 End: July 03, 2024 Dr. Katey Booker DO Referring Provider Active St art: July 03, 2024 End: July 03, 2024 Team Status: Inactive Member Role/Relationship Status Dates Dr. Krishna Mcdaniel DO Primary Care Provider Active Start: July 06, 2024 End: July 06, 2024 Tessy Trinh EDUCATIONAL PARAPROFESSIONAL, EDUCATIONAL PARAPROFESSIONAL-C Attending Provider Active Start: July 06, 2024 End: July 06, 2024 Tessy Trinh EDUCATIONAL PARAPROFESSIONAL, EDUCATIONAL PARAPROFESSIONAL-C Referring Provider Active Start: July 06, 2024 End: July 06, 2024 Team Status: Active Member Role/Relationship Status Dates Dr. Krishna Mcdaniel DO Primary Care Provider Active Start: July 06, 2024 Dr. Kristian Mcdaniel DO Attending Provider Active S tart: July 06, 2024 Tessy Trinh EDUCATIONAL PARAPROFESSIONAL, EDUCATIONAL PARAPROFESSIONAL-C Referring Provider Active Start: July 06, 2024 Team Status: Inactive Member Role/Relationship Status Dates Dr. Krishna Mcdaniel DO Primary Care Provider Active Start: July 18, 2024 End: July 18, 2024 Dr. Krishna Mcdaniel DO Attending Provider Active Start: July 18, 2024 End: July 18, 2024 Dr. Krishna Mcdaniel DO Referring Provider Active Start: July 18, 2024 End: July 18, 2024 Team Status: Inactive Member Role/Relationship Status Dates Dr. Krishna Mcdaniel DO Primary Care Provider Active Start: July 27, 2024 End: July 27, 2024 Paresh PA PA Attending Provider Active Start: July 27, 2024 End: July 27, 2024 Paresh PA PA Referring Provider Active Start: July 27, 2024 End: July 27, 2024 Team Status: Inactive Member Role/Relationship Status Dates Dr. Krishna Mcdaniel DO Primary Care Provider Active Start: August 01, 2024 End: August 03, 2024 Dr. George Jackson MD Emergency Provider Active S tart: August 01, 2024 End: August 03, 2024 Dr. Janes Pennington MD Admit Provider Active Start: August 01, 2024 End: August 03, 2024 Dr. Janes Pennington MD Other Provider Active Start: August 01, 2024 End: August 03, 2024 Dr. Fernanda Staples DO Attending Provider Active S tart: August 01, 2024 End: August 03, 2024 Team Status: Active Member Role/Relationship Status Dates Dr. Krishna Mcdaniel DO Primary Care Provider Active Start: August 01, 2024 Dr. George Jackson MD Emergency Provider Active S tart: August 01, 2024 Dr. Janes Pennington MD Admit Provider Active Start: August 01, 2024 Dr. Janes Pennington MD Attending Provider Active Start: August 01, 2024 Dr. Janes Pennington MD Other Provider Active Start: August 01, 2024 Team Status: Active Member Role/Relationship Status Dates Dr. Krishna Mcdaniel DO Primary Care Provider Active Start: August 02, 2024 Dr. George Jackson MD Emergency Provider Active S tart: August 02, 2024 Dr. Janes Pennington MD Admit Provider Active Start: August 02, 2024 Dr. Janes Pennington MD Other Provider Active Start: August 02, 2024 Dr. Fernanda Staples DO Attending Provider Active S tart: August 02, 2024 Dr. Fernanda Staples DO Other Provider Active Start : August 02, 2024 Team Status: Active Member Role/Relationship Status Dates Dr. Krishna Mcdaniel DO Primary Care Provider Active Start: August 03, 2024 Dr. George Jackson MD Emergency Provider Active S tart: August 03, 2024 Dr. Janes Pennington MD Admit Provider Active Start: August 03, 2024 Dr. Janes Pennington MD Other Provider Active Start: August 03, 2024 Dr. Fernanda Staples DO Attending Provider Active S tart: August 03, 2024 Dr. Fernanda Staples DO Other Provider Active Start : August 03, 2024 Team Status: Inactive Member Role/Relationship Status Dates Dr. Krishna Mcdaniel DO Primary Care Provider Active Start: August 14, 2024 End: August 14, 2024 Dr. Krishna Mcdaniel DO Attending Provider Active Start: August 14, 2024 End: August 14, 2024 Dr. Krishna Mcdaniel DO Referring Provider Active Start: August 14, 2024 End: August 14, 2024 Team Status: Inactive Member Role/Relationship Status Dates Dr. Krishna Mcdaniel DO Primary Care Provider Active Start: September 04, 2024 End: September 04, 2024 Dr. Krishna Mcdaniel DO Referring Provider Active Start: September 04, 2024 End: September 04, 2024 Tessy Trinh EDUCATIONAL PARAPROFESSIONAL, EDUCATIONAL PARAPROFESSIONAL-C Attending Provider Active Start: September 04, 2024 End: September 04, 2024 Team Status: Inactive Member Role/Relationship Status Dates Dr. Krishna Mcdaniel DO Primary Care Provider Active Start: September 04, 2024 End: September 04, 2024 Tessy Trinh EDUCATIONAL PARAPROFESSIONAL, EDUCATIONAL PARAPROFESSIONAL-C Attending Provider Active Start: September 04, 2024 End: September 04, 2024 Tsesy Trinh EDUCATIONAL PARAPROFESSIONAL, EDUCATIONAL PARAPROFESSIONAL-C Referring Provider Active Start: September 04, 2024 End: September 04, 2024 Team Status: Inactive Member Role/Relationship Status Dates Dr. Krishna Mcdaniel DO Primary Care Provider Active Start: September 18, 2024 End: September 18, 2024 CHER Ramirez Attending Provider Active St art: September 18, 2024 End: September 18, 2024 CHER Ramirez Referring Provider Active St art: September 18, 2024 End: September 18, 2024 Team Status: Inactive Member Role/Relationship Status Dates Dr. Krishna Mcdaniel DO Primary Care Provider Active Start: September 21, 2024 End: September 21, 2024 Dr. Krishna Mcdaniel DO Referring Provider Active Start: September 21, 2024 End: September 21, 2024 CHER Ramirez Attending Provider Active St art: September 21, 2024 End: September 21, 2024 Team Status: Active Member Role/Relationship Status Dates Dr. Krishna Mcdaniel DO Primary Care Provider Active Start: October 01, 2024 CHER Ramirez Attending Provider Active St art: October 01, 2024 CHER Ramirez Referring Provider Active St art: October 01, 2024 Team Status: Inactive Member Role/Relationship Status Dates Dr. Krishna Mcdaniel DO Primary Care Provider Active Start: October 04, 2024 End: October 04, 2024 CHER Ramirez Attending Provider Active St art: October 04, 2024 End: October 04, 2024 CHER Ramirez Referring Provider Active St art: October 04, 2024 End: October 04, 2024 Team Status: Inactive Member Role/Relationship Status Dates Dr. Krishna Mcdaniel DO Primary Care Provider Active Start: October 22, 2024 End: October 22, 2024 Dr. Krishna Mcdaniel DO Referring Provider Active Start: October 22, 2024 End: October 22, 2024 CHER Ramirez Attending Provider Active St art: October 22, 2024 End: October 22, 2024 Team Status: Inactive Member Role/Relationship Status Dates Dr. Krishna Mcdaniel DO Primary Care Provider Active Start: October 22, 2024 End: October 22, 2024 CHER Ramirez Attending Provider Active St art: October 22, 2024 End: October 22, 2024 CHER Ramirez Referring Provider Active St art: October 22, 2024 End: October 22, 2024 Cruise Coordinator Relationship Specialty Start Date End Date Krishna Mcdaniel DO [address] [place] [address] PCP - General Family Medicine 11/07/18 Cha Bautista RN Specialty Director [employer] 10/21/22 Katey Booker DO [address] [place] [address] Hematology/Oncology 11/15/22 Kristian Mcdaniel [address] [facility] [place] [address] Pulmonary Disease 12/30/22 Skyler Louise APRN.ENROUTE CONTROLLER [address] [facility] [address] [place], [place] [address] Cardiology 12/30/22 Arvind [address] [facility] [address] [place] [address] Urology 02/23/23 Manfred Lo MD [address] [facility] [address] [place], [place] [id number] Gastroenterology 03/21/23 Trina Bernal MD [address] [place], [place] [id number] Primary Staff Physician Cardiology 05/02/23 Cruise Coordinator Relationship Specialty Start Date End Date Krishna Mcdaniel DO [address] [place] [address] PCP - General Family Medicine 11/07/18 Cha Bautista, RN Specialty Director [employer] 10/21/22 Katey Booker DO [address] [place], [place] [address] Hematology/Oncology 11/15/22 Kristian Mcdaniel [address] [facility] [address] [place] [address] Pulmonary Disease 12/30/22 Skyler Louise APRN.ENROUTE CONTROLLER [address] [facility] [address] [place], [place] [id number] Cardiology 12/30/22 Arvind Haynes MD [address] [place], [place] [address] Urology 02/23/23 Manfred Lo MD [address] [facility] [address] [place] [address] Gastroenterology 03/21/23 Trina Bernal MD [address] [place] [address] Primary Staff Physician Cardiology 05/02/23 Team Status: Inactive Member Role/Relationship Status Dates Dr. Krishna Mcdaniel DO Primary Care Provider Active Start: July 18, 2024 End: July 18, 2024 Dr. Krishna Mcdaniel DO Attending Provider Active Start: July 18, 2024 End: July 18, 2024 Dr. Krishna Mcdaniel DO Referring Provider Active Start: July 18, 2024 End: July 18, 2024 Team Status: Inactive Member Role/Relationship Status Dates Dr. Krishna Mcdaniel DO Primary Care Provider Active Start: July 27, 2024 End: July 27, 2024 CHER Colon Attending Provider Active Start: July 27, 2024 End: July 27, 2024 CHER Colon Referring Provider Active Start: July 27, 2024 End: July 27, 2024 Team Status: Inactive Member Role/Relationship Status Dates Dr. Krishna Mcdaniel DO Primary Care Provider Active Start: August 01, 2024 End: August 03, 2024 Dr. George Jackson MD Emergency Provider Active S tart: August 01, 2024 End: August 03, 2024 Dr. Janes Pennington MD Admit Provider Active Start: August 01, 2024 End: August 03, 2024 Dr. Janes Pennington MD Other Provider Active Start: August 01, 2024 End: August 03, 2024 Dr. Fernanda Staples DO Attending Provider Active S tart: August 01, 2024 End: August 03, 2024 Team Status: Active Member Role/Relationship Status Dates Dr. Krishna Mcdaniel DO Primary Care Provider Active Start: August 01, 2024 Dr. George Jackson MD Emergency Provider Active S tart: August 01, 2024 Dr. Janes Pennington MD Admit Provider Active Start: August 01, 2024 Dr. Janes Pennington MD Attending Provider Active Start: August 01, 2024 Dr. Janes Pennington MD Other Provider Active Start: August 01, 2024 Team Status: Active Member Role/Relationship Status Dates Dr. Krishna Mcdaniel DO Primary Care Provider Active Start: August 02, 2024 Dr. George Jackson MD Emergency Provider Active S tart: August 02, 2024 Dr. Janes Pennington MD Admit Provider Active Start: August 02, 2024 Dr. Janes Pennington MD Other Provider Active Start: August 02, 2024 Dr. Fernanda Staples DO Attending Provider Active S tart: August 02, 2024 Dr. Fernanda Staples DO Other Provider Active Start : August 02, 2024 Team Status: Active Member Role/Relationship Status Dates Dr. Krishna Mcdaniel DO Primary Care Provider Active Start: August 03, 2024 Dr. George Jackson MD Emergency Provider Active S tart: August 03, 2024 Dr. Janes Pennington MD Admit Provider Active Start: August 03, 2024 Dr. Janes Pennington MD Other Provider Active Start: August 03, 2024 Dr. Fernanda Staples , Attending Provider Active S tart: August 03, 2024 Dr. Fernanda Staples , DO Other Provider Active Start : August 03, 2024 Team Status: Inactive Member Role/Relationship Status Dates Dr. Krishna Mcdaniel DO Primary Care Provider Active Start: August 14, 2024 End: August 14, 2024 Dr. Krishna Mcdaniel DO Attending Provider Active Start: August 14, 2024 End: August 14, 2024 Dr. Krishna Mcdaniel DO Referring Provider Active Start: August 14, 2024 End: August 14, 2024 Team Status: Inactive Member Role/Relationship Status Dates Dr. Krishna Mcdaniel DO Primary Care Provider Active Start: August 14, 2024 End: August 14, 2024 Dr. Krishna Mcdaniel DO Attending Provider Active Start: August 14, 2024 End: August 14, 2024 Dr. Krishna Mcdaniel DO Referring Provider Active Start: August 14, 2024 End: August 14, 2024 Team Status: Inactive Member Role/Relationship Status Dates Dr. Krishna Mcdaniel DO Primary Care Provider Active Start: September 04, 2024 End: September 04, 2024 Dr. Krishna Mcdaniel DO Referring Provider Active Start: September 04, 2024 End: September 04, 2024 Tessy Trinh EDUCATIONAL PARAPROFESSIONAL, EDUCATIONAL PARAPROFESSIONAL-C Attending Provider Active Start: September 04, 2024 End: September 04, 2024 Team Status: Inactive Member Role/Relationship Status Dates Dr. Krishna Mcdaniel DO Primary Care Provider Active Start: September 04, 2024 End: September 04, 2024 Tessy Trinh EDUCATIONAL PARAPROFESSIONAL, EDUCATIONAL PARAPROFESSIONAL-C Attending Provider Active Start: September 04, 2024 End: September 04, 2024 Tessy Tirnh EDUCATIONAL PARAPROFESSIONAL, EDUCATIONAL PARAPROFESSIONAL-C Referring Provider Active Start: September 04, 2024 End: September 04, 2024 Team Status: Inactive Member Role/Relationship Status Dates Dr. Krishna Mcdaniel DO Primary Care Provider Active Start: September 18, 2024 End: September 18, 2024 CHER Ramirez Attending Provider Active St art: September 18, 2024 End: September 18, 2024 CHER Ramirez Referring Provider Active St art: September 18, 2024 End: September 18, 2024 Team Status: Inactive Member Role/Relationship Status Dates Dr. Krishna Mcdaniel DO Primary Care Provider Active Start: September 21, 2024 End: September 21, 2024 Dr. Krishna Mcdaniel DO Referring Provider Active Start: September 21, 2024 End: September 21, 2024 CHER Ramirez Attending Provider Active St art: September 21, 2024 End: September 21, 2024 Team Status: Active Member Role/Relationship Status Dates Dr. Krishna Mcdaniel DO Primary Care Provider Active Start: October 01, 2024 CHER Ramirez Attending Provider Active St art: October 01, 2024 CHER Ramirez Referring Provider Active St art: October 01, 2024 Team Status: Inactive Member Role/Relationship Status Dates Dr. Krishna Mcdaniel DO Primary Care Provider Active Start: October 04, 2024 End: October 04, 2024 CHER Ramirez Attending Provider Active St art: October 04, 2024 End: October 04, 2024 CHER Ramirez Referring Provider Active St art: October 04, 2024 End: October 04, 2024 Team Status: Inactive Member Role/Relationship Status Dates Dr. Krishna Mcdaniel DO Primary Care Provider Active Start: October 22, 2024 End: October 22, 2024 Dr. Krishna Mcdaniel DO Referring Provider Active Start: October 22, 2024 End: October 22, 2024 CHER Ramirez Attending Provider Active St art: October 22, 2024 End: October 22, 2024 Team Status: Inactive Member Role/Relationship Status Dates Dr. Krishna Mcdaniel DO Primary Care Provider Active Start: October 22, 2024 End: October 22, 2024 CHER Ramirez Attending Provider Active St art: October 22, 2024 End: October 22, 2024 CHER Ramirez Referring Provider Active St art: October 22, 2024 End: October 22, 2024 Team Status: Inactive Member Role/Relationship Status Dates Dr. Krishna Mcdaniel DO Primary Care Provider Active Start: October 31, 2024 End: October 31, 2024 BLACK VÁZQUEZ Attending Provider Active Start: October 31, 2024 End: October 31, 2024 BLACK VÁZQUEZ Referring Provider Active Start: October 31, 2024 End: October 31, 2024 Team Status: Inactive Member Role/Relationship Status Dates Dr. Krishna Mcdaniel DO Primary Care Provider Active Start: November 07, 2024 End: November 07, 2024 Dr. Krishna Mcdaniel DO Referring Provider Active Start: November 07, 2024 End: November 07, 2024 Tessy Trinh NP, EDUCATIONAL PARAPROFESSIONAL-C Attending Provider Active Start: November 07, 2024 End: November 07, 2024 Goals (unrecognized section and content) Goals may be documented in a n alternate sectionGoals may be documented in an alternate sectionGoals may be documented in an alternate sectionGoals may be documented in an alternate sectionGoals may be documented in an alternate sectionGoals may be documented in an alternate sectionGoals may be documented in an alternate sectionGoals may be documented in an alternate sectionGoals may be documented in an alternate sectionGoals may be documented in an alternate sectionGoals may be documented in an alternate sectionGoals may be documented in an alternate section No data available for this sectionGoals may be documented in an alternate sectionGoals may be documented in an alternate section (unrecognized sect ion and content) No Status Records FoundNo Status Records FoundNo Status Records FoundNo Status Records FoundNo Status Records Found INFORMATION SOURCE (unrecogn ized section and content) DATE CREATED AUTHOR 01/29/2022 [facility] DATE CREATED AUTHOR AUTHOR'S ORGANIZ ATION 03/21/2023 [facility] ([place]) DATE CREATED AUTHOR AUTHOR'S ORGANIZ ATION 10/19/2024 [facility] DATE CREATED AUTHOR AUTHOR'S ORGANIZ ATION 11/01/2024 [facility] DATE CREATED AUTHOR AUTHOR'S ORGANIZ ATION 11/19/2024 [facility] Inactive Administered Medications - up to 3 most recent administrations Administered Medications (un recognized section and content) Medication Order MAR Action Action Date Dose Rate Site iron sucrose iv piggyback 200 mg in NaCl 0.9% 100 mL (VENOFER) 200 mg, INTRAVENOUS, at 400 mL/hr, Administer over 15 Minutes, ONCE, 1 dose, On Tue05/26/23 at 1430, Please conduct a 30 minute post dose observation. Refrigerate New Bag/Syringe/Bottle 05/26/2023 2:28 PM EST 200 mg 400 mL/hr Inactive Administered Medications - up to 3 most recent administrations Medication Order MAR Action Action Date Dose Rate Site iron sucrose iv piggyback 200 mg in NaCl 0.9% 100 mL (VENOFER) 200 mg, INTRAVENOUS, at 400 mL/hr, Administer over 15 Minutes, ONCE, 1 dose, On Tue05/30/23 at 1500, Please conduct a 30 minute post dose observation. Refrigerate New Bag/Syringe/Bottle 05/30/2023 2:40 PM EST 200 mg 400 mL/hr Inactive Administered Medications - up to 3 most recent administrations Medication Order MAR Action Action Date Dose Rate Site iron sucrose iv piggyback 200 mg in NaCl 0.9% 100 mL (VENOFER) 200 mg, INTRAVENOUS, at 400 mL/hr, Administer over 15 Minutes, ONCE, 1 dose, On Tue06/01/23 at 1500, Please conduct a 30 minute post dose observation. Refrigerate New Bag/Syringe/Bottle 06/01/2023 2:49 PM EST 200 mg 400 mL/hr Inactive Administered Medications - up to 3 most recent administrations Medication Order MAR Action Action Date Dose Rate Site iron sucrose iv piggyback 200 mg in NaCl 0.9% 100 mL (VENOFER) 200 mg, INTRAVENOUS, at 400 mL/hr, Administer over 15 Minutes, ONCE, 1 dose, On Tue06/03/23 at 1500, Please conduct a 30 minute post dose observation. Refrigerate New Bag/Syringe/Bottle 06/03/2023 2:56 PM EST 200 mg 400 mL/hr Inactive Administered Medications - up to 3 most recent administrations Medication Order MAR Action Action Date Dose Rate Site iron sucrose iv piggyback 200 mg in NaCl 0.9% 100 mL (VENOFER) 200 mg, INTRAVENOUS, at 400 mL/hr, Administer over 15 Minutes, ONCE, 1 dose, On Tue06/06/23 at 1500, Please conduct a 30 minute post dose observation. Refrigerate New Bag/Syringe/Bottle 06/06/2023 3:02 PM EST 200 mg 400 mL/hr Inactive Administered Medications - up to 3 most recent administrations Medication Order MAR Action Action Date Dose Rate Site acetaminophen 1,000 mg tab(s) (TYLENOL) 1,000 mg, ORAL, ONCE, 1 dose, On Tue07/06/23 at 0900, No more than 4000 mg of acetaminophen should be given per day (FROM ALL SOURCES), If ordered PRN for pain, patient/guardian may elect to receive this medication for higher pain levels INSTEAD of the opioid, if preferred: N/A Given 07/06/2023 8:58 AM EDT 1,000 mg daratumumab 1,800 mg - hyaluronidase-fihj 30,000 units 1,800 mg injection (DARZALEX FASPRO) 1,800 mg, SUBCUTANEOUS, ONCE, 1 dose, On Tue07/06/23 at 0900, ++FOR SUBCUTANEOUS ADMINISTRATION ONLY++ exp 209907/06/23 (room temp) EXP: (12 HR) Inject subcutaneously into subcutaneous tissue on the abdomen approximately 3 inches to the right or left of the navel over 3 to 5 minutes. Given 07/06/2023 9:39 AM EDT 1,800 mg Abdominal Tissue diphenhydrAMINE 50 mg injection (BENADRYL) 50 mg, INTRAVENOUS, ONCE, 1 dose, On Tue07/06/23 at 0900, Give prior to chemotherapy. Given 07/06/2023 9:00 AM EDT 50 mg famotidine 20 mg injection (PEPCID) 20 mg, INTRAVENOUS, ONCE, 1 dose, On Tue07/06/23 at 0900, Give prior to chemotherapy. REFRIGERATE Given 07/06/2023 8:58 AM EDT 20 mg Inactive Administered Medications - up to 3 most recent administrations Medication Order MAR Action Action Date Dose Rate Site daratumumab 1,800 mg - hyaluronidase-fihj 30,000 units 1,800 mg injection (DARZALEX FASPRO) 1,800 mg, SUBCUTANEOUS, ONCE, 1 dose, On Tue07/13/23 at 0900, ++FOR SUBCUTANEOUS ADMINISTRATION ONLY++ exp 209907/13/23 (room temp) EXP: (12 HR) Inject subcutaneously into subcutaneous tissue on the abdomen approximately 3 inches to the right or left of the navel over 3 to 5 minutes. Given 07/13/2023 10:06 AM EDT 1,800 mg Abdominal Tissue diphenhydrAMINE 50 mg injection (BENADRYL) 50 mg, INTRAVENOUS, ONCE, 1 dose, On Tue07/13/23 at 0900, Give prior to chemotherapy. Given 07/13/2023 9:59 AM EDT 50 mg famotidine 20 mg injection (PEPCID) 20 mg, INTRAVENOUS, ONCE, 1 dose, On Tue07/13/23 at 0900, Give prior to chemotherapy. REFRIGERATE Given 07/13/2023 9:59 AM EDT 20 mg zoledronic bx-[id number]-4.9NaCl 4 mg iv piggyback 100 mL (ZOMETA) 4 mg, INTRAVENOUS, Administer over 15 Minutes, ONCE, 1 dose, On Tue07/13/23 at 1030, Hazardous Potential Reproductive Risk Drug: Use appropriate PPE. New Bag/Syringe/Bot tle 07/13/2023 10:25 AM EDT 4 mg Inactive Administered Medications - up to 3 most recent administrations Medication Order MAR Action Action Date Dose Rate Site daratumumab 1,800 mg - hyaluronidase-fihj 30,000 units 1,800 mg injection (DARZALEX FASPRO) 1,800 mg, SUBCUTANEOUS, ONCE, 1 dose, On Tue07/27/23 at 0900, ++FOR SUBCUTANEOUS ADMINISTRATION ONLY++ Expires: 08/05/23 @ 1400 (refrigerated) EXP: (12 HR) Inject subcutaneously into subcutaneous tissue on the abdomen approximately 3 inches to the right or left of the navel over 3 to 5 minutes. Given 07/27/2023 9:11 AM EDT 1,800 mg Abdominal Tissue diphenhydrAMINE 50 mg capsule (BENADRYL) 50 mg, ORAL, ONCE, 1 dose, On Tue07/27/23 at 0900 Given 07/27/2023 9:05 AM EDT 50 mg famotidine 20 mg tab(s) (PEPCID) 20 mg, ORAL, ONCE, 1 dose, On Tue07/27/23 at 0900 Given 07/27/2023 9:06 AM EDT 20 mg Inactive Administered Medications - up to 3 most recent administrations Medication Order MAR Action Action Date Dose Rate Site daratumumab 1,800 mg - hyaluronidase-fihj 30,000 units 1,800 mg injection (DARZALEX FASPRO) 1,800 mg, SUBCUTANEOUS, ONCE, 1 dose, On Tue08/03/23 at 1130, ++FOR SUBCUTANEOUS ADMINISTRATION ONLY++ exp 1430 08/12/23 (refrigerated) EXP: (12 HR) Inject subcutaneously into subcutaneous tissue on the abdomen approximately 3 inches to the right or left of the navel over 3 to 5 minutes. Given 08/03/2023 11:28 AM EDT 1,800 mg Abdominal Tissue famotidine 20 mg tab(s) (PEPCID) 20 mg, ORAL, ONCE, 1 dose, On Tue08/03/23 at 1130 Given 08/03/2023 11:25 AM EDT 20 mg Inactive Administered Medications - up to 3 most recent administrations Medication Order MAR Action Action Date Dose Rate Site daratumumab 1,800 mg - hyaluronidase-fihj 30,000 units 1,800 mg injection (DARZALEX FASPRO) 1,800 mg, SUBCUTANEOUS, ONCE, 1 dose, On Tue08/10/23 at 1000, ++FOR SUBCUTANEOUS ADMINISTRATION ONLY++ Expires: 08/19/23 @ 0930 (refrigerated) EXP: (12 HR) Inject subcutaneously into subcutaneous tissue on the abdomen approximately 3 inches to the right or left of the navel over 3 to 5 minutes. Given 08/10/2023 10:19 AM EDT 1,800 mg Abdomen, LUQ famotidine 20 mg tab(s) (PEPCID) 20 mg, ORAL, ONCE, 1 dose, On Tue08/10/23 at 1000 Given 08/10/2023 9:49 AM EDT 20 mg zoledronic in-yikeppjs-8.9NaCl 4 mg iv piggyback 100 mL (ZOMETA) 4 mg, INTRAVENOUS, Administer over 15 Minutes, ONCE, 1 dose, On Tue08/10/23 at 1000, Hazardous Potential Reproductive Risk Drug: Use appropriate PPE. New Bag/Syringe/Bottl e 08/10/2023 10:19 AM EDT 4 mg FOR RECORDS PERTAINING TO PATIENTS WHO ARE OR HAVE BEEN ENROLLED IN A CHEMICAL DEPENDENCY/SUBSTANCEABUSE PROGRAM, SOME INFORMATION MAY BE OMITTED. This clinical summary was aggregated from multiple sources. Caution should be exercised in using it in the provision of clinical care. This summary normalizes information from multiple sources, and as a consequence, information in this document may materially change the coding, format and clinical context of patient data. In addition, data may be omitted in some cases. CLINICAL DECISIONS SHOULD BE BASED ON THE PRIMARY CLINICAL RECORDS. [facility] [employer] [facility]. provides no warranty or guarantee of the accuracy or completeness of information in this document.
== END | disposition home or self-care (01) ==
LOC: CVS 07:10
PROVIDERS: PCP Family Medicine; Referring Provider Student in an Organized Health Care Education/Training Program; Visit Provider Student in an Organized Health Care Education/Training Program
DX: R06.09 Other forms of dyspnea (principal); I47.20 Ventricular tachycardia, unspecified; R94.31 Abnormal electrocardiogram [ECG] [EKG]
CPT/HCPCS: 78452; 93017; 93306; A9500; A4216; J2785

== ENCOUNTER → 2025-03-01 | Outpatient (CLI) | payer MEDICARE, OTHER, SELFPAY ==
[2025-03-01 12:58] LABS: AST(SGOT) 21 U/L (<=37); Alanine Aminotransfer ALT/SGPT 19 U/L (<=46); Albumin, Serum 3.9 g/dL (3.4-4.8); Alkaline Phosphatase 168 U/L (40-129); Anion Gap 10 (5-15); BUN 15 mg/dL (4-19); BUN/Creat Ratio 19.7 RATIO (10-20); Calcium,Total 9.3 mg/dL (7.6-11.0); Carbon Dioxide 26.4 mmol/L (21.0-32.0); Chloride 103 mmol/L (98-108); Globulin 2.3 g/dL (2.2-4.2); Glucose 141 mg/dL (70-99); Potassium 4.3 mmol/L (3.3-5.1)
== END | disposition home or self-care (01) ==
LOC: MTLAB 10:21
PROVIDERS: PCP Family Medicine; Referring Provider Internal Medicine Endocrinology, Diabetes & Metabolism; Visit Provider Internal Medicine Endocrinology, Diabetes & Metabolism
DX: E11.21 Type 2 diabetes mellitus with diabetic nephropathy (principal)
CPT/HCPCS: 36415; 80053; 83036

== ENCOUNTER → 2025-04-05 | Outpatient (CLI) | payer MEDICARE, OTHER, SELFPAY ==
[2025-04-05 12:42] LABS: Anion Gap 11 (5-15); BUN 18 mg/dL (4-19); BUN/Creat Ratio 23.1 RATIO (10-20); Calcium,Total 9.0 mg/dL (7.6-11.0); Carbon Dioxide 24.9 mmol/L (21.0-32.0); Chloride 103 mmol/L (98-108); Glucose 105 mg/dL (70-99); Potassium 3.9 mmol/L (3.3-5.1)
== END | disposition home or self-care (01) ==
LOC: EPLAB 11:50
PROVIDERS: PCP Family Medicine; Visit Provider Internal Medicine Cardiovascular Disease
DX: E11.9 Type 2 diabetes mellitus without complications (principal); I27.20 Pulmonary hypertension, unspecified
CPT/HCPCS: 36415; 80048